=== PATIENT | male | born 1985 | race Caucasian/White ===

== ENCOUNTER 2024-01-20 18:26 | Emergency (ER) | payer BC ==
[2024-01-20] MEDS ORDERED: ONDANSETRON 4 MG/2 ML VIAL ONE (19:20)
[2024-01-20] MEDS ORDERED: MORPHINE 4 MG/ML SYR ONE ×3 (19:20→23:42)
[2024-01-20] MEDS ORDERED: FAMOTIDINE 20 MG/2 ML VIAL IV ONE (19:20)
[2024-01-20 19:32] LABS: Absolute Basophils 0.1 K/uL (0-0.5); Absolute Eosinophils 0.2 K/uL (0-0.5); Absolute Lymphocytes (CBC) 3.3 K/uL (0.7-4.9); Absolute Monocytes 0.6 K/uL (0.1-1.3); Absolute Neutrophil 3.7 K/uL (1.8-8.0); Basophils % 1.1 % (0-1.3); Eosinophils % 3.1 % (0-4.4); Hemoglobin 11.2 g/dL (13.6-17.9); MCH 27.3 pg (27.0-35.0); MCHC 32.9 g/dL (32.0-36.0); MPV 7.7 fL (7.6-11.3); Monocytes % 7.6 % (3.3-12.3); Neutrophils % 46.2 % (41.7-73.7); Nucleated Red Blood Cells % 0.1 % (0-0); Platelets 367 thou/uL (152-406); RBC Red Blood Cell Count 4.09 M/uL (4.33-5.43); Red Cell Distribution Width 16.4 % (12.1-15.2)
[2024-01-20 19:54] LABS: Albumin 3.4 g/dL (3.4-5.0); Albumin/Globulin Ratio 0.9 (1.1-1.8); Anion Gap 9.7 mEq/L (5.0-15.0); Bilirubin Total 0.3 mg/dL (0.2-1.0); Potassium 3.7 mEq/L (3.5-5.1); Protein, Total 7.4 g/dL (6.4-8.2)
[2024-01-20] MEDS ORDERED: FENTANYL CITR 100 MCG/2 ML ONE (20:26)
--- NOTE | 2024-01-20 21:08 | RAD REPORT ---
EXAMINATION: CT Abdomen Pelvis W Contrast CLINICAL INDICATION: Male, 38 years old. ABD PAIN TECHNIQUE: CT abdomen and pelvis was performed, after the administration of IV contrast, as per [facility] protocol. Axial, sagittal and coronal reconstructions were obtained. One or more of the following dose reduction techniques were used: Automated exposure control, adjustment of the mA and k V according to patient size, and iterative reconstruction. Unless otherwise specified, incidental findings do not require dedicated imaging follow-up. COMPARISON: No prior exam. FINDINGS: LOWER CHEST: The visualized lung bases are clear. LIVER: Normal in size and contour. No focal lesion. BILIARY SYSTEM: Status post cholecystectomy. SPLEEN: Normal size. No focal lesion. PANCREAS: No mass, ductal dilation, or kaylan-pancreatic fluid. ADRENALS: Normal; no mass. KIDNEYS: Normal size and contour. No hydronephrosis. URINARY BLADDER: Unremarkable. GASTROINTESTINAL TRACT: No evidence of free air, significant intra-abdominal free fluid, bowel obstru ction or abscess. APPENDIX: Appendix surgically absent. LYMPH NODES: No lymphadenopathy. MUSCULOSKELETAL: No acute or suspicious osseous abnormality. ADDITIONAL FINDINGS: None. IMPRESSION: No acute or concerning abnormalities seen in the abdomen or pelvis. Status post cholecystectomy and appendicectomy.
--- NOTE | 2024-01-21 01:40 | EDPHYS ---
Physician Documentation [facility] Name: Justice Joshi Age: 38 yrs Sex: Male : 1985 Arrival Date: 01/20/2024 Time: 18:26 Bed 8 Private MD: ED Physician Joey Hyde HPI: 01/19 19:47 This 38 yrs old Male presents to ER via Ambulatory with complaints of Abdominal Pain, ms3 Constipation, Vomiting. 19:47 38-year-old male with past medical history of chronic pancreatitis, asthma, anxiety ms3 presents to the emergency department for abdominal pain, nausea, vomiting. Patient states the pain is located in his left upper quadrant. He rates the pain a 9/10. He states the pain has been present for 2 weeks. He denies any alleviating or inciting factors. Patient states he had a pancreatic duct stent placed on December 20, 2023. Patient was recently admitted to [facility] on January 12, 2024 for a small bowel obstruction. Historical: - Allergies: 18:57 PENICILLINS; hb - Home Meds: 18:57 Creon oral [Active]; Albuterol Inhl [Active]; Alprazolam Oral [Active]; Bentyl Oral hb [Active]; Hydromorphone Oral [Active]; - PMHx: 18:57 Chronic Pancreatitis; hb - PSHx: 18:57 Pancreatic Stent; Cholecystectomy; Hernia Repair; Cholecystectomy; Appendectomy; hb - Immunization history:: Adult Immunizations up to date. - Infectious Disease History:: Denies. - Social history:: Smoking status: Patient reports the use of cigarette tobacco products. ROS: 19:47 Constitutional: Negative for fever, and chills. Cardiovascular: Negative for chest ms3 pain, and palpitations. Respiratory: Negative for shortness of breath, cough, wheezing, and pleuritic chest pain, 19:47 MS/Extremity: Negative for injury and deformity, Skin: Negative for injury, rash, and discoloration, 19:47 Abdomen/GI: Positive for abdominal pain, nausea and vomiting, constipation, Exam: 19:47 Constitutional: This is a well developed, well nourished patient who is awake, alert, ms3 and in no acute distress. Cardiovascular: Regular rate and rhythm with a normal S1 and S2. No gallops, murmurs, or rubs. Normal PMI, no JVD. No pulse deficits. Respiratory: Lungs have equal breath sounds bilaterally, clear to auscultation and percussion. No rales, rhonchi or wheezes noted. No increased work of breathing, no retractions or nasal flaring. Abdomen/GI: Soft, non-tender, with normal bowel sounds. No distension or tympany. No guarding or rebound. No evidence of tenderness throughout. Skin: Warm, dry with normal turgor. Normal color with no rashes, no lesions, and no evidence of cellulitis. Vital Signs: 18:55 BP 149 / 101; Pulse 80; Resp 16; Temp 98.9(O); Pulse Ox 98% on R/A; Weight 58.97 kg; hb Height 6 ft. 0 in. ; Pain 10/10; 20:34 BP 140 / 91; Pulse 57; Resp 18; Pulse Ox 97% ; Pain 10/10; br2 21:07 BP 134 / 85; Pulse 56; Resp 18 S; Pulse Ox 96% on R/A; br2 22:02 BP 143 / 84; Pulse 57; Resp 16 S; Pulse Ox 97% on R/A; lg3 23:45 BP 129 / 88; Pulse 63; Resp 18 S; Pulse Ox 99% on R/A; Pain 8/10; br2 18:55 Body Mass Index 17.63 (58.97 kg, 182.88 cm) hb 18:55 Pain Scale: Adult hb 20:34 Pain Scale: Adult br2 23:45 Pain Scale: Adult br2 MDM: 18:50 Patient medically screened. ms3 19:47 Differential diagnosis: Nonspecific abd pain, pancreatitis, Bowel obstruction. ms3 20:08 Transition of care: After a detail discussion of the patient's case, care is ms3 transferred to Joey Hyde MD. 01/20 03:37 Data reviewed: vital signs, nurses notes, lab test result(s), EKG, radiologic studies. rt Consideration of Admission/Observation Escalation of care including admission/observation considered. Patient requires transfer for GI care. Management of patient was discussed with the following: Returns Supervisor: Discussed with Dr. Araiza, states that patient may require biliary stent exchange and thus would require transfer. I considered the following discharge prescriptions or medication management in the emergency department Medications were administered in the Emergency Department. See MAR. Independent interpretation of the following test(s) in the Emergency Department CT Scan: My interpretation is No bowel obstructions and interpretation of CT scan images. Care significantly affected by the following chronic conditions: Chronic pancreatitis. Counseling: I had a detailed discussion with the patient and/or guardian regarding the historical points, exam findings, and any diagnostic results supporting the discharge/admit diagnosis, lab results, radiology results, the need to transfer to another facility. 01/19 18:46 Order name: CBC with Diff; Complete Time: 19:49 ms3 01/19 18:46 Order name: CMP; Complete Time: 19:55 ms3 01/19 18:46 Order name: Lipase; Complete Time: 19:55 ms3 01/19 18:46 Order name: CT Abd/Pelvis - IV Contrast Only; Complete Time: 21:11 ms3 01/19 18:46 Order name: IV Saline Lock; Complete Time: 19:32 ms3 01/19 18:46 Order name: Labs collected and sent; Complete Time: 19:32 ms3 Administered Medications: 01/19 19:31 Drug: Ondansetron IVP 4 mg IVP once; over 2 minutes Route: IVP; Site: left forearm; br2 21:08 Follow up: Response: No adverse reaction br2 19:31 Drug: morphine IVP or IV 4 mg IVP once over 4 mins Route: IVP; Infused Over: 4 mins; br2 Site: left forearm; 20:10 Follow up: Response: No adverse reaction; Pain is unchanged, physician notified br2 19:32 Drug: Famotidine IVP 20 mg IVP once; dilute with 10 mL 0.9% NaCl; give over 2 minutes br2 Route: IVP; Site: left forearm; 21:08 Follow up: Response: No adverse reaction br2 20:34 Drug: fentaNYL (PF) IVP 100 mcg IVP once Route: IVP; Site: left forearm; br2 21:07 Follow up: BP 134 / 85; Pulse 56 bpm; Resp 18 bpm Spontaneous; Pulse Ox 96% RA br2 21:56 Drug: morphine IVP or IV 4 mg IVP once over 4 mins Route: IVP; Infused Over: 4 mins; lg3 Site: left forearm; 22:30 Follow up: Response: No adverse reaction; Pain is decreased br2 23:44 Drug: morphine IVP or IV 4 mg IVP once over 4 mins Route: IVP; Infused Over: 4 mins; br2 Site: left forearm; 01/20 00:32 Follow up: Response: No adverse reaction; Pain is decreased br2 Disposition Summary: 01/21/24 01:39 Transfer Ordered Notes: Transfer Location: [facility] rt Reason: Higher level of care rt Condition: Fair rt Problem: an ongoing problem rt Symptoms: have improved rt Accepting Physician: Dr. Marr(01/21/24 02:39) vc1 Diagnosis - Chronic Pancreatitis rt - intractable pain rt Forms: - Medication Reconciliation Form rt - SBAR form rt Signatures: Dispatcher [employer] EDMS Elvi Valadez, RN RN Jessica Wiggins RN RN lg3 Gianfranco Collier DO DO ms3 Yanelis Porter RN RN vc1 Joey Hyde MD MD rt Lora Jones RN RN br2 Corrections: (The following items were deleted from the chart) 01/19 18:46 18:46 Abdomen Pelvis W Con+CT.RAD.BRZ ordered. EDME EDMS 01/20 02:39 01:39 Dr. Marr rt vc1
--- NOTE | 2024-01-21 01:40 | ER ---
Nurse's Notes [facility] Name: Justice Joshi Age: 38 yrs Sex: Male : 1985 Arrival Date: 01/20/2024 Time: 18:26 Bed 8 Private MD: Diagnosis: Chronic Pancreatitis;intractable pain Presentation: 01/19 18:55 Chief complaint: LUQ pain and N/V x 2 weeks. Coronavirus screen: At this time, the hb client does not indicate any symptoms associated with coronavirus-19. Ebola Screen: No symptoms or risks identified at this time. Initial Sepsis Screen: Does the patient meet any 2 criteria? No. Patient's initial sepsis screen is negative. Does the patient have a suspected source of infection? No. Patient's initial sepsis screen is negative. Risk Assessment: Do you want to hurt yourself or someone else? Patient reports no desire to harm self or others. Onset of symptoms was January 06, 2024. 18:55 Method Of Arrival: Ambulatory hb 18:55 Acuity: JOE 3 hb Historical: - Allergies: 18:57 PENICILLINS; hb - Home Meds: 18:57 Creon oral [Active]; Albuterol Inhl [Active]; Alprazolam Oral [Active]; Bentyl Oral hb [Active]; Hydromorphone Oral [Active]; - PMHx: 18:57 Chronic Pancreatitis; hb - PSHx: 18:57 Pancreatic Stent; Cholecystectomy; Hernia Repair; Cholecystectomy; Appendectomy; hb - Immunization history:: Adult Immunizations up to date. - Infectious Disease History:: Denies. - Social history:: Smoking status: Patient reports the use of cigarette tobacco products. Screenin:02 [facility] ED Fall Risk Assessment (Adult) History of falling in the last 3 months, lg3 including since admission No falls in past 3 months (0 pts) Confusion or Disorientation No (0 pts) Intoxicated or Sedated No (0 pts) Impaired Gait No (0 pts) Mobility Assist Device Used No (0 pt) Altered Elimination No (0 pt) Score/Fall Risk Level 0 - 2 = Low Risk Oriented to surroundings, Maintained a safe environment, Educated pt \T\ family on fall prevention, incl call for assistance when getting out of bed, Assessed \T\ reinforced patient's understanding of fall precautions, Provided non-skid footwear. Abuse screen: Denies threats or abuse. Denies injuries from another. Nutritional screening: No deficits noted. Tuberculosis screening: No symptoms or risk factors identified. Assessment: 19:11 Reassessment: Patient and/or family updated on plan of care and expected duration. Pain br2 level reassessed. Patient is alert, oriented x 3, equal unlabored respirations, skin warm/dry/pink. Reassessment: PT IS S/P PANCREATIC DUCT PLACEMENT ON Dec [facility]. NAUSEA/VOMITING FOR 2 WEEKS. HASN'T HAD A BM SINCE PROCEDURE, CHILLS AT NIGHT. TENDERNESS TO LUQ THAT RADIATES TO LEFT MID BACK. General: Appears uncomfortable, slender, Behavior is calm, cooperative. Pain: Complains of pain in left upper quadrant Pain radiates to left mid back Pain currently is 10 out of 10 on a pain scale. Quality of pain is described as sharp, Pain began 2-3 days ago. GI: Bowel sounds hypoactive in right upper quadrant, left upper quadrant, right lower quadrant and left lower quadrant Abdomen is tender to palpation in left upper quadrant Reports upper abdominal pain. 22:02 Reassessment: Patient appears in no apparent distress at this time. No changes from lg3 previously documented assessment. Patient and/or family updated on plan of care and expected duration. Pain level reassessed. Patient is alert, oriented x 3, equal unlabored respirations, skin warm/dry/pink. Vital Signs: 18:55 BP 149 / 101; Pulse 80; Resp 16; Temp 98.9(O); Pulse Ox 98% on R/A; Weight 58.97 kg; hb Height 6 ft. 0 in. ; Pain 10/10; 20:34 BP 140 / 91; Pulse 57; Resp 18; Pulse Ox 97% ; Pain 10/10; br2 21:07 BP 134 / 85; Pulse 56; Resp 18 S; Pulse Ox 96% on R/A; br2 22:02 BP 143 / 84; Pulse 57; Resp 16 S; Pulse Ox 97% on R/A; lg3 23:45 BP 129 / 88; Pulse 63; Resp 18 S; Pulse Ox 99% on R/A; Pain 8/10; br2 18:55 Body Mass Index 17.63 (58.97 kg, 182.88 cm) hb 18:55 Pain Scale: Adult hb 20:34 Pain Scale: Adult br2 23:45 Pain Scale: Adult br2 ED Course: 18:32 Patient arrived in ED. im 18:34 Gianfranco Collier DO is Attending Physician. ms3 18:57 Triage completed. hb 19:00 Report received from KINDRA RN. br2 19:04 Arm band placed on. hb 19:05 Lora Jones, ISAAK is Primary Nurse. br2 19:30 Inserted saline lock: 22 gauge in left forearm, using aseptic technique. Blood lg3 collected. Flushed with 10 mL NS. 19:32 CBC with Diff Sent. br2 19:32 CMP Sent. br2 19:32 Lipase Sent. br2 20:05 Attending Physician role handed off by Gianfranco Collier DO rt 20:05 Joey Hyde MD is Attending Physician. rt 20:28 CT Abd/Pelvis - IV Contrast Only In Process Unspecified. EDMS 22:02 Patient has correct armband on for positive identification. Bed in low position. Call lg3 light in reach. Side rails up X 1. Client placed on continuous cardiac and pulse oximetry monitoring. NIBP monitoring applied. awake overnight monitor on. Door closed. Noise minimized. Warm blanket given. Pillow given. 23:45 transfer approval from receiving facility. br2 01/20 02:38 Provided Education on: safety, transfer. vc1 02:38 No provider procedures requiring assistance completed. Patient transferred, IV remains vc1 in place. Administered Medications: 01/19 19:31 Drug: Ondansetron IVP 4 mg IVP once; over 2 minutes Route: IVP; Site: left forearm; br2 21:08 Follow up: Response: No adverse reaction br2 19:31 Drug: morphine IVP or IV 4 mg IVP once over 4 mins Route: IVP; Infused Over: 4 mins; br2 Site: left forearm; 20:10 Follow up: Response: No adverse reaction; Pain is unchanged, physician notified br2 19:32 Drug: Famotidine IVP 20 mg IVP once; dilute with 10 mL 0.9% NaCl; give over 2 minutes br2 Route: IVP; Site: left forearm; 21:08 Follow up: Response: No adverse reaction br2 20:34 Drug: fentaNYL (PF) IVP 100 mcg IVP once Route: IVP; Site: left forearm; br2 21:07 Follow up: BP 134 / 85; Pulse 56 bpm; Resp 18 bpm Spontaneous; Pulse Ox 96% RA br2 21:56 Drug: morphine IVP or IV 4 mg IVP once over 4 mins Route: IVP; Infused Over: 4 mins; lg3 Site: left forearm; 22:30 Follow up: Response: No adverse reaction; Pain is decreased br2 23:44 Drug: morphine IVP or IV 4 mg IVP once over 4 mins Route: IVP; Infused Over: 4 mins; br2 Site: left forearm; 01/20 00:32 Follow up: Response: No adverse reaction; Pain is decreased br2 Medication: 02:38 VIS not applicable for this client. vc1 Outcome: 01:39 ER care complete, transfer ordered by . rt 02:38 Transferred by ground EMS to [facility], Transfer form vc1 completed. X-rays sent w/ patient. 02:38 Condition: good 02:38 Instructed on the need for transfer, 02:39 Patient left the ED. vc1 Signatures: Dispatcher [employer] EDMS Elvi Valadez RN Jessica Reddy RN RN lg3 Gianfranco Collier, DO ms3 Yanelis Porter RN RN vc1 Joey Hyde MD MD rt Raquel Baca Belinda, RN RN br2 Corrections: (The following items were deleted from the chart) 01/19 19:32 19:31 Famotidine IVP 20 mg IVP in left antecubital br2 br2
[2024-01-21 03:21] VITALS: BP 129/88; O2SAT 99
== END 2024-01-21 02:39 | disposition short-term general hospital (02) ==
LOC: ER 18:26
DX: K86.1 Other chronic pancreatitis (principal); Z96.89 Presence of other specified functional implants; Z72.0 Tobacco use
CPT/HCPCS: 85025; 36415; 83690; 80053; 74177; Q9967; J3010; J2405

== ENCOUNTER 2024-01-23 17:19 | Emergency (ER) | payer BC ==
[2024-01-23] MEDS ORDERED: KETOROLAC 30 MG/ML INJ ONE (17:47)
[2024-01-23 17:53] LABS: Absolute Basophils 0.1 K/uL (0-0.5); Absolute Eosinophils 0.2 K/uL (0-0.5); Absolute Lymphocytes (CBC) 2.6 K/uL (0.7-4.9); Absolute Monocytes 0.7 K/uL (0.1-1.3); Absolute Neutrophil 4.1 K/uL (1.8-8.0); Basophils % 0.8 % (0-1.3); Hematocrit 37.6 % (39.6-49.0); Hemoglobin 12.3 g/dL (13.6-17.9); Lymphocytes % 34.4 % (15.3-44.8); MCH 27.2 pg (27.0-35.0); MCHC 32.6 g/dL (32.0-36.0); MCV 83.5 fL (80-100); MPV 7.8 fL (7.6-11.3); Monocytes % 8.9 % (3.3-12.3); Neutrophils % 53.9 % (41.7-73.7); Platelets 448 thou/uL (152-406); RBC Red Blood Cell Count 4.51 M/uL (4.33-5.43); Red Cell Distribution Width 16.1 % (12.1-15.2)
[2024-01-23] MEDS ORDERED: MORPHINE 4 MG/ML SYR ONE ×2 (18:07→19:15)
[2024-01-23 18:10] LABS: ALT/SGPT 33 U/L (16-61); AST/SGOT 16 U/L (15-37); Alkaline Phosphatase 73 U/L (45-117); BUN Blood Urea Nitrogen 14 mg/dL (7-18); Bicarbonate 28 mEq/L (21-32); Bilirubin Total 0.3 mg/dL (0.2-1.0); Globulin 4.1 g/dL (2.3-3.5); Glomerular Filtration Rate 104 ml/min (=/>90); Glucose Level 111 mg/dL (74-106); Lipase 101 U/L (13-75); Protein, Total 8.1 g/dL (6.4-8.2); Sodium Level 140 mEq/L (136-145); Troponin High Sensitivity 3.6 pg/mL (<58.9)
[2024-01-23 18:13] LABS: Bilirubin Direct < 0.2 mg/dL (0-0.2); Bilirubin Indirect, Calculated 0.1 mg/dL (0.2-0.8)
--- NOTE | 2024-01-23 18:16 | RAD REPORT ---
Procedure: Chest Single View History: Chest pain Comparison: none Findings: The lungs are hyperaerated. The lungs appear clear of acute infiltrate. No significant pleural effusion noted. The heart is normal size. IMPRESSION: No acute abnormality is displayed.
--- NOTE | 2024-01-23 20:13 | RAD REPORT ---
EXAMINATION: CTA CHEST PE CLINICAL INDICATION: Chest pain TECHNIQUE: 100 cc 370 Isovue administered intravenously. This examination was performed according to an angiographic protocol with 3D post-processing. This involves 3D reconstructions, MIPs, volume rendered images and/or shaded surface rendering. One or more of the following dose reduction techniqu es were used: Automated exposure control, adjustment of the mA and/or kV according to patient size, and/or iterative reconstruction. Unless otherwise specified, incidental findings do not require dedic ated imaging follow-up. [id number]. COMPARISON: No prior exam. FINDINGS: A pulmonary embolus is not seen. The aortic root measures 4.5 cm. No pleural effusion. No pericardial effusion. Lungs are clear. 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
--- NOTE | 2024-01-23 20:55 | EDPHYS ---
Physician Documentation [facility] Name: Justice Joshi Age: 38 yrs Sex: Male : 1985 Arrival Date: 01/23/2024 Time: 17:19 Bed 14 Private MD: ED Physician Spike Jain HPI: 01/22 17:54 This 38 yrs old Male presents to ER via Ambulatory with complaints of chest pain. rt 17:54 Patient presents to the ED with chest pain, radiating to the back. Patient states that rt he feels that his heart is racing when he stands up. He denies other acute complaints at this time, symptoms are moderate in severity, no other aggravating relieving factors.. Historical: - Allergies: 17:32 PENICILLINS; mb9 - Home Meds: 17:32 Hydromorphone Oral [Active]; mb9 - PMHx: 17:32 Chronic Pancreatitis; mb9 - PSHx: 17:32 Cholecystectomy; Appendectomy; Cholecystectomy; hernia repair; pancreatic stent; mb9 - Immunization history:: Adult Immunizations up to date. - Infectious Disease History:: Denies. - Social history:: Smoking status: Patient denies any tobacco usage or history of. - Family history:: not pertinent. ROS: 17:54 Constitutional: Negative for fever, chills, and weight loss, Respiratory: Negative for rt shortness of breath, cough, wheezing, and pleuritic chest pain, Abdomen/GI: Negative for abdominal pain, nausea, vomiting, diarrhea, and constipation, MS/Extremity: Negative for injury and deformity, Skin: Negative for injury, rash, and discoloration, Neuro: Negative for headache, weakness, numbness, tingling, and seizure, 17:54 Cardiovascular: Positive for chest pain, palpitations, Exam: 17:54 Constitutional: This is a well developed, well nourished patient who is awake, alert, rt and in no acute distress. Head/Face: Normocephalic, atraumatic. Chest/axilla: Normal chest wall appearance and motion. Nontender with no deformity. No lesions are appreciated. Cardiovascular: Regular rate and rhythm with a normal S1 and S2. No gallops, murmurs, or rubs. Normal PMI, no JVD. No pulse deficits. Respiratory: Lungs have equal breath sounds bilaterally, clear to auscultation and percussion. No rales, rhonchi or wheezes noted. No increased work of breathing, no retractions or nasal flaring. Abdomen/GI: Soft, non-tender, with normal bowel sounds. No distension or tympany. No guarding or rebound. No evidence of tenderness throughout. Skin: Warm, dry with normal turgor. Normal color with no rashes, no lesions, and no evidence of cellulitis. MS/ Extremity: Pulses equal, no cyanosis. Neurovascular intact. Full, normal range of motion. Neuro: Awake and alert, GCS 15, oriented to person, place, time, and situation. Cranial nerves II-XII grossly intact. Motor strength 5/5 in all extremities. Sensory grossly intact. Cerebellar exam normal. Normal gait. 18:07 ECG was reviewed by the Attending Physician. rt Vital Signs: 17:30 BP 149 / 95; Pulse 74; Resp 16; Temp 98; Pulse Ox 100% on R/A; mb9 18:22 BP 144 / 99; Pulse 77; Resp 17; Pulse Ox 99% on R/A; rs5 19:00 BP 144 / 118; Pulse 69; Resp 18; Pulse Ox 98% ; cp4 19:30 BP 97 / 83; Pulse 66; Resp 18; Pulse Ox 97% ; cp4 20:57 BP 113 / 86; Pulse 67; Resp 18; Pulse Ox 99% ; cp4 [place] Coma Score: 01/23 04:35 Eye Response: spontaneous(4). Motor Response: obeys commands(6). Verbal Response: sp4 oriented(5). Total: 15. MDM: 01/22 17:35 Patient medically screened. rt 17:36 Patient medically screened. rt 01/23 04:36 Differential Diagnosis altered mental status, sepsis, flu, Pancreatitis . Data sp4 reviewed: vital signs, nurses notes, old medical records, lab test result(s), EKG, radiologic studies, CT scan. Consideration of Admission/Observation Escalation of care including admission/observation considered. ED course: Patient was informed that he has unusual findings of dilated aortic root on his CT. Placed follow-up with additional Vascular Surgery. . ED course: EXAMINATION: CTA CHEST PE CLINICAL INDICATION: Chest pain TECHNIQUE: 100 cc 370 Isovue administered intravenously. This examination was performed according to an angiographic protocol with 3D post-processing. This involves 3D reconstructions, MIPs, volume rendered images and/or shaded surface rendering. One or more of the following dose reduction techniques were used: Automated exposure control, adjustment of the mA and/or kV according to patient size, and/or iterative reconstruction. Unless otherwise specified, incidental findings do not require dedicated imaging follow-up. [id number]. COMPARISON: No prior exam. FINDINGS: A pulmonary embolus is not seen. The aortic root measures 4.5 cm. No pleural effusion. No pericardial effusion. Lungs are clear. 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 ED course: Was advised to transfer to [facility] for additional evaluation. Patient declined and decided to go home. Form Informed discharge was provided. 01/22 17:41 Order name: Basic Metabolic Panel; Complete Time: 18:14 rt 01/22 17:41 Order name: CBC with Diff; Complete Time: 18:02 rt 01/22 17:41 Order name: LFT's; Complete Time: 18:14 rt 01/22 17:41 Order name: Troponin HS; Complete Time: 18:14 rt 01/22 17:41 Order name: Lipase; Complete Time: 18:14 rt 01/22 19:10 Order name: Troponin High Sensitivity; Complete Time: 19:46 rt 01/22 17:41 Order name: XRAY Chest (1 view); Complete Time: 18:29 rt 01/22 19:10 Order name: CT Chest For PE Angio; Complete Time: 20:16 rt 01/22 17:41 Order name: EKG; Complete Time: 17:41 rt 01/22 17:41 Order name: Cardiac monitoring; Complete Time: 17:47 rt 01/22 17:41 Order name: EKG - Nurse/Tech; Complete Time: 17:47 rt 01/22 17:41 Order name: IV Saline Lock; Complete Time: 17:47 rt 01/22 17:41 Order name: Labs collected and sent; Complete Time: 17:47 rt 01/22 17:41 Order name: O2 Per Protocol; Complete Time: 17:47 rt 01/22 17:41 Order name: O2 Sat Monitoring; Complete Time: 17:47 rt EC/11 18:07 Rate is 70 beats/min. Rhythm is regular, Normal Sinus Rhythm with No ectopy, LVH rt present. QRS [place] is Normal. AL interval is normal. QRS interval is normal. QT interval is normal. No Q waves. T waves are Normal. No ST changes noted. Interpreted by me. Administered Medications: 17:50 Drug: Ketorolac IVP 15 mg IVP once Route: IVP; Site: left forearm; rs5 18:12 Follow up: Response: No adverse reaction; Pain is unchanged, physician notified rs5 18:14 Drug: morphine IVP or IV 4 mg IVP once over 4 mins Route: IVP; Infused Over: 4 mins; rs5 Site: left forearm; 18:21 Follow up: Response: No adverse reaction; Pain is decreased rs5 19:22 Drug: morphine IVP or IV 4 mg IVP once over 4 mins Route: IVP; Infused Over: 4 mins; cp4 Site: right forearm; 19:40 Follow up: Response: No adverse reaction; Pain is decreased cp4 Disposition Summary: 01/23/24 20:54 Discharge Ordered Problem: new sp4 Symptoms: have improved sp4 Condition: Stable sp4 Diagnosis - Chest pain, unspecified sp4 - Aortic Root Dilation , Non cardiac chest pain sp4 Followup: sp4 - With: Abhay Linn MD - When: 7 - 10 days - Reason: Recheck today's complaints Discharge Instructions: - Discharge Summary Sheet sp4 - Nonspecific Chest Pain, Adult, [id number] sp4 Forms: - Patient Portal Instructions sp4 Signatures: Dispatcher [employer] Rasheeda Beyer RN RN mb9 Joey Hyde MD MD rt Gamaliel Arce RN RN rs5 Spike Jain MD MD sp4 Desirae Trinh cp4
--- NOTE | 2024-01-23 20:55 | ER ---
Nurse's Notes [facility] Name: Justice Joshi Age: 38 yrs Sex: Male : 1985 Arrival Date: 01/23/2024 Time: 17:19 Bed 14 Private MD: Diagnosis: Chest pain, unspecified;Aortic Root Dilation , Non cardiac chest pain Presentation: 01/22 17:30 Chief complaint: EMS states: "toned out for chest pain that started today and radiates mb9 to left side of back. Pt states he's had urinary frequency with little output for the past week.". Coronavirus screen: Vaccine status: Patient reports being unvaccinated. Ebola Screen: No symptoms or risks identified at this time. Initial Sepsis Screen: Does the patient meet any 2 criteria? No. Patient's initial sepsis screen is negative. Does the patient have a suspected source of infection? No. Patient's initial sepsis screen is negative. Risk Assessment: Do you want to hurt yourself or someone else? Patient reports no desire to harm self or others. Onset of symptoms was January 23, 2024. 17:30 Acuity: JOE 3 mb9 17:30 Method Of Arrival: Ambulatory mb9 Historical: - Allergies: 17:32 PENICILLINS; mb9 - Home Meds: 17:32 Hydromorphone Oral [Active]; mb9 - PMHx: 17:32 Chronic Pancreatitis; mb9 - PSHx: 17:32 Cholecystectomy; Appendectomy; Cholecystectomy; hernia repair; pancreatic stent; mb9 - Immunization history:: Adult Immunizations up to date. - Infectious Disease History:: Denies. - Social history:: Smoking status: Patient denies any tobacco usage or history of. - Family history:: not pertinent. Screenin:26 [facility] ED Fall Risk Assessment (Adult) History of falling in the last 3 months, rs5 including since admission No falls in past 3 months (0 pts) Confusion or Disorientation No (0 pts) Intoxicated or Sedated No (0 pts) Impaired Gait No (0 pts) Mobility Assist Device Used No (0 pt) Altered Elimination No (0 pt) Score/Fall Risk Level 0 - 2 = Low Risk Oriented to surroundings, Maintained a safe environment. Abuse screen: Denies threats or abuse. Nutritional screening: No deficits noted. Tuberculosis screening: No symptoms or risk factors identified. Assessment: 17:26 General: Appears distressed, uncomfortable, Behavior is calm, cooperative. Pain: rs5 Complains of pain in chest Pain currently is 8 out of 10 on a pain scale. Quality of pain is described as aching, Is continuous. Neuro: Level of Consciousness is awake, alert, obeys commands, Oriented to person, place, time, situation. Cardiovascular: Patient's skin is warm and dry. Respiratory: Airway is patent Respiratory effort is even, unlabored, Respiratory pattern is regular, symmetrical. GI: Abdomen is round non-distended, Abd is soft and non tender X 4 quads. : No signs and/or symptoms were reported regarding the genitourinary system. EENT: No signs and/or symptoms were reported regarding the EENT system. Derm: Skin is intact, Skin is pink, warm \\T\\ dry. Musculoskeletal: Range of motion: intact in all extremities. 18:21 Reassessment: Patient and/or family updated on plan of care and expected duration. Pain rs5 level reassessed. Patient is alert, oriented x 3, equal unlabored respirations, skin warm/dry/pink. 19:00 Reassessment: Patient requesting pain medication. Provider notified. cp4 20:44 Reassessment: Patient states he is ready to go elsewhere due to still being in pain. cp4 Provider notified. Vital Signs: 17:30 BP 149 / 95; Pulse 74; Resp 16; Temp 98; Pulse Ox 100% on R/A; mb9 18:22 BP 144 / 99; Pulse 77; Resp 17; Pulse Ox 99% on R/A; rs5 19:00 BP 144 / 118; Pulse 69; Resp 18; Pulse Ox 98% ; cp4 19:30 BP 97 / 83; Pulse 66; Resp 18; Pulse Ox 97% ; cp4 20:57 BP 113 / 86; Pulse 67; Resp 18; Pulse Ox 99% ; cp4 Peterson Coma Score: 01/23 04:35 Eye Response: spontaneous(4). Motor Response: obeys commands(6). Verbal Response: sp4 oriented(5). Total: 15. ED Course: 01/22 17:25 Patient arrived in ED. rs5 17:26 Patient has correct armband on for positive identification. Placed in gown. Bed in low rs5 position. Call light in reach. Side rails up X2. 17:26 No provider procedures requiring assistance completed. rs5 17:29 Joey Hyde MD is Attending Physician. rt 17:32 Triage completed. mb9 17:33 Arm band placed on. mb9 17:33 Inserted saline lock: 22 gauge in left forearm, using aseptic technique. Blood mb9 collected. Flushed with 10 mL NS. 17:46 Lipase Sent. em1 17:46 Basic Metabolic Panel Sent. em1 17:46 CBC with Diff Sent. em1 17:46 LFT's Sent. em1 17:46 Troponin HS Sent. em1 17:46 Initial lab(s) drawn, by ne, sent to lab. Inserted saline lock: 20 gauge in right em1 forearm, using aseptic technique. Blood collected. Flushed with 10 mL NS. 17:52 Gamaliel Arce, RN is Primary Nurse. rs5 18:13 XRAY Chest (1 view) In Process Unspecified. EDMS 19:53 CT Chest For PE Angio In Process Unspecified. EDMS 20:21 Attending Physician role handed off by Joey Hyde MD sp4 20:21 Spike Jain MD is Attending Physician. sp4 20:53 Abhay Linn MD is Referral Physician. sp4 21:01 Provided Education on: chest pain. cp4 21:01 intact, bleeding controlled, No redness/swelling at site. Pressure dressing applied. cp4 Administered Medications: 17:50 Drug: Ketorolac IVP 15 mg IVP once Route: IVP; Site: left forearm; rs5 18:12 Follow up: Response: No adverse reaction; Pain is unchanged, physician notified rs5 18:14 Drug: morphine IVP or IV 4 mg IVP once over 4 mins Route: IVP; Infused Over: 4 mins; rs5 Site: left forearm; 18:21 Follow up: Response: No adverse reaction; Pain is decreased rs5 19:22 Drug: morphine IVP or IV 4 mg IVP once over 4 mins Route: IVP; Infused Over: 4 mins; cp4 Site: right forearm; 19:40 Follow up: Response: No adverse reaction; Pain is decreased cp4 Medication: 18:22 VIS not applicable for this client. rs5 Outcome: 20:54 Discharge ordered by . sp4 21:01 Discharged to home ambulatory, cp4 21:01 Condition: stable 21:01 Discharge instructions given to Patient left prior to receiving discharge papers. Instructed on 21:02 Patient left the ED. cp4 Signatures: Dispatcher [employer] Octavio Vicente em1 Rasheeda Coto, RN RN mb9 Joey Hyde MD MD rt Gamaliel Arce RN RN rs5 Spike Jain MD MD sp4 Desirae Trinh cp4 Corrections: (The following items were deleted from the chart) 18:19 17:50 Ketorolac IVP 15 mg IVP in left hand rs5 rs5 18:20 18:14 morphine IVP or IV 4 mg IVP in right forearm over 4 mins mb9 rs5
[2024-01-24 00:50] VITALS: TEMP 98
[2024-01-24 01:05] VITALS: BP 113/86; O2SAT 99
--- NOTE | 2024-01-29 12:16 | EKG ---
Test Date: 2024-01-23 Test Time: 18:00:36 Lead Programmer: JAQUELINE MEASUREMENT RESULTS: Intervals: Rate: 70 [place]: 100 QRSD: 96 QT: 362 QTc: 390 [place]: P: 45 MO: 100 QRS: 81 T: 63 INTERPRETIVE STATEMENTS: Sinus rhythm with short MO Voltage criteria for left ventricular hypertrophy Abnormal ECG No previous ECG available for comparison Electronically Signed On 01-29-24 12:00:55 CDT by William Woodall
== END 2024-01-23 21:02 | disposition home or self-care (01) ==
LOC: ER 17:19
DX: I77.819 Aortic ectasia, unspecified site (principal); R07.89 Other chest pain
CPT/HCPCS: 93005; 85025; 80048; 36415; 80076; 84484 ×2; 83690; 71275; 71045; Q9967; 99284

== ENCOUNTER 2024-01-28 15:12 | Inpatient (IN) | payer BC ==
--- OUTSIDE RECORDS SUMMARY | 2024-01-28 15:23 | XMS REPORT | Continuity of Care Document ---
Author Name Unknown Address [address] [facility] [place] [address] [facility] thconnect Address [address] [facility] [place] [address] Support Name Relationship Address Phone [place] [address] [place] [address] NONE, OTHER Personal Relationship [id number] [facility] [address] [place] [address] YOSELIN CHU OT [address] [place] [address] NONE, OTHER OT [address] [place] [address] NONE, SELF SA [address] [facility] [place] [address] NONE, PER PATIENT REQUEST SA [address] [place] [address] NONE, OTHER OT [address] [place] [address] NONE, NONE SA [address] [facility] [place] [address] NONE, GIVEN SA [address] [facility] [place] [address] WOOD OZUNA SI [address] [facility] [place] [address] KAREEN RIVAS OT [address] [place] [address] SADAF BENDER Personal Relationship [address] [place] [address] WILMER [place] [address] NONE, GIVEN Personal Relationship [address] [place] [address] NONE, GIVEN Personal Relationship [address] [place] [address] NONE, GIVEN SA [address] [place] [address] YOSELIN CHU OT [address] [place] [address] NONE, GIVEN SA [address] [place] [address] Care Team Providers Care Fruit Canner Name Role Phone Fahad Mock Attending Clinician Unavailable Edu Cantor Attending Clinician Unavailable Jerzy Day Attending Clinician UnavailHenry Hermosillo Attending Clinician Unavailable Thor Brown Attending Clinician Unavailable Jean Paul Lynch Attending Clinician Unavailabl Viktoriya Sylvester Attending Clinician Unavailabl Gt Marshall Attending Clinician Unavaila Michele Miller Attending Clinician Unavailable Aretha Diallo Attending Clinician Unavailable Preston Escobar Attending Clinician Unavailable Iggy Copeland Attending Clinician Unavailable Deep Berg Attending Clinician Unavailable Joselin Garcia Attending Clinician U navailable Physician, No Primary or Family Attending Clinic fang Unavailable Lelo Brand Attending Clinician Unavailab Musa Edmond Attending Clinician Unavailable Madi Clark Attending Clinician Unavail able Corie Casas Attending Clinician Unavailable Tha Grant Attending Clinician Unavailabl Emre Luo I Attending Clinician UnavailEdu Hector Attending Clinician Unavailable Sheikh Hurtado Attending Clinician Unavailable Chava Caputo Attending Clinician Unavailabl Ila Malik Attending Clinician Unavailable Fei Diaz Attending Clinician Unavailab Vin Plummer Attending Clinician Unavailable Thor Olmedo V Attending Clinician Unavailab Maurice Craig Attending Clinician Unavaila Loi Mccollum Attending Clinician Unavailabl e Physician, No Primary or Family Admitting Clinic fang Unavailable Fahad Mock Admitting Clinician Unavailable Jerzy Day Admitting Clinician UnavailHenry Hermosillo Admitting Clinician Unavailable Tan Zayas Admitting Clinician Unavailable Fei Henderson Admitting Clinician Unavailable Amrit Edmondson Admitting Clinician Unavailable Wade Walters Admitting Clinician Unavailable Preston Escobar Admitting Clinician Unavailable Robin Fernandez Admitting Clinician Unavailable Fani Gibson Admitting Clinician Unavailable Emre Dickson I Admitting Clinician UnavailGonzalez Aldridge Admitting Clinician Unavaila Sheikh Kim Admitting Clinician Unavailable Ila Horvath Admitting Clinician Unavailable Narciso Vee Admitting Clinician Unavailable Lio Wahl Admitting Clinician Unavailabl e Payers Payer Name Policy Type Policy Number Effective Date Expirati on Date Source Allergies, Adverse Reactions, Alerts Allergy Name Allergy Type Status Severity Reaction(s) Onset Date Inactive Date Treating Clinician Comments Source Penicill ins DA Active SV THROAT SWELLS UP 2023-0 9-28 00:00: 00 [facility] Penicill ins DA Active SV THROAT SWELLS UP 2023-0 9-04 00:00: 00 [facility] Penicill ins DA Active SV THROAT SWELLS UP 2023-0 3-18 00:00: 00 [facility] Penicill ins DA Active SV THROAT SWELLS UP 2023-0 3-14 00:00: 00 [facility] Penicill ins DA Active SV THROAT SWELLS UP 2021-0 9-12 00:00: 00 [facility] Penicill ins DA Active SV THROAT SWELLS UP 2020-1 0-18 00:00: 00 [facility] Penicill ins DA Active SV 2020-1 0-18 00:00: 00 [facility] Penicill ins DA Active SV 2020-0 1-20 00:00: 00 [facility] Penicill ins DA Active SV THROAT SWELLS UP 2020-0 1-20 00:00: 00 [facility] Penicill ins DA Active SV 2018-0 3-24 00:00: 00 [facility] Penicill ins DA Active SV THROAT SWELLS UP 2017-0 3-24 00:00: 00 [facility] Procedures Procedure Date / Time Performed Performing Clinicia n Source [id number] 2023-12-20 00:00:00 JESSICA [facility] [id number] 2023-12-20 00:00:00 NAKULZE [facility] [id number] 2023-10-24 00:00:00 ESE [facility] [id number] 2023-10-24 00:00:00 LEEGA [facility] [id number] 2023-06-30 00:00:00 JEROM [facility] [id number] 2023-06-30 00:00:00 JEROM [facility] [id number] 2023-06-30 00:00:00 JEROM [facility] [id number] 2023-02-06 00:00:00 ACHSI [facility] [id number] 2023-02-06 00:00:00 ACHSI [facility] [id number] 2023-02-06 00:00:00 [facility]CHSI [facility] [id number] 2023-02-06 00:00:00 [facility]CHSI [facility] [id number] 2022-11-11 00:00:[address] [facility] [id number] 2022-11-11 00:00:[address] [facility] Encounters Start Date/Time End Date/Time Encounter Type Admission Type Attending Clinicians Care Facility Care Department Encounter ID Source 2020-08-12 04:40:07 Inpatient HCABM HCABM [id number] 26 [facility] 2020-08-03 21:57:49 Inpatient HCABM HCABM [id number] 89 [facility] 2020-07-28 21:08:01 Inpatient HCABM HCABM [id number] 37 [facility] 2020-05-04 21:34:00 Inpatient HCABM SARAY [id number] 11 [facility] 2020-05-03 11:16:00 Inpatient HCABM SARAY [id number] 08 [facility] 2020-02-21 11:02:00 Inpatient HCACL SARAY [id number] 38 [facility] 2020-01-27 11:41:00 Inpatient EL Fahad Mock HCACL ADMI [id number] 37 [facility] 2020-01-07 11:04:00 Inpatient HCACL SARAY [id number] 06 [facility] 2019-10-06 18:49:00 Inpatient HCABM FERS [id number] 80 [facility] 2019-09-01 10:41:00 Inpatient Edu Mauricio HCABM OPLA [id number] 85 [facility] 2019-08-24 17:51:00 Inpatient HCABM FERS [id number] 53 [facility] 2019-08-23 16:57:00 Inpatient HCABM FERS [id number] 10 [facility] 2024-01-24 17:43:00 2024-01-27 12:44:00 Inpatient EM ShayJerzy HCACL MEDI.01 [id number] 61 [facility] 2024-01-12 09:20:00 2024-01-15 09:52:00 Inpatient EM Henry Mares HCACL MEDI.01 [id number] 60 [facility] 2023-12-18 10:42:00 2023-12-21 13:42:00 Inpatient EM CoreyhattieHenry nuñez HCACL MEDI.01 [id number] 45 [facility] 2023-12-09 15:16:00 2023-12-09 19:00:00 Emergency EM Thor Brown HCACL SARAY [id number] 82 [facility] 2023-12-02 16:11:00 2023-12-03 07:23:00 Inpatient EM Patrick Daytaco HCACL MEDI.01 [id number] 44 [facility] 2023-11-23 05:56:00 2023-11-23 11:33:00 Inpatient EM Jean Paul Lynch HCABM MEDI [id number] 72 [facility] 2023-11-01 22:55:00 2023-11-02 00:55:00 Emergency EM Viktoriya Sawyer HCABM SARAY [id number] 41 [facility] 2023-11-01 12:40:00 2023-11-01 15:16:00 Emergency EM Manish Russell Gt HCABM SARAY [id number] 70 [facility] 2023-11-01 00:38:00 2023-11-01 02:30:00 Emergency EM Michele Rowe HCABM SARAY [id number] 79 [facility] 2023-10-20 04:37:00 2023-10-24 10:13:00 Inpatient EM Aretha Diallo HCACL MEDI.01 [id number] 25 [facility] 2023-09-08 16:44:00 2023-09-08 17:04:00 Emergency EM Hammondprateek RussellGt [facility] [id number] 99 [facility] 2023-09-05 01:55:00 2023-09-05 08:27:00 Inpatient EM Preston Escobar [facility] [id number] 75 [facility] 2023-09-04 21:33:00 2023-09-04 23:52:00 Emergency EM Iggy Copeland HCABM SARAY [id number] 55 [facility] 2023-09-03 23:16:00 2023-09-04 09:01:00 Inpatient EM Preston Escobar [facility] [id number] 94 [facility] 2023-09-02 21:52:00 2023-09-03 01:51:00 Emergency EM Deep Berg HCACL SARAY [id number] 28 [facility] 2023-08-16 19:33:00 2023-08-17 00:58:00 Emergency EM Eugenia-Joselin Davis HCACL SARAY [id number] 71 [facility] 2023-08-10 12:38:00 2023-08-10 14:02:00 Emergency EM Gt Smallwood HCABM SARAY [id number] 59 [facility] 2023-07-31 22:25:00 2023-08-02 09:23:00 Inpatient EM Preston Escobar HCABM MEDI [id number] 78 [facility] 2023-07-26 18:38:00 2023-07-26 18:38:00 Outpatient Physician, Kristi HCACL LABO [id number] 17 [facility] 2023-07-25 23:45:00 2023-07-26 03:21:00 Emergency EM Lelo Brand HCACL SARAY [id number] 12 [facility] 2023-07-13 17:37:00 2023-07-14 08:06:00 Inpatient EM SuzanHenry HCACL MEDI.01 [id number] 91 [facility] 2023-07-08 14:23:00 2023-07-08 17:47:00 Emergency EM Gt Smallwood HCABM SARAY [id number] 46 [facility] 2023-07-06 21:11:00 2023-07-06 23:17:00 Emergency EM Musa Langford HCACL SARAY [id number] 90 [facility] 2023-07-03 20:52:00 2023-07-03 21:42:00 Emergency EM Madi Clark HCABM SARAY [id number] 92 [facility] 2023-06-30 13:31:00 2023-06-30 20:53:00 Inpatient EM Scottie Maresod HCACL INTE [id number] 35 [facility] 2023-06-26 18:51:00 2023-06-26 23:41:00 Emergency EM Augusto Corie HCABM SARAY [id number] 37 [facility] 2023-06-23 20:13:00 2023-06-23 22:15:00 Emergency EM Michele Rowe HCABM SARAY [id number] 31 [facility] 2023-06-17 12:05:00 2023-06-17 15:00:00 Emergency EM Rudy, Tha [facility] SARAY [id number] 22 [facility] 2023-06-14 15:28:00 2023-06-14 16:21:00 Emergency EM Gt Smallwood [facility] SARAY [id number] 25 [facility] 2023-05-13 21:55:00 2023-05-13 23:43:00 Emergency EM Madi Clark [facility] SARAY [id number] 03 [facility] 2023-04-24 23:07:00 2023-04-24 23:30:00 Emergency EM Viktoriya Sawyer [facility] [id number] 04 [facility] 2023-03-12 20:18:00 2023-03-13 00:08:00 Emergency EM Lelo Brand [facility] SARAY [id number] 14 [facility] 2023-02-06 23:23:00 2023-02-07 14:29:00 Inpatient EM Gilmar MurcianezEmre HCACL INTE [id number] [facility] 2023-02-02 16:43:00 2023-02-03 09:24:00 Inpatient EM Preston Escobar [facility] MEDI [id number] 83 [facility] 2023-01-30 18:15:00 2023-01-30 22:37:00 Emergency EM Michele Rowe [facility] SARAY [id number] 10 [facility] 2022-11-13 05:16:00 2022-11-13 05:16:00 Outpatient Edu Esteban [facility] DAYS [id number] 83 [facility] 2022-11-11 11:53:00 2022-11-12 08:33:00 Inpatient EM OrthodoxySheik panh [facility] INTE [id number] 11 [facility] 2022-10-31 21:15:00 2022-11-01 01:53:00 Emergency EM Al Caputoo [facility] SARAY [id number] 75 [facility] 2022-10-30 19:19:00 2022-10-30 22:20:00 Emergency EM Madi Clark HCABM SARAY [id number] 22 [facility] 2022-10-09 22:44:00 2022-10-10 00:48:00 Emergency EM Iggy Copeland [facility] [id number] 12 [facility] 2022-07-13 21:51:00 2022-07-15 12:29:00 Inpatient EM Ila Horvath [facility] [id number] 10 [facility] 2021-12-24 17:29:00 2021-12-24 21:23:00 Emergency EM Fei Diaz [facility] [id number] 94 [facility] 2021-04-24 05:15:00 2021-04-24 05:57:00 Emergency EM Vin Caldera [facility] F[facility] [id number] 75 [facility] 2021-03-05 01:21:00 2021-03-05 02:50:00 Emergency EM Jae Michele [facility] [id number] 79 [facility] 2021-01-29 16:51:00 2021-01-29 17:25:00 Inpatient EM Thor Olmedo [facility] F[facility] [id number] 26 [facility] 2019-09-01 13:08:00 2019-09-01 13:08:00 Outpatient Edu Cantor [facility] LABO [id number] 20 [facility] 2017-06-13 20:34:00 2017-06-13 20:53:00 Emergency EM Huggins, Maurice [facility] [id number] 99 [facility] 2014-02-13 12:41:00 2014-02-14 14:33:00 Inpatient Loi Gregory [facility] [id number] 37 [facility] Results Test Description Test Time Test Comments Results Result Co mments Source BASIC METABOLIC [id number] 05:57:00* Test Item Value Reference Range Interpretation Comme nts SODIUM (test code = NA) 141 mEq/L 134-147 N POTASSIUM (test code = K) 4.2 mEq/L 3.4-5.0 N CHLORIDE (test code = CL) 110 mEq/L 100-108 H CARBON DIOXIDE (test code = CO2) 25 mEq/l 21-33 N ANION GAP (test code = GAP) 10 0-20 N GLUCOSE (test code = GLU) 91 mg/dL 77-141 N BLOOD UREA NITROGEN (test code = BUN) 8 mg/dL 7-25 N GLOMERULAR FILTRATION RATE (test code = GFR) 111.4 105-110 H The Glomerular Filtration Rate is a calculated parameterbased on serum Creatinine, patient age and sex. GFR valuesless than 60 mL/min/1.73 square meters are indicative ofChronic Kidney Disease. Values less than 15 mL/min/1.73square meters indicate Kidney failure. The calculation forGFR is based on the CKD-EPI (202) calculation. This formulais race indifferent and is the recommended formula for GFRby the National Kidney Foundation for Adults.The GFR will not calculate if the sex is unknown or if thepatient's age is <18 years. CREATININE (test code = CREAT) 0.9 mg/dL 0.6-1.3 N CALCIUM (test code = CA) 7.8 mg/dL 8.0-10.5 L LACTIC [id number] 15:55:00* Test Item Value Reference Range Interpretation Comme nts LACTIC ACID (test code = LACT) 1.5 mmol/L 0.4-1.9 N BASIC METABOLIC [id number] 15:55:00* Test Item Value Reference Range Interpretation Comme nts SODIUM (test code = NA) 140 mEq/L 134-147 N POTASSIUM (test code = K) 3.6 mEq/L 3.4-5.0 N CHLORIDE (test code = CL) 107 mEq/L 100-108 N CARBON DIOXIDE (test code = CO2) 27 mEq/l 21-33 N ANION GAP (test code = GAP) 9 0-20 N GLUCOSE (test code = GLU) 92 mg/dL 77-141 N BLOOD UREA NITROGEN (test code = BUN) 10 mg/dL 7-25 N GLOMERULAR FILTRATION RATE (test code = GFR) 71.7 105-110 L The Glomerular Filtration Rate is a calculated parameterbased on serum Creatinine, patient age and sex. GFR valuesless than 60 mL/min/1.73 square meters are indicative ofChronic Kidney Disease. Values less than 15 mL/min/1.73square meters indicate Kidney failure. The calculation forGFR is based on the CKD-EPI (2020) calculation. This formulais race indifferent and is the recommended formula for GFRby the National Kidney Foundation for Adults.The GFR will not calculate if the sex is unknown or if thepatient's age is <18 years. CREATININE (test code = CREAT) 1.3 mg/dL 0.6-1.3 N CALCIUM (test code = CA) 9.3 mg/dL 8.0-10.5 N HEPATIC FUNCTION [id number] 15:55:00* Test Item Value Reference Range Interpretation Comme nts TOTAL PROTEIN (test code = PROT) 8.3 g/dL 6.4-8.2 H ALBUMIN (test code = ALB) 4.20 g/dL 3.4-5.0 N BILIRUBIN TOTAL (test code = BILT) 0.50 mg/dL 0.0-1.0 N BILIRUBIN DIRECT (test code = BILD) 0.20 MG/DL 0.1-0.3 N BILIRUBIN INDIRECT (test cod e = BILIND) 0.30 MG/DL SGOT/AST (test code = AST) 25 IUnit/L 8-34 N SGPT/ALT (test code = ALT) 31 IUnit/L 10-49 N ALKALINE PHOSPHATASE TOTAL ( test code = ALKP) 77 IUnit/L 20-125 N [id number] 15:55:00* Test Item Value Reference Range Interpretation Comme nts LIPASE (test code = LIP) 61 U/L 13-57 H PROTHROMBIN [id number] 15:45:00* Test Item Value Reference Range Interpretation Comme nts PROTHROMBIN TIME PATIENT (test code = PTP) 12.3 SECONDS 9.3-12.9 N INTERNATIONAL NORMAL RATIO (test code = INR) 1.1 0.8-1.2 N TARGET INR BY INDICATION Indication INR1. Prophylaxis of venous thrombosis 2.0 - 3.0 (orthopedic surgery), Prophylaxis of venous thrombosis (other than high-risk surgery), Treatment of Deep Vein Thrombosis/Pulmonary Embolism, Prevention of systemic embolism - Tissue heart valves, Acute Myocardial Infarction (to prevent systemic embolism), Valvular heart disease, Atrial Fibrillation, Bileaflet mechanical valve in aortic position.2. Mechanical prosthetic valves (high risk), 2.5 - 3.5 Presence of Lupus Anticoagulant or Antiphospholipid Antibodies, Prevention of systemic embolism - Acute Myocardial Infarction (to prevent recurrent infarct). THROMBOPLASTIN TIME [id number] 15:45:00* Test Item Value Reference Range Interpretation Comme nts THROMBOPLASTIN TIME PARTIAL (test code = PTT) 31.0 Seconds 25.0-39.5 N Therapeutic Rang e: 50.4 - 88.3 Seconds Effective 07/28/2018 CBC W/AUTO [id number] 15:33:00* Test Item Value Reference Range Interpretation Comme nts WHITE BLOOD CELL (test code = WBC) 8.6 x10 3/uL 4.5-11.0 RED BLOOD CELL (test code = RBC) 4.66 x10 6/uL 4.00-5.60 N HEMOGLOBIN (test code = HGB) 12.3 g/dL 12.5-16.9 L HEMATOCRIT (test code = HCT) 39.0 % 37.5-50.7 N MEAN CELL VOLUME (test code = MCV) 83.7 fL 81.0-99.0 N MEAN CELL HGB (test code = MCH) 26.4 pg 27.0-33.0 L MEAN CELL HGB CONCETRATION (test code = MCHC) 31.5 g/dL 33.0-37.0 L RED CELL DISTRIBUTION WIDTH CV (test code = RDW) 15.4 % 11.5-14.5 H RED CELL DISTRIBUTION WIDTH SD (test code = RDW-SD) 46.3 fL 37.0-54.0 N PLATELET COUNT (test code = PLT) 527 x10 3/uL 150-400 H MEAN PLATELET VOLUME (test c ode = MPV) 9.9 fL 7.0-9.0 H NEUTROPHIL % (test code = NT%) 58.5 % 56.0-77.0 N IMMATURE GRANULOCYTE % (test code = IG%) 0.5 % 0.0-2.0 N LYMPHOCYTE % (test code = LY%) 31.2 % 14.0-32.0 N MONOCYTE % (test code = MO%) 7.7 % 4.8-9.0 N EOSINOPHIL % (test code = EO%) 1.2 % 0.3-3.7 N BASOPHIL % (test code = BA%) 0.9 % 0.0-2.0 N NUCLEATED RBC % (test code = NRBC%) 0.0 % 0-0 N NEUTROPHIL # (test code = NT#) 5.04 x10 3/uL 2.0-7.6 N IMMATURE GRANULOCYTE # (test code = IG#) 0.04 x10 3/uL 0.00-0.03 H LYMPHOCYTE # (test code = LY#) 2.68 x10 3/uL 1.0-3.8 N MONOCYTE # (test code = MO#) 0.66 x10 3/uL 0.1-0.8 N EOSINOPHIL # (test code = EO#) 0.10 x10 3/uL 0.0-0.2 N BASOPHIL # (test code = BA#) 0.08 x10 3/uL 0.0-0.2 N NUCLEATED RBC # (test code = NRBC#) 0.00 x10 3/uL 0.0-0.1 N COMPREHENSIVE METABOLIC [id number] 10:15:00* Test Item Value Reference Range Interpretation Comme nts SODIUM (test code = NA) 139 mEq/L 134-147 N POTASSIUM (test code = K) 3.8 mEq/L 3.4-5.0 N CHLORIDE (test code = CL) 106 mEq/L 100-108 N CARBON DIOXIDE (test code = CO2) 28 mEq/l 21-33 N ANION GAP (test code = GAP) 9 0-20 N GLUCOSE (test code = GLU) 87 mg/dL 77-141 N BLOOD UREA NITROGEN (test code = BUN) < 5 mg/dL 7-25 L GLOMERULAR FILTRATION RATE (test code = GFR) 111.4 105-110 H The Glomerular Filtration Rate is a calculated parameterbased on serum Creatinine, patient age and sex. GFR valuesless than 60 mL/min/1.73 square meters are indicative ofChronic Kidney Disease. Values less than 15 mL/min/1.73square meters indicate Kidney failure. The calculation forGFR is based on the CKD-EPI (202) calculation. This formulais race indifferent and is the recommended formula for GFRby the National Kidney Foundation for Adults.The GFR will not calculate if the sex is unknown or if thepatient's age is <18 years. CREATININE (test code = CREAT) 0.9 mg/dL 0.6-1.3 N TOTAL PROTEIN (test code = PROT) 5.8 g/dL 6.4-8.2 L ALBUMIN (test code = ALB) 2.90 g/dL 3.4-5.0 L CALCIUM (test code = CA) 8.0 mg/dL 8.0-10.5 N BILIRUBIN TOTAL (test code = BILT) 0.70 mg/dL 0.0-1.0 N SGOT/AST (test code = AST) 19 IUnit/L 8-34 N SGPT/ALT (test code = ALT) 13 IUnit/L 10-49 N ALKALINE PHOSPHATASE TOTAL (test code = ALKP) 63 IUnit/L 20-125 N [id number] 10:15:00* Test Item Value Reference Range Interpretation Comme nts MAGNESIUM (test code = MAG) 1.73 mg/dL 1.6-2.6 N COMPREHENSIVE METABOLIC [id number] 09:10:00* Test Item Value Reference Range Interpretation Comme nts SODIUM (test code = NA) 142 mEq/L 134-147 N POTASSIUM (test code = K) 3.8 mEq/L 3.4-5.0 N CHLORIDE (test code = CL) 112 mEq/L 100-108 H CARBON DIOXIDE (test code = CO2) 26 mEq/l 21-33 N ANION GAP (test code = GAP) 8 0-20 N GLUCOSE (test code = GLU) 80 mg/dL 77-141 N BLOOD UREA NITROGEN (test code = BUN) 6 mg/dL 7-25 L GLOMERULAR FILTRATION RATE (test code = GFR) 98.2 105-110 L The Glomerular Filtration Rate is a calculated parameterbased on serum Creatinine, patient age and sex. GFR valuesless than 60 mL/min/1.73 square meters are indicative ofChronic Kidney Disease. Values less than 15 mL/min/1.73square meters indicate Kidney failure. The calculation forGFR is based on the CKD-EPI (2020) calculation. This formulais race indifferent and is the recommended formula for GFRby the National Kidney Foundation for Adults.The GFR will not calculate if the sex is unknown or if thepatient's age is <18 years. CREATININE (test code = CREAT) 1.0 mg/dL 0.6-1.3 N TOTAL PROTEIN (test code = PROT) 5.5 g/dL 6.4-8.2 L ALBUMIN (test code = ALB) 2.80 g/dL 3.4-5.0 L CALCIUM (test code = CA) 7.9 mg/dL 8.0-10.5 L BILIRUBIN TOTAL (test code = BILT) 0.80 mg/dL 0.0-1.0 N SGOT/AST (test code = AST) 14 IUnit/L 8-34 N SGPT/ALT (test code = ALT) 12 IUnit/L 10-49 N ALKALINE PHOSPHATASE TOTAL (test code = ALKP) 57 IUnit/L 20-125 N [id number] 09:10:00* Test Item Value Reference Range Interpretation Comme nts MAGNESIUM (test code = MAG) 1.96 mg/dL 1.6-2.6 N CBC W/AUTO [id number] 08:51:00* Test Item Value Reference Range Interpretation Comme nts WHITE BLOOD CELL (test code = WBC) 4.5 x10 3/uL 4.5-11.0 N RED BLOOD CELL (test code = RBC) 3.73 x10 6/uL 4.00-5.60 L HEMOGLOBIN (test code = HGB) 10.0 g/dL 12.5-16.9 L HEMATOCRIT (test code = HCT) 31.6 % 37.5-50.7 L MEAN CELL VOLUME (test code = MCV) 84.7 fL 81.0-99.0 N MEAN CELL HGB (test code = MCH) 26.8 pg 27.0-33.0 L MEAN CELL HGB CONCETRATION (test code = MCHC) 31.6 g/dL 33.0-37.0 L RED CELL DISTRIBUTION WIDTH CV (test code = RDW) 15.5 % 11.5-14.5 H RED CELL DISTRIBUTION WIDTH SD (test code = RDW-SD) 47.1 fL 37.0-54.0 N PLATELET COUNT (test code = PLT) 293 x10 3/uL 150-400 N MEAN PLATELET VOLUME (test c ode = MPV) 10.5 fL 7.0-9.0 H NEUTROPHIL % (test code = NT%) 34.1 % 56.0-77.0 L IMMATURE GRANULOCYTE % (test code = IG%) 0.0 % 0.0-2.0 N LYMPHOCYTE % (test code = LY%) 54.1 % 14.0-32.0 H MONOCYTE % (test code = MO%) 6.9 % 4.8-9.0 N EOSINOPHIL % (test code = EO%) 3.6 % 0.3-3.7 N BASOPHIL % (test code = BA%) 1.3 % 0.0-2.0 N NUCLEATED RBC % (test code = NRBC%) 0.0 % 0-0 N NEUTROPHIL # (test code = NT#) 1.52 x10 3/uL 2.0-7.6 L IMMATURE GRANULOCYTE # (test code = IG#) 0.00 x10 3/uL 0.00-0.03 N LYMPHOCYTE # (test code = LY#) 2.42 x10 3/uL 1.0-3.8 N MONOCYTE # (test code = MO#) 0.31 x10 3/uL 0.1-0.8 N EOSINOPHIL # (test code = EO#) 0.16 x10 3/uL 0.0-0.2 N BASOPHIL # (test code = BA#) 0.06 x10 3/uL 0.0-0.2 N NUCLEATED RBC # (test code = NRBC#) 0.00 x10 3/uL 0.0-0.1 N COMPREHENSIVE METABOLIC [id number] 07:18:00* Test Item Value Reference Range Interpretation Comme nts SODIUM (test code = NA) 144 mEq/L 134-147 N POTASSIUM (test code = K) 3.9 mEq/L 3.4-5.0 N CHLORIDE (test code = CL) 112 mEq/L 100-108 H CARBON DIOXIDE (test code = CO2) 26 mEq/l 21-33 N ANION GAP (test code = GAP) 10 0-20 N GLUCOSE (test code = GLU) 82 mg/dL 77-141 N BLOOD UREA NITROGEN (test code = BUN) < 5 mg/dL 7-25 L GLOMERULAR FILTRATION RATE (test code = GFR) 115.5 105-110 H The Glomerular Filtration Rate is a calculated parameterbased on serum Creatinine, patient age and sex. GFR valuesless than 60 mL/min/1.73 square meters are indicative ofChronic Kidney Disease. Values less than 15 mL/min/1.73square meters indicate Kidney failure. The calculation forGFR is based on the CKD-EPI (2020) calculation. This formulais race indifferent and is the recommended formula for GFRby the National Kidney Foundation for Adults.The GFR will not calculate if the sex is unknown or if thepatient's age is <18 years. CREATININE (test code = CREAT) 0.8 mg/dL 0.6-1.3 N TOTAL PROTEIN (test code = PROT) 6.1 g/dL 6.4-8.2 L ALBUMIN (test code = ALB) 3.30 g/dL 3.4-5.0 L CALCIUM (test code = CA) 8.2 mg/dL 8.0-10.5 N BILIRUBIN TOTAL (test code = BILT) 1.00 mg/dL 0.0-1.0 N SGOT/AST (test code = AST) 14 IUnit/L 8-34 N SGPT/ALT (test code = ALT) 12 IUnit/L 10-49 N ALKALINE PHOSPHATASE TOTAL (test code = ALKP) 57 IUnit/L 20-125 N [id number] 07:18:00* Test Item Value Reference Range Interpretation Comme nts PHOSPHOROUS (test code = PHOS) 3.9 MG/DL 2.5-4.9 N [id number] 07:18:00* Test Item Value Reference Range Interpretation Comme nts AMYLASE (test code = GARRY) 176 UNITS/L 30-118 H [id number] 07:18:00* Test Item Value Reference Range Interpretation Comme nts LIPASE (test code = LIP) 73 U/L 13-57 H [id number] 07:18:00* Test Item Value Reference Range Interpretation Comme nts MAGNESIUM (test code = MAG) 2.00 mg/dL 1.6-2.6 N CBC W/AUTO [id number] 06:34:00* Test Item Value Reference Range Interpretation Comme nts WHITE BLOOD CELL (test code = WBC) 5.5 x10 3/uL 4.5-11.0 N RED BLOOD CELL (test code = RBC) 3.94 x10 6/uL 4.00-5.60 L HEMOGLOBIN (test code = HGB) 10.3 g/dL 12.5-16.9 L HEMATOCRIT (test code = HCT) 33.1 % 37.5-50.7 L MEAN CELL VOLUME (test code = MCV) 84.0 fL 81.0-99.0 N MEAN CELL HGB (test code = MCH) 26.1 pg 27.0-33.0 L MEAN CELL HGB CONCETRATION (test code = MCHC) 31.1 g/dL 33.0-37.0 L RED CELL DISTRIBUTION WIDTH CV (test code = RDW) 15.7 % 11.5-14.5 H RED CELL DISTRIBUTION WIDTH SD (test code = RDW-SD) 47.5 fL 37.0-54.0 N PLATELET COUNT (test code = PLT) 345 x10 3/uL 150-400 N MEAN PLATELET VOLUME (test c ode = MPV) 10.7 fL 7.0-9.0 H NEUTROPHIL % (test code = NT%) 46.5 % 56.0-77.0 L IMMATURE GRANULOCYTE % (test code = IG%) 0.2 % 0.0-2.0 N LYMPHOCYTE % (test code = LY%) 41.4 % 14.0-32.0 H MONOCYTE % (test code = MO%) 6.8 % 4.8-9.0 N EOSINOPHIL % (test code = EO%) 3.8 % 0.3-3.7 H BASOPHIL % (test code = BA%) 1.3 % 0.0-2.0 N NUCLEATED RBC % (test code = NRBC%) 0.0 % 0-0 N NEUTROPHIL # (test code = NT#) 2.55 x10 3/uL 2.0-7.6 N IMMATURE GRANULOCYTE # (test code = IG#) 0.01 x10 3/uL 0.00-0.03 N LYMPHOCYTE # (test code = LY#) 2.27 x10 3/uL 1.0-3.8 N MONOCYTE # (test code = MO#) 0.37 x10 3/uL 0.1-0.8 N EOSINOPHIL # (test code = EO#) 0.21 x10 3/uL 0.0-0.2 H BASOPHIL # (test code = BA#) 0.07 x10 3/uL 0.0-0.2 N NUCLEATED RBC # (test code = NRBC#) 0.00 x10 3/uL 0.0-0.1 N [id number] 01:20:00* Test Item Value Reference Range Interpretation Comme nts AMYLASE (test code = GARRY) 248 UNITS/L 30-118 H Comment: may use blood in lab from todayADD ON TEST? YesB-TYPE NATRIURETIC [id number] 12:21:00* Test Item Value Reference Range Interpretation Comme nts B-TYPE NATRIURETIC PEPTIDE ( test code = BNP) 36.0 PG/ML 0-100 N LACTIC [id number] 12:19:00* Test Item Value Reference Range Interpretation Comme nts LACTIC ACID (test code = LACT) 1.0 mmol/L 0.4-1.9 N COMPREHENSIVE METABOLIC [id number] 12:18:00* Test Item Value Reference Range Interpretation Comme nts SODIUM (test code = NA) 141 mEq/L 134-147 N POTASSIUM (test code = K) 3.8 mEq/L 3.4-5.0 N CHLORIDE (test code = CL) 109 mEq/L 100-108 H CARBON DIOXIDE (test code = CO2) 27 mEq/l 21-33 N ANION GAP (test code = GAP) 9 0-20 N GLUCOSE (test code = GLU) 99 mg/dL 77-141 N BLOOD UREA NITROGEN (test code = BUN) 5 mg/dL 7-25 L GLOMERULAR FILTRATION RATE (test code = GFR) 111.4 105-110 H The Glomerular Filtration Rate is a calculated parameterbased on serum Creatinine, patient age and sex. GFR valuesless than 60 mL/min/1.73 square meters are indicative ofChronic Kidney Disease. Values less than 15 mL/min/1.73square meters indicate Kidney failure. The calculation forGFR is based on the CKD-EPI (2020) calculation. This formulais race indifferent and is the recommended formula for GFRby the National Kidney Foundation for Adults.The GFR will not calculate if the sex is unknown or if thepatient's age is <18 years. CREATININE (test code = CREAT) 0.9 mg/dL 0.6-1.3 N TOTAL PROTEIN (test code = PROT) 7.7 g/dL 6.4-8.2 N ALBUMIN (test code = ALB) 4.10 g/dL 3.4-5.0 N CALCIUM (test code = CA) 8.6 mg/dL 8.0-10.5 N BILIRUBIN TOTAL (test code = BILT) 1.30 mg/dL 0.0-1.0 H SGOT/AST (test code = AST) 13 IUnit/L 8-34 N SGPT/ALT (test code = ALT) 14 IUnit/L 10-49 N ALKALINE PHOSPHATASE TOTAL (test code = ALKP) 62 IUnit/L 20-125 N [id number] 12:18:00* Test Item Value Reference Range Interpretation Comme nts LIPASE (test code = LIP) 112 U/L 13-57 H TROP-I HIGH [id number] 12:18:00* Test Item Value Reference Range Interpretation Comme nts TROP-I HIGH SENSITIVITY (test code = TROPIHS) < 3 ng/L 0-54 N CAUTION: Units o f the current test methodology (ng/L) differfrom the prior test methodology (ng/mL) by a factor of 1000. 99th Percentile Upper Reference Limit (URL): Females: 34 ng/LMales: 54 ng/L In order to distinguish acute elevations of high sensitivitytroponin from other clinical conditions, the FourthUniversal Definition of Myocardial Infarction stressesclinical assessment and the demonstration of a rise and/orfall in serial troponin results above the URL. These results were obtained using Siemens [employer]ell[employer]Nshare IM TnIHreagent. Results from different methodologies should not becompared to one another as quantitative results and URLs mayvary by method. UA RFLX MICR CULT IF [id number] 12:08:00* Test Item Value Reference Range Interpretation Comme nts UA COLOR (test code = COLU) YELLOW YEL/STRAW UA APPEARANCE (test code = APPU) CLEAR CLEAR UA GLUCOSE DIPSTICK (test co de = DGLUU) NEGATIVE NEGATIVE UA BILIRUBIN DIPSTICK (test code = BILU) NEGATIVE NEGATIVE UA KETONE DIPSTICK (test cod e = KETU) NEGATIVE NEGATIVE UA SPECIFIC GRAVITY (test co de = SGU) 1.023 1.005-1.030 N UA BLOOD DIPSTICK (test code = JACOB) NEGATIVE NEGATIVE UA PH DIPSTICK (test code = CANDI) 5.0 5.0-7.0 N UA PROTEIN DIPSTICK (test co de = PROU) NEGATIVE NEGATIVE UA UROBILINIOGEN DIPSTICK (test code = URO) 0.2 mg/dL 0.2-1.0 UA NITRITE DIPSTICK (test co de = LINDA) NEGATIVE NEGATIVE UA LEUKOCYTE ESTERASE DIPSTI CK (test code = LEUU) NEGATIVE NEGATIVE UA WBC (test code = WBCU) 0-3 WBC/HPF 0-3 UA RBC (test code = RBCU) 0-3 RBC/HPF 0-3 UA WBC NO REFLEX (test code = WBCUCL) 0-3 WBC/HPF 0-3 UA BACTERIA (test code = BACU) NONE SEEN /HPF NONE SEEN UA SQUAMOUS CELLS (test code = SQU) 0-5 /HPF NONE SEEN UA CALCIUM OXALATE CRYSTALS (test code = CAOXU) 3+ /HPF NONE SEEN A UA HYALINE CAST (test code = HYALU) 3-5 /LPF NONE SEEN UA MUCUS (test code = MUCU) 4+ /LPF NONE SEEN A Indication for culture: Dysuria/FrequencySpecimen Description: CLEAN CATCHCBC W/AUTO [id number] 12:02:00* Test Item Value Reference Range Interpretation Comme nts WHITE BLOOD CELL (test code = WBC) 6.6 x10 3/uL 4.5-11.0 N RED BLOOD CELL (test code = RBC) 4.36 x10 6/uL 4.00-5.60 N HEMOGLOBIN (test code = HGB) 11.5 g/dL 12.5-16.9 L HEMATOCRIT (test code = HCT) 35.8 % 37.5-50.7 L MEAN CELL VOLUME (test code = MCV) 82.1 fL 81.0-99.0 N MEAN CELL HGB (test code = MCH) 26.4 pg 27.0-33.0 L MEAN CELL HGB CONCETRATION (test code = MCHC) 32.1 g/dL 33.0-37.0 L RED CELL DISTRIBUTION WIDTH CV (test code = RDW) 15.4 % 11.5-14.5 H RED CELL DISTRIBUTION WIDTH SD (test code = RDW-SD) 45.8 fL 37.0-54.0 N PLATELET COUNT (test code = PLT) 408 x10 3/uL 150-400 H MEAN PLATELET VOLUME (test c ode = MPV) 10.0 fL 7.0-9.0 H NEUTROPHIL % (test code = NT%) 55.5 % 56.0-77.0 L IMMATURE GRANULOCYTE % (test code = IG%) 0.3 % 0.0-2.0 N LYMPHOCYTE % (test code = LY%) 33.3 % 14.0-32.0 H MONOCYTE % (test code = MO%) 8.2 % 4.8-9.0 N EOSINOPHIL % (test code = EO%) 1.8 % 0.3-3.7 N BASOPHIL % (test code = BA%) 0.9 % 0.0-2.0 N NUCLEATED RBC % (test code = NRBC%) 0.0 % 0-0 N NEUTROPHIL # (test code = NT#) 3.67 x10 3/uL 2.0-7.6 N IMMATURE GRANULOCYTE # (test code = IG#) 0.02 x10 3/uL 0.00-0.03 N LYMPHOCYTE # (test code = LY#) 2.20 x10 3/uL 1.0-3.8 N MONOCYTE # (test code = MO#) 0.54 x10 3/uL 0.1-0.8 N EOSINOPHIL # (test code = EO#) 0.12 x10 3/uL 0.0-0.2 N BASOPHIL # (test code = BA#) 0.06 x10 3/uL 0.0-0.2 N NUCLEATED RBC # (test code = NRBC#) 0.00 x10 3/uL 0.0-0.1 N COMPREHENSIVE METABOLIC [id number] 06:34:00* Test Item Value Reference Range Interpretation Comme nts SODIUM (test code = NA) 136 mEq/L 134-147 N POTASSIUM (test code = K) 4.8 mEq/L 3.4-5.0 N CHLORIDE (test code = CL) 101 mEq/L 100-108 N CARBON DIOXIDE (test code = CO2) 29 mEq/l 21-33 N ANION GAP (test code = GAP) 11 0-20 N GLUCOSE (test code = GLU) 119 mg/dL 77-141 N BLOOD UREA NITROGEN (test code = BUN) 14 mg/dL 7-25 GLOMERULAR FILTRATION RATE (test code = GFR) 112.1 105-110 H The Glomerular Filtration Rate is a calculated parameterbased on serum Creatinine, patient age and sex. GFR valuesless than 60 mL/min/1.73 square meters are indicative ofChronic Kidney Disease. Values less than 15 mL/min/1.73square meters indicate Kidney failure. The calculation forGFR is based on the CKD-EPI (202) calculation. This formulais race indifferent and is the recommended formula for GFRby the National Kidney Foundation for Adults.The GFR will not calculate if the sex is unknown or if thepatient's age is <18 years. CREATININE (test code = CREAT) 0.9 mg/dL 0.6-1.3 N TOTAL PROTEIN (test code = PROT) 7.3 g/dL 6.4-8.2 N ALBUMIN (test code = ALB) 3.60 g/dL 3.4-5.0 N CALCIUM (test code = CA) 9.3 mg/dL 8.0-10.5 N BILIRUBIN TOTAL (test code = BILT) 0.90 mg/dL 0.0-1.0 SGOT/AST (test code = AST) 26 IUnit/L 8-34 SGPT/ALT (test code = ALT) 32 IUnit/L 10-49 ALKALINE PHOSPHATASE TOTAL (test code = ALKP) 75 IUnit/L 20-125 N CBC W/AUTO [id number] 05:48:00* Test Item Value Reference Range Interpretation Comme nts WHITE BLOOD CELL (test code = WBC) 10.8 x10 3/uL 4.5-11.0 RED BLOOD CELL (test code = RBC) 4.42 x10 6/uL 4.00-5.60 N HEMOGLOBIN (test code = HGB) 11.8 g/dL 12.5-16.9 L HEMATOCRIT (test code = HCT) 37.1 % 37.5-50.7 L MEAN CELL VOLUME (test code = MCV) 83.9 fL 81.0-99.0 N MEAN CELL HGB (test code = MCH) 26.7 pg 27.0-33.0 L MEAN CELL HGB CONCETRATION (test code = MCHC) 31.8 g/dL 33.0-37.0 L RED CELL DISTRIBUTION WIDTH CV (test code = RDW) 14.8 % 11.5-14.5 H RED CELL DISTRIBUTION WIDTH SD (test code = RDW-SD) 45.1 fL 37.0-54.0 N PLATELET COUNT (test code = PLT) 286 x10 3/uL 150-400 MEAN PLATELET VOLUME (test c ode = MPV) 10.0 fL 7.0-9.0 H NEUTROPHIL % (test code = NT%) 76.5 % 56.0-77.0 N IMMATURE GRANULOCYTE % (test code = IG%) 0.3 % 0.0-2.0 N LYMPHOCYTE % (test code = LY%) 12.1 % 14.0-32.0 L MONOCYTE % (test code = MO%) 10.8 % 4.8-9.0 H EOSINOPHIL % (test code = EO%) 0.1 % 0.3-3.7 L BASOPHIL % (test code = BA%) 0.2 % 0.0-2.0 N NUCLEATED RBC % (test code = NRBC%) 0.0 % 0-0 N NEUTROPHIL # (test code = NT#) 8.26 x10 3/uL 2.0-7.6 H IMMATURE GRANULOCYTE # (test code = IG#) 0.03 x10 3/uL 0.00-0.03 N LYMPHOCYTE # (test code = LY#) 1.30 x10 3/uL 1.0-3.8 N MONOCYTE # (test code = MO#) 1.16 x10 3/uL 0.1-0.8 H EOSINOPHIL # (test code = EO#) 0.01 x10 3/uL 0.0-0.2 N BASOPHIL # (test code = BA#) 0.02 x10 3/uL 0.0-0.2 N NUCLEATED RBC # (test code = NRBC#) 0.00 x10 3/uL 0.0-0.1 N BASIC METABOLIC [id number] 13:00:00* Test Item Value Reference Range Interpretation Comme nts SODIUM (test code = NA) 136 mEq/L 134-147 N POTASSIUM (test code = K) 5.1 mEq/L 3.4-5.0 H CHLORIDE (test code = CL) 103 mEq/L 100-108 N CARBON DIOXIDE (test code = CO2) 27 mEq/l 21-33 N ANION GAP (test code = GAP) 11 0-20 N GLUCOSE (test code = GLU) 98 mg/dL 77-141 N BLOOD UREA NITROGEN (test code = BUN) 8 mg/dL 7-25 N GLOMERULAR FILTRATION RATE (test code = GFR) 112.1 105-110 H The Glomerular Filtration Rate is a calculated parameterbased on serum Creatinine, patient age and sex. GFR valuesless than 60 mL/min/1.73 square meters are indicative ofChronic Kidney Disease. Values less than 15 mL/min/1.73square meters indicate Kidney failure. The calculation forGFR is based on the CKD-EPI (202) calculation. This formulais race indifferent and is the recommended formula for GFRby the National Kidney Foundation for Adults.The GFR will not calculate if the sex is unknown or if thepatient's age is <18 years. CREATININE (test code = CREAT) 0.9 mg/dL 0.6-1.3 N CALCIUM (test code = CA) 9.2 mg/dL 8.0-10.5 N CBC W/AUTO [id number] 11:24:00* Test Item Value Reference Range Interpretation Comme nts WHITE BLOOD CELL (test code = WBC) 5.4 x10 3/uL 4.5-11.0 N RED BLOOD CELL (test code = RBC) 4.77 x10 6/uL 4.00-5.60 N HEMOGLOBIN (test code = HGB) 12.6 g/dL 12.5-16.9 N HEMATOCRIT (test code = HCT) 40.1 % 37.5-50.7 N MEAN CELL VOLUME (test code = MCV) 84.1 fL 81.0-99.0 N MEAN CELL HGB (test code = MCH) 26.4 pg 27.0-33.0 L MEAN CELL HGB CONCETRATION (test code = MCHC) 31.4 g/dL 33.0-37.0 L RED CELL DISTRIBUTION WIDTH CV (test code = RDW) 15.1 % 11.5-14.5 H RED CELL DISTRIBUTION WIDTH SD (test code = RDW-SD) 45.6 fL 37.0-54.0 N PLATELET COUNT (test code = PLT) 168 x10 3/uL 150-400 N MEAN PLATELET VOLUME (test c ode = MPV) 10.7 fL 7.0-9.0 H NEUTROPHIL % (test code = NT%) 73.2 % 56.0-77.0 N IMMATURE GRANULOCYTE % (test code = IG%) 0.2 % 0.0-2.0 N LYMPHOCYTE % (test code = LY%) 16.5 % 14.0-32.0 N MONOCYTE % (test code = MO%) 9.0 % 4.8-9.0 N EOSINOPHIL % (test code = EO%) 0.4 % 0.3-3.7 N BASOPHIL % (test code = BA%) 0.7 % 0.0-2.0 N NUCLEATED RBC % (test code = NRBC%) 0.0 % 0-0 N NEUTROPHIL # (test code = NT#) 3.98 x10 3/uL 2.0-7.6 N IMMATURE GRANULOCYTE # (test code = IG#) 0.01 x10 3/uL 0.00-0.03 N LYMPHOCYTE # (test code = LY#) 0.90 x10 3/uL 1.0-3.8 L MONOCYTE # (test code = MO#) 0.49 x10 3/uL 0.1-0.8 N EOSINOPHIL # (test code = EO#) 0.02 x10 3/uL 0.0-0.2 N BASOPHIL # (test code = BA#) 0.04 x10 3/uL 0.0-0.2 N NUCLEATED RBC # (test code = NRBC#) 0.00 x10 3/uL 0.0-0.1 N [id number] 07:11:00* Test Item Value Reference Range Interpretation Comme nts LIPASE (test code = LIP) 53 U/L 13-57 COMPREHENSIVE METABOLIC [id number] 06:39:00* Test Item Value Reference Range Interpretation Comme nts SODIUM (test code = NA) 141 mEq/L 134-147 N POTASSIUM (test code = K) 4.1 mEq/L 3.4-5.0 N CHLORIDE (test code = CL) 105 mEq/L 100-108 N CARBON DIOXIDE (test code = CO2) 29 mEq/l 21-33 N ANION GAP (test code = GAP) 11 0-20 N GLUCOSE (test code = GLU) 112 mg/dL 77-141 BLOOD UREA NITROGEN (test code = BUN) 10 mg/dL 7-25 GLOMERULAR FILTRATION RATE (test code = GFR) 88.1 105-110 L The Glomerular Filtration Rate is a calculated parameterbased on serum Creatinine, patient age and sex. GFR valuesless than 60 mL/min/1.73 square meters are indicative ofChronic Kidney Disease. Values less than 15 mL/min/1.73square meters indicate Kidney failure. The calculation forGFR is based on the CKD-EPI (202) calculation. This formulais race indifferent and is the recommended formula for GFRby the National Kidney Foundation for Adults.The GFR will not calculate if the sex is unknown or if thepatient's age is <18 years. CREATININE (test code = CREAT) 1.1 mg/dL 0.6-1.3 N TOTAL PROTEIN (test code = PROT) 6.6 g/dL 6.4-8.2 N ALBUMIN (test code = ALB) 3.40 g/dL 3.4-5.0 N CALCIUM (test code = CA) 8.2 mg/dL 8.0-10.5 N BILIRUBIN TOTAL (test code = BILT) 0.50 mg/dL 0.0-1.0 SGOT/AST (test code = AST) 13 IUnit/L 8-34 N SGPT/ALT (test code = ALT) 12 IUnit/L 10-49 N ALKALINE PHOSPHATASE TOTAL (test code = ALKP) 58 IUnit/L 20-125 N COMPREHENSIVE METABOLIC [id number] 04:33:00* Test Item Value Reference Range Interpretation Comme nts SODIUM (test code = NA) 143 mEq/L 134-147 N POTASSIUM (test code = K) 3.8 mEq/L 3.4-5.0 N CHLORIDE (test code = CL) 109 mEq/L 100-108 H CARBON DIOXIDE (test code = CO2) 27 mEq/l 21-33 N ANION GAP (test code = GAP) 11 0-20 N GLUCOSE (test code = GLU) 87 mg/dL 77-141 BLOOD UREA NITROGEN (test code = BUN) 5 mg/dL 7-25 L GLOMERULAR FILTRATION RATE (test code = GFR) 98.8 105-110 L The Glomerular Filtration Rate is a calculated parameterbased on serum Creatinine, patient age and sex. GFR valuesless than 60 mL/min/1.73 square meters are indicative ofChronic Kidney Disease. Values less than 15 mL/min/1.73square meters indicate Kidney failure. The calculation forGFR is based on the CKD-EPI (2020) calculation. This formulais race indifferent and is the recommended formula for GFRby the National Kidney Foundation for Adults.The GFR will not calculate if the sex is unknown or if thepatient's age is <18 years. CREATININE (test code = CREAT) 1.0 mg/dL 0.6-1.3 N TOTAL PROTEIN (test code = PROT) 6.8 g/dL 6.4-8.2 N ALBUMIN (test code = ALB) 3.50 g/dL 3.4-5.0 N CALCIUM (test code = CA) 8.2 mg/dL 8.0-10.5 N BILIRUBIN TOTAL (test code = BILT) 1.10 mg/dL 0.0-1.0 H SGOT/AST (test code = AST) 18 IUnit/L 8-34 N SGPT/ALT (test code = ALT) 15 IUnit/L 10-49 N ALKALINE PHOSPHATASE TOTAL (test code = ALKP) 54 IUnit/L 20-125 N [id number] 04:33:00* Test Item Value Reference Range Interpretation Comme nts MAGNESIUM (test code = MAG) 2.09 mg/dL 1.6-2.6 N CBC W/AUTO [id number] 04:11:00* Test Item Value Reference Range Interpretation Comme nts WHITE BLOOD CELL (test code = WBC) 5.1 x10 3/uL 4.5-11.0 N RED BLOOD CELL (test code = RBC) 3.97 x10 6/uL 4.00-5.60 L HEMOGLOBIN (test code = HGB) 10.9 g/dL 12.5-16.9 L HEMATOCRIT (test code = HCT) 33.8 % 37.5-50.7 L MEAN CELL VOLUME (test code = MCV) 85.1 fL 81.0-99.0 N MEAN CELL HGB (test code = MCH) 27.5 pg 27.0-33.0 N MEAN CELL HGB CONCETRATION (test code = MCHC) 32.2 g/dL 33.0-37.0 L RED CELL DISTRIBUTION WIDTH CV (test code = RDW) 15.7 % 11.5-14.5 H RED CELL DISTRIBUTION WIDTH SD (test code = RDW-SD) 48.4 fL 37.0-54.0 N PLATELET COUNT (test code = PLT) 391 x10 3/uL 150-400 N MEAN PLATELET VOLUME (test c ode = MPV) 9.6 fL 7.0-9.0 H NEUTROPHIL % (test code = NT%) 46.0 % 56.0-77.0 L IMMATURE GRANULOCYTE % (test code = IG%) 0.2 % 0.0-2.0 N LYMPHOCYTE % (test code = LY%) 38.7 % 14.0-32.0 H MONOCYTE % (test code = MO%) 9.2 % 4.8-9.0 H EOSINOPHIL % (test code = EO%) 4.3 % 0.3-3.7 H BASOPHIL % (test code = BA%) 1.6 % 0.0-2.0 N NUCLEATED RBC % (test code = NRBC%) 0.0 % 0-0 N NEUTROPHIL # (test code = NT#) 2.35 x10 3/uL 2.0-7.6 N IMMATURE GRANULOCYTE # (test code = IG#) 0.01 x10 3/uL 0.00-0.03 N LYMPHOCYTE # (test code = LY#) 1.98 x10 3/uL 1.0-3.8 N MONOCYTE # (test code = MO#) 0.47 x10 3/uL 0.1-0.8 N EOSINOPHIL # (test code = EO#) 0.22 x10 3/uL 0.0-0.2 H BASOPHIL # (test code = BA#) 0.08 x10 3/uL 0.0-0.2 N NUCLEATED RBC # (test code = NRBC#) 0.00 x10 3/uL 0.0-0.1 N UA RFLX MICR CULT IF [id number] 15:03:00* Test Item Value Reference Range Interpretation Comme nts UA COLOR (test code = COLU) STRAW YEL/STRAW UA APPEARANCE (test code = APPU) CLEAR CLEAR UA GLUCOSE DIPSTICK (test co de = DGLUU) NEGATIVE NEGATIVE UA BILIRUBIN DIPSTICK (test code = BILU) NEGATIVE NEGATIVE UA KETONE DIPSTICK (test cod e = KETU) NEGATIVE NEGATIVE UA SPECIFIC GRAVITY (test co de = SGU) 1.006 1.005-1.030 N UA BLOOD DIPSTICK (test code = JACOB) NEGATIVE NEGATIVE UA PH DIPSTICK (test code = CANDI) 6.0 5.0-7.0 N UA PROTEIN DIPSTICK (test co de = PROU) NEGATIVE NEGATIVE UA UROBILINIOGEN DIPSTICK (test code = URO) 0.2 mg/dL 0.2-1.0 UA NITRITE DIPSTICK (test co de = LINDA) NEGATIVE NEGATIVE UA LEUKOCYTE ESTERASE DIPSTI CK (test code = LEUU) NEGATIVE NEGATIVE UA WBC (test code = WBCU) 0-3 WBC/HPF 0-3 UA RBC (test code = RBCU) 0-3 RBC/HPF 0-3 UA WBC NO REFLEX (test code = WBCUCL) 0-3 WBC/HPF 0-3 UA BACTERIA (test code = BACU) NONE SEEN /HPF NONE SEEN UA SQUAMOUS CELLS (test code = SQU) NONE SEEN /HPF NONE SEEN UA MUCUS (test code = MUCU) TRACE /LPF NONE SEEN Indication for culture: Suprapubic PainSpecimen Description: Clean CatchBASIC METABOLIC [id number] 14:38:00* Test Item Value Reference Range Interpretation Comme nts SODIUM (test code = NA) 137 mEq/L 134-147 N POTASSIUM (test code = K) 3.8 mEq/L 3.4-5.0 N CHLORIDE (test code = CL) 105 mEq/L 100-108 N CARBON DIOXIDE (test code = CO2) 25 mEq/l 21-33 N ANION GAP (test code = GAP) 11 0-20 N GLUCOSE (test code = GLU) 133 mg/dL 77-141 N BLOOD UREA NITROGEN (test code = BUN) 6 mg/dL 7-25 L GLOMERULAR FILTRATION RATE (test code = GFR) 98.8 105-110 L The Glomerular Filtration Rate is a calculated parameterbased on serum Creatinine, patient age and sex. GFR valuesless than 60 mL/min/1.73 square meters are indicative ofChronic Kidney Disease. Values less than 15 mL/min/1.73square meters indicate Kidney failure. The calculation forGFR is based on the CKD-EPI (202) calculation. This formulais race indifferent and is the recommended formula for GFRby the National Kidney Foundation for Adults.The GFR will not calculate if the sex is unknown or if thepatient's age is <18 years. CREATININE (test code = CREAT) 1.0 mg/dL 0.6-1.3 N CALCIUM (test code = CA) 8.6 mg/dL 8.0-10.5 N HEPATIC FUNCTION [id number] 14:38:00* Test Item Value Reference Range Interpretation Comme nts TOTAL PROTEIN (test code = PROT) 7.4 g/dL 6.4-8.2 N ALBUMIN (test code = ALB) 4.00 g/dL 3.4-5.0 N BILIRUBIN TOTAL (test code = BILT) 0.40 mg/dL 0.0-1.0 N BILIRUBIN DIRECT (test code = BILD) 0.10 MG/DL 0.1-0.3 N BILIRUBIN INDIRECT (test cod e = BILIND) 0.30 MG/DL SGOT/AST (test code = AST) 19 IUnit/L 8-34 N SGPT/ALT (test code = ALT) 13 IUnit/L 10-49 N ALKALINE PHOSPHATASE TOTAL ( test code = ALKP) 59 IUnit/L 20-125 N [id number] 14:38:00* Test Item Value Reference Range Interpretation Comme nts LIPASE (test code = LIP) 168 U/L 13-57 H CBC W/AUTO [id number] 14:19:00* Test Item Value Reference Range Interpretation Comme nts WHITE BLOOD CELL (test code = WBC) 8.4 x10 3/uL 4.5-11.0 N RED BLOOD CELL (test code = RBC) 4.11 x10 6/uL 4.00-5.60 N HEMOGLOBIN (test code = HGB) 11.2 g/dL 12.5-16.9 L HEMATOCRIT (test code = HCT) 35.6 % 37.5-50.7 L MEAN CELL VOLUME (test code = MCV) 86.6 fL 81.0-99.0 N MEAN CELL HGB (test code = MCH) 27.3 pg 27.0-33.0 N MEAN CELL HGB CONCETRATION (test code = MCHC) 31.5 g/dL 33.0-37.0 L RED CELL DISTRIBUTION WIDTH CV (test code = RDW) 15.5 % 11.5-14.5 H RED CELL DISTRIBUTION WIDTH SD (test code = RDW-SD) 49.1 fL 37.0-54.0 N PLATELET COUNT (test code = PLT) 398 x10 3/uL 150-400 N MEAN PLATELET VOLUME (test c ode = MPV) 9.7 fL 7.0-9.0 H NEUTROPHIL % (test code = NT%) 50.5 % 56.0-77.0 L IMMATURE GRANULOCYTE % (test code = IG%) 0.2 % 0.0-2.0 N LYMPHOCYTE % (test code = LY%) 39.1 % 14.0-32.0 H MONOCYTE % (test code = MO%) 7.0 % 4.8-9.0 N EOSINOPHIL % (test code = EO%) 2.0 % 0.3-3.7 N BASOPHIL % (test code = BA%) 1.2 % 0.0-2.0 N NUCLEATED RBC % (test code = NRBC%) 0.0 % 0-0 N NEUTROPHIL # (test code = NT#) 4.25 x10 3/uL 2.0-7.6 N IMMATURE GRANULOCYTE # (test code = IG#) 0.02 x10 3/uL 0.00-0.03 N LYMPHOCYTE # (test code = LY#) 3.30 x10 3/uL 1.0-3.8 N MONOCYTE # (test code = MO#) 0.59 x10 3/uL 0.1-0.8 N EOSINOPHIL # (test code = EO#) 0.17 x10 3/uL 0.0-0.2 N BASOPHIL # (test code = BA#) 0.10 x10 3/uL 0.0-0.2 N NUCLEATED RBC # (test code = NRBC#) 0.00 x10 3/uL 0.0-0.1 N BASIC METABOLIC [id number] 17:05:00* Test Item Value Reference Range Interpretation Comme nts SODIUM (test code = NA) 141 mEq/L 134-147 N POTASSIUM (test code = K) 3.4 mEq/L 3.4-5.0 N CHLORIDE (test code = CL) 106 mEq/L 100-108 N CARBON DIOXIDE (test code = CO2) 29 mEq/l 21-33 N ANION GAP (test code = GAP) 9 0-20 N GLUCOSE (test code = GLU) 103 mg/dL 77-141 N BLOOD UREA NITROGEN (test code = BUN) 5 mg/dL 7-25 L GLOMERULAR FILTRATION RATE (test code = GFR) 112.1 105-110 H The Glomerular Filtration Rate is a calculated parameterbased on serum Creatinine, patient age and sex. GFR valuesless than 60 mL/min/1.73 square meters are indicative ofChronic Kidney Disease. Values less than 15 mL/min/1.73square meters indicate Kidney failure. The calculation forGFR is based on the CKD-EPI (2020) calculation. This formulais race indifferent and is the recommended formula for GFRby the National Kidney Foundation for Adults.The GFR will not calculate if the sex is unknown or if thepatient's age is <18 years. CREATININE (test code = CREAT) 0.9 mg/dL 0.6-1.3 N CALCIUM (test code = CA) 8.9 mg/dL 8.0-10.5 N HEPATIC FUNCTION [id number] 17:05:00* Test Item Value Reference Range Interpretation Comme nts TOTAL PROTEIN (test code = PROT) 7.2 g/dL 6.4-8.2 N ALBUMIN (test code = ALB) 3.60 g/dL 3.4-5.0 N BILIRUBIN TOTAL (test code = BILT) 0.40 mg/dL 0.0-1.0 N BILIRUBIN DIRECT (test code = BILD) 0.20 MG/DL 0.1-0.3 N BILIRUBIN INDIRECT (test cod e = BILIND) 0.20 MG/DL SGOT/AST (test code = AST) 16 IUnit/L 8-34 N SGPT/ALT (test code = ALT) 14 IUnit/L 10-49 N ALKALINE PHOSPHATASE TOTAL ( test code = ALKP) 51 IUnit/L 20-125 N [id number] 17:05:00* Test Item Value Reference Range Interpretation Comme nts LIPASE (test code = LIP) 132 U/L 13-57 H CBC W/AUTO [id number] 16:40:00* Test Item Value Reference Range Interpretation Comme nts WHITE BLOOD CELL (test code = WBC) 6.3 x10 3/uL 4.5-11.0 RED BLOOD CELL (test code = RBC) 3.91 x10 6/uL 4.00-5.60 L HEMOGLOBIN (test code = HGB) 10.5 g/dL 12.5-16.9 L HEMATOCRIT (test code = HCT) 33.4 % 37.5-50.7 L MEAN CELL VOLUME (test code = MCV) 85.4 fL 81.0-99.0 N MEAN CELL HGB (test code = MCH) 26.9 pg 27.0-33.0 L MEAN CELL HGB CONCETRATION (test code = MCHC) 31.4 g/dL 33.0-37.0 L RED CELL DISTRIBUTION WIDTH CV (test code = RDW) 15.5 % 11.5-14.5 H RED CELL DISTRIBUTION WIDTH SD (test code = RDW-SD) 48.1 fL 37.0-54.0 N PLATELET COUNT (test code = PLT) 448 x10 3/uL 150-400 H MEAN PLATELET VOLUME (test c ode = MPV) 9.8 fL 7.0-9.0 H NEUTROPHIL % (test code = NT%) 45.2 % 56.0-77.0 L IMMATURE GRANULOCYTE % (test code = IG%) 0.2 % 0.0-2.0 N LYMPHOCYTE % (test code = LY%) 40.4 % 14.0-32.0 H MONOCYTE % (test code = MO%) 8.5 % 4.8-9.0 N EOSINOPHIL % (test code = EO%) 4.6 % 0.3-3.7 H BASOPHIL % (test code = BA%) 1.1 % 0.0-2.0 N NUCLEATED RBC % (test code = NRBC%) 0.0 % 0-0 N NEUTROPHIL # (test code = NT#) 2.84 x10 3/uL 2.0-7.6 N IMMATURE GRANULOCYTE # (test code = IG#) 0.01 x10 3/uL 0.00-0.03 N LYMPHOCYTE # (test code = LY#) 2.53 x10 3/uL 1.0-3.8 N MONOCYTE # (test code = MO#) 0.53 x10 3/uL 0.1-0.8 N EOSINOPHIL # (test code = EO#) 0.29 x10 3/uL 0.0-0.2 H BASOPHIL # (test code = BA#) 0.07 x10 3/uL 0.0-0.2 N NUCLEATED RBC # (test code = NRBC#) 0.00 x10 3/uL 0.0-0.1 N GLUCOSE [id number] 17:41:00* Test Item Value Reference Range Interpretation Comme nts GLUCOSE BEDSIDE (test code = GLUBED) 123 MG/DL 70-110 H Performed by cer tified blow up operator at [facility] GLUCOSE [id number] 13:11:00* Test Item Value Reference Range Interpretation Comme nts GLUCOSE BEDSIDE (test code = GLUBED) 101 MG/DL 70-110 N Performed by cer tified blow up operator at [facility] GLUCOSE [id number] 07:27:00* Test Item Value Reference Range Interpretation Comme nts GLUCOSE BEDSIDE (test code = GLUBED) 82 MG/DL 70-110 N Performed by [facility] tified blow up operator at [facility] BASIC METABOLIC [id number] 06:01:00* Test Item Value Reference Range Interpretation Comme nts SODIUM (test code = NA) 142 mEq/L 134-147 N POTASSIUM (test code = K) 4.6 mEq/L 3.4-5.0 N CHLORIDE (test code = CL) 110 mEq/L 100-108 H CARBON DIOXIDE (test code = CO2) 26 mEq/l 21-33 N ANION GAP (test code = GAP) 11 0-20 N GLUCOSE (test code = GLU) 87 mg/dL 77-141 N BLOOD UREA NITROGEN (test code = BUN) 6 mg/dL 7-25 L GLOMERULAR FILTRATION RATE (test code = GFR) 98.8 105-110 L The Glomerular Filtration Rate is a calculated parameterbased on serum Creatinine, patient age and sex. GFR valuesless than 60 mL/min/1.73 square meters are indicative ofChronic Kidney Disease. Values less than 15 mL/min/1.73square meters indicate Kidney failure. The calculation forGFR is based on the CKD-EPI (202) calculation. This formulais race indifferent and is the recommended formula for GFRby the National Kidney Foundation for Adults.The GFR will not calculate if the sex is unknown or if thepatient's age is <18 years. CREATININE (test code = CREAT) 1.0 mg/dL 0.6-1.3 N CALCIUM (test code = CA) 8.7 mg/dL 8.0-10.5 N CBC W/AUTO [id number] 05:49:00* Test Item Value Reference Range Interpretation Comme nts WHITE BLOOD CELL (test code = WBC) 3.9 x10 3/uL 4.5-11.0 L RED BLOOD CELL (test code = RBC) 3.86 x10 6/uL 4.00-5.60 L HEMOGLOBIN (test code = HGB) 10.4 g/dL 12.5-16.9 L HEMATOCRIT (test code = HCT) 33.2 % 37.5-50.7 L MEAN CELL VOLUME (test code = MCV) 86.0 fL 81.0-99.0 N MEAN CELL HGB (test code = MCH) 26.9 pg 27.0-33.0 L MEAN CELL HGB CONCETRATION (test code = MCHC) 31.3 g/dL 33.0-37.0 L RED CELL DISTRIBUTION WIDTH CV (test code = RDW) 16.0 % 11.5-14.5 H RED CELL DISTRIBUTION WIDTH SD (test code = RDW-SD) 50.6 fL 37.0-54.0 N PLATELET COUNT (test code = PLT) 299 x10 3/uL 150-400 N MEAN PLATELET VOLUME (test c ode = MPV) 10.3 fL 7.0-9.0 H NEUTROPHIL % (test code = NT%) 30.4 % 56.0-77.0 L IMMATURE GRANULOCYTE % (test code = IG%) 0.0 % 0.0-2.0 N LYMPHOCYTE % (test code = LY%) 51.3 % 14.0-32.0 H MONOCYTE % (test code = MO%) 13.0 % 4.8-9.0 H EOSINOPHIL % (test code = EO%) 3.8 % 0.3-3.7 H BASOPHIL % (test code = BA%) 1.5 % 0.0-2.0 N NUCLEATED RBC % (test code = NRBC%) 0.0 % 0-0 N NEUTROPHIL # (test code = NT#) 1.19 x10 3/uL 2.0-7.6 L IMMATURE GRANULOCYTE # (test code = IG#) 0.00 x10 3/uL 0.00-0.03 N LYMPHOCYTE # (test code = LY#) 2.01 x10 3/uL 1.0-3.8 N MONOCYTE # (test code = MO#) 0.51 x10 3/uL 0.1-0.8 N EOSINOPHIL # (test code = EO#) 0.15 x10 3/uL 0.0-0.2 N BASOPHIL # (test code = BA#) 0.06 x10 3/uL 0.0-0.2 N NUCLEATED RBC # (test code = NRBC#) 0.00 x10 3/uL 0.0-0.1 N BASIC METABOLIC [id number] 19:15:00* Test Item Value Reference Range Interpretation Comme nts SODIUM (test code = NA) 142 mEq/L 134-147 N POTASSIUM (test code = K) 3.9 mEq/L 3.4-5.0 N CHLORIDE (test code = CL) 110 mEq/L 100-108 H CARBON DIOXIDE (test code = CO2) 27 mEq/l 21-33 N ANION GAP (test code = GAP) 9 0-20 N GLUCOSE (test code = GLU) 96 mg/dL 77-141 N BLOOD UREA NITROGEN (test code = BUN) 7 mg/dL 7-25 N GLOMERULAR FILTRATION RATE (test code = GFR) 98.8 105-110 L The Glomerular Filtration Rate is a calculated parameterbased on serum Creatinine, patient age and sex. GFR valuesless than 60 mL/min/1.73 square meters are indicative ofChronic Kidney Disease. Values less than 15 mL/min/1.73square meters indicate Kidney failure. The calculation forGFR is based on the CKD-EPI (2020) calculation. This formulais race indifferent and is the recommended formula for GFRby the National Kidney Foundation for Adults.The GFR will not calculate if the sex is unknown or if thepatient's age is <18 years. CREATININE (test code = CREAT) 1.0 mg/dL 0.6-1.3 N CALCIUM (test code = CA) 7.8 mg/dL 8.0-10.5 L BY [id number] FUNCTION [id number] 19:15:00* Test Item Value Reference Range Interpretation Comme nts TOTAL PROTEIN (test code = PROT) 6.1 g/dL 6.4-8.2 L ALBUMIN (test code = ALB) 3.20 g/dL 3.4-5.0 L BILIRUBIN TOTAL (test code = BILT) 0.40 mg/dL 0.0-1.0 N BILIRUBIN DIRECT (test code = BILD) 0.20 MG/DL 0.1-0.3 N BILIRUBIN INDIRECT (test cod e = BILIND) 0.20 MG/DL SGOT/AST (test code = AST) 19 IUnit/L 8-34 N SGPT/ALT (test code = ALT) 17 IUnit/L 10-49 N ALKALINE PHOSPHATASE TOTAL ( test code = ALKP) 56 IUnit/L 20-125 N BY [id number] 19:15:00* Test Item Value Reference Range Interpretation Comme nts LIPASE (test code = LIP) 39 U/L 13-57 N BY [id number] W/AUTO [id number] 17:12:00* Test Item Value Reference Range Interpretation Comme nts WHITE BLOOD CELL (test code = WBC) 4.0 x10 3/uL 4.5-11.0 L RED BLOOD CELL (test code = RBC) 4.13 x10 6/uL 4.00-5.60 N HEMOGLOBIN (test code = HGB) 11.3 g/dL 12.5-16.9 L HEMATOCRIT (test code = HCT) 35.3 % 37.5-50.7 L MEAN CELL VOLUME (test code = MCV) 85.5 fL 81.0-99.0 N MEAN CELL HGB (test code = MCH) 27.4 pg 27.0-33.0 N MEAN CELL HGB CONCETRATION (test code = MCHC) 32.0 g/dL 33.0-37.0 L RED CELL DISTRIBUTION WIDTH CV (test code = RDW) 16.3 % 11.5-14.5 H RED CELL DISTRIBUTION WIDTH SD (test code = RDW-SD) 50.5 fL 37.0-54.0 N PLATELET COUNT (test code = PLT) 302 x10 3/uL 150-400 N MEAN PLATELET VOLUME (test c ode = MPV) 10.5 fL 7.0-9.0 H NEUTROPHIL % (test code = NT%) 28.6 % 56.0-77.0 L IMMATURE GRANULOCYTE % (test code = IG%) 0.0 % 0.0-2.0 N LYMPHOCYTE % (test code = LY%) 50.1 % 14.0-32.0 H MONOCYTE % (test code = MO%) 16.5 % 4.8-9.0 H EOSINOPHIL % (test code = EO%) 2.8 % 0.3-3.7 N BASOPHIL % (test code = BA%) 2.0 % 0.0-2.0 N NUCLEATED RBC % (test code = NRBC%) 0.0 % 0-0 N NEUTROPHIL # (test code = NT#) 1.14 x10 3/uL 2.0-7.6 L IMMATURE GRANULOCYTE # (test code = IG#) 0.00 x10 3/uL 0.00-0.03 N LYMPHOCYTE # (test code = LY#) 2.00 x10 3/uL 1.0-3.8 N MONOCYTE # (test code = MO#) 0.66 x10 3/uL 0.1-0.8 N EOSINOPHIL # (test code = EO#) 0.11 x10 3/uL 0.0-0.2 N BASOPHIL # (test code = BA#) 0.08 x10 3/uL 0.0-0.2 N NUCLEATED RBC # (test code = NRBC#) 0.00 x10 3/uL 0.0-0.1 N LIPID PROFILE (CORONARY RISK)2023-11-23 11:06:00* Test Item Value Reference Range Interpretation Comme nts TRIGLYCERIDES (test code = TRIG) 77 mg/dL 20-150 N CHOLESTEROL (test code = CHOL) 122 mg/dL 0-200 N CHOLESTEROL/HDL RATIO (test code = CHOLHDL) 3.0 RATIO 0-4.9 N RISK ASSOC IATED WITH CHOL/HDL RATIOS: Risk Male Female1/2 AVERAGE 3.43 3.27AVERAGE 4.97 4.442X AVERAGE 9.55 7.053X AVERAGE 23.39 11.04 REFERENCE VALUE IS RELATED TO RISK LEVELS ASRECOMMENDED BY THE [facility]. HEART, LUNG, AND BLOOD INST. HDL CHOLESTEROL (test code = HDL) 39 mg/dL 40-60 L LIPOPROTEIN LDL (test code = LDL) 70 mg/dL 0-99 N ====== Referen ce Interval: mg/dL mmol/L O ptimal <100 <2.6Near/above optimal 100-129 2.6-3.3Borderline High 130-159 3.4-4.1High 160-189 4.1-4.9Very High >=190 >=4.9========= This LDL result is a direct measurement.========= URINALYSIS [id number] 01:36:00* Test Item Value Reference Range Interpretation Comme nts UA COLOR (test code = COLU) Light-Yellow YELLOW UA APPEARANCE (test code = APPU) CLEAR CLEAR IS THE SAMPLE FROM ER OR L&D?Y IF THE ANSWER IS NO,PLEASE DOCUMENT TWO RN SIGNATURES HERE- by [id number] 11/23/23 0122 UA GLUCOSE DIPSTICK (test code = DGLUU) NEGATIVE mg/dL NEGATIVE UA BILIRUBIN DIPSTICK (test code = BILU) NEGATIVE mg/dL NEGATIVE UA KETONE DIPSTICK (test code = KETU) NEGATIVE mg/dL NEGATIVE UA SPECIFIC GRAVITY (test code = SGU) 1.018 1.001-1.035 UA BLOOD DIPSTICK (test code = JACOB) Negative mg/dL NEGATIVE UA PH DIPSTICK (test code = CANDI) 6.5 5.0-8.0 UA PROTEIN DIPSTICK (test code = PROU) NEGATIVE mg/dL NEGATIVE UA UROBILINIOGEN DIPSTICK (test code = URO) Normal mg/dL NEGATIVE UA NITRITE DIPSTICK (test code = LINDA) NEGATIVE NEGATIVE UA LEUKOCYTE ESTERASE W REFLEX (test code = LEUUR) NEGATIVE Sachin/uL NEGATIVE UA WBC (test code = WBCU) 0-5 per HPF 0-5 UA RBC (test code = RBCU) 0-2 #/HPF 0-5 UA EPITHELIAL CELLS (test code = EPIU) None seen per HPF FEW UA BACTERIA (test code = BACU) NONE SEEN #/HPF NONE UA MUCUS (test code = MUCU) FEW #/LPF FEW Urine Source? Clean CatchDRUGS OF ABUSE SCREEN [id number] 01:36:00* Test Item Value Reference Range Interpretation Comme nts URN COCAINE (test code = COCAURN) NEGATIVE See_Comment [Automated messa ge] The system which generated this result transmitted reference range: <300 ng/mL. The reference range was not used to interpret this result as normal/abnormal. URN CANNABINOIDS (test code = CANNABURN) POSITIVE See_Comment [Automated mes julio] The system which generated this result transmitted reference range: <50 ng/mL. The reference range was not used to interpret this result as normal/abnormal. URN AMPHETAMINE (test code = AMPHETURN) NEGATIVE See_Comment [Automated mes julio] The system which generated this result transmitted reference range: <1000 ng/mL. The reference range was not used to interpret this result as normal/abnormal. URN BARBITURATE (test code = BARBITURN) NEGATIVE See_Comment [Automated mes julio] The system which generated this result transmitted reference range: <200 ng/mL. The reference range was not used to interpret this result as normal/abnormal. URN BENZODIAZEPINE (test code = BENZOURN) POSITIVE See_Comment [Automated mess age] The system which generated this result transmitted reference range: <200 ng/mL. The reference range was not used to interpret this result as normal/abnormal. URN OPIATES (test code = OPIATURN) POSITIVE See_Comment [Automated messa ge] The system which generated this result transmitted reference range: <300 ng/mL. The reference range was not used to interpret this result as normal/abnormal. URN PHENCYCLIDINE (PCP) (test code = PHENCURN) NEGATIVE See_Comment [Automate d message] The system which generated this result transmitted reference range: <25 ng/mL. The reference range was not used to interpret this result as normal/abnormal. URN METHADONE (test code = METHAURN) NEGATIVE See_Comment [Automated messa ge] The system which generated this result transmitted reference range: <300 ng/mL. The reference range was not used to interpret this result as normal/abnormal. Urine Source? Clean CatchCOVID 19 INHOUSE [id number] 01:09:00* Test Item Value Reference Range Interpretation Comme nts COVID 19 INHOUSE AG (test co de = [id number]) NEGATIVE NEGATIVE INFLUENZA A B [id number] 01:09:00* Test Item Value Reference Range Interpretation Comme nts INFLUENZA A POC (test code = INFLAAG) Negative Negative INFLUENZA B POC (test code = INFLBAG) Negative Negative SOURCE: NASALBASIC METABOLIC [id number] 00:40:00* Test Item Value Reference Range Interpretation Comme nts SODIUM (test code = NA) 138 mmol/L 136-145 N POTASSIUM (test code = K) 3.2 mmol/L 3.5-5.1 L CHLORIDE (test code = CL) 104.0 mmol/L 98-107 N CARBON DIOXIDE (test code = CO2) 29.0 mmol/L 21-32 N ANION GAP (test code = GAP) 8.2 mmol/L 10-20 L GLUCOSE (test code = GLU) 94 mg/dL 74-106 N BLOOD UREA NITROGEN (test code = BUN) 9 mg/dL 7-18 N GLOMERULAR FILTRATION RATE (test code = GFR) > 60 mL/min >=60 The Glomerular Filtration Rate is a calculated parameterbased on serum Creatinine, patient age and sex. GFR valuesless than 60 mL/min/1.73 square meters are indicative ofChronic Kidney Disease. Values less than 15 mL/min/1.73square meters indicate Kidney failure. The calculation forGFR is based on the CKD-EPI (202) calculation. This formulais race indifferent and is the recommended formula for GFRby the National Kidney Foundation for Adults.The GFR will not calculate if the sex is unknown or if thepatient's age is <18 years. CREATININE (test code = CREAT) 1.00 mg/dL 0.7-1.3 N BUN/CREATININE RATIO (test code = BUN/CREA) 8.6 10-20 L CALCIUM (test code = CA) 8.7 mg/dL 8.5-10.1 N HEPATIC FUNCTION [id number] 00:40:00* Test Item Value Reference Range Interpretation Comme nts TOTAL PROTEIN (test code = PROT) 7.7 gram/dL 6.4-8.2 N ALBUMIN (test code = ALB) 4.2 g/dL 3.4-5.0 N GLOBULIN (test code = GLOB) 3.5 gram/dL 2.7-4.2 N ALBUMIN/GLOBULIN RATIO (test code = A/G) 1.2 0.75-1.50 N BILIRUBIN TOTAL (test code = BILT) 0.70 mg/dL 0.0-1.0 N BILIRUBIN DIRECT (test code = BILD) 0.20 mg/dL 0.0-0.20 N SGOT/AST (test code = AST) 23 IUnit/L 15-37 N SGPT/ALT (test code = ALT) 19 IUnit/L 12-78 N ALKALINE PHOSPHATASE TOTAL (test code = ALKP) 70 IUnit/L 45-117 N Note change in reference range due to change in reagent. [id number] 00:40:00* Test Item Value Reference Range Interpretation Comme nts LIPASE (test code = LIP) 65 U/L 12-57 H CBC W/O [id number] 00:35:00* Test Item Value Reference Range Interpretation Comme nts WHITE BLOOD CELL (test code = WBC) 8.9 K/mm3 4.5-12.5 N RED BLOOD CELL (test code = RBC) 4.37 mill/mm3 4.0-5.8 N HEMOGLOBIN (test code = HGB) 11.7 gram/dL 13.0-17.5 L HEMATOCRIT (test code = HCT) 36.9 % 42.0-52.0 L MEAN CELL VOLUME (test code = MCV) 84.4 fL 80-98 N MEAN CELL HGB (test code = MCH) 26.8 picogram 27.0-33.0 L MEAN CELL HGB CONCETRATION (test code = MCHC) 31.7 gram/dL 33.0-36.0 L RED CELL DISTRIBUTION WIDTH (test code = RDW) 15.5 % 11.6-16.2 N PLATELET COUNT (test code = PLT) 260 K/mm3 150-450 N MEAN PLATELET VOLUME (test c ode = MPV) 10.5 fL 6.7-11.0 N BASIC METABOLIC [id number] 00:48:00* Test Item Value Reference Range Interpretation Comme nts SODIUM (test code = NA) 139 mmol/L 136-145 N POTASSIUM (test code = K) 4.4 mmol/L 3.5-5.1 N CHLORIDE (test code = CL) 105.0 mmol/L 98-107 N CARBON DIOXIDE (test code = CO2) 28.0 mmol/L 21-32 N ANION GAP (test code = GAP) 10.4 mmol/L 10-20 N GLUCOSE (test code = GLU) 78 mg/dL 74-106 N BLOOD UREA NITROGEN (test code = BUN) 7 mg/dL 7-18 N GLOMERULAR FILTRATION RATE (test code = GFR) > 60 mL/min >=60 The Glomerular Filtration Rate is a calculated parameterbased on serum Creatinine, patient age and sex. GFR valuesless than 60 mL/min/1.73 square meters are indicative ofChronic Kidney Disease. Values less than 15 mL/min/1.73square meters indicate Kidney failure. The calculation forGFR is based on the CKD-EPI (2020) calculation. This formulais race indifferent and is the recommended formula for GFRby the National Kidney Foundation for Adults.The GFR will not calculate if the sex is unknown or if thepatient's age is <18 years. CREATININE (test code = CREAT) 1.00 mg/dL 0.7-1.3 N BUN/CREATININE RATIO (test code = BUN/CREA) 6.8 10-20 L CALCIUM (test code = CA) 8.6 mg/dL 8.5-10.1 N HEPATIC FUNCTION [id number] 00:48:00* Test Item Value Reference Range Interpretation Comme nts TOTAL PROTEIN (test code = PROT) 8.1 gram/dL 6.4-8.2 N ALBUMIN (test code = ALB) 4.2 g/dL 3.4-5.0 N GLOBULIN (test code = GLOB) 3.9 gram/dL 2.7-4.2 N ALBUMIN/GLOBULIN RATIO (test code = A/G) 1.1 0.75-1.50 N BILIRUBIN TOTAL (test code = BILT) 0.50 mg/dL 0.0-1.0 N BILIRUBIN DIRECT (test code = BILD) 0.20 mg/dL 0.0-0.20 N SGOT/AST (test code = AST) 30 IUnit/L 15-37 N SGPT/ALT (test code = ALT) 21 IUnit/L 12-78 N ALKALINE PHOSPHATASE TOTAL (test code = ALKP) 68 IUnit/L 45-117 N Note change in reference range due to change in reagent. [id number] 00:48:00* Test Item Value Reference Range Interpretation Comme nts LIPASE (test code = LIP) 62 U/L 12-57 H CBC W/O [id number] 00:43:00* Test Item Value Reference Range Interpretation Comme nts WHITE BLOOD CELL (test code = WBC) 5.8 K/mm3 4.5-12.5 N RED BLOOD CELL (test code = RBC) 4.18 mill/mm3 4.0-5.8 N HEMOGLOBIN (test code = HGB) 11.2 gram/dL 13.0-17.5 L HEMATOCRIT (test code = HCT) 36.0 % 42.0-52.0 L MEAN CELL VOLUME (test code = MCV) 86.1 fL 80-98 N MEAN CELL HGB (test code = MCH) 26.8 picogram 27.0-33.0 L MEAN CELL HGB CONCETRATION (test code = MCHC) 31.1 gram/dL 33.0-36.0 L RED CELL DISTRIBUTION WIDTH (test code = RDW) 14.9 % 11.6-16.2 N PLATELET COUNT (test code = PLT) 527 K/mm3 150-450 H RESULT VERIFIED BY REPEAT ANALYSIS MEAN PLATELET VOLUME (test code = MPV) 9.8 fL 6.7-11.0 N - XR CHEST 1 [id number] 23:55:00 [facility]Name: TANNER BENDER : 1985 Sex: M FAX: Fei Santoro [facility] [phone] [place]: [address] St: REG FAX: Viktoriya Sawyer MD [phone] Name: TANNER BENDER [facility] : 1985 Age/S: 37/M [address] Unit #: [id number] Loc: [place], [place] [address] Phys: Viktoriya Sawyer MD Acct: [id number] Dis Date: Status: REG ER PHONE #: [phone] Exam Date: 11/01/20237 FAX #: [phone] Reason: ABDOMINAL PAIN EXAMS: CPT CODE: [id number] XR CHEST 1 V [id number] EXAM: - XR CHEST 1 V HISTORY: Abdominal pain. COMPARISON: July 31, 2023. FINDINGS: Single AP view of the chest is provided. Heart size and vascularity are within normal limits. There is no evidence of a focal consolidation. There is no pleural effusion or pneumothorax. There is no definite acute osseous abnormality. IMPRESSION: No radiographic evidence of acute cardiopulmonary process. at 6940 Reported and signed by: Marbin Fish MD CC: Fei Henderson M.D.; Viktoriya Sawyer MD Technologist: RT SOURAV(R) Trnscrd Date/Time/By: 11/01/2023 (0078) : By: [email or web address] Orig Print D/T: S: 11/01/2023 (6069) PAGE 1 Signed [id number] 14:12:00* Test Item Value Reference Range Interpretation Comme nts LIPASE (test code = LIP) 43 U/L 12-57 N URINALYSIS [id number] 13:27:00* Test Item Value Reference Range Interpretation Comme nts UA COLOR (test code = COLU) Light-Yellow YELLOW UA APPEARANCE (test code = APPU) CLEAR CLEAR IS THE SAMPLE FROM ER OR L&D?Y IF THE ANSWER IS NO,PLEASE DOCUMENT TWO RN SIGNATURES HERE- by [id number] 11/01/23 1327 UA GLUCOSE DIPSTICK (test code = DGLUU) NEGATIVE mg/dL NEGATIVE UA BILIRUBIN DIPSTICK (test code = BILU) NEGATIVE mg/dL NEGATIVE UA KETONE DIPSTICK (test code = KETU) NEGATIVE mg/dL NEGATIVE UA SPECIFIC GRAVITY (test code = SGU) 1.018 1.001-1.035 UA BLOOD DIPSTICK (test code = JACOB) Negative mg/dL NEGATIVE UA PH DIPSTICK (test code = CANDI) 6.5 5.0-8.0 UA PROTEIN DIPSTICK (test code = PROU) NEGATIVE mg/dL NEGATIVE UA UROBILINIOGEN DIPSTICK (test code = URO) Normal mg/dL NEGATIVE UA NITRITE DIPSTICK (test code = LINDA) NEGATIVE NEGATIVE UA LEUKOCYTE ESTERASE W REFLEX (test code = LEUUR) NEGATIVE Sachin/uL NEGATIVE UA WBC (test code = WBCU) 0-5 per HPF 0-5 UA RBC (test code = RBCU) 0-2 #/HPF 0-5 UA EPITHELIAL CELLS (test code = EPIU) FEW per HPF FEW UA BACTERIA (test code = BACU) NONE SEEN #/HPF NONE UA MUCUS (test code = MUCU) FEW #/LPF FEW Urine Source? Clean CatchBASIC METABOLIC [id number] 01:47:00* Test Item Value Reference Range Interpretation Comme nts SODIUM (test code = NA) 139 mmol/L 136-145 N POTASSIUM (test code = K) 3.5 mmol/L 3.5-5.1 N CHLORIDE (test code = CL) 105.0 mmol/L 98-107 N CARBON DIOXIDE (test code = CO2) 30.0 mmol/L 21-32 N ANION GAP (test code = GAP) 7.5 mmol/L 10-20 L GLUCOSE (test code = GLU) 93 mg/dL 74-106 N BLOOD UREA NITROGEN (test code = BUN) 6 mg/dL 7-18 L GLOMERULAR FILTRATION RATE (test code = GFR) > 60 mL/min >=60 The Glomerular Filtration Rate is a calculated parameterbased on serum Creatinine, patient age and sex. GFR valuesless than 60 mL/min/1.73 square meters are indicative ofChronic Kidney Disease. Values less than 15 mL/min/1.73square meters indicate Kidney failure. The calculation forGFR is based on the CKD-EPI (202) calculation. This formulais race indifferent and is the recommended formula for GFRby the National Kidney Foundation for Adults.The GFR will not calculate if the sex is unknown or if thepatient's age is <18 years. CREATININE (test code = CREAT) 1.00 mg/dL 0.7-1.3 N BUN/CREATININE RATIO (test code = BUN/CREA) 6.2 10-20 L CALCIUM (test code = CA) 8.3 mg/dL 8.5-10.1 L HEPATIC FUNCTION [id number] 01:47:00* Test Item Value Reference Range Interpretation Comme nts TOTAL PROTEIN (test code = PROT) 7.3 gram/dL 6.4-8.2 N ALBUMIN (test code = ALB) 3.7 g/dL 3.4-5.0 N GLOBULIN (test code = GLOB) 3.6 gram/dL 2.7-4.2 N ALBUMIN/GLOBULIN RATIO (test code = A/G) 1.0 0.75-1.50 N BILIRUBIN TOTAL (test code = BILT) 0.50 mg/dL 0.0-1.0 N BILIRUBIN DIRECT (test code = BILD) 0.20 mg/dL 0.0-0.20 N SGOT/AST (test code = AST) 18 IUnit/L 15-37 N SGPT/ALT (test code = ALT) 15 IUnit/L 12-78 N ALKALINE PHOSPHATASE TOTAL (test code = ALKP) 57 IUnit/L 45-117 N Note change in reference range due to change in reagent. [id number] 01:47:00* Test Item Value Reference Range Interpretation Comme nts LIPASE (test code = LIP) 105 U/L 12-57 H PROTHROMBIN [id number] 01:37:00* Test Item Value Reference Range Interpretation Comme nts PROTHROMBIN TIME PATIENT (test code = PTP) 11.3 seconds 10.0-14.0 N INTERNATIONAL NORMAL RATIO (test code = INR) 1.1 0.8-1.2 N The therapeutic range for oral anticoagulant therapy formost indications is an international normalized ratio (INR)of between 2.0 and 3.0. The recommended therapeutic INRrange for various clinical situations is listed below: Clinical Situation INR range Pulmonary embolism treatment (2.0-3.0)Venous thrombosis treatmentVenous thrombosis prophylaxis (high risk surgery)Prevention of systemic embolism from: Acute myocardial infarction Valvular heart disease Atrial fibrillation Mechanical prosthetic heart valves (2.5-3.5) IS PATIENT ON ANTICOAGULANTS? NCBC W/O [id number] 01:28:00* Test Item Value Reference Range Interpretation Comme nts WHITE BLOOD CELL (test code = WBC) 7.4 K/mm3 4.5-12.5 N RED BLOOD CELL (test code = RBC) 4.00 mill/mm3 4.0-5.8 N HEMOGLOBIN (test code = HGB) 11.0 gram/dL 13.0-17.5 L HEMATOCRIT (test code = HCT) 34.8 % 42.0-52.0 L MEAN CELL VOLUME (test code = MCV) 87.0 fL 80-98 N MEAN CELL HGB (test code = MCH) 27.5 picogram 27.0-33.0 N MEAN CELL HGB CONCETRATION (test code = MCHC) 31.6 gram/dL 33.0-36.0 L RED CELL DISTRIBUTION WIDTH (test code = RDW) 14.8 % 11.6-16.2 N PLATELET COUNT (test code = PLT) 457 K/mm3 150-450 H MEAN PLATELET VOLUME (test c ode = MPV) 9.6 fL 6.7-11.0 N [id number] 12:30:00* Test Item Value Reference Range Interpretation Comme nts SURGICAL (test code = SR) --------RUN DATE: 10/27/23 [place] - LAB PAGE 1 RUN TIME: 1230 Specimen Inquiry RUN USER: INTERFACE --------PATIENT: TANNER BENDER LOC: [facility] U #: [id number] AGE/SX: 37/M [place] [facility] [place] DR: Aretha Diallo MD : 84 BED: 1 DIS: 10/24/23 STATUS: DIS IN TLOC: -------- SPEC #: [id number] RECD: 10/24/23 STATUS: WENDI RE #: [id number] JAMES: 10/24/23- SUBM DR: Quoc Alvarenga MD ENTERED: 10/24/23-1437 SP TYPE: SURGICAL OTHR DR: No Primary or Family Physician Self Referred Amrit Edmondson MD, Daniel C NP Jamma, Shailaja MD Rungta, Manish MDORDERED: [id number], ANATOMIC SPEC COPIES TO: No Primary or Family Physician Self Referred Amrit Edmondson MD [address] [facility] [address] [place] [address] Loi Cerda [employer] [address] [facility]. [address] [place] [address] [place] [address] [address] [place] [address] Quoc Alvarenga MD [address] [place] [address] [address] [place] [address] Horacio Brand MD [address] [place] [address] [address] [place] [address] PROCEDURES: [id number] (10/24/23-1437) TISSUES: A. COLON BIOPSY - SIGMOID CONTINUED ON NEXT PAGE --------RUN DATE: 10/27/23 [place] - LAB PAGE 2 RUN TIME: 1230 Specimen Inquiry RUN USER: INTERFACE --------SPEC #: [id number] PATIENT: TANNER BENDER #[id number] (Continued) CLINICAL HISTORY R/O COLITIS, GASTRITIS FINAL DIAGNOSIS Colon, sigmoid, biopsy: - No pathologic abnormality GROSS DESCRIPTION Received in formalin labeled "sigmoid biopsy" is 1 fragment of irregular shaped goodman softtissue, measuring 0.6 cm in maximum dimension, entirely submitted (A). Technical component performed at [facility],[address] [place] [address], [place] [address] Unless gross only, the diagnosis is based upon microscopic examination.Immunohistochemi stry: This test was developed and its performance characteristicsdetermined by this laboratory. It has not been approved nor does it need approvalby the [place] FDA. Appropriate positive and negative controls are reviewed and judgedto be acceptable for performedimmunohistochemistr y and/or special stains. This laboratoryis certified under the Clinical Laboratory Improvement Amendments (CLIA-88) as qualified toperform high complexity clinical laboratory testing. CLINICAL INFORMATION GASTRITIS, RULE OUT COLITIS Signed SIGNATURE ON FILE Angella Jewell MD 10/27/23 1230 -------- END OF REPORT BASIC METABOLIC [id number] 07:14:00* Test Item Value Reference Range Interpretation Comme nts SODIUM (test code = NA) 136 mEq/L 134-147 N POTASSIUM (test code = K) 4.1 mEq/L 3.4-5.0 N CHLORIDE (test code = CL) 104 mEq/L 100-108 N CARBON DIOXIDE (test code = CO2) 27 mEq/l 21-33 N ANION GAP (test code = GAP) 9 0-20 N GLUCOSE (test code = GLU) 103 mg/dL 77-141 N BLOOD UREA NITROGEN (test code = BUN) < 5 mg/dL 7-25 L GLOMERULAR FILTRATION RATE (test code = GFR) 98.8 105-110 L The Glomerular Filtration Rate is a calculated parameterbased on serum Creatinine, patient age and sex. GFR valuesless than 60 mL/min/1.73 square meters are indicative ofChronic Kidney Disease. Values less than 15 mL/min/1.73square meters indicate Kidney failure. The calculation forGFR is based on the CKD-EPI (2020) calculation. This formulais race indifferent and is the recommended formula for GFRby the National Kidney Foundation for Adults.The GFR will not calculate if the sex is unknown or if thepatient's age is <18 years. CREATININE (test code = CREAT) 1.0 mg/dL 0.6-1.3 N CALCIUM (test code = CA) 8.5 mg/dL 8.0-10.5 N [id number] 07:14:00* Test Item Value Reference Range Interpretation Comme nts PHOSPHOROUS (test code = PHOS) 2.9 MG/DL 2.5-4.9 N [id number] 07:14:00* Test Item Value Reference Range Interpretation Comme nts MAGNESIUM (test code = MAG) 1.64 mg/dL 1.6-2.6 N CBC W/AUTO [id number] 06:57:00* Test Item Value Reference Range Interpretation Comme nts WHITE BLOOD CELL (test code = WBC) 7.2 x10 3/uL 4.5-11.0 N RED BLOOD CELL (test code = RBC) 3.98 x10 6/uL 4.00-5.60 L HEMOGLOBIN (test code = HGB) 11.0 g/dL 12.5-16.9 L HEMATOCRIT (test code = HCT) 33.7 % 37.5-50.7 L MEAN CELL VOLUME (test code = MCV) 84.7 fL 81.0-99.0 N MEAN CELL HGB (test code = MCH) 27.6 pg 27.0-33.0 N MEAN CELL HGB CONCETRATION (test code = MCHC) 32.6 g/dL 33.0-37.0 L RED CELL DISTRIBUTION WIDTH CV (test code = RDW) 13.9 % 11.5-14.5 N RED CELL DISTRIBUTION WIDTH SD (test code = RDW-SD) 43.5 fL 37.0-54.0 N PLATELET COUNT (test code = PLT) 221 x10 3/uL 150-400 N MEAN PLATELET VOLUME (test c ode = MPV) 11.4 fL 7.0-9.0 H NEUTROPHIL % (test code = NT%) 66.3 % 56.0-77.0 N IMMATURE GRANULOCYTE % (test code = IG%) 0.3 % 0.0-2.0 N LYMPHOCYTE % (test code = LY%) 20.4 % 14.0-32.0 N MONOCYTE % (test code = MO%) 11.1 % 4.8-9.0 H EOSINOPHIL % (test code = EO%) 1.5 % 0.3-3.7 N BASOPHIL % (test code = BA%) 0.4 % 0.0-2.0 N NUCLEATED RBC % (test code = NRBC%) 0.0 % 0-0 N NEUTROPHIL # (test code = NT#) 4.77 x10 3/uL 2.0-7.6 N IMMATURE GRANULOCYTE # (test code = IG#) 0.02 x10 3/uL 0.00-0.03 N LYMPHOCYTE # (test code = LY#) 1.47 x10 3/uL 1.0-3.8 N MONOCYTE # (test code = MO#) 0.80 x10 3/uL 0.1-0.8 N EOSINOPHIL # (test code = EO#) 0.11 x10 3/uL 0.0-0.2 N BASOPHIL # (test code = BA#) 0.03 x10 3/uL 0.0-0.2 N NUCLEATED RBC # (test code = NRBC#) 0.00 x10 3/uL 0.0-0.1 N BASIC METABOLIC [id number] 07:45:00* Test Item Value Reference Range Interpretation Comme nts SODIUM (test code = NA) 134 mEq/L 134-147 N POTASSIUM (test code = K) 4.3 mEq/L 3.4-5.0 N CHLORIDE (test code = CL) 101 mEq/L 100-108 CARBON DIOXIDE (test code = CO2) 27 mEq/l 21-33 N ANION GAP (test code = GAP) 10 0-20 N GLUCOSE (test code = GLU) 94 mg/dL 77-141 BLOOD UREA NITROGEN (test code = BUN) 7 mg/dL 7-25 N GLOMERULAR FILTRATION RATE (test code = GFR) 98.8 105-110 L The Glomerular Filtration Rate is a calculated parameterbased on serum Creatinine, patient age and sex. GFR valuesless than 60 mL/min/1.73 square meters are indicative ofChronic Kidney Disease. Values less than 15 mL/min/1.73square meters indicate Kidney failure. The calculation forGFR is based on the CKD-EPI (202) calculation. This formulais race indifferent and is the recommended formula for GFRby the National Kidney Foundation for Adults.The GFR will not calculate if the sex is unknown or if thepatient's age is <18 years. CREATININE (test code = CREAT) 1.0 mg/dL 0.6-1.3 N CALCIUM (test code = CA) 8.5 mg/dL 8.0-10.5 N [id number] 07:45:00* Test Item Value Reference Range Interpretation Comme nts MAGNESIUM (test code = MAG) 1.73 mg/dL 1.6-2.6 N CBC W/AUTO [id number] 07:42:00* Test Item Value Reference Range Interpretation Comme nts WHITE BLOOD CELL (test code = WBC) 5.9 x10 3/uL 4.5-11.0 N RED BLOOD CELL (test code = RBC) 4.18 x10 6/uL 4.00-5.60 N HEMOGLOBIN (test code = HGB) 11.7 g/dL 12.5-16.9 L HEMATOCRIT (test code = HCT) 35.3 % 37.5-50.7 L MEAN CELL VOLUME (test code = MCV) 84.4 fL 81.0-99.0 MEAN CELL HGB (test code = MCH) 28.0 pg 27.0-33.0 N MEAN CELL HGB CONCETRATION (test code = MCHC) 33.1 g/dL 33.0-37.0 N RED CELL DISTRIBUTION WIDTH CV (test code = RDW) 13.7 % 11.5-14.5 N RED CELL DISTRIBUTION WIDTH SD (test code = RDW-SD) 42.3 fL 37.0-54.0 N PLATELET COUNT (test code = PLT) 235 x10 3/uL 150-400 N MEAN PLATELET VOLUME (test c ode = MPV) 10.9 fL 7.0-9.0 H NEUTROPHIL % (test code = NT%) 71.0 % 56.0-77.0 N IMMATURE GRANULOCYTE % (test code = IG%) 0.2 % 0.0-2.0 N LYMPHOCYTE % (test code = LY%) 16.2 % 14.0-32.0 N MONOCYTE % (test code = MO%) 10.6 % 4.8-9.0 H EOSINOPHIL % (test code = EO%) 1.5 % 0.3-3.7 N BASOPHIL % (test code = BA%) 0.5 % 0.0-2.0 N NUCLEATED RBC % (test code = NRBC%) 0.0 % 0-0 N NEUTROPHIL # (test code = NT#) 4.15 x10 3/uL 2.0-7.6 N IMMATURE GRANULOCYTE # (test code = IG#) 0.01 x10 3/uL 0.00-0.03 N LYMPHOCYTE # (test code = LY#) 0.95 x10 3/uL 1.0-3.8 L MONOCYTE # (test code = MO#) 0.62 x10 3/uL 0.1-0.8 N EOSINOPHIL # (test code = EO#) 0.09 x10 3/uL 0.0-0.2 N BASOPHIL # (test code = BA#) 0.03 x10 3/uL 0.0-0.2 N NUCLEATED RBC # (test code = NRBC#) 0.00 x10 3/uL 0.0-0.1 N - XR ABDOMEN 1V (KUB)2023-10-21 14:51:00 [facility] [place] : 1985 Sex: M FAX:Amrit Newsome MD [phone] [place]: St: ADM FAX: Aretha Luna MD [phone] FAX: Felice Manrique Name: TANNER BENDER [facility] : 1985 Age/S: 37/M [address] [place] [address] Bl Unit #: [id number] Loc: [address] [address] Phys: Felice Manrique Acct: [id number] Dis Date: Status: ADM IN PHONE#: [phone] Exam Date: 10/21/2023 1327 FAX #: [phone] Reason: nausea/vomitng EXAMS: CPT CODE: [id number] XR ABDOMEN 1V (KUB) [id number] EXAMINATION: - XR ABDOMEN 1V (KUB) INDICATION: nausea/vomiting COMPARISON: 02/21/2020 LOCATION: H96 FINDINGS: Mild nonspecific gaseous distention of stomach and small bowel and likely distal transverse colon. No evidence of constipation. No obvious nephrolithiasis. Cholecystectomy clips. IMPRESSION: Nonobstructive gas pattern. at 5894 Reported and signed by: Amrit Maldonado M.D. CC: Amrit Edmondson MD; Aretha Diallo MD; Felice HSU Technologist: RT Prashanth(R) Trnscrd Date/Time/By: 10/21/2023 (9486) : By: [email or web address] Orig Print D/T: S: 10/21/2023 (7626) PAGE 1 Signed ReportCOMPREHENSIVE METABOLIC [id number] 06:25:00* Test Item Value Reference Range Interpretation Comme nts SODIUM (test code = NA) 142 mEq/L 134-147 N POTASSIUM (test code = K) 3.9 mEq/L 3.4-5.0 N CHLORIDE (test code = CL) 113 mEq/L 100-108 H CARBON DIOXIDE (test code = CO2) 26 mEq/l 21-33 N ANION GAP (test code = GAP) 7 0-20 N GLUCOSE (test code = GLU) 73 mg/dL 77-141 L BLOOD UREA NITROGEN (test code = BUN) < 5 mg/dL 7-25 L GLOMERULAR FILTRATION RATE (test code = GFR) 112.1 105-110 H The Glomerular Filtration Rate is a calculated parameterbased on serum Creatinine, patient age and sex. GFR valuesless than 60 mL/min/1.73 square meters are indicative ofChronic Kidney Disease. Values less than 15 mL/min/1.73square meters indicate Kidney failure. The calculation forGFR is based on the CKD-EPI (2020) calculation. This formulais race indifferent and is the recommended formula for GFRby the National Kidney Foundation for Adults.The GFR will not calculate if the sex is unknown or if thepatient's age is <18 years. CREATININE (test code = CREAT) 0.9 mg/dL 0.6-1.3 N TOTAL PROTEIN (test code = PROT) 6.0 g/dL 6.4-8.2 L ALBUMIN (test code = ALB) 3.40 g/dL 3.4-5.0 N CALCIUM (test code = CA) 8.2 mg/dL 8.0-10.5 N BILIRUBIN TOTAL (test code = BILT) 1.30 mg/dL 0.0-1.0 H SGOT/AST (test code = AST) 15 IUnit/L 8-34 N SGPT/ALT (test code = ALT) 13 IUnit/L 10-49 N ALKALINE PHOSPHATASE TOTAL (test code = ALKP) 48 IUnit/L 20-125 N [id number] 06:25:00* Test Item Value Reference Range Interpretation Comme nts LIPASE (test code = LIP) 29 U/L 13-57 CBC W/AUTO [id number] 05:48:00* Test Item Value Reference Range Interpretation Comme nts WHITE BLOOD CELL (test code = WBC) 4.6 x10 3/uL 4.5-11.0 N RED BLOOD CELL (test code = RBC) 3.72 x10 6/uL 4.00-5.60 L HEMOGLOBIN (test code = HGB) 10.3 g/dL 12.5-16.9 L HEMATOCRIT (test code = HCT) 33.3 % 37.5-50.7 L MEAN CELL VOLUME (test code = MCV) 89.5 fL 81.0-99.0 N MEAN CELL HGB (test code = MCH) 27.7 pg 27.0-33.0 N MEAN CELL HGB CONCETRATION (test code = MCHC) 30.9 g/dL 33.0-37.0 L RED CELL DISTRIBUTION WIDTH CV (test code = RDW) 14.2 % 11.5-14.5 N RED CELL DISTRIBUTION WIDTH SD (test code = RDW-SD) 46.0 fL 37.0-54.0 N PLATELET COUNT (test code = PLT) 268 x10 3/uL 150-400 N MEAN PLATELET VOLUME (test c ode = MPV) 10.5 fL 7.0-9.0 H NEUTROPHIL % (test code = NT%) 43.1 % 56.0-77.0 L IMMATURE GRANULOCYTE % (test code = IG%) 0.4 % 0.0-2.0 N LYMPHOCYTE % (test code = LY%) 42.9 % 14.0-32.0 H MONOCYTE % (test code = MO%) 8.5 % 4.8-9.0 N EOSINOPHIL % (test code = EO%) 4.2 % 0.3-3.7 H BASOPHIL % (test code = BA%) 0.9 % 0.0-2.0 N NUCLEATED RBC % (test code = NRBC%) 0.0 % 0-0 N NEUTROPHIL # (test code = NT#) 1.97 x10 3/uL 2.0-7.6 L IMMATURE GRANULOCYTE # (test code = IG#) 0.02 x10 3/uL 0.00-0.03 N LYMPHOCYTE # (test code = LY#) 1.96 x10 3/uL 1.0-3.8 N MONOCYTE # (test code = MO#) 0.39 x10 3/uL 0.1-0.8 N EOSINOPHIL # (test code = EO#) 0.19 x10 3/uL 0.0-0.2 N BASOPHIL # (test code = BA#) 0.04 x10 3/uL 0.0-0.2 N NUCLEATED RBC # (test code = NRBC#) 0.00 x10 3/uL 0.0-0.1 N HGB [id number] 17:14:00* Test Item Value Reference Range Interpretation Comme nts HEMOGLOBIN (test code = HGB) 10.9 g/dL 12.5-16.9 L HEMATOCRIT (test code = HCT) 34.2 % 37.5-50.7 L HGB [id number] 09:45:00* Test Item Value Reference Range Interpretation Comme nts HEMOGLOBIN (test code = HGB) 11.8 g/dL 12.5-16.9 L HEMATOCRIT (test code = HCT) 37.1 % 37.5-50.7 L UA RFLX MICR CULT IF [id number] 03:48:00* Test Item Value Reference Range Interpretation Comme nts UA COLOR (test code = COLU) YELLOW YEL/STRAW UA APPEARANCE (test code = APPU) CLEAR CLEAR UA GLUCOSE DIPSTICK (test co de = DGLUU) NEGATIVE NEGATIVE UA BILIRUBIN DIPSTICK (test code = BILU) NEGATIVE NEGATIVE UA KETONE DIPSTICK (test cod e = KETU) NEGATIVE NEGATIVE UA SPECIFIC GRAVITY (test co de = SGU) 1.010 1.005-1.030 N UA BLOOD DIPSTICK (test code = JACOB) NEGATIVE NEGATIVE UA PH DIPSTICK (test code = CANDI) 5.0 5.0-7.0 N UA PROTEIN DIPSTICK (test co de = PROU) NEGATIVE NEGATIVE UA UROBILINIOGEN DIPSTICK (test code = URO) 0.2 mg/dL 0.2-1.0 UA NITRITE DIPSTICK (test co de = LINDA) NEGATIVE NEGATIVE UA LEUKOCYTE ESTERASE DIPSTI CK (test code = LEUU) NEGATIVE NEGATIVE UA WBC (test code = WBCU) 0-3 WBC/HPF 0-3 UA RBC (test code = RBCU) 0-3 RBC/HPF 0-3 UA WBC NO REFLEX (test code = WBCUCL) 0-3 WBC/HPF 0-3 UA BACTERIA (test code = BACU) NONE SEEN /HPF NONE SEEN UA SQUAMOUS CELLS (test code = SQU) 0-5 /HPF NONE SEEN Indication for culture: RiskForSepsis-no oth srcSpecimen Description: Clean CatchBASIC METABOLIC [id number] 03:31:00* Test Item Value Reference Range Interpretation Comme nts SODIUM (test code = NA) 138 mEq/L 134-147 N POTASSIUM (test code = K) 3.4 mEq/L 3.4-5.0 N CHLORIDE (test code = CL) 107 mEq/L 100-108 N CARBON DIOXIDE (test code = CO2) 25 mEq/l 21-33 N ANION GAP (test code = GAP) 10 0-20 N GLUCOSE (test code = GLU) 109 mg/dL 77-141 N BLOOD UREA NITROGEN (test code = BUN) 7 mg/dL 7-25 N GLOMERULAR FILTRATION RATE (test code = GFR) 112.1 105-110 H The Glomerular Filtration Rate is a calculated parameterbased on serum Creatinine, patient age and sex. GFR valuesless than 60 mL/min/1.73 square meters are indicative ofChronic Kidney Disease. Values less than 15 mL/min/1.73square meters indicate Kidney failure. The calculation forGFR is based on the CKD-EPI (2020) calculation. This formulais race indifferent and is the recommended formula for GFRby the National Kidney Foundation for Adults.The GFR will not calculate if the sex is unknown or if thepatient's age is <18 years. CREATININE (test code = CREAT) 0.9 mg/dL 0.6-1.3 N CALCIUM (test code = CA) 8.3 mg/dL 8.0-10.5 N HEPATIC FUNCTION [id number] 03:31:00* Test Item Value Reference Range Interpretation Comme nts TOTAL PROTEIN (test code = PROT) 6.5 g/dL 6.4-8.2 N ALBUMIN (test code = ALB) 3.70 g/dL 3.4-5.0 N BILIRUBIN TOTAL (test code = BILT) 1.00 mg/dL 0.0-1.0 N BILIRUBIN DIRECT (test code = BILD) 0.40 MG/DL 0.1-0.3 H SGOT/AST (test code = AST) 19 IUnit/L 8-34 N SGPT/ALT (test code = ALT) 17 IUnit/L 10-49 N ALKALINE PHOSPHATASE TOTAL ( test code = ALKP) 49 IUnit/L 20-125 N BILIRUBIN INDIRECT (test cod e = BILIND) 0.60 MG/DL [id number] 03:31:00* Test Item Value Reference Range Interpretation Comme nts LIPASE (test code = LIP) 152 U/L 13-57 H BASIC METABOLIC [id number] 03:20:00* Test Item Value Reference Range Interpretation Comme nts SODIUM (test code = NA) 138 mmol/L 136-145 N POTASSIUM (test code = K) 4.4 mmol/L 3.5-5.1 N CHLORIDE (test code = CL) 108.0 mmol/L 98-107 H CARBON DIOXIDE (test code = CO2) 26.0 mmol/L 21-32 N ANION GAP (test code = GAP) 8.4 mmol/L 10-20 L GLUCOSE (test code = GLU) 92 mg/dL 74-106 N BLOOD UREA NITROGEN (test code = BUN) 10 mg/dL 7-18 N GLOMERULAR FILTRATION RATE (test code = GFR) > 60 mL/min >=60 The Glomerular Filtration Rate is a calculated parameterbased on serum Creatinine, patient age and sex. GFR valuesless than 60 mL/min/1.73 square meters are indicative ofChronic Kidney Disease. Values less than 15 mL/min/1.73square meters indicate Kidney failure. The calculation forGFR is based on the CKD-EPI (2020) calculation. This formulais race indifferent and is the recommended formula for GFRby the National Kidney Foundation for Adults.The GFR will not calculate if the sex is unknown or if thepatient's age is <18 years. CREATININE (test code = CREAT) 0.90 mg/dL 0.7-1.3 N BUN/CREATININE RATIO (test code = BUN/CREA) 10.6 10-20 N CALCIUM (test code = CA) 8.1 mg/dL 8.5-10.1 L [id number] 03:20:00* Test Item Value Reference Range Interpretation Comme nts LIPASE (test code = LIP) 178 U/L 12-57 H [id number] 03:20:00* Test Item Value Reference Range Interpretation Comme [facility] TROPONIN-HS (test code = TROPI) <4.0 pg/mL 0-54 N 99th Percentile Upper Reference Limit (URL):Females: 34 pg/mLMales: 54 pg/mL In order to distinguish acute elevations of high sensitivitytroponin from other clinical conditions, the FourthUniversal Definition of Myocardial Infarction stressesclinical assessment and the demonstration of a rise and/orfall in serial troponin results above the URL. These results were obtained using Siemens AtemmCHANNEL IM TnIHreagent. Results from different methodologies should not becompared to one another as quantitative results and URLs mayvary by method. NOTE: A Positive Bias may occur for patients taking Biotin Supplements.NOTE: Current test methodology (pg/mL) units differ from prior test methodology (ng/mL) by a factor of 1000. URINALYSIS [id number] 02:36:00* Test Item Value Reference Range Interpretation Comme nts UA COLOR (test code = COLU) COLORLESS YELLOW A UA APPEARANCE (test code = APPU) CLEAR CLEAR IS THE SAMPLE FROM ER OR L&D? Y IF THE ANSWER IS NO,PLEASE DOCUMENT TWO RN SIGNATURES HERE- by [id number] 09/05/23 0236 UA GLUCOSE DIPSTICK (test code = DGLUU) NEGATIVE mg/dL NEGATIVE UA BILIRUBIN DIPSTICK (test code = BILU) NEGATIVE mg/dL NEGATIVE UA KETONE DIPSTICK (test code = KETU) NEGATIVE mg/dL NEGATIVE UA SPECIFIC GRAVITY (test code = SGU) 1.034 1.001-1.035 UA BLOOD DIPSTICK (test code = JACOB) Negative mg/dL NEGATIVE UA PH DIPSTICK (test code = CANDI) 6.0 5.0-8.0 UA PROTEIN DIPSTICK (test code = PROU) NEGATIVE mg/dL NEGATIVE UA UROBILINIOGEN DIPSTICK (test code = URO) Normal mg/dL NEGATIVE UA NITRITE DIPSTICK (test code = LINDA) NEGATIVE NEGATIVE UA LEUKOCYTE ESTERASE W REFLEX (test code = LEUUR) NEGATIVE Sachin/uL NEGATIVE UA WBC (test code = WBCU) NONE SEEN per HPF 0-5 UA RBC (test code = RBCU) NONE SEEN #/HPF 0-5 UA EPITHELIAL CELLS (test code = EPIU) None seen per HPF FEW UA BACTERIA (test code = BACU) NONE SEEN #/HPF NONE UA MUCUS (test code = MUCU) FEW #/LPF FEW Urine Source? Clean CatchCBC W/O [id number] 02:33:00* Test Item Value Reference Range Interpretation Comme nts WHITE BLOOD CELL (test code = WBC) 8.8 K/mm3 4.5-12.5 N RED BLOOD CELL (test code = RBC) 3.47 mill/mm3 4.0-5.8 L HEMOGLOBIN (test code = HGB) 10.1 gram/dL 13.0-17.5 L HEMATOCRIT (test code = HCT) 31.3 % 42.0-52.0 L MEAN CELL VOLUME (test code = MCV) 90.2 fL 80-98 N MEAN CELL HGB (test code = MCH) 29.1 picogram 27.0-33.0 N MEAN CELL HGB CONCETRATION (test code = MCHC) 32.3 gram/dL 33.0-36.0 L RED CELL DISTRIBUTION WIDTH (test code = RDW) 13.0 % 11.6-16.2 N PLATELET COUNT (test code = PLT) 312 K/mm3 150-450 N MEAN PLATELET VOLUME (test c ode = MPV) 9.7 fL 6.7-11.0 N BASIC METABOLIC [id number] 22:33:00* Test Item Value Reference Range Interpretation Comme nts SODIUM (test code = NA) 137 mmol/L 136-145 N POTASSIUM (test code = K) 3.8 mmol/L 3.5-5.1 N CHLORIDE (test code = CL) 105.0 mmol/L 98-107 N CARBON DIOXIDE (test code = CO2) 29.0 mmol/L 21-32 N ANION GAP (test code = GAP) 6.8 mmol/L 10-20 L GLUCOSE (test code = GLU) 94 mg/dL 74-106 N BLOOD UREA NITROGEN (test code = BUN) 8 mg/dL 7-18 N GLOMERULAR FILTRATION RATE (test code = GFR) > 60 mL/min >=60 The Glomerular Filtration Rate is a calculated parameterbased on serum Creatinine, patient age and sex. GFR valuesless than 60 mL/min/1.73 square meters are indicative ofChronic Kidney Disease. Values less than 15 mL/min/1.73square meters indicate Kidney failure. The calculation forGFR is based on the CKD-EPI (202) calculation. This formulais race indifferent and is the recommended formula for GFRby the National Kidney Foundation for Adults.The GFR will not calculate if the sex is unknown or if thepatient's age is <18 years. CREATININE (test code = CREAT) 1.00 mg/dL 0.7-1.3 N BUN/CREATININE RATIO (test code = BUN/CREA) 7.8 10-20 L CALCIUM (test code = CA) 8.4 mg/dL 8.5-10.1 L HEPATIC FUNCTION [id number] 22:33:00* Test Item Value Reference Range Interpretation Comme nts TOTAL PROTEIN (test code = PROT) 6.3 gram/dL 6.4-8.2 L ALBUMIN (test code = ALB) 3.5 g/dL 3.4-5.0 N GLOBULIN (test code = GLOB) 2.8 gram/dL 2.7-4.2 N ALBUMIN/GLOBULIN RATIO (test code = A/G) 1.2 0.75-1.50 N BILIRUBIN TOTAL (test code = BILT) 0.60 mg/dL 0.0-1.0 N BILIRUBIN DIRECT (test code = BILD) 0.20 mg/dL 0.0-0.20 N SGOT/AST (test code = AST) 22 IUnit/L 15-37 N SGPT/ALT (test code = ALT) 15 IUnit/L 12-78 N ALKALINE PHOSPHATASE TOTAL (test code = ALKP) 46 IUnit/L 45-117 N Note change in reference range due to change in reagent. [id number] 22:33:00* Test Item Value Reference Range Interpretation Comme nts LIPASE (test code = LIP) 44 U/L 12-57 N URINALYSIS [id number] 22:15:00* Test Item Value Reference Range Interpretation Comme nts UA COLOR (test code = COLU) YELLOW YELLOW UA APPEARANCE (test code = APPU) CLEAR CLEAR IS THE SAMPLE FROM ER OR L&D?Y IF THE ANSWER IS NO,PLEASE DOCUMENT TWO RN SIGNATURES HERE- by [id number] 09/03/23 3866 UA GLUCOSE DIPSTICK (test code = DGLUU) NEGATIVE mg/dL NEGATIVE UA BILIRUBIN DIPSTICK (test code = BILU) NEGATIVE mg/dL NEGATIVE UA KETONE DIPSTICK (test code = KETU) NEGATIVE mg/dL NEGATIVE UA SPECIFIC GRAVITY (test code = SGU) 1.037 1.001-1.035 UA BLOOD DIPSTICK (test code = JACOB) Negative mg/dL NEGATIVE UA PH DIPSTICK (test code = CANDI) 6.0 5.0-8.0 UA PROTEIN DIPSTICK (test code = PROU) 20 (Trace) mg/dL NEGATIVE A UA UROBILINIOGEN DIPSTICK (test code = URO) 2.0 (1+) mg/dL NEGATIVE A UA NITRITE DIPSTICK (test code = LINDA) NEGATIVE NEGATIVE UA LEUKOCYTE ESTERASE W REFLEX (test code = LEUUR) NEGATIVE Sachin/uL NEGATIVE UA WBC (test code = WBCU) 0-5 per HPF 0-5 UA RBC (test code = RBCU) 0-2 #/HPF 0-5 UA EPITHELIAL CELLS (test code = EPIU) Few (2-5/hpf) per HPF FEW UA BACTERIA (test code = BACU) FEW #/HPF NONE UA MUCUS (test code = MUCU) FEW #/LPF FEW Urine Source? Clean CatchCBC W/O [id number] 21:46:00* Test Item Value Reference Range Interpretation Comme nts WHITE BLOOD CELL (test code = WBC) 11.0 K/mm3 4.5-12.5 N RED BLOOD CELL (test code = RBC) 3.41 mill/mm3 4.0-5.8 L HEMOGLOBIN (test code = HGB) 10.1 gram/dL 13.0-17.5 L HEMATOCRIT (test code = HCT) 30.5 % 42.0-52.0 L MEAN CELL VOLUME (test code = MCV) 89.4 fL 80-98 N MEAN CELL HGB (test code = MCH) 29.6 picogram 27.0-33.0 N MEAN CELL HGB CONCETRATION (test code = MCHC) 33.1 gram/dL 33.0-36.0 N RED CELL DISTRIBUTION WIDTH (test code = RDW) 13.0 % 11.6-16.2 N PLATELET COUNT (test code = PLT) 306 K/mm3 150-450 N MEAN PLATELET VOLUME (test c ode = MPV) 9.7 fL 6.7-11.0 N - CT ABD PELVIS [id number] 00:36:00 [facility] [place] TANNER BENDER DOB: 1985 Sex: MName: TANNER BENDER [facility] [facility] Kat COY : 1985 Age/S: 37 / M [address] [place] [address] Unit #: [id number] Loc: ANDERS Diaz [address] Phys: Gagan De Jesus [employer] TE[employer] Acct: [id number] Dis Date: Status:REG ER PHONE #: [phone] Exam Date: 09/03/2023 0012 FAX #: [phone] Reason: ABDOMINAL PAINEXAMS: CPT CODE: [id number] CT ABD PELVIS W/CONT 26689 EXAM: - CT ABD PELVIS W/CONT LOCATION: H101 CLINICAL HISTORY/INDICATION: ABDOMINAL PAIN COMPARISON: CT August 16, 2023. TECHNIQUE: Axial CT images of the abdomen and pelvis were obtained from the diaphragm to the lesser trochanter with IV contrast administration. Coronal and sagittal reformations were reconstructed from the axial data set. Postcontrast images were acquired in the portal venous phase This examination was performed according to our departmental dose optimization program, which includes automated exposure control, adjustment of the mA and/or kV according to patient size, and/or use of iterative reconstruction technique. FINDINGS: STATEMENT: Unless otherwise specified, incidental findings do not require dedicated imaging follow-up. LOWER CHEST: Unremarkable. LIVER: No focal hepatic lesions or intrahepatic biliary dilatation. GALLBLADDER/BILIARY SYSTEM: Cholecystectomy. PANCREAS: Unremarkable. SPLEEN: No splenomegaly or focal lesions. ADRENALS: No adrenal nodules. KIDNEYS/URETERS: No hydronephrosis, stones, or solid mass lesions. VESSELS: No AAA. Patent portal vein. LYMPH NODES: No lymphadenopathy. PERITONEUM / RETROPERITONEUM: No free air or fluid. GI TRACT: There is mild circumferential wall thickening of the descending and sigmoid colon, compatible with colitis. There is no small bowel dilatation. The appendix has been surgically resected. PAGE 1 Signed Report (CONTINUED) Name: TANNER BENDER [facility] Kat Reicnos : 1985 Age/S: 37 / M [address] [place] [address] Unit #: [id number] Loc: ANDERS Diaz [address]Hbdc: Gagan De Jesus NP Acct: [id number] Dis Date: Status: REG ER PHONE #: [phone] Exam Date: 09/03/202311 FAX #: [phone] Reason: ABDOMINAL PAIN EXAMS: CPT CODE: [id number] CT ABD PELVIS W/CONT 23492 (Continued) GENITOURINARY ORGANS: Unremarkable. PELVIC FREE FLUID/FLUID COLLECTION: None. URINARY BLADDER: Unremarkable. EXTERNAL SOFT TISSUE: No abnormalities. BONES: No acute fracture. Chronic T11, T12 and L1 superior endplate compression fractures. IMPRESSION: 1. Mild colitis involving the descending and sigmoid colon. at 0036 Reported and signed by: Tee Rashid M.D. CC: Gagan De Jesus NP; Wade Walters; Deep Berg MD Technologist:RT Cecilio(R) CTDI: DLP: Trnscb Date/Time: 09/03/2023 (0036) t.[email or web address] Orig Print D/T: S: 09/03/2023 (0039) PAGE 2 Signed ReportBASIC METABOLIC [id number] 23:40:00* Test Item Value Reference Range Interpretation Comme nts SODIUM (test code = NA) 138 mEq/L 134-147 N POTASSIUM (test code = K) 4.8 mEq/L 3.4-5.0 N CHLORIDE (test code = CL) 106 mEq/L 100-108 N CARBON DIOXIDE (test code = CO2) 26 mEq/l 21-33 N ANION GAP (test code = GAP) 11 0-20 N GLUCOSE (test code = GLU) 86 mg/dL 77-141 N BLOOD UREA NITROGEN (test code = BUN) 10 mg/dL 7-25 N GLOMERULAR FILTRATION RATE (test code = GFR) 88.1 105-110 L The Glomerular Filtration Rate is a calculated parameterbased on serum Creatinine, patient age and sex. GFR valuesless than 60 mL/min/1.73 square meters are indicative ofChronic Kidney Disease. Values less than 15 mL/min/1.73square meters indicate Kidney failure. The calculation forGFR is based on the CKD-EPI (2020) calculation. This formulais race indifferent and is the recommended formula for GFRby the National Kidney Foundation for Adults.The GFR will not calculate if the sex is unknown or if thepatient's age is <18 years. CREATININE (test code = CREAT) 1.1 mg/dL 0.6-1.3 N CALCIUM (test code = CA) 9.2 mg/dL 8.0-10.5 N HEPATIC FUNCTION [id number] 23:40:00* Test Item Value Reference Range Interpretation Comme nts TOTAL PROTEIN (test code = PROT) 7.1 g/dL 6.4-8.2 N ALBUMIN (test code = ALB) 3.80 g/dL 3.4-5.0 N BILIRUBIN TOTAL (test code = BILT) 0.80 mg/dL 0.0-1.0 N BILIRUBIN DIRECT (test code = BILD) 0.20 MG/DL 0.1-0.3 N SGOT/AST (test code = AST) 35 IUnit/L 8-34 H SGPT/ALT (test code = ALT) 20 IUnit/L 10-49 N ALKALINE PHOSPHATASE TOTAL ( test code = ALKP) 49 IUnit/L 20-125 N BILIRUBIN INDIRECT (test cod e = BILIND) 0.60 MG/DL [id number] 23:40:00* Test Item Value Reference Range Interpretation Comme nts LIPASE (test code = LIP) 47 U/L 13-57 N UA RFLX MICR CULT IF [id number] 23:38:00* Test Item Value Reference Range Interpretation Comme nts UA COLOR (test code = COLU) YELLOW YEL/STRAW UA APPEARANCE (test code = APPU) CLEAR CLEAR UA GLUCOSE DIPSTICK (test co de = DGLUU) NEGATIVE NEGATIVE UA BILIRUBIN DIPSTICK (test code = BILU) NEGATIVE NEGATIVE UA KETONE DIPSTICK (test cod e = KETU) NEGATIVE NEGATIVE UA SPECIFIC GRAVITY (test co de = SGU) 1.025 1.005-1.030 N UA BLOOD DIPSTICK (test code = JACOB) NEGATIVE NEGATIVE UA PH DIPSTICK (test code = CANDI) 6.0 5.0-7.0 N UA PROTEIN DIPSTICK (test co de = PROU) NEGATIVE NEGATIVE UA UROBILINIOGEN DIPSTICK (test code = URO) 0.2 mg/dL 0.2-1.0 UA NITRITE DIPSTICK (test co de = LINDA) NEGATIVE NEGATIVE UA LEUKOCYTE ESTERASE DIPSTI CK (test code = LEUU) NEGATIVE NEGATIVE UA WBC (test code = WBCU) 0-3 WBC/HPF 0-3 UA RBC (test code = RBCU) 0-3 RBC/HPF 0-3 UA WBC NO REFLEX (test code = WBCUCL) 0-3 WBC/HPF 0-3 UA BACTERIA (test code = BACU) NONE SEEN /HPF NONE SEEN UA SQUAMOUS CELLS (test code = SQU) NONE SEEN /HPF NONE SEEN UA MUCUS (test code = MUCU) TRACE /LPF NONE SEEN Indication for culture: RiskForSepsis-no oth srcSpecimen Description: Clean CatchCBC W/AUTO [id number] 23:19:00* Test Item Value Reference Range Interpretation Comme nts WHITE BLOOD CELL (test code = WBC) 6.8 x10 3/uL 4.5-11.0 N RED BLOOD CELL (test code = RBC) 3.72 x10 6/uL 4.00-5.60 L HEMOGLOBIN (test code = HGB) 11.1 g/dL 12.5-16.9 L HEMATOCRIT (test code = HCT) 33.5 % 37.5-50.7 L MEAN CELL VOLUME (test code = MCV) 90.1 fL 81.0-99.0 N MEAN CELL HGB (test code = MCH) 29.8 pg 27.0-33.0 N MEAN CELL HGB CONCETRATION (test code = MCHC) 33.1 g/dL 33.0-37.0 N RED CELL DISTRIBUTION WIDTH CV (test code = RDW) 12.9 % 11.5-14.5 N RED CELL DISTRIBUTION WIDTH SD (test code = RDW-SD) 42.4 fL 37.0-54.0 N PLATELET COUNT (test code = PLT) 364 x10 3/uL 150-400 N MEAN PLATELET VOLUME (test c ode = MPV) 9.9 fL 7.0-9.0 H NEUTROPHIL % (test code = NT%) 40.9 % 56.0-77.0 L IMMATURE GRANULOCYTE % (test code = IG%) 0.1 % 0.0-2.0 N LYMPHOCYTE % (test code = LY%) 43.0 % 14.0-32.0 H MONOCYTE % (test code = MO%) 10.1 % 4.8-9.0 H EOSINOPHIL % (test code = EO%) 5.0 % 0.3-3.7 H BASOPHIL % (test code = BA%) 0.9 % 0.0-2.0 N NUCLEATED RBC % (test code = NRBC%) 0.0 % 0-0 N NEUTROPHIL # (test code = NT#) 2.79 x10 3/uL 2.0-7.6 N IMMATURE GRANULOCYTE # (test code = IG#) 0.01 x10 3/uL 0.00-0.03 N LYMPHOCYTE # (test code = LY#) 2.94 x10 3/uL 1.0-3.8 N MONOCYTE # (test code = MO#) 0.69 x10 3/uL 0.1-0.8 N EOSINOPHIL # (test code = EO#) 0.34 x10 3/uL 0.0-0.2 H BASOPHIL # (test code = BA#) 0.06 x10 3/uL 0.0-0.2 N NUCLEATED RBC # (test code = NRBC#) 0.00 x10 3/uL 0.0-0.1 N - CT ABD PELVIS [id number] 23:42:00 [facility] 1985 Sex: MName: TANNER BENDER [facility] : 1985 Age/S: 37 / M [address] [place] [address] Unit #: [id number] Loc: ANDERS Diaz [address] Phys: Joselin Garcia MD Acct: [id number] Dis Date: Status: REG ER PHONE #: [phone] Exam Date: 08/16/20232258 FAX #: [phone] Reason: ABd pain. Hx of pancreatitis EXAMS: CPT CODE: [id number] CT ABD PELVIS W/CONT 25856 CT Scan of the Abdomen and Pelvis With Contrast Location Code M12 History: ABd pain. Hx of pancreatitis Technique: Axial and reconstructed coronal scans were performed on a helical scanner post IV contrast. Unless stated otherwise, there are no suspicious findings in any incidental incompletely characterized cystic lesion based on the ACR White Papers that would require further follow up per consensus recommendations. However, follow up may be indicated to completely characterize these cystic lesions based on patient risk factors. One or more of the following dose reduction techniques were used: Automated exposurecontrol, adjustment of the mA and/or kV according to patient size, and/or utilization of iterative r econstruction technique. Findings: LIVER: No significant findings. GALLBLADDER/BILIARY: Cholecystectomy. PANCREAS: No significant findings. SPLEEN: No significant findings. ADRENALS: No significant findings. KIDNEYS: No hydronephrosis. BLADDER: No significant findings. GASTROINTESTINAL: Moderate am ount of retained colonic stool is noted. There are inflammatory changes, small bowel obstruction, free fluid or free air. The appendix is surgically absent. IMPRESSION: Moderate amount of retained colonic stool. Unremarkable pancreas. No peripancreatic fluid collection or inflammatory changes. at 2342 Reported and signed by: Jonna Bernal M.D. PAGE 1 Signed Report (CONTINUED) Name: TANNER BENDER [facility] : 1985 Age/S: 37 / M [address] [place] [address] Unit #: [id number] Loc: NADERS Diaz [address] Phys: Joselin Shabazz MD Acct: [id number] Dis Date: Status: REG ER PHONE #: [phone] Exam Date: 08/16/20232258 FAX #: [phone] Reason: ABd pain. Hx of pancreatitis EXAMS: CPT CODE:[id number] CT ABD PELVIS W/CONT 03261 (Continued) CC: Joselin Garcia MD; Wade Ye chnologist:Jaimee Rodney, RT(R); Isael CTDI: DLP: Trnscb Date/Time: 08/16/2023 (2341) [id number] Orig Print D/T: S: 08/16/2023 (5415) PAGE 2 Signed ReportUA RFLX MICR CULT IF [id number] 21:19:00* Test Item Value Reference Range Interpretation Comme nts UA COLOR (test code = COLU) YELLOW YEL/STRAW UA APPEARANCE (test code = APPU) CLEAR CLEAR UA GLUCOSE DIPSTICK (test code = DGLUU) NEGATIVE NEGATIVE UA BILIRUBIN DIPSTICK (test code = BILU) NEGATIVE NEGATIVE UA KETONE DIPSTICK (test code = KETU) NEGATIVE NEGATIVE UA SPECIFIC GRAVITY (test code = SGU) 1.026 1.005-1.030 N UA BLOOD DIPSTICK (test code = JACOB) NEGATIVE NEGATIVE UA PH DIPSTICK (test code = CANDI) 5.0 5.0-7.0 N UA PROTEIN DIPSTICK (test code = PROU) NEGATIVE NEGATIVE UA UROBILINIOGEN DIPSTICK (test code = URO) 0.2 mg/dL 0.2-1.0 UA NITRITE DIPSTICK (test code = LINDA) NEGATIVE NEGATIVE UA LEUKOCYTE ESTERASE DIPSTICK (test code = LEUU) NEGATIVE NEGATIVE UA WBC (test code = WBCU) NONE SEEN WBC/HPF 0-3 UA RBC (test code = RBCU) NONE SEEN RBC/HPF 0-3 UA WBC NO REFLEX (test code = WBCUCL) NONE SEEN WBC/HPF 0-3 UA BACTERIA (test code = BACU) NONE SEEN /HPF NONE SEEN UA SQUAMOUS CELLS (test code = SQU) NONE SEEN /HPF NONE SEEN UA HYALINE CAST (test code = HYALU) 0-2 /LPF NONE SEEN UA MUCUS (test code = MUCU) TRACE /LPF NONE SEEN Indication for culture: Suprapubic PainSpecimen Description: Clean CatchBASIC METABOLIC [id number] 21:15:00* Test Item Value Reference Range Interpretation Comme nts SODIUM (test code = NA) 139 mEq/L 134-147 N POTASSIUM (test code = K) 3.9 mEq/L 3.4-5.0 N CHLORIDE (test code = CL) 104 mEq/L 100-108 N CARBON DIOXIDE (test code = CO2) 28 mEq/l 21-33 N ANION GAP (test code = GAP) 11 0-20 N GLUCOSE (test code = GLU) 122 mg/dL 77-141 N BLOOD UREA NITROGEN (test code = BUN) 9 mg/dL 7-25 N GLOMERULAR FILTRATION RATE (test code = GFR) 88.1 105-110 L The Glomerular Filtration Rate is a calculated parameterbased on serum Creatinine, patient age and sex. GFR valuesless than 60 mL/min/1.73 square meters are indicative ofChronic Kidney Disease. Values less than 15 mL/min/1.73square meters indicate Kidney failure. The calculation forGFR is based on the CKD-EPI (2020) calculation. This formulais race indifferent and is the recommended formula for GFRby the National Kidney Foundation for Adults.The GFR will not calculate if the sex is unknown or if thepatient's age is <18 years. CREATININE (test code = CREAT) 1.1 mg/dL 0.6-1.3 N CALCIUM (test code = CA) 9.2 mg/dL 8.0-10.5 N HEPATIC FUNCTION [id number] 21:15:00* Test Item Value Reference Range Interpretation Comme nts TOTAL PROTEIN (test code = PROT) 6.8 g/dL 6.4-8.2 N ALBUMIN (test code = ALB) 3.80 g/dL 3.4-5.0 N BILIRUBIN TOTAL (test code = BILT) 0.50 mg/dL 0.0-1.0 N BILIRUBIN DIRECT (test code = BILD) 0.10 MG/DL 0.1-0.3 N BILIRUBIN INDIRECT (test cod e = BILIND) 0.40 MG/DL SGOT/AST (test code = AST) 23 IUnit/L 8-34 N SGPT/ALT (test code = ALT) 11 IUnit/L 10-49 N ALKALINE PHOSPHATASE TOTAL ( test code = ALKP) 52 IUnit/L 20-125 N [id number] 21:15:00* Test Item Value Reference Range Interpretation Comme nts LIPASE (test code = LIP) 41 U/L 13-57 N TROP-I HIGH [id number] 21:15:00* Test Item Value Reference Range Interpretation Comme nts TROP-I HIGH SENSITIVITY (test code = TROPIHS) < 3 ng/L 0-54 N CAUTION: Units o f the current test methodology (ng/L) differfrom the prior test methodology (ng/mL) by a factor of 1000. 99th Percentile Upper Reference Limit (URL): Females: 34 ng/LMales: 54 ng/L In order to distinguish acute elevations of high sensitivitytroponin from other clinical conditions, the FourthUniversal Definition of Myocardial Infarction stressesclinical assessment and the demonstration of a rise and/orfall in serial troponin results above the URL. These results were obtained using damntheradio IM TnIHreagent. Results from different methodologies should not becompared to one another as quantitative results and URLs mayvary by method. CBC W/AUTO [id number] 20:53:00* Test Item Value Reference Range Interpretation Comme nts WHITE BLOOD CELL (test code = WBC) 6.1 x10 3/uL 4.5-11.0 N RED BLOOD CELL (test code = RBC) 3.50 x10 6/uL 4.00-5.60 L HEMOGLOBIN (test code = HGB) 10.7 g/dL 12.5-16.9 L HEMATOCRIT (test code = HCT) 32.4 % 37.5-50.7 L MEAN CELL VOLUME (test code = MCV) 92.6 fL 81.0-99.0 N MEAN CELL HGB (test code = MCH) 30.6 pg 27.0-33.0 N MEAN CELL HGB CONCETRATION (test code = MCHC) 33.0 g/dL 33.0-37.0 N RED CELL DISTRIBUTION WIDTH CV (test code = RDW) 12.7 % 11.5-14.5 N RED CELL DISTRIBUTION WIDTH SD (test code = RDW-SD) 43.0 fL 37.0-54.0 N PLATELET COUNT (test code = PLT) 309 x10 3/uL 150-400 N MEAN PLATELET VOLUME (test c ode = MPV) 9.8 fL 7.0-9.0 H NEUTROPHIL % (test code = NT%) 34.4 % 56.0-77.0 L IMMATURE GRANULOCYTE % (test code = IG%) 0.3 % 0.0-2.0 N LYMPHOCYTE % (test code = LY%) 43.6 % 14.0-32.0 H MONOCYTE % (test code = MO%) 11.3 % 4.8-9.0 H EOSINOPHIL % (test code = EO%) 8.9 % 0.3-3.7 H BASOPHIL % (test code = BA%) 1.5 % 0.0-2.0 N NUCLEATED RBC % (test code = NRBC%) 0.0 % 0-0 N NEUTROPHIL # (test code = NT#) 2.09 x10 3/uL 2.0-7.6 N IMMATURE GRANULOCYTE # (test code = IG#) 0.02 x10 3/uL 0.00-0.03 N LYMPHOCYTE # (test code = LY#) 2.65 x10 3/uL 1.0-3.8 N MONOCYTE # (test code = MO#) 0.69 x10 3/uL 0.1-0.8 N EOSINOPHIL # (test code = EO#) 0.54 x10 3/uL 0.0-0.2 H BASOPHIL # (test code = BA#) 0.09 x10 3/uL 0.0-0.2 N NUCLEATED RBC # (test code = NRBC#) 0.00 x10 3/uL 0.0-0.1 N [id number] 13:53:00* Test Item Value Reference Range Interpretation Comme nts TROPONIN-HS (test code = TROPI) <4.0 pg/mL 0-54 N 99th Percentile Upper Reference Limit (URL):Females: 34 pg/mLMales: 54 pg/mL In order to distinguish acute elevations of high sensitivitytroponin from other clinical conditions, the FourthUniversal Definition of Myocardial Infarction stressesclinical assessment and the demonstration of a rise and/orfall in serial troponin results above the URL. These results were obtained using Siemens Enforta IM TnIHreagent. Results from different methodologies should not becompared to one another as quantitative results and URLs mayvary by method. NOTE: A Positive Bias may occur for patients taking Biotin Supplements.NOTE: Current test methodology (pg/mL) units differ from prior test methodology (ng/mL) by a factor of 1000. DRUGS OF ABUSE SCREEN [id number] 12:00:00* Test Item Value Reference Range Interpretation Comme nts UA PH DIPSTICK (test code = CANDI) 6.0 5.0-8.0 URN COCAINE (test code = COCAURN) NEGATIVE See_Comment [Automated messa ge] The system which generated this result transmitted reference range: <300 ng/mL. The reference range was not used to interpret this result as normal/abnormal. URN CANNABINOIDS (test code = CANNABURN) POSITIVE See_Comment [Automated mes julio] The system which generated this result transmitted reference range: <50 ng/mL. The reference range was not used to interpret this result as normal/abnormal. URN AMPHETAMINE (test code = AMPHETURN) NEGATIVE See_Comment [Automated mes julio] The system which generated this result transmitted reference range: <1000 ng/mL. The reference range was not used to interpret this result as normal/abnormal. URN BARBITURATE (test code = BARBITURN) NEGATIVE See_Comment [Automated mes julio] The system which generated this result transmitted reference range: <200 ng/mL. The reference range was not used to interpret this result as normal/abnormal. URN BENZODIAZEPINE (test code = BENZOURN) POSITIVE See_Comment [Automated mess age] The system which generated this result transmitted reference range: <200 ng/mL. The reference range was not used to interpret this result as normal/abnormal. URN OPIATES (test code = OPIATURN) POSITIVE See_Comment [Automated messa ge] The system which generated this result transmitted reference range: <300 ng/mL. The reference range was not used to interpret this result as normal/abnormal. URN PHENCYCLIDINE (PCP) (test code = PHENCURN) NEGATIVE See_Comment [Automate d message] The system which generated this result transmitted reference range: <25 ng/mL. The reference range was not used to interpret this result as normal/abnormal. URN METHADONE (test code = METHAURN) NEGATIVE See_Comment [Automated messa ge] The system which generated this result transmitted reference range: <300 ng/mL. The reference range was not used to interpret this result as normal/abnormal. [id number] 11:15:00* Test Item Value Reference Range Interpretation Comme nts TROPONIN-HS (test code = TROPI) <4.0 pg/mL 0-54 N 99th Percentile Upper Reference Limit (URL):Females: 34 pg/mLMales: 54 pg/mL In order to distinguish acute elevations of high sensitivitytroponin from other clinical conditions, the FourthUniversal Definition of Myocardial Infarction stressesclinical assessment and the demonstration of a rise and/orfall in serial troponin results above the URL. These results were obtained using Siemens AtellAskNshare IM TnIHreagent. Results from different methodologies should not becompared to one another as quantitative results and URLs mayvary by method. NOTE: A Positive Bias may occur for patients taking Biotin Supplements.NOTE: Current test methodology (pg/mL) units differ from prior test methodology (ng/mL) by a factor of 1000. [id number] 02:12:00* Test Item Value Reference Range Interpretation Comme nts TROPONIN-HS (test code = TROPI) <4.0 pg/mL 0-54 N 99th Percentile Upper Reference Limit (URL):Females: 34 pg/mLMales: 54 pg/mL In order to distinguish acute elevations of high sensitivitytroponin from other clinical conditions, the FourthUniversal Definition of Myocardial Infarction stressesclinical assessment and the demonstration of a rise and/orfall in serial troponin results above the URL. These results were obtained using Siemens AtellAskNshare IM TnIHreagent. Results from different methodologies should not becompared to one another as quantitative results and URLs mayvary by method. NOTE: A Positive Bias may occur for patients taking Biotin Supplements.NOTE: Current test methodology (pg/mL) units differ from prior test methodology (ng/mL) by a factor of 1000. - CTA [id number] 00:51:00 [facility]Name: TANNER BENDER : 1985 Sex: M Name: TANNER BENDER [facility] : 1985 Age/S: 37 / M [address] Unit #: [id number] Loc: [place] [address] Phys: Iggy Copeland MD Acct: [id number] Dis Date: Status: REG ER PHONE #: [phone] Exam Date: 08/01/202344 FAX #: [phone] Reason: sob syncope EXAMS: CPT CODE: [id number] CTA CHEST 10801 REASON FOR EXAM: sob syncope EXAM ORDER DATE: 08/01/2023 12:04 AM Ordering: Iggy Copeland MD Attending:Iggy Copeland MD Location:[facility] PROCEDURE: - CTA CHEST FINDI NGS: CT images of the chest were obtained with IV contrast using PE protocol. Reconstructed sagittal and coronal images including 3D reconstructions of the chest were provided for interpretation. Dose reduction techniques were applied. The heart size is within normal limits. No evidence of pericardial effusion The thoracic aorta is unremarkable. No evidence of dissection or aneurysmal dilatation.No filling defect seen within the main or lobar pulmonary arteries to suggest pulmonary embolus No evidence of mediastinal or hilar adenopathy The lungs are clear. No evidence of pleural effusion IMPRESSION: No acute findings in the chest. at 0051 Reported and signed by: Edu Witt M.D. CC: Robin Fernandez MD; Iggy Copeland MD Technologist:Aliya James RT(R) CTDI: DLP: Trnscb Date/Time: 08/01/2023 (50) [id number] Orig Print D/T: S: 08/01/2023 (53) PAGE 1 Signed ReportBASIC METABOLIC [id number] 00:16:00* Test Item Value Reference Range Interpretation Comme nts SODIUM (test code = NA) 139 mmol/L 136-145 N POTASSIUM (test code = K) 3.7 mmol/L 3.5-5.1 N CHLORIDE (test code = CL) 103.0 mmol/L 98-107 N CARBON DIOXIDE (test code = CO2) 28.0 mmol/L 21-32 N ANION GAP (test code = GAP) 11.7 mmol/L 10-20 N GLUCOSE (test code = GLU) 97 mg/dL 74-106 N BLOOD UREA NITROGEN (test code = BUN) 10 mg/dL 7-18 N GLOMERULAR FILTRATION RATE (test code = GFR) > 60 mL/min >=60 The Glomerular Filtration Rate is a calculated parameterbased on serum Creatinine, patient age and sex. GFR valuesless than 60 mL/min/1.73 square meters are indicative ofChronic Kidney Disease. Values less than 15 mL/min/1.73square meters indicate Kidney failure. The calculation forGFR is based on the CKD-EPI (2020) calculation. This formulais race indifferent and is the recommended formula for GFRby the National Kidney Foundation for Adults.The GFR will not calculate if the sex is unknown or if thepatient's age is <18 years. CREATININE (test code = CREAT) 0.90 mg/dL 0.7-1.3 N BUN/CREATININE RATIO (test code = BUN/CREA) 11.4 10-20 N CALCIUM (test code = CA) 8.8 mg/dL 8.5-10.1 N HEPATIC FUNCTION [id number] 00:16:00* Test Item Value Reference Range Interpretation Comme nts TOTAL PROTEIN (test code = PROT) 7.6 gram/dL 6.4-8.2 N ALBUMIN (test code = ALB) 4.1 g/dL 3.4-5.0 N GLOBULIN (test code = GLOB) 3.5 gram/dL 2.7-4.2 N ALBUMIN/GLOBULIN RATIO (test code = A/G) 1.2 0.75-1.50 N BILIRUBIN TOTAL (test code = BILT) 0.90 mg/dL 0.0-1.0 N BILIRUBIN DIRECT (test code = BILD) 0.30 mg/dL 0.0-0.20 H SGOT/AST (test code = AST) 14 IUnit/L 15-37 L SGPT/ALT (test code = ALT) 15 IUnit/L 12-78 N ALKALINE PHOSPHATASE TOTAL (test code = ALKP) 57 IUnit/L 45-117 N Note change in reference range due to change in reagent. [id number] 00:16:00* Test Item Value Reference Range Interpretation Comme nts LIPASE (test code = LIP) 61 U/L 12-57 H [id number] 00:16:00* Test Item Value Reference Range Interpretation Comme nts TROPONIN-HS (test code = TROPI) <4.0 pg/mL 0-54 N 99th Percentile Upper Reference Limit (URL):Females: 34 pg/mLMales: 54 pg/mL In order to distinguish acute elevations of high sensitivitytroponin from other clinical conditions, the FourthUniversal Definition of Myocardial Infarction stressesclinical assessment and the demonstration of a rise and/orfall in serial troponin results above the URL. These results were obtained using damntheradio IM TnIHreagent. Results from different methodologies should not becompared to one another as quantitative results and URLs mayvary by method. NOTE: A Positive Bias may occur for patients taking Biotin Supplements.NOTE: Current test methodology (pg/mL) units differ from prior test methodology (ng/mL) by a factor of 1000. [id number] 00:03:00* Test Item Value Reference Range Interpretation Comme nts D-DIMER (test code = DDIMER) 587 ng/mLFEU 0-500 HH Results called t o [id number] by [id number] 08/01/23 0003Critical results verified and read back by Nurse? YClinical Cut-off value for D-Dimer is 500 ng/mL FEU. Comment: The [employer] D-Dimer assay is intended for use asan aid in the diagnosis of venous thromboembolism (VTE)[deep vein thrombosis (DVT) or pulmonary embolism (PE)].The measurement of D-Dimer should not be used as an aid inthe diagnosis of VTE, in patient with: -Therapeutic dose anticoagulant therapy for >24 hours -Fibrinolytic therapy within previous 7 days -Trauma or surgery within previous 4 weeks -Disseminated malignancies -Aortic aneurysm -Sepsis, severe infections, pneumonia, severe skin infections -Liver cirrhosis - PROTHROMBIN [id number] 23:54:00* Test Item Value Reference Range Interpretation Comme nts PROTHROMBIN TIME PATIENT (test code = PTP) 11.9 seconds 10.0-14.0 N INTERNATIONAL NORMAL RATIO (test code = INR) 1.1 0.8-1.2 N The therapeutic range for oral anticoagulant therapy formost indications is an international normalized ratio (INR)of between 2.0 and 3.0. The recommended therapeutic INRrange for various clinical situations is listed below: Clinical Situation INR range Pulmonary embolism treatment (2.0-3.0)Venous thrombosis treatmentVenous thrombosis prophylaxis (high risk surgery)Prevention of systemic embolism from: Acute myocardial infarction Valvular heart disease Atrial fibrillation Mechanical prosthetic heart valves (2.5-3.5) IS PATIENT ON ANTICOAGULANTS? NCBC W/O [id number] 23:49:00* Test Item Value Reference Range Interpretation Comme nts WHITE BLOOD CELL (test code = WBC) 10.8 K/mm3 4.5-12.5 N RED BLOOD CELL (test code = RBC) 3.98 mill/mm3 4.0-5.8 L HEMOGLOBIN (test code = HGB) 12.2 gram/dL 13.0-17.5 L HEMATOCRIT (test code = HCT) 37.0 % 42.0-52.0 L MEAN CELL VOLUME (test code = MCV) 93.0 fL 80-98 N MEAN CELL HGB (test code = MCH) 30.7 picogram 27.0-33.0 N MEAN CELL HGB CONCETRATION (test code = MCHC) 33.0 gram/dL 33.0-36.0 N RED CELL DISTRIBUTION WIDTH (test code = RDW) 13.2 % 11.6-16.2 N PLATELET COUNT (test code = PLT) 323 K/mm3 150-450 N MEAN PLATELET VOLUME (test c ode = MPV) 10.2 fL 6.7-11.0 N - CT HEAD/BRAIN W/O [id number] 23:02:[address] [facility]Name: TANNER BENDER : 1985 Sex: M Name: TANNER BENDER [facility] : 1985 Age/S: 37 / M [address] [facility] Unit #: [id number] Loc: [place] [address] Phys: Iggy Copeland MD Acct: [id number] Dis Date: Status: REG ER PHONE #: [phone] Exam Date: 07/31/20232254 FAX #: [phone] Reason: headache fall EXAMS: CPT CODE: [id number] CT HEAD/BRAIN W/O CONT 94180 HISTORY: headache fall TECHNIQUE: Noncontrast 2.[address] of the head. Examination acquired within 24 hours of arrival. Automated exposure cont rol for dose reduction. COMPARISON: None FINDINGS: No lacerations or contusions of the scalp or facial soft tissues. Calvarium and skull base are intact. No acte or chronic infarct. No effacement of the sulci or rodriguez-white matter interface. No acute hemorrhage. No intracranial mass, mass effect, ormidline shift. No cortical atrophy. No signs of white matter small-vessel disease. No hydrocephalus.. No extra-axial fluid collection. Visualized paranasal sinuses are clear. Mastoid air cells and middle ear cavities are clear. Orbital contents are unremarkable. IMPRESSION: Negative CT head. Location: at 2302 Reported and signed by:Edu Witt M.D. CC: Robin Fernandez MD; Iggy Copeland MD Technologist:Lana Wilson RT(R) CTDI: DLP: Trnscb Date/Time: 07/31/2023 (2301) [email or web address] Orig Print D/T: S: 07/31/2023 (6780) PAGE 1 Signed Report- XR CHEST 1 [id number] 22:54:00 [facility] 1985 Sex: M FAX: Y Robin Fernandez MD [phone] [place]: St: REG FAX: Iggy Copeland MD [phone] Name: YULIATANNER [facility] : 1985 Age/S: 37/M [address] Unit #: [id number] Loc: [place] [address] Phys: Iggy Copeland MD Acct: [id number] Dis Date: Status: REG ER PHONE #: [phone] Exam Date: 07/31/20232246 FAX #: [phone] Reason: CHEST PAIN EXAMS: CPT CODE: [id number] XR CHEST 1 V 68920 REASON FOR EXAM: CHEST PAIN Exam Order Date: 07/31/2023 10:29 PM Ordering M.Sherman: Iggy Copeland MD PROCEDURE: - XR CHEST 1 V COMPARISON: 07/08/2023 FINDINGS: Lines/Tubes: None The lungs areclear. There is no pleural effusion or pneumothorax. Pulmonary vascularity is within normal limits. Cardiomediastinal silhouette and mediastinal contours are unchanged when accounting for differences in technique. Musculoskeletal structures and visualized portions of the upper abdomen are also unchanged. IMPRESSION: No acute cardiopulmonary process. Location: at 2974 Reported and signed by: Edu Witt M.D. CC: Robin Fernandez MD; Iggy Copeland MD Technologist: Bren Sotelo RT(R) Trnscrd Date/Time/By: 07/31/2023 (2253): By: [email or web address] Orig Print D/T: S: 07/31/2023 (9898) PAGE 1 Signed ReportBASIC METABOLIC [id number] 02:29:00* Test Item Value Reference Range Interpretation Comme nts SODIUM (test code = NA) 140 mEq/L 134-147 N POTASSIUM (test code = K) 3.3 mEq/L 3.4-5.0 L CHLORIDE (test code = CL) 106 mEq/L 100-108 N CARBON DIOXIDE (test code = CO2) 28 mEq/l 21-33 N ANION GAP (test code = GAP) 9 0-20 N GLUCOSE (test code = GLU) 92 mg/dL 77-141 N BLOOD UREA NITROGEN (test code = BUN) 9 mg/dL 7-25 N GLOMERULAR FILTRATION RATE (test code = GFR) 112.1 105-110 H The Glomerular Filtration Rate is a calculated parameterbased on serum Creatinine, patient age and sex. GFR valuesless than 60 mL/min/1.73 square meters are indicative ofChronic Kidney Disease. Values less than 15 mL/min/1.73square meters indicate Kidney failure. The calculation forGFR is based on the CKD-EPI (2020) calculation. This formulais race indifferent and is the recommended formula for GFRby the National Kidney Foundation for Adults.The GFR will not calculate if the sex is unknown or if thepatient's age is <18 years. CREATININE (test code = CREAT) 0.9 mg/dL 0.6-1.3 N CALCIUM (test code = CA) 8.6 mg/dL 8.0-10.5 N HEPATIC FUNCTION [id number] 02:29:00* Test Item Value Reference Range Interpretation Comme nts TOTAL PROTEIN (test code = PROT) 7.4 g/dL 6.4-8.2 N ALBUMIN (test code = ALB) 4.20 g/dL 3.4-5.0 N BILIRUBIN TOTAL (test code = BILT) 0.70 mg/dL 0.0-1.0 N BILIRUBIN DIRECT (test code = BILD) 0.20 MG/DL 0.1-0.3 N SGOT/AST (test code = AST) 23 IUnit/L 8-34 N SGPT/ALT (test code = ALT) 15 IUnit/L 10-49 N ALKALINE PHOSPHATASE TOTAL ( test code = ALKP) 53 IUnit/L 20-125 N BILIRUBIN INDIRECT (test cod e = BILIND) 0.50 MG/DL [id number] 02:29:00* Test Item Value Reference Range Interpretation Comme nts CHOLESTEROL (test code = CHOL) 109 mg/dL <200 [id number] 02:29:00* Test Item Value Reference Range Interpretation Comme nts LIPASE (test code = LIP) 51 U/L 13-57 N HDL [id number] 02:29:00* Test Item Value Reference Range Interpretation Comme nts HDL CHOLESTEROL (test code = HDL) 49.5 MG/DL 40-60 N HDL Interpreta tion < 40.0 mg/dL Low (undesirable, high risk)> 60.0 mg/dL High (desirable, low risk) Reference interval for healthy adults was established by theNational Cholesterol Education Program (NCEP). TROP-I HIGH [id number] 02:29:00* Test Item Value Reference Range Interpretation Comme nts TROP-I HIGH SENSITIVITY (test code = TROPIHS) 8 ng/L 0-54 N CAUTION: Units o f the current test methodology (ng/L) differfrom the prior test methodology (ng/mL) by a factor of 1000. 99th Percentile Upper Reference Limit (URL): Females: 34 ng/LMales: 54 ng/L In order to distinguish acute elevations of high sensitivitytroponin from other clinical conditions, the FourthUniversal Definition of Myocardial Infarction stressesclinical assessment and the demonstration of a rise and/orfall in serial troponin results above the URL. These results were obtained using Siemens AtemmCHANNEL IM TnIHreagent. Results from different methodologies should not becompared to one another as quantitative results and URLs mayvary by method. - CT ABD PELVIS [id number] 02:29:00 [facility] 1985 Sex: M Name: TANNER BENDER [facility] : 1985 Age/S: 37 / M [address] [place] [address] Unit #: [id number] Loc: [place] [address] Phys: Robin Castano Acct: [id number] Dis Date: Status: REG ER PHONE #: [phone] Exam Date: 07/26/2023211 FAX #: [phone] Reason: N/V, ipgastric pain, hx of pancreatitis EXAMS: CPT CODE: [id number] CT ABD PELVIS W/CONT 23847 EXAMINATION: - CTABD PELVIS W/CONT CLINICAL INDICATION: Male, 37 years old with nausea, vomiting, epigastric pain TECHNIQUE: Thin section axial post-contrast contiguous images were obtained through the abdomen and pelvis followed by coronal and sagittal multiplanar reformations. One or more of the following dose reduction techniques were used: Automated exposure control, adjustment of the mA and/or kV according to patient size, and/or iterative reconstruction. Unless otherwise specified, incidental findings do not require dedicated imaging follow-up. COMPARISON: Abdomen and pelvic CT July 13, 2023 FINDINGS: Lower Chest: Mild basilar atelectasis. The heart is normal in size. Liver: Normal in size and contour. No focal lesions. Bile ducts are of normal caliber. Gallbladder: Surgically absent. Pancreas: Normal appearance without focal lesion. Spleen: Normal in size and contour. Adrenals: Normal configuration. Kidneys and ureters: Normal size and contour. No hydronephrosis. Bladder/Reproductive Organs: Normal in appearance. Unremarkable reproductive organs Bowel: Moderate feces, no ileus or obstruction. Fluid distended small bowel could represent enteritis in the appropriate setting. Appendix is not visualized, but there are no inflammatory changes in its expected location. No free air, free fluid,or fluid collection. Lymph nodes: There are no pathologically enlarged abdominopelvic lymph nodes. P AGE 1 Signed Report (CONTINUED) Name: TANNER BENDER [facility] : 1985 Age/S: 37 / M [address] [place] [address] Unit #: [id number] Loc: [place] [address] Phys: Robin Castano Acct: [id number] Dis Date: Status: REG ER PHONE #: [phone] Exam Date: 07/26/2023 021 FAX #: [phone] Reason: N/V, ipgastric pain, hx of pancreatitis EXAMS: CPT CODE: [id number] CT ABD PELVIS W/CONT 00387 (Continued) Retroperitoneum: No mass or hemorrhage. Abdominal aorta and inferior vena cava are normal in course and caliber. Abdominal wall: No hernia or mass. Bones: No acute abnormality or suspicious bony lesion. IMPRESSION: 1. Fluid distended small bowel may correspond to enteritis. 2. No evidence of peripancreatic inflammation. at 0229 Reported and signed by: Fazal Shah M.D. CC: Robin Fernandez MD; Robin HSU Technologist:RT Miki(R)(CT); CTDI: DLP: Trnscb Date/Time: 07/26/2023(228) [email or web address] Orig Print D/T: S: 07/26/2023 (6491) PAGE 2 Signed ReportUA RFLX MICR CULT IF [id number] 02:06:00* Test Item Value Reference Range Interpretation Comme nts UA COLOR (test code = COLU) STRAW YEL/STRAW UA APPEARANCE (test code = APPU) CLEAR CLEAR UA GLUCOSE DIPSTICK (test code = DGLUU) NEGATIVE NEGATIVE UA BILIRUBIN DIPSTICK (test code = BILU) NEGATIVE NEGATIVE UA KETONE DIPSTICK (test code = KETU) NEGATIVE NEGATIVE UA SPECIFIC GRAVITY (test code = SGU) 1.008 1.005-1.030 N UA BLOOD DIPSTICK (test code = JACOB) NEGATIVE NEGATIVE UA PH DIPSTICK (test code = CANDI) 7.0 5.0-7.0 N UA PROTEIN DIPSTICK (test code = PROU) NEGATIVE NEGATIVE UA UROBILINIOGEN DIPSTICK (test code = URO) 0.2 mg/dL 0.2-1.0 UA NITRITE DIPSTICK (test code = LINDA) NEGATIVE NEGATIVE UA LEUKOCYTE ESTERASE DIPSTICK (test code = LEUU) NEGATIVE NEGATIVE UA WBC (test code = WBCU) NONE SEEN WBC/HPF 0-3 UA RBC (test code = RBCU) 0-3 RBC/HPF 0-3 UA WBC NO REFLEX (test code = WBCUCL) NONE SEEN WBC/HPF 0-3 UA BACTERIA (test code = BACU) NONE SEEN /HPF NONE SEEN UA SQUAMOUS CELLS (test code = SQU) NONE SEEN /HPF NONE SEEN Indication for culture: Flank PainSpecimen Description: Clean CatchCBC W/AUTO [id number] 02:01:00* Test Item Value Reference Range Interpretation Comme nts WHITE BLOOD CELL (test code = WBC) 8.1 x10 3/uL 4.5-11.0 N RED BLOOD CELL (test code = RBC) 3.64 x10 6/uL 4.00-5.60 L HEMOGLOBIN (test code = HGB) 11.2 g/dL 12.5-16.9 L HEMATOCRIT (test code = HCT) 33.1 % 37.5-50.7 L MEAN CELL VOLUME (test code = MCV) 90.9 fL 81.0-99.0 N MEAN CELL HGB (test code = MCH) 30.8 pg 27.0-33.0 N MEAN CELL HGB CONCETRATION (test code = MCHC) 33.8 g/dL 33.0-37.0 N RED CELL DISTRIBUTION WIDTH CV (test code = RDW) 12.9 % 11.5-14.5 N RED CELL DISTRIBUTION WIDTH SD (test code = RDW-SD) 42.3 fL 37.0-54.0 N PLATELET COUNT (test code = PLT) 255 x10 3/uL 150-400 N MEAN PLATELET VOLUME (test c ode = MPV) 10.5 fL 7.0-9.0 H NEUTROPHIL % (test code = NT%) 60.0 % 56.0-77.0 N IMMATURE GRANULOCYTE % (test code = IG%) 0.2 % 0.0-2.0 N LYMPHOCYTE % (test code = LY%) 24.1 % 14.0-32.0 N MONOCYTE % (test code = MO%) 8.9 % 4.8-9.0 N EOSINOPHIL % (test code = EO%) 5.7 % 0.3-3.7 H BASOPHIL % (test code = BA%) 1.1 % 0.0-2.0 N NUCLEATED RBC % (test code = NRBC%) 0.0 % 0-0 N NEUTROPHIL # (test code = NT#) 4.83 x10 3/uL 2.0-7.6 N IMMATURE GRANULOCYTE # (test code = IG#) 0.02 x10 3/uL 0.00-0.03 N LYMPHOCYTE # (test code = LY#) 1.94 x10 3/uL 1.0-3.8 N MONOCYTE # (test code = MO#) 0.72 x10 3/uL 0.1-0.8 N EOSINOPHIL # (test code = EO#) 0.46 x10 3/uL 0.0-0.2 H BASOPHIL # (test code = BA#) 0.09 x10 3/uL 0.0-0.2 N NUCLEATED RBC # (test code = NRBC#) 0.00 x10 3/uL 0.0-0.1 N TROP-I HIGH [id number] 17:32:00* Test Item Value Reference Range Interpretation Comme nts TROP-I HIGH SENSITIVITY (test code = TROPIHS) < 3 ng/L 0-54 N CAUTION: Units o f the current test methodology (ng/L) differfrom the prior test methodology (ng/mL) by a factor of 1000. 99th Percentile Upper Reference Limit (URL): Females: 34 ng/LMales: 54 ng/L In order to distinguish acute elevations of high sensitivitytroponin from other clinical conditions, the FourthUniversal Definition of Myocardial Infarction stressesclinical assessment and the demonstration of a rise and/orfall in serial troponin results above the URL. These results were obtained using Siemens Atellica IM TnIHreagent. Results from different methodologies should not becompared to one another as quantitative results and URLs mayvary by method. - CT ABD PELVIS [id number] 17:11:00 [facility] 1985 Sex: MName: TANNER BENDERL [facility] : 1985 Age/S: 37 / M [address] [place] [address] Unit #: [id number] Loc: [place] [address] Phys: Severiano Newberry [facility] Acct: [id number] Dis Date:Status: REG ER PHONE #: [phone] Exam Date: 07/13/20231654 FAX #: [phone] Reason: LLQ pain EXAMS: CPT CODE: [id number] CT ABD PELVIS W/CONT 58443 EXAM: - CT ABD PELVIS W/CONT INDICATION: LLQ pain Location: T18 TECHNIQUE: Contrast - IV contrast was given. No oral contrast was given Portalvenous phase - abdomen and pelvis No delayed phase images were obtained. Reconstructions - coronal and sagittal planes This exam was performed according to our departmental dose-optimization program,which includes automated exposure control, adjustment of the mA and/or kV according to patient sizeand/or use of iterative reconstruction technique. Unless otherwise specified, incidental findings do not require dedicated imaging follow up. COMPARISON: None FINDINGS: Statements: None. Thoracic: Included images of the lower chest demonstrate no abnormalities. Hepatobiliary: The liver is normal without focal lesion. Cholecystectomy. No biliary dilation. Pancreas: Normal. Spleen: Normal. Adrenals: Normal. Genitourinary: The kidneys are normal. No evidence of hydronephrosis. Evaluation of the bladder is limited, but no obvious bladder abnormality is present. Gastrointestinal: No bowel obstruction or perienteric inflammation. The appendix is normal. PAGE 1 Signed Report (CONTINUED) Name: TANNER BENDER [facility] : 1985 Age/S: 37 / M [address] [place] [address] Unit #: [id number] Loc: [place] [address] Phys: Severiano Newberry [facility] Acct: [id number] Dis Date: Status: REG ER PHONE #: [phone] Exam Date: 07/13/20231654 FAX #: [phone] Reason: LLQ pain EXAMS: CPT CODE: [id number] CT ABD PELVIS W/CONT 85958 (Continued) Vascular: No evidence of aneurysm or dissection. Lymphatics: No enlarged lymph nodes by CT size criteria. Bones/Soft Tissues: No acute osseousfindings. No ventral hernias. Peritoneum/Other: No extraluminal fluid. IMPRESSION: 1. Unremarkable CT of the abdomen and pelvis. at 1711 Reported and signed by: Davion Mcfarlane M.D. CC: Robin Fernandez MD; Severiano GLYNN AGAP Coni Technologist:RT Darrel(R); [place] CTDI: DLP: Trnscb Date/Time: 07/13/2023 (171) [email or web address] Orig Print D/T: S: 07/13/2023 (171) PAGE 2 Signed ReportBASIC METABOLIC [id number] 16:29:00* Test Item Value Reference Range Interpretation Comme nts SODIUM (test code = NA) 138 mEq/L 134-147 N POTASSIUM (test code = K) 3.5 mEq/L 3.4-5.0 N CHLORIDE (test code = CL) 105 mEq/L 100-108 N CARBON DIOXIDE (test code = CO2) 27 mEq/l 21-33 N ANION GAP (test code = GAP) 9 0-20 N GLUCOSE (test code = GLU) 114 mg/dL 77-141 N BLOOD UREA NITROGEN (test code = BUN) 6 mg/dL 7-25 L GLOMERULAR FILTRATION RATE (test code = GFR) 98.8 105-110 L The Glomerular Filtration Rate is a calculated parameterbased on serum Creatinine, patient age and sex. GFR valuesless than 60 mL/min/1.73 square meters are indicative ofChronic Kidney Disease. Values less than 15 mL/min/1.73square meters indicate Kidney failure. The calculation forGFR is based on the CKD-EPI (2020) calculation. This formulais race indifferent and is the recommended formula for GFRby the National Kidney Foundation for Adults.The GFR will not calculate if the sex is unknown or if thepatient's age is <18 years. CREATININE (test code = CREAT) 1.0 mg/dL 0.6-1.3 N CALCIUM (test code = CA) 8.4 mg/dL 8.0-10.5 N HEPATIC FUNCTION [id number] 16:29:00* Test Item Value Reference Range Interpretation Comme nts TOTAL PROTEIN (test code = PROT) 7.0 g/dL 6.4-8.2 N ALBUMIN (test code = ALB) 4.00 g/dL 3.4-5.0 N BILIRUBIN TOTAL (test code = BILT) 0.90 mg/dL 0.0-1.0 N BILIRUBIN DIRECT (test code = BILD) 0.40 MG/DL 0.1-0.3 H SGOT/AST (test code = AST) 18 IUnit/L 8-34 N SGPT/ALT (test code = ALT) 19 IUnit/L 10-49 N ALKALINE PHOSPHATASE TOTAL ( test code = ALKP) 49 IUnit/L 20-125 N BILIRUBIN INDIRECT (test cod e = BILIND) 0.50 MG/DL [id number] 16:29:00* Test Item Value Reference Range Interpretation Comme nts LIPASE (test code = LIP) 327 U/L 13-57 H LACTIC [id number] 16:21:00* Test Item Value Reference Range Interpretation Comme nts LACTIC ACID (test code = LACT) 2.0 mmol/L 0.4-1.9 H UA RFLX MICR CULT IF [id number] 16:13:00* Test Item Value Reference Range Interpretation Comme nts UA COLOR (test code = COLU) YELLOW YEL/STRAW UA APPEARANCE (test code = APPU) CLEAR CLEAR UA GLUCOSE DIPSTICK (test co de = DGLUU) NEGATIVE NEGATIVE UA BILIRUBIN DIPSTICK (test code = BILU) NEGATIVE NEGATIVE UA KETONE DIPSTICK (test cod e = KETU) NEGATIVE NEGATIVE UA SPECIFIC GRAVITY (test co de = SGU) 1.023 1.005-1.030 N UA BLOOD DIPSTICK (test code = JACOB) NEGATIVE NEGATIVE UA PH DIPSTICK (test code = CANDI) 5.0 5.0-7.0 N UA PROTEIN DIPSTICK (test co de = PROU) NEGATIVE NEGATIVE UA UROBILINIOGEN DIPSTICK (test code = URO) 0.2 mg/dL 0.2-1.0 UA NITRITE DIPSTICK (test co de = LINDA) NEGATIVE NEGATIVE UA LEUKOCYTE ESTERASE DIPSTI CK (test code = LEUU) NEGATIVE NEGATIVE UA WBC (test code = WBCU) 0-3 WBC/HPF 0-3 UA RBC (test code = RBCU) 0-3 RBC/HPF 0-3 UA WBC NO REFLEX (test code = WBCUCL) 0-3 WBC/HPF 0-3 UA BACTERIA (test code = BACU) NONE SEEN /HPF NONE SEEN UA SQUAMOUS CELLS (test code = SQU) 0-5 /HPF NONE SEEN UA MUCUS (test code = MUCU) TRACE /LPF NONE SEEN Indication for culture: Suprapubic PainSpecimen Description: CLEAN CATCHCBC W/AUTO [id number] 16:08:00* Test Item Value Reference Range Interpretation Comme nts WHITE BLOOD CELL (test code = WBC) 7.3 x10 3/uL 4.5-11.0 N RED BLOOD CELL (test code = RBC) 3.80 x10 6/uL 4.00-5.60 L HEMOGLOBIN (test code = HGB) 11.7 g/dL 12.5-16.9 L HEMATOCRIT (test code = HCT) 35.1 % 37.5-50.7 L MEAN CELL VOLUME (test code = MCV) 92.4 fL 81.0-99.0 N MEAN CELL HGB (test code = MCH) 30.8 pg 27.0-33.0 N MEAN CELL HGB CONCETRATION (test code = MCHC) 33.3 g/dL 33.0-37.0 N RED CELL DISTRIBUTION WIDTH CV (test code = RDW) 13.3 % 11.5-14.5 N RED CELL DISTRIBUTION WIDTH SD (test code = RDW-SD) 45.1 fL 37.0-54.0 N PLATELET COUNT (test code = PLT) 308 x10 3/uL 150-400 N MEAN PLATELET VOLUME (test c ode = MPV) 10.6 fL 7.0-9.0 H NEUTROPHIL % (test code = NT%) 53.3 % 56.0-77.0 L IMMATURE GRANULOCYTE % (test code = IG%) 0.3 % 0.0-2.0 N LYMPHOCYTE % (test code = LY%) 36.2 % 14.0-32.0 H MONOCYTE % (test code = MO%) 6.9 % 4.8-9.0 N EOSINOPHIL % (test code = EO%) 2.3 % 0.3-3.7 N BASOPHIL % (test code = BA%) 1.0 % 0.0-2.0 N NUCLEATED RBC % (test code = NRBC%) 0.0 % 0-0 N NEUTROPHIL # (test code = NT#) 3.91 x10 3/uL 2.0-7.6 N IMMATURE GRANULOCYTE # (test code = IG#) 0.02 x10 3/uL 0.00-0.03 N LYMPHOCYTE # (test code = LY#) 2.66 x10 3/uL 1.0-3.8 N MONOCYTE # (test code = MO#) 0.51 x10 3/uL 0.1-0.8 N EOSINOPHIL # (test code = EO#) 0.17 x10 3/uL 0.0-0.2 N BASOPHIL # (test code = BA#) 0.07 x10 3/uL 0.0-0.2 N NUCLEATED RBC # (test code = NRBC#) 0.00 x10 3/uL 0.0-0.1 N - XR CHEST 1 [id number] 17:11:00 [facility] [place] : 1985 Sex: M FAX: Robin Rueda MD [phone] [place]: B St: [facility] FAX: Gt Smallwood Name: YULIA,TANNER WAYNE [facility] : 1985 Age/S: 37/M [address] [facility] Unit #: [id number] Loc: [place], [place] [address] Phys: Gt Smallwood MD Acct: [id number] Dis Date: Status: REG ER PHONE #: [phone] Exam Date: 07/08/2023 1559 FAX #: [phone] Reason: CHEST PAIN EXAMS: CPT CODE: [id number] XR CHEST 1 V 07169 REASON FOR EXAM: CHEST PAIN Exam Order Date: 07/08/2023 2:28 PM Ordering M.DMark: Gt Calderon MD PROCEDURE: - XR CHEST 1 V COMPARISON: Chest x-ray 2 days earlier FINDINGS: The lungs are clear. There is no pleural effusion or pneumothorax. Pulmonary vascularity is within normal limits. Cardiomediastinal silhouette is normal in size for technique. The mediastinal contours are within normal limits. Musculoskeletal structures are within normal limits. The visualized upper abdomen is within normal limits. IMPRESSION: No acute cardiopulmonary process. Location: [facility] Electronically Si gned by Jackson Perez MD on 07/08/2023 at 1711 Reported and signed by: Jackson Perez MD CC: Robin Fernandez MD; Gt Smallwood MD Technologist: Aileen Burton RT(R); DRISS TAYLOR RT(R)Trnscrd Date/Time/By: 07/08/2023 (1710) : By: JuliánR.[email or web address] Orig Print D/T: S: 07/08/2023 (1713) PAGE1 Signed ReportBASIC METABOLIC [id number] 16:19:00* Test Item Value Reference Range Interpretation Comme nts SODIUM (test code = NA) 139 mmol/L 136-145 N POTASSIUM (test code = K) 3.9 mmol/L 3.5-5.1 N CHLORIDE (test code = CL) 106.0 mmol/L 98-107 N CARBON DIOXIDE (test code = CO2) 29.0 mmol/L 21-32 N ANION GAP (test code = GAP) 7.9 mmol/L 10-20 L GLUCOSE (test code = GLU) 77 mg/dL 74-106 N BLOOD UREA NITROGEN (test code = BUN) 6 mg/dL 7-18 L GLOMERULAR FILTRATION RATE (test code = GFR) > 60 mL/min >=60 The Glomerular Filtration Rate is a calculated parameterbased on serum Creatinine, patient age and sex. GFR valuesless than 60 mL/min/1.73 square meters are indicative ofChronic Kidney Disease. Values less than 15 mL/min/1.73square meters indicate Kidney failure. The calculation forGFR is based on the CKD-EPI (2020) calculation. This formulais race indifferent and is the recommended formula for GFRby the National Kidney Foundation for Adults.The GFR will not calculate if the sex is unknown or if thepatient's age is <18 years. CREATININE (test code = CREAT) 1.00 mg/dL 0.7-1.3 N BUN/CREATININE RATIO (test code = BUN/CREA) 5.8 10-20 L CALCIUM (test code = CA) 8.2 mg/dL 8.5-10.1 L [id number] 16:19:00* Test Item Value Reference Range Interpretation Comme nts TROPONIN-HS (test code = TROPI) <4.0 pg/mL 0-54 N 99th Percentile Upper Reference Limit (URL):Females: 34 pg/mLMales: 54 pg/mL In order to distinguish acute elevations of high sensitivitytroponin from other clinical conditions, the FourthUniversal Definition of Myocardial Infarction stressesclinical assessment and the demonstration of a rise and/orfall in serial troponin results above the URL. These results were obtained using damntheradio IM TnIHreagent. Results from different methodologies should not becompared to one another as quantitative results and URLs mayvary by method. NOTE: A Positive Bias may occur for patients taking Biotin Supplements.NOTE: Current test methodology (pg/mL) units differ from prior test methodology (ng/mL) by a factor of 1000. CBC W/O [id number] 16:16:00* Test Item Value Reference Range Interpretation Comme nts WHITE BLOOD CELL (test code = WBC) 7.2 K/mm3 4.5-12.5 N RED BLOOD CELL (test code = RBC) 3.99 mill/mm3 4.0-5.8 L HEMOGLOBIN (test code = HGB) 12.0 gram/dL 13.0-17.5 L HEMATOCRIT (test code = HCT) 36.6 % 42.0-52.0 L MEAN CELL VOLUME (test code = MCV) 91.7 fL 80-98 N MEAN CELL HGB (test code = MCH) 30.1 picogram 27.0-33.0 N MEAN CELL HGB CONCETRATION (test code = MCHC) 32.8 gram/dL 33.0-36.0 L RED CELL DISTRIBUTION WIDTH (test code = RDW) 13.1 % 11.6-16.2 N PLATELET COUNT (test code = PLT) 312 K/mm3 150-450 N MEAN PLATELET VOLUME (test c ode = MPV) 10.6 fL 6.7-11.0 N BASIC METABOLIC [id number] 22:49:00* Test Item Value Reference Range Interpretation Comme nts SODIUM (test code = NA) 137 mEq/L 134-147 N POTASSIUM (test code = K) 3.5 mEq/L 3.4-5.0 N CHLORIDE (test code = CL) 104 mEq/L 100-108 N CARBON DIOXIDE (test code = CO2) 28 mEq/l 21-33 N ANION GAP (test code = GAP) 9 0-20 N GLUCOSE (test code = GLU) 112 mg/dL 77-141 N BLOOD UREA NITROGEN (test code = BUN) 9 mg/dL 7-25 N GLOMERULAR FILTRATION RATE (test code = GFR) 88.1 105-110 L The Glomerular Filtration Rate is a calculated parameterbased on serum Creatinine, patient age and sex. GFR valuesless than 60 mL/min/1.73 square meters are indicative ofChronic Kidney Disease. Values less than 15 mL/min/1.73square meters indicate Kidney failure. The calculation forGFR is based on the CKD-EPI (202) calculation. This formulais race indifferent and is the recommended formula for GFRby the National Kidney Foundation for Adults.The GFR will not calculate if the sex is unknown or if thepatient's age is <18 years. CREATININE (test code = CREAT) 1.1 mg/dL 0.6-1.3 N CALCIUM (test code = CA) 8.3 mg/dL 8.0-10.5 N HEPATIC FUNCTION [id number] 22:49:00* Test Item Value Reference Range Interpretation Comme nts TOTAL PROTEIN (test code = PROT) 6.8 g/dL 6.4-8.2 N ALBUMIN (test code = ALB) 3.80 g/dL 3.4-5.0 N BILIRUBIN TOTAL (test code = BILT) 1.10 mg/dL 0.0-1.0 H BILIRUBIN DIRECT (test code = BILD) 0.40 MG/DL 0.1-0.3 H BILIRUBIN INDIRECT (test cod e = BILIND) 0.70 MG/DL SGOT/AST (test code = AST) 20 IUnit/L 8-34 N SGPT/ALT (test code = ALT) 24 IUnit/L 10-49 N ALKALINE PHOSPHATASE TOTAL ( test code = ALKP) 51 IUnit/L 20-125 N [id number] 22:49:00* Test Item Value Reference Range Interpretation Comme nts LIPASE (test code = LIP) 64 U/L 13-57 H [id number] 22:49:00* Test Item Value Reference Range Interpretation Comme nts MAGNESIUM (test code = MAG) 1.98 mg/dL 1.6-2.6 N TROP-I HIGH [id number] 22:49:00* Test Item Value Reference Range Interpretation Comme nts TROP-I HIGH SENSITIVITY (test code = TROPIHS) < 3 ng/L 0-54 N CAUTION: Units o f the current test methodology (ng/L) differfrom the prior test methodology (ng/mL) by a factor of 1000. 99th Percentile Upper Reference Limit (URL): Females: 34 ng/LMales: 54 ng/L In order to distinguish acute elevations of high sensitivitytroponin from other clinical conditions, the FourthUniversal Definition of Myocardial Infarction stressesclinical assessment and the demonstration of a rise and/orfall in serial troponin results above the URL. These results were obtained using damntheradio IM TnIHreagent. Results from different methodologies should not becompared to one another as quantitative results and URLs mayvary by method. PROTHROMBIN [id number] 22:40:00* Test Item Value Reference Range Interpretation Comme [facility] PROTHROMBIN TIME PATIENT (test code = PTP) 11.7 SECONDS 9.3-12.9 N INTERNATIONAL NORMAL RATIO (test code = INR) 1.1 0.8-1.2 N TARGET INR BY INDICATION Indication INR1. Prophylaxis of venous thrombosis 2.0 - 3.0 (orthopedic surgery), Prophylaxis of venous thrombosis (other than high-risk surgery), Treatment of Deep Vein Thrombosis/Pulmonary Embolism, Prevention of systemic embolism - Tissue heart valves, Acute Myocardial Infarction (to prevent systemic embolism), Valvular heart disease, Atrial Fibrillation, Bileaflet mechanical valve in aortic position.2. Mechanical prosthetic valves (high risk), 2.5 - 3.5 Presence of Lupus Anticoagulant or Antiphospholipid Antibodies, Prevention of systemic embolism - Acute Myocardial Infarction (to prevent recurrent infarct). THROMBOPLASTIN TIME [id number] 22:40:00* Test Item Value Reference Range Interpretation Comme nts THROMBOPLASTIN TIME PARTIAL (test code = PTT) 33.1 Seconds 25.0-39.5 N Therapeutic Rang e: 50.4 - 88.3 Seconds Effective 07/28/2018 CBC W/AUTO [id number] 22:28:00* Test Item Value Reference Range Interpretation Comme nts WHITE BLOOD CELL (test code = WBC) 6.9 x10 3/uL 4.5-11.0 N RED BLOOD CELL (test code = RBC) 3.72 x10 6/uL 4.00-5.60 L HEMOGLOBIN (test code = HGB) 11.4 g/dL 12.5-16.9 L HEMATOCRIT (test code = HCT) 33.9 % 37.5-50.7 L MEAN CELL VOLUME (test code = MCV) 91.1 fL 81.0-99.0 N MEAN CELL HGB (test code = MCH) 30.6 pg 27.0-33.0 N MEAN CELL HGB CONCETRATION (test code = MCHC) 33.6 g/dL 33.0-37.0 N RED CELL DISTRIBUTION WIDTH CV (test code = RDW) 13.1 % 11.5-14.5 N RED CELL DISTRIBUTION WIDTH SD (test code = RDW-SD) 42.5 fL 37.0-54.0 N PLATELET COUNT (test code = PLT) 282 x10 3/uL 150-400 N MEAN PLATELET VOLUME (test c ode = MPV) 10.6 fL 7.0-9.0 H NEUTROPHIL % (test code = NT%) 46.7 % 56.0-77.0 L IMMATURE GRANULOCYTE % (test code = IG%) 0.1 % 0.0-2.0 N LYMPHOCYTE % (test code = LY%) 38.3 % 14.0-32.0 H MONOCYTE % (test code = MO%) 8.3 % 4.8-9.0 N EOSINOPHIL % (test code = EO%) 5.4 % 0.3-3.7 H BASOPHIL % (test code = BA%) 1.2 % 0.0-2.0 N NUCLEATED RBC % (test code = NRBC%) 0.0 % 0-0 N NEUTROPHIL # (test code = NT#) 3.23 x10 3/uL 2.0-7.6 N IMMATURE GRANULOCYTE # (test code = IG#) 0.01 x10 3/uL 0.00-0.03 N LYMPHOCYTE # (test code = LY#) 2.64 x10 3/uL 1.0-3.8 N MONOCYTE # (test code = MO#) 0.57 x10 3/uL 0.1-0.8 N EOSINOPHIL # (test code = EO#) 0.37 x10 3/uL 0.0-0.2 H BASOPHIL # (test code = BA#) 0.08 x10 3/uL 0.0-0.2 N NUCLEATED RBC # (test code = NRBC#) 0.00 x10 3/uL 0.0-0.1 N - XR CHEST 1 [id number] 21:45:00 [facility] : 1985 Sex: MFAX: Robin Rueda MD [phone] [place]: St: REG FAX: Musa Langford MD [phone] Name: TANNER BENDER [facility] : 1985 Age/S: 37/M [address] [place] [address] Blvd Unit #: [id number] Loc: [place] [address] Phys: Musa Langford MD Acct: [id number] Dis Date: Status: REG ER PHONE #: [phone] Exam Date: 07/06/20232134 FAX #: [phone] Reason: Chest Pain EXAMS: CPT CODE: [id number] XR CHEST 1 V 91403 EXAM: - XR CHEST 1 V HISTORY: Chest pain. COMPARISON: July 03, 2023. FINDINGS: Single AP view of the chest is provided. Heart size and vascularity are within normal limits. There is no evidence of a focal consolidation. There is no pleural effusion or pneumothorax. There is no definite acute osseous abnormality. IMPRESSION: No radiographic evidence of acute cardiopulmonary process. at 2145 Reported and signed by: Marbin Fish M.D. CC: Robin Fernandez MD; Musa Langford MD Technologist: RT Marlene(R) Trnscrd Date/Time/By: 07/06/2023 (2144) : By: [email or web address] Orig Print D/T: S: 07/06/2023 (2147) PAGE 1 Signed ReportBASIC METABOLIC PANEL 2023-07-03 21:26:00* Test Item Value Reference Range Interpretation Comme nts SODIUM (test code = NA) 136 mmol/L 136-145 N POTASSIUM (test code = K) 3.6 mmol/L 3.5-5.1 N CHLORIDE (test code = CL) 101.0 mmol/L 98-107 N CARBON DIOXIDE (test code = CO2) 29.0 mmol/L 21-32 N ANION GAP (test code = GAP) 9.6 10-20 L GLUCOSE (test code = GLU) 103 mg/dL 74-106 N BLOOD UREA NITROGEN (test code = BUN) 15 mg/dL 7-18 N GLOMERULAR FILTRATION RATE (test code = GFR) > 60 mL/min >=60 The Glomerular Filtration Rate is a calculated parameterbased on serum Creatinine, patient age and sex. GFR valuesless than 60 mL/min/1.73 square meters are indicative ofChronic Kidney Disease. Values less than 15 mL/min/1.73square meters indicate Kidney failure. The calculation forGFR is based on the CKD-EPI (2020) calculation. This formulais race indifferent and is the recommended formula for GFRby the National Kidney Foundation for Adults.The GFR will not calculate if the sex is unknown or if thepatient's age is <18 years. CREATININE (test code = CREAT) 1.00 mg/dL 0.7-1.3 N BUN/CREATININE RATIO (test code = BUN/CREA) 14.3 10-20 N CALCIUM (test code = CA) 8.8 mg/dL 8.5-10.1 N HEPATIC FUNCTION [id number] 21:26:00* Test Item Value Reference Range Interpretation Comme nts TOTAL PROTEIN (test code = PROT) 7.1 gram/dL 6.4-8.2 N ALBUMIN (test code = ALB) 3.9 g/dL 3.4-5.0 N GLOBULIN (test code = GLOB) 3.2 gram/dL 2.7-4.2 N ALBUMIN/GLOBULIN RATIO (test code = A/G) 1.2 0.75-1.50 N BILIRUBIN TOTAL (test code = BILT) 1.60 mg/dL 0.0-1.0 H BILIRUBIN DIRECT (test code = BILD) 0.60 mg/dL 0.0-0.20 H SGOT/AST (test code = AST) 19 IUnit/L 15-37 N SGPT/ALT (test code = ALT) 18 IUnit/L 12-78 N ALKALINE PHOSPHATASE TOTAL (test code = ALKP) 62 IUnit/L 45-117 N Note change in reference range due to change in reagent. [id number] 21:26:00* Test Item Value Reference Range Interpretation Comme nts LIPASE (test code = LIP) 60 U/L 12-57 H [id number] 21:26:00* Test Item Value Reference Range Interpretation Comme nts TROPONIN-HS (test code = TROPI) 6.060 pg/mL 0-54 N 99th Percentile Upper Reference Limit (URL):Females: 34 pg/mLMales: 54 pg/mL In order to distinguish acute elevations of high sensitivitytroponin from other clinical conditions, the FourthUniversal Definition of Myocardial Infarction stressesclinical assessment and the demonstration of a rise and/orfall in serial troponin results above the URL. These results were obtained using Siemens AtemmCHANNEL IM TnIHreagent. Results from different methodologies should not becompared to one another as quantitative results and URLs mayvary by method. NOTE: A Positive Bias may occur for patients taking Biotin Supplements.NOTE: Current test methodology (pg/mL) units differ from prior test methodology (ng/mL) by a factor of 1000. - XR CHEST 1 [id number] 21:20:[address] [facility]Name: TANNER BENDER : 1985 Sex: M FAX: Madi Damon [phone] [place]: B St: REG FAX: Robin Rueda MD [phone] Name: TANNER BENDER [facility] : 1985 Age/S: 37/M Samaria Giang Unit #: [id number] Loc: [place] [address] Phys: Madi Clark MD Acct: [id number] Dis Date: Status: REG ER PHONE #: [phone] Exam Date: 07/03/20232109 FAX #: [phone] Reason: CHEST PAIN EXAMS: CPT CODE: [id number] XR CHEST 1 V 02564 REASON FOR EXAM: CHEST PAIN Exam Order Date: 07/03/2023 8:54 PM OrderingM.D.: Madi Clark MD PROCEDURE: - XR CHEST 1 V COMPARISON: 06/30/2023 FINDINGS: Lines/Tubes: None The lungs are clear. There is no pleural effusion or pneumothorax. Pulmonary vascularity is within normal limits. Cardiomediastinal silhouette and mediastinal contours are unchanged when accounting for differences in technique. Musculoskeletal structures and visualized portions of the upper abdomen are also unchanged. IMPRESSION: No acute cardiopulmonary process. Location: at 2119 Reported and signed by: Edu Witt M.D. CC: Madi Clark MD; Robin Fernandez MD Technologist: Bren Sotelo RT(R); ... Trnscrd Date/Time/By: 07/03/2023 (2119) : By: [email or web address] Orig Print D/T: S: 07/03/2023 (2122) PAGE 1 Signed ReportCBC W/O [id number] 21:07:00* Test Item Value Reference Range Interpretation Comme nts WHITE BLOOD CELL (test code = WBC) 6.5 K/mm3 4.5-12.5 N RED BLOOD CELL (test code = RBC) 4.06 mill/mm3 4.0-5.8 N HEMOGLOBIN (test code = HGB) 12.7 gram/dL 13.0-17.5 L HEMATOCRIT (test code = HCT) 37.2 % 42.0-52.0 L MEAN CELL VOLUME (test code = MCV) 91.6 fL 80-98 N MEAN CELL HGB (test code = MCH) 31.3 picogram 27.0-33.0 N MEAN CELL HGB CONCETRATION (test code = MCHC) 34.1 gram/dL 33.0-36.0 N RED CELL DISTRIBUTION WIDTH (test code = RDW) 12.9 % 11.6-16.2 N PLATELET COUNT (test code = PLT) 310 K/mm3 150-450 N MEAN PLATELET VOLUME (test c ode = MPV) 9.9 fL 6.7-11.0 N - XR CHEST 1 [id number] 16:43:00 [facility] : 1985 Sex: MFAX: Roibn Rueda MD [phone] [place]: St: ADM FAX: Thor Brown MD Name: [facility] : 1985 Age/S: 37/M [address] [place] [address] Unit #: [id number] Loc: [place] [place] [address] Phys:Thor Brown MD Acct: [id number] Dis Date: Status: ADM IN PHONE #: [phone] Exam Date: 06/30/2023 1628 FAX #: [phone] Reason: Chest Pain EXAMS: CPT CODE: [id number] XR CHEST 1 V [id number] REASONFOR EXAM: Chest pain. COMPARISON: June 26, 2023. Chest, single view frontal projection. The lungs are well-inflated and clear. Heart size is normal. No effusion or pneumothorax can be seen. Osseous s tructures appear to be intact. Stable exam. IMPRESSION: No acute cardiopulmonary disease. Location:[facility] at 1643 Reported and signed by: Anson Bee M.D. CC: Robin Fernandez MD; Thor Brown MD Technologist: RT Juliet(Aaron) Trnscrd Date/Time/By: 06/30/2023 (1642) : By: [email or web address] Orig Print D/T: S: 06/30/2023 (4649) PAGE 1 Signed ReportBASIC METABOLIC [id number] 13:51:00* Test Item Value Reference Range Interpretation Comme nts SODIUM (test code = NA) 134 mEq/L 134-147 N POTASSIUM (test code = K) 4.4 mEq/L 3.4-5.0 N CHLORIDE (test code = CL) 103 mEq/L 100-108 N CARBON DIOXIDE (test code = CO2) 25 mEq/l 21-33 N ANION GAP (test code = GAP) 10 0-20 N GLUCOSE (test code = GLU) 125 mg/dL 77-141 N BLOOD UREA NITROGEN (test code = BUN) 10 mg/dL 7-25 N GLOMERULAR FILTRATION RATE (test code = GFR) 88.1 105-110 L The Glomerular Filtration Rate is a calculated parameterbased on serum Creatinine, patient age and sex. GFR valuesless than 60 mL/min/1.73 square meters are indicative ofChronic Kidney Disease. Values less than 15 mL/min/1.73square meters indicate Kidney failure. The calculation forGFR is based on the CKD-EPI (2020) calculation. This formulais race indifferent and is the recommended formula for GFRby the National Kidney Foundation for Adults.The GFR will not calculate if the sex is unknown or if thepatient's age is <18 years. CREATININE (test code = CREAT) 1.1 mg/dL 0.6-1.3 N CALCIUM (test code = CA) 8.2 mg/dL 8.0-10.5 N TROP-I HIGH [id number] 13:51:00* Test Item Value Reference Range Interpretation Comme nts TROP-I HIGH SENSITIVITY (test code = TROPIHS) < 3 ng/L 0-54 N CAUTION: Units o f the current test methodology (ng/L) differfrom the prior test methodology (ng/mL) by a factor of 1000. 99th Percentile Upper Reference Limit (URL): Females: 34 ng/LMales: 54 ng/L In order to distinguish acute elevations of high sensitivitytroponin from other clinical conditions, the FourthUniversal Definition of Myocardial Infarction stressesclinical assessment and the demonstration of a rise and/orfall in serial troponin results above the URL. These results were obtained using Siemens AtemmCHANNEL IM TnIHreagent. Results from different methodologies should not becompared to one another as quantitative results and URLs mayvary by method. CBC W/AUTO [id number] 13:37:00* Test Item Value Reference Range Interpretation Comme nts WHITE BLOOD CELL (test code = WBC) 8.9 x10 3/uL 4.5-11.0 N RED BLOOD CELL (test code = RBC) 4.22 x10 6/uL 4.00-5.60 N HEMOGLOBIN (test code = HGB) 12.9 g/dL 12.5-16.9 N HEMATOCRIT (test code = HCT) 38.7 % 37.5-50.7 N MEAN CELL VOLUME (test code = MCV) 91.7 fL 81.0-99.0 N MEAN CELL HGB (test code = MCH) 30.6 pg 27.0-33.0 N MEAN CELL HGB CONCETRATION (test code = MCHC) 33.3 g/dL 33.0-37.0 N RED CELL DISTRIBUTION WIDTH CV (test code = RDW) 13.1 % 11.5-14.5 N RED CELL DISTRIBUTION WIDTH SD (test code = RDW-SD) 43.8 fL 37.0-54.0 N PLATELET COUNT (test code = PLT) 336 x10 3/uL 150-400 N MEAN PLATELET VOLUME (test c ode = MPV) 10.1 fL 7.0-9.0 H NEUTROPHIL % (test code = NT%) 55.7 % 56.0-77.0 L IMMATURE GRANULOCYTE % (test code = IG%) 0.3 % 0.0-2.0 N LYMPHOCYTE % (test code = LY%) 32.2 % 14.0-32.0 H MONOCYTE % (test code = MO%) 7.1 % 4.8-9.0 N EOSINOPHIL % (test code = EO%) 3.7 % 0.3-3.7 N BASOPHIL % (test code = BA%) 1.0 % 0.0-2.0 N NUCLEATED RBC % (test code = NRBC%) 0.0 % 0-0 N NEUTROPHIL # (test code = NT#) 4.96 x10 3/uL 2.0-7.6 N IMMATURE GRANULOCYTE # (test code = IG#) 0.03 x10 3/uL 0.00-0.03 N LYMPHOCYTE # (test code = LY#) 2.87 x10 3/uL 1.0-3.8 N MONOCYTE # (test code = MO#) 0.63 x10 3/uL 0.1-0.8 N EOSINOPHIL # (test code = EO#) 0.33 x10 3/uL 0.0-0.2 H BASOPHIL # (test code = BA#) 0.09 x10 3/uL 0.0-0.2 N NUCLEATED RBC # (test code = NRBC#) 0.00 x10 3/uL 0.0-0.1 N [id number] 23:30:00* Test Item Value Reference Range Interpretation Comme nts TROPONIN-HS (test code = TROPI) <4.0 pg/mL 0-54 N 99th Percentile Upper Reference Limit (URL):Females: 34 pg/mLMales: 54 pg/mL In order to distinguish acute elevations of high sensitivitytroponin from other clinical conditions, the FourthUniversal Definition of Myocardial Infarction stressesclinical assessment and the demonstration of a rise and/orfall in serial troponin results above the URL. These results were obtained using Siemens Enforta IM TnIHreagent. Results from different methodologies should not becompared to one another as quantitative results and URLs mayvary by method. NOTE: A Positive Bias may occur for patients taking Biotin Supplements.NOTE: Current test methodology (pg/mL) units differ from prior test methodology (ng/mL) by a factor of 1000. BASIC METABOLIC [id number] 20:30:00* Test Item Value Reference Range Interpretation Comme nts SODIUM (test code = NA) 137 mmol/L 136-145 N POTASSIUM (test code = K) 4.4 mmol/L 3.5-5.1 N CHLORIDE (test code = CL) 104.0 mmol/L 98-107 N CARBON DIOXIDE (test code = CO2) 26.0 mmol/L 21-32 N ANION GAP (test code = GAP) 11.4 10-20 N GLUCOSE (test code = GLU) 96 mg/dL 74-106 N BLOOD UREA NITROGEN (test code = BUN) 10 mg/dL 7-18 N GLOMERULAR FILTRATION RATE (test code = GFR) > 60 mL/min >=60 The Glomerular Filtration Rate is a calculated parameterbased on serum Creatinine, patient age and sex. GFR valuesless than 60 mL/min/1.73 square meters are indicative ofChronic Kidney Disease. Values less than 15 mL/min/1.73square meters indicate Kidney failure. The calculation forGFR is based on the CKD-EPI (202) calculation. This formulais race indifferent and is the recommended formula for GFRby the National Kidney Foundation for Adults.The GFR will not calculate if the sex is unknown or if thepatient's age is <18 years. CREATININE (test code = CREAT) 0.90 mg/dL 0.7-1.3 N BUN/CREATININE RATIO (test code = BUN/CREA) 11.6 10-20 N CALCIUM (test code = CA) 9.0 mg/dL 8.5-10.1 N [id number] 20:30:00* Test Item Value Reference Range Interpretation Comme nts TROPONIN-HS (test code = TROPI) <4.0 pg/mL 0-54 N 99th Percentile Upper Reference Limit (URL):Females: 34 pg/mLMales: 54 pg/mL In order to distinguish acute elevations of high sensitivitytroponin from other clinical conditions, the FourthUniversal Definition of Myocardial Infarction stressesclinical assessment and the demonstration of a rise and/orfall in serial troponin results above the URL. These results were obtained using Siemens AtellAskNshare IM TnIHreagent. Results from different methodologies should not becompared to one another as quantitative results and URLs mayvary by method. NOTE: A Positive Bias may occur for patients taking Biotin Supplements.NOTE: Current test methodology (pg/mL) units differ from prior test methodology (ng/mL) by a factor of 1000. HEPATIC FUNCTION [id number] 20:30:00* Test Item Value Reference Range Interpretation Comme nts TOTAL PROTEIN (test code = PROT) 6.6 gram/dL 6.4-8.2 N ALBUMIN (test code = ALB) 3.4 g/dL 3.4-5.0 N GLOBULIN (test code = GLOB) 3.2 gram/dL 2.7-4.2 N ALBUMIN/GLOBULIN RATIO (test code = A/G) 1.1 0.75-1.50 N BILIRUBIN TOTAL (test code = BILT) 0.50 mg/dL 0.0-1.0 N BILIRUBIN DIRECT (test code = BILD) 0.20 mg/dL 0.0-0.20 N SGOT/AST (test code = AST) 18 IUnit/L 15-37 N SGPT/ALT (test code = ALT) 15 IUnit/L 12-78 N ALKALINE PHOSPHATASE TOTAL (test code = ALKP) 58 IUnit/L 45-117 N Note change in reference range due to change in reagent. [id number] 20:30:00* Test Item Value Reference Range Interpretation Comme nts LIPASE (test code = LIP) 40 U/L 12-57 N CBC W/O [id number] 20:16:00* Test Item Value Reference Range Interpretation Comme nts WHITE BLOOD CELL (test code = WBC) 7.9 K/mm3 4.5-12.5 N RED BLOOD CELL (test code = RBC) 3.87 mill/mm3 4.0-5.8 L HEMOGLOBIN (test code = HGB) 11.9 gram/dL 13.0-17.5 L HEMATOCRIT (test code = HCT) 35.7 % 42.0-52.0 L MEAN CELL VOLUME (test code = MCV) 92.2 fL 80-98 N MEAN CELL HGB (test code = MCH) 30.7 picogram 27.0-33.0 N MEAN CELL HGB CONCETRATION (test code = MCHC) 33.3 gram/dL 33.0-36.0 N RED CELL DISTRIBUTION WIDTH (test code = RDW) 13.2 % 11.6-16.2 N PLATELET COUNT (test code = PLT) 302 K/mm3 150-450 N MEAN PLATELET VOLUME (test c ode = MPV) 10.4 fL 6.7-11.0 N - XR CHEST 1 [id number] 19:52:00 [facility] 1985 Sex: M FAX: Robin Rueda MD [phone] [place]: B St: REG FAX: Iggy Copeland MD [phone] - Name: TANNER BENDER [facility] : 1985 Age/S: 37/M [address] [facility] Unit #: [id number] Loc: [place] [address] Phys: Iggy Copeland MD Acct: [id number] Dis Date: Status: REG ER PHONE #: [phone] Exam Date: 06/26/2023 1910 FAX #: [phone] Reason: CHEST PAIN EXAMS: CPT CODE: [id number] XR CHEST 1 V [id number] EXAM: - XR CHEST 1 V DATE: 06/26/2023 6:53 PM. INDICATION: CHEST PAIN . COMPARISON: None available. TECHNIQUE: Frontal chest. FINDINGS: Lines, Tubes and Hardware: None. Lungs and Pleura: No focal consolidation, pleural effusion, or pneumothorax is identified. Heart and Mediastinum: The heart size is normal. The mediastinal contours are unremarkable. Pulmonary vascularity is unremarkable. Bones: No acute skeletal abnormality is identified. Upper abdomen: Within normal limits IMPRESSION: No acute abnormality. at 1952 Reported and signed by: Donovan Graham M.D. CC: Robin Fernandez MD; Iggy Copeland MD Technologist: Bren Sotelo RT(R) Trnscrd Date/Time/By: 06/26/2023 (1952) : By: [email or web address] Orig Print D/T: S: 06/26/2023 (1955) PAGE 1 Signed ReportB-TYPE NATRIURETIC [id number] 21:41:00* Test Item Value Reference Range Interpretation Comme nts B-TYPE NATRIURETIC PEPTIDE (test code = BNP) 15.2 pgram/mL 0-100 N BASIC METABOLIC [id number] 21:36:00* Test Item Value Reference Range Interpretation Comme nts SODIUM (test code = NA) 138 mmol/L 136-145 N POTASSIUM (test code = K) 4.0 mmol/L 3.5-5.1 N CHLORIDE (test code = CL) 107.0 mmol/L 98-107 N CARBON DIOXIDE (test code = CO2) 26.0 mmol/L 21-32 N ANION GAP (test code = GAP) 9.0 10-20 L GLUCOSE (test code = GLU) 78 mg/dL 74-106 N BLOOD UREA NITROGEN (test code = BUN) 8 mg/dL 7-18 N GLOMERULAR FILTRATION RATE (test code = GFR) > 60 mL/min >=60 The Glomerular Filtration Rate is a calculated parameterbased on serum Creatinine, patient age and sex. GFR valuesless than 60 mL/min/1.73 square meters are indicative ofChronic Kidney Disease. Values less than 15 mL/min/1.73square meters indicate Kidney failure. The calculation forGFR is based on the CKD-EPI (2020) calculation. This formulais race indifferent and is the recommended formula for GFRby the National Kidney Foundation for Adults.The GFR will not calculate if the sex is unknown or if thepatient's age is <18 years. CREATININE (test code = CREAT) 1.00 mg/dL 0.7-1.3 N BUN/CREATININE RATIO (test code = BUN/CREA) 8.2 10-20 L CALCIUM (test code = CA) 8.9 mg/dL 8.5-10.1 N [id number] 21:36:00* Test Item Value Reference Range Interpretation Comme nts TROPONIN-HS (test code = TROPI) <4.0 pg/mL 0-54 N 99th Percentile Upper Reference Limit (URL):Females: 34 pg/mLMales: 54 pg/mL In order to distinguish acute elevations of high sensitivitytroponin from other clinical conditions, the FourthUniversal Definition of Myocardial Infarction stressesclinical assessment and the demonstration of a rise and/orfall in serial troponin results above the URL. These results were obtained using Siemens Enforta IM TnIHreagent. Results from different methodologies should not becompared to one another as quantitative results and URLs mayvary by method. NOTE: A Positive Bias may occur for patients taking Biotin Supplements.NOTE: Current test methodology (pg/mL) units differ from prior test methodology (ng/mL) by a factor of 1000. CBC W/O [id number] 21:10:00* Test Item Value Reference Range Interpretation Comme nts WHITE BLOOD CELL (test code = WBC) 9.4 K/mm3 4.5-12.5 N RED BLOOD CELL (test code = RBC) 4.18 mill/mm3 4.0-5.8 N HEMOGLOBIN (test code = HGB) 12.8 gram/dL 13.0-17.5 L HEMATOCRIT (test code = HCT) 39.3 % 42.0-52.0 L MEAN CELL VOLUME (test code = MCV) 94.0 fL 80-98 N MEAN CELL HGB (test code = MCH) 30.6 picogram 27.0-33.0 N MEAN CELL HGB CONCETRATION (test code = MCHC) 32.6 gram/dL 33.0-36.0 L RED CELL DISTRIBUTION WIDTH (test code = RDW) 13.2 % 11.6-16.2 N PLATELET COUNT (test code = PLT) 302 K/mm3 150-450 N MEAN PLATELET VOLUME (test c ode = MPV) 10.1 fL 6.7-11.0 N - XR CHEST 1 [id number] 21:08:00 [facility] : 1985 Sex: M FAX: Michele Rowe MD [phone] [place]: [address] St: REG FAX: Robin Rueda MD [phone] Name: SUNNY BENDER [facility] : 1985 Age/S: 37/M Samaria Giang Unit #: [id number] Loc: [place] [address] Phys: Michele Rowe MD Acct: [id number] Dis Date: Status: REG ER PHONE #: [phone] Exam Date: 06/23/20232058 FAX #: [phone] Reason: CHEST PAIN EXAMS: CPT CODE: [id number] XR CHEST 1 V 50731 EXAM: - XR CHEST 1 V DATE: 06/23/2023 8:39 PM. INDICATION: CHEST PAIN . COMPARISON: None available. TECHNIQUE: Frontal chest. FINDINGS: Lines, Tubes and Hardware: None. Lungs andPleura: No focal consolidation, pleural effusion, or pneumothorax is identified. Heart and Mediastinum: The heart size is normal. The mediastinal contours are unremarkable. Pulmonary vascularity is unremarkable. Bones: No acute skeletal abnormality is identified. Upper abdomen: Within normal limitsIMPRESSION: No acute abnormality. at 2107 Reported and signed by: Donovan Graham M.D. CC: Michele Rowe MD; Robin Fernandez MDTechnologist: Ashley MCDOWELL(R) Trnscrd Date/Time/By: 06/23/2023 (2107) : By: [email or web address] Orig Print D/T: S: 06/23/2023 (2110) PAGE 1 Signed Report- CT ANGIO ABD PEL W [id number] 16:23:00[facility] : 1985 Sex: M Name: TANNER BENDER [facility] : 1985 Age/S: 37 / M [address] [facility] [id number] Loc: [place] [address] Phys: Tha Grant DO Acct: [id number] Dis Date: Status: DEP ER PHONE #: [phone] Exam Date: 06/17/2023 1310 FAX #: [phone] Reason: AORTA DISCETION Report Has Been Amended EXAMS: CPT CODE: [id number] CT ANGIO ABD PEL W CONT 90910 Addendum -06/17/2023 SIGNED 06/17/2023 ADDENDUM: [id number] CT/CTAAPWCONT Maximal intensity projection images and three-dimensional volume rendered images and curved planar reformatted images were obtained. Thoracic aorta diameter measures as follows: Sinuses of Valsalva: 3.6 x 4.0 x 3.9 cm Sinotubular junction: 2.9 x 2.9 cm Ascending aorta at the level of the pulmonary trunk: 3.1 x 3.1 cm Mid aortic arch: 2.3 x 2.7 cm Descending aorta at the level of the pulmonary trunk: 2.4 x 2.6 cm Descending aorta at the level of the left atrium: 2.1 x 2.1 cm at 1623 Reported and signed by: Jackson Perez MD Transcribed: 06/17/2023 (2144) [email or web address].RR31 Report REASON FOR EXAM: AORTA DISCETION EXAM ORDER DATE: 06/17/2023 12:30 PM Ordering MJudy: Tha Grant DO PROCEDURE: - CTA CHEST , - CT ANGIO ABD PEL W CONT axial CT images were acquired through the chest/abdomen/pelvis. Sagittal and coronal reformatted images were generated. CT dose reduction protocol: Automated exposure control adjustment of mA and/or kV according to patient size or iterative reconstruction dose optimization techniques were used. Phases of contrast: Arterial and delayed COMPARISON: Chest x-ray May 23, 2023. CT of the chest January 2023. CT of the abdomen and pelvis July 2022. FINDINGS: Visualized neck: Grossly normal. PAGE 1 Signed Report (CONTINUED) Name: TANNER BENDER [facility] : 1985 Age/S: 37 / M [address] [facility] Unit #: [id number] Loc: [place] [address] Phys: Tha Grant DO Acct: [id number] Dis Date: Status: [facility] ER PHONE #: [phone] Exam Date: 06/17/2023 1310 FAX #: [phone] Reason: AORTA DISCETION Report Has Been Amended EXAMS: CPT CODE: [id number] CT ANGIO ABD PEL W CONT 38698 (Continued) Airways, Lungs and Pleura:Grossly normal. Heart, great vessels, pulmonary vessels, mediastinum: Grossly normal. Thoracic Lymph nodes: Grossly normal. Hepatobiliary system: Cholecystectomy. Pancreas: Grossly normal. Spleen: Grossly normal. Adrenal glands: Grossly normal. Genitourinary system: Grossly normal. Gastrointestinal tract and appendix: There appears to been prior appendectomy. Otherwise grossly normal Abdominal vascular structures: Grossly normal. Other: No free fluid or free air. No abnormal lymph nodes. Musculoskeletal structures, chest wall, and abdominal wall: There is levocurvature in the lumbar spine which does not meet threshold for scoliosis. IMPRESSION: Grossly normal CT scan of the chest, abdomen, and pelvis. Specifically the aorta is within normal limits with no dissection or aneurysm. Location: [facility] at 1327 Reported and signed by:Jackson Perez MD PAGE 2 Signed Report (CONTINUED) Name: TANNER BENDER [facility] : 1985 Age/S: 37 / M [address] [facility] Unit #: [id number] Loc: [place] [address] Phys: Tha Grant DDNitza Acct: [id number] Dis Date: Status: [facility] ER PHONE #: [phone] Exam Date: 06/17/2023 1310 FAX #: [phone] Reason: AORTA DISCETION Report Has Been Amended EXAMS: CPT CODE: [id number] ANGIO ABD PEL W CONT 85435 (Continued) CC: Tha Grant DO; Robin Fernandez MD Technologist:Andi Edge RT(R),(MR),(CT) CTDI: DLP: Trnscb Date/Time: 06/17/2023 (1327) [email or web address] Orig Print D/T: S: 06/17/2023 (1330) PAGE 3 Signed Report- CTA [id number] 16:23:00[facility]Name: TANNER BENDER : 1985 Sex: M Name: TANNER BENDER [facility] : 1985 Age/S: 37 / M [address] [facility] Unit #: [id number] Loc: [place] [address] Phys: Tha Grant DO Acct: [id number] Dis Date: Status: DEP ER PHONE #: [phone] Exam Date: 06/17/2023 1310 FAX #: [phone] Reason: AORTA DISCETION Report Has Been Amended EXAMS: CPT CODE: [id number] CTA CHEST 62036 Addendum - 06/17/2023 SIGNED 06/17/2023 ADDENDUM: [id number] CT/CTACHWWO Maximal intensity projection images and three-dimensional volume rendered images and curved planar reformatted images were obtained. Thoracic aorta diameter measures as follows: Sinuses of Valsalva: 3.6 x 4.0 x 3.9 cm Sinotubular junction: 2.9 x 2.9cm Ascending aorta at the level of the pulmonary trunk: 3.1 x 3.1 cm Mid aortic arch: 2.3 x 2.7 cm Descending aorta at the level of the pulmonary trunk: 2.4 x 2.6 cm Descending aorta at the level of the left atrium: 2.1 x 2.1 cm at 1623 Reported and signed by: Jackson Perez MD Transcribed: 06/17/2023 (7023) [email or web address] Report REASON FOR EXAM: AORTA DISCETION EXAM ORDER DATE: 06/17/2023 12:30 PM Ordering Cash: Tha Grant DO PROCEDURE: - CTA CHEST , - CT ANGIO ABD PEL W CONT axial CT images were acquired through the chest/abdomen/pelvis. Sagittal and coronal reformatted images were generated. CT dose reduction protocol: Automated exposure control adjustment of mA and/or kV according to patient size or iterative reconstruction dose optimization techniques were used. Phases of contrast: Arterial and delayed COMPARISON: Chest x-ray May 23, 2023. CT of the chest January 2023. CT of the abdomen and pelvis July 2022. FINDINGS: Visualized neck: Grossly normal. PAGE 1 Signed Report (CONTINUED) Name: TANNER BENDER [facility] : 1985 Age/S: 37 / M [address] [facility] Unit #: [id number] Loc: [place] [address] Phys: Tha Grant DO Acct: [id number] Dis Date: Status: DEP ER PHONE #: [phone] Exam Date: 06/17/2023 1310 FAX #: [phone] Reason: AORTA DISCETION Report Has Been Amended EXAMS: CPT CODE: [id number] CTA CHEST 86325 (Continued) Airways, Lungs and Pleura: Grossly normal. Heart, great vessels, pulmonary vessels, mediastinum: Grossly normal. Thoracic Lymph nodes: Grossly normal. Hepatobiliary system: Cholecystectomy. Pancreas: Grossly normal. Spleen: Grossly normal. Adrenal glands: Grossly normal. Genitourinary system: Grossly normal. Gastrointestinal tract and appendix: There appears to been prior appendectomy. Otherwise grossly normal Abdominal vascular structures: Grossly normal. Other: No free fluid or free air. No abnormal lymph nodes. Musculoskeletal structures, chest wall, and abdominal wall: There is levocurvature in the lumbar spine which does not meet threshold forscoliosis. IMPRESSION: Grossly normal CT scan of the chest, abdomen, and pelvis. Specifically the aorta is within normal limits with no dissection or aneurysm. Location: [facility] at 1327 Reported and signed by: Jackson Perez MD PAGE 2 Signed Report (CONTINUED) Name: TANNER BENDER [facility] : 1985 Age/S: 37 / M [address] nit #: [id number] Loc: [place] [address] Phys: Tha Grant DO Acct: [id number] Dis Date: Status: DEP ER PHONE #: [phone] Exam Date: 06/17/2023 1310 FAX #: [phone] Reason: AORTA DISCETION Report Has Been Amended EXAMS: CPT CODE: [id number] CTA CHEST 15683 (Continued) CC: Tha Betancourt DO; Robin Fernandez MD Technologist:Andi Edge RT(R),(MR),(CT) CTDI: DLP: Trnscb Date/Time: 06/17/2023 (1327) [email or web address] Orig Print D/T: S: 06/17/2023 (4810) PAGE 3 Signed ReportURINALYSIS [id number] 14:00:00* Test Item Value Reference Range Interpretation Comme nts UA COLOR (test code = COLU) Light-Yellow YELLOW UA APPEARANCE (test code = APPU) CLEAR CLEAR IS THE SAMPLE FROM ER OR L&D?Y IF THE ANSWER IS NO,PLEASE DOCUMENT TWO RN SIGNATURES HERE- by [id number] 06/17/23 1343 UA GLUCOSE DIPSTICK (test code = DGLUU) NEGATIVE mg/dL NEGATIVE UA BILIRUBIN DIPSTICK (test code = BILU) NEGATIVE mg/dL NEGATIVE UA KETONE DIPSTICK (test code = KETU) NEGATIVE mg/dL NEGATIVE UA SPECIFIC GRAVITY (test code = SGU) 1.027 1.001-1.035 UA BLOOD DIPSTICK (test code = JACOB) Negative mg/dL NEGATIVE UA PH DIPSTICK (test code = CANDI) 5.5 5.0-8.0 UA PROTEIN DIPSTICK (test code = PROU) NEGATIVE mg/dL NEGATIVE UA UROBILINIOGEN DIPSTICK (test code = URO) Normal mg/dL NEGATIVE UA NITRITE DIPSTICK (test code = LINDA) NEGATIVE NEGATIVE UA LEUKOCYTE ESTERASE W REFLEX (test code = LEUUR) NEGATIVE Sachin/uL NEGATIVE UA WBC (test code = WBCU) 0-5 per HPF 0-5 UA RBC (test code = RBCU) NONE SEEN #/HPF 0-5 UA EPITHELIAL CELLS (test code = EPIU) None seen per HPF FEW UA BACTERIA (test code = BACU) NONE SEEN #/HPF NONE UA MUCUS (test code = MUCU) FEW #/LPF FEW Urine Source? Clean CatchDRUGS OF ABUSE SCREEN [id number] 14:00:00* Test Item Value Reference Range Interpretation Comme nts URN COCAINE (test code = COCAURN) NEGATIVE See_Comment [Automated messa ge] The system which generated this result transmitted reference range: <300 ng/mL. The reference range was not used to interpret this result as normal/abnormal. URN CANNABINOIDS (test code = CANNABURN) POSITIVE See_Comment [Automated mes julio] The system which generated this result transmitted reference range: <50 ng/mL. The reference range was not used to interpret this result as normal/abnormal. URN AMPHETAMINE (test code = AMPHETURN) NEGATIVE See_Comment [Automated mes julio] The system which generated this result transmitted reference range: <1000 ng/mL. The reference range was not used to interpret this result as normal/abnormal. URN BARBITURATE (test code = BARBITURN) NEGATIVE See_Comment [Automated mes julio] The system which generated this result transmitted reference range: <200 ng/mL. The reference range was not used to interpret this result as normal/abnormal. URN BENZODIAZEPINE (test code = BENZOURN) POSITIVE See_Comment [Automated mess age] The system which generated this result transmitted reference range: <200 ng/mL. The reference range was not used to interpret this result as normal/abnormal. URN OPIATES (test code = OPIATURN) POSITIVE See_Comment [Automated messa ge] The system which generated this result transmitted reference range: <300 ng/mL. The reference range was not used to interpret this result as normal/abnormal. URN PHENCYCLIDINE (PCP) (test code = PHENCURN) NEGATIVE See_Comment [Automate d message] The system which generated this result transmitted reference range: <25 ng/mL. The reference range was not used to interpret this result as normal/abnormal. URN METHADONE (test code = METHAURN) NEGATIVE See_Comment [Automated messa ge] The system which generated this result transmitted reference range: <300 ng/mL. The reference range was not used to interpret this result as normal/abnormal. Urine Source? Clean Catch- CT HEAD/BRAIN W/O [id number] 13:19:[address] [facility]Name: TANNER BENDER : 1985 Sex: M Name: TANNER BENDER [facility] : 1985 Age/S: 37 / M [address] [facility] Unit #: [id number] Loc: [place] [address] Phys: Tha Grant DO Acct: [id number] Dis Date: Status: REG ER PHONE #: [phone] Exam Date: 06/17/2023 1310 FAX #: [phone] Reason: AORTA DISCETIONRT LEG AND ARM NUMB' EXAMS: CPT CODE: [id number] CT HEAD/BRAIN W/O CONT 72590 HISTORY: AORTA DISCETIONRT LEG AND ARM NUMB' TECHNIQUE: Noncontrast 2.[address] of the head. Examination acquired within [address] dose reduction protocol: Automated exposure control adjustment of mA and/or kV according to patient size or iterative reconstruction dose optimization techniques were used. COMPARISON: CT scan of the brain February 02, 2023 FINDINGS: No lacerations or contusions of the scalp or facial soft tissues. Calvarium and skull base are intact. No acute hemorrhage. No intracranial mass, mass effect, or midline shift. No effacement of the sulci or rodriguez-white matter interface. No cortical atrophy. No signs of white matter small-vessel disease. No hydrocephalus.. No extra-axialfluid collection. Visualized paranasal sinuses are clear. Mastoid air cells and middle ear cavitiesare clear. Copious amount of cerumen is present in the bilateral external auditory canals. Orbital contents are unremarkable. IMPRESSION: No acute intracranial process. Location: [facility] at 1319 Reported and signed by: Jackson Perez MD CC: Tha Grant DO; Robin Fernandez MD Technologist:Andi Edge RT(R),(MR),(CT) CTDI: DLP: Trnscb Date/Time: 06/17/2023 (1319) [email or web address] Orig Print D/T: S: 06/17/2023 (7594) PAGE 1 Signed ReportBASIC METABOLIC PANEL 2023-06-17 13:12:00* Test Item Value Reference Range Interpretation Comme nts SODIUM (test code = NA) 138 mmol/L 136-145 N POTASSIUM (test code = K) 4.1 mmol/L 3.5-5.1 N CHLORIDE (test code = CL) 106.0 mmol/L 98-107 N CARBON DIOXIDE (test code = CO2) 27.0 mmol/L 21-32 N ANION GAP (test code = GAP) 9.1 10-20 L GLUCOSE (test code = GLU) 113 mg/dL 74-106 H BLOOD UREA NITROGEN (test code = BUN) 8 mg/dL 7-18 N GLOMERULAR FILTRATION RATE (test code = GFR) > 60 mL/min >=60 The Glomerular Filtration Rate is a calculated parameterbased on serum Creatinine, patient age and sex. GFR valuesless than 60 mL/min/1.73 square meters are indicative ofChronic Kidney Disease. Values less than 15 mL/min/1.73square meters indicate Kidney failure. The calculation forGFR is based on the CKD-EPI (202) calculation. This formulais race indifferent and is the recommended formula for GFRby the National Kidney Foundation for Adults.The GFR will not calculate if the sex is unknown or if thepatient's age is <18 years. CREATININE (test code = CREAT) 1.00 mg/dL 0.7-1.3 N BUN/CREATININE RATIO (test code = BUN/CREA) 8.2 10-20 L CALCIUM (test code = CA) 8.9 mg/dL 8.5-10.1 N HEPATIC FUNCTION [id number] 13:12:00* Test Item Value Reference Range Interpretation Comme [facility] TOTAL PROTEIN (test code = PROT) 7.4 gram/dL 6.4-8.2 N ALBUMIN (test code = ALB) 4.1 g/dL 3.4-5.0 N GLOBULIN (test code = GLOB) 3.3 gram/dL 2.7-4.2 N ALBUMIN/GLOBULIN RATIO (test code = A/G) 1.2 0.75-1.50 N BILIRUBIN TOTAL (test code = BILT) 0.50 mg/dL 0.0-1.0 N BILIRUBIN DIRECT (test code = BILD) 0.20 mg/dL 0.0-0.20 N SGOT/AST (test code = AST) 18 IUnit/L 15-37 N SGPT/ALT (test code = ALT) 15 IUnit/L 12-78 N ALKALINE PHOSPHATASE TOTAL (test code = ALKP) 61 IUnit/L 45-117 N Note change in reference range due to change in reagent. [id number] 13:12:00* Test Item Value Reference Range Interpretation Comme [facility] LIPASE (test code = LIP) 125 U/L 12-57 H [id number] 13:12:00* Test Item Value Reference Range Interpretation Comme [facility] MAGNESIUM (test code = MAG) 1.9 mg/dL 1.8-2.4 N CPK-MB [id number] 13:12:00* Test Item Value Reference Range Interpretation Comme [facility] CREATINE KINASE (CK) (test code = CK) 132 IUnit/L 26-208 N CKMB (test code = CKMBT) 1.1 ng/mL 0-6.0 N RELATIVE % INDEX (test code = REL%) 0.83 % 0.00-2.50 N "If the total CK is elevated, the CKMB Fraction must beinterpreted as a Relative % Index, Normal is less than 2.5%"NOTE: Relative % Index is not valid with a normal total CK. [id number] 13:12:00* Test Item Value Reference Range Interpretation Comme [facility] TROPONIN-HS (test code = TROPI) <4.0 pg/mL 0-54 N 99th Percentile Upper Reference Limit (URL):Females: 34 pg/mLMales: 54 pg/mL In order to distinguish acute elevations of high sensitivitytroponin from other clinical conditions, the FourthUniversal Definition of Myocardial Infarction stressesclinical assessment and the demonstration of a rise and/orfall in serial troponin results above the URL. These results were obtained using Siemens AtellAskNshare IM TnIHreagent. Results from different methodologies should not becompared to one another as quantitative results and URLs mayvary by method. NOTE: A Positive Bias may occur for patients taking Biotin Supplements.NOTE: Current test methodology (pg/mL) units differ from prior test methodology (ng/mL) by a factor of 1000. B-TYPE NATRIURETIC [id number] 13:11:00* Test Item Value Reference Range Interpretation Comme nts B-TYPE NATRIURETIC PEPTIDE (test code = BNP) 38.2 pgram/mL 0-100 N PROTHROMBIN [id number] 12:56:00* Test Item Value Reference Range Interpretation Comme nts PROTHROMBIN TIME PATIENT (test code = PTP) 11.3 seconds 10.0-14.0 N INTERNATIONAL NORMAL RATIO (test code = INR) 1.0 0.8-1.2 N The therapeutic range for oral anticoagulant therapy formost indications is an international normalized ratio (INR)of between 2.0 and 3.0. The recommended therapeutic INRrange for various clinical situations is listed below: Clinical Situation INR range Pulmonary embolism treatment (2.0-3.0)Venous thrombosis treatmentVenous thrombosis prophylaxis (high risk surgery)Prevention of systemic embolism from: Acute myocardial infarction Valvular heart disease Atrial fibrillation Mechanical prosthetic heart valves (2.5-3.5) IS PATIENT ON ANTICOAGULANTS? NTHROMBOPLASTIN TIME [id number] 12:56:00* Test Item Value Reference Range Interpretation Comme nts THROMBOPLASTIN TIME PARTIAL (test code = PTT) 33.4 seconds 26.6-37.3 N IS PATIENT ON ANTICOAGULANTS? [id number] 12:56:00* Test Item Value Reference Range Interpretation Comme nts D-DIMER (test code = DDIMER) 820 ng/mLFEU 0-500 HH Results called t o [id number] by [id number] 06/17/23 1256Critical results verified and read back by Nurse? YClinical Cut-off value for D-Dimer is 500 ng/mL FEU. Comment: The [employer] D-Dimer assay is intended for use asan aid in the diagnosis of venous thromboembolism (VTE)[deep vein thrombosis (DVT) or pulmonary embolism (PE)].The measurement of D-Dimer should not be used as an aid inthe diagnosis of VTE, in patient with: -Therapeutic dose anticoagulant therapy for >24 hours -Fibrinolytic therapy within previous 7 days -Trauma or surgery within previous 4 weeks -Disseminated malignancies -Aortic aneurysm -Sepsis, severe infections, pneumonia, severe skin infections -Liver cirrhosis - IS PATIENT ON ANTICOAGULANTS? NCBC W/O [id number] 12:43:00* Test Item Value Reference Range Interpretation Comme nts WHITE BLOOD CELL (test code = WBC) 8.3 K/mm3 4.5-12.5 N RED BLOOD CELL (test code = RBC) 4.37 mill/mm3 4.0-5.8 N HEMOGLOBIN (test code = HGB) 13.6 gram/dL 13.0-17.5 N HEMATOCRIT (test code = HCT) 41.3 % 42.0-52.0 L MEAN CELL VOLUME (test code = MCV) 94.5 fL 80-98 N MEAN CELL HGB (test code = MCH) 31.1 picogram 27.0-33.0 N MEAN CELL HGB CONCETRATION (test code = MCHC) 32.9 gram/dL 33.0-36.0 L RED CELL DISTRIBUTION WIDTH (test code = RDW) 13.0 % 11.6-16.2 N PLATELET COUNT (test code = PLT) 271 K/mm3 150-450 N MEAN PLATELET VOLUME (test c ode = MPV) 10.1 fL 6.7-11.0 N - XR CHEST 1 [id number] 23:08:00 [facility] 1985 Sex: M FAX: Madi Damon [phone] [place]: St: [facility] FAX: Fani Escobar MD [phone] Name: TANNER BENDER [facility] : 1985 Age/S: 37/M [facility]: [id number] Loc: [place] [address] Phys: Madi Clark MD Acct: [id number] Dis Date: Status: REG ER PHONE #: [phone] Exam Date: 05/13/2023 225 FAX #: [phone] Reason: CHEST PAIN EXAMS: CPT CODE: [id number] XR CHEST 1 V 25676 REASON FOR EXAM: CHEST PAIN Exam Order Date: 05/13/2023 10:07 PM Ordering Cash: Madi Clark MD PROCEDURE: - XR CHEST 1 V COMPARISON: 03/12/2023 FINDINGS: Lines/Tubes: None The lungs are clear. There is no pleural effusion or pneumothorax. Pulmonary vascularity is within normal limits. Cardiomediastinal silhouette and mediastinal contours are unchanged when accounting for differences in technique. Musculoskeletal structures and visualized portions of the upper abdomen are also unchanged. IMPRESSION: No acute cardiopulmonary process. Location: at 2308 Reported and signed by: Edu Witt M.D. CC: Madi Clark MD; Fani Gibson MD Technologist: GIOVANNI VARELA JR RT(R) Trnscrd Date/Time/By: 05/13/2023 (2307) : By: [email or web address] Orig Print D/T: S: 05/13/2023 (2363) PAGE 1 Signed ReportBASIC METABOLIC PANEL 2023-05-13 22:52:00* Test Item Value Reference Range Interpretation Comme nts SODIUM (test code = NA) 139 mmol/L 136-145 N POTASSIUM (test code = K) 4.0 mmol/L 3.5-5.1 N CHLORIDE (test code = CL) 104.0 mmol/L 98-107 N CARBON DIOXIDE (test code = CO2) 32.0 mmol/L 21-32 N ANION GAP (test code = GAP) 7.0 10-20 L GLUCOSE (test code = GLU) 106 mg/dL 74-106 N BLOOD UREA NITROGEN (test code = BUN) 12 mg/dL 7-18 N GLOMERULAR FILTRATION RATE (test code = GFR) > 60 mL/min >=60 The Glomerular Filtration Rate is a calculated parameterbased on serum Creatinine, patient age and sex. GFR valuesless than 60 mL/min/1.73 square meters are indicative ofChronic Kidney Disease. Values less than 15 mL/min/1.73square meters indicate Kidney failure. The calculation forGFR is based on the CKD-EPI (2020) calculation. This formulais race indifferent and is the recommended formula for GFRby the National Kidney Foundation for Adults.The GFR will not calculate if the sex is unknown or if thepatient's age is <18 years. CREATININE (test code = CREAT) 1.10 mg/dL 0.7-1.3 N BUN/CREATININE RATIO (test code = BUN/CREA) 10.7 10-20 N CALCIUM (test code = CA) 9.1 mg/dL 8.5-10.1 N [id number] 22:52:00* Test Item Value Reference Range Interpretation Comme [facility] TROPONIN-HS (test code = TROPI) <4.0 pg/mL 0-54 N 99th Percentile Upper Reference Limit (URL):Females: 34 pg/mLMales: 54 pg/mL In order to distinguish acute elevations of high sensitivitytroponin from other clinical conditions, the FourthUniversal Definition of Myocardial Infarction stressesclinical assessment and the demonstration of a rise and/orfall in serial troponin results above the URL. These results were obtained using damntheradio IM TnIHreagent. Results from different methodologies should not becompared to one another as quantitative results and URLs mayvary by method. NOTE: A Positive Bias may occur for patients taking Biotin Supplements.NOTE: Current test methodology (pg/mL) units differ from prior test methodology (ng/mL) by a factor of 1000. CBC W/O [id number] 22:36:00* Test Item Value Reference Range Interpretation Comme nts WHITE BLOOD CELL (test code = WBC) 8.7 K/mm3 4.5-12.5 N RED BLOOD CELL (test code = RBC) 4.12 mill/mm3 4.0-5.8 N HEMOGLOBIN (test code = HGB) 13.0 gram/dL 13.0-17.5 N HEMATOCRIT (test code = HCT) 39.4 % 42.0-52.0 L MEAN CELL VOLUME (test code = MCV) 95.6 fL 80-98 N MEAN CELL HGB (test code = MCH) 31.6 picogram 27.0-33.0 N MEAN CELL HGB CONCETRATION (test code = MCHC) 33.0 gram/dL 33.0-36.0 N RED CELL DISTRIBUTION WIDTH (test code = RDW) 13.0 % 11.6-16.2 N PLATELET COUNT (test code = PLT) 313 K/mm3 150-450 N MEAN PLATELET VOLUME (test c ode = MPV) 10.0 fL 6.7-11.0 N TROP-I HIGH [id number] 23:06:00* Test Item Value Reference Range Interpretation Comme nts TROP-I HIGH SENSITIVITY (test code = TROPIHS) 5 ng/L 0-54 N CAUTION: Units o f the current test methodology (ng/L) differfrom the prior test methodology (ng/mL) by a factor of 1000. 99th Percentile Upper Reference Limit (URL): Females: 34 ng/LMales: 54 ng/L In order to distinguish acute elevations of high sensitivitytroponin from other clinical conditions, the Universal Definition of Myocardial Infarction stressesclinical assessment and the demonstration of a rise and/orfall in serial troponin results above the URL. These results were obtained using oDesk TnIHreagent. Results from different methodologies should not becompared to one another as quantitative results and URLs mayvary by method. B-TYPE NATRIURETIC [id number] 21:44:00* Test Item Value Reference Range Interpretation Comme nts B-TYPE NATRIURETIC PEPTIDE ( test code = BNP) 31.0 PG/ML 0-100 N COMPREHENSIVE METABOLIC [id number] 21:28:00* Test Item Value Reference Range Interpretation Comme nts SODIUM (test code = NA) 140 mEq/L 134-147 N POTASSIUM (test code = K) 4.6 mEq/L 3.4-5.0 N CHLORIDE (test code = CL) 106 mEq/L 100-108 N CARBON DIOXIDE (test code = CO2) 27 mEq/l 21-33 N ANION GAP (test code = GAP) 11 0-20 N GLUCOSE (test code = GLU) 81 mg/dL 77-141 N NOTE: NEW NORMAL RANGE BLOOD UREA NITROGEN (test code = BUN) 12 mg/dL 7-25 N NOTE: NEW NORM AL RANGE GLOMERULAR FILTRATION RATE (test code = GFR) 98.8 105-110 L The Glomerular Filtration Rate is a calculated parameterbased on serum Creatinine, patient age and sex. GFR valuesless than 60 mL/min/1.73 square meters are indicative ofChronic Kidney Disease. Values less than 15 mL/min/1.73square meters indicate Kidney failure. The calculation forGFR is based on the CKD-EPI (2020) calculation. This formulais race indifferent and is the recommended formula for GFRby the National Kidney Foundation for Adults.The GFR will not calculate if the sex is unknown or if thepatient's age is <18 years. CREATININE (test code = CREAT) 1.0 mg/dL 0.6-1.3 N TOTAL PROTEIN (test code = PROT) 7.2 g/dL 6.4-8.2 N ALBUMIN (test code = ALB) 4.00 g/dL 3.4-5.0 N CALCIUM (test code = CA) 9.1 mg/dL 8.0-10.5 N BILIRUBIN TOTAL (test code = BILT) 0.40 mg/dL 0.0-1.0 N SGOT/AST (test code = AST) 30 IUnit/L 8-34 N NOTE: NEW NORMAL RANGE SGPT/ALT (test code = ALT) 23 IUnit/L 10-49 N NOTE: NEW NORMAL RANGE ALKALINE PHOSPHATASE TOTAL (test code = ALKP) 53 IUnit/L 20-125 N [id number] 21:28:00* Test Item Value Reference Range Interpretation Comme nts LIPASE (test code = LIP) 67 U/L 13-57 H TROP-I HIGH [id number] 21:28:00* Test Item Value Reference Range Interpretation Comme nts TROP-I HIGH SENSITIVITY (test code = TROPIHS) 5 ng/L 0-54 N CAUTION: Units o f the current test methodology (ng/L) differfrom the prior test methodology (ng/mL) by a factor of 1000. 99th Percentile Upper Reference Limit (URL): Females: 34 ng/LMales: 54 ng/L In order to distinguish acute elevations of high sensitivitytroponin from other clinical conditions, the FourthUniversal Definition of Myocardial Infarction stressesclinical assessment and the demonstration of a rise and/orfall in serial troponin results above the URL. These results were obtained using Siemens AtellAskNshare IM TnIHreagent. Results from different methodologies should not becompared to one another as quantitative results and URLs mayvary by method. - XR CHEST 1 [id number] 21:20:00 [facility] [place] TANNER [place] : 1985 Sex: MFAX: Lelo Brand [place]: St: [facility] FAX: Fani Escobar MD [phone] Name: TANNER BENDER [facility] [place] : 1985 Age/S: 37/M [address] [place] [address] Unit #: [id number] Loc: [place] [address] Phys: Lelo Brand MD Acct: [id number] Dis Date: Status: REG ER PHONE #: [phone] Exam Date: 03/12/20232051 FAX #: [phone] Reason: CHEST PAIN EXAMS: CPT CODE: [id number] XR CHEST 1 V 68731 LOCATION: 3 EXAM: - XR CHEST 1 V HISTORY: CHEST PAIN TECHNIQUE: Frontal view of the chest. COMPARISON: 02/06/2023 FINDINGS: The lungs are adequately inflated and clear. No evidence of pneumothorax or pleural effusion. Normal heart size. Mediastinal contours are within normal limits for age. No acute osseous abnormality. IMPRESSION: No evidence of acute cardiopulmonary disease. at 2120 Reported and signed by: Rosio Arthur M.D. CC: Lelo Brand MD; Fani Gibson MD Technologist: Jaimee Rodney, RT(R); Fausto Chavira RT(R) Trnscrd Date/Time/By: 03/12/2023 (2119) : By: [email or web address] Orig Print D/T: S: 03/12/2023 (2122) PAGE 1 Signed ReportCBC W/AUTO DIFF 2023-03-12 21:11:00* Test Item Value Reference Range Interpretation Comme nts WHITE BLOOD CELL (test code = WBC) 10.7 x10 3/uL 4.5-11.0 RED BLOOD CELL (test code = RBC) 3.95 x10 6/uL 4.00-5.60 L HEMOGLOBIN (test code = HGB) 12.4 g/dL 12.5-16.9 L HEMATOCRIT (test code = HCT) 37.9 % 37.5-50.7 N MEAN CELL VOLUME (test code = MCV) 95.9 fL 81.0-99.0 N MEAN CELL HGB (test code = MCH) 31.4 pg 27.0-33.0 N MEAN CELL HGB CONCETRATION (test code = MCHC) 32.7 g/dL 33.0-37.0 L RED CELL DISTRIBUTION WIDTH CV (test code = RDW) 12.9 % 11.5-14.5 N RED CELL DISTRIBUTION WIDTH SD (test code = RDW-SD) 46.1 fL 37.0-54.0 N PLATELET COUNT (test code = PLT) 387 x10 3/uL 150-400 N MEAN PLATELET VOLUME (test c ode = MPV) 10.5 fL 7.0-9.0 H NEUTROPHIL % (test code = NT%) 51.0 % 56.0-77.0 L IMMATURE GRANULOCYTE % (test code = IG%) 0.3 % 0.0-2.0 N LYMPHOCYTE % (test code = LY%) 36.5 % 14.0-32.0 H MONOCYTE % (test code = MO%) 7.9 % 4.8-9.0 N EOSINOPHIL % (test code = EO%) 3.4 % 0.3-3.7 N BASOPHIL % (test code = BA%) 0.9 % 0.0-2.0 N NUCLEATED RBC % (test code = NRBC%) 0.0 % 0-0 N NEUTROPHIL # (test code = NT#) 5.45 x10 3/uL 2.0-7.6 N IMMATURE GRANULOCYTE # (test code = IG#) 0.03 x10 3/uL 0.00-0.03 N LYMPHOCYTE # (test code = LY#) 3.89 x10 3/uL 1.0-3.8 H MONOCYTE # (test code = MO#) 0.84 x10 3/uL 0.1-0.8 H EOSINOPHIL # (test code = EO#) 0.36 x10 3/uL 0.0-0.2 H BASOPHIL # (test code = BA#) 0.10 x10 3/uL 0.0-0.2 N NUCLEATED RBC # (test code = NRBC#) 0.00 x10 3/uL 0.0-0.1 N HIGH SENSITIVITY CRP [id number] 14:09:00* Test Item Value Reference Range Interpretation Comme nts HIGH SENSITIVITY CRP (test code = CRPHS) 0.54 mg/L 0.00-3.00 Relative Ris k for Future Cardiovascular Event Low <1.00 Average 1.00 - 3.00 High >3.00Performed At: [facility] [address] [id number] Kim MD Ph:[phone] RHEUMATOID FACTOR [id number] 14:09:00* Test Item Value Reference Range Interpretation Comme nts RHEUMATOID FACTOR SCREEN (te st code = RA) < 10.0 IU/mL <14.0 ANTINUCLEAR ANTIBODIES [id number] 14:09:00* Test Item Value Reference Range Interpretation Comme nts NIKI SCREEN (test code = ANASCR) Negative See_Comment Negative <1:80 B orderline 1:80 Positive >1:80ICAP nomenclature: AC-0For more information about Hep-2 cell patterns useANApatterns.org, the official website for theInternational Consensus on Antinuclear Antibody (NIKI)Patterns (ICAP).Performed At: [facility] [address] [id number] Kim MD Ph:[phone] [Automated message] The system which generated this result transmitted reference range: (). The reference range was not used to interpret this result as normal/abnormal. COAGULATION TIME [id number] 07:31:00* Test Item Value Reference Range Interpretation Comme nts COAGULATION TIME ACTIVATED (test code = ACT) 138 SECONDS Performed by certified blow up operator at [facility] DRUGS OF ABUSE SCREEN [id number] 10:30:00* Test Item Value Reference Range Interpretation Comme nts URN COCAINE (test code = COCAURN) NEGATIVE NEGATIVE URN CANNABINOIDS (test code = CANNABURN) POSITIVE NEGATIVE A URN AMPHETAMINE (test code = AMPHETURN) NEGATIVE NEGATIVE URN BARBITURATE (test code = BARBITURN) NEGATIVE NEGATIVE URN BENZODIAZEPINE (test code = BENZOURN) POSITIVE NEGATIVE A Cut-off v alue:200 ng/mL URN OPIATES (test code = OPIATURN) POSITIVE NEGATIVE A Cut-off value:20 00 ng/mL URN PHENCYCLIDINE (PCP) (test code = PHENCURN) NEGATIVE NEGATIVE Cutoffs:B arbiturates 200 ng/mLBenzodiazepines 200 ng/mLTHC Cannabinoids 50 ng/mLOpiates(Morphine) 2000 ng/mLAmphetamine 1000 ng/mLCocaine 300 ng/mLPCP phencyclidine 25 ng/mL Unconfirmed screening results shouldnot be used for non-medical purposes. BASIC METABOLIC [id number] 05:59:00* Test Item Value Reference Range Interpretation Comme nts SODIUM (test code = NA) 140 mEq/L 134-147 N POTASSIUM (test code = K) 3.9 mEq/L 3.4-5.0 N CHLORIDE (test code = CL) 107 mEq/L 100-108 N CARBON DIOXIDE (test code = CO2) 29 mEq/l 21-33 N ANION GAP (test code = GAP) 8 0-20 N GLUCOSE (test code = GLU) 90 mg/dL 77-141 NOTE: NEW NORMAL RANGE BLOOD UREA NITROGEN (test code = BUN) 9 mg/dL 7-25 N NOTE: NEW NORM AL RANGE GLOMERULAR FILTRATION RATE (test code = GFR) 116.2 105-110 H The Glomerular Filtration Rate is a calculated parameterbased on serum Creatinine, patient age and sex. GFR valuesless than 60 mL/min/1.73 square meters are indicative ofChronic Kidney Disease. Values less than 15 mL/min/1.73square meters indicate Kidney failure. The calculation forGFR is based on the CKD-EPI (2020) calculation. This formulais race indifferent and is the recommended formula for GFRby the National Kidney Foundation for Adults.The GFR will not calculate if the sex is unknown or if thepatient's age is <18 years. CREATININE (test code = CREAT) 0.8 mg/dL 0.6-1.3 N CALCIUM (test code = CA) 8.2 mg/dL 8.0-10.5 N [id number] 05:59:00* Test Item Value Reference Range Interpretation Comme nts LIPASE (test code = LIP) 37 U/L 13-57 N [id number] 05:59:00* Test Item Value Reference Range Interpretation Comme nts MAGNESIUM (test code = MAG) 2.36 mg/dL 1.6-2.6 N NOTE: NEW NORMAL RANGE TSH REFLEX TO [id number] 05:59:00* Test Item Value Reference Range Interpretation Comme nts TSH REFLEX TO FT4 (test code = TSHREFLEX) 4.60 IU/mL 0.42-5.47 N TROP-I HIGH [id number] 05:59:00* Test Item Value Reference Range Interpretation Comme nts TROP-I HIGH SENSITIVITY (test code = TROPIHS) 5 ng/L 0-54 N CAUTION: Units o f the current test methodology (ng/L) differfrom the prior test methodology (ng/mL) by a factor of 1000. 99th Percentile Upper Reference Limit (URL): Females: 34 ng/LMales: 54 ng/L In order to distinguish acute elevations of high sensitivitytroponin from other clinical conditions, the FourthUniversal Definition of Myocardial Infarction stressesclinical assessment and the demonstration of a rise and/orfall in serial troponin results above the URL. These results were obtained using damntheradio IM TnIHreagent. Results from different methodologies should not becompared to one another as quantitative results and URLs mayvary by method. [id number] 05:48:00* Test Item Value Reference Range Interpretation Comme nts HGBA1C% (test code = HGBA1C%) 5.3 %A1C 4.8-6.0 N CBC W/AUTO [id number] 05:31:00* Test Item Value Reference Range Interpretation Comme nts WHITE BLOOD CELL (test code = WBC) 7.5 x10 3/uL 4.5-11.0 N RED BLOOD CELL (test code = RBC) 4.27 x10 6/uL 4.00-5.60 N HEMOGLOBIN (test code = HGB) 13.4 g/dL 12.5-16.9 N HEMATOCRIT (test code = HCT) 40.6 % 37.5-50.7 N MEAN CELL VOLUME (test code = MCV) 95.1 fL 81.0-99.0 N MEAN CELL HGB (test code = MCH) 31.4 pg 27.0-33.0 N MEAN CELL HGB CONCETRATION (test code = MCHC) 33.0 g/dL 33.0-37.0 N RED CELL DISTRIBUTION WIDTH CV (test code = RDW) 12.7 % 11.5-14.5 N RED CELL DISTRIBUTION WIDTH SD (test code = RDW-SD) 44.9 fL 37.0-54.0 N PLATELET COUNT (test code = PLT) 303 x10 3/uL 150-400 N MEAN PLATELET VOLUME (test c ode = MPV) 10.0 fL 7.0-9.0 H NEUTROPHIL % (test code = NT%) 47.0 % 56.0-77.0 L IMMATURE GRANULOCYTE % (test code = IG%) 0.3 % 0.0-2.0 N LYMPHOCYTE % (test code = LY%) 39.6 % 14.0-32.0 H MONOCYTE % (test code = MO%) 9.0 % 4.8-9.0 N EOSINOPHIL % (test code = EO%) 2.9 % 0.3-3.7 N BASOPHIL % (test code = BA%) 1.2 % 0.0-2.0 N NUCLEATED RBC % (test code = NRBC%) 0.0 % 0-0 N NEUTROPHIL # (test code = NT#) 3.53 x10 3/uL 2.0-7.6 N IMMATURE GRANULOCYTE # (test code = IG#) 0.02 x10 3/uL 0.00-0.03 N LYMPHOCYTE # (test code = LY#) 2.98 x10 3/uL 1.0-3.8 N MONOCYTE # (test code = MO#) 0.68 x10 3/uL 0.1-0.8 N EOSINOPHIL # (test code = EO#) 0.22 x10 3/uL 0.0-0.2 H BASOPHIL # (test code = BA#) 0.09 x10 3/uL 0.0-0.2 N NUCLEATED RBC # (test code = NRBC#) 0.00 x10 3/uL 0.0-0.1 N PROTHROMBIN [id number] 05:06:00* Test Item Value Reference Range Interpretation Comme nts PROTHROMBIN TIME PATIENT (test code = PTP) 11.4 SECONDS 9.3-12.9 N INTERNATIONAL NORMAL RATIO (test code = INR) 1.0 0.8-1.2 N TARGET INR BY INDICATION Indication INR1. Prophylaxis of venous thrombosis 2.0 - 3.0 (orthopedic surgery), Prophylaxis of venous thrombosis (other than high-risk surgery), Treatment of Deep Vein Thrombosis/Pulmonary Embolism, Prevention of systemic embolism - Tissue heart valves, Acute Myocardial Infarction (to prevent systemic embolism), Valvular heart disease, Atrial Fibrillation, Bileaflet mechanical valve in aortic position.2. Mechanical prosthetic valves (high risk), 2.5 - 3.5 Presence of Lupus Anticoagulant or Antiphospholipid Antibodies, Prevention of systemic embolism - Acute Myocardial Infarction (to prevent recurrent infarct). THROMBOPLASTIN TIME [id number] 05:06:00* Test Item Value Reference Range Interpretation Comme nts THROMBOPLASTIN TIME PARTIAL (test code = PTT) 35.0 Seconds 25.0-39.5 N Therapeutic Rang e: 50.4 - 88.3 Seconds Effective 07/28/2018 SED RATE [id number] 01:39:00* Test Item Value Reference Range Interpretation Comme nts SED RATE WESTERGREN (test co de = SEDW) 3 mm/hr 0-15 N [id number] 01:03:00* Test Item Value Reference Range Interpretation Comme nts LIPASE (test code = LIP) 63 U/L 13-57 H TROP-I HIGH [id number] 01:03:00* Test Item Value Reference Range Interpretation Comme nts TROP-I HIGH SENSITIVITY (test code = TROPIHS) 4 ng/L 0-54 N CAUTION: Units o f the current test methodology (ng/L) differfrom the prior test methodology (ng/mL) by a factor of 1000. 99th Percentile Upper Reference Limit (URL): Females: 34 ng/LMales: 54 ng/L In order to distinguish acute elevations of high sensitivitytroponin from other clinical conditions, the FourthUniversal Definition of Myocardial Infarction stressesclinical assessment and the demonstration of a rise and/orfall in serial troponin results above the URL. These results were obtained using damntheradio IM TnIHreagent. Results from different methodologies should not becompared to one another as quantitative results and URLs mayvary by method. [id number] 23:47:00* Test Item Value Reference Range Interpretation Comme nts ACT-ISTAT (test code = ACTI) 197 SEC 74-137 H Performed by cer tified blow up operator at [facility] BASIC METABOLIC [id number] 23:23:00* Test Item Value Reference Range Interpretation Comme nts SODIUM (test code = NA) 140 mEq/L 134-147 N POTASSIUM (test code = K) 3.8 mEq/L 3.4-5.0 N CHLORIDE (test code = CL) 104 mEq/L 100-108 N CARBON DIOXIDE (test code = CO2) 31 mEq/l 21-33 N ANION GAP (test code = GAP) 8 0-20 N GLUCOSE (test code = GLU) 47 mg/dL 77-141 L NOTE: NEW NORMAL RANGE BLOOD UREA NITROGEN (test code = BUN) 10 mg/dL 7-25 N NOTE: NEW NORM AL RANGE GLOMERULAR FILTRATION RATE (test code = GFR) 88.1 105-110 L The Glomerular Filtration Rate is a calculated parameterbased on serum Creatinine, patient age and sex. GFR valuesless than 60 mL/min/1.73 square meters are indicative ofChronic Kidney Disease. Values less than 15 mL/min/1.73square meters indicate Kidney failure. The calculation forGFR is based on the CKD-EPI (2020) calculation. This formulais race indifferent and is the recommended formula for GFRby the National Kidney Foundation for Adults.The GFR will not calculate if the sex is unknown or if thepatient's age is <18 years. CREATININE (test code = CREAT) 1.1 mg/dL 0.6-1.3 N CALCIUM (test code = CA) 8.4 mg/dL 8.0-10.5 N [id number] 23:23:00* Test Item Value Reference Range Interpretation Comme nts MAGNESIUM (test code = MAG) 2.46 mg/dL 1.6-2.6 N NOTE: NEW NORMAL RANGE TROP-I HIGH [id number] 23:23:00* Test Item Value Reference Range Interpretation Comme nts TROP-I HIGH SENSITIVITY (test code = TROPIHS) < 3 ng/L 0-54 N CAUTION: Units o f the current test methodology (ng/L) differfrom the prior test methodology (ng/mL) by a factor of 1000. 99th Percentile Upper Reference Limit (URL): Females: 34 ng/LMales: 54 ng/L In order to distinguish acute elevations of high sensitivitytroponin from other clinical conditions, the FourthUniversal Definition of Myocardial Infarction stressesclinical assessment and the demonstration of a rise and/orfall in serial troponin results above the URL. These results were obtained using damntheradio IM TnIHreagent. Results from different methodologies should not becompared to one another as quantitative results and URLs mayvary by method. - XR CHEST 1 [id number] 23:08:00 [facility] 1985 Sex: MFAX: Musa Langford MD [phone] [place]: St: REG Name: TANNER BENDER [facility] : 1985 Age/S: 37/M [address] [place] [address] Unit #: [id number] Loc: [place] [address] Phys: Musa Langford MD Acct: [id number] Dis Date: Status: [facility] ER PHONE #: [phone] Exam Date: 02/06/20232256 FAX #: [phone] Reason: Chest Pain EXAMS: CPT CODE: [id number] XR CHEST 1 V 44054 EXAM: - XR CHEST 1 V HISTORY: Chest pain. COMPARISON: February 02, 2023. FINDINGS: Single AP view of the chest is provided.Heart size and vascularity are within normal limits. There is no evidence of a focal consolidation. There is no pleural effusion or pneumothorax. There is no definite acute osseous abnormality. IMPRE SSION: No radiographic evidence of acute cardiopulmonary process. at 2308 Reported and signed by: Marbin Fish M.D. CC:Musa Langford MD Technologist: RT Obdulia(R) Trnscrd Date/Time/By: 02/06/2023 (2307) : By: [email or web address] Orig Print D/T: S: 02/06/2023 (5387) PAGE 1 Signed ReportCBC W/AUTO [id number] 23:07:00* Test Item Value Reference Range Interpretation Comme nts WHITE BLOOD CELL (test code = WBC) 11.2 x10 3/uL 4.5-11.0 H RED BLOOD CELL (test code = RBC) 4.21 x10 6/uL 4.00-5.60 N HEMOGLOBIN (test code = HGB) 13.3 g/dL 12.5-16.9 N HEMATOCRIT (test code = HCT) 40.1 % 37.5-50.7 N MEAN CELL VOLUME (test code = MCV) 95.2 fL 81.0-99.0 N MEAN CELL HGB (test code = MCH) 31.6 pg 27.0-33.0 N MEAN CELL HGB CONCETRATION (test code = MCHC) 33.2 g/dL 33.0-37.0 N RED CELL DISTRIBUTION WIDTH CV (test code = RDW) 12.8 % 11.5-14.5 N RED CELL DISTRIBUTION WIDTH SD (test code = RDW-SD) 44.4 fL 37.0-54.0 N PLATELET COUNT (test code = PLT) 322 x10 3/uL 150-400 N MEAN PLATELET VOLUME (test c ode = MPV) 9.7 fL 7.0-9.0 H NEUTROPHIL % (test code = NT%) 53.3 % 56.0-77.0 L IMMATURE GRANULOCYTE % (test code = IG%) 0.3 % 0.0-2.0 N LYMPHOCYTE % (test code = LY%) 34.8 % 14.0-32.0 H MONOCYTE % (test code = MO%) 7.8 % 4.8-9.0 N EOSINOPHIL % (test code = EO%) 2.8 % 0.3-3.7 N BASOPHIL % (test code = BA%) 1.0 % 0.0-2.0 N NUCLEATED RBC % (test code = NRBC%) 0.0 % 0-0 N NEUTROPHIL # (test code = NT#) 5.97 x10 3/uL 2.0-7.6 N IMMATURE GRANULOCYTE # (test code = IG#) 0.03 x10 3/uL 0.00-0.03 N LYMPHOCYTE # (test code = LY#) 3.89 x10 3/uL 1.0-3.8 H MONOCYTE # (test code = MO#) 0.87 x10 3/uL 0.1-0.8 H EOSINOPHIL # (test code = EO#) 0.31 x10 3/uL 0.0-0.2 H BASOPHIL # (test code = BA#) 0.11 x10 3/uL 0.0-0.2 N NUCLEATED RBC # (test code = NRBC#) 0.00 x10 3/uL 0.0-0.1 N MANUAL DIFF REQUIRED (test c ode = MDIFF) NO [id number] 21:37:00* Test Item Value Reference Range Interpretation Comme nts TROPONIN-HS (test code = TROPI) <4.0 pg/mL 0-54 N 99th Percentile Upper Reference Limit (URL):Females: 34 pg/mLMales: 54 pg/mL In order to distinguish acute elevations of high sensitivitytroponin from other clinical conditions, the FourthUniversal Definition of Myocardial Infarction stressesclinical assessment and the demonstration of a rise and/orfall in serial troponin results above the URL. These results were obtained using Siemens Enforta IM TnIHreagent. Results from different methodologies should not becompared to one another as quantitative results and URLs mayvary by method. NOTE: A Positive Bias may occur for patients taking Biotin Supplements.NOTE: Current test methodology (pg/mL) units differ from prior test methodology (ng/mL) by a factor of 1000. HEPATIC FUNCTION [id number] 18:27:00* Test Item Value Reference Range Interpretation Comme nts TOTAL PROTEIN (test code = PROT) 6.8 gram/dL 6.4-8.2 N ALBUMIN (test code = ALB) 3.7 g/dL 3.4-5.0 N GLOBULIN (test code = GLOB) 3.1 gram/dL 2.7-4.2 N ALBUMIN/GLOBULIN RATIO (test code = A/G) 1.2 0.75-1.50 N BILIRUBIN TOTAL (test code = BILT) 0.50 mg/dL 0.0-1.0 N BILIRUBIN DIRECT (test code = BILD) 0.20 mg/dL 0.0-0.20 N SGOT/AST (test code = AST) 19 IUnit/L 15-37 N SGPT/ALT (test code = ALT) 26 IUnit/L 12-78 N ALKALINE PHOSPHATASE TOTAL (test code = ALKP) 58 IUnit/L 45-117 N Note change in reference range due to change in reagent. [id number] 18:27:00* Test Item Value Reference Range Interpretation Comme [facility] ALCOHOL (test code = ALC) 4 mg/dL 0.0-3.0 H -INTERPRET ANANTH DATA NOTE: POSITIVE SCREENING RESULTS SHOULD BE CONSIDERED PRESUMPTIVE.WHEN COLLECTED FOR MEDICAL PURPOSES ONLY. SPECIMEN WILL NOTBE COLLECTED BY CHAIN OF CUSTODY.IF A CONFIRMATION OF POSITIVE RESULTS IS DESIRED, ACONFIRMATION TEST MUST BE REQUESTED BY THE PHYSICIAN AT ANADDITIONAL CHARGE TO THE PATIENT. [id number] 18:21:00* Test Item Value Reference Range Interpretation Comme [facility] LIPASE (test code = LIP) 53 U/L 12-57 N - XR CHEST 1 [id number] 18:21:00 [facility]Name: TANNER BENDER ROSANA : 1985 Sex: M FAX: Alia Mata [place]: [address] St: REG Name: TANNER BENDER [facility] : 1985 Age/S: 37/M [address] Unit #: [id number] Loc: [place] [address] Phys: Alia Mata Acct: [id number] Dis Date: Status: REG ER PHONE #: [phone] Exam Date: 02/02/2023 1804 FAX #: [phone] Reason: CHEST PAIN EXAMS: CPT CODE: [id number] XR CHEST 1 V 73293 HISTORY: CHEST PAIN TECHNIQUE: AP chest x-ray COMPARISON: 01/30/23 FINDINGS: No airspace consolidation. No pneumothorax or pleural effusion. Normal heart size. Mediastinal silhouette is unremarkable. Visualized osseous structures are grossly intact. IMPRESSION: No radiographic evidence of acute cardiopulmonary process. LOCATION: LP at 1821 Reported and signed by: Sarita Yancey D.O. CC: Alia Mata Technologist: Cathy Aquino) Trnscrd Date/Time/By: 02/02/2023 (1820) : By: [email or web address] Orig Print D/T: S: 02/02/2023 (1823) PAGE 1 Signed ReportBASIC METABOLIC [id number] 18:11:00* Test Item Value Reference Range Interpretation Comme nts SODIUM (test code = NA) 142 mmol/L 136-145 N POTASSIUM (test code = K) 4.2 mmol/L 3.5-5.1 N CHLORIDE (test code = CL) 110.0 mmol/L 98-107 H CARBON DIOXIDE (test code = CO2) 26.0 mmol/L 21-32 N ANION GAP (test code = GAP) 10.2 10-20 N GLUCOSE (test code = GLU) 101 mg/dL 74-106 N BLOOD UREA NITROGEN (test code = BUN) 7 mg/dL 7-18 N GLOMERULAR FILTRATION RATE (test code = GFR) > 60 mL/min >=60 The Glomerular Filtration Rate is a calculated parameterbased on serum Creatinine, patient age and sex. GFR valuesless than 60 mL/min/1.73 square meters are indicative ofChronic Kidney Disease. Values less than 15 mL/min/1.73square meters indicate Kidney failure. The calculation forGFR is based on the CKD-EPI (202) calculation. This formulais race indifferent and is the recommended formula for GFRby the National Kidney Foundation for Adults.The GFR will not calculate if the sex is unknown or if thepatient's age is <18 years. CREATININE (test code = CREAT) 1.00 mg/dL 0.7-1.3 N BUN/CREATININE RATIO (test code = BUN/CREA) 7.3 10-20 L CALCIUM (test code = CA) 8.6 mg/dL 8.5-10.1 N [id number] 18:11:00* Test Item Value Reference Range Interpretation Comme nts TROPONIN-HS (test code = TROPI) <4.0 pg/mL 0-54 N 99th Percentile Upper Reference Limit (URL):Females: 34 pg/mLMales: 54 pg/mL In order to distinguish acute elevations of high sensitivitytroponin from other clinical conditions, the FourthUniversal Definition of Myocardial Infarction stressesclinical assessment and the demonstration of a rise and/orfall in serial troponin results above the URL. These results were obtained using Siemens AtemmCHANNEL IM TnIHreagent. Results from different methodologies should not becompared to one another as quantitative results and URLs mayvary by method. NOTE: A Positive Bias may occur for patients taking Biotin Supplements.NOTE: Current test methodology (pg/mL) units differ from prior test methodology (ng/mL) by a factor of 1000. - CTA HEAD STROKE VIZ [id number] 18:00:[address] [facility]Name: TANNER BENDER : 1985 Sex: M Name: [facility]ANNER BENDER [facility] : 1985 Age/S: 37 / M [address] Unit#: [id number] Loc: [place] [address] Phys: Amy Preciado MD Acct: [id number] Dis Date: Status: REG ER PHONE #: [phone] Exam Date: 02/02/20231732 FAX #: [phone] Reason: left sided numbness, dizziness EXAMS: CPT CODE: [id number] [place] [address] HISTORY: left sided numbness, dizziness TECHNIQUE: 1. Head CT angiography with contrast. 3-D post processing with maximum intensity projection (MIP) and/or volume rendered reconstructions. 2. Neck CT angiography with contrast.3-D post processing with maximum intensity projection (MIP) and/or volume rendered reconstructions.One or more of the following dose reduction techniques were used: Automated exposure control, adjustment of the mA and/or kV according to patient size, and/or utilization of iterative reconstruction t echnique. COMPARISON: None FINDINGS: CTA HEAD: Bilateral distal cervical, petrous, cavernous, and supraclinoid ICA segments are patent. Bilateral A1 and distal NERY segments are patent. Anterior communicating artery is present. Bilateral M1 and distal MCA branches are patent. Bilateral distal vertebral arteries are patent. Hypoplastic right V4 segment. Basilar artery is patent. Bilateral SCAs are patent. Bilateral P1 and distal PORT CAPTAIN segments are patent. Diminutive bilateral posterior communicating arteries are present. No aneurysm or arteriovenous malformation. Dural venous sinuses and proximalinternal jugular veins are patent. No CT evidence of acute infarct. No abnormal brain enhancement. CTA NECK: Right common carotid artery is patent. Right cervical internal carotid artery is patent. Right external carotid artery is patent. Left common carotid artery is patent. Left cervical internalcarotid artery is patent. Left external carotid artery is patent. PAGE 1 Signed Report (CONTINUED) Name: TANNER BENDER [facility] : 1985 Age/S: 37 / M [address] Unit #: [id number] Loc: [place] [address] Phys: Amy Preciado MD Acct: [id number] Dis Date: Status: REG ER PHONE #: [phone] Exam Date: 02/02/2023 1733 FAX #: [phone] Reason: left sided numbness, dizziness EXAMS: CPT CODE: [id number] [place] [address] (Continued) Bilateral vertebral arteries are patent. Left dominant vertebral artery. Regional soft tissues are unremarkable. IMPRESSION: No intracranial large vessel occlusion or high-grade stenosis. No cervical carotid or vertebral artery stenosis. Note: Carotid stenosis estimation based on NASCET measurement criteria. LOCATION: LP at 1800 Reported and signed by: Sarita Yancey D.O. CC: Amy Preciado MD Technologist:Nata Pruitt RT(R),CT CTDI: DLP: Trnscb Date/Time: 02/02/2023 (1800) [email or web address] Orig Print D/T: S: 02/02/2023 (180) PAGE 2 Signed Report- CTA NECK STROKE VIZ [id number] 18:00:00 [facility]Name: TANNER BENDER : 1985 Sex: M Name: TANNER BENDER [facility] : 1985 Age/S: 37 / M Samaria Haroncer [facility] Unit#: [id number] Loc: [place] [address] Phys: Amy Preciado MD Acct: [id number] Dis Date: Status: REG ER PHONE #: [phone] Exam Date: 02/02/20231732 FAX #: [phone] Reason: left sided numbness, dizziness EXAMS: CPT CODE: [id number] [place] [address] HISTORY: left sided numbness, dizziness TECHNIQUE: 1. Head CT angiography with contrast. 3-D post processing with maximum intensity projection (MIP) and/or volume rendered reconstructions. 2. Neck CT angiography with contrast. 3-D post processing with maximum intensity projection (MIP) and/or volume rendered reconstructions. One or more of the following dose reduction techniques were used: Automated exposure control, adjustment of the mA and/or kV according to patient size, and/or utilization of iterative reconstruction technique. COMPARISON: None FINDINGS: CTA HEAD: Bilateral distal cervical, petrous, cavernous, and supraclinoid ICA segments are patent. Bilateral A1 and distal NERY segments are patent. Anterior communicating artery is present. Bilateral M1 and distal MCA branches are patent. Bilateral distal vertebral arteries are patent. Hypoplastic right V4 segment. Basilar artery is patent. Bilateral SCAs are patent. Bilateral P1 and distal PORT CAPTAIN segments are patent. Diminutive bilateral posterior communicating arteries are present. No aneurysm or arteriovenous malformation. Dural venous sinuses and proximal internal jugular veins are patent. No CT evidence of acute infarct. No abnormal brain enhancement. CTA NECK: Right common carotid artery is patent. Right cervical internal carotid artery is patent. Right external carotid artery is patent. Left common carotid artery is patent. Left cervical internal carotid artery is patent. Left external carotid artery is patent. PAGE 1 Signed Report (CONTINUED) Name: TANNER BENDER [facility] : 1985 Age/S: 37 / M [address] [facility] Unit #: [id number] Loc: [place] [address] Phys: Amy Preciado MD Acct: [id number] Dis Date: Status: REG ER PHONE #: [phone] Exam Date: 02/02/20231732 FAX #: [phone] Reason: left sided numbness, dizziness EXAMS: CPT CODE: [id number] [place] [address] (Continued) Bilateral vertebral arteries are patent. Left dominant vertebral artery. Regional soft tissues are unremarkable. IMPRESSION: No intracranial large vessel occlusion or high-grade stenosis. No cervical carotid or vertebral artery stenosis. Note: Carotid stenosis estimation based on NASCET measurement criteria. LOCATION: LP at 1800 Reported and signed by: Sarita Yancey D.O. CC: Amy Preciado MD Technologist:Nata Pruitt RT(R),CT CTDI: DLP: Trnscb Date/Time: 02/02/2023 (1800) [email or web address] Orig Print D/T: S: 02/02/2023 (180) PAGE 2 Signed ReportCBC W/O [id number] 17:58:00* Test Item Value Reference Range Interpretation Comme nts WHITE BLOOD CELL (test code = WBC) 9.3 K/mm3 4.5-12.5 N RED BLOOD CELL (test code = RBC) 4.39 mill/mm3 4.0-5.8 N HEMOGLOBIN (test code = HGB) 13.9 gram/dL 13.0-17.5 N HEMATOCRIT (test code = HCT) 41.6 % 42.0-52.0 L MEAN CELL VOLUME (test code = MCV) 94.8 fL 80-98 N MEAN CELL HGB (test code = MCH) 31.7 picogram 27.0-33.0 N MEAN CELL HGB CONCETRATION (test code = MCHC) 33.4 gram/dL 33.0-36.0 N RED CELL DISTRIBUTION WIDTH (test code = RDW) 12.5 % 11.6-16.2 N PLATELET COUNT (test code = PLT) 308 K/mm3 150-450 N MEAN PLATELET VOLUME (test c ode = MPV) 10.0 fL 6.7-11.0 N PROTHROMBIN [id number] 17:54:00* Test Item Value Reference Range Interpretation Comme nts PROTHROMBIN TIME PATIENT (test code = PTP) 11.7 seconds 10.0-14.0 N INTERNATIONAL NORMAL RATIO (test code = INR) 1.0 0.8-1.2 N The therapeutic range for oral anticoagulant therapy formost indications is an international normalized ratio (INR)of between 2.0 and 3.0. The recommended therapeutic INRrange for various clinical situations is listed below: Clinical Situation INR range Pulmonary embolism treatment (2.0-3.0)Venous thrombosis treatmentVenous thrombosis prophylaxis (high risk surgery)Prevention of systemic embolism from: Acute myocardial infarction Valvular heart disease Atrial fibrillation Mechanical prosthetic heart valves (2.5-3.5) IS PATIENT ON ANTICOAGULANTS? NTHROMBOPLASTIN TIME [id number] 17:54:00* Test Item Value Reference Range Interpretation Comme nts THROMBOPLASTIN TIME PARTIAL (test code = PTT) 33.9 seconds 26.6-37.3 N IS PATIENT ON ANTICOAGULANTS? N- CT HEAD/BRAIN W/O [id number] 17:38:00 [facility] 1985 Sex: M Name: TANNER BENDER [facility] : 1985 Age/S: 37 / M [address] [facility] Unit#: [id number] Loc: [place] [address] Phys: Amy Preciado MD Acct: [id number] Dis Date: Status: REG ER PHONE #: [phone] Exam Date: 02/02/2023 5280 FAX #: [phone] Reason: left sided numbness, dizziness EXAMS: CPT CODE: [id number] CT HEAD/BRAIN W/O CONT 08804 HISTORY: left sided numbness, dizziness TECHNIQUE: Noncontrast 2.[address] of the head. One or more of the following dose reduction techniques were used: Automated exposure control, adjustment of the mA and/or kV according to patient size, and/or utilization of iterative reconstruction technique. COMPARISON: 07/31/15 FINDINGS: No acute hemorrhage. No CT evidence of acute infarct. No intracranial mass or mass effect.No hydrocephalus. No extra-axial fluid collection. Visualized paranasal sinuses are clear. Mastoid air cells and middle ear cavities are clear. Orbital contents are unremarkable. Calvarium and skull base are intact. IMPRESSION: No CT evidence of acute infarct. MRI would be more sensitive if there is continued clinical concern. No acute intracranial hemorrhage. Called to Dr. Preciado at 1738. LOCATION: at 1738 Reported and signed by:Sarita Yancey D.O. CC: Amy Preciado MD Technologist:Nata Pruitt RT(R),CT CTDI: DLP: TrnscbDate/Time: 02/02/2023 (1738) [email or web address] Orig Print D/T: S: 02/02/2023 (5903) PAGE 1 Signed Report- CTA [id number] 21:34:[address] [facility])Name: TANNER BENDER : 1985 Sex: M Name: TANNER BENDER [facility] : 1985 Age/S: 37 / M [address] [facility] Unit #: [id number] Loc: [place] [address] Phys: Michele Rowe MD Acct: [id number] Dis Date: Status: REG ER PHONE #: [phone] Exam Date: 01/30/20232129 FAX #: [phone] Reason: concern for PEEXAMS: CPT CODE: [id number] CTA CHEST 57604 REASON FOR EXAM: concern for PE EXAM ORDER DATE: 01/30/2023 7:24 PM Ordering: Michele Rowe MD Attending:Michele Rowe MD Location:[facility] PROCEDURE: - CTA CHEST FINDINGS: CT images of the chest were obtained with IV contrast using PE protocol. Reconstructed sagittal and coronal images including 3D reconstructions of the chest were provided for interpretation. Dose reduction techniques were applied. The heart size is within normal limits. No evidence of pericardial effusion The thoracic aorta is unremarkable. No evidence of dissection or aneurysmal dilatation. No filling defect seen within the main or lobar pulmonary arteries to suggest pulmonary embolus No evidence of mediastinal or hilar adenopathy The lungs are clear. No evidence of pleural effusion IMPRESSION: No acute findings in the chest. at 2134 Reported and signed by: Edu Witt M.D. CC: Michele Rowe MD Technologist:Nehemiah Jackson CTDI: DLP: Trnscb Date/Time: 01/30/2023 (2133) [email or web address] Orig Print D/T: S: 01/30/2023 (2136) PAGE 1 Signed ReportBASIC METABOLIC [id number] 21:17:00* Test Item Value Reference Range Interpretation Comme nts SODIUM (test code = NA) 140 mmol/L 136-145 N POTASSIUM (test code = K) 3.9 mmol/L 3.5-5.1 N CHLORIDE (test code = CL) 106.0 mmol/L 98-107 N CARBON DIOXIDE (test code = CO2) 30.0 mmol/L 21-32 N ANION GAP (test code = GAP) 7.9 10-20 L GLUCOSE (test code = GLU) 81 mg/dL 74-106 N BLOOD UREA NITROGEN (test code = BUN) 7 mg/dL 7-18 N GLOMERULAR FILTRATION RATE (test code = GFR) > 60 mL/min >=60 The Glomerular Filtration Rate is a calculated parameterbased on serum Creatinine, patient age and sex. GFR valuesless than 60 mL/min/1.73 square meters are indicative ofChronic Kidney Disease. Values less than 15 mL/min/1.73square meters indicate Kidney failure. The calculation forGFR is based on the CKD-EPI (2020) calculation. This formulais race indifferent and is the recommended formula for GFRby the National Kidney Foundation for Adults.The GFR will not calculate if the sex is unknown or if thepatient's age is <18 years. CREATININE (test code = CREAT) 1.10 mg/dL 0.7-1.3 N BUN/CREATININE RATIO (test code = BUN/CREA) 6.4 10-20 L CALCIUM (test code = CA) 9.0 mg/dL 8.5-10.1 N [id number] 21:17:00* Test Item Value Reference Range Interpretation Comme nts TROPONIN-HS (test code = TROPI) <4.0 pg/mL 0-54 N 99th Percentile Upper Reference Limit (URL):Females: 34 pg/mLMales: 54 pg/mL In order to distinguish acute elevations of high sensitivitytroponin from other clinical conditions, the FourthUniversal Definition of Myocardial Infarction stressesclinical assessment and the demonstration of a rise and/orfall in serial troponin results above the URL. These results were obtained using Siemens Enforta IM TnIHreagent. Results from different methodologies should not becompared to one another as quantitative results and URLs mayvary by method. NOTE: A Positive Bias may occur for patients taking Biotin Supplements.NOTE: Current test methodology (pg/mL) units differ from prior test methodology (ng/mL) by a factor of 1000. B-TYPE NATRIURETIC [id number] 21:16:00* Test Item Value Reference Range Interpretation Comme nts B-TYPE NATRIURETIC PEPTIDE (test code = BNP) 19.6 pgram/mL 0-100 N CBC W/O [id number] 20:59:00* Test Item Value Reference Range Interpretation Comme nts WHITE BLOOD CELL (test code = WBC) 8.9 K/mm3 4.5-12.5 N RED BLOOD CELL (test code = RBC) 4.60 mill/mm3 4.0-5.8 N HEMOGLOBIN (test code = HGB) 14.4 gram/dL 13.0-17.5 N HEMATOCRIT (test code = HCT) 43.4 % 42.0-52.0 N MEAN CELL VOLUME (test code = MCV) 94.3 fL 80-98 N MEAN CELL HGB (test code = MCH) 31.3 picogram 27.0-33.0 N MEAN CELL HGB CONCETRATION (test code = MCHC) 33.2 gram/dL 33.0-36.0 N RED CELL DISTRIBUTION WIDTH (test code = RDW) 12.6 % 11.6-16.2 N PLATELET COUNT (test code = PLT) 328 K/mm3 150-450 N MEAN PLATELET VOLUME (test c ode = MPV) 9.7 fL 6.7-11.0 N - XR CHEST 1 [id number] 18:50:00 [facility] 1985 Sex: M FAX: Michele Rowe MD [phone] [place]: [address]: REG Name: TANNER BENDER [facility] : 1985 Age/S: 37/M Samaria Gagnon [facility] Unit #: [id number] Loc: [place] [address] Phys: Michele Rowe MD Acct: [id number] Dis Date: Status: REG ER PHONE #: [phone] Exam Date: 01/30/20231824 FAX#: [phone] Reason: CHEST PAIN EXAMS: CPT CODE: [id number] XR CHEST 1 V 01382 REASON FOR EXAM: CHEST PAIN Exam Order Date: 01/30/2023 6:30 PM Ordering M.D.: Michele Rowe MD PROCEDURE: - XR CHEST 1 V COMPARISON: 11/11/2022 FINDINGS: Lines/Tubes: None The lungs are clear. There is no pleural effusion or pneumothorax. Pulmonary vascularity is within normal limits. Cardiomediastinal silhouetteand mediastinal contours are unchanged when accounting for differences in technique. Musculoskeletal structures and visualized portions of the upper abdomen are also unchanged. IMPRESSION: No acute cardiopulmonary process. Location: at 1850 Reported and signed by: Edu Witt M.D. CC: Michele Rowe MD Technologist: Keysha Graf RT(R); Suzanne Thomas RT(R) Trnscrd Date/Time/By: 01/30/2023 (1849) : By: [email or web address] Orig Print D/T: S: 01/30/2023 (1852) PAGE 1 Signed ReportCBC W/AUTO [id number] 02:06:00* Test Item Value Reference Range Interpretation Comme nts WHITE BLOOD CELL (test code = WBC) 6.4 K/mm3 4.5-12.5 N RED BLOOD CELL (test code = RBC) 3.90 mill/mm3 4.0-5.8 L HEMOGLOBIN (test code = HGB) 12.3 gram/dL 13.0-17.5 L RESULT VERIFIED BY REPEAT ANALYSIS HEMATOCRIT (test code = HCT) 36.1 % 42.0-52.0 L MEAN CELL VOLUME (test code = MCV) 92.6 fL 80-98 N MEAN CELL HGB (test code = MCH) 31.5 picogram 27.0-33.0 N MEAN CELL HGB CONCETRATION (test code = MCHC) 34.1 gram/dL 33.0-36.0 N RED CELL DISTRIBUTION WIDTH (test code = RDW) 13.4 % 11.6-16.2 N RED CELL DISTRIBUTION WIDTH SD (test code = RDW-SD) 45.5 fL 37.0-51.0 N PLATELET COUNT (test code = PLT) 204 K/mm3 150-450 RESULT VERIFIED BY REPEAT ANALYSIS MEAN PLATELET VOLUME (test code = MPV) 10.6 fL 6.7-11.0 N NEUTROPHIL % (test code = NT%) 48.2 % 39.0-69.0 N IMMATURE GRANULOCYTE % (test code = IG%) 0.2 % 0.0-5.0 N LYMPHOCYTE % (test code = LY%) 36.3 % 25.0-55.0 N MONOCYTE % (test code = MO%) 9.1 % 0.0-10.0 N EOSINOPHIL % (test code = EO%) 5.3 % 0.0-5.0 H BASOPHIL % (test code = BA%) 0.9 % 0.0-1.0 N NUCLEATED RBC % (test code = NRBC%) 0.0 % 0-0 N NEUTROPHIL # (test code = NT#) 3.07 K/mm3 1.8-7.7 N IMMATURE GRANULOCYTE # (test code = IG#) 0.01 x10 3/uL 0-0.03 N LYMPHOCYTE # (test code = LY#) 2.31 K/mm3 1.0-5.0 N MONOCYTE # (test code = MO#) 0.58 K/mm3 0-0.8 N EOSINOPHIL # (test code = EO#) 0.34 K/mm3 0.0-0.5 N BASOPHIL # (test code = BA#) 0.06 K/mm3 0.0-0.2 N NUCLEATED RBC # (test code = NRBC#) 0.00 K/mm3 0.0-0.1 N COMPREHENSIVE METABOLIC [id number] 01:58:00* Test Item Value Reference Range Interpretation Comme nts SODIUM (test code = NA) 140 mmol/L 136-145 N POTASSIUM (test code = K) 4.1 mmol/L 3.5-5.1 N CHLORIDE (test code = CL) 107.0 mmol/L 98-107 N CARBON DIOXIDE (test code = CO2) 27.0 mmol/L 21-32 N ANION GAP (test code = GAP) 10.1 10-20 N GLUCOSE (test code = GLU) 89 mg/dL 74-106 N BLOOD UREA NITROGEN (test code = BUN) 11 mg/dL 7-18 N GLOMERULAR FILTRATION RATE (test code = GFR) > 60 mL/min See_Comment The Glomerular Filtration Rate is a calculated parameterbased on serum Creatinine, patient age and sex. GFR valuesless than 60 mL/min/1.73 square meters are indicative ofChronic Kidney Disease. Values less than 15 mL/min/1.73square meters indicate Kidney failure. The calculation forGFR is based on the CKD-EPI (2020) calculation. This formulais race indifferent and is the recommended formula for GFRby the National Kidney Foundation for Adults.The GFR will not calculate if the sex is unknown or if thepatient's age is <18 years. [Automated message] The system which generated this result transmitted reference range: >=60. The reference range was not used to interpret this result as normal/abnormal. CREATININE (test code = CREAT) 0.70 mg/dL 0.7-1.3 N BUN/CREATININE RATIO (test code = BUN/CREA) 15.1 10-20 N TOTAL PROTEIN (test code = PROT) 5.7 gram/dL 6.4-8.2 L ALBUMIN (test code = ALB) 3.2 g/dL 3.4-5.0 L GLOBULIN (test code = GLOB) 2.5 gram/dL 2.7-4.2 L ALBUMIN/GLOBULIN RATIO (test code = A/G) 1.3 0.75-1.50 N CALCIUM (test code = CA) 8.5 mg/dL 8.5-10.1 N BILIRUBIN TOTAL (test code = BILT) 0.60 mg/dL 0.0-1.0 N SGOT/AST (test code = AST) 19 IUnit/L 15-37 N SGPT/ALT (test code = ALT) 12 IUnit/L 12-78 N ALKALINE PHOSPHATASE TOTAL (test code = ALKP) 53 IUnit/L 45-117 N Note change in reference range due to change in reagent. [id number] 01:58:00* Test Item Value Reference Range Interpretation Comme nts PHOSPHORUS (test code = PHOS) 3.9 mg/dL 2.5-4.9 N [id number] 01:58:00* Test Item Value Reference Range Interpretation Comme nts MAGNESIUM (test code = MAG) 2.0 mg/dL 1.8-2.4 N [id number] 18:53:00* Test Item Value Reference Range Interpretation Comme nts TROPONIN-HS (test code = TROPI) 5.490 pg/mL 0-54 N 99th Percentile Upper Reference Limit (URL):Females: 34 pg/mLMales: 54 pg/mL In order to distinguish acute elevations of high sensitivitytroponin from other clinical conditions, the FourthUniversal Definition of Myocardial Infarction stressesclinical assessment and the demonstration of a rise and/orfall in serial troponin results above the URL. These results were obtained using Siemens AtellAskNshare IM TnIHreagent. Results from different methodologies should not becompared to one another as quantitative results and URLs mayvary by method. NOTE: A Positive Bias may occur for patients taking Biotin Supplements.NOTE: Current test methodology (pg/mL) units differ from prior test methodology (ng/mL) by a factor of 1000. - XR CHEST 1 [id number] 16:59:00 [facility]Name: YULIA TANNERMARK ANTHONY WAYNE : 1985 Sex: M FAX: Tj Hernandez [phone] [place]: [address]: ADM Name: TANNER BENDER [facility] : 1985Age/S: 36/M Samaria Giang Unit #: [id number] Loc: [place] [address] Phys: Tj Dick MD Acct: [id number] Dis Date: Status: ADM IN PHONE #: [phone] Exam Date: 11/11/2022 1608FAX #: [phone] Reason: CHEST PAIN EXAMS: CPT CODE: [id number] XR CHEST 1 V 74971 EXAM: - XR CHEST 1 V DATE: 11/11/2022 11:19 AM. INDICATION: CHEST PAIN . COMPARISON: None available. TECHNIQUE: Frontal chest. FINDINGS: Lines, Tubes and Hardware: None. Lungs and Pleura: No focal consolidation, pleural effusion, or pneumothorax is identified. Heart and Mediastinum: The heart size is normal. The mediastinal contours are unremarkable. Pulmonary vascularity is unremarkable. Bones: No acute skeletal abnormality is identified. Upper abdomen: Within normal limits IMPRESSION: No acute abnormality. at 1659 Reported and signed by: Donovan Graham M.D. CC: Tj Dick MD Technologist: Janelle Perales RT(R); Ashvin Doshi RT(R Trnscrd Date/Time/By: 11/11/2022 (729) : By: [email or web address] Orig Print D/T: S: 11/11/2022(4689) PAGE 1 Signed ReportTHROMBOPLASTIN TIME [id number] 16:52:00* Test Item Value Reference Range Interpretation Comme nts THROMBOPLASTIN TIME PARTIAL (test code = PTT) 34.6 seconds 26.6-37.3 N IS PATIENT ON ANTICOAGULANTS? NSPECIMEN COMMENTS: CHECKING FOR SHEATH REMOVAL LIPID PROFILE (CORONARY RISK)2022-11-11 13:20:00* Test Item Value Reference Range Interpretation Comme nts TRIGLYCERIDES (test code = TRIG) 90 mg/dL 20-150 N CHOLESTEROL (test code = CHOL) 146 mg/dL 0-200 N CHOLESTEROL/HDL RATIO (test code = CHOLHDL) 3.0 RATIO 0-4.9 N RISK ASSOC IATED WITH CHOL/HDL RATIOS: Risk Male Female1/2 AVERAGE 3.43 3.27AVERAGE 4.97 4.442X AVERAGE 9.55 7.053X AVERAGE 23.39 11.04 REFERENCE VALUE IS RELATED TO RISK LEVELS ASRECOMMENDED BY THE [facility]. HEART, LUNG, AND BLOOD INST. HDL CHOLESTEROL (test code = HDL) 43 mg/dL 40-60 N LIPOPROTEIN LDL (test code = LDL) 81 mg/dL 0-99 N ====== Referen ce Interval: mg/dL mmol/L O ptimal <100 <2.6Near/above optimal 100-129 2.6-3.3Borderline High 130-159 3.4-4.1High 160-189 4.1-4.9Very High >=190 >=4.9========= This LDL result is a direct measurement.========= TSH REFLEX TO [id number] 13:20:00* Test Item Value Reference Range Interpretation Comme nts TSH REFLEX TO FT4 (test code = TSHREFLEX) 0.9 0.4-5.5 N [id number] 13:17:00* Test Item Value Reference Range Interpretation Comme nts GLYCOSYLATED HEMOGLOBIN (HA1C) (test code = GLYHGB) 5.3 % HbA1 SUGGESTED DIAGNO SIS: HbA1C (%) ----- Diabetic >6.4Prediabetes 5.7 - 6.4Normal <5.7 ESTIMATED AVERAGE GLUCOSE (test code = EAG) 105 MG/DL COMPREHENSIVE METABOLIC [id number] 12:05:00* Test Item Value Reference Range Interpretation Comme nts SODIUM (test code = NA) 137 mmol/L 136-145 N POTASSIUM (test code = K) 4.7 mmol/L 3.5-5.1 N CHLORIDE (test code = CL) 106.0 mmol/L 98-107 N CARBON DIOXIDE (test code = CO2) 27.0 mmol/L 21-32 N ANION GAP (test code = GAP) 8.7 10-20 L GLUCOSE (test code = GLU) 95 mg/dL 74-106 N BLOOD UREA NITROGEN (test code = BUN) 6 mg/dL 7-18 L GLOMERULAR FILTRATION RATE (test code = GFR) > 60 mL/min See_Comment The Glomerular Filtration Rate is a calculated parameterbased on serum Creatinine, patient age and sex. GFR valuesless than 60 mL/min/1.73 square meters are indicative ofChronic Kidney Disease. Values less than 15 mL/min/1.73square meters indicate Kidney failure. The calculation forGFR is based on the CKD-EPI (2020) calculation. This formulais race indifferent and is the recommended formula for GFRby the National Kidney Foundation for Adults.The GFR will not calculate if the sex is unknown or if thepatient's age is <18 years. [Automated message] The system which generated this result transmitted reference range: >=60. The reference range was not used to interpret this result as normal/abnormal. CREATININE (test code = CREAT) 1.00 mg/dL 0.7-1.3 N BUN/CREATININE RATIO (test code = BUN/CREA) 6.3 10-20 L TOTAL PROTEIN (test code = PROT) 7.8 gram/dL 6.4-8.2 N ALBUMIN (test code = ALB) 4.6 g/dL 3.4-5.0 N GLOBULIN (test code = GLOB) 3.2 gram/dL 2.7-4.2 N ALBUMIN/GLOBULIN RATIO (test code = A/G) 1.4 0.75-1.50 N CALCIUM (test code = CA) 9.5 mg/dL 8.5-10.1 N BILIRUBIN TOTAL (test code = BILT) 0.70 mg/dL 0.0-1.0 N SGOT/AST (test code = AST) 20 IUnit/L 15-37 N SGPT/ALT (test code = ALT) 14 IUnit/L 12-78 N ALKALINE PHOSPHATASE TOTAL (test code = ALKP) 64 IUnit/L 45-117 N Note change in reference range due to change in reagent. [id number] 12:05:00* Test Item Value Reference Range Interpretation Comme nts TROPONIN-HS (test code = TROPI) <4.0 pg/mL 0-54 N 99th Percentile Upper Reference Limit (URL):Females: 34 pg/mLMales: 54 pg/mL In order to distinguish acute elevations of high sensitivitytroponin from other clinical conditions, the FourthUniversal Definition of Myocardial Infarction stressesclinical assessment and the demonstration of a rise and/orfall in serial troponin results above the URL. These results were obtained using Siemens Enforta IM TnIHreagent. Results from different methodologies should not becompared to one another as quantitative results and URLs mayvary by method. NOTE: A Positive Bias may occur for patients taking Biotin Supplements.NOTE: Current test methodology (pg/mL) units differ from prior test methodology (ng/mL) by a factor of 1000. CBC W/AUTO [id number] 11:42:00* Test Item Value Reference Range Interpretation Comme nts WHITE BLOOD CELL (test code = WBC) 8.1 K/mm3 4.5-12.5 N RED BLOOD CELL (test code = RBC) 4.85 mill/mm3 4.0-5.8 N HEMOGLOBIN (test code = HGB) 14.8 gram/dL 13.0-17.5 N HEMATOCRIT (test code = HCT) 45.3 % 42.0-52.0 N MEAN CELL VOLUME (test code = MCV) 93.4 fL 80-98 N MEAN CELL HGB (test code = MCH) 30.5 picogram 27.0-33.0 N MEAN CELL HGB CONCETRATION (test code = MCHC) 32.7 gram/dL 33.0-36.0 L RED CELL DISTRIBUTION WIDTH (test code = RDW) 13.2 % 11.6-16.2 N RED CELL DISTRIBUTION WIDTH SD (test code = RDW-SD) 45.3 fL 37.0-51.0 N PLATELET COUNT (test code = PLT) 254 K/mm3 150-450 N MEAN PLATELET VOLUME (test c ode = MPV) 10.9 fL 6.7-11.0 N NEUTROPHIL % (test code = NT%) 42.1 % 39.0-69.0 N IMMATURE GRANULOCYTE % (test code = IG%) 0.1 % 0.0-5.0 N LYMPHOCYTE % (test code = LY%) 45.3 % 25.0-55.0 N MONOCYTE % (test code = MO%) 6.3 % 0.0-10.0 N EOSINOPHIL % (test code = EO%) 5.1 % 0.0-5.0 H BASOPHIL % (test code = BA%) 1.1 % 0.0-1.0 H NUCLEATED RBC % (test code = NRBC%) 0.0 % 0-0 N NEUTROPHIL # (test code = NT#) 3.38 K/mm3 1.8-7.7 N IMMATURE GRANULOCYTE # (test code = IG#) 0.01 x10 3/uL 0-0.03 N LYMPHOCYTE # (test code = LY#) 3.65 K/mm3 1.0-5.0 N MONOCYTE # (test code = MO#) 0.51 K/mm3 0-0.8 N EOSINOPHIL # (test code = EO#) 0.41 K/mm3 0.0-0.5 N BASOPHIL # (test code = BA#) 0.09 K/mm3 0.0-0.2 N NUCLEATED RBC # (test code = NRBC#) 0.00 K/mm3 0.0-0.1 N COMPREHENSIVE METABOLIC [id number] 11:13:00* Test Item Value Reference Range Interpretation Comme nts SODIUM (test code = NA) 139 mmol/L 136-145 N POTASSIUM (test code = K) 4.4 mmol/L 3.5-5.1 N CHLORIDE (test code = CL) 108.0 mmol/L 98-107 H CARBON DIOXIDE (test code = CO2) 30.0 mmol/L 21-32 N ANION GAP (test code = GAP) 5.4 10-20 L GLUCOSE (test code = GLU) 92 mg/dL 74-106 N BLOOD UREA NITROGEN (test code = BUN) 9 mg/dL 7-18 N GLOMERULAR FILTRATION RATE (test code = GFR) > 60 mL/min See_Comment The Glomerular Filtration Rate is a calculated parameterbased on serum Creatinine, patient age and sex. GFR valuesless than 60 mL/min/1.73 square meters are indicative ofChronic Kidney Disease. Values less than 15 mL/min/1.73square meters indicate Kidney failure. The calculation forGFR is based on the CKD-EPI (202) calculation. This formulais race indifferent and is the recommended formula for GFRby the National Kidney Foundation for Adults.The GFR will not calculate if the sex is unknown or if thepatient's age is <18 years. [Automated message] The system which generated this result transmitted reference range: >=60. The reference range was not used to interpret this result as normal/abnormal. CREATININE (test code = CREAT) 1.00 mg/dL 0.7-1.3 N BUN/CREATININE RATIO (test code = BUN/CREA) 9.5 10-20 L TOTAL PROTEIN (test code = PROT) 7.2 gram/dL 6.4-8.2 N ALBUMIN (test code = ALB) 4.3 g/dL 3.4-5.0 N GLOBULIN (test code = GLOB) 2.9 gram/dL 2.7-4.2 N ALBUMIN/GLOBULIN RATIO (test code = A/G) 1.5 0.75-1.50 N CALCIUM (test code = CA) 9.1 mg/dL 8.5-10.1 N BILIRUBIN TOTAL (test code = BILT) 0.70 mg/dL 0.0-1.0 N SGOT/AST (test code = AST) 16 IUnit/L 15-37 N SGPT/ALT (test code = ALT) 13 IUnit/L 12-78 N ALKALINE PHOSPHATASE TOTAL (test code = ALKP) 60 IUnit/L 45-117 N Note change in reference range due to change in reagent. CBC W/AUTO [id number] 10:55:00* Test Item Value Reference Range Interpretation Comme nts WHITE BLOOD CELL (test code = WBC) 6.3 K/mm3 4.5-12.5 N RED BLOOD CELL (test code = RBC) 4.58 mill/mm3 4.0-5.8 N HEMOGLOBIN (test code = HGB) 14.1 gram/dL 13.0-17.5 N HEMATOCRIT (test code = HCT) 42.6 % 42.0-52.0 N MEAN CELL VOLUME (test code = MCV) 93.0 fL 80-98 N MEAN CELL HGB (test code = MCH) 30.8 picogram 27.0-33.0 N MEAN CELL HGB CONCETRATION (test code = MCHC) 33.1 gram/dL 33.0-36.0 N RED CELL DISTRIBUTION WIDTH (test code = RDW) 13.3 % 11.6-16.2 N RED CELL DISTRIBUTION WIDTH SD (test code = RDW-SD) 45.2 fL 37.0-51.0 N PLATELET COUNT (test code = PLT) 236 K/mm3 150-450 N MEAN PLATELET VOLUME (test c ode = MPV) 10.3 fL 6.7-11.0 N NEUTROPHIL % (test code = NT%) 49.0 % 39.0-69.0 N IMMATURE GRANULOCYTE % (test code = IG%) 0.2 % 0.0-5.0 N LYMPHOCYTE % (test code = LY%) 37.1 % 25.0-55.0 N MONOCYTE % (test code = MO%) 6.6 % 0.0-10.0 N EOSINOPHIL % (test code = EO%) 6.1 % 0.0-5.0 H BASOPHIL % (test code = BA%) 1.0 % 0.0-1.0 N NUCLEATED RBC % (test code = NRBC%) 0.0 % 0-0 N NEUTROPHIL # (test code = NT#) 3.07 K/mm3 1.8-7.7 N IMMATURE GRANULOCYTE # (test code = IG#) 0.01 x10 3/uL 0-0.03 N LYMPHOCYTE # (test code = LY#) 2.32 K/mm3 1.0-5.0 N MONOCYTE # (test code = MO#) 0.41 K/mm3 0-0.8 N EOSINOPHIL # (test code = EO#) 0.38 K/mm3 0.0-0.5 N BASOPHIL # (test code = BA#) 0.06 K/mm3 0.0-0.2 N NUCLEATED RBC # (test code = NRBC#) 0.00 K/mm3 0.0-0.1 N URINALYSIS [id number] 22:49:00* Test Item Value Reference Range Interpretation Comme nts UA COLOR (test code = COLU) YELLOW YELLOW UA APPEARANCE (test code = APPU) Cloudy CLEAR A IS THE SAMPLE FROM ER OR L&D?Y IF THE ANSWER IS NO,PLEASE DOCUMENT TWO RN SIGNATURES HERE- by LUIS ALFREDO.SANA 10/31/22 2229 UA GLUCOSE DIPSTICK (test code = DGLUU) NEGATIVE mg/dL NEGATIVE UA BILIRUBIN DIPSTICK (test code = BILU) NEGATIVE mg/dL NEGATIVE UA KETONE DIPSTICK (test code = KETU) TRACE mg/dL NEGATIVE A UA SPECIFIC GRAVITY (test code = SGU) 1.042 1.001-1.035 UA BLOOD DIPSTICK (test code = JACOB) Negative mg/dL NEGATIVE UA PH DIPSTICK (test code = CANDI) 5.5 5.0-8.0 UA PROTEIN DIPSTICK (test code = PROU) 30 (1+) mg/dL NEGATIVE A UA UROBILINIOGEN DIPSTICK (test code = URO) 3.0 (1+) mg/dL NEGATIVE A UA NITRITE DIPSTICK (test code = LINDA) NEGATIVE NEGATIVE UA LEUKOCYTE ESTERASE W REFLEX (test code = LEUUR) NEGATIVE Sachin/uL NEGATIVE UA WBC (test code = WBCU) 0-5 per HPF 0-5 UA RBC (test code = RBCU) 0-2 #/HPF 0-5 UA EPITHELIAL CELLS (test code = EPIU) FEW per HPF FEW UA BACTERIA (test code = BACU) NONE SEEN #/HPF NONE UA CALCIUM OXALATE CRYSTALS (test code = CAOXU) FEW #/HPF NONE A UA MUCUS (test code = MUCU) FEW #/LPF FEW Urine Source? Clean CatchDRUGS OF ABUSE SCREEN [id number] 22:49:00* Test Item Value Reference Range Interpretation Comme nts URN COCAINE (test code = COCAURN) NEGATIVE See_Comment [Automated messa ge] The system which generated this result transmitted reference range: <300 ng/mL. The reference range was not used to interpret this result as normal/abnormal. URN CANNABINOIDS (test code = CANNABURN) POSITIVE See_Comment [Automated mes julio] The system which generated this result transmitted reference range: <50 ng/mL. The reference range was not used to interpret this result as normal/abnormal. URN AMPHETAMINE (test code = AMPHETURN) NEGATIVE See_Comment [Automated Revee julio] The system which generated this result transmitted reference range: <1000 ng/mL. The reference range was not used to interpret this result as normal/abnormal. URN BARBITURATE (test code = BARBITURN) NEGATIVE See_Comment [Automated Revee julio] The system which generated this result transmitted reference range: <200 ng/mL. The reference range was not used to interpret this result as normal/abnormal. URN BENZODIAZEPINE (test code = BENZOURN) NEGATIVE See_Comment [Automated mess age] The system which generated this result transmitted reference range: <200 ng/mL. The reference range was not used to interpret this result as normal/abnormal. URN OPIATES (test code = OPIATURN) POSITIVE See_Comment [Automated [employer]neta ge] The system which generated this result transmitted reference range: <300 ng/mL. The reference range was not used to interpret this result as normal/abnormal. URN PHENCYCLIDINE (PCP) (test code = PHENCURN) NEGATIVE See_Comment [Automate d message] The system which generated this result transmitted reference range: <25 ng/mL. The reference range was not used to interpret this result as normal/abnormal. URN METHADONE (test code = METHAURN) NEGATIVE See_Comment [Automated [employer]neta ge] The system which generated this result transmitted reference range: <300 ng/mL. The reference range was not used to interpret this result as normal/abnormal. Urine Source? Clean CatchBASIC METABOLIC [id number] 22:34:00* Test Item Value Reference Range Interpretation Comme nts SODIUM (test code = NA) 143 mmol/L 136-145 N POTASSIUM (test code = K) 4.0 mmol/L 3.5-5.1 N CHLORIDE (test code = CL) 107.0 mmol/L 98-107 N CARBON DIOXIDE (test code = CO2) 26.0 mmol/L 21-32 N ANION GAP (test code = GAP) 14.0 10-20 N GLUCOSE (test code = GLU) 94 mg/dL 74-106 N BLOOD UREA NITROGEN (test code = BUN) 9 mg/dL 7-18 N GLOMERULAR FILTRATION RATE (test code = GFR) > 60 mL/min See_Comment The Glomerular Filtration Rate is a calculated parameterbased on serum Creatinine, patient age and sex. GFR valuesless than 60 mL/min/1.73 square meters are indicative ofChronic Kidney Disease. Values less than 15 mL/min/1.73square meters indicate Kidney failure. The calculation forGFR is based on the CKD-EPI (2020) calculation. This formulais race indifferent and is the recommended formula for GFRby the National Kidney Foundation for Adults.The GFR will not calculate if the sex is unknown or if thepatient's age is <18 years. [Automated message] The system which generated this result transmitted reference range: >=60. The reference range was not used to interpret this result as normal/abnormal. CREATININE (test code = CREAT) 1.10 mg/dL 0.7-1.3 N BUN/CREATININE RATIO (test code = BUN/CREA) 8.1 10-20 L CALCIUM (test code = CA) 9.5 mg/dL 8.5-10.1 N HEPATIC FUNCTION [id number] 22:34:00* Test Item Value Reference Range Interpretation Comme nts TOTAL PROTEIN (test code = PROT) 6.9 gram/dL 6.4-8.2 N ALBUMIN (test code = ALB) 3.9 g/dL 3.4-5.0 N GLOBULIN (test code = GLOB) 3.0 gram/dL 2.7-4.2 N ALBUMIN/GLOBULIN RATIO (test code = A/G) 1.3 0.75-1.50 N BILIRUBIN TOTAL (test code = BILT) 1.20 mg/dL 0.0-1.0 H BILIRUBIN DIRECT (test code = BILD) 0.40 mg/dL 0.0-0.20 H SGOT/AST (test code = AST) 18 IUnit/L 15-37 N SGPT/ALT (test code = ALT) 19 IUnit/L 12-78 N ALKALINE PHOSPHATASE TOTAL (test code = ALKP) 58 IUnit/L 45-117 N Note change in reference range due to change in reagent. [id number] 22:34:00* Test Item Value Reference Range Interpretation Comme nts LIPASE (test code = LIP) 37 U/L 12-57 N CBC W/O [id number] 22:30:00* Test Item Value Reference Range Interpretation Comme nts WHITE BLOOD CELL (test code = WBC) 7.3 K/mm3 4.5-12.5 N RED BLOOD CELL (test code = RBC) 4.29 mill/mm3 4.0-5.8 N HEMOGLOBIN (test code = HGB) 13.5 gram/dL 13.0-17.5 N HEMATOCRIT (test code = HCT) 39.5 % 42.0-52.0 L MEAN CELL VOLUME (test code = MCV) 92.1 fL 80-98 N MEAN CELL HGB (test code = MCH) 31.5 picogram 27.0-33.0 N MEAN CELL HGB CONCETRATION (test code = MCHC) 34.2 gram/dL 33.0-36.0 N RED CELL DISTRIBUTION WIDTH (test code = RDW) 13.1 % 11.6-16.2 N PLATELET COUNT (test code = PLT) 311 K/mm3 150-450 MEAN PLATELET VOLUME (test c ode = MPV) 10.2 fL 6.7-11.0 N BASIC METABOLIC [id number] 21:57:00* Test Item Value Reference Range Interpretation Comme nts SODIUM (test code = NA) 139 mmol/L 136-145 N POTASSIUM (test code = K) 3.7 mmol/L 3.5-5.1 N CHLORIDE (test code = CL) 104.0 mmol/L 98-107 N CARBON DIOXIDE (test code = CO2) 29.0 mmol/L 21-32 N ANION GAP (test code = GAP) 9.7 10-20 L GLUCOSE (test code = GLU) 80 mg/dL 74-106 N BLOOD UREA NITROGEN (test code = BUN) 8 mg/dL 7-18 N GLOMERULAR FILTRATION RATE (test code = GFR) > 60 mL/min See_Comment The Glomerular Filtration Rate is a calculated parameterbased on serum Creatinine, patient age and sex. GFR valuesless than 60 mL/min/1.73 square meters are indicative ofChronic Kidney Disease. Values less than 15 mL/min/1.73square meters indicate Kidney failure. The calculation forGFR is based on the CKD-EPI (2020) calculation. This formulais race indifferent and is the recommended formula for GFRby the National Kidney Foundation for Adults.The GFR will not calculate if the sex is unknown or if thepatient's age is <18 years. [Automated message] The system which generated this result transmitted reference range: >=60. The reference range was not used to interpret this result as normal/abnormal. CREATININE (test code = CREAT) 1.00 mg/dL 0.7-1.3 N BUN/CREATININE RATIO (test code = BUN/CREA) 8.0 10-20 L CALCIUM (test code = CA) 9.2 mg/dL 8.5-10.1 N HEPATIC FUNCTION [id number] 21:57:00* Test Item Value Reference Range Interpretation Comme nts TOTAL PROTEIN (test code = PROT) 7.9 gram/dL 6.4-8.2 N ALBUMIN (test code = ALB) 4.4 g/dL 3.4-5.0 N GLOBULIN (test code = GLOB) 3.5 gram/dL 2.7-4.2 N ALBUMIN/GLOBULIN RATIO (test code = A/G) 1.3 0.75-1.50 N BILIRUBIN TOTAL (test code = BILT) 0.90 mg/dL 0.0-1.0 N BILIRUBIN DIRECT (test code = BILD) 0.30 mg/dL 0.0-0.20 H SGOT/AST (test code = AST) 19 IUnit/L 15-37 N SGPT/ALT (test code = ALT) 15 IUnit/L 12-78 N ALKALINE PHOSPHATASE TOTAL (test code = ALKP) 63 IUnit/L 45-117 N Note change in reference range due to change in reagent. [id number] 21:57:00* Test Item Value Reference Range Interpretation Comme nts LIPASE (test code = LIP) 39 U/L 12-57 N URINALYSIS [id number] 21:38:00* Test Item Value Reference Range Interpretation Comme nts UA COLOR (test code = COLU) YELLOW YELLOW UA APPEARANCE (test code = APPU) CLEAR CLEAR IS THE SAMPLE FROM ER OR L&D?Y IF THE ANSWER IS NO,PLEASE DOCUMENT TWO RN SIGNATURES HERE- by [id number] 10/30/22 3171 UA GLUCOSE DIPSTICK (test code = DGLUU) NEGATIVE mg/dL NEGATIVE UA BILIRUBIN DIPSTICK (test code = BILU) NEGATIVE mg/dL NEGATIVE UA KETONE DIPSTICK (test code = KETU) TRACE mg/dL NEGATIVE A UA SPECIFIC GRAVITY (test code = SGU) 1.041 1.001-1.035 UA BLOOD DIPSTICK (test code = JACOB) Negative mg/dL NEGATIVE UA PH DIPSTICK (test code = CANDI) 5.5 5.0-8.0 UA PROTEIN DIPSTICK (test code = PROU) 50 (1+) mg/dL NEGATIVE A UA UROBILINIOGEN DIPSTICK (test code = URO) 3.0 (1+) mg/dL NEGATIVE A UA NITRITE DIPSTICK (test code = LINDA) NEGATIVE NEGATIVE UA LEUKOCYTE ESTERASE W REFLEX (test code = LEUUR) NEGATIVE Sachin/uL NEGATIVE UA WBC (test code = WBCU) 0-5 per HPF 0-5 UA RBC (test code = RBCU) 3-5 #/HPF 0-5 UA EPITHELIAL CELLS (test code = EPIU) FEW per HPF FEW UA BACTERIA (test code = BACU) FEW #/HPF NONE A UA CALCIUM OXALATE CRYSTALS (test code = CAOXU) FEW #/HPF NONE A UA MUCUS (test code = MUCU) MANY #/LPF FEW A Urine Source? Clean CatchCBC W/O [id number] 21:34:00* Test Item Value Reference Range Interpretation Comme nts WHITE BLOOD CELL (test code = WBC) 7.0 K/mm3 4.5-12.5 N RED BLOOD CELL (test code = RBC) 4.57 mill/mm3 4.0-5.8 N HEMOGLOBIN (test code = HGB) 14.2 gram/dL 13.0-17.5 N HEMATOCRIT (test code = HCT) 42.4 % 42.0-52.0 N MEAN CELL VOLUME (test code = MCV) 92.8 fL 80-98 N MEAN CELL HGB (test code = MCH) 31.1 picogram 27.0-33.0 N MEAN CELL HGB CONCETRATION (test code = MCHC) 33.5 gram/dL 33.0-36.0 N RED CELL DISTRIBUTION WIDTH (test code = RDW) 13.0 % 11.6-16.2 N PLATELET COUNT (test code = PLT) 142 K/mm3 150-450 L MEAN PLATELET VOLUME (test c ode = MPV) 11.1 fL 6.7-11.0 H URINALYSIS [id number] 00:27:00* Test Item Value Reference Range Interpretation Comme nts UA COLOR (test code = COLU) YELLOW YELLOW UA APPEARANCE (test code = APPU) CLEAR CLEAR IS THE SAMPLE FROM ER OR L&D?Y IF THE ANSWER IS NO,PLEASE DOCUMENT TWO RN SIGNATURES HERE- by [id number] 10/10/22 0027 UA GLUCOSE DIPSTICK (test code = DGLUU) NEGATIVE mg/dL NEGATIVE UA BILIRUBIN DIPSTICK (test code = BILU) NEGATIVE mg/dL NEGATIVE UA KETONE DIPSTICK (test code = KETU) NEGATIVE mg/dL NEGATIVE UA SPECIFIC GRAVITY (test code = SGU) 1.030 1.001-1.035 UA BLOOD DIPSTICK (test code = JACOB) Negative mg/dL NEGATIVE UA PH DIPSTICK (test code = CANDI) 6.0 5.0-8.0 UA PROTEIN DIPSTICK (test code = PROU) 30 (1+) mg/dL NEGATIVE A UA UROBILINIOGEN DIPSTICK (test code = URO) Normal mg/dL NEGATIVE UA NITRITE DIPSTICK (test code = LINDA) NEGATIVE NEGATIVE UA LEUKOCYTE ESTERASE W REFLEX (test code = LEUUR) NEGATIVE Sachin/uL NEGATIVE UA WBC (test code = WBCU) 0-5 per HPF 0-5 UA RBC (test code = RBCU) 0-2 #/HPF 0-5 UA EPITHELIAL CELLS (test code = EPIU) Moderate (5-10/hpf) per HPF FEW A UA BACTERIA (test code = BACU) MODERATE #/HPF NONE A UA CALCIUM OXALATE CRYSTALS (test code = CAOXU) FEW #/HPF NONE A UA HYALINE CAST (test code = HYALU) 0-2 #/LPF 0-5 UA MUCUS (test code = MUCU) MANY #/LPF FEW A Urine Source? Clean CatchBASIC METABOLIC [id number] 00:23:00* Test Item Value Reference Range Interpretation Comme nts SODIUM (test code = NA) 140 mmol/L 136-145 N POTASSIUM (test code = K) 3.9 mmol/L 3.5-5.1 N CHLORIDE (test code = CL) 106.0 mmol/L 98-107 N CARBON DIOXIDE (test code = CO2) 24.0 mmol/L 21-32 N ANION GAP (test code = GAP) 13.9 10-20 N GLUCOSE (test code = GLU) 90 mg/dL 74-106 N BLOOD UREA NITROGEN (test code = BUN) < 5 mg/dL 7-18 L GLOMERULAR FILTRATION RATE (test code = GFR) > 60 mL/min See_Comment The Glomerular Filtration Rate is a calculated parameterbased on serum Creatinine, patient age and sex. GFR valuesless than 60 mL/min/1.73 square meters are indicative ofChronic Kidney Disease. Values less than 15 mL/min/1.73square meters indicate Kidney failure. The calculation forGFR is based on the CKD-EPI (2020) calculation. This formulais race indifferent and is the recommended formula for GFRby the National Kidney Foundation for Adults.The GFR will not calculate if the sex is unknown or if thepatient's age is <18 years. [Automated message] The system which generated this result transmitted reference range: >=60. The reference range was not used to interpret this result as normal/abnormal. CREATININE (test code = CREAT) 0.90 mg/dL 0.7-1.3 N BUN/CREATININE RATIO (test code = BUN/CREA) 5.6 10-20 L CALCIUM (test code = CA) 9.1 mg/dL 8.5-10.1 N HEPATIC FUNCTION [id number] 00:23:00* Test Item Value Reference Range Interpretation Comme nts TOTAL PROTEIN (test code = PROT) 7.8 gram/dL 6.4-8.2 N ALBUMIN (test code = ALB) 4.4 g/dL 3.4-5.0 N GLOBULIN (test code = GLOB) 3.4 gram/dL 2.7-4.2 N ALBUMIN/GLOBULIN RATIO (test code = A/G) 1.3 0.75-1.50 N BILIRUBIN TOTAL (test code = BILT) 1.40 mg/dL 0.0-1.0 H BILIRUBIN DIRECT (test code = BILD) 0.50 mg/dL 0.0-0.20 H SGOT/AST (test code = AST) 24 IUnit/L 15-37 N SGPT/ALT (test code = ALT) 16 IUnit/L 12-78 N ALKALINE PHOSPHATASE TOTAL (test code = ALKP) 60 IUnit/L 45-117 N Note change in reference range due to change in reagent. [id number] 00:23:00* Test Item Value Reference Range Interpretation Comme nts LIPASE (test code = LIP) 62 U/L 12-57 H [id number] 00:23:00* Test Item Value Reference Range Interpretation Comme nts TROPONIN-HS (test code = TROPI) <4.0 pg/mL 0-54 N 99th Percentile Upper Reference Limit (URL):Females: 34 pg/mLMales: 54 pg/mL In order to distinguish acute elevations of high sensitivitytroponin from other clinical conditions, the FourthUniversal Definition of Myocardial Infarction stressesclinical assessment and the demonstration of a rise and/orfall in serial troponin results above the URL. These results were obtained using [employer] TnIHreagent. Results from different methodologies should not becompared to one another as quantitative results and URLs mayvary by method. NOTE: A Positive Bias may occur for patients taking Biotin Supplements.NOTE: Current test methodology (pg/mL) units differ from prior test methodology (ng/mL) by a factor of 1000. CBC W/O [id number] 23:32:00* Test Item Value Reference Range Interpretation Comme nts WHITE BLOOD CELL (test code = WBC) 9.0 K/mm3 4.5-12.5 N RED BLOOD CELL (test code = RBC) 4.73 mill/mm3 4.0-5.8 N HEMOGLOBIN (test code = HGB) 14.8 gram/dL 13.0-17.5 N HEMATOCRIT (test code = HCT) 43.6 % 42.0-52.0 N MEAN CELL VOLUME (test code = MCV) 92.2 fL 80-98 N MEAN CELL HGB (test code = MCH) 31.3 picogram 27.0-33.0 N MEAN CELL HGB CONCETRATION (test code = MCHC) 33.9 gram/dL 33.0-36.0 N RED CELL DISTRIBUTION WIDTH (test code = RDW) 12.6 % 11.6-16.2 N PLATELET COUNT (test code = PLT) 306 K/mm3 150-450 N MEAN PLATELET VOLUME (test c ode = MPV) 10.2 fL 6.7-11.0 N UA RFLX MICR CULT IF [id number] 20:12:00* Test Item Value Reference Range Interpretation Comme nts UA COLOR (test code = COLU) VERONICA YEL/STRAW A UA APPEARANCE (test code = APPU) SL CLOUDY CLEAR UA GLUCOSE DIPSTICK (test co de = DGLUU) NEGATIVE NEGATIVE UA BILIRUBIN DIPSTICK (test code = BILU) NEGATIVE NEGATIVE UA KETONE DIPSTICK (test cod e = KETU) NEGATIVE NEGATIVE UA SPECIFIC GRAVITY (test co de = SGU) 1.036 1.005-1.030 H UA BLOOD DIPSTICK (test code = JACOB) NEGATIVE NEGATIVE UA PH DIPSTICK (test code = CANDI) 5.0 5.0-7.0 N UA PROTEIN DIPSTICK (test co de = PROU) NEGATIVE NEGATIVE UA UROBILINIOGEN DIPSTICK (test code = URO) 4.0 mg/dL 0.2-1.0 A UA NITRITE DIPSTICK (test co de = LINDA) NEGATIVE NEGATIVE UA LEUKOCYTE ESTERASE DIPSTI CK (test code = LEUU) NEGATIVE NEGATIVE UA WBC (test code = WBCU) 0-3 WBC/HPF 0-3 UA RBC (test code = RBCU) 0-3 RBC/HPF 0-3 UA WBC NO REFLEX (test code = WBCUCL) 0-3 WBC/HPF 0-3 UA BACTERIA (test code = BACU) NONE SEEN /HPF NONE SEEN UA SQUAMOUS CELLS (test code = SQU) 0-5 /HPF NONE SEEN UA CALCIUM OXALATE CRYSTALS (test code = CAOXU) 1+ /HPF NONE SEEN A UA MUCUS (test code = MUCU) 4+ /LPF NONE SEEN A Indication for culture: Suprapubic PainSpecimen Description: CLEAN CATCHCBC W/AUTO [id number] 19:27:00* Test Item Value Reference Range Interpretation Comme nts WHITE BLOOD CELL (test code = WBC) 7.6 x10 3/uL 4.5-11.0 N RED BLOOD CELL (test code = RBC) 4.01 x10 6/uL 4.00-5.60 N HEMOGLOBIN (test code = HGB) 12.7 g/dL 12.5-16.9 N HEMATOCRIT (test code = HCT) 36.6 % 37.5-50.7 L MEAN CELL VOLUME (test code = MCV) 91.3 fL 81.0-99.0 N MEAN CELL HGB (test code = MCH) 31.7 pg 27.0-33.0 N MEAN CELL HGB CONCETRATION (test code = MCHC) 34.7 g/dL 33.0-37.0 N RED CELL DISTRIBUTION WIDTH CV (test code = RDW) 12.2 % 11.5-14.5 N RED CELL DISTRIBUTION WIDTH SD (test code = RDW-SD) 41.0 fL 37.0-54.0 N PLATELET COUNT (test code = PLT) 307 x10 3/uL 150-400 N MEAN PLATELET VOLUME (test c ode = MPV) 10.3 fL 7.0-9.0 H NEUTROPHIL % (test code = NT%) 48.6 % 56.0-77.0 L IMMATURE GRANULOCYTE % (test code = IG%) 0.1 % 0.0-2.0 N LYMPHOCYTE % (test code = LY%) 39.0 % 14.0-32.0 H MONOCYTE % (test code = MO%) 8.9 % 4.8-9.0 N EOSINOPHIL % (test code = EO%) 2.5 % 0.3-3.7 N BASOPHIL % (test code = BA%) 0.9 % 0.0-2.0 N NUCLEATED RBC % (test code = NRBC%) 0.0 % 0-0 N NEUTROPHIL # (test code = NT#) 3.69 x10 3/uL 2.0-7.6 N IMMATURE GRANULOCYTE # (test code = IG#) 0.01 x10 3/uL 0.00-0.03 N LYMPHOCYTE # (test code = LY#) 2.97 x10 3/uL 1.0-3.8 N MONOCYTE # (test code = MO#) 0.68 x10 3/uL 0.1-0.8 N EOSINOPHIL # (test code = EO#) 0.19 x10 3/uL 0.0-0.2 N BASOPHIL # (test code = BA#) 0.07 x10 3/uL 0.0-0.2 N NUCLEATED RBC # (test code = NRBC#) 0.00 x10 3/uL 0.0-0.1 N MANUAL DIFF REQUIRED (test c ode = MDIFF) NO BASIC METABOLIC [id number] 19:19:00* Test Item Value Reference Range Interpretation Comme nts SODIUM (test code = NA) 140 mEq/L 134-147 N POTASSIUM (test code = K) 3.4 mEq/L 3.4-5.0 N CHLORIDE (test code = CL) 108 mEq/L 100-108 N CARBON DIOXIDE (test code = CO2) 27 mEq/l 21-33 N ANION GAP (test code = GAP) 8 0-20 N GLUCOSE (test code = GLU) 108 mg/dL 70-110 N BLOOD UREA NITROGEN (test code = BUN) 6 mg/dL 7-18 L GLOMERULAR FILTRATION RATE (test code = GFR) 99.4 105-110 L The Glomerular Filtration Rate is a calculated parameterbased on serum Creatinine, patient age and sex. GFR valuesless than 60 mL/min/1.73 square meters are indicative ofChronic Kidney Disease. Values less than 15 mL/min/1.73square meters indicate Kidney failure. The calculation forGFR is based on the CKD-EPI (2020) calculation. This formulais race indifferent and is the recommended formula for GFRby the National Kidney Foundation for Adults.The GFR will not calculate if the sex is unknown or if thepatient's age is <18 years. CREATININE (test code = CREAT) 1.0 mg/dL 0.6-1.3 N CALCIUM (test code = CA) 9.1 mg/dL 8.0-10.5 N HEPATIC FUNCTION [id number] 19:19:00* Test Item Value Reference Range Interpretation Comme nts TOTAL PROTEIN (test code = PROT) 7.3 g/dL 6.4-8.2 N ALBUMIN (test code = ALB) 4.30 g/dL 3.4-5.0 N BILIRUBIN TOTAL (test code = BILT) 1.50 mg/dL 0.0-1.0 H BILIRUBIN DIRECT (test code = BILD) 0.50 MG/DL 0.0-0.30 H BILIRUBIN INDIRECT (test cod e = BILIND) 1.00 MG/DL SGOT/AST (test code = AST) 19 IUnit/L 15-37 N SGPT/ALT (test code = ALT) 12 IUnit/L 30-65 L ALKALINE PHOSPHATASE TOTAL ( test code = ALKP) 48 IUnit/L 20-125 N [id number] 19:19:00* Test Item Value Reference Range Interpretation Comme nts LIPASE (test code = LIP) 176 U/L 13-57 H - CT ABD PELVIS [id number] 00:00:00 [facility] 1985 Sex: M Name: TANNER BENDER [facility] : 1985 Age/S: 36 / M [address] [place] [address] Unit #: [id number] Loc: [place] [address] Phys: Severiano Newberry [facility] Acct: [id number] Dis Date: Status: REG ER PHONE #: [phone] Exam Date: 07/13/20222003 FAX #: [phone] Reason: abd pain, elevated lipase EXAMS: CPT CODE: [id number] CT ABD PELVIS W/CONT 31469 PROCEDURE INFORMATION: Exam: CT Abdomen And Pelvis With Contrast Exam date and time: 07/13/2022 7:56 PM Age: 36 years old Clinical indication: Other: Abd pain, elevated lipase TECHNIQUE: Imaging protocol: Computed tomography of the abdomen and pelvis with contrast. Radiation optimization: All CT scans at this facility use at least one of thesedose optimization techniques: automated exposure control; mA and/or kV adjustment per patient size (includes targeted exams where dose is matched to clinical indication); or iterative reconstruction.Contrast material: [id number]; Contrast volume: 100 ml; Contrast route: INTRAVENOUS (IV); REPORTING DATA: Count of CT and Cardiac NM exams in prior 12 months: This patient has received [address] and 0 known cardiac nuclear medicine studies in the 12 months prior to the current study. COMPARISON: CT ABD PELVIS W/CONT 12/24/2021 6:40 PM FINDINGS: Liver: Normal. No mass. Gallbladder and bile ducts: Surgically absent. No ductal dilation. Pancreas: Normal. No ductal dilation. Spleen: Normal. No splenomegaly. Adrenal glands: Normal. No mass. Kidneys and ureters: Normal. No hydronephrosis. Stomach and bowel: Unremarkable. No obstruction. No mucosal thickening. Appendix: No evidence of appendicitis. Intraperitoneal space: Unremarkable. No free air. No significant fluid collection. Vasculature: Unremarkable. No abdominal aortic aneurysm. Lymph nodes: Unremarkable. No enlarged lymph nodes. Urinary bladder: Unremarkable as visualized. Reproductive: Unremarkable as visualized. Bones/joints: Unremarkable. No acute fracture. Soft tissues: Unremarkable. IMPRESSION: No acute findings. Pancreas has normal appearance. PAGE 1 Signed Report (CONTINUED) Name: TANNER BENDER [facility] : 1985 Age/S: 36 / M [address] [place] [address] Unit #: [id number] Loc: [place] [address] Phys: Severiano Newberry Acct: [id number] Dis Date: Status: REG ER PHONE #: [phone] Exam Date: 07/13/2022 2004FAX #: [phone] Reason: abd pain, elevated lipase EXAMS: CPT CODE: [id number] CT ABD PELVIS W/CON T 19596 (Continued) at 2119 Reported and signed by: Min Max M.D. CC: Severiano Newberry Technologist:Yuan Scott RT(R)(CT) CTDI: DLP: Trnscb Date/Time: 07/13/2022 (2119) [email or web address] Orig Print D/T: S: 07/13/2022(2119) PAGE 2 Signed ReportCBC W/AUTO [id number] 18:36:00* Test Item Value Reference Range Interpretation Comme nts WHITE BLOOD CELL (test code = WBC) 6.0 x10 3/uL 4.5-11.0 N RED BLOOD CELL (test code = RBC) 4.18 x10 6/uL 4.00-5.60 N HEMOGLOBIN (test code = HGB) 13.2 g/dL 12.5-16.9 N HEMATOCRIT (test code = HCT) 39.0 % 37.5-50.7 N MEAN CELL VOLUME (test code = MCV) 93.3 fL 81.0-99.0 N MEAN CELL HGB (test code = MCH) 31.6 pg 27.0-33.0 N MEAN CELL HGB CONCETRATION (test code = MCHC) 33.8 g/dL 33.0-37.0 N RED CELL DISTRIBUTION WIDTH CV (test code = RDW) 12.8 % 11.5-14.5 N RED CELL DISTRIBUTION WIDTH SD (test code = RDW-SD) 44.0 fL 37.0-54.0 N PLATELET COUNT (test code = PLT) 301 x10 3/uL 150-400 N MEAN PLATELET VOLUME (test c ode = MPV) 10.4 fL 7.0-9.0 H NEUTROPHIL % (test code = NT%) 52.1 % 56.0-77.0 L IMMATURE GRANULOCYTE % (test code = IG%) 0.5 % 0.0-2.0 N LYMPHOCYTE % (test code = LY%) 35.4 % 14.0-32.0 H MONOCYTE % (test code = MO%) 7.5 % 4.8-9.0 N EOSINOPHIL % (test code = EO%) 3.5 % 0.3-3.7 N BASOPHIL % (test code = BA%) 1.0 % 0.0-2.0 N NUCLEATED RBC % (test code = NRBC%) 0.0 % 0-0 N NEUTROPHIL # (test code = NT#) 3.13 x10 3/uL 2.0-7.6 N IMMATURE GRANULOCYTE # (test code = IG#) 0.03 x10 3/uL 0.00-0.03 N LYMPHOCYTE # (test code = LY#) 2.13 x10 3/uL 1.0-3.8 N MONOCYTE # (test code = MO#) 0.45 x10 3/uL 0.1-0.8 N EOSINOPHIL # (test code = EO#) 0.21 x10 3/uL 0.0-0.2 H BASOPHIL # (test code = BA#) 0.06 x10 3/uL 0.0-0.2 N NUCLEATED RBC # (test code = NRBC#) 0.00 x10 3/uL 0.0-0.1 N MANUAL DIFF REQUIRED (test c ode = MDIFF) NO BASIC METABOLIC [id number] 18:33:00* Test Item Value Reference Range Interpretation Comme nts SODIUM (test code = NA) 138 mEq/L 134-147 N POTASSIUM (test code = K) 3.7 mEq/L 3.4-5.0 N CHLORIDE (test code = CL) 103 mEq/L 100-108 N CARBON DIOXIDE (test code = CO2) 28 mEq/l 21-33 N ANION GAP (test code = GAP) 10 0-20 N GLUCOSE (test code = GLU) 88 mg/dL 70-110 N BLOOD UREA NITROGEN (test code = BUN) 7 mg/dL 7-18 N GLOMERULAR FILTRATION RATE (test code = GFR) 95.5 105-110 L Units of measure = ml/min/1.73 m2 CREATININE (test code = CREAT) 0.9 mg/dL 0.6-1.3 N CALCIUM (test code = CA) 8.8 mg/dL 8.0-10.5 N HEPATIC FUNCTION [id number] 18:33:00* Test Item Value Reference Range Interpretation Comme nts TOTAL PROTEIN (test code = PROT) 7.3 g/dL 6.4-8.2 N ALBUMIN (test code = ALB) 4.40 g/dL 3.4-5.0 N BILIRUBIN TOTAL (test code = BILT) 0.80 mg/dL 0.0-1.0 N BILIRUBIN DIRECT (test code = BILD) 0.30 MG/DL 0.0-0.30 N BILIRUBIN INDIRECT (test cod e = BILIND) 0.50 MG/DL SGOT/AST (test code = AST) 23 IUnit/L 15-37 N SGPT/ALT (test code = ALT) 17 IUnit/L 30-65 L ALKALINE PHOSPHATASE TOTAL ( test code = ALKP) 52 IUnit/L 20-125 N [id number] 18:33:00* Test Item Value Reference Range Interpretation Comme nts LIPASE (test code = LIP) 69 U/L 13-57 H UA RFLX MICR CULT IF [id number] 18:23:00* Test Item Value Reference Range Interpretation Comme nts UA COLOR (test code = COLU) STRAW YEL/STRAW UA APPEARANCE (test code = APPU) CLEAR CLEAR UA GLUCOSE DIPSTICK (test co de = DGLUU) NEGATIVE NEGATIVE UA BILIRUBIN DIPSTICK (test code = BILU) NEGATIVE NEGATIVE UA KETONE DIPSTICK (test cod e = KETU) NEGATIVE NEGATIVE UA SPECIFIC GRAVITY (test co de = SGU) 1.005 1.005-1.030 N UA BLOOD DIPSTICK (test code = JACOB) NEGATIVE NEGATIVE UA PH DIPSTICK (test code = CANDI) 7.0 5.0-7.0 N UA PROTEIN DIPSTICK (test co de = PROU) NEGATIVE NEGATIVE UA UROBILINIOGEN DIPSTICK (test code = URO) 0.2 mg/dL 0.2-1.0 UA NITRITE DIPSTICK (test co de = LINDA) NEGATIVE NEGATIVE UA LEUKOCYTE ESTERASE DIPSTI CK (test code = LEUU) NEGATIVE NEGATIVE UA WBC (test code = WBCU) 0-3 WBC/HPF 0-3 UA RBC (test code = RBCU) 0-3 RBC/HPF 0-3 UA WBC NO REFLEX (test code = WBCUCL) 0-3 WBC/HPF 0-3 UA BACTERIA (test code = BACU) NONE SEEN /HPF NONE SEEN UA SQUAMOUS CELLS (test code = SQU) NONE SEEN /HPF NONE SEEN UA MUCUS (test code = MUCU) TRACE /LPF NONE SEEN Indication for culture: RiskForSepsis-no oth srcSpecimen Description: CLEAN CATCH- CT ABD PELVIS W/[id number] 00:00:00 [facility] 1985 Sex: M Name: TANNER BENDER [facility] : 1985 Age/S: 35 / M [address] [place] [address] Unit #: [id number] Loc: [place] [address] Phys: Giovanni Victoria [employer] Acct: [id number] Dis Date: Status: REG ER PHONE #: [phone] Exam Date: 12/24/2021 1847 FAX #: [phone] Reason: Abd pain, hx of pancreatitis EXAMS: CPT CODE: [id number] CT ABD PELVIS W/CONT 52653 PROCEDURE INFORMATION: Exam: CT Abdomen And Pelvis With Contrast Exam date and time: 12/24/2021 6:40 PM Age: 35 years old Clinical indication: Abdominal pain; Generalized; Additional info: Abd pain, HX of pancreatitis TECHNIQUE: Imaging protocol: Computed tomography of the abdomen and pelvis with contrast. Radiation optimization: All CT scans at this facility use at least one of these dose optimization techniques: automated exposure control; mA and/or kV adjustment per patient size (includes targeted exams where dose is matched to clinicalindication); or iterative reconstruction. Contrast material: ISO 300; Contrast volume: 100 ml; Contrast route: INTRAVENOUS (IV); COMPARISON: CT ABD PELVIS W/CONT 05/03/2020 1:42 PM FINDINGS: Liver: The liver parenchyma is normal in appearane without masses or intahepatic biliary ductal dilatation. The portal vein is norml in caliber. Gallbladder and bile ducts: Gallbladder is surgically absent. Pancreas: Normal. No ductal dilation. Spleen: Normal. No splenomegaly. Adrenal glands: Normal. No mass. Kidneys and ureters: The kidneys demonstrate no renal or ureteral calculi, nor evidence of hydronephrosis or hydroureter. There is no gross evidence of masses. Stomach and bowel: There is fluid-filled hyperemic small-bowel loops throughout the abdomen. The stomach is unremarkable. Colon is unremarkable. Appendix: The appendix is not seen suggesting prior appendectomy. Intraperitoneal space: Unremarkable. No free air. No significant fluid collection. Vasculature: Unremarkable. No abdominal aortic aneurysm. Lymph nodes: No evidence of lymphadenopathy. Urinary bladder: Unremarkable as visualized. Reproductive: Unremarkable as visualized. Bones/joints: There is mild superior endplate compression deformities T11, T12, and L1, if there is concern for acute fracture further evaluation with MRI may be obtained. Soft tissues: Unremarkable. No evidence of soft tissue masses or hernias. IMPRESSION: PAGE 1 Signed Report (CONTINUED) Name: TANNER BENDER [facility] : 1985 Age/S: 35 /M [address] Unit #: [id number] Loc: [place] [address] Phys: Giovanni Victoria NP Acct: [id number] Dis Date: Status: REG ER PHONE #: [phone] Exam Date: 12/24/2021 1847 FAX #: [phone] Reason: Abd pain, hx of pancreatitis EXAMS: CPT CODE: [id number] CT ABD PELVIS W/CONT 52929 (Continued) 1. Enteritis. 2. Mild compression deformities of the superior endplate of T11 through L1. If there is concern for acute fracture, further evaluation with MRI may be obtained. at 1952 Reported and signed by: Luciano Damon M.D CC: Giovanni Victoria NP Technologist:RT Popeye(R)(CT) CTDI: DLP: Trnscb Date/Time: 12/24/2021 (1952) [email or web address] Orig Print D/T: S: 12/24/2021 (1952) PAGE 2 Signed ReportSTREPTOCOCCUS PCR [id number] 08:15:00* Test Item Value Reference Range Interpretation Comme nts STREPTOCOCCUS DYSGALACTIAE (test code = STREPGC) POSITIVE FOR G/C NEGATIVE STREPA MOLECULAR (test code = STREPAMOL) NEGATIVE FOR GRP A NEGATIVE - XR CHEST 1 [id number] 02:33:[address] [facility]Name: TANNER BENDERL : 1985 Sex: M FAX: Portia Marrero NP [place]: [address] St: REG Name: TANNER BENDER [facility] : 1985 Age/S: 35/M [address] Unit #: [id number] Loc: [place] [address] Phys: Portia Marrero NP Acct: [id number] Dis Date: Status: REG ER PHONE #: [phone] Exam Date: 03/05/2021199 FAX #: [phone] Reason: cough EXAMS: CPT CODE: [id number] XR CHEST 1 V 05409 EXAM: - XR CHEST 1 V LOCATION: [id number]: cough COMPARISON: 05/03/2020 FINDINGS: Single view of the chest. No indwelling lines or tubes. No pneumothorax. The lungs are clear without significant effusions. The mediastinal contours are unremarkable/unchanged. No acute osseous findings are present. IMPRESSION: No acute cardiopulmonaryabnormality. at 0233 Reportedand signed by: William Macias M.D. CC: Portia Marrero NP Technologist: Alexus Bond Trnscrd Date/Time/By: 03/05/2021 (0233) : By: [email or web address] Orig Print D/T: S: 03/05/2021 (0236) PAGE 1 Signed Report COVID 19 INHOUSE [id number] 02:08:00* Test Item Value Reference Range Interpretation Comme nts COVID 19 INHOUSE AG (test co de = [id number]) NEGATIVE NEGATIVE BASIC METABOLIC [id number] 14:45:00* Test Item Value Reference Range Interpretation Comme nts SODIUM (test code = NA) 138 mmol/L 136-145 N POTASSIUM (test code = K) 3.8 mmol/L 3.5-5.1 N CHLORIDE (test code = CL) 106.0 mmol/L 98-107 N CARBON DIOXIDE (test code = CO2) 29.0 mmol/L 21-32 N ANION GAP (test code = GAP) 6.8 10-20 L GLUCOSE (test code = GLU) 107 mg/dL 74-106 H BLOOD UREA NITROGEN (test code = BUN) 6 mg/dL 7-18 L GLOMERULAR FILTRATION RATE (test code = GFR) > 60 mL/min See_Comment Estimated GFR by using Modified MDRD formula.Chronic kidney disease is defined as either kidney damageor GFR <60 mL/min/1.73 m2 for >3 months. [Automated message] The system which generated this result transmitted reference range: >=60. The reference range was not used to interpret this result as normal/abnormal. CREATININE (test code = CREAT) 0.90 mg/dL 0.7-1.3 N BUN/CREATININE RATIO (test code = BUN/CREA) 6.5 10-20 L CALCIUM (test code = CA) 9.2 mg/dL 8.5-10.1 N HEPATIC FUNCTION [id number] 14:45:00* Test Item Value Reference Range Interpretation Comme nts TOTAL PROTEIN (test code = PROT) 7.1 gram/dL 6.4-8.2 N ALBUMIN (test code = ALB) 3.9 g/dL 3.4-5.0 N GLOBULIN (test code = GLOB) 3.2 gram/dL 2.7-4.2 N ALBUMIN/GLOBULIN RATIO (test code = A/G) 1.2 0.75-1.50 N BILIRUBIN TOTAL (test code = BILT) 0.50 mg/dL 0.0-1.0 N BILIRUBIN DIRECT (test code = BILD) 0.20 mg/dL 0.0-0.20 N SGOT/AST (test code = AST) 16 IUnit/L 15-37 N SGPT/ALT (test code = ALT) 19 IUnit/L 12-78 N ALKALINE PHOSPHATASE TOTAL (test code = ALKP) 62 IUnit/L 45-117 N Note change in reference range due to change in reagent. [id number] 14:45:00* Test Item Value Reference Range Interpretation Comme nts LIPASE (test code = LIP) 171 U/L 12-57 H CBC W/O [id number] 14:23:00* Test Item Value Reference Range Interpretation Comme nts WHITE BLOOD CELL (test code = WBC) 6.0 K/mm3 4.5-12.5 N RED BLOOD CELL (test code = RBC) 4.64 mill/mm3 4.0-5.8 N HEMOGLOBIN (test code = HGB) 14.5 gram/dL 13.0-17.5 N HEMATOCRIT (test code = HCT) 43.4 % 42.0-52.0 N MEAN CELL VOLUME (test code = MCV) 93.5 fL 80-98 N MEAN CELL HGB (test code = MCH) 31.3 picogram 27.0-33.0 N MEAN CELL HGB CONCETRATION (test code = MCHC) 33.4 gram/dL 33.0-36.0 N RED CELL DISTRIBUTION WIDTH (test code = RDW) 12.7 % 11.6-16.2 N PLATELET COUNT (test code = PLT) 326 K/mm3 150-450 N MEAN PLATELET VOLUME (test c ode = MPV) 10.4 fL 6.7-11.0 N URINALYSIS [id number] 14:12:00* Test Item Value Reference Range Interpretation Comme nts UA COLOR (test code = COLU) YELLOW YELLOW UA APPEARANCE (test code = APPU) CLEAR CLEAR UA GLUCOSE DIPSTICK (test code = DGLUU) NEGATIVE mg/dL NEGATIVE UA BILIRUBIN DIPSTICK (test code = BILU) NEGATIVE NEGATIVE UA KETONE DIPSTICK (test code = KETU) NEGATIVE mg/dL NEGATIVE UA SPECIFIC GRAVITY (test code = SGU) 1.025 1.001-1.035 UA BLOOD DIPSTICK (test code = JACOB) NEGATIVE NEGATIVE UA PH DIPSTICK (test code = CANDI) 6.0 5.0-8.0 UA PROTEIN DIPSTICK (test code = PROU) NEGATIVE mg/dL Neg-15 UA UROBILINIOGEN DIPSTICK (test code = URO) 0.2 mg/dL 0.0-0.2 UA NITRITE DIPSTICK (test code = LINDA) NEGATIVE NEGATIVE UA LEUKOCYTE ESTERASE W REFLEX (test code = LEUUR) NEGATIVE NEGATIVE UA WBC (test code = WBCU) 0-5 per HPF 0-5 UA RBC (test code = RBCU) 0-2 per HPF 0-5 UA EPITHELIAL CELLS (test code = EPIU) Rare (0-1/hpf) per HPF Few UA BACTERIA (test code = BACU) NONE SEEN per HPF NONE Urine Source? Clean CatchBASIC METABOLIC [id number] 14:09:00* Test Item Value Reference Range Interpretation Comme nts SODIUM (test code = NA) 137 mmol/L 136-145 N POTASSIUM (test code = K) 4.5 mmol/L 3.5-5.1 N CHLORIDE (test code = CL) 106.0 mmol/L 98-107 N CARBON DIOXIDE (test code = CO2) 26.0 mmol/L 21-32 N ANION GAP (test code = GAP) 9.5 10-20 L GLUCOSE (test code = GLU) 91 mg/dL 74-106 N BLOOD UREA NITROGEN (test code = BUN) 6 mg/dL 7-18 L GLOMERULAR FILTRATION RATE (test code = GFR) > 60 mL/min See_Comment Estimated GFR by using Modified MDRD formula.Chronic kidney disease is defined as either kidney damageor GFR <60 mL/min/1.73 m2 for >3 months. [Automated message] The system which generated this result transmitted reference range: >=60. The reference range was not used to interpret this result as normal/abnormal. CREATININE (test code = CREAT) 1.00 mg/dL 0.7-1.3 N BUN/CREATININE RATIO (test code = BUN/CREA) 5.9 10-20 L CALCIUM (test code = CA) 9.4 mg/dL 8.5-10.1 N HEPATIC FUNCTION [id number] 14:09:00* Test Item Value Reference Range Interpretation Comme nts TOTAL PROTEIN (test code = PROT) 8.0 gram/dL 6.4-8.2 N ALBUMIN (test code = ALB) 4.7 g/dL 3.4-5.0 N GLOBULIN (test code = GLOB) 3.3 gram/dL 2.7-4.2 N ALBUMIN/GLOBULIN RATIO (test code = A/G) 1.4 0.75-1.50 N BILIRUBIN TOTAL (test code = BILT) 1.00 mg/dL 0.0-1.0 N BILIRUBIN DIRECT (test code = BILD) 0.30 mg/dL 0.0-0.20 H SGOT/AST (test code = AST) 22 IUnit/L 15-37 N SGPT/ALT (test code = ALT) 18 IUnit/L 12-78 N ALKALINE PHOSPHATASE TOTAL (test code = ALKP) 68 IUnit/L 45-117 N Note change in reference range due to change in reagent. [id number] 14:09:00* Test Item Value Reference Range Interpretation Comme nts LIPASE (test code = LIP) 48 U/L 12-57 N URINALYSIS [id number] 14:03:00* Test Item Value Reference Range Interpretation Comme nts UA COLOR (test code = COLU) YELLOW YELLOW UA APPEARANCE (test code = APPU) CLEAR CLEAR UA GLUCOSE DIPSTICK (test co de = DGLUU) NEGATIVE mg/dL NEGATIVE UA BILIRUBIN DIPSTICK (test code = BILU) NEGATIVE NEGATIVE UA KETONE DIPSTICK (test cod e = KETU) NEGATIVE mg/dL NEGATIVE UA SPECIFIC GRAVITY (test co de = SGU) 1.025 1.001-1.035 UA BLOOD DIPSTICK (test code = JACOB) NEGATIVE NEGATIVE UA PH DIPSTICK (test code = CANDI) 6.0 5.0-8.0 UA PROTEIN DIPSTICK (test co de = PROU) NEGATIVE mg/dL Neg-15 UA UROBILINIOGEN DIPSTICK (test code = URO) 0.2 mg/dL 0.0-0.2 UA NITRITE DIPSTICK (test co de = LINDA) NEGATIVE NEGATIVE UA LEUKOCYTE ESTERASE W REFL EX (test code = LEUUR) NEGATIVE NEGATIVE UA WBC (test code = WBCU) per HPF 0-5 UA RBC (test code = RBCU) per HPF 0-5 UA EPITHELIAL CELLS (test co de = EPIU) per HPF Few UA BACTERIA (test code = BACU) per HPF NONE Urine Source? Clean CatchCBC W/O [id number] 13:47:00* Test Item Value Reference Range Interpretation Comme nts WHITE BLOOD CELL (test code = WBC) 7.5 K/mm3 4.5-12.5 N RED BLOOD CELL (test code = RBC) 5.06 mill/mm3 4.0-5.8 N HEMOGLOBIN (test code = HGB) 15.6 gram/dL 13.0-17.5 N HEMATOCRIT (test code = HCT) 47.1 % 42.0-52.0 N MEAN CELL VOLUME (test code = MCV) 93.1 fL 80-98 N MEAN CELL HGB (test code = MCH) 30.8 picogram 27.0-33.0 N MEAN CELL HGB CONCETRATION (test code = MCHC) 33.1 gram/dL 33.0-36.0 N RED CELL DISTRIBUTION WIDTH (test code = RDW) 12.7 % 11.6-16.2 N PLATELET COUNT (test code = PLT) 296 K/mm3 150-450 N MEAN PLATELET VOLUME (test c ode = MPV) 10.4 fL 6.7-11.0 N CBC W/O [id number] 21:23:00* Test Item Value Reference Range Interpretation Comme nts WHITE BLOOD CELL (test code = WBC) 9.5 K/mm3 4.5-12.5 N RED BLOOD CELL (test code = RBC) 4.72 mill/mm3 4.0-5.8 N HEMOGLOBIN (test code = HGB) 14.7 gram/dL 13.0-17.5 N HEMATOCRIT (test code = HCT) 44.1 % 42.0-52.0 N MEAN CELL VOLUME (test code = MCV) 93.4 fL 80-98 N MEAN CELL HGB (test code = MCH) 31.1 picogram 27.0-33.0 N MEAN CELL HGB CONCETRATION (test code = MCHC) 33.3 gram/dL 33.0-36.0 N RED CELL DISTRIBUTION WIDTH (test code = RDW) 12.7 % 11.6-16.2 N PLATELET COUNT (test code = PLT) 295 K/mm3 150-450 N MEAN PLATELET VOLUME (test c ode = MPV) 11.0 fL 6.7-11.0 N BASIC METABOLIC [id number] 21:21:00* Test Item Value Reference Range Interpretation Comme nts SODIUM (test code = NA) 136 mmol/L 136-145 N POTASSIUM (test code = K) 4.2 mmol/L 3.5-5.1 N CHLORIDE (test code = CL) 105.0 mmol/L 98-107 N CARBON DIOXIDE (test code = CO2) 26.0 mmol/L 21-32 N ANION GAP (test code = GAP) 9.2 10-20 L GLUCOSE (test code = GLU) 99 mg/dL 74-106 N BLOOD UREA NITROGEN (test code = BUN) 10 mg/dL 7-18 N GLOMERULAR FILTRATION RATE (test code = GFR) > 60 mL/min See_Comment Estimated GFR by using Modified MDRD formula.Chronic kidney disease is defined as either kidney damageor GFR <60 mL/min/1.73 m2 for >3 months. [Automated message] The system which generated this result transmitted reference range: >=60. The reference range was not used to interpret this result as normal/abnormal. CREATININE (test code = CREAT) 1.00 mg/dL 0.7-1.3 N BUN/CREATININE RATIO (test code = BUN/CREA) 9.6 10-20 L CALCIUM (test code = CA) 9.6 mg/dL 8.5-10.1 N HEPATIC FUNCTION [id number] 21:21:00* Test Item Value Reference Range Interpretation Comme nts TOTAL PROTEIN (test code = PROT) 7.3 gram/dL 6.4-8.2 N ALBUMIN (test code = ALB) 4.4 g/dL 3.4-5.0 N GLOBULIN (test code = GLOB) 2.9 gram/dL 2.7-4.2 N ALBUMIN/GLOBULIN RATIO (test code = A/G) 1.5 0.75-1.50 N BILIRUBIN TOTAL (test code = BILT) 1.00 mg/dL 0.0-1.0 N BILIRUBIN DIRECT (test code = BILD) 0.30 mg/dL 0.0-0.20 H SGOT/AST (test code = AST) 20 IUnit/L 15-37 N SGPT/ALT (test code = ALT) 19 IUnit/L 12-78 N ALKALINE PHOSPHATASE TOTAL (test code = ALKP) 71 IUnit/L 45-117 N Note change in reference range due to change in reagent. [id number] 21:21:00* Test Item Value Reference Range Interpretation Comme nts LIPASE (test code = LIP) 60 U/L 12-57 H [id number] 21:21:00* Test Item Value Reference Range Interpretation Comme nts TROPONIN-I (test code = TROPI) < 0.006 ng/mL 0-0.045 N URINALYSIS [id number] 20:51:00* Test Item Value Reference Range Interpretation Comme nts UA COLOR (test code = COLU) YELLOW YELLOW UA APPEARANCE (test code = APPU) CLEAR CLEAR UA GLUCOSE DIPSTICK (test code = DGLUU) NEGATIVE mg/dL NEGATIVE UA BILIRUBIN DIPSTICK (test code = BILU) NEGATIVE mg/dL NEGATIVE UA KETONE DIPSTICK (test code = KETU) 10 (1+) mg/dL NEGATIVE A UA SPECIFIC GRAVITY (test code = SGU) 1.028 1.001-1.035 UA BLOOD DIPSTICK (test code = JACOB) Negative mg/dL NEGATIVE UA PH DIPSTICK (test code = CANDI) 7.0 5.0-8.0 UA PROTEIN DIPSTICK (test code = PROU) 20 (Trace) mg/dL NEGATIVE A UA UROBILINIOGEN DIPSTICK (test code = URO) 2.0 (1+) mg/dL NEGATIVE A UA NITRITE DIPSTICK (test code = LINDA) NEGATIVE NEGATIVE UA LEUKOCYTE ESTERASE W REFLEX (test code = LEUUR) NEGATIVE Sachin/uL NEGATIVE UA WBC (test code = WBCU) 0-5 per HPF 0-5 UA RBC (test code = RBCU) 0-2 #/HPF 0-5 UA EPITHELIAL CELLS (test code = EPIU) None seen per HPF FEW UA BACTERIA (test code = BACU) NONE SEEN #/HPF NONE UA MUCUS (test code = MUCU) FEW #/LPF FEW UA AMORPHOUS SEDIMENT (test code = AMORU) FEW #/LPF Urine Source? Clean CatchCOVID 19 INHOUSE [id number] 20:48:00* Test Item Value Reference Range Interpretation Comme nts COVID 19 INHOUSE AG (test co de = [id number]) NEGATIVE NEGATIVE BASIC METABOLIC [id number] 23:10:00* Test Item Value Reference Range Interpretation Comme nts SODIUM (test code = NA) 139 mmol/L 136-145 N POTASSIUM (test code = K) 3.8 mmol/L 3.5-5.1 N CHLORIDE (test code = CL) 103.0 mmol/L 98-107 N CARBON DIOXIDE (test code = CO2) 29.0 mmol/L 21-32 N ANION GAP (test code = GAP) 10.8 10-20 N GLUCOSE (test code = GLU) 107 mg/dL 74-106 H BLOOD UREA NITROGEN (test code = BUN) 7 mg/dL 7-18 N GLOMERULAR FILTRATION RATE (test code = GFR) > 60 mL/min >=60 Estimated GFR by using Modified MDRD formula.Chronic kidney disease is defined as either kidney damageor GFR <60 mL/min/1.73 m2 for >3 months. CREATININE (test code = CREAT) 1.00 mg/dL 0.7-1.3 N BUN/CREATININE RATIO (test code = BUN/CREA) 7.0 10-20 L CALCIUM (test code = CA) 9.4 mg/dL 8.5-10.1 N HEPATIC FUNCTION [id number] 23:10:00* Test Item Value Reference Range Interpretation Comme nts TOTAL PROTEIN (test code = PROT) 7.8 gram/dL 6.4-8.2 N ALBUMIN (test code = ALB) 3.8 g/dL 3.4-5.0 N GLOBULIN (test code = GLOB) 4.0 gram/dL 2.7-4.2 N ALBUMIN/GLOBULIN RATIO (test code = A/G) 1.0 0.75-1.50 N BILIRUBIN TOTAL (test code = BILT) 0.40 mg/dL 0.0-1.0 N BILIRUBIN DIRECT (test code = BILD) 0.11 mg/dL 0.0-0.20 N SGOT/AST (test code = AST) 31 IUnit/L 15-37 N SGPT/ALT (test code = ALT) 88 IUnit/L 12-78 H ALKALINE PHOSPHATASE TOTAL (test code = ALKP) 97 IUnit/L 45-117 N Note change in reference range due to change in reagent. [id number] 23:10:00* Test Item Value Reference Range Interpretation Comme nts LIPASE (test code = LIP) 170 U/L 73.0-393.0 N [id number] 23:10:00* Test Item Value Reference Range Interpretation Comme nts TROPONIN-I (test code = TROPI) <0.015 ng/mL 0-0.045 N URINALYSIS [id number] 22:45:00* Test Item Value Reference Range Interpretation Comme nts UA COLOR (test code = COLU) Light-Yellow YELLOW UA APPEARANCE (test code = APPU) CLEAR CLEAR UA GLUCOSE DIPSTICK (test code = DGLUU) NEGATIVE mg/dL NEGATIVE UA BILIRUBIN DIPSTICK (test code = BILU) NEGATIVE mg/dL NEGATIVE UA KETONE DIPSTICK (test code = KETU) NEGATIVE mg/dL NEGATIVE UA SPECIFIC GRAVITY (test code = SGU) 1.017 1.001-1.035 UA BLOOD DIPSTICK (test code = JACOB) Negative mg/dL NEGATIVE UA PH DIPSTICK (test code = CANDI) 6.5 5.0-8.0 UA PROTEIN DIPSTICK (test code = PROU) NEGATIVE mg/dL NEGATIVE UA UROBILINIOGEN DIPSTICK (test code = URO) Normal mg/dL NEGATIVE UA NITRITE DIPSTICK (test code = LINDA) NEGATIVE NEGATIVE UA LEUKOCYTE ESTERASE W REFLEX (test code = LEUUR) NEGATIVE Sachin/uL NEGATIVE UA WBC (test code = WBCU) 0-5 per HPF 0-5 UA RBC (test code = RBCU) 0-2 #/HPF 0-5 UA EPITHELIAL CELLS (test code = EPIU) None seen per HPF FEW UA BACTERIA (test code = BACU) NONE SEEN #/HPF NONE UA MUCUS (test code = MUCU) FEW #/LPF FEW Urine Source? Clean CatchBASIC METABOLIC [id number] 22:41:00* Test Item Value Reference Range Interpretation Comme nts SODIUM (test code = NA) 139 mmol/L 136-145 N POTASSIUM (test code = K) 3.8 mmol/L 3.5-5.1 N CHLORIDE (test code = CL) 103.0 mmol/L 98-107 N CARBON DIOXIDE (test code = CO2) mmol/L 21-32 ANION GAP (test code = GAP) 10-20 GLUCOSE (test code = GLU) mg/dL 74-106 BLOOD UREA NITROGEN (test co de = BUN) mg/dL 7-18 GLOMERULAR FILTRATION RATE ( test code = GFR) mL/min >=60 CREATININE (test code = CREAT) mg/dL 0.7-1.3 BUN/CREATININE RATIO (test c ode = BUN/CREA) 10-20 CALCIUM (test code = CA) mg/dL 8.5-10.1 HEPATIC FUNCTION [id number] 22:41:00* Test Item Value Reference Range Interpretation Comme nts TOTAL PROTEIN (test code = PROT) gram/dL 6.4-8.2 ALBUMIN (test code = ALB) g/dL 3.4-5.0 GLOBULIN (test code = GLOB) gram/dL 2.7-4.2 ALBUMIN/GLOBULIN RATIO (test code = A/G) 0.75-1.50 BILIRUBIN TOTAL (test code = BILT) mg/dL 0.0-1.0 BILIRUBIN DIRECT (test code = BILD) mg/dL 0.0-0.20 SGOT/AST (test code = AST) IUnit/L 15-37 SGPT/ALT (test code = ALT) IUnit/L 12-78 ALKALINE PHOSPHATASE TOTAL ( test code = ALKP) IUnit/L 45-117 [id number] 22:41:00* Test Item Value Reference Range Interpretation Comme nts LIPASE (test code = LIP) U/L 73.0-393.0 [id number] 22:41:00* Test Item Value Reference Range Interpretation Comme nts TROPONIN-I (test code = TROPI) ng/mL 0-0.045 CBC W/O [id number] 22:33:00* Test Item Value Reference Range Interpretation Comme nts WHITE BLOOD CELL (test code = WBC) 11.8 K/mm3 4.5-12.5 N RED BLOOD CELL (test code = RBC) 4.82 mill/mm3 4.0-5.8 N HEMOGLOBIN (test code = HGB) 15.0 gram/dL 13.0-17.5 N HEMATOCRIT (test code = HCT) 45.6 % 42.0-52.0 N MEAN CELL VOLUME (test code = MCV) 94.6 fL 80-98 N MEAN CELL HGB (test code = MCH) 31.1 picogram 27.0-33.0 N MEAN CELL HGB CONCETRATION (test code = MCHC) 32.9 gram/dL 33.0-36.0 L RED CELL DISTRIBUTION WIDTH (test code = RDW) 12.7 % 11.6-16.2 N PLATELET COUNT (test code = PLT) 312 K/mm3 150-450 N MEAN PLATELET VOLUME (test c ode = MPV) 11.1 fL 6.7-11.0 H DRUGS OF ABUSE SCREEN [id number] 15:54:00* Test Item Value Reference Range Interpretation Comme nts UA PH DIPSTICK (test code = CANDI) 5.5 5.0-8.0 URN COCAINE (test code = COCAURN) NEGATIVE <300 ng/mL URN CANNABINOIDS (test code = CANNABURN) POSITIVE <50 ng/mL A This test provid es only a preliminary test result. A morespecific alternate chemical method must be used in order toobtain a confirmed analytical result. Gas chromatography/mass spectrometry (GC/MS) is thepreferred confirmatory method. Other chemical confirmationmethods are available. Clinical consideration and professional judgment should be applied to any drug of abusetest result, particularly when preliminary positive resultsare used.Unconfirmed screening results must not be used fornon-medical purposes (e.g., employment testing, legaltesting). URN AMPHETAMINE (test code = AMPHETURN) NEGATIVE <1000 ng/mL URN BARBITURATE (test code = BARBITURN) NEGATIVE <200 ng/mL URN BENZODIAZEPINE (test code = BENZOURN) POSITIVE <200 ng/mL A This test provid es only a preliminary test result. A morespecific alternate chemical method must be used in order toobtain a confirmed analytical result. Gas chromatography/mass spectrometry (GC/MS) is thepreferred confirmatory method. Other chemical confirmationmethods are available. Clinical consideration and professional judgment should be applied to any drug of abusetest result, particularly when preliminary positive resultsare used.Unconfirmed screening results must not be used fornon-medical purposes (e.g., employment testing, legaltesting). URN OPIATES (test code = OPIATURN) NEGATIVE <300 ng/mL URN PHENCYCLIDINE (PCP) (test code = PHENCURN) NEGATIVE <25 ng/mL URN METHADONE (test code = METHAURN) NEGATIVE <300 ng/mL DRUGS OF ABUSE SCREEN [id number] 15:46:00* Test Item Value Reference Range Interpretation Comme nts UA PH DIPSTICK (test code = CANDI) 5.5 5.0-8.0 URN COCAINE (test code = COCAURN) NEGATIVE <300 ng/mL URN CANNABINOIDS (test code = CANNABURN) <50 ng/mL URN AMPHETAMINE (test code = AMPHETURN) NEGATIVE <1000 ng/mL URN BARBITURATE (test code = BARBITURN) NEGATIVE <200 ng/mL URN BENZODIAZEPINE (test code = BENZOURN) POSITIVE <200 ng/mL A This test provid es only a preliminary test result. A morespecific alternate chemical method must be used in order toobtain a confirmed analytical result. Gas chromatography/mass spectrometry (GC/MS) is thepreferred confirmatory method. Other chemical confirmationmethods are available. Clinical consideration and professional judgment should be applied to any drug of abusetest result, particularly when preliminary positive resultsare used.Unconfirmed screening results must not be used fornon-medical purposes (e.g., employment testing, legaltesting). URN OPIATES (test code = OPIATURN) NEGATIVE <300 ng/mL URN PHENCYCLIDINE (PCP) (test code = PHENCURN) NEGATIVE <25 ng/mL URN METHADONE (test code = METHAURN) NEGATIVE <300 ng/mL DRUGS OF ABUSE SCREEN [id number] 15:44:00* Test Item Value Reference Range Interpretation Comme nts UA PH DIPSTICK (test code = CANDI) 5.0-8.0 URN COCAINE (test code = COCAURN) NEGATIVE <300 ng/mL URN CANNABINOIDS (test code = CANNABURN) <50 ng/mL URN AMPHETAMINE (test code = AMPHETURN) NEGATIVE <1000 ng/mL URN BARBITURATE (test code = BARBITURN) NEGATIVE <200 ng/mL URN BENZODIAZEPINE (test code = BENZOURN) POSITIVE <200 ng/mL A This test provid es only a preliminary test result. A morespecific alternate chemical method must be used in order toobtain a confirmed analytical result. Gas chromatography/mass spectrometry (GC/MS) is thepreferred confirmatory method. Other chemical confirmationmethods are available. Clinical consideration and professional judgment should be applied to any drug of abusetest result, particularly when preliminary positive resultsare used.Unconfirmed screening results must not be used fornon-medical purposes (e.g., employment testing, legaltesting). URN OPIATES (test code = OPIATURN) NEGATIVE <300 ng/mL URN PHENCYCLIDINE (PCP) (test code = PHENCURN) NEGATIVE <25 ng/mL URN METHADONE (test code = METHAURN) NEGATIVE <300 ng/mL - CT ABD PELVIS [id number] 14:20:00 [facility]Name: TANNER BENDER : 1985 Sex: M Name: TANNER BENDER [facility] : 1985 Age/S: 34 / M [address] [facility] Unit#: [id number] Loc: [place] [address] Phys: Herlinda Herr [employer]PECT[employer] Acct: [id number] Dis Date: Status: REG ER PHONE #: [phone] Exam Date: 05/03/2020 1347 FAX #: [phone] Reason: diffuse abd pain, h/o pancreatitis EXAMS: CPT CODE: [id number] CT ABD PELVIS W/CONT 26301 HISTORY: Diffuse abdominal pain with prior pancreatitis. COMPARISON: CT scan from February 21, 2020. Location: [facility]. CT of abdomenand pelvis with IV contrast: 100 mL of Isovue-370. Automated exposure control. CT of abdomen: The lung bases are clear. The liver is enhancing homogeneously. No discrete mass. Portal vein and hepaticartery remain patent. Patient is post cholecystectomy. The liver is measuring 19.4 cm in length. The spleen is not enlarged. Homogeneous enhancement. The stomach distended incompletely and is limitedin evaluation. Pancreas enhances homogeneously. Unremarkable adrenals. Kidneys are free from hydroureteronephrosis. Homogeneous enhancement. Bilateral excretion. No pathologic adenopathy. Well-opacified abdominal and pelvic vasculature. No bowel obstruction or diverticulitis or enteritis. Circumferential wall thickening of the left colon suggesting acute colitis with pericolonic inflammation. CT PELVIS: Appendix is not visible with certainty the surgical clips suspected in the cecal location. Correlate with surgical history. Pelvic bowel loops are unobstructed. Left colitis with circumferential wall thickening. No free fluid or free air or abscess. Mild fluid distention of the small bowel. Prostate is prominent. Urinary bladder is incompletely distended. No pelvic pathologic adenopathy. Subcutaneous tissues and the musculature are normal in appearance. No lytic or blastic lesions are noted within the bony skeleton. PAGE 1 Signed Report (CONTINUED) Name: TANNER BENDER [facility] : 1985 Age/S: 34 / M [address] [facility] Unit #: [id number] Loc: [place] [address] Phys: Herlinda Herr [employer]PECT[employer] TE[employer] Acct: [id number] Dis Date: Status: REG ER PHONE #: [phone] Exam Date: FAX #: [phone] Reason: diffuse abd pain, h/o pancreatitis EXAMS: CPT CODE: [id number] CT ABD PELVIS W/CONT 73692 (Continued) IMPRESSION: Left colitis with pericolonic inflammation and wall thickening without free fluid, free air or abscess. Appendix is not visible but no inflammation. Corre late with surgical history. at 1420 Reported and signed by: Maksim Jade M.D. CC: Herlinda Herr NP Technologist:Lo Manrique,(R),CT CTDI: DLP: Trnscb Date/Time: 05/03/2020 (1420) [email or web address] Orig Print D/T: S: 05/03/2020 (6538) PAGE 2 Signed ReportCOVID 19 INHOUSE [id number] 13:13:00* Test Item Value Reference Range Interpretation Comme nts COVID 19 INHOUSE AG (test co de = [id number]) NEGATIVE BASIC METABOLIC [id number] 13:05:00* Test Item Value Reference Range Interpretation Comme nts SODIUM (test code = NA) 141 mmol/L 136-145 N POTASSIUM (test code = K) 4.1 mmol/L 3.5-5.1 N CHLORIDE (test code = CL) 106.0 mmol/L 98-107 N CARBON DIOXIDE (test code = CO2) 28.0 mmol/L 21-32 N ANION GAP (test code = GAP) 11.1 10-20 N GLUCOSE (test code = GLU) 81 mg/dL 74-106 N BLOOD UREA NITROGEN (test code = BUN) 7 mg/dL 7-18 N GLOMERULAR FILTRATION RATE (test code = GFR) > 60 mL/min >=60 Estimated GFR by using Modified MDRD formula.Chronic kidney disease is defined as either kidney damageor GFR <60 mL/min/1.73 m2 for >3 months. CREATININE (test code = CREAT) 1.00 mg/dL 0.7-1.3 N BUN/CREATININE RATIO (test code = BUN/CREA) 7.0 10-20 L CALCIUM (test code = CA) 8.9 mg/dL 8.5-10.1 N HEPATIC FUNCTION [id number] 13:05:00* Test Item Value Reference Range Interpretation Comme nts TOTAL PROTEIN (test code = PROT) 8.5 gram/dL 6.4-8.2 H ALBUMIN (test code = ALB) 4.0 g/dL 3.4-5.0 N GLOBULIN (test code = GLOB) 4.5 gram/dL 2.7-4.2 H ALBUMIN/GLOBULIN RATIO (test code = A/G) 0.9 0.75-1.50 N BILIRUBIN TOTAL (test code = BILT) 0.50 mg/dL 0.0-1.0 N BILIRUBIN DIRECT (test code = BILD) 0.13 mg/dL 0.0-0.20 N SGOT/AST (test code = AST) 20 IUnit/L 15-37 N SGPT/ALT (test code = ALT) 36 IUnit/L 12-78 N ALKALINE PHOSPHATASE TOTAL (test code = ALKP) 78 IUnit/L 45-117 N Note change in reference range due to change in reagent. [id number] 13:05:00* Test Item Value Reference Range Interpretation Comme nts LIPASE (test code = LIP) 740 U/L 73.0-393.0 H BASIC METABOLIC [id number] 12:56:00* Test Item Value Reference Range Interpretation Comme nts SODIUM (test code = NA) 141 mmol/L 136-145 N POTASSIUM (test code = K) 4.1 mmol/L 3.5-5.1 N CHLORIDE (test code = CL) 106.0 mmol/L 98-107 N CARBON DIOXIDE (test code = CO2) mmol/L 21-32 ANION GAP (test code = GAP) 10-20 GLUCOSE (test code = GLU) mg/dL 74-106 BLOOD UREA NITROGEN (test co de = BUN) mg/dL 7-18 GLOMERULAR FILTRATION RATE ( test code = GFR) mL/min >=60 CREATININE (test code = CREAT) mg/dL 0.7-1.3 BUN/CREATININE RATIO (test c ode = BUN/CREA) 10-20 CALCIUM (test code = CA) mg/dL 8.5-10.1 HEPATIC FUNCTION [id number] 12:56:00* Test Item Value Reference Range Interpretation Comme nts TOTAL PROTEIN (test code = PROT) gram/dL 6.4-8.2 ALBUMIN (test code = ALB) g/dL 3.4-5.0 GLOBULIN (test code = GLOB) gram/dL 2.7-4.2 ALBUMIN/GLOBULIN RATIO (test code = A/G) 0.75-1.50 BILIRUBIN TOTAL (test code = BILT) mg/dL 0.0-1.0 BILIRUBIN DIRECT (test code = BILD) mg/dL 0.0-0.20 SGOT/AST (test code = AST) IUnit/L 15-37 SGPT/ALT (test code = ALT) IUnit/L 12-78 ALKALINE PHOSPHATASE TOTAL ( test code = ALKP) IUnit/L 45-117 [id number] 12:56:00* Test Item Value Reference Range Interpretation Comme nts LIPASE (test code = LIP) U/L 73.0-393.0 URINALYSIS [id number] 12:49:00* Test Item Value Reference Range Interpretation Comme nts UA COLOR (test code = COLU) Light-Yellow YELLOW UA APPEARANCE (test code = APPU) CLEAR CLEAR UA GLUCOSE DIPSTICK (test code = DGLUU) NEGATIVE mg/dL NEGATIVE UA BILIRUBIN DIPSTICK (test code = BILU) NEGATIVE mg/dL NEGATIVE UA KETONE DIPSTICK (test cod e = KETU) NEGATIVE mg/dL NEGATIVE UA SPECIFIC GRAVITY (test code = SGU) 1.020 1.001-1.035 UA BLOOD DIPSTICK (test code = JACOB) Negative mg/dL NEGATIVE UA PH DIPSTICK (test code = CANDI) 5.5 5.0-8.0 UA PROTEIN DIPSTICK (test code = PROU) NEGATIVE mg/dL NEGATIVE UA UROBILINIOGEN DIPSTICK (test code = URO) Normal mg/dL NEGATIVE UA NITRITE DIPSTICK (test code = LINDA) NEGATIVE NEGATIVE UA LEUKOCYTE ESTERASE W REFLEX (test code = LEUUR) NEGATIVE Sachin/uL NEGATIVE UA WBC (test code = WBCU) 0-5 per HPF 0-5 UA RBC (test code = RBCU) 0-2 #/HPF 0-5 UA EPITHELIAL CELLS (test code = EPIU) FEW per HPF FEW UA BACTERIA (test code = BACU) NONE SEEN #/HPF NONE UA MUCUS (test code = MUCU) FEW #/LPF FEW Urine Source? Clean CatchURINALYSIS [id number] 12:48:00* Test Item Value Reference Range Interpretation Comme nts UA COLOR (test code = COLU) Light-Yellow YELLOW UA APPEARANCE (test code = APPU) CLEAR CLEAR UA GLUCOSE DIPSTICK (test code = DGLUU) NEGATIVE mg/dL NEGATIVE UA BILIRUBIN DIPSTICK (test code = BILU) NEGATIVE mg/dL NEGATIVE UA KETONE DIPSTICK (test cod e = KETU) NEGATIVE mg/dL NEGATIVE UA SPECIFIC GRAVITY (test code = SGU) 1.020 1.001-1.035 UA BLOOD DIPSTICK (test code = JACOB) Negative mg/dL NEGATIVE UA PH DIPSTICK (test code = CANDI) 5.5 5.0-8.0 UA PROTEIN DIPSTICK (test code = PROU) NEGATIVE mg/dL NEGATIVE UA UROBILINIOGEN DIPSTICK (test code = URO) Normal mg/dL NEGATIVE UA NITRITE DIPSTICK (test code = LIDNA) NEGATIVE NEGATIVE UA LEUKOCYTE ESTERASE W REFLEX (test code = LEUUR) NEGATIVE Sachin/uL NEGATIVE UA WBC (test code = WBCU) per HPF 0-5 UA RBC (test code = RBCU) per HPF 0-5 UA EPITHELIAL CELLS (test code = EPIU) per HPF Few UA BACTERIA (test code = BACU) per HPF NONE Urine Source? Clean CatchCBC W/O [id number] 12:47:00* Test Item Value Reference Range Interpretation Comme nts WHITE BLOOD CELL (test code = WBC) 7.7 K/mm3 4.5-12.5 N RED BLOOD CELL (test code = RBC) 5.18 mill/mm3 4.0-5.8 N HEMOGLOBIN (test code = HGB) 16.0 gram/dL 13.0-17.5 N HEMATOCRIT (test code = HCT) 49.1 % 42.0-52.0 N MEAN CELL VOLUME (test code = MCV) 94.8 fL 80-98 N MEAN CELL HGB (test code = MCH) 30.9 picogram 27.0-33.0 N MEAN CELL HGB CONCETRATION (test code = MCHC) 32.6 gram/dL 33.0-36.0 L RED CELL DISTRIBUTION WIDTH (test code = RDW) 12.9 % 11.6-16.2 N PLATELET COUNT (test code = PLT) 313 K/mm3 150-450 N MEAN PLATELET VOLUME (test c ode = MPV) 11.3 fL 6.7-11.0 H - XR CHEST 1 [id number] 11:50:00 [facility] 1985 Sex: M FAX: Herlinda Herr NP [place]: [address] St: REG Name: YULIATANNER [facility] : 1985 Age/S: 34/M [address] [place] [address] Unit #: [id number] Loc: [place] [address] Phys: Herlinda Herr [employer]PECT[employer] TE[employer] Acct: [id number] Dis Date: Status: REG ER PHONE #: [phone] Exam Date: 05/03/2020 1149 FAX #: [phone] Reason: cough, abd pain EXAMS: CPT CODE: [id number] XR CHEST 1 V 07705 REASON FOR EXAM: cough, abd pain Exam Order Date: 05/03/2020 11:28 AM Ordering MJudy: Herlinda Herr NP PROCEDURE: - XR CHEST 1 V COMPARISON: 06/05/2017 FINDINGS: Lines/Tubes: None The lungs are clear. There is no pleural effusion or pneumothorax. Pulmonary vascularity is within normal limits. Cardiomediastinal silhouette and mediastinal contours are unchanged when accounting for differences in technique. Musculoskeletal structures and visualized portions of the upper abdomen are also unchanged. IMPRESSION: No acute cardiopulmonary process. Location: [facility] at 1150 Reported and signed by: Edu Witt M.D. CC: Herlinda Herr NP Technologist: RT GARETH(R) Trnscrd Date/Time/By: 05/03/2020 (4762) : By: [email or web address] Orig Print D/T: S: 05/03/2020 (4596) PAGE 1 Signed Report- CT ABD PELVIS W/CONT 2020-02-21 13:43:00 [facility] 1985 Sex: MName: TANNER BENDER [facility] : 1985 Age/S: 34 / M [address] [place] [address] Unit #: [id number] [place]: [place] [address] Phys: Neeru Mooney Acct: [id number] Dis Date: Status:PRE ER PHONE #: [phone] Exam Date: 02/21/2020 1326 FAX #: [phone] Reason: GI Bleed EXAMS:CPT CODE: [id number] CT ABD PELVIS W/CONT 76940 PROCEDURE: CT ABDOMEN AND PELVIS WITH CONTRAST INDICATION: GI Bleed; 34-year-old male with complaint of lower back and abdominal pain, black tarry stools. COMPARISON: CT abdomen and pelvis without contrast 01/27/2020 TECHNIQUE: Helical imaging was performed diaphragm through the symphysis with multiplanar reconstructions. IV CONTRAST: 100 mL Isovue-300. GI CONTRAST: None. CT imaging performed at this location utilizes radiation dose optimization techniques which include one or more of the following: -Automated exposure control -Adjustment of the mA and/or kV according to patient size -Use of iterative reconstruction technique CT Radiation Dose DLP 137.20 mGy-cm LIMITATIONS: None. FINDINGS: LOWER CHEST: The lung bases are clear. LIVER: Normal. BILIARY TREE: No biliary dilatation. GALLBLADDER: Cholecystectomy SPLEEN: Normal. PANCREAS: Normal. ADRENALS: Normal. KIDNEYS: Normal. BOWEL: The stomach, small bowel and colon are unremarkable. APPENDIX: Surgically absent PERITONEUM: No free intraperitoneal fluid or air. RETROPERITONEUM: No adeno erika. The aorta is normal. PAGE 1 Signed Report (CONTINUED) [facility]: 1985 Age[facility] 34 / M [address] [place] [address] Unit #: [id number] Loc: [place] [address] Phys: Neeru Mooney Acct: [id number] Dis Date: Status: PRE ER PHONE #: [phone] Exam Date: 02/21/2020 1326 FAX #: [phone] Reason: GI Bleed EXAMS: CPT CODE: [id number] CT ABD PELVIS W/CONT 99778 <Continued> PELVIS: No pelvic mass. The urinary bladder is contracted, otherwise unremarkable. MUSCULOSKELETAL: There are small focal superior endplate depressions of T11 and L1 vertebrae stable and compatible with Schmorl's nodes. No acute skeletal abnormality. IMPRESSION: 1. No acute findings to account for the patient's symptoms. SL: [id number] at 1343 Reported and signed by: Narciso Hutchins M.D. CC: Neeru [facility] Technologist:Miah Grimm, RT(R) CTDI: DLP: Trnscb Date/Time: 02/21/2020 (1343) [email or web address] Orig Print D/T: S: 02/21/2020 (2666) PAGE 2 Signed ReportBASIC METABOLIC [id number] 12:25:00* Test Item Value Reference Range Interpretation Comme nts SODIUM (test code = NA) 138 mEq/L 134-147 N POTASSIUM (test code = K) 4.1 mEq/L 3.4-5.0 N CHLORIDE (test code = CL) 107 mEq/L 100-108 N CARBON DIOXIDE (test code = CO2) 27 mEq/L 21-33 N ANION GAP (test code = GAP) 8 0-20 N GLUCOSE (test code = GLU) 82 mg/dL 70-110 N BLOOD UREA NITROGEN (test code = BUN) 6 mg/dL 7-18 L GLOMERULAR FILTRATION RATE (test code = GFR) 96.0 105-110 L Units of measure = ml/min/1.73 m2 CREATININE (test code = CREAT) 0.9 mg/dL 0.6-1.3 N CALCIUM (test code = CA) 9.4 mg/dL 8.0-10.5 N HEPATIC FUNCTION [id number] 12:25:00* Test Item Value Reference Range Interpretation Comme nts TOTAL PROTEIN (test code = PROT) 7.8 g/dL 6.4-8.2 N ALBUMIN (test code = ALB) 4.60 g/dL 3.4-5.0 N BILIRUBIN TOTAL (test code = BILT) 0.60 mg/dL 0.0-1.0 N BILIRUBIN DIRECT (test code = BILD) 0.20 MG/DL 0.0-0.30 BILIRUBIN INDIRECT (test cod e = BILIND) 0.40 MG/DL SGOT/AST (test code = AST) 16 IUnit/L 15-37 N SGPT/ALT (test code = ALT) 16 IUnit/L 30-65 L ALKALINE PHOSPHATASE TOTAL ( test code = ALKP) 66 IUnit/L 20-125 N [id number] 12:25:00* Test Item Value Reference Range Interpretation Comme nts LIPASE (test code = LIP) 43 U/L 13-57 N PROTHROMBIN [id number] 12:21:00* Test Item Value Reference Range Interpretation Comme nts PROTHROMBIN TIME PATIENT (test code = PTP) 11.1 SECONDS 9.3-12.9 N INTERNATIONAL NORMAL RATIO (test code = INR) 1.0 0.8-1.2 N TARGET INR BY INDICATION Indication INR1. Prophylaxis of venous thrombosis 2.0 - 3.0 (orthopedic surgery), Prophylaxis of venous thrombosis (other than high-risk surgery), Treatment of Deep Vein Thrombosis/Pulmonary Embolism, Prevention of systemic embolism - Tissue heart valves, Acute Myocardial Infarction (to prevent systemic embolism), Valvular heart disease, Atrial Fibrillation, Bileaflet mechanical valve in aortic position.2. Mechanical prosthetic valves (high risk), 2.5 - 3.5 Presence of Lupus Anticoagulant or Antiphospholipid Antibodies, Prevention of systemic embolism - Acute Myocardial Infarction (to prevent recurrent infarct). - XR ABDOMEN 1V (KUB)2020-02-21 12:16:00 [facility] : 1985 Sex: MFAX: Neeru Slater [phone] [place]: St: PRE Name: TANNER BENDER [facility] : 1985 Age/S:34/M [address] [place] [address] Unit #: [id number] Loc: [place] [address] Phys: Neeru Mooney Acct: [id number] Dis Date: Status: PRE ER PHONE #: [phone] Exam Date: 02/21/2020 1220 FAX #: [phone] Reason: Abdominal Pain, melena EXAMS: CPT CODE: [id number] XR ABDOMEN 1V (KUB) 26018 EXAM: XR ABDOMEN 1 VIEW DATE: 02/21/2020 11:47 AM : 1985; Age: 34 years y/o Male Clinical Indication: Abdominal Pain, melena COMPARISON: August 03, 2015 TECHNIQUE: AP view of the abdomen. FINDINGS: Lower thorax: Unremarkable where visible. Abdomen and bowel: Normal bowel gas pattern. Smallrounded opacity is seen overlying the right pelvis and small linear opacity is noted overlying the left pelvis, which may be external to the patient. Bones: No acute abnormality. IMPRESSION: Nonobstructive bowel gas pattern. Small rounded opacity is seen overlying the right pelvis and small linear opacity is noted overlying the left pelvis, which may be external to the patient. Please correlate clinically. SL: [id number] at 1216 Reported and signed by: Bobby Manrique D.O. CC: Neeru HSU Technologist: RT Ana(Aaron) Trnscrd Date/Time/By: 02/21/2020 (7055) : By: [id number] Orig Print D/T: S: 02/21/2020 ( 8594) PAGE 1 Signed ReportC W/O [id number] 12:07:00* Test Item Value Reference Range Interpretation Comme nts WHITE BLOOD CELL (test code = WBC) 8.2 x10 3/uL 4.5-11.0 N RED BLOOD CELL (test code = RBC) 4.83 x10 6/uL 4.00-5.60 N HEMOGLOBIN (test code = HGB) 15.0 g/dL 12.5-16.9 N HEMATOCRIT (test code = HCT) 45.8 % 37.5-50.7 N MEAN CELL VOLUME (test code = MCV) 94.8 fL 81.0-99.0 N MEAN CELL HGB (test code = MCH) 31.1 pg 27.0-33.0 N MEAN CELL HGB CONCETRATION (test code = MCHC) 32.8 g/dL 33.0-37.0 L RED CELL DISTRIBUTION WIDTH CV (test code = RDW) 12.5 % 11.5-14.5 N RED CELL DISTRIBUTION WIDTH SD (test code = RDW-SD) 43.8 fL 37.0-54.0 N PLATELET COUNT (test code = PLT) 284 x10 3/uL 150-400 N MEAN PLATELET VOLUME (test c ode = MPV) 10.6 fL 7.0-9.0 H CBC W/O [id number] 12:06:00* Test Item Value Reference Range Interpretation Comme nts WHITE BLOOD CELL (test code = WBC) x10 3/uL 4.5-11.0 RED BLOOD CELL (test code = RBC) x10 6/uL 4.00-5.60 HEMOGLOBIN (test code = HGB) 15.0 g/dL 12.5-16.9 N HEMATOCRIT (test code = HCT) 45.8 % 37.5-50.7 N MEAN CELL VOLUME (test code = MCV) fL 81.0-99.0 MEAN CELL HGB (test code = MCH) pg 27.0-33.0 MEAN CELL HGB CONCETRATION ( test code = MCHC) g/dL 33.0-37.0 RED CELL DISTRIBUTION WIDTH CV (test code = RDW) % 11.5-14.5 PLATELET COUNT (test code = PLT) 284 x10 3/uL 150-400 N - CT ABD PELVIS W/O [id number] 16:50:00 [facility] 1985 Sex: MName: TANNER BENDER [facility] [place] : 1985 Age/S: 34 / M [address] [place] [address] Unit #: [id number] Loc: [place] [address] Phys: Ila Horvath MD Acct: [id number] Dis Date: Status: ADM IN PHONE #: [phone] Exam Date: 01/27/2020 1528 FAX #: [phone] Reason: RUQ pain EXAMS: CPT CODE: [id number] CT ABD PELVIS W/O CONT 71256 Clinical Indication: Right upper quadrant pain. Comparison: 01/07/2020. TECHNIQUE: Contiguous axial CT images of the abdomen and pelvis were acquired without the administration of IV contrast. Oral contrast was not administered. Coronal and sagittal reconstructions were obtained. CT imaging performed at this location utilizes radiation dose optimization techniques which include one or more of the following: -Automated exposure control -Adjustment of the mA and/or kV according to patient size -Use of iterative reconstruction technique CT Radiation Dose DLP 162.4 mGy-cm FINDINGS: Lung bases are clear. Visualized cardiac apex is unremarkable. Gallbladder surgically absent. Liver, spleen, pancreas, and adrenal glands are unremarkable. Kidneys have an unremarkable noncontrast appearance. No hydronephrosis. Stomach and small bowel are unremarkable. Appendix is surgically absent. Colonic diverticulosis without evidence of diverticulitis. Abdominal aorta is normal caliber. No free fluid or pneumoperitoneum. Urinary bladder and prostate are unremarkable. No destructive osseous lesion. IMPRESSION: 1. No acute abdominal or pelvic process. SL: [id number] at 1650 Reported and signed by: Manuel Chapman M.D. PAGE 1 Signed Report (CONTINUED) Name[facility]END[facility] 1985 Age/S: 34 / M [address] [place] [address] Blvd Unit #: [id number] Loc: [place] [address] Phys: Ila Horvath MD Acct: [id number] Dis Date: Status: ADM IN PHONE #: [phone] Exam Date: 01/27/2020 1528 FAX #: [phone] Reason: RUQ pain EXAMS: CPT CODE: [id number] CT ABD PELVIS W/O CONT 08699 <Continued> CC: Fahad Mock MD; Ila Horvath MD Technologist:Tommy Ferguson RT(R)(CT) CTDI: DLP: Trnscb Date/Time: 01/27/2020 (1649) [email or web address] Orig Print D/T: S: 01/27/2020 (304) PAGE 2Signed ReportCOMPREHENSIVE METABOLIC [id number] 13:48:00* Test Item Value Reference Range Interpretation Comme nts SODIUM (test code = NA) 142 mEq/L 134-147 N POTASSIUM (test code = K) 3.5 mEq/L 3.4-5.0 N CHLORIDE (test code = CL) 109 mEq/L 100-108 H CARBON DIOXIDE (test code = CO2) 27 mEq/L 21-33 N ANION GAP (test code = GAP) 10 0-20 N GLUCOSE (test code = GLU) 98 mg/dL 70-110 N BLOOD UREA NITROGEN (test code = BUN) 7 mg/dL 7-18 N GLOMERULAR FILTRATION RATE (test code = GFR) 110.0 105-110 N Units of measure = ml/min/1.73 m2 CREATININE (test code = CREAT) 0.8 mg/dL 0.6-1.3 N TOTAL PROTEIN (test code = PROT) 6.2 g/dL 6.4-8.2 L ALBUMIN (test code = ALB) 3.90 g/dL 3.4-5.0 N CALCIUM (test code = CA) 8.9 mg/dL 8.0-10.5 N BILIRUBIN TOTAL (test code = BILT) 0.80 mg/dL 0.0-1.0 N SGOT/AST (test code = AST) 13 IUnit/L 15-37 L SGPT/ALT (test code = ALT) 18 IUnit/L 30-65 L ALKALINE PHOSPHATASE TOTAL (test code = ALKP) 58 IUnit/L 20-125 N [id number] 13:48:00* Test Item Value Reference Range Interpretation Comme nts LIPASE (test code = LIP) 67 U/L 13-57 H CBC W/AUTO [id number] 13:34:00* Test Item Value Reference Range Interpretation Comme nts WHITE BLOOD CELL (test code = WBC) 6.76 x10 3/uL 4.5-11.0 N RED BLOOD CELL (test code = RBC) 4.53 x10 6/uL 4.00-5.60 N HEMOGLOBIN (test code = HGB) 14.0 g/dL 12.5-16.9 N HEMATOCRIT (test code = HCT) 42.4 % 37.5-50.7 N MEAN CELL VOLUME (test code = MCV) 93.6 fL 81.0-99.0 N MEAN CELL HGB (test code = MCH) 30.9 pg 27.0-33.0 N MEAN CELL HGB CONCETRATION (test code = MCHC) 33.0 g/dL 33.0-37.0 N RED CELL DISTRIBUTION WIDTH CV (test code = RDW) 12.2 % 11.5-14.5 N RED CELL DISTRIBUTION WIDTH SD (test code = RDW-SD) 42.5 fL 37.0-54.0 N PLATELET COUNT (test code = PLT) 343 x10 3/uL 150-400 N MEAN PLATELET VOLUME (test c ode = MPV) 10.0 fL 7.0-9.0 H NEUTROPHIL % (test code = NT%) 62.0 % 56.0-77.0 N IMMATURE GRANULOCYTE % (test code = IG%) 0.4 % 0.0-2.0 N LYMPHOCYTE % (test code = LY%) 23.7 % 14.0-32.0 N MONOCYTE % (test code = MO%) 9.0 % 4.8-9.0 N EOSINOPHIL % (test code = EO%) 3.6 % 0.3-3.7 N BASOPHIL % (test code = BA%) 1.3 % 0.0-2.0 N NUCLEATED RBC % (test code = NRBC%) 0.0 % 0-0 N NEUTROPHIL # (test code = NT#) 4.19 x10 3/uL 2.0-7.6 N IMMATURE GRANULOCYTE # (test code = IG#) 0.03 x10 3/uL 0.00-0.03 N LYMPHOCYTE # (test code = LY#) 1.60 x10 3/uL 1.0-3.8 N MONOCYTE # (test code = MO#) 0.61 x10 3/uL 0.1-0.8 N EOSINOPHIL # (test code = EO#) 0.24 x10 3/uL 0.0-0.2 H BASOPHIL # (test code = BA#) 0.09 x10 3/uL 0.0-0.2 N NUCLEATED RBC # (test code = NRBC#) 0.00 x10 3/uL 0.0-0.1 N MANUAL DIFF REQUIRED (test c ode = MDIFF) NO CBC W/AUTO [id number] 13:30:00* Test Item Value Reference Range Interpretation Comme nts WHITE BLOOD CELL (test code = WBC) x10 3/uL 4.5-11.0 RED BLOOD CELL (test code = RBC) x10 6/uL 4.00-5.60 HEMOGLOBIN (test code = HGB) 14.0 g/dL 12.5-16.9 N HEMATOCRIT (test code = HCT) 42.4 % 37.5-50.7 N MEAN CELL VOLUME (test code = MCV) fL 81.0-99.0 MEAN CELL HGB (test code = MCH) pg 27.0-33.0 MEAN CELL HGB CONCETRATION ( test code = MCHC) g/dL 33.0-37.0 RED CELL DISTRIBUTION WIDTH CV (test code = RDW) % 11.5-14.5 PLATELET COUNT (test code = PLT) 343 x10 3/uL 150-400 N NEUTROPHIL % (test code = NT%) % 56.0-77.0 LYMPHOCYTE % (test code = LY%) % 14.0-32.0 NEUTROPHIL # (test code = NT#) x10 3/uL 2.0-7.6 LYMPHOCYTE # (test code = LY#) x10 3/uL 1.0-3.8 MANUAL DIFF REQUIRED (test c ode = MDIFF) - CT ABD PELVIS W/O [id number] 15:46:00Name: TANNER BENDER [facility] : 1985 Age/S: 34 / M [address] [place] [address] Unit #: [id number] Loc: [place] [address] Phys: Jelani Menjivar SHADI Acct: [id number] Dis Date: Status: REG ER PHONE #: [phone] Exam Date: 01/07/2020 1534 FAX #: [phone] Reason: RLQ and R flank pain with vomiting, urinary urg EXAMS: CPT CODE: [id number] CT ABD PELVIS W/O CONT 87131 CT ABDOMEN AND PELVIS WITHOUT CONTRAST INDICATION: RLQ and R flank pain with vomiting, urinary urgency. TECHNIQUE: Unenhanced CT imaging of the abdomen and pelvis with axial, coronal and sagittal reconstructions.CT imaging performed at this location utilizes radiation dose optimization technique which includesone or more of the followin) Automated exposure control; 2) Adjustment of the mA and/or kV according to patient's size; 3) Use of iterative reconstruction techniques. DLP (mGy-cm): 287 COMPARISONS: CT abdomen pelvis 10/06/2019 FINDINGS: There is no acute osseous fracture or dislocation. There is a mild apex leftward spinal curvature. There is no organized fluid collection or mass in the soft tissues. The aorta reveals no aneurysm or acute process. The inferior vena cava reveals no acute process. The lung bases reveal no acute process. There is no acute hepatic process. The gallbladder issurgically absent. The pancreas reveals no acute process. The spleen reveals no acute process. The adrenal glands reveal no acute process or mass. There is no acute renal process. There is no nephroli thiasis or hydronephrosis. There is no acute reproductive structure abnormality. There is nonspecific calcification of the prostate that may be secondary to a remote inflammatory process. There are benign vascular calcifications in the pelvis. There is no intra-abdominal free fluid. There is no intra-abdominal free gas. There is no lymphadenopathy. PAGE 1 Signed Report (CONTINUED) Name: TANNER BENDER [facility] : 1985 Age/S: 34 / M [address] [place] [address] Unit #: [id number] Loc: [place] [address] Phys: Jelani Menjivar Acct: [id number] Dis Date: Status: REG ER PHONE #: [phone] Exam Date: 01/07/2020 1534 FAX #: [phone] Reason: RLQ and R flank pain with vomiting, urinary urg EXAMS: CPT CODE: [id number] CT ABD PELVIS W/O CONT 95325 <Continued> There is underdistention and mucosal thickening of the stomach which could be due to spasm or gastritis. Thereis no bowel perforation or obstruction. The appendix is surgically absent. IMPRESSION: 1. There is underdistention and mucosal thickening of the stomach which could be due to spasm or gastritis. There is no bowel perforation or obstruction. 2. The appendix is surgically absent. 3. There is no nephrolithiasis or acute renal process. 4. The gallbladder is surgically absent. 5. There is a mild apex leftward spinal curvature. This could be due to positioning, muscle spasm or mild scoliosis. at 1546 Reported and signed by: Chucho Walker D.O. CC: Crissy Phillips MD; Jelani HSU Technologist:RT Popeye(R)(CT) CTDI: DLP: Trnscb Date/Time: 01/07/2020 (1546) [email or web address] Orig Print D/T: S: 01/07/2020 (1364) PAGE 2 Signed ReportUA RFLX MICR CULT IF [id number] 15:15:00* Test Item Value Reference Range Interpretation Comme nts UA COLOR (test code = COLU) YELLOW YEL/STRAW UA APPEARANCE (test code = APPU) CLEAR CLEAR UA GLUCOSE DIPSTICK (test co de = DGLUU) NEGATIVE NEGATIVE UA BILIRUBIN DIPSTICK (test code = BILU) NEGATIVE NEGATIVE UA KETONE DIPSTICK (test cod e = KETU) NEGATIVE NEGATIVE UA SPECIFIC GRAVITY (test co de = SGU) 1.015 1.005-1.030 N UA BLOOD DIPSTICK (test code = JACOB) NEGATIVE NEGATIVE UA PH DIPSTICK (test code = CANDI) 5.0 5.0-7.0 N UA PROTEIN DIPSTICK (test co de = PROU) NEGATIVE NEGATIVE UA UROBILINIOGEN DIPSTICK (t est code = URO) 0.2 mg/dL 0.2-1.0 UA NITRITE DIPSTICK (test co de = LINDA) NEGATIVE NEGATIVE UA LEUKOCYTE ESTERASE DIPSTI CK (test code = LEUU) NEGATIVE NEGATIVE UA WBC (test code = WBCU) 0-3 WBC/HPF 0-3 UA RBC (test code = RBCU) 0-3 RBC/HPF 0-3 UA WBC NO REFLEX (test code = WBCUCL) 0-3 WBC/HPF 0-3 UA BACTERIA (test code = BACU) TRACE /HPF NONE SEEN UA SQUAMOUS CELLS (test code = SQU) 0-5 /HPF NONE SEEN UA MUCUS (test code = MUCU) TRACE /LPF NONE SEEN Indication for culture: Flank PainSpecimen Description: MID STREAMCOMPREHENSIVE METABOLIC [id number] 13:59:00* Test Item Value Reference Range Interpretation Comme nts SODIUM (test code = NA) 138 mEq/L 134-147 N POTASSIUM (test code = K) 4.3 mEq/L 3.4-5.0 N CHLORIDE (test code = CL) 105 mEq/L 100-108 N CARBON DIOXIDE (test code = CO2) 28 mEq/L 21-33 N ANION GAP (test code = GAP) 9 0-20 N GLUCOSE (test code = GLU) 75 mg/dL 70-110 N BLOOD UREA NITROGEN (test code = BUN) 9 mg/dL 7-18 N GLOMERULAR FILTRATION RATE (test code = GFR) 85.0 105-110 L Units of measure = ml/min/1.73 m2 CREATININE (test code = CREAT) 1.0 mg/dL 0.6-1.3 N TOTAL PROTEIN (test code = PROT) 7.4 g/dL 6.4-8.2 N ALBUMIN (test code = ALB) 4.40 g/dL 3.4-5.0 N CALCIUM (test code = CA) 9.7 mg/dL 8.0-10.5 N BILIRUBIN TOTAL (test code = BILT) 1.00 mg/dL 0.0-1.0 N SGOT/AST (test code = AST) 22 IUnit/L 15-37 N SGPT/ALT (test code = ALT) 21 IUnit/L 30-65 L ALKALINE PHOSPHATASE TOTAL (test code = ALKP) 65 IUnit/L 20-125 N [id number] 13:59:00* Test Item Value Reference Range Interpretation Comme nts LIPASE (test code = LIP) 43 U/L 13-57 N [id number] 13:59:00* Test Item Value Reference Range Interpretation Comme nts MAGNESIUM (test code = MAG) 1.93 mg/dL 1.8-2.4 N CBC W/AUTO [id number] 13:26:00* Test Item Value Reference Range Interpretation Comme nts WHITE BLOOD CELL (test code = WBC) 7.15 x10 3/uL 4.5-11.0 N RED BLOOD CELL (test code = RBC) 5.05 x10 6/uL 4.00-5.60 N HEMOGLOBIN (test code = HGB) 16.0 g/dL 12.5-16.9 N HEMATOCRIT (test code = HCT) 48.4 % 37.5-50.7 N MEAN CELL VOLUME (test code = MCV) 95.8 fL 81.0-99.0 N MEAN CELL HGB (test code = MCH) 31.7 pg 27.0-33.0 N MEAN CELL HGB CONCETRATION (test code = MCHC) 33.1 g/dL 33.0-37.0 N RED CELL DISTRIBUTION WIDTH CV (test code = RDW) 12.6 % 11.5-14.5 N RED CELL DISTRIBUTION WIDTH SD (test code = RDW-SD) 45.1 fL 37.0-54.0 N PLATELET COUNT (test code = PLT) 294 x10 3/uL 150-400 N MEAN PLATELET VOLUME (test c ode = MPV) 10.7 fL 7.0-9.0 H NEUTROPHIL % (test code = NT%) 59.0 % 56.0-77.0 N IMMATURE GRANULOCYTE % (test code = IG%) 0.3 % 0.0-2.0 N LYMPHOCYTE % (test code = LY%) 26.4 % 14.0-32.0 N MONOCYTE % (test code = MO%) 9.1 % 4.8-9.0 H EOSINOPHIL % (test code = EO%) 4.5 % 0.3-3.7 H BASOPHIL % (test code = BA%) 0.7 % 0.0-2.0 N NUCLEATED RBC % (test code = NRBC%) 0.0 % 0-0 N NEUTROPHIL # (test code = NT#) 4.22 x10 3/uL 2.0-7.6 N IMMATURE GRANULOCYTE # (test code = IG#) 0.02 x10 3/uL 0.00-0.03 N LYMPHOCYTE # (test code = LY#) 1.89 x10 3/uL 1.0-3.8 N MONOCYTE # (test code = MO#) 0.65 x10 3/uL 0.1-0.8 N EOSINOPHIL # (test code = EO#) 0.32 x10 3/uL 0.0-0.2 H BASOPHIL # (test code = BA#) 0.05 x10 3/uL 0.0-0.2 N NUCLEATED RBC # (test code = NRBC#) 0.00 x10 3/uL 0.0-0.1 N MANUAL DIFF REQUIRED (test c ode = MDIFF) NO - CT ABD PELVIS [id number] 20:30:00Name: TANNER BENDER [facility] : 1985 Age/S: 33 / M [address] [facility] Unit #: [id number] Loc: [place] [address] Phys: Thor Olmedo MD Acct: [id number] Dis Date: Status: [facility] PHONE #: [phone] Exam Date: 10/06/20192004 FAX #: [phone] Reason: lower abd pain s/p hernia repair EXAMS: CPT CODE: [id number] CT ABD PELVIS W/CONT 06139 EXAM: CT abdomen pelvis with contrast; INFORMATION: Lower abdominal pain; status post hernia repair; vomiting; TECH NIQUE AND FINDINGS: CT dose reduction protocol; 5 mm cuts through the abdomen and pelvis during andafter intravenous infusion of contrast material. There is soft tissue swelling and subcutaneous stranding in the suprapubic region with a small air collection near the left inguinal canal, consistentwith postoperative changes. Slightly distended jejunal loops but no obstructive pattern; no acute bowel abnormalities. Liver, pancreas and spleen show homogeneous enhancement; no focal lesions. Status post cholecystectomy; no biliary dilatation. Adrenal glands and kidneys unremarkable. No pelvic mass lesions; no abnormal fluid collections. Lung bases are clear. IMPRESSION: 1. Postoperative changes in the left groin and suprapubic region but no evidence of abscess formation or other acute abnormalities. 2. Mild jejunal dilatation, probably representing mild ileus; no evidence of bowel obstruction. Location code: GW at 2029 Reported and signed by: Rodger Riley M.D. CC: Thor Olmedo MD Technologist:FIDE [place] RT(R),CT CTDI: DLP: Trnscb Date/Time: 10/06/2019 (2029) tCARLOS Orig Print D/T: S: 10/06/2019 (2032) PAGE 1 Signed ReportCOMPREHENSIVE METABOLIC [id number] 19:45:00* Test Item Value Reference Range Interpretation Comme nts SODIUM (test code = NA) 135 mmol/L 136-145 L POTASSIUM (test code = K) 4.1 mmol/L 3.5-5.1 N CHLORIDE (test code = CL) 101 mmol/L 101-109 N CARBON DIOXIDE (test code = CO2) 26.4 mmol/L 21-32 N ANION GAP (test code = GAP) 12 mmol/L 10-20 N GLUCOSE (test code = GLU) 137 mg/dL 74-106 H BLOOD UREA NITROGEN (test code = BUN) 10 mg/dL 3-21 N CREATININE (test code = CREAT) 1.13 mg/dL 0.55-1.3 N BUN/CREATININE RATIO (test code = BUN/CREA) 8.8 10-20 L TOTAL PROTEIN (test code = PROT) 7.2 g/dL 6.5-8.4 N ALBUMIN (test code = ALB) 3.6 g/dL 3.4-4.8 N GLOBULIN (test code = GLOB) 3.6 G/DL 1-10 N ALBUMIN/GLOBULIN RATIO (test code = A/G) 1.00 RATIO 0.75-1.50 N CALCIUM (test code = CA) 7.9 mg/dL 8.4-10.2 L BILIRUBIN TOTAL (test code = BILT) 0.60 mg/dL 0.0-1.0 N SGOT/AST (test code = AST) 19 U/L 6-32 N SGPT/ALT (test code = ALT) 20 U/L 12-78 N Note: Change in REFERENCE RANGE due to new reagent method. ALKALINE PHOSPHATASE TOTAL (test code = ALKP) 50 U/L 38-126 N COMPREHENSIVE METABOLIC [id number] 19:41:00* Test Item Value Reference Range Interpretation Comme nts SODIUM (test code = NA) 135 mmol/L 136-145 L POTASSIUM (test code = K) 4.1 mmol/L 3.5-5.1 N CHLORIDE (test code = CL) 101 mmol/L 101-109 N CARBON DIOXIDE (test code = CO2) 26.4 mmol/L 21-32 N ANION GAP (test code = GAP) 12 mmol/L 10-20 N GLUCOSE (test code = GLU) 137 mg/dL 74-106 H BLOOD UREA NITROGEN (test co de = BUN) 10 mg/dL 3-21 N CREATININE (test code = CREAT) 1.13 mg/dL 0.55-1.3 N BUN/CREATININE RATIO (test c ode = BUN/CREA) 8.8 10-20 L TOTAL PROTEIN (test code = PROT) gram/dL 6.4-8.2 ALBUMIN (test code = ALB) g/dL 3.4-5.0 GLOBULIN (test code = GLOB) g/dL 2.7-4.2 ALBUMIN/GLOBULIN RATIO (test code = A/G) 0.75-1.50 CALCIUM (test code = CA) 7.9 mg/dL 8.4-10.2 L BILIRUBIN TOTAL (test code = BILT) mg/dL 0.2-1.2 SGOT/AST (test code = AST) IUnit/L 15-37 SGPT/ALT (test code = ALT) U/L 10-69 ALKALINE PHOSPHATASE TOTAL ( test code = ALKP) IUnit/L 45-117 URINALYSIS W/O [id number] 19:33:00* Test Item Value Reference Range Interpretation Comme nts UA COLOR (test code = COLU) YELLOW YELLOW UA APPEARANCE (test code = APPU) CLEAR CLEAR UA GLUCOSE DIPSTICK (test code = DGLUU) norm mg/dL NEGATIVE UA BILIRUBIN DIPSTICK (test code = BILU) NEGATIVE mg/dL NEGATIVE UA KETONE DIPSTICK (test code = KETU) neg mg/dL NEGATIVE UA SPECIFIC GRAVITY (test code = SGU) 1.025 1.001-1.035 UA BLOOD DIPSTICK (test code = JACOB) neg [place]/uL NEGATIVE UA PH DIPSTICK (test code = CANDI) 5.0 5.0-8.0 UA PROTEIN DIPSTICK (test code = PROU) neg mg/dL Neg-15 UA UROBILINIOGEN DIPSTICK (test code = URO) 1 mg/dL 0.0-0.2 A UA NITRITE DIPSTICK (test code = LINDA) NEGATIVE NEGATIVE UA LEUKOCYTE ESTERASE DIPSTICK (test code = LEUU) neg uL NEGATIVE UA MICROSCOPIC NEEDED? (test code = UAMICRO) NO, NOT INDICATED UA MICROSCOPIC NOT INDICATED UA MICROSCOPIC EXAMS ARE NOT PERFORMED UNLESS ONE OF THECHEMICAL TESTS OR VISUAL EXAMINATION IS ABNORMAL. THE MICROSCOPIC EVALUATIONS ARE PERFORMED ON ALL ABNORMALRESULTS AND/OR WHEN SPECIFICALLY ORDERED BY A PHYSICIAN. CBC W/AUTO [id number] 19:32:00* Test Item Value Reference Range Interpretation Comme nts WHITE BLOOD CELL (test code = WBC) 8.5 K/mm3 4.5-12.5 N RED BLOOD CELL (test code = RBC) 4.11 mill/mm3 4.0-5.8 N HEMOGLOBIN (test code = HGB) 13.0 gram/dL 13.0-17.5 N HEMATOCRIT (test code = HCT) 38.3 % 42.0-52.0 L MEAN CELL VOLUME (test code = MCV) 93.2 fL 80-98 N MEAN CELL HGB (test code = MCH) 31.6 picogram 27.0-33.0 N MEAN CELL HGB CONCETRATION (test code = MCHC) 33.9 gram/dL 33.0-36.0 N RED CELL DISTRIBUTION WIDTH (test code = RDW) 12.3 % 11.6-16.2 N RED CELL DISTRIBUTION WIDTH SD (test code = RDW-SD) 42.8 fL 37.0-51.0 N PLATELET COUNT (test code = PLT) 306 K/mm3 150-450 N MEAN PLATELET VOLUME (test c ode = MPV) 10.3 fL 6.7-11.0 N NEUTROPHIL % (test code = NT%) 60.0 % 39.0-69.0 N LYMPHOCYTE % (test code = LY%) 24.5 % 25.0-55.0 L MONOCYTE % (test code = MO%) 9.6 % 0.0-10.0 N EOSINOPHIL % (test code = EO%) 5.2 % 0.0-5.0 H BASOPHIL % (test code = BA%) 0.6 % 0.0-1.0 N NEUTROPHIL # (test code = NT#) 5.08 K/mm3 1.8-7.7 N LYMPHOCYTE # (test code = LY#) 2.07 K/mm3 1.0-5.0 N MONOCYTE # (test code = MO#) 0.81 K/mm3 0-0.8 H EOSINOPHIL # (test code = EO#) 0.44 K/mm3 0.0-0.5 N BASOPHIL # (test code = BA#) 0.05 K/mm3 0.0-0.2 N Novel Coronavirus 2019 [id number] 09:48:00* Test Item Value Reference Range Interpretation Comme nts Novel Coronavirus 2018 [place] (test code = COVNONPUI) Negative Negative Testing Criteria: Preprocedure ScreeningComments: 09/03/19Novel Coronavirus 2019 [id number] 09:48:00* Test Item Value Reference Range Interpretation Comme nts Novel Coronavirus 2018 Inh se (test code = COVNONPUI) Negative Negative Testing Criteria: Preprocedure ScreeningComments: 09/03/19CB W/AUTO DIFF 2019-09-01 13:10:00* Test Item Value Reference Range Interpretation Comme nts WHITE BLOOD CELL (test code = WBC) 5.4 K/mm3 4.5-12.5 N RED BLOOD CELL (test code = RBC) 4.91 mill/mm3 4.0-5.8 N HEMOGLOBIN (test code = HGB) 15.4 gram/dL 13.0-17.5 N HEMATOCRIT (test code = HCT) 45.9 % 42.0-52.0 N MEAN CELL VOLUME (test code = MCV) 93.5 fL 80-98 N MEAN CELL HGB (test code = MCH) 31.4 picogram 27.0-33.0 N MEAN CELL HGB CONCETRATION (test code = MCHC) 33.6 gram/dL 33.0-36.0 N RED CELL DISTRIBUTION WIDTH (test code = RDW) 13.0 % 11.6-16.2 N RED CELL DISTRIBUTION WIDTH SD (test code = RDW-SD) 44.5 fL 37.0-51.0 N PLATELET COUNT (test code = PLT) 314 K/mm3 150-450 N MEAN PLATELET VOLUME (test c ode = MPV) 10.7 fL 6.7-11.0 N NEUTROPHIL % (test code = NT%) 57.8 % 39.0-69.0 N IMMATURE GRANULOCYTE % (test code = IG%) 0.2 % 0.0-5.0 N LYMPHOCYTE % (test code = LY%) 29.1 % 25.0-55.0 N MONOCYTE % (test code = MO%) 10.5 % 0.0-10.0 H EOSINOPHIL % (test code = EO%) 1.5 % 0.0-5.0 N BASOPHIL % (test code = BA%) 0.9 % 0.0-1.0 N NUCLEATED RBC % (test code = NRBC%) 0.0 % 0-0 N NEUTROPHIL # (test code = NT#) 3.14 K/mm3 1.8-7.7 N IMMATURE GRANULOCYTE # (test code = IG#) 0.01 x10 3/uL 0-0.03 N LYMPHOCYTE # (test code = LY#) 1.58 K/mm3 1.0-5.0 N MONOCYTE # (test code = MO#) 0.57 K/mm3 0-0.8 N EOSINOPHIL # (test code = EO#) 0.08 K/mm3 0.0-0.5 N BASOPHIL # (test code = BA#) 0.05 K/mm3 0.0-0.2 N NUCLEATED RBC # (test code = NRBC#) 0.00 K/mm3 0.0-0.1 N MANUAL DIFF REQUIRED (test c ode = MDIFF) NO CBC W/AUTO [id number] 13:02:00* Test Item Value Reference Range Interpretation Comme nts WHITE BLOOD CELL (test code = WBC) K/mm3 4.5-12.5 RED BLOOD CELL (test code = RBC) mill/mm3 4.0-5.8 HEMOGLOBIN (test code = HGB) 15.4 gram/dL 13.0-17.5 N HEMATOCRIT (test code = HCT) 45.9 % 42.0-52.0 N MEAN CELL VOLUME (test code = MCV) fL 80-98 MEAN CELL HGB (test code = MCH) picogram 27.0-33.0 MEAN CELL HGB CONCETRATION ( test code = MCHC) gram/dL 33.0-36.0 RED CELL DISTRIBUTION WIDTH (test code = RDW) % 11.6-16.2 RED CELL DISTRIBUTION WIDTH SD (test code = RDW-SD) fL 37.0-51.0 PLATELET COUNT (test code = PLT) K/mm3 150-450 MEAN PLATELET VOLUME (test c ode = MPV) fL 6.7-11.0 NEUTROPHIL % (test code = NT%) % 39.0-69.0 IMMATURE GRANULOCYTE % (test code = IG%) % 0.0-5.0 LYMPHOCYTE % (test code = LY%) % 25.0-55.0 MONOCYTE % (test code = MO%) % 0.0-10.0 EOSINOPHIL % (test code = EO%) % 0.0-5.0 BASOPHIL % (test code = BA%) % 0.0-1.0 NEUTROPHIL # (test code = NT#) K/mm3 1.8-7.7 LYMPHOCYTE # (test code = LY#) K/mm3 1.0-5.0 MONOCYTE # (test code = MO#) K/mm3 0-0.8 EOSINOPHIL # (test code = EO#) K/mm3 0.0-0.5 BASOPHIL # (test code = BA#) K/mm3 0.0-0.2 URINALYSIS [id number] 18:41:00* Test Item Value Reference Range Interpretation Comme nts UA COLOR (test code = COLU) YELLOW YELLOW UA APPEARANCE (test code = APPU) HAZY CLEAR A UA GLUCOSE DIPSTICK (test code = DGLUU) norm mg/dL NEGATIVE UA BILIRUBIN DIPSTICK (test code = BILU) NEGATIVE mg/dL NEGATIVE UA KETONE DIPSTICK (test code = KETU) neg mg/dL NEGATIVE UA SPECIFIC GRAVITY (test code = SGU) 1.020 1.001-1.035 UA BLOOD DIPSTICK (test code = JACOB) neg [place]/uL NEGATIVE UA PH DIPSTICK (test code = CANDI) 6.0 5.0-8.0 UA PROTEIN DIPSTICK (test code = PROU) neg mg/dL Neg-15 UA UROBILINIOGEN DIPSTICK (test code = URO) 1 mg/dL 0.0-0.2 A UA NITRITE DIPSTICK (test code = LINDA) NEGATIVE NEGATIVE UA LEUKOCYTE ESTERASE DIPSTICK (test code = LEUU) neg uL NEGATIVE UA WBC (test code = WBCU) NONE SEEN per HPF 0-5 UA RBC (test code = RBCU) NONE SEEN per HPF 0-5 UA EPITHELIAL CELLS (test code = EPIU) Rare (0-1/hpf) per HPF Few UA BACTERIA (test code = BACU) TRACE per HPF NONE UA MUCUS (test code = MUCU) FEW per LPF NONE-FEW URINALYSIS W/O [id number] 18:41:00* Test Item Value Reference Range Interpretation Comme nts UA MICROSCOPIC NEEDED? (test code = UAMICRO) YES COMPREHENSIVE METABOLIC [id number] 18:40:00* Test Item Value Reference Range Interpretation Comme nts SODIUM (test code = NA) 143 mmol/L 135-148 N POTASSIUM (test code = K) 4.2 mmol/L 3.5-5.1 N CHLORIDE (test code = CL) 105 mmol/L 101-109 N CARBON DIOXIDE (test code = CO2) 33.4 mmol/L 21-32 H ANION GAP (test code = GAP) 9 mmol/L 10-20 L GLUCOSE (test code = GLU) 91 mg/dL 74-106 N BLOOD UREA NITROGEN (test code = BUN) 7 mg/dL 3-21 N CREATININE (test code = CREAT) 1.02 mg/dL 0.55-1.3 N BUN/CREATININE RATIO (test code = BUN/CREA) 6.9 10-20 L TOTAL PROTEIN (test code = PROT) 7.9 g/dL 6.5-8.4 N ALBUMIN (test code = ALB) 4.2 g/dL 3.4-4.8 N GLOBULIN (test code = GLOB) 3.7 G/DL 1-10 N ALBUMIN/GLOBULIN RATIO (test code = A/G) 1.1 RATIO 0.75-1.50 N CALCIUM (test code = CA) 8.2 mg/dL 8.4-10.2 L BILIRUBIN TOTAL (test code = BILT) 0.80 mg/dL 0.0-1.0 N SGOT/AST (test code = AST) 17 U/L 6-32 N SGPT/ALT (test code = ALT) 24 U/L 12-78 N Note: Change in REFERENCE RANGE due to new reagent method. ALKALINE PHOSPHATASE TOTAL (test code = ALKP) 58 U/L 38-126 N COMPREHENSIVE METABOLIC [id number] 18:39:00* Test Item Value Reference Range Interpretation Comme nts SODIUM (test code = NA) 143 mmol/L 135-148 N POTASSIUM (test code = K) 4.2 mmol/L 3.5-5.1 N CHLORIDE (test code = CL) 105 mmol/L 101-109 N CARBON DIOXIDE (test code = CO2) 33.4 mmol/L 21-32 H ANION GAP (test code = GAP) 9 mmol/L 10-20 L GLUCOSE (test code = GLU) 91 mg/dL 74-106 N BLOOD UREA NITROGEN (test co de = BUN) 7 mg/dL 3-21 N CREATININE (test code = CREAT) 1.02 mg/dL 0.55-1.3 N BUN/CREATININE RATIO (test c ode = BUN/CREA) 6.9 10-20 L TOTAL PROTEIN (test code = PROT) gram/dL 6.4-8.2 ALBUMIN (test code = ALB) g/dL 3.4-5.0 GLOBULIN (test code = GLOB) g/dL 2.7-4.2 ALBUMIN/GLOBULIN RATIO (test code = A/G) 0.75-1.50 CALCIUM (test code = CA) 8.2 mg/dL 8.4-10.2 L BILIRUBIN TOTAL (test code = BILT) mg/dL 0.2-1.2 SGOT/AST (test code = AST) IUnit/L 15-37 SGPT/ALT (test code = ALT) U/L 10-69 ALKALINE PHOSPHATASE TOTAL ( test code = ALKP) IUnit/L 45-117 URINALYSIS [id number] 18:30:00* Test Item Value Reference Range Interpretation Comme nts UA COLOR (test code = COLU) YELLOW YELLOW UA APPEARANCE (test code = APPU) HAZY CLEAR A UA GLUCOSE DIPSTICK (test co de = DGLUU) norm mg/dL NEGATIVE UA BILIRUBIN DIPSTICK (test code = BILU) NEGATIVE mg/dL NEGATIVE UA KETONE DIPSTICK (test cod e = KETU) neg mg/dL NEGATIVE UA SPECIFIC GRAVITY (test co de = SGU) 1.020 1.001-1.035 UA BLOOD DIPSTICK (test code = JACOB) neg [place]/uL NEGATIVE UA PH DIPSTICK (test code = CANDI) 6.0 5.0-8.0 UA PROTEIN DIPSTICK (test co de = PROU) neg mg/dL Neg-15 UA UROBILINIOGEN DIPSTICK (test code = URO) 1 mg/dL 0.0-0.2 A UA NITRITE DIPSTICK (test co de = LINDA) NEGATIVE NEGATIVE UA LEUKOCYTE ESTERASE DIPSTI CK (test code = LEUU) neg uL NEGATIVE UA WBC (test code = WBCU) per HPF 0-5 UA RBC (test code = RBCU) per HPF 0-5 UA EPITHELIAL CELLS (test co de = EPIU) per HPF Few UA BACTERIA (test code = BACU) per HPF NONE URINALYSIS W/O [id number] 18:30:00* Test Item Value Reference Range Interpretation Comme nts UA MICROSCOPIC NEEDED? (test code = UAMICRO) URINALYSIS [id number] 18:30:00* Test Item Value Reference Range Interpretation Comme nts UA COLOR (test code = COLU) YELLOW YELLOW UA APPEARANCE (test code = APPU) HAZY CLEAR A UA GLUCOSE DIPSTICK (test co de = DGLUU) norm mg/dL NEGATIVE UA BILIRUBIN DIPSTICK (test code = BILU) NEGATIVE mg/dL NEGATIVE UA KETONE DIPSTICK (test cod e = KETU) neg mg/dL NEGATIVE UA SPECIFIC GRAVITY (test co de = SGU) 1.020 1.001-1.035 UA BLOOD DIPSTICK (test code = JACOB) neg [place]/uL NEGATIVE UA PH DIPSTICK (test code = CANDI) 6.0 5.0-8.0 UA PROTEIN DIPSTICK (test co de = PROU) neg mg/dL Neg-15 UA UROBILINIOGEN DIPSTICK (test code = URO) 1 mg/dL 0.0-0.2 A UA NITRITE DIPSTICK (test co de = LINDA) NEGATIVE NEGATIVE UA LEUKOCYTE ESTERASE DIPSTI CK (test code = LEUU) neg uL NEGATIVE UA WBC (test code = WBCU) per HPF 0-5 UA RBC (test code = RBCU) per HPF 0-5 UA EPITHELIAL CELLS (test co de = EPIU) per HPF Few UA BACTERIA (test code = BACU) per HPF NONE URINALYSIS W/O [id number] 18:30:00* Test Item Value Reference Range Interpretation Comme nts UA MICROSCOPIC NEEDED? (test code = UAMICRO) CBC W/AUTO [id number] 18:29:00* Test Item Value Reference Range Interpretation Comme nts WHITE BLOOD CELL (test code = WBC) 7.9 K/mm3 4.5-12.5 N RED BLOOD CELL (test code = RBC) 4.75 mill/mm3 4.0-5.8 N HEMOGLOBIN (test code = HGB) 15.0 gram/dL 13.0-17.5 N HEMATOCRIT (test code = HCT) 45.2 % 42.0-52.0 N MEAN CELL VOLUME (test code = MCV) 95.2 fL 80-98 N MEAN CELL HGB (test code = MCH) 31.6 picogram 27.0-33.0 N MEAN CELL HGB CONCETRATION (test code = MCHC) 33.2 gram/dL 33.0-36.0 N RED CELL DISTRIBUTION WIDTH (test code = RDW) 12.8 % 11.6-16.2 N RED CELL DISTRIBUTION WIDTH SD (test code = RDW-SD) 45.7 fL 37.0-51.0 N PLATELET COUNT (test code = PLT) 311 K/mm3 150-450 N MEAN PLATELET VOLUME (test c ode = MPV) 10.5 fL 6.7-11.0 N NEUTROPHIL % (test code = NT%) 62.6 % 39.0-69.0 N LYMPHOCYTE % (test code = LY%) 27.7 % 25.0-55.0 N MONOCYTE % (test code = MO%) 7.6 % 0.0-10.0 N EOSINOPHIL % (test code = EO%) 1.4 % 0.0-5.0 N BASOPHIL % (test code = BA%) 0.6 % 0.0-1.0 N NEUTROPHIL # (test code = NT#) 4.96 K/mm3 1.8-7.7 N LYMPHOCYTE # (test code = LY#) 2.19 K/mm3 1.0-5.0 N MONOCYTE # (test code = MO#) 0.60 K/mm3 0-0.8 N EOSINOPHIL # (test code = EO#) 0.11 K/mm3 0.0-0.5 N BASOPHIL # (test code = BA#) 0.05 K/mm3 0.0-0.2 N MANUAL DIFF REQUIRED (test c ode = MDIFF) NO - CT ABD PELVIS [id number] 19:37:00Name: TANNER BENDER [facility] : 1985 Age/S: 33 / M [address] [facility] Unit #: [id number] Loc: [place] [address] Phys: Jarett Frazier [employer] Acct: [id number] Dis Date: S tatus: REG ER PHONE #: [phone] Exam Date: 08/23/20191927 FAX #: [phone] Reason: RIGHT GROIN PAIN W/ NEG US. HX: APPENDECTIOMY EXAMS: CPT CODE: [id number] CT ABD PELVIS W/CONT 35495 EXAM: CT of the abdomen and pelvis with contrast; INFORMATION: Pain above right groin; history of appendectomy; TECHNIQUE: CT dose reduction protocol; 5 mm cuts were obtained through the abdomen and pelvis during and after intravenous infusion of contrast material. FINDINGS: Liver, spleen and pancreas are of normal size and shape; they show homogeneous enhancement without focal lesions. No abnormalities of the biliary system. Adrenal glands and kidneys are unremarkable; no evidence of adenopathy; No evidence of appendicitis or other acute bowel abnormalities. No pelvic mass lesions. No abnormal fluidcollections. Scans through the lung bases are clear. IMPRESSION: No evidence of acute abdominal or pelvic abnormalities. No abnormalities in the right groin region. at 1937 Reported and signed by: Rodger Riley M.D. CC: Rm Chow MD; Jarett Frazier Technologist:FIDE [place]ES RT(R),CT CTDI: DLP: Trnscb Date/Time: 08/23/2019 (1936) RitoGRW Orig Print D/T: S: 08/23/2019 (1939) PAGE 1 Signed Report- US ABDOMEN [id number] 18:12:00Name: TANNER BENDER [facility] : 1985 Age/S: 33 / M [address] [facility] Unit #: [id number] Loc: [place] [address] Phys: Jarett Frazier Acct: [id number] Dis Date: Status: REG ER PHONE #: [phone] Exam Date: 08/23/20191803 FAX #: [phone] Reason: R/O HERNIA EXAMS: CPT CODE: [id number] US ABDOMEN LTD 24700 REASON FOR EXAM: R/O HERNIA EXAM ORDER DATE: 08/23/2019 5:41 PM Ordering: Jarett Frazier Attending:Rm Chow MD Location:[facility] PROCEDURE: - US ABDOMEN LTD FINDINGS: Limited focal ultrasound performed for assessment of possible hernia. Ultrasound performed at the lump area shows no obvious evidence of bowel loops. No evidence of free flui d or mass. IMPRESSION: No evidence of hernia. at 1812 Reported and signed by: Keenan Zayas M.D. CC: Rm Chow MD; Jarett Frazier Technologist: Kady Pratt Trnscb Date/Time: 08/23/2019 (1811) RitoVTL Orig Print D/T: S: 08/23/2019 (1814) Probe: PAGE 1 Signed ReportBASIC METABOLIC [id number] 17:52:00* Test Item Value Reference Range Interpretation Comme nts SODIUM (test code = NA) 141 mmol/L 136-145 N POTASSIUM (test code = K) 4.0 mmol/L 3.5-5.1 N CHLORIDE (test code = CL) 103 mmol/L 101-109 N CARBON DIOXIDE (test code = CO2) 30.5 mmol/L 21-32 N ANION GAP (test code = GAP) 12 mmol/L 10-20 N GLUCOSE (test code = GLU) 102 mg/dL 74-106 N BLOOD UREA NITROGEN (test code = BUN) 7 mg/dL 3-21 N GLOMERULAR FILTRATION RATE (test code = GFR) > 60 mL/min >=60 Estimated GFR by using Modified MDRD formula.Chronic kidney disease is defined as either kidney damageor GFR <60 mL/min/1.73 m2 for >3 months. CREATININE (test code = CREAT) 1.07 mg/dL 0.55-1.3 N BUN/CREATININE RATIO (test code = BUN/CREA) 6.5 10-20 L CALCIUM (test code = CA) 8.1 mg/dL 8.4-10.2 L HEPATIC FUNCTION [id number] 17:52:00* Test Item Value Reference Range Interpretation Comme nts TOTAL PROTEIN (test code = PROT) 7.3 g/dL 6.5-8.4 N ALBUMIN (test code = ALB) 3.9 g/dL 3.4-4.8 N GLOBULIN (test code = GLOB) 3.4 G/DL 1-10 N ALBUMIN/GLOBULIN RATIO (test code = A/G) 1.15 RATIO 0.75-1.50 N BILIRUBIN TOTAL (test code = BILT) 1.20 mg/dL 0.0-1.0 H BILIRUBIN DIRECT (test code = BILD) 0.20 mg/dL 0.0-0.30 N SGOT/AST (test code = AST) 16 U/L 6-32 N SGPT/ALT (test code = ALT) 22 U/L 12-78 N Note: Change in REFERENCE RANGE due to new reagent method. ALKALINE PHOSPHATASE TOTAL (test code = ALKP) 58 U/L 38-126 N [id number] 17:52:00* Test Item Value Reference Range Interpretation Comme nts LIPASE (test code = LIP) 293 U/L 128-270 H BASIC METABOLIC [id number] 17:47:00* Test Item Value Reference Range Interpretation Comme nts SODIUM (test code = NA) 141 mmol/L 136-145 N POTASSIUM (test code = K) 4.0 mmol/L 3.5-5.1 N CHLORIDE (test code = CL) 103 mmol/L 101-109 N CARBON DIOXIDE (test code = CO2) 30.5 mmol/L 21-32 N ANION GAP (test code = GAP) 12 mmol/L 10-20 N GLUCOSE (test code = GLU) 102 mg/dL 74-106 N BLOOD UREA NITROGEN (test code = BUN) 7 mg/dL 3-21 N GLOMERULAR FILTRATION RATE (test code = GFR) > 60 mL/min >=60 Estimated GFR by using Modified MDRD formula.Chronic kidney disease is defined as either kidney damageor GFR <60 mL/min/1.73 m2 for >3 months. CREATININE (test code = CREAT) 1.07 mg/dL 0.55-1.3 N BUN/CREATININE RATIO (test code = BUN/CREA) 6.5 10-20 L CALCIUM (test code = CA) 8.1 mg/dL 8.4-10.2 L HEPATIC FUNCTION [id number] 17:47:00* Test Item Value Reference Range Interpretation Comme nts TOTAL PROTEIN (test code = PROT) gram/dL 6.4-8.2 ALBUMIN (test code = ALB) g/dL 3.4-5.0 GLOBULIN (test code = GLOB) g/dL 2.7-4.2 ALBUMIN/GLOBULIN RATIO (test code = A/G) 0.75-1.50 BILIRUBIN TOTAL (test code = BILT) mg/dL 0.2-1.2 BILIRUBIN DIRECT (test code = BILD) mg/dL 0.0-0.20 SGOT/AST (test code = AST) IUnit/L 15-37 SGPT/ALT (test code = ALT) U/L 10-69 ALKALINE PHOSPHATASE TOTAL ( test code = ALKP) IUnit/L 45-117 [id number] 17:47:00* Test Item Value Reference Range Interpretation Comme nts LIPASE (test code = LIP) Unit/L 144-286 DRUGS OF ABUSE SCREEN [id number] 17:47:00* Test Item Value Reference Range Interpretation Comme nts URN COCAINE (test code = COCAURN) POSITIVE NEGATIVE A URN CANNABINOIDS (test code = CANNABURN) POSITIVE NEGATIVE A URN AMPHETAMINE (test code = AMPHETURN) NEGATIVE NEGATIVE URN BARBITURATE (test code = BARBITURN) NEGATIVE NEGATIVE URN BENZODIAZEPINE (test cod e = BENZOURN) NEGATIVE NEGATIVE URN OPIATES (test code = OPIATURN) NEGATIVE NEGATIVE URN PHENCYCLIDINE (PCP) (suraj t code = PHENCURN) NEGATIVE NEGATIVE URINALYSIS [id number] 17:46:00* Test Item Value Reference Range Interpretation Comme nts UA COLOR (test code = COLU) YELLOW YELLOW UA APPEARANCE (test code = APPU) CLEAR CLEAR UA GLUCOSE DIPSTICK (test code = DGLUU) norm mg/dL NEGATIVE UA BILIRUBIN DIPSTICK (test code = BILU) NEGATIVE mg/dL NEGATIVE UA KETONE DIPSTICK (test code = KETU) neg mg/dL NEGATIVE UA SPECIFIC GRAVITY (test code = SGU) 1.010 1.001-1.035 UA BLOOD DIPSTICK (test code = JACOB) neg [place]/uL NEGATIVE UA PH DIPSTICK (test code = CANDI) 7.0 5.0-8.0 UA PROTEIN DIPSTICK (test code = PROU) neg mg/dL Neg-15 UA UROBILINIOGEN DIPSTICK (test code = URO) 1 mg/dL 0.0-0.2 A UA NITRITE DIPSTICK (test code = LINDA) NEGATIVE NEGATIVE UA LEUKOCYTE ESTERASE DIPSTICK (test code = LEUU) neg uL NEGATIVE UA WBC (test code = WBCU) 0-5 per HPF 0-5 UA RBC (test code = RBCU) 0-3 per HPF 0-5 UA EPITHELIAL CELLS (test code = EPIU) Rare (0-1/hpf) per HPF Few UA BACTERIA (test code = BACU) TRACE per HPF NONE Urine Source? Clean CatchURINALYSIS [id number] 17:41:00* Test Item Value Reference Range Interpretation Comme nts UA COLOR (test code = COLU) YELLOW YELLOW UA APPEARANCE (test code = APPU) CLEAR CLEAR UA GLUCOSE DIPSTICK (test co de = DGLUU) norm mg/dL NEGATIVE UA BILIRUBIN DIPSTICK (test code = BILU) NEGATIVE mg/dL NEGATIVE UA KETONE DIPSTICK (test cod e = KETU) neg mg/dL NEGATIVE UA SPECIFIC GRAVITY (test co de = SGU) 1.010 1.001-1.035 UA BLOOD DIPSTICK (test code = JACOB) neg [place]/uL NEGATIVE UA PH DIPSTICK (test code = CANDI) 7.0 5.0-8.0 UA PROTEIN DIPSTICK (test co de = PROU) neg mg/dL Neg-15 UA UROBILINIOGEN DIPSTICK (test code = URO) 1 mg/dL 0.0-0.2 A UA NITRITE DIPSTICK (test co de = LINDA) NEGATIVE NEGATIVE UA LEUKOCYTE ESTERASE DIPSTI CK (test code = LEUU) neg uL NEGATIVE UA WBC (test code = WBCU) per HPF 0-5 UA RBC (test code = RBCU) per HPF 0-5 UA EPITHELIAL CELLS (test co de = EPIU) per HPF Few UA BACTERIA (test code = BACU) per HPF NONE Urine Source? Clean CatchCBC W/O [id number] 17:38:00* Test Item Value Reference Range Interpretation Comme nts WHITE BLOOD CELL (test code = WBC) 7.1 K/mm3 4.5-12.5 N RED BLOOD CELL (test code = RBC) 4.68 mill/mm3 4.0-5.8 N HEMOGLOBIN (test code = HGB) 14.3 gram/dL 13.0-17.5 N HEMATOCRIT (test code = HCT) 44.2 % 42.0-52.0 N MEAN CELL VOLUME (test code = MCV) 94.4 fL 80-98 N MEAN CELL HGB (test code = MCH) 30.6 picogram 27.0-33.0 N MEAN CELL HGB CONCETRATION (test code = MCHC) 32.4 gram/dL 33.0-36.0 L RED CELL DISTRIBUTION WIDTH (test code = RDW) 12.4 % 11.6-16.2 N RED CELL DISTRIBUTION WIDTH SD (test code = RDW-SD) 44.0 fL 37.0-51.0 N PLATELET COUNT (test code = PLT) 308 K/mm3 150-450 N MEAN PLATELET VOLUME (test c ode = MPV) 10.2 fL 6.7-11.0 N SURGICAL [id number] 11:31:00 RUN DATE: 08/04/19 [facility] *LIVE* PAGE 1 RUN TIME: 1131 Specimen Inquiry RUN USER: INTERFACE ------- -----PATIENT: TANNER BENDER [facility] [place] #: [id number] AGE/SX: 31/M ROOM: [facility] RE04/28/17REG DR: Tha Mae DO : 83 BED: 1 DIS: 04/29/17 STATUS: DIS IN TLOC: SPEC #: [id number] RECD: 04/29/17 STATUS: SOUT REQ #: [id number] JAMES: 04/29/[address] [facility] [address]: Tha Mae DO ENTERED: 06/16/17 SP TYPE: SURG SPEC OTHR DR: No Primary or Family Physician Self Referred Cris John MD, Advitya MDORDERED: GM LEVEL 4 CODES: [id number] - STOMACH, NOS COPIES TO: No Primary or Family Physician Self Referred Cris John MD [address] [place] [address] Deloris Haddad MD [facility] [address] [place] [address] OTHER PHONE [phone](CELL) Mae,Tha [address] [address] PROCEDURES: LEVEL 4 (Incomplete) TISSUES: 1. STOMACH, NOS - Stomach, antrum, bx. FINAL DIAGNOSIS Stomach, antrum, biopsy: Mild chronic gastritis, nonactive; no Helicobacter pylori organisms identified. GROSS AND MICROSCOPIC GROSS EXAMINATION: Received is/are the specimen/s designated with the appropriate dimensions and block designation: 1. Stomach, antrum, bx.: 2 segments of pink-goodman tissue, measuring up to 0.4 CONTINUED ON NEXT PAGE RUN DATE: 08/04/19 [facility] *LIVE* PAGE 2 RUN TIME: 1131 Specimen Inquiry RUN USER: INTERFACE SPEC #: [id number] PATIENT: TANNER BENDER #[id number] (Continued) GROSS AND MICROSCOPIC (Continued) cm. in greatest dimension each. MICROSCOPIC EXAMINATION: The gastric mucosa reveals mild foveolarhyperplasia with increased fibrosis and chronic inflammation in the lamina propria. No significant acute inflammation is identified. No Helicobacter pylori organisms are identified with the immunostai n, and no intestinal metaplasia is identified with the alcian blue/PAS stain. (When special stainshave been reviewed, the appropriate positive/negative controls have been reviewed and are appropriately positive/negative). POST-OP DIAGNOSIS Gastric bezoar PRE-OP DIAGNOSIS Epigastric pain, dark stoo ls Signed SIGNATURE ON FILE Natalee Altman MD 08/04/19 1131 END OF REPORT Notes Date/Time Note Provider Source 2024-01-27 13:19:00 [facility] Gastroenterology Progress Note REPORT#:[id number] REPORT STATUS: Signed REPORT INITIALIZATION DATE:01/27/24 TIME: 1318 PATIENT: TANNER BENDER UNIT #: [id number] ROOM/BED: [place] [address] : 84 AGE: 38 SEX: M ATTEND: Jerzy Day MD ADM AUTHOR: Maru Morgan MD REPT SERVICE DT/TIME: 01/27/24 1319 * ALL edits or amendments must be made on the electronic/computer document * Subjective Chief complaint: diarrhea LUQ abdominal pain HPI: 38-year-old male with a past medical history of chronic pain syndrome, pancreatitis who presents to the emergency department for abdominal pain, diarrhea with dark red blood per patient, nausea, vomiting, decreased appetite. Patient was recently just seen here for similar symptoms. Patient had a pancreatic stent placed in December for chronic pancreatitis and feel like he has been having "issues" since. Denies fever, chills, chest pain, shortness of breath, constipation, melena. He had a CT abdomen and plevis which showed the stomach is distended with a fluid level. The proximal small bowel loops demonstrate mild thickening and there is a prominent luminal fluid content in the distal small bowel loops suggestive of gastroenteritis. 01/26/24: ERCP normal. Will plan for colonoscopy next week as outpt 01/26: being discharged. Pt not happy Objective Physical Exam HEENT: anicteric, atraumatic, normocephalic Neck: full range of motion, non-tender, supple/no meningismus Cardiovascular: normal S1/S2, regular rate rhythm Respiratory: aerating well, symmetric expansion, no distress Abdomen: tenderness, normal bowel sounds, soft, no distention Extremities: moves all Skin: dry, intact Diagnosis, Assessment Plan Free Text A P: 1. Gastroenteritis likely viral vs bacterial, patient had recent SBFT showed mild delay but no obstruction. Place patient on double dose PPI, continue IVF, start on clear liquid diet and advance as tolerated 2. LUQ abdominal pain - consult pain management - likely gastritis - PPI 3. Chronic pancreatitis s/p pancreatic stent - lipase 61 4. Anemia with Hgb 12.3 on admission - Hgb 10.9 no overt GIB - monitor H H and for overt GIB at 1320 RPT #:[id number] END OF REPORT [facility] 2024-01-26 17:32:00 [facility] Gastro[facility] Progress Note REPORT#:[id number] REPORT STATUS: Signed REPORT INITIALIZATION DATE:01/26/24 TIME: 1731 PATIENT: TANNER BENDER UNIT #: [id number] [place] [facility] [place] AGE: 38 SEX: M ATTEND: Jerzy Day MD ADM AUTHOR: Maru Morgan MD REPT SERVICE DT/TIME: 01/26/241731 * ALL edits or amendments must be made on the electronic/computer document * Subjective Chief complaint: diarrhea LUQ abdominal pain HPI: 38-year-old male with a past medical history of chronic pain syndrome, pancreatitis who presents to the emergency department for abdominal pain, diarrhea with dark red blood per patient, nausea, vomiting, decreased appetite. Patient was recently just seen here for similar symptoms. Patient had a pancreatic stent placed in December for chronic pancreatitis and feel like he has been having "issues" since. Denies fever, chills, chest pain, shortness of breath, constipation, melena. He had a CT abdomen and plevis which showed the stomach is distended with a fluid level. The proximal small bowel loops demonstrate mild thickening and there is a prominent luminal fluid content in the distal small bowel loops suggestive of gastroenteritis. 01/26/24: ERCP normal. Will plan for colonoscopy next week as outpt Objective Physical Exam HEENT: anicteric, atraumatic, normocephalic Neck: full range of motion, non-tender, supple/no meningismus Cardiovascular: normal S1/S2, regular rate rhythm Respiratory: aerating well, symmetric expansion, no distress Abdomen: tenderness, normal bowel sounds, soft, no distention Extremities: moves all Skin: dry, intact Diagnosis, Assessment Plan Free Text A P: 1. Gastroenteritis likely viral vs bacterial, patient had recent SBFT showed mild delay but no obstruction. Place patient on double dose PPI, continue IVF, start on clear liquid diet and advance as tolerated 2. LUQ abdominal pain - consult pain management - likely gastritis - PPI 3. Chronic pancreatitis s/p pancreatic stent - lipase 61 4. Anemia with Hgb 12.3 on admission - Hgb 10.9 no overt GIB - monitor H H and for overt GIB at 1733 RPT #:[id number] END OF REPORT [facility] 2024-01-26 07:20:00 [id number] [address] PATIENT NAME: TANNER BENDER ADMIT DATE: 01/24/24 ACCOUNT NO: [id number] [place] [facility] [place] 38 REPORT TYPE: ENDOSCOPY REPORT SEX: M ADMITTING PHYSICIAN:Jerzy Day MD ATTENDING PHYSICIAN:Jerzy Day MD Gastroenterology Patient Name: Tanner Bender Procedure Date: 01/26/2024 7:20 AM Date of : 1985 Procedure: ERCP Indications: Bile duct stone(s), Suspected acute recurrent pancreatitis Providers: Maru Morgan MD Referring MD: Self Referred Requesting Provider: Medicines: General Anesthesia, Monitored Anesthesia Care Procedure: Pre-Anesthesia Assessment: - Prior to the procedure, a History and Physical was performed, and patient medications and allergies were reviewed. The patient's tolerance of previous anesthesia was also reviewed. The risks and benefits of the procedure and the sedation options and risks were discussed with the patient. All questions were answered, and informed consent was obtained. Prior Anticoagulants: The patient has taken no anticoagulant or antiplatelet agents. ASA Grade Assessment: II - A patient with mild systemic disease. After reviewing the risks and benefits, the patient was deemed in satisfactory condition to undergo the procedure. - Prior to the procedure, a History and Physical was performed, and patient medications, allergies and sensitivities were reviewed. The patient's tolerance of previous anesthesia was reviewed. - The risks and benefits of the procedure and the sedation options and risks were discussed with the patient. All questions were answered and informed consent was obtained. - Patient identification and proposed procedure were verified prior to the procedure by the physician, the nurse, the manager intern and the archives technician. The procedure was verified in the procedure room. - Pre-procedure physical examination revealed no contraindications to sedation. - ASA Grade Assessment: II - A patient with mild systemic disease. PATIENT NAME: TANNER BENDER - After reviewing the risks and benefits, the patient was deemed in satisfactory condition to undergo the procedure. - Monitored anesthesia care under the supervision of a CONSUMER MARKETING MANAGER was determined to be medically necessary for this procedure based on review of the patient's medical history, medications, and prior anesthesia history. After obtaining informed consent, the scope was passed under direct vision. Throughout the procedure, the patient's blood pressure, pulse, and oxygen saturations were monitored continuously. The Duodenoscope was introduced through the mouth, and advanced to the duodenum without successful cannulation. The ERCP was accomplished without difficulty. The patient tolerated the procedure well. The Duodenoscope was introduced through the mouth, and advanced to the duodenum and used to inject contrast into the bile duct. Findings: The woven wood shade assembler film was normal. The esophagus was successfully intubated under direct vision. The scope was advanced to a normal major papilla in the descending duodenum without detailed examination of the pharynx, larynx and associated structures, and upper GI tract. The upper GI tract was grossly normal. The bile duct was deeply cannulated with the short-nosed traction sphincterotome. Contrast was injected. I personally interpreted the bile duct images. Ductal flow of contrast was adequate. Image quality was adequate. Contrast extended to the entire biliary tree. The main bile duct and common hepatic duct were normal. A straight Roadrunner wire was passed into the biliary tree. A 3 mm biliary sphincterotomy was made with a traction (standard) sphincterotome using ERBE electrocautery. There was no post-sphincterotomy bleeding. The biliary tree was swept with a 12 mm balloon starting at the bifurcation. Nothing was found. Complications: No immediate complications. Estimated Blood Loss: Estimated blood loss: none. Estimated blood loss: none. Impression: - A biliary sphincterotomy was performed. - The biliary tree was swept and nothing was found. Recommendation: - Return patient to hospital [facility] for observation. Procedure Code(s): --- Professional --- 96373, 52, Endoscopic retrograde cholangiopancreatography (ERCP); with sphincterotomy/papillotomy 46832, Endoscopic catheterization of the biliary ductal system, radiological supervision and interpretation Diagnosis Code(s): --- Professional --- K80.50, Calculus of bile duct without cholangitis or cholecystitis without obstruction PATIENT NAME: TANNER BENDER CPT copyright 2022 [employer]. All rights reserved. The codes documented in this report are preliminary and upon green end man review may be revised to meet current compliance requirements. Maru Morgan MD 01/26/2024 5:32:13 PM Number of Addenda: 0 Note Initiated On: 01/26/2024 7:20 AM Provation {[id number]}.pdf ProVation FT PDF at 1732 PATIENT NAME: TANNER BENDER [facility] 2024-01-25 12:19:00 [facility] ([facility]) GE Consultation Note REPORT#:[id number] REPORT STATUS: Signed REPORT INITIALIZATION DATE:01/25/24 TIME: 1218 PATIENT: TANNER BENDER UNIT #: [id number] ROOM/BED: [place] [address] : 84 AGE: 38 SEX: M ATTEND: Jerzy Day MD ADM AUTHOR: Pallavi Spring REPT SERVICE DT/TIME: 01/25/24 1219 * ALL edits or amendments must be made on the electronic/computer document * History of Present Illness Reason for consult: chronic pancreatitis gastroenteritis Chief complaint: diarrhea LUQ abdominal pain HPI: 38-year-old male with a past medical history of chronic pain syndrome, pancreatitis who presents to the emergency department for abdominal pain, diarrhea with dark red blood per patient, nausea, vomiting, decreased appetite. Patient was recently just seen here for similar symptoms. Patient had a pancreatic stent placed in December for chronic pancreatitis and feel like he has been having "issues" since. Denies fever, chills, chest pain, shortness of breath, constipation, melena. He had a CT abdomen and plevis which showed the stomach is distended with a fluid level. The proximal small bowel loops demonstrate mild thickening and there is a prominent luminal fluid content in the distal small bowel loops suggestive of gastroenteritis. History - Adult longitudinal Past medical history: Reports: Asthma, Chronic pain, Pancreatitis (Chronic). Additional medical history: Anxiety Past surgical history: Denies: Abdominal surgery. Family history: Denies: CAD < 40 yrs old. Additional family history: n/c Alcohol use: Denies EtOH use Drug use: Denies recreational drugs Smoking status for patients 13 years old or older: Never Smoker Other social history: Primary family support Additional social history: family hx- unknown Allergies: Coded Allergies: Penicillins (Severe, THROAT SWELLS UP 01/10/24) Review of Systems GI: Reports: abdominal pain, diarrhea, nausea, vomiting. All systems rev neg: except as marked Objective Physical Exam VS/I O: Last Documented: Result Date Time Pulse Ox 99 01/24 112 B/P 114/71 01/24 1126 B/P Mean 85.0 01/24 112 Temp 98.1 01/24 112 Pulse 64 01/24 1126 Resp 16 01/24 112 O2 Delivery Room air 01/23 1413 24 hour I O ending at 0700: 01/24 0700 01/23 1900 Intake Total Output Total Balance Patient 59.091 kg Weight Weight Stated/Reported Measurement Method PATIENT WEIGHT: Weight (lb): Weight (oz): Weight (kg): 59.091 Medications: Active Meds + DC'd Last 24 Hrs Gabapentin (NEURONTIN) 100 MG BID PO Hydromorphone HCl (DILAUDID) 2 MG Q4H PRN PRN PO Methocarbamol (ROBAXIN 750 MG) 750 MG Q8H PO Oxycodone/Acetaminophen (PERCOCET 7.5/325MG TAB) 1 TAB Q4H PRN PRN PO Alprazolam (XANAX) 2 MG TID PRN PO Acetaminophen (TYLENOL) 650 MG Q4H PRN PRN PO Al Hydrox/Mg Hydrox/Simethicone (MYLANTA) 30 ML Q4H PRN PRN PO Docusate Sodium (COLACE) 100 MG BID PRN PRN PO Hydromorphone HCl (DILAUDID) 0.5 MG Q8H PRN PRN IV (DC) Ondansetron HCl (ZOFRAN) 4 MG Q4H PRN PRN IV Sodium Chloride (SODIUM CHLORIDE 0.9%) 1,000 ML .[id number] IV Acetaminophen (TYLENOL) 650 MG Q6H PRN PRN PO (DC) Hydrocodone Bitart/Acetaminophen (NORCO 10/325) 1 TAB Q4H PRN PRN PO (DC ) Hydromorphone HCl (DILAUDID) 0.5 MG Q3H PRN PRN IV (DC) Oxycodone/Acetaminophen (PERCOCET 5/325MG TAB) 2 TAB Q4H PRN PRN PO (DC) Fentanyl Citrate (SUBLIMAZE) 75 MCG X1ED STA IV (DC) Iopamidol (ISOVUE-300 100ML) 100 ML .STK-MED ONE IV (DC) Fentanyl Citrate (SUBLIMAZE) 50 MCG X1ED STA IV (DC) Diphenhydramine HCl (BENADRYL) 25 MG X1ED STA IV (DC) Morphine Sulfate (morphine SULFATE) 4 MG X1ED STA IV (DC) Ciprofloxacin/Dextrose (CIPRO 400MG/D5W 200ML) 200 ML X1ED STA IV (DC) Metronidazole/Sodium Chloride (metroNIDAZOLE 500MG/NS 100ML) 100 ML X1ED STA IV (DC) Sodium Chloride (SODIUM CHLORIDE 0.9%) 250 ML X1ED STA IV (DC) General appearance: alert, awake HEENT: anicteric, atraumatic, normocephalic Neck: full range of motion, non-tender, supple/no meningismus Cardiovascular: normal S1/S2, regular rate rhythm Respiratory: aerating well, symmetric expansion, no distress Abdomen: tenderness, normal bowel sounds, soft, no distention Extremities: moves all Skin: dry, intact Results Findings/Data: Laboratory Tests 01/25/24 0400: [Embedded Image Not Available] 01/24/24 1416: [Embedded Image Not Available] Laboratory Tests 01/24 01/23 01/23 0400 1501 1416 Chemistry Sodium (134 - 147 mEq/L) 141 140 Potassium (3.4 - 5.0 mEq/L) 4.2 3.6 Chloride (100 - 108 mEq/L) 110 H 107 Carbon Dioxide (21 - 33 mEq/l) 25 27 Anion Gap (0 - 20) 10 9 BUN (7 - 25 mg/dL) 8 10 Creatinine (0.6 - 1.3 mg/dL) 0.9 1.3 Glomerular Filtr Rate (105 - 110) 111.4 H 71.7 L Glucose (77 - 141 mg/dL) 91 92 Lactic Acid (0.4 - 1.9 mmol/L) 1.5 Calcium (8.0 - 10.5 mg/dL) 7.8 L 9.3 Total Bilirubin (0.0 - 1.0 mg/dL) 0.50 Direct Bilirubin (0.1 - 0.3 MG/DL) 0.20 Indirect Bilirubin (MG/DL) 0.30 AST (8 - 34 IUnit/L) 25 ALT (10 - 49 IUnit/L) 31 Total Alk Phosphatase (20 - 125 IUnit/L) 77 Total Protein (6.4 - 8.2 g/dL) 8.3 H Albumin (3.4 - 5.0 g/dL) 4.20 Lipase (13 - 57 U/L) 61 H Laboratory Tests 01/23 1416 Coagulation INR (0.8 - 1.2) 1.1 PTT ([place]) (25.0 - 39.5 Seconds) 31.0 PT Patient/Control Mix (9.3 - 12.9 SECONDS) 12.3 Laboratory Tests 01/24 01/23 0400 1416 Hematology WBC (4.5 - 11.0 x10 3/uL) 6.8 8.6 RBC (4.00 - 5.60 x10 6/uL) 4.10 4.66 Hgb (12.5 - 16.9 g/dL) 10.9 L 12.3 L Hct (37.5 - 50.7 %) 35.3 L 39.0 MCV (81.0 - 99.0 fL) 86.1 83.7 MCH (27.0 - 33.0 pg) 26.6 L 26.4 L MCHC (33.0 - 37.0 g/dL) 30.9 L 31.5 L RDW (11.5 - 14.5 %) 15.4 H 15.4 H Plt Count (150 - 400 x10 3/uL) 370 527 H MPV (7.0 - 9.0 fL) 10.5 H 9.9 H Neut % (Auto) (56.0 - 77.0 %) 41.3 L 58.5 Lymph % (Auto) (14.0 - 32.0 %) 46.8 H 31.2 Randolph % (Auto) (4.8 - 9.0 %) 7.2 7.7 Eos % (Auto) (0.3 - 3.7 %) 3.2 1.2 Baso % (Auto) (0.0 - 2.0 %) 1.2 0.9 Neut # (Auto) (2.0 - 7.6 x10 3/uL) 2.81 5.04 Lymph # (Auto) (1.0 - 3.8 x10 3/uL) 3.18 2.68 Randolph # (Auto) (0.1 - 0.8 x10 3/uL) 0.49 0.66 Eos # (Auto) (0.0 - 0.2 x10 3/uL) 0.22 H 0.10 Baso # (Auto) (0.0 - 0.2 x10 3/uL) 0.08 0.08 Abs Immat Gran (auto) (0.00 - 0.03 x10 3/uL) 0.02 0.04 H Immature Gran % (0.0 - 2.0 %) 0.3 0.5 Nucleated RBC % (0 - 0 %) 0.0 0.0 Nucleated RBCs # (Man) (0.0 - 0.1 x10 3/uL) 0.00 0.00 Radiology data: Recent Impressions: CAT SCAN - CT ABD PELVIS W/CONT 01/23 1531 Report Impression - Status: SIGNED Entered: 01/24/2024 4816 IMPRESSION: Stomach and small bowel findings probably relate to gastroenteritis. Impression By: Amisha Whitaker M.D. Diagnosis, Assessment Plan Free Text DxA P Notes Free Text DxA P Notes: 1. Gastroenteritis likely viral vs bacterial, patient had recent SBFT showed mild delay but no obstruction. Place patient on double dose PPI, continue IVF, start on clear liquid diet and advance as tolerated 2. LUQ abdominal pain - consult pain management - likely gastritis - PPI 3. Chronic pancreatitis s/p pancreatic stent - lipase 61 4. Anemia with Hgb 12.3 on admission - Hgb 10.9 no overt GIB - monitor H H and for overt GIB at 1240 RPT #:[id number] END OF REPORT [facility] 2024-01-25 10:05:00 [facility] ([facility]) Internal Medicine Prog. Note REPORT#:[id number] REPORT STATUS: Signed REPORT INITIALIZATION DATE:01/25/24 TIME: 100 PATIENT: TANNER BENDER UNIT #: [id number] ROOM/BED: [place] [address] : 84 AGE: 38 SEX: M ATTEND: Jerzy Day MD ADM AUTHOR: Jerzy Day MD REPT SERVICE DT/TIME: 01/25/24 1005 * ALL edits or amendments must be made on the electronic/computer document * Subjective Free Text Subj Notes Free Text Subj Notes: overall stable Objective General VS/I O: Vital Signs Date Temp Pulse Resp B/P B/P Mean Pulse Ox FiO2 01/23-01/24 36.4-37.2 54-96 15-18 101-136/66-89 77.5-102 96-100 Last Documented: Result Date Time Pulse Ox 99 01/24 1126 B/P 114/71 01/24 1126 B/P Mean 85.0 01/24 1126 Temp 36.7 01/24 1126 Pulse 64 01/24 1126 Resp 16 01/24 1126 O2 Delivery Room air 01/23 1413 24 hour I O ending at 0700: 01/24 0700 01/23 1900 Intake Total Output Total Balance Patient 59.091 kg Weight Weight Stated/Reported Measurement Method PATIENT WEIGHT: Weight (lb): Weight (oz): Weight (kg): 59.091 Physical Exam General appearance: alert, awake, oriented Head/Eyes: atraumatic, EOMI, normocephalic, PERRLA ENT: normal pharynx Neck: non-tender, no JVD Cardiovascular: normal heart sounds, regular rate rhythm, no murmur Respiratory: aerating well, clear to auscultation, symmetric expansion, no distress Abdomen: non-tender, normal bowel sounds, soft, no distention Extremities: Extremities: moves all Musculoskeletal: normal inspection Neuro/BOBBIN DISKER: alert, oriented x 3 Diagnosis, Assessment Plan Problem List/A P: 1. Intractable vomiting with nausea 2. Acute on chronic pancreatitis 3. Chronic generalized abdominal pain Free Text DxA P Notes Free text DxA P notes: medications reviewed, continue same resume home medications diet per GI recs NPO for ERCP tomorrow pain control per pain mgmt plan d/c home after ERCP tomorrow at 1315 RPT #:[id number] END OF REPORT [facility] 2024-01-24 20:23:00 [facility] ([facility]) History Physical - Adult REPORT#:[id number] REPORT STATUS: Signed REPORT INITIALIZATION DATE:01/24/24 TIME: 2022 PATIENT: TANNER BENDER UNIT #: [id number] ROOM/BED: [place] [address] : 84 AGE: 38 SEX: M ATTEND: Jerzy Day MD ADM AUTHOR: Jerzy Day MD REPT SERVICE DT/TIME: 01/24/242022 * ALL edits or amendments must be made on the electronic/computer document * History of Present Illness Free Text HPI Notes Free Text HPI Notes: 38 year old male with multiple co-morbidities admitted with acute on chronic abdominal pain, nausea and intolerated to PO diet. no fever, chills, chest pain, shortness of breath, nausea/vomiitng. CT a/p unremarkable, lipase minimally elevated History Past medical history: Reports: Asthma, Chronic pain, Pancreatitis (Chronic). Additional medical history: Anxiety Past surgical history: Denies: Abdominal surgery. Family history: Denies: CAD < 40 yrs old. Additional family history: n/c Alcohol use: Denies EtOH use Drug use: Denies recreational drugs Smoking status for patients 13 years old or older: Never Smoker Other social history: Primary family support Additional social history: family hx- unknown Medication/Allergy-Vaccine Hx Allergies: Coded Allergies: Penicillins (Severe, THROAT SWELLS UP 01/10/24) Review of Systems All systems rev neg: except as marked Physical Exam VS/I O Vital Signs: Date Time Temp Pulse Resp B/P B/P Pulse O2 O2 Flow FiO2 Mean Ox Delivery Rate 01/24 1126 36.7 64 16 114/71 85.0 99 01/24 0730 36.8 65 17 117/74 88.5 96 01/24 0330 36.4 58 16 101/66 77.5 99 01/23 2348 36.5 54 15 122/68 86.3 99 01/23 1939 36.7 65 16 131/84 99.8 98 01/23 1600 84 18 136/72 99 01/23 1500 77 132/77 98 100 01/23 1413 37.2 96 18 130/89 102 100 Room air 24 hour I O ending at 0700: 01/24 0700 01/23 1900 Intake Total Output Total Balance Patient 59.091 kg Weight Weight Stated/Reported Measurement Method PATIENT WEIGHT: Weight (lb): Weight (oz): Weight (kg): 59.091 General appearance: alert, awake, oriented Head/Eyes: atraumatic, EOMI, normocephalic, PERRLA ENT: normal pharynx Neck: non-tender, no JVD Cardiovascular: regular rate rhythm, normal heart sounds, no murmur Respiratory: clear to auscultation, no distress, no tenderness, aerating well Abdomen/GI: active bowel sounds, soft, non-tender, no guarding Extremities: moves all Musculoskeletal: normal inspection Neuro/BOBBIN DISKER: alert, oriented X 3 Diagnosis, Assessment Plan Problem List/A P: 1. Intractable vomiting with nausea 2. Acute on chronic pancreatitis 3. Elevated lipase Free Text DxA P Notes Free Text DxA P Notes: medications reviewed, continue same IVF hydration pain control as ordered lipase, CT a/p reassuring GI follow up pain control as ordered supportive care at 1304 RPT #:[id number] END OF REPORT [facility] 2024-01-24 17:33:00 [facility] ([facility]) EMERGENCY PROVIDER REPORT REPORT#:[id number] REPORT STATUS: Signed DATE:01/24/24 TIME: 5983 PATIENT: TANNER BENDER UNIT #: [id number] ROOM/BED: 599-1 : 84 AGE: 38 SEX:M PCP PHYS: Geetha Acosta MD SERVICE AUTHOR: Crissy Phillips MD REP SRV REP SRV TM: 1733 * ALL edits or amendments must be made on the electronic/computer document * HPI-GI Bleed/Rectal Prob General Confirmed Patient Yes Initial Greet Date/Time 01/24/24 1411 PCP Dave - PMD, Cathy - GI, [facility] Presentation Chief Complaint Rectal bleeding Free Text HPI Notes Free Text HPI Notes 38-year-old male with PMH chronic pancreatitis, chronic pain, anxiety, tremors, asthma and a pancreatic stent presents with melena. The patient reports acute onset of symptoms that began 1.5 weeks ago. He admits to associated shortness of breath, palpitations, fever (max oral temp of 102.3 taken last night), abdominal pain, painful sitting and decreased po intake. He called his GI physician, who sent him to the ED for admission, as he plans to perform surgery on the patient on Friday. The patient denies chest pain, cough, nausea/vomiting , hematochezia, hematuria, anticoagulant use, LE swelling or calf pain. Review of Systems ROS Statements All systems rev neg except as marked. Past Medical History - Adult Stated Complaint "MY DR SENT ME TO GET ADMITTED" BACK PAIN,DIARR Allergies Coded Allergies: Penicillins (Severe, THROAT SWELLS UP 01/10/24) Home Medications Active Scripts HYDROmorphone (DILAUDID) 2 MG PO Q6H PRN PRN PAIN SCALE 7-10 7 Days #28 TABS Prov: 12/22/23 DICYCLOMINE (BENTYL) 20 MG PO QID DICYCLOMINE (BENTYL) 20 MG PO QID #40 TABS Prov: 01/15/24 GABAPENTIN (NEURONTIN) 100 MG PO BID GABAPENTIN (NEURONTIN) 100 MG PO BID #30 CAP Prov: 01/15/[address] (PROTONIX) 40 MG PO DAILY PANTOPRAZOLE DR (PROTONIX) 40 MG PO DAILY #30 TAB Prov: 01/15/24 Discontinued Scripts HYDROmorphone (DILAUDID) 1 MG PO Q6H PRN PRN PAIN SCALE 7-10 7 Days #28 TABS Prov: 01/15/24 DC: 01/24/242056 Patient stopped taking Reported Medications ALPRAZolam (XANAX) 2 MG PO TID PRN ANXIETY HYDROmorphone (DILAUDID) 2 MG PO Q4H PRN PRN PAIN SCALE 7-10 AMYLASE/LIPASE/PROTEA 120,000/24,000/76,000 U (CREON 24) 24,000 UNITS PO TID MEALS METHOCARBAMOL (ROBAXIN) 750 MG PO Q4H ALBUTEROL (PROAIR DIGIHALER 90 MCG/ACT 0.65 GM) 2 PUFF INH RTQ6H Past Medical History: Reports: Asthma, Chronic pain, Pancreatitis (Chronic). Additional Medical History Anxiety Past Surgical History: Denies: Abdominal surgery. Family History: Denies: CAD < 40 yrs old. Additional Family History n/c Alcohol Use Denies EtOH use Drug Use Denies recreational drugs Smoking status for patients 13 years old or older: Never Smoker Other Social History Primary family support Additional Social History family hx- unknown Physical Exam Vital Signs Vital Signs First Documented: Result Date Time Pulse Ox 100 01/23 1413 B/P 130/89 01/23 1413 B/P Mean 102 01/23 1413 O2 Delivery Room air 01/23 1413 Temp 99.0 01/23 1413 Pulse 96 01/23 1413 Resp 18 01/23 1413 Last Documented: Result Date Time Pulse Ox 99 01/23 1600 B/P 136/72 01/23 1600 Pulse 84 01/23 1600 Resp 18 01/23 1600 B/P Mean 98 01/23 1500 O2 Delivery Room air 01/23 1413 Temp 99.0 01/23 1413 Review of Vital Signs Reviewed Focused PE General/Const General/Const Awake, Alert, No acute distress Text/Dict Notes Afebrile, lying comfortably on stretcher upon my entry into the room and in NAD, nontoxic appears well clinically, shortly after I began the interview the patient began to clutch his abdomen and writhe around Ears/Nose/Throat Ears/Nose/Throat Airway patent Resp/Chest Respiratory/Chest Breath sounds NL, No respiratory distress, No rales, No rhonchi, No wheezing Cardiovascular Cardiovascular Heart rate NL, Regular rhythm, Heart sounds NL Abdomen/GI Abdomen/GI Soft, No distention Text/Dict Notes Abdomen is soft with diffuse TTP, no rebound or guarding present Skin Skin Warm, Dry Rectum Rectum/Perineum Exam deferred Neurologic Neurologic Oriented X3, Speech NL Interpretation Diagnostics Lab Results Interpretation Results Laboratory Tests 01/24/24 1416: [Embedded Image Not Available] Laboratory Tests: 01/23 01/23 1501 1416 Chemistry Sodium (134 - 147 mEq/L) 140 Potassium (3.4 - 5.0 mEq/L) 3.6 Chloride (100 - 108 mEq/L) 107 Carbon Dioxide (21 - 33 mEq/l) 27 Anion Gap (0 - 20) 9 BUN (7 - 25 mg/dL) 10 Creatinine (0.6 - 1.3 mg/dL) 1.3 Glomerular Filtr Rate (105 - 110) 71.7 L Glucose (77 - 141 mg/dL) 92 Lactic Acid (0.4 - 1.9 mmol/L) 1.5 Calcium (8.0 - 10.5 mg/dL) 9.3 Total Bilirubin (0.0 - 1.0 mg/dL) 0.50 Direct Bilirubin (0.1 - 0.3 MG/DL) 0.20 Indirect Bilirubin (MG/DL) 0.30 AST (8 - 34 IUnit/L) 25 ALT (10 - 49 IUnit/L) 31 Total Alk Phosphatase (20 - 125 IUnit/L) 77 Total Protein (6.4 - 8.2 g/dL) 8.3 H Albumin (3.4 - 5.0 g/dL) 4.20 Lipase (13 - 57 U/L) 61 H Coagulation INR (0.8 - 1.2) 1.1 PTT ([place]) (25.0 - 39.5 Seconds) 31.0 PT Patient/Control Mix (9.3 - 12.9 SECONDS) 12.3 Hematology WBC (4.5 - 11.0 x10 3/uL) 8.6 RBC (4.00 - 5.60 x10 6/uL) 4.66 Hgb (12.5 - 16.9 g/dL) 12.3 L Hct (37.5 - 50.7 %) 39.0 MCV (81.0 - 99.0 fL) 83.7 MCH (27.0 - 33.0 pg) 26.4 L MCHC (33.0 - 37.0 g/dL) 31.5 L RDW (11.5 - 14.5 %) 15.4 H Plt Count (150 - 400 x10 3/uL) 527 H MPV (7.0 - 9.0 fL) 9.9 H Neut % (Auto) (56.0 - 77.0 %) 58.5 Lymph % (Auto) (14.0 - 32.0 %) 31.2 Randolph % (Auto) (4.8 - 9.0 %) 7.7 Eos % (Auto) (0.3 - 3.7 %) 1.2 Baso % (Auto) (0.0 - 2.0 %) 0.9 Neut # (Auto) (2.0 - 7.6 x10 3/uL) 5.04 Lymph # (Auto) (1.0 - 3.8 x10 3/uL) 2.68 [place] # (Auto) (0.1 - 0.8 x10 3/uL) 0.66 Eos # (Auto) (0.0 - 0.2 x10 3/uL) 0.10 Baso # (Auto) (0.0 - 0.2 x10 3/uL) 0.08 Abs Immat Gran (auto) (0.00 - 0.03 x10 3/uL) 0.04 H Immature Gran % (0.0 - 2.0 %) 0.5 Nucleated RBC % (0 - 0 %) 0.0 Nucleated RBCs # (Man) (0.0 - 0.1 x10 3/uL) 0.00 Microbiology: Date/Time Procedure - Status Source Growth 01/24 1416 Blood Culture - RES Blood 01/23 141 Blood Culture Gram Stain - RES Blood 01/23 141 Blood Culture - RES Blood 01/23 141 Blood Culture Gram Stain - RES Blood Recent Impressions: CAT SCAN - CT ABD PELVIS W/CONT 01/23 1531 Report Impression - Status: SIGNED Entered: 01/24/2024 1616 IMPRESSION: Stomach and small bowel findings probably relate to gastroenteritis. Impression By: Amisha Whitaker M.D. Point of Care Testing Pulse Oximetry Pulse Ox % 100 On: Room air Interpretation Interpreted by me, Pulse oximetry normal Time 1413 ECG #1 Interpretation Text/Dict Note Date: 01/24/2024 Time: 1506 Independently reviewed and interpreted by me NSR, rate 79, nl axis, VIDHI, LVH, no STEMI Free Text I D Notes Free Text I D Notes Laboratory radiographic studies independently reviewed and interpreted in the medical decision-making by me. CAT SCAN - CT ABD PELVIS W/CONT 01/23 1531 Report Impression - Status: SIGNED Entered: 01/24/2024 1616 IMPRESSION: Stomach and small bowel findings probably relate to gastroenteritis. Impression By: Amisha Whitaker M.D. Re-Evaluation MDM Free Text MDM Notes Free Text MDM Notes It should be noted that the patient received IV narcotics during this ED visit. Re-Evaluation/Progress #1 Text/Dict Note Patient is aware of the plan to admit. He has repeatedly requested Dilaudid, which I will not provide in the ED. Review of external notes by me indicate the patient has been followed by pain management during his inpatient stays since 2014. He was last seen by Dr. Arceo during his 01/10/2024 - 01/15/[address] the consult with my bridge orders. Time of Re-Eval 173 ED Course Medication(s) Ordered Medication(s) Ordered: Anti-Infective Agents Sig/José Miguel Start time Last Medication Dose Route Stop Time Status Admin Ciprofloxacin/ 200 ML X1ED STA 01/23 1458 DC 10/ Dextrose IV 01/23 1557 1502 Metronidazole/Sodium 100 ML X1ED STA 01/23 1456 DC 10/ Chloride IV 10 1555 1502 Antihistamine Drugs Sig/José Miguel Start time Last Medication Dose Route Stop Time Status Admin Diphenhydramine HCl 25 MG X1ED STA 01/23 1530 DC 10/12 IV 10 1531 1535 Central Nervous System Agents Sig/José Miguel Start time Last Medication Dose Route Stop Time Status Admin Fentanyl Citrate 75 MCG X1ED STA 01/23 1731 DC 10/12 IV 10 1732 1737 Fentanyl Citrate 50 MCG X1ED STA 01/23 1542 DC 10/12 IV 10 1543 1604 Morphine Sulfate 4 MG X1ED STA 01/23 1521 DC 10/ IV 10 1522 1524 Diagnostic Agents Sig/José Miguel Start time Last Medication Dose Route Stop Time Status Admin Iopamidol 100 ML .STK-MED ONE 01/23 1544 DC 10/ IV 01/23 1545 1544 Electrolytic, Caloric, And Sneha Sig/José Miguel Start time Last Medication Dose Route Stop Time Status Admin Sodium Chloride 250 ML X1ED STA 01/23 1456 DC 01/23 IV 01/23 1457 1502 Patient Discharge Departure Vital Signs/Condition Vital Signs First Documented: Result Date Time Pulse Ox 100 01/23 1413 B/P 130/89 01/23 1413 B/P Mean 102 01/23 1413 O2 Delivery Room air 01/23 1413 Temp 99.0 01/23 1413 Pulse 96 01/23 1413 Resp 18 01/23 1413 Last Documented: Result Date Time Pulse Ox 99 01/23 1600 B/P 136/72 01/23 1600 Pulse 84 01/23 1600 Resp 18 01/23 1600 B/P Mean 98 01/23 1500 O2 Delivery Room air 01/23 1413 Temp 99.0 01/23 1413 All vital signs available at the time of this entry have been reviewed. Condition Stable Clinical Impression Clinical Impression Primary Impression: Chronic abdominal pain Secondary Impressions: Chronic pancreatitis Disposition Decision Hospitalize Hosp Physician Name Jerzy Day MD )( Accepts Hospitalization Yes )( Reason for Hospitalization Chronic abd pain, chronic pancreatitis )( Accepted Time 1739 )( Accepted Date 01/24/24 Call Information will see patient, agrees with plan Discharge/Care Plan Counseled Regarding Diagnosis, Need for admission (Auto) Prescriptions Current Visit Scripts oxyCODONE/APAP (PERCOCET 10/325 MG) 1 TAB PO Q6H PRN PRN PAIN SCALE 7-10 7 Days #28 TABS at 10[address] [facility] #:[id number] END OF REPORT [facility] 2024-01-19 08:22:00 [id number] [place] [address] PATIENT NAME: TANNER BENDER ADMIT DATE: 01/12/24 ACCOUNT NO: [id number] ROOM NO: G.596 AGE: 38 REPORT TYPE: 360 - QUERY RESPONSE DOCUMENT SEX: M ADMITTING PHYSICIAN:Henry Mares MD ATTENDING PHYSICIAN:Henry Mares MD Provider Query QUERY TEXT: Condition Nutritional Status 360MD Query related questions should be directed to: [facility] Coding Query Help-line Based on your clinical judgment, please clarify the condition(s) that represent(s) the clinical indicators listed below. The patient's Clinical Indicators include: Malnutrition screen tool score: 2 - Malnutrition risk. Admission Health History + 01/10/2024 Recent weight loss without trying: Yes. Admission Health History + 01/10/2024 How much weight have you lost: 2-13 lb. Admission Health History + 01/10/2024 Eating poorly due to decreased appetite: Yes. Admission Health History + 01/10/2024 PT REPORTS A POOR APPETITE WITH 12# WT LOSS IN A WEEK. Nutrition Assessment + 01/12/2024 BMI calculated: 19.8. Rapid Initial Assessment 01/10/2024 Supplemental intake. Nutrition Assessment + 01/12/2024 RECOMMEND ADVANCE TO A LOW FAT DIET APPROPRIATE. Nutrition Assessment + 01/12/2024 MONITOR PO, WT, LABS, BM. Nutrition Assessment + 01/12/2024 Options provided: -- Mild protein-calorie/protein-energy malnutrition, Please specify supporting clinical documentation for severity (e.g. BMI, serum albumin, total lymphocyte count, CD4+, etc.) as well as supporting conditions such as disorders that affect GI function, wasting disorders, or metabolic conditions. -- Moderate protein-calorie/protein-energy malnutrition, Please specify supporting clinical documentation for severity (e.g. BMI, serum albumin, total lymphocyte count, CD4+, etc.) as well as supporting conditions such as disorders that affect GI function, wasting disorders, or metabolic conditions. -- Severe protein-calorie/protein-energy malnutrition, Please specify supporting clinical documentation for severity (e.g. BMI, serum albumin, total lymphocyte count, CD4+, etc.) as well as supporting conditions such as disorders that affect GI function, wasting disorders, or metabolic conditions. -- Unspecified protein-calorie/protein-energy malnutrition -- Failure to thrive -- Weight Loss -- Underweight -- Other - I will add my own diagnosis -- Dismiss - Not applicable / Not valid -- Dismiss - Clinically unable to determine / Unknown -- Assign to another provider QUERY RESPONSE: The patient has moderate protein-calorie/protein-energy malnutrition. Query created by: RENNY BO on 01/17/2024 6:14 AM at 0822 PATIENT NAME: TANNER BENDER [facility] 2024-01-15 09:08:00 [facility] ([facility]) Discharge Summary REPORT#:[id number] REPORT STATUS: Signed REPORT INITIALIZATION DATE:01/15/24 TIME: 907 PATIENT: TANNER BENDER UNIT #: [id number] ROOM/BED: [place] [address] : 84 AGE: 38 SEX: M ATTEND: Henry Mares MD ADM AUTHOR: Toro Quevedo RUBBER GOODS INSPECTOR TESTER REPT SERVICE DT/TIME: 01/15/24907 * ALL edits or amendments must be made on the electronic/computer document * PCP PCP PCP: PCP: Geetha Acosta MD Discharge to: home General Information Date of admission: Observation Start Date: 01/10/24 Date of admission: 01/12/24 Discharge date: 01/15/24 Discharge diagnosis: Early/partial small bowel obstruction - resolved. Severe abd pain due to early/partial small bowel obstruction. HX of chronic pain syndrome, pancreatitis. Hospital course: 38-year-old male with a past medical history of chronic pain syndrome, pancreatitis who presents to the emergency department for abdominal pain, nausea , vomiting, decreased appetite inability to hold anything down. He tried Zofran at home. Patient states that he just had a pancreatic stent placed he called his GI doctor on was told to come in if his symptoms continue. Patient was recently just seen here for similar symptoms. Denied fever, chills, chest pain, shortness of breath, diarrhea, constipation, melena, hematochezia, dysuria , testicular pain or swelling. He had a CT abdomen and plevis which showed early /partial small bowel obstruction. he was on IVF, pain meds, Antiemetics. he was seen by surgery and GI. His KUB was negative for any obstructions. he had a Small bowel FT showed some mild delay. Per GI, No clear etiology found. Has had over 5 [address] scans this year for same reason. He was cleared to go home per GI. He will follow up him as outpt. Med Rec Med Rec Discharge meds: Continue taking these medications: ALPRAZolam (XANAX) 2 MG TAB 2 MILLIGRAM ORAL THREE TIMES A DAY. as needed for ANXIETY ALBUTEROL (PROAIR DIGIHALER 90 MCG/ACT 0.65 GM) 90 MCG INHALER 2 PUFF INHALATION RT - EVERY 6 HOURS. HYDROmorphone (DILAUDID) 2 MG TAB 2 MILLIGRAM ORAL EVERY 4 HOURS NEEDED. as needed for PAIN SCALE 7-10 AMYLASE/LIPASE/PROTEA 120,000/24,000/76,000 U (CREON 24) 24-76-120K CAP.DR 24,000 UNITS ORAL THREE TIMES DAILY WITH MEALS. METHOCARBAMOL (ROBAXIN) 750 MG TAB 750 MILLIGRAM ORAL EVERY FOUR HOURS. Comments: TAKE 1 TABLET BY MOUTH EVERY 6 HOURS NEEDED FOR MUSCLE TENSION OR S; # 28 - SIG Obtained From [facility] HYDROmorphone (DILAUDID) 2 MG TAB 2 MILLIGRAM ORAL EVERY 6 HOURS NEEDED. as needed for PAIN SCALE 7-10 Days = 7 Qty = 28 DICYCLOMINE (BENTYL) 20 MG TAB 20 MILLIGRAM ORAL FOUR TIMES A DAY. Qty = 40 This prescription has been renewed PANTOPRAZOLE DR (PROTONIX) 40 MG TAB.DR 40 MILLIGRAM ORAL DAILY. Qty = 30 Comments: TAKE 1 TABLET BY MOUTH DAILY; #30 - SIG Obtained From [facility] This prescription has been renewed Start taking the following new medications: GABAPENTIN (NEURONTIN) 100 MG CAP 100 MILLIGRAM ORAL TWICE DAILY. Qty = 30 No Refills HYDROmorphone (DILAUDID) 2 MG TAB 1 MILLIGRAM ORAL EVERY 6 HOURS NEEDED. as needed for PAIN SCALE 7-10 Days = 7 Qty = 28 No Refills Discharge Instructions PCP )( Discharge to: Home/Self Care Discharge Instructions Additional Discharge Routines: PCP Follow-Up, Clinical Operations Manager Follow-Up )( Diet: Regular )( Activity: Resume Normal Activity Follow-up Appointments PCP follow up: PCP: Geetha Acosta MD PCP follow up timeframe: In 2-3 weeks Consulting provider 1: Provider 1: Maru Morgan MD Specialty: Gastroenterology Consult follow up timeframe: In 2-3 weeks Quality: Discharge Advanced Care Plan 65 or Older Discussed with: patient Current Medications Current medication review: I attest that the foregoing medication list in the medical record is true, accurate, and complete to the best of my knowledge. at 1230 at 0046 RPT #:[id number] END OF REPORT [facility] 2024-01-15 07:14:00 [facility] Gastroenterology Progress Note REPORT#:[id number] REPORT STATUS: Signed REPORT INITIALIZATION DATE:01/15/24 TIME: 713 PATIENT: TANNER BENDER UNIT #: [id number] ROOM/BED: [place] [id number] : 84 AGE: 38 SEX: M ATTEND: Henry Mares MD ADM AUTHOR: Maru Morgan MD REPT SERVICE DT/TIME: 01/15/24713 * ALL edits or amendments must be made on the electronic/computer document * Subjective Chief complaint: LUQ abdominal pain HPI: 38-year-old male with a past medical history of chronic pain syndrome, pancreatitis who presents to the emergency department for abdominal pain, nausea , vomiting, decreased appetite inability to hold anything down. Patient states that he just had a pancreatic stent placed he called Dr Morgan on was told to come in if his symptoms continue. Patient was recently just seen here for similar symptoms. Denied fever, chills, chest pain, shortness of breath, diarrhea, constipation, melena, hematochezia, dysuria, testicular pain or swelling. He had a CT abdomen and plevis which showed early/partial small bowel obstruction. Patient report was scheduled for outpatient colonoscopy this week with Dr Morgan 01/11: vomiting coffee ground. H/H dropped. 01/13: still in pain. Small bowel FT showed some mild delay. 01/14: Still in pain. No clear etiology found. Has had over 5 [address] scans this year for same reason. At this point I suggest pain management eval and discharge withoutpt follow-up Objective Physical Exam HEENT: anicteric, atraumatic, normocephalic Neck: full range of motion, non-tender, supple/no meningismus Cardiovascular: normal S1/S2, regular rate rhythm Respiratory: aerating well, symmetric expansion, no distress Abdomen: normal bowel sounds, soft, no distention Extremities: moves all Skin: dry, intact Diagnosis, Assessment Plan Free Text A P: 1. Early/Partial SBO 2. LUQ abdominal pain - likely gastritis - PPI 3. Chronic pancreatitis s/p pancreatic stent - lipase 112, 78 SBFT delayed contrast but no obstrauction advance diet colonoscopy as outpt Pain managmenet and OK for discharge at 0818 RPT #:[id number] END OF REPORT [facility] 2024-01-14 17:33:00 [facility] Gastroenterology Progress Note REPORT#:[id number] REPORT STATUS: Signed REPORT INITIALIZATION DATE:01/14/24 TIME: 1732 PATIENT: TANNER BENDER UNIT #: [id number] ROOM/BED: [place] [address] : 84 AGE: 38 SEX: M ATTEND: Henry Mares MD ADM AUTHOR: Maru Morgan MD REPT SERVICE DT/TIME: 01/14/241732 * ALL edits or amendments must be made on the electronic/computer document * Subjective Chief complaint: LUQ abdominal pain HPI: 38-year-old male with a past medical history of chronic pain syndrome, pancreatitis who presents to the emergency department for abdominal pain, nausea , vomiting, decreased appetite inability to hold anything down. Patient states that he just had a pancreatic stent placed he called Dr Morgan on was told to come in if his symptoms continue. Patient was recently just seen here for similar symptoms. Denied fever, chills, chest pain, shortness of breath, diarrhea, constipation, melena, hematochezia, dysuria, testicular pain or swelling. He had a CT abdomen and plevis which showed early/partial small bowel obstruction. Patient report was scheduled for outpatient colonoscopy this week with Dr Morgan 01/11: vomiting coffee ground. H/H dropped. 10/2: still in pain. Small bowel FT showed some mild delay. Objective Physical Exam HEENT: anicteric, atraumatic, normocephalic Neck: full range of motion, non-tender, supple/no meningismus Cardiovascular: normal S1/S2, regular rate rhythm Respiratory: aerating well, symmetric expansion, no distress Abdomen: normal bowel sounds, soft, no distention Extremities: moves all Skin: dry, intact Diagnosis, Assessment Plan Free Text A P: 1. Early/Partial SBO 2. LUQ abdominal pain - likely gastritis - PPI 3. Chronic pancreatitis s/p pancreatic stent - lipase 112, 78 serial abdominal xray SBFT per surgery PPI IVF full liq diet once SBO resolved would plan for EGD at 1733 RPT #:[id number] END OF REPORT [facility] 2024-01-14 09:14:00 [facility] Hospitalist Progress Note REPORT#:[id number] REPORT STATUS: Signed REPORT INITIALIZATION DATE:01/14/24 TIME: 913 PATIENT: TANNER BENDER UNIT #: [id number] ROOM/BED: [place] [address] : 84 AGE: 38 SEX: M ATTEND: Henry Mares MD ADM AUTHOR: Toro Quevedo NP REPT SERVICE DT/TIME: 01/14/24913 * ALL edits or amendments must be made on the electronic/computer document * Subjective Chief complaint: He had a low grade fever. He refused contrast to drink but now aggree. He is doing ok. His pain is controlled with meds. No CP, fever, chills. BP and HR stable. Review of Systems Constitutional: Reports: fatigue, fever. Eyes: Denies: discharge, visual loss/blurred, itching, diplopia. Respiratory: Denies: PEREZ (dyspnea on exertion), hemoptysis, parox nocturnal dyspnea, pleurisy , pneumonia, productive cough (sputum). Cardiovascular: Denies: chest pain, PEREZ (dyspnea on exertion), orthopnea. GI: Reports: abdominal pain, nausea. Denies: constipation, dysphagia, hematemesis. : Denies: flank pain, hematuria, penile discharge, penile lesion. Heme: Denies: bleeding, bruising. Neuro: Denies: bowel dysfunction, change in LOC, dizziness, gait problem, lightheaded, numbness, slurred speech. Objective General VS/I O: Vital Signs: Date Time Temp Pulse Resp B/P B/P Pulse O2 O2 Flow FiO2 Mean Ox Delivery Rate 01/13 0729 55 15 132/78 95.7 94 01/13 0527 37.9 53 16 132/82 98.7 95 01/12 2347 37.2 58 16 130/82 98.2 95 01/12 1942 37.9 74 14 151/88 109.2 93 Room air 01/12 1531 37.0 52 16 132/76 95.0 96 01/12 1103 36.9 53 16 125/80 95.2 96 PATIENT WEIGHT: Weight (lb): Weight (oz): Weight (kg): 59.091 Medications: Active Meds + DC'd Last 24 Hrs Hydromorphone HCl (DILAUDID) 2 MG Q4H PRN PRN PO Pantoprazole (PROTONIX) 40 MG DAILY PO Hydrocodone Bitart/Acetaminophen (NORCO 5/325) 1 TAB Q4H PRN PRN PO Dicyclomine HCl (BENTYL) 20 MG QID PO Alprazolam (XANAX) 2 MG TID PRN PO Methocarbamol (ROBAXIN 750 MG) 750 MG Q4H PO Docusate Sodium (COLACE) 100 MG BID PO Gabapentin (NEURONTIN) 200 MG BID PO Enoxaparin Sodium (lovENOX) 40 MG Q24H SUBQ Acetaminophen (TYLENOL) 650 MG Q4H PRN PRN PO Hydralazine HCl (APRESOLINE) 10 MG Q6H PRN PRN IV Ondansetron HCl (ZOFRAN) 4 MG Q6H PRN PRN IV (DC) Sodium Chloride (SODIUM CHLORIDE 0.9%) 1,000 ML .Q10H IV (DC) Dietitian nutrition assessment The data set between the solid lines has been imported from the dietitian's assessment. BMI Calculated: 19.8 Nutrition related diagnosis: Nutrition diagnosis details: Nutrition problem: Inadequate oral intake Nutrition etiology: Chronic disease Nutrition signs and symptoms: 12# WT LOSS PER PT Nutrition prescription: 1. RECOMMEND ADVANCE TO A LOW FAT DIET APPROPRIATE. 2. HONOR FOOD PREFERENCES APPROPRIATE WITH DIET ORDER. 3. MONITOR PO, WT, LABS, BM. Dietitian name: Yecenia Talamantes, DIET Assessment completed: 01/12/24 Physical Exam General appearance: alert, awake, oriented Head/Eyes: atraumatic, clear cornea, normocephalic, PERRLA Neck: full range of motion, supple/no meningismus, no bruit/NL carotids, no JVD Cardiovascular: normal capillary refill, normal heart sounds, regular rate rhythm Respiratory: aerating well, symmetric expansion, no distress Abdomen: non-tender, normal bowel sounds Genitourinary: no flank pain, no urinary catheter Extremities: no calf tenderness, no clubbing, no cyanosis Musculoskeletal: no CVA tenderness, no muscle spasm Neuro/BOBBIN DISKER: alert, oriented X 3, CNII-XII intact Results Results: vital signs reviewed, vital signs stable, current med profile rev'd Treatment Prophylaxis Treatment Prophylaxis Oxygen: room air Diagnosis, Assessment Plan Code status: full code Plan discussed with: patient, admitting physician, consultants, nurse Free Text DxA P Notes Free text DxA P notes: Assessment and plan: Early/partial small bowel obstruction - resolved. Severe abd pain due to early/partial small bowel obstruction. HX of chronic pain syndrome, pancreatitis. Plan: Floor. Will have Bowel series. EGD soon. Continue IVF. Repeat Lab works. GI for abd pain and Nausea. Pain meds. Antiemetics. follow labs and replace as needed. Continue home meds. Monitor. Quality: Gen Med Crit Care VTE Prophylaxis VTE prophylaxis initiated: yes (SCD, Lovenox) Current Medications Current medication review: I attest that the foregoing medication list in the medical record is true, accurate, and complete to the best of my knowledge. Advanced Care Plan 65 or Older Discussed with: patient at 0916 at 3093 RPT #:[id number] END OF REPORT [facility] 2024-01-13 16:01:00 [facility] General Surgery Progress Note REPORT#:[id number] REPORT STATUS: Signed REPORT INITIALIZATION DATE:01/13/24 TIME: 1601 PATIENT: TANNER BENDER UNIT #: [id number] ROOM/BED: [place] [address] : 84 AGE: 38 SEX: M ATTEND: Henry Mares MD ADM AUTHOR: Camila Lara MD R2 REPT SERVICE DT/TIME: 01/13/24 1601 * ALL edits or amendments must be made on the electronic/computer document * Camila Lara 01/13/24 1601: Subjective Chief complaint: LUQ pain HPI: Patient refused SBFT today, did not want to drink contrast. Tolerating clears and yogurt today. Passing gas and had 1 episode of diarrhea last night. Review of Systems Free Text ROS Notes Free Text ROS Notes: Review of systems: As above; otherwise, negative to include neurologic, eyes, ENT, CV, respiratory, GI, musculoskeletal, , skin, psychiatric, hematologic, and allergy. Objective General VS/I O: Last Documented: Result Date Time Pulse Ox 96 01/12 1531 B/P 132/76 01/12 1531 B/P Mean 95.0 01/12 1531 Temp 37.0 01/12 1531 Pulse 52 01/12 1531 Resp 16 01/12 1531 O2 Delivery Room air 01/10 1118 Vital Signs Date Temp Pulse Resp B/P B/P Mean Pulse Ox FiO2 01/11-01/12 36.3-37.1 38-53 14-18 110-132/64-82 82.9-97.9 92-97 PATIENT WEIGHT: Weight (lb): Weight (oz): Weight (kg): 59.091 Medications: Active Meds + DC'd Last 24 Hrs Hydromorphone HCl (DILAUDID) 2 MG Q4H PRN PRN PO Pantoprazole (PROTONIX) 40 MG DAILY PO Hydrocodone Bitart/Acetaminophen (NORCO 5/325) 1 TAB Q4H PRN PRN PO Dicyclomine HCl (BENTYL) 20 MG QID PO Alprazolam (XANAX) 2 MG TID PRN PO Methocarbamol (ROBAXIN 750 MG) 750 MG Q4H PO Docusate Sodium (COLACE) 100 MG BID PO Gabapentin (NEURONTIN) 200 MG BID PO Enoxaparin Sodium (lovENOX) 40 MG Q24H SUBQ Acetaminophen (TYLENOL) 650 MG Q4H PRN PRN PO Hydralazine HCl (APRESOLINE) 10 MG Q6H PRN PRN IV Ondansetron HCl (ZOFRAN) 4 MG Q6H PRN PRN IV (DC) Sodium Chloride (SODIUM CHLORIDE 0.9%) 1,000 ML .Q10H IV (DC) Free Text Obj Notes Free Text Obj Notes: Constitutional: GCS 15, patient awake, alert, no acute distress, HR, BP, O2 saturation reviewed in records Eyes: pupils equal, round, reactive to light, EOMI HENT: normal cephalic, atraumatic, no facial tenderness or crepitus, normal external inspection of ears/nose, no septal hematoma Neck: trachea midline, no crepitus, thyroid without mass CV: regular rate, rhythm, bilateral radial pulses 2+, no cyanosis, no edema, no pulsatile abdominal mass Respiratory: lungs clear bilaterally, respirations even and unlabored, no tenderness to palpation, normal inspection of chest, no crepitus Abdomen: soft, LUQ tender to palpation, non-distended, guarding, non-peritoneal, no masses, no hernia noted : pelvis stable Musculoskeletal: -All extremities without focal tenderness, without deformity, with ROM intact -no cervical/thoracic/lumbar spine tenderness or step-off Skin: no lacerations or abrasions noted, skin warm to palpation Psychiatric: normal mood and affect, memory intact Neurologic: face symmetrical. Bilateral upper and lower extremity sensation intact Diagnosis, Assessment Plan Hospital course to date: 01/09: Admitted to medicine, following for gen surg is a 38yr old male who presented to the ED today with c/o severe LUQ pain that radiates to the back and "colon". Patient reports the pain started Friday and was initially intermitant but throughout the week progressed to constant, patient also report nausea/ vomiting. Abd pain and n/v worsens with food, improves with no PO intake. Reports last PO intake that was not vomited was 2 days ago. Patient also reports that he has been having diarrhea since Friday that appears "dark and tarry". Patient reports he recently had a pancreatic stent placed by Dr. Morgan on 12/20/2023 for chronic pancreatitis. After the stent placement the patient reports feeling fine until this past Friday (01/05/24). Imaging performed today resulted showing borderline dilated small bowel loops concerning for early/partial SBO. Will follow for general surgery. 01/10: No acute changes overnight. Pain mildly improved, KUB with non-obstructive bowel gas pattern, denies vomiting, mild nausea persists. OK for full liquid diet from surgical standpoint. Will continue to follow. GI eval pending. 01/11: Patient evaluated at bedside this AM. No acute overnight events. Patient reports abdominal pain feels "as if something is poking my abdomen." Patient reports watery bowel movement with dark red in color described as tarry. Patient is pending SBFT. We will continue diet and advance as tolerated. Free Text A P: Active Problems: LUQ abd pain Nausea/vomiting Other Problems: Chronic pancreatitis - recent stent 12/20/23 Mild anemia - HgB stable from previous labs Resolved Problems: Incidental findings: Chronic Medical Problems: noted DVT prophylaxis: SCDs, Lovenox GI prophylaxis: diet Lines/Oneil/ETT: PIV Consultants: General surgery, Dr. Balderrama GI, Dr. Morgan Pain mangement, Dr. Arceo Procedures: Plan: -Patient tolerating diet, passing gas, passed a loose BM overnight. No clinical signs of obstruction. General surgery will sign off, reconsult as needed Early/partial small bowel obstruction * admitted to medicine team * general surgery will sign off * GI eval pending regarding recent pancreatic stent * pain management eval pending, patient known to pain group * no plans for surgical intervention at this time, advance diet as tolerated * serial abd exams * repeat XR abd 9/29 with non-obstructive bowel/gas pattern * OK for full liquid diet from surgical standpoint * IVF while NPO - NS @ 100 * CT A/P 01/09 completed and reviewed * optimize electrolytes * multimodal pain control with IV and PO narcotic/non-narcotic pain medications * Lovenox for DVT prophylaxis * trend labs, lipase and amylase, both trending down * will defer evaluation and/or treatment on other issues to medicine and consulting teams Diet: OK for full liquids Labs: per primary PT/OT recs: pending DME: recs pending Code status: Full code Medical Decision Making: In the event the patient is incapacitated and not able to make their own medical decisions, they have elected sister Wood Ozuna, contact number [phone], to make medical decisions for them. Dispo: Admit; will continue to monitor for ICU needs or any further changes to level of care Quality: Trauma Gen Surg Advanced Care Plan 65 or Older Discussed with: patient Current Medications Current medication review: I attest that the foregoing medication list in the medical record is true, accurate, and complete to the best of my knowledge. VTE Prophylaxis - General VTE prophylaxis initiated: yes (SCD, Lovenox) Thor Balderrama 01/15/24 1325: Attestations Teaching Physician Attestation F/U visit w/ resident: I saw the patient with the resident and . . . agree with the resident's findings and plan. agree with the resident's findings and plan EXCEPT: advance diet as tolerated at 1622 at 1327 RPT #:[id number] END OF REPORT [facility] 2024-01-13 09:33:00 [facility] ([facility]) Hospitalist Progress Note REPORT#:[id number] REPORT STATUS: Signed REPORT INITIALIZATION DATE:01/13/24 TIME: 932 PATIENT: TANNER BENDER UNIT #: [id number] ROOM/BED: [place] [address] : 84 AGE: 38 SEX: M ATTEND: Henry Mares MD ADM AUTHOR: Toro Quevedo NP REPT SERVICE DT/TIME: 01/13/24 0933 * ALL edits or amendments must be made on the electronic/computer document * Subjective Chief complaint: His Hgb is low. No acute bleeding. Still having mild Abd pain, N/v. No CP, fever, chills. BP and HR stable. Review of Systems Constitutional: Reports: fatigue, generalized weakness. Allergy/Immun: Denies: anaphylaxis, itching, rhinorrhea. Respiratory: Denies: PEREZ (dyspnea on exertion), parox nocturnal dyspnea, pleurisy, productive cough (sputum), SOB. Cardiovascular: Denies: chest pain, edema, orthopnea, palpitations. GI: Denies: anorexia, diarrhea, GERD, hematochezia, hiatal hernia. : Denies: flank pain, nocturia, testicular pain, testicular swelling. Musculoskeletal: Denies: extremity pain, joint swelling, myalgias, neck pain. Endocrine: Denies: heat intolerance. Neuro: Denies: change in LOC, focal weakness, lightheaded, seizure, spinning sensation, syncope. Objective General VS/I O: Vital Signs: Date Time Temp Pulse Resp B/P B/P Pulse O2 O2 Flow FiO2 Mean Ox Delivery Rate 01/12 07 37.1 44 16 112/72 85.1 92 01/12 0444 44 110/76 87.7 01/12 0343 36.4 42 18 110/77 88.2 96 01/12 0018 36.3 42 18 130/80 96.6 97 01/12 1916 36.5 47 15 123/78 93.0 97 01/12 1916 36.5 47 15 123/78 93.0 97 01/11 1904 36.4 48 16 121/64 82.9 96 01/11 1808 45 129/82 97.9 96 01/11 1700 36.4 38 14 112/74 87.1 95 PATIENT WEIGHT: Weight (lb): Weight (oz): Weight (kg): 59.091 Medications: Active Meds + DC'd Last 24 Hrs Hydromorphone HCl (DILAUDID) 2 MG Q4H PRN PRN PO Pantoprazole (PROTONIX) 40 MG DAILY PO Hydromorphone HCl (DILAUDID) 1 MG Q4H PRN PRN IV (DC) Hydrocodone Bitart/Acetaminophen (NORCO 5/325) 1 TAB Q4H PRN PRN PO Hydrocodone Bitart/Acetaminophen (NORCO 10/325) 1 TAB Q4H PRN PRN PO (DC ) Dicyclomine HCl (BENTYL) 20 MG QID PO Alprazolam (XANAX) 2 MG TID PRN PO Methocarbamol (ROBAXIN 750 MG) 750 MG Q4H PO Docusate Sodium (COLACE) 100 MG BID PO Gabapentin (NEURONTIN) 200 MG BID PO Enoxaparin Sodium (lovENOX) 40 MG Q24H SUBQ Acetaminophen (TYLENOL) 650 MG Q4H PRN PRN PO Hydralazine HCl (APRESOLINE) 10 MG Q6H PRN PRN IV Ondansetron HCl (ZOFRAN) 4 MG Q6H PRN PRN IV Sodium Chloride (SODIUM CHLORIDE 0.9%) 1,000 ML .Q10H IV Dietitian nutrition assessment The data set between the solid lines has been imported from the dietitian's assessment. BMI Calculated: 19.8 Nutrition related diagnosis: Nutrition diagnosis details: Nutrition problem: Inadequate oral intake Nutrition etiology: Chronic disease Nutrition signs and symptoms: 12# WT LOSS PER PT Nutrition prescription: 1. RECOMMEND ADVANCE TO A LOW FAT DIET APPROPRIATE. 2. HONOR FOOD PREFERENCES APPROPRIATE WITH DIET ORDER. 3. MONITOR PO, WT, LABS, BM. Dietitian name: Yecenia Talamantes, DIET Assessment completed: 01/12/24 Physical Exam General appearance: alert, awake, oriented Head/Eyes: atraumatic, clear cornea, normocephalic, PERRLA Neck: full range of motion, supple/no meningismus, no bruit/NL carotids, no JVD Cardiovascular: normal capillary refill, normal heart sounds, regular rate rhythm Respiratory: aerating well, symmetric expansion, no distress Abdomen: non-tender, normal bowel sounds Genitourinary: no flank pain, no urinary catheter Extremities: no calf tenderness, no clubbing, no cyanosis Musculoskeletal: no CVA tenderness, no muscle spasm Neuro/BOBBIN DISKER: alert, oriented X 3, CNII-XII intact Results Results: labs reviewed, vital signs reviewed, vital signs stable, current med profile rev'd Treatment Prophylaxis Treatment Prophylaxis Oxygen: room air Diagnosis, Assessment Plan Code status: full code Plan discussed with: patient, admitting physician, consultants, nurse Free Text DxA P Notes Free text DxA P notes: Assessment and plan: Early/partial small bowel obstruction - resolved. Severe abd pain due to early/partial small bowel obstruction. HX of chronic pain syndrome, pancreatitis. Plan: Floor. H H Dropped. Will go for EGD soon. Clear diet. GI for abd pain and Nausea. Pain meds. Antiemetics. follow labs and replace as needed. Continue home meds. Monitor. Quality: Gen Med Crit Care VTE Prophylaxis VTE prophylaxis initiated: yes (SCD, Lovenox) Current Medications Current medication review: I attest that the foregoing medication list in the medical record is true, accurate, and complete to the best of my knowledge. Advanced Care Plan 65 or Older Discussed with: patient at 0935 at 2228 RPT #:[id number] END OF REPORT [facility] 2024-01-13 07:59:00 [facility]) General Surgery Progress Note REPORT#:[id number] REPORT STATUS: Signed REPORT INITIALIZATION DATE:01/13/24 TIME: 758 PATIENT: TANNER BENDER UNIT #: [id number] ROOM/BED: [place] [id number] : 84 AGE: 38 SEX: M ATTEND: Henry Mares MD ADM AUTHOR: Camila Lara MD R2 REPT SERVICE DT/TIME: 01/13/24 0759 * ALL edits or amendments must be made on the electronic/computer document * Camila Lara 01/13/24 0759: Subjective Chief complaint: LUQ pain HPI: NAEON. Patient states that he has persistent pain in LUQ since stent placement in [facility]. Tolerating sips of clears and yogurt. Endorses 1 episode of diarrhea last night. Plan for SBFT today. Review of Systems Free Text ROS Notes Free Text ROS Notes: Review of systems: As above; otherwise, negative to include neurologic, eyes, ENT, CV, respiratory, GI, musculoskeletal, , skin, psychiatric, hematologic, and allergy. Objective General VS/I O: Last Documented: Result Date Time Pulse Ox 92 01/12 725 B/P 112/72 01/12 725 B/P Mean 85.1 01/12 725 Temp 37.1 01/12 725 Pulse 44 01/12 725 Resp 16 01/12 725 O2 Delivery Room air 01/10 1118 Vital Signs Date Temp Pulse Resp B/P B/P Mean Pulse Ox FiO2 01/11-01/12 36.3-37.1 38-48 14-18 110-130/64-82 82.9-97.9 92-97 PATIENT WEIGHT: Weight (lb): Weight (oz): Weight (kg): 59.091 Medications: Active Meds + DC'd Last 24 Hrs Hydromorphone HCl (DILAUDID) 2 MG Q4H PRN PRN PO Pantoprazole (PROTONIX) 40 MG DAILY PO Hydromorphone HCl (DILAUDID) 1 MG Q4H PRN PRN IV (DC) Hydrocodone Bitart/Acetaminophen (NORCO 5/325) 1 TAB Q4H PRN PRN PO Hydrocodone Bitart/Acetaminophen (NORCO 10/325) 1 TAB Q4H PRN PRN PO (DC ) Dicyclomine HCl (BENTYL) 20 MG QID PO Alprazolam (XANAX) 2 MG TID PRN PO Methocarbamol (ROBAXIN 750 MG) 750 MG Q4H PO Docusate Sodium (COLACE) 100 MG BID PO Gabapentin (NEURONTIN) 200 MG BID PO Enoxaparin Sodium (lovENOX) 40 MG Q24H SUBQ Acetaminophen (TYLENOL) 650 MG Q4H PRN PRN PO Hydralazine HCl (APRESOLINE) 10 MG Q6H PRN PRN IV Ondansetron HCl (ZOFRAN) 4 MG Q6H PRN PRN IV Sodium Chloride (SODIUM CHLORIDE 0.9%) 1,000 ML .Q10H IV Nutrtion assessment: The data set between the solid lines has been imported from the dietitian's assessment. BMI Calculated: 19.8 Nutrition related diagnosis: Nutrition diagnosis details: Nutrition problem: Inadequate oral intake Nutrition etiology: Chronic disease Nutrition signs and symptoms: 12# WT LOSS PER PT Nutrition prescription: 1. RECOMMEND ADVANCE TO A LOW FAT DIET APPROPRIATE. 2. HONOR FOOD PREFERENCES APPROPRIATE WITH DIET ORDER. 3. MONITOR PO, WT, LABS, BM. Dietitian name: Yecenia Talamantes, DIET Assessment completed: 01/12/24 Free Text Obj Notes Free Text Obj Notes: Constitutional: GCS 15, patient awake, alert, no acute distress, HR, BP, O2 saturation reviewed in records Eyes: pupils equal, round, reactive to light, EOMI HENT: normal cephalic, atraumatic, no facial tenderness or crepitus, normal external inspection of ears/nose, no septal hematoma Neck: trachea midline, no crepitus, thyroid without mass CV: regular rate, rhythm, bilateral radial pulses 2+, no cyanosis, no edema, no pulsatile abdominal mass Respiratory: lungs clear bilaterally, respirations even and unlabored, no tenderness to palpation, normal inspection of chest, no crepitus Abdomen: soft, LUQ tender to palpation, non-distended, guarding, non-peritoneal, no masses, no hernia noted : pelvis stable Musculoskeletal: -All extremities without focal tenderness, without deformity, with ROM intact -no cervical/thoracic/lumbar spine tenderness or step-off Skin: no lacerations or abrasions noted, skin warm to palpation Psychiatric: normal mood and affect, memory intact Neurologic: face symmetrical. Bilateral upper and lower extremity sensation intact Diagnosis, Assessment Plan Hospital course to date: 01/09: Admitted to medicine, following for gen surg is a 38yr old male who presented to the ED today with c/o severe LUQ pain that radiates to the back and "colon". Patient reports the pain started Friday and was initially intermitant but throughout the week progressed to constant, patient also report nausea/ vomiting. Abd pain and n/v worsens with food, improves with no PO intake. Reports last PO intake that was not vomited was 2 days ago. Patient also reports that he has been having diarrhea since Friday that appears "dark and tarry". Patient reports he recently had a pancreatic stent placed by Dr. Morgan on 12/20/2023 for chronic pancreatitis. After the stent placement the patient reports feeling fine until this past Friday (01/05/24). Imaging performed today resulted showing borderline dilated small bowel loops concerning for early/partial SBO. Will follow for general surgery. 01/10: No acute changes overnight. Pain mildly improved, KUB with non-obstructive bowel gas pattern, denies vomiting, mild nausea persists. OK for full liquid diet from surgical standpoint. Will continue to follow. GI eval pending. 01/11: Patient evaluated at bedside this AM. No acute overnight events. Patient reports abdominal pain feels "as if something is poking my abdomen." Patient reports watery bowel movement with dark red in color described as tarry. Patient is pending SBFT. We will continue diet and advance as tolerated. Free Text A P: Active Problems: LUQ abd pain Nausea/vomiting Other Problems: Chronic pancreatitis - recent stent 12/20/23 Mild anemia - HgB stable from previous labs Resolved Problems: Incidental findings: Chronic Medical Problems: noted DVT prophylaxis: SCDs, Lovenox GI prophylaxis: diet Lines/Oneil/ETT: PIV Consultants: General surgery, Dr. Balderrama GI, Dr. Morgan Pain mangement, Dr. Arceo Procedures: Plan: -Pending SBFT today -Continue diet, advance as tolerated Early/partial small bowel obstruction * admitted to medicine team * following for general surgery * GI eval pending regarding recent pancreatic stent * pain management eval pending, patient known to pain group * no plans for surgical intervention at this time * serial abd exams * repeat XR abd 01/10 with non-obstructive bowel/gas pattern * NGT to LWS if patient begins having nausea/vomiting * tentative plans for SBFT today due to no improvement with symptoms * OK for full liquid diet from surgical standpoint * IVF while NPO - NS @ 100 * CT A/P 01/09 completed and reviewed * optimize electrolytes * multimodal pain control with IV and PO narcotic/non-narcotic pain medications * Lovenox for DVT prophylaxis * trend labs, lipase and amylase, both trending down * will defer evaluation and/or treatment on other issues to medicine and consulting teams Diet: OK for full liquids Labs: per primary PT/OT recs: pending DME: recs pending Code status: Full code Medical Decision Making: In the event the patient is incapacitated and not able to make their own medical decisions, they have elected sister Wood Ozuna, contact number [phone], to make medical decisions for them. Dispo: Admit; will continue to monitor for ICU needs or any further changes to level of care Quality: Trauma Gen Surg Advanced Care Plan 65 or Older Discussed with: patient Current Medications Current medication review: I attest that the foregoing medication list in the medical record is true, accurate, and complete to the best of my knowledge. VTE Prophylaxis - General VTE prophylaxis initiated: yes (SCD, Lovenox) Thor Balderrama 01/13/24 1505: Attestations Teaching Physician Attestation F/U visit w/ resident: The patient discussed with the resident and . . . agree with the resident's findings and plan. agree with the resident's findings and plan EXCEPT: at 1003 at 1509 RPT #:[id number] END OF REPORT [facility] 2024-01-12 16:45:00 [facility] ([facility]) General Surgery Progress Note REPORT#:[id number] REPORT STATUS: Signed REPORT INITIALIZATION DATE:01/12/24 TIME: 1644 PATIENT: TANNER BENDER UNIT #: [id number] ROOM/BED: [place] [address] : 84 AGE: 38 SEX: M ATTEND: Henry Mares MD ADM AUTHOR: Walter Ramirez MD R1 REPT SERVICE DT/TIME: 01/12/24 1645 * ALL edits or amendments must be made on the electronic/computer document * Walter Ramirez 01/12/24 1645: Subjective Chief complaint: LUQ pain HPI: Patient evaluated at bedside this AM. No acute overnight events. Patient reports abdominal pain feels "as if something is poking my abdomen." Patient reports watery bowel movement with dark red in color described as tarry. Patient is pending SBFT. We will continue diet and advance as tolerated. Review of Systems Free Text ROS Notes Free Text ROS Notes: Review of systems: As above; otherwise, negative to include neurologic, eyes, ENT, CV, respiratory, GI, musculoskeletal, , skin, psychiatric, hematologic, and allergy. Objective General VS/I O: Last Documented: Result Date Time Pulse Ox 96 01/11 0745 B/P 122/84 01/11 0745 B/P Mean 96.9 01/11 0745 Temp 36.7 01/11 0745 Pulse 52 01/11 0745 Resp 16 01/11 0745 O2 Delivery Room air 01/10 1118 Vital Signs Date Temp Pulse Resp B/P B/P Mean Pulse Ox FiO2 01/10-01/11 36.3-36.7 45-56 16-18 98-133/61-84 73.2-96.9 95-96 PATIENT WEIGHT: Weight (lb): Weight (oz): Weight (kg): 59.091 Medications: Active Meds + DC'd Last 24 Hrs Hydromorphone HCl (DILAUDID) 2 MG Q4H PRN PRN PO Pantoprazole (PROTONIX) 40 MG DAILY PO Hydromorphone HCl (DILAUDID) 1 MG Q4H PRN PRN IV (DC) Hydrocodone Bitart/Acetaminophen (NORCO 5/325) 1 TAB Q4H PRN PRN PO Hydrocodone Bitart/Acetaminophen (NORCO 10/325) 1 TAB Q4H PRN PRN PO (DC ) Dicyclomine HCl (BENTYL) 20 MG QID PO Alprazolam (XANAX) 2 MG TID PRN PO Methocarbamol (ROBAXIN 750 MG) 750 MG Q4H PO Docusate Sodium (COLACE) 100 MG BID PO Gabapentin (NEURONTIN) 200 MG BID PO Enoxaparin Sodium (lovENOX) 40 MG Q24H SUBQ Acetaminophen (TYLENOL) 650 MG Q4H PRN PRN PO Hydralazine HCl (APRESOLINE) 10 MG Q6H PRN PRN IV Ondansetron HCl (ZOFRAN) 4 MG Q6H PRN PRN IV Sodium Chloride (SODIUM CHLORIDE 0.9%) 1,000 ML .Q10H IV Results Findings/Data: Laboratory Tests 01/12/24737: [Embedded Image Not Available] Laboratory Tests 01/11 738 Chemistry Sodium (134 - 147 mEq/L) 142 Potassium (3.4 - 5.0 mEq/L) 3.8 Chloride (100 - 108 mEq/L) 112 H Carbon Dioxide (21 - 33 mEq/l) 26 Anion Gap (0 - 20) 8 BUN (7 - 25 mg/dL) 6 L Creatinine (0.6 - 1.3 mg/dL) 1.0 Glomerular Filtr Rate (105 - 110) 98.2 L Glucose (77 - 141 mg/dL) 80 Calcium (8.0 - 10.5 mg/dL) 7.9 L Magnesium (1.6 - 2.6 mg/dL) 1.96 Total Bilirubin (0.0 - 1.0 mg/dL) 0.80 AST (8 - 34 IUnit/L) 14 ALT (10 - 49 IUnit/L) 12 Total Alk Phosphatase (20 - 125 IUnit/L) 57 Total Protein (6.4 - 8.2 g/dL) 5.5 L Albumin (3.4 - 5.0 g/dL) 2.80 L Laboratory Tests 01/11 738 Hematology WBC (4.5 - 11.0 x10 3/uL) 4.5 RBC (4.00 - 5.60 x10 6/uL) 3.73 L Hgb (12.5 - 16.9 g/dL) 10.0 L Hct (37.5 - 50.7 %) 31.6 L MCV (81.0 - 99.0 fL) 84.7 MCH (27.0 - 33.0 pg) 26.8 L MCHC (33.0 - 37.0 g/dL) 31.6 L RDW (11.5 - 14.5 %) 15.5 H Plt Count (150 - 400 x10 3/uL) 293 MPV (7.0 - 9.0 fL) 10.5 H Neut % (Auto) (56.0 - 77.0 %) 34.1 L Lymph % (Auto) (14.0 - 32.0 %) 54.1 H Randolph % (Auto) (4.8 - 9.0 %) 6.9 Eos % (Auto) (0.3 - 3.7 %) 3.6 Baso % (Auto) (0.0 - 2.0 %) 1.3 Neut # (Auto) (2.0 - 7.6 x10 3/uL) 1.52 L Lymph # (Auto) (1.0 - 3.8 x10 3/uL) 2.42 Randolph # (Auto) (0.1 - 0.8 x10 3/uL) 0.31 Eos # (Auto) (0.0 - 0.2 x10 3/uL) 0.16 Baso # (Auto) (0.0 - 0.2 x10 3/uL) 0.06 Abs Immat Gran (auto) (0.00 - 0.03 x10 3/uL) 0.00 Immature Gran % (0.0 - 2.0 %) 0.0 Nucleated RBC % (0 - 0 %) 0.0 Nucleated RBCs # (Man) (0.0 - 0.1 x10 3/uL) 0.00 Free Text Obj Notes Free Text Obj Notes: Constitutional: GCS 15, patient awake, alert, no acute distress, HR, BP, O2 saturation reviewed in records Eyes: pupils equal, round, reactive to light, EOMI HENT: normal cephalic, atraumatic, no facial tenderness or crepitus, normal external inspection of ears/nose, no septal hematoma Neck: trachea midline, no crepitus, thyroid without mass CV: regular rate, rhythm, bilateral radial pulses 2+, no cyanosis, no edema, no pulsatile abdominal mass Respiratory: lungs clear bilaterally, respirations even and unlabored, no tenderness to palpation, normal inspection of chest, no crepitus Abdomen: soft, LUQ tender to palpation, non-distended, guarding, non-peritoneal, no masses, no hernia noted : pelvis stable Musculoskeletal: -All extremities without focal tenderness, without deformity, with ROM intact -no cervical/thoracic/lumbar spine tenderness or step-off Skin: no lacerations or abrasions noted, skin warm to palpation Psychiatric: normal mood and affect, memory intact Neurologic: face symmetrical. Bilateral upper and lower extremity sensation intact Diagnosis, Assessment Plan Hospital course to date: 01/09: Admitted to medicine, following for gen surg is a 38yr old male who presented to the ED today with c/o severe LUQ pain that radiates to the back and "colon". Patient reports the pain started Friday and was initially intermitant but throughout the week progressed to constant, patient also report nausea/ vomiting. Abd pain and n/v worsens with food, improves with no PO intake. Reports last PO intake that was not vomited was 2 days ago. Patient also reports that he has been having diarrhea since Friday that appears "dark and tarry". Patient reports he recently had a pancreatic stent placed by Dr. Morgan on 12/20/2023 for chronic pancreatitis. After the stent placement the patient reports feeling fine until this past Friday (01/05/24). Imaging performed today resulted showing borderline dilated small bowel loops concerning for early/partial SBO. Will follow for general surgery. 01/10: No acute changes overnight. Pain mildly improved, KUB with non-obstructive bowel gas pattern, denies vomiting, mild nausea persists. OK for full liquid diet from surgical standpoint. Will continue to follow. GI eval pending. 01/11: Patient evaluated at bedside this AM. No acute overnight events. Patient reports abdominal pain feels "as if something is poking my abdomen." Patient reports watery bowel movement with dark red in color described as tarry. Patient is pending SBFT. We will continue diet and advance as tolerated. Free Text A P: Active Problems: LUQ abd pain Nausea/vomiting Other Problems: Chronic pancreatitis - recent stent 12/20/23 Mild anemia - HgB stable from previous labs Resolved Problems: Incidental findings: Chronic Medical Problems: noted DVT prophylaxis: SCDs, Lovenox GI prophylaxis: diet Lines/Oneil/ETT: PIV Consultants: General surgery, Dr. Balderrama GI, Dr. Morgan Pain mangement, Dr. Arceo Procedures: Plan: -Pending SBFT -Continue diet, advance as tolerated Early/partial small bowel obstruction * admitted to medicine team * following for general surgery * GI eval pending regarding recent pancreatic stent * pain management eval pending, patient kown to pain group * no plans for surgical intervention at this time * serial abd exams * repeat XR abd 01/10 with non-obstructive bowel/gas pattern * NGT to LWS if patient begins having nausea/vomiting * tentative plans for SBFT Mon 01/11 if no improvement with symptoms * OK for full liquid diet from surgical standpoint * IVF while NPO - NS @ 100 * CT A/P 01/09 completed and reviewed * optimize electrolytes * multimodal pain control with IV and PO narcotic/non-narcotic pain medications * Lovenox for DVT prophylaxis * trend labs, lipase 112 and amylase 248 on admission (01/09), trending down * will defer evaluation and/or treatment on other issues to medicine and consulting teams Diet: OK for full liquids Labs: per primary PT/OT recs: pending DME: recs pending Code status: Full code Medical Decision Making: In the event the patient is incapacitated and not able to make their own medical decisions, they have elected sister Wood Ozuna, contact number [phone], to make medical decisions for them. Dispo: Admit; will continue to monitor for ICU needs or any further changes to level of care Quality: Trauma Gen Surg Advanced Care Plan 65 or Older Discussed with: patient Current Medications Current medication review: I attest that the foregoing medication list in the medical record is true, accurate, and complete to the best of my knowledge. VTE Prophylaxis - General VTE prophylaxis initiated: yes (SCD, Lovenox) Attestations Attestation needed: teaching physician Davion Dior 01/13/24 8037: Attestations Physician Attestation Agree w/findings plan: I was present with the resident physician during the history and examination. I discussed the case with the resident physician and agree with the findings and plan as documented in the resident physician's note. I agree with above assessment. Plan: I agree with above plan Labs reviewed. Pertinent imaging personally reviewed. Discussed plan with other members of the healthcare team. at 1649 at 1386 [facility] #:[id number] END OF REPORT [facility] 2024-01-12 12:56:00 [facility] ([facility]) Gastroenterology Progress Note REPORT#:[id number] REPORT STATUS: Signed REPORT INITIALIZATION DATE:01/12/24 TIME: 1255 PATIENT: TANNER BENDER UNIT #: [id number] ROOM/BED: [place] [id number] : 84 AGE: 38 SEX: M ATTEND: Henry Mares MD ADM AUTHOR: Maru Morgan MD REPT SERVICE DT/TIME: 01/12/24 1256 * ALL edits or amendments must be made on the electronic/computer document * Subjective Chief complaint: LUQ abdominal pain HPI: 38-year-old male with a past medical history of chronic pain syndrome, pancreatitis who presents to the emergency department for abdominal pain, nausea , vomiting, decreased appetite inability to hold anything down. Patient states that he just had a pancreatic stent placed he called Dr Morgan on was told to come in if his symptoms continue. Patient was recently just seen here for similar symptoms. Denied fever, chills, chest pain, shortness of breath, diarrhea, constipation, melena, hematochezia, dysuria, testicular pain or swelling. He had a CT abdomen and plevis which showed early/partial small bowel obstruction. Patient report was scheduled for outpatient colonoscopy this week with Dr Morgan 01/11: vomiting coffee ground. H/H dropped. Objective Physical Exam HEENT: anicteric, atraumatic, normocephalic Neck: full range of motion, non-tender, supple/no meningismus Cardiovascular: normal S1/S2, regular rate rhythm Respiratory: aerating well, symmetric expansion, no distress Abdomen: normal bowel sounds, soft, no distention Extremities: moves all Skin: dry, intact Diagnosis, Assessment Plan Free Text A P: 1. Early/Partial SBO 2. LUQ abdominal pain - likely gastritis - PPI 3. Chronic pancreatitis s/p pancreatic stent - lipase 112, 78 serial abdominal xray SBFT per surgery PPI IVF full liq diet once SBO resolved would plan for EGD at 1258 RPT #:[id number] END OF REPORT [facility] 2024-01-12 07:21:00 [facility] ([facility]) Hospitalist Progress Note REPORT#:[id number] REPORT STATUS: Signed REPORT INITIALIZATION DATE:01/12/24 TIME: 720 PATIENT: TANNER BENDER UNIT #: [id number] ROOM/BED: [place] [address] : 84 AGE: 38 SEX: M ATTEND: Henry Mares MD ADM AUTHOR: Toro Quevedo RUBBER GOODS INSPECTOR TESTER REPT SERVICE DT/TIME: 01/12/24720 * ALL edits or amendments must be made on the electronic/computer document * Subjective Chief complaint: He is c/o mild Abd pain, N/v. No CP, fever, chills. Tolerating clear. BP and HR stable. Review of Systems Constitutional: Reports: fatigue, generalized weakness. Eyes: Denies: redness, itching, diplopia. Respiratory: Denies: PEREZ (dyspnea on exertion), parox nocturnal dyspnea, pleuritic pain, productive cough (sputum). Cardiovascular: Denies: PEREZ (dyspnea on exertion), orthopnea, parox nocturnal dyspnea. GI: Reports: abdominal pain, nausea. Denies: diarrhea, hematemesis, hiatal hernia. : Denies: flank pain, hematuria, penile discharge, penile lesion, testicular swelling. Musculoskeletal: Denies: extremity pain, joint pain, joint swelling, lumbar pain, neck pain. Endocrine: Denies: heat intolerance, polydipsia, polyphagia, polyuria. Neuro: Denies: bowel dysfunction, confusion, lightheaded, syncope. Psych: Denies: anxiety, delusional, hostile. Objective General VS/I O: Vital Signs: Date Time Temp Pulse Resp B/P B/P Pulse O2 O2 Flow FiO2 Mean Ox Delivery Rate 01/11 0449 45 122/76 91.2 01/11 0343 36.3 56 17 98/61 73.2 95 01/11 0001 36.5 48 17 113/68 83.2 95 01/10 2042 46 128/79 95.2 01/10 1906 36.3 51 18 133/79 96.8 96 01/10 1611 36.5 50 14 129/82 97.6 98 01/10 1118 36.5 46 18 129/80 96.2 96 Room air PATIENT WEIGHT: Weight (lb): Weight (oz): Weight (kg): 59.091 Medications: Active Meds + DC'd Last 24 Hrs Pantoprazole (PROTONIX) 40 MG DAILY PO Hydromorphone HCl (DILAUDID) 1 MG Q4H PRN PRN IV Hydrocodone Bitart/Acetaminophen (NORCO 5/325) 1 TAB Q4H PRN PRN PO Hydrocodone Bitart/Acetaminophen (NORCO 10/325) 1 TAB Q4H PRN PRN PO Hydromorphone HCl (DILAUDID) 1 MG Q3H PRN PRN IV (DC) Dicyclomine HCl (BENTYL) 20 MG QID PO Alprazolam (XANAX) 2 MG TID PRN PO Methocarbamol (ROBAXIN 750 MG) 750 MG Q4H PO Docusate Sodium (COLACE) 100 MG BID PO Gabapentin (NEURONTIN) 200 MG BID PO Enoxaparin Sodium (lovENOX) 40 MG Q24H SUBQ Hydromorphone HCl (DILAUDID) 0.5 MG Q3H PRN PRN IV (DC) Acetaminophen (TYLENOL) 650 MG Q4H PRN PRN PO Hydralazine HCl (APRESOLINE) 10 MG Q6H PRN PRN IV Ondansetron HCl (ZOFRAN) 4 MG Q6H PRN PRN IV Sodium Chloride (SODIUM CHLORIDE 0.9%) 1,000 ML .Q10H IV Physical Exam General appearance: alert, awake Head/Eyes: atraumatic, clear cornea, normocephalic, PERRLA Neck: full range of motion, supple/no meningismus, no bruit/NL carotids, no JVD Cardiovascular: normal capillary refill, normal heart sounds, regular rate rhythm Respiratory: aerating well, symmetric expansion, no distress Abdomen: non-tender, normal bowel sounds Genitourinary: no flank pain, no urinary catheter Extremities: no calf tenderness, no clubbing, no cyanosis Musculoskeletal: no CVA tenderness, no muscle spasm Neuro/BOBBIN DISKER: alert, oriented X 3, CNII-XII intact Results Results: labs reviewed, vital signs reviewed, vital signs stable, current med profile rev'd Treatment Prophylaxis Treatment Prophylaxis Oxygen: room air Diagnosis, Assessment Plan Code status: full code Plan discussed with: patient, admitting physician, consultants, nurse Free Text DxA P Notes Free text DxA P notes: Assessment and plan: Early/partial small bowel obstruction - resolved. Severe abd pain due to early/partial small bowel obstruction. HX of chronic pain syndrome, pancreatitis. Plan: Floor. Clear diet. GI for abd pain and Nausea. Pain meds. Antiemetics. follow labs and replace as needed. Continue home meds. Monitor. Quality: Gen Med Crit Care VTE Prophylaxis VTE prophylaxis initiated: yes (SCD, Lovenox) Current Medications Current medication review: I attest that the foregoing medication list in the medical record is true, accurate, and complete to the best of my knowledge. Advanced Care Plan 65 or Older Discussed with: patient at 0722 at 2242 RPT #:[id number] END OF REPORT [facility] 2024-01-11 14:36:00 [facility] ([facility]) GE Consultation Note REPORT#:[id number] REPORT STATUS: Signed REPORT INITIALIZATION DATE:01/11/24 TIME: 1435 PATIENT: TANNER BENDER UNIT #: [id number] ROOM/BED: [place] [address] : 84 AGE: 38 SEX: M ATTEND: Henry Mares MD ADM AUTHOR: Pallavi Spring REPT SERVICE DT/TIME: 01/11/24 143 * ALL edits or amendments must be made on the electronic/computer document * Pallavi Spring 01/11/24 1436: History of Present Illness Chief complaint: LUQ abdominal pain HPI: 38-year-old male with a past medical history of chronic pain syndrome, pancreatitis who presents to the emergency department for abdominal pain, nausea , vomiting, decreased appetite inability to hold anything down. Patient states that he just had a pancreatic stent placed he called Dr Morgan on was told to come in if his symptoms continue. Patient was recently just seen here for similar symptoms. Denied fever, chills, chest pain, shortness of breath, diarrhea, constipation, melena, hematochezia, dysuria, testicular pain or swelling. He had a CT abdomen and plevis which showed early/partial small bowel obstruction. Patient report was scheduled for outpatient colonoscopy this week with Dr Morgan History - Adult longitudinal Past medical history: Reports: Asthma, Chronic pain, Pancreatitis (Chronic). Additional medical history: Anxiety Past surgical history: Denies: Abdominal surgery. Family history: Denies: CAD < 40 yrs old. Additional family history: n/c Alcohol use: Denies EtOH use Drug use: Denies recreational drugs Smoking status for patients 13 years old or older: Former Smoker Other social history: Primary family support Additional social history: family hx- unknown Allergies: Coded Allergies: Penicillins (Severe, THROAT SWELLS UP 01/10/24) Review of Systems GI: Reports: abdominal pain, nausea. All systems rev neg: except as marked Objective Physical Exam VS/I O: Last Documented: Result Date Time Pulse Ox 98 01/10 1611 B/P 129/82 01/10 1611 B/P Mean 97.6 01/10 1611 Temp 97.7 01/10 1611 Pulse 50 01/10 1611 Resp 14 01/10 1611 O2 Delivery Room air 01/10 1118 24 hour I O ending at 0700: 01/10 0700 01/09 1900 Intake Total Output Total Balance Number Voids 3 Output, Emesis Patient 59.091 kg Weight Weight Stated/Reported Measurement Method PATIENT WEIGHT: Weight (lb): Weight (oz): Weight (kg): 59.091 Medications: Active Meds + DC'd Last 24 Hrs Pantoprazole (PROTONIX) 40 MG DAILY PO Hydromorphone HCl (DILAUDID) 1 MG Q4H PRN PRN IV Hydrocodone Bitart/Acetaminophen (NORCO 5/325) 1 TAB Q4H PRN PRN PO Hydrocodone Bitart/Acetaminophen (NORCO 10/325) 1 TAB Q4H PRN PRN PO Hydromorphone HCl (DILAUDID) 1 MG Q3H PRN PRN IV (DC) Dicyclomine HCl (BENTYL) 20 MG QID PO Alprazolam (XANAX) 2 MG TID PRN PO Methocarbamol (ROBAXIN 750 MG) 750 MG Q4H PO Docusate Sodium (COLACE) 100 MG BID PO Gabapentin (NEURONTIN) 200 MG BID PO Enoxaparin Sodium (lovENOX) 40 MG Q24H SUBQ Hydromorphone HCl (DILAUDID) 0.5 MG Q3H PRN PRN IV (DC) Acetaminophen (TYLENOL) 650 MG Q4H PRN PRN PO Hydralazine HCl (APRESOLINE) 10 MG Q6H PRN PRN IV Ondansetron HCl (ZOFRAN) 4 MG Q6H PRN PRN IV Sodium Chloride (SODIUM CHLORIDE 0.9%) 1,000 ML .Q10H IV General appearance: alert, awake, oriented HEENT: anicteric, atraumatic, normocephalic Neck: full range of motion, non-tender, supple/no meningismus Cardiovascular: normal S1/S2, regular rate rhythm Respiratory: aerating well, symmetric expansion, no distress Abdomen: normal bowel sounds, soft, no distention Extremities: moves all Skin: dry, intact Results Findings/Data: Laboratory Tests 01/11/24427: [Embedded Image Not Available] Laboratory Tests 01/11 428 Chemistry Sodium (134 - 147 mEq/L) 144 Potassium (3.4 - 5.0 mEq/L) 3.9 Chloride (100 - 108 mEq/L) 112 H Carbon Dioxide (21 - 33 mEq/l) 26 Anion Gap (0 - 20) 10 BUN (7 - 25 mg/dL) < 5 L Creatinine (0.6 - 1.3 mg/dL) 0.8 Glomerular Filtr Rate (105 - 110) 115.5 H Glucose (77 - 141 mg/dL) 82 Calcium (8.0 - 10.5 mg/dL) 8.2 Phosphorus (2.5 - 4.9 MG/DL) 3.9 Magnesium (1.6 - 2.6 mg/dL) 2.00 Total Bilirubin (0.0 - 1.0 mg/dL) 1.00 AST (8 - 34 IUnit/L) 14 ALT (10 - 49 IUnit/L) 12 Total Alk Phosphatase (20 - 125 IUnit/L) 57 Total Protein (6.4 - 8.2 g/dL) 6.1 L Albumin (3.4 - 5.0 g/dL) 3.30 L Amylase (30 - 118 UNITS/L) 176 H Lipase (13 - 57 U/L) 73 H Laboratory Tests 01/10 0428 Hematology WBC (4.5 - 11.0 x10 3/uL) 5.5 RBC (4.00 - 5.60 x10 6/uL) 3.94 L Hgb (12.5 - 16.9 g/dL) 10.3 L Hct (37.5 - 50.7 %) 33.1 L MCV (81.0 - 99.0 fL) 84.0 MCH (27.0 - 33.0 pg) 26.1 L MCHC (33.0 - 37.0 g/dL) 31.1 L RDW (11.5 - 14.5 %) 15.7 H Plt Count (150 - 400 x10 3/uL) 345 MPV (7.0 - 9.0 fL) 10.7 H Neut % (Auto) (56.0 - 77.0 %) 46.5 L Lymph % (Auto) (14.0 - 32.0 %) 41.4 H Randolph % (Auto) (4.8 - 9.0 %) 6.8 Eos % (Auto) (0.3 - 3.7 %) 3.8 H Baso % (Auto) (0.0 - 2.0 %) 1.3 Neut # (Auto) (2.0 - 7.6 x10 3/uL) 2.55 Lymph # (Auto) (1.0 - 3.8 x10 3/uL) 2.27 Randolph # (Auto) (0.1 - 0.8 x10 3/uL) 0.37 Eos # (Auto) (0.0 - 0.2 x10 3/uL) 0.21 H Baso # (Auto) (0.0 - 0.2 x10 3/uL) 0.07 Abs Immat Gran (auto) (0.00 - 0.03 x10 3/uL) 0.01 Immature Gran % (0.0 - 2.0 %) 0.2 Nucleated RBC % (0 - 0 %) 0.0 Nucleated RBCs # (Man) (0.0 - 0.1 x10 3/uL) 0.00 Radiology data: Recent Impressions: RADIOLOGY - XR ABDOMEN 1V (KUB) 01/10 0616 Report Impression - Status: SIGNED Entered: 01/11/2024 0658 IMPRESSION: Nonspecific nonobstructive bowel gas pattern. Impression By: [email or web address] - Veronika Stephens M.S. Diagnosis, Assessment Plan Free Text DxA P Notes Free Text DxA P Notes: 1. Early/Partial SBO 2. LUQ abdominal pain - likely gastritis - PPI 3. Chronic pancreatitis s/p pancreatic stent - lipase 112, 78 serial abdominal xray SBFT per surgery PPI IVF full liq diet Will follow Deloris Haddad 01/26/24 1106: Diagnosis, Assessment Plan Free Text DxA P Notes Free Text DxA P Notes: Patient's chart reviewed along with examine and interview with RUBBER GOODS INSPECTOR TESTER and I agree with plan as written at 1653 at 1108 RPT #:[id number] END OF REPORT [facility] 2024-01-11 09:43:00 [facility] General Surgery Progress Note REPORT#:[id number] REPORT STATUS: Signed REPORT INITIALIZATION DATE:01/11/24 TIME: 942 PATIENT: TANNER BENDER UNIT #: [id number] ROOM/BED: [place] [address] : 84 AGE: 38 SEX: M ATTEND: Henry Mares MD ADM AUTHOR: Evie Brown APRNNP REPT SERVICE DT/TIME: 01/11/24 1045 * ALL edits or amendments must be made on the electronic/computer document * Evie Brown 01/11/24 0943: Subjective Chief complaint: LUQ pain HPI: No acute changes overnight. Pain mildly improved, KUB with non-obstructive bowel gas pattern, denies vomiting, mild nausea persists. OK for full liquid diet from surgical standpoint. Will continue to follow. GI eval pending. Review of Systems Constitutional: Denies: fever. Respiratory: Denies: PEREZ (dyspnea on exertion), SOB. Cardiovascular: Denies: chest pain. GI: Reports: abdominal pain (LUQ mild), nausea. Denies: constipation, diarrhea, vomiting. Neuro: Denies: change in LOC. Free Text ROS Notes Free Text ROS Notes: Review of systems: As above; otherwise, negative to include neurologic, eyes, ENT, CV, respiratory, GI, musculoskeletal, , skin, psychiatric, hematologic, and allergy. Objective General VS/I O: Last Documented: Result Date Time Pulse Ox 96 01/10 1118 B/P 129/80 01/10 1118 B/P Mean 96.2 01/10 1118 O2 Delivery Room air 01/10 111 Temp 97.7 01/10 1118 Pulse 46 01/10 1118 Resp 18 01/10 1118 Vital Signs Date Temp Pulse Resp B/P B/P Mean Pulse Ox FiO2 01/09-01/10 97.3-98.1 46-133 14-18 111-150/65-90 83-110 96-99 24 hour I O ending at 0700: 01/10 0700 01/09 1900 Intake Total Output Total Balance Number Voids 3 Output, Emesis Patient 59.091 kg Weight Weight Stated/Reported Measurement Method PATIENT WEIGHT: Weight (kg): 59.091 Medications: Active Meds + DC'd Last 24 Hrs Pantoprazole (PROTONIX) 40 MG DAILY PO Dicyclomine HCl (BENTYL) 20 MG QID PO Alprazolam (XANAX) 2 MG TID PRN PO Methocarbamol (ROBAXIN 750 MG) 750 MG Q4H PO Docusate Sodium (COLACE) 100 MG BID PO Gabapentin (NEURONTIN) 200 MG BID PO Enoxaparin Sodium (lovENOX) 40 MG Q24H SUBQ Hydromorphone HCl (DILAUDID) 0.5 MG Q3H PRN PRN IV Acetaminophen (TYLENOL) 650 MG Q4H PRN PRN PO Hydralazine HCl (APRESOLINE) 10 MG Q6H PRN PRN IV Ondansetron HCl (ZOFRAN) 4 MG Q6H PRN PRN IV Sodium Chloride (SODIUM CHLORIDE 0.9%) 1,000 ML .Q10H IV Morphine Sulfate (morphine SULFATE) 4 MG X1ED STA IV (DC) Iopamidol (ISOVUE-300 100ML) 100 ML .STK-MED ONE IV (DC) Morphine Sulfate (morphine SULFATE) 4 MG X1ED STA IV (DC) Ondansetron HCl (ZOFRAN) 4 MG X1ED STA IV (DC) Ceftriaxone Sodium (ROCEPHIN 1000MG VIAL) 1,000 MG X1ED STA IV (DC) Sodium Chloride (SODIUM CHLORIDE) 10 ML Metronidazole/Sodium Chloride (metroNIDAZOLE 500MG/NS 100ML) 100 ML X1ED STA IV (DC) Sodium Chloride (SODIUM CHLORIDE 0.9%) 1,772.73 ML BOLUS ONCE STA IV (DC) Results Findings/Data: Laboratory Tests 01/11/24 0428: [Embedded Image Not Available] 01/10/24 1140: [Embedded Image Not Available] Laboratory Tests 01/10 01/09 01/09 01/09 01/09 0428 1142 1140 1140 1140 Chemistry Sodium (134 - 147 mEq/L) 144 141 Potassium (3.4 - 5.0 mEq/L) 3.9 3.8 Chloride (100 - 108 mEq/L) 112 H 109 H Carbon Dioxide (21 - 33 mEq/l) 26 27 Anion Gap (0 - 20) 10 9 BUN (7 - 25 mg/dL) < 5 L 5 L Creatinine (0.6 - 1.3 mg/dL) 0.8 0.9 Glomerular Filtr Rate (105 - 110) 115.5 H 111.4 H Glucose (77 - 141 mg/dL) 82 99 Lactic Acid (0.4 - 1.9 mmol/L) 1.0 Calcium (8.0 - 10.5 mg/dL) 8.2 8.6 Phosphorus (2.5 - 4.9 MG/DL) 3.9 Magnesium (1.6 - 2.6 mg/dL) 2.00 Total Bilirubin (0.0 - 1.0 mg/dL) 1.00 1.30 H AST (8 - 34 IUnit/L) 14 13 ALT (10 - 49 IUnit/L) 12 14 Total Alk Phosphatase (20 - 125 57 62 IUnit/L) Troponin I High Sens (0 - 54 ng/L) < 3 B-Natriuretic Peptide (0 - 100 36.0 PG/ML) Total Protein (6.4 - 8.2 g/dL) 6.1 L 7.7 Albumin (3.4 - 5.0 g/dL) 3.30 L 4.10 Amylase (30 - 118 UNITS/L) 176 H 248 H Lipase (13 - 57 U/L) 73 H 112 H Laboratory Tests 01/10 01/09 0428 1140 Hematology WBC (4.5 - 11.0 x10 3/uL) 5.5 6.6 RBC (4.00 - 5.60 x10 6/uL) 3.94 L 4.36 Hgb (12.5 - 16.9 g/dL) 10.3 L 11.5 L Hct (37.5 - 50.7 %) 33.1 L 35.8 L MCV (81.0 - 99.0 fL) 84.0 82.1 MCH (27.0 - 33.0 pg) 26.1 L 26.4 L MCHC (33.0 - 37.0 g/dL) 31.1 L 32.1 L RDW (11.5 - 14.5 %) 15.7 H 15.4 H Plt Count (150 - 400 x10 3/uL) 345 408 H MPV (7.0 - 9.0 fL) 10.7 H 10.0 H Neut % (Auto) (56.0 - 77.0 %) 46.5 L 55.5 L Lymph % (Auto) (14.0 - 32.0 %) 41.4 H 33.3 H Randolph % (Auto) (4.8 - 9.0 %) 6.8 8.2 Eos % (Auto) (0.3 - 3.7 %) 3.8 H 1.8 Baso % (Auto) (0.0 - 2.0 %) 1.3 0.9 Neut # (Auto) (2.0 - 7.6 x10 3/uL) 2.55 3.67 Lymph # (Auto) (1.0 - 3.8 x10 3/uL) 2.27 2.20 Randolph # (Auto) (0.1 - 0.8 x10 3/uL) 0.37 0.54 Eos # (Auto) (0.0 - 0.2 x10 3/uL) 0.21 H 0.12 Baso # (Auto) (0.0 - 0.2 x10 3/uL) 0.07 0.06 Abs Immat Gran (auto) (0.00 - 0.03 x10 3/uL) 0.01 0.02 Immature Gran % (0.0 - 2.0 %) 0.2 0.3 Nucleated RBC % (0 - 0 %) 0.0 0.0 Nucleated RBCs # (Man) (0.0 - 0.1 x10 3/uL) 0.00 0.00 Laboratory Tests 01/09 1140 Urines Urine Color (YEL/STRAW) YELLOW Urine Appearance (CLEAR) CLEAR Urine pH (5.0 - 7.0) 5.0 Ur Specific [place] (1.005 - 1.030) 1.023 Urine Protein (NEGATIVE) NEGATIVE Urine Glucose (UA) (NEGATIVE) NEGATIVE Urine Ketones (NEGATIVE) NEGATIVE Urine Blood (NEGATIVE) NEGATIVE Urine Nitrite (NEGATIVE) NEGATIVE Urine Bilirubin (NEGATIVE) NEGATIVE Urine Urobilinogen (0.2 - 1.0 mg/dL) 0.2 Ur Leukocyte Esterase (NEGATIVE) NEGATIVE Urine RBC (0 - 3 RBC/HPF) 0-3 Urine WBC (0 - 3 WBC/HPF) 0-3 Ur Squamous Epith Cells (NONE SEEN /HPF) 0-5 Calcium Oxalate Crystal (NONE SEEN /HPF) 3+ H Urine Bacteria (NONE SEEN /HPF) NONE SEEN Hyaline Casts (NONE SEEN /LPF) 3-5 Urine Mucus (NONE SEEN /LPF) 4+ H Radiology data: Recent Impressions: RADIOLOGY - XR CHEST 1 V 01/09 1148 Report Impression - Status: SIGNED Entered: 01/10/2024 1205 IMPRESSION: No acute abnormality Impression By: [email or web address] - Tha Villagomez M.D. CAT SCAN - CT ABD PELVIS W/CONT 01/09 1200 Report Impression - Status: SIGNED Entered: 01/10/2024 1257 IMPRESSION: 1. Borderline dilated small bowel loops are noted, most prominently in the pelvis, measuring up to 3.0 cm in diameter, non-specific, but may be seen in the setting of early/partial small bowel obstruction. 2. Mild hepatomegaly. Status post cholecystectomy. Impression By: [email or web address] - Anoop Irvin M.D. RADIOLOGY - XR ABDOMEN 1V (KUB) 01/10 0616 Report Impression - Status: SIGNED Entered: 01/11/2024 0658 IMPRESSION: Nonspecific nonobstructive bowel gas pattern. Impression By: [email or web address] - Veronika Stephens M.S. Results: labs reviewed, vital signs reviewed, vital signs stable, CT results reviewed, x-ray personally reviewed, current med profile rev'd Free Text Obj Notes Free Text Obj Notes: Constitutional: GCS 15, patient awake, alert, no acute distress, HR, BP, O2 saturation reviewed in records Eyes: pupils equal, round, reactive to light, EOMI HENT: normal cephalic, atraumatic, no facial tenderness or crepitus, normal external inspection of ears/nose, no septal hematoma Neck: trachea midline, no crepitus, thyroid without mass CV: regular rate, rhythm, bilateral radial pulses 2+, no cyanosis, no edema, no pulsatile abdominal mass Respiratory: lungs clear bilaterally, respirations even and unlabored, no tenderness to palpation, normal inspection of chest, no crepitus Abdomen: soft, LUQ tender to palpation, non-distended, guarding, non-peritoneal, no masses, no hernia noted : pelvis stable Lymph nodes: no cervical or supraclavicular masses noted Musculoskeletal: -All extremities without focal tenderness, without deformity, with ROM intact -no cervical/thoracic/lumbar spine tenderness or step-off Skin: no lacerations or abrasions noted, skin warm to palpation Psychiatric: normal mood and affect, memory intact Neurologic: face symmetrical. Bilateral upper and lower extremity sensation intact Diagnosis, Assessment Plan Hospital course to date: 01/09: Admitted to medicine, following for gen surg is a 38yr old male who presented to the ED today with c/o severe LUQ pain that radiates to the back and "colon". Patient reports the pain started Friday and was initially intermitant but throughout the week progressed to constant, patient also report nausea/ vomiting. Abd pain and n/v worsens with food, improves with no PO intake. Reports last PO intake that was not vomited was 2 days ago. Patient also reports that he has been having diarrhea since Friday that appears "dark and tarry". Patient reports he recently had a pancreatic stent placed by Dr. Morgan on 12/20/2023 for chronic pancreatitis. After the stent placement the patient reports feeling fine until this past Friday (01/05/24). Imaging performed today resulted showing borderline dilated small bowel loops concerning for early/partial SBO. Will follow for general surgery. 01/10: No acute changes overnight. Pain mildly improved, KUB with non-obstructive bowel gas pattern, denies vomiting, mild nausea persists. OK for full liquid diet from surgical standpoint. Will continue to follow. GI eval pending. Free Text A P: Active Problems: LUQ abd pain Nausea/vomiting Other Problems: Chronic pancreatitis - recent stent 12/20/23 Mild anemia - HgB stable from previous labs Resolved Problems: Incidental findings: Chronic Medical Problems: noted DVT prophylaxis: SCDs, Lovenox GI prophylaxis: diet Lines/Oneil/ETT: PIV Consultants: General surgery, Dr. Balderrama GI, Dr. Morgan Pain mangement, Dr. Arceo Procedures: Plan: Early/partial small bowel obstruction * admitted to medicine team * following for general surgery * GI eval pending regarding recent pancreatic stent * pain management eval pending, patient kown to pain group * no plans for surgical intervention at this time * serial abd exams * repeat XR abd 01/10 with non-obstructive bowel/gas pattern * NGT to LWS if patient begins having nausea/vomiting * tentative plans for SBFT Mon 01/11 if no improvement with symptoms * OK for full liquid diet from surgical standpoint * IVF while NPO - NS @ 100 * CT A/P 01/09 completed and reviewed * optimize electrolytes * multimodal pain control with IV and PO narcotic/non-narcotic pain medications * Lovenox for DVT prophylaxis * trend labs, lipase 112 and amylase 248 on admission (01/09), trending down * will defer evaluation and/or treatment on other issues to medicine and consulting teams Diet: OK for full liquids Labs: per primary PT/OT recs: pending DME: recs pending Code status: Full code Medical Decision Making: In the event the patient is incapacitated and not able to make their own medical decisions, they have elected sister Wood Ozuna, contact number [phone], to make medical decisions for them. Dispo: Admit; will continue to monitor for ICU needs or any further changes to level of care Quality: Trauma Gen Surg Advanced Care Plan 65 or Older Discussed with: patient Current Medications Current medication review: I attest that the foregoing medication list in the medical record is true, accurate, and complete to the best of my knowledge. VTE Prophylaxis - General VTE prophylaxis initiated: yes (SCD, Lovenox) Thor Balderrama 01/20/24 1053: Attestations Physician Attestation Agree w/findings plan: I saw this patient and agree with ANTHONY Brown at 1126 at 1053 RPT #:[id number] END OF REPORT [facility] 2024-01-11 09:14:00 [facility] ([facility]) Hospitalist History Physical REPORT#:[id number] REPORT STATUS: Signed REPORT INITIALIZATION DATE:01/11/24 TIME: 913 PATIENT: TANNER BENDER UNIT #: [id number] ROOM/BED: [place] [address] : 84 AGE: 38 SEX: M ATTEND: Henry Mares MD ADM AUTHOR: Toro Quevedo RUBBER GOODS INSPECTOR TESTER REPT SERVICE DT/TIME: 01/11/24913 * ALL edits or amendments must be made on the electronic/computer document * History of Present Illness HPI Chief complaint: bd pain, N/v PCP: PCP: Geetha Acosta MD HPI: 38-year-old male with a past medical history of chronic pain syndrome, pancreatitis who presents to the emergency department for abdominal pain, nausea , vomiting, decreased appetite inability to hold anything down. He tried Zofran at home. Patient states that he just had a pancreatic stent placed he called his GI doctor on was told to come in if his symptoms continue. Patient was recently just seen here for similar symptoms. Denied fever, chills, chest pain, shortness of breath, diarrhea, constipation, melena, hematochezia, dysuria , testicular pain or swelling. He had a CT abdomen and plevis which showed early /partial small bowel obstruction. History Past medical history: Reports: Asthma, Chronic pain, Pancreatitis (Chronic). Additional medical history: Anxiety Past surgical history: Denies: Abdominal surgery. Family history: Denies: CAD < 40 yrs old. Additional family history: n/c Alcohol use: Denies EtOH use Drug use: Denies recreational drugs Smoking status for patients 13 years old or older: Former Smoker Other social history: Primary family support Additional social history: family hx- unknown Medication/Allergy-Vaccine Hx Medications: Home Medications: Medication Dose/Rte/Freq Days Qty Entered Last Max Daily Dose Reviewed ALPRAZolam (XANAX) 2 MG PO 07/13/22 01/10/24 Strength: 2 MG TAB TID PRN ANXIETY 2307 1742 HYDROmorphone (DILAUDID) 2 MG PO 11/11/22 Strength: 2 MG TAB Q4H PRN PRN PAIN 1341 SCALE 7-10 AMYLASE/LIPASE/PROTEA 24,000 UNITS PO 02/02/23 01/10/24 120,000/24,000/76,000 U TID MEALS 1915 1742 (CREON 24) Strength: 24-76-120K CAP. METHOCARBAMOL 750 MG PO Q4H 12/01/23 01/10/24 (ROBAXIN) 2322 1742 Strength: 750 MG TAB PANTOPRAZOLE DR 40 MG PO DAILY 12/01/23 01/10/24 (PROTONIX) 2323 1742 Strength: 40 MG TAB. ALBUTEROL 2 PUFF INH RTQ6H 11/11/22 01/10/24 (PROAIR DIGIHALER 90 1017 1742 MCG/ACT 0.65 GM) Strength: 90 MCG INHALER DICYCLOMINE (BENTYL) 20 MG PO QID 30 09/03/23 01/10/24 Strength: 20 MG TAB 0108 1742 HYDROmorphone (DILAUDID) 2 MG PO 7 28 12/22/23 Strength: 2 MG TAB Q6H PRN PRN PAIN 1318 SCALE 7-10 Current Hospital Medications: Anti-Infective Agents Sig/José Miguel Start time Last Medication Dose Route Stop Time Status Admin Ceftriaxone Sodium 1,000 MG X1ED STA 01/09 1137 DC 01/09 (ROCEPHIN 1000MG IV 01/09 1139 1149 VIAL) Sodium Chloride 10 ML (SODIUM CHLORIDE) Metronidazole/Sodium 100 ML X1ED STA 01/09 1137 DC 01/09 Chloride IV 01/09 1236 1150 (metroNIDAZOLE 500MG/ NS 100ML) Blood Formation,Coagulation Sig/José Miguel Start time Last Medication Dose Route Stop Time Status Admin Enoxaparin Sodium 40 MG Q24H 01/09 1745 AC (lovENOX) SUBQ 04/09 1744 Cardiovascular Drugs Sig/José Miguel Start time Last Medication Dose Route Stop Time Status Admin Hydralazine HCl 10 MG Q6H PRN PRN 01/09 1645 AC (APRESOLINE) IV 04/09 1644 Central Nervous System Agents Sig/José Miguel Start time Last Medication Dose Route Stop Time Status Admin Gabapentin 200 MG BID 01/09 2100 AC (NEURONTIN) PO 04/09 205 Hydromorphone HCl 0.5 MG Q3H PRN PRN 01/09 1745 AC 01/10 (DILAUDID) IV 01/14 174 0714 Acetaminophen 650 MG Q4H PRN PRN 01/09 1645 AC (TYLENOL) PO 04/09 1644 Morphine Sulfate 4 MG X1ED STA 01/09 1328 DC 01/09 (morphine SULFATE) IV 01/09 1329 1357 Morphine Sulfate 4 MG X1ED STA 01/09 1138 DC 01/09 (morphine SULFATE) IV 01/09 1139 1150 Diagnostic Agents Sig/José Miguel Start time Last Medication Dose Route Stop Time Status Admin Iopamidol 100 ML .STK-MED ONE 01/09 1201 DC 01/09 (ISOVUE-300 100ML) IV 01/09 1202 1201 Electrolytic, Caloric, And Sneha Sig/José Miguel Start time Last Medication Dose Route Stop Time Status Admin Sodium Chloride 1,000 ML .Q10H 01/09 1500 AC 01/10 (SODIUM CHLORIDE IV 01/12 1118 0416 0.9%) Sodium Chloride 1,772.73 ML BOLUS ONCE STA 01/09 1136 DC 01/09 (SODIUM CHLORIDE IV 01/09 1137 1148 0.9%) Gastrointestinal Drugs Sig/José Miguel Start time Last Medication Dose Route Stop Time Status Admin Docusate Sodium 100 MG BID 01/09 2100 AC (COLACE) PO 04/09 2059 Ondansetron HCl 4 MG Q6H PRN PRN 01/09 1500 AC (ZOFRAN) IV 01/12 1118 Ondansetron HCl 4 MG X1ED STA 01/09 1138 DC 01/09 (ZOFRAN) IV 01/09 1139 1149 Allergies: Coded Allergies: Penicillins (Severe, THROAT SWELLS UP 01/10/24) Review of Systems Constitutional: fatigue, generalized weakness. Allergy/Immun: Denies: anaphylaxis, itching, sneezing. Respiratory: Denies: hemoptysis, pleuritic pain, SOB, wheezing. Cardiovascular: Denies: chest pain, edema, palpitations. GI: Reports: abdominal pain, nausea, vomiting. Denies: anorexia, diarrhea, dysphagia, hematemesis, hematochezia, hiatal hernia. : Denies: flank pain, nocturia, penile lesion, urgency. Musculoskeletal: Denies: extremity pain, joint pain, joint swelling, myalgias, neck pain. Heme: Denies: bleeding, bruising. Neuro: Denies: bowel dysfunction, change in LOC, focal weakness, gait problem, headache , lightheaded, slurred speech, spinning sensation. Objective General VS/I O: Vital Signs: Date Time Temp Pulse Resp B/P B/P Pulse O2 O2 Flow FiO2 Mean Ox Delivery Rate 01/10 0710 36.5 51 16 117/74 88.3 96 01/10 0408 36.3 51 16 115/74 87.8 97 01/10 0108 36.6 52 16 111/70 83.2 96 01/09 2214 63 115/71 85.4 98 01/09 2114 36.5 65 17 113/71 84.7 97 01/09 1500 104 17 118/65 83 96 01/09 1430 67 14 120/65 87 98 01/09 1126 36.7 133 15 150/90 110 99 Room air 24 hour I O ending at 0700: 01/10 0700 01/09 1900 Intake Total Output Total Balance Number Voids 3 Output, Emesis Patient 59.091 kg Weight Weight Stated/Reported Measurement Method PATIENT WEIGHT: Weight (lb): Weight (oz): Weight (kg): 59.091 Medications: Active Meds + DC'd Last 24 Hrs Docusate Sodium (COLACE) 100 MG BID PO Gabapentin (NEURONTIN) 200 MG BID PO Enoxaparin Sodium (lovENOX) 40 MG Q24H SUBQ Hydromorphone HCl (DILAUDID) 0.5 MG Q3H PRN PRN IV Acetaminophen (TYLENOL) 650 MG Q4H PRN PRN PO Hydralazine HCl (APRESOLINE) 10 MG Q6H PRN PRN IV Ondansetron HCl (ZOFRAN) 4 MG Q6H PRN PRN IV Sodium Chloride (SODIUM CHLORIDE 0.9%) 1,000 ML .Q10H IV Morphine Sulfate (morphine SULFATE) 4 MG X1ED STA IV (DC) Iopamidol (ISOVUE-300 100ML) 100 ML .STK-MED ONE IV (DC) Morphine Sulfate (morphine SULFATE) 4 MG X1ED STA IV (DC) Ondansetron HCl (ZOFRAN) 4 MG X1ED STA IV (DC) Ceftriaxone Sodium (ROCEPHIN 1000MG VIAL) 1,000 MG X1ED STA IV (DC) Sodium Chloride (SODIUM CHLORIDE) 10 ML Metronidazole/Sodium Chloride (metroNIDAZOLE 500MG/NS 100ML) 100 ML X1ED STA IV (DC) Sodium Chloride (SODIUM CHLORIDE 0.9%) 1,772.73 ML BOLUS ONCE STA IV (DC ) Physical Exam General appearance: alert, awake, oriented Head/Eyes: atraumatic, clear cornea, normocephalic, PERRLA Neck: full range of motion, supple/no meningismus, no bruit/NL carotids, no JVD Cardiovascular: normal capillary refill, normal heart sounds, regular rate rhythm Respiratory: aerating well, symmetric expansion, no distress Abdomen: non-tender, normal bowel sounds Genitourinary: no flank pain, no urinary catheter Extremities: no calf tenderness, no clubbing, no cyanosis Musculoskeletal: no CVA tenderness, no muscle spasm Neuro/BOBBIN DISKER: alert, oriented X 3, CNII-XII intact Results Findings/Data: Laboratory Tests 01/10 01/09 01/09 01/09 01/09 0428 1142 1140 1140 1140 Chemistry Sodium (134 - 147 mEq/L) 144 141 Potassium (3.4 - 5.0 mEq/L) 3.9 3.8 Chloride (100 - 108 mEq/L) 112 H 109 H Carbon Dioxide (21 - 33 mEq/l) 26 27 Anion Gap (0 - 20) 10 9 BUN (7 - 25 mg/dL) < 5 L 5 L Creatinine (0.6 - 1.3 mg/dL) 0.8 0.9 Glomerular Filtr Rate (105 - 110) 115.5 H 111.4 H Glucose (77 - 141 mg/dL) 82 99 Lactic Acid (0.4 - 1.9 mmol/L) 1.0 Calcium (8.0 - 10.5 mg/dL) 8.2 8.6 Phosphorus (2.5 - 4.9 MG/DL) 3.9 Magnesium (1.6 - 2.6 mg/dL) 2.00 Total Bilirubin (0.0 - 1.0 mg/dL) 1.00 1.30 H AST (8 - 34 IUnit/L) 14 13 ALT (10 - 49 IUnit/L) 12 14 Total Alk Phosphatase (20 - 125 57 62 IUnit/L) Troponin I High Sens (0 - 54 ng/L) < 3 B-Natriuretic Peptide (0 - 100 36.0 PG/ML) Total Protein (6.4 - 8.2 g/dL) 6.1 L 7.7 Albumin (3.4 - 5.0 g/dL) 3.30 L 4.10 Amylase (30 - 118 UNITS/L) 176 H 248 H Lipase (13 - 57 U/L) 73 H 112 H Laboratory Tests 01/10 01/09 0428 1140 Hematology WBC (4.5 - 11.0 x10 3/uL) 5.5 6.6 RBC (4.00 - 5.60 x10 6/uL) 3.94 L 4.36 Hgb (12.5 - 16.9 g/dL) 10.3 L 11.5 L Hct (37.5 - 50.7 %) 33.1 L 35.8 L MCV (81.0 - 99.0 fL) 84.0 82.1 MCH (27.0 - 33.0 pg) 26.1 L 26.4 L MCHC (33.0 - 37.0 g/dL) 31.1 L 32.1 L RDW (11.5 - 14.5 %) 15.7 H 15.4 H Plt Count (150 - 400 x10 3/uL) 345 408 H MPV (7.0 - 9.0 fL) 10.7 H 10.0 H Neut % (Auto) (56.0 - 77.0 %) 46.5 L 55.5 L Lymph % (Auto) (14.0 - 32.0 %) 41.4 H 33.3 H Randolph % (Auto) (4.8 - 9.0 %) 6.8 8.2 Eos % (Auto) (0.3 - 3.7 %) 3.8 H 1.8 Baso % (Auto) (0.0 - 2.0 %) 1.3 0.9 Neut # (Auto) (2.0 - 7.6 x10 3/uL) 2.55 3.67 Lymph # (Auto) (1.0 - 3.8 x10 3/uL) 2.27 2.20 Randolph # (Auto) (0.1 - 0.8 x10 3/uL) 0.37 0.54 Eos # (Auto) (0.0 - 0.2 x10 3/uL) 0.21 H 0.12 Baso # (Auto) (0.0 - 0.2 x10 3/uL) 0.07 0.06 Abs Immat Gran (auto) (0.00 - 0.03 x10 3/uL) 0.01 0.02 Immature Gran % (0.0 - 2.0 %) 0.2 0.3 Nucleated RBC % (0 - 0 %) 0.0 0.0 Nucleated RBCs # (Man) (0.0 - 0.1 x10 3/uL) 0.00 0.00 Laboratory Tests 01/09 1140 Urines Urine Color (YEL/STRAW) YELLOW Urine Appearance (CLEAR) CLEAR Urine pH (5.0 - 7.0) 5.0 Ur Specific [place] (1.005 - 1.030) 1.023 Urine Protein (NEGATIVE) NEGATIVE Urine Glucose (UA) (NEGATIVE) NEGATIVE Urine Ketones (NEGATIVE) NEGATIVE Urine Blood (NEGATIVE) NEGATIVE Urine Nitrite (NEGATIVE) NEGATIVE Urine Bilirubin (NEGATIVE) NEGATIVE Urine Urobilinogen (0.2 - 1.0 mg/dL) 0.2 Ur Leukocyte Esterase (NEGATIVE) NEGATIVE Urine RBC (0 - 3 RBC/HPF) 0-3 Urine WBC (0 - 3 WBC/HPF) 0-3 Ur Squamous Epith Cells (NONE SEEN /HPF) 0-5 Calcium Oxalate Crystal (NONE SEEN /HPF) 3+ H Urine Bacteria (NONE SEEN /HPF) NONE SEEN Hyaline Casts (NONE SEEN /LPF) 3-5 Urine Mucus (NONE SEEN /LPF) 4+ H Radiology data: Recent Impressions: RADIOLOGY - XR CHEST 1 V 01/09 1148 Report Impression - Status: SIGNED Entered: 01/10/2024 1205 IMPRESSION: No acute abnormality Impression By: [email or web address] - Tha Villagomez M.D. CAT SCAN - CT ABD PELVIS W/CONT 01/09 1200 Report Impression - Status: SIGNED Entered: 01/10/2024 1257 IMPRESSION: 1. Borderline dilated small bowel loops are noted, most prominently in the pelvis, measuring up to 3.0 cm in diameter, non-specific, but may be seen in the setting of early/partial small bowel obstruction. 2. Mild hepatomegaly. Status post cholecystectomy. Impression By: [email or web address] - Anoop Irvin M.D. RADIOLOGY - XR ABDOMEN 1V (KUB) 01/10 0616 Report Impression - Status: SIGNED Entered: 01/11/2024 0658 IMPRESSION: Nonspecific nonobstructive bowel gas pattern. Impression By: [email or web address] - Veronika Stephens M.S. Results: labs reviewed, vital signs reviewed, vital signs stable, x-ray personally reviewed, current med profile rev'd Treatment Prophylaxis Treatment Prophylaxis Oxygen: room air Diagnosis, Assessment Plan Plan discussed with: patient, admitting physician, consultants, nurse Code Status/Resusc. Discussion Code status: full code Free Text DxA P Notes Free Text DxA P Notes: Assessment and plan: Early/partial small bowel obstruction. Severe abd pain due to early/partial small bowel obstruction. HX of chronic pain syndrome, pancreatitis. Plan: Floor. Surgery for possible SBO. IVF. NPO. GI for abd pain and Nausea. Pain meds. Antiemetics. follow labs and replace as needed. Continue home meds. Monitor. Quality: Gen Med Crit Care VTE Prophylaxis VTE prophylaxis initiated: yes (SCD, Lovenox) Current Medications Current medication review: I attest that the foregoing medication list in the medical record is true, accurate, and complete to the best of my knowledge. Advanced Care Plan 65 or Older Discussed with: patient at 0919 at 0615 RPT #:[id number] END OF REPORT [facility] 2024-01-10 16:56:00 [facility] ([facility]) General Surgery Consult Note REPORT#:[id number] REPORT STATUS: Signed REPORT INITIALIZATION DATE:01/10/24 TIME: 1655 PATIENT: TANNER BENDER UNIT #: [id number] ROOM/BED: [place] [id number] : 84 AGE: 38 SEX: M ATTEND: Henry Mares MD ADM AUTHOR: Evie Brown APRNNP REPT SERVICE DT/TIME: 01/10/24 1700 * ALL edits or amendments must be made on the electronic/computer document * Evie Brown 01/10/241655: History of Present Illness HPI: The patient was seen in the ED at the request of the ED physician as a general surgery consult. CC: LUQ abd pain HPI: The patient is a 38yr old male who presented to the ED today with c/o severe LUQ pain that radiates to the back and "colon". Patient reports the pain started Friday and was initially intermitant but throughout the week progressed to constant, patient also report nausea/vomiting. Abd pain and n/v worsens with food, improves with no PO intake. Reports last PO intake that was not vomited was 2 days ago. Patient also reports that he has been having diarrhea since Friday that appears "dark and tarry". Patient reports he recently had a pancreatic stent placed by Dr. Morgan on 12/20/2023 for chronic pancreatitis. After the stent placement the patient reports feeling fine until this past Friday (01/05/24). Imaging performed today resulted showing borderline dilated small bowel loops concerning for early/partial SBO. Will follow for general surgery. Past medical history: Chronic pancreatitis, anxiety Past surgical history: Appendectomy, cholecystectomy, inguinal hernia repair, pancreatic stent (12/20/23) Allergies: PCN Social history: Denies smoking, reports former social alcohol use, denies drug use Family history: No reported bleeding problems, or problems with anesthesia Medications: Home medications reviewed, no blood thinner use reported Review of systems: As above; otherwise, negative to include neurologic, eyes, ENT, CV, respiratory, GI, musculoskeletal, , skin, psychiatric, hematologic, and allergy. History - Adult longitudinal Allergies: Coded Allergies: Penicillins (Severe, THROAT SWELLS UP 01/10/24) Objective Physical Exam VS/I O Last Documented: Result Date Time Pulse Ox 96 01/09 1500 B/P 118/65 01/09 1500 B/P Mean 83 01/09 1500 Pulse 104 01/09 1500 Resp 17 01/09 1500 O2 Delivery Room air 01/09 1126 Temp 98.1 01/09 1126 Vital Signs Date Temp Pulse Resp B/P B/P Mean Pulse Ox FiO2 01/09 98.1 67-133 14-17 118-150/65-90 83-110 96-99 PATIENT WEIGHT: Weight (kg): 59.091 Results Findings/Data: Laboratory Tests: 01/09 01/09 01/09 1142 1140 1140 Chemistry Sodium (134 - 147 mEq/L) 141 Potassium (3.4 - 5.0 mEq/L) 3.8 Chloride (100 - 108 mEq/L) 109 H Carbon Dioxide (21 - 33 mEq/l) 27 Anion Gap (0 - 20) 9 BUN (7 - 25 mg/dL) 5 L Creatinine (0.6 - 1.3 mg/dL) 0.9 Glomerular Filtr Rate (105 - 110) 111.4 H Glucose (77 - 141 mg/dL) 99 Lactic Acid (0.4 - 1.9 mmol/L) 1.0 Calcium (8.0 - 10.5 mg/dL) 8.6 Total Bilirubin (0.0 - 1.0 mg/dL) 1.30 H AST (8 - 34 IUnit/L) 13 ALT (10 - 49 IUnit/L) 14 Total Alk Phosphatase (20 - 125 IUnit/L) 62 Troponin I High Sens (0 - 54 ng/L) < 3 B-Natriuretic Peptide (0 - 100 PG/ML) 36.0 Total Protein (6.4 - 8.2 g/dL) 7.7 Albumin (3.4 - 5.0 g/dL) 4.10 Lipase (13 - 57 U/L) 112 H Hematology WBC (4.5 - 11.0 x10 3/uL) 6.6 RBC (4.00 - 5.60 x10 6/uL) 4.36 Hgb (12.5 - 16.9 g/dL) 11.5 L Hct (37.5 - 50.7 %) 35.8 L MCV (81.0 - 99.0 fL) 82.1 MCH (27.0 - 33.0 pg) 26.4 L MCHC (33.0 - 37.0 g/dL) 32.1 L RDW (11.5 - 14.5 %) 15.4 H Plt Count (150 - 400 x10 3/uL) 408 H MPV (7.0 - 9.0 fL) 10.0 H Neut % (Auto) (56.0 - 77.0 %) 55.5 L Lymph % (Auto) (14.0 - 32.0 %) 33.3 H Randolph % (Auto) (4.8 - 9.0 %) 8.2 Eos % (Auto) (0.3 - 3.7 %) 1.8 Baso % (Auto) (0.0 - 2.0 %) 0.9 Neut # (Auto) (2.0 - 7.6 x10 3/uL) 3.67 Lymph # (Auto) (1.0 - 3.8 x10 3/uL) 2.20 Randolph # (Auto) (0.1 - 0.8 x10 3/uL) 0.54 Eos # (Auto) (0.0 - 0.2 x10 3/uL) 0.12 Baso # (Auto) (0.0 - 0.2 x10 3/uL) 0.06 Abs Immat Gran (auto) (0.00 - 0.03 x10 3/uL) 0.02 Immature Gran % (0.0 - 2.0 %) 0.3 Nucleated RBC % (0 - 0 %) 0.0 Nucleated RBCs # (Man) (0.0 - 0.1 x10 3/uL) 0.00 Urines Urine Color (YEL/STRAW) YELLOW Urine Appearance (CLEAR) CLEAR Urine pH (5.0 - 7.0) 5.0 Ur Specific Charlotte (1.005 - 1.030) 1.023 Urine Protein (NEGATIVE) NEGATIVE Urine Glucose (UA) (NEGATIVE) NEGATIVE Urine Ketones (NEGATIVE) NEGATIVE Urine Blood (NEGATIVE) NEGATIVE Urine Nitrite (NEGATIVE) NEGATIVE Urine Bilirubin (NEGATIVE) NEGATIVE Urine Urobilinogen (0.2 - 1.0 mg/dL) 0.2 Ur Leukocyte Esterase (NEGATIVE) NEGATIVE Urine RBC (0 - 3 RBC/HPF) 0-3 Urine WBC (0 - 3 WBC/HPF) 0-3 Ur Squamous Epith Cells (NONE SEEN /HPF) 0-5 Calcium Oxalate Crystal (NONE SEEN /HPF) 3+ H Urine Bacteria (NONE SEEN /HPF) NONE SEEN Hyaline Casts (NONE SEEN /LPF) 3-5 Urine Mucus (NONE SEEN /LPF) 4+ H Microbiology: Date/Time Procedure - Status Source Growth 01/09 1142 Blood Culture - RECD Blood 01/09 1142 Blood Culture Gram Stain - RECD Blood 01/09 1142 Blood Culture - RECD Blood 01/09 1142 Blood Culture Gram Stain - RECD Blood Recent Impressions: RADIOLOGY - XR CHEST 1 V 01/09 1148 Report Impression - Status: SIGNED Entered: 01/10/2024 1205 IMPRESSION: No acute abnormality Impression By: [email or web address] - Tha Villagomez M.D. CAT SCAN - CT ABD PELVIS W/CONT 01/09 1200 Report Impression - Status: SIGNED Entered: 01/10/2024 1257 IMPRESSION: 1. Borderline dilated small bowel loops are noted, most prominently in the pelvis, measuring up to 3.0 cm in diameter, non-specific, but may be seen in the setting of early/partial small bowel obstruction. 2. Mild hepatomegaly. Status post cholecystectomy. Impression By: [email or web address] - Anoop Irvin M.D. Results: labs reviewed, vital signs reviewed, vital signs stable, CT results reviewed, x-ray personally reviewed, current med profile rev'd Free Text Obj Notes Free Text Obj Notes: Constitutional: GCS 15, patient awake, alert, no acute distress, appears uncomfortable 2/2 abd pain, HR, BP, O2 saturation reviewed in records Eyes: pupils equal, round, reactive to light, EOMI HENT: normal cephalic, atraumatic, no facial tenderness or crepitus, normal external inspection of ears/nose, no septal hematoma Neck: trachea midline, no crepitus, thyroid without mass CV: regular rate, rhythm, bilateral radial pulses 2+, no cyanosis, no edema, no pulsatile abdominal mass Respiratory: lungs clear bilaterally, respirations even and unlabored, no tenderness to palpation, normal inspection of chest, no crepitus Abdomen: soft, LUQ tender to palpation, non-distended, guarding, non-peritoneal, no masses, no hernia noted : normal external genitalia, pelvis stable Lymph nodes: no cervical or supraclavicular masses noted Musculoskeletal: -All extremities without focal tenderness, without deformity, with ROM intact -no cervical/thoracic/lumbar spine tenderness or step-off Skin: no lacerations or abrasions noted, skin warm to palpation Psychiatric: normal mood and affect, memory intact Neurologic: face symmetrical. Bilateral upper and lower extremity sensation intact Diagnosis, Assessment Plan Free Text DxA P Notes Free Text DxA P Notes: Active Problems: LUQ abd pain Nausea/vomiting Other Problems: Chronic pancreatitis - recent stent 12/20/23 Mild anemia - HgB stable from previous labs Resolved Problems: Incidental findings: Chronic Medical Problems: noted DVT prophylaxis: SCDs, Lovenox GI prophylaxis: diet Lines/Oneil/ETT: PIV Consultants: General surgery, Dr. Balderrama GI, Dr. Morgan Pain mangement, Dr. Arceo Procedures: Plan: Pt was seen and evaluated with Dr Balderrama, who determined the POC Early/partial small bowel obstruction * admitted to medicine team * following for general surgery * agree with GI consult regarding recent pancreatic stent * pain management consult, patient kown to pain group * no plans for surgical intervention at this time * serial abd exams * repeat XR abd 01/10 * NGT to LWS if patient begins having nausea/vomiting * tentative plans for SBFT Mon 01/11 if no improvement with symptoms * NPO, bowel rest * IVF while NPO - NS @ 100 * CT A/P 01/09 completed and reviewed * optimize electrolytes * multimodal pain control with IV and PO narcotic/non-narcotic pain medications * Lovenox for DVT prophylaxis * trend labs, lipase 112 on admission (01/09), amylase pending * will defer evaluation and/or treatment on other issues to medicine and consulting teams Diet: NPO Labs: AM PT/OT recs: pending DME: recs pending Code status: Full code Medical Decision Making: In the event the patient is incapacitated and not able to make their own medical decisions, they have elected sister Wood Ozuna, contact number [phone], to make medical decisions for them. Dispo: Admit; will continue to monitor for ICU needs or any further changes to level of care Quality: Trauma Gen Surg Advanced Care Plan 65 or Older Discussed with: patient Current Medications Current medication review: I attest that the foregoing medication list in the medical record is true, accurate, and complete to the best of my knowledge. VTE Prophylaxis - General VTE prophylaxis initiated: yes (SCD, Lovenox) Thor Balderrama 01/10/24 1850: Attestations Physician Attestation Agree w/findings plan: I have performed a diagnostic evaluation on this patient. I have personally reviewed the assessment and care plan and confirm the diagnosis as above. I have also reviewed and agree with Evie Brown documentation and implemented plans as they have dictated/documented. Thanks for helping take care of this patient Please call with questions. at 1832 at 1851 RPT #:[id number] END OF REPORT [facility] 2024-01-10 14:38:00 [facility] ([facility]) EMERGENCY PROVIDER REPORT REPORT#:[id number] REPORT STATUS: Signed DATE:01/10/24 TIME: 143 PATIENT: TANNER BENDER UNIT #: [id number] ROOM/BED: [place] [address] : 84 AGE: 38 SEX:M PCP PHYS: Geetha Acosta MD SERVICE AUTHOR: Lelo Brand MD REP SRV REP SRV TM: 1438 * ALL edits or amendments must be made on the electronic/computer document * HPI-Abd Pain M Under 40 General Initial Greet Date/Time 01/10/24 1121 Presentation Chief Complaint Abdominal pain, Nausea, Vomiting moderate Free Text HPI Notes Free Text HPI Notes 38-year-old male with a past medical history of chronic pain syndrome, pancreatitis who presents to the emergency department for abdominal pain, nausea , vomiting, decreased appetite inability to hold anything down. He tried Zofran at home. Patient states that he just had a pancreatic stent placed he called his GI doctor on was told to come in if his symptoms continue. Patient was recently just seen here for similar symptoms. Denied fever, chills, chest pain, shortness of breath, diarrhea, constipation, melena, hematochezia, dysuria , testicular pain or swelling. Review of Systems ROS Statements All systems rev neg except as marked. Focused Review of Systems GI Reports: Abdominal pain, Nausea, Vomiting. Past Medical History - Adult Stated Complaint N/V, ABD PAIN, S/P PANCREATIC STENT PLACEMEN Allergies Coded Allergies: Penicillins (Severe, THROAT SWELLS UP 12/17/23) Home Medications Active Scripts DICYCLOMINE (BENTYL) 20 MG PO QID DICYCLOMINE (BENTYL) 20 MG PO QID #30 TABS Prov: 09/03/23 HYDROmorphone (DILAUDID) 2 MG PO Q6H PRN PRN PAIN SCALE 7-10 7 Days #28 TABS Prov: 12/22/23 Reported Medications ALPRAZolam (XANAX) 2 MG PO TID PRN ANXIETY HYDROmorphone (DILAUDID) 2 MG PO Q4H PRN PRN PAIN SCALE 7-10 AMYLASE/LIPASE/PROTEA 120,000/24,000/76,000 U (CREON 24) 24,000 UNITS PO TID MEALS METHOCARBAMOL (ROBAXIN) 750 MG PO Q4H PANTOPRAZOLE DR (PROTONIX) 40 MG PO DAILY ALBUTEROL (PROAIR DIGIHALER 90 MCG/ACT 0.65 GM) 2 PUFF INH RTQ6H Calculated Suicide Risk (nurs) No risk Past Medical History: Reports: Asthma, Chronic pain, Pancreatitis (Chronic). Additional Medical History Anxiety Past Surgical History: Denies: Abdominal surgery. Family History: Denies: CAD < 40 yrs old. Additional Family History n/c Alcohol Use Denies EtOH use Drug Use Denies recreational drugs Smoking status for patients 13 years old or older: Former Smoker Other Social History Primary family support Additional Social History family hx- unknown Physical Exam Vital Signs Vital Signs First Documented: Result Date Time Pulse Ox 99 01/09 1126 B/P 150/90 01/09 1126 B/P Mean 110 01/09 1126 O2 Delivery Room air 01/09 1126 Temp 36.7 01/09 1126 Pulse 133 01/09 1126 Resp 15 01/09 1126 Last Documented: Result Date Time Pulse Ox 98 01/09 1430 B/P 120/65 01/09 1430 B/P Mean 87 01/09 1430 Pulse 67 01/09 1430 Resp 14 01/09 1430 O2 Delivery Room air 01/09 1126 Temp 36.7 01/09 1126 Review of Vital Signs Reviewed, Vital signs abnormal Free Text PE Notes Free Text PE Notes General/Const Awake, Alert HENT Head atraumatic, normocephalic, ears/nose/throat airway patent, TMs clear bilaterally MS Neck Neck Supple, no swelling, no tenderness to palpation Resp/Chest CTAB, No respiratory distress, no rales, no rhonchi, no wheezing Cardiovascular Normal rate, regular rhythm, heart sounds. No rubs murmurs gallops Abdomen/GI Normal bowel sounds, soft, abdominal tenderness to palpation, nondistended. No rebound or guarding MS noLower Ext/Pelvis/MS No swelling, Non-tender Skin Skin Warm, Dry, no abrasions, rashes, lacerations Neurologic Neurologic Oriented X3, Speech NL, no focal neuro deficits, CN 2-12 intact, 5 /5 strength, sensation intact Interpretation Diagnostics Lab Results Interpretation Results Laboratory Tests 01/10/24 1140: [Embedded Image Not Available] Laboratory Tests: 01/09 01/09 01/09 1142 1140 1140 Chemistry Sodium (134 - 147 mEq/L) 141 Potassium (3.4 - 5.0 mEq/L) 3.8 Chloride (100 - 108 mEq/L) 109 H Carbon Dioxide (21 - 33 mEq/l) 27 Anion Gap (0 - 20) 9 BUN (7 - 25 mg/dL) 5 L Creatinine (0.6 - 1.3 mg/dL) 0.9 Glomerular Filtr Rate (105 - 110) 111.4 H Glucose (77 - 141 mg/dL) 99 Lactic Acid (0.4 - 1.9 mmol/L) 1.0 Calcium (8.0 - 10.5 mg/dL) 8.6 Total Bilirubin (0.0 - 1.0 mg/dL) 1.30 H AST (8 - 34 IUnit/L) 13 ALT (10 - 49 IUnit/L) 14 Total Alk Phosphatase (20 - 125 IUnit/L) 62 Troponin I High Sens (0 - 54 ng/L) < 3 B-Natriuretic Peptide (0 - 100 PG/ML) 36.0 Total Protein (6.4 - 8.2 g/dL) 7.7 Albumin (3.4 - 5.0 g/dL) 4.10 Lipase (13 - 57 U/L) 112 H Hematology WBC (4.5 - 11.0 x10 3/uL) 6.6 RBC (4.00 - 5.60 x10 6/uL) 4.36 Hgb (12.5 - 16.9 g/dL) 11.5 L Hct (37.5 - 50.7 %) 35.8 L MCV (81.0 - 99.0 fL) 82.1 MCH (27.0 - 33.0 pg) 26.4 L MCHC (33.0 - 37.0 g/dL) 32.1 L RDW (11.5 - 14.5 %) 15.4 H Plt Count (150 - 400 x10 3/uL) 408 H MPV (7.0 - 9.0 fL) 10.0 H Neut % (Auto) (56.0 - 77.0 %) 55.5 L Lymph % (Auto) (14.0 - 32.0 %) 33.3 H Randolph % (Auto) (4.8 - 9.0 %) 8.2 Eos % (Auto) (0.3 - 3.7 %) 1.8 Baso % (Auto) (0.0 - 2.0 %) 0.9 Neut # (Auto) (2.0 - 7.6 x10 3/uL) 3.67 Lymph # (Auto) (1.0 - 3.8 x10 3/uL) 2.20 Randolph # (Auto) (0.1 - 0.8 x10 3/uL) 0.54 Eos # (Auto) (0.0 - 0.2 x10 3/uL) 0.12 Baso # (Auto) (0.0 - 0.2 x10 3/uL) 0.06 Abs Immat Gran (auto) (0.00 - 0.03 x10 3/uL) 0.02 Immature Gran % (0.0 - 2.0 %) 0.3 Nucleated RBC % (0 - 0 %) 0.0 Nucleated RBCs # (Man) (0.0 - 0.1 x10 3/uL) 0.00 Urines Urine Color (YEL/STRAW) YELLOW Urine Appearance (CLEAR) CLEAR Urine pH (5.0 - 7.0) 5.0 Ur Specific Charlotte (1.005 - 1.030) 1.023 Urine Protein (NEGATIVE) NEGATIVE Urine Glucose (UA) (NEGATIVE) NEGATIVE Urine Ketones (NEGATIVE) NEGATIVE Urine Blood (NEGATIVE) NEGATIVE Urine Nitrite (NEGATIVE) NEGATIVE Urine Bilirubin (NEGATIVE) NEGATIVE Urine Urobilinogen (0.2 - 1.0 mg/dL) 0.2 Ur Leukocyte Esterase (NEGATIVE) NEGATIVE Urine RBC (0 - 3 RBC/HPF) 0-3 Urine WBC (0 - 3 WBC/HPF) 0-3 Ur Squamous Epith Cells (NONE SEEN /HPF) 0-5 Calcium Oxalate Crystal (NONE SEEN /HPF) 3+ H Urine Bacteria (NONE SEEN /HPF) NONE SEEN Hyaline Casts (NONE SEEN /LPF) 3-5 Urine Mucus (NONE SEEN /LPF) 4+ H Microbiology: Date/Time Procedure - Status Source Growth 01/09 114 Blood Culture - RECD Blood 01/09 1142 Blood Culture Gram Stain - RECD Blood 01/09 1142 Blood Culture - RECD Blood 01/09 1142 Blood Culture Gram Stain - RECD Blood Recent Impressions: RADIOLOGY - XR CHEST 1 V 01/09 1148 Report Impression - Status: SIGNED Entered: 01/10/2024 1205 IMPRESSION: No acute abnormality Impression By: Tanya Villagomez M.D. CAT SCAN - CT ABD PELVIS W/CONT 01/09 1200 Report Impression - Status: SIGNED Entered: 01/10/2024 1257 IMPRESSION: 1. Borderline dilated small bowel loops are noted, most prominently in the pelvis, measuring up to 3.0 cm in diameter, non-specific, but may be seen in the setting of early/partial small bowel obstruction. 2. Mild hepatomegaly. Status post cholecystectomy. Impression By: RitoASAdelfo Irvin M.D. Lab Imaging Statement Laboratory radiographic studies reviewed and considered in the medical decision-making. ECG #1 Interpretation Text/Dict Note Sinus tachycardia [address] elevation, ST depression or T wave inversion noted. Date 01/10/24 Time 1131 Interpreted by and reviewed by me, ED physician Free Text I D Notes Free Text I D Notes Recent Impressions: RADIOLOGY - XR CHEST 1 V 01/09 1148 Report Impression - Status: SIGNED Entered: 01/10/2024 1205 IMPRESSION: No acute abnormality Impression By: Tanya Villagomez M.D. CAT SCAN - CT ABD PELVIS W/CONT 01/09 1200 Report Impression - Status: SIGNED Entered: 01/10/2024 1257 IMPRESSION: 1. Borderline dilated small bowel loops are noted, most prominently in the pelvis, measuring up to 3.0 cm in diameter, non-specific, but may be seen in the setting of early/partial small bowel obstruction. 2. Mild hepatomegaly. Status post cholecystectomy. Impression By: RitoASAdelfo Irvin M.D. Re-Evaluation MDM ED Course Medication(s) Ordered Medication(s) Ordered: Anti-Infective Agents Sig/José Miguel Start time Last Medication Dose Route Stop Time Status Admin Ceftriaxone Sodium 1,000 MG X1ED STA 01/09 1137 DC 01/09 Sodium Chloride 10 ML IV 01/09 1139 1149 Metronidazole/Sodium 100 ML X1ED STA 01/09 1137 DC 01/09 Chloride IV 01/09 1236 1150 Central Nervous System Agents Sig/José Miguel Start time Last Medication Dose Route Stop Time Status Admin Morphine Sulfate 4 MG X1ED STA 01/09 1328 DC 01/09 IV 01/09 1329 1357 Morphine Sulfate 4 MG X1ED STA 01/09 1138 DC 01/09 IV 01/09 1139 1150 Diagnostic Agents Sig/José Miguel Start time Last Medication Dose Route Stop Time Status Admin Iopamidol 100 ML .STK-MED ONE 01/09 1201 DC 01/09 IV 01/09 1202 1201 Electrolytic, Caloric, And Sneha Sig/José Miguel Start time Last Medication Dose Route Stop Time Status Admin Sodium Chloride 1,000 ML .Q10H 01/09 1500 AC IV 01/12 1118 Sodium Chloride 1,772.73 ML BOLUS ONCE STA 01/09 1136 DC 01/09 IV 01/09 1137 1148 Gastrointestinal Drugs Sig/José Miguel Start time Last Medication Dose Route Stop Time Status Admin Ondansetron HCl 4 MG Q6H PRN PRN 01/09 1500 AC IV 01/12 1118 Ondansetron HCl 4 MG X1ED STA 01/09 1138 DC 01/09 IV 01/09 1139 1149 Free Text MDM Notes Free Text MDM Notes 38-year-old male with a past medical history of chronic pain syndrome, pancreatitis who presents to the emergency department for abdominal pain, nausea , vomiting, decreased appetite inability to hold anything down. He tried Zofran at home. Patient states that he just had a pancreatic stent placed he called his GI doctor on was told to come in if his symptoms continue. Patient was recently just seen here for similar symptoms. Denied fever, chills, chest pain, shortness of breath, diarrhea, constipation, melena, hematochezia, dysuria , testicular pain or swelling. Tachycardic. Generalized abdominal tenderness to palpation. Labs show elevated lipase of 112, normal lactic acid no elevated white blood cell count. Normal troponin. Normal urine. EKG showed sinus tachycardia. Chest x-ray was negative. CT scan showed possible early bowel obstruction borderline dilated small bowel loops are noted. Mild hepatomegaly. Patient treated for sepsis given elevated heart rate and abdominal pain he was given IV fluids, Rocephin and metronidazole. Morphine and Zofran was also given for pain and nausea. Will admit to hospital medicine and placed a consult for general surgery. Patient Discharge Departure Vital Signs/Condition Vital Signs First Documented: Result Date Time Pulse Ox 99 01/09 1126 B/P 150/90 01/09 1126 B/P Mean 110 01/09 1126 O2 Delivery Room air 01/09 1126 Temp 36.7 01/09 1126 Pulse 133 01/09 1126 Resp 15 01/09 1126 Last Documented: Result Date Time Pulse Ox 98 01/09 1430 B/P 120/65 01/09 1430 B/P Mean 87 01/09 1430 Pulse 67 01/09 1430 Resp 14 01/09 1430 O2 Delivery Room air 01/09 1126 Temp 36.7 01/09 1126 All vital signs available at the time of this entry have been reviewed. Condition Stable Clinical Impression Clinical Impression Primary Impression: Abdominal pain Secondary Impressions: Bowel obstruction Disposition Decision Hospitalize Hosp Physician Name Toro Quevedo RUBBER GOODS INSPECTOR TESTER )( Accepts Hospitalization Yes )( Reason for Hospitalization Abdominal pain, nausea, vomiting, small bowel obstruction )( Accepted Time 1444 )( Accepted Date 01/10/24 Call Information will see patient Discharge/Care Plan Counseled Regarding Diagnosis, Lab results, Imaging studies, Need for admission Admit Note I have spoken with the patient and/or caregivers. I have explained the patient's condition, diagnoses and treatment plan based on the information available to me at this time. I have answered the patient's and/or caregiver's questions and addressed any concerns. The patient and/or caregivers have as good an understanding of the patient's diagnosis, condition and treatment plan as can be expected at this point. The patient has been stabilized within the capability of the emergency department. The patient will be transported for further care and management or will be moved to an observation or inpatient service. I have communicated with the staff or medical practitioner taking over this patient's care. at 1638 RPT #:[id number] END OF REPORT [facility] 2023-12-21 12:59:00 [facility] ([facility] Gastroenterology Progress Note REPORT#:[id number] REPORT STATUS: Signed REPORT INITIALIZATION DATE:12/21/23 TIME: 125 PATIENT: TANNER BENDER UNIT #: [id number] ROOM/BED: [place] [address] : 84 AGE: 38 SEX: M ATTEND: Henry Mares MD ADM AUTHOR: Yessi Velasquez RUBBER GOODS INSPECTOR TESTER REPT SERVICE DT/TIME: 12/21/23 1259 * ALL edits or amendments must be made on the electronic/computer document * Yessi Velasquez 12/21/23 1259: Subjective Chief complaint: Pancreatic duct stricture HPI: This is a 37-year-old man who came in to see me yesterday at the office complaining of abdominal pain nausea vomiting and bloody diarrhea. He was recently hospitalized at [facility] and was diagnosed with chronic pancreatitis secondary to pancreatic stricture. Patient is a smoker. Does not drink alcohol. Labs reviewed mild anemia. 12/18: feeling better. ERCP tomorrow 12/19: s/p ERCP mildly dilated CBD but no filling defect. PD mildy dilated but not stricture. PD stent placed. 12/20-C/O epigastric discomfort, tolerating PO Review of Systems Constitutional: Denies: chills, generalized weakness. Skin: Denies: rash, swelling. Allergy/Immun: Denies: allergic reaction, anaphylaxis. Eyes: Denies: redness, discharge. ENT: Denies: earache, nose bleeding. GI: Reports: abdominal pain. Denies: vomiting. Heme: Denies: adenopathy, petechiae. Psych: Denies: agitation, anxiety. Objective General VS/I O: Last Documented: Result Date Time Pulse Ox 95 12/20 1039 B/P 122/74 12/20 1039 B/P Mean 89.9 12/20 1039 Temp 36.6 12/20 1039 Pulse 69 12/20 1039 Resp 16 12/20 1039 O2 Delivery Room air 12/19 1445 O2 Flow Rate 0 12/19 1445 24 hour I O ending at 0700: 12/20 0712/19 1900 Intake Total 600.00 Output Total Balance 600.00 Intake, IV 600.00 PATIENT WEIGHT: Weight (lb): Weight (oz): Weight (kg): 56.364 Medications: Active Meds + DC'd Last 24 Hrs Diphenhydramine HCl (BENADRYL) 12.5 MG PACU ONCE PRN IV (DC) Fentanyl Citrate (SUBLIMAZE) 100 MCG PACU Q10MIN PRN PRN IV (DC) Fentanyl Citrate (SUBLIMAZE) 50 MCG PACU Q10MIN PRN PRN IV (DC) Hydralazine HCl (APRESOLINE) 5 MG PACU Q10MIN PRN PRN IV (DC) Hydrocodone Bitart/Acetaminophen (NORCO 5/325) 1 TAB PACU ONCE PO (DC) Hydromorphone HCl (DILAUDID) 1 MG PACU Q10MIN PRN PRN IV (DC) Hydromorphone HCl (DILAUDID) 0.5 MG PACU Q5MIN PRN PRN IV (DC) Insulin Human Lispro (HUMALOG) 0 PACU ONCE PRN SUBQ (DC) Labetalol HCl (labetalol 100 mg/20 mL Inj) 5 MG PACU Q10MIN PRN PRN IV ( DC) Meperidine HCl (MEPERIDINE HCL/PF) 12.5 MG PACU ONCE PRN IV (DC) Morphine Sulfate (morphine SULFATE) 2 MG PACU Q10MIN PRN PRN IV (DC) Ondansetron HCl (ZOFRAN) 4 MG PACU ONCE PRN IV (DC) Promethazine HCl (PHENERGAN) 25 MG PACU ONCE PRN PO (DC) Ropivacaine (NAROPIN 0.5% 150 MG/30mL) 150 MG ASDIR PRN LOCAL (DC) Tramadol HCl (ULTRAM) 50 MG PACU ONCE PO (DC) Indomethacin (Indomethacin) 100 MG ONCE ONE RECTAL (DC) Indomethacin (Indomethacin) 100 MG ONCE ONE RECTAL (DC) Dexamethasone Sodium Phosphate (DECADRON) 0 .STK-MED ONE .ROUTE (DC) Ondansetron HCl (ZOFRAN) 0 .STK-MED ONE .ROUTE (DC) Fentanyl Citrate (SUBLIMAZE) 0 .STK-MED ONE .ROUTE (DC) Lidocaine HCl (XYLOCAINE) 0 .STK-MED ONE .ROUTE (DC) Midazolam HCl (VERSED) 0 .STK-MED ONE .ROUTE (DC) Propofol (DIPRIVAN 200MG/20ML INJECTION) 20 ML .STK-MED ONE IV (DC) Succinylcholine Chloride (QUELICIN FLIPTOP) 0 .STK-MED ONE IV (DC) Acetaminophen (TYLENOL) 650 MG Q4H PRN PRN PO Hydrocodone Bitart/Acetaminophen (NORCO 5/325) 1 TAB Q6H PRN PRN PO Hydromorphone HCl (DILAUDID) 2 MG Q6H PRN PRN PO Methocarbamol (ROBAXIN) 500 MG Q8H PRN PRN PO Hydromorphone HCl (DILAUDID) 0.5 MG Q4H PRN IV Lorazepam (ATIVAN) 0.5 MG Q6H PRN PRN IV Docusate Sodium (COLACE) 100 MG BID PO Hydralazine HCl (APRESOLINE) 10 MG Q6H PRN PRN IV Ondansetron HCl (ZOFRAN) 4 MG Q4H PRN PRN IV Physical Exam General appearance: alert, awake, oriented HEENT: anicteric Cardiovascular: normal heart sounds Respiratory: clear to auscultation Abdomen: non-tender Extremities: no edema Neuro/BOBBIN DISKER: alert, oriented X 3 Skin: dry, normal temperature Results Findings/Data: Laboratory Tests 12/21/23524: [Embedded Image Not Available] Laboratory Tests 12/20 524 Chemistry Sodium (134 - 147 mEq/L) 136 Potassium (3.4 - 5.0 mEq/L) 4.8 Chloride (100 - 108 mEq/L) 101 Carbon Dioxide (21 - 33 mEq/l) 29 Anion Gap (0 - 20) 11 BUN (7 - 25 mg/dL) 14 Creatinine (0.6 - 1.3 mg/dL) 0.9 Glomerular Filtr Rate (105 - 110) 112.1 H Glucose (77 - 141 mg/dL) 119 Calcium (8.0 - 10.5 mg/dL) 9.3 Total Bilirubin (0.0 - 1.0 mg/dL) 0.90 AST (8 - 34 IUnit/L) 26 ALT (10 - 49 IUnit/L) 32 Total Alk Phosphatase (20 - 125 IUnit/L) 75 Total Protein (6.4 - 8.2 g/dL) 7.3 Albumin (3.4 - 5.0 g/dL) 3.60 Laboratory Tests 12/20 0525 Hematology WBC (4.5 - 11.0 x10 3/uL) 10.8 RBC (4.00 - 5.60 x10 6/uL) 4.42 Hgb (12.5 - 16.9 g/dL) 11.8 L Hct (37.5 - 50.7 %) 37.1 L MCV (81.0 - 99.0 fL) 83.9 MCH (27.0 - 33.0 pg) 26.7 L MCHC (33.0 - 37.0 g/dL) 31.8 L RDW (11.5 - 14.5 %) 14.8 H Plt Count (150 - 400 x10 3/uL) 286 MPV (7.0 - 9.0 fL) 10.0 H Neut % (Auto) (56.0 - 77.0 %) 76.5 Lymph % (Auto) (14.0 - 32.0 %) 12.1 L Randolph % (Auto) (4.8 - 9.0 %) 10.8 H Eos % (Auto) (0.3 - 3.7 %) 0.1 L Baso % (Auto) (0.0 - 2.0 %) 0.2 Neut # (Auto) (2.0 - 7.6 x10 3/uL) 8.26 H Lymph # (Auto) (1.0 - 3.8 x10 3/uL) 1.30 Randolph # (Auto) (0.1 - 0.8 x10 3/uL) 1.16 H Eos # (Auto) (0.0 - 0.2 x10 3/uL) 0.01 Baso # (Auto) (0.0 - 0.2 x10 3/uL) 0.02 Abs Immat Gran (auto) (0.00 - 0.03 x10 3/uL) 0.03 Immature Gran % (0.0 - 2.0 %) 0.3 Nucleated RBC % (0 - 0 %) 0.0 Nucleated RBCs # (Man) (0.0 - 0.1 x10 3/uL) 0.00 Radiology Data: Recent Impressions: RADIOLOGY - XR FLUOROSCOPY 0-60 MIN 12/19 1423 Report Impression - Status: SIGNED Entered: 12/20/2023 142 IMPRESSION: Radiologic interpretation not rendered. Radiologist was not present for procedure. Correlation with intraoperative findings needed. RADIATION EXPOSURE: Data not provided LOCATION: [facility] Impression By: Brea - Amrit Maldonado M.D. Results: labs reviewed Diagnosis, Assessment Plan Free Text A P: s/p ERCP mildly dilated CBD but no filling defect. PD mildy dilated but not stricture. PD stent placed Indomethacin given rectally IV fluids Ok to start low fat diet Deloris Haddad 01/14/24 1108: Diagnosis, Assessment Plan Free Text A P: Patient's chart reviewed along with examined and interviewed with RUBBER GOODS INSPECTOR TESTER and I agree with plan as written at 1301 at 1112 RPT #:[id number] END OF REPORT [facility] 2023-12-21 11:19:00 [facility] ([facility] Hospitalist Discharge Summary REPORT#:[id number] REPORT STATUS: Signed REPORT INITIALIZATION DATE:12/21/23 TIME: 111 PATIENT: TANNER BENDER UNIT #: [id number] ROOM/BED: [place] [address] : 84 AGE: 37 SEX: M ATTEND: Henry Mares MD ADM AUTHOR: Abiodun Rubio DO REPT SERVICE DT/TIME: 12/21/23 1119 * ALL edits or amendments must be made on the electronic/computer document * General Information Problem List/A P: 1. Intractable abdominal pain 2. Pancreatitis 3. Drug-seeking behavior 4. Chronic pancreatitis Discharge date: 12/21/23 Discharge diagnosis: s/p PD stent for chronic pancreatitis Hospital course: 37-year-old male history of pancreatitis, Asthma, Anxiety, cholecystectomy appendectomy presents with left upper quadrant pain over the last 1-1/2 weeks radiates into the back, concerning for acute on chronic pancreatitis, was evaluated by GI, CT scan reviewed, scheduled for ERCP. Yesterday patient had ERCP with PD stent placement, tolerated procedure well, LFTs this morning unremarkable, will discharge home with outpatient follow-up at the GI clinic Med Rec Med Rec Discharge meds: Continue taking these medications: ALPRAZolam (XANAX) 2 MG TAB 2 MILLIGRAM ORAL THREE TIMES A DAY. as needed for ANXIETY ALBUTEROL (PROAIR DIGIHALER 90 MCG/ACT 0.65 GM) 90 MCG INHALER 2 PUFF INHALATION RT - EVERY 6 HOURS. HYDROmorphone (DILAUDID) 2 MG TAB 2 MILLIGRAM ORAL EVERY 4 HOURS NEEDED. as needed for PAIN SCALE 7-10 AMYLASE/LIPASE/PROTEA 120,000/24,000/76,000 U (CREON 24) 24-76-120K CAP.DR 24,000 UNITS ORAL THREE TIMES DAILY WITH MEALS. DICYCLOMINE (BENTYL) 20 MG TAB 20 MILLIGRAM ORAL FOUR TIMES A DAY. Qty = 30 METHOCARBAMOL (ROBAXIN) 750 MG TAB 750 MILLIGRAM ORAL EVERY FOUR HOURS. Comments: TAKE 1 TABLET BY MOUTH EVERY 6 HOURS NEEDED FOR MUSCLE TENSION OR S; # 28 - SIG Obtained From [facility] PANTOPRAZOLE DR (PROTONIX) 40 MG TAB.DR 40 MILLIGRAM ORAL DAILY. Comments: TAKE 1 TABLET BY MOUTH DAILY; #30 - SIG Obtained From [facility] Discharge Instructions PCP Discharge to: Home/Self Care Additional Discharge Routines: PCP Follow-Up, Clinical Operations Manager Follow-Up Diet: Resume Home Diet/Feeds Follow-up Appointments PCP follow-up: PCP: Geetha Acosta MD PCP follow up timeframe: In 2 days Consulting provider 1: Provider 1: Maru Morgan MD Specialty: Gastroenterology at 1121 RPT #:[id number] END OF REPORT [facility] 2023-12-20 14:03:00 [facility] ([facility]) Gastroenterology Progress Note REPORT#:[id number] REPORT STATUS: Signed REPORT INITIALIZATION DATE:12/20/23 TIME: 1403 PATIENT: TANNER BENDER UNIT #: [id number] ROOM/BED: [place] [address] : 84 AGE: 37 SEX: M ATTEND: Henry Mares MD ADM AUTHOR: Maru Morgan MD REPT SERVICE DT/TIME: 12/20/23 1403 * ALL edits or amendments must be made on the electronic/computer document * Subjective Chief complaint: Pancreatic duct stricture HPI: This is a 37-year-old man who came in to see me yesterday at the office complaining of abdominal pain nausea vomiting and bloody diarrhea. He was recently hospitalized at [facility] and was diagnosed with chronic pancreatitis secondary to pancreatic stricture. Patient is a smoker. Does not drink alcohol. Labs reviewed mild anemia. 12/18: feeling better. ERCP tomorrow 12/19: s/p ERCP mildly dilated CBD but no filling defect. PD mildy dilated but not stricture. PD stent placed. Objective Physical Exam HEENT: anicteric Cardiovascular: normal heart sounds Respiratory: clear to auscultation Abdomen: non-tender Extremities: no edema Diagnosis, Assessment Plan Problem List/A P: 1. Chronic pancreatitis 2. Intractable vomiting with nausea 3. Colitis Free Text A P: s/p ERCP mildly dilated CBD but no filling defect. PD mildy dilated but not stricture. PD stent placed Indomethacin given rectally IV fluids Ok to start low fat diet at 1404 RPT #:[id number] END OF REPORT [facility] 2023-12-20 12:38:00 [id number] [place] [id number] PATIENT NAME: TANNER BENDER ADMIT DATE: 12/18/23 ACCOUNT NO: [id number] ROOM NO: [facility] AGE: 37 REPORT TYPE: ENDOSCOPY REPORT SEX: M ADMITTING PHYSICIAN:Henry Mares MD ATTENDING PHYSICIAN:Henry Mares MD Gastroenterology Patient Name: Tanner Bender Procedure Date: 12/20/2023 12:38 PM Date of : 1985 Procedure: ERCP Indications: Chronic pancreatitis Providers: Maru Morgan MD Referring MD: Self Referred Requesting Provider: Medicines: Monitored Anesthesia Care Procedure: Pre-Anesthesia Assessment: - Prior to the procedure, a History and Physical was performed, and patient medications, allergies and sensitivities were reviewed. The patient's tolerance of previous anesthesia was reviewed. - The risks and benefits of the procedure and the sedation options and risks were discussed with the patient. All questions were answered and informed consent was obtained. - Patient identification and proposed procedure were verified prior to the procedure by the physician, the nurse, the manager intern and the archives technician. The procedure was verified in the procedure room. - Pre-procedure physical examination revealed no contraindications to sedation. - ASA Grade Assessment: III - A patient with severe systemic disease. - After reviewing the risks and benefits, the patient was deemed in satisfactory condition to undergo the procedure. - Monitored anesthesia care under the supervision of a CONSUMER MARKETING MANAGER was determined to be medically necessary for this procedure based on review of the patient's medical history, medications, and prior anesthesia history. After obtaining informed consent, the scope was passed under direct vision. Throughout the procedure, the patient's blood pressure, pulse, and oxygen saturations were monitored continuously. The was introduced through the mouth, and advanced to the duodenum and used to inject contrast into the bile PATIENT NAME: TANNER BENDER duct and ventral pancreatic duct. The ERCP was accomplished without difficulty. The patient tolerated the procedure well. Findings: The woven wood shade assembler film was normal. The esophagus was successfully intubated under direct vision. The scope was advanced to a normal major papilla in the descending duodenum without detailed examination of the pharynx, larynx and associated structures, and upper GI tract. The upper GI tract was grossly normal. The bile duct was deeply cannulated with the short-nosed traction sphincterotome. Contrast was injected. I personally interpreted the bile duct and pancreatic duct images. Ductal flow of contrast was adequate. Image quality was adequate. Contrast extended to the entire biliary tree. Contrast extended to the pancreatic duct. The main bile duct was mildly dilated and diffusely dilated. The largest diameter was 8 mm. The biliary tree was otherwise normal. The ventral pancreatic duct was deeply cannulated with the short-nosed traction sphincterotome. Contrast was injected. The ventral pancreatic duct in the head of the pancreas, pancreatic duct in the genu of the pancreas and pancreatic duct in the body of the pancreas were dilated mildly and diffusely. A wire was passed into the ventral pancreatic duct. One 5 Fr by 7 cm plastic pancreatic stent with no internal flaps was placed into the ventral pancreatic duct. The stent was in good position. Complications: No immediate complications. Estimated Blood Loss: Estimated blood loss: none. Impression: - The entire main bile duct was mildly dilated. - Mild dilatation of the ventral pancreatic duct in the head of the pancreas, pancreatic duct in the body of the pancreas and the pancreatic duct in the genu of the pancreas was found diffusely. - One plastic pancreatic stent was placed into the ventral pancreatic duct. Recommendation: - Return patient to hospital [facility] for ongoing care. Procedure Code(s): --- Professional --- 90883, Endoscopic retrograde cholangiopancreatography (ERCP); with placement of endoscopic stent into biliary or pancreatic duct, including pre- and post-dilation and guide wire passage, when performed, including sphincterotomy, when performed, each stent 06280, Combined endoscopic catheterization of the biliary and pancreatic ductal systems, radiological supervision and interpretation Diagnosis Code(s): --- Professional --- K86.89, Other specified diseases of pancreas K86.1, Other chronic pancreatitis K83.8, Other specified diseases of biliary tract CPT copyright 2022 [employer]. All rights reserved. The codes documented in this report are preliminary and upon green end man review may PATIENT NAME: TANNER BENDER be revised to meet current compliance requirements. Maru Morgan MD 12/20/2023 2:08:33 PM Number of Addenda: 0 Note Initiated On: 12/20/2023 12:38 PM Provation {[id number]}.pdf ProVation FT PDF at 1408 PATIENT NAME: TANNER BENDER [facility] 2023-12-20 12:29:00 [facility] Progress Note REPORT#:[id number] REPORT STATUS: Signed REPORT INITIALIZATION DATE:12/20/23 TIME: 1228 PATIENT: TANNER BENDER UNIT #: [id number] ROOM/BED: 5518-1 : 84 AGE: 37 SEX: M ATTEND: Henry Mares MD ADM AUTHOR: Abiodun Rubio DO REPT SERVICE DT/TIME: 12/20/23 1229 * ALL edits or amendments must be made on the electronic/computer document * Subjective Chief complaint: Patient is sitting comfortably in bed, abdominal pain is better this morning, denies any nausea or vomiting Objective General VS/I O: Vital Signs: Date Time Temp Pulse Resp B/P B/P Pulse O2 O2 Flow FiO2 Mean Ox Delivery Rate 12/19 1124 98.8 59 146/85 105.1 97 12/19 0813 98.1 62 117/72 87.3 96 12/19 0405 98.1 59 14 124/82 95.8 92 Room air 12/18 2355 98.8 64 16 128/78 94.7 96 Room air 12/18 1918 100.9 69 16 145/91 108.9 95 Room air 12/18 1702 101.8 70 158/94 115.1 97 12/18 1335 98.8 68 146/90 108.4 96 24 hour I O ending at 0700: 12/19 0700 12/18 1900 Intake Total 800 Output Total Balance 800 Intake, Oral 800 Number 0 Bowel Movements Number Voids 3 PATIENT WEIGHT: Weight (lb): Weight (oz): Weight (kg): 56.364 Medications: Active Meds + DC'd Last 24 Hrs Acetaminophen (TYLENOL) 650 MG Q4H PRN PRN PO Hydrocodone Bitart/Acetaminophen (NORCO 5/325) 1 TAB Q6H PRN PRN PO Hydromorphone HCl (DILAUDID) 2 MG Q6H PRN PRN PO Methocarbamol (ROBAXIN) 500 MG Q8H PRN PRN PO Hydromorphone HCl (DILAUDID) 0.5 MG Q4H PRN IV Lorazepam (ATIVAN) 0.5 MG Q6H PRN PRN IV Docusate Sodium (COLACE) 100 MG BID PO Acetaminophen (TYLENOL) 650 MG Q4H PRN PRN PO (DC) Hydralazine HCl (APRESOLINE) 10 MG Q6H PRN PRN IV Ondansetron HCl (ZOFRAN) 4 MG Q4H PRN PRN IV Physical Exam General appearance: alert, awake, oriented Head/Eyes: atraumatic, normocephalic, PERRLA Cardiovascular: normal capillary refill, normal heart sounds, regular rate rhythm Respiratory: aerating well, symmetric expansion, no distress Abdomen: tenderness, normal bowel sounds, soft Genitourinary: no flank pain, no urinary catheter Extremities: no calf tenderness, no clubbing, no cyanosis Musculoskeletal: no muscle spasm Neuro/BOBBIN DISKER: alert, oriented X 3, CNII-XII intact Diagnosis, Assessment Plan Problem List/A P: 1. Intractable abdominal pain 2. Pancreatitis 3. Drug-seeking behavior 4. Chronic pancreatitis Free Text DxA P Notes Free text DxA P notes: 37-year-old presenting with acute on chronic pancreatitis with significant abdominal pain * Appreciated input from GI and pain management * Gentle hydration * Patient is n.p.o. pending procedure * Scheduled for ERCP today * Follow-up with post ERCP recommendation * Pain management * Follow-up with morning labs at 1230 RPT #:[id number] END OF REPORT [facility] 2023-12-20 09:41:00 [facility] ([facility]) Pain Management Progress Note REPORT#:[id number] REPORT STATUS: Signed REPORT INITIALIZATION DATE:12/20/23 TIME: 940 PATIENT: TANNER BENDER UNIT #: [id number] ROOM/BED: [place] [address] : 84 AGE: 38 SEX: M ATTEND: Henry Mares MD ADM AUTHOR: Jeannine De Los Santos RUBBER GOODS INSPECTOR TESTER REPT SERVICE DT/TIME: 12/20/23 0941 * ALL edits or amendments must be made on the electronic/computer document * Subjective Chief complaint: Lower Quadrant Pain Interval History 12/20/2023 Patient chart note and event reviewed patient was seen laying in the bed, hemodynamically stable, pain is manageable pain seeking behaviour No new complaint Denies insomnia Denies constipation sleep is okay Mood is okay HPI: Requesting clinician: Henry Oseguera Reason for consult: Acute complex pain syndrome for evaluation and management The patient is 37-year-old male history of pancreatitis cholecystectomy appendectomy presents with left upper quadrant pain radiates into the back. Review of Systems Additional notes: Review was conducted and was negative except for what's noted in the HPI and Medical History. The following systems were reviewed: Constitutional, cardiovascular, respiratory, gastrointestinal, genitourinary, musculoskeletal, neurologic, psychiatric, endocrinological, and hematologic Objective General VS/I O: Vital Signs Date Temp Pulse Resp B/P B/P Mean Pulse Ox FiO2 12/18-12/19 98.1-101.8 59-70 14-16 117-158/72-94 87.3-115.1 92-97 Last Documented: Result Date Time Pulse Ox 96 12/19 812 B/P 117/72 12/19 812 B/P Mean 87.3 12/19 812 Temp 98.1 12/19 812 Pulse 62 12/19 812 O2 Delivery Room air 12/19 0405 Resp 14 12/19 0405 24 hour I O ending at 0700: 12/19 0700 12/18 1900 Intake Total 800 Output Total Balance 800 Intake, Oral 800 Number 0 Bowel Movements Number Voids 3 PATIENT WEIGHT: Weight (lb): Weight (oz): Weight (kg): 56.364 Medications: Active Meds + DC'd Last 24 Hrs Acetaminophen (TYLENOL) 650 MG Q4H PRN PRN PO Hydrocodone Bitart/Acetaminophen (NORCO 5/325) 1 TAB Q6H PRN PRN PO Hydromorphone HCl (DILAUDID) 2 MG Q6H PRN PRN PO Methocarbamol (ROBAXIN) 500 MG Q8H PRN PRN PO Hydromorphone HCl (DILAUDID) 0.5 MG Q4H PRN IV Lorazepam (ATIVAN) 0.5 MG Q6H PRN PRN IV Docusate Sodium (COLACE) 100 MG BID PO Acetaminophen (TYLENOL) 650 MG Q4H PRN PRN PO (DC) Hydralazine HCl (APRESOLINE) 10 MG Q6H PRN PRN IV Ondansetron HCl (ZOFRAN) 4 MG Q4H PRN PRN IV Dietitian nutrition assessment The data set between the solid lines has been imported from the dietitian's assessment. BMI Calculated: 16.9 Nutrition related diagnosis: Severe malnutrition Nutrition diagnosis details: Nutrition problem: Severe malnutrition Nutrition etiology: Decreased intake, Nausea/vomiting, Acute illness Nutrition signs and symptoms: 19.4% unintentional wt loss , x 1 month, Eating < 50% estimated needs , for > 5 days Nutrition prescription: 1) Continue regular diet. 2) RD adding Ensure Plus HP TID. Dietitian name: Tanisha Walls, DIET Assessment completed: 12/18/23 Physical Exam General appearance: alert, awake, oriented, no acute distress, pleasant, conversational, mental status normal, no respiratory distress Head/eyes: atraumatic, PERRLA Neck: full range of motion Respiratory: clear to auscultation Abdomen: soft Extremities: moves all Neuro/BOBBIN DISKER: alert Diagnosis, Assessment Plan Free text A P: Assessment/ Plan Patient assessed. chart reviewed. Will continue on current medical management. Daily Plan 12/20/2023 1. Acute complex pain syndrome 2/2 Pancreatitis - Dilaudid 0.5mg q4hr PRN for pain 7-10 second line - Dilaudid 2mg tab q6hr PRN for pain 7-10 Firstline - Mason 5/325 mg q6hr PRN for pain 4-6 -Tylenol 650mg q4hr PRN for pain 1-3 2. Muscle Spasm Robaxin 500mg 1 tab q8hr PRN 3. Bowel Regimen - by Primary team -start pain regimen as above -Monitor for S/E such as AMS, Lethargy/sedation, changes in respiratory function -Continue BP parameters -APS( Acute Pain services) will continue to follow -please call pain management for any pain-related concerns or questions Goal: Daily pain control to improve function and/or quality of life ([x]) Pain control until condition naturally resolves ([x]) Inpatient pain control ([x]) Improved sleep cycle ([x]) all narcotics medications will be adjusted according to the patient's medical condition during the hospital stay Alll diagnostic images/lab and medical records during the course of this admission as well as [employer]IST records reviewed Risk versus benefit of opiate medications: All risk and benefit were reviewed with the patient and family members, risk not limited to respiratory depression, accidental overdose, risk of fall, altered mental status, constipation, dependency, addiction, withdrawn, sudden . Plan discussed with: The pain plan of care has been discussed with the patient and the nursing staff. Patient is in agreement with the following plan of care and wishes to proceed. Questions and concerns have been answered to the patient' s satisfaction. Patient has verbalized understanding. Plan discussed with: patient 08/07/2023 08/07/2023 3 Hydromorphone 4 Mg Tablet 20.00 5 Ju Kyle [id number] Wal ([id number]) 0 80.00 MMET Comm Ins [place] 02/03/2023 02/03/2023 3 Diazepam 5 Mg Tablet 10.00 2 Pe Patel [id number] Wal ([id number]) 0 2.50 LMET Comm Ins [place] 11/21/2022 11/21/2022 2 Hydrocodone-Acetamin 5-325 Mg 28.00 7 Da Pan [id number] Wal ([id number]) 0 20.00 MM[place] 11/13/2022 11/13/2022 2 Acetaminophen-Cod #3 Tablet 30.00 5 Da Pan [id number] Wal ([id number]) 0 27.00 MM[place] 10/31/2022 10/30/2022 2 Tramadol Hcl 50 Mg Tablet 12.00 3 [facility] [place] [id number] Wal ([id number]) 0 40.00 [place] 10/05/2022 10/04/2022 2 Tramadol Hcl 50 Mg Tablet 20.00 5 [place] [id number] Wal (0157) 0 40.00 [place] 09/27/2022 09/27/2022 2 Acetaminophen-Cod #[address] [place] [id number] Wal ([id number]) 0 33.75 MM[place] 01/01/2022 01/01/2022 1 Hydrocodone-Acetamin 7.5-325 12.00 3 Ri [place] [id number] Wal ([id number]) 0 30.00 MME Comm Ins [place] at 0840 at 1122 RPT #:[id number] END OF REPORT [facility] 2023-12-19 13:05:00 [facility] ([facility]) Pain Management Progress Note REPORT#:[id number] REPORT STATUS: Signed REPORT INITIALIZATION DATE:12/19/23 TIME: 130 PATIENT: TANNER BENDER UNIT #: [id number] ROOM/BED: 5518-1 : 84 AGE: 38 SEX: M ATTEND: Henry Mares MD ADM AUTHOR: Jeannine De Los Santos NP REPT SERVICE DT/TIME: 12/19/23 1305 * ALL edits or amendments must be made on the electronic/computer document * Subjective Chief complaint: Lower Quadrant Pain Interval History 12/19/2023 Patient chart note and event reviewed patient was seen laying in the bed, hemodynamically stable, pain is manageable pain seeking behaviour ERCP tommorrow Denies insomnia Denies constipation sleep is okay Mood is okay HPI: Requesting clinician: Henry Oseguera Reason for consult: Acute complex pain syndrome for evaluation and management The patient is 37-year-old male history of pancreatitis cholecystectomy appendectomy presents with left upper quadrant pain radiates into the back. Review of Systems Additional notes: Review was conducted and was negative except for what's noted in the HPI and Medical History. The following systems were reviewed: Constitutional, cardiovascular, respiratory, gastrointestinal, genitourinary, musculoskeletal, neurologic, psychiatric, endocrinological, and hematologic Objective General VS/I O: Vital Signs Date Temp Pulse Resp B/P B/P Mean Pulse Ox FiO2 12/17-12/18 97.7-98.2 54-76 16 113-132/62-85 79.0-100.8 94-97 Last Documented: Result Date Time Pulse Ox 94 12/18 0342 B/P 113/62 12/18 0342 B/P Mean 79.0 12/18 0342 O2 Delivery Room air 12/18 341 Temp 98.2 12/18 034 Pulse 67 12/18 034 Resp 16 12/18 341 PATIENT WEIGHT: Weight (lb): Weight (oz): Weight (kg): 56.364 Medications: Active Meds + DC'd Last 24 Hrs Hydrocodone Bitart/Acetaminophen (NORCO 5/325) 1 TAB Q6H PRN PRN PO Hydromorphone HCl (DILAUDID) 2 MG Q6H PRN PRN PO Methocarbamol (ROBAXIN) 500 MG Q8H PRN PRN PO Hydromorphone HCl (DILAUDID) 0.5 MG Q4H PRN IV Lorazepam (ATIVAN) 0.5 MG Q6H PRN PRN IV Docusate Sodium (COLACE) 100 MG BID PO Acetaminophen (TYLENOL) 650 MG Q4H PRN PRN PO Hydralazine HCl (APRESOLINE) 10 MG Q6H PRN PRN IV Ondansetron HCl (ZOFRAN) 4 MG Q4H PRN PRN IV Dietitian nutrition assessment The data set between the solid lines has been imported from the dietitian's assessment. BMI Calculated: 16.9 Nutrition related diagnosis: Severe malnutrition Nutrition diagnosis details: Nutrition problem: Severe malnutrition Nutrition etiology: Decreased intake, Nausea/vomiting, Acute illness Nutrition signs and symptoms: 19.4% unintentional wt loss , x 1 month, Eating < 50% estimated needs , for > 5 days Nutrition prescription: 1) Continue regular diet. 2) RD adding Ensure Plus HP TID. Dietitian name: Tanisha Walls, DIET Assessment completed: 12/18/23 Physical Exam General appearance: alert, awake, oriented, no acute distress, pleasant, conversational, mental status normal, no respiratory distress Head/eyes: atraumatic, PERRLA Neck: full range of motion Respiratory: clear to auscultation Abdomen: soft Extremities: moves all Neuro/BOBBIN DISKER: alert Results Findings/data: Laboratory Tests: 12/18 12/18 0641 0441 Chemistry Sodium (134 - 147 mEq/L) 141 Potassium (3.4 - 5.0 mEq/L) 4.1 Chloride (100 - 108 mEq/L) 105 Carbon Dioxide (21 - 33 mEq/l) 29 Anion Gap (0 - 20) 11 BUN (7 - 25 mg/dL) 10 Creatinine (0.6 - 1.3 mg/dL) 1.1 Glomerular Filtr Rate (105 - 110) 88.1 L Glucose (77 - 141 mg/dL) 112 Calcium (8.0 - 10.5 mg/dL) 8.2 Total Bilirubin (0.0 - 1.0 mg/dL) 0.50 AST (8 - 34 IUnit/L) 13 ALT (10 - 49 IUnit/L) 12 Total Alk Phosphatase (20 - 125 IUnit/L) 58 Total Protein (6.4 - 8.2 g/dL) 6.6 Albumin (3.4 - 5.0 g/dL) 3.40 Lipase (13 - 57 U/L) 53 Microbiology: Date/Time Procedure - Status Source Growth 12/17 1934 MRSA DNA Surveillance Screen - COMP NASAL Diagnosis, Assessment Plan Free text A P: Assessment/ Plan Patient assessed. chart reviewed. Will continue on current medical management. Daily Plan 12/19/2023 1. Acute complex pain syndrome 2/2 Pancreatitis - Dilaudid 0.5mg q4hr PRN for pain 7-10 second line - Dilaudid 2mg tab q6hr PRN for pain 7-10 Firstline - Mason 5/325 mg q6hr PRN for pain 4-6 -Tylenol 650mg q4hr PRN for pain 1-3 2. Muscle Spasm Robaxin 500mg 1 tab q8hr PRN 3. Bowel Regimen - by Primary team -start pain regimen as above -Monitor for S/E such as AMS, Lethargy/sedation, changes in respiratory function -Continue BP parameters -[facility]( Acute Pain services) will continue to follow -please call pain management for any pain-related concerns or questions Goal: Daily pain control to improve function and/or quality of life ([x]) Pain control until condition naturally resolves ([x]) Inpatient pain control ([x]) Improved sleep cycle ([x]) all narcotics medications will be adjusted according to the patient's medical condition during the hospital stay Alll diagnostic images/lab and medical records during the course of this admission as well as [employer] records reviewed Risk versus benefit of opiate medications: All risk and benefit were reviewed with the patient and family members, risk not limited to respiratory depression, accidental overdose, risk of fall, altered mental status, constipation, dependency, addiction, withdrawn, sudden . Plan discussed with: The pain plan of care has been discussed with the patient and the nursing staff. Patient is in agreement with the following plan of care and wishes to proceed. Questions and concerns have been answered to the patient' s satisfaction. Patient has verbalized understanding. Plan discussed with: patient 08/07/2023 08/07/2023 3 Hydromorphone 4 Mg Tablet 20.00 5 Ju Kyle [id number] Wal (0157) 0 80.00 MMET Comm Ins [place] 02/03/2023 02/03/2023 3 Diazepam 5 Mg Tablet 10.00 2 Pe Patel [id number] Wal (0157) 0 2.50 LMET [place] 11/21/2022 11/21/2022 2 Hydrocodone-Acetamin 5-325 Mg 28.00 7 Da Pan [id number] Wal (0157) 0 20.00 MM[place] 11/13/2022 11/13/2022 2 Acetaminophen-Cod #3 Tablet 30.00 5 Da Pan [id number] Wal (0157) 0 27.00 MM[place] 10/31/2022 10/30/2022 2 Tramadol Hcl 50 Mg Tablet 12.00 3 [facility] [place] [id number] Wal (0157) 0 40.00 MM[place] 10/05/2022 10/04/2022 2 Tramadol Hcl 50 Mg Tablet 20.00 5 [place] [id number] Wal (0157) 0 40.00 MM[place] 09/27/2022 09/27/2022 2 Acetaminophen-Cod #[address] [place] [id number] Wal (8568) 0 33.75 MMET [place] Ins [place] 01/01/2022 01/01/2022 1 Hydrocodone-Acetamin 7.5-325 12.00 3 Ri [place] [id number] Wal (0157) 0 30.00 MME Comm Ins [place] at 0840 at 1122 RPT #:[id number] END OF REPORT [facility] 2023-12-19 09:12:00 [facility] ([facility]) Hospitalist Progress Note REPORT#:[id number] REPORT STATUS: Signed REPORT INITIALIZATION DATE:12/19/23 TIME: 911 PATIENT: TANNER BENDER UNIT #: [id number] ROOM/BED: [place] [address] : 84 AGE: 37 SEX: M ATTEND: Henry Mares MD ADM AUTHOR: Abiodun Rubio DO REPT SERVICE DT/TIME: 12/19/23911 * ALL edits or amendments must be made on the electronic/computer document * Subjective Chief complaint: Patient is still complaining of abdominal pain, poor oral intake from nausea and vomiting, begging for more IV pain medications Objective General VS/I O: Vital Signs: Date Time Temp Pulse Resp B/P B/P Pulse O2 O2 Flow FiO2 Mean Ox Delivery Rate 12/18 0342 98.2 67 16 113/62 79.0 94 Room air 12/18 0052 98.1 54 16 132/85 100.8 96 Room air 12/17 1929 98.2 76 16 132/72 91.7 97 Room air 12/17 1644 97.7 68 16 121/83 95.3 96 Room air 12/17 1012 98.1 58 16 145/96 111.9 97 Room air PATIENT WEIGHT: Weight (lb): Weight (oz): Weight (kg): 56.364 Medications: Active Meds + DC'd Last 24 Hrs Hydrocodone Bitart/Acetaminophen (NORCO 5/325) 1 TAB Q6H PRN PRN PO Hydromorphone HCl (DILAUDID) 2 MG Q6H PRN PRN PO Methocarbamol (ROBAXIN) 500 MG Q8H PRN PRN PO Hydromorphone HCl (DILAUDID) 0.5 MG Q4H PRN IV Lorazepam (ATIVAN) 0.5 MG Q6H PRN PRN IV Docusate Sodium (COLACE) 100 MG BID PO Morphine Sulfate (morphine SULFATE) 2 MG Q4H PRN PRN IV (DC) Acetaminophen (TYLENOL) 650 MG Q4H PRN PRN PO Hydralazine HCl (APRESOLINE) 10 MG Q6H PRN PRN IV Ondansetron HCl (ZOFRAN) 4 MG Q4H PRN PRN IV Physical Exam General appearance: alert, awake, oriented Head/Eyes: atraumatic, normocephalic, PERRLA Cardiovascular: normal capillary refill, normal heart sounds, regular rate rhythm Respiratory: aerating well, symmetric expansion, no distress Abdomen: tenderness, normal bowel sounds, soft Genitourinary: no flank pain, no urinary catheter Extremities: no calf tenderness, no clubbing, no cyanosis Musculoskeletal: no muscle spasm Neuro/BOBBIN DISKER: alert, oriented X 3, CNII-XII intact Results Findings/Data: Laboratory Tests 12/18 12/18 0638 2789 Chemistry Sodium (134 - 147 mEq/L) 141 Potassium (3.4 - 5.0 mEq/L) 4.1 Chloride (100 - 108 mEq/L) 105 Carbon Dioxide (21 - 33 mEq/l) 29 Anion Gap (0 - 20) 11 BUN (7 - 25 mg/dL) 10 Creatinine (0.6 - 1.3 mg/dL) 1.1 Glomerular Filtr Rate (105 - 110) 88.1 L Glucose (77 - 141 mg/dL) 112 Calcium (8.0 - 10.5 mg/dL) 8.2 Total Bilirubin (0.0 - 1.0 mg/dL) 0.50 AST (8 - 34 IUnit/L) 13 ALT (10 - 49 IUnit/L) 12 Total Alk Phosphatase (20 - 125 IUnit/L) 58 Total Protein (6.4 - 8.2 g/dL) 6.6 Albumin (3.4 - 5.0 g/dL) 3.40 Lipase (13 - 57 U/L) 53 Treatment Prophylaxis Treatment Prophylaxis Oxygen: room air Diagnosis, Assessment Plan Problem List/A P: 1. Intractable abdominal pain 2. Pancreatitis 3. Drug-seeking behavior 4. Chronic pancreatitis Free Text DxA P Notes Free text DxA P notes: 37-year-old presenting with acute on chronic pancreatitis with significant abdominal pain * Appreciated input from GI and pain management * Gentle hydration * Continue on GI soft diet * Patient is being evaluated for possible ERCP scheduled for tomorrow * Pain management * Appreciated morning labs at 0914 RPT #:[id number] END OF REPORT [facility] 2023-12-19 07:45:00 [facility] ([facility]) Gastroenterology Progress Note REPORT#:[id number] REPORT STATUS: Signed REPORT INITIALIZATION DATE:12/19/23 TIME: 07 PATIENT: TANNER BENDER UNIT #: [id number] ROOM/BED: [place] [address] : 84 AGE: 37 SEX: M ATTEND: Henry Mares MD ADM AUTHOR: Maru Morgan MD REPT SERVICE DT/TIME: 12/19/23 0745 * ALL edits or amendments must be made on the electronic/computer document * Subjective Chief complaint: Pancreatic duct stricture HPI: This is a 37-year-old man who came in to see me yesterday at the office complaining of abdominal pain nausea vomiting and bloody diarrhea. He was recently hospitalized at [facility] and was diagnosed with chronic pancreatitis secondary to pancreatic stricture. Patient is a smoker. Does not drink alcohol. Labs reviewed mild anemia. 12/18: feeling better. ERCP tomorrow Objective Physical Exam HEENT: anicteric Cardiovascular: normal heart sounds Respiratory: clear to auscultation Abdomen: non-tender Extremities: no edema Diagnosis, Assessment Plan Problem List/A P: 1. Chronic pancreatitis 2. Intractable vomiting with nausea 3. Colitis Free Text A P: Will plan for ERCP on Friday with possible pancreatic duct stenting. Meantime start regular diet. Monitor H/H Will plan for EGD with ERCP given his black stool Will follow at 0746 RPT #:[id number] END OF REPORT [facility] 2023-12-18 13:01:00 [facility] ([facility]) GE Consultation Note REPORT#:[id number] REPORT STATUS: Signed REPORT INITIALIZATION DATE:12/18/23 TIME: 1301 PATIENT: TANNER BENDER UNIT #: [id number] ROOM/BED: [place] [address] : 84 AGE: 37 SEX: M ATTEND: Henry Mares MD ADM AUTHOR: Maru Morgan MD REPT SERVICE DT/TIME: 12/18/23 1301 * ALL edits or amendments must be made on the electronic/computer document * History of Present Illness Requesting clinician: dr mares Reason for consult: Pancreatic stricture Chief complaint: Pancreatic duct stricture PCP: PCP: Geetha Acosta MD HPI: This is a 37-year-old man who came in to see me yesterday at the office complaining of abdominal pain nausea vomiting and bloody diarrhea. He was recently hospitalized at [facility] and was diagnosed with chronic pancreatitis secondary to pancreatic stricture. Patient is a smoker. Does not drink alcohol. Labs reviewed mild anemia. History - Adult longitudinal Past medical history: Reports: Asthma, Chronic pain, Pancreatitis (Chronic). Additional medical history: Anxiety Past surgical history: Denies: Abdominal surgery. Family history: Denies: CAD < 40 yrs old. Additional family history: n/c Alcohol use: Denies EtOH use Drug use: Denies recreational drugs Smoking status for patients 13 years old or older: Never Smoker Other social history: Primary family support Additional social history: family hx- unknown Allergies: Coded Allergies: Penicillins (Severe, THROAT SWELLS UP 12/17/23) Review of Systems All systems rev neg: except as marked Objective Physical Exam VS/I O: Last Documented: Result Date Time Pulse Ox 97 12/17 1012 B/P 145/96 12/17 1012 B/P Mean 111.9 12/17 1012 O2 Delivery Room air 12/17 1012 Temp 98.1 12/17 1012 Pulse 58 12/17 1012 Resp 16 12/17 1012 24 hour I O ending at 0700: 12/17 0700 12/16 1900 Intake Total Output Total Balance Patient 56.364 kg Weight Weight Stated/Reported Measurement Method PATIENT WEIGHT: Weight (lb): Weight (oz): Weight (kg): 56.364 Medications: Active Meds + DC'd Last 24 Hrs Hydromorphone HCl (DILAUDID) 0.5 MG Q4H PRN IV Lorazepam (ATIVAN) 0.5 MG Q6H PRN PRN IV Docusate Sodium (COLACE) 100 MG BID PO Morphine Sulfate (morphine SULFATE) 2 MG Q4H PRN PRN IV (DC) Iopamidol (ISOVUE-300 100ML) 100 ML .STK-MED ONE IV (DC) Hydromorphone HCl (DILAUDID) 1 MG X1ED STA IV (DC) Acetaminophen (TYLENOL) 650 MG Q4H PRN PRN PO Hydralazine HCl (APRESOLINE) 10 MG Q6H PRN PRN IV Ondansetron HCl (ZOFRAN) 4 MG Q4H PRN PRN IV Ondansetron HCl (ZOFRAN) 4 MG X1ED PRN PRN IV (DC) Famotidine (PEPCID) 20 MG X1ED STA IV (DC) Morphine Sulfate (morphine SULFATE) 4 MG X1ED STA IV (DC) Sodium Chloride (SODIUM CHLORIDE 0.9%) 1,000 ML X1ED STA IV (DC) General appearance: alert, awake, oriented HEENT: anicteric Cardiovascular: normal heart sounds Respiratory: clear to auscultation Abdomen: non-tender Extremities: no edema Diagnosis, Assessment Plan Problem List/A P: 1. Chronic pancreatitis 2. Intractable vomiting with nausea 3. Colitis Free Text DxA P Notes Free Text DxA P Notes: Will plan for ERCP on Friday with possible pancreatic duct stenting. Meantime start regular diet. Will follow at 1303 RPT #:[id number] END OF REPORT [facility] 2023-12-18 12:47:00 [facility] ([facility]) Pain Management Consult Note REPORT#:[id number] REPORT STATUS: Signed REPORT INITIALIZATION DATE:12/18/23 TIME: 1246 PATIENT: TANNER BENDER UNIT #: [id number] ROOM/BED: [place] [address] : 84 AGE: 38 SEX: M ATTEND: Henry Mares MD ADM AUTHOR: Jeannine De Los Santos RUBBER [employer] INSPECTOR TESTER REPT SERVICE DT/TIME: 12/18/23 1247 * ALL edits or amendments must be made on the electronic/computer document * History of Present Illness Requesting clinician: Henry Mares MD Chief complaint: Lower Quadrant Pain HPI: Requesting clinician: Henry Oseguera Reason for consult: Acute complex pain syndrome for evaluation and management The patient is 37-year-old male history of pancreatitis cholecystectomy appendectomy presents with left upper quadrant pain radiates into the back. Pain history: Location: Location: Lower Abd Radiation: back Onset: gradual Duration: weeks Pain severity: 7/10 Nature of pain: Sharp Exacerbated by: movement Relieved by: pain medication Associated conditions:NA Review of Systems Additional notes: Review was conducted and was negative except for what's noted in the HPI and Medical History. The following systems were reviewed: Constitutional, cardiovascular, respiratory, gastrointestinal, genitourinary, musculoskeletal, neurologic, psychiatric, endocrinological, and hematologic History - Adult longitudinal Past medical history: Reports: Asthma, Chronic pain, Pancreatitis (Chronic). Additional medical history: Anxiety Past surgical history: Denies: Abdominal surgery. Family history: Denies: CAD < 40 yrs old. Additional family history: n/c Alcohol use: Denies EtOH use Drug use: Denies recreational drugs Smoking status for patients 13 years old or older: Never Smoker Other social history: Primary family support Additional social history: family hx- unknown Allergies: Coded Allergies: Penicillins (Severe, THROAT SWELLS UP 12/17/23) Objective Physical Exam VS/I O: Last Documented: Result Date Time Pulse Ox 97 12/17 1012 B/P 145/96 12/17 1012 B/P Mean 111.9 12/17 1012 O2 Delivery Room air 12/17 1012 Temp 98.1 12/17 1012 Pulse 58 12/17 1012 Resp 16 12/17 1012 24 hour I O ending at 0700: 12/17 0700 12/16 1900 Intake Total Output Total Balance Patient 56.364 kg Weight Weight Stated/Reported Measurement Method PATIENT WEIGHT: Weight (lb): Weight (oz): Weight (kg): 56.364 General appearance: alert, awake, oriented, no acute distress, pleasant, conversational, mental status normal, no respiratory distress Head/eyes: atraumatic, PERRLA Neck: full range of motion Respiratory: clear to auscultation Abdomen: soft Extremities: moves all Neuro/BOBBIN DISKER: alert Results Findings/data: Laboratory Tests: 12/17 12/16 0342 1400 Chemistry Sodium (134 - 147 mEq/L) 143 137 Potassium (3.4 - 5.0 mEq/L) 3.8 3.8 Chloride (100 - 108 mEq/L) 109 H 105 Carbon Dioxide (21 - 33 mEq/l) 27 25 Anion Gap (0 - 20) 11 11 BUN (7 - 25 mg/dL) 5 L 6 L Creatinine (0.6 - 1.3 mg/dL) 1.0 1.0 Glomerular Filtr Rate (105 - 110) 98.8 L 98.8 L Glucose (77 - 141 mg/dL) 87 133 Calcium (8.0 - 10.5 mg/dL) 8.2 8.6 Magnesium (1.6 - 2.6 mg/dL) 2.09 Total Bilirubin (0.0 - 1.0 mg/dL) 1.10 H 0.40 Direct Bilirubin (0.1 - 0.3 MG/DL) 0.10 Indirect Bilirubin (MG/DL) 0.30 AST (8 - 34 IUnit/L) 18 19 ALT (10 - 49 IUnit/L) 15 13 Total Alk Phosphatase (20 - 125 IUnit/L) 54 59 Total Protein (6.4 - 8.2 g/dL) 6.8 7.4 Albumin (3.4 - 5.0 g/dL) 3.50 4.00 Lipase (13 - 57 U/L) 168 H Hematology WBC (4.5 - 11.0 x10 3/uL) 5.1 8.4 RBC (4.00 - 5.60 x10 6/uL) 3.97 L 4.11 Hgb (12.5 - 16.9 g/dL) 10.9 L 11.2 L Hct (37.5 - 50.7 %) 33.8 L 35.6 L MCV (81.0 - 99.0 fL) 85.1 86.6 MCH (27.0 - 33.0 pg) 27.5 27.3 MCHC (33.0 - 37.0 g/dL) 32.2 L 31.5 L RDW (11.5 - 14.5 %) 15.7 H 15.5 H Plt Count (150 - 400 x10 3/uL) 391 398 MPV (7.0 - 9.0 fL) 9.6 H 9.7 H Neut % (Auto) (56.0 - 77.0 %) 46.0 L 50.5 L Lymph % (Auto) (14.0 - 32.0 %) 38.7 H 39.1 H Randolph % (Auto) (4.8 - 9.0 %) 9.2 H 7.0 Eos % (Auto) (0.3 - 3.7 %) 4.3 H 2.0 Baso % (Auto) (0.0 - 2.0 %) 1.6 1.2 Neut # (Auto) (2.0 - 7.6 x10 3/uL) 2.35 4.25 Lymph # (Auto) (1.0 - 3.8 x10 3/uL) 1.98 3.30 Randolph # (Auto) (0.1 - 0.8 x10 3/uL) 0.47 0.59 Eos # (Auto) (0.0 - 0.2 x10 3/uL) 0.22 H 0.17 Baso # (Auto) (0.0 - 0.2 x10 3/uL) 0.08 0.10 Abs Immat Gran (auto) (0.00 - 0.03 x10 3/uL) 0.01 0.02 Immature Gran % (0.0 - 2.0 %) 0.2 0.2 Nucleated RBC % (0 - 0 %) 0.0 0.0 Nucleated RBCs # (Man) (0.0 - 0.1 x10 3/uL) 0.00 0.00 Urines Urine Color (YEL/STRAW) STRAW Urine Appearance (CLEAR) CLEAR Urine pH (5.0 - 7.0) 6.0 Ur Specific Charlotte (1.005 - 1.030) 1.006 Urine Protein (NEGATIVE) NEGATIVE Urine Glucose (UA) (NEGATIVE) NEGATIVE Urine Ketones (NEGATIVE) NEGATIVE Urine Blood (NEGATIVE) NEGATIVE Urine Nitrite (NEGATIVE) NEGATIVE Urine Bilirubin (NEGATIVE) NEGATIVE Urine Urobilinogen (0.2 - 1.0 mg/dL) 0.2 Ur Leukocyte Esterase (NEGATIVE) NEGATIVE Urine RBC (0 - 3 RBC/HPF) 0-3 Urine WBC (0 - 3 WBC/HPF) 0-3 Ur Squamous Epith Cells (NONE SEEN /HPF) NONE SEEN Urine Bacteria (NONE SEEN /HPF) NONE SEEN Urine Mucus (NONE SEEN /LPF) TRACE Recent Impressions: RADIOLOGY - XR CHEST 1 V 12/16 1357 Report Impression - Status: SIGNED Entered: 12/17/2023 1421 IMPRESSION: No acute abnormality Impression By: Tanya Villagomez M.D. ULTRASOUND - US ABDOMEN LTD 12/16 1428 Report Impression - Status: SIGNED Entered: 12/17/2023 1439 IMPRESSION: Hepatomegaly with hepatic steatosis. Prior cholecystectomy. Normal hepatopedal flow in the portal vein. Impression By: Tanya Villagomez M.D. CAT SCAN - CT ABD PELVIS W/CONT 12/16 1517 Report Impression - Status: SIGNED Entered: 12/17/2023 1553 IMPRESSION: No acute abdominopelvic process. Patient has undergone cholecystectomy. Appendix also not seen, correlate with history of appendectomy. Impression By: [email or web address] - Lawrence Noonan M.D. Diagnosis, Assessment Plan Free text A P: Assessment/ Plan Patient assessed. chart reviewed. Will treat pain with PO and IV short acting opioids PRN pain medication and robaxin for muscle spasm. 1. Acute complex pain syndrome 2/2 Pancreatitis - Dilaudid 1mg q4hr PRN for pain 7-10 second line - Dilaudid 2mg tab q6hr PRN for pain 7-10 Firstline - Mason 5/325 mg q6hr PRN for pain 4-6 -Tylenol 650mg q4hr PRN for pain 1-3 2. Muscle Spasm Robaxin 500mg 1 tab q8hr PRN 3. Bowel Regimen - by Primary team -start pain regimen as above -Monitor for S/E such as AMS, Lethargy/sedation, changes in respiratory function -Continue BP parameters -APS( Acute Pain services) will continue to follow -please call pain management for any pain-related concerns or questions Goal: Daily pain control to improve function and/or quality of life ([x]) Pain control until condition naturally resolves ([x]) Inpatient pain control ([x]) Improved sleep cycle ([x]) all narcotics medications will be adjusted according to the patient's medical condition during the hospital stay Alll diagnostic images/lab and medical records during the course of this admission as well as [employer] records reviewed Risk versus benefit of opiate medications: All risk and benefit were reviewed with the patient and family members, risk not limited to respiratory depression, accidental overdose, risk of fall, altered mental status, constipation, dependency, addiction, withdrawn, sudden . Plan discussed with: The pain plan of care has been discussed with the patient and the nursing staff. Patient is in agreement with the following plan of care and wishes to proceed. Questions and concerns have been answered to the patient' s satisfaction. Patient has verbalized understanding. Plan discussed with: patient 08/07/2023 08/07/2023 3 Hydromorphone 4 Mg Tablet 20.00 5 Ju Kyle [id number] Wal ([id number]) 0 80.00 MMET Comm Ins [place] 02/03/2023 02/03/2023 3 Diazepam 5 Mg Tablet 10.00 2 Pe Patel [id number] Wal ([id number]) 0 2.50 LMET Comm Ins [place] 11/21/2022 11/21/2022 2 Hydrocodone-Acetamin 5-325 Mg 28.00 7 Da Pan [id number] Wal ([id number]) 0 20.00 MM[place] 11/13/2022 11/13/2022 2 Acetaminophen-Cod #3 Tablet 30.00 5 Da Pan [id number] Wal ([id number]) 0 27.00 MM[place] Ins [place] 10/31/2022 10/30/2022 2 Tramadol Hcl 50 Mg Tablet 12.00 3 [facility] [place] [facility] [id number] Wal ([id number]) 0 40.00 [place] 10/05/2022 10/04/2022 2 Tramadol Hcl 50 Mg Tablet 20.00 5 [place] [id number] Wal ([id number]) 0 40.00 [place] 09/27/2022 09/27/2022 2 Acetaminophen-Cod #[address] [place] [id number] Wal ([id number]) 0 33.75 MM[place] 01/01/2022 01/01/2022 1 Hydrocodone-Acetamin 7.5-325 12.00 3 Ri Andrew [id number] Wal ([id number]) 0 30.00 MME Comm Ins [place] at 0840 at 1120 RPT #:[id number] END OF REPORT [facility] 2023-12-18 10:16:00 [facility] ([facility]) Hospitalist Progress Note REPORT#:[id number] REPORT STATUS: Signed REPORT INITIALIZATION DATE:12/18/23 TIME: 1015 PATIENT: TANNER BENDER UNIT #: [id number] ROOM/BED: 5518-1 : 84 AGE: 37 SEX: M ATTEND: Henry Mares MD ADM AUTHOR: Abiodun Rubio DO REPT SERVICE DT/TIME: 12/18/23 1016 * ALL edits or amendments must be made on the electronic/computer document * Subjective Chief complaint: Patient is complaining of severe abdominal pain with poor oral intake, begging for Dilaudid Objective General VS/I O: Vital Signs: Date Time Temp Pulse Resp B/P B/P Pulse O2 O2 Flow FiO2 Mean Ox Delivery Rate 12/17 1012 98.1 58 16 145/96 111.9 97 Room air 12/17 0646 97.7 50 16 117/73 87.3 95 Room air 12/17 0332 54 106/73 83.8 97 / 0316 97.9 50 16 111/72 85.1 96 Room air 12/16 2336 97.7 54 16 124/75 91.3 96 Room air 12/16 2042 97.7 52 18 167/105 126.0 100 Room air 12/16 1949 97.3 54 18 153/96 115.1 100 Room air 12/16 1600 127/80 99 98 /04 1530 134/88 107 99 /04 1510 57 09/04 1500 167/98 127 98 /04 1430 61 134/79 100 98 12/16 1350 97.8 66 20 171/94 119 100 Room air 24 hour I O ending at 0700: 12/17 0700 12/16 1900 Intake Total Output Total Balance Patient 56.364 kg Weight Weight Stated/Reported Measurement Method PATIENT WEIGHT: Weight (lb): Weight (oz): Weight (kg): 56.364 Medications: Active Meds + DC'd Last 24 Hrs Hydromorphone HCl (DILAUDID) 0.5 MG Q4H PRN IV Lorazepam (ATIVAN) 0.5 MG Q6H PRN PRN IV Docusate Sodium (COLACE) 100 MG BID PO Morphine Sulfate (morphine SULFATE) 2 MG Q4H PRN PRN IV (DC) Iopamidol (ISOVUE-300 100ML) 100 ML .STK-MED ONE IV (DC) Hydromorphone HCl (DILAUDID) 1 MG X1ED STA IV (DC) Acetaminophen (TYLENOL) 650 MG Q4H PRN PRN PO Hydralazine HCl (APRESOLINE) 10 MG Q6H PRN PRN IV Ondansetron HCl (ZOFRAN) 4 MG Q4H PRN PRN IV Ondansetron HCl (ZOFRAN) 4 MG X1ED PRN PRN IV (DC) Famotidine (PEPCID) 20 MG X1ED STA IV (DC) Morphine Sulfate (morphine SULFATE) 4 MG X1ED STA IV (DC) Sodium Chloride (SODIUM CHLORIDE 0.9%) 1,000 ML X1ED STA IV (DC) Physical Exam General appearance: alert, awake, oriented Head/Eyes: atraumatic, normocephalic, PERRLA Cardiovascular: normal capillary refill, normal heart sounds, regular rate rhythm Respiratory: aerating well, symmetric expansion, no distress Abdomen: non-tender, normal bowel sounds, soft Genitourinary: no flank pain, no urinary catheter Extremities: no calf tenderness, no clubbing, no cyanosis Musculoskeletal: no muscle spasm Neuro/BOBBIN DISKER: alert, oriented X 3, CNII-XII intact Results Findings/Data: Laboratory Tests 12/17 12/16 0342 1400 Chemistry Sodium (134 - 147 mEq/L) 143 137 Potassium (3.4 - 5.0 mEq/L) 3.8 3.8 Chloride (100 - 108 mEq/L) 109 H 105 Carbon Dioxide (21 - 33 mEq/l) 27 25 Anion Gap (0 - 20) 11 11 BUN (7 - 25 mg/dL) 5 L 6 L Creatinine (0.6 - 1.3 mg/dL) 1.0 1.0 Glomerular Filtr Rate (105 - 110) 98.8 L 98.8 L Glucose (77 - 141 mg/dL) 87 133 Calcium (8.0 - 10.5 mg/dL) 8.2 8.6 Magnesium (1.6 - 2.6 mg/dL) 2.09 Total Bilirubin (0.0 - 1.0 mg/dL) 1.10 H 0.40 Direct Bilirubin (0.1 - 0.3 MG/DL) 0.10 Indirect Bilirubin (MG/DL) 0.30 AST (8 - 34 IUnit/L) 18 19 ALT (10 - 49 IUnit/L) 15 13 Total Alk Phosphatase (20 - 125 IUnit/L) 54 59 Total Protein (6.4 - 8.2 g/dL) 6.8 7.4 Albumin (3.4 - 5.0 g/dL) 3.50 4.00 Lipase (13 - 57 U/L) 168 H Laboratory Tests 12/17 12/16 0342 1400 Hematology WBC (4.5 - 11.0 x10 3/uL) 5.1 8.4 RBC (4.00 - 5.60 x10 6/uL) 3.97 L 4.11 Hgb (12.5 - 16.9 g/dL) 10.9 L 11.2 L Hct (37.5 - 50.7 %) 33.8 L 35.6 L MCV (81.0 - 99.0 fL) 85.1 86.6 MCH (27.0 - 33.0 pg) 27.5 27.3 MCHC (33.0 - 37.0 g/dL) 32.2 L 31.5 L RDW (11.5 - 14.5 %) 15.7 H 15.5 H Plt Count (150 - 400 x10 3/uL) 391 398 MPV (7.0 - 9.0 fL) 9.6 H 9.7 H Neut % (Auto) (56.0 - 77.0 %) 46.0 L 50.5 L Lymph % (Auto) (14.0 - 32.0 %) 38.7 H 39.1 H Randolph % (Auto) (4.8 - 9.0 %) 9.2 H 7.0 Eos % (Auto) (0.3 - 3.7 %) 4.3 H 2.0 Baso % (Auto) (0.0 - 2.0 %) 1.6 1.2 Neut # (Auto) (2.0 - 7.6 x10 3/uL) 2.35 4.25 Lymph # (Auto) (1.0 - 3.8 x10 3/uL) 1.98 3.30 Randolph # (Auto) (0.1 - 0.8 x10 3/uL) 0.47 0.59 Eos # (Auto) (0.0 - 0.2 x10 3/uL) 0.22 H 0.17 Baso # (Auto) (0.0 - 0.2 x10 3/uL) 0.08 0.10 Abs Immat Gran (auto) (0.00 - 0.03 x10 3/uL) 0.01 0.02 Immature Gran % (0.0 - 2.0 %) 0.2 0.2 Nucleated RBC % (0 - 0 %) 0.0 0.0 Nucleated RBCs # (Man) (0.0 - 0.1 x10 3/uL) 0.00 0.00 Laboratory Tests 12/16 1400 Urines Urine Color (YEL/STRAW) STRAW Urine Appearance (CLEAR) CLEAR Urine pH (5.0 - 7.0) 6.0 Ur Specific [place] (1.005 - 1.030) 1.006 Urine Protein (NEGATIVE) NEGATIVE Urine Glucose (UA) (NEGATIVE) NEGATIVE Urine Ketones (NEGATIVE) NEGATIVE Urine Blood (NEGATIVE) NEGATIVE Urine Nitrite (NEGATIVE) NEGATIVE Urine Bilirubin (NEGATIVE) NEGATIVE Urine Urobilinogen (0.2 - 1.0 mg/dL) 0.2 Ur Leukocyte Esterase (NEGATIVE) NEGATIVE Urine RBC (0 - 3 RBC/HPF) 0-3 Urine WBC (0 - 3 WBC/HPF) 0-3 Ur Squamous Epith Cells (NONE SEEN /HPF) NONE SEEN Urine Bacteria (NONE SEEN /HPF) NONE SEEN Urine Mucus (NONE SEEN /LPF) TRACE Diagnosis, Assessment Plan Problem List/A P: 1. Intractable abdominal pain 2. Pancreatitis 3. Drug-seeking behavior 4. Chronic pancreatitis Free Text DxA P Notes Free text DxA P notes: 37-year-old presenting with acute on chronic pancreatitis with significant abdominal pain * Follow-up with GI consult * Gentle hydration * Keep n.p.o. * Patient is being evaluated for possible ERCP * Pain management * Follow-up with morning labs at 1018 RPT #:[id number] END OF REPORT [facility] 2023-12-17 14:27:00 [facility] ([facility]) Hospitalist History Physical REPORT#:[id number] REPORT STATUS: Signed REPORT INITIALIZATION DATE:12/17/23 TIME: 1426 PATIENT: TANNER BENDER UNIT #: [id number] ROOM/BED: [place] [id number] : 84 AGE: 38 SEX: M ATTEND: Henry Mares MD ADM AUTHOR: Toro Quevedo NP REPT SERVICE DT/TIME: 12/17/23 1427 * ALL edits or amendments must be made on the electronic/computer document * History of Present Illness HPI Chief complaint: abd pain PCP: PCP: Geetha Acosta MD HPI: 37-year-old male history of pancreatitis, Asthma, Anxiety, cholecystectomy appendectomy presents with left upper quadrant pain over the last 1-1/2 weeks radiates into the back accompanied by nausea vomiting chills, has been running fever up to 101.2 the last 3 days. No current antibiotics. States 2 to 3 weeks ago he was on oral vancomycin for C. difficile but did not complete because he was unable to keep antibiotics down due to vomiting. He was seen by GI physician this a.m. requested admission for ERCP and colonoscopy. History Past medical history: Reports: Asthma, Chronic pain, Pancreatitis (Chronic). Additional medical history: Anxiety Past surgical history: Denies: Abdominal surgery. Family history: Denies: CAD < 40 yrs old. Additional family history: n/c Alcohol use: Denies EtOH use Drug use: Denies recreational drugs Smoking status for patients 13 years old or older: Never Smoker Other social history: Primary family support Additional social history: family hx- unknown Medication/Allergy-Vaccine Hx Medications: Home Medications: Medication Dose/Rte/Freq Days Qty Entered Last Max Daily Dose Reviewed ALPRAZolam (XANAX) 2 MG PO 07/13/22 Strength: 2 MG TAB TID PRN ANXIETY 2307 HYDROmorphone (DILAUDID) 2 MG PO 11/11/22 Strength: 2 MG TAB Q4H PRN PRN PAIN 1341 SCALE 7-10 AMYLASE/LIPASE/PROTEA 24,000 UNITS PO 02/02/23 120,000/24,000/76,000 U TID MEALS 1915 (CREON 24) Strength: 24-76-120K CAP METHOCARBAMOL 750 MG PO Q4H 12/01/23 (ROBAXIN) 2322 Strength: [address] 40 MG PO DAILY 12/01/23 (PROTONIX) 2322 Strength: 40 MG TAB. ALBUTEROL 2 PUFF INH RTQ6H 11/11/22 (PROAIR DIGIHALER 90 1017 MCG/ACT 0.65 GM) Strength: 90 MCG INHALER DICYCLOMINE (BENTYL) 20 MG PO QID 30 09/03/23 Strength: 20 MG TAB 0108 Current Hospital Medications: Central Nervous System Agents Sig/José Miguel Start time Last Medication Dose Route Stop Time Status Admin Morphine Sulfate 4 MG X1ED STA 12/16 1353 DC 12/16 (morphine SULFATE) IV 12/16 1354 1414 Electrolytic, Caloric, And Sneha Sig/José Miguel Start time Last Medication Dose Route Stop Time Status Admin Sodium Chloride 1,000 ML X1ED STA 12/16 1353 AC 12/16 (SODIUM CHLORIDE IV 12/16 1452 1415 0.9%) Gastrointestinal Drugs Sig/José Miguel Start time Last Medication Dose Route Stop Time Status Admin Ondansetron HCl 4 MG X1ED PRN PRN 12/16 1400 DC 12/16 (ZOFRAN) IV 12/17 1359 1414 Famotidine 20 MG X1ED STA 12/16 1353 DC 12/16 (PEPCID) IV 12/16 1354 1414 Allergies: Coded Allergies: Penicillins (Severe, THROAT SWELLS UP 12/17/23) Review of Systems Constitutional: fatigue, generalized weakness. Allergy/Immun: Denies: anaphylaxis, hives, itching, sneezing. ENT: Denies: ear ringing, hearing loss, nasal congestion, sinus problem, throat pain, throat swelling. Respiratory: Denies: PEREZ (dyspnea on exertion), hemoptysis, pleurisy, pleuritic pain, pneumonia, SOB. Cardiovascular: Denies: chest pain, PEREZ (dyspnea on exertion), edema, orthopnea, palpitations. GI: Reports: abdominal pain, nausea. Denies: constipation, diarrhea, GERD, melena. : Denies: flank pain, penile discharge, penile lesion, testicular pain, testicular swelling. Musculoskeletal: Denies: extremity pain, joint pain, joint swelling, lumbar pain, neck pain. Endocrine: Denies: heat intolerance, polydipsia, polyphagia, weight gain, weight loss. Neuro: Denies: change in LOC, focal weakness, headache, numbness, slurred speech. Psych: Denies: anxiety, delusional, homicidal ideation, hostile. Objective General VS/I O: Vital Signs: Date Time Temp Pulse Resp B/P B/P Pulse O2 O2 Flow FiO2 Mean Ox Delivery Rate 12/16 1350 36.6 66 20 171/94 119 100 Room air PATIENT WEIGHT: Weight (lb): Weight (oz): Weight (kg): 56.364 Medications: Active Meds + DC'd Last 24 Hrs Ondansetron HCl (ZOFRAN) 4 MG X1ED PRN PRN IV (DC) Famotidine (PEPCID) 20 MG X1ED STA IV (DC) Morphine Sulfate (morphine SULFATE) 4 MG X1ED STA IV (DC) Sodium Chloride (SODIUM CHLORIDE 0.9%) 1,000 ML X1ED STA IV Physical Exam General appearance: alert, awake, oriented Head/Eyes: atraumatic, normocephalic, PERRLA Cardiovascular: normal capillary refill, normal heart sounds, regular rate rhythm Respiratory: aerating well, symmetric expansion, no distress Abdomen: non-tender, normal bowel sounds, soft Genitourinary: no flank pain, no urinary catheter Extremities: no calf tenderness, no clubbing, no cyanosis Musculoskeletal: no muscle spasm Neuro/BOBBIN DISKER: alert, oriented X 3, CNII-XII intact Results Findings/Data: Laboratory Tests 12/16 1400 Hematology WBC (4.5 - 11.0 x10 3/uL) 8.4 RBC (4.00 - 5.60 x10 6/uL) 4.11 Hgb (12.5 - 16.9 g/dL) 11.2 L Hct (37.5 - 50.7 %) 35.6 L MCV (81.0 - 99.0 fL) 86.6 MCH (27.0 - 33.0 pg) 27.3 MCHC (33.0 - 37.0 g/dL) 31.5 L RDW (11.5 - 14.5 %) 15.5 H Plt Count (150 - 400 x10 3/uL) 398 MPV (7.0 - 9.0 fL) 9.7 H Neut % (Auto) (56.0 - 77.0 %) 50.5 L Lymph % (Auto) (14.0 - 32.0 %) 39.1 H Randolph % (Auto) (4.8 - 9.0 %) 7.0 Eos % (Auto) (0.3 - 3.7 %) 2.0 Baso % (Auto) (0.0 - 2.0 %) 1.2 Neut # (Auto) (2.0 - 7.6 x10 3/uL) 4.25 Lymph # (Auto) (1.0 - 3.8 x10 3/uL) 3.30 Randolph # (Auto) (0.1 - 0.8 x10 3/uL) 0.59 Eos # (Auto) (0.0 - 0.2 x10 3/uL) 0.17 Baso # (Auto) (0.0 - 0.2 x10 3/uL) 0.10 Abs Immat Gran (auto) (0.00 - 0.03 x10 3/uL) 0.02 Immature Gran % (0.0 - 2.0 %) 0.2 Nucleated RBC % (0 - 0 %) 0.0 Nucleated RBCs # (Man) (0.0 - 0.1 x10 3/uL) 0.00 Radiology data: Recent Impressions: RADIOLOGY - XR CHEST 1 V 12/16 1357 Report Impression - Status: SIGNED Entered: 12/17/2023 1421 IMPRESSION: No acute abnormality Impression By: Tanya - Tha Villagomez M.D. Results: labs reviewed, vital signs reviewed, vital signs stable, current med profile rev'd Treatment Prophylaxis Treatment Prophylaxis Oxygen: room air Diagnosis, Assessment Plan Plan discussed with: patient, admitting physician, consultants, nurse Code Status/Resusc. Discussion Code status: full code Free Text DxA P Notes Free Text DxA P Notes: Assessment and Plan: LUQ pain could be pancreatitis. Hepatomegaly with hepatic steatosis. HX of pancreatitis. HX of Asthma, Anxiety, cholecystectomy Plan: Floor. GI for abd pain and pancreatitis. Pain meds. Antiemetics. CT abodmen and pelvis unremarkable. Follow labs and replace as needed. Continue Home meds. Monitor. at 0657 at 0843 RPT #:[id number] END OF REPORT [facility] 2023-12-17 13:55:00 [facility] ([facility]) EMERGENCY PROVIDER REPORT REPORT#:[id number] REPORT STATUS: Signed DATE:12/17/23 TIME: 135 PATIENT: TANNER BENDER UNIT #: [id number] ROOM/BED: [place] [address] : 84 AGE: 37 SEX:M PCP PHYS: Geetha Acosta MD SERVICE AUTHOR: Yeimy Dave APRNNP REP SRV REP SRV TM: 1355 * ALL edits or amendments must be made on the electronic/computer document * Yeimy Dave 12/17/23 1355: HPI-Abd Pain M Under 40 Free Text HPI Notes Free Text HPI Notes 37-year-old male history of pancreatitis cholecystectomy appendectomy presents with left upper quadrant pain over the last 1-1/2 weeks radiates into the back accompanied by nausea vomiting chills, has been running fever up to 101.2 the last 3 days. No current antibiotics. States 2 to 3 weeks ago he was on oral vancomycin for C. difficile but did not complete because he was unable to keep antibiotics down due to vomiting. Saw GI physician this a.m. requested admission for ERCP and colonoscopy GI: Dr. Desmond Gan General Initial Greet Date/Time 12/17/23 1346 Presentation Chief Complaint Abdominal pain Sudden in Onset? No Risk-Abd Pain M Under 40 )( Torsion Risk factors N/A Review of Systems Free Text ROS Notes Free Text ROS Notes see HPI Past Medical History - Adult Stated Complaint ADMIT FOR ERCP COLONOSCOPY, ABD PAIN Allergies Coded Allergies: Penicillins (Severe, THROAT SWELLS UP 12/17/23) Home Medications Active Scripts DICYCLOMINE (BENTYL) 20 MG PO QID DICYCLOMINE (BENTYL) 20 MG PO QID #30 TABS Prov: 09/03/23 Reported Medications ALPRAZolam (XANAX) 2 MG PO TID PRN ANXIETY HYDROmorphone (DILAUDID) 2 MG PO Q4H PRN PRN PAIN SCALE 7-10 AMYLASE/LIPASE/PROTEA 120,000/24,000/76,000 U (CREON 24) 24,000 UNITS PO TID MEALS METHOCARBAMOL (ROBAXIN) 750 MG PO Q4H PANTOPRAZOLE DR (PROTONIX) 40 MG PO DAILY ALBUTEROL (PROAIR DIGIHALER 90 MCG/ACT 0.65 GM) 2 PUFF INH RTQ6H Physical Exam Vital Signs Vital Signs First Documented: Result Date Time Pulse Ox 100 12/16 1350 B/P 171/94 12/16 1350 B/P Mean 119 12/16 1350 O2 Delivery Room air 12/16 1350 Temp 36.6 12/16 1350 Pulse 66 12/16 1350 Resp 20 12/16 1350 Last Documented: Result Date Time Pulse Ox 98 09 1430 B/P 134/79 09/ 1430 B/P Mean 100 12/16 1430 Pulse 61 / 1430 O2 Delivery Room air 12/16 1350 Temp 36.6 12/16 1350 Resp 20 12/16 1350 Review of Vital Signs Reviewed, Vital signs normal Focused PE General/Const General/Const Awake, Alert, Well appearing, Well developed, Well hydrated, Well nourished, Cooperative, Not toxic appearing Text/Dict Notes Appears uncomfortable due to abdominal pain. Resp/Chest Respiratory/Chest Breath sounds NL, Breath sounds = bilat, No respiratory distress Cardiovascular Cardiovascular Heart sounds NL, No murmurs Abdomen/GI Abdomen/GI Soft, No rebound, No distention Text/Dict Notes Distention but patient has mild guarding and epigastric left upper quadrant tenderness MS Back Back No CVA tenderness Interpretation Diagnostics Lab Results Interpretation Results Laboratory Tests 12/17/23 1400: [Embedded Image Not Available] Laboratory Tests: 12/16 1400 Chemistry Sodium (134 - 147 mEq/L) 137 Potassium (3.4 - 5.0 mEq/L) 3.8 Chloride (100 - 108 mEq/L) 105 Carbon Dioxide (21 - 33 mEq/l) 25 Anion Gap (0 - 20) 11 BUN (7 - 25 mg/dL) 6 L Creatinine (0.6 - 1.3 mg/dL) 1.0 Glomerular Filtr Rate (105 - 110) 98.8 L Glucose (77 - 141 mg/dL) 133 Calcium (8.0 - 10.5 mg/dL) 8.6 Total Bilirubin (0.0 - 1.0 mg/dL) 0.40 Direct Bilirubin (0.1 - 0.3 MG/DL) 0.10 Indirect Bilirubin (MG/DL) 0.30 AST (8 - 34 IUnit/L) 19 ALT (10 - 49 IUnit/L) 13 Total Alk Phosphatase (20 - 125 IUnit/L) 59 Total Protein (6.4 - 8.2 g/dL) 7.4 Albumin (3.4 - 5.0 g/dL) 4.00 Lipase (13 - 57 U/L) 168 H Hematology WBC (4.5 - 11.0 x10 3/uL) 8.4 RBC (4.00 - 5.60 x10 6/uL) 4.11 Hgb (12.5 - 16.9 g/dL) 11.2 L Hct (37.5 - 50.7 %) 35.6 L MCV (81.0 - 99.0 fL) 86.6 MCH (27.0 - 33.0 pg) 27.3 MCHC (33.0 - 37.0 g/dL) 31.5 L RDW (11.5 - 14.5 %) 15.5 H Plt Count (150 - 400 x10 3/uL) 398 MPV (7.0 - 9.0 fL) 9.7 H Neut % (Auto) (56.0 - 77.0 %) 50.5 L Lymph % (Auto) (14.0 - 32.0 %) 39.1 H Randolph % (Auto) (4.8 - 9.0 %) 7.0 Eos % (Auto) (0.3 - 3.7 %) 2.0 Baso % (Auto) (0.0 - 2.0 %) 1.2 Neut # (Auto) (2.0 - 7.6 x10 3/uL) 4.25 Lymph # (Auto) (1.0 - 3.8 x10 3/uL) 3.30 Randolph # (Auto) (0.1 - 0.8 x10 3/uL) 0.59 Eos # (Auto) (0.0 - 0.2 x10 3/uL) 0.17 Baso # (Auto) (0.0 - 0.2 x10 3/uL) 0.10 Abs Immat Gran (auto) (0.00 - 0.03 x10 3/uL) 0.02 Immature Gran % (0.0 - 2.0 %) 0.2 Nucleated RBC % (0 - 0 %) 0.0 Nucleated RBCs # (Man) (0.0 - 0.1 x10 3/uL) 0.00 Urines Urine Color (YEL/STRAW) STRAW Urine Appearance (CLEAR) CLEAR Urine pH (5.0 - 7.0) 6.0 Ur Specific [place] (1.005 - 1.030) 1.006 Urine Protein (NEGATIVE) NEGATIVE Urine Glucose (UA) (NEGATIVE) NEGATIVE Urine Ketones (NEGATIVE) NEGATIVE Urine Blood (NEGATIVE) NEGATIVE Urine Nitrite (NEGATIVE) NEGATIVE Urine Bilirubin (NEGATIVE) NEGATIVE Urine Urobilinogen (0.2 - 1.0 mg/dL) 0.2 Ur Leukocyte Esterase (NEGATIVE) NEGATIVE Urine RBC (0 - 3 RBC/HPF) 0-3 Urine WBC (0 - 3 WBC/HPF) 0-3 Ur Squamous Epith Cells (NONE SEEN /HPF) NONE SEEN Urine Bacteria (NONE SEEN /HPF) NONE SEEN Urine Mucus (NONE SEEN /LPF) TRACE Recent Impressions: RADIOLOGY - XR CHEST 1 V 12/16 1357 Report Impression - Status: SIGNED Entered: 12/17/2023 1421 IMPRESSION: No acute abnormality Impression By: Tanya Villagomez M.D. ULTRASOUND - US ABDOMEN LTD 12/16 1428 Report Impression - Status: SIGNED Entered: 12/17/2023 1439 IMPRESSION: Hepatomegaly with hepatic steatosis. Prior cholecystectomy. Normal hepatopedal flow in the portal vein. Impression By: Tanya Villagomez M.D. CAT SCAN - CT ABD PELVIS W/CONT 12/16 1517 Report Impression - Status: SIGNED Entered: 12/17/2023 1553 IMPRESSION: No acute abdominopelvic process. Patient has undergone cholecystectomy. Appendix also not seen, correlate with history of appendectomy. Impression By: [email or web address] Maria Del Carmen Noonan M.D. Re-Evaluation MDM Free Text MDM Notes Free Text MDM Notes DDx: Pancreatitis abscess stenosis retained stone 37-year-old male history of pancreatitis sent from GI office for admission for ERCP and colonoscopy Patient overall looks uncomfortable, no SIRS criteria, is not septic No white count H H 11.2/35.6 No transaminitis or elevated bilirubin Lipase 168 CT abdomen pelvis no acute abdominal process. Ultrasound shows hepatomegaly with hepatic steatosis. Prior cholecystectomy. Normal hepatopetal flow in the portal vein. Admit to medicine, Dr. Mares as requested per GI )( Re-Evaluation/Progress #1 Time of Re-Eval 161 )( Re-Eval Status Improved ED Course Medication(s) Ordered Medication(s) Ordered: Cardiovascular Drugs Sig/José Miguel Start time Last Medication Dose Route Stop Time Status Admin Hydralazine HCl 10 MG Q6H PRN PRN 12/16 1430 AC IV 03/16 1429 Central Nervous System Agents Sig/José Miguel Start time Last Medication Dose Route Stop Time Status Admin Hydromorphone HCl 1 MG X1ED STA 12/16 1432 DC 12/16 IV 12/16 1433 1443 Acetaminophen 650 MG Q4H PRN PRN 12/16 1430 AC PO 03/16 1429 Morphine Sulfate 4 MG X1ED STA 12/16 1353 DC 12/16 IV 12/16 1354 1414 Diagnostic Agents Sig/José Miguel Start time Last Medication Dose Route Stop Time Status Admin Iopamidol 100 ML .STK-MED ONE 12/16 1525 DC 12/16 IV 12/16 1526 1525 Electrolytic, Caloric, And Sneha Sig/José Miguel Start time Last Medication Dose Route Stop Time Status Admin Sodium Chloride 1,000 ML X1ED STA 12/16 1353 DC 12/16 IV 12/16 1452 1415 Gastrointestinal Drugs Sig/José Miguel Start time Last Medication Dose Route Stop Time Status Admin Docusate Sodium 100 MG BID 12/16 2100 AC PO 03/16 2059 Ondansetron HCl 4 MG Q4H PRN PRN 12/16 1430 AC 12/16 IV 03/16 1429 1443 Ondansetron HCl 4 MG X1ED PRN PRN / 1400 DC 12/16 IV 12/17 1359 1414 Famotidine 20 MG X1ED STA 12/16 1353 DC 12/16 IV 12/16 1354 1414 Patient Discharge Departure Vital Signs/Condition Vital Signs First Documented: Result Date Time Pulse Ox 100 12/16 1350 B/P 171/94 12/16 1350 B/P Mean 119 12/16 1350 O2 Delivery Room air 12/16 1350 Temp 36.6 12/16 1350 Pulse 66 12/16 1350 Resp 20 12/16 1350 Last Documented: Result Date Time Pulse Ox 98 12/16 1430 B/P 134/79 12/16 1430 B/P Mean 100 12/16 1430 Pulse 61 12/16 1430 O2 Delivery Room air 12/16 1350 Temp 36.6 12/16 1350 Resp 20 12/16 1350 All vital signs available at the time of this entry have been reviewed. Condition Stable Clinical Impression Clinical Impression Primary Impression: LUQ pain Time of Impression 1616 Disposition Decision Hospitalize Hosp Physician Name Henry Mares MD Hosp Physician Hospitalist Request Time 1616 Request Date 12/17/23 )( Accepts Hospitalization Yes )( Reason for Hospitalization luq pain )( Accepted Time 161 )( Accepted Date 12/17/23 Call Information will see patient Lelo Brand 12/17/23 1722: Patient Discharge Departure Supervising Physician Note MidLv Saw Pt Alone I have reviewed the PA/RUBBER GOODS INSPECTOR TESTER's note and plan of care. I was available for consultation as needed at all times during the patient's visit in the emergency department. I agree with the clinical impression, plan and disposition. at 1618 at 1723 RPT #:[id number] END OF REPORT [facility] 2023-12-09 15:34:00 [facility] ([facility] EMERGENCY PROVIDER REPORT REPORT#:[id number] REPORT STATUS: Signed DATE:12/09/23 TIME: 1534 PATIENT: TANNER BENDER UNIT #: [id number] ROOM/BED: AGE: 37 SEX: M PCP PHYS: No Primary or Family Physician SERVICE AUTHOR: Thor Brown MD * ALL edits or amendments must be made on the electronic/computer document * HPI-General Illness Free Text HPI Notes Free Text HPI Notes 37-year-old male with past medical history of chronic pancreatitis and asthma presenting for several days of acute on chronic abdominal pain with associated nausea vomiting, notes his home medications are not helping and that he had spoken to his primary care doctor today who advised him to present today to emergency room for management of his symptoms General Initial Greet Date/Time 12/09/23 1517 Presentation Chief Complaint Abdominal pain Review of Systems ROS Statements All systems rev neg except as marked. (as per hpi ) Past Medical History - Adult Stated Complaint ABD PAIN, BLOOD IN STOOL,VOMITING Allergies Coded Allergies: Penicillins (Severe, THROAT SWELLS UP 06/30/23) Home Medications Active Scripts DICYCLOMINE (BENTYL) 20 MG PO QID DICYCLOMINE (BENTYL) 20 MG PO QID #30 TABS Prov: 09/03/23 Reported Medications ALPRAZolam (XANAX) 2 MG PO TID PRN ANXIETY HYDROmorphone (DILAUDID) 2 MG PO Q4H PRN PRN PAIN SCALE 7-10 AMYLASE/LIPASE/PROTEA 120,000/24,000/76,000 U (CREON 24) 24,000 UNITS PO TID MEALS METHOCARBAMOL (ROBAXIN) 750 MG PO Q4H PANTOPRAZOLE DR (PROTONIX) 40 MG PO DAILY ALBUTEROL (PROAIR DIGIHALER 90 MCG/ACT 0.65 GM) 2 PUFF INH RTQ6H Past Medical History: Reports: Asthma, Chronic pain, Pancreatitis (Chronic). Additional Medical History Anxiety Past Surgical History: Denies: Abdominal surgery. Family History: Denies: CAD < 40 yrs old. Additional Family History n/c Alcohol Use Denies EtOH use Drug Use Denies recreational drugs Other Social History Primary family support Additional Social History family hx- unknown Physical Exam Vital Signs Vital Signs First Documented: Result Date Time Pulse Ox 100 12/08 1538 B/P 192/100 12/08 1538 B/P Mean 130 12/08 1538 O2 Delivery Room air 12/08 1538 Temp 36.8 12/08 1538 Pulse 67 12/08 1538 Resp 20 12/08 1538 Last Documented: Result Date Time Pulse Ox 100 12/08 1538 B/P 192/100 12/08 1538 B/P Mean 130 12/08 1538 O2 Delivery Room air 12/08 1538 Temp 36.8 12/08 1538 Pulse 67 12/08 1538 Resp 20 12/08 1538 Review of Vital Signs Reviewed Basic Physical Exam Basic PE HEAD: Atraumatic/NC, NECK: Supple, RESP: No resp distress, ABD: Soft/ non-tender, EXT: No gross abnormality, SKIN: No rashes, warm/dry, NEURO: gross movement NL, PSYCH: NL thought content Interpretation Diagnostics Lab Results Interpretation Results Laboratory Tests 12/09/231616: [Embedded Image Not Available] Laboratory Tests: 12/08 1616 Chemistry Sodium (134 - 147 mEq/L) 141 Potassium (3.4 - 5.0 mEq/L) 3.4 Chloride (100 - 108 mEq/L) 106 Carbon Dioxide (21 - 33 mEq/l) 29 Anion Gap (0 - 20) 9 BUN (7 - 25 mg/dL) 5 L Creatinine (0.6 - 1.3 mg/dL) 0.9 Glomerular Filtr Rate (105 - 110) 112.1 H Glucose (77 - 141 mg/dL) 103 Calcium (8.0 - 10.5 mg/dL) 8.9 Total Bilirubin (0.0 - 1.0 mg/dL) 0.40 Direct Bilirubin (0.1 - 0.3 MG/DL) 0.20 Indirect Bilirubin (MG/DL) 0.20 AST (8 - 34 IUnit/L) 16 ALT (10 - 49 IUnit/L) 14 Total Alk Phosphatase (20 - 125 IUnit/L) 51 Total Protein (6.4 - 8.2 g/dL) 7.2 Albumin (3.4 - 5.0 g/dL) 3.60 Lipase (13 - 57 U/L) 132 H Hematology WBC (4.5 - 11.0 x10 3/uL) 6.3 RBC (4.00 - 5.60 x10 6/uL) 3.91 L Hgb (12.5 - 16.9 g/dL) 10.5 L Hct (37.5 - 50.7 %) 33.4 L MCV (81.0 - 99.0 fL) 85.4 MCH (27.0 - 33.0 pg) 26.9 L MCHC (33.0 - 37.0 g/dL) 31.4 L RDW (11.5 - 14.5 %) 15.5 H Plt Count (150 - 400 x10 3/uL) 448 H MPV (7.0 - 9.0 fL) 9.8 H Neut % (Auto) (56.0 - 77.0 %) 45.2 L Lymph % (Auto) (14.0 - 32.0 %) 40.4 H Randolph % (Auto) (4.8 - 9.0 %) 8.5 Eos % (Auto) (0.3 - 3.7 %) 4.6 H Baso % (Auto) (0.0 - 2.0 %) 1.1 Neut # (Auto) (2.0 - 7.6 x10 3/uL) 2.84 Lymph # (Auto) (1.0 - 3.8 x10 3/uL) 2.53 Randolph # (Auto) (0.1 - 0.8 x10 3/uL) 0.53 Eos # (Auto) (0.0 - 0.2 x10 3/uL) 0.29 H Baso # (Auto) (0.0 - 0.2 x10 3/uL) 0.07 Abs Immat Gran (auto) (0.00 - 0.03 x10 3/uL) 0.01 Immature Gran % (0.0 - 2.0 %) 0.2 Nucleated RBC % (0 - 0 %) 0.0 Nucleated RBCs # (Man) (0.0 - 0.1 x10 3/uL) 0.00 Lab Imaging Statement Laboratory radiographic studies reviewed and considered in the medical decision-making. Point of Care Testing Pulse Oximetry Interpretation Interpreted by me, Pulse oximetry normal Re-Evaluation MDM Free Text MDM Notes Free Text MDM Notes Differential pancreatitis cholecystitis cholangitis chronic pain syndrome GERD gastritis obstruction No jaundice or laboratory evidence of transaminitis or bilirubin elevation, patient nontoxic no dry heaving or vomiting exhibited in department no focal abdominal pain or tenderness low suspicion for cholecystitis cholangitis bowel obstruction or other emergent surgical processes, risk of imaging outweighs benefits. Offered multiple medication modalities however patient declined all further therapy after initial round of Devang noting he must receive IV opioid pain medication and that that is the reason he was directed to the emergency room today by his PCP. Patient is clinically sober and decisional choosing to leave AGAINST MEDICAL ADVICE and has been encouraged to follow-up with his physician and to return immediately to the ER if he has worsening symptoms. ED Course Medication(s) Ordered Medication(s) Ordered: Antihistamine Drugs Sig/José Miguel Start time Last Medication Dose Route Stop Time Status Admin Diphenhydramine HCl 25 MG X1ED STA 12/08 1534 DC 12/08 IV 12/08 1535 1618 Autonomic Drugs Sig/José Miguel Start time Last Medication Dose Route Stop Time Status Admin Dicyclomine HCl 20 MG X1ED STA 12/08 1655 DC PO 12/08 1656 Cardiovascular Drugs Sig/José Miguel Start time Last Medication Dose Route Stop Time Status Admin Lidocaine HCl 15 ML X1ED STA 12/08 1723 DC PO 12/08 1724 Electrolytic, Caloric, And Sneha Sig/José Miguel Start time Last Medication Dose Route Stop Time Status Admin Sodium Chloride 1,000 ML X1ED STA 12/08 1532 DC 12/08 IV 12/08 1631 1618 Gastrointestinal Drugs Sig/José Miguel Start time Last Medication Dose Route Stop Time Status Admin Al Hydrox/Mg Hydrox/ 30 ML X1ED STA 12/08 1723 DC Simethicone PO 12/08 1724 Famotidine 20 MG X1ED STA 12/08 1722 DC IV 12/08 1723 Metoclopramide HCl 5 MG X1ED STA 12/08 1534 DC 12/08 IV 12/08 1535 1617 Patient Discharge Departure Vital Signs/Condition Vital Signs First Documented: Result Date Time Pulse Ox 100 12/08 1538 B/P 192/100 12/08 1538 B/P Mean 130 12/08 1538 O2 Delivery Room air 12/08 1538 Temp 36.8 12/08 1538 Pulse 67 12/08 1538 Resp 20 12/08 1538 Last Documented: Result Date Time Pulse Ox 100 12/08 1538 B/P 192/100 12/08 1538 B/P Mean 130 12/08 1538 O2 Delivery Room air 12/08 1538 Temp 36.8 12/08 1538 Pulse 67 12/08 1538 Resp 20 12/08 1538 All vital signs available at the time of this entry have been reviewed. Clinical Impression Clinical Impression Primary Impression: Chronic pancreatitis Secondary Impressions: Drug-seeking behavior Disposition Decision Other )( Time 1801 )( Date 12/09/23 Against Medical Advice Yes at 1802 RPT #:[id number] END OF REPORT [facility] 2023-12-03 07:47:00 [facility] ([facility]) Pain Management Progress Note REPORT#:[id number] REPORT STATUS: Signed REPORT INITIALIZATION DATE:12/03/23 TIME: 07 PATIENT: TANNER BENDER UNIT #: [id number] [facility] AGE: 37 SEX: M ATTEND: Jerzy Day MD ADM AUTHOR: Loi Cerda RUBBER GOODS INSPECTOR TESTER REPT SERVICE DT/TIME: 12/03/23 8408 * ALL edits or amendments must be made on the electronic/computer document * Loi Cerda 12/03/23 0747: Subjective Chief complaint: Patient seen and examined. Chart/MAR reviewed Patient states he hurts. He wants IV Dilaudid. I denied request based on objective findings available to me at this time. I suggested considering Suboxone. I reviewed the medication. He will consider this. Patient being seen for abdominal pain, chronic pain, chronic pancreatitis, muscle spasms Patient is still requiring medications to help with managing current problems No fever/chills, chest pain, orthopnea, nausea/vomiting, pruritus, or hallucinations. 14-point ROS undertaken and is unremarkable except as noted. Objective General VS/I O: Vital Signs Date Temp Pulse Resp B/P B/P Mean Pulse Ox FiO2 12/01 97.5-98.2 50-56 15-18 138-146/80-88 101.9-106.5 95-97 Last Documented: Result Date Time Pulse Ox 97 12/01 2322 B/P 146/80 12/01 2322 B/P Mean 101.9 12/01 2323 Temp 98.1 12/01 232 Pulse 56 12/01 2323 Resp 18 12/01 232 O2 Delivery Room air 12/01 1552 PATIENT WEIGHT: Weight (lb): Weight (oz): Weight (kg): 58.182 Medications: Active Meds + DC'd Last 24 Hrs Ketorolac Tromethamine (TORADOL 30 MG) 30 MG Q6H PRN PRN IV (DCD) Metronidazole/Sodium Chloride (metroNIDAZOLE 500MG/NS 100ML) 100 ML Q12H IV (DCD) Amitriptyline HCl (ELAVIL) 10 MG BID PO (DCD) Sodium Chloride (SODIUM CHLORIDE 0.9%) 1,000 ML .Q10H IV (DCD) Methocarbamol (ROBAXIN 750 MG) 750 MG Q6H PRN PO (DCD) Acetaminophen (TYLENOL) 650 MG Q4H PRN PRN PO (DCD) Al Hydrox/Mg Hydrox/Simethicone (MYLANTA) 30 ML Q4H PRN PRN PO (DCD) Docusate Sodium (COLACE) 100 MG BID PRN PRN PO (DCD) Hydromorphone HCl (DILAUDID) 2 MG Q4H PRN PRN PO (DCD) Ondansetron HCl (ZOFRAN) 4 MG Q4H PRN PRN IV (DCD) Acetaminophen (TYLENOL) 650 MG Q4H PRN PRN PO (DC) Ondansetron HCl (ZOFRAN) 4 MG Q6H PRN PRN IV (DC) Physical Exam General appearance: alert, awake, oriented, cooperative Head/eyes: atraumatic, EOMI, normocephalic, PERRLA ENT: normal nose Neck: no JVD, supple/no meningismus Cardiovascular: regular rate rhythm, normal heart sounds Respiratory: clear to auscultation, aerating well, symmetric expansion Abdomen: soft, non-tender, no distention Extremities: moves all, no edema, no clubbing, no cyanosis Neuro/BOBBIN DISKER: alert, oriented X 3, normal speech, CNII-XII grossly intact Skin: warm Results Findings/data: Laboratory Tests: 12/01 12/01 1551 1110 Chemistry POC Glucose (70 - 110 MG/DL) 123 H 101 Diagnosis, Assessment Plan Free text A P: This is a 37-year-old male who presents with the following: Abdominal pain -11/30 CTAP: Fluid-filled nondistended small bowel may represent enteritis. -Lipase normal -Tylenol 650 mg PO q4h PRN pain scale 1-3 -Dilaudid 2 mg PO q4h PRN pain scale 4-10 -Amitriptyline 10 mg PO BID (12/01) -Manageable Chronic pain, chronic pancreatitis -Pain medications as outlined above -Manageable Muscle spasms -Robaxin 750 mg PO q6h PRN -Manageable Opioid dependency -Appears to have drug seeking behavior -Consider Suboxone Tobacco dependence -The patient has been counseled on 12/02/2023 -Discussed the harmful effects of smoking such as worsening peripheral artery disease, coronary artery disease, and lung compromise. Discussed his willingness to quit. Offered Chantix or nicotine patch Disposition: No outpatient follow up needed Rx: Pharmacy: [facility] ([id number]) [address] [place] [address] Past medical history: Asthma, Pancreatitis Past surgical history: None listed Family history: Noncontributory Social history: Denies alcohol or illicit drug use. Current smoker Allergies: Penicillins All pertinent diagnostics/labs from the last 24 hours and during the course of the admission were reviewed. Plan discussed with the patient and the nurse. All questions were answered. Patient will be monitored for deleterious side effects associated with opioids and sedative medications. Medications will be adjusted further clinical course. Risks versus benefits of opioid medications were reviewed to include, but not limited to respiratory depression, accidental overdose, altered mental status, sudden , constipation which could result in bowel obstruction, seizures, withdrawal, dependency/addiction, risk for falls. Goals: Daily pain control. Case reviewed and discussed with Dr. Polanco who agrees with plan of care. [place] [employer] ADJUDICATION SPECIALIST records reviewed: Tanner Bender 1985 Summary Total Prescriptions 9 Total Private Pay 0 Total Prescribers 8 Total Pharmacies 2 Narcotics (excluding Buprenorphine) Current MME/day 0.00 30 Day Avg MME/day 0.00 Current Qty 0 08/07/2023 08/07/2023 3 HYDROMORPHONE 4 MG TABLET 20.00 5 Ju Kyle [id number] [employer] ( [id number]) 0 80.00 MME Comm Ins [place] [facility] ([id number]) [id number] [place] [phone] [facility] [id number] [facility] [id number] Corie Polanco 12/11/23 0941: Attestations Physician Attestation Agree w/findings plan: The patient was seen and examined by the mid-level. We developed the care plan, which was continued by the mid-level provider to the best of my knowledge. I was immediately available. at 0752 at 6188 RPT #:[id number] END OF REPORT [facility] 2023-12-02 09:07:00 [facility] ([facility]) History Physical - Adult REPORT#:[id number] REPORT STATUS: Signed REPORT INITIALIZATION DATE:12/02/23 TIME: 906 PATIENT: TANNER BENDER UNIT #: [id number] ROOM/BED: [place] [address] : [birth year] AGE: 37 SEX: M ATTEND: Jerzy Day MD ADM AUTHOR: Jerzy Day MD REPT SERVICE DT/TIME: 12/02/23906 * ALL edits or amendments must be made on the electronic/computer document * History of Present Illness Free Text HPI Notes Free Text HPI Notes: 37 year old male with multiple co-morbidities presents to the ED with intractable abdominal pain, nausea. no fever, chills, chest pain, shortness of breath. CT a/p shows mild enteritis History Past medical history: Reports: Asthma, Chronic pain, Pancreatitis (Chronic). Additional medical history: Anxiety Past surgical history: Denies: Abdominal surgery. Family history: Denies: CAD < 40 yrs old. Additional family history: n/c Alcohol use: Denies EtOH use Drug use: Denies recreational drugs Smoking status for patients 13 years old or older: Former Smoker Date last smoked: 04/14/16 Packs per day: 0.5 Years smoked: 6 Pack years: 3.0 Other social history: Primary family support Additional social history: family hx- unknown Medication/Allergy-Vaccine Hx Allergies: Coded Allergies: Penicillins (Severe, THROAT SWELLS UP 06/30/23) Review of Systems All systems rev neg: except as marked Physical Exam VS/I O Vital Signs: Date Time Temp Pulse Resp B/P B/P Pulse O2 O2 Flow FiO2 Mean Ox Delivery Rate 12/01 2323 36.7 56 18 146/80 101.9 97 12/01 1856 36.8 51 18 143/86 104.7 97 12/01 1552 36.4 52 16 143/88 106.5 95 Room air 12/01 1111 36.4 50 15 138/87 104.3 97 Room air PATIENT WEIGHT: Weight (lb): Weight (oz): Weight (kg): 58.182 General appearance: alert, awake, oriented Head/Eyes: atraumatic, EOMI, normocephalic, PERRLA ENT: normal pharynx Neck: non-tender, no JVD Cardiovascular: regular rate rhythm, normal heart sounds, no murmur Respiratory: clear to auscultation, no distress, no tenderness, aerating well Abdomen/GI: active bowel sounds, soft, non-tender, no guarding Extremities: moves all Musculoskeletal: normal inspection Neuro/BOBBIN DISKER: alert, oriented X 3 Diagnosis, Assessment Plan Problem List/A P: 1. Intractable vomiting with nausea 2. UGIB (upper gastrointestinal bleed) 3. Colitis Free Text DxA P Notes Free Text DxA P Notes: medications reviewed, contineu same resume home meds pain mgmt CT a/p noted empiric IV abx supportive care at 1027 RPT #:[id number] END OF REPORT [facility] 2023-12-02 06:59:00 [facility] ([facility]) Pain Management Consult Note REPORT#:[id number] REPORT STATUS: Signed REPORT INITIALIZATION DATE:12/02/23 TIME: 658 PATIENT: TANNER BENDER UNIT #: [id number] ROOM/BED: [place] [address] : [birth year] AGE: 37 SEX: M ATTEND: Jerzy Day MD ADM AUTHOR: Loi Cerda RUBBER GOODS INSPECTOR TESTER REPT SERVICE DT/TIME: 12/02/23 0659 * ALL edits or amendments must be made on the electronic/computer document * Loi Cerda 12/02/23 0659: History of Present Illness Requesting clinician: Rm Chow MD Chief complaint: Abdominal pain PCP: PCP: No Primary or Family Physician HPI: Patient is a 37-year-old male who presented to the ED for abdominal pain. He has recurrent admissions for the same. He was sleeping when I entered. I woke him up , he complained of pain, and fell right back to sleep. He has had multiple admissions over the last month. Pain is constant and burning. Lipase is normal. CTAP fairly unremarkable. He wants IV Dilaudid. Pain management has been asked to assist with pain control. Review of Systems GI: abdominal pain. All systems rev neg: except as marked History - Adult longitudinal Past medical history: Reports: Asthma, Chronic pain, Pancreatitis (Chronic). Additional medical history: Anxiety Past surgical history: Denies: Abdominal surgery. Family history: Denies: CAD < 40 yrs old. Additional family history: n/c Alcohol use: Denies EtOH use Drug use: Denies recreational drugs Smoking status for patients 13 years old or older: Former Smoker Date last smoked: 04/14/16 Packs per day: 0.5 Years smoked: 6 Pack years: 3.0 Other social history: Primary family support Additional social history: family hx- unknown Medications: Home Medications: Medication Dose/Rte/Freq Days Qty Entered Last Max Daily Dose Reviewed ALPRAZolam (XANAX) 2 MG PO 07/13/22 12/01/23 Strength: 2 MG TAB TID PRN ANXIETY 2307 2337 HYDROmorphone (DILAUDID) 2 MG PO 11/11/22 Strength: 2 MG TAB Q4H PRN PRN PAIN 1341 SCALE 7-10 AMYLASE/LIPASE/PROTEA 24,000 UNITS PO 02/02/23 12/01/23 120,000/24,000/76,000 U TID MEALS 1915 2324 (CREON 24) Strength: 24-76-120K CAP. METHOCARBAMOL 750 MG PO Q4H 12/01/23 12/01/23 (ROBAXIN) 2 2324 Strength: [address] 40 MG PO DAILY 12/01/23 12/01/23 (PROTONIX) 2323 2327 Strength: 40 MG TAB. ALBUTEROL 2 PUFF INH RTQ6H 11/11/22 12/01/23 (PROAIR DIGIHALER 90 1017 2337 MCG/ACT 0.65 GM) Strength: 90 MCG INHALER DICYCLOMINE (BENTYL) 20 MG PO QID 30 09/03/23 12/01/23 Strength: 20 MG TAB 0108 2337 Current Hospital Medications: Anti-Infective Agents Sig/José Miguel Start time Last Medication Dose Route Stop Time Status Admin Vancomycin HCl 1,000 MG X1ED STA 11/30 2121 DC (VANCOMYCIN HCL) IV 11/30 2220 Sodium Chloride 250 ML (SODIUM CHLORIDE 0.9%) Autonomic Drugs Sig/José Miguel Start time Last Medication Dose Route Stop Time Status Admin Methocarbamol 750 MG Q6H PRN 12/01 0000 AC 12/01 (ROBAXIN 750 MG) PO 03/01 0000 0024 Central Nervous System Agents Sig/José Miguel Start time Last Medication Dose Route Stop Time Status Admin Acetaminophen 650 MG Q4H PRN PRN 11/30 2345 AC (TYLENOL) PO 02/28 234 Hydromorphone HCl 2 MG Q4H PRN PRN 11/30 2345 AC 12/01 (DILAUDID) PO 12/05 2344 0513 Acetaminophen 650 MG Q4H PRN PRN 11/30 2130 AC (TYLENOL) PO 12/01 2019 Ketorolac 15 MG X1ED STA 11/30 2121 DC Tromethamine IV 11/30 2121 (TORADOL) Morphine Sulfate 6 MG X1ED STA 11/30 1830 DC 11/30 (morphine SULFATE) IV 11/30 1831 1917 Morphine Sulfate 4 MG X1ED STA 11/30 1623 DC 11/30 (morphine SULFATE) IV 11/30 1624 1700 Diagnostic Agents Sig/José Miguel Start time Last Medication Dose Route Stop Time Status Admin Iopamidol 100 ML .STK-MED ONE 11/30 2017 DC 11/30 (ISOVUE-300 500ML) IV 11/30 2018 2018 Electrolytic, Caloric, And Sneha Sig/José Miguel Start time Last Medication Dose Route Stop Time Status Admin Sodium Chloride 1,000 ML .Q10H 12/01 0015 AC 12/01 (SODIUM CHLORIDE IV 03/01 0014 0026 0.9%) Sodium Chloride 100 ML ASDIR 11/30 234 CAN (SODIUM CHLORIDE IV 02/29 2344 0.9%) Sodium Chloride 1,000 ML .Q10H 11/30 2130 DC (SODIUM CHLORIDE IV 12/01 2019 0.9%) Sodium Chloride 1,000 ML X1ED STA 11/30 1623 DC 11/30 (SODIUM CHLORIDE IV 11/30 1722 1702 0.9%) Gastrointestinal Drugs Sig/José Miguel Start time Last Medication Dose Route Stop Time Status Admin Al Hydrox/Mg Hydrox/ 30 ML Q4H PRN PRN 11/30 2345 AC Simethicone PO 02/28 234 (MYLANTA) Docusate Sodium 100 MG BID PRN PRN 11/30 2345 AC (COLACE) PO 02/28 234 Ondansetron HCl 4 MG Q4H PRN PRN 11/30 2345 AC (ZOFRAN) IV 02/29 2344 Ondansetron HCl 4 MG Q6H PRN PRN 11/30 213 AC (ZOFRAN) IV 12/01 2019 Ondansetron HCl 4 MG X1ED PRN PRN 11/30 1630 DC 11/30 (ZOFRAN) IV 12/01 1629 1700 Allergies: Coded Allergies: Penicillins (Severe, THROAT SWELLS UP 06/30/23) Objective Physical Exam VS/I O: Last Documented: Result Date Time Pulse Ox 96 11/30 2157 B/P 126/63 11/30 2157 B/P Mean 0.0 11/30 2157 Temp 98.6 11/30 2157 Pulse 79 11/30 2157 Resp 18 11/30 2157 O2 Delivery Room air 11/30 1632 24 hour I O ending at 0700: 12/01 0700 11/30 1900 Intake Total Output Total Balance Patient 58.182 kg Weight Weight Stated/Reported Measurement Method PATIENT WEIGHT: Weight (lb): Weight (oz): Weight (kg): 58.182 General appearance: alert, awake, oriented Head/eyes: atraumatic, EOMI, normocephalic, PERRLA ENT: normal nose Neck: no JVD, supple/no meningismus Cardiovascular: regular rate rhythm, normal heart sounds Respiratory: clear to auscultation, aerating well, symmetric expansion Abdomen: soft, non-tender, no distention Extremities: moves all, no edema, no clubbing, no cyanosis Neuro/BOBBIN DISKER: alert, oriented X 3, normal speech, CNII-XII grossly intact Results Findings/data: Laboratory Tests: 12/01 12/01 11/30 11/30 0446 0445 1828 1700 Chemistry Sodium (134 - 147 mEq/L) 142 142 Potassium (3.4 - 5.0 mEq/L) 4.6 3.9 Chloride (100 - 108 mEq/L) 110 H 110 H Carbon Dioxide (21 - 33 mEq/l) 26 27 Anion Gap (0 - 20) 11 9 BUN (7 - 25 mg/dL) 6 L 7 Creatinine (0.6 - 1.3 mg/dL) 1.0 1.0 Glomerular Filtr Rate (105 - 110) 98.8 L 98.8 L Glucose (77 - 141 mg/dL) 87 96 Calcium (8.0 - 10.5 mg/dL) 8.7 7.8 L Total Bilirubin (0.0 - 1.0 mg/dL) 0.40 Direct Bilirubin (0.1 - 0.3 MG/DL) 0.20 Indirect Bilirubin (MG/DL) 0.20 AST (8 - 34 IUnit/L) 19 ALT (10 - 49 IUnit/L) 17 Total Alk Phosphatase (20 - 125 IUnit/L) 56 Total Protein (6.4 - 8.2 g/dL) 6.1 L Albumin (3.4 - 5.0 g/dL) 3.20 L Lipase (13 - 57 U/L) 39 Hematology WBC (4.5 - 11.0 x10 3/uL) 3.9 L 4.0 L RBC (4.00 - 5.60 x10 6/uL) 3.86 L 4.13 Hgb (12.5 - 16.9 g/dL) 10.4 L 11.3 L Hct (37.5 - 50.7 %) 33.2 L 35.3 L MCV (81.0 - 99.0 fL) 86.0 85.5 MCH (27.0 - 33.0 pg) 26.9 L 27.4 MCHC (33.0 - 37.0 g/dL) 31.3 L 32.0 L RDW (11.5 - 14.5 %) 16.0 H 16.3 H Plt Count (150 - 400 x10 3/uL) 299 302 MPV (7.0 - 9.0 fL) 10.3 H 10.5 H Neut % (Auto) (56.0 - 77.0 %) 30.4 L 28.6 L Lymph % (Auto) (14.0 - 32.0 %) 51.3 H 50.1 H Randolph % (Auto) (4.8 - 9.0 %) 13.0 H 16.5 H Eos % (Auto) (0.3 - 3.7 %) 3.8 H 2.8 Baso % (Auto) (0.0 - 2.0 %) 1.5 2.0 Neut # (Auto) (2.0 - 7.6 x10 3/uL) 1.19 L 1.14 L Lymph # (Auto) (1.0 - 3.8 x10 3/uL) 2.01 2.00 Randolph # (Auto) (0.1 - 0.8 x10 3/uL) 0.51 0.66 Eos # (Auto) (0.0 - 0.2 x10 3/uL) 0.15 0.11 Baso # (Auto) (0.0 - 0.2 x10 3/uL) 0.06 0.08 Abs Immat Gran (auto) (0.00 - 0.03 0.00 0.00 x10 3/uL) Immature Gran % (0.0 - 2.0 %) 0.0 0.0 Nucleated RBC % (0 - 0 %) 0.0 0.0 Nucleated RBCs # (Man) (0.0 - 0.1 0.00 0.00 x10 3/uL) Microbiology: Date/Time Procedure - Status Source Growth 11/30 162 Campylobacter Culture - ORD STOOL 11/30 162 Escherichia coli 0157 Culture - ORD STOOL 11/30 162 Stool Culture - ORD STOOL 11/30 162 Clostridioides difficile Toxin Assay - ORD STOOL Recent Impressions: CAT SCAN - CT ABD PELVIS W/CONT 11/30 2016 Report Impression - Status: SIGNED Entered: 12/01/20232103 Impression: 1. Fluid-filled nondistended small bowel may represent enteritis. Correlate clinically Impression By: Isaac - Loi Crooks M.D. Diagnosis, Assessment Plan Free text A P: This is a 37-year-old male who presents with the following: Abdominal pain -11/30 CTAP: Fluid-filled nondistended small bowel may represent enteritis. -Lipase normal -[id number] mg PO q4h PRN pain scale 1-3 -Dilaudid 2 mg PO q4h PRN pain scale 4-10 -Start Amitriptyline 10 mg PO BID (12/01) Chronic pain, chronic pancreatitis -Pain medications as outlined above Muscle spasms -Robaxin 750 mg PO q6h PRN Opioid dependency -Appears to have drug seeking behavior -Consider Suboxone Tobacco dependence -The patient has been counseled on 12/02/2023 -Discussed the harmful effects of smoking such as worsening peripheral artery disease, coronary artery disease, and lung compromise. Discussed his willingness to quit. Offered Chantix or nicotine patch Disposition: Rx: Pharmacy: [facility] ([id number] [phone] [place] [address] Past medical history: Asthma, Pancreatitis Past surgical history: None listed Family history: Noncontributory Social history: Denies alcohol or illicit drug use. Current smoker Allergies: Penicillins All pertinent diagnostics/labs from the last 24 hours and during the course of the admission were reviewed. Plan discussed with the patient and the nurse. All questions were answered. Patient will be monitored for deleterious side effects associated with opioids and sedative medications. Medications will be adjusted further clinical course. Risks versus benefits of opioid medications were reviewed to include, but not limited to respiratory depression, accidental overdose, altered mental status, sudden , constipation which could result in bowel obstruction, seizures, withdrawal, dependency/addiction, risk for falls. Goals: Daily pain control. Case reviewed and discussed with Dr. Polanco who agrees with plan of care. [facility] records reviewed: Tanner Bender 1985 Summary Total Prescriptions 9 Total Private Pay 0 Total Prescribers 8 Total Pharmacies 2 Narcotics (excluding Buprenorphine) Current MME/day 0.00 30 Day Avg MME/day 0.00 Current Qty 0 08/07/2023 08/07/2023 3 HYDROMORPHONE 4 MG TABLET 20.00 5 Ju Kyle [id number] [employer] ( [phone]) 0 80.00 MME Comm Ins [place] [facility] [id number]) [id number] [place] [phone] [facility] [phone] [facility] [phone] Corie Polanco 12/08/23 1540: Attestations Physician Attestation Agree w/findings plan: The patient was seen and examined by the mid-level. We developed the care plan, which was continued by the mid-level provider to the best of my knowledge. I was immediately available. at [phone] at 3002 RPT #:[id number] END OF REPORT [facility] 2023-12-01 16:24:00 [facility] ([facility]) EMERGENCY PROVIDER REPORT REPORT#:[id number] REPORT STATUS: Signed DATE:12/01/23 TIME: 1624 PATIENT: TANNER BENDER UNIT #: [id number] ROOM/BED: [place] [id number] AGE: 37 SEX: M PCP PHYS: No Primary or Family Physician SERVICE AUTHOR: Rm Chow MD * ALL edits or amendments must be made on the electronic/computer document * HPI-Nausea/Vomit/Diarrhea General Confirmed Patient Yes Initial Greet Date/Time 12/01/23 1600 PCP Yeimi Manrique CLS Presentation Chief Complaint Nausea, Vomiting Free Text HPI Notes Free Text HPI Notes Tanner Bender is a 37 yr old man with history of chronic pain, chronic pancreatitis, smoking who presents ER with abdominal pain. Patient states seen by PCP recently and told to come to ER for worsening pain. He notes intermittent nausea vomiting and diarrhea. Supposed be taking Cipro for "C. difficile" but states he is not taking it recently. No falls or trauma or chest pain or travel or COVID contacts. Review of Systems ROS Statements All systems rev neg except as marked. Focused Review of Systems Constitutional Reports: Chills. GI Reports: Abdominal pain, Nausea, Vomiting. Past Medical History - Adult Stated Complaint BLOOD IN STOOL/N/V Allergies Coded Allergies: Penicillins (Severe, THROAT SWELLS UP 06/30/23) Home Medications Active Scripts DICYCLOMINE (BENTYL) 20 MG PO QID DICYCLOMINE (BENTYL) 20 MG PO QID #30 TABS Prov: 09/03/23 Reported Medications ALPRAZolam (XANAX) 2 MG PO TID PRN ANXIETY HYDROmorphone (DILAUDID) 2 MG PO Q4H PRN PRN PAIN SCALE 7-10 AMYLASE/LIPASE/PROTEA 120,000/24,000/76,000 U (CREON 24) 24,000 UNITS PO TID MEALS ALBUTEROL (PROAIR DIGIHALER 90 MCG/ACT 0.65 GM) 2 PUFF INH RTQ6H Review of Nursing Notes Triage notes reviewed Past Medical History: Reports: Asthma, Chronic pain, Pancreatitis (Chronic). Additional Medical History Anxiety Past Surgical History: Denies: Abdominal surgery. Family History: Denies: CAD < 40 yrs old. Additional Family History n/c Alcohol Use Denies EtOH use Drug Use Denies recreational drugs Other Social History Primary family support Additional Social History family hx- unknown Physical Exam Vital Signs Vital Signs First Documented: Result Date Time Pulse Ox 98 11/30 1633 B/P 165/92 11/30 1633 B/P Mean 116 11/30 1633 O2 Delivery Room air 11/30 1633 Temp 98.1 11/30 1633 Pulse 69 11/30 1633 Resp 17 11/30 1633 Last Documented: Result Date Time Pulse Ox 100 11/30 1700 B/P 147/93 11/30 1700 B/P Mean 115 11/30 1700 Pulse 60 11/30 1700 O2 Delivery Room air 11/30 1633 Temp 98.1 11/30 1633 Resp 17 11/30 1633 Review of Vital Signs Reviewed Focused PE General/Const General/Const Awake, Alert, Well appearing Eyes Eyes PERRL Ears/Nose/Throat Ears/Nose/Throat Airway patent, Mucous membranes moist, Pharynx NL Resp/Chest Respiratory/Chest Breath sounds NL, Breath sounds = bilat, No respiratory distress, No rales, No rhonchi, No wheezing Cardiovascular Cardiovascular Heart rate NL, Regular rhythm, Heart sounds NL, Peripheral circulation NL Abdomen/GI Abdomen/GI Atraumatic, No guarding Tenderness/Guarding/Rebound Tender epigastric. Negative: Tender diffuse. MS Back Back Inspection NL, Non-tender, No CVA tenderness Skin Skin Color NL, No rash, Warm, Dry, Turgor NL Neurologic Neurologic Oriented X3, Speech NL, No motor deficits, No sensory deficits Interpretation Diagnostics Lab Results Interpretation Considerations Reviewed prior records Results Laboratory Tests 12/01/231827: [Embedded Image Not Available] 12/01/231699: [Embedded Image Not Available] Laboratory Tests: 11/30 170 Chemistry Sodium (134 - 147 mEq/L) 142 Potassium (3.4 - 5.0 mEq/L) 3.9 Chloride (100 - 108 mEq/L) 110 H Carbon Dioxide (21 - 33 mEq/l) 27 Anion Gap (0 - 20) 9 BUN (7 - 25 mg/dL) 7 Creatinine (0.6 - 1.3 mg/dL) 1.0 Glomerular Filtr Rate (105 - 110) 98.8 L Glucose (77 - 141 mg/dL) 96 Calcium (8.0 - 10.5 mg/dL) 7.8 L Total Bilirubin (0.0 - 1.0 mg/dL) 0.40 Direct Bilirubin (0.1 - 0.3 MG/DL) 0.20 Indirect Bilirubin (MG/DL) 0.20 AST (8 - 34 IUnit/L) 19 ALT (10 - 49 IUnit/L) 17 Total Alk Phosphatase (20 - 125 IUnit/L) 56 Total Protein (6.4 - 8.2 g/dL) 6.1 L Albumin (3.4 - 5.0 g/dL) 3.20 L Lipase (13 - 57 U/L) 39 Hematology WBC (4.5 - 11.0 x10 3/uL) 4.0 L RBC (4.00 - 5.60 x10 6/uL) 4.13 Hgb (12.5 - 16.9 g/dL) 11.3 L Hct (37.5 - 50.7 %) 35.3 L MCV (81.0 - 99.0 fL) 85.5 MCH (27.0 - 33.0 pg) 27.4 MCHC (33.0 - 37.0 g/dL) 32.0 L RDW (11.5 - 14.5 %) 16.3 H Plt Count (150 - 400 x10 3/uL) 302 MPV (7.0 - 9.0 fL) 10.5 H Neut % (Auto) (56.0 - 77.0 %) 28.6 L Lymph % (Auto) (14.0 - 32.0 %) 50.1 H Randolph % (Auto) (4.8 - 9.0 %) 16.5 H Eos % (Auto) (0.3 - 3.7 %) 2.8 Baso % (Auto) (0.0 - 2.0 %) 2.0 Neut # (Auto) (2.0 - 7.6 x10 3/uL) 1.14 L Lymph # (Auto) (1.0 - 3.8 x10 3/uL) 2.00 Randolph # (Auto) (0.1 - 0.8 x10 3/uL) 0.66 Eos # (Auto) (0.0 - 0.2 x10 3/uL) 0.11 Baso # (Auto) (0.0 - 0.2 x10 3/uL) 0.08 Abs Immat Gran (auto) (0.00 - 0.03 x10 3/uL) 0.00 Immature Gran % (0.0 - 2.0 %) 0.0 Nucleated RBC % (0 - 0 %) 0.0 Nucleated RBCs # (Man) (0.0 - 0.1 x10 3/uL) 0.00 Microbiology: Date/Time Procedure - Status Source Growth 11/30 162 Campylobacter Culture - ORD STOOL 11/30 162 Escherichia coli 0157 Culture - ORD STOOL 11/30 162 Stool Culture - ORD STOOL 11/30 162 Clostridioides difficile Toxin Assay - ORD STOOL Recent Impressions: CAT SCAN - CT ABD PELVIS W/CONT 11/30 2016 Report Impression - Status: SIGNED Entered: 12/01/20232103 Impression: 1. Fluid-filled nondistended small bowel may represent enteritis. Correlate clinically Impression By: Isaac Crooks M.D. ECG #1 Interpretation ECG Documented in MUSE Yes Date 12/01/23 Interpreted by and reviewed by me, Independently interpreted, ED physician NL ECG Interpretation No STEMI, Normal QRS, Normal axis, Adequate tracing, early repol LVH significant t waves Rate 58 Rhythm Bradycardia Re-Evaluation MDM Free Text MDM Notes Free Text MDM Notes Prior records reviewed. Case discussed admitting care team. Place consult to pain management. Patient getting upset with me as I had ordered him Toradol. No acute abdomen or peritonitis. She does still pending. Admit care plan discussed with patient. He agrees with plan. Will keep for observation for additional testing and specialty input. Otherwise no distress and nontoxic in no sepsis. Re-Evaluation/Progress #1 Time of Re-Eval 2117 ED Course Medication(s) Ordered Medication(s) Ordered: Anti-Infective Agents Sig/José Miguel Start time Last Medication Dose Route Stop Time Status Admin Vancomycin HCl 1,000 MG X1ED STA 11/30 2121 AC Sodium Chloride 250 ML IV 11/30 2220 Central Nervous System Agents Sig/José Miguel Start time Last Medication Dose Route Stop Time Status Admin Acetaminophen 650 MG Q4H PRN PRN 11/30 2129 AC PO 12/01 2018 Ketorolac 15 MG X1ED STA 11/30 2120 DC Tromethamine IV 11/30 2121 Morphine Sulfate 6 MG X1ED STA 11/30 1830 DC 11/30 IV 11/30 1831 1917 Morphine Sulfate 4 MG X1ED STA 11/30 1623 DC 11/30 IV 11/30 1624 1700 Diagnostic Agents Sig/José Miguel Start time Last Medication Dose Route Stop Time Status Admin Iopamidol 100 ML .STK-MED ONE 11/30 2017 DC 11/30 IV 11/30 2018 2018 Electrolytic, Caloric, And Sneha Sig/José Miguel Start time Last Medication Dose Route Stop Time Status Admin Sodium Chloride 1,000 ML .Q10H 11/30 2130 AC IV 12/01 2018 Sodium Chloride 1,000 ML X1ED STA 11/30 1623 DC 11/30 IV 11/30 1722 1702 Gastrointestinal Drugs Sig/José Miguel Start time Last Medication Dose Route Stop Time Status Admin Ondansetron HCl 4 MG Q6H PRN PRN 11/30 213 AC IV 12/01 2018 Ondansetron HCl 4 MG X1ED PRN PRN 11/30 1630 DC 11/30 IV 12/01 1629 1700 Patient Discharge Departure Vital Signs/Condition Vital Signs First Documented: Result Date Time Pulse Ox 98 11/30 1633 B/P 165/92 11/30 1633 B/P Mean 116 11/30 1633 O2 Delivery Room air 11/30 1633 Temp 98.1 11/30 1633 Pulse 69 11/30 1633 Resp 17 11/30 1633 Last Documented: Result Date Time Pulse Ox 100 11/30 1700 B/P 147/93 11/30 1700 B/P Mean 115 11/30 1700 Pulse 60 11/30 1700 O2 Delivery Room air 11/30 1633 Temp 98.1 11/30 1633 Resp 17 11/30 1633 All vital signs available at the time of this entry have been reviewed. Condition Stable, Improved Clinical Impression Clinical Impression Primary Impression: Abdominal pain Secondary Impressions: Chronic pain, Enteritis Disposition Decision Hospitalize Hosp Physician Name Jerzy Day MD )( Accepts Hospitalization Yes )( Reason for Hospitalization enteritis )( Accepted Time 2117 )( Accepted Date 12/01/23 Call Information will see patient Discharge/Care Plan Counseled Regarding Diagnosis, Lab results, Imaging studies Hold in ED Note I have spoken with the patient and/or caregivers. I have explained the patient's condition, diagnoses and treatment plan based on the information available to me at this time. I have answered the patient's and/or caregiver's questions and addressed any concerns. The patient and/or caregivers have as good an understanding of the patient's diagnosis, condition and treatment plan as can be expected at this point. The patient has been stabilized within the capability of the emergency department. Although the emergency department has completed all appropriate management and is prepared to transport the patient to an observation or inpatient service, there are no available beds. Therefore the patient will be placed in "ED Hold" status until such time as a bed becomes available. Quality Measures Smoking Cessation Screened, tobacco user, Tobacco cess intervention Smoking Cessation Counseling The patient was questioned regarding their smoking habits, and I have determined , as the patient's treating physician, that there is a medical necessity in regards to the patient's medical condition to provide smoking cessation program education. The patient was advised to stop smoking and counseled for a period of greater than 3 minutes. The patient was instructed to follow up with a primary care physician for smoking cessation and given information regarding local smoking cessation programs in the area. The patient received detailed discharge instructions as to how to stop smoking. The patient expressed an understanding of the need to follow up and the plan for smoking cessation. at 2149 RPT #:[id number] END OF REPORT [facility] 2023-11-23 13:50:00 [facility] ([facility] Hospitalist Discharge Summary REPORT#:[id number] REPORT STATUS: Signed REPORT INITIALIZATION DATE:11/23/23 TIME: 1350 PATIENT: TANNER BENDER UNIT #: [id number] ROOM/BED: [place] [id number] : 84 AGE: 37 SEX: M ATTEND: Jean Paul Lynch MD ADM AUTHOR: Joceline Parker REPT SERVICE DT/TIME: 11/23/23 1350 * ALL edits or amendments must be made on the electronic/computer document * General Information Free Text General Notes Free Text General Notes: LEFT AMA Date of admission: Observation Start Date: Date of admission: 11/23/23 Discharge date: 11/23/23 Discharge diagnosis: ABDOMINAL PAIN NAUSEA/VOMITING Hospital course: see below Pt. condition on discharge: LEFT AMA Free Text DxA P Notes Free text DxA P notes: Mr. Bender is being admitted for severe abdominal recurrent vomiting deemed to be in the setting of recurrent pancreatitis. Plan 1. Abdominal pain and vomiting: -The patient reports that he has recurrent pancreatitis because of which she is having severe abdominal pain and vomiting. -However the CAT scan did not show any significant lesion. Pancreatic cyst or pseudocyst. , Will rule out any other cause of abdominal pain of note patient has reported C. difficile previously however he does not have any diarrhea at this point in time. -Continue with the as needed pain medicine, continue with the IV Zofran/ Phenergan for vomiting. DVT prophylaxis with SCD GI prophylaxis with PPI DISPO: PATIENT LEFT AMA. Objective VS/I O Last Documented: Result Date Time Pulse Ox 96 11/22 08 B/P 163/98 11/22 0859 B/P Mean 119 11/22 0859 O2 Delivery Room air 11/22 858 Temp 98.4 11/22 08 Pulse 56 11/22 0859 Resp 16 11/22 0859 24 hour I O ending at 0700: 11/21 1900 11/22 0700 Intake Total Output Total Balance Patient 58.182 kg Weight Weight Standing scale Measurement Method Free Text Obj Notes Free Text Obj Notes: LEFT AMA Discharge Instructions PCP PCP follow-up: PCP: Josse Provider Discharge to: AMA Additional Discharge Routines: None Quality: Discharge Current Medications Current medication review: I attest that the foregoing medication list in the medical record is true, accurate, and complete to the best of my knowledge. at 1451 at 1017 [facility] #:[id number] END OF REPORT [facility] 2023-11-23 08:08:00 [facility] ([facility]) Clinical Note REPORT#:[id number] REPORT STATUS: Signed REPORT INITIALIZATION DATE:11/23/23 TIME: 807 PATIENT: TANNER BENDER UNIT #: [id number] ROOM/BED: [facility] : 84 AGE: 37 SEX: M ATTEND: Jean Paul Lynch MD ADM AUTHOR: Joceline Parker REPT SERVICE DT/TIME: 11/23/23 0808 * ALL edits or amendments must be made on the electronic/computer document * Clinical Note Note: Patient request to leave AMA. Refused IV Potassium. Declined to advance to clear liquid diet and declined po potassium. at 1257 at 2133 RPT #:[id number] END OF REPORT [facility] 2023-11-23 06:14:00 [facility] ([facility] Hospitalist History Physical REPORT#:[id number] REPORT STATUS: Signed REPORT INITIALIZATION DATE:11/23/23 TIME: 613 PATIENT: TANNER BENDER UNIT #: [id number] ROOM/BED: [place] [address] : 84 AGE: 37 SEX: M ATTEND: Tan Zayas MD ADM AUTHOR: Tan Zayas MD REPT SERVICE DT/TIME: 11/23/23 0614 * ALL edits or amendments must be made on the electronic/computer document * History of Present Illness HPI Chief complaint: Abdominal pain and vomiting HPI: Mr. Espinoza is 37-year-old gentleman with history of recurrent pancreatitis/ chronic pain intact with an outside physician further assessment however his insurance is not having an issue therefore he continues to have abdominal pain and clinically has started nausea and severe. The patient has been vomiting for the past several days associated with severe did not decided to come to the emergency department. He has received Dilaudid for the abdominal pain however there is mild reduction in the pain severity. At the time of my evaluation the patient remained hemodynamically stable however he although it has improved with the initial manage History Past Medical Surgical Hx Patient History: 1. Intractable abdominal pain 2. Vomiting 3. Nausea and vomiting in adult patient 4. Pancreatitis 5. Colitis 6. C. difficile colitis Additional medical history: Anxiety Family History Family history: Denies: CAD < 40 yrs old. Additional family history: n/c Social History Alcohol use: Denies EtOH use Drug use: Denies recreational drugs Smoking status for patients 13 years old or older: Never Smoker Other social history: Primary family support Additional social history: family hx- unknown Medication/Allergy-Vaccine Hx Allergies: Coded Allergies: Penicillins (Severe, THROAT SWELLS UP 06/30/23) Review of Systems Free Text ROS Notes Free Text ROS Notes: 12 point review of systems other OBJECTIVE VS/I O: Vital Signs Date Temp Pulse Resp B/P B/P Mean Pulse Ox FiO2 11/21 36.9 64 18 163/98 119 99 Last Documented: Result Date Time Pulse Ox 99 11/21 2109 B/P 163/98 11/21 2109 B/P Mean 119 11/21 2109 O2 Delivery Room air 11/21 2109 Temp 36.9 11/21 2109 Pulse 64 11/21 2109 Resp 18 11/21 2109 24 hour I O ending at 0700: 11/22 0700 11/21 1900 Intake Total Output Total Balance Patient 58.182 kg Weight Weight Standing scale Measurement Method Patient Weight and BMI Weight (kg): 58.182 BMI: 17.4 Medications: Active Meds + DC'd Last 24 Hrs Morphine Sulfate (morphine SULFATE) 4 MG Q4H PRN PRN IV Ondansetron HCl (ondansetron HCL) 4 MG Q6H PRN PRN IV Iopamidol (ISOVUE-370) 0 .STK-MED ONE .ROUTE (DC) Haloperidol Lactate (HALDOL) 2 MG X1ED STA IM (DCr) Morphine Sulfate (morphine SULFATE) 4 MG X1ED STA IV (DCr) Morphine Sulfate (morphine SULFATE) 4 MG X1ED STA IV (DC) Ondansetron HCl (ondansetron HCL) 4 MG X1ED PRN PRN IV (DC) Sodium Chloride (SODIUM CHLORIDE 0.9%) 1,000 ML X1ED STA IV (DC) General appearance: alert, awake, oriented Head/Eyes: atraumatic, EOMI, normal fundi ENT: moist mucosal membranes, normal dentition Neck: full range of motion, normal thyroid, no JVD Cardiovascular: normal capillary refill, normal heart sounds, regular rate rhythm, no ectopy Respiratory: aerating well, clear to auscultation, symmetric expansion, no distress Abdomen: tenderness Neuro/BOBBIN DISKER: alert, oriented X 3 Psychiatry: normal affect Results Findings/Data: Laboratory Tests: 08/11 0015 Chemistry Sodium (136 - 145 mmol/L) 138 Potassium (3.5 - 5.1 mmol/L) 3.2 L Chloride (98 - 107 mmol/L) 104.0 Carbon Dioxide (21 - 32 mmol/L) 29.0 Anion Gap (10 - 20 mmol/L) 8.2 L BUN (7 - 18 mg/dL) 9 Creatinine (0.7 - 1.3 mg/dL) 1.00 Glomerular Filtr Rate (>=60 mL/min) > 60 BUN/Creatinine Ratio (10 - 20) 8.6 L Glucose (74 - 106 mg/dL) 94 Calcium (8.5 - 10.1 mg/dL) 8.7 Total Bilirubin (0.0 - 1.0 mg/dL) 0.70 Direct Bilirubin (0.0 - 0.20 mg/dL) 0.20 AST (15 - 37 IUnit/L) 23 ALT (12 - 78 IUnit/L) 19 Total Alk Phosphatase (45 - 117 IUnit/L) 70 Total Protein (6.4 - 8.2 gram/dL) 7.7 Albumin (3.4 - 5.0 g/dL) 4.2 Globulin (2.7 - 4.2 gram/dL) 3.5 Albumin/Globulin Ratio (0.75 - 1.50) 1.2 Lipase (12 - 57 U/L) 65 H Hematology WBC (4.5 - 12.5 K/mm3) 8.9 RBC (4.0 - 5.8 mill/mm3) 4.37 Hgb (13.0 - 17.5 gram/dL) 11.7 L Hct (42.0 - 52.0 %) 36.9 L MCV (80 - 98 fL) 84.4 MCH (27.0 - 33.0 picogram) 26.8 L MCHC (33.0 - 36.0 gram/dL) 31.7 L RDW (11.6 - 16.2 %) 15.5 Plt Count (150 - 450 K/mm3) 260 MPV (6.7 - 11.0 fL) 10.5 Other Body Source POC Nasal Influenza A (Negative) Negative POC Nasal Influenza B (Negative) Negative Serology SARS-CoV-2 Ag (Rapid) (NEGATIVE) NEGATIVE Toxicology Urine Opiates Screen (<300 ng/mL) POSITIVE Urine Methadone Screen (<300 ng/mL) NEGATIVE Urine Barbiturates (<200 ng/mL) NEGATIVE Ur Phencyclidine Scrn (<25 ng/mL) NEGATIVE Ur Amphetamines Screen (<1000 ng/mL) NEGATIVE U Benzodiazepines Scrn (<200 ng/mL) POSITIVE Urine Cocaine Screen (<300 ng/mL) NEGATIVE Urine Cannabinoids (<50 ng/mL) POSITIVE Urines Urine Color (YELLOW) Light-Yellow Urine Appearance (CLEAR) CLEAR Urine pH (5.0 - 8.0) 6.5 Ur Specific Charlotte (1.001 - 1.035) 1.018 Urine Protein (NEGATIVE mg/dL) NEGATIVE Urine Glucose (UA) (NEGATIVE mg/dL) NEGATIVE Urine Ketones (NEGATIVE mg/dL) NEGATIVE Urine Blood (NEGATIVE mg/dL) Negative Urine Nitrite (NEGATIVE) NEGATIVE Urine Bilirubin (NEGATIVE mg/dL) NEGATIVE Urine Urobilinogen (NEGATIVE mg/dL) Normal Ur Leukocyte Esterase (NEGATIVE Sachin/uL) NEGATIVE Urine RBC (0 - 5 #/HPF) 0-2 Urine WBC (0 - 5 per HPF) 0-5 Ur Epithelial Cells (FEW per HPF) None seen Urine Bacteria (NONE #/HPF) NONE SEEN Urine Mucus (FEW #/LPF) FEW Laboratory Tests 11/23/23 0015: [Embedded Image Not Available] Radiology data: Recent Impressions: CAT SCAN - CT ABD PELVIS W/CONT 11/224 Report Impression - Status: SIGNED Entered: 11/23/2023 0339 IMPRESSION: 1. No acute findings demonstrated in the abdomen and pelvis. No peripancreatic edema, fat stranding or pseudocyst. 2. Cholecystectomy. Impression By: [email or web address] - Tee Rashid M.D. Diagnosis, Assessment Plan Problem List/A P: 1. Vomiting 2. Abdominal pain 3. C. difficile colitis Free Text A P: Mr. Bender is being admitted for severe abdominal recurrent vomiting deemed to be in the setting of recurrent pancreatitis. Plan 1. Abdominal pain and vomiting: -The patient reports that he has recurrent pancreatitis because of which she is having severe abdominal pain and vomiting. -However the CAT scan did not show any significant lesion. Pancreatic cyst or pseudocyst. , Will rule out any other cause of abdominal pain of note patient has reported C. difficile previously however he does not have any diarrhea at this point in time. -Continue with the as needed pain medicine, continue with the IV Zofran/ Phenergan for vomiting. DVT prophylaxis with SCD GI prophylaxis with PPI at 0636 RPT #:[id number] END OF REPORT [facility] 2023-11-23 00:09:00 [id number] [facility] PATIENT NAME: TANNER BENDER ADMIT DATE: 11/23/23 ACCOUNT NO: [id number] ROOM NO: LAURA AGE: 37 REPORT TYPE: eEKG REPORT SEX: M DATE OF : [birth year] ADMITTING PHYSICIAN:Tan Zayas MD ATTENDING PHYSICIAN:Tan Zayas MD Order: [id number] Test Reason : Test Date/Time Stamp: FriNov 23 2023 00:09:45 Blood Pressure : / mmHG Vent. Rate : 059 BPM Atrial Rate : 059 BPM P-R Int : 110 ms QRS Dur : 100 ms QT Int : 404 ms P-R-T Axes : 007 081 052 degrees QTc Int : 399 ms Sinus bradycardia with short OK Moderate voltage criteria for LVH, may be normal variant ST elevation, probably due to early repolarization Borderline ECG Confirmed by DMITRI MACHADO MD ([id number]) on 11/23/2023 3:06:45 PM Referred By: Self Referred Confirmed by:DMITRI MACHADO MD at 1506 PATIENT NAME: TANNER BENDER [facility] 2023-11-22 21:48:00 [facility] ([facility]) EMERGENCY PROVIDER REPORT REPORT#:[id number] REPORT STATUS: Signed DATE:11/22/23 TIME: 2147 PATIENT: TANNER BENDER UNIT #: [id number] ROOM/BED: LAURA-5 AGE: 37 SEX: M PCP PHYS: Undefined Provider SERVICE AUTHOR: Tha Grant DO * ALL edits or amendments must be made on the electronic/computer document * HPI-Abd Pain M 40 and Over General Initial Greet Date/Time 11/22/232100 Presentation Chief Complaint Abdominal pain Sudden in Onset? Yes Onset Occurred Weeks ago (2) Symptom Duration Constant Progression since Onset Unchanged, Constant Caused by CHRONIC PANCREATITIS Exacerbated by Nothing Relieved by Nothing Free Text HPI Notes Free Text HPI Notes This is a 37-year-old male presents to the emergency room with severe abdominal pain and vomiting for the past 2 weeks. He has been followed by his primary care as an outpatient and has a history of acute pancreatitis its pretty much chronic at this point. 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 Love was made but he had not heard from his insurance as of yet. As result patient continues to have vomiting and now more recently he started having blood in his stools. He has had a cholecystectomy appendectomy in the past denies any alcohol abuse, denies any drugs. Patient reports that at some point in there he was tested last week positive for C. difficile. He has had that in the past as well. He has not been able to keep his p.o. Cipro and Flagyl down despite having Phenergan and Zofran suppositories. He is asking for Dilaudid and Ativan Risk-Abd Pain M 40 and Over )( Abdominal Aortic Aneurysm Risk factors reviewed Review of Systems ROS Statements All systems rev neg except as marked. Focused Review of Systems Constitutional Denies: Chills, Fever, Lethargy. Respiratory Denies: Cough, non-productive, Cough, productive, Shortness of breath. Cardiovascular Denies: Chest pain, Syncope. GI Reports: Abdominal pain, Diarrhea (7.8 STOOLS DAILY), Nausea, Vomiting. Male Denies: Flank pain, Testicular pain. Musculoskeletal Denies: Back pain, Extremity pain. Past Medical History - Adult Stated Complaint ABD PAIN DIARRHEA/ VOMITING Allergies Coded Allergies: Penicillins (Severe, THROAT SWELLS UP 06/30/23) Home Medications Active Scripts DICYCLOMINE (BENTYL) 20 MG PO QID DICYCLOMINE (BENTYL) 20 MG PO QID #30 TABS Prov: 09/03/23 Reported Medications ALPRAZolam (XANAX) 2 MG PO TID PRN ANXIETY HYDROmorphone (DILAUDID) 2 MG PO Q4H PRN PRN PAIN SCALE 7-10 AMYLASE/LIPASE/PROTEA 120,000/24,000/76,000 U (CREON 24) 24,000 UNITS PO TID MEALS ALBUTEROL (PROAIR DIGIHALER 90 MCG/ACT 0.65 GM) 2 PUFF INH RTQ6H Past Medical History: Reports: Asthma, Chronic pain, Pancreatitis (Chronic). Additional Medical History Anxiety Past Surgical History: Denies: Abdominal surgery. Family History: Denies: CAD < 40 yrs old. Additional Family History n/c Alcohol Use Denies EtOH use Drug Use Denies recreational drugs Smoking status for patients 13 years old or older: Never Smoker Other Social History Primary family support Additional Social History family hx- unknown Physical Exam Vital Signs Vital Signs First Documented: Result Date Time Pulse Ox 99 11/21 2109 B/P 163/98 11/21 2109 B/P Mean 119 11/21 2109 O2 Delivery Room air 11/21 2109 Temp 98.5 11/21 2109 Pulse 64 11/21 2109 Resp 18 11/21 2109 Last Documented: Result Date Time Pulse Ox 99 11/21 2109 B/P 163/98 11/21 2109 B/P Mean 119 11/21 2109 O2 Delivery Room air 11/21 2109 Temp 98.5 11/21 2109 Pulse 64 11/21 2109 Resp 18 11/21 2109 Review of Vital Signs Reviewed Focused PE General/Const General/Const Awake, Alert MS Head Head Normocephalic Eyes Eyes PERRL Ears/Nose/Throat Ears/Nose/Throat Airway patent, Mucous membranes moist, Pharynx NL Resp/Chest Respiratory/Chest Breath sounds NL, Breath sounds = bilat, No respiratory distress, No rales, No rhonchi, No wheezing Cardiovascular Cardiovascular Heart rate NL, Regular rhythm, Heart sounds NL, Peripheral circulation NL Abdomen/GI Abdomen/GI McBurney's non-tender, No guarding, No rebound, BS normoactive, No distention, No hernia, No palpable mass, No pulsatile mass Text/Dict Notes Pain on palpation along the left paracolic side MS Back Back Inspection NL, Non-tender, No CVA tenderness Skin Skin Color NL, Warm, Dry, Turgor NL Neurologic Neurologic Oriented X3, Speech NL, No motor deficits, No sensory deficits Interpretation Diagnostics Lab Results Interpretation Results Laboratory Tests 11/23/23 0015: [Embedded Image Not Available] Laboratory Tests: 08/11 0015 Chemistry Sodium (136 - 145 mmol/L) 138 Potassium (3.5 - 5.1 mmol/L) 3.2 L Chloride (98 - 107 mmol/L) 104.0 Carbon Dioxide (21 - 32 mmol/L) 29.0 Anion Gap (10 - 20 mmol/L) 8.2 L BUN (7 - 18 mg/dL) 9 Creatinine (0.7 - 1.3 mg/dL) 1.00 Glomerular Filtr Rate (>=60 mL/min) > 60 BUN/Creatinine Ratio (10 - 20) 8.6 L Glucose (74 - 106 mg/dL) 94 Calcium (8.5 - 10.1 mg/dL) 8.7 Total Bilirubin (0.0 - 1.0 mg/dL) 0.70 Direct Bilirubin (0.0 - 0.20 mg/dL) 0.20 AST (15 - 37 IUnit/L) 23 ALT (12 - 78 IUnit/L) 19 Total Alk Phosphatase (45 - 117 IUnit/L) 70 Total Protein (6.4 - 8.2 gram/dL) 7.7 Albumin (3.4 - 5.0 g/dL) 4.2 Globulin (2.7 - 4.2 gram/dL) 3.5 Albumin/Globulin Ratio (0.75 - 1.50) 1.2 Lipase (12 - 57 U/L) 65 H Hematology WBC (4.5 - 12.5 K/mm3) 8.9 RBC (4.0 - 5.8 mill/mm3) 4.37 Hgb (13.0 - 17.5 gram/dL) 11.7 L Hct (42.0 - 52.0 %) 36.9 L MCV (80 - 98 fL) 84.4 MCH (27.0 - 33.0 picogram) 26.8 L MCHC (33.0 - 36.0 gram/dL) 31.7 L RDW (11.6 - 16.2 %) 15.5 Plt Count (150 - 450 K/mm3) 260 MPV (6.7 - 11.0 fL) 10.5 Other Body Source POC Nasal Influenza A (Negative) Negative POC Nasal Influenza B (Negative) Negative Serology SARS-CoV-2 Ag (Rapid) (NEGATIVE) NEGATIVE Toxicology Urine Opiates Screen (<300 ng/mL) POSITIVE Urine Methadone Screen (<300 ng/mL) NEGATIVE Urine Barbiturates (<200 ng/mL) NEGATIVE Ur Phencyclidine Scrn (<25 ng/mL) NEGATIVE Ur Amphetamines Screen (<1000 ng/mL) NEGATIVE U Benzodiazepines Scrn (<200 ng/mL) POSITIVE Urine Cocaine Screen (<300 ng/mL) NEGATIVE Urine Cannabinoids (<50 ng/mL) POSITIVE Urines Urine Color (YELLOW) Light-Yellow Urine Appearance (CLEAR) CLEAR Urine pH (5.0 - 8.0) 6.5 Ur Specific [place] (1.001 - 1.035) 1.018 Urine Protein (NEGATIVE mg/dL) NEGATIVE Urine Glucose (UA) (NEGATIVE mg/dL) NEGATIVE Urine Ketones (NEGATIVE mg/dL) NEGATIVE Urine Blood (NEGATIVE mg/dL) Negative Urine Nitrite (NEGATIVE) NEGATIVE Urine Bilirubin (NEGATIVE mg/dL) NEGATIVE Urine Urobilinogen (NEGATIVE mg/dL) Normal Ur Leukocyte Esterase (NEGATIVE Sachin/uL) NEGATIVE Urine RBC (0 - 5 #/HPF) 0-2 Urine WBC (0 - 5 per HPF) 0-5 Ur Epithelial Cells (FEW per HPF) None seen Urine Bacteria (NONE #/HPF) NONE SEEN Urine Mucus (FEW #/LPF) FEW Microbiology: Date/Time Procedure - Status Source Growth 11/22 0556 Clostridioides difficile Toxin Assay - CAN STOOL Cancelled: @DC MORE THAN 24 HOURS. [id number] 11/24/23 0703 Recent Impressions: CAT SCAN - CT ABD PELVIS W/CONT 11/22 0314 Report Impression - Status: SIGNED Entered: 11/23/2023 0339 IMPRESSION: 1. No acute findings demonstrated in the abdomen and pelvis. No peripancreatic edema, fat stranding or pseudocyst. 2. Cholecystectomy. Impression By: [email or web address] Maria Del Carmen Rashid M.D. Lab Imaging Statement Laboratory radiographic studies reviewed and considered in the medical decision-making. Re-Evaluation MDM )( Re-Evaluation/Progress #1 Text/Dict Note Still not doing any better. Lab is unremarkable we will get a CT scan and give him admitted to the hospital. He has not had any vomiting here he is just asking for Dilaudid and Ativan for his chronic pancreatitis pain Time of Re-Eval 0204 )( Re-Eval Status Unchanged ED Course Medication(s) Ordered Medication(s) Ordered: Central Nervous System Agents Sig/José Miguel Start time Last Medication Dose Route Stop Time Status Admin Haloperidol Lactate 2 MG X1ED STA 11/22 0206 DCr IM 11/22 0207 Morphine Sulfate 4 MG X1ED STA 11/22 0206 DCr 11/22 IV 11/22 0207 0310 Morphine Sulfate 4 MG X1ED STA 11/21 2145 DC 11/22 IV 11/21 2145 0026 Diagnostic Agents Sig/José Miguel Start time Last Medication Dose Route Stop Time Status Admin Iopamidol 0 .STK-MED ONE 11/22 0327 DC 11/22 .ROUTE 0329 Electrolytic, Caloric, And Sneha Sig/José Miguel Start time Last Medication Dose Route Stop Time Status Admin Sodium Chloride 1,000 ML X1ED STA 11/21 2101 DC 11/22 IV 11/21 2199 0028 Gastrointestinal Drugs Sig/José Miguel Start time Last Medication Dose Route Stop Time Status Admin Ondansetron HCl 4 MG X1ED PRN PRN 11/21 2114 DC 11/22 IV 0026 Differential Diagnosis )( Differential Diagnosis Abdominal aortic aneurysm, Abscess, Acute abdominal pain, Acute coronary syndrome, Angina/TN, Aortic dissection, Appendicitis, Bladder outlet obstruct, Bowel obstruction, C. diff colitis, Cellulitis, Cholangitis, Cholecystitis, Cholelithiasis, Constipation, Contusion abdominal wall, Diabetic ketoacidosis, Diarrhea, Diverticular disease, Dyspepsia, Esophageal rupture, Esophagitis, Foreign body, Gastritis, Gastroenteritis, GERD, Glaucoma, Gun shot wound abdomen, Hepatitis, Hernia, Hydrocele, Infectious mononucleosis, Inflam bowel disease, Inguinal hernia, Ischemic bowel, Malignancy , Mesenteric adenitis, Myocardial infarction, Pancreatitis, Peptic ulcer disease , Peritonitis, Porphyria, Postop complication, Pylonephritis, Sepsis?, Septic shock?, Severe sepsis?, Sickle cell crisis, Stab wound abdomen, Torsion appendix teste R, Torsion appendix teste L, Torsion testicle R, Torsion testicle L, Trauma abdominal, Unstable angina, Urinary obstruction, Urinary retention, Urinary tract infection, Urolithiasis, Volvulus Patient Discharge Departure Vital Signs/Condition Vital Signs First Documented: Result Date Time Pulse Ox 99 11/21 2109 B/P 163/98 11/21 2109 B/P Mean 119 11/21 2109 O2 Delivery Room air 11/21 2109 Temp 98.5 11/21 2109 Pulse 64 11/21 2109 Resp 11/21 Last Documented: Result Date Time Pulse Ox 99 11/21 2109 B/P 163/98 11/21 2109 B/P Mean 119 11/21 2109 O2 Delivery Room air 11/21 2109 Temp 98.5 11/21 2109 Pulse 64 11/21 2109 Resp 18 11/21 2109 All vital signs available at the time of this entry have been reviewed. Condition Guarded Clinical Impression Clinical Impression Primary Impression: Chronic abdominal pain Secondary Impressions: Chronic pancreatitis, H/O Clostridium difficile infection , Intractable vomiting with nausea Disposition Decision Hospitalize Hosp Physician Name Tan Zayas MD [facility] Physician Hospitalist Request Time 05 Request Date 11/23/23 )( Accepts Hospitalization Yes )( Accepted Time 551 )( Accepted Date 11/23/23 Call Information will see patient, agrees with eval, agrees with plan at 1057 RPT #:[id number] END OF REPORT [facility] 2023-11-01 23:47:00 [facility] ([facility]) EMERGENCY PROVIDER REPORT REPORT#:[id number] REPORT STATUS: Signed DATE:11/01/23 TIME: 2346 PATIENT: TANNER BENDER UNIT #: [id number] ROOM/BED: AGE: 37 SEX: M PCP PHYS: Fei Henderson III, MD SERVICE AUTHOR: Viktoriya Sawyer MD * ALL edits or amendments must be made on the electronic/computer document * HPI-Abd Pain M Under 40 General Initial Greet Date/Time 11/01/23 2305 PCP [facility] Presentation Chief Complaint Abdominal pain, Nausea, Vomiting moderate Hx Obtained From Patient, EMS Free Text HPI Notes Free Text HPI Notes Patient is a 37-year-old male with PMH asthma, anxiety and chronic pancreatitis who presents with LUQ abdominal pain that has been progressively worsening for 1 week and is now radiating to his low back. Patient reports nausea and vomiting. No fever but reports intermittent diaphoresis. Patient states he is concerned it is his chronic pancreatitis acting up. Patient took 8 mg of Zofran just prior to EMS arrival. Patient reports he still feels nauseated. Prior records reviewed: Patient was seen in this facility at 0045 this morning complaining of LUQ abdominal pain and dark red hematochezia. Labs were unremarkable. Vitals unremarkable. Patient received more friend, Zofran and pantoprazole and was discharged home at 0210. Patient returned to this facility today at 1241 with complaint of LUQ abdominal pain, nausea and vomiting. Patient had UA which was unremarkable, and a repeat lipase which came back at 43. Patient received morphine, Reglan and Benadryl and apparently left AMA without discussing with provider. Patient with multiple similar ER visits for same. Patient was admitted and [place] 10/20/2023 and discharged 10/23/2023. Documentation of drug-seeking behavior and history of narcotic bowel syndrome. Patient had an EGD and colonoscopy during the admission, which were largely unremarkable. EGD showed GERD. Risk-Abd Pain M Under 40 )( Torsion Risk factors reviewed Review of Systems ROS Statements All systems rev neg except as marked. Free Text ROS Notes Free Text ROS Notes Constitutional: No fever or chills Respiratory: No cough or shortness of breath Cardiovascular: No chest pain or palpitations Neurologic: No headache, focal deficits or weakness Chronic conditions/symptoms are considered negative if unchanged from baseline Additional positives and negatives may be present in the HPI Past Medical History - Adult Stated Complaint abdominal pain Allergies Coded Allergies: Penicillins (Severe, THROAT SWELLS UP 06/30/23) Home Medications Active Scripts DICYCLOMINE (BENTYL) 20 MG PO QID DICYCLOMINE (BENTYL) 20 MG PO QID #30 TABS Prov: 09/03/23 Reported Medications ALPRAZolam (XANAX) 2 MG PO TID PRN ANXIETY HYDROmorphone (DILAUDID) 2 MG PO Q4H PRN PRN PAIN SCALE 7-10 AMYLASE/LIPASE/PROTEA 120,000/24,000/76,000 U (CREON 24) 24,000 UNITS PO TID MEALS ALBUTEROL (PROAIR DIGIHALER 90 MCG/ACT 0.65 GM) 2 PUFF INH RTQ6H Past Medical History: Reports: Asthma, Chronic pain, Pancreatitis (Chronic). Additional Medical History Anxiety Past Surgical History: Denies: Abdominal surgery. Family History: Denies: CAD < 40 yrs old. Additional Family History n/c Alcohol Use Denies EtOH use Drug Use Denies recreational drugs Smoking status for patients 13 years old or older: Smoker,current status UNK Other Social History Primary family support Additional Social History family hx- unknown Physical Exam Vital Signs Vital Signs First Documented: Result Date Time Pulse Ox 100 10/31 2255 B/P 168/90 10/31 2255 B/P Mean 116 10/315 O2 Delivery Room air 10/31 2254 Temp 36.6 10/315 Pulse 81 10/31 2255 Resp 15 10/315 Last Documented: Result Date Time Pulse Ox 100 10/31 2255 B/P 168/90 10/31 2255 B/P Mean 116 10/31 2255 O2 Delivery Room air 10/31 225 Temp 36.6 10/31 2255 Pulse 81 10/31 2255 Resp 15 10/31 2254 Review of Vital Signs Reviewed Focused PE General/Const Text/Dict Notes Hyperverbal. Appears uncomfortable. Abdomen/GI Tenderness/Guarding/Rebound Tender diffuse. Free Text PE Notes Free Text PE Notes GEN: Awake, alert. No acute distress. Well-appearing. Cooperative. HEAD: Atraumatic. Normocephalic. EYES: PERRL. EOMI. No nystagmus. No photophobia. ENT: Airway patent. MMM. Normal pharynx. NECK: Atraumatic. No meningismus. FROM. Nontender. RESP/CHEST: Breath sounds normal. No respiratory distress. No chest tenderness. CV: RRR. Heart sounds normal. Normal cap refill. ABD/GI: Soft. BS normoactive. No palpable mass. SKIN: WDI. Normal color. No rash. NEURO: Oriented x3. Clear speech. CN II - XII grossly intact. BACK: Atraumatic. Nontender. PSYCH: Mood and affect normal. Interpretation Diagnostics Lab Results Interpretation Results Laboratory Tests 11/02/23 001: [Embedded Image Not Available] Laboratory Tests: 11/02 11 Chemistry Sodium (136 - 145 mmol/L) 139 Potassium (3.5 - 5.1 mmol/L) 4.4 Chloride (98 - 107 mmol/L) 105.0 Carbon Dioxide (21 - 32 mmol/L) 28.0 Anion Gap (10 - 20 mmol/L) 10.4 BUN (7 - 18 mg/dL) 7 Creatinine (0.7 - 1.3 mg/dL) 1.00 Glomerular Filtr Rate (>=60 mL/min) > 60 BUN/Creatinine Ratio (10 - 20) 6.8 L Glucose (74 - 106 mg/dL) 78 Calcium (8.5 - 10.1 mg/dL) 8.6 Total Bilirubin (0.0 - 1.0 mg/dL) 0.50 Direct Bilirubin (0.0 - 0.20 mg/dL) 0.20 AST (15 - 37 IUnit/L) 30 ALT (12 - 78 IUnit/L) 21 Total Alk Phosphatase (45 - 117 IUnit/L) 68 Total Protein (6.4 - 8.2 gram/dL) 8.1 Albumin (3.4 - 5.0 g/dL) 4.2 Globulin (2.7 - 4.2 gram/dL) 3.9 Albumin/Globulin Ratio (0.75 - 1.50) 1.1 Lipase (12 - 57 U/L) 62 H Hematology WBC (4.5 - 12.5 K/mm3) 5.8 RBC (4.0 - 5.8 mill/mm3) 4.18 Hgb (13.0 - 17.5 gram/dL) 11.2 L Hct (42.0 - 52.0 %) 36.0 L MCV (80 - 98 fL) 86.1 MCH (27.0 - 33.0 picogram) 26.8 L MCHC (33.0 - 36.0 gram/dL) 31.1 L RDW (11.6 - 16.2 %) 14.9 Plt Count (150 - 450 K/mm3) 527 H MPV (6.7 - 11.0 fL) 9.8 Recent Impressions: RADIOLOGY - XR CHEST 1 V 11/01 2319 Report Impression - Status: SIGNED Entered: 11/01/2023 1255 IMPRESSION: No radiographic evidence of acute cardiopulmonary process. Impression By: Marbin Cook MD Point of Care Testing Pulse Oximetry Pulse Ox % 100 On: Room air Interpretation Interpreted by me, Pulse oximetry normal Re-Evaluation MDM )( Re-Evaluation/Progress #1 Text/Dict Note Notified by nurse that patient has chosen to leave AGAINST MEDICAL ADVICE at this time. I did not have an opportunity to speak with patient prior to him leaving the building. Time of Re-Eval 0050 ED Course Medication(s) Ordered Medication(s) Ordered: Antihistamine Drugs Sig/José Miguel Start time Last Medication Dose Route Stop Time Status Admin Diphenhydramine HCl 12.5 MG X1ED STA 10/31 2324 DC IV 10/31 2325 Electrolytic, Caloric, And Sneha Sig/José Miguel Start time Last Medication Dose Route Stop Time Status Admin Sodium Chloride 1,000 ML X1ED STA 10/31 2305 DC IV 11/01 0004 Gastrointestinal Drugs Sig/José Miguel Start time Last Medication Dose Route Stop Time Status Admin Metoclopramide HCl 10 MG X1ED STA 10/31 2324 DC IV 10/31 2325 Patient Discharge Departure Vital Signs/Condition Vital Signs First Documented: Result Date Time Pulse Ox 100 10/31 2255 B/P 168/90 10/31 2255 B/P Mean 116 10/31 2255 O2 Delivery Room air 10/31 2255 Temp 36.6 10/31 2255 Pulse 81 10/31 2255 Resp 15 10/31 2255 Last Documented: Result Date Time Pulse Ox 100 10/31 2255 B/P 168/90 10/31 2255 B/P Mean 116 10/31 2255 O2 Delivery Room air 10/31 2255 Temp 36.6 10/31 2255 Pulse 81 10/31 2255 Resp 15 10/31 2255 All vital signs available at the time of this entry have been reviewed. Clinical Impression Clinical Impression Primary Impression: Abdominal pain Secondary Impressions: Nausea and vomiting Disposition Decision Other )( Time 0050 )( Date 11/02/23 Against Medical Advice Yes at 2051 RPT #:[id number] END OF REPORT [facility] 2023-11-01 13:17:00 [facility] ([facility]) EMERGENCY PROVIDER REPORT REPORT#:[id number] REPORT STATUS: Signed DATE:11/01/23 TIME: 131 PATIENT: TANNER BENDER UNIT #: [id number] ROOM/BED: AGE: 37 SEX: M PCP PHYS: Fei Henderson III, MD SERVICE AUTHOR: Amrita Diehl [employer] * ALL edits or amendments must be made on the electronic/computer document * Amrita Diehl 11/01/23 1317: HPI-Abd Pain M Under 40 Free Text HPI Notes Free Text HPI Notes 29-year-old male with a past medical history of anxiety, asthma and chronic pancreatitis presents to the ER for evaluation left upper abdominal pain, worse over the last 3 days. The pain is similar in characteristic to past pancreatitis flares. Associated symptoms include nausea and vomiting. Denies other associated symptoms including diaphoresis, chest pain, shortness of breath , dizziness, palpitations, syncope. Chart review shows patient was seen in this ER at 2 AM today for the same signs and symptoms and discharged home after lab work with a diagnosis of chronic pancreatitis. Lipase at that visit was 105. 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 Patient states he has an appointment scheduled with GI, but not until December 03. General Confirmed Patient Yes Patient Type New patient Initial Greet Date/Time 11/01/23 1241 Presentation Chief Complaint Abdominal pain Hx Obtained From Patient, Prior medical records Sudden in Onset? No Pain/Sev: Current Severe Review of Systems Basic Review of Systems Basic ROS EYES: No redness, ENT: No sore throat, HEM: No bleeding/bruising, SKIN : No rash, NEURO: No change MS, NEURO: No focal deficit, PSYCH: NL thought content Focused Review of Systems Constitutional Denies: Chills, Fever, Lethargy. Respiratory Denies: Cough, non-productive, Cough, productive, Shortness of breath. Cardiovascular Denies: Chest pain, Syncope. GI Reports: Abdominal pain, Nausea, Vomiting. Denies: Bloody/tarry stool, Constipation, Diarrhea. Male Denies: Flank pain, Testicular pain. Musculoskeletal Denies: Back pain, Extremity pain. Past Medical History - Adult Stated Complaint ABD PAIN, SEEN HERE YESTERDAY FOR SAME S/S Allergies Coded Allergies: Penicillins (Severe, THROAT SWELLS UP 06/30/23) Home Medications Active Scripts DICYCLOMINE (BENTYL) 20 MG PO QID DICYCLOMINE (BENTYL) 20 MG PO QID #30 TABS Prov: 09/03/23 Reported Medications ALPRAZolam (XANAX) 2 MG PO TID PRN ANXIETY HYDROmorphone (DILAUDID) 2 MG PO Q4H PRN PRN PAIN SCALE 7-10 AMYLASE/LIPASE/PROTEA 120,000/24,000/76,000 U (CREON 24) 24,000 UNITS PO TID MEALS ALBUTEROL (PROAIR DIGIHALER 90 MCG/ACT 0.65 GM) 2 PUFF INH RTQ6H Review of Nursing Notes Triage notes reviewed Past Medical History: Reports: Asthma, Pancreatitis (Chronic). Additional Medical History Anxiety Past Surgical History: Denies: Abdominal surgery. Family History: Denies: CAD < 40 yrs old. Additional Family History n/c Alcohol Use Denies EtOH use Drug Use Denies recreational drugs Smoking status for patients 13 years old or older: Never Smoker Other Social History Primary family support Additional Social History family hx- unknown Ambulatory Status Independent Physical Exam Vital Signs Vital Signs First Documented: Result Date Time Pulse Ox 96 10/31 1240 B/P 153/95 10/31 1240 B/P Mean 114 10/31 1240 O2 Delivery Room air 10/31 1240 Temp 36.9 10/31 1240 Pulse 65 10/31 1240 Resp 17 10/31 1240 Last Documented: Result Date Time Pulse Ox 96 10/31 1240 B/P 153/95 10/31 1240 B/P Mean 114 10/31 1240 O2 Delivery Room air 10/31 1240 Temp 36.9 10/31 1240 Pulse 65 10/31 1240 Resp 17 10/31 1240 Review of Vital Signs Reviewed Focused PE General/Const General/Const Awake, Alert, Well appearing MS Head Head Normocephalic Eyes Eyes PERRL Ears/Nose/Throat Ears/Nose/Throat Airway patent, Mucous membranes moist, Pharynx NL Resp/Chest Respiratory/Chest Breath sounds NL, Breath sounds = bilat, No respiratory distress, No rales, No rhonchi, No wheezing Cardiovascular Cardiovascular Heart rate NL, Regular rhythm, Heart sounds NL, Peripheral circulation NL Abdomen/GI Abdomen/GI Soft, Non-tender, McBurney's non-tender, No guarding, No rebound, BS normoactive, No distention, No hernia, No palpable mass MS Back Back Inspection NL, Non-tender, No CVA tenderness Skin Skin Color NL, Warm, Dry, Turgor NL Neurologic Neurologic Oriented X3, Speech NL, No motor deficits, No sensory deficits Interpretation Diagnostics Lab Results Interpretation Results Laboratory Tests: 10/31 1253 Chemistry Lipase (12 - 57 U/L) 43 Urines Urine Color (YELLOW) Light-Yellow Urine Appearance (CLEAR) CLEAR Urine pH (5.0 - 8.0) 6.5 Ur Specific Charlotte (1.001 - 1.035) 1.018 Urine Protein (NEGATIVE mg/dL) NEGATIVE Urine Glucose (UA) (NEGATIVE mg/dL) NEGATIVE Urine Ketones (NEGATIVE mg/dL) NEGATIVE Urine Blood (NEGATIVE mg/dL) Negative Urine Nitrite (NEGATIVE) NEGATIVE Urine Bilirubin (NEGATIVE mg/dL) NEGATIVE Urine Urobilinogen (NEGATIVE mg/dL) Normal Ur Leukocyte Esterase (NEGATIVE Sachin/uL) NEGATIVE Urine RBC (0 - 5 #/HPF) 0-2 Urine WBC (0 - 5 per HPF) 0-5 Ur Epithelial Cells (FEW per HPF) FEW Urine Bacteria (NONE #/HPF) NONE SEEN Urine Mucus (FEW #/LPF) FEW Lab Statement Laboratory studies reviewed and considered in the medical decision-making. Point of Care Testing Pulse Oximetry Pulse Ox % 96 On: Room air Interpretation Interpreted by me, Pulse oximetry normal Re-Evaluation MDM Free Text MDM Notes Additional Text 37-year-old male with a past medical history significant for chronic pancreatitis presents to the ER for evaluation of left upper quadrant abdominal pain worse over the last 3 days, similar in character to past pancreatitis flares. Associated symptoms include nausea and vomiting. Patient is followed by GI and pain management. His next GI appointment scheduled for December 03. Patient was last seen seen in this ER at 2 AM today and discharged home with a diagnosis of chronic pancreatitis. Labs from that visit reviewed, show elevated lipase 105. Patient was treated in the ED with IV morphine, Zofran and Pantoprazole. Patient states he returned as his pain and nausea continue. Chart review shows multiple ER visits for the same. Discussed HPI, physical exam and chart review with the ER attending physician Dr. Hammond. Given the last labs are less than 24 hours he advises repeat lipase only to evaluate for acute versus chronic pancreatitis. Discussed labs with patient. Discussed his lipase has improved since his previous visit and is currently normal. His pain has improved with administration of IV morphine. Abdomen is benign on reeval. He is still continuing to experiencing nausea. Discussed trying IV Reglan and Benadryl. Patient in agreement with plan. Notified by nursing that patient left AMA. There was no opportunity to discuss the patient's decision to leave, provide medical advice or discuss alternatives to leaving. )( Re-Evaluation/Progress #1 Text/Dict Note His abdominal pain is improved. Patient reports he still feels nauseated, no episodes of vomiting. We discussed trial of Reglan and Benadryl. Patient in agreement with plan. Time of Re-Eval 1448 )( Re-Eval Status Unchanged Re-Eval Abdomen Soft, Non-tender, No guarding, No rebound, BS normoactive, McBurney's non-tender, No distention ED Course Medication(s) Ordered Medication(s) Ordered: Antihistamine Drugs Sig/José Miguel Start time Last Medication Dose Route Stop Time Status Admin Diphenhydramine HCl 25 MG X1ED STA 10/31 1446 DC 07/20 IV 07 1447 1454 Central Nervous System Agents Sig/José Miguel Start time Last Medication Dose Route Stop Time Status Admin Morphine Sulfate 4 MG X1ED STA 10/31 1315 DC 07/ IV 10/31 1316 1341 Electrolytic, Caloric, And Sneha Sig/José Miguel Start time Last Medication Dose Route Stop Time Status Admin Sodium Chloride 1,000 ML X1ED STA 10/31 1314 DC / IV 10/31 1413 1341 Gastrointestinal Drugs Sig/José Miguel Start time Last Medication Dose Route Stop Time Status Admin Metoclopramide HCl 10 MG X1ED STA 10/31 1446 DC 07/20 IV 07/ 1447 1454 Ondansetron HCl 4 MG X1ED STA 10/31 1315 DC 07/ IV / 1316 1342 Differential Diagnosis )( Differential Diagnosis Acute abdominal pain, Gastritis, GERD, Pancreatitis, Urinary tract infection Patient Discharge Departure Vital Signs/Condition Vital Signs First Documented: Result Date Time Pulse Ox 96 10/31 1240 B/P 153/95 10/31 1240 B/P Mean 114 / 1240 O2 Delivery Room air 10/31 1240 Temp 36.9 07/20 1240 Pulse 65 07/20 1240 Resp 17 10/31 1240 Last Documented: Result Date Time Pulse Ox 96 10/31 1240 B/P 153/95 / 1240 B/P Mean 114 /20 1240 O2 Delivery Room air 10/31 1240 Temp 36.9 07/20 1240 Pulse 65 07/20 1240 Resp 17 10/31 1240 All vital signs available at the time of this entry have been reviewed. Clinical Impression Clinical Impression Primary Impression: Chronic pancreatitis Time of Impression 1513 Disposition Decision Other )( Time 1513 )( Date 11/01/23 Against Medical Advice Yes Gt [place] 11/02/23 1015: Patient Discharge Departure Supervising Physician Note MidLv Saw Pt Alone I have reviewed the PA/RUBBER GOODS INSPECTOR TESTER's note and plan of care. I was available for consultation as needed at all times during the patient's visit in the emergency department. I agree with the clinical impression, plan and disposition. at 1550 at 1021 RPT #:[id number] END OF REPORT [facility] 2023-11-01 02:10:00 [facility] ([facility]) EMERGENCY PROVIDER REPORT REPORT#:[id number] REPORT STATUS: Signed DATE:11/01/23 TIME: 0210 PATIENT: TANNER BENDER UNIT #: [id number] ROOM/BED: AGE: 37 SEX: M PCP PHYS: No Primary or Family Physician SERVICE AUTHOR: Michele Rowe MD * ALL edits or amendments must be made on the electronic/computer document * HPI-Abd Pain M 40 and Over Free Text HPI Notes Free Text HPI Notes pt presents c/o abd pain. Epigastric. Has hx of chronic pancreatitis. Has recent hospital visits for similar. Feels like previous episodes. General Initial Greet Date/Time 11/01/23 0045 Presentation Chief Complaint Abdominal pain Sudden in Onset? No Review of Systems Focused Review of Systems Constitutional Denies: Chills, Fever, Lethargy. Respiratory Denies: Cough, non-productive, Cough, productive, Shortness of breath. Cardiovascular Denies: Chest pain, Syncope. GI Reports: Abdominal pain, Bloody/tarry stool. Male Denies: Flank pain, Testicular pain. Musculoskeletal Denies: Back pain, Extremity pain. Past Medical History - Adult Stated Complaint LEFT UPPER QUADRANT PAIN, POOPING BLOOD DARK RED Allergies Coded Allergies: Penicillins (Severe, THROAT SWELLS UP 06/30/23) Home Medications Active Scripts DICYCLOMINE (BENTYL) 20 MG PO QID DICYCLOMINE (BENTYL) 20 MG PO QID #30 TABS Prov: 09/03/23 Reported Medications ALPRAZolam (XANAX) 2 MG PO TID PRN ANXIETY HYDROmorphone (DILAUDID) 2 MG PO Q4H PRN PRN PAIN SCALE 7-10 AMYLASE/LIPASE/PROTEA 120,000/24,000/76,000 U (CREON 24) 24,000 UNITS PO TID MEALS ALBUTEROL (PROAIR DIGIHALER 90 MCG/ACT 0.65 GM) 2 PUFF INH RTQ6H Past Medical History: Reports: Asthma, Pancreatitis. Additional Medical History Pancreatitis Past Surgical History: Denies: Abdominal surgery. Family History: Denies: CAD < 40 yrs old. Additional Family History n/c Alcohol Use Denies EtOH use Drug Use Denies recreational drugs Smoking status for patients 13 years old or older: Smoker,current status UNK Other Social History Primary family support Additional Social History family hx- unknown Physical Exam Vital Signs Vital Signs First Documented: Result Date Time Pulse Ox 100 10/31 0040 B/P 148/99 10/31 0040 B/P Mean 115 10/31 0040 O2 Delivery Room air 10/31 0040 Temp 36.6 10/31 0040 Pulse 69 10/31 0040 Resp 15 10/31 0040 Last Documented: Result Date Time Pulse Ox 99 10/31 0409 B/P 138/87 10/31 0409 B/P Mean 104 10/31 0409 Temp 36.5 10/31 0409 Pulse 72 10/31 0409 Resp 16 10/31 0409 O2 Delivery Room air 10/31 0040 Review of Vital Signs Reviewed Focused PE General/Const General/Const Awake, Alert MS Head Head Normocephalic Eyes Eyes PERRL Ears/Nose/Throat Ears/Nose/Throat Airway patent, Mucous membranes moist, Pharynx NL Resp/Chest Respiratory/Chest Breath sounds NL, Breath sounds = bilat, No respiratory distress, No rales, No rhonchi, No wheezing Cardiovascular Cardiovascular Heart rate NL, Regular rhythm, Heart sounds NL, Peripheral circulation NL Abdomen/GI Abdomen/GI Soft, Non-tender, McBurney's non-tender, No guarding, No rebound, BS normoactive, No distention, No hernia, No palpable mass, No pulsatile mass MS Back Back Inspection NL, Non-tender, No CVA tenderness Skin Skin Color NL, Warm, Dry, Turgor NL Neurologic Neurologic Oriented X3, Speech NL, No motor deficits, No sensory deficits Interpretation Diagnostics Lab Results Interpretation Results Laboratory Tests 11/01/23111: [Embedded Image Not Available] Laboratory Tests: 11/01 111 Chemistry Sodium (136 - 145 mmol/L) 139 Potassium (3.5 - 5.1 mmol/L) 3.5 Chloride (98 - 107 mmol/L) 105.0 Carbon Dioxide (21 - 32 mmol/L) 30.0 Anion Gap (10 - 20 mmol/L) 7.5 L BUN (7 - 18 mg/dL) 6 L Creatinine (0.7 - 1.3 mg/dL) 1.00 Glomerular Filtr Rate (>=60 mL/min) > 60 BUN/Creatinine Ratio (10 - 20) 6.2 L Glucose (74 - 106 mg/dL) 93 Calcium (8.5 - 10.1 mg/dL) 8.3 L Total Bilirubin (0.0 - 1.0 mg/dL) 0.50 Direct Bilirubin (0.0 - 0.20 mg/dL) 0.20 AST (15 - 37 IUnit/L) 18 ALT (12 - 78 IUnit/L) 15 Total Alk Phosphatase (45 - 117 IUnit/L) 57 Total Protein (6.4 - 8.2 gram/dL) 7.3 Albumin (3.4 - 5.0 g/dL) 3.7 Globulin (2.7 - 4.2 gram/dL) 3.6 Albumin/Globulin Ratio (0.75 - 1.50) 1.0 Lipase (12 - 57 U/L) 105 H Coagulation INR (0.8 - 1.2) 1.1 PT Patient/Control Mix (10.0 - 14.0 seconds) 11.3 Hematology WBC (4.5 - 12.5 K/mm3) 7.4 RBC (4.0 - 5.8 mill/mm3) 4.00 Hgb (13.0 - 17.5 gram/dL) 11.0 L Hct (42.0 - 52.0 %) 34.8 L MCV (80 - 98 fL) 87.0 MCH (27.0 - 33.0 picogram) 27.5 MCHC (33.0 - 36.0 gram/dL) 31.6 L RDW (11.6 - 16.2 %) 14.8 Plt Count (150 - 450 K/mm3) 457 H MPV (6.7 - 11.0 fL) 9.6 Lab Statement Laboratory studies reviewed and considered in the medical decision-making. Re-Evaluation MDM )( Re-Evaluation/Progress #1 )( Re-Eval Status Unchanged Abd Pain MDM Note M > 40 The patient is resting comfortably and feels better, is alert and in no distress. The repeat examination is unremarkable and benign; in particular, there is no discomfort at McBurney's point and there is no pulsatile mass. The history, exam, diagnostic testing, and current condition do not suggest acute appendicitis, bowel obstruction, acute cholecystitis, bowel perforation, major gastrointestinal bleeding, severe diverticulitis, abdominal aortic aneurysm, mesenteric ischemia, volvulus, sepsis, or other significant pathology to warrant further testing, continued ED treatment, admission, or surgical evaluation at this point. The vital signs have been stable. The patient does not have uncontrollable pain, intractable vomiting, or other significant symptoms. The patient's condition is stable and appropriate for discharge from the emergency department. The patient will pursue further outpatient evaluation with the primary care physician or other designated or consulting physician as indicated in the discharge instructions. ED Course Medication(s) Ordered Medication(s) Ordered: Central Nervous System Agents Sig/José Miguel Start time Last Medication Dose Route Stop Time Status Admin Morphine Sulfate 4 MG X1ED STA 10/31 0048 DC 10/31 IV 10/31 0049 0121 Gastrointestinal Drugs Sig/José Miguel Start time Last Medication Dose Route Stop Time Status Admin Ondansetron HCl 4 MG X1ED STA 10/31 0048 DC 10/31 IV 10/31 0049 0120 Pantoprazole Sodium 80 MG X1ED STA 10/31 0045 AC 10/31 Sodium Chloride 100 ML IV 10/31 1044 0125 Differential Diagnosis )( Differential Diagnosis Abdominal aortic aneurysm, Abscess, Acute abdominal pain, Acute coronary syndrome, Angina/TN, Aortic dissection, Appendicitis, Bladder outlet obstruct, Bowel obstruction, C. diff colitis, Cellulitis, Cholangitis, Cholecystitis, Cholelithiasis, Constipation, Contusion abdominal wall, Diabetic ketoacidosis, Diarrhea, Diverticular disease, Dyspepsia, Esophageal rupture, Esophagitis, Foreign body, Gastritis, Gastroenteritis, GERD, Glaucoma, Gun shot wound abdomen, Hepatitis, Hernia, Hydrocele, Infectious mononucleosis, Inflam bowel disease, Inguinal hernia, Ischemic bowel, Malignancy , Mesenteric adenitis, Myocardial infarction, Pancreatitis, Peptic ulcer disease , Peritonitis, Porphyria, Postop complication, Pylonephritis, Sepsis?, Septic shock?, Severe sepsis?, Sickle cell crisis, Stab wound abdomen, Torsion appendix teste R, Torsion appendix teste L, Torsion testicle R, Torsion testicle L, Trauma abdominal, Unstable angina, Urinary obstruction, Urinary retention, Urinary tract infection, Urolithiasis, Volvulus Patient Discharge Departure Vital Signs/Condition Vital Signs First Documented: Result Date Time Pulse Ox 100 10/31 0040 B/P 148/99 10/31 0040 B/P Mean 115 10/31 0040 O2 Delivery Room air 10/31 0040 Temp 36.6 10/31 0040 Pulse 69 10/31 0040 Resp 15 10/31 0040 Last Documented: Result Date Time Pulse Ox 99 10/31 0409 B/P 138/87 10/31 0409 B/P Mean 104 10/31 0409 Temp 36.5 10/31 0409 Pulse 72 10/31 0409 Resp 16 10/31 0409 O2 Delivery Room air 10/31 0040 All vital signs available at the time of this entry have been reviewed. Clinical Impression Clinical Impression Primary Impression: Chronic pancreatitis Disposition Decision Discharge )( Discharged to Home Yes )( Time 0210 )( Date 11/01/23 Discharge/Care Plan Patient Instructions ED Pancreatitis Additional Instructions Follow-up with your GI and production painter at 0459 RPT #:[id number] END OF REPORT [facility] 2023-10-24 10:37:00 [facility] ([facility]) Pain Management Progress Note REPORT#:[id number] REPORT STATUS: Signed REPORT INITIALIZATION DATE:10/24/23 TIME: 1037 PATIENT: TANNER BENDER UNIT #: [id number] ROOM/BED: [place] [address] : 84 AGE: 37 SEX: M ATTEND: Aretha Diallo MD ADM AUTHOR: Loi Cerda RUBBER GOODS INSPECTOR TESTER REPT SERVICE DT/TIME: 10/24/23 1037 * ALL edits or amendments must be made on the electronic/computer document * Loi Cerda 10/24/23 1037: Subjective Chief complaint: Patient seen and examined. Chart/MAR reviewed Patient is going for a colonoscopy today. Patient being seen for abdominal pain, acute on chronic pancreatitis, chronic pain syndrome, polyneuropathy, Patient is still requiring medications to help with managing current problems Patient is requiring IV narcotics to help manage breakthrough pain No fever/chills, chest pain, orthopnea, nausea/vomiting, pruritus, or hallucinations. 14-point ROS undertaken and is unremarkable except as noted. Objective General VS/I O: Vital Signs Date Temp Pulse Resp B/P B/P Mean Pulse Ox FiO2 10/22-10/23 98.2-100.8 58-77 14-19 96-149/52-89 81.7-108.9 94-99 Last Documented: Result Date Time Pulse Ox 99 10/23 0948 B/P 112/70 10/23 0948 B/P Mean 83.8 10/23 0948 Pulse 61 10/23 0948 Resp 17 10/23 0948 Temp 98.4 10/23 0925 O2 Delivery Nasal cannula 10/23 917 O2 Flow Rate 2 10/23 0918 FiO2 21 10/208 24 hour I O ending at 0700: 10/23 0700 10/22 1900 Intake Total 2200.00 Output Total Balance 2200.00 Intake, IV 1200.00 Intake, Oral 1000 Number 3 2 Bowel Movements Number Voids 3 2 PATIENT WEIGHT: Weight (lb): Weight (oz): Weight (kg): 60.000 Medications: Active Meds + DC'd Last 24 Hrs Lidocaine HCl (XYLOCAINE) 0 .STK-MED ONE .ROUTE (DC) Fentanyl Citrate (SUBLIMAZE) 0 .STK-MED ONE .ROUTE (DC) Propofol (DIPRIVAN 200MG/20ML INJECTION) 20 ML .STK-MED ONE IV (DC) Midazolam HCl (VERSED) 0 .STK-MED ONE .ROUTE (DC) Heparin Sodium (HEPARIN 5000 UNITS/ML) 5,000 UNIT Q12HR SUBQ (DCD) Polyethylene Glycol/Electrolytes (GOLYTELY) 4,000 ML ONCE ONE PO (DC) Hydromorphone HCl (DILAUDID) 4 MG Q6H PRN PRN PO (DCD) Hydromorphone HCl (DILAUDID) 0.5 MG Q6H PRN PRN IV (DCD) Bisacodyl (DULCOLAX) 10 MG BID PO (DCD) Hydromorphone HCl (DILAUDID) 1 MG Q6H PRN PRN IV (DC) Pantoprazole Sodium (PROTONIX) 40 MG DAILY IV (DCD) Sodium Chloride (SODIUM CHLORIDE) 10 ML ASDIR PRN IV (DCD) Ondansetron HCl (ZOFRAN) 4 MG Q6H PRN PRN IV (DCD) Albuterol Sulfate (ALBUTEROL SULFATE) 2.5 MG RTQ6H PRN PRN NEB (DCD) Alprazolam (XANAX) 2 MG TID PRN PRN PO (DCD) Lactated Ringer's (LACTATED RINGERS) 1,000 ML .Q10H IV (DCD) Gabapentin (NEURONTIN) 300 MG Q8H PO (DCD) Hydromorphone HCl (DILAUDID) 4 MG Q4H PRN PRN PO (DC) Sodium Chloride (SODIUM CHLORIDE 0.9%) 1,000 ML .Q10H IV (DC) Sodium Chloride (SODIUM CHLORIDE) 10 ML ASDIR PRN IV (DC) Physical Exam General appearance: alert, awake, oriented, conversational Head/eyes: atraumatic, EOMI, normocephalic, PERRLA ENT: moist mucosal membranes Neck: no JVD, supple/no meningismus Cardiovascular: regular rate rhythm Respiratory: no distress, symmetric expansion Abdomen: soft, TTP over the abdomen Extremities: moves all, no clubbing, no cyanosis Neuro/BOBBIN DISKER: alert, oriented X 3, reflexes equal bilat Skin: dry, normal turgor, warm Psychiatry: normal affect Results Findings/data: Laboratory Tests: 10/23 0430 Chemistry Sodium (134 - 147 mEq/L) 136 Potassium (3.4 - 5.0 mEq/L) 4.1 Chloride (100 - 108 mEq/L) 104 Carbon Dioxide (21 - 33 mEq/l) 27 Anion Gap (0 - 20) 9 BUN (7 - 25 mg/dL) < 5 L Creatinine (0.6 - 1.3 mg/dL) 1.0 Glomerular Filtr Rate (105 - 110) 98.8 L Glucose (77 - 141 mg/dL) 103 Calcium (8.0 - 10.5 mg/dL) 8.5 Phosphorus (2.5 - 4.9 MG/DL) 2.9 Magnesium (1.6 - 2.6 mg/dL) 1.64 Hematology WBC (4.5 - 11.0 x10 3/uL) 7.2 RBC (4.00 - 5.60 x10 6/uL) 3.98 L Hgb (12.5 - 16.9 g/dL) 11.0 L Hct (37.5 - 50.7 %) 33.7 L MCV (81.0 - 99.0 fL) 84.7 MCH (27.0 - 33.0 pg) 27.6 MCHC (33.0 - 37.0 g/dL) 32.6 L RDW (11.5 - 14.5 %) 13.9 Plt Count (150 - 400 x10 3/uL) 221 MPV (7.0 - 9.0 fL) 11.4 H Neut % (Auto) (56.0 - 77.0 %) 66.3 Lymph % (Auto) (14.0 - 32.0 %) 20.4 Randolph % (Auto) (4.8 - 9.0 %) 11.1 H Eos % (Auto) (0.3 - 3.7 %) 1.5 Baso % (Auto) (0.0 - 2.0 %) 0.4 Neut # (Auto) (2.0 - 7.6 x10 3/uL) 4.77 Lymph # (Auto) (1.0 - 3.8 x10 3/uL) 1.47 Randolph # (Auto) (0.1 - 0.8 x10 3/uL) 0.80 Eos # (Auto) (0.0 - 0.2 x10 3/uL) 0.11 Baso # (Auto) (0.0 - 0.2 x10 3/uL) 0.03 Abs Immat Gran (auto) (0.00 - 0.03 x10 3/uL) 0.02 Immature Gran % (0.0 - 2.0 %) 0.3 Nucleated RBC % (0 - 0 %) 0.0 Nucleated RBCs # (Man) (0.0 - 0.1 x10 3/uL) 0.00 Microbiology: Date/Time Procedure - Status Source Growth 10/22 1419 Campylobacter Culture - [facility] STOOL 10/22 1419 Escherichia coli 0157 Culture - [facility] STOOL 10/22 1419 Stool Culture - [facility] STOOL Diagnosis, Assessment Plan Free text A P: This is a 37-year-old male who presents with the following: Abdominal pain, acute on chronic pancreatitis -Lipase mildly elevated -Toradol 15 mg IV q6h x8 doses (10/19, completed) -Dilaudid 4 mg PO q6h PRN pain scale 4-10, first line (10/19, decr freq 10/22) -Dilaudid 0.5 mg IV q6h PRN pain scale 7-10, second line (10/21, decr dose 10/22 ) -Manageable Chronic pain syndrome -Per AUTO ADJUDICATION SPECIALIST last filled Dilaudid 4 mg #20 on 08/07/2023, prior use of Mason, Tylenol #3, and Tramadol -Pain medication as outlined above -Manageable Polyneuropathy -Gabapentin 300 mg PO q8h (10/19) -Manageable Disposition: Rx: Pharmacy: [facility] ([id number]) [address] [facility] [address] Past medical history: Asthma, Pancreatitis Past surgical history: None listed Family history: Noncontributory Social history: Denies alcohol, tobacco, or illicit drug use Allergies: Penicillins All pertinent diagnostics/labs from the last 24 hours and during the course of the admission were reviewed. Plan discussed with the patient and the nurse. All questions were answered. Patient will be monitored for deleterious side effects associated with opioids and sedative medications. Medications will be adjusted further clinical course. Risks versus benefits of opioid medications were reviewed to include, but not limited to respiratory depression, accidental overdose, altered mental status, sudden , constipation which could result in bowel obstruction, seizures, withdrawal, dependency/addiction, risk for falls. Goals: Daily pain control. Case reviewed and discussed with Dr. Polanco who agrees with plan of care. [place] AUTO ADJUDICATION SPECIALIST records reviewed: Tanner Bender 1985 3 M [address] [facility] [address] RX Summary Summary Total Prescriptions 9 Total Private Pay 0 Total Prescribers 8 Total Pharmacies 2 08/07/2023 08/07/2023 3 HYDROMORPHONE 4 MG TABLET 20.00 5 Ju Kyle [id number] [facility] ( 6469) 0 80.00 MME Comm Ins [place] 02/03/2023 02/03/2023 3 DIAZEPAM 5 MG TABLET 10.00 2 Pe Patel [id number] [facility] (0157) 0 2.50 LME Comm Ins [place] 11/21/2022 11/21/2022 2 HYDROCODONE-ACETAMIN 5-325 MG 28.00 7 Da Pan [id number] [facility] (0157) 0 20.00 MME Worker[place] Comp [place] 11/13/2022 11/13/2022 2 ACETAMINOPHEN-COD #3 TABLET 30.00 5 Da Pan [id number] [facility] ( 0157) 0 27.00 [place] Comm Ins [place] 10/31/2022 10/30/2022 2 TRAMADOL HCL 50 MG TABLET 12.00 3 [facility] [id number] [facility] ( 0157) 0 40.00 [place] Ins [place] 10/05/2022 10/04/2022 2 TRAMADOL HCL 50 MG TABLET 20.00 5 [place] [id number] [facility] ( 0157) 0 40.00 [place] Ins [place] 09/27/2022 09/27/2022 2 ACETAMINOPHEN-COD #[address] [place] [id number] [facility] ( 8568) 0 33.75 [place]ME [place] Ins [place] 01/01/2022 01/01/2022 1 HYDROCODONE-ACETAMIN 7.5-325 12.00 3 Ri Andrew [id number] [facility] (0157) 0 30.00 [place] 12/13/2021 12/13/2021 1 HYDROCODONE-ACETAMIN 10-325 MG 5.00 5 Talib Alvarenga [id number] [facility] (0157) 0 10.00 MME Comm Ins [place] [employer] (0157) [address] [place] [address] [employer] (1229) [address] [facility] [place] [address] Corie Polanco 11/04/23 1708: Attestations Physician Attestation Agree w/findings plan: The patient was seen and examined by the mid-level. We developed the care plan, which was continued by the mid-level provider to the best of my knowledge. I was immediately available. at 1449 at 1711 [facility] #:[id number] END OF REPORT [facility] 2023-10-24 09:00:00 [facility] Gastroenterology Progress Note REPORT#:[id number] REPORT STATUS: Signed REPORT INITIALIZATION DATE:10/24/23 TIME: 899 PATIENT: TANNER BENDER UNIT #: [id number] ROOM/BED: [place] [address] : 84 AGE: 37 SEX: M ATTEND: Aretha Diallo MD ADM AUTHOR: Quoc Alvarenga MD REPT SERVICE DT/TIME: 10/24/23 09 * ALL edits or amendments must be made on the electronic/computer document * Subjective Comments: EGD: mild gastroesophageal erosive disease; COLONOSCOPY: poor prep, no colitis, bx taken Objective General VS/I O: Last Documented: Result Date Time Pulse Ox 99 10/23 0845 B/P 145/54 10/23 0845 O2 Delivery Room air 10/23 0845 Pulse 67 10/23 0845 Resp 16 10/23 0845 B/P Mean 83.2 10/23 0625 Temp 37.7 10/23 0427 FiO2 21 10/208 24 hour I O ending at 0700: 10/23 0700 07 1900 Intake Total 2200.00 Output Total Balance 2200.00 Intake, IV 1200.00 Intake, Oral 1000 Number 3 2 Bowel Movements Number Voids 3 2 PATIENT WEIGHT: Weight (lb): Weight (oz): Weight (kg): 60.000 Medications: Active Meds + DC'd Last 24 Hrs Lidocaine HCl (XYLOCAINE) 0 .STK-MED ONE .ROUTE (DC) Fentanyl Citrate (SUBLIMAZE) 0 .STK-MED ONE .ROUTE (DC) Propofol (DIPRIVAN 200MG/20ML INJECTION) 20 ML .STK-MED ONE IV (DC) Midazolam HCl (VERSED) 0 .STK-MED ONE .ROUTE (DC) Heparin Sodium (HEPARIN 5000 UNITS/ML) 5,000 UNIT Q12HR SUBQ Polyethylene Glycol/Electrolytes (GOLYTELY) 4,000 ML ONCE ONE PO (DC) Hydromorphone HCl (DILAUDID) 4 MG Q6H PRN PRN PO Hydromorphone HCl (DILAUDID) 0.5 MG Q6H PRN PRN IV Bisacodyl (DULCOLAX) 10 MG BID PO Hydromorphone HCl (DILAUDID) 1 MG Q6H PRN PRN IV (DC) Pantoprazole Sodium (PROTONIX) 40 MG DAILY IV Sodium Chloride (SODIUM CHLORIDE) 10 ML ASDIR PRN IV Ondansetron HCl (ZOFRAN) 4 MG Q6H PRN PRN IV Albuterol Sulfate (ALBUTEROL SULFATE) 2.5 MG RTQ6H PRN PRN NEB Alprazolam (XANAX) 2 MG TID PRN PRN PO Lactated Ringer's (LACTATED RINGERS) 1,000 ML .Q10H IV Gabapentin (NEURONTIN) 300 MG Q8H PO Hydromorphone HCl (DILAUDID) 4 MG Q4H PRN PRN PO (DC) Sodium Chloride (SODIUM CHLORIDE 0.9%) 1,000 ML .Q10H IV (DC) Sodium Chloride (SODIUM CHLORIDE) 10 ML ASDIR PRN IV (DC) Physical Exam General appearance: alert, awake HEENT: abnl conjunctiva/sclera, dry mucosal membranes Neck: decreased range of motion Cardiovascular: normal capillary refill, regular rate rhythm Respiratory: aerating well, symmetric expansion Abdomen: non-tender, soft, no distention Extremities: decreased range of motion Musculoskeletal: decreased ROM Neuro/BOBBIN DISKER: alert, oriented X 3 Skin: abnormal color, abnormal temperature Psychiatry: normal affect, normal judgment/insight Results Findings/Data: Laboratory Tests 10/24/23 0430: [Embedded Image Not Available] Laboratory Tests 10/23 429 Chemistry Sodium (134 - 147 mEq/L) 136 Potassium (3.4 - 5.0 mEq/L) 4.1 Chloride (100 - 108 mEq/L) 104 Carbon Dioxide (21 - 33 mEq/l) 27 Anion Gap (0 - 20) 9 BUN (7 - 25 mg/dL) < 5 L Creatinine (0.6 - 1.3 mg/dL) 1.0 Glomerular Filtr Rate (105 - 110) 98.8 L Glucose (77 - 141 mg/dL) 103 Calcium (8.0 - 10.5 mg/dL) 8.5 Phosphorus (2.5 - 4.9 MG/DL) 2.9 Magnesium (1.6 - 2.6 mg/dL) 1.64 Laboratory Tests 10/23 0430 Hematology WBC (4.5 - 11.0 x10 3/uL) 7.2 RBC (4.00 - 5.60 x10 6/uL) 3.98 L Hgb (12.5 - 16.9 g/dL) 11.0 L Hct (37.5 - 50.7 %) 33.7 L MCV (81.0 - 99.0 fL) 84.7 MCH (27.0 - 33.0 pg) 27.6 MCHC (33.0 - 37.0 g/dL) 32.6 L RDW (11.5 - 14.5 %) 13.9 Plt Count (150 - 400 x10 3/uL) 221 MPV (7.0 - 9.0 fL) 11.4 H Neut % (Auto) (56.0 - 77.0 %) 66.3 Lymph % (Auto) (14.0 - 32.0 %) 20.4 Randolph % (Auto) (4.8 - 9.0 %) 11.1 H Eos % (Auto) (0.3 - 3.7 %) 1.5 Baso % (Auto) (0.0 - 2.0 %) 0.4 Neut # (Auto) (2.0 - 7.6 x10 3/uL) 4.77 Lymph # (Auto) (1.0 - 3.8 x10 3/uL) 1.47 Randolph # (Auto) (0.1 - 0.8 x10 3/uL) 0.80 Eos # (Auto) (0.0 - 0.2 x10 3/uL) 0.11 Baso # (Auto) (0.0 - 0.2 x10 3/uL) 0.03 Abs Immat Gran (auto) (0.00 - 0.03 x10 3/uL) 0.02 Immature Gran % (0.0 - 2.0 %) 0.3 Nucleated RBC % (0 - 0 %) 0.0 Nucleated RBCs # (Man) (0.0 - 0.1 x10 3/uL) 0.00 Diagnosis, Assessment Plan Free Text A P: abdominal pain, chronic abnormal ct, colitis elevated lipase, mild post prandial dyspepsia nausea/vomiting, improved 10/24/23 - EGD: mild gastroesophageal erosive disease; COLONOSCOPY: poor prep, no colitis, bx taken - pain/emesis control - chronic pain mgmt - diet as tolerated - outpatient colonoscopy in a few months due to prep quality will monitor from a distance at [address] [facility] #:[id number] END OF REPORT [facility] 2023-10-24 08:37:00 [id number] [place] [address] PATIENT NAME: TANNER BENDER ADMIT DATE: 10/20/23 ACCOUNT NO: [id number] ROOM NO: G558 AGE: 37 REPORT TYPE: ENDOSCOPY REPORT SEX: M ADMITTING PHYSICIAN:Amrit Edmondson MD ATTENDING PHYSICIAN:Aretha Diallo MD Gastroenterology Patient Name: Tanner Bender Procedure Date: 10/24/2023 8:37 AM Date of : 1985 Procedure: Upper GI endoscopy Indications: Upper abdominal pain Providers: Quoc Alvarenga MD Referring MD: Self Referred Requesting Provider: Medicines: Monitored Anesthesia Care Procedure: Pre-Anesthesia Assessment: - Prior to the procedure, a History and Physical was performed, and patient medications and allergies were reviewed. The patient's tolerance of previous anesthesia was also reviewed. The risks and benefits of the procedure and the sedation options and risks were discussed with the patient. All questions were answered, and informed consent was obtained. Prior Anticoagulants: The patient has taken no anticoagulant or antiplatelet agents. ASA Grade Assessment: III - A patient with severe systemic disease. After reviewing the risks and benefits, the patient was deemed in satisfactory condition to undergo the procedure. After obtaining informed consent, the endoscope was passed under direct vision. Throughout the procedure, the patient's blood pressure, pulse, and oxygen saturations were monitored continuously. The Endoscope was introduced through the mouth, and advanced to the second part of duodenum. The upper GI endoscopy was accomplished without difficulty. The patient tolerated the procedure well. Findings: LA Grade A (one or more mucosal breaks less than 5 mm, not extending between tops of 2 mucosal folds) esophagitis with no bleeding was found. Diffuse mild inflammation characterized by congestion (edema) was found in the stomach. The examined duodenum was normal. Complications: No immediate complications. PATIENT NAME: TANNER BENDER Estimated Blood Loss: Estimated blood loss: none. Impression: - LA Grade A reflux esophagitis with no bleeding. - Chronic gastritis. - Normal examined duodenum. - No specimens collected. Recommendation: - Resume previous diet. - Continue present medications. Procedure Code(s): --- Professional --- 20970, Esophagogastroduodenoscopy, flexible, transoral; diagnostic, including collection of specimen(s) by brushing or washing, when performed (separate procedure) Diagnosis Code(s): --- Professional --- K21.00, Gastro-esophageal reflux disease with esophagitis, without bleeding K29.50, Unspecified chronic gastritis without bleeding R10.10, Upper abdominal pain, unspecified CPT copyright 2020 [employer]. All rights reserved. The codes documented in this report are preliminary and upon green end man review may be revised to meet current compliance requirements. Quoc Alvarenga MD Quoc Alvarenga MD 10/24/2023 10:17:41 AM This report has been signed electronically. Number of Addenda: 0 Note Initiated On: 10/24/2023 8:37 AM Provation {[id number]}.pdf ProVation FT PDF at 1017 PATIENT NAME: TANNER BENDER [facility] 2023-10-24 08:37:00 [id number] [place] [address] PATIENT NAME: TANNER BENDER ADMIT DATE: 10/20/23 ACCOUNT NO: [id number] ROOM NO: G.558 AGE: 37 REPORT TYPE: ENDOSCOPY REPORT SEX: M ADMITTING PHYSICIAN:Amrit Edmondson MD ATTENDING PHYSICIAN:Aretha Diallo MD Gastroenterology Patient Name: Tanner Bender Procedure Date: 10/24/2023 8:37 AM Date of : 1985 Procedure: Colonoscopy Indications: Abnormal CT of the GI tract Patient Profile: This is a 37 year old male. Providers: Quoc Alvarenga MD Referring MD: Self Referred Requesting Provider: Medicines: Monitored Anesthesia Care Procedure: Pre-Anesthesia Assessment: - Airway Examination: normal oropharyngeal airway and neck mobility. - H and P completed, I have examined the patient on this date and have reviewed the medical history, drug history, and previous anesthesia experience. Results of the relevant diagnostic studies have been reviewed. Planned choice of anesthesia, risk, complications, benefits and alternatives have been discussed. - ASA Grade Assessment: III - A patient with severe systemic disease. After I obtained informed consent, the scope was passed under direct vision. Throughout the procedure, the patient's blood pressure, pulse, and oxygen saturations were monitored continuously. The Colonoscope was introduced through the anus and advanced to the sigmoid colon. The colonoscopy was performed without difficulty. The patient tolerated the procedure well. The quality of the bowel preparation was adequate. Findings: The colon (entire examined portion) appeared normal. Biopsies were taken with a cold forceps for histology. Complications: No immediate complications. Estimated Blood Loss: Estimated blood loss: none. PATIENT NAME: TANNER BENDER Impression: - The entire examined colon is normal. Biopsied. Recommendation: - Repeat colonoscopy in 1 month because the bowel preparation was suboptimal. - Advance diet as tolerated. Procedure Code(s): --- Professional --- 08142, 52, Colonoscopy, flexible; with biopsy, single or multiple Diagnosis Code(s): --- Professional --- R93.3, Abnormal findings on diagnostic imaging of other parts of digestive tract CPT copyright 2020 [employer]. All rights reserved. The codes documented in this report are preliminary and upon green end man review may be revised to meet current compliance requirements. Quoc Alvarenga MD Quoc Alvarenga MD 10/24/2023 10:19:24 AM This report has been signed electronically. Number of Addenda: 0 Note Initiated On: 10/24/2023 8:37 AM Provation {[id number]}.pdf ProVation FT PDF at 1019 PATIENT NAME: TANNER BENDER [facility] 2023-10-23 12:57:00 [facility] Hospitalist Progress Note REPORT#:[id number] REPORT STATUS: Signed REPORT INITIALIZATION DATE:10/23/23 TIME: 1257 PATIENT: TANNER BENDER UNIT #: [id number] ROOM/BED: [place] [address] : [birth year] AGE: 37 SEX: M ATTEND: Aretha Diallo MD ADM AUTHOR: Aretha Diallo MD REPT SERVICE DT/TIME: 10/23/23 1257 * ALL edits or amendments must be made on the electronic/computer document * Subjective Chief complaint: abdominal pain time seen 1225 pm Objective General VS/I O: Vital Signs: Date Time Temp Pulse Resp B/P B/P Pulse O2 O2 Flow FiO2 Mean Ox Delivery Rate 10/22 1126 98.2 60 17 108/69 81.7 96 10/22 0628 99.9 63 14 127/75 92.6 95 10/22 0506 100.2 69 15 111/63 78.9 92 10/22 0018 97.0 61 15 139/79 98.8 99 10/21 2134 97 Room air 10/21 1914 99.0 60 18 122/76 91.0 96 10/21 1550 98.2 55 17 149/88 108.1 95 24 hour I O ending at 0700: 10/22 0700 10/21 1900 Intake Total 1350.00 Output Total Balance 1350.00 Intake, IV 1000.00 Intake, Oral 350 Number 6 Bowel Movements Number Voids 4 PATIENT WEIGHT: Weight (lb): Weight (oz): Weight (kg): 60.000 Medications: Active Meds + DC'd Last 24 Hrs Heparin Sodium (HEPARIN 5000 UNITS/ML) 5,000 UNIT Q12HR SUBQ (UNV) Polyethylene Glycol/Electrolytes (GOLYTELY) 4,000 ML ONCE ONE PO (DC) Hydromorphone HCl (DILAUDID) 4 MG Q6H PRN PRN PO Hydromorphone HCl (DILAUDID) 0.5 MG Q6H PRN PRN IV Bisacodyl (DULCOLAX) 10 MG BID PO Hydromorphone HCl (DILAUDID) 1 MG Q6H PRN PRN IV (DC) Pantoprazole Sodium (PROTONIX) 40 MG DAILY IV Sodium Chloride (SODIUM CHLORIDE) 10 ML ASDIR PRN IV Ondansetron HCl (ZOFRAN) 4 MG Q6H PRN PRN IV Albuterol Sulfate (ALBUTEROL SULFATE) 2.5 MG RTQ6H PRN PRN NEB Alprazolam (XANAX) 2 MG TID PRN PRN PO Lactated Ringer's (LACTATED RINGERS) 1,000 ML .Q10H IV Gabapentin (NEURONTIN) 300 MG Q8H PO Hydromorphone HCl (DILAUDID) 4 MG Q4H PRN PRN PO (DC) Sodium Chloride (SODIUM CHLORIDE 0.9%) 1,000 ML .Q10H IV Sodium Chloride (SODIUM CHLORIDE) 10 ML ASDIR PRN IV Free Text Obj Notes Free Text Obj Notes: Physical Exam General appearance: patient sleeping but awakens easily Head/Eyes: normal conjunctiva/sclera Cardiovascular: normal heart sounds, regular rate rhythm Respiratory: clear to auscultation, no distress Abdomen: normal bowel sounds, soft Extremities: no edema Skin: no rash Psychiatry: normal affect, normal mood 37 yo male presenting with abdominal pain Impression: ? Acute on Chronic pancreatitis- Lipase mildly elevated History of cholecystectomy History of Drug-seeking behavior History of chronic pancreatitis History of narcotic bowel syndrome Gastritis Plan: - ivf - GI on board- await further input - abdomen is benign on exam - pain management consulted - scd's - am labs - resume home medications when available - Hgb stable 10/21/23 - prn pain management - gi has ordered kub - discussed with gi and the ct they refer to in their consult is from a previous admission - scd's - monitor hgb - ppi - am labs - ivf 10/22/23 - prn pain management - gi has ordered kub and is unremarkable - discussed with gi and the ct they refer to in their consult is from a previous admission - scd's/ ambulating - monitor hgb - ppi - am labs - ivf - discussed with GI - possible advancement of diet later today- they will determine - pain meds per pain management 10/23/23 - prn pain management - for colonoscopy in am - discussed with gi and okay for heparin sq for dvt proph- hgb improved - scd's- not wearing- add heparin sq- encourage oob - ppi - am labs - ivf -cld - pain meds per pain management at 1452 RPT #:[id number] END OF REPORT [facility] 2023-10-23 12:40:00 [facility]) Gastroenterology Progress Note REPORT#:[id number] REPORT STATUS: Signed REPORT INITIALIZATION DATE:10/23/23 TIME: 1240 PATIENT: TANNER BENDER UNIT #: [id number] ROOM/BED: [place] [address] : 84 AGE: 37 SEX: M ATTEND: Aretha Diallo MD ADM AUTHOR: Felice Manrique PA REPT SERVICE DT/TIME: 10/23/23 1240 * ALL edits or amendments must be made on the electronic/computer document * Felice Manrique 10/23/23 1240: Subjective Comments: abdominal pain persists. reports nausea with po intake. Review of Systems Additional notes: 10 point ros neg except hpi Objective General VS/I O: Last Documented: Result Date Time Pulse Ox 96 10/22 1126 B/P 108/69 10/22 1126 B/P Mean 81.7 10/22 1126 Temp 98.2 10/22 1126 Pulse 60 10/22 1126 Resp 17 10/22 1126 O2 Delivery Room air 10/21 2134 FiO2 21 10/20 2048 24 hour I O ending at 0700: 10/22 0700 10/21 1900 Intake Total 1350.00 Output Total Balance 1350.00 Intake, IV 1000.00 Intake, Oral 350 Number 6 Bowel Movements Number Voids 4 PATIENT WEIGHT: Weight (lb): Weight (oz): Weight (kg): 60.000 Medications: Active Meds + DC'd Last 24 Hrs Polyethylene Glycol/Electrolytes (GOLYTELY) 4,000 ML ONCE ONE PO (DC) Hydromorphone HCl (DILAUDID) 4 MG Q6H PRN PRN PO Hydromorphone HCl (DILAUDID) 0.5 MG Q6H PRN PRN IV Bisacodyl (DULCOLAX) 10 MG BID PO Hydromorphone HCl (DILAUDID) 1 MG Q6H PRN PRN IV (DC) Pantoprazole Sodium (PROTONIX) 40 MG DAILY IV Sodium Chloride (SODIUM CHLORIDE) 10 ML ASDIR PRN IV Ondansetron HCl (ZOFRAN) 4 MG Q6H PRN PRN IV Albuterol Sulfate (ALBUTEROL SULFATE) 2.5 MG RTQ6H PRN PRN NEB Alprazolam (XANAX) 2 MG TID PRN PRN PO Lactated Ringer's (LACTATED RINGERS) 1,000 ML .Q10H IV Gabapentin (NEURONTIN) 300 MG Q8H PO Hydromorphone HCl (DILAUDID) 4 MG Q4H PRN PRN PO (DC) Sodium Chloride (SODIUM CHLORIDE 0.9%) 1,000 ML .Q10H IV Sodium Chloride (SODIUM CHLORIDE) 10 ML ASDIR PRN IV Physical Exam HEENT: abnl conjunctiva/sclera, dry mucosal membranes Neck: decreased range of motion Cardiovascular: normal capillary refill, regular rate rhythm Respiratory: aerating well, symmetric expansion Abdomen: tenderness, soft, no distention Extremities: decreased range of motion Musculoskeletal: decreased ROM Neuro/BOBBIN DISKER: alert, oriented X 3 Skin: abnormal color, abnormal temperature Psychiatry: normal affect, normal judgment/insight Results Findings/Data: Laboratory Tests 10/23/236: [Embedded Image Not Available] Laboratory Tests 10/22 445 Chemistry Sodium (134 - 147 mEq/L) 134 Potassium (3.4 - 5.0 mEq/L) 4.3 Chloride (100 - 108 mEq/L) 101 Carbon Dioxide (21 - 33 mEq/l) 27 Anion Gap (0 - 20) 10 BUN (7 - 25 mg/dL) 7 Creatinine (0.6 - 1.3 mg/dL) 1.0 Glomerular Filtr Rate (105 - 110) 98.8 L Glucose (77 - 141 mg/dL) 94 Calcium (8.0 - 10.5 mg/dL) 8.5 Magnesium (1.6 - 2.6 mg/dL) 1.73 Laboratory Tests 10/22 445 Hematology WBC (4.5 - 11.0 x10 3/uL) 5.9 RBC (4.00 - 5.60 x10 6/uL) 4.18 Hgb (12.5 - 16.9 g/dL) 11.7 L Hct (37.5 - 50.7 %) 35.3 L MCV (81.0 - 99.0 fL) 84.4 MCH (27.0 - 33.0 pg) 28.0 MCHC (33.0 - 37.0 g/dL) 33.1 RDW (11.5 - 14.5 %) 13.7 Plt Count (150 - 400 x10 3/uL) 235 MPV (7.0 - 9.0 fL) 10.9 H Neut % (Auto) (56.0 - 77.0 %) 71.0 Lymph % (Auto) (14.0 - 32.0 %) 16.2 Randolph % (Auto) (4.8 - 9.0 %) 10.6 H Eos % (Auto) (0.3 - 3.7 %) 1.5 Baso % (Auto) (0.0 - 2.0 %) 0.5 Neut # (Auto) (2.0 - 7.6 x10 3/uL) 4.15 Lymph # (Auto) (1.0 - 3.8 x10 3/uL) 0.95 L Randolph # (Auto) (0.1 - 0.8 x10 3/uL) 0.62 Eos # (Auto) (0.0 - 0.2 x10 3/uL) 0.09 Baso # (Auto) (0.0 - 0.2 x10 3/uL) 0.03 Abs Immat Gran (auto) (0.00 - 0.03 x10 3/uL) 0.01 Immature Gran % (0.0 - 2.0 %) 0.2 Nucleated RBC % (0 - 0 %) 0.0 Nucleated RBCs # (Man) (0.0 - 0.1 x10 3/uL) 0.00 Diagnosis, Assessment Plan Free Text A P: abdominal pain, chronic abnormal ct, colitis elevated lipase, mild post prandial dyspepsia nausea/vomiting - pain/emesis control - chronic pain mgmt - clear liquid diet - colonoscopy tomorrow Quoc Alvarenga 10/24/23 0903: Attestations Physician Attestation Agree w/findings plan: Agree with the findings and plan as documented by Manrique PA at 1425 at 0903 RPT #:[id number] END OF REPORT [facility] 2023-10-23 08:54:00 [facility] Pain Management Progress Note REPORT#:[id number] REPORT STATUS: Signed REPORT INITIALIZATION DATE:10/23/23 TIME: 853 PATIENT: TANNER BENDER UNIT #: [id number] ROOM/BED: [place] [address] : 84 AGE: 37 SEX: M ATTEND: Aretha Diallo MD ADM AUTHOR: Loi Cerda [employer] INSPECTOR TESTER REPT SERVICE DT/TIME: 10/23/23 0854 * ALL edits or amendments must be made on the electronic/computer document * Loi Cerda 10/23/23 0854: Subjective Chief complaint: Patient seen and examined. Chart/MAR reviewed Patient still has abdominal pain. Took medications twice last night. In deep sleep but wakes. Pain appears very well controlled, though he will say otherwise. Patient being seen for abdominal pain, acute on chronic pancreatitis, chronic pain syndrome, polyneuropathy, Patient is still requiring medications to help with managing current problems Patient is requiring IV narcotics to help manage breakthrough pain No fever/chills, chest pain, orthopnea, nausea/vomiting, pruritus, or hallucinations. 14-point ROS undertaken and is unremarkable except as noted. Objective General VS/I O: Vital Signs Date Temp Pulse Resp B/P B/P Mean Pulse Ox FiO2 10/21-10/22 97.0-100.2 54-69 14-18 111-149/63-89 78.9-108.1 92-99 Last Documented: Result Date Time Pulse Ox 95 10/22 06 B/P 127/75 10/23 627 B/P Mean 92.6 10/23 627 Temp 99.9 10/22 0628 Pulse 63 10/22 0628 Resp 14 10/23 627 O2 Delivery Room air 10/21 2133 FiO2 21 10/21 2047 24 hour I O ending at 0700: 10/22 0700 10/21 1900 Intake Total 1350.00 Output Total Balance 1350.00 Intake, IV 1000.00 Intake, Oral 350 Number 6 Bowel Movements Number Voids 4 PATIENT WEIGHT: Weight (lb): Weight (oz): Weight (kg): 60.000 Medications: Active Meds + DC'd Last 24 Hrs Bisacodyl (DULCOLAX) 10 MG BID PO Hydromorphone HCl (DILAUDID) 1 MG Q6H PRN PRN IV Pantoprazole Sodium (PROTONIX) 40 MG DAILY IV Sodium Chloride (SODIUM CHLORIDE) 10 ML ASDIR PRN IV Hydromorphone HCl (DILAUDID) 1 MG Q4H PRN PRN IV (DC) Ondansetron HCl (ZOFRAN) 4 MG Q6H PRN PRN IV Albuterol Sulfate (ALBUTEROL SULFATE) 2.5 MG RTQ6H PRN PRN NEB Alprazolam (XANAX) 2 MG TID PRN PRN PO Ketorolac Tromethamine (TORADOL) 15 MG Q6HR IV (DC) Lactated Ringer's (LACTATED RINGERS) 1,000 ML .Q10H IV Gabapentin (NEURONTIN) 300 MG Q8H PO Hydromorphone HCl (DILAUDID) 4 MG Q4H PRN PRN PO Sodium Chloride (SODIUM CHLORIDE 0.9%) 1,000 ML .Q10H IV Sodium Chloride (SODIUM CHLORIDE) 10 ML ASDIR PRN IV Physical Exam General appearance: alert, awake, oriented, pleasant Head/eyes: atraumatic, EOMI, normocephalic, PERRLA ENT: normal ear right, normal nose, moist mucosal membranes Neck: no JVD, supple/no meningismus Cardiovascular: regular rate rhythm Respiratory: no distress, symmetric expansion Abdomen: soft, TTP over the abdomen Extremities: moves all, no clubbing, no cyanosis Neuro/BOBBIN DISKER: alert, oriented X 3, reflexes equal bilat Skin: dry, normal turgor, warm Psychiatry: normal affect Results Findings/data: Laboratory Tests: 10/22 0446 Chemistry Sodium (134 - 147 mEq/L) 134 Potassium (3.4 - 5.0 mEq/L) 4.3 Chloride (100 - 108 mEq/L) 101 Carbon Dioxide (21 - 33 mEq/l) 27 Anion Gap (0 - 20) 10 BUN (7 - 25 mg/dL) 7 Creatinine (0.6 - 1.3 mg/dL) 1.0 Glomerular Filtr Rate (105 - 110) 98.8 L Glucose (77 - 141 mg/dL) 94 Calcium (8.0 - 10.5 mg/dL) 8.5 Magnesium (1.6 - 2.6 mg/dL) 1.73 Hematology WBC (4.5 - 11.0 x10 3/uL) 5.9 RBC (4.00 - 5.60 x10 6/uL) 4.18 Hgb (12.5 - 16.9 g/dL) 11.7 L Hct (37.5 - 50.7 %) 35.3 L MCV (81.0 - 99.0 fL) 84.4 MCH (27.0 - 33.0 pg) 28.0 MCHC (33.0 - 37.0 g/dL) 33.1 RDW (11.5 - 14.5 %) 13.7 Plt Count (150 - 400 x10 3/uL) 235 MPV (7.0 - 9.0 fL) 10.9 H Neut % (Auto) (56.0 - 77.0 %) 71.0 Lymph % (Auto) (14.0 - 32.0 %) 16.2 Randolph % (Auto) (4.8 - 9.0 %) 10.6 H Eos % (Auto) (0.3 - 3.7 %) 1.5 Baso % (Auto) (0.0 - 2.0 %) 0.5 Neut # (Auto) (2.0 - 7.6 x10 3/uL) 4.15 Lymph # (Auto) (1.0 - 3.8 x10 3/uL) 0.95 L Randolph # (Auto) (0.1 - 0.8 x10 3/uL) 0.62 Eos # (Auto) (0.0 - 0.2 x10 3/uL) 0.09 Baso # (Auto) (0.0 - 0.2 x10 3/uL) 0.03 Abs Immat Gran (auto) (0.00 - 0.03 x10 3/uL) 0.01 Immature Gran % (0.0 - 2.0 %) 0.2 Nucleated RBC % (0 - 0 %) 0.0 Nucleated RBCs # (Man) (0.0 - 0.1 x10 3/uL) 0.00 Diagnosis, Assessment Plan Free text A P: This is a 37-year-old male who presents with the following: Abdominal pain, acute on chronic pancreatitis -Lipase mildly elevated -Toradol 15 mg IV q6h x8 doses (10/19, completed) -Dilaudid 4 mg PO q6h PRN pain scale 4-10, first line (10/19, decr freq 10/22) -Dilaudid 0.5 mg IV q6h PRN pain scale 7-10, second line (10/21, decr dose 10/22 ) -Manageable Chronic pain syndrome -Per [employer]JUDICATION SPECIALIST last filled Dilaudid 4 mg #20 on 08/07/2023, prior use of Mason, Tylenol #3, and Tramadol -Pain medication as outlined above -Manageable Polyneuropathy -Gabapentin 300 mg PO q8h (10/19) -Manageable Disposition: Rx: Pharmacy: [facility] ([id number]) 5666 [facility] [address] Past medical history: Asthma, Pancreatitis Past surgical history: None listed Family history: Noncontributory Social history: Denies alcohol, tobacco, or illicit drug use Allergies: Penicillins All pertinent diagnostics/labs from the last 24 hours and during the course of the admission were reviewed. Plan discussed with the patient and the nurse. All questions were answered. Patient will be monitored for deleterious side effects associated with opioids and sedative medications. Medications will be adjusted further clinical course. Risks versus benefits of opioid medications were reviewed to include, but not limited to respiratory depression, accidental overdose, altered mental status, sudden , constipation which could result in bowel obstruction, seizures, withdrawal, dependency/addiction, risk for falls. Goals: Daily pain control. Case reviewed and discussed with Dr. Polanco who agrees with plan of care. [facility] records reviewed: Tanner Bender 1985 2 M [address] [facility] [address] RX Summary Summary Total Prescriptions 9 Total Private Pay 0 Total Prescribers 8 Total Pharmacies 2 08/07/2023 08/07/2023 3 HYDROMORPHONE 4 MG TABLET 20.00 5 [facility] [id number] [facility] ( 0157) 0 80.00 MME Comm Ins [place] 02/03/2023 02/03/2023 3 DIAZEPAM 5 MG TABLET 10.00 2 Pe Patel [id number] [facility] (0157) 0 2.50 LME Comm Ins [place] 11/21/2022 11/21/2022 2 HYDROCODONE-ACETAMIN 5-325 MG 28.00 7 Da Pan [id number] [facility] (0157) 0 20.00 MME Worker's Comp [place] 11/13/2022 11/13/2022 2 ACETAMINOPHEN-COD #3 TABLET 30.00 5 Da Pan [id number] [facility] ( 0157) 0 27.00 [place]ME Comm Ins [place] 10/31/2022 10/30/2022 2 TRAMADOL HCL 50 MG TABLET 12.00 3 [facility] [id number] [facility] ( 0157) 0 40.00 [place]ME Comm Ins [place] 10/05/2022 10/04/2022 2 TRAMADOL HCL 50 MG TABLET 20.00 5 [place] [id number] [facility] ( 0157) 0 40.00 [place]ME Comm [place] 09/27/2022 09/27/2022 2 ACETAMINOPHEN-COD #3 TABLET 15.00 2 Lynette [id number] [facility] ( 8568) 0 33.75 MME Comm Ins [place] 01/01/2022 01/01/2022 1 HYDROCODONE-ACETAMIN 7.5-325 12.00 3 [place] [id number] [facility] (0157) 0 30.00 MME Comm Ins [place] 12/13/2021 12/13/2021 1 HYDROCODONE-ACETAMIN 10-325 MG 5.00 5 [place] [id number] [facility] (0157) 0 10.00 MME Comm [employer] [place] [employer] ([id number]) [address] [place] [address] [employer] (3645) [address] [facility] [place] [address] Corie Polanco 11/02/23 0832: Attestations Physician Attestation Agree w/findings plan: The patient was seen and examined by the mid-level. We developed the care plan, which was continued by the mid-level provider to the best of my knowledge. I was immediately available. at 1208 at 0840 RPT #:[id number] END OF REPORT [facility] 2023-10-22 12:09:00 [facility] ([facility] Hospitalist Progress Note REPORT#:[id number] REPORT STATUS: Signed REPORT INITIALIZATION DATE:10/22/23 TIME: 1209 PATIENT: TANNER BENDER UNIT #: [id number] ROOM/BED: [place] [address] : 84 AGE: 37 SEX: M ATTEND: Aretha Diallo MD ADM AUTHOR: Aretha Diallo MD REPT SERVICE DT/TIME: 10/22/23 1209 * ALL edits or amendments must be made on the electronic/computer document * Subjective Chief complaint: having abdominal pain today time seen 1120 am Objective General VS/I O: Vital Signs: Date Time Temp Pulse Resp B/P B/P Pulse O2 O2 Flow FiO2 Mean Ox Delivery Rate 10/21 1121 97.9 54 15 145/89 108.1 97 10/21 0706 97.9 52 14 134/87 102.4 96 10/20 2351 98.6 59 12 139/88 104.9 98 10/20 2048 95 Room air 21 10/20 1935 98.2 53 13 139/76 97.1 98 10/20 1542 97.9 51 15 120/71 87.3 95 PATIENT WEIGHT: Weight (lb): Weight (oz): Weight (kg): 60.000 Medications: Active Meds + DC'd Last 24 Hrs Hydromorphone HCl (DILAUDID) 1 MG Q6H PRN PRN IV Pantoprazole Sodium (PROTONIX) 40 MG DAILY IV Sodium Chloride (SODIUM CHLORIDE) 10 ML ASDIR PRN IV Hydromorphone HCl (DILAUDID) 1 MG Q4H PRN PRN IV (DC) Ondansetron HCl (ZOFRAN) 4 MG Q6H PRN PRN IV Albuterol Sulfate (ALBUTEROL SULFATE) 2.5 MG RTQ6H PRN PRN NEB Alprazolam (XANAX) 2 MG TID PRN PRN PO Ketorolac Tromethamine (TORADOL) 15 MG Q6HR IV (DC) Lactated Ringer's (LACTATED RINGERS) 1,000 ML .Q10H IV Gabapentin (NEURONTIN) 300 MG Q8H PO Hydromorphone HCl (DILAUDID) 4 MG Q4H PRN PRN PO Sodium Chloride (SODIUM CHLORIDE 0.9%) 1,000 ML .Q10H IV Sodium Chloride (SODIUM CHLORIDE) 10 ML ASDIR PRN IV Free Text Obj Notes Free Text Obj Notes: Physical Exam General appearance: alert, awake Head/Eyes: normal conjunctiva/sclera Cardiovascular: normal heart sounds, regular rate rhythm Respiratory: clear to auscultation, no distress Abdomen: normal bowel sounds, soft Extremities: no edema Skin: no rash Psychiatry: normal affect, normal mood 37 yo male presenting with abdominal pain Impression: ? Acute on Chronic pancreatitis- Lipase mildly elevated History of cholecystectomy History of Drug-seeking behavior History of chronic pancreatitis History of narcotic bowel syndrome Gastritis Plan: - ivf - GI on board- await further input - abdomen is benign on exam - pain management consulted - scd's - am labs - resume home medications when available - Hgb stable 10/21/23 - prn pain management - gi has ordered kub - discussed with gi and the ct they refer to in their consult is from a previous admission - scd's - monitor hgb - ppi - am labs - ivf 10/22/23 - prn pain management - gi has ordered kub and is unremarkable - discussed with gi and the ct they refer to in their consult is from a previous admission - scd's/ ambulating - monitor hgb - ppi - am labs - ivf - discussed with GI - possible advancement of diet later today- they will determine - pain meds per pain management at 1452 RPT #:[id number] END OF REPORT [facility] 2023-10-22 10:25:00 [facility] Gastroenterology Progress Note REPORT#:[id number] REPORT STATUS: Signed REPORT INITIALIZATION DATE:10/22/23 TIME: 1025 PATIENT: TANNER BENDER UNIT #: [id number] ROOM/BED: [place] [address] : 84 AGE: 37 SEX: M ATTEND: Aretha Diallo MD ADM AUTHOR: Felice Manrique REPT SERVICE DT/TIME: 10/22/23 1025 * ALL edits or amendments must be made on the electronic/computer document * Felice Manrique 10/22/23 1025: Subjective Comments: reports persistent abdominal pain and nausea. Reportedly had diarrhea last night. Review of Systems Additional notes: 10 point ros neg except hpi Objective General VS/I O: Last Documented: Result Date Time Pulse Ox 96 10/21 705 B/P 134/87 10/21 705 B/P Mean 102.4 10/21 705 Temp 97.9 10/21 705 Pulse 52 10/21 705 Resp 14 10/21 705 FiO2 21 10/21 2047 O2 Delivery Room air 10/21 2047 PATIENT WEIGHT: Weight (lb): Weight (oz): Weight (kg): 60.000 Medications: Active Meds + DC'd Last 24 Hrs Hydromorphone HCl (DILAUDID) 1 MG Q6H PRN PRN IV Pantoprazole Sodium (PROTONIX) 40 MG DAILY IV Sodium Chloride (SODIUM CHLORIDE) 10 ML ASDIR PRN IV Hydromorphone HCl (DILAUDID) 1 MG Q4H PRN PRN IV (DC) Pantoprazole (PROTONIX) 40 MG DAILY@0600 PO (DC) Ondansetron HCl (ZOFRAN) 4 MG Q6H PRN PRN IV Albuterol Sulfate (ALBUTEROL SULFATE) 2.5 MG RTQ6H PRN PRN NEB Alprazolam (XANAX) 2 MG TID PRN PRN PO Ketorolac Tromethamine (TORADOL) 15 MG Q6HR IV Lactated Ringer's (LACTATED RINGERS) 1,000 ML .Q10H IV Gabapentin (NEURONTIN) 300 MG Q8H PO Hydromorphone HCl (DILAUDID) 4 MG Q4H PRN PRN PO Sodium Chloride (SODIUM CHLORIDE 0.9%) 1,000 ML .Q10H IV Sodium Chloride (SODIUM CHLORIDE) 10 ML ASDIR PRN IV Physical Exam HEENT: abnl conjunctiva/sclera, dry mucosal membranes Neck: decreased range of motion Cardiovascular: normal capillary refill, regular rate rhythm Respiratory: aerating well, symmetric expansion Abdomen: tenderness, soft, no distention Extremities: decreased range of motion Musculoskeletal: decreased ROM Neuro/BOBBIN DISKER: alert, oriented X 3 Skin: abnormal color, abnormal temperature Psychiatry: normal affect, normal judgment/insight Results Radiology Data: Recent Impressions: RADIOLOGY - XR ABDOMEN 1V (KUB) 10/20 1327 Report Impression - Status: SIGNED Entered: 10/21/2023 1454 IMPRESSION: Nonobstructive gas pattern. Impression By: [email or web address] - Amrit Maldonado M.D. Diagnosis, Assessment Plan Free Text A P: abdominal pain, chronic abnormal ct, colitis elevated lipase, mild post prandial dyspepsia nausea/vomiting - chronic pain mgmt - diet as tolerated - ivf - patient inquiring about colonoscopy, may consider friday based on clinical course. However, discussed with patient recommendations for outpatient colonoscopy given current symptoms of nausea and vomiting, and likely inability to tolerate prep. - Quoc Willis 10/23/23 1205: Attestations Physician Attestation Agree w/findings plan: Agree with the findings and plan as documented by Burton HSU at 1441 at 1205 RPT #:[id number] END OF REPORT [facility] 2023-10-22 08:12:00 [facility] ([facility]) Pain Management Progress Note REPORT#:[id number] REPORT STATUS: Signed REPORT INITIALIZATION DATE:10/22/23 TIME: 811 PATIENT: TANNER BENDER UNIT #: [id number] ROOM/BED: [place] [address] : 84 AGE: 37 SEX: M ATTEND: Aretha Diallo MD ADM AUTHOR: Loi Cerda RUBBER GOODS INSPECTOR TESTER REPT SERVICE DT/TIME: 10/22/23 0812 * ALL edits or amendments must be made on the electronic/computer document * Loi Cerda 10/22/2312: Subjective Chief complaint: Patient seen and examined. Chart/MAR reviewed Patient continues to hurt. He has diarrhea. He is trying to give a stool sample. He states pain remains severe. Patient being seen for abdominal pain, acute on chronic pancreatitis, chronic pain syndrome, polyneuropathy, Patient is still requiring medications to help with managing current problems Patient is requiring IV narcotics to help manage breakthrough pain No fever/chills, chest pain, orthopnea, nausea/vomiting, pruritus, or hallucinations. 14-point ROS undertaken and is unremarkable except as noted. Objective General VS/I O: Vital Signs Date Temp Pulse Resp B/P B/P Mean Pulse Ox FiO2 10/20-10/21 97.7-98.6 51-62 12-15 120-139/71-88 87.3-104.9 90-98 21 Last Documented: Result Date Time Pulse Ox 96 10/21 705 B/P 134/87 10/21 705 B/P Mean 102.4 10/21 705 Temp 97.9 10/21 705 Pulse 52 10/21 07 Resp 14 10/21 705 FiO2 21 10/21 2047 O2 Delivery Room air 10/21 2047 PATIENT WEIGHT: Weight (lb): Weight (oz): Weight (kg): 60.000 Medications: Active Meds + DC'd Last 24 Hrs Pantoprazole Sodium (PROTONIX) 40 MG DAILY IV Sodium Chloride (SODIUM CHLORIDE) 10 ML ASDIR PRN IV Hydromorphone HCl (DILAUDID) 1 MG Q4H PRN PRN IV Pantoprazole (PROTONIX) 40 MG DAILY@0600 PO (DC) Ondansetron HCl (ZOFRAN) 4 MG Q6H PRN PRN IV Albuterol Sulfate (ALBUTEROL SULFATE) 2.5 MG RTQ6H PRN PRN NEB Alprazolam (XANAX) 2 MG TID PRN PRN PO Ketorolac Tromethamine (TORADOL) 15 MG Q6HR IV Lactated Ringer's (LACTATED RINGERS) 1,000 ML .Q10H IV Gabapentin (NEURONTIN) 300 MG Q8H PO Hydromorphone HCl (DILAUDID) 4 MG Q4H PRN PRN PO Hydromorphone HCl (DILAUDID) 1 MG Q6H PRN PRN IV (DC) Sodium Chloride (SODIUM CHLORIDE 0.9%) 1,000 ML .Q10H IV Sodium Chloride (SODIUM CHLORIDE) 10 ML ASDIR PRN IV Physical Exam General appearance: alert, awake, oriented, no acute distress Head/eyes: atraumatic, EOMI, normocephalic, PERRLA ENT: normal ear right, normal nose, moist mucosal membranes Neck: no JVD, supple/no meningismus Cardiovascular: regular rate rhythm Respiratory: no distress, symmetric expansion Abdomen: soft, TTP over the abdomen Extremities: moves all, no clubbing, no cyanosis Neuro/BOBBIN DISKER: alert, oriented X 3, reflexes equal bilat Skin: dry, warm Psychiatry: normal affect Results Findings/data: Recent Impressions: RADIOLOGY - XR ABDOMEN 1V (KUB) 10/20 1327 Report Impression - Status: SIGNED Entered: 10/21/2023 4677 IMPRESSION: Nonobstructive gas pattern. Impression By: [email or web address] - Amrit Maldonado M.D. Diagnosis, Assessment Plan Free text A P: This is a 37-year-old male who presents with the following: Abdominal pain, acute on chronic pancreatitis -Lipase mildly elevated -Dilaudid 4 mg PO q4h PRN pain scale 4-10, first line (10/19) -adjust Dilaudid 1 mg IV q6h PRN pain scale 7-10, second line (10/21) -Toradol 15 mg IV q6h x8 doses (10/19) Chronic pain syndrome -Per AUTO ADJUDICATION SPECIALIST last filled Dilaudid 4 mg #20 on 08/07/2023, prior use of Mason, Tylenol #3, and Tramadol -Pain medication as outlined above Polyneuropathy -Gabapentin 300 mg PO q8h (10/19) Disposition: Rx: Pharmacy: [facility] ([id number]) [address] [facility] [address] Past medical history: Asthma, Pancreatitis Past surgical history: None listed Family history: Noncontributory Social history: Denies alcohol, tobacco, or illicit drug use Allergies: Penicillins All pertinent diagnostics/labs from the last 24 hours and during the course of the admission were reviewed. Plan discussed with the patient and the nurse. All questions were answered. Patient will be monitored for deleterious side effects associated with opioids and sedative medications. Medications will be adjusted further clinical course. Risks versus benefits of opioid medications were reviewed to include, but not limited to respiratory depression, accidental overdose, altered mental status, sudden , constipation which could result in bowel obstruction, seizures, withdrawal, dependency/addiction, risk for falls. Goals: Daily pain control. Case reviewed and discussed with Dr. Polanco who agrees with plan of care. [place] [employer] ADJUDICATION SPECIALIST records reviewed: Tanner Bender 1985 3 M [address] [place] [address] RX Summary Summary Total Prescriptions 9 Total Private Pay 0 Total Prescribers 8 Total Pharmacies 2 08/07/2023 08/07/2023 3 HYDROMORPHONE 4 MG TABLET 20.00 5 [facility] [id number] [facility] ( 0157) 0 80.00 MME Comm Ins [place] 02/03/2023 02/03/2023 3 DIAZEPAM 5 MG TABLET 10.00 2 Pe [facility] [id number] [facility] (0157) 0 2.50 LME Comm Ins [place] 11/21/2022 11/21/2022 2 HYDROCODONE-ACETAMIN 5-325 MG 28.00 7 Da [facility] [id number] [facility] (0157) 0 20.00 M[place] Work[place] Comp [place] 11/13/2022 11/13/2022 2 ACETAMINOPHEN-COD #3 TABLET 30.00 5 Da Pan [id number] [facility] ( 0157) 0 27.00 MME Comm [place] 10/31/2022 10/30/2022 2 TRAMADOL HCL 50 MG TABLET 12.00 3 [facility] [id number] [facility] ( 0157) 0 40.00 [place] 10/05/2022 10/04/2022 2 TRAMADOL HCL 50 MG TABLET 20.00 5 Ar [place] [id number] [facility] ( 0157) 0 40.00 [place] 09/27/2022 09/27/2022 2 ACETAMINOPHEN-COD #[address] [place] [id number] [facility] ( 8568) 0 33.75 [place]ME [place] 01/01/2022 01/01/2022 1 HYDROCODONE-ACETAMIN 7.5-325 12.00 3 Ri [place] [id number] [facility] (0157) 0 30.00 [place]ME [place] 12/13/2021 12/13/2021 1 HYDROCODONE-ACETAMIN 10-325 MG 5.00 5 Je [place] [id number] [facility] (0157) 0 10.00 MME Comm Ins [place] [employer] (2059) [address] [place] [address] [employer] (1447) [address] [facility] [address] Corie Polanco 11/01/23 0834: Attestations Physician Attestation Agree w/findings plan: The patient was seen and examined by the mid-level. We developed the care plan, which was continued by the mid-level provider to the best of my knowledge. I was immediately available. at 1423 at 0838 RPT #:[id number] END OF REPORT [facility] 2023-10-21 14:26:00 [facility] Hospitalist Progress Note REPORT#:[id number] REPORT STATUS: Signed REPORT INITIALIZATION DATE:10/21/23 TIME: 1425 PATIENT: TANNER BENDER UNIT #: [id number] ROOM/BED: [place] [address] : 84 AGE: 37 SEX: M ATTEND: Aretha Diallo MD ADM AUTHOR: Aretha Diallo MD REPT SERVICE DT/TIME: 10/21/23 142 * ALL edits or amendments must be made on the electronic/computer document * Subjective Chief complaint: abdominal pain time seen 1025 am Objective General VS/I O: Vital Signs: Date Time Temp Pulse Resp B/P B/P Pulse O2 O2 Flow FiO2 Mean Ox Delivery Rate 10/20 1134 97.7 62 15 137/84 101.6 90 10/20 0703 97.3 53 14 106/65 78.3 95 10/20 0352 97.5 52 12 112/64 80.1 95 10/20 0352 97.5 52 12 112/64 80.1 95 10/20 0310 53 14 106/68 80.9 95 10/20 0003 97.5 51 12 130/70 90.0 97 10/19 2017 97.5 51 13 149/80 102.9 94 24 hour I O ending at 0700: 10/20 0700 10/19 1900 Intake Total Output Total Balance Number Voids 1 PATIENT WEIGHT: Weight (lb): Weight (oz): Weight (kg): 60.000 Medications: Active Meds + DC'd Last 24 Hrs Pantoprazole Sodium (PROTONIX) 40 MG DAILY IV Sodium Chloride (SODIUM CHLORIDE) 10 ML ASDIR PRN IV Hydromorphone HCl (DILAUDID) 1 MG Q4H PRN PRN IV Pantoprazole (PROTONIX) 40 MG DAILY@0600 PO (DC) Ondansetron HCl (ZOFRAN) 4 MG Q6H PRN PRN IV Albuterol Sulfate (ALBUTEROL SULFATE) 2.5 MG RTQ6H PRN PRN NEB Alprazolam (XANAX) 2 MG TID PRN PRN PO Ketorolac Tromethamine (TORADOL) 15 MG Q6HR IV Lactated Ringer's (LACTATED RINGERS) 1,000 ML BOLUS ONCE ONE IV (DC) Lactated Ringer's (LACTATED RINGERS) 1,000 ML .Q10H IV Gabapentin (NEURONTIN) 300 MG Q8H PO Hydromorphone HCl (DILAUDID) 4 MG Q4H PRN PRN PO Hydromorphone HCl (DILAUDID) 1 MG Q6H PRN PRN IV (DC) Sodium Chloride (SODIUM CHLORIDE 0.9%) 1,000 ML .Q10H IV Sodium Chloride (SODIUM CHLORIDE) 10 ML ASDIR PRN IV Free Text Obj Notes Free Text Obj Notes: Physical Exam General appearance: alert, awake Head/Eyes: normal conjunctiva/sclera Cardiovascular: normal heart sounds, regular rate rhythm Respiratory: clear to auscultation, no distress Abdomen: normal bowel sounds, soft Extremities: no edema Skin: no rash Psychiatry: normal affect, normal mood 37 yo male presenting with abdominal pain Impression: ? Acute on Chronic pancreatitis- Lipase mildly elevated History of cholecystectomy History of Drug-seeking behavior History of chronic pancreatitis History of narcotic bowel syndrome Gastritis Plan: - ivf - GI on board- await further input - abdomen is benign on exam - pain management consulted - scd's - am labs - resume home medications when available - Hgb stable 10/21/23 - prn pain management - gi has ordered kub - discussed with gi and the ct they refer to in their consult is from a previous admission - scd's - monitor hgb - ppi - am labs - ivf at 1452 RPT #:[id number] END OF REPORT [facility] 2023-10-21 11:52:00 [facility] ([facility]) Gastroenterology Progress Note REPORT#:[id number] REPORT STATUS: Signed REPORT INITIALIZATION DATE:10/21/23 TIME: 1152 PATIENT: TANNER BENDER UNIT #: [id number] ROOM/BED: [place] [address] : 84 AGE: 37 SEX: M ATTEND: Aretha Diallo MD ADM AUTHOR: Felice Manrique REPT SERVICE DT/TIME: 10/21/23 1152 * ALL edits or amendments must be made on the electronic/computer document * Felice Manrique 10/21/23 1152: Subjective Comments: chronic abdominal pain. reports vomiting, unable to tolerate po reportedly. Objective General VS/I O: Last Documented: Result Date Time Pulse Ox 90 10/20 1134 B/P 137/84 10/20 1134 B/P Mean 101.6 10/20 1134 Temp 97.7 10/20 1134 Pulse 62 10/20 1134 Resp 15 10/20 1134 O2 Delivery Room air 10/19 0214 24 hour I O ending at 0700: 10/20 0700 08 1900 Intake Total Output Total Balance Number Voids 1 PATIENT WEIGHT: Weight (lb): Weight (oz): Weight (kg): 60.000 Medications: Active Meds + DC'd Last 24 Hrs Pantoprazole Sodium (PROTONIX) 40 MG DAILY IV (UNV) Sodium Chloride (SODIUM CHLORIDE) 10 ML ASDIR PRN IV (UNV) Hydromorphone HCl (DILAUDID) 1 MG Q4H PRN PRN IV Pantoprazole (PROTONIX) 40 MG DAILY@0600 PO (DCr) Ondansetron HCl (ZOFRAN) 4 MG Q6H PRN PRN IV Albuterol Sulfate (ALBUTEROL SULFATE) 2.5 MG RTQ6H PRN PRN NEB Alprazolam (XANAX) 2 MG TID PRN PRN PO Ketorolac Tromethamine (TORADOL) 15 MG Q6HR IV Lactated Ringer's (LACTATED RINGERS) 1,000 ML BOLUS ONCE ONE IV (DC) Lactated Ringer's (LACTATED RINGERS) 1,000 ML .Q10H IV Gabapentin (NEURONTIN) 300 MG Q8H PO Hydromorphone HCl (DILAUDID) 4 MG Q4H PRN PRN PO Hydromorphone HCl (DILAUDID) 1 MG Q6H PRN PRN IV (DC) Sodium Chloride (SODIUM CHLORIDE 0.9%) 1,000 ML .Q10H IV Sodium Chloride (SODIUM CHLORIDE) 10 ML ASDIR PRN IV Physical Exam HEENT: abnl conjunctiva/sclera, dry mucosal membranes Neck: decreased range of motion Cardiovascular: normal capillary refill, regular rate rhythm Respiratory: aerating well, symmetric expansion Abdomen: tenderness, soft, no distention Extremities: decreased range of motion Musculoskeletal: decreased ROM Neuro/BOBBIN DISKER: alert, oriented X 3 Skin: abnormal color, abnormal temperature Psychiatry: normal affect, normal judgment/insight Results Findings/Data: Laboratory Tests 10/21/23 0505: [Embedded Image Not Available] 10/20/23 1655: [Embedded Image Not Available] Laboratory Tests 10/20 0505 Chemistry Sodium (134 - 147 mEq/L) 142 Potassium (3.4 - 5.0 mEq/L) 3.9 Chloride (100 - 108 mEq/L) 113 H Carbon Dioxide (21 - 33 mEq/l) 26 Anion Gap (0 - 20) 7 BUN (7 - 25 mg/dL) < 5 L Creatinine (0.6 - 1.3 mg/dL) 0.9 Glomerular Filtr Rate (105 - 110) 112.1 H Glucose (77 - 141 mg/dL) 73 L Calcium (8.0 - 10.5 mg/dL) 8.2 Total Bilirubin (0.0 - 1.0 mg/dL) 1.30 H AST (8 - 34 IUnit/L) 15 ALT (10 - 49 IUnit/L) 13 Total Alk Phosphatase (20 - 125 IUnit/L) 48 Total Protein (6.4 - 8.2 g/dL) 6.0 L Albumin (3.4 - 5.0 g/dL) 3.40 Lipase (13 - 57 U/L) 29 Laboratory Tests 10/20 10/19 0505 1655 Hematology WBC (4.5 - 11.0 x10 3/uL) 4.6 RBC (4.00 - 5.60 x10 6/uL) 3.72 L Hgb (12.5 - 16.9 g/dL) 10.3 L 10.9 L Hct (37.5 - 50.7 %) 33.3 L 34.2 L MCV (81.0 - 99.0 fL) 89.5 MCH (27.0 - 33.0 pg) 27.7 MCHC (33.0 - 37.0 g/dL) 30.9 L RDW (11.5 - 14.5 %) 14.2 Plt Count (150 - 400 x10 3/uL) 268 MPV (7.0 - 9.0 fL) 10.5 H Neut % (Auto) (56.0 - 77.0 %) 43.1 L Lymph % (Auto) (14.0 - 32.0 %) 42.9 H Randolph % (Auto) (4.8 - 9.0 %) 8.5 Eos % (Auto) (0.3 - 3.7 %) 4.2 H Baso % (Auto) (0.0 - 2.0 %) 0.9 Neut # (Auto) (2.0 - 7.6 x10 3/uL) 1.97 L Lymph # (Auto) (1.0 - 3.8 x10 3/uL) 1.96 Randolph # (Auto) (0.1 - 0.8 x10 3/uL) 0.39 Eos # (Auto) (0.0 - 0.2 x10 3/uL) 0.19 Baso # (Auto) (0.0 - 0.2 x10 3/uL) 0.04 Abs Immat Gran (auto) (0.00 - 0.03 x10 3/uL) 0.02 Immature Gran % (0.0 - 2.0 %) 0.4 Nucleated RBC % (0 - 0 %) 0.0 Nucleated RBCs # (Man) (0.0 - 0.1 x10 3/uL) 0.00 Diagnosis, Assessment Plan Free Text A P: abdominal pain, chronic abnormal ct, colitis elevated lipase, mild post prandial dyspepsia nausea/vomiting - chronic pain mgmt - diet as tolerated - ivf - outpatient colonoscopy - mri findings reassuring - Quoc Titus 10/23/23 1206: Attestations Physician Attestation Agree w/findings plan: Agree with the findings and plan as documented by Burton HSU at 1350 at 1206 RPT #:[id number] END OF REPORT [facility] 2023-10-21 07:36:00 [facility] ([facility]) Pain Management Progress Note REPORT#:[id number] REPORT STATUS: Signed REPORT INITIALIZATION DATE:10/21/23 TIME: 735 PATIENT: TANNER BENDER UNIT #: [id number] ROOM/BED: [place] [address] : 84 AGE: 37 SEX: M ATTEND: Aretha Diallo MD ADM AUTHOR: Loi Cerda RUBBER GOODS INSPECTOR TESTER REPT SERVICE DT/TIME: 10/21/23 0736 * ALL edits or amendments must be made on the electronic/computer document * Loi Cerda 10/21/23 0736: Subjective Chief complaint: Patient seen and examined. Chart/MAR reviewed Patient states the abdominal pain remains severe. He is having difficulty eating due to pain. Requesting medication adjustment. Will adjust medications for 24 hours. Patient being seen for abdominal pain, acute on chronic pancreatitis, chronic pain syndrome, polyneuropathy, Patient is still requiring medications to help with managing current problems Patient is requiring IV narcotics to help manage breakthrough pain No fever/chills, chest pain, orthopnea, nausea/vomiting, pruritus, or hallucinations. 14-point ROS undertaken and is unremarkable except as noted. Objective General VS/I O: Vital Signs Date Temp Pulse Resp B/P B/P Mean Pulse Ox FiO2 10/19-10/20 97.3-97.5 49-56 12-14 106-149/64-91 78.3-103 94-100 Last Documented: Result Date Time Pulse Ox 95 10/20 0603 B/P 106/65 10/20 0603 B/P Mean 78.3 10/20 0603 Temp 97.3 10/20 702 Pulse 53 10/20 702 Resp 14 10/20 702 O2 Delivery Room air 10/19 0214 24 hour I O ending at 0700: 10/20 0710/19 1900 Intake Total Output Total Balance Number Voids 1 PATIENT WEIGHT: Weight (lb): Weight (oz): Weight (kg): 60.000 Medications: Active Meds + DC'd Last 24 Hrs Pantoprazole (PROTONIX) 40 MG DAILY@0600 PO Ondansetron HCl (ZOFRAN) 4 MG Q6H PRN PRN IV Albuterol Sulfate (ALBUTEROL SULFATE) 2.5 MG RTQ6H PRN PRN NEB Alprazolam (XANAX) 2 MG TID PRN PRN PO Ketorolac Tromethamine (TORADOL) 15 MG Q6HR IV Lactated Ringer's (LACTATED RINGERS) 1,000 ML BOLUS ONCE ONE IV (DC) Lactated Ringer's (LACTATED RINGERS) 1,000 ML .Q10H IV Gabapentin (NEURONTIN) 300 MG Q8H PO Hydromorphone HCl (DILAUDID) 4 MG Q4H PRN PRN PO Hydromorphone HCl (DILAUDID) 1 MG Q6H PRN PRN IV Sodium Chloride (SODIUM CHLORIDE 0.9%) 1,000 ML .Q10H IV Sodium Chloride (SODIUM CHLORIDE) 10 ML ASDIR PRN IV Physical Exam General appearance: alert, awake, oriented, no respiratory distress Head/eyes: atraumatic, EOMI, normocephalic, PERRLA ENT: normal nose, moist mucosal membranes Neck: no JVD, supple/no meningismus Cardiovascular: regular rate rhythm Respiratory: no distress, symmetric expansion Abdomen: soft, TTP over the abdomen Extremities: moves all, no clubbing, no cyanosis Neuro/BOBBIN DISKER: alert, oriented X 3, reflexes equal bilat Skin: dry Psychiatry: normal affect Results Findings/data: Laboratory Tests: 10/20 10/19 10/19 0505 1655 0928 Chemistry Sodium (134 - 147 mEq/L) 142 Potassium (3.4 - 5.0 mEq/L) 3.9 Chloride (100 - 108 mEq/L) 113 H Carbon Dioxide (21 - 33 mEq/l) 26 Anion Gap (0 - 20) 7 BUN (7 - 25 mg/dL) < 5 L Creatinine (0.6 - 1.3 mg/dL) 0.9 Glomerular Filtr Rate (105 - 110) 112.1 H Glucose (77 - 141 mg/dL) 73 L Calcium (8.0 - 10.5 mg/dL) 8.2 Total Bilirubin (0.0 - 1.0 mg/dL) 1.30 H AST (8 - 34 IUnit/L) 15 ALT (10 - 49 IUnit/L) 13 Total Alk Phosphatase (20 - 125 IUnit/L) 48 Total Protein (6.4 - 8.2 g/dL) 6.0 L Albumin (3.4 - 5.0 g/dL) 3.40 Lipase (13 - 57 U/L) 29 Hematology WBC (4.5 - 11.0 x10 3/uL) 4.6 RBC (4.00 - 5.60 x10 6/uL) 3.72 L Hgb (12.5 - 16.9 g/dL) 10.3 L 10.9 L 11.8 L Hct (37.5 - 50.7 %) 33.3 L 34.2 L 37.1 L MCV (81.0 - 99.0 fL) 89.5 MCH (27.0 - 33.0 pg) 27.7 MCHC (33.0 - 37.0 g/dL) 30.9 L RDW (11.5 - 14.5 %) 14.2 Plt Count (150 - 400 x10 3/uL) 268 MPV (7.0 - 9.0 fL) 10.5 H Neut % (Auto) (56.0 - 77.0 %) 43.1 L Lymph % (Auto) (14.0 - 32.0 %) 42.9 H Randolph % (Auto) (4.8 - 9.0 %) 8.5 Eos % (Auto) (0.3 - 3.7 %) 4.2 H Baso % (Auto) (0.0 - 2.0 %) 0.9 Neut # (Auto) (2.0 - 7.6 x10 3/uL) 1.97 L Lymph # (Auto) (1.0 - 3.8 x10 3/uL) 1.96 Randolph # (Auto) (0.1 - 0.8 x10 3/uL) 0.39 Eos # (Auto) (0.0 - 0.2 x10 3/uL) 0.19 Baso # (Auto) (0.0 - 0.2 x10 3/uL) 0.04 Abs Immat Gran (auto) (0.00 - 0.03 x10 3/uL) 0.02 Immature Gran % (0.0 - 2.0 %) 0.4 Nucleated RBC % (0 - 0 %) 0.0 Nucleated RBCs # (Man) (0.0 - 0.1 x10 3/uL) 0.00 Microbiology: Date/Time Procedure - Status Source Growth 10/19 153 Campylobacter Culture - ORD STOOL 10/19 153 Escherichia coli 0157 Culture - ORD STOOL 10/19 1538 Stool Culture - ORD STOOL Diagnosis, Assessment Plan Free text A P: This is a 37-year-old male who presents with the following: Abdominal pain, acute on chronic pancreatitis -Lipase mildly elevated -Dilaudid 4 mg PO q4h PRN pain scale 4-10, first line (10/19) -incr Dilaudid 1 mg IV q4h PRN x24hrs pain scale 7-10, second line (10/20) -Toradol 15 mg IV q6h x8 doses (10/19) Chronic pain syndrome -Per AUTO ADJUDICATION SPECIALIST last filled Dilaudid 4 mg #20 on 08/07/2023, prior use of Mason, Tylenol #3, and Tramadol -Pain medication as outlined above Polyneuropathy -Gabapentin 300 mg PO q8h (10/19) Disposition: Rx: Pharmacy: [facility] ([id number]) 5208 [facility] [id number] Past medical history: Asthma, Pancreatitis Past surgical history: None listed Family history: Noncontributory Social history: Denies alcohol, tobacco, or illicit drug use Allergies: Penicillins All pertinent diagnostics/labs from the last 24 hours and during the course of the admission were reviewed. Plan discussed with the patient and the nurse. All questions were answered. Patient will be monitored for deleterious side effects associated with opioids and sedative medications. Medications will be adjusted further clinical course. Risks versus benefits of opioid medications were reviewed to include, but not limited to respiratory depression, accidental overdose, altered mental status, sudden , constipation which could result in bowel obstruction, seizures, withdrawal, dependency/addiction, risk for falls. Goals: Daily pain control. Case reviewed and discussed with Dr. Polanco who agrees with plan of care. [place] [employer] ADJUDICATION SPECIALIST records reviewed: Tanner Bender 1985 3 M [address] [place] [address] RX Summary Summary Total Prescriptions 9 Total Private Pay 0 Total Prescribers 8 Total Pharmacies 2 08/07/2023 08/07/2023 3 HYDROMORPHONE 4 MG TABLET 20.00 5 [facility] [id number] [facility] ( 0157) 0 80.00 M[place] Comm Ins [place] 02/03/2023 02/03/2023 3 DIAZEPAM 5 MG TABLET 10.00 2 Pe Patel [id number] [facility] (0157) 0 2.50 LME Comm Ins [place] 11/21/2022 11/21/2022 2 HYDROCODONE-ACETAMIN 5-325 MG 28.00 7 Da Pan [id number] Wal (0157) 0 20.00 MME Work[place] Comp [place] 11/13/2022 11/13/2022 2 ACETAMINOPHEN-COD #3 TABLET 30.00 5 Da Pan [id number] [facility] ( 0157) 0 27.00 [place] 10/31/2022 10/30/2022 2 TRAMADOL HCL 50 MG TABLET 12.00 3 [facility] [id number] Wal ( 0157) 0 40.00 [place] 10/05/2022 10/04/2022 2 TRAMADOL HCL 50 MG TABLET 20.00 5 [place] [id number] [facility] ( 0157) 0 40.00 [place] 09/27/2022 09/27/2022 2 ACETAMINOPHEN-COD #[address] [facility] [id number] [facility] ( 3745) 0 33.75 [place] 01/01/2022 01/01/2022 1 HYDROCODONE-ACETAMIN 7.5-325 12.00 3 Ri Andrew [id number] [facility] (0157) 0 30.00 [place] 12/13/2021 12/13/2021 1 HYDROCODONE-ACETAMIN 10-325 MG 5.00 5 Je Lyle [id number] [facility] (0157) 0 10.00 M[place] Comm Ins [place] [employer] ([id number]) [address] [place] [address] [facility] ([id number]) 1267 [facility] [address] Corie Polanco 11/01/23 0809: Attestations Physician Attestation Agree w/findings plan: The patient was seen and examined by the mid-level. We developed the care plan, which was continued by the mid-level provider to the best of my knowledge. I was immediately available. at 1624 at 0883 RPT #:[id number] END OF REPORT [facility] 2023-10-20 15:17:00 [facility] ([facility]) Pain Management Consult Note REPORT#:[id number] REPORT STATUS: Signed REPORT INITIALIZATION DATE:10/20/23 TIME: 1516 PATIENT: TANNER BENDER UNIT #: [id number] ROOM/BED: [place] [address] : 84 AGE: 37 SEX: M ATTEND: Aretha Diallo MD ADM AUTHOR: Loi Cerda RUBBER GOODS INSPECTOR TESTER REPT SERVICE DT/TIME: 10/20/231516 * ALL edits or amendments must be made on the electronic/computer document * Loi Cerda 10/20/23 151: History of Present Illness Requesting clinician: Amrit Edmondson MD Chief complaint: Abdominal pain PCP: PCP: No Primary or Family Physician ATT: Aretha Diallo MD HPI: This is a 37-year-old male who presented to the ED with abdominal pain. He has a history of chronic pancreatitis. He has been having nausea and vomiting. The pain is sore, aching, throbbing, and deep. The pain worsens with eating. The pain improves with rest and medication. Pain is rated 7/10. He takes Dilaudid 2 mg as an outpatient. Pain management has been asked to assist with pain control. Review of Systems GI: abdominal pain, nausea, vomiting. All systems rev neg: except as marked History - Adult longitudinal Past medical history: Reports: Asthma, Pancreatitis. Additional medical history: Pancreatitis Past surgical history: Denies: Abdominal surgery. Family history: Denies: CAD < 40 yrs old. Additional family history: n/c Alcohol use: Denies EtOH use Drug use: Denies recreational drugs Smoking status for patients 13 years old or older: Never Smoker Other social history: Primary family support Additional social history: family hx- unknown Medications: Home Medications: Medication Dose/Rte/Freq Days Qty Entered Last Max Daily Dose Reviewed ALPRAZolam (XANAX) 2 MG PO 07/13/22 10/20/23 Strength: 2 MG TAB TID PRN ANXIETY 2307 1304 HYDROmorphone (DILAUDID) 2 MG PO 11/11/22 10/20/23 Strength: 2 MG TAB Q4H PRN PRN PAIN 1341 1305 SCALE 7-10 AMYLASE/LIPASE/PROTEA 24,000 UNITS PO 02/02/23 10/20/23 120,000/24,000/76,000 U TID MEALS 1915 1305 (CREON 24) Strength: 24-76-120K CAP. ALBUTEROL 2 PUFF INH RTQ6H 11/11/22 10/20/23 (PROAIR DIGIHALER 90 1017 1305 MCG/ACT 0.65 GM) Strength: 90 MCG INHALER DICYCLOMINE (BENTYL) 20 MG PO QID 30 09/03/23 10/20/23 Strength: 20 MG TAB 0108 1305 Current Hospital Medications: Central Nervous System Agents Sig/José Miguel Start time Last Medication Dose Route Stop Time Status Admin Hydromorphone HCl 0.5 MG X1ED STA 10/19 0428 DC 10/19 (DILAUDID) IV 10/19 0429 0457 Morphine Sulfate 4 MG X1ED STA 10/19 0149 DC 10/19 (morphine SULFATE) IV 10/19 0150 0245 Electrolytic, Caloric, And Sneha Sig/José Miguel Start time Last Medication Dose Route Stop Time Status Admin Sodium Chloride 1,000 ML .Q10H 10/19 1115 AC (SODIUM CHLORIDE IV 01/17 1114 0.9%) Sodium Chloride 10 ML ASDIR PRN 10/19 0445 AC 10/19 (SODIUM CHLORIDE) IV 01/17 0444 0456 Lactated Ringer's 1,000 ML X1ED STA 10/19 0433 DC 10/19 (LACTATED RINGERS) IV 10/19 0434 0456 Gastrointestinal Drugs Sig/José Miguel Start time Last Medication Dose Route Stop Time Status Admin Pantoprazole 40 MG DAILY@0600 10/20 0600 AC (PROTONIX) PO 01/18 0559 Pantoprazole Sodium 80 MG X1ED STA 10/19 0433 DC 10/19 (PROTONIX) IV 10/19 0434 0455 Prochlorperazine 10 MG X1ED STA 10/19 0433 DC 10/19 Edisylate IV 10/19 0434 0456 (COMPAZINE) Ondansetron HCl 4 MG X1ED STA 10/19 0149 DC 10/19 (ZOFRAN) IV 10/19 0150 0245 Allergies: Coded Allergies: Penicillins (Severe, THROAT SWELLS UP 06/30/23) Objective Physical Exam VS/I O: Last Documented: Result Date Time Pulse Ox 97 10/19 1330 B/P 126/91 10/19 1330 B/P Mean 103 10/19 1330 Pulse 55 10/19 1330 O2 Delivery Room air 10/19 021 Temp 97.9 10/19 0214 Resp 16 10/19 0214 24 hour I O ending at 0700: 10/19 0700 10/18 1900 Intake Total Output Total Balance Patient 60 kg Weight Weight Stated/Reported Measurement Method PATIENT WEIGHT: Weight (lb): Weight (oz): Weight (kg): 60.000 General appearance: alert, awake Head/eyes: atraumatic, EOMI, normocephalic, PERRLA ENT: normal nose Neck: no JVD, supple/no meningismus Cardiovascular: regular rate rhythm Respiratory: no distress, symmetric expansion Abdomen: soft, TTP over the abdomen Extremities: moves all, no clubbing, no cyanosis Neuro/BOBBIN DISKER: alert, oriented X 3, reflexes equal bilat Skin: dry, warm Psychiatry: normal affect Results Findings/data: Laboratory Tests: 10/19 10/19 10/19 0928 0309 0210 Chemistry Sodium (134 - 147 mEq/L) 138 Potassium (3.4 - 5.0 mEq/L) 3.4 Chloride (100 - 108 mEq/L) 107 Carbon Dioxide (21 - 33 mEq/l) 25 Anion Gap (0 - 20) 10 BUN (7 - 25 mg/dL) 7 Creatinine (0.6 - 1.3 mg/dL) 0.9 Glomerular Filtr Rate (105 - 110) 112.1 H Glucose (77 - 141 mg/dL) 109 Calcium (8.0 - 10.5 mg/dL) 8.3 Total Bilirubin (0.0 - 1.0 mg/dL) 1.00 Direct Bilirubin (0.1 - 0.3 MG/DL) 0.40 H Indirect Bilirubin (MG/DL) 0.60 AST (8 - 34 IUnit/L) 19 ALT (10 - 49 IUnit/L) 17 Total Alk Phosphatase (20 - 125 IUnit/L) 49 Total Protein (6.4 - 8.2 g/dL) 6.5 Albumin (3.4 - 5.0 g/dL) 3.70 Lipase (13 - 57 U/L) 152 H Hematology WBC (4.5 - 11.0 x10 3/uL) 5.8 RBC (4.00 - 5.60 x10 6/uL) 4.00 Hgb (12.5 - 16.9 g/dL) 11.8 L 11.3 L Hct (37.5 - 50.7 %) 37.1 L 36.0 L MCV (81.0 - 99.0 fL) 90.0 MCH (27.0 - 33.0 pg) 28.3 MCHC (33.0 - 37.0 g/dL) 31.4 L RDW (11.5 - 14.5 %) 14.2 Plt Count (150 - 400 x10 3/uL) 324 MPV (7.0 - 9.0 fL) 10.5 H Neut % (Auto) (56.0 - 77.0 %) 41.6 L Lymph % (Auto) (14.0 - 32.0 %) 43.6 H Randolph % (Auto) (4.8 - 9.0 %) 8.8 Eos % (Auto) (0.3 - 3.7 %) 4.5 H Baso % (Auto) (0.0 - 2.0 %) 1.2 Neut # (Auto) (2.0 - 7.6 x10 3/uL) 2.42 Lymph # (Auto) (1.0 - 3.8 x10 3/uL) 2.54 Randolph # (Auto) (0.1 - 0.8 x10 3/uL) 0.51 Eos # (Auto) (0.0 - 0.2 x10 3/uL) 0.26 H Baso # (Auto) (0.0 - 0.2 x10 3/uL) 0.07 Abs Immat Gran (auto) (0.00 - 0.03 x10 3/uL) 0.02 Immature Gran % (0.0 - 2.0 %) 0.3 Nucleated RBC % (0 - 0 %) 0.0 Nucleated RBCs # (Man) (0.0 - 0.1 x10 3/uL) 0.00 Urines Urine Color (YEL/STRAW) YELLOW Urine Appearance (CLEAR) CLEAR Urine pH (5.0 - 7.0) 5.0 Ur Specific [place] (1.005 - 1.030) 1.010 Urine Protein (NEGATIVE) NEGATIVE Urine Glucose (UA) (NEGATIVE) NEGATIVE Urine Ketones (NEGATIVE) NEGATIVE Urine Blood (NEGATIVE) NEGATIVE Urine Nitrite (NEGATIVE) NEGATIVE Urine Bilirubin (NEGATIVE) NEGATIVE Urine Urobilinogen (0.2 - 1.0 mg/dL) 0.2 Ur Leukocyte Esterase (NEGATIVE) NEGATIVE Urine RBC (0 - 3 RBC/HPF) 0-3 Urine WBC (0 - 3 WBC/HPF) 0-3 Ur Squamous Epith Cells (NONE SEEN /HPF) 0-5 Urine Bacteria (NONE SEEN /HPF) NONE SEEN Diagnosis, Assessment Plan Free text A P: This is a 37-year-old male who presents with the following: Abdominal pain, acute on chronic pancreatitis -Lipase mildly elevated -Start Dilaudid 4 mg PO q4h PRN pain scale 4-10, first line (10/19) -Start Dilaudid 1 mg IV q6h PRN pain scale 7-10, second line (10/19) -Start Toradol 30 mg IV q6h x8 doses (10/19) Chronic pain syndrome -Per AUTO ADJUDICATION SPECIALIST last filled Dilaudid 4 mg #20 on 08/07/2023, prior use of Mason, Tylenol #3, and Tramadol -Pain medication as outlined above Polyneuropathy -Start Gabapentin 300 mg PO q8h (10/19) Disposition: Rx: Pharmacy: [facility] ([id number]) [address] [place] [address] Past medical history: Asthma, Pancreatitis Past surgical history: None listed Family history: Noncontributory Social history: Denies alcohol, tobacco, or illicit drug use Allergies: Penicillins All pertinent diagnostics/labs from the last 24 hours and during the course of the admission were reviewed. Plan discussed with the patient and the nurse. All questions were answered. Patient will be monitored for deleterious side effects associated with opioids and sedative medications. Medications will be adjusted further clinical course. Risks versus benefits of opioid medications were reviewed to include, but not limited to respiratory depression, accidental overdose, altered mental status, sudden , constipation which could result in bowel obstruction, seizures, withdrawal, dependency/addiction, risk for falls. Goals: Daily pain control. Case reviewed and discussed with Dr. Polanco who agrees with plan of care. [facility] records reviewed: Tanner Bender 1985 [address] [place] [address] RX Summary Summary Total Prescriptions 9 Total Private Pay 0 Total Prescribers 8 Total Pharmacies 2 08/07/2023 08/07/2023 3 HYDROMORPHONE 4 MG TABLET 20.00 5 [facility] [id number] [facility] ( 0157) 0 80.00 MME Comm Ins [place] 02/03/2023 02/03/2023 3 DIAZEPAM 5 MG TABLET 10.00 2 Pe Patel [id number] [facility] (0157) 0 2.50 LME Comm Ins [place] 11/21/2022 11/21/2022 2 HYDROCODONE-ACETAMIN 5-325 MG 28.00 7 Da Pan [id number] [facility] (0157) 0 20.00 MME Worker[place] Comp [place] 11/13/2022 11/13/2022 2 ACETAMINOPHEN-COD #3 TABLET 30.00 5 Da Pan [id number] [facility] ( 0157) 0 27.00 [place] Ins [place] 10/31/2022 10/30/2022 2 TRAMADOL HCL 50 MG TABLET 12.00 3 [facility] [id number] [facility] ( 0157) 0 40.00 [place] 10/05/2022 10/04/2022 2 TRAMADOL HCL 50 MG TABLET 20.00 5 [place] [id number] [facility] ( 0157) 0 40.00 [place] 09/27/2022 09/27/2022 2 ACETAMINOPHEN-COD #3 TABLET 15.00 2 [facility] [id number] Wal ( 8568) 0 33.75 MME Comm Ins [place] 01/01/2022 01/01/2022 1 HYDROCODONE-ACETAMIN 7.5-325 12.00 3 [place] [id number] [facility] (0157) 0 30.00 [place]ME [place] 12/13/2021 12/13/2021 1 HYDROCODONE-ACETAMIN 10-325 MG 5.00 5 Je Lyle [id number] [facility] (0157) 0 10.00 MME Comm Ins [place] [employer] ([id number]) [address] [place] [id number] [employer] ([id number]) 4887 [facility] [place] [id number] Corie Polanco 10/29/23 1432: Attestations Physician Attestation Agree w/findings plan: The patient was seen and examined by the mid-level. We developed the care plan, which was continued by the mid-level provider to the best of my knowledge. I was immediately available. at 1538 at [phone] RPT #:[id number] END OF REPORT [facility] 2023-10-20 13:43:00 [facility] ([facility]) Hospitalist History Physical REPORT#:[id number] REPORT STATUS: Signed REPORT INITIALIZATION DATE:10/20/23 TIME: 1342 PATIENT: TANNER BENDER UNIT #: [id number] ROOM/BED: [place] [address] : 84 AGE: 37 SEX: M ATTEND: Aretha Diallo MD ADM AUTHOR: Aretha Diallo MD REPT SERVICE DT/TIME: 10/20/23 1343 * ALL edits or amendments must be made on the electronic/computer document * History of Present Illness HPI Chief complaint: abdominal pain HPI: 37-year-old male history of cholecystectomy, drug-seeking behavior, chronic pancreatitis, narcotic bowel syndrome, gastritis, presented to the emergency department for abdominal pain. Patient reports severe, stabbing abdominal pain, epigastrium, left upper quadrant, similar to prior episodes of acute on chronic pancreatitis flares, worsening over the last 5 days patient reports his symptoms associated with nausea and vomiting, nonbloody patient does report over the last 24 hours he has noticed melanotic stools, superimposed on worsening diarrhea. He does feel a little dizzy at times. Otherwise 12 point review of systems unremarkable except what is listed in hpi. Admission labs reviewed History Past medical history: Reports: Asthma, Pancreatitis. Additional medical history: Pancreatitis Past surgical history: Denies: Abdominal surgery. Family history: Denies: CAD < 40 yrs old. Additional family history: n/c Alcohol use: Denies EtOH use Drug use: Denies recreational drugs Smoking status for patients 13 years old or older: Never Smoker Other social history: Primary family support Additional social history: family hx- unknown Medication/Allergy-Vaccine Hx Allergies: Coded Allergies: Penicillins (Severe, THROAT SWELLS UP 06/30/23) Objective General VS/I O: Vital Signs: Date Time Temp Pulse Resp B/P B/P Pulse O2 O2 Flow FiO2 Mean Ox Delivery Rate 07/08 0700 46 121/70 89 99 07/08 0630 50 111/65 82 96 07/08 0600 48 117/64 84 95 07/08 0530 48 110/67 84 99 07/08 0500 56 129/87 105 100 07/08 0430 62 118/61 82 98 07/08 0400 50 113/74 89 98 07/08 0245 55 100 07/08 0230 50 120/82 95 100 07/08 0214 97.9 53 16 128/80 99 98 Room air 24 hour I O ending at 0700: 07/08 0700 07/07 1900 Intake Total Output Total Balance Patient 60 kg Weight Weight Stated/Reported Measurement Method PATIENT WEIGHT: Weight (lb): Weight (oz): Weight (kg): 60.000 Medications: Active Meds + DC'd Last 24 Hrs Sodium Chloride (SODIUM CHLORIDE 0.9%) 1,000 ML .Q10H IV Sodium Chloride (SODIUM CHLORIDE) 10 ML ASDIR PRN IV Lactated Ringer's (LACTATED RINGERS) 1,000 ML X1ED STA IV (DC) Pantoprazole Sodium (PROTONIX) 80 MG X1ED STA IV (DC) Prochlorperazine Edisylate (COMPAZINE) 10 MG X1ED STA IV (DC) Hydromorphone HCl (DILAUDID) 0.5 MG X1ED STA IV (DC) Morphine Sulfate (morphine SULFATE) 4 MG X1ED STA IV (DC) Ondansetron HCl (ZOFRAN) 4 MG X1ED STA IV (DC) Physical Exam General appearance: alert, awake Head/Eyes: normal conjunctiva/sclera Cardiovascular: normal heart sounds, regular rate rhythm Respiratory: clear to auscultation, no distress Abdomen: normal bowel sounds, soft Extremities: no edema Neuro/BOBBIN DISKER: alert, normal speech, no motor deficits Skin: no rash Psychiatry: normal affect, normal mood Diagnosis, Assessment Plan Free Text DxA P Notes Free Text DxA P Notes: 37 yo male presenting with abdominal pain Impression: ? Acute on Chronic pancreatitis- Lipase mildly elevated History of cholecystectomy History of Drug-seeking behavior History of chronic pancreatitis History of narcotic bowel syndrome Gastritis Plan: - ivf - GI on board- await further input - abdomen is benign on exam - pain management consulted - scd's - am labs - resume home medications when available - Hgb stable at 1301 RPT #:[id number] END OF REPORT [facility] 2023-10-20 08:52:00 [facility] ([facility]) GE Consultation Note REPORT#:[id number] REPORT STATUS: Signed REPORT INITIALIZATION DATE:10/20/23 TIME: 851 PATIENT: TANNER BENDER UNIT #: [id number] ROOM/BED: [place] [address] : 84 AGE: 37 SEX: M ATTEND: Aretha Diallo MD ADM AUTHOR: Quoc Alvarenga MD REPT SERVICE DT/TIME: 10/20/23 0852 * ALL edits or amendments must be made on the electronic/computer document * History of Present Illness HPI: 37 year old man with chronic pancreatitis, presents with abdominal pain, severity moderate, onset block captain, associated with post prandial dyspepsia, nausea and small volume emesis. History - Adult longitudinal Past medical history: Reports: Asthma, Pancreatitis. Additional medical history: Pancreatitis Past surgical history: Denies: Abdominal surgery. Family history: Denies: CAD < 40 yrs old. Additional family history: n/c Alcohol use: Denies EtOH use Drug use: Denies recreational drugs Smoking status for patients 13 years old or older: Never Smoker Other social history: Primary family support Additional social history: family hx- unknown Allergies: Coded Allergies: Penicillins (Severe, THROAT SWELLS UP 06/30/23) Review of Systems Additional notes: 10 point ros neg except hpi Objective Physical Exam VS/I O: Last Documented: Result Date Time Pulse Ox 97 10/19 1330 B/P 126/91 10/19 1330 B/P Mean 103 10/19 1330 Pulse 55 10/19 1330 O2 Delivery Room air 10/19 213 Temp 36.6 10/19 213 Resp 16 10/19 213 24 hour I O ending at 0700: 10/19 0700 10/18 1900 Intake Total Output Total Balance Patient 60 kg Weight Weight Stated/Reported Measurement Method PATIENT WEIGHT: Weight (lb): Weight (oz): Weight (kg): 60.000 Medications: Active Meds + DC'd Last 24 Hrs Pantoprazole (PROTONIX) 40 MG DAILY@0600 PO Ketorolac Tromethamine (TORADOL) 15 MG Q6HR IV Gabapentin (NEURONTIN) 300 MG Q8H PO Hydromorphone HCl (DILAUDID) 4 MG Q4H PRN PRN PO Hydromorphone HCl (DILAUDID) 1 MG Q6H PRN PRN IV Sodium Chloride (SODIUM CHLORIDE 0.9%) 1,000 ML .Q10H IV Sodium Chloride (SODIUM CHLORIDE) 10 ML ASDIR PRN IV Lactated Ringer's (LACTATED RINGERS) 1,000 ML X1ED STA IV (DC) Pantoprazole Sodium (PROTONIX) 80 MG X1ED STA IV (DC) Prochlorperazine Edisylate (COMPAZINE) 10 MG X1ED STA IV (DC) Hydromorphone HCl (DILAUDID) 0.5 MG X1ED STA IV (DC) Morphine Sulfate (morphine SULFATE) 4 MG X1ED STA IV (DC) Ondansetron HCl (ZOFRAN) 4 MG X1ED STA IV (DC) General appearance: alert, awake HEENT: abnl conjunctiva/sclera, dry mucosal membranes Neck: decreased range of motion Cardiovascular: normal capillary refill, regular rate rhythm Respiratory: aerating well, symmetric expansion Abdomen: tenderness, soft, no distention Extremities: decreased range of motion Musculoskeletal: decreased ROM Neuro/BOBBIN DISKER: alert, oriented X 3 Skin: abnormal color, abnormal temperature Psychiatry: normal affect, normal judgment/insight Results Findings/Data: Laboratory Tests 10/20/23927: [Embedded Image Not Available] 10/20/23209: [Embedded Image Not Available] Laboratory Tests 10/19 209 Chemistry Sodium (134 - 147 mEq/L) 138 Potassium (3.4 - 5.0 mEq/L) 3.4 Chloride (100 - 108 mEq/L) 107 Carbon Dioxide (21 - 33 mEq/l) 25 Anion Gap (0 - 20) 10 BUN (7 - 25 mg/dL) 7 Creatinine (0.6 - 1.3 mg/dL) 0.9 Glomerular Filtr Rate (105 - 110) 112.1 H Glucose (77 - 141 mg/dL) 109 Calcium (8.0 - 10.5 mg/dL) 8.3 Total Bilirubin (0.0 - 1.0 mg/dL) 1.00 Direct Bilirubin (0.1 - 0.3 MG/DL) 0.40 H Indirect Bilirubin (MG/DL) 0.60 AST (8 - 34 IUnit/L) 19 ALT (10 - 49 IUnit/L) 17 Total Alk Phosphatase (20 - 125 IUnit/L) 49 Total Protein (6.4 - 8.2 g/dL) 6.5 Albumin (3.4 - 5.0 g/dL) 3.70 Lipase (13 - 57 U/L) 152 H Laboratory Tests 10/19 Hematology WBC (4.5 - 11.0 x10 3/uL) 5.8 RBC (4.00 - 5.60 x10 6/uL) 4.00 Hgb (12.5 - 16.9 g/dL) 11.8 L 11.3 L Hct (37.5 - 50.7 %) 37.1 L 36.0 L MCV (81.0 - 99.0 fL) 90.0 MCH (27.0 - 33.0 pg) 28.3 MCHC (33.0 - 37.0 g/dL) 31.4 L RDW (11.5 - 14.5 %) 14.2 Plt Count (150 - 400 x10 3/uL) 324 MPV (7.0 - 9.0 fL) 10.5 H Neut % (Auto) (56.0 - 77.0 %) 41.6 L Lymph % (Auto) (14.0 - 32.0 %) 43.6 H Randolph % (Auto) (4.8 - 9.0 %) 8.8 Eos % (Auto) (0.3 - 3.7 %) 4.5 H Baso % (Auto) (0.0 - 2.0 %) 1.2 Neut # (Auto) (2.0 - 7.6 x10 3/uL) 2.42 Lymph # (Auto) (1.0 - 3.8 x10 3/uL) 2.54 Randolph # (Auto) (0.1 - 0.8 x10 3/uL) 0.51 Eos # (Auto) (0.0 - 0.2 x10 3/uL) 0.26 H Baso # (Auto) (0.0 - 0.2 x10 3/uL) 0.07 Abs Immat Gran (auto) (0.00 - 0.03 x10 3/uL) 0.02 Immature Gran % (0.0 - 2.0 %) 0.3 Nucleated RBC % (0 - 0 %) 0.0 Nucleated RBCs # (Man) (0.0 - 0.1 x10 3/uL) 0.00 Laboratory Tests 10/19 0309 Urines Urine Color (YEL/STRAW) YELLOW Urine Appearance (CLEAR) CLEAR Urine pH (5.0 - 7.0) 5.0 Ur Specific [place] (1.005 - 1.030) 1.010 Urine Protein (NEGATIVE) NEGATIVE Urine Glucose (UA) (NEGATIVE) NEGATIVE Urine Ketones (NEGATIVE) NEGATIVE Urine Blood (NEGATIVE) NEGATIVE Urine Nitrite (NEGATIVE) NEGATIVE Urine Bilirubin (NEGATIVE) NEGATIVE Urine Urobilinogen (0.2 - 1.0 mg/dL) 0.2 Ur Leukocyte Esterase (NEGATIVE) NEGATIVE Urine RBC (0 - 3 RBC/HPF) 0-3 Urine WBC (0 - 3 WBC/HPF) 0-3 Ur Squamous Epith Cells (NONE SEEN /HPF) 0-5 Urine Bacteria (NONE SEEN /HPF) NONE SEEN Diagnosis, Assessment Plan Free Text DxA P Notes Free Text DxA P Notes: abdominal pain, chronic abnormal ct, colitis elevated lipase, mild post prandial dyspepsia nausea/vomiting - chronic pain mgmt - diet as tolerated - ivf - outpatient colonoscopy - mri findings reassuring at 1537 RPT #:[id number] END OF REPORT [facility] 2023-10-20 04:03:00 [facility] ([facility]) EMERGENCY PROVIDER REPORT REPORT#:[id number] REPORT STATUS: Signed DATE:10/20/23 TIME: 0403 PATIENT: TANNER BENDER UNIT #: [id number] ROOM/BED: [place] [address] AGE: 37 SEX: M PCP PHYS: No Primary or Family Physician SERVICE AUTHOR: Musa Langford MD * ALL edits or amendments must be made on the electronic/computer document * HPI-Abd Pain M Under 40 Free Text HPI Notes Free Text HPI Notes 37-year-old male history of cholecystectomy, drug-seeking behavior, chronic pancreatitis, narcotic bowel syndrome, gastritis, presented to the emergency department for abdominal pain. Patient reports severe, stabbing abdominal pain, epigastrium, left upper quadrant, similar to prior episodes of acute on chronic pancreatitis flares, worsening over the last 5 days patient reports his symptoms associated with intractable nausea and vomiting, nonbloody patient does report over the last 24 hours he has noticed melanotic stools, superimposed on worsening diarrhea. Patient denies chest pain, shortness of breath, fevers General Confirmed Patient Yes Patient Type New patient Initial Greet Date/Time 10/20/23 0131 PCP porter cm xpert [facility] Presentation Chief Complaint Abdominal pain, Nausea, Vomiting moderate Hx Obtained From Patient, Prior medical records Sudden in Onset? No Onset Occurred Today, Days ago, Chronic Review of Systems ROS Statements All systems rev neg except as marked. Free Text ROS Notes Free Text ROS Notes Review of systems was performed, pertinent positives and negatives noted in HPI. Past Medical History - Adult Stated Complaint ABD PAIN/N/V/D Allergies Coded Allergies: Penicillins (Severe, THROAT SWELLS UP 06/30/23) Home Medications Active Scripts DICYCLOMINE (BENTYL) 20 MG PO QID DICYCLOMINE (BENTYL) 20 MG PO QID #30 TABS Prov: 09/03/23 METOCLOPRAMIDE (REGLAN) 5 MG PO AC HS METOCLOPRAMIDE (REGLAN) 5 MG PO AC HS #60 TABS Prov: 09/03/23 DOCUSATE SODIUM (COLACE) 0 MG PO ASDIR DOCUSATE SODIUM (COLACE) 0 MG PO ASDIR #60 CAPS Prov: 08/17/23 POLYETHYLENE GLYCOL 3350 (MIRALAX) 17 GM PO ASDIR POLYETHYLENE GLYCOL 3350 (MIRALAX) 17 GM PO ASDIR #30 PACKET Prov: 08/17/23 Reported Medications ALPRAZolam (XANAX) 2 MG PO TID PRN ANXIETY HYDROmorphone (DILAUDID) 2 MG PO Q4H PRN PRN PAIN SCALE 7-10 AMYLASE/LIPASE/PROTEA 120,000/24,000/76,000 U (CREON 24) 24,000 UNITS PO TID MEALS ALBUTEROL (PROAIR DIGIHALER 90 MCG/ACT 0.65 GM) 2 PUFF INH RTQ6H Review of Nursing Notes Rapid assess notes rev Past Medical History: Reports: Asthma, Pancreatitis. Additional Medical History Pancreatitis Past Surgical History: Denies: Abdominal surgery. Family History: Denies: CAD < 40 yrs old. Additional Family History n/c Alcohol Use Denies EtOH use Drug Use Denies recreational drugs Smoking status for patients 13 years old or older: Never Smoker Other Social History Primary family support Additional Social History family hx- unknown Physical Exam Vital Signs Vital Signs First Documented: Result Date Time Pulse Ox 98 07/ 0214 B/P 128/80 07/ 0214 B/P Mean 99 /08 0214 O2 Delivery Room air / 0214 Temp 36.6 07/08 0214 Pulse 53 07/08 0214 Resp 16 / 0214 Last Documented: Result Date Time Pulse Ox 100 07/08 0245 Pulse 55 07/08 0245 B/P 120/82 07/08 0230 B/P Mean 95 07/08 0230 O2 Delivery Room air / 0214 Temp 36.6 07/08 0214 Resp 16 / 0214 Review of Vital Signs Reviewed Free Text PE Notes Free Text PE Notes GEN/CONST: awake, alert, moderate distress from pain, ill-appearing MS HEAD: normocephalic EYES: EOMI, no scleral icterus EARS/NOSE/THROAT: airway patent, mucous membranes dry MS NECK: supple, full range of motion RESPIRATORY/CHEST: No respiratory distress, no increased work of breathing, without audible wheezing CARDIOVASCULAR: normal rate and regular rhythm ABDOMEN/GI: Tender epigastrium, nonperitoneal MS BACK: painless range of motion, non-tender MS UPPER EXT: no deformity or sigificant swelling MS LOWER EXT: no deformity or sigificant swelling SKIN: warm, intact NEURO: normal speech, moves all extremities Interpretation Diagnostics Lab Results Interpretation Considerations Independ review imaging, Reviewed prior records Results Laboratory Tests 10/20/23 0210: [Embedded Image Not Available] Laboratory Tests: 10/19 10/19 0309 0210 Chemistry Sodium (134 - 147 mEq/L) 138 Potassium (3.4 - 5.0 mEq/L) 3.4 Chloride (100 - 108 mEq/L) 107 Carbon Dioxide (21 - 33 mEq/l) 25 Anion Gap (0 - 20) 10 BUN (7 - 25 mg/dL) 7 Creatinine (0.6 - 1.3 mg/dL) 0.9 Glomerular Filtr Rate (105 - 110) 112.1 H Glucose (77 - 141 mg/dL) 109 Calcium (8.0 - 10.5 mg/dL) 8.3 Total Bilirubin (0.0 - 1.0 mg/dL) 1.00 Direct Bilirubin (0.1 - 0.3 MG/DL) 0.40 H Indirect Bilirubin (MG/DL) 0.60 AST (8 - 34 IUnit/L) 19 ALT (10 - 49 IUnit/L) 17 Total Alk Phosphatase (20 - 125 IUnit/L) 49 Total Protein (6.4 - 8.2 g/dL) 6.5 Albumin (3.4 - 5.0 g/dL) 3.70 Lipase (13 - 57 U/L) 152 H Hematology WBC (4.5 - 11.0 x10 3/uL) 5.8 RBC (4.00 - 5.60 x10 6/uL) 4.00 Hgb (12.5 - 16.9 g/dL) 11.3 L Hct (37.5 - 50.7 %) 36.0 L MCV (81.0 - 99.0 fL) 90.0 MCH (27.0 - 33.0 pg) 28.3 MCHC (33.0 - 37.0 g/dL) 31.4 L RDW (11.5 - 14.5 %) 14.2 Plt Count (150 - 400 x10 3/uL) 324 MPV (7.0 - 9.0 fL) 10.5 H Neut % (Auto) (56.0 - 77.0 %) 41.6 L Lymph % (Auto) (14.0 - 32.0 %) 43.6 H Randolph % (Auto) (4.8 - 9.0 %) 8.8 Eos % (Auto) (0.3 - 3.7 %) 4.5 H Baso % (Auto) (0.0 - 2.0 %) 1.2 Neut # (Auto) (2.0 - 7.6 x10 3/uL) 2.42 Lymph # (Auto) (1.0 - 3.8 x10 3/uL) 2.54 Randolph # (Auto) (0.1 - 0.8 x10 3/uL) 0.51 Eos # (Auto) (0.0 - 0.2 x10 3/uL) 0.26 H Baso # (Auto) (0.0 - 0.2 x10 3/uL) 0.07 Abs Immat Gran (auto) (0.00 - 0.03 x10 3/uL) 0.02 Immature Gran % (0.0 - 2.0 %) 0.3 Nucleated RBC % (0 - 0 %) 0.0 Nucleated RBCs # (Man) (0.0 - 0.1 x10 3/uL) 0.00 Urines Urine Color (YEL/STRAW) YELLOW Urine Appearance (CLEAR) CLEAR Urine pH (5.0 - 7.0) 5.0 Ur Specific [place] (1.005 - 1.030) 1.010 Urine Protein (NEGATIVE) NEGATIVE Urine Glucose (UA) (NEGATIVE) NEGATIVE Urine Ketones (NEGATIVE) NEGATIVE Urine Blood (NEGATIVE) NEGATIVE Urine Nitrite (NEGATIVE) NEGATIVE Urine Bilirubin (NEGATIVE) NEGATIVE Urine Urobilinogen (0.2 - 1.0 mg/dL) 0.2 Ur Leukocyte Esterase (NEGATIVE) NEGATIVE Urine RBC (0 - 3 RBC/HPF) 0-3 Urine WBC (0 - 3 WBC/HPF) 0-3 Ur Squamous Epith Cells (NONE SEEN /HPF) 0-5 Urine Bacteria (NONE SEEN /HPF) NONE SEEN Lab Imaging Statement Laboratory radiographic studies reviewed and considered in the medical decision-making. ECG #1 Interpretation Text/Dict Note ECG was ordered and Interpreted by myself, ED physician at October 20, [id number] -ECG reveals sinus bradycardia, 53 bpm -QRS and QTc not significantly prolonged -There are hypertrophic changes, no ST elevation or ST depression suggestive of ischemia, no significant changes compared to prior EKG CPT Code 38822 Re-Evaluation MDM Free Text MDM Notes Free Text MDM Notes -I reviewed medical records and imaging studies if available in EMR; Hx obtained from patient as able -PMH most significant for elements in HPI above Patient with acute on chronic abdominal pain. History of drug-seeking behavior, although presentation is concerning for pancreatitis, worsening chronic pancreatitis, GI bleeding. Plan for Protonix, lipase, IV fluids, screening labs. Screening labs, including hematology and electrolytes, ordered to assess for risk of severe/invasive infection, anemia, electrolyte derangements, and renal function. Screen EKG also ordered given overall history, presentation Higher risk due to need for parenteral controlled substances in patient management. Will monitor patient closely for clinical improvement in symptoms, and monitor patient for any adverse reactions. )( Re-Evaluation/Progress #1 Text/Dict Note -Patient care is requiring additional/significant diagnostic testing and treatment due to concern for risk of morbidity, mortality, complications related to comorbidities, and current illness -All ordered tests were independently reviewed and interpreted by me. Notably showing: Patient with slight elevation in lipase level, borderline, presentation is consistent with acute on chronic pancreatitis, will plan admission for pain control, GI consultation given melena, serial hemoglobin levels, treatment of pancreatitis, IV fluids. I informed the hospitalist team (see disposition section for time and specific provider/team) and discussed the patient presentation, history, workup, and need for admission. The hospitalist team is aware and agrees to admission for further care and evaluation. Time of Re-Eval 0518 )( Re-Eval Status Unchanged Tissue Perfusion Reassessment Patient tissue perfusion reassessment completed. ED Course Medication(s) Ordered Medication(s) Ordered: Central Nervous System Agents Sig/José Miguel Start time Last Medication Dose Route Stop Time Status Admin Hydromorphone HCl 0.5 MG X1ED STA 10/19 0428 DC 10/19 IV 10/19 0429 0457 Morphine Sulfate 4 MG X1ED STA 10/19 0149 DC 10/19 IV 10/19 0150 0245 Electrolytic, Caloric, And Sneha Sig/José Miguel Start time Last Medication Dose Route Stop Time Status Admin Sodium Chloride 10 ML ASDIR PRN 10/19 0445 AC 10/19 IV 01/17 0444 0456 Lactated Ringer's 1,000 ML X1ED STA 10/19 0433 DC 07/08 IV /08 0434 0456 Gastrointestinal Drugs Sig/José Miguel Start time Last Medication Dose Route Stop Time Status Admin Pantoprazole Sodium 80 MG X1ED STA 10/19 0433 DC / IV /08 0434 0455 Prochlorperazine 10 MG X1ED STA 10/19 0433 DC 07/ Edisylate IV / 0434 0456 Ondansetron HCl 4 MG X1ED STA 10/19 0149 DC 07/ IV / 0150 0245 Patient Discharge Departure Vital Signs/Condition Vital Signs First Documented: Result Date Time Pulse Ox 98 07/ 0214 B/P 128/80 / 0214 B/P Mean 99 / 0214 O2 Delivery Room air / 0214 Temp 36.6 /08 0214 Pulse 53 07/08 0214 Resp 16 10/19 0214 Last Documented: Result Date Time Pulse Ox 100 / 0245 Pulse 55 / 0245 B/P 120/82 /08 0230 B/P Mean 95 07/08 0230 O2 Delivery Room air / 0214 Temp 36.6 / 0214 Resp 16 10/19 0214 All vital signs available at the time of this entry have been reviewed. Condition Guarded Clinical Impression Clinical Impression Primary Impression: Acute on chronic pancreatitis Secondary Impressions: Diarrhea, Intractable vomiting with nausea, UGIB (upper gastrointestinal bleed) Disposition Decision Hospitalize Hosp Physician Hospitalist Request Time 426 Request Date 10/20/23 )( Accepts Hospitalization Yes )( Accepted Time 426 )( Accepted Date 10/20/23 Call Information will see patient, agrees with eval, agrees with plan Discharge/Care Plan Counseled Regarding Diagnosis, Lab results, Need for admission Admit Note I have spoken with the patient and/or caregivers. I have explained the patient's condition, diagnoses and treatment plan based on the information available to me at this time. I have answered the patient's and/or caregiver's questions and addressed any concerns. The patient and/or caregivers have as good an understanding of the patient's diagnosis, condition and treatment plan as can be expected at this point. The patient has been stabilized within the capability of the emergency department. The patient will be transported for further care and management or will be moved to an observation or inpatient service. I have communicated with the staff or medical practitioner taking over this patient's care. Critical Care Time Spent (minutes): 31 Services Performed Patient management by me, Time spent at bedside, Reviewing test results, Reviewing imaging, Discussing patient care, Documentation in record Separately billable procedures excluded from time. Patient was critically ill due to: Given patient with complex comorbidities, intractable pain, life-threatening acute on chronic pancreatitis, GI bleeding, required multiple IV narcotics for pain control, careful IV fluid resuscitation, admission, the patient is at significant risk for life-threatening pathologies to multiple organ systems, including cardiovascular, respiratory, and [employer]. CC Note 2 The high probability of sudden, clinically significant deterioration in the patient's condition required the highest level of my preparedness to intervene urgently. The services I provided to this patient were to treat and/or prevent clinically significant deterioration that could result in severe disability or . Services included the following: chart data review, reviewing nursing notes and/ or old charts, documentation time, senior solutions workflow consultant collaboration regarding findings and treatment options, medication orders and management, direct patient care, re -evaluations, vital sign assessments and ordering, interpreting and reviewing diagnostic studies/lab tests. Aggregate critical care time was [31] minutes, which includes only time during which I was engaged in work directly related to the patient's care, as described above, whether at the bedside or elsewhere in the Emergency Department. It did not include time spent performing other reported procedures or the services of residents, students, nurses or physician assistants. at 0520 RPT #[id number] END OF REPORT [facility] 2023-09-08 17:03:00 [facility] ([facility]) EMERGENCY PROVIDER REPORT REPORT#:[id number] REPORT STATUS: Signed DATE:09/08/23 TIME: 1702 PATIENT: TANNER BENDER UNIT #: [id number] ROOM/BED: AGE: 37 SEX: M PCP PHYS: Wade Walters MD SERVICE AUTHOR: Gt Smallwood MD * ALL edits or amendments must be made on the electronic/computer document * HPI-General Illness Free Text HPI Notes Free Text HPI Notes Case of a 29-year-old male with reported past medical history of chronic bronchitis, chronic chest pain, asthma who comes to the ER with complaint of chest pain. Reports pain started a couple of hours before coming to the emergency room. Says he was watching TV. Described as sharp stabbing sensation localized to the left side of the chest. Cannot recall inciting event, does not identify improving or worsening factors. Denies other associated symptoms like diaphoresis, nausea, shortness of breath, dizziness, palpitations, skin color changes, passing out. Patient has had multiple episodes of chest pain in the past. Patient has had a cardiac catheterization's (last June 29) reported negative for coronary obstruction. General Confirmed Patient Yes Initial Greet Date/Time 09/08/23 1648 Presentation Chief Complaint Chest pain Hx Obtained From Patient Review of Systems ROS Statements All systems rev neg except as marked. Free Text ROS Notes Free Text ROS Notes Constitutional Denies: Chills, Fatigue, Fever, Malaise, Weakness - generalized. Eyes Denies: Blurred bilat, Discharge L, Redness bilat, Swelling bilat. Ears/Nose/Throat Denies: Earache bilat, Hearing loss bilat, Mouth pain, Nasal congestion, Nose bleeding, Sinus problem, Sore throat. Respiratory Denies: Cough, non-productive, Dyspnea on exertion, Pleuritic pain, Shortness of breath. Cardiovascular Denies: Edema, Orthopnea, Palpitations, Syncope. GI Denies: Abdominal pain, Diarrhea, Nausea, Vomiting. Male Denies: Dysuria, Flank pain, Penile discharge, Scrotal swelling, Testicular pain, Urinary frequency, Urinary urgency, Urination decreased, Urination increased. Musculoskeletal Denies: Back pain, Extremity pain, Extremity swelling, Joint pain, Joint swelling. Hematologic Denies: Adenopathy. Skin Denies: Diaphoresis, Erythema, Itching, Jaundice, Rash, Swelling. Neurologic Denies: Change LOC, Confusion, Dizziness, Focal weakness, Headache, Problem walking, Slurred speech, Syncope. Past Medical History - Adult Stated Complaint CHEST PAIN, SOB Allergies Coded Allergies: Penicillins (Severe, THROAT SWELLS UP 06/30/23) Home Medications Active Scripts DICYCLOMINE (BENTYL) 20 MG PO QID DICYCLOMINE (BENTYL) 20 MG PO QID #30 TABS Prov: 09/03/23 METOCLOPRAMIDE (REGLAN) 5 MG PO AC HS METOCLOPRAMIDE (REGLAN) 5 MG PO AC HS #60 TABS Prov: 09/03/23 DOCUSATE SODIUM (COLACE) 0 MG PO ASDIR DOCUSATE SODIUM (COLACE) 0 MG PO ASDIR #60 CAPS Prov: 08/17/23 POLYETHYLENE GLYCOL 3350 (MIRALAX) 17 GM PO ASDIR POLYETHYLENE GLYCOL 3350 (MIRALAX) 17 GM PO ASDIR #30 PACKET Prov: 08/17/23 Reported Medications ALPRAZolam (XANAX) 2 MG PO TID PRN ANXIETY HYDROmorphone (DILAUDID) 2 MG PO Q4H PRN PRN PAIN SCALE 7-10 AMYLASE/LIPASE/PROTEA 120,000/24,000/76,000 U (CREON 24) 24,000 UNITS PO TID MEALS ALBUTEROL (PROAIR DIGIHALER 90 MCG/ACT 0.65 GM) 2 PUFF INH RTQ6H Past Medical History: Reports: Asthma, Pancreatitis. Additional Medical History Pancreatitis Past Surgical History: Denies: Abdominal surgery. Family History: Denies: CAD < 40 yrs old. Additional Family History n/c Alcohol Use Denies EtOH use Drug Use Denies recreational drugs Smoking status for patients 13 years old or older: Current some day smoker Other Social History Primary family support Additional Social History family hx- unknown Physical Exam Vital Signs Vital Signs First Documented: Result Date Time Pulse Ox 98 09/07 1647 B/P 161/97 09/07 1647 B/P Mean 118.6 09/07 1647 Temp 37.4 09/07 1647 Pulse 56 09/07 1647 Resp 18 09/07 1647 Last Documented: Result Date Time Pulse Ox 98 09/07 1647 B/P 161/97 09/07 1647 B/P Mean 118.6 09/07 1647 Temp 37.4 09/07 1647 Pulse 56 09/07 1647 Resp 18 09/07 1647 Review of Vital Signs Reviewed Free Text PE Notes Free Text PE Notes General/Const Awake, Alert, No acute distress, Well appearing, Cooperative, Not toxic appearing MS Head Normocephalic Eyes PERRL, EOMI Ears/Nose/Throat Airway patent, Mucous membranes moist, Pharynx NL MS Neck Supple, No meningismus, Full range of motion, No adenopathy Resp/Chest Breath sounds NL, Breath sounds = bilat, No respiratory distress Cardiovascular Heart rate NL, Regular rhythm, Heart sounds NL, Cap refill not delayed, Peripheral circulation NL Abdomen/GI Soft, Non-tender, BS normoactive, No distention MS Back Inspection NL Lymphatic No gross adenopathy MS Upper Extrem Inspection NL, Full range of motion, No swelling MS Lower Extrem Inspection NL, Full range of motion, No swelling Skin NL, No rash, Warm, Dry Neurologic Oriented X3, Speech NL, No motor deficits, No sensory deficits Psychiatric Affect NL, Mood NL Risk-Chest Pain Under 40 Risk Stratification )( Coronary Artery Disease Risk factors reviewed Thoracic Aortic Dissection Risk factors reviewed )( Pulmonary Embolism Risk factors reviewed )( HEART for MACE )( HEART for MACE Response Value History Low index of suspicion 0 Age Age under 45 0 Risk Factors for CAD No risk factors known 0 Total 0 Interpretation Diagnostics ECG #1 Interpretation Text/Dict Note Sinus bradycardia at 58 bpm, no axis deviation, no ST elevation, no acute ischemic changes, normal segments, early repolarization, unchanged from multiple previous EKGs. Date 09/08/23 Time 1655 Interpreted by and reviewed by me Re-Evaluation MDM Free Text MDM Notes Free Text MDM Notes Patient with complaint of chest pain. Physical exam without acute findings. EKG without acute ischemic changes (unchanged form multiple previous EKGs). Will request lab analyses and imaging for adequate cardiac assessment and risk stratification. Will also evaluate for other possible pathologies like pneumonia , pneumothorax, pleural effusions. Re-Evaluation/Progress #1 Text/Dict Note I was notified by nursing staff that patient walked out the ER. I did not had a chance to explore options, provide any guidance or counseling or make any type of follow-up arrangement. Time of Re-Eval 1703 Re-Eval Status Improved ED Course Medication(s) Ordered Medication(s) Ordered: Central Nervous System Agents Sig/José Miguel Start time Last Medication Dose Route Stop Time Status Admin Aspirin 324 MG X1ED STA 09/07 170 DC PO 09/08 1703 Patient Discharge Departure Vital Signs/Condition Vital Signs First Documented: Result Date Time Pulse Ox 98 09/07 1647 B/P 161/97 09/07 164 B/P Mean 118.6 09/07 1646 Temp 37.4 09/07 1646 Pulse 56 09/07 1647 Resp 18 09/07 1646 Last Documented: Result Date Time Pulse Ox 98 09/07 1647 B/P 161/97 09/07 164 B/P Mean 118.6 09/07 1646 Temp 37.4 09/07 164 Pulse 56 09/07 1647 Resp 18 09/07 164 All vital signs available at the time of this entry have been reviewed. Condition Stable Clinical Impression Clinical Impression Primary Impression: Chest pain Disposition Decision Other )( Time 1704 )( Date 09/08/23 Text/Dict Note Elope from the emergency room at 0007 RPT #[id number] END OF REPORT [facility] 2023-09-05 02:06:00 [id number] [facility] PATIENT NAME: TANNER BENDER ADMIT DATE: 09/04/23 ACCOUNT NO: [id number] ROOM NO: AGE: 37 REPORT TYPE: eEKG REPORT SEX: M DATE OF : [birth year] ADMITTING PHYSICIAN: ATTENDING PHYSICIAN: Order: [id number] Test Reason : Test Date/Time Stamp: FriSep 05 2023 02:06:07 Blood Pressure : / mmHG Vent. Rate : 054 BPM Atrial Rate : 054 BPM P-R Int : 108 ms QRS Dur : 104 ms QT Int : 400 ms P-R-T Axes : 034 082 068 degrees QTc Int : 379 ms Sinus bradycardia Minimal voltage criteria for LVH, may be normal variant ( Sokolow-Bell ) ST elevation, consider early repolarization, pericarditis, or injury Abnormal ECG When compared with ECG of 02-SEP-2023 23:51, No significant change was found Confirmed by MD LEE, EDU ([id number]) on 09/05/2023 5:33:08 PM Referred By: Wade Walters Confirmed by:EDU ADLER MD at 1733 PATIENT NAME: TANNER BENDER [facility] 2023-09-05 02:03:00 [facility] ([facility]) EMERGENCY PROVIDER REPORT REPORT#:[id number] REPORT STATUS: Signed DATE:09/05/23 TIME: 0203 PATIENT: TANNER BENDER UNIT #: [id number] ROOM/BED: AGE: 37 SEX: M PCP PHYS: Wade Walters MD SERVICE AUTHOR: Iggy Copeland MD * ALL edits or amendments must be made on the electronic/computer document * HPI-Abd Pain M Under 40 General Initial Greet Date/Time 09/05/23 0157 Presentation Chief Complaint Abdominal pain Hx Obtained From Patient, Prior medical records Sudden in Onset? No Onset Occurred Days ago Symptom Duration Since onset Progression since Onset Unchanged Caused by No trauma by history Location Epigastric, LUQ Quality Same as prior, Aching Radiation Does not radiate. Migration/Movement None Pain/Sev: Onset Mild Pain/Sev: Current Moderate Associated with Reports: Nausea, Vomiting. Denies: Fever, Hematemesis, Hematochezia, Melena. Exacerbated by Eating Relieved by Nothing Free Text HPI Notes Free Text HPI Notes Denies chest pain, tightness, or pressure, sob, lightheadedness, syncope, exertional symptoms, sweating, arm pain, back pain, or jaw pain. Denies fever or bleeding per any orifice. Risk-Abd Pain M Under 40 )( Torsion Risk factors reviewed Review of Systems ROS Statements All systems rev neg except as marked. Focused Review of Systems Respiratory Denies: Cough, non-productive, Cough, productive, Shortness of breath. Cardiovascular Denies: Chest pain, Syncope. Past Medical History - Adult Stated Complaint ABDPAIN, PASSED OUT Allergies Coded Allergies: Penicillins (Severe, THROAT SWELLS UP 06/30/23) Home Medications Active Scripts DICYCLOMINE (BENTYL) 20 MG PO QID DICYCLOMINE (BENTYL) 20 MG PO QID #30 TABS Prov: 09/03/23 METOCLOPRAMIDE (REGLAN) 5 MG PO AC HS METOCLOPRAMIDE (REGLAN) 5 MG PO AC HS #60 TABS Prov: 09/03/23 DOCUSATE SODIUM (COLACE) 0 MG PO ASDIR DOCUSATE SODIUM (COLACE) 0 MG PO ASDIR #60 CAPS Prov: 08/17/23 POLYETHYLENE GLYCOL 3350 (MIRALAX) 17 GM PO ASDIR POLYETHYLENE GLYCOL 3350 (MIRALAX) 17 GM PO ASDIR #30 PACKET Prov: 08/17/23 Reported Medications ALPRAZolam (XANAX) 2 MG PO TID PRN ANXIETY HYDROmorphone (DILAUDID) 2 MG PO Q4H PRN PRN PAIN SCALE 7-10 AMYLASE/LIPASE/PROTEA 120,000/24,000/76,000 U (CREON 24) 24,000 UNITS PO TID MEALS ALBUTEROL (PROAIR DIGIHALER 90 MCG/ACT 0.65 GM) 2 PUFF INH RTQ6H Pt reports no significant: Past medical history Past Medical History: Reports: Asthma, Pancreatitis. Additional Medical History Pancreatitis Past Surgical History: Denies: Abdominal surgery. Family History: Denies: CAD < 40 yrs old. Additional Family History n/c Alcohol Use Denies EtOH use Drug Use Denies recreational drugs Other Social History Primary family support Additional Social History family hx- unknown Physical Exam Vital Signs Vital Signs First Documented: Result Date Time Pulse Ox 98 09/04 0157 B/P 136/72 09/04 0157 B/P Mean 93 09/04 0157 O2 Delivery Room air 09/04 0157 Temp 36.6 09/04 0157 Pulse 57 09/04 0157 Resp 18 09/04 0157 Last Documented: Result Date Time Pulse Ox 98 09/04 0157 B/P 136/72 09/04 0157 B/P Mean 93 09/04 0157 O2 Delivery Room air 09/04 0157 Temp 36.6 09/04 0157 Pulse 57 09/04 0157 Resp 18 09/04 0157 Review of Vital Signs Reviewed Focused PE General/Const General/Const Awake, Alert, Well appearing MS Head Head Normocephalic Eyes Eyes PERRL Ears/Nose/Throat Ears/Nose/Throat Airway patent, Mucous membranes moist, Pharynx NL Resp/Chest Respiratory/Chest Breath sounds NL, Breath sounds = bilat, No respiratory distress, No rales, No rhonchi, No wheezing Cardiovascular Cardiovascular Heart rate NL, Regular rhythm, Heart sounds NL, Peripheral circulation NL Abdomen/GI Abdomen/GI Soft, McBurney's non-tender, No guarding, No rebound, BS normoactive, No distention, No hernia, No palpable mass Tenderness/Guarding/Rebound Tender LUQ, Tender epigastric. Negative: Tender RUQ, Tender RLQ, Tender LLQ, Tender periumbilical, Tender suprapubic, Tender diffuse, Tender flank R, Tender flank L, Mclaughlin's sign positive, McBurney's point tender, Guarding voluntary, Guarding involuntary, Rebound localized, Rebound diffuse, Rigid to palpation. MS Back Back Inspection NL, Non-tender, No CVA tenderness Skin Skin Color NL, Warm, Dry, Turgor NL Neurologic Neurologic Oriented X3, Speech NL, No motor deficits, No sensory deficits Interpretation Diagnostics Lab Results Interpretation Results Laboratory Tests 09/05/23222: [Embedded Image Not Available] Laboratory Tests: 09/04 222 Chemistry Sodium (136 - 145 mmol/L) 138 Potassium (3.5 - 5.1 mmol/L) 4.4 Chloride (98 - 107 mmol/L) 108.0 H Carbon Dioxide (21 - 32 mmol/L) 26.0 Anion Gap (10 - 20 mmol/L) 8.4 L BUN (7 - 18 mg/dL) 10 Creatinine (0.7 - 1.3 mg/dL) 0.90 Glomerular Filtr Rate (>=60 mL/min) > 60 BUN/Creatinine Ratio (10 - 20) 10.6 Glucose (74 - 106 mg/dL) 92 Calcium (8.5 - 10.1 mg/dL) 8.1 L Troponin I (0 - 54 pg/mL) <4.0 Lipase (12 - 57 U/L) 178 H Hematology WBC (4.5 - 12.5 K/mm3) 8.8 RBC (4.0 - 5.8 mill/mm3) 3.47 L Hgb (13.0 - 17.5 gram/dL) 10.1 L Hct (42.0 - 52.0 %) 31.3 L MCV (80 - 98 fL) 90.2 MCH (27.0 - 33.0 picogram) 29.1 MCHC (33.0 - 36.0 gram/dL) 32.3 L RDW (11.6 - 16.2 %) 13.0 Plt Count (150 - 450 K/mm3) 312 MPV (6.7 - 11.0 fL) 9.7 Urines Urine Color (YELLOW) COLORLESS L Urine Appearance (CLEAR) CLEAR Urine pH (5.0 - 8.0) 6.0 Ur Specific Charlotte (1.001 - 1.035) 1.034 Urine Protein (NEGATIVE mg/dL) NEGATIVE Urine Glucose (UA) (NEGATIVE mg/dL) NEGATIVE Urine Ketones (NEGATIVE mg/dL) NEGATIVE Urine Blood (NEGATIVE mg/dL) Negative Urine Nitrite (NEGATIVE) NEGATIVE Urine Bilirubin (NEGATIVE mg/dL) NEGATIVE Urine Urobilinogen (NEGATIVE mg/dL) Normal Ur Leukocyte Esterase (NEGATIVE Sachin/uL) NEGATIVE Urine RBC (0 - 5 #/HPF) NONE SEEN Urine WBC (0 - 5 per HPF) NONE SEEN Ur Epithelial Cells (FEW per HPF) None seen Urine Bacteria (NONE #/HPF) NONE SEEN Urine Mucus (FEW #/LPF) FEW ECG #1 Interpretation Time 0207 Interpreted by and reviewed by me, Independently interpreted, ED physician NL ECG Interpretation Normal rate, No STEMI, Normal QRS, Normal axis, Normal intervals, Adequate tracing Rate 54 ECG Q-T-ST - TN Non-specific ST changes Re-Evaluation MDM Free Text MDM Notes Free Text MDM Notes Differential Diagnosis: Abdominal aortic aneurysm, Acute abdominal pain, Acute coronary syndrome, Angina/TN, Aortic dissection, Appendicitis, Bowel obstruction , Cholangitis, Cholecystitis, Cholelithiasis, Diverticular disease, Esophagitis, Gastritis, Gastroenteritis, GERD, Hepatitis, Hernia, Inflam bowel disease, Ischemic bowel, Malignancy, Myocardial infarction, Pancreatitis, Peritonitis, Pylonephritis, Unstable angina, Urinary obstruction, Urinary tract infection, Urolithiasis, Volvulus Previous hospital records noted. CT abdomen pelvis with IV contrast performed on September 03, 2023 shows mild colitis. )( Re-Evaluation/Progress #1 Text/Dict Note Patient appears nontoxic and improved in clinical condition. Mental status and neurologic exam unchanged. No chest pain or shortness of breath. Lungs cta bilaterally. Abdomen still with abdominal pain and vomiting. Labs independently reviewed and interpreted by me. Time of Re-Eval 0330 )( Re-Eval Status Improved ED Course Medication(s) Ordered Medication(s) Ordered: Central Nervous System Agents Sig/José Miguel Start time Last Medication Dose Route Stop Time Status Admin Morphine Sulfate 4 MG X1ED STA 09/04 0159 DC 05/ IV 09/04 0200 0303 Electrolytic, Caloric, And Sneha Sig/José Miguel Start time Last Medication Dose Route Stop Time Status Admin Sodium Chloride 1,000 ML X1ED STA 09/04 0159 DC 05/ IV 09/04 0258 0319 Gastrointestinal Drugs Sig/José Miguel Start time Last Medication Dose Route Stop Time Status Admin Ondansetron HCl 4 MG X1ED PRN PRN 09/04 0200 DC 09/04 IV 0303 Patient Discharge Departure Vital Signs/Condition Vital Signs First Documented: Result Date Time Pulse Ox 98 09/04 0157 B/P 136/72 09/04 0157 B/P Mean 93 09/04 0157 O2 Delivery Room air 09/04 0157 Temp 36.6 09/04 0157 Pulse 57 09/04 0157 Resp 18 09/04 0157 Last Documented: Result Date Time Pulse Ox 98 09/04 0157 B/P 136/72 09/04 0157 B/P Mean 93 09/04 0157 O2 Delivery Room air 09/04 0157 Temp 36.6 09/04 0157 Pulse 57 09/04 0157 Resp 18 09/04 0157 All vital signs available at the time of this entry have been reviewed. Clinical Impression Clinical Impression Primary Impression: Pancreatitis Disposition Decision Hospitalize Hosp Physician Name Preston Escobar MD Hosp Physician Hospitalist Request Time 033 Request Date 09/05/23 )( Accepts Hospitalization Yes )( Accepted Time 331 )( Accepted Date 09/05/23 Call Information will see patient, agrees with eval, agrees with plan at 0334 RPT #:[id number] END OF REPORT [facility] 2023-09-04 21:37:00 [facility] ([facility]) EMERGENCY PROVIDER REPORT REPORT#:[id number] REPORT STATUS: Signed DATE:09/04/23 TIME: 2136 PATIENT: TANNER BENDER UNIT #: [id number] ROOM/BED: AGE: 37 SEX: M PCP PHYS: Wade Walters MD SERVICE AUTHOR: Iggy Copeland MD * ALL edits or amendments must be made on the electronic/computer document * HPI-Abd Pain M 40 and Over General Initial Greet Date/Time 09/04/232132 Presentation Chief Complaint Abdominal pain Hx Obtained From Patient Sudden in Onset? No Onset Occurred Days ago Symptom Duration Since onset Progression since Onset Unchanged Caused by No trauma by history Location Epigastric, LUQ Quality Same as prior, Aching Radiation Does not radiate. Migration/Movement None Pain/Sev: Onset Mild Pain/Sev: Current Moderate Associated with Reports: Nausea, Vomiting. Denies: Fever, Hematemesis, Hematochezia, Melena. Exacerbated by Eating Relieved by Nothing Free Text HPI Notes Free Text HPI Notes Patient states he is having upper abdominal pain and nausea and vomiting every time he tries to eat or drink something which is similar to previous episodes of pancreatitis. Denies chest pain, tightness, or pressure, sob, lightheadedness, syncope, exertional symptoms, sweating, arm pain, back pain, or jaw pain. Denies fever or bleeding per any orifice. Risk-Abd Pain M 40 and Over )( Abdominal Aortic Aneurysm Risk factors reviewed Coronary Artery Disease Risk factors reviewed Thoracic Aortic Dissection Risk factors reviewed Review of Systems ROS Statements All systems rev neg except as marked. Focused Review of Systems Respiratory Denies: Cough, non-productive, Cough, productive, Shortness of breath. Cardiovascular Denies: Chest pain, Syncope. Past Medical History - Adult Stated Complaint ABD PAIN WITH VOMITING Allergies Coded Allergies: Penicillins (Severe, THROAT SWELLS UP 06/30/23) Home Medications Active Scripts DICYCLOMINE (BENTYL) 20 MG PO QID DICYCLOMINE (BENTYL) 20 MG PO QID #30 TABS Prov: 09/03/23 METOCLOPRAMIDE (REGLAN) 5 MG PO AC HS METOCLOPRAMIDE (REGLAN) 5 MG PO AC HS #60 TABS Prov: 09/03/23 DOCUSATE SODIUM (COLACE) 0 MG PO ASDIR DOCUSATE SODIUM (COLACE) 0 MG PO ASDIR #60 CAPS Prov: 08/17/23 POLYETHYLENE GLYCOL 3350 (MIRALAX) 17 GM PO ASDIR POLYETHYLENE GLYCOL 3350 (MIRALAX) 17 GM PO ASDIR #30 PACKET Prov: 08/17/23 Reported Medications ALPRAZolam (XANAX) 2 MG PO TID PRN ANXIETY HYDROmorphone (DILAUDID) 2 MG PO Q4H PRN PRN PAIN SCALE 7-10 AMYLASE/LIPASE/PROTEA 120,000/24,000/76,000 U (CREON 24) 24,000 UNITS PO TID MEALS ALBUTEROL (PROAIR DIGIHALER 90 MCG/ACT 0.65 GM) 2 PUFF INH RTQ6H Review of Nursing Notes Rev avail, and agree Past Medical History: Reports: Asthma, Pancreatitis. Additional Medical History Pancreatitis Past Surgical History: Denies: Abdominal surgery. Family History: Denies: CAD < 40 yrs old. Additional Family History n/c Alcohol Use Denies EtOH use Drug Use Denies recreational drugs Other Social History Primary family support Additional Social History family hx- unknown Physical Exam Vital Signs Review of Vital Signs Reviewed Focused PE General/Const General/Const Awake, Alert MS Head Head Normocephalic Eyes Eyes PERRL Ears/Nose/Throat Ears/Nose/Throat Airway patent, Mucous membranes moist, Pharynx NL Resp/Chest Respiratory/Chest Breath sounds NL, Breath sounds = bilat, No respiratory distress, No rales, No rhonchi, No wheezing Cardiovascular Cardiovascular Heart rate NL, Regular rhythm, Heart sounds NL, Peripheral circulation NL Abdomen/GI Abdomen/GI Soft, McBurney's non-tender, No guarding, No rebound, BS normoactive, No distention, No hernia, No palpable mass, No pulsatile mass Tenderness/Guarding/Rebound Tender LUQ, Tender epigastric. MS Back Back Inspection NL, Non-tender, No CVA tenderness Skin Skin Color NL, Warm, Dry, Turgor NL Neurologic Neurologic Oriented X3, Speech NL, No motor deficits, No sensory deficits Re-Evaluation MDM Free Text MDM Notes Free Text MDM Notes Differential Diagnosis: Abdominal aortic aneurysm, Acute abdominal pain, Acute coronary syndrome, Angina/TN, Aortic dissection, Appendicitis, Bowel obstruction , Cholangitis, Cholecystitis, Cholelithiasis, Diverticular disease, Esophagitis, Gastritis, Gastroenteritis, GERD, Hepatitis, Hernia, Inflam bowel disease, Ischemic bowel, Malignancy, Myocardial infarction, Pancreatitis, Peritonitis, Pylonephritis, Unstable angina, Urinary obstruction, Urinary tract infection, Urolithiasis, Volvulus Previous records noted. CT scan with IV contrast performed on September 03, 2023 shows mild colitis involving the descending and sigmoid colon. ED Course Medication(s) Ordered Medication(s) Ordered: Central Nervous System Agents Sig/José Miguel Start time Last Medication Dose Route Stop Time Status Admin Morphine Sulfate 4 MG X1ED STA 09/04 2135 DC IV 09/03 2136 Electrolytic, Caloric, And Sneha Sig/José Miguel Start time Last Medication Dose Route Stop Time Status Admin Sodium Chloride 1,000 ML X1ED STA 09/04 2135 DC IV 09/03 223 Gastrointestinal Drugs Sig/José Miguel Start time Last Medication Dose Route Stop Time Status Admin Ondansetron HCl 4 MG X1ED PRN PRN 05/23 2145 DCD IV Patient Discharge Departure Vital Signs/Condition Vital Signs All vital signs available at the time of this entry have been reviewed. Clinical Impression Clinical Impression Primary Impression: Abdominal pain Elopement Note Elopement Note This patient has left the emergency department or waiting room with no communication to myself, nursing or administrative staff. There was no opportunity to discuss the patient's decision to leave, provide medical advice or discuss alternatives to leaving. The staff has made efforts to locate the patient without success. at 0032 RPT #:[id number] END OF REPORT [facility] 2023-09-03 20:41:00 [facility] ([facility]) EMERGENCY PROVIDER REPORT REPORT#:[id number] REPORT STATUS: Signed DATE:09/03/23 TIME: 2040 PATIENT: TANNER BENDER UNIT #: [id number] ROOM/BED: [place] [id number] AGE: 37 SEX: M PCP PHYS: Wade Walters MD SERVICE AUTHOR: Jarett Frazier APRNNP * ALL edits or amendments must be made on the electronic/computer document * Jarett Frazier 09/03/232040: HPI-Abd Pain M Under 40 Free Text HPI Notes Free Text HPI Notes 37-year-old male with history of pancreatitis was seen at [place] ED this a.m. and discharged home with left-sided abdominal pain radiating to the back and diffusely. CT showed mild colitis involving the descending and sigmoid colon. Patient was given hydromorphone, morphine, Zofran in the ED and discharged home with Bentyl and Reglan. Patient returns to this ED for no improvement. Reports has had pain with nausea and vomiting x 4 days. Now reports having black tarry stools and feeling of lightheadedness with prolonged standing. General Confirmed Patient Yes Initial Greet Date/Time 09/03/232004 Presentation Chief Complaint Abdominal pain Hx Obtained From Patient, Prior medical records Sudden in Onset? No Onset Occurred Days ago Risk-Abd Pain M Under 40 )( Torsion Risk factors reviewed Review of Systems ROS Statements All systems rev neg except as marked. Focused Review of Systems Constitutional Denies: Chills, Fever, Lethargy. Respiratory Denies: Cough, non-productive, Cough, productive, Shortness of breath. Cardiovascular Denies: Chest pain, Syncope. GI Reports: Abdominal pain, Bloody/tarry stool, Diarrhea, Nausea. Denies: Vomiting. Male Denies: Flank pain, Testicular pain. Musculoskeletal Denies: Back pain, Extremity pain. Past Medical History - Adult Stated Complaint ABD PAIN VOMITING Allergies Coded Allergies: Penicillins (Severe, THROAT SWELLS UP 06/30/23) Home Medications Active Scripts DICYCLOMINE (BENTYL) 20 MG PO QID DICYCLOMINE (BENTYL) 20 MG PO QID #30 TABS Prov: 09/03/23 METOCLOPRAMIDE (REGLAN) 5 MG PO AC HS METOCLOPRAMIDE (REGLAN) 5 MG PO AC HS #60 TABS Prov: 09/03/23 DOCUSATE SODIUM (COLACE) 0 MG PO ASDIR DOCUSATE SODIUM (COLACE) 0 MG PO ASDIR #60 CAPS Prov: 08/17/23 POLYETHYLENE GLYCOL 3350 (MIRALAX) 17 GM PO ASDIR POLYETHYLENE GLYCOL 3350 (MIRALAX) 17 GM PO ASDIR #30 PACKET Prov: 08/17/23 Reported Medications ALPRAZolam (XANAX) 2 MG PO TID PRN ANXIETY HYDROmorphone (DILAUDID) 2 MG PO Q4H PRN PRN PAIN SCALE 7-10 AMYLASE/LIPASE/PROTEA 120,000/24,000/76,000 U (CREON 24) 24,000 UNITS PO TID MEALS ALBUTEROL (PROAIR DIGIHALER 90 MCG/ACT 0.65 GM) 2 PUFF INH RTQ6H Review of Nursing Notes Triage notes reviewed Physical Exam Vital Signs Vital Signs First Documented: Result Date Time Pulse Ox 96 09/02 2017 B/P 110/69 09/02 2017 B/P Mean 82 09/02 2017 O2 Delivery Room air 09/02 2017 Temp 37.1 09/02 2017 Pulse 75 09/02 2017 Resp 09/02 Last Documented: Result Date Time Pulse Ox 96 09/02 2300 B/P 117/66 09/02 2300 B/P Mean 86 09/02 2300 Pulse 50 09/02 2300 O2 Delivery Room air 09/02 2017 Temp 37.1 09/02 2017 Resp 18 09/02 2017 Review of Vital Signs Vital signs normal Focused PE General/Const General/Const Awake, Alert, Well appearing MS Head Head Normocephalic Eyes Eyes PERRL Ears/Nose/Throat Ears/Nose/Throat Airway patent, Mucous membranes moist, Pharynx NL Resp/Chest Respiratory/Chest Breath sounds NL, Breath sounds = bilat, No respiratory distress, No rales, No rhonchi, No wheezing Cardiovascular Cardiovascular Heart rate NL, Regular rhythm, Heart sounds NL, Peripheral circulation NL Abdomen/GI Abdomen/GI Soft Tenderness/Guarding/Rebound Tender diffuse (WORSE LUQ). MS Back Back Inspection NL, Non-tender, No CVA tenderness Skin Skin Color NL, Warm, Dry, Turgor NL Genitourinary General Exam deferred Neurologic Neurologic Oriented X3, Speech NL, No motor deficits, No sensory deficits Interpretation Diagnostics Lab Results Interpretation Results Laboratory Tests 09/03/232133: [Embedded Image Not Available] Laboratory Tests: 09/02 2133 Chemistry Sodium (136 - 145 mmol/L) 137 Potassium (3.5 - 5.1 mmol/L) 3.8 Chloride (98 - 107 mmol/L) 105.0 Carbon Dioxide (21 - 32 mmol/L) 29.0 Anion Gap (10 - 20 mmol/L) 6.8 L BUN (7 - 18 mg/dL) 8 Creatinine (0.7 - 1.3 mg/dL) 1.00 Glomerular Filtr Rate (>=60 mL/min) > 60 BUN/Creatinine Ratio (10 - 20) 7.8 L Glucose (74 - 106 mg/dL) 94 Calcium (8.5 - 10.1 mg/dL) 8.4 L Total Bilirubin (0.0 - 1.0 mg/dL) 0.60 Direct Bilirubin (0.0 - 0.20 mg/dL) 0.20 AST (15 - 37 IUnit/L) 22 ALT (12 - 78 IUnit/L) 15 Total Alk Phosphatase (45 - 117 IUnit/L) 46 Total Protein (6.4 - 8.2 gram/dL) 6.3 L Albumin (3.4 - 5.0 g/dL) 3.5 Globulin (2.7 - 4.2 gram/dL) 2.8 Albumin/Globulin Ratio (0.75 - 1.50) 1.2 Lipase (12 - 57 U/L) 44 Hematology WBC (4.5 - 12.5 K/mm3) 11.0 RBC (4.0 - 5.8 mill/mm3) 3.41 L Hgb (13.0 - 17.5 gram/dL) 10.1 L Hct (42.0 - 52.0 %) 30.5 L MCV (80 - 98 fL) 89.4 MCH (27.0 - 33.0 picogram) 29.6 MCHC (33.0 - 36.0 gram/dL) 33.1 RDW (11.6 - 16.2 %) 13.0 Plt Count (150 - 450 K/mm3) 306 MPV (6.7 - 11.0 fL) 9.7 Urines Urine Color (YELLOW) YELLOW Urine Appearance (CLEAR) CLEAR Urine pH (5.0 - 8.0) 6.0 Ur Specific [place] (1.001 - 1.035) 1.037 Urine Protein (NEGATIVE mg/dL) 20 (Trace) H Urine Glucose (UA) (NEGATIVE mg/dL) NEGATIVE Urine Ketones (NEGATIVE mg/dL) NEGATIVE Urine Blood (NEGATIVE mg/dL) Negative Urine Nitrite (NEGATIVE) NEGATIVE Urine Bilirubin (NEGATIVE mg/dL) NEGATIVE Urine Urobilinogen (NEGATIVE mg/dL) 2.0 (1+) H Ur Leukocyte Esterase (NEGATIVE Sachin/uL) NEGATIVE Urine RBC (0 - 5 #/HPF) 0-2 Urine WBC (0 - 5 per HPF) 0-5 Ur Epithelial Cells (FEW per HPF) Few (2-5/hpf) Urine Bacteria (NONE #/HPF) FEW Urine Mucus (FEW #/LPF) FEW Microbiology: Date/Time Procedure - Status Source Growth 09/02 2157 Occult Blood - COMP STOOL Lab Statement Laboratory studies reviewed and considered in the medical decision-making. Re-Evaluation MDM )( Re-Evaluation/Progress #1 Text/Dict Note Hemoccult was obtained and sent to lab. Labs and meds pending Time of Re-Eval 2204 )( Re-Eval Status Unchanged Re-Evaluation/Progress #2 Text/Dict Note I personally reviewed the tests for this patient which show -Mild anemia with hemoglobin at 10.1 gm/dl this is mildly decreased from earlier today at [place] which showed hemoglobin of 11.1 mg/dl -No electrolyte imbalance, renal or liver abnormalities. -Lipase within normal limits, pancreatitis ruled out -Fecal Hemoccult negative. *Of note, CT obtained at [place] shoulder colitis, Cipro and Flagyl given in ED. I discussed these results and admission recommendations with the patient who verbalized understanding and agrees with plan. Time of Eval 2316 ED Course Medication(s) Ordered Medication(s) Ordered: Anti-Infective Agents Sig/José Miguel Start time Last Medication Dose Route Stop Time Status Admin Levofloxacin/Dextrose 150 ML X1ED STA 09/02 2216 DC 09/02 IV 09/02 Metronidazole/Sodium 100 ML X1ED STA 09/02 2204 DC 09/02 Chloride IV 09/02 Ciprofloxacin/ 200 ML X1ED STA 09/03 2203 DC Dextrose IV 09/02 2302 Central Nervous System Agents Sig/José Miguel Start time Last Medication Dose Route Stop Time Status Admin Morphine Sulfate 4 MG Q4H PRN PRN 09/02 2314 AC IV 09/03 1114 Morphine Sulfate 4 MG X1ED STA 09/02 2038 DC 09/02 IV 09/02 Electrolytic, Caloric, And Sneha Sig/José Miguel Start time Last Medication Dose Route Stop Time Status Admin Sodium Chloride 1,000 ML .Q10H 09/025 AC 09/03 IV 09/03 1114 0014 Sodium Chloride 1,000 ML X1ED STA 09/02 2038 DC 09/02 IV 09/02 Gastrointestinal Drugs Sig/José Miguel Start time Last Medication Dose Route Stop Time Status Admin Ondansetron HCl 4 MG Q6H PRN PRN 09/02 2314 AC IV 09/03 1114 Famotidine 20 MG X1ED STA 09/02 2038 DC 09/02 IV 09/02 Metoclopramide HCl 10 MG X1ED STA 09/02 2038 DC 05 IV 09/02 Differential Diagnosis )( Differential Diagnosis Abscess, Acute abdominal pain, Appendicitis, Bladder outlet obstruct, Bowel obstruction, Cellulitis, Cholangitis, Cholecystitis, Cholelithiasis, Constipation, Contusion abdominal wall, Diabetic ketoacidosis, Diarrhea, Diverticular disease, Dyspepsia, Foreign body, Gastritis, Gastroenteritis, GERD, Hepatitis, Hernia, Infectious mononucleosis, Inflam bowel disease, Ischemic bowel, Malignancy, Pancreatitis, Peritonitis, Porphyria, Pylonephritis, Sepsis?, Urinary obstruction, Urinary retention, Urinary tract infection, Urolithiasis Patient Discharge Departure Vital Signs/Condition Vital Signs First Documented: Result Date Time Pulse Ox 96 09/02 2017 B/P 110/69 09/02 2017 B/P Mean 82 09/02 2017 O2 Delivery Room air 09/02 2017 Temp 37.1 09/02 2017 Pulse 75 09/02 2017 Resp 09/02 Last Documented: Result Date Time Pulse Ox 96 09/02 2300 B/P 117/66 09/02 2300 B/P Mean 86 09/02 2300 Pulse 50 09/02 2300 O2 Delivery Room air 09/02 2017 Temp 37.1 09/02 2017 Resp 18 09/02 2017 All vital signs available at the time of this entry have been reviewed. Condition Stable Clinical Impression Clinical Impression Primary Impression: Colitis Secondary Impressions: Anemia, Intractable abdominal pain Disposition Decision Hospitalize Hosp Physician Name Preston Escobar MD [facility] Physician Hospitalist Request Time 2334 Request Date 09/03/23 )( Accepts Hospitalization Yes )( Reason for Hospitalization HIGHER LEVEL OF CARE )( Accepted Time 2335 )( Accepted Date 09/03/23 Discharge/Care Plan Counseled Regarding Diagnosis, Lab results, Need for admission Admit Note I have spoken with the patient and/or caregivers. I have explained the patient's condition, diagnoses and treatment plan based on the information available to me at this time. I have answered the patient's and/or caregiver's questions and addressed any concerns. The patient and/or caregivers have as good an understanding of the patient's diagnosis, condition and treatment plan as can be expected at this point. The patient has been stabilized within the capability of the emergency department. The patient will be transported for further care and management or will be moved to an observation or inpatient service. I have communicated with the staff or medical practitioner taking over this patient's care. Quality Measures BP F/U for HTN BP in normal range Smoking Cessation Screened, non user Michele Rowe 09/09/23 0109: Patient Discharge Departure Supervising Physician Note MidLv Saw Pt Alone I have reviewed the PA/RUBBER GOODS INSPECTOR TESTER's note and plan of care. I was available for consultation as needed at all times during the patient's visit in the emergency department. I agree with the clinical impression, plan and disposition. at 0017 at 0119 [facility] #:[id number] END OF REPORT [facility] 2023-09-03 01:05:00 [facility] ([facility]) EMERGENCY PROVIDER REPORT REPORT#:[id number] REPORT STATUS: Signed DATE:09/03/23 TIME: 104 PATIENT: TANNER BENDER UNIT #: [id number] ROOM/BED: AGE: 37 SEX: M PCP PHYS: Wade Walters MD SERVICE AUTHOR: Gagan De Jesus RUBBER [employer] INSPECTOR TESTER * ALL edits or amendments must be made on the electronic/computer document * Gagan De Jesus 09/03/23104: HPI-Abd Pain M 40 and Over Free Text HPI Notes Free Text HPI Notes History of Present Illness: The patient presents with a chief complaint of severe abdominal pain, localized on the left side, which has been persistent since Friday. They report an inability to retain any food or drink since the onset of the pain. Accompanying symptoms include lightheadedness upon standing and pain radiating to the lower back and colon area. Relevant Medical History: The patient identifies a history of chronic pancreatitis, noting that the last flare occurred approximately four to five years ago. They deny any alcohol consumption, indicating that the pancreatitis occurs spontaneously. The patient has a known allergy to penicillin. Current medications include Creon, Ativan, Zofran, Sulfrate, and Hydromorphone for pain management. They confirm that Creon is used as a pancreatic enzyme supplement. The patient denies any issues with urination. General Confirmed Patient Yes Patient Type New patient Initial Greet Date/Time 09/02/236 Presentation Chief Complaint Abdominal pain, Nausea Sudden in Onset? No Risk-Abd Pain M 40 and Over )( Abdominal Aortic Aneurysm Risk factors reviewed, No risk factors Review of Systems ROS Statements All systems rev neg except as marked. Focused Review of Systems GI Reports: Abdominal pain, Nausea, Vomiting. Past Medical History - Adult Stated Complaint VOMITING Allergies Coded Allergies: Penicillins (Severe, THROAT SWELLS UP 06/30/23) Home Medications Active Scripts DOCUSATE SODIUM (COLACE) 0 MG PO ASDIR DOCUSATE SODIUM (COLACE) 0 MG PO ASDIR #60 CAPS Prov: 05/05/24 POLYETHYLENE GLYCOL 3350 (MIRALAX) 17 GM PO ASDIR POLYETHYLENE GLYCOL 3350 (MIRALAX) 17 GM PO ASDIR #30 PACKET Prov: 08/17/23 Reported Medications ALPRAZolam (XANAX) 2 MG PO TID PRN ANXIETY HYDROmorphone (DILAUDID) 2 MG PO Q4H PRN PRN PAIN SCALE 7-10 AMYLASE/LIPASE/PROTEA 120,000/24,000/76,000 U (CREON 24) 24,000 UNITS PO TID MEALS ALBUTEROL (PROAIR DIGIHALER 90 MCG/ACT 0.65 GM) 2 PUFF INH RTQ6H Review of Nursing Notes Triage notes reviewed, Rapid assess notes rev Past Medical History: Reports: Asthma, Pancreatitis. Additional Medical History Pancreatitis Past Surgical History: Denies: Abdominal surgery. Family History: Denies: CAD < 40 yrs old. Additional Family History n/c Alcohol Use Denies EtOH use Drug Use Denies recreational drugs Smoking status for patients 13 years old or older: Current every day smoker Other Social History Primary family support Additional Social History family hx- unknown Physical Exam Vital Signs Vital Signs First Documented: Result Date Time Pulse Ox 96 09/02 2155 B/P 133/77 09/02 2155 B/P Mean 95.9 09/02 2155 Temp 36.5 09/02 2155 Pulse 66 09/02 2155 Resp 16 09/03 147 Last Documented: Result Date Time Pulse Ox 99 09/03 147 B/P 139/62 09/03 147 B/P Mean 87 09/03 147 Temp 36.8 09/03 147 Pulse 70 09/03 147 Resp 16 09/03 147 Review of Vital Signs Reviewed Focused PE General/Const General/Const Awake, Alert, No acute distress, Cooperative Resp/Chest Respiratory/Chest Breath sounds NL, Breath sounds = bilat, No respiratory distress, No rales, No rhonchi, No wheezing Cardiovascular Cardiovascular Heart rate NL, Regular rhythm, Heart sounds NL, Peripheral circulation NL Abdomen/GI Abdomen/GI Soft, McBurney's non-tender, No guarding, No rebound, BS normoactive, No distention, No hernia, No palpable mass, No pulsatile mass Tenderness/Guarding/Rebound Tender LUQ. Skin Skin Color NL, Warm, Dry, Turgor NL Neurologic Neurologic Oriented X3, Speech NL, No motor deficits, No sensory deficits Interpretation Diagnostics Lab Results Interpretation Results Laboratory Tests 09/02/232233: [Embedded Image Not Available] Laboratory Tests: 09/01 2233 Chemistry Sodium (134 - 147 mEq/L) 138 Potassium (3.4 - 5.0 mEq/L) 4.8 Chloride (100 - 108 mEq/L) 106 Carbon Dioxide (21 - 33 mEq/l) 26 Anion Gap (0 - 20) 11 BUN (7 - 25 mg/dL) 10 Creatinine (0.6 - 1.3 mg/dL) 1.1 Glomerular Filtr Rate (105 - 110) 88.1 L Glucose (77 - 141 mg/dL) 86 Calcium (8.0 - 10.5 mg/dL) 9.2 Total Bilirubin (0.0 - 1.0 mg/dL) 0.80 Direct Bilirubin (0.1 - 0.3 MG/DL) 0.20 Indirect Bilirubin (MG/DL) 0.60 AST (8 - 34 IUnit/L) 35 H ALT (10 - 49 IUnit/L) 20 Total Alk Phosphatase (20 - 125 IUnit/L) 49 Total Protein (6.4 - 8.2 g/dL) 7.1 Albumin (3.4 - 5.0 g/dL) 3.80 Lipase (13 - 57 U/L) 47 Hematology WBC (4.5 - 11.0 x10 3/uL) 6.8 RBC (4.00 - 5.60 x10 6/uL) 3.72 L Hgb (12.5 - 16.9 g/dL) 11.1 L Hct (37.5 - 50.7 %) 33.5 L MCV (81.0 - 99.0 fL) 90.1 MCH (27.0 - 33.0 pg) 29.8 MCHC (33.0 - 37.0 g/dL) 33.1 RDW (11.5 - 14.5 %) 12.9 Plt Count (150 - 400 x10 3/uL) 364 MPV (7.0 - 9.0 fL) 9.9 H Neut % (Auto) (56.0 - 77.0 %) 40.9 L Lymph % (Auto) (14.0 - 32.0 %) 43.0 H Randolph % (Auto) (4.8 - 9.0 %) 10.1 H Eos % (Auto) (0.3 - 3.7 %) 5.0 H Baso % (Auto) (0.0 - 2.0 %) 0.9 Neut # (Auto) (2.0 - 7.6 x10 3/uL) 2.79 Lymph # (Auto) (1.0 - 3.8 x10 3/uL) 2.94 Randolph # (Auto) (0.1 - 0.8 x10 3/uL) 0.69 Eos # (Auto) (0.0 - 0.2 x10 3/uL) 0.34 H Baso # (Auto) (0.0 - 0.2 x10 3/uL) 0.06 Abs Immat Gran (auto) (0.00 - 0.03 x10 3/uL) 0.01 Immature Gran % (0.0 - 2.0 %) 0.1 Nucleated RBC % (0 - 0 %) 0.0 Nucleated RBCs # (Man) (0.0 - 0.1 x10 3/uL) 0.00 Urines Urine Color (YEL/STRAW) YELLOW Urine Appearance (CLEAR) CLEAR Urine pH (5.0 - 7.0) 6.0 Ur Specific Charlotte (1.005 - 1.030) 1.025 Urine Protein (NEGATIVE) NEGATIVE Urine Glucose (UA) (NEGATIVE) NEGATIVE Urine Ketones (NEGATIVE) NEGATIVE Urine Blood (NEGATIVE) NEGATIVE Urine Nitrite (NEGATIVE) NEGATIVE Urine Bilirubin (NEGATIVE) NEGATIVE Urine Urobilinogen (0.2 - 1.0 mg/dL) 0.2 Ur Leukocyte Esterase (NEGATIVE) NEGATIVE Urine RBC (0 - 3 RBC/HPF) 0-3 Urine WBC (0 - 3 WBC/HPF) 0-3 Ur Squamous Epith Cells (NONE SEEN /HPF) NONE SEEN Urine Bacteria (NONE SEEN /HPF) NONE SEEN Urine Mucus (NONE SEEN /LPF) TRACE Recent Impressions: CAT SCAN - CT ABD PELVIS W/CONT 09/03 11 Report Impression - Status: SIGNED Entered: 09/03/2023 0039 IMPRESSION: 1. Mild colitis involving the descending and sigmoid colon. Impression By: [email or web address] - Tee Rashid M.D. Lab Imaging Statement Laboratory radiographic studies reviewed and considered in the medical decision-making. Point of Care Testing Pulse Oximetry Pulse Ox % 96 On: Room air Interpretation Interpreted by me, Pulse oximetry normal Time 2155 ECG #1 Interpretation Date 09/02/23 Time 2350 Interpreted by and reviewed by me, Independently interpreted, ED physician Rate 53 Rhythm Bradycardia Re-Evaluation MDM Free Text MDM Notes Free Text MDM Notes 37-year-old male in for evaluation of abdominal pain. Work Up: CBC: Unimpressive CMP: Unimpressive UA: Negative for leukocytes or nitrates CT: CT of abdomen and pelvis reveals mild colitis. Patient s symptoms not typical for emergent causes of abdominal pain such as, but not limited to, appendicitis, abdominal aortic aneurysm, surgical biliary disease, pancreatitis, SBO, mesenteric ischemia, serious intra-abdominal bacterial illness. Pt tolerating PO. Disposition: Patient will be discharged with strict return precautions and follow up with primary MD within 12-24 hours for further evaluation. Patient understands that this still may have an early presentation of an emergent medical condition such as appendicitis that will require a recheck. )( Re-Evaluation/Progress #1 Time of Re-Eval 0030 )( Re-Eval Status Unchanged Plan Post Re-Eval IV pain meds repeat, Plan discharge ED Course Medication(s) Ordered Medication(s) Ordered: Central Nervous System Agents Sig/José Miguel Start time Last Medication Dose Route Stop Time Status Admin Hydromorphone HCl 1 MG X1ED STA 09/02 0106 DC 09/02 IV 09/02 0107 0142 Morphine Sulfate 4 MG X1ED STA 09/01 2300 DC 09/01 IV 09/01 2301 2340 Diagnostic Agents Sig/José Miguel Start time Last Medication Dose Route Stop Time Status Admin Iopamidol 100 ML .STK-MED ONE 09/02 0007 DC 09/02 IV 09/02 0008 0007 Electrolytic, Caloric, And Sneha Sig/José Miguel Start time Last Medication Dose Route Stop Time Status Admin Sodium Chloride 1,000 ML X1ED STA 09/01 2300 DC 09/01 IV 09/01 2359 2339 Gastrointestinal Drugs Sig/José Miguel Start time Last Medication Dose Route Stop Time Status Admin Ondansetron HCl 4 MG X1ED PRN PRN 09/01 2300 DC 09/01 IV 09/02 2259 2340 Differential Diagnosis )( Differential Diagnosis Acute abdominal pain, Acute coronary syndrome, Bowel obstruction, Cholecystitis, Cholelithiasis, Constipation, Pancreatitis, Sepsis?, Urinary tract infection, Urolithiasis, Volvulus Patient Discharge Departure Vital Signs/Condition Vital Signs First Documented: Result Date Time Pulse Ox 96 09/02 2155 B/P 133/77 09/02 2155 B/P Mean 95.9 09/02 2155 Temp 36.5 09/02 2155 Pulse 66 09/02 2155 Resp 16 09/03 147 Last Documented: Result Date Time Pulse Ox 99 09/03 147 B/P 139/62 09/03 147 B/P Mean 87 09/03 147 Temp 36.8 09/03 147 Pulse 70 09/03 147 Resp 09/02 All vital signs available at the time of this entry have been reviewed. Condition Stable Clinical Impression Clinical Impression Primary Impression: Abdominal pain Secondary Impressions: Chronic pancreatitis Disposition Decision Discharge )( Discharged to Home Yes )( Time 010 )( Date 09/03/23 Discharge/Care Plan Counseled Regarding Diagnosis, Lab results, Imaging studies, Prescriptions, Need for follow-up, When to return to ED (Auto) Prescriptions Current Visit Scripts DICYCLOMINE (BENTYL) 20 MG PO QID DICYCLOMINE (BENTYL) 20 MG PO QID #30 TABS METOCLOPRAMIDE (REGLAN) 5 MG PO AC HS METOCLOPRAMIDE (REGLAN) 5 MG PO AC HS #60 TABS Prescriptions Reviewed Risks, Benefits Patient Instructions Understanding Colitis Discharge Note I have spoken with the patient and/or caregivers. I have explained the patient's condition, diagnoses and treatment plan based on the information available to me at this time. I have answered the patient's and/or caregiver's questions and addressed any concerns. The patient and/or caregivers have as good an understanding of the patient's diagnosis, condition and treatment plan as can be expected at this point. The vital signs have been stable. The patient's condition is stable and appropriate for discharge from the emergency department. The patient will pursue further outpatient evaluation with the primary care physician or other designated or consulting physician as outlined in the discharge instructions. The patient and/or caregivers are agreeable to this plan of care and follow-up instructions have been explained in detail. The patient and/or caregivers have received these instructions in written format and have expressed an understanding of the discharge instructions. The patient and/or caregivers are aware that any significant change in condition or worsening of symptoms should prompt an immediate return to this or the closest emergency department or a call to 1. [place] 09/03/23 0327: Patient Discharge Departure Discharge/Care Plan Referrals Provider Referral: Quoc Alvarenga MD Address: [address] [place] [address] [address] [place] [address] Supervising Physician Note MidLv Saw Pt Alone I have reviewed the PA/RUBBER GOODS INSPECTOR TESTER's note and plan of care. I was available for consultation as needed at all times during the patient's visit in the emergency department. I agree with the clinical impression, plan and disposition. at 0228 at 0327 RPT #:[id number] END OF REPORT [facility] 2023-08-17 00:38:00 [facility] ([facility]) EMERGENCY PROVIDER REPORT REPORT#:[id number] REPORT STATUS: Signed DATE:08/17/23 TIME: 37 PATIENT: TANNER BENDER UNIT #: [id number] ROOM/BED: AGE: 37 SEX: M PCP PHYS: Wade Walters MD SERVICE AUTHOR: Joselin Garcia MD * ALL edits or amendments must be made on the electronic/computer document * HPI-General Illness Free Text HPI Notes Free Text HPI Notes Patient is a 37-year-old with a history of chronic pancreatitis presenting to the emergency department with left upper quadrant abdominal pain associated nausea and vomiting. States he was prescribed Bentyl Zofran and hydromorphone but has been unable to keep most of it down. General Initial Greet Date/Time 08/16/231940 Presentation Chief Complaint Abdominal pain Review of Systems ROS Statements All systems rev neg except as marked. Free Text ROS Notes Free Text ROS Notes Abdominal Pain Past Medical History - Adult Stated Complaint PANCREATITIS Allergies Coded Allergies: Penicillins (Severe, THROAT SWELLS UP 06/30/23) Home Medications Reported Medications ALPRAZolam (XANAX) 2 MG PO TID PRN ANXIETY HYDROmorphone (DILAUDID) 2 MG PO Q4H PRN PRN PAIN SCALE 7-10 AMYLASE/LIPASE/PROTEA 120,000/24,000/76,000 U (CREON 24) 24,000 UNITS PO TID MEALS ALBUTEROL (PROAIR DIGIHALER 90 MCG/ACT 0.65 GM) 2 PUFF INH RTQ6H Calculated Suicide Risk (nurs) No risk Past Medical History: Reports: Asthma, Pancreatitis. Additional Medical History Pancreatitis Past Surgical History: Denies: Abdominal surgery. Family History: Denies: CAD < 40 yrs old. Additional Family History n/c Alcohol Use Denies EtOH use Drug Use Denies recreational drugs Smoking status for patients 13 years old or older: Former Smoker Other Social History Primary family support Additional Social History family hx- unknown Physical Exam Vital Signs Vital Signs First Documented: Result Date Time Pulse Ox 98 08/15 1946 B/P 143/66 08/15 1946 B/P Mean 91 08/15 1946 O2 Delivery Room air 08/15 1946 Temp 36.8 08/15 1946 Pulse 69 08/15 1946 Resp 16 08/15 1946 Last Documented: Result Date Time Pulse Ox 98 08/16 0054 B/P 116/62 05 0054 B/P Mean 80 08/16 53 Pulse 55 0553 O2 Delivery Room air 08/15 1946 Temp 36.8 08/15 1946 Resp 16 08/15 1946 Review of Vital Signs Reviewed Free Text PE Notes Free Text PE Notes General/Const Awake, Alert, moderate distress, nontoxic Head Atraumatic, Normocephalic Ears/Nose/Throat Airway patent Neck Neck Supple Resp/Chest Breath sounds NL, No respiratory distress, No rales, No rhonchi, No wheezing Cardiovascular Heart rate NL, Regular rhythm, Heart sounds NL Abdomen/GI Soft, generalized upper abdominal tenderness no guarding nonperitoneal, No distention MS No extremity swelling, NO gross deformity Skin Warm, Dry Neurologic Moving all extremities, Speech NL Psychiatric Affect NL, Mood NL Interpretation Diagnostics Lab Results Interpretation Results Laboratory Tests 08/16/232033: [Embedded Image Not Available] Laboratory Tests: 08/15 2033 Chemistry Sodium (134 - 147 mEq/L) 139 Potassium (3.4 - 5.0 mEq/L) 3.9 Chloride (100 - 108 mEq/L) 104 Carbon Dioxide (21 - 33 mEq/l) 28 Anion Gap (0 - 20) 11 BUN (7 - 25 mg/dL) 9 Creatinine (0.6 - 1.3 mg/dL) 1.1 Glomerular Filtr Rate (105 - 110) 88.1 L Glucose (77 - 141 mg/dL) 122 Calcium (8.0 - 10.5 mg/dL) 9.2 Total Bilirubin (0.0 - 1.0 mg/dL) 0.50 Direct Bilirubin (0.1 - 0.3 MG/DL) 0.10 Indirect Bilirubin (MG/DL) 0.40 AST (8 - 34 IUnit/L) 23 ALT (10 - 49 IUnit/L) 11 Total Alk Phosphatase (20 - 125 IUnit/L) 52 Troponin I High Sens (0 - 54 ng/L) < 3 Total Protein (6.4 - 8.2 g/dL) 6.8 Albumin (3.4 - 5.0 g/dL) 3.80 Lipase (13 - 57 U/L) 41 Hematology WBC (4.5 - 11.0 x10 3/uL) 6.1 RBC (4.00 - 5.60 x10 6/uL) 3.50 L Hgb (12.5 - 16.9 g/dL) 10.7 L Hct (37.5 - 50.7 %) 32.4 L MCV (81.0 - 99.0 fL) 92.6 MCH (27.0 - 33.0 pg) 30.6 MCHC (33.0 - 37.0 g/dL) 33.0 RDW (11.5 - 14.5 %) 12.7 Plt Count (150 - 400 x10 3/uL) 309 MPV (7.0 - 9.0 fL) 9.8 H Neut % (Auto) (56.0 - 77.0 %) 34.4 L Lymph % (Auto) (14.0 - 32.0 %) 43.6 H Randolph % (Auto) (4.8 - 9.0 %) 11.3 H Eos % (Auto) (0.3 - 3.7 %) 8.9 H Baso % (Auto) (0.0 - 2.0 %) 1.5 Neut # (Auto) (2.0 - 7.6 x10 3/uL) 2.09 Lymph # (Auto) (1.0 - 3.8 x10 3/uL) 2.65 Randolph # (Auto) (0.1 - 0.8 x10 3/uL) 0.69 Eos # (Auto) (0.0 - 0.2 x10 3/uL) 0.54 H Baso # (Auto) (0.0 - 0.2 x10 3/uL) 0.09 Abs Immat Gran (auto) (0.00 - 0.03 x10 3/uL) 0.02 Immature Gran % (0.0 - 2.0 %) 0.3 Nucleated RBC % (0 - 0 %) 0.0 Nucleated RBCs # (Man) (0.0 - 0.1 x10 3/uL) 0.00 Urines Urine Color (YEL/STRAW) YELLOW Urine Appearance (CLEAR) CLEAR Urine pH (5.0 - 7.0) 5.0 Ur Specific Charlotte (1.005 - 1.030) 1.026 Urine Protein (NEGATIVE) NEGATIVE Urine Glucose (UA) (NEGATIVE) NEGATIVE Urine Ketones (NEGATIVE) NEGATIVE Urine Blood (NEGATIVE) NEGATIVE Urine Nitrite (NEGATIVE) NEGATIVE Urine Bilirubin (NEGATIVE) NEGATIVE Urine Urobilinogen (0.2 - 1.0 mg/dL) 0.2 Ur Leukocyte Esterase (NEGATIVE) NEGATIVE Urine RBC (0 - 3 RBC/HPF) NONE SEEN Urine WBC (0 - 3 WBC/HPF) NONE SEEN Ur Squamous Epith Cells (NONE SEEN /HPF) NONE SEEN Urine Bacteria (NONE SEEN /HPF) NONE SEEN Hyaline Casts (NONE SEEN /LPF) 0-2 Urine Mucus (NONE SEEN /LPF) TRACE Recent Impressions: CAT SCAN - CT ABD PELVIS W/CONT 08/15 6376 Report Impression - Status: SIGNED Entered: 08/16/2023 2426 IMPRESSION: Moderate amount of retained colonic stool. Unremarkable pancreas. No peripancreatic fluid collection or inflammatory changes. Impression By: Brenda - Jonna Bernal M.D. Lab Imaging Statement Laboratory radiographic studies reviewed and considered in the medical decision-making. ECG #1 Interpretation Text/Dict Note Sinus rhythm with short OK of 106. ST elevation in inferior lateral leads suggestive of early repol. Interpreted by and reviewed by me Re-Evaluation MDM Free Text MDM Notes Free Text MDM Notes Patient is a 37-year-old with a history of chronic pancreatitis presenting with abdominal pain. Associated nausea and vomiting. Will obtain CT abdomen/pelvis and give fluids and analgesics. Re-Evaluation/Progress #1 Text/Dict Note My evaluation patient is sleeping comfortably. Upon waking up he is nontoxic- appearing. CT showed constipation. Explained to patient that this is likely contributing to his pain especially with his high doses of analgesics. No other insidious process identified on imaging. Pancreas appears unremarkable normal lipase. Will perform a trial of stool softeners and home management The patient will be discharged home with supportive care, a plan for symptom management/medication(s), and follow-up instructions that detail what to expect over the next 48 hours and what symptoms should prompt immediate return to the ED. Follow-up instructions have been explained in detail to the patient/ caregiver and the instructions have been provided in written format. They are comfortable with the plan of care and have expressed an understanding of the discharge instructions. The patient and/or caregivers are aware that any significant change in condition or worsening of symptoms should prompt an immediate return to this or the closest emergency department or a call to 911. Tissue Perfusion Reassessment Patient tissue perfusion reassessment completed. ED Course Medication(s) Ordered Medication(s) Ordered: Central Nervous System Agents Sig/José Miguel Start time Last Medication Dose Route Stop Time Status Admin Hydromorphone HCl 0.5 MG X1ED STA 08/15 2228 DC / IV 08/15 2229 2242 Morphine Sulfate 4 MG X1ED STA 08/15 2025 DC 05/04 IV 08/15 Gastrointestinal Drugs Sig/José Miguel Start time Last Medication Dose Route Stop Time Status Admin Ondansetron HCl 4 MG X1ED PRN PRN 08/15 2029 DC /04 IV 08/16 Patient Discharge Departure Vital Signs/Condition Vital Signs First Documented: Result Date Time Pulse Ox 98 08/15 1946 B/P 143/66 08/15 1946 B/P Mean 91 08/15 1946 O2 Delivery Room air 08/15 1946 Temp 36.8 08/15 1946 Pulse 69 08/15 1946 Resp 16 08/15 1946 Last Documented: Result Date Time Pulse Ox 98 05 0054 B/P 116/62 05/ 005 B/P Mean 80 /53 Pulse 55 05/53 O2 Delivery Room air 08/15 1946 Temp 36.8 08/15 1946 Resp 16 08/15 1946 All vital signs available at the time of this entry have been reviewed. Clinical Impression Clinical Impression Primary Impression: Constipation Disposition Decision Discharge )( Discharged to Home Yes )( Time 0038 )( Date 08/17/23 Discharge/Care Plan (Auto) Prescriptions Current Visit Scripts DOCUSATE SODIUM (COLACE) 0 MG PO ASDIR DOCUSATE SODIUM (COLACE) 0 MG PO ASDIR #60 CAPS Take according to label instructions. POLYETHYLENE GLYCOL 3350 (MIRALAX) 17 GM PO ASDIR POLYETHYLENE GLYCOL 3350 (MIRALAX) 17 GM PO ASDIR #30 PACKET Take as per label instructions. Patient Instructions Abdominal Pain, ED Constipation (Adult) Additional Instructions Thank you for visiting our emergency department. Follow-up with referred providers and your primary physician. Return to the ER for any concerning symptoms. Departure Forms [facility] PCP LIST [facility] OR [facility] Discharge Note I have spoken with the patient and/or caregivers. I have explained the patient's condition, diagnoses and treatment plan based on the information available to me at this time. I have answered the patient's and/or caregiver's questions and addressed any concerns. The patient and/or caregivers have as good an understanding of the patient's diagnosis, condition and treatment plan as can be expected at this point. The vital signs have been stable. The patient's condition is stable and appropriate for discharge from the emergency department. The patient will pursue further outpatient evaluation with the primary care physician or other designated or consulting physician as outlined in the discharge instructions. The patient and/or caregivers are agreeable to this plan of care and follow-up instructions have been explained in detail. The patient and/or caregivers have received these instructions in written format and have expressed an understanding of the discharge instructions. The patient and/or caregivers are aware that any significant change in condition or worsening of symptoms should prompt an immediate return to this or the closest emergency department or a call to 911. at 2101 RPT #:[id number] END OF REPORT [facility] 2023-08-10 13:01:00 [facility] ([facility]) EMERGENCY PROVIDER REPORT REPORT#:[id number] REPORT STATUS: Signed DATE:08/10/23 TIME: 1301 PATIENT: TANNER BENDER UNIT #: [id number] ROOM/BED: AGE: 37 SEX: M PCP PHYS: Robin Fernandez MD SERVICE AUTHOR: Remy Salguero RUBBER [employer] INSPECTOR TESTER * ALL edits or amendments must be made on the electronic/computer document * NoemyRemy 08/10/23 1301: HPI-Abd Pain M Under 40 Free Text HPI Notes Free Text HPI Notes Patient presents to the ED with upper abdominal pain, diarrhea, vomiting for the last 4 days. Vomiting x 4 diarrhea x 3 today. Abdominal pain radiates to his back. reports blood and black stool. History of chronic pancreatitis. Denies chest pain or shortness of breath. past surgical history appendectomy, cholecystectomy. Denies fever, chills and bodyaches, pain with urination, blood in urine, testicular pain. Currently rates his pain as 10 out of 10. Not keeping anything down. Tried Zofran but did not help. Patient was here on 07/25 with abdominal pain and again on 07/30 for chest pain. Multiple CT scans were done within this visit. General Confirmed Patient Yes Initial Greet Date/Time 08/10/23 1242 Presentation Chief Complaint Abdominal pain, Diarrhea mild, Nausea, Rectal bleeding, Vomiting mild Hx Obtained From Patient Sudden in Onset? No Risk-Abd Pain M Under 40 )( Torsion Risk factors reviewed Review of Systems ROS Statements All systems rev neg except as marked. Focused Review of Systems GI Reports: Abdominal pain, Diarrhea, Hematemesis, Nausea, Vomiting. Past Medical History - Adult Stated Complaint ABD PAIN Allergies Coded Allergies: Penicillins (Severe, THROAT SWELLS UP 06/30/23) Home Medications Active Scripts DOCUSATE SODIUM (COLACE) 0 MG PO ASDIR DOCUSATE SODIUM (COLACE) 0 MG PO ASDIR #60 CAPS Prov: 08/17/23 POLYETHYLENE GLYCOL 3350 (MIRALAX) 17 GM PO ASDIR POLYETHYLENE GLYCOL 3350 (MIRALAX) 17 GM PO ASDIR #30 PACKET Prov: 08/17/23 Reported Medications ALPRAZolam (XANAX) 2 MG PO TID PRN ANXIETY HYDROmorphone (DILAUDID) 2 MG PO Q4H PRN PRN PAIN SCALE 7-10 AMYLASE/LIPASE/PROTEA 120,000/24,000/76,000 U (CREON 24) 24,000 UNITS PO TID MEALS ALBUTEROL (PROAIR DIGIHALER 90 MCG/ACT 0.65 GM) 2 PUFF INH RTQ6H Past Medical History: Reports: Asthma, Pancreatitis. Additional Medical History Pancreatitis Past Surgical History: Denies: Abdominal surgery. Family History: Denies: CAD < 40 yrs old. Additional Family History n/c Alcohol Use Denies EtOH use Drug Use Denies recreational drugs Smoking status for patients 13 years old or older: Unknown,if ever smoked Other Social History Primary family support Additional Social History family hx- unknown Physical Exam Vital Signs Vital Signs First Documented: Result Date Time O2 Delivery Room air 08/09 1239 Resp 18 08/09 1239 Pulse Ox 99 08/09 1300 B/P 168/115 08/09 1300 B/P Mean 132.5 08/09 1300 Temp 37.0 08/09 1300 Pulse 72 08/09 1300 Last Documented: Result Date Time Pulse Ox 99 08/09 1300 B/P 168/115 08/09 1300 B/P Mean 132.5 08/09 1300 Temp 37.0 08/09 1300 Pulse 72 08/09 1300 O2 Delivery Room air 08/09 1239 Resp 08/09 1239 Review of Vital Signs Reviewed Free Text PE Notes Free Text PE Notes General/Const Awake, Alert, Cooperative, Not toxic appearing MS Head Head Atraumatic, Normocephalic Eyes Eyes No periorbital redness, No periorbital swelling, No scleral icterus Ears/Nose/Throat Ears/Nose/Throat Airway patent, No trismus, No facial swelling Resp/Chest Respiratory/Chest Atraumatic, No respiratory distress, No retractions Cardiovascular Cardiovascular Heart rate NL, Regular rhythm, Heart sounds NL Abdomen/GI Tenderness/Guarding/Rebound Tenderness RUQ, epigastric, LUQ, No guarding, No rebound tenderness. MS Back Back Inspection NL, Non-tender, No CVA tenderness Skin Skin Color NL, No rash, Warm, Turgor NL Neurologic Neurologic Oriented X3, Speech NL, No motor deficits, No sensory deficits Interpretation Diagnostics Lab Results Interpretation Results Microbiology: Date/Time Procedure - Status Source Growth 08/09 1300 Occult Blood - CAN STOOL Cancelled: Cancelled via OE: Physician Decision Lab Statement Laboratory studies reviewed and considered in the medical decision-making. Point of Care Testing Pulse Oximetry Pulse Ox % 99 On: Room air Interpretation Interpreted by me Re-Evaluation MDM ED Course Medication(s) Ordered Medication(s) Ordered: Central Nervous System Agents Sig/José Miguel Start time Last Medication Dose Route Stop Time Status Admin Morphine Sulfate 4 MG X1ED STA 08/09 1300 CAN IV 08/09 1301 Gastrointestinal Drugs Sig/José Miguel Start time Last Medication Dose Route Stop Time Status Admin Ondansetron HCl 4 MG X1ED PRN PRN 08/09 1300 DC IV Free Text MDM Notes Free Text MDM Notes Differential abdominal pain Abdominal aortic aneurysm, Acute gastroenteritis, Aortoenteric fisulta, Appendicitis (early), Bowel obstruction, Bowel perforation, Diabetic ketoacidosis, Gastroparesis, GERD, Hernia, Hypercalcemia, Inflammatory bowel disease, Mesenteric ischemia, Pancreatitis, Pericarditis/myocarditis, Peritonitis, Pyelonephritis, Sickle cell crisis, Volvulus Patient Discharge Departure Vital Signs/Condition Vital Signs First Documented: Result Date Time O2 Delivery Room air 08/09 1239 Resp 18 08/09 1239 Pulse Ox 99 08/09 1300 B/P 168/115 08/09 1300 B/P Mean 132.5 08/09 1300 Temp 37.0 08/09 1300 Pulse 72 08/09 1300 Last Documented: Result Date Time Pulse Ox 99 08/09 1300 B/P 168/115 08/09 1300 B/P Mean 132.5 08/09 1300 Temp 37.0 08/09 1300 Pulse 72 08/09 1300 O2 Delivery Room air 08/09 1239 Resp 18 08/09 1239 All vital signs available at the time of this entry have been reviewed. Condition Stable Clinical Impression Clinical Impression Primary Impression: Abdominal pain Disposition Decision Other )( Time 1353 )( Date 08/10/23 Against Medical Advice Yes Text/Dict Note eloped Elopement Note Elopement Note This patient has left the emergency department or waiting room with no communication to myself, nursing or administrative staff. There was no opportunity to discuss the patient's decision to leave, provide medical advice or discuss alternatives to leaving. The staff has made efforts to locate the patient without success. Gt Smallwood 08/29/23 2338: Patient Discharge Departure Supervising Physician Note Jaxon Saw Pt Alone I have reviewed the PA/RUBBER GOODS INSPECTOR TESTER's note and plan of care. I was available for consultation as needed at all times during the patient's visit in the emergency department. at 1818 at 2339 [facility] #:[id number] END OF REPORT [facility] 2023-08-02 00:16:00 [id number] [facility] PATIENT NAME: TANNER BENDER ADMIT DATE: 07/31/23 ACCOUNT NO: [id number] ROOM NO: 4009 AGE: 37 REPORT TYPE: eECHOCARDIOGRAM REPORT SEX: M DATE OF : [birth year] ADMITTING PHYSICIAN:Preston Escobar MD ATTENDING PHYSICIAN:Preston Escobar MD *[facility]* [address], [place] [address] Transthoracic Echocardiogram Patient: Tanner Bender Study Date: 08/01/2023 BP: 137 / 82 URN: [id number] Location: : 1985 Age: 37 Gender: M Height: 73 in / 185.4 cm Weight: 136 lb / 61.7 kg BMI/BSA: 17.9 kg/m 2 / 1.77 m 2 *Ordering Physician: * Carin Richard *Interpreting Physician: * Margareth Rivas MD *Cryptologic Technician Technical: * Brooklyn Taveras [facility] Indications: Chest Pain, unspecified. Study data: Transthoracic echocardiogram. Complete 2D, complete spectral Doppler, and color Doppler. Location: Bedside. Patient status: Observation. Patient room number: 4009C. Study status: Routine. Findings Left ventricle: The cavity size is normal. Wall thickness is normal. Systolic function is normal. The estimated ejection fraction is 55-59%. Wall motion is normal; there are no regional wall motion abnormalities. The mitral valve E-F slope is normal. Right ventricle: The cavity size is normal. Systolic function is normal. Left atrium: The atrium is normal in size. Right atrium: The atrium is normal in size. PATIENT NAME: TANNER BENDER Aorta: Aortic root: The root is normal-sized. Aortic valve: The valve is structurally normal. The valve is trileaflet. There is no evidence of stenosis. There is no regurgitation. Mitral valve: The valve is structurally normal. There is no evidence of stenosis. There is trace regurgitation. Tricuspid valve: The valve is structurally normal. There is trivial regurgitation. Pulmonic valve: The valve is structurally normal. There is no regurgitation. Pericardium: There is no pericardial effusion. Pulmonary arteries: The main pulmonary artery is normal-sized. Systemic veins: Inferior vena cava: The IVC is normal-sized. Measurements Left ventricle Value Ref 06/30/2023 KIMBERLY, LAX 4.0 cm 4.2 - 5.8 4.2 ESD, LAX 3.0 cm 2.5 - 4.0 2.9 FS, LAX 25 % 25 - 43 31 IVS, ED 1.0 cm 0.6 - 1.0 0.9 PW, ED 1.0 cm 0.6 - 1.0 1.0 IVS/PW, ED 1.03 --------- 0.99 EF 51 % 52 - 72 59 E', lat cristian, TDI 10.6 cm/sec >=10.0 8.1 E/e', lat cristian, TDI 10 <=13 9 E', med cristian, TDI 11.5 cm/sec >=7.0 9.9 E/e', med cristian, TDI 9 --------- 7 E', avg, TDI 11.1 cm/sec --------- 9.0 E/e', avg, TDI 10 <=14 8 LVOT Value Ref 06/30/2023 Diam, S 1.95 cm --------- 2.11 Area 3.0 cm 2 --------- 3.5 Peak apolo, S 1.34 m/sec --------- 1.03 Mean paolo, S 0.81 m/sec --------- 0.74 VTI, S 27.0 cm --------- 23.2 Peak grad, S 7 mm Hg --------- 4 Mean grad, S 3 mm Hg --------- 2 SV 81 ml --------- 81 Qs 14.44 L/min --------- 15.62 Qs/bsa 8.2 L/(min-m 2) --------- 8.9 SV/bsa 46 ml/m 2 --------- 46 Right ventricle Value Ref 06/30/2023 KIMBERLY, LAX 2.3 cm --------- 2.7 ESD, SAX 2.3 cm --------- Pressure, S 37 mm Hg --------- Left atrium Value Ref 06/30/2023 AP dim, ES 2.4 cm 3.0 - 4.0 2.8 Aortic valve Value Ref 06/30/2023 PATIENT NAME: TANNER BENDER ROSANA Peak v, S 1.5 m/sec --------- 1 Mean v, S 1.05 m/sec --------- 0.74 VTI, S 28.6 cm --------- 20.3 Mean grad, S 5 mm Hg --------- 2 Peak grad, S 8.6 mm Hg --------- 3.8 LVOT/AV, VTI ratio 0.94 --------- 1.15 KELL, VTI 2.81 cm 2 --------- 4.00 LVOT/AV, Vpeak ratio 0.92 --------- 1.05 KELL, Vmax 2.74 cm 2 --------- 3.67 Mitral valve Value Ref 06/30/2023 Peak E 1.07 m/sec --------- 0.69 Peak A 0.81 m/sec --------- 0.73 Decel time 177 ms --------- 161 PHT 119 ms --------- Mean grad, D 2 mm Hg --------- Peak grad, D 5.8 mm Hg --------- Peak E/A ratio 1.32 --------- 0.95 MVA, PHT 1.9 cm 2 --------- Tricuspid valve Value Ref 06/30/2023 TR peak v 2.9 m/sec <=2.8 2.3 Peak RV-RA grad, S 34 mm Hg --------- 22 Ascending aorta Value Ref 06/30/2023 AAo AP diam, S 3.2 cm --------- Pulmonary artery Value Ref 06/30/2023 Pressure, S 32.0 mm Hg --------- Systemic veins Value Ref 06/30/2023 Estimated CVP 3 mm Hg --------- Inferior vena cava Value Ref 06/30/2023 Diam 1.8 cm <=2.1 Conclusions Summary: Left ventricle: The cavity size is normal. Wall thickness is normal. Systolic function is normal. The estimated ejection fraction is 55-59%. Wall motion is normal; there are no regional wall motion abnormalities. Electronically signed by Margareth Rivas MD 08/02/2023 00:16 at 0016 PATIENT NAME: TANNER BENDER [facility] 2023-08-01 14:24:00 [facility] ([facility]) History Physical - Adult REPORT#:[id number] REPORT STATUS: Signed REPORT INITIALIZATION DATE:08/01/23 TIME: 1423 PATIENT: TANNER BENDER UNIT #: [id number] ROOM/BED: [address] : 84 AGE: 37 SEX: M ATTEND: Preston Escobar MD ADM AUTHOR: Carin Richard NP REPT SERVICE DT/TIME: 08/01/23 142 * ALL edits or amendments must be made on the electronic/computer document * History of Present Illness HPI Chief complaint: Chest pain PCP: PCP: Robin Fernandez MD HPI: This patient is a 37 year-old male with past medical history of chronic pancreatitis got admitted for worsening sharp chest pain radiating to left shoulder. ED work up included chest x-ray with no acute findings. Lab data reviewed trop I x3 negative. CTA negative for pulmonary embolism. EKG - NSR. Cardiology consulted for evaluation. Hx Obtained From Patient History Past medical history: Reports: Asthma, Pancreatitis. Additional medical history: Pancreatitis Past surgical history: Denies: Abdominal surgery. Family history: Denies: CAD < 40 yrs old. Additional family history: n/c Alcohol use: Denies EtOH use Drug use: Denies recreational drugs Smoking status for patients 13 years old or older: Unknown,if ever smoked Other social history: Primary family support Additional social history: family hx- unknown Medication/Allergy-Vaccine Hx Allergies: Coded Allergies: Penicillins (Severe, THROAT SWELLS UP 06/30/23) Review of Systems Constitutional: Denies: chills, fever. Skin: Denies: rash. Allergy/Immun: Denies: allergic reaction. Eyes: Denies: visual loss/blurred. ENT: Denies: sore throat, throat pain, throat swelling. Respiratory: Denies: productive cough (sputum), SOB, wheezing. Cardiovascular: Reports: chest pain. Denies: edema, palpitations. GI: Denies: abdominal pain, constipation, diarrhea, nausea, vomiting. : Denies: flank pain. Musculoskeletal: Extremity pain: Denies: bilateral. Heme: Denies: bleeding. Neuro: Denies: dizziness, headache. Psych: Denies: anxiety, depression. Physical Exam VS/I O Vital Signs: Date Time Temp Pulse Resp B/P B/P Pulse O2 O2 Flow FiO2 Mean Ox Delivery Rate 07/31 2250 97.7 65 16 137/89 105.2 97 Room air 07/31 1943 98.2 61 18 148/90 108.9 99 Room air 07/31 1528 98.2 61 18 138/84 101.7 98 Room air 07/31 1232 98.1 57 18 137/82 100.0 98 Room air 07/31 1114 97.7 57 129/83 98.5 100 07/31 0728 97.7 60 105/65 78.0 94 07/31 0645 98.1 60 16 102/58 72 100 07/31 0248 55 100 24 hour I O ending at 0700: 07/31 0700 07/30 1900 Intake Total Output Total Balance Patient 61.818 kg Weight Weight Stated/Reported Measurement Method PATIENT WEIGHT: Weight (lb): Weight (oz): Weight (kg): 61.818 General appearance: alert, awake, oriented, no acute distress, conversational Head/Eyes: atraumatic, normocephalic ENT: moist mucosal membranes, normal nose Neck: non-tender, no JVD Cardiovascular: regular rate rhythm, normal heart sounds Respiratory: no distress, aerating well, symmetric expansion Abdomen/GI: active bowel sounds, soft, non-tender, no distention Extremities: moves all, no edema-all extremities Musculoskeletal: normal inspection, no muscle spasm Neuro/BOBBIN DISKER: alert, oriented X 3, no motor deficits, no sensory deficits Skin: intact Psychiatry: normal affect, normal mood Results Findings/Data: Laboratory Tests: 07/31 07/31 07/31 07/31 1307 1121 1009 0122 Chemistry Troponin I (0 - 54 pg/mL) <4.0 <4.0 <4.0 Toxicology Urine Opiates Screen (<300 ng/mL) POSITIVE Urine Methadone Screen (<300 ng/mL) NEGATIVE Urine Barbiturates (<200 ng/mL) NEGATIVE Ur Phencyclidine Scrn (<25 ng/mL) NEGATIVE Ur Amphetamines Screen (<1000 ng/mL) NEGATIVE U Benzodiazepines Scrn (<200 ng/mL) POSITIVE Urine Cocaine Screen (<300 ng/mL) NEGATIVE Urine Cannabinoids (<50 ng/mL) POSITIVE Urines Urine pH (5.0 - 8.0) 6.0 Radiology data: Recent Impressions: CAT SCAN - CTA CHEST 07/31 34 Report Impression - Status: SIGNED Entered: 08/01/2023 0054 IMPRESSION: No acute findings in the chest. Impression By: [email or web address] - Edu Witt M.D. Results: labs reviewed, vital signs reviewed, current med profile rev'd Treatment Prophylaxis Treatment Prophylaxis Lines: peripheral Diagnosis, Assessment Plan Problem List/A P: 1. Chest pain 2. Chronic pancreatitis Consultants: cardiology Plan discussed with: patient, primary care physician, nurse Time spent: Time spent on patient care (minutes): 50 Code Status/Resusc. Discussion Code status: full code Free Text DxA P Notes Free Text DxA P Notes: This patient is a 37 year-old male with past medical history of chronic pancreatitis got admitted for worsening sharp chest pain radiating to left shoulder. ED work up included chest x-ray with no acute findings. Lab data reviewed trop I x3 negative. CTA negative for pulmonary embolism. EKG - NSR. Cardiology consulted for evaluation. 1. Atypical Chest pain - trop I x3 negative . Patiet had LHC on 11/11/22 and found normal coronaries. ECHO showed EF of 55-60%. Cardiology evaluating once cleared will dsicharge pt home. 2. Chronic pacreatitis- on creon. No Nausea or vomiting. 3. Substance abuse- cessation advised. 4. chronic pain syndrome- Consulted Pain managment. No on dilaudid 0.5mg IV q4 as needed. Dispo- discharge home tomorrow time spend 50min (obs) at 0001 at 2034 RPT #:[id number] END OF REPORT [facility] 2023-08-01 13:07:00 [facility] ([facility]) Cardiology Consultation REPORT#:[id number] REPORT STATUS: Signed REPORT INITIALIZATION DATE:08/01/23 TIME: 130 PATIENT: TANNER BENDER UNIT #: [id number] ROOM/BED: [address] : 84 AGE: 37 SEX: M ATTEND: Preston Escobar MD ADM AUTHOR: Steve Caba MD REPT SERVICE DT/TIME: 08/01/23 1307 * ALL edits or amendments must be made on the electronic/computer document * History of Present Illness HPI Requesting Clinician: Sathya Copeland Reason for consult: CP PCP: PCP: Robin Fernandez MD HPI: 37 yo M with ho chronic pancreatitis, chronic pain, ho drug seeking behavior, prior reassuring coronary angiography 2022, presents with sharp L sided chest pain, worse with movements of the left arm. Reports LOC after sharp severe pain. Serial TnI negative. CTA reassuring. Tele- SR. No arrhythmias. History - Adult longitudinal Past medical history: Reports: Asthma, Pancreatitis. Additional medical history: Pancreatitis Past surgical history: Denies: Abdominal surgery. Family history: Denies: CAD < 40 yrs old. Additional family history: n/c Alcohol use: Denies EtOH use Drug use: Denies recreational drugs Smoking status for patients 13 years old or older: Unknown,if ever smoked Other social history: Primary family support Additional social history: family hx- unknown Home medications: Home Medications: ALPRAZolam (XANAX) 2 MG PO TID PRN ANXIETY HYDROmorphone (DILAUDID) 2 MG PO Q4H PRN PRN PAIN SCALE 7-10 AMYLASE/LIPASE/PROTEA 120,000/24,000/76,000 U (CREON 24) 24,000 UNITS PO TID MEALS ALBUTEROL (PROAIR DIGIHALER 90 MCG/ACT 0.65 GM) 2 PUFF INH RTQ6H Allergies: Coded Allergies: Penicillins (Severe, THROAT SWELLS UP 06/30/23) Review of Systems All systems rev neg: except as marked Objective General VS/I O: Vital Signs: Date Time Temp Pulse Resp B/P B/P Pulse O2 O2 Flow FiO2 Mean Ox Delivery Rate 07/31 1232 98.1 57 18 137/82 100.0 98 Room air 07/31 1114 97.7 57 129/83 98.5 100 07/31 0728 97.7 60 105/65 78.0 94 07/31 0645 98.1 60 16 102/58 72 100 07/31 0248 55 100 07/30 2225 98.0 80 16 136/83 100 98 Room air 24 hour I O ending at 0700: 07/31 0700 07/30 1900 Intake Total Output Total Balance Patient 61.818 kg Weight Weight Stated/Reported Measurement Method PATIENT WEIGHT: Weight (lb): Weight (oz): Weight (kg): 61.818 Medications: Active Meds + DC'd Last 24 Hrs Hydromorphone HCl (Hydromorphone HCl) 1 MG ONCE ONE IV (DC) Hydromorphone HCl (Hydromorphone HCl) 0.5 MG Q3H PRN PRN IV Acetaminophen (TYLENOL) 650 MG Q4H PRN PRN PO Aspirin (ASPIRIN) 325 MG X1ED ONE PO (DC) Morphine Sulfate (morphine SULFATE) 4 MG Q4H PRN PRN IV (DC) Ondansetron HCl (ondansetron HCL) 4 MG Q6H PRN PRN IV Sodium Chloride (SODIUM CHLORIDE 0.9%) 1,000 ML .Q8H IV Iopamidol (ISOVUE-370) 0 .STK-MED ONE .ROUTE (DC) Aspirin (ASPIRIN) 324 MG X1ED STA PO (DC) Morphine Sulfate (morphine SULFATE) 4 MG X1ED STA IV (DC) Ondansetron HCl (ondansetron HCL) 4 MG X1ED STA IV (DC) Sodium Chloride (SODIUM CHLORIDE 0.9%) 1,000 ML X1ED STA IV (DC) Physical Exam General appearance: alert, oriented Neck: no bruit/NL carotids, no JVD Cardiovascular: CV assessment: regular rate and rhythm, normal heart sounds Respiratory: clear to auscultation, no distress Abdomen: soft, non-tender Upper extremity: UE assessment: normal temperature Lower extremity: LE assessment: normal temperature, no edema Results Findings/Data: Laboratory Tests 07/31 07/31 07/30 1009 0122 2309 Chemistry Sodium (136 - 145 mmol/L) 139 Potassium (3.5 - 5.1 mmol/L) 3.7 Chloride (98 - 107 mmol/L) 103.0 Carbon Dioxide (21 - 32 mmol/L) 28.0 Anion Gap (10 - 20 mmol/L) 11.7 BUN (7 - 18 mg/dL) 10 Creatinine (0.7 - 1.3 mg/dL) 0.90 Glomerular Filtr Rate (>=60 mL/min) > 60 BUN/Creatinine Ratio (10 - 20) 11.4 Glucose (74 - 106 mg/dL) 97 Calcium (8.5 - 10.1 mg/dL) 8.8 Total Bilirubin (0.0 - 1.0 mg/dL) 0.90 Direct Bilirubin (0.0 - 0.20 mg/dL) 0.30 H AST (15 - 37 IUnit/L) 14 L ALT (12 - 78 IUnit/L) 15 Total Alk Phosphatase (45 - 117 IUnit/L) 57 Troponin I (0 - 54 pg/mL) <4.0 <4.0 <4.0 Total Protein (6.4 - 8.2 gram/dL) 7.6 Albumin (3.4 - 5.0 g/dL) 4.1 Globulin (2.7 - 4.2 gram/dL) 3.5 Albumin/Globulin Ratio (0.75 - 1.50) 1.2 Lipase (12 - 57 U/L) 61 H Laboratory Tests 07/30 07/30 2309 2309 Coagulation INR (0.8 - 1.2) 1.1 PT Patient/Control Mix (10.0 - 14.0 seconds) 11.9 D-Dimer (0 - 500 ng/mLFEU) 587 *H Laboratory Tests 07/30 2309 Hematology WBC (4.5 - 12.5 K/mm3) 10.8 RBC (4.0 - 5.8 mill/mm3) 3.98 L Hgb (13.0 - 17.5 gram/dL) 12.2 L Hct (42.0 - 52.0 %) 37.0 L MCV (80 - 98 fL) 93.0 MCH (27.0 - 33.0 picogram) 30.7 MCHC (33.0 - 36.0 gram/dL) 33.0 RDW (11.6 - 16.2 %) 13.2 Plt Count (150 - 450 K/mm3) 323 MPV (6.7 - 11.0 fL) 10.2 Laboratory Tests 07/31 1121 Toxicology Urine Opiates Screen (<300 ng/mL) POSITIVE Urine Methadone Screen (<300 ng/mL) NEGATIVE Urine Barbiturates (<200 ng/mL) NEGATIVE Ur Phencyclidine Scrn (<25 ng/mL) NEGATIVE Ur Amphetamines Screen (<1000 ng/mL) NEGATIVE U Benzodiazepines Scrn (<200 ng/mL) POSITIVE Urine Cocaine Screen (<300 ng/mL) NEGATIVE Urine Cannabinoids (<50 ng/mL) POSITIVE Laboratory Tests 07/31 1121 Urines Urine pH (5.0 - 8.0) 6.0 Laboratory Tests 07/31 07/31 07/30 1009 0122 2309 Chemistry Troponin I (0 - 54 pg/mL) <4.0 <4.0 <4.0 Radiology Data: Recent Impressions: RADIOLOGY - XR CHEST 1 V 07/30 2241 Report Impression - Status: SIGNED Entered: 07/31/20232257 IMPRESSION: No acute cardiopulmonary process. Location: Impression By: Justin Witt M.D. CAT SCAN - CT HEAD/BRAIN W/O CONT 07/30 2249 Report Impression - Status: SIGNED Entered: 07/31/20232304 IMPRESSION: Negative CT head. Location: Impression By: Justin Witt M.D. CAT SCAN - CTA CHEST 07/31 0035 Report Impression - Status: SIGNED Entered: 08/01/2023 0054 IMPRESSION: No acute findings in the chest. Impression By: Justin - Edu Witt M.D. Diagnosis, Assessment Plan Problem List/A P: 1. Chronic pain with drug dependence 2. Drug-seeking behavior 3. Chest pain Free Text DxA P Notes Free Text DxA P Notes: 37 yo M with ho chronic pancreatitis, chronic pain, ho drug seeking behavior, prior reassuring coronary angiography 2022, presents with sharp L sided chest pain, worse with movements of the left arm. Reports LOC after sharp severe pain. Serial TnI negative. CTA reassuring. Tele- SR. No arrhythmias. Recs: Trial non-opiate analgesics Outpatient ortho evaluation Outpatient fu for cardiac telemetry No additional inpatient cardiac vargas advised at 2230 RPT #:[id number] END OF REPORT [facility] 2023-07-31 22:30:00 [facility] ([facility]) EMERGENCY PROVIDER REPORT REPORT#:[id number] REPORT STATUS: Signed DATE:07/31/23 TIME: 2229 PATIENT: TANNER BENDER UNIT #: [id number] ROOM/BED: AGE: 37 SEX: M PCP PHYS: Robin Fernandez MD SERVICE AUTHOR: Iggy Copeland MD * ALL edits or amendments must be made on the electronic/computer document * HPI-Chest Pain Under 40 General Initial Greet Date/Time 07/31/232224 Presentation Chief Complaint Chest pain Hx Obtained From Patient Sudden in Onset? No Onset Occurred Today Symptom Duration Constant (non-stuttering 12+ hrs), Lasting hours Context of Onset At rest Location Chest L Quality Same as prior, Aching Radiation Does not radiate. )( Migration/Movement None Pain/Sev: Onset Mild Pain/Sev: Current Mild Associated with Denies: Diaphoresis, Dizziness, Lightheaded, Near-syncope, Shortness of breath, Syncope. Exacerbated by Nothing Relieved by Nothing Free Text HPI Notes Free Text HPI Notes Patient states he had chest pain, shortness of breath, and a syncopal episode at work falling and hitting his head. Denies focal numbness, focal weakness, changes in vision/speech/hearing/gait. Risk-Chest Pain Under 40 Risk Stratification )( Coronary Artery Disease Risk factors reviewed Thoracic Aortic Dissection Risk factors reviewed )( Pulmonary Embolism Risk factors reviewed )( HEART for MACE )( HEART for MACE Response Value History Mod index of suspicion 1 ECG Interpretation Nonspec repol disturb 1 Age Age under 45 0 Risk Factors for CAD 1-2 CAD risk factors 1 Troponin < or = to NL troponin 0 Total 3 Well's PE Score <2 pts (low risk 1.3%) PERC Rule No: Age 50 or over, Heart rate 100 or over, O2 sat on RA < 95%, Prior Hx of DVT/ PE, Recent trauma or surgery, Hemoptysis, Exogenous estrogen use, Unilateral leg swelling. Review of Systems ROS Statements All systems rev neg except as marked. Focused Review of Systems GI Denies: Abdominal pain, Diarrhea, Nausea, Vomiting. Neurologic Denies: Change LOC, Dizziness, Focal weakness, Headache, Numbness, Slurred speech. Past Medical History - Adult Stated Complaint LOC, CHEST PAIN AND SOB Allergies Coded Allergies: Penicillins (Severe, THROAT SWELLS UP 06/30/23) Home Medications Reported Medications ALPRAZolam (XANAX) 2 MG PO TID PRN ANXIETY HYDROmorphone (DILAUDID) 2 MG PO Q4H PRN PRN PAIN SCALE 7-10 AMYLASE/LIPASE/PROTEA 120,000/24,000/76,000 U (CREON 24) 24,000 UNITS PO TID MEALS ALBUTEROL (PROAIR DIGIHALER 90 MCG/ACT 0.65 GM) 2 PUFF INH RTQ6H Past Medical History: Reports: Asthma, Pancreatitis. Additional Medical History Pancreatitis Past Surgical History: Denies: Abdominal surgery. Family History: Denies: CAD < 40 yrs old. Additional Family History n/c Alcohol Use Denies EtOH use Drug Use Denies recreational drugs Other Social History Primary family support Additional Social History family hx- unknown Physical Exam Vital Signs Vital Signs First Documented: Result Date Time Pulse Ox 98 07/30 2224 B/P 136/83 07/30 2224 B/P Mean 100 07/30 2224 O2 Delivery Room air 07/30 2224 Temp 36.7 07/30 2224 Pulse 80 07/30 2224 Resp 16 07/30 2224 Last Documented: Result Date Time Pulse Ox 98 07/30 2224 B/P 136/83 04/18 2225 B/P Mean 100 07/30 2224 O2 Delivery Room air 07/30 2224 Temp 36.7 07/30 2224 Pulse 80 07/30 2224 Resp 16 07/30 2224 Review of Vital Signs Reviewed Focused PE General/Const General/Const Awake, Alert, Well appearing Eyes Eyes PERRL MS Neck Neck Supple, Full range of motion, No swelling, Non-tender, No masses, No JVD Resp/Chest Respiratory/Chest Breath sounds NL, Breath sounds = bilat, No respiratory distress, No rales, No rhonchi, No wheezing, No chest tenderness Cardiovascular Cardiovascular Heart rate NL, Regular rhythm, Heart sounds NL, No murmurs, Peripheral circulation NL, Pulses = bilaterally, No gross BP differential Abdomen/GI Abdomen/GI Soft, Non-tender, No guarding, No rebound MS Back Back Inspection NL, Non-tender, No CVA tenderness MS Lower Extrem Lower Ext/Pelvis/MS Inspection NL, No swelling, Non-tender, No erythema, No deformity, Neurologic intact, Vascular intact, No edema Text/Dict Notes No calf pain or swelling bilaterally. Negative Homans sign bilaterally. Skin Skin Color NL, Warm, Dry, Turgor NL Neurologic Neurologic Oriented X3, Speech NL, No motor deficits, No sensory deficits Psychiatric Psychiatric Affect NL, Mood NL, Thought content NL Interpretation Diagnostics Lab Results Interpretation Results Laboratory Tests 07/31/232308: [Embedded Image Not Available] Laboratory Tests: 07/30 2309 Chemistry Sodium (136 - 145 mmol/L) 139 Potassium (3.5 - 5.1 mmol/L) 3.7 Chloride (98 - 107 mmol/L) 103.0 Carbon Dioxide (21 - 32 mmol/L) 28.0 Anion Gap (10 - 20 mmol/L) 11.7 BUN (7 - 18 mg/dL) 10 Creatinine (0.7 - 1.3 mg/dL) 0.90 Glomerular Filtr Rate (>=60 mL/min) > 60 BUN/Creatinine Ratio (10 - 20) 11.4 Glucose (74 - 106 mg/dL) 97 Calcium (8.5 - 10.1 mg/dL) 8.8 Total Bilirubin (0.0 - 1.0 mg/dL) 0.90 Direct Bilirubin (0.0 - 0.20 mg/dL) 0.30 H AST (15 - 37 IUnit/L) 14 L ALT (12 - 78 IUnit/L) 15 Total Alk Phosphatase (45 - 117 IUnit/L) 57 Troponin I (0 - 54 pg/mL) <4.0 Total Protein (6.4 - 8.2 gram/dL) 7.6 Albumin (3.4 - 5.0 g/dL) 4.1 Globulin (2.7 - 4.2 gram/dL) 3.5 Albumin/Globulin Ratio (0.75 - 1.50) 1.2 Lipase (12 - 57 U/L) 61 H Coagulation INR (0.8 - 1.2) 1.1 PT Patient/Control Mix (10.0 - 14.0 seconds) 11.9 D-Dimer (0 - 500 ng/mLFEU) 587 *H Hematology WBC (4.5 - 12.5 K/mm3) 10.8 RBC (4.0 - 5.8 mill/mm3) 3.98 L Hgb (13.0 - 17.5 gram/dL) 12.2 L Hct (42.0 - 52.0 %) 37.0 L MCV (80 - 98 fL) 93.0 MCH (27.0 - 33.0 picogram) 30.7 MCHC (33.0 - 36.0 gram/dL) 33.0 RDW (11.6 - 16.2 %) 13.2 Plt Count (150 - 450 K/mm3) 323 MPV (6.7 - 11.0 fL) 10.2 Recent Impressions: RADIOLOGY - XR CHEST 1 V 07/302 Report Impression - Status: SIGNED Entered: 07/31/2023 2258 IMPRESSION: No acute cardiopulmonary process. Location: Impression By: Justin Witt M.D. CAT SCAN - CT HEAD/BRAIN W/O CONT 07/30 2250 Report Impression - Status: SIGNED Entered: 07/31/2023 2305 IMPRESSION: Negative CT head. Location: Impression By: Justin Witt M.D. CAT SCAN - CTA CHEST 07/31 0035 Report Impression - Status: SIGNED Entered: 08/01/2023 0054 IMPRESSION: No acute findings in the chest. Impression By: [email or web address] - Edu Witt M.D. ECG #1 Interpretation Text/Dict Note OK 102 Time 2228 Interpreted by and reviewed by me, Independently interpreted, ED physician NL ECG Interpretation Normal rate, No STEMI, Normal QRS, Normal axis, Adequate tracing Rate 76 ECG Q-T-ST - TN Non-specific ST changes Re-Evaluation MDM Free Text MDM Notes Free Text MDM Notes Differential diagnosis: Acute coronary syndrome, Acute myocardial infarct, Aortic dissection, Cholecystitis, Cholelithiasis, Congestive heart failure, Costochondritis, Dysrhythmia, Myocardial infarction, Myocarditis, Peptic ulcer disease, Pericarditis, Pneumomediastinum, Pneumothorax, Pulmonary embolism, Stable angina, Unstable angina Previous hospital records noted. CT angio chest performed on June 17, 2023 shows no acute findings. CT abdomen pelvis with IV contrast performed on June 17, 2023 shows no acute findings. Re-Evaluation/Progress #1 Text/Dict Note Patient appears nontoxic and improved in clinical condition. Mental status and neurologic exam unchanged. No chest pain or shortness of breath. Lungs cta bilaterally. Abdomen soft, NTND. Labs independently reviewed and interpreted by me. Time of Re-Eval 0123 Re-Eval Status Improved ED Course Medication(s) Ordered Medication(s) Ordered: Central Nervous System Agents Sig/José Miguel Start time Last Medication Dose Route Stop Time Status Admin Acetaminophen 650 MG Q4H PRN PRN 07/31 0130 UNV PO 07/31 1327 Aspirin 325 MG X1ED ONE 07/31 0130 UNV PO 07/31 0131 Morphine Sulfate 4 MG Q4H PRN PRN 07/31 0130 UNV IV 07/31 1327 Aspirin 324 MG X1ED STA 07/30 2228 DC 07/31 PO 07/30 2229 0000 Morphine Sulfate 4 MG X1ED STA 07/30 2228 DC 07/31 IV 07/30 2229 0000 Diagnostic Agents Sig/José Miguel Start time Last Medication Dose Route Stop Time Status Admin Iopamidol 0 .STK-MED ONE 07/31 0038 DC 07/31 .ROUTE 0040 Electrolytic, Caloric, And Sneha Sig/José Miguel Start time Last Medication Dose Route Stop Time Status Admin Sodium Chloride 1,000 ML .Q8H 07/31 0130 UNV IV 07/31 1327 Sodium Chloride 1,000 ML X1ED STA 07/30 2228 DC 07/31 IV 07/30 2327 0000 Gastrointestinal Drugs Sig/José Miguel Start time Last Medication Dose Route Stop Time Status Admin Ondansetron HCl 4 MG Q6H PRN PRN 07/31 0130 UNV IV 07/31 1327 Ondansetron HCl 4 MG X1ED STA 07/308 DC 07/30 IV 07/30 2228 2359 Patient Discharge Departure Vital Signs/Condition Vital Signs First Documented: Result Date Time Pulse Ox 98 07/30 2225 B/P 136/83 07/30 2225 B/P Mean 100 07/30 2225 O2 Delivery Room air 07/30 2225 Temp 36.7 07/30 2225 Pulse 80 07/30 2225 Resp 16 07/30 2224 Last Documented: Result Date Time Pulse Ox 98 07/30 2225 B/P 136/83 07/30 2225 B/P Mean 100 07/30 2225 O2 Delivery Room air 07/30 2225 Temp 36.7 07/30 2225 Pulse 80 07/30 222 Resp 16 07/30 2224 All vital signs available at the time of this entry have been reviewed. Clinical Impression Clinical Impression Primary Impression: Syncope Disposition Decision Hospitalize Hosp Physician Name Preston Escobar MD Hosp Physician Hospitalist Request Time 0124 Request Date 08/01/23 )( Accepts Hospitalization Yes )( Accepted Time 0124 )( Accepted Date 08/01/23 Call Information will see patient, agrees with eval, agrees with plan Quality Measures Syncope Concern for IC injury, Concern for IC bleed at 0128 RPT #:[id number] END OF REPORT [facility] 2023-07-31 22:28:00 [id number] [facility] PATIENT NAME: TANNER BENDER ADMIT DATE: 07/31/23 ACCOUNT NO: [id number] ROOM NO: .[id number] AGE: 37 REPORT TYPE: eEKG REPORT SEX: M DATE OF : [birth year] ADMITTING PHYSICIAN:Preston Escobar MD ATTENDING PHYSICIAN:Preston Escobar MD Order: [id number] Test Reason : Test Date/Time Stamp: FriJul 31 2023 22:28:11 Blood Pressure : / mmHG Vent. Rate : 076 BPM Atrial Rate : 076 BPM P-R Int : 102 ms QRS Dur : 088 ms QT Int : 364 ms P-R-T Axes : 045 085 069 degrees QTc Int : 409 ms Sinus rhythm with short OK Voltage criteria for left ventricular hypertrophy Early repolarization Abnormal ECG When compared with ECG of 31-JUL-2023 19:51, Incomplete right bundle branch block is no longer present Confirmed by ESTRELLITA MATUTE MD ([id number]) on 08/01/2023 4:05:08 PM Referred By: Robin Fernandez Confirmed by:ESTRELLITA MATUTE MD at 1605 PATIENT NAME: TANNER BENDER [facility] 2023-07-26 01:20:00 [facility] ([facility]) EMERGENCY PROVIDER REPORT REPORT#:[id number] REPORT STATUS: Signed DATE:07/26/23 TIME: 012 PATIENT: TANNER BENDER UNIT #: [id number] ROOM/BED: AGE: 37 SEX: M PCP PHYS: Robin Fernandez MD SERVICE AUTHOR: Robin Castano PA * ALL edits or amendments must be made on the electronic/computer document * Robin Castano 07/26/23 0120: HPI-General Illness General Initial Greet Date/Time 07/26/23 0047 Presentation Chief Complaint Abdominal pain Free Text HPI Notes Free Text HPI Notes 37-year-old male presents to the emergency department with reported pancreatitis presents to the emergency department for left-sided upper/epigastric pain with associated nausea and vomiting for the past 5 days. He states he went to a clinic 4 days ago where they took his blood work and called him today and told him he had a lipase of over 800. He denies any EtOH abuse reports history of cholecystectomy, appendectomy, any familial hypercholesteremia. No fevers. Review of Systems / Other Histories Constitutional: Negative except as documented in history of present illness. Eye: Negative except as documented in history of present illness. Ear/Nose/Mouth/Throat: Negative except as documented in history of present illness. Respiratory: Negative except as documented in history of present illness. Cardiovascular: Negative except as documented in history of present illness. Gastrointestinal: Negative except as documented in history of present illness. Genitourinary: Negative except as documented in history of present illness. Musculoskeletal: Negative except as documented in history of present illness. Neurologic: Negative except as documented in history of present illness. Psychiatric: Negative except as documented in history of present illness. Physical Exam General: alert, no acute distress, nontoxic appearing Derm: warm, dry, intact Head: no trauma, normocephalic. Neck: trachea midline. Eye: normal conjunctiva, sclera clear ENMT: oral mucosa moist, no pharyngeal erythema, absent exudates Cardiovascular: regular rate and rhythm good S1 and S2 sounds, normal peripheral perfusion, no edema. Respiratory: lungs CTA, breath sounds equal, respirations non labored , equal chest wall expansion Gastrointestinal: soft, non distended, tenderness to palpation to the left upper abdominal quadrant, epigastrium, no Rodriguez Green or Clayton sign Musculoskeletal: Moves extremities freely, no gross atrophy or deformities noted Neurological: affect appropriate for age, speech normal. I have seen and interpreted this EKG with my attending physician. EKG interpretation: Sinus bradycardia rhythm with rate of 50 beats per minute. Normal axis, no QTC prolongation there is some ST elevation to the lateral leads V3 through V6 however this is old compared to his EKG in June 2023. MDM: Differential diagnosis includes but is not limited to SBO, ischemic bowel, constipation, ileus, appendicitis, cholelithiasis, choledocholithiasis, cholecystitis, cholangitis, pancreatitis, gastroenteritis, pyelonephritis, renal stone, hepatitis, PUD, gastritis, diverticulitis, ischemic bowel, inguinal hernia, IBD, IBS, UTI, testicular versus ovarian torsion I do not suspect any acute emergent etiology for today's visit. Laboratory findings reveal no elevated lipase, no leukocytosis, CT imaging shows no peripancreatitis or inflammatory stranding. There does appear to be some fluid- filled bowel suggestive of potential enteritis. Did discuss this with patient at bedside and he states he already has some Zofran and Bentyl at home. I informed her to take that as needed I do not suspect this is infectious in nature. EKG did reveal some ST elevation in the lateral leads however compared to his last EKG this is not new. 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 Did discuss findings with the patient. Shared decision making was made at bedside with patient for outpatient management with no further needs prior to discharge. Past Medical History - Adult Stated Complaint N/V 3 DAYS/ELEVATED LIPASE/HX OF PANCREATITIS Allergies Coded Allergies: Penicillins (Severe, THROAT SWELLS UP 06/30/23) Home Medications Reported Medications ALPRAZolam (XANAX) 2 MG PO TID PRN ANXIETY HYDROmorphone (DILAUDID) 2 MG PO Q4H PRN PRN PAIN SCALE 7-10 AMYLASE/LIPASE/PROTEA 120,000/24,000/76,000 U (CREON 24) 24,000 UNITS PO TID MEALS ALBUTEROL (PROAIR DIGIHALER 90 MCG/ACT 0.65 GM) 2 PUFF INH RTQ6H Physical Exam Vital Signs Vital Signs First Documented: Result Date Time Pulse Ox 99 07/24 234 B/P 161/91 07/24 2348 B/P Mean 114 07/24 2348 O2 Delivery Room air 07/24 2348 Temp 36.8 07/24 2348 Pulse 64 07/24 234 Resp 16 07/24 2348 Last Documented: Result Date Time Pulse Ox 100 07/25 0230 B/P 144/100 07/25 0230 B/P Mean 118 07/25 0230 Pulse 53 07/25 0230 O2 Delivery Room air 07/24 2348 Temp 36.8 07/24 2348 Resp 16 07/24 2348 Review of Vital Signs Reviewed Interpretation Diagnostics Lab Results Interpretation Results Laboratory Tests 07/26/23 010: [Embedded Image Not Available] Laboratory Tests: 07/25 102 Chemistry Sodium (134 - 147 mEq/L) 140 Potassium (3.4 - 5.0 mEq/L) 3.3 L Chloride (100 - 108 mEq/L) 106 Carbon Dioxide (21 - 33 mEq/l) 28 Anion Gap (0 - 20) 9 BUN (7 - 25 mg/dL) 9 Creatinine (0.6 - 1.3 mg/dL) 0.9 Glomerular Filtr Rate (105 - 110) 112.1 H Glucose (77 - 141 mg/dL) 92 Calcium (8.0 - 10.5 mg/dL) 8.6 Total Bilirubin (0.0 - 1.0 mg/dL) 0.70 Direct Bilirubin (0.1 - 0.3 MG/DL) 0.20 Indirect Bilirubin (MG/DL) 0.50 AST (8 - 34 IUnit/L) 23 ALT (10 - 49 IUnit/L) 15 Total Alk Phosphatase (20 - 125 IUnit/L) 53 Troponin I High Sens (0 - 54 ng/L) 8 Total Protein (6.4 - 8.2 g/dL) 7.4 Albumin (3.4 - 5.0 g/dL) 4.20 Cholesterol (<200 mg/dL) 109 HDL Cholesterol (40 - 60 MG/DL) 49.5 Lipase (13 - 57 U/L) 51 Hematology WBC (4.5 - 11.0 x10 3/uL) 8.1 RBC (4.00 - 5.60 x10 6/uL) 3.64 L Hgb (12.5 - 16.9 g/dL) 11.2 L Hct (37.5 - 50.7 %) 33.1 L MCV (81.0 - 99.0 fL) 90.9 MCH (27.0 - 33.0 pg) 30.8 MCHC (33.0 - 37.0 g/dL) 33.8 RDW (11.5 - 14.5 %) 12.9 Plt Count (150 - 400 x10 3/uL) 255 MPV (7.0 - 9.0 fL) 10.5 H Neut % (Auto) (56.0 - 77.0 %) 60.0 Lymph % (Auto) (14.0 - 32.0 %) 24.1 Randolph % (Auto) (4.8 - 9.0 %) 8.9 Eos % (Auto) (0.3 - 3.7 %) 5.7 H Baso % (Auto) (0.0 - 2.0 %) 1.1 Neut # (Auto) (2.0 - 7.6 x10 3/uL) 4.83 Lymph # (Auto) (1.0 - 3.8 x10 3/uL) 1.94 Randolph # (Auto) (0.1 - 0.8 x10 3/uL) 0.72 Eos # (Auto) (0.0 - 0.2 x10 3/uL) 0.46 H Baso # (Auto) (0.0 - 0.2 x10 3/uL) 0.09 Abs Immat Gran (auto) (0.00 - 0.03 x10 3/uL) 0.02 Immature Gran % (0.0 - 2.0 %) 0.2 Nucleated RBC % (0 - 0 %) 0.0 Nucleated RBCs # (Man) (0.0 - 0.1 x10 3/uL) 0.00 Urines Urine Color (YEL/STRAW) STRAW Urine Appearance (CLEAR) CLEAR Urine pH (5.0 - 7.0) 7.0 Ur Specific Charlotte (1.005 - 1.030) 1.008 Urine Protein (NEGATIVE) NEGATIVE Urine Glucose (UA) (NEGATIVE) NEGATIVE Urine Ketones (NEGATIVE) NEGATIVE Urine Blood (NEGATIVE) NEGATIVE Urine Nitrite (NEGATIVE) NEGATIVE Urine Bilirubin (NEGATIVE) NEGATIVE Urine Urobilinogen (0.2 - 1.0 mg/dL) 0.2 Ur Leukocyte Esterase (NEGATIVE) NEGATIVE Urine RBC (0 - 3 RBC/HPF) 0-3 Urine WBC (0 - 3 WBC/HPF) NONE SEEN Ur Squamous Epith Cells (NONE SEEN /HPF) NONE SEEN Urine Bacteria (NONE SEEN /HPF) NONE SEEN Recent Impressions: CAT SCAN - CT ABD PELVIS W/CONT 07/26 211 Report Impression - Status: SIGNED Entered: 07/26/2023 0232 IMPRESSION: 1. Fluid distended small bowel may correspond to enteritis. 2. No evidence of peripancreatic inflammation. Impression By: [email or web address] - Fazal Shah M.D. Re-Evaluation MDM ED Course Medication(s) Ordered Medication(s) Ordered: Central Nervous System Agents Sig/José Miguel Start time Last Medication Dose Route Stop Time Status Admin Morphine Sulfate 4 MG X1ED STA 07/25 53 DC 07/25 IV 07/25 0055 0158 Diagnostic Agents Sig/José Miguel Start time Last Medication Dose Route Stop Time Status Admin Iopamidol 100 ML .STK-MED ONE 07/25 217 DC 07/25 IV 07/25 021 0218 Electrolytic, Caloric, And Sneha Sig/José Miguel Start time Last Medication Dose Route Stop Time Status Admin Sodium Chloride 1,000 ML X1ED STA 07/254 DC 07/25 IV 07/25 0153 0158 Gastrointestinal Drugs Sig/José Miguel Start time Last Medication Dose Route Stop Time Status Admin Ondansetron HCl 4 MG X1ED PRN PRN 07/25 0100 DC 07/25 IV 07/26 005 0157 Patient Discharge Departure Vital Signs/Condition Vital Signs First Documented: Result Date Time Pulse Ox 99 07/24 2348 B/P 161/91 07/24 2348 B/P Mean 114 07/24 2348 O2 Delivery Room air 07/24 2348 Temp 36.8 07/24 234 Pulse 64 07/24 2349 Resp 16 07/24 2348 Last Documented: Result Date Time Pulse Ox 100 07/25 0230 B/P 144/100 07/25 0230 B/P Mean 118 07/25 0230 Pulse 53 07/25 0230 O2 Delivery Room air 07/24 2348 Temp 36.8 07/24 234 Resp 16 07/24 2348 All vital signs available at the time of this entry have been reviewed. Condition Stable Clinical Impression Clinical Impression Primary Impression: Enteritis Disposition Decision Discharge )( Discharged to Home Yes )( Time 030 )( Date 07/26/23 Discharge/Care Plan Patient Instructions ED Gastroenteritis, Noninfectious Lelo Brand 07/26/23 0819: Patient Discharge Departure Discharge/Care Plan Referrals Provider Referral: Kika Ortega MD Address: [address] [place] [address] Supervising Physician Note MidLv Saw Pt Alone I have reviewed the PA/RUBBER GOODS INSPECTOR TESTER's note and plan of care. I was available for consultation as needed at all times during the patient's visit in the emergency department. I agree with the clinical impression, plan and disposition. at 0316 at 0820 RPT #:[id number] END OF REPORT [facility] 2023-07-24 21:23:00 [id number] [place] [address] PATIENT NAME: TANNER BENDER ADMIT DATE: 06/30/23 ACCOUNT NO: [id number] ROOM NO: G.[id number] AGE: 37 REPORT TYPE: 360 - QUERY RESPONSE DOCUMENT SEX: M ADMITTING PHYSICIAN:Henry Mares MD ATTENDING PHYSICIAN:Henry Mares MD Provider Query QUERY TEXT: Clarification Conflicting Diagnosis Procedure 360MD Query related questions should be directed to: [facility] Coding Query Helpline Based on your clinical judgement, please clarify the following conflicting documentation: [After study can you please clarify the final diagnosis for this patient. Hospitalist HP STEMI. Cardiac catheterization with no significant stenosis or culprit lesion. Cardiology consultation chest pain, abnormal EKG. Reasonable options to include but not limited to: STEMI ruled in STEMI ruled out Chest pain, NOS Abnormal EKG Other diagnosis. Please specify] The patient's Clinical Indicators include: Admit OE order: STEMI Hospitalist History and Physical 06/30/2023:- STEMI, ST elevations in leads V3, V4, V5, V6. - CP due to STEMI. Cardiac catheterization 06/30/2023: No significant obstructive disease identified. Cardiology Consultation 06/30/2023: 1.Chest pain 2. Chronic pancreatitis 3. Abnormal EKG He had WESLEY II flow however no significant major issues and no culprit. Patient has had multiple hospitalization visits and prior heart catheterizations due to chest pain and chest discomfort. Recommend chronic pain management and etiology per other teams, and other issues be looked into. Lab Record: TROP-I HIGH SENSITIVITY (ng/L) < 3 Options provided: -- Respond - Create new note now -- Dismiss - Not applicable / Not valid -- Dismiss - Clinically unable to determine / Unknown -- Assign to another provider QUERY RESPONSE: STEMI is ruled out Query created by: Bonilla Banuelos on 07/18/2023 9:08 AM at 2123 PATIENT NAME: TANNER BENDER [facility] 2023-07-14 07:49:00 [facility] ([facility]) GE Consultation Note REPORT#:[id number] REPORT STATUS: Signed REPORT INITIALIZATION DATE:07/14/23 TIME: 748 PATIENT: TANNER BENDER UNIT #: [id number] ROOM/BED: [place] [id number] : [birth year] AGE: 37 SEX: M ATTEND: Henry Mares MD ADM AUTHOR: Maru Morgan MD REPT SERVICE DT/TIME: 07/14/23 0749 * ALL edits or amendments must be made on the electronic/computer document * History of Present Illness Requesting clinician: Dr. Mares Reason for consult: Acute pancreatitis Chief complaint: Acute pancreatitis PCP: PCP: Robin Fernandez MD History - Adult longitudinal Past medical history: Reports: Asthma, Pancreatitis. Additional medical history: Pancreatitis Past surgical history: Denies: Abdominal surgery. Family history: Denies: CAD < 40 yrs old. Additional family history: n/c Alcohol use: Denies EtOH use Drug use: Denies recreational drugs Smoking status for patients 13 years old or older: Never Smoker Other social history: Primary family support Additional social history: family hx- unknown Allergies: Coded Allergies: Penicillins (Severe, THROAT SWELLS UP 06/30/23) Review of Systems All systems rev neg: except as marked Objective Physical Exam VS/I O: Last Documented: Result Date Time Pulse Ox 98 07/13 0710 Pulse 57 07/13 0710 B/P 134/93 07/13 0243 B/P Mean 106.3 07/13 0243 Temp 97.3 07/13 0243 O2 Delivery Room air 07/12 2020 Resp 16 07/12 2020 24 hour I O ending at 0700: 07/13 0700 07/12 1900 Intake Total Output Total Balance Patient 60.909 kg Weight Weight Stated/Reported Measurement Method PATIENT WEIGHT: Weight (lb): Weight (oz): Weight (kg): 60.909 Medications: Active Meds + DC'd Last 24 Hrs Docusate Sodium (COLACE) 100 MG DAILY PO Polyethylene Glycol (MIRALAX) 17 GM DAILY PO Acetaminophen (TYLENOL) 650 MG Q4H PRN PRN PO Hydralazine HCl (APRESOLINE) 10 MG Q6H PRN PRN IV Morphine Sulfate (morphine SULFATE) 6 MG Q4H PRN PRN IV Morphine Sulfate (morphine SULFATE) 4 MG Q4H PRN PRN IV (DC) Ondansetron HCl (ZOFRAN) 4 MG Q6H PRN PRN IV Sodium Chloride (SODIUM CHLORIDE 0.9%) 1,000 ML X1ED STA IV (DC) General appearance: alert, awake, oriented HEENT: anicteric Cardiovascular: normal heart sounds Respiratory: clear to auscultation Abdomen: non-tender Extremities: no edema Diagnosis, Assessment Plan Problem List/A P: 1. Nausea and vomiting in adult patient 2. Abdominal pain 3. Pancreatitis Free Text DxA P Notes Free Text DxA P Notes: 37 year old at 1759 RPT #:[id number] END OF REPORT [facility] 2023-07-14 07:16:00 [facility] ([facility]) Discharge Summary REPORT#:[id number] REPORT STATUS: Signed REPORT INITIALIZATION DATE:07/14/23 TIME: 715 PATIENT: TANNER BENDER UNIT #: [id number] ROOM/BED: [place] [id number] : 84 AGE: 37 SEX: M ATTEND: Henry Mares MD ADM AUTHOR: Toro Quevedo RUBBER GOODS INSPECTOR TESTER REPT SERVICE DT/TIME: 07/14/23 0716 * ALL edits or amendments must be made on the electronic/computer document * PCP PCP PCP: PCP: Robin Fernandez MD Discharge to: home General Information Date of admission: Observation Start Date: Date of admission: 07/13/23 Discharge date: 07/14/23 Discharge diagnosis: - Left Lower Abd pain. - Elevated Lipase. - HX of Asthma and pancreatitis. - Mild SG. - Lactic Acidosis. Hospital course: 37-year-old male with past medical hx of Pancreatitis and Asthma presenting to the emergency room with left-sided abdominal pain onset last week. States he originally thought it was chest pain and sought treatment which found to be noncardiac in nature. His Ct abdomen and plevis showed No acute pancreatitis. His lipase level little high. His CR was 1.0 and Lactic 2.0. He is doing better. His pain is controlled with meds. He will go home and will follow up with PCP and GI. Pt. condition on discharge: improved, stable Allergies: Allergies: Penicillins (Coded, Severe, THROAT SWELLS UP, 06/30/23) Med Rec Med Rec Discharge meds: Continue taking these medications: ALPRAZolam (XANAX) 2 MG TAB 2 MILLIGRAM ORAL THREE TIMES A DAY. as needed for ANXIETY ALBUTEROL (PROAIR DIGIHALER 90 MCG/ACT 0.65 GM) 90 MCG INHALER 2 PUFF INHALATION RT - EVERY 6 HOURS. HYDROmorphone (DILAUDID) 2 MG TAB 2 MILLIGRAM ORAL EVERY 4 HOURS NEEDED. as needed for PAIN SCALE 7-10 AMYLASE/LIPASE/PROTEA 120,000/24,000/76,000 U (CREON 24) 24-76-120K CAP.DR 24,000 UNITS ORAL THREE TIMES DAILY WITH MEALS. Objective VS/I O Last Documented: Result Date Time Pulse Ox 98 07/13 709 Pulse 57 07/13 0710 B/P 134/93 07/13 0243 B/P Mean 106.3 07/13 242 Temp 36.3 07/13 242 O2 Delivery Room air 07/12 2020 Resp 16 07/12 2020 24 hour I O ending at 0700: 07/13 0700 07/12 1900 Intake Total Output Total Balance Patient 60.909 kg Weight Weight Stated/Reported Measurement Method PATIENT WEIGHT: Weight (lb): Weight (oz): Weight (kg): 60.909 Discharge Instructions PCP )( Discharge to: Home/Self Care Discharge Instructions Additional Discharge Routines: PCP Follow-Up, Clinical Operations Manager Follow-Up )( Diet: Regular )( Activity: Resume Normal Activity, As Tolerated Follow-up Appointments PCP follow up: PCP: Robin Fernandez MD PCP follow up timeframe: In 2-3 weeks Consulting provider 1: Provider 1: Donnell Rendon MD Specialty: Gastroenterology Consult follow up timeframe: In 2-3 weeks at 0718 at 1910 RPT #:[id number] END OF REPORT [facility] 2023-07-14 06:53:00 [facility] History Physical REPORT#:[id number] REPORT STATUS: Signed REPORT INITIALIZATION DATE:07/14/23 TIME: 0653 PATIENT: TANNER BENDER UNIT #: [id number] ROOM/BED: [place] [address] : 84 AGE: 37 SEX: M ATTEND: Henry Mares MD ADM AUTHOR: Toro Quevedo NP REPT SERVICE DT/TIME: 07/14/23 0653 * ALL edits or amendments must be made on the electronic/computer document * History of Present Illness HPI Chief complaint: Abd pain on left side PCP: PCP: Robin Fernandez MD HPI: 37-year-old male with past medical hx of Pancreatitis and Asthma presenting to the emergency room with left-sided abdominal pain onset last week. States he originally thought it was chest pain and sought treatment which found to be noncardiac in nature. His Ct abdomen and plevis showed No acute pancreatitis. His lipase level little high. His CR was 1.0 and Lactic 2.0. History Past medical history: Reports: Asthma, Pancreatitis. Additional medical history: Pancreatitis Past surgical history: Denies: Abdominal surgery. Family history: Denies: CAD < 40 yrs old. Additional family history: n/c Alcohol use: Denies EtOH use Drug use: Denies recreational drugs Smoking status for patients 13 years old or older: Never Smoker Other social history: Primary family support Additional social history: family hx- unknown Medication/Allergy-Vaccine Hx Allergies: Coded Allergies: Penicillins (Severe, THROAT SWELLS UP 06/30/23) Review of Systems Constitutional: fatigue, generalized weakness. Allergy/Immun: Denies: anaphylaxis, hives, rhinorrhea. ENT: Denies: ear ringing, hearing loss, nasal congestion, sinus problem, throat pain. Respiratory: Denies: PEREZ (dyspnea on exertion), hemoptysis, non productive cough, parox nocturnal dyspnea, pleuritic pain, productive cough (sputum). Cardiovascular: Denies: chest pain, PEREZ (dyspnea on exertion), orthopnea. GI: Reports: abdominal pain. Denies: constipation, diarrhea, GERD, hematemesis, rectal pain. : Denies: flank pain, hematuria, nocturia, penile discharge, testicular pain. Musculoskeletal: Denies: extremity pain, extremity swelling, joint swelling, lumbar pain, myalgias. Neuro: Denies: bowel dysfunction, confusion, focal weakness, headache, numbness, seizure, spinning sensation. Objective General VS/I O: Vital Signs: Date Time Temp Pulse Resp B/P B/P Pulse O2 O2 Flow FiO2 Mean Ox Delivery Rate 07/133 36.3 57 134/93 106.3 96 07/12 2246 58 143/93 109.7 98 07/12 2020 36.4 52 16 141/82 101.5 95 Room air 07/12 1847 55 130/87 104 99 07/12 1835 16 07/12 1830 50 143/83 108 100 07/12 1828 54 14 158/93 112 76 07/12 1520 36.6 56 16 137/88 104 100 Room air 24 hour I O ending at 0700: 07/13 0700 07/12 1900 Intake Total Output Total Balance Patient 60.909 kg Weight Weight Stated/Reported Measurement Method PATIENT WEIGHT: Weight (lb): Weight (oz): Weight (kg): 60.909 Medications: Active Meds + DC'd Last 24 Hrs Morphine Sulfate (morphine SULFATE) 6 MG Q4H PRN PRN IV Morphine Sulfate (morphine SULFATE) 4 MG Q4H PRN PRN IV (DC) Ondansetron HCl (ZOFRAN) 4 MG Q6H PRN PRN IV Sodium Chloride (SODIUM CHLORIDE 0.9%) 1,000 ML X1ED STA IV (DC) Physical Exam General appearance: alert, awake, oriented Head/Eyes: atraumatic, normocephalic, PERRLA Cardiovascular: normal capillary refill, normal heart sounds, regular rate rhythm Respiratory: aerating well, symmetric expansion, no distress Abdomen: non-tender, normal bowel sounds, soft Genitourinary: no bladder distention, no flank pain, no urinary catheter Extremities: no calf tenderness, no clubbing, no cyanosis Musculoskeletal: no CVA tenderness, no muscle spasm Neuro/BOBBIN DISKER: alert, oriented X 3, CNII-XII intact Results Findings/Data: Laboratory Tests 07/12 07/12 07/12 1544 1544 1544 Chemistry Sodium (134 - 147 mEq/L) 138 Potassium (3.4 - 5.0 mEq/L) 3.5 Chloride (100 - 108 mEq/L) 105 Carbon Dioxide (21 - 33 mEq/l) 27 Anion Gap (0 - 20) 9 BUN (7 - 25 mg/dL) 6 L Creatinine (0.6 - 1.3 mg/dL) 1.0 Glomerular Filtr Rate (105 - 110) 98.8 L Glucose (77 - 141 mg/dL) 114 Lactic Acid (0.4 - 1.9 mmol/L) 2.0 H Calcium (8.0 - 10.5 mg/dL) 8.4 Total Bilirubin (0.0 - 1.0 mg/dL) 0.90 Direct Bilirubin (0.1 - 0.3 MG/DL) 0.40 H Indirect Bilirubin (MG/DL) 0.50 AST (8 - 34 IUnit/L) 18 ALT (10 - 49 IUnit/L) 19 Total Alk Phosphatase (20 - 125 IUnit/L) 49 Troponin I High Sens (0 - 54 ng/L) < 3 Total Protein (6.4 - 8.2 g/dL) 7.0 Albumin (3.4 - 5.0 g/dL) 4.00 Lipase (13 - 57 U/L) 327 H Laboratory Tests 07/12 1544 Hematology WBC (4.5 - 11.0 x10 3/uL) 7.3 RBC (4.00 - 5.60 x10 6/uL) 3.80 L Hgb (12.5 - 16.9 g/dL) 11.7 L Hct (37.5 - 50.7 %) 35.1 L MCV (81.0 - 99.0 fL) 92.4 MCH (27.0 - 33.0 pg) 30.8 MCHC (33.0 - 37.0 g/dL) 33.3 RDW (11.5 - 14.5 %) 13.3 Plt Count (150 - 400 x10 3/uL) 308 MPV (7.0 - 9.0 fL) 10.6 H Neut % (Auto) (56.0 - 77.0 %) 53.3 L Lymph % (Auto) (14.0 - 32.0 %) 36.2 H Randolph % (Auto) (4.8 - 9.0 %) 6.9 Eos % (Auto) (0.3 - 3.7 %) 2.3 Baso % (Auto) (0.0 - 2.0 %) 1.0 Neut # (Auto) (2.0 - 7.6 x10 3/uL) 3.91 Lymph # (Auto) (1.0 - 3.8 x10 3/uL) 2.66 Randolph # (Auto) (0.1 - 0.8 x10 3/uL) 0.51 Eos # (Auto) (0.0 - 0.2 x10 3/uL) 0.17 Baso # (Auto) (0.0 - 0.2 x10 3/uL) 0.07 Abs Immat Gran (auto) (0.00 - 0.03 x10 3/uL) 0.02 Immature Gran % (0.0 - 2.0 %) 0.3 Nucleated RBC % (0 - 0 %) 0.0 Nucleated RBCs # (Man) (0.0 - 0.1 x10 3/uL) 0.00 Laboratory Tests 07/12 1544 Urines Urine Color (YEL/STRAW) YELLOW Urine Appearance (CLEAR) CLEAR Urine pH (5.0 - 7.0) 5.0 Ur Specific Charlotte (1.005 - 1.030) 1.023 Urine Protein (NEGATIVE) NEGATIVE Urine Glucose (UA) (NEGATIVE) NEGATIVE Urine Ketones (NEGATIVE) NEGATIVE Urine Blood (NEGATIVE) NEGATIVE Urine Nitrite (NEGATIVE) NEGATIVE Urine Bilirubin (NEGATIVE) NEGATIVE Urine Urobilinogen (0.2 - 1.0 mg/dL) 0.2 Ur Leukocyte Esterase (NEGATIVE) NEGATIVE Urine RBC (0 - 3 RBC/HPF) 0-3 Urine WBC (0 - 3 WBC/HPF) 0-3 Ur Squamous Epith Cells (NONE SEEN /HPF) 0-5 Urine Bacteria (NONE SEEN /HPF) NONE SEEN Urine Mucus (NONE SEEN /LPF) TRACE Radiology data: Recent Impressions: CAT SCAN - CT ABD PELVIS W/CONT 07/12 8845 Report Impression - Status: SIGNED Entered: 07/13/2023 6756 IMPRESSION: 1. Unremarkable CT of the abdomen and pelvis. Impression By: [email or web address] - Davion Mcfarlane M.D. Results: labs reviewed, vital signs reviewed, vital signs stable, x-ray personally reviewed, current med profile rev'd Diagnosis, Assessment Plan Plan discussed with: patient, admitting physician, consultants, nurse Code Status/Resusc. Discussion Code status: full code Free Text DxA P Notes Free Text DxA P Notes: Assessment and Plan: - Left Lower Abd pain. - Elevated Lipase. - HX of Asthma and pancreatitis. - Mild SG. - Lactic Acidosis. Plan: Floor. IVF. Pain meds. Diet as tolerated. Antiemetics. Follow labs and replace as needed. Continue Home meds. Monitor. at 0658 at 5000 RPT #:[id number] END OF REPORT [facility] 2023-07-13 15:27:00 [facility] ([facility]) EMERGENCY PROVIDER REPORT REPORT#:[id number] REPORT STATUS: Signed DATE:07/13/23 TIME: 1526 PATIENT: TANNER BENDER UNIT #: [id number] ROOM/BED: [place] [id number] AGE: 37 SEX: M PCP PHYS: Robin Fernandez MD SERVICE AUTHOR: Severiano NewberryP AGACNP * ALL edits or amendments must be made on the electronic/computer document * Severiano Newberry 07/13/23 152: HPI-Abd Pain M Under 40 Free Text HPI Notes Free Text HPI Notes History obtained from patient is a 37-year-old male presenting to the emergency room with left-sided abdominal pain onset last week. States he originally thought it was chest pain and sought treatment which found to be noncardiac in nature. Presenting today for right lower quadrant pain with concern of pancreatitis General Initial Greet Date/Time 07/13/23 1515 Presentation Chief Complaint Abdominal pain Risk-Abd Pain M Under 40 )( Torsion Risk factors reviewed Review of Systems ROS Statements All systems rev neg except as marked. Past Medical History - Adult Stated Complaint HX PANCREATITIS, VOMITINGSINCE FRIDAY Allergies Coded Allergies: Penicillins (Severe, THROAT SWELLS UP 06/30/23) Home Medications Reported Medications ALPRAZolam (XANAX) 2 MG PO TID PRN ANXIETY HYDROmorphone (DILAUDID) 2 MG PO Q4H PRN PRN PAIN SCALE 7-10 AMYLASE/LIPASE/PROTEA 120,000/24,000/76,000 U (CREON 24) 24,000 UNITS PO TID MEALS ALBUTEROL (PROAIR DIGIHALER 90 MCG/ACT 0.65 GM) 2 PUFF INH RTQ6H Review of Nursing Notes Triage notes reviewed Past Medical History: Reports: Asthma, Pancreatitis. Additional Medical History Pancreatitis Past Surgical History: Denies: Abdominal surgery. Family History: Denies: CAD < 40 yrs old. Additional Family History n/c Alcohol Use Denies EtOH use Drug Use Denies recreational drugs Other Social History Primary family support Additional Social History family hx- unknown Physical Exam Vital Signs Vital Signs First Documented: Result Date Time Pulse Ox 100 07/12 1520 B/P 137/88 07/12 1520 B/P Mean 104 07/12 1520 O2 Delivery Room air 07/12 1520 Temp 36.6 07/12 1520 Pulse 56 07/12 1520 Resp 16 07/12 1520 Last Documented: Result Date Time Pulse Ox 100 07/12 1520 B/P 137/88 07/12 1520 B/P Mean 104 07/12 1520 O2 Delivery Room air 07/12 1520 Temp 36.6 07/12 1520 Pulse 56 07/12 1520 Resp 16 07/12 1520 Review of Vital Signs Reviewed Focused PE General/Const General/Const Awake, Alert, Well appearing MS Head Head Normocephalic Eyes Eyes PERRL Ears/Nose/Throat Ears/Nose/Throat Airway patent, Mucous membranes moist, Pharynx NL Resp/Chest Respiratory/Chest Breath sounds NL, Breath sounds = bilat, No respiratory distress, No rales, No rhonchi, No wheezing Cardiovascular Cardiovascular Heart rate NL, Regular rhythm, Heart sounds NL, Peripheral circulation NL Abdomen/GI Abdomen/GI Soft, No rebound, BS normoactive, No distention Tenderness/Guarding/Rebound Tender LUQ, Tender LLQ. MS Back Back Inspection NL, Non-tender, No CVA tenderness Skin Skin Color NL, Warm, Dry, Turgor NL Neurologic Neurologic Oriented X3, Speech NL, No motor deficits, No sensory deficits Interpretation Diagnostics Lab Results Interpretation Results Laboratory Tests 07/13/23 1544: [Embedded Image Not Available] Laboratory Tests: 07/12 07/12 07/12 1544 1544 1544 Chemistry Sodium (134 - 147 mEq/L) 138 Potassium (3.4 - 5.0 mEq/L) 3.5 Chloride (100 - 108 mEq/L) 105 Carbon Dioxide (21 - 33 mEq/l) 27 Anion Gap (0 - 20) 9 BUN (7 - 25 mg/dL) 6 L Creatinine (0.6 - 1.3 mg/dL) 1.0 Glomerular Filtr Rate (105 - 110) 98.8 L Glucose (77 - 141 mg/dL) 114 Lactic Acid (0.4 - 1.9 mmol/L) 2.0 H Calcium (8.0 - 10.5 mg/dL) 8.4 Total Bilirubin (0.0 - 1.0 mg/dL) 0.90 Direct Bilirubin (0.1 - 0.3 MG/DL) 0.40 H Indirect Bilirubin (MG/DL) 0.50 AST (8 - 34 IUnit/L) 18 ALT (10 - 49 IUnit/L) 19 Total Alk Phosphatase (20 - 125 IUnit/L) 49 Troponin I High Sens (0 - 54 ng/L) < 3 Total Protein (6.4 - 8.2 g/dL) 7.0 Albumin (3.4 - 5.0 g/dL) 4.00 Lipase (13 - 57 U/L) 327 H Hematology WBC (4.5 - 11.0 x10 3/uL) 7.3 RBC (4.00 - 5.60 x10 6/uL) 3.80 L Hgb (12.5 - 16.9 g/dL) 11.7 L Hct (37.5 - 50.7 %) 35.1 L MCV (81.0 - 99.0 fL) 92.4 MCH (27.0 - 33.0 pg) 30.8 MCHC (33.0 - 37.0 g/dL) 33.3 RDW (11.5 - 14.5 %) 13.3 Plt Count (150 - 400 x10 3/uL) 308 MPV (7.0 - 9.0 fL) 10.6 H Neut % (Auto) (56.0 - 77.0 %) 53.3 L Lymph % (Auto) (14.0 - 32.0 %) 36.2 H Randolph % (Auto) (4.8 - 9.0 %) 6.9 Eos % (Auto) (0.3 - 3.7 %) 2.3 Baso % (Auto) (0.0 - 2.0 %) 1.0 Neut # (Auto) (2.0 - 7.6 x10 3/uL) 3.91 Lymph # (Auto) (1.0 - 3.8 x10 3/uL) 2.66 Randolph # (Auto) (0.1 - 0.8 x10 3/uL) 0.51 Eos # (Auto) (0.0 - 0.2 x10 3/uL) 0.17 Baso # (Auto) (0.0 - 0.2 x10 3/uL) 0.07 Abs Immat Gran (auto) (0.00 - 0.03 x10 3/uL) 0.02 Immature Gran % (0.0 - 2.0 %) 0.3 Nucleated RBC % (0 - 0 %) 0.0 Nucleated RBCs # (Man) (0.0 - 0.1 x10 3/uL) 0.00 Urines Urine Color (YEL/STRAW) YELLOW Urine Appearance (CLEAR) CLEAR Urine pH (5.0 - 7.0) 5.0 Ur Specific Charlotte (1.005 - 1.030) 1.023 Urine Protein (NEGATIVE) NEGATIVE Urine Glucose (UA) (NEGATIVE) NEGATIVE Urine Ketones (NEGATIVE) NEGATIVE Urine Blood (NEGATIVE) NEGATIVE Urine Nitrite (NEGATIVE) NEGATIVE Urine Bilirubin (NEGATIVE) NEGATIVE Urine Urobilinogen (0.2 - 1.0 mg/dL) 0.2 Ur Leukocyte Esterase (NEGATIVE) NEGATIVE Urine RBC (0 - 3 RBC/HPF) 0-3 Urine WBC (0 - 3 WBC/HPF) 0-3 Ur Squamous Epith Cells (NONE SEEN /HPF) 0-5 Urine Bacteria (NONE SEEN /HPF) NONE SEEN Urine Mucus (NONE SEEN /LPF) TRACE Recent Impressions: CAT SCAN - CT ABD PELVIS W/CONT 07/12 1655 Report Impression - Status: SIGNED Entered: 07/13/2023 8432 IMPRESSION: 1. Unremarkable CT of the abdomen and pelvis. Impression By: [email or web address] - Davion Mcfarlane M.D. ECG #1 Interpretation Text/Dict Note EKG independently reviewed and interpreted by ED physician and myself. Date: 07/13/2023 Time: 1706 Rhythm: Sinus bradycardia with early repolarization Ventricular Rate: 52 BPM OK: 138 ms QRS: 96 ms QTC: 370 ms [place]: Normal ST elevation: Noted in V4 and V5 ST depression: None T wave inversion(s): None Motion artifact, no STEMI Re-Evaluation MDM Free Text MDM Notes Free Text MDM Notes 37-year-old male with left lower quadrant pain -VS unremarkable -Overall sick appearing. No abnormal cardiopulmonary findings. Moderate abdominal ttp. No guarding. Surgical process seems possible given the exam and presentation. History and exam doesn t suggest AAA so no indication for CTA. No evidence of infection at this point so holding ABX for now. Could be a benign cause of pain although dangerous pathology needs to be ruled out first -CT abd/pelv w/contrast -Abdominal pain labs, analgesics Case discussed with attending who reviewed cath report. Additional Text -VS unremarkable -Overall sick appearing. Moderate abdominal ttp. No guarding. Surgical process seems possible given the exam and presentation. History and exam doesn t suggest AAA so no indication for CTA. No evidence of infection at this point so holding ABX for now. Could be a benign cause of pain although dangerous pathology needs to be ruled out first -CT abd/pelv w/contrast -Abdominal pain labs, analgesics )( Re-Evaluation/Progress #1 Text/Dict Note Called to the front nurses station by charge nurse who noted elevated ST segments on ER monitor patient. Obtained EKG for verification shows early repull. Of note patient had a clean heart cath on 06/30/2023 as well as prior evaluation for chest pain at outside hospital determined okay to go home after conversation with patient's winding department supervisor at that time. Time of Re-Eval 1724 )( Re-Eval Status Unchanged Re-Evaluation/Progress #2 Text/Dict Note Patient remains with abdominal pain and nausea, known to have chronic pancreatitis current lipase in 700s will admit for pain control. Time of Eval 1730 Re-Eval Status Unchanged ED Course Medication(s) Ordered Medication(s) Ordered: Central Nervous System Agents Sig/José Miguel Start time Last Medication Dose Route Stop Time Status Admin Morphine Sulfate 4 MG Q4H PRN PRN 07/12 1745 DC 07/12 IV 07/13 1635 2248 Electrolytic, Caloric, And Sneha Sig/José Miguel Start time Last Medication Dose Route Stop Time Status Admin Sodium Chloride 1,000 ML X1ED STA 07/12 1535 DC 07/12 IV 07/12 1634 1540 Gastrointestinal Drugs Sig/José Miguel Start time Last Medication Dose Route Stop Time Status Admin Ondansetron HCl 4 MG Q6H PRN PRN 07/12 1745 AC 07/12 IV 07/15 1415 1841 Patient Discharge Departure Vital Signs/Condition Vital Signs First Documented: Result Date Time Pulse Ox 100 07/12 1520 B/P 137/88 07/12 1520 B/P Mean 104 07/12 1520 O2 Delivery Room air 07/12 1520 Temp 36.6 07/12 1520 Pulse 56 07/12 1520 Resp 16 07/12 1520 Last Documented: Result Date Time Pulse Ox 100 07/12 1520 B/P 137/88 07/12 1520 B/P Mean 104 07/12 1520 O2 Delivery Room air 07/12 1520 Temp 36.6 07/12 1520 Pulse 56 07/12 1520 Resp 16 07/12 1520 All vital signs available at the time of this entry have been reviewed. Condition Stable Clinical Impression Clinical Impression Primary Impression: Pancreatitis Disposition Decision Hospitalize Hosp Physician Name Toro Quevedo RUBBER GOODS INSPECTOR TESTER Hosp Physician Hospitalist )( Accepts Hospitalization Yes )( Reason for Hospitalization acute on Chr. pancreatitis )( Accepted Time 173 )( Accepted Date 07/13/23 Discharge/Care Plan Counseled Regarding Diagnosis, Lab results, Imaging studies, Need for admission Admit Note I have spoken with the patient and/or caregivers. I have explained the patient's condition, diagnoses and treatment plan based on the information available to me at this time. I have answered the patient's and/or caregiver's questions and addressed any concerns. The patient and/or caregivers have as good an understanding of the patient's diagnosis, condition and treatment plan as can be expected at this point. The patient has been stabilized within the capability of the emergency department. The patient will be transported for further care and management or will be moved to an observation or inpatient service. I have communicated with the staff or medical practitioner taking over this patient's care. Fei Diaz 07/29/23 1026: Patient Discharge Departure Supervising Physician Note MidLv Saw Pt Alone I have reviewed the PA/RUBBER GOODS INSPECTOR TESTER's note and plan of care. I was available for consultation as needed at all times during the patient's visit in the emergency department. I agree with the clinical impression, plan and disposition. at 0804 at 1026 RPT #:[id number] END OF REPORT [facility] 2023-07-08 15:24:00 [facility] ([facility]) EMERGENCY PROVIDER REPORT REPORT#:[id number] REPORT STATUS: Signed DATE:07/08/23 TIME: 1524 PATIENT: TANNER BENDER UNIT #: [id number] ROOM/BED: AGE: 37 SEX: M PCP PHYS: Robin Fernandez MD SERVICE AUTHOR: Gt Smallwood MD * ALL edits or amendments must be made on the electronic/computer document * HPI-General Illness Free Text HPI Notes Free Text HPI Notes Case of a 37-year-old male with reported past medical history of chronic pancreatitis, asthma, chronic chest pain whose brought to the ER by EMS with complaint of chest pain. Patient reports today's episode started in the morning when he was in a meeting at work. Described as sharp, localized to the left side of the chest, nonradiating. Cannot recall inciting event, does not identify improving or worsening factors. Associated mild shortness of breath. Similar two multiple previous episodes in the past. Denies other symptoms like diaphoresis, vomiting, dizziness, skin color changes, passing out. Patient has undergone multiple evaluations including cardiac catheterization's (three months ago and again on June 29 both reported without coronary obstruction). General Confirmed Patient Yes Initial Greet Date/Time 07/08/23 1428 Presentation Chief Complaint Chest pain Hx Obtained From Patient, EMS Review of Systems ROS Statements All systems rev neg except as marked. Free Text ROS Notes Free Text ROS Notes Constitutional Denies: Chills, Fatigue, Fever, Malaise, Weakness - generalized. Eyes Denies: Blurred bilat, Discharge L, Redness bilat, Swelling bilat. Ears/Nose/Throat Denies: Earache bilat, Hearing loss bilat, Mouth pain, Nasal congestion, Nose bleeding, Sinus problem, Sore throat. Respiratory Denies: Cough, non-productive, Dyspnea on exertion, Pleuritic pain, Shortness of breath. Cardiovascular Denies: Edema, Orthopnea, Palpitations, Syncope. GI Denies: Abdominal pain, Diarrhea, Nausea, Vomiting. Male Denies: Dysuria, Flank pain, Penile discharge, Scrotal swelling, Testicular pain, Urinary frequency, Urinary urgency, Urination decreased, Urination increased. Musculoskeletal Denies: Back pain, Extremity pain, Extremity swelling, Joint pain, Joint swelling. Hematologic Denies: Adenopathy. Skin Denies: Diaphoresis, Erythema, Itching, Jaundice, Rash, Swelling. Neurologic Denies: Change LOC, Confusion, Dizziness, Focal weakness, Headache, Problem walking, Slurred speech, Syncope. Past Medical History - Adult Stated Complaint CHEST PAIN 3 DAYS AGO WHEN HE WAS DRIVING Allergies Coded Allergies: Penicillins (Severe, THROAT SWELLS UP 06/30/23) Home Medications Reported Medications ALPRAZolam (XANAX) 2 MG PO TID PRN ANXIETY HYDROmorphone (DILAUDID) 2 MG PO Q4H PRN PRN PAIN SCALE 7-10 AMYLASE/LIPASE/PROTEA 120,000/24,000/76,000 U (CREON 24) 24,000 UNITS PO TID MEALS ALBUTEROL (PROAIR DIGIHALER 90 MCG/ACT 0.65 GM) 2 PUFF INH RTQ6H Past Medical History: Reports: Asthma, Pancreatitis. Additional Medical History Pancreatitis Past Surgical History: Denies: Abdominal surgery. Family History: Denies: CAD < 40 yrs old. Additional Family History n/c Alcohol Use Denies EtOH use Drug Use Denies recreational drugs Smoking status for patients 13 years old or older: Unknown,if ever smoked Other Social History Primary family support Additional Social History family hx- unknown Physical Exam Vital Signs Vital Signs First Documented: Result Date Time Pulse Ox 98 07/07 1424 B/P 137/78 07/07 1424 B/P Mean 97 07/07 1424 O2 Delivery Room air 07/07 142 Temp 36.8 07/07 1424 Pulse 60 07/07 1424 Resp 20 07/07 1424 Last Documented: Result Date Time Pulse Ox 96 07/07 1745 B/P 120/64 07/07 1745 B/P Mean 82 07/07 1745 O2 Delivery Room air 07/07 174 Pulse 69 07/07 1745 Resp 16 07/07 174 Temp 36.8 07/07 1424 Review of Vital Signs Reviewed Free Text PE Notes Free Text PE Notes General/Const Awake, Alert, No acute distress, Well appearing, Cooperative, Not toxic appearing MS Head Normocephalic Eyes PERRL, EOMI Ears/Nose/Throat Airway patent, Mucous membranes moist, Pharynx NL MS Neck Supple, No meningismus, Full range of motion, No adenopathy Resp/Chest Breath sounds NL, Breath sounds = bilat, No respiratory distress Cardiovascular Heart rate NL, Regular rhythm, Heart sounds NL, Cap refill not delayed, Peripheral circulation NL Abdomen/GI Soft, Non-tender, BS normoactive, No distention MS Back Inspection NL Lymphatic No gross adenopathy MS Upper Extrem Inspection NL, Full range of motion, No swelling MS Lower Extrem Inspection NL, Full range of motion, No swelling Skin NL, No rash, Warm, Dry Neurologic Oriented X3, Speech NL, No motor deficits, No sensory deficits Psychiatric Affect NL, Mood NL Interpretation Diagnostics Lab Results Interpretation Results Laboratory Tests 07/08/23 1500: [Embedded Image Not Available] Laboratory Tests: 07/07 1500 Chemistry Sodium (136 - 145 mmol/L) 139 Potassium (3.5 - 5.1 mmol/L) 3.9 Chloride (98 - 107 mmol/L) 106.0 Carbon Dioxide (21 - 32 mmol/L) 29.0 Anion Gap (10 - 20 mmol/L) 7.9 L BUN (7 - 18 mg/dL) 6 L Creatinine (0.7 - 1.3 mg/dL) 1.00 Glomerular Filtr Rate (>=60 mL/min) > 60 BUN/Creatinine Ratio (10 - 20) 5.8 L Glucose (74 - 106 mg/dL) 77 Calcium (8.5 - 10.1 mg/dL) 8.2 L Troponin I (0 - 54 pg/mL) <4.0 Hematology WBC (4.5 - 12.5 K/mm3) 7.2 RBC (4.0 - 5.8 mill/mm3) 3.99 L Hgb (13.0 - 17.5 gram/dL) 12.0 L Hct (42.0 - 52.0 %) 36.6 L MCV (80 - 98 fL) 91.7 MCH (27.0 - 33.0 picogram) 30.1 MCHC (33.0 - 36.0 gram/dL) 32.8 L RDW (11.6 - 16.2 %) 13.1 Plt Count (150 - 450 K/mm3) 312 MPV (6.7 - 11.0 fL) 10.6 Recent Impressions: RADIOLOGY - XR CHEST 1 V 07/07 6969 Report Impression - Status: SIGNED Entered: 07/08/2023 6888 IMPRESSION: No acute cardiopulmonary process. Location: [facility] Impression By: [email or web address] - Jackson Perez MD ECG #1 Interpretation Text/Dict Note Normal sinus rhythm at 66 bpm, no axis deviation, There is upsloping ST elevation in V3, V4, V5, normal segments. Normal segments. Date 07/08/23 Time 1449 Re-Evaluation MDM Free Text MDM Notes Free Text MDM Notes EKG shows ST elevations that are unchanged from multiple EKGs in the past including one from July 02 and July 05. EKGs and patient's history was discussed with Dr. Nazanin Cole (crew caller winding department supervisor). Agrees distal does not meet systemic criteria, suggestive of exacerbation of patient's chronic pain. Re-Evaluation/Progress #1 Text/Dict Note Pending laboratory analysis and imaging. Patient stable. Time of Re-Eval 1524 Re-Eval Status Improved Re-Evaluation/Progress #2 Text/Dict Note Patient stable. Labs show normal hemoglobin and white blood cell count, normal renal function without major electrolyte derangements. Troponin within normal limits. Pending x-ray. Time of Eval 170 Re-Eval Status Improved Re-Evaluation/Progress #3 Text/Dict Note Patient stable, no distress, not toxic. X-ray reported without acute findings. Case was discussed with Dr. Matute (he performed patient's cardiac catheterization on June 29). He describes that there are no signs of coronary obstruction and patient is very difficult, demands pain medications and leaves against medical advice. Case also discussed with patient's new winding department supervisor Dr Moya. He agrees that it does not seem to be and acute coronary event and he will follow patient and his office. Patient has been explained about cardiologists recommendations. Patient has been explained about differential diagnosis, lab analysis, imaging, course of disease, possible complications, and treatment options in its entirety. Pt has been oriented in detail about signs and symptomst that would prompt immediate return to ER and instructed to follow up with primary care physician and winding department supervisor. Time of Eval 1731 Re-Eval Status Improved Patient Discharge Departure Vital Signs/Condition Vital Signs First Documented: Result Date Time Pulse Ox 98 07/07 1424 B/P 137/78 07/07 1424 B/P Mean 97 07/07 1424 O2 Delivery Room air 07/08 1423 Temp 36.8 07/07 142 Pulse 60 07/07 1424 Resp 20 07/08 1423 Last Documented: Result Date Time Pulse Ox 96 07/07 1744 B/P 120/64 07/07 1744 B/P Mean 82 07/07 174 O2 Delivery Room air 07/07 1744 Pulse 69 07/07 174 Resp 16 07/07 1744 Temp 36.8 07/07 1424 All vital signs available at the time of this entry have been reviewed. Condition Stable, Improved Clinical Impression Clinical Impression Primary Impression: Chronic chest pain Disposition Decision Discharge )( Discharged to Home Yes )( Time 173 )( Date 07/08/23 Discharge/Care Plan Counseled Regarding Diagnosis, Lab results, Imaging studies, Need for follow-up, When to return to ED Patient Instructions ED Chest Pain, Uncertain Cause Referrals Provider Referral: Rashel Moya MD Follow-Up: Call for appointment Notes: [facility] Address: [address] [place] [address]. [address] [place] [address] Departure Forms WORK/SCHOOL EXCUSE VARIABLE Any Restrictions Off work/school 2 days Discharge Note I have spoken with the patient and/or caregivers. I have explained the patient's condition, diagnoses and treatment plan based on the information available to me at this time. I have answered the patient's and/or caregiver's questions and addressed any concerns. The patient and/or caregivers have as good an understanding of the patient's diagnosis, condition and treatment plan as can be expected at this point. The vital signs have been stable. The patient's condition is stable and appropriate for discharge from the emergency department. The patient will pursue further outpatient evaluation with the primary care physician or other designated or consulting physician as outlined in the discharge instructions. The patient and/or caregivers are agreeable to this plan of care and follow-up instructions have been explained in detail. The patient and/or caregivers have received these instructions in written format and have expressed an understanding of the discharge instructions. The patient and/or caregivers are aware that any significant change in condition or worsening of symptoms should prompt an immediate return to this or the closest emergency department or a call to 911. at 1533 RPT #:[id number] END OF REPORT [facility] 2023-07-08 14:49:00 [id number] [facility] PATIENT NAME: TANNER BENDER ADMIT DATE: 07/08/23 ACCOUNT NO: [id number] ROOM NO: AGE: 37 REPORT TYPE: eEKG REPORT SEX: M DATE OF : [birth year] ADMITTING PHYSICIAN: ATTENDING PHYSICIAN: Order: [id number] Test Reason : Test Date/Time Stamp: FriJul 08 2023 14:49:03 Blood Pressure : / mmHG Vent. Rate : 066 BPM Atrial Rate : 066 BPM P-R Int : 110 ms QRS Dur : 092 ms QT Int : 376 ms P-R-T Axes : 069 083 067 degrees QTc Int : 394 ms Sinus rhythm with sinus arrhythmia with short OK Possible Left atrial enlargement Early repolarization Cannot exclude acute anterior wall TN Confirmed by MD ADLER DAVID ([id number]) on 07/09/2023 2:12:08 PM Referred By: Self Referred Confirmed by:EDU ADLER MD at 1412 PATIENT NAME: TANNER BENDER [facility] 2023-07-06 21:24:00 [facility] ([facility]) EMERGENCY PROVIDER REPORT REPORT#:[id number] REPORT STATUS: Signed DATE:07/06/23 TIME: 2123 PATIENT: TANNER BENDER UNIT #: [id number] ROOM/BED: AGE: 37 SEX: M PCP PHYS: Robin Fernandez MD SERVICE AUTHOR: Musa Langford MD * ALL edits or amendments must be made on the electronic/computer document * HPI-Chest Pain 40 and Over Free Text HPI Notes Free Text HPI Notes 37-year-old male history of pancreatitis, chronic chest pain, possible pericarditis, recent negative heart catheterization several days ago, presenting to the emergency department for chest pain patient reporting substernal chest pain, sharp radiating to the back, similar to prior episodes of chest pain. Patient denies fevers, denies nausea vomit abdominal pain patient. unable to make his cardiology follow-up appointment until next month. General Confirmed Patient Yes Patient Type New patient Initial Greet Date/Time 07/06/232114 Presentation Chief Complaint Chest pain Hx Obtained From Patient, Prior medical records Sudden in Onset? No Onset Occurred Chronic Symptom Duration Chronic Progression since Onset Intermittent, Waxes and wanes Pain/Sev: Onset Mild Pain/Sev: Current Moderate Risk-Chest Pain 40 and Over Risk Stratification )( Coronary Artery Disease Risk factors reviewed )( Thoracic Aortic Dissection Risk factors reviewed )( Pulmonary Embolism Risk factors reviewed )( HEART for MACE )( HEART for MACE Response Value History Low index of suspicion 0 ECG Interpretation Nonspec repol disturb 1 Age Age under 45 0 Risk Factors for CAD 1-2 CAD risk factors 1 Troponin < or = to NL troponin 0 Total 2 HEART Score for MACE 0-3 (low risk 0.9%-1.7%) Review of Systems ROS Statements All systems rev neg except as marked. Free Text ROS Notes Free Text ROS Notes Review of systems was performed, pertinent positives and negatives noted in HPI. Past Medical History - Adult Stated Complaint CHEST PAIN RADIATES TO BACK X 1 WK Allergies Coded Allergies: Penicillins (Severe, THROAT SWELLS UP 06/30/23) Home Medications Reported Medications ALPRAZolam (XANAX) 2 MG PO TID PRN ANXIETY HYDROmorphone (DILAUDID) 2 MG PO Q4H PRN PRN PAIN SCALE 7-10 AMYLASE/LIPASE/PROTEA 120,000/24,000/76,000 U (CREON 24) 24,000 UNITS PO TID MEALS ALBUTEROL (PROAIR DIGIHALER 90 MCG/ACT 0.65 GM) 2 PUFF INH RTQ6H Review of Nursing Notes Rapid assess notes rev Past Medical History: Reports: Asthma, Pancreatitis. Additional Medical History Pancreatitis Past Surgical History: Denies: Abdominal surgery. Family History: Denies: CAD < 40 yrs old. Additional Family History n/c Alcohol Use Denies EtOH use Drug Use Denies recreational drugs Other Social History Primary family support Additional Social History family hx- unknown Physical Exam Vital Signs Vital Signs First Documented: Result Date Time Pulse Ox 99 07/05 2114 B/P 164/99 07/05 2114 B/P Mean 120 07/05 2114 O2 Delivery Room air 07/05 2114 Temp 37.0 07/05 2114 Pulse 56 07/05 2114 Resp 16 07/05 2114 Last Documented: Result Date Time Pulse Ox 100 07/05 2300 B/P 158/88 07/05 2300 B/P Mean 111 07/05 2299 Pulse 62 07/05 2300 Resp 16 07/05 2300 O2 Delivery Room air 07/05 2114 Temp 37.0 07/05 2114 Review of Vital Signs Reviewed Free Text PE Notes Free Text PE Notes GEN/CONST: awake, alert, mild distress from pain MS HEAD: normocephalic EYES: EOMI, no scleral icterus EARS/NOSE/THROAT: airway patent, mucous membranes moist MS NECK: supple, full range of motion RESPIRATORY/CHEST: equal diaphragmatic excursion with normal breath sounds, no respiratory distress CARDIOVASCULAR: normal rate and regular rhythm ABDOMEN/GI: no distension, soft and nontender MS BACK: painless range of motion, non-tender MS UPPER EXT: inspection unremarkable, no deformity MS LOWER EXT: inspection unremarkable, no deformity SKIN: warm, dry, intact NEURO: normal speech, no motor deficits Interpretation Diagnostics Lab Results Interpretation Considerations Independ review imaging, Reviewed prior records Results Laboratory Tests 07/06/232155: [Embedded Image Not Available] Laboratory Tests: 07/06 2155 Chemistry Sodium (134 - 147 mEq/L) 137 Potassium (3.4 - 5.0 mEq/L) 3.5 Chloride (100 - 108 mEq/L) 104 Carbon Dioxide (21 - 33 mEq/l) 28 Anion Gap (0 - 20) 9 BUN (7 - 25 mg/dL) 9 Creatinine (0.6 - 1.3 mg/dL) 1.1 Glomerular Filtr Rate (105 - 110) 88.1 L Glucose (77 - 141 mg/dL) 112 Calcium (8.0 - 10.5 mg/dL) 8.3 Magnesium (1.6 - 2.6 mg/dL) 1.98 Total Bilirubin (0.0 - 1.0 mg/dL) 1.10 H Direct Bilirubin (0.1 - 0.3 MG/DL) 0.40 H Indirect Bilirubin (MG/DL) 0.70 AST (8 - 34 IUnit/L) 20 ALT (10 - 49 IUnit/L) 24 Total Alk Phosphatase (20 - 125 IUnit/L) 51 Troponin I High Sens (0 - 54 ng/L) < 3 Total Protein (6.4 - 8.2 g/dL) 6.8 Albumin (3.4 - 5.0 g/dL) 3.80 Lipase (13 - 57 U/L) 64 H Coagulation INR (0.8 - 1.2) 1.1 PTT (Velma) (25.0 - 39.5 Seconds) 33.1 PT Patient/Control Mix (9.3 - 12.9 SECONDS) 11.7 Hematology WBC (4.5 - 11.0 x10 3/uL) 6.9 RBC (4.00 - 5.60 x10 6/uL) 3.72 L Hgb (12.5 - 16.9 g/dL) 11.4 L Hct (37.5 - 50.7 %) 33.9 L MCV (81.0 - 99.0 fL) 91.1 MCH (27.0 - 33.0 pg) 30.6 MCHC (33.0 - 37.0 g/dL) 33.6 RDW (11.5 - 14.5 %) 13.1 Plt Count (150 - 400 x10 3/uL) 282 MPV (7.0 - 9.0 fL) 10.6 H Neut % (Auto) (56.0 - 77.0 %) 46.7 L Lymph % (Auto) (14.0 - 32.0 %) 38.3 H Randolph % (Auto) (4.8 - 9.0 %) 8.3 Eos % (Auto) (0.3 - 3.7 %) 5.4 H Baso % (Auto) (0.0 - 2.0 %) 1.2 Neut # (Auto) (2.0 - 7.6 x10 3/uL) 3.23 Lymph # (Auto) (1.0 - 3.8 x10 3/uL) 2.64 Randolph # (Auto) (0.1 - 0.8 x10 3/uL) 0.57 Eos # (Auto) (0.0 - 0.2 x10 3/uL) 0.37 H Baso # (Auto) (0.0 - 0.2 x10 3/uL) 0.08 Abs Immat Gran (auto) (0.00 - 0.03 x10 3/uL) 0.01 Immature Gran % (0.0 - 2.0 %) 0.1 Nucleated RBC % (0 - 0 %) 0.0 Nucleated RBCs # (Man) (0.0 - 0.1 x10 3/uL) 0.00 Recent Impressions: RADIOLOGY - XR CHEST 1 V 07/05 5458 Report Impression - Status: SIGNED Entered: 07/06/20232147 IMPRESSION: No radiographic evidence of acute cardiopulmonary process. Impression By: [email or web address] - Marbin Fish M.D. Lab Imaging Statement Laboratory radiographic studies reviewed and considered in the medical decision-making. Point of Care Testing Pulse Oximetry Pulse Ox % 100 On: Room air Interpretation Interpreted by me, Pulse oximetry normal Time 2300 ECG #1 Interpretation Text/Dict Note ECG was ordered and Interpreted by myself, ED physician at July 06, 2023, 2144 -ECG reveals sinus bradycardia, 55 bpm -QRS and QTc not significantly prolonged -Diffuse ST segment elevations, without ST segment depressions, consistent pericarditis, stable EKG compared to prior EKGs CPT Code 38851 Re-Evaluation MDM Free Text MDM Notes Free Text MDM Notes -I reviewed medical records and imaging studies if available in EMR; Hx obtained from patient as able -PMH most significant for elements in HPI above Patient with chest pain, presenting suggestive of atypical pancreatitis, versus pericarditis, less likely ACS. Will order screening labs. Given overall patient presentation and risk factors, EKG and troponin ordered to assess for ACS, dysrhythmia, right heart strain, and electrolyte changes, and risk stratification. CXR ordered to assess for fluid/congestion, effusions, consolidation, PTX, perforation, and aortic disease among other pathologies. Screening labs, including hematology and electrolytes, ordered to assess for risk of severe/invasive infection, anemia, electrolyte derangements, and renal function. Re-Evaluation/Progress #1 Text/Dict Note -Patient care is requiring additional/significant diagnostic testing and treatment due to high risk of morbidity, mortality, complications related to comorbidities, acute illness -All ordered tests were independently reviewed and interpreted by me. Notably showing: Overall unremarkable, troponin negative, EKG showing possible pericarditis. Patient will leave AGAINST MEDICAL ADVICE given not receiving IV pain meds. He is clinically improved compared to arrival. The patient wants to leave against medical advice,. Patient is alert and oriented x4 and able to make decisions for self. Risk of leaving against medical advice were given to patient. Possible , loss of current lifestyle, permanent disability, among other risks were discussed with patient and the patient understands. Time of Re-Eval 1 Re-Eval Status Improved Tissue Perfusion Reassessment Patient tissue perfusion reassessment completed. ED Course Medication(s) Ordered Medication(s) Ordered: Central Nervous System Agents Sig/José Miguel Start time Last Medication Dose Route Stop Time Status Admin Oxycodone/ 1 TAB X1ED STA 07/05 2200 DC 07/05 Acetaminophen PO 07/05 Aspirin 324 MG X1ED STA 07/05 2130 CAN PO 07/06 2131 Ketorolac 15 MG X1ED STA 07/05 2130 DC 07/05 Tromethamine IV 07/05 Patient Discharge Departure Vital Signs/Condition Vital Signs First Documented: Result Date Time Pulse Ox 99 07/05 2114 B/P 164/99 07/05 2114 B/P Mean 120 07/05 2114 O2 Delivery Room air 07/05 2114 Temp 37.0 07/05 2114 Pulse 56 07/05 2114 Resp 16 07/05 2114 Last Documented: Result Date Time Pulse Ox 100 07/05 2299 B/P 158/88 07/05 2299 B/P Mean 111 07/05 230 Pulse 62 07/05 2299 Resp 16 07/05 2299 O2 Delivery Room air 07/05 2114 Temp 37.0 07/05 2114 All vital signs available at the time of this entry have been reviewed. Condition Stable, Improved Clinical Impression Clinical Impression Primary Impression: Left against medical advice Secondary Impressions: Chest pain Disposition Decision Other )( Time 2257 )( Date 07/06/23 Against Medical Advice Yes Discharge/Care Plan Counseled Regarding Diagnosis, Lab results, Imaging studies, Need for follow-up, When to return to ED Against Medical Advice AMA Note 1 [Tanner Bender] has decided to leave our facility against medical advice. I have assessed the patient's ability to make an informed decision and it is my opinion at this time that the patient has the medical decision-making capacity to comprehend information regarding current medical condition and appreciates the impact of the disease or condition and the consequences of various options for treatment, including foregoing treatment. The patient possesses the ability to evaluate all treatment options, compare the risks and benefits of each option, communicate choice in a consistent manner over time, and is able to make rational choices. I have explained to the patient further testing, treatment, and evaluation I would like to perform during the current emergency department visit as well as any possible alternatives that could be accomplished in a timely manner. I have outlined the possible risks of foregoing any or all of these interventions and the patient understands and acknowledges that the decision to leave may result in undesirable consequences such as , permanent disability, and/or loss of current lifestyle. Even though leaving AMA is not ideal, I have instructed the patient to follow any discharge instructions given, take any medications prescribed, and resume care as soon as possible with another provider. Additionally, we clearly stated that the patient is welcome to return at any time to continue care at our facility. Quality Measures BP F/U for HTN Referred for BP f/u < 4wk, F/u with PCP/other doc 12-Lead ECG for CP Performed documented at 1616 RPT #:[id number] END OF REPORT [facility] 2023-07-03 20:56:00 [id number] [facility] PATIENT NAME: TANNER BENDER ADMIT DATE: 07/03/23 ACCOUNT NO: [id number] ROOM NO: AGE: 37 REPORT TYPE: eEKG REPORT SEX: M DATE OF : 83 ADMITTING PHYSICIAN: ATTENDING PHYSICIAN: Order: [id number] Test Reason : Test Date/Time Stamp: FriJul 03 2023 20:56:18 Blood Pressure : / mmHG Vent. Rate : 063 BPM Atrial Rate : 070 BPM P-R Int : 124 ms QRS Dur : 094 ms QT Int : 382 ms P-R-T Axes : 081 085 053 degrees QTc Int : 390 ms Normal sinus rhythm with sinus arrhythmia Voltage criteria for left ventricular hypertrophy ST elevation, consider anterolateral injury or acute infarct ACUTE TN / STEMI Abnormal ECG When compared with ECG of 14-JUN-2023 05:37, Questionable change in QRS axis ST elevation now present in Anterior leads QT has shortened Confirmed by Estrellita Dupree ([id number]) on 07/04/2023 6:53:00 AM Referred By: Robin Fernandez Confirmed by:Estrellita Dupree at 0653 PATIENT NAME: TANNER BENDER [facility] 2023-07-03 20:54:00 [facility] ([facility]) EMERGENCY PROVIDER REPORT REPORT#:[id number] REPORT STATUS: Signed DATE:07/03/23 TIME: 2053 PATIENT: TANNER BENDER UNIT #: [id number] ROOM/BED: AGE: 37 SEX: M PCP PHYS: Robin Fernandez MD SERVICE AUTHOR: Madi Clark MD * ALL edits or amendments must be made on the electronic/computer document * HPI-Chest Pain Under 40 General Initial Greet Date/Time 07/03/232052 Presentation Chief Complaint Chest pain Hx Obtained From Patient Sudden in Onset? Yes Onset Occurred Today Location Substernal Radiation Back. )( Migration/Movement None Free Text HPI Notes Free Text HPI Notes Patient tolerated well with a history of chronic pancreatitis presenting with a chief complaint of substernal chest pain. He reports radiates to his back. States it started while he was starting up from work. He states it has been constant for the last 3 hours. He denies any nausea or vomiting but does report shortness of breath. He denies any exercise/calf pain. Risk-Chest Pain Under 40 Risk Stratification )( Coronary Artery Disease Risk factors reviewed )( Pulmonary Embolism Risk factors reviewed )( AMI-Aspirin Aspirin Last 24 Hrs By EMS )( HEART for MACE )( HEART for MACE Response Value History Low index of suspicion 0 ECG Interpretation Normal ECG 0 Age Age under 45 0 Risk Factors for CAD 1-2 CAD risk factors 1 Troponin < or = to NL troponin 0 Total 1 Review of Systems ROS Statements All systems rev neg except as marked. Focused Review of Systems Constitutional Denies: Chills, Fever, Lethargy. Respiratory Denies: Cough, non-productive, Cough, productive, Shortness of breath. GI Denies: Abdominal pain, Diarrhea, Nausea, Vomiting. Musculoskeletal Denies: Back pain, Extremity pain. Skin Denies: Diaphoresis, Rash. Neurologic Denies: Change LOC, Dizziness, Focal weakness, Headache, Numbness, Slurred speech. Psychiatric Denies: Anxiety, Depression. Past Medical History - Adult Stated Complaint CHEST PAIN, ST ELEVATION Allergies Coded Allergies: Penicillins (Severe, THROAT SWELLS UP 06/30/23) Home Medications Reported Medications ALPRAZolam (XANAX) 2 MG PO TID PRN ANXIETY HYDROmorphone (DILAUDID) 2 MG PO Q4H PRN PRN PAIN SCALE 7-10 AMYLASE/LIPASE/PROTEA 120,000/24,000/76,000 U (CREON 24) 24,000 UNITS PO TID MEALS ALBUTEROL (PROAIR DIGIHALER 90 MCG/ACT 0.65 GM) 2 PUFF INH RTQ6H Past Medical History: Reports: Asthma, Pancreatitis. Additional Medical History Pancreatitis Past Surgical History: Denies: Abdominal surgery. Family History: Denies: CAD < 40 yrs old. Additional Family History n/c Alcohol Use Denies EtOH use Drug Use Denies recreational drugs Other Social History Primary family support Additional Social History family hx- unknown Physical Exam Vital Signs Vital Signs First Documented: Result Date Time Pulse Ox 96 07/02 2053 B/P 133/77 07/02 2053 B/P Mean 95 07/02 2053 O2 Delivery Room air 07/02 2053 Temp 36.8 07/02 2053 Pulse 82 07/02 2053 Resp 15 07/02 2053 Last Documented: Result Date Time Pulse Ox 97 07/03 2139 B/P 126/68 07/02 2129 B/P Mean 89 07/02 2129 Pulse 52 07/02 2129 Resp 14 07/03 2103 O2 Delivery Room air 07/02 2053 Temp 36.8 07/02 2053 Review of Vital Signs Reviewed Focused PE General/Const General/Const Awake, Alert, Well appearing Eyes Eyes PERRL, EOMI MS Neck Neck Supple, Full range of motion, No swelling, Non-tender, No masses, No JVD Resp/Chest Respiratory/Chest Breath sounds NL, Breath sounds = bilat, No respiratory distress, No rales, No rhonchi, No wheezing, No chest tenderness Cardiovascular Cardiovascular Heart rate NL, Regular rhythm, Heart sounds NL, No murmurs, Peripheral circulation NL, Pulses = bilaterally, No gross BP differential Abdomen/GI Abdomen/GI Soft, Non-tender, No guarding, No rebound MS Back Back Inspection NL, Non-tender, No CVA tenderness MS Lower Extrem Lower Ext/Pelvis/MS Inspection NL, No swelling, Non-tender, No erythema, No deformity, Neurologic intact, Vascular intact, No edema Skin Skin Color NL, Warm, Dry, Turgor NL Neurologic Neurologic Oriented X3, Speech NL, No motor deficits, No sensory deficits Psychiatric Psychiatric Affect NL, Mood NL, Thought content NL Interpretation Diagnostics Lab Results Interpretation Results Laboratory Tests 07/03/232057: [Embedded Image Not Available] Laboratory Tests: 07/02 2057 Chemistry Sodium (136 - 145 mmol/L) 136 Potassium (3.5 - 5.1 mmol/L) 3.6 Chloride (98 - 107 mmol/L) 101.0 Carbon Dioxide (21 - 32 mmol/L) 29.0 Anion Gap (10 - 20) 9.6 L BUN (7 - 18 mg/dL) 15 Creatinine (0.7 - 1.3 mg/dL) 1.00 Glomerular Filtr Rate (>=60 mL/min) > 60 BUN/Creatinine Ratio (10 - 20) 14.3 Glucose (74 - 106 mg/dL) 103 Calcium (8.5 - 10.1 mg/dL) 8.8 Total Bilirubin (0.0 - 1.0 mg/dL) 1.60 H Direct Bilirubin (0.0 - 0.20 mg/dL) 0.60 H AST (15 - 37 IUnit/L) 19 ALT (12 - 78 IUnit/L) 18 Total Alk Phosphatase (45 - 117 IUnit/L) 62 Troponin I (0 - 54 pg/mL) 6.060 Total Protein (6.4 - 8.2 gram/dL) 7.1 Albumin (3.4 - 5.0 g/dL) 3.9 Globulin (2.7 - 4.2 gram/dL) 3.2 Albumin/Globulin Ratio (0.75 - 1.50) 1.2 Lipase (12 - 57 U/L) 60 H Hematology WBC (4.5 - 12.5 K/mm3) 6.5 RBC (4.0 - 5.8 mill/mm3) 4.06 Hgb (13.0 - 17.5 gram/dL) 12.7 L Hct (42.0 - 52.0 %) 37.2 L MCV (80 - 98 fL) 91.6 MCH (27.0 - 33.0 picogram) 31.3 MCHC (33.0 - 36.0 gram/dL) 34.1 RDW (11.6 - 16.2 %) 12.9 Plt Count (150 - 450 K/mm3) 310 MPV (6.7 - 11.0 fL) 9.9 Recent Impressions: RADIOLOGY - XR CHEST 1 V 07/02 2104 Report Impression - Status: SIGNED Entered: 07/03/20232122 IMPRESSION: No acute cardiopulmonary process. Location: Impression By: [email or web address] - Edu Witt M.D. Lab Imaging Statement Laboratory radiographic studies reviewed and considered in the medical decision-making. ECG #1 Interpretation Text/Dict Note ST elevation noted but likely due to early repolarization. No change from prior EKGs. Date 07/03/23 Time 2057 Interpreted by and reviewed by me, Independently interpreted, ED physician NL ECG Interpretation Normal rate, Normal sinus rhythm, No acute ischemic changes, No STEMI Re-Evaluation MDM Free Text MDM Notes Free Text MDM Notes Prior inpatient records reviewed from 06/30/2023. Patient had presented with chest pain and was taken to the [facility]. Cardiology report states patient had no significant epicardial stenosis. Additional Text Differential Diagnosis Acute coronary syndrome, Acute myocardial infarct, Anxiety disorder, Aortic dissection, Chest pain, Chest pain, acute, Cholelithiasis, Congestive heart failure, Costochondritis, Dysrhythmia, Esophageal rupture, Esophagitis, Gastritis, GERD, Hiatal hernia, Musculoskeletal pain, Myocardial infarction, Myocarditis, Peptic ulcer disease, Pneumomediastinum, Pneumonia, Pneumothorax, Pulmonary edema, Pulmonary embolism, Stable angina, Unstable angina Re-Evaluation/Progress #1 Text/Dict Note Patient denies exertional or stuttering symptoms. Patient denies palpitations or syncope. Patient denies lower extremity swelling or pain. Denies recent long distance travel or prior history of DVT. Patient is low risk for ACS. No risk factors for PE. Time of Re-Eval 2132 ED Course Medication(s) Ordered Medication(s) Ordered: Central Nervous System Agents Sig/José Miguel Start time Last Medication Dose Route Stop Time Status Admin Acetaminophen 1,000 MG X1ED STA 07/02 2130 DC PO 07/03 2131 Patient Discharge Departure Vital Signs/Condition Vital Signs First Documented: Result Date Time Pulse Ox 96 07/02 2053 B/P 133/77 07/02 2053 B/P Mean 95 07/02 2053 O2 Delivery Room air 07/02 2053 Temp 36.8 07/02 2053 Pulse 82 07/02 2053 Resp 15 07/02 2053 Last Documented: Result Date Time Pulse Ox 97 07/03 2139 B/P 126/68 07/02 2129 B/P Mean 89 07/02 2129 Pulse 52 07/02 2129 Resp 14 07/03 2103 O2 Delivery Room air 07/02 2053 Temp 36.8 07/02 2053 All vital signs available at the time of this entry have been reviewed. Clinical Impression Clinical Impression Primary Impression: Chronic chest pain Disposition Decision Discharge )( Discharged to Home Yes )( Time 2133 )( Date 07/03/23 Discharge/Care Plan Counseled Regarding Diagnosis, Lab results, Imaging studies, Need for follow-up, When to return to ED Patient Instructions ED Chest Pain, Uncertain Cause Referrals Provider Referral: Steve Caba MD Follow-Up: 1 Week Address: [address] [place] [address] [address] [place] [id number] Quality Measures 12-Lead ECG for CP Performed documented at 2358 RPT #:[id number] END OF REPORT [facility] 2023-06-30 17:39:00 [facility] ([facility]) Cardiology Consultation REPORT#:[id number] REPORT STATUS: Signed REPORT INITIALIZATION DATE:06/30/23 TIME: 1738 PATIENT: TANNER BENDER UNIT #: [id number] ROOM/BED: [place] [address] : 84 AGE: 37 SEX: M ATTEND: Henry Mares MD ADM AUTHOR: Nazanin Matute MD REPT SERVICE DT/TIME: 06/30/231738 * ALL edits or amendments must be made on the electronic/computer document * History of Present Illness HPI Requesting Clinician: ED Reason for consult: EKG changes Chief complaint: CP/SOB PCP: PCP: Robin Fernandez MD HPI: This is a 37-year-old male with a past medical history of chronic pancreatitis. The patient has been noted to be seen in January 2023 with normal epicardial coronary arteries as well as negative troponin as he at that time had significant chest pain associated shortness of breath and diaphoresis. ST elevations were noted on that EKG as well as this present EKG. The patient came in with significant ST elevations and given that as well as the symptoms he was brought urgently to the cardiac catheterization lab. He was found to have significant no epicardial stenosis however did have WESLEY II flow. History - Adult longitudinal Past medical history: Reports: Asthma, Pancreatitis. Additional medical history: Pancreatitis Past surgical history: Denies: Abdominal surgery. Family history: Denies: CAD < 40 yrs old. Alcohol use: Denies EtOH use Drug use: Denies recreational drugs Smoking status for patients 13 years old or older: Never Smoker Other social history: Primary family support Additional social history: family hx- unknown Home medications: Home Medications: ALPRAZolam (XANAX) 2 MG PO TID PRN ANXIETY HYDROmorphone (DILAUDID) 2 MG PO Q4H PRN PRN PAIN SCALE 7-10 AMYLASE/LIPASE/PROTEA 120,000/24,000/76,000 U (CREON 24) 24,000 UNITS PO TID MEALS ALBUTEROL (PROAIR DIGIHALER 90 MCG/ACT 0.65 GM) 2 PUFF INH RTQ6H Allergies: Coded Allergies: Penicillins (Severe, THROAT SWELLS UP 06/30/23) Review of Systems Unable to obtain due to: in discomfort and distress Objective General VS/I O: Vital Signs: Date Time Temp Pulse Resp B/P B/P Pulse O2 O2 Flow FiO2 Mean Ox Delivery Rate 06/29 1628 97.9 44 16 157/97 116.9 98 Room air 06/29 1302 97.9 71 19 124/80 94 97 Room air PATIENT WEIGHT: Weight (lb): Weight (oz): Weight (kg): 61.364 Medications: Active Meds + DC'd Last 24 Hrs Aspirin (ASPIRIN) 81 MG DAILY PO Tramadol HCl (ULTRAM) 50 MG Q4H PRN PRN PO Atropine Sulfate (ATROPINE SULFATE 0.1MG/ML SYR) 0.5 MG ASDIR PRN IV Sodium Chloride (SODIUM CHLORIDE 0.9%) 1,000 ML .[id number] IV Sodium Chloride (SODIUM CHLORIDE 0.9%) 500 ML ASDIR PRN IV Fentanyl Citrate (SUBLIMAZE) 0 .STK-MED ONE .ROUTE (DC) Midazolam HCl (VERSED) 0 .STK-MED ONE .ROUTE (DC) Acetaminophen (TYLENOL) 650 MG Q4H PRN PRN PO Hydralazine HCl (APRESOLINE) 10 MG Q6H PRN PRN IV Ondansetron HCl (ZOFRAN) 4 MG Q4H PRN PRN IV Polyethylene Glycol (MIRALAX) 17 GM DAILY PRN PRN PO Heparin Sodium (HEPARIN SODIUM) 0 .STK-MED ONE .ROUTE (DC) Heparin Sodium/Sodium Chloride (HEPARIN 2,000 UNITS/NS 1,000mL) 1,000 ML .STK-MED ONE IV (DC) Heparin Sodium/Sodium Chloride (HEPARIN 1,000 UNITS/NS 500ML) 500 ML .STK- MED ONE IV (DC) Lidocaine HCl (LIDOCAINE HCL/PF) 0 .STK-MED ONE .ROUTE (DC) Verapamil HCl (ISOPTIN) 0 .STK-MED ONE IV (DC) Heparin Sodium (HEPARIN 5000 UNITS/ML) 4,295.48 UNIT X1ED STA IV (DC) Sodium Chloride (SODIUM CHLORIDE 0.9%) 1,000 ML X1ED STA IV (DC) Albuterol/Ipratropium (DUONEB) 3 ML X1ED STA NEB (DC) Dexamethasone Sodium Phosphate (DECADRON) 10 MG X1ED STA IV (DC) Famotidine (PEPCID) 20 MG X1ED STA IV (DC) Morphine Sulfate (morphine SULFATE) 4 MG X1ED STA IV (DC) Ondansetron HCl (ZOFRAN) 4 MG X1ED STA IV (DC) Physical Exam General appearance: alert, awake, oriented Head/Eyes: normal conjunctiva/sclera, normocephalic ENT: moist mucosal membranes, normal pharynx Neck: full range of motion, non-tender Cardiovascular: CV assessment: regular rate and rhythm, no thrill Respiratory: decreased breath sounds, no distress Abdomen: soft, non-tender, no distention Upper extremity: UE assessment: normal temperature, no clubbing, no cyanosis Lower extremity: LE assessment: normal temperature, no clubbing, no cyanosis Musculoskeletal: full range of motion, normal inspection Neuro/BOBBIN DISKER: alert, normal speech Skin: dry, intact Psychiatry: anxious Results Findings/Data: Laboratory Tests 06/29 1328 Chemistry Sodium (134 - 147 mEq/L) 134 Potassium (3.4 - 5.0 mEq/L) 4.4 Chloride (100 - 108 mEq/L) 103 Carbon Dioxide (21 - 33 mEq/l) 25 Anion Gap (0 - 20) 10 BUN (7 - 25 mg/dL) 10 Creatinine (0.6 - 1.3 mg/dL) 1.1 Glomerular Filtr Rate (105 - 110) 88.1 L Glucose (77 - 141 mg/dL) 125 Calcium (8.0 - 10.5 mg/dL) 8.2 Troponin I High Sens (0 - 54 ng/L) < 3 Laboratory Tests 06/29 1328 Hematology WBC (4.5 - 11.0 x10 3/uL) 8.9 RBC (4.00 - 5.60 x10 6/uL) 4.22 Hgb (12.5 - 16.9 g/dL) 12.9 Hct (37.5 - 50.7 %) 38.7 MCV (81.0 - 99.0 fL) 91.7 MCH (27.0 - 33.0 pg) 30.6 MCHC (33.0 - 37.0 g/dL) 33.3 RDW (11.5 - 14.5 %) 13.1 Plt Count (150 - 400 x10 3/uL) 336 MPV (7.0 - 9.0 fL) 10.1 H Neut % (Auto) (56.0 - 77.0 %) 55.7 L Lymph % (Auto) (14.0 - 32.0 %) 32.2 H Randolph % (Auto) (4.8 - 9.0 %) 7.1 Eos % (Auto) (0.3 - 3.7 %) 3.7 Baso % (Auto) (0.0 - 2.0 %) 1.0 Neut # (Auto) (2.0 - 7.6 x10 3/uL) 4.96 Lymph # (Auto) (1.0 - 3.8 x10 3/uL) 2.87 Randolph # (Auto) (0.1 - 0.8 x10 3/uL) 0.63 Eos # (Auto) (0.0 - 0.2 x10 3/uL) 0.33 H Baso # (Auto) (0.0 - 0.2 x10 3/uL) 0.09 Abs Immat Gran (auto) (0.00 - 0.03 x10 3/uL) 0.03 Immature Gran % (0.0 - 2.0 %) 0.3 Nucleated RBC % (0 - 0 %) 0.0 Nucleated RBCs # (Man) (0.0 - 0.1 x10 3/uL) 0.00 Radiology Data: Recent Impressions: RADIOLOGY - XR CHEST 1 V 06/29 1628 Report Impression - Status: SIGNED Entered: 06/30/2023 1646 IMPRESSION: No acute cardiopulmonary disease. Location: [facility] Impression By: RitoRMCristopher - Anson Bee M.D. Results: labs reviewed, vital signs reviewed, cath.personally reviewed, rhythm personally rev'd, current med profile rev'd Diagnosis, Assessment Plan Free Text DxA P Notes Free Text DxA P Notes: 1. Chest pain 2. Chronic pancreatitis 3. Abnormal EKG 06/30/2023 Patient comes in for crushing chest pain and diaphoresis and shortness of breath. His EKG at baseline is abnormal with ST elevation. Given that and the constellation of symptoms she was brought emergently to the cardiac catheterization lab where he was found to have no significant epicardial stenosis. He had WESLEY II flow however no significant major issues and no culprit. It should be noted upon review of prior notes that the patient has had multiple hospitalization visits due to chest pain and chest discomfort. The patient has had prior cardiac catheterizations as well. He has been treated as if he has pericarditis in the past however it is unclear if that would be necessary. Recommend chronic pain management and etiology per other teams. Right radial access, no significant epicardial stenosis. He has what appears to be pain and has had multiple cardiac catheterization. As such, I recommend that other issues to be looked into. at 1745 RPT #:[id number] END OF REPORT [facility] 2023-06-30 17:21:00 [id number] [address] [address] PATIENT NAME: TANNER BENDER ADMIT DATE: 06/30/23 ACCOUNT NO: [id number] ROOM NO: G.[id number] AGE: 37 REPORT TYPE: eECHOCARDIOGRAM REPORT SEX: M ADMITTING PHYSICIAN:Henry Mares MD ATTENDING PHYSICIAN:Henry Mares MD *[address] [address] Transthoracic Echocardiogram Patient: Tanner Bender Study Date: 06/30/2023 BP: 113 / 69 URN: [id number] Location: : 1985 Age: 37 Gender: M Height: 72 in / 182.9 cm Weight: 135 lb / 61.2 kg BMI/BSA: 18.3 kg/m 2 / 1.75 m 2 *Ordering Physician: * John Paul Iverson NP *Interpreting Physician: * Nazanin Matute MD *Cryptologic Technician Technical: * Vanessa West [facility] Indications: CHEST PAIN. Study data: Transthoracic echocardiogram. Procedure: A transthoracic echocardiogram was performed. Images were obtained using a [facility] cardiac ultrasound machine. Image quality was good. Complete 2D, complete spectral Doppler, and color Doppler. Location: Recovery room. Patient status: Inpatient. Patient room number: PACU 23. Heart rate: 47 bpm. Findings Left ventricle: The cavity size is normal. Wall thickness is normal. Systolic function is normal. The estimated ejection fraction is 55-60%. Wall motion is normal; there are no regional wall motion abnormalities. Left ventricular diastolic function parameters are normal. PATIENT NAME: TANNER BENDER Right ventricle: The cavity size is dilated. Systolic function is normal. Left atrium: The atrium is normal in size. Right atrium: The atrium is dilated. Aorta: Aortic root: The root is normal-sized. Aortic valve: Not well visualized. There is no evidence of stenosis. There is no regurgitation. Mitral valve: The valve is structurally normal. There is no evidence of stenosis. There is mild regurgitation. Tricuspid valve: The valve is structurally normal. There is mild-moderate regurgitation. PASP estimated at 26 mmHg. Pulmonic valve: Not well visualized. There is no regurgitation. Pericardium: There is no pericardial effusion. Systemic veins: Inferior vena cava: The IVC is normal-sized. Measurements Left ventricle Value Ref 11/11/2022 KIMBERLY, LAX 4.2 cm 4.2 - 5.8 4.3 ESD, LAX 2.9 cm 2.5 - 4.0 3.2 FS, LAX 31 % 25 - 43 26 KIMBERLY major ax, A2C 6.7 cm --------- ESD major ax, A2C 5.9 cm --------- IVS, ED 0.9 cm 0.6 - 1.0 1.1 PW, ED 1.0 cm 0.6 - 1.0 1.1 IVS/PW, ED 0.99 --------- 0.96 EF 59 % 52 - 72 51 E', lat cristian, TDI 8.1 cm/sec >=10.0 E/e', lat cristian, TDI 9 <=13 E', med cristian, TDI 9.9 cm/sec >=7.0 E/e', med cristian, TDI 7 --------- E', avg, TDI 9.0 cm/sec --------- E/e', avg, TDI 8 <=14 LVOT Value Ref 11/11/2022 Diam, S 2.11 cm --------- Area 3.5 cm 2 --------- 3.2 Peak paolo, S 1.03 m/sec --------- 1.1 Mean paolo, S 0.74 m/sec --------- 0.72 VTI, S 23.2 cm --------- 21.5 Peak grad, S 4 mm Hg --------- 5 Mean grad, S 2 mm Hg --------- 2 SV 81 ml --------- 70 Qs 15.62 L/min --------- Qs/bsa 8.9 L/(min-m 2) --------- SV/bsa 46 ml/m 2 --------- 37 Right ventricle Value Ref 11/11/2022 KIMBERLY, LAX 2.7 cm --------- 2.5 TAPSE, MM 2.4 cm >=1.7 Left atrium Value Ref 11/11/2022 PATIENT NAME: TANNER BENDER AP dim, ES 2.8 cm 3.0 - 4.0 2.4 Vol/bsa, S 30 ml/m 2 16 - 34 Vol/bsa, ES, 1-p A4C 21 ml/m 2 12 - 37 Vol, ES, 2-p 53 ml --------- Vol/bsa, ES, 2-p 30 ml/m 2 16 - 34 Vol/bsa, ES, A/L 23 ml/m 2 16 34 Right atrium Value Ref 11/11/2022 Area, ES 21 cm 2 10 - 18 Aortic valve Value Ref 11/11/2022 Peak v, S 1 m/sec --------- 1.2 Mean v, S 0.74 m/sec --------- 0.79 VTI, S 20.3 cm --------- 23.7 Mean grad, S 2 mm Hg --------- 3 Peak grad, S 3.8 mm Hg --------- 5.5 LVOT/AV, VTI ratio 1.15 --------- 0.91 KELL, VTI 4.00 cm 2 --------- 2.94 LVOT/AV, Vpeak ratio 1.05 --------- 0.94 KELL, Vmax 3.67 cm 2 --------- 3.05 Mitral valve Value Ref 11/11/2022 Peak E 0.69 m/sec --------- 0.99 Peak A 0.73 m/sec --------- 0.55 Decel time 161 ms --------- 160 Peak E/A ratio 0.95 --------- Tricuspid valve Value Ref 11/11/2022 TR peak v 2.3 m/sec <=2.8 2.7 Peak RV-RA grad, S 22 mm Hg --------- 29 Aortic root Value Ref 11/11/2022 Root diam 3.7 cm 2.5 - 3.4 Conclusions Summary: 1. Left ventricle: The cavity size is normal. Wall thickness is normal. Systolic function is normal. The estimated ejection fraction is 55-60%. Wall motion is normal; there are no regional wall motion abnormalities. Left ventricular diastolic function parameters are normal. 2. Right ventricle: The cavity size is dilated. Systolic function is normal. 3. Right atrium: The atrium is dilated. 4. Mitral valve: There is mild regurgitation. 5. Tricuspid valve: There is mild-moderate regurgitation. PASP estimated at 26 mmHg. Electronically signed by Nazanin Matute MD 06/30/2023 17:21 PATIENT NAME: TANNER BENDERL at 1721 PATIENT NAME: TANNER BENDER [facility] 2023-06-30 14:12:00 [id number] [place] [address] PATIENT NAME: TANNER BENDER ADMIT DATE: 06/30/23 ACCOUNT NO: [id number] ROOM NO: [facility] AGE: 37 REPORT TYPE: CARDIAC CATHETERIZATION REPORT SEX: M ADMITTING PHYSICIAN:Henry Mares MD ATTENDING PHYSICIAN:Henry Mares MD PROCEDURE DATE: 06/30/2023 TITLE OF PROCEDURE: Cardiac catheterization. CLINICAL PROFILE: This is a 37-year-old male with past medical history of chronic pancreatitis, who presented to the hospital in the setting of crushing chest pain and chest discomfort associated with shortness of breath and dyspnea. He had EKG done, which showed ST elevations in the some of the precordial leads, although there were no reciprocal depressions. However, given the crushing chest pain and discomfort that the patient complained of as well as the significant EKG abnormality, it was more prudent to bring the patient to the medical laboratory scientist to exclude potential significant myocardial infarction, thus he was brought emergently to the cardiac catheterization lab. PREPROCEDURE DIAGNOSES: 1. Chest pain and chest discomfort. 2. Abnormal EKG. 3. Chronic pancreatitis. POSTPROCEDURE DIAGNOSES: 1. Chest pain and chest discomfort. 2. Abnormal EKG. 3. Chronic pancreatitis. PROCEDURES PERFORMED: 1. Ultrasound-guided right radial artery access with a micropuncture set and subsequent placement of a 6-Mosotho slender sheath. 2. Selective coronary angiography of the left and right coronary arteries using 5-Mosotho TIG catheter to cannulate. 3. Left heart catheterization using 5-Mosotho angled pigtail catheter. 4. Application of TR band for hemostasis. ELEVATOR TENDER: Nazanin Matute M.D. ANESTHESIA USED: Moderate sedation. DESCRIPTION OF PROCEDURE: The patient was brought emergently to the medical laboratory scientist after discussion of risks, benefits and alternatives and was agreeable to proceed. 1% lidocaine was used to anesthetize the area of the right wrist. Ultrasound guidance was used to gain access to the right radial artery and we placed a 6-Mosotho slender sheath. We then gave a cocktail mixture of verapamil and nitroglycerin to prevent radial artery spasm and gave 5000 units of heparin to prevent radial artery occlusion. We then used a 5-Mosotho TIG catheter to PATIENT NAME: TANNER BENDER cannulate the left main and the right coronary artery. We then used a 5-Mosotho angled pigtail catheter to perform left heart catheterization. At the conclusion, we removed our equipment and applied a TR band for hemostasis here and we reviewed findings. FINDINGS: Overall, there is patency of the left main as well as the LAD and the diagonal branches. The there is a ramus as well as high obtuse marginal branch. Circumflex is overall nondominant. The right coronary artery is dominant and is patent. Of note, there is WESLEY 2 flow noted throughout. The left heart pressures include LV systolic pressure 1-2 mmHg, LVEDP 14 mmHg, aortic pressure 98/39 mmHg with mean arterial pressure of 66 mmHg. LVEF was estimated at 55-60%. DISPOSITION: Return the patient to the unit and monitor for complications. ESTIMATED BLOOD LOSS: Minimal. CONDITION: Critical yet stable. COMPLICATIONS: None. SPECIMENS: None. PLAN: Overall, the patient has no significant obstructive disease identified. Recommend further evaluation of discomfort with other testing per primary team. Dictated By: Nazanin Matute MD Date Dictated: 06/30/2023 14:12:55 Date Transcribed: 06/30/2023 14:31:19 SHERLY/MELISSA Receipt ID: [id number] Authenticated by Nazanin Matute MD On 07/01/2023 11:20:48 AM at 1120 PATIENT NAME: TANNER BENDER [facility] 2023-06-30 13:35:00 [facility] Hospitalist History Physical REPORT#:[id number] REPORT STATUS: Signed REPORT INITIALIZATION DATE:06/30/23 TIME: 1334 PATIENT: TANNER BENDER UNIT #: [id number] ROOM/BED: [place] [address] : 84 AGE: 37 SEX: M ATTEND: Henry Mares MD ADM AUTHOR: Toro Quevedo RUBBER GOODS INSPECTOR TESTER REPT SERVICE DT/TIME: 06/30/23 1335 * ALL edits or amendments must be made on the electronic/computer document * History of Present Illness HPI Chief complaint: STEMI PCP: PCP: Robin Fernandez MD HPI: 29-year-old male with history of asthma, pancreatitis presents with 2 weeks of chest pain shortness of breath. He says that he was seen at another ER 3 weeks ago for similar symptoms, discharged with cardiology follow-up. He was seen by winding department supervisor who told him he had an abnormal EKG but did not recommend any further testing or intervention. He reports family history of father with [place] 58. His EKG showed ST elevations in leads V3, V4, V5, V6. STEMI was activated. History Past medical history: Reports: Asthma, Pancreatitis. Additional medical history: Pancreatitis Past surgical history: Denies: Abdominal surgery. Additional family history: n/c Alcohol use: Denies EtOH use Drug use: Denies recreational drugs Smoking status for patients 13 years old or older: Never Smoker Other social history: Primary family support Additional social history: family hx- unknown Medication/Allergy-Vaccine Hx Medications: Home Medications: Medication Dose/Rte/Freq Days Qty Entered Last Max Daily Dose Reviewed ALPRAZolam (XANAX) 2 MG PO 07/13/22 Strength: 2 MG TAB TID PRN ANXIETY 2307 HYDROmorphone (DILAUDID) 2 MG PO 11/11/22 Strength: 2 MG TAB Q4H PRN PRN PAIN 1341 SCALE 7-10 AMYLASE/LIPASE/PROTEA 24,000 UNITS PO 02/02/23 120,000/24,000/76,000 U TID MEALS 1915 (CREON 24) Strength: 24-76-120K CAP. ALBUTEROL 2 PUFF INH RTQ6H 11/11/22 (PROAIR DIGIHALER 90 1017 MCG/ACT 0.65 GM) Strength: 90 MCG INHALER Current Hospital Medications: Autonomic Drugs Sig/José Miguel Start time Last Medication Dose Route Stop Time Status Admin Albuterol/Ipratropium 3 ML X1ED STA 06/29 1307 DC (DUONEB) NEB 06/29 1308 Blood Formation,Coagulation Sig/José Miguel Start time Last Medication Dose Route Stop Time Status Admin Heparin Sodium 4,295.48 UNIT X1ED STA 06/29 1325 DC 06/29 (HEPARIN 5000 UNITS/ IV 06/29 1326 1330 ML) Central Nervous System Agents Sig/José Miguel Start time Last Medication Dose Route Stop Time Status Admin Morphine Sulfate 4 MG X1ED STA 06/29 1306 DC 06/29 (morphine SULFATE) IV 06/29 1307 1334 Electrolytic, Caloric, And Sneha Sig/José Miguel Start time Last Medication Dose Route Stop Time Status Admin Sodium Chloride 1,000 ML X1ED STA 06/29 1324 AC 06/29 (SODIUM CHLORIDE IV 06/29 1423 1331 0.9%) Eye, Ear, Nose And Throat (Een Sig/José Miguel Start time Last Medication Dose Route Stop Time Status Admin Dexamethasone Sodium 10 MG X1ED STA 06/29 1307 DC Phosphate IV 06/29 1308 (DECADRON) Gastrointestinal Drugs Sig/José Miguel Start time Last Medication Dose Route Stop Time Status Admin Famotidine 20 MG X1ED STA 06/29 1306 DC 06/29 (PEPCID) IV 06/29 1307 1334 Ondansetron HCl 4 MG X1ED STA 06/29 1306 DC (ZOFRAN) IV 06/29 1307 Allergies: Coded Allergies: Penicillins (Severe, THROAT SWELLS UP 06/30/23) Review of Systems Constitutional: fatigue, generalized weakness. Allergy/Immun: Denies: allergic reaction, itching, sneezing. Respiratory: Denies: PEREZ (dyspnea on exertion), parox nocturnal dyspnea, SOB. Cardiovascular: chest pain, PEREZ (dyspnea on exertion). GI: Denies: anorexia, dysphagia, hematochezia, hiatal hernia, nausea. : Denies: flank pain, hematuria, penile discharge, testicular pain, testicular swelling. Musculoskeletal: Denies: extremity pain, joint pain, myalgias, thoracic pain. Endocrine: Denies: heat intolerance, polyphagia, polyuria, weight loss. Neuro: Denies: bowel dysfunction, confusion, gait problem, seizure, unable to speak. Objective General VS/I O: Vital Signs: Date Time Temp Pulse Resp B/P B/P Pulse O2 O2 Flow FiO2 Mean Ox Delivery Rate 06/29 1302 36.6 71 19 124/80 94 97 Room air PATIENT WEIGHT: Weight (lb): Weight (oz): Weight (kg): 61.364 Medications: Active Meds + DC'd Last 24 Hrs Heparin Sodium (HEPARIN 5000 UNITS/ML) 4,295.48 UNIT X1ED STA IV (DC) Sodium Chloride (SODIUM CHLORIDE 0.9%) 1,000 ML X1ED STA IV Albuterol/Ipratropium (DUONEB) 3 ML X1ED STA NEB (DC) Dexamethasone Sodium Phosphate (DECADRON) 10 MG X1ED STA IV (DC) Famotidine (PEPCID) 20 MG X1ED STA IV (DC) Morphine Sulfate (morphine SULFATE) 4 MG X1ED STA IV (DC) Ondansetron HCl (ZOFRAN) 4 MG X1ED STA IV (DC) Physical Exam General appearance: respiratory support, alert, awake, oriented Head/Eyes: atraumatic, normocephalic, PERRLA Neck: full range of motion, supple/no meningismus, no bruit/NL carotids Cardiovascular: normal capillary refill, normal heart sounds Respiratory: dyspneic, on oxygen, aerating well Abdomen: non-tender, normal bowel sounds, soft Genitourinary: no bladder distention, no flank pain Extremities: no calf tenderness, no clubbing, no cyanosis Musculoskeletal: no muscle spasm Neuro/BOBBIN DISKER: alert, oriented X 3, CNII-XII intact Results Findings/Data: Laboratory Tests 06/29 1328 Hematology WBC (4.5 - 11.0 x10 3/uL) 8.9 RBC (4.00 - 5.60 x10 6/uL) 4.22 Hgb (12.5 - 16.9 g/dL) 12.9 Hct (37.5 - 50.7 %) 38.7 MCV (81.0 - 99.0 fL) 91.7 MCH (27.0 - 33.0 pg) 30.6 MCHC (33.0 - 37.0 g/dL) 33.3 RDW (11.5 - 14.5 %) 13.1 Plt Count (150 - 400 x10 3/uL) 336 MPV (7.0 - 9.0 fL) 10.1 H Neut % (Auto) (56.0 - 77.0 %) 55.7 L Lymph % (Auto) (14.0 - 32.0 %) 32.2 H Randolph % (Auto) (4.8 - 9.0 %) 7.1 Eos % (Auto) (0.3 - 3.7 %) 3.7 Baso % (Auto) (0.0 - 2.0 %) 1.0 Neut # (Auto) (2.0 - 7.6 x10 3/uL) 4.96 Lymph # (Auto) (1.0 - 3.8 x10 3/uL) 2.87 Randolph # (Auto) (0.1 - 0.8 x10 3/uL) 0.63 Eos # (Auto) (0.0 - 0.2 x10 3/uL) 0.33 H Baso # (Auto) (0.0 - 0.2 x10 3/uL) 0.09 Abs Immat Gran (auto) (0.00 - 0.03 x10 3/uL) 0.03 Immature Gran % (0.0 - 2.0 %) 0.3 Nucleated RBC % (0 - 0 %) 0.0 Nucleated RBCs # (Man) (0.0 - 0.1 x10 3/uL) 0.00 Results: labs reviewed, vital signs reviewed, vital signs stable, current med profile rev'd Diagnosis, Assessment Plan Plan discussed with: patient, admitting physician, consultants, nurse Code Status/Resusc. Discussion Code status: full code Free Text DxA P Notes Free Text DxA P Notes: Assessment and Plan: - STEMI, ST elevations in leads V3, V4, V5, V6. - CP due to STEMI. - HX of Asthma and pancreatitis. Plan: CCU. Goint to medical laboratory scientist for STEMI. Received dose of heparin, Morphine and Zofran. Pain meds. Antiemetics. Follow labs and replace as needed. Continue home meds. Monitor. at 1346 at 2054 RPT #:[id number] END OF REPORT [facility] 2023-06-30 13:18:00 [phone] [place] [address] PATIENT NAME: TANNER BENDER ADMIT DATE: 06/30/23 ACCOUNT NO: [id number] ROOM NO: [facility] AGE: 37 REPORT TYPE: eELECTROCARDIOGRAM REPORT SEX: M ADMITTING PHYSICIAN:Henry Mares MD ATTENDING PHYSICIAN:Henry Mares MD Order: [id number] Test Reason : EKG Test Date/Time Stamp: FriJun 30 2023 13:18:54 Blood Pressure : / mmHG Vent. Rate : 058 BPM Atrial Rate : 058 BPM P-R Int : 128 ms QRS Dur : 094 ms QT Int : 386 ms P-R-T Axes : 061 106 071 degrees QTc Int : 378 ms Sinus bradycardia Rightward axis Biventricular hypertrophy ST elevation, consider anterolateral injury or acute infarct Abnormal ECG Confirmed by MD MATUTE OMAR ([id number]) on 07/01/2023 11:32:35 AM Referred By: Henry Mares Confirmed by:NAZANIN MATUTE MD at 1132 PATIENT NAME: TANNER BENDER [facility] 2023-06-30 13:09:00 [phone] [address] PATIENT NAME: TANNER BENDER ADMIT DATE: 06/30/23 ACCOUNT NO: [id number] ROOM NO: G.4410 AGE: 37 REPORT TYPE: eELECTROCARDIOGRAM REPORT SEX: M ADMITTING PHYSICIAN:Henry Mares MD ATTENDING PHYSICIAN:Henry Mares MD Order: [id number] Test Reason : Test Date/Time Stamp: FriJun 30 2023 13:09:45 Blood Pressure : / mmHG Vent. Rate : 067 BPM Atrial Rate : 067 BPM P-R Int : 120 ms QRS Dur : 090 ms QT Int : 358 ms P-R-T Axes : 051 074 065 degrees QTc Int : 378 ms Normal sinus rhythm Minimal voltage criteria for LVH, may be normal variant ( Sokolow-Bell ) Early repolarization Borderline ECG Confirmed by MD MATUTE OMAR ([id number]) on 07/01/2023 11:32:29 AM Referred By: Henry Mares Confirmed by:NAZANIN MATUTE MD at 1132 PATIENT NAME: TANNER BENDER [facility] 2023-06-30 13:07:00 [facility] EMERGENCY PROVIDER REPORT REPORT#:[id number] REPORT STATUS: Signed DATE:06/30/23 TIME: 1307 PATIENT: TANNER BENDER UNIT #: [id number] ROOM/BED: AGE: 37 SEX: M PCP PHYS: Robin Fernandez MD SERVICE AUTHOR: Thor Brown MD * ALL edits or amendments must be made on the electronic/computer document * HPI-General Illness Free Text HPI Notes Free Text HPI Notes 29-year-old male with history of asthma pancreatitis presents with 2 weeks of chest pain shortness of breath, notes that he was seen at another ER 3 weeks ago for similar symptoms, discharged with cardiology follow-up, he saw a winding department supervisor who told him he had an abnormal EKG but did not recommend any further testing or intervention. He reports family history of father with [place] 58. Denies history of VTE or malignancy, recent mobilization or trauma surgery, calf Pain or swelling, hormone therapy or mopped assist General Initial Greet Date/Time 06/30/23 1259 Presentation Chief Complaint Chest pain Review of Systems ROS Statements All systems rev neg except as marked. (as per hpi ) Past Medical History - Adult Stated Complaint CP, BACK PAIN, N/V Allergies Coded Allergies: Penicillins (Severe, THROAT SWELLS UP 06/30/23) Home Medications Reported Medications ALPRAZolam (XANAX) 2 MG PO TID PRN ANXIETY HYDROmorphone (DILAUDID) 2 MG PO Q4H PRN PRN PAIN SCALE 7-10 AMYLASE/LIPASE/PROTEA 120,000/24,000/76,000 U (CREON 24) 24,000 UNITS PO TID MEALS ALBUTEROL (PROAIR DIGIHALER 90 MCG/ACT 0.65 GM) 2 PUFF INH RTQ6H Past Medical History: Reports: Asthma, Pancreatitis. Additional Medical History Pancreatitis Past Surgical History: Denies: Abdominal surgery. Additional Family History n/c Alcohol Use Denies EtOH use Drug Use Denies recreational drugs Other Social History Primary family support Additional Social History family hx- unknown Physical Exam Vital Signs Vital Signs First Documented: Result Date Time Pulse Ox 97 06/29 1302 B/P 124/80 06/29 1302 B/P Mean 94 06/29 1302 O2 Delivery Room air 06/29 1302 Temp 36.6 06/29 1302 Pulse 71 06/29 1302 Resp 19 06/29 1302 Last Documented: Result Date Time Pulse Ox 97 06/29 1302 B/P 124/80 06/29 1302 B/P Mean 94 06/29 1302 O2 Delivery Room air 06/29 1302 Temp 36.6 06/29 1302 Pulse 71 06/29 1302 Resp 19 06/29 1302 Review of Vital Signs Reviewed Basic Physical Exam Basic PE HEAD: Atraumatic/NC, NECK: Supple, RESP: No resp distress, CV: Reg rate rhythm, EXT: No gross abnormality, SKIN: No rashes, warm/dry, NEURO: gross movement NL, PSYCH: NL thought content Interpretation Diagnostics Lab Results Interpretation Lab Imaging Statement Laboratory radiographic studies reviewed and considered in the medical decision-making. Point of Care Testing Pulse Oximetry Interpretation Interpreted by me, Pulse oximetry normal Re-Evaluation MDM Free Text MDM Notes Free Text MDM Notes Patient took 4 baby aspirin's at home Differential includes ACS PE pneumothorax pneumonia asthma exacerbation aortic dissection myocarditis EKG interpreted 1:09 PM sinus regular normal axis 67 bpm diffuse concave J-point elevations consistent with early repolarization and prior EKG on June 22 Repeat EKG interpreted at 1:18 PM sinus regular normal axis [address] elevations in leads V3, V4, V5, V6, STEMI activated at this time Discussed with winding department supervisor Dr. Matute, CVICU attending, Dr. Mares for admission PERC Rule for Pulmonary Embolism RESULT SUMMARY: 0 criteria No need for further workup, as <2% chance of PE. If no criteria are positive and clinician s pre-test probability is <15%, PERC Rule criteria are satisfied. INPUTS: Age =50 > 0 = No HR =100 > 0 = No O2 sat on room air > 0 = No Unilateral leg swelling > 0 = No Hemoptysis > 0 = No Recent surgery or trauma > 0 = No Prior PE or DVT > 0 = No Hormone use > 0 = No HEART Score for Major Cardiac Events RESULT SUMMARY: 4 points Moderate Score (4-6 points) Risk of MACE of 12-16.6%. If EKG is highly suspicious, many experts recommend further workup and admission even with a low HEART Score. INPUTS: History > 1 = Moderately suspicious EKG > 2 = Significant ST deviation Age > 0 = <45 Risk factors > 1 = 1-2 risk factors Initial troponin > 0 = =normal limit ED Course Medication(s) Ordered Medication(s) Ordered: Autonomic Drugs Sig/José Miguel Start time Last Medication Dose Route Stop Time Status Admin Albuterol/Ipratropium 3 ML X1ED STA 06/29 1307 DC NEB 06/29 1308 Blood Formation,Coagulation Sig/José Miguel Start time Last Medication Dose Route Stop Time Status Admin Heparin Sodium 4,295.48 UNIT X1ED STA 06/29 1325 DC IV 06/29 1326 Central Nervous System Agents Sig/José Miguel Start time Last Medication Dose Route Stop Time Status Admin Morphine Sulfate 4 MG X1ED STA 06/29 1306 DC IV 06/29 1307 Electrolytic, Caloric, And Sneha Sig/José Miguel Start time Last Medication Dose Route Stop Time Status Admin Sodium Chloride 1,000 ML X1ED STA 06/29 1324 AC IV 06/29 1423 Eye, Ear, Nose And Throat (Een Sig/José Miguel Start time Last Medication Dose Route Stop Time Status Admin Dexamethasone Sodium 10 MG X1ED STA 06/29 1307 DC Phosphate IV 06/29 1308 Gastrointestinal Drugs Sig/José Miguel Start time Last Medication Dose Route Stop Time Status Admin Famotidine 20 MG X1ED STA 06/29 1306 DC IV 06/29 1307 Ondansetron HCl 4 MG X1ED STA 06/29 1306 DC IV 06/29 1307 Patient Discharge Departure Vital Signs/Condition Vital Signs First Documented: Result Date Time Pulse Ox 97 06/29 1302 B/P 124/80 06/29 1302 B/P Mean 94 06/29 1302 O2 Delivery Room air 06/29 1302 Temp 36.6 06/29 1302 Pulse 71 06/29 1302 Resp 19 06/29 1302 Last Documented: Result Date Time Pulse Ox 97 06/29 1302 B/P 124/80 06/29 1302 B/P Mean 94 06/29 1302 O2 Delivery Room air 06/29 1302 Temp 36.6 06/29 1302 Pulse 71 06/29 1302 Resp 06/29 1302 All vital signs available at the time of this entry have been reviewed. Clinical Impression Clinical Impression Primary Impression: STEMI (ST elevation myocardial infarction) Disposition Decision Hospitalize Request Time 1334 Request Date 06/30/23 )( Accepts Hospitalization Yes )( Reason for Hospitalization emc )( Accepted Time 1334 )( Accepted Date 06/30/23 Discharge/Care Plan Admit Note I have spoken with the patient and/or caregivers. I have explained the patient's condition, diagnoses and treatment plan based on the information available to me at this time. I have answered the patient's and/or caregiver's questions and addressed any concerns. The patient and/or caregivers have as good an understanding of the patient's diagnosis, condition and treatment plan as can be expected at this point. The patient has been stabilized within the capability of the emergency department. The patient will be transported for further care and management or will be moved to an observation or inpatient service. I have communicated with the staff or medical practitioner taking over this patient's care. Critical Care CC Note 1 Total critical care time 30 minutes. Total critical care time documented does not include time spent on separately billed procedures or the services of residents, students, nurses or physician assistants. I personally saw and examined the patient. I have reviewed all diagnostic interpretations and treatment plans as written. I was present for the cristobal portions of any procedures performed and the inclusive time noted in any critical care statement. Critical care time includes patient management by me, time spent at the patients bedside, time to review lab and imaging results, discussing patient care, documentation in the medical record, and time spent with the family or caregiver. at 1335 RPT #:[id number] END OF REPORT [facility] 2023-06-26 18:53:00 [facility] ([facility]) EMERGENCY PROVIDER REPORT REPORT#:[id number] REPORT STATUS: Signed DATE:06/26/23 TIME: 1852 PATIENT: TANNER BENDER UNIT #: [id number] ROOM/BED: AGE: 37 SEX: M PCP PHYS: Robin Fernandez MD SERVICE AUTHOR: Iggy Copeland MD * ALL edits or amendments must be made on the electronic/computer document * Iggy Copeland 06/26/231852: HPI-Chest Pain Under 40 General Initial Greet Date/Time 06/26/231850 Presentation Chief Complaint Chest pain Hx Obtained From Patient, Prior medical records Sudden in Onset? No Onset Occurred Today Symptom Duration Since onset Progression since Onset Constant (non-stuttering 8+ hrs) Context of Onset At rest Location Substernal Quality Same as prior, Aching Radiation Does not radiate. )( Migration/Movement None Pain/Sev: Onset Mild Pain/Sev: Current Moderate Associated with Denies: Diaphoresis, Dizziness, Lightheaded, Near-syncope, Shortness of breath, Syncope. Exacerbated by Nothing Relieved by Nothing Free Text HPI Notes Free Text HPI Notes Denies exertional chest pain, sob, lightheadedness, syncope, arm or back pain, jaw pain, or sweating. Denies sudden onset CP/SOB, hemoptysis, unilateral leg/ calf pain/swelling, pleuritic chest pain, history of DVT or PE. Denies acute or sudden onset of pain, radiation to back or abdomen, family history of aortic dissection. Denies focal numbness, focal weakness, changes in vision/speech/ hearing/gait. Risk-Chest Pain Under 40 Risk Stratification )( Coronary Artery Disease Risk factors reviewed Thoracic Aortic Dissection Risk factors reviewed )( Pulmonary Embolism Risk factors reviewed )( HEART for MACE )( HEART for MACE Response Value History Mod index of suspicion 1 ECG Interpretation Nonspec repol disturb 1 Age Age under 45 0 Risk Factors for CAD 1-2 CAD risk factors 1 Troponin < or = to NL troponin 0 Total 3 Well's PE Score <2 pts (low risk 1.3%) PERC Rule No: Age 50 or over, Heart rate 100 or over, O2 sat on RA < 95%, Prior Hx of DVT/ PE, Recent trauma or surgery, Hemoptysis, Exogenous estrogen use, Unilateral leg swelling. Review of Systems ROS Statements All systems rev neg except as marked. Focused Review of Systems GI Denies: Abdominal pain, Diarrhea, Nausea, Vomiting. Neurologic Denies: Change LOC, Dizziness, Focal weakness, Headache, Numbness, Slurred speech. Past Medical History - Adult Stated Complaint CHEST PAIN Allergies Coded Allergies: Penicillins (Severe, THROAT SWELLS UP 06/26/23) Home Medications Reported Medications ALPRAZolam (XANAX) 2 MG PO TID PRN ANXIETY HYDROmorphone (DILAUDID) 2 MG PO Q4H PRN PRN PAIN SCALE 7-10 AMYLASE/LIPASE/PROTEA 120,000/24,000/76,000 U (CREON 24) 24,000 UNITS PO TID MEALS ALBUTEROL (PROAIR DIGIHALER 90 MCG/ACT 0.65 GM) 2 PUFF INH RTQ6H Review of Nursing Notes Rev avail, and agree Past Medical History: Reports: Asthma, Pancreatitis. Additional Medical History Pancreatitis Past Surgical History: Denies: Abdominal surgery. Additional Family History n/c Alcohol Use Denies EtOH use Drug Use Denies recreational drugs Other Social History Primary family support Additional Social History family hx- unknown Physical Exam Vital Signs Vital Signs First Documented: Result Date Time Pulse Ox 97 06/25 1850 B/P 115/67 06/25 1850 B/P Mean 83 06/25 1850 O2 Delivery Room air 06/25 1850 Temp 37.0 06/25 1850 Pulse 65 06/25 185 Resp 16 06/25 1850 Last Documented: Result Date Time Pulse Ox 95 06/25 2200 B/P 112/59 06/25 2200 B/P Mean 82 06/25 2199 Pulse 45 06/25 2199 Temp 36.9 06/26 2051 Resp 16 06/26 2051 O2 Delivery Room air 06/26 1915 Review of Vital Signs Reviewed Focused PE General/Const General/Const Awake, Alert, Well appearing Eyes Eyes PERRL MS Neck Neck Supple, Full range of motion, No swelling, Non-tender, No masses, No JVD Resp/Chest Respiratory/Chest Breath sounds NL, Breath sounds = bilat, No respiratory distress, No rales, No rhonchi, No wheezing, No chest tenderness Cardiovascular Cardiovascular Heart rate NL, Regular rhythm, Heart sounds NL, No murmurs, Peripheral circulation NL, Pulses = bilaterally, No gross BP differential Abdomen/GI Abdomen/GI Soft, Non-tender, No guarding, No rebound MS Back Back Inspection NL, Non-tender, No CVA tenderness MS Lower Extrem Lower Ext/Pelvis/MS Inspection NL, No swelling, Non-tender, No erythema, No deformity, Neurologic intact, Vascular intact, No edema Text/Dict Notes No calf pain or swelling bilaterally. Negative Homans sign bilaterally. Skin Skin Color NL, Warm, Dry, Turgor NL Neurologic Neurologic Oriented X3, Speech NL, No motor deficits, No sensory deficits Psychiatric Psychiatric Affect NL, Mood NL, Thought content NL Interpretation Diagnostics Lab Results Interpretation Results Laboratory Tests 06/26/231917: [Embedded Image Not Available] 06/26/231916: [Embedded Image Not Available] Laboratory Tests: 06/25 Chemistry Sodium (136 - 145 mmol/L) 137 Potassium (3.5 - 5.1 mmol/L) 4.4 Chloride (98 - 107 mmol/L) 104.0 Carbon Dioxide (21 - 32 mmol/L) 26.0 Anion Gap (10 - 20) 11.4 BUN (7 - 18 mg/dL) 10 Creatinine (0.7 - 1.3 mg/dL) 0.90 Glomerular Filtr Rate (>=60 mL/min) > 60 BUN/Creatinine Ratio (10 - 20) 11.6 Glucose (74 - 106 mg/dL) 96 Calcium (8.5 - 10.1 mg/dL) 9.0 Total Bilirubin (0.0 - 1.0 mg/dL) 0.50 Direct Bilirubin (0.0 - 0.20 mg/dL) 0.20 AST (15 - 37 IUnit/L) 18 ALT (12 - 78 IUnit/L) 15 Total Alk Phosphatase (45 - 117 IUnit/L) 58 Troponin I (0 - 54 pg/mL) <4.0 <4.0 Total Protein (6.4 - 8.2 gram/dL) 6.6 Albumin (3.4 - 5.0 g/dL) 3.4 Globulin (2.7 - 4.2 gram/dL) 3.2 Albumin/Globulin Ratio (0.75 - 1.50) 1.1 Lipase (12 - 57 U/L) 40 Hematology WBC (4.5 - 12.5 K/mm3) 7.9 RBC (4.0 - 5.8 mill/mm3) 3.87 L Hgb (13.0 - 17.5 gram/dL) 11.9 L Hct (42.0 - 52.0 %) 35.7 L MCV (80 - 98 fL) 92.2 MCH (27.0 - 33.0 picogram) 30.7 MCHC (33.0 - 36.0 gram/dL) 33.3 RDW (11.6 - 16.2 %) 13.2 Plt Count (150 - 450 K/mm3) 302 MPV (6.7 - 11.0 fL) 10.4 Recent Impressions: RADIOLOGY - XR CHEST 1 V 06/25 1900 Report Impression - Status: SIGNED Entered: 06/26/20231954 IMPRESSION: No acute abnormality. Impression By: [email or web address] - Donovan Graham M.D. ECG #1 Interpretation Text/Dict Note Diffuse ST elevation and J-point elevation without reciprocal changes consistent with benign early repolarization. Time 185 Interpreted by and reviewed by me, Independently interpreted, ED physician NL ECG Interpretation Normal rate, No STEMI, Normal QRS, Normal axis, Normal intervals, Adequate tracing Rate 67 ECG Q-T-ST - TN Non-specific ST changes Compared to Previous ECG unchanged Re-Evaluation MDM Free Text MDM Notes Free Text MDM Notes Differential diagnosis: Acute coronary syndrome, Acute myocardial infarct, Aortic dissection, Cholecystitis, Cholelithiasis, Congestive heart failure, Costochondritis, Dysrhythmia, Myocardial infarction, Myocarditis, Peptic ulcer disease, Pericarditis, Pneumomediastinum, Pneumothorax, Pulmonary embolism, Stable angina, Unstable angina Previous hospital records noted. CT angiogram chest abdomen pelvis on June 17, 2023 is normal. Re-Evaluation/Progress #1 Text/Dict Note Patient resting comfortably no complaints. Abdomen soft nontender sent. Lungs clear to auscultation bilaterally. Signed out to Dr. Casas is pending second troponin and final disposition. Heart score supports discharge home if negative. Time of Re-Eval 2054 Re-Eval Status Improved ED Course Medication(s) Ordered Medication(s) Ordered: Central Nervous System Agents Sig/José Miguel Start time Last Medication Dose Route Stop Time Status Admin Aspirin 324 MG X1ED STA 06/25 1853 DC PO 06/25 185 Morphine Sulfate 4 MG X1ED STA 06/25 1853 DC 06/25 IV 06/25 185 193 Electrolytic, Caloric, And Sneha Sig/José Miguel Start time Last Medication Dose Route Stop Time Status Admin Sodium Chloride 500 ML X1ED STA 06/25 1853 DC 06/25 IV 06/25 192 1941 Gastrointestinal Drugs Sig/José Miguel Start time Last Medication Dose Route Stop Time Status Admin Ondansetron HCl 4 MG X1ED STA 06/25 1853 DC 06/25 IV 06/25 185 193 Patient Discharge Departure Vital Signs/Condition Vital Signs First Documented: Result Date Time Pulse Ox 97 06/25 1851 B/P 115/67 06/25 185 B/P Mean 83 06/25 185 O2 Delivery Room air 06/25 185 Temp 37.0 06/25 185 Pulse 65 06/25 185 Resp 16 06/25 185 Last Documented: Result Date Time Pulse Ox 95 06/25 2200 B/P 112/59 06/25 2200 B/P Mean 82 06/25 2200 Pulse 45 06/25 2200 Temp 36.9 06/26 2051 Resp 16 06/26 2051 O2 Delivery Room air 06/25 191 All vital signs available at the time of this entry have been reviewed. Clinical Impression Clinical Impression Primary Impression: Chest pain Corie Casas 06/26/233: Re-Evaluation MDM Re-Evaluation/Progress #2 Text/Dict Note Care of patient assumed from Dr. Copeland. Patient presenting with chest pain. Has been seen in the ED couple times before for the same complaint. Today patient presenting with chest pain. No significant ST changes noted. Discussed with winding department supervisor who thought it was early repolarization. No acute STEMI. Labs were obtained that were unremarkable. Troponin is negative x 2. Patient is currently chest pain-free. Will discharge at this time. Recommend outpatient follow-up. Patient expressed understanding and is in agreement with plan of care but all question were answered Time of Eval 2333 Re-Eval Status Improved Differential Diagnosis )( Differential Diagnosis Acute coronary syndrome, Acute myocardial infarct, Anxiety disorder, Aortic dissection, Aortic stenosis, Asthma exacerbation, Bronchitis, Chest pain, Congestive heart failure, Contusion, Costochondritis, Dysrhythmia, Esophagitis, Gastritis, GERD, Musculoskeletal pain, Myocardial infarction, Myocarditis, Peptic ulcer disease, Pericarditis, Pleurisy, Pneumomediastinum, Pneumonia, Pneumothorax, Pulmonary edema, Pulmonary embolism, Stable angina, Unstable angina Patient Discharge Departure Disposition Decision Discharge )( Discharged to Home Yes )( Time 2333 )( Date 06/26/23 Discharge/Care Plan Counseled Regarding Diagnosis, Lab results, Imaging studies, Need for follow-up Patient Instructions ED Chest Pain, Noncardiac Referrals Provider Referral: Estrellita Dupree MD Follow-Up: 1 Week Address: [address] [place] [id number] Discharge Note I have spoken with the patient and/or caregivers. I have explained the patient's condition, diagnoses and treatment plan based on the information available to me at this time. I have answered the patient's and/or caregiver's questions and addressed any concerns. The patient and/or caregivers have as good an understanding of the patient's diagnosis, condition and treatment plan as can be expected at this point. The vital signs have been stable. The patient's condition is stable and appropriate for discharge from the emergency department. The patient will pursue further outpatient evaluation with the primary care physician or other designated or consulting physician as outlined in the discharge instructions. The patient and/or caregivers are agreeable to this plan of care and follow-up instructions have been explained in detail. The patient and/or caregivers have received these instructions in written format and have expressed an understanding of the discharge instructions. The patient and/or caregivers are aware that any significant change in condition or worsening of symptoms should prompt an immediate return to this or the closest emergency department or a call to 911. at 2056 at 2335 RPT #:[id number] END OF REPORT [facility] 2023-06-26 18:50:00 [phone] [facility] PATIENT NAME: TANNER BENDER ADMIT DATE: 06/26/23 ACCOUNT NO: [id number] ROOM NO: AGE: 37 REPORT TYPE: eEKG REPORT SEX: M DATE OF : [birth year] ADMITTING PHYSICIAN: ATTENDING PHYSICIAN: Order: [id number] Test Reason : Test Date/Time Stamp: FriJun 26 2023 18:50:55 Blood Pressure : / mmHG Vent. Rate : 067 BPM Atrial Rate : 067 BPM P-R Int : 122 ms QRS Dur : 090 ms QT Int : 364 ms P-R-T Axes : 029 083 060 degrees QTc Int : 384 ms Normal sinus rhythm Early repolarization Normal ECG When compared with ECG of 26-JUN-2023 18:19, RSR' pattern in V1 is no longer present Confirmed by ESTRELLITA MATUTE MD ([id number]) on 06/28/2023 1:48:05 PM Referred By: Self Referred Confirmed by:ESTRELLITA MATUTE MD at 1348 PATIENT NAME: TANNER BENDER [facility] 2023-06-23 22:10:00 [facility] ([facility]) EMERGENCY PROVIDER REPORT REPORT#:[id number] REPORT STATUS: Signed DATE:06/23/23 TIME: 2210 PATIENT: TANNER BENDER UNIT #: [id number] ROOM/BED: AGE: 37 SEX: M PCP PHYS: Robin Fernandez MD SERVICE AUTHOR: Michele Rowe MD * ALL edits or amendments must be made on the electronic/computer document * HPI-Chest Pain Under 40 Free Text HPI Notes Free Text HPI Notes Patient was to the ED complaint of chest pain shortness of breath. Ongoing for the past week. Sternal nonradiating. Similar episodes in the past. Denies exacerbating or alleviating factors. No acute distress. General Initial Greet Date/Time 06/23/232038 Presentation Chief Complaint Chest pain, Shortness of breath )( Migration/Movement None Review of Systems Focused Review of Systems Constitutional Denies: Chills, Fever, Lethargy. Respiratory Reports: Shortness of breath. Denies: Cough, non-productive, Cough, productive. Cardiovascular Reports: Chest pain. Denies: Dyspnea on exertion, Edema, Orthopnea, Palpitations, Parox nocturnal dyspnea, Syncope. GI Denies: Abdominal pain, Diarrhea, Nausea, Vomiting. Musculoskeletal Denies: Back pain, Extremity pain. Skin Denies: Diaphoresis, Rash. Neurologic Denies: Change LOC, Dizziness, Focal weakness, Headache, Numbness, Slurred speech. Psychiatric Denies: Anxiety, Depression. Past Medical History - Adult Stated Complaint CHEST PAIN-SOB Allergies Coded Allergies: Penicillins (Severe, THROAT SWELLS UP 06/30/23) Home Medications Reported Medications ALPRAZolam (XANAX) 2 MG PO TID PRN ANXIETY HYDROmorphone (DILAUDID) 2 MG PO Q4H PRN PRN PAIN SCALE 7-10 AMYLASE/LIPASE/PROTEA 120,000/24,000/76,000 U (CREON 24) 24,000 UNITS PO TID MEALS ALBUTEROL (PROAIR DIGIHALER 90 MCG/ACT 0.65 GM) 2 PUFF INH RTQ6H Calculated Suicide Risk (nurs) No risk Past Medical History: Reports: Asthma, Pancreatitis. Additional Medical History Pancreatitis Past Surgical History: Denies: Abdominal surgery. Additional Family History n/c Alcohol Use Denies EtOH use Drug Use Denies recreational drugs Smoking status for patients 13 years old or older: Smoker,current status UNK Other Social History Primary family support Additional Social History family hx- unknown Physical Exam Vital Signs Vital Signs First Documented: Result Date Time Pulse Ox 97 06/22 2012 B/P 119/75 06/22 2012 B/P Mean 89 06/22 2012 O2 Delivery Room air 06/22 2012 Temp 37.0 06/22 2012 Pulse 77 06/22 2012 Resp 18 06/22 2012 Last Documented: Result Date Time Pulse Ox 97 06/22 2012 B/P 119/75 06/22 2012 B/P Mean 89 06/22 2012 O2 Delivery Room air 06/22 2012 Temp 37.0 06/22 2012 Pulse 77 06/22 2012 Resp 18 06/22 2012 Review of Vital Signs Reviewed Focused PE General/Const General/Const Awake, Alert, Well appearing Eyes Eyes PERRL MS Neck Neck Supple, Full range of motion, No swelling, Non-tender, No masses, No JVD Resp/Chest Respiratory/Chest Breath sounds NL, Breath sounds = bilat, No respiratory distress, No rales, No rhonchi, No wheezing, No chest tenderness Cardiovascular Cardiovascular Heart rate NL, Regular rhythm, Heart sounds NL, No murmurs, Peripheral circulation NL, Pulses = bilaterally, No gross BP differential Abdomen/GI Abdomen/GI Soft, Non-tender, No guarding, No rebound MS Back Back Inspection NL, Non-tender, No CVA tenderness MS Lower Extrem Lower Ext/Pelvis/MS Inspection NL, No swelling, Non-tender, No erythema, No deformity, Neurologic intact, Vascular intact, No edema Skin Skin Color NL, Warm, Dry, Turgor NL Neurologic Neurologic Oriented X3, Speech NL, No motor deficits, No sensory deficits Psychiatric Psychiatric Affect NL, Mood NL, Thought content NL Interpretation Diagnostics Lab Results Interpretation Results Laboratory Tests 06/23/232047: [Embedded Image Not Available] Laboratory Tests: 06/22 Chemistry Sodium (136 - 145 mmol/L) 138 Potassium (3.5 - 5.1 mmol/L) 4.0 Chloride (98 - 107 mmol/L) 107.0 Carbon Dioxide (21 - 32 mmol/L) 26.0 Anion Gap (10 - 20) 9.0 L BUN (7 - 18 mg/dL) 8 Creatinine (0.7 - 1.3 mg/dL) 1.00 Glomerular Filtr Rate (>=60 mL/min) > 60 BUN/Creatinine Ratio (10 - 20) 8.2 L Glucose (74 - 106 mg/dL) 78 Calcium (8.5 - 10.1 mg/dL) 8.9 Troponin I (0 - 54 pg/mL) <4.0 B-Natriuretic Peptide (0 - 100 pgram/mL) 15.2 Hematology WBC (4.5 - 12.5 K/mm3) 9.4 RBC (4.0 - 5.8 mill/mm3) 4.18 Hgb (13.0 - 17.5 gram/dL) 12.8 L Hct (42.0 - 52.0 %) 39.3 L MCV (80 - 98 fL) 94.0 MCH (27.0 - 33.0 picogram) 30.6 MCHC (33.0 - 36.0 gram/dL) 32.6 L RDW (11.6 - 16.2 %) 13.2 Plt Count (150 - 450 K/mm3) 302 MPV (6.7 - 11.0 fL) 10.1 Recent Impressions: RADIOLOGY - XR CHEST 1 V 06/22 2058 Report Impression - Status: SIGNED Entered: 06/23/20232110 IMPRESSION: No acute abnormality. Impression By: [email or web address] Maria Del Carmen Graham M.D. Lab Imaging Statement Laboratory radiographic studies reviewed and considered in the medical decision-making. ECG #1 Interpretation Text/Dict Note 2019, rate of 89, sinus rhythm, LVH, normal intervals, no ST elevation Re-Evaluation MDM Re-Evaluation/Progress #1 Chest Pain MDM Note The patient is resting comfortably and feels better, is alert and in no distress. The repeat examination is unremarkable and benign. The electrocardiogram shows no signs of acute ischemia and the history, exam, diagnostic testing and current condition do not suggest that this patient is having an acute myocardial infarction, significant arrhythmia, unstable angina, esophageal perforation, pulmonary embolism, aortic dissection, pneumothorax, severe pneumonia, sepsis or other significant pathology that would warrant further testing, continued ED treatment, admission, or cardiology or other specialist consultation at this point. The vital signs have been stable. The patient's condition is stable and appropriate for discharge. The patient will pursue further outpatient evaluation with the primary care physician, other designated physician or winding department supervisor. The patient and/or caregivers have expressed a clear and thorough understanding and agree to follow up as instructed. ED Course Medication(s) Ordered Medication(s) Ordered: Central Nervous System Agents Sig/José Miguel Start time Last Medication Dose Route Stop Time Status Admin Aspirin 324 MG X1ED STA 06/22 2038 DC 06/22 PO 06/22 Differential Diagnosis )( Differential Diagnosis Acute coronary syndrome, Acute myocardial infarct, Anxiety disorder, Aortic dissection, Aortic stenosis, Asthma exacerbation, Bronchitis, Chest pain, Chest pain, acute, Cholecystitis, Cholelithiasis, Congestive heart failure, Contusion, Costochondritis, Dysrhythmia, Esophageal rupture, Esophagitis, Gastritis, GERD, Gun shot wound chest, Hiatal hernia, Hypertroph cardiomyopathy, Smitha-Lynn syndrome, Mitral stenosis, Mitral valve prolapse, Musculoskeletal pain, Myocardial infarction, Myocarditis, Peptic ulcer disease, Pericarditis, Pleurisy, Pneumomediastinum, Pneumonia, Pneumothorax, Pulmonary edema, Pulmonary embolism, Rib fracture, Stab wound chest, Stable angina, Unstable angina Patient Discharge Departure Vital Signs/Condition Vital Signs First Documented: Result Date Time Pulse Ox 97 06/22 2012 B/P 119/75 06/22 2012 B/P Mean 89 06/22 2012 O2 Delivery Room air 06/22 2012 Temp 37.0 06/22 2012 Pulse 77 06/22 2012 Resp 18 06/22 2012 Last Documented: Result Date Time Pulse Ox 97 06/22 2012 B/P 119/75 06/22 2012 B/P Mean 89 06/22 2012 O2 Delivery Room air 06/22 2012 Temp 37.0 06/22 2012 Pulse 77 06/22 2012 Resp 18 06/22 2012 All vital signs available at the time of this entry have been reviewed. Clinical Impression Clinical Impression Primary Impression: Chest pain Disposition Decision Discharge )( Discharged to Home Yes )( Time 2333 )( Date 06/23/23 Discharge/Care Plan Patient Instructions ED Chest Pain, Uncertain Cause Referrals Provider Referral: Sj Arthur MD Address: [address] [place] [address] at 1637 RPT #:[id number] END OF REPORT [facility] 2023-06-23 20:19:00 [id number] [facility] PATIENT NAME: TANNER BENDER ADMIT DATE: 06/23/23 ACCOUNT NO: [id number] ROOM NO: AGE: 37 REPORT TYPE: eEKG REPORT SEX: M DATE OF : [birth year] ADMITTING PHYSICIAN: ATTENDING PHYSICIAN: Order: [id number] Test Reason : Test Date/Time Stamp: FriJun 23 2023 20:19:01 Blood Pressure : / mmHG Vent. Rate : 089 BPM Atrial Rate : 089 BPM P-R Int : 118 ms QRS Dur : 092 ms QT Int : 336 ms P-R-T Axes : 089 089 060 degrees QTc Int : 408 ms Normal sinus rhythm Right atrial enlargement Voltage criteria for left ventricular hypertrophy Abnormal ECG Confirmed by GIOVANI BENSON, ESTRELLITA ([id number]) on 06/24/2023 10:04:59 PM Referred By: Michele Rowe Confirmed by:ESTRELLITA MATUTE MD at 2204 PATIENT NAME: TANNER BENDER [facility] 2023-06-17 12:22:00 [facility] ([facility]) EMERGENCY PROVIDER REPORT REPORT#:[id number] REPORT STATUS: Signed DATE:06/17/23 TIME: 1222 PATIENT: TANNER BENDER UNIT #: [id number] ROOM/BED: AGE: 37 SEX: M PCP PHYS: Robin Fernandez MD SERVICE AUTHOR: Tha Grant DO * ALL edits or amendments must be made on the electronic/computer document * HPI-Chest Pain 40 and Over General Initial Greet Date/Time 06/17/23 1209 Presentation Chief Complaint Chest pain Sudden in Onset? Yes )( Migration/Movement None Exacerbated by Nothing Relieved by Nothing Risk-Chest Pain 40 and Over Risk Stratification )( Coronary Artery Disease Risk factors reviewed )( Thoracic Aortic Dissection Risk factors reviewed )( Pulmonary Embolism Risk factors reviewed )( AMI-Aspirin Aspirin Last 24 Hrs 324 mg )( HEART for MACE )( HEART for MACE Response Value History High index of suspicion 2 ECG Interpretation Nonspec repol disturb 1 Age Age under 45 0 Risk Factors for CAD No risk factors known 0 Total 3 Review of Systems ROS Statements All systems rev neg except as marked. Focused Review of Systems Constitutional Denies: Chills, Fatigue, Fever, Lethargy, Malaise, Recent wt loss, Weakness - generalized. Respiratory Reports: Dyspnea on exertion, Shortness of breath. Denies: Hemoptysis, Wheezing. Cardiovascular Reports: Chest pain, Dyspnea on exertion. Denies: Edema, Orthopnea, Parox nocturnal dyspnea, Syncope. GI Denies: Abdominal pain, Anorexia, Nausea, Vomiting. Musculoskeletal Denies: Back pain, Extremity pain, Extremity swelling, Joint swelling. Skin Denies: Abrasion, Rash, Swelling. Past Medical History - Adult Stated Complaint CHEST PAIN Allergies Coded Allergies: Penicillins (Severe, THROAT SWELLS UP 12/24/21) Home Medications Reported Medications ALPRAZolam (XANAX) 2 MG PO TID PRN ANXIETY HYDROmorphone (DILAUDID) 2 MG PO Q4H PRN PRN PAIN SCALE 7-10 AMYLASE/LIPASE/PROTEA 120,000/24,000/76,000 U (CREON 24) 24,000 UNITS PO TID MEALS ALBUTEROL (PROAIR DIGIHALER 90 MCG/ACT 0.65 GM) 2 PUFF INH RTQ6H Past Medical History: Reports: Asthma, Pancreatitis. Additional Medical History Pancreatitis Past Surgical History: Denies: Abdominal surgery. Additional Family History n/c Alcohol Use Denies EtOH use Drug Use Denies recreational drugs Smoking status for patients 13 years old or older: Never Smoker Other Social History Primary family support Additional Social History family hx- unknown Physical Exam Vital Signs Vital Signs First Documented: Result Date Time Pulse Ox 99 03/ 1206 B/P 129/86 03/05 1206 B/P Mean 100 03/05 1206 O2 Delivery Room air 03/ 1206 Temp 98.4 03/ 1206 Pulse 78 03/05 1206 Resp 16 03/05 1206 Last Documented: Result Date Time Pulse Ox 98 03/05 1400 B/P 128/78 03/05 1400 B/P Mean 99 03/05 1400 Pulse 43 03/05 1400 Resp 17 03/05 1400 O2 Delivery Room air 03/05 1206 Temp 98.4 03/05 1206 Review of Vital Signs Reviewed Focused PE General/Const Text/Dict Notes Anxious appearing, diaphoretic, short of breath and moderate distress. Eyes Eyes Atraumatic, PERRL, EOMI, No scleral icterus MS Neck Neck Atraumatic, Supple, No meningismus, Full range of motion Resp/Chest Respiratory/Chest Atraumatic, Breath sounds NL, Breath sounds = bilat, No rhonchi Cardiovascular Cardiovascular Regular rhythm, Heart sounds NL, No gallop, No rubs, Cap refill not delayed, Peripheral circulation NL Heart Rate/Rhythm Bradycardia. Abdomen/GI Abdomen/GI Atraumatic, Soft, Non-tender, BS normoactive, No distention MS Back Back Atraumatic, Inspection NL, Full range of motion, Painless range of motion MS Lower Extrem Lower Ext/Pelvis/MS Atraumatic, Inspection NL, Full range of motion, No swelling Skin Text/Dict Notes Diaphoretic and pale appearing Neurologic Text/Dict Notes Questionable weakness right lower extremity Psychiatric Text/Dict Notes Anxious Interpretation Diagnostics Lab Results Interpretation Results Laboratory Tests 06/17/23 1235: [Embedded Image Not Available] Laboratory Tests: 06/16 06/16 06/16 1329 1235 1235 Chemistry Sodium (136 - 145 mmol/L) 138 Potassium (3.5 - 5.1 mmol/L) 4.1 Chloride (98 - 107 mmol/L) 106.0 Carbon Dioxide (21 - 32 mmol/L) 27.0 Anion Gap (10 - 20) 9.1 L BUN (7 - 18 mg/dL) 8 Creatinine (0.7 - 1.3 mg/dL) 1.00 Glomerular Filtr Rate (>=60 mL/min) > 60 BUN/Creatinine Ratio (10 - 20) 8.2 L Glucose (74 - 106 mg/dL) 113 H Calcium (8.5 - 10.1 mg/dL) 8.9 Magnesium (1.8 - 2.4 mg/dL) 1.9 Total Bilirubin (0.0 - 1.0 mg/dL) 0.50 Direct Bilirubin (0.0 - 0.20 mg/dL) 0.20 AST (15 - 37 IUnit/L) 18 ALT (12 - 78 IUnit/L) 15 Total Alk Phosphatase (45 - 117 IUnit/L) 61 Total Creatine Kinase (26 - 208 IUnit/L) 132 CK-MB (CK-2) (0 - 6.0 ng/mL) 1.1 CK-MB (CK-2) Rel Index (0.00 - 2.50 %) 0.83 Troponin I (0 - 54 pg/mL) <4.0 B-Natriuretic Peptide (0 - 100 pgram/mL) 38.2 Total Protein (6.4 - 8.2 gram/dL) 7.4 Albumin (3.4 - 5.0 g/dL) 4.1 Globulin (2.7 - 4.2 gram/dL) 3.3 Albumin/Globulin Ratio (0.75 - 1.50) 1.2 Lipase (12 - 57 U/L) 125 H Coagulation INR (0.8 - 1.2) 1.0 PTT (Velma) (26.6 - 37.3 seconds) 33.4 PT Patient/Control Mix (10.0 - 14.0 seconds) 11.3 D-Dimer (0 - 500 ng/mLFEU) 820 *H Hematology WBC (4.5 - 12.5 K/mm3) 8.3 RBC (4.0 - 5.8 mill/mm3) 4.37 Hgb (13.0 - 17.5 gram/dL) 13.6 Hct (42.0 - 52.0 %) 41.3 L MCV (80 - 98 fL) 94.5 MCH (27.0 - 33.0 picogram) 31.1 MCHC (33.0 - 36.0 gram/dL) 32.9 L RDW (11.6 - 16.2 %) 13.0 Plt Count (150 - 450 K/mm3) 271 MPV (6.7 - 11.0 fL) 10.1 Toxicology Urine Opiates Screen (<300 ng/mL) POSITIVE Urine Methadone Screen (<300 ng/mL) NEGATIVE Urine Barbiturates (<200 ng/mL) NEGATIVE Ur Phencyclidine Scrn (<25 ng/mL) NEGATIVE Ur Amphetamines Screen (<1000 ng/mL) NEGATIVE U Benzodiazepines Scrn (<200 ng/mL) POSITIVE Urine Cocaine Screen (<300 ng/mL) NEGATIVE Urine Cannabinoids (<50 ng/mL) POSITIVE Urines Urine Color (YELLOW) Light-Yellow Urine Appearance (CLEAR) CLEAR Urine pH (5.0 - 8.0) 5.5 Ur Specific [place] (1.001 - 1.035) 1.027 Urine Protein (NEGATIVE mg/dL) NEGATIVE Urine Glucose (UA) (NEGATIVE mg/dL) NEGATIVE Urine Ketones (NEGATIVE mg/dL) NEGATIVE Urine Blood (NEGATIVE mg/dL) Negative Urine Nitrite (NEGATIVE) NEGATIVE Urine Bilirubin (NEGATIVE mg/dL) NEGATIVE Urine Urobilinogen (NEGATIVE mg/dL) Normal Ur Leukocyte Esterase (NEGATIVE Sachin/uL) NEGATIVE Urine RBC (0 - 5 #/HPF) NONE SEEN Urine WBC (0 - 5 per HPF) 0-5 Ur Epithelial Cells (FEW per HPF) None seen Urine Bacteria (NONE #/HPF) NONE SEEN Urine Mucus (FEW #/LPF) FEW Recent Impressions: CAT SCAN - CT HEAD/BRAIN W/O CONT 06/16 1255 Report Impression - Status: SIGNED Entered: 06/17/2023 1322 IMPRESSION: No acute intracranial process. Location: [facility] Impression By: Ankit Perez MD CAT SCAN - CT ANGIO ABD PEL W CONT 06/16 1255 Report Impression - Status: SIGNED Entered: 06/17/2023 1330 IMPRESSION: Grossly normal CT scan of the chest, abdomen, and pelvis. Specifically the aorta is within normal limits with no dissection or aneurysm. Location: [facility] Impression By: Ankit Perez MD CAT SCAN - CTA CHEST 06/16 1255 Report Impression - Status: SIGNED Entered: 06/17/2023 1330 IMPRESSION: Grossly normal CT scan of the chest, abdomen, and pelvis. Specifically the aorta is within normal limits with no dissection or aneurysm. Location: [facility] Impression By: Ankit Perez MD Lab Imaging Statement Laboratory radiographic studies reviewed and considered in the medical decision-making. ECG #1 Interpretation Text/Dict Note EKG intro sinus bradycardia with a ventricular rate of 51. Normal axis. Voltage criteria for for LVH Re-Evaluation MDM Re-Evaluation/Progress #1 Text/Dict Note Patient feels a lot better with IV fluids and treatment so far. He does have a UTI. He discussed how he had a UTI last month as well he is got appointment With his urologist on the . Time of Re-Eval 1348 Re-Eval Status Improved ED Course Medication(s) Ordered Medication(s) Ordered: Cardiovascular Drugs Sig/José Miguel Start time Last Medication Dose Route Stop Time Status Admin Nitroglycerin 0.4 MG Q5M PRN PRN 06/16 1230 DCD SL Central Nervous System Agents Sig/José Miguel Start time Last Medication Dose Route Stop Time Status Admin Morphine Sulfate 4 MG X1ED STA 06/16 1319 DC 03/05 IV / 1320 1326 Aspirin 324 MG X1ED STA 06/16 1223 DC 03/05 PO 06/16 1224 1248 Morphine Sulfate 4 MG X1ED STA 06/16 1223 DC 03/05 IV / 1224 1248 Electrolytic, Caloric, And Sneha Sig/José Miguel Start time Last Medication Dose Route Stop Time Status Admin Sodium Chloride 1,000 ML X1ED STA 06/16 1223 DC 03/05 IV 06/16 1322 1248 Differential Diagnosis )( Differential Diagnosis Acute coronary syndrome, Acute myocardial infarct, Anxiety disorder, Aortic dissection, Chest pain, Chest pain, acute, Congestive heart failure, Contusion, Esophagitis, Hiatal hernia, Musculoskeletal pain, Pleurisy, Pneumomediastinum, Pneumonia Patient Discharge Departure Vital Signs/Condition Vital Signs First Documented: Result Date Time Pulse Ox 99 03 1206 B/P 129/86 03 1206 B/P Mean 100 06/16 1206 O2 Delivery Room air 03 1206 Temp 98.4 03 1206 Pulse 78 03 1206 Resp 16 06/16 1206 Last Documented: Result Date Time Pulse Ox 98 03 1400 B/P 128/78 03/ 1400 B/P Mean 99 / 1400 Pulse 43 03/ 1400 Resp 17 / 1400 O2 Delivery Room air 06/16 1206 Temp 98.4 06/16 1206 All vital signs available at the time of this entry have been reviewed. Clinical Impression Clinical Impression Primary Impression: Chest pain Secondary Impressions: Abnormal EKG Disposition Decision Discharge )( Discharged to Home Yes )( Time 1500 )( Date 06/17/23 Discharge/Care Plan Patient Instructions ED Chest Pain, Uncertain Cause at 2325 RPT #:[id number] END OF REPORT [facility] 2023-06-17 12:12:00 [id number] [facility] PATIENT NAME: TANNER BENDER ADMIT DATE: 06/17/23 ACCOUNT NO: [id number] ROOM NO: AGE: 37 REPORT TYPE: eEKG REPORT SEX: M DATE OF : 83 ADMITTING PHYSICIAN: ATTENDING PHYSICIAN: Order: [id number] Test Reason : Test Date/Time Stamp: FriJun 17 2023 12:12:38 Blood Pressure : / mmHG Vent. Rate : 059 BPM Atrial Rate : 059 BPM P-R Int : 112 ms QRS Dur : 092 ms QT Int : 388 ms P-R-T Axes : 015 085 062 degrees QTc Int : 384 ms Sinus bradycardia Moderate voltage criteria for LVH, may be normal variant ST elevation, consider anterolateral injury or acute infarct ST elevation, consider inferior injury or acute infarct ACUTE TN / STEMI Abnormal ECG When compared with ECG of 17-JUN-2023 12:06, No significant change was found Confirmed by STEVE RIVAS MD ([id number]) on 06/17/2023 7:36:21 PM Referred By: Self Referred Confirmed by:STEVE RIVAS MD PATIENT NAME: TANNER BENDER [facility] 2023-06-14 16:14:00 [facility] ([facility]) EMERGENCY PROVIDER REPORT REPORT#:[id number] REPORT STATUS: Signed DATE:06/14/23 TIME: 1614 PATIENT: TANNER BENDER UNIT #: [id number] ROOM/BED: AGE: 37 SEX: M PCP PHYS: Robin Fernandez MD SERVICE AUTHOR: Gt Smallwood MD * ALL edits or amendments must be made on the electronic/computer document * HPI-General Illness Free Text HPI Notes Free Text HPI Notes 1600 Look for patient for evaluation but was not found. General Initial Greet Date/Time 06/14/23 1600 Presentation Chief Complaint Unknown Review of Systems ROS Statements Unable to Obtain ROS Patient eloped Past Medical History - Adult Stated Complaint CP Allergies Coded Allergies: Penicillins (Severe, THROAT SWELLS UP 12/24/21) Home Medications Reported Medications ALPRAZolam (XANAX) 2 MG PO TID PRN ANXIETY HYDROmorphone (DILAUDID) 2 MG PO Q4H PRN PRN PAIN SCALE 7-10 AMYLASE/LIPASE/PROTEA 120,000/24,000/76,000 U (CREON 24) 24,000 UNITS PO TID MEALS ALBUTEROL (PROAIR DIGIHALER 90 MCG/ACT 0.65 GM) 2 PUFF INH RTQ6H Past Medical History: Reports: Asthma, Pancreatitis. Additional Medical History Pancreatitis Past Surgical History: Denies: Abdominal surgery. Additional Family History n/c Alcohol Use Denies EtOH use Drug Use Denies recreational drugs Smoking status for patients 13 years old or older: Former Smoker Other Social History Primary family support Additional Social History family hx- unknown Physical Exam Vital Signs Vital Signs First Documented: Result Date Time Pulse Ox 97 06/13 1528 B/P 130/73 06/13 1528 B/P Mean 92 06/13 1528 O2 Delivery Room air 06/13 1528 Temp 36.4 03/02 1528 Pulse 67 03/02 1528 Resp 19 03/ 1528 Last Documented: Result Date Time Pulse Ox 97 03/ 1528 B/P 130/73 03/02 1528 B/P Mean 92 03/02 1528 O2 Delivery Room air / 1528 Temp 36.4 03/02 1528 Pulse 67 03/02 1528 Resp 19 03/ 1528 Review of Vital Signs Reviewed Free Text PE Notes Free Text PE Notes Could not perform physical exam. Patient eloped before my evaluation. Interpretation Diagnostics ECG #1 Interpretation Text/Dict Note Normal sinus rhythm at 68 beats per minute, no axis deviation, no ST elevation, no acute ischemic changes, Early repolarization, normal segments. Date 06/14/23 Interpreted by and reviewed by me Re-Evaluation MDM Re-Evaluation/Progress #1 Text/Dict Note Patient search for evaluation in the ER but was not found. Time of Re-Eval 1650 Re-Eval Status Improved Re-Evaluation/Progress #2 Text/Dict Note Patient called in multiple occasions and did not answer. Patient searched in the emergency room and adjacent areas and not found. Patient eloped before evaluation. I did not had a chance to explore options, provide any guidance or counseling or make any type of follow-up arrangement. Time of Eval 174 Re-Eval Status Improved Patient Discharge Departure Vital Signs/Condition Vital Signs First Documented: Result Date Time Pulse Ox 97 06/13 1528 B/P 130/73 03/ 1528 B/P Mean 92 03/ 1528 O2 Delivery Room air / 1528 Temp 36.4 03/ 1528 Pulse 67 03/ 1528 Resp 19 03/ 1528 Last Documented: Result Date Time Pulse Ox 97 06/13 1528 B/P 130/73 03/ 1528 B/P Mean 92 03/02 1528 O2 Delivery Room air 03/ 1528 Temp 36.4 03/ 1528 Pulse 67 03/02 1528 Resp 19 03/ 1528 All vital signs available at the time of this entry have been reviewed. Condition Unknown Clinical Impression Clinical Impression Primary Impression: Eloped from emergency department Disposition Decision Other )( Time 174 )( Date 06/14/23 Left Prior to MSE Yes Elopement Note Elopement Note This patient has left the emergency department or waiting room with no communication to myself, nursing or administrative staff. There was no opportunity to discuss the patient's decision to leave, provide medical advice or discuss alternatives to leaving. The staff has made efforts to locate the patient without success. at 0159 RPT #:[id number] END OF REPORT [facility] 2023-05-13 22:12:00 [facility] ([facility]) EMERGENCY PROVIDER REPORT REPORT#:[id number] REPORT STATUS: Signed DATE:05/13/23 TIME: 2211 PATIENT: TANNER BENDER UNIT #: [id number] ROOM/BED: AGE: 37 SEX: M PCP PHYS: Fani Gibson MD SERVICE AUTHOR: Madi Clark MD * ALL edits or amendments must be made on the electronic/computer document * HPI-Chest Pain Under 40 General Initial Greet Date/Time 05/13/232206 Presentation Chief Complaint Chest pain Hx Obtained From Patient Sudden in Onset? No Onset Occurred Today Symptom Duration Since onset, Constant Progression since Onset Gradually worsening Location Chest L Quality Pressure Radiation Does not radiate. )( Migration/Movement None Associated with Reports: Shortness of breath. Denies: Dizziness, Fatigue, Fever, Insomnia, Lightheaded, Nausea, Near-syncope, Numbness/tingling, Palpitations, Recent viral symptoms. Exacerbated by Nothing Relieved by Nothing Free Text HPI Notes Free Text HPI Notes Patient is a 37-year-old male with no significant past medical history presenting with a chief complaint of left-sided chest pain since this morning. Patient reports the pain has been constant and is nonradiating. He reports shortness of breath associated with it. He denies any fever, sweating, dizziness, near syncope. He further denies any lower extremity swelling/calf pain. Patient endorses that he has had pain like this in the past and had a cath recently that was normal. Patient denies any drug use. He denies any exacerbating or relieving factors. Risk-Chest Pain Under 40 Risk Stratification )( Coronary Artery Disease Risk factors reviewed )( Pulmonary Embolism Risk factors reviewed )( AMI-Aspirin Aspirin Last 24 Hrs On arrival )( HEART for MACE )( HEART for MACE Response Value History Mod index of suspicion 1 ECG Interpretation Nonspec repol disturb 1 Age Age under 45 0 Risk Factors for CAD No risk factors known 0 Troponin < or = to NL troponin 0 Total 2 Review of Systems ROS Statements All systems rev neg except as marked. Focused Review of Systems Constitutional Denies: Chills, Fever, Lethargy. Respiratory Denies: Cough, non-productive, Cough, productive, Shortness of breath. GI Denies: Abdominal pain, Diarrhea, Nausea, Vomiting. Musculoskeletal Denies: Back pain, Extremity pain. Skin Denies: Diaphoresis, Rash. Neurologic Denies: Change LOC, Dizziness, Focal weakness, Headache, Numbness, Slurred speech. Psychiatric Denies: Anxiety, Depression. Past Medical History - Adult Stated Complaint CHEST PAIN Allergies Coded Allergies: Penicillins (Severe, THROAT SWELLS UP 12/24/21) Home Medications Reported Medications ALPRAZolam (XANAX) 2 MG PO TID PRN ANXIETY HYDROmorphone (DILAUDID) 2 MG PO Q4H PRN PRN PAIN SCALE 7-10 AMYLASE/LIPASE/PROTEA 120,000/24,000/76,000 U (CREON 24) 24,000 UNITS PO TID MEALS ALBUTEROL (PROAIR DIGIHALER 90 MCG/ACT 0.65 GM) 2 PUFF INH RTQ6H Past Medical History: Reports: Asthma, Pancreatitis. Additional Medical History Pancreatitis Past Surgical History: Denies: Abdominal surgery. Additional Family History n/c Alcohol Use Denies EtOH use Drug Use Denies recreational drugs Other Social History Primary family support Additional Social History family hx- unknown Physical Exam Vital Signs Vital Signs First Documented: Result Date Time Pulse Ox 97 05/13 2204 B/P 141/83 05/13 2204 B/P Mean 102 05/13 2204 O2 Delivery Room air 05/13 2204 Temp 36.7 05/13 2204 Pulse 76 05/13 2204 Resp 05/13 Last Documented: Result Date Time Pulse Ox 97 05/13 2204 B/P 141/83 05/13 2204 B/P Mean 102 05/13 2204 O2 Delivery Room air 05/13 2204 Temp 36.7 05/13 2204 Pulse 76 05/13 2204 Resp 18 05/13 2204 Review of Vital Signs Reviewed Focused PE General/Const General/Const Awake, Alert, Well appearing Eyes Eyes PERRL MS Neck Neck Supple, Full range of motion, No swelling, Non-tender, No masses, No JVD Resp/Chest Respiratory/Chest Breath sounds NL, Breath sounds = bilat, No respiratory distress, No rales, No rhonchi, No wheezing, No chest tenderness Cardiovascular Cardiovascular Heart rate NL, Regular rhythm, Heart sounds NL, No murmurs, Peripheral circulation NL, Pulses = bilaterally, No gross BP differential Abdomen/GI Abdomen/GI Soft, Non-tender, No guarding, No rebound MS Back Back Inspection NL, Non-tender, No CVA tenderness MS Lower Extrem Lower Ext/Pelvis/MS Inspection NL, No swelling, Non-tender, No erythema, No deformity, Neurologic intact, Vascular intact, No edema Skin Skin Color NL, Warm, Dry, Turgor NL Neurologic Neurologic Oriented X3, Speech NL, No motor deficits, No sensory deficits Psychiatric Psychiatric Affect NL, Mood NL, Thought content NL Interpretation Diagnostics Lab Results Interpretation Results Laboratory Tests 05/13/232223: [Embedded Image Not Available] Laboratory Tests: 05/13 2223 Chemistry Sodium (136 - 145 mmol/L) 139 Potassium (3.5 - 5.1 mmol/L) 4.0 Chloride (98 - 107 mmol/L) 104.0 Carbon Dioxide (21 - 32 mmol/L) 32.0 Anion Gap (10 - 20) 7.0 L BUN (7 - 18 mg/dL) 12 Creatinine (0.7 - 1.3 mg/dL) 1.10 Glomerular Filtr Rate (>=60 mL/min) > 60 BUN/Creatinine Ratio (10 - 20) 10.7 Glucose (74 - 106 mg/dL) 106 Calcium (8.5 - 10.1 mg/dL) 9.1 Troponin I (0 - 54 pg/mL) <4.0 Hematology WBC (4.5 - 12.5 K/mm3) 8.7 RBC (4.0 - 5.8 mill/mm3) 4.12 Hgb (13.0 - 17.5 gram/dL) 13.0 Hct (42.0 - 52.0 %) 39.4 L MCV (80 - 98 fL) 95.6 MCH (27.0 - 33.0 picogram) 31.6 MCHC (33.0 - 36.0 gram/dL) 33.0 RDW (11.6 - 16.2 %) 13.0 Plt Count (150 - 450 K/mm3) 313 MPV (6.7 - 11.0 fL) 10.0 Recent Impressions: RADIOLOGY - XR CHEST 1 V 05/13 2248 Report Impression - Status: SIGNED Entered: 05/13/2023 0090 IMPRESSION: No acute cardiopulmonary process. Location: Impression By: [facility] - Edu Witt M.D. ECG #1 Interpretation Text/Dict Note There is ST elevation in leads V4 and V5 however no reciprocal changes. Date 05/13/23 Time 2200 Interpreted by and reviewed by me, Independently interpreted, ED physician NL ECG Interpretation Normal rate, Normal sinus rhythm, No acute ischemic changes, No STEMI, No change from prior ECGs (03/12/23) Re-Evaluation MDM Free Text MDM Notes Free Text MDM Notes Differential Diagnosis Acute coronary syndrome, Acute myocardial infarct, Anxiety disorder, Aortic dissection, Chest pain, Chest pain, acute, Cholelithiasis, Congestive heart failure, Costochondritis, Dysrhythmia, Esophageal rupture, Esophagitis, Gastritis, GERD, Hiatal hernia, Musculoskeletal pain, Myocardial infarction, Myocarditis, Peptic ulcer disease, Pneumomediastinum, Pneumonia, Pneumothorax, Pulmonary edema, Pulmonary embolism, Stable angina, Unstable angina Re-Evaluation/Progress #1 Text/Dict Note Patient currently asleep in the ED lobby. He presents with chest pain and shortness of breath. I reviewed patient's previous records and it shows he has had multiple ED visits for similar complaints. He had a cardiac cath in January last year that was normal. Patient also had a cath in October of last year that was normal. Today EKG was done and shows no change from last ED visit. Lab work obtained, independently interpreted by me and shows no gross concerning findings. Troponin is negative. Given ongoing chest pain since this morning I do not feel repeat troponin is necessary. Chest x-ray also reviewed and shows no acute concerning findings. Given patient's history of chronic chest pain and evaluation by cardiology as recently as January, I do not feel patient requires further ED evaluation or admission to the hospital. I have advised the patient to follow-up with cardiology outpatient for further management of this chest pain. Time of Re-Eval 1 Re-Eval Status Improved ED Course Medication(s) Ordered Medication(s) Ordered: Cardiovascular Drugs Sig/José Miguel Start time Last Medication Dose Route Stop Time Status Admin Nitroglycerin 0.4 MG Q5M PRN PRN 05/13 2214 DCD 05/13 SL 2220 Central Nervous System Agents Sig/José Miguel Start time Last Medication Dose Route Stop Time Status Admin Aspirin 324 MG X1ED STA 05/13 2206 DC 05/13 PO 05/13 2207 222 Patient Discharge Departure Vital Signs/Condition Vital Signs First Documented: Result Date Time Pulse Ox 97 05/13 2204 B/P 141/83 05/13 2204 B/P Mean 102 05/13 2204 O2 Delivery Room air 05/13 2204 Temp 36.7 05/13 2204 Pulse 76 05/13 2204 Resp 18 05/13 2204 Last Documented: Result Date Time Pulse Ox 97 05/13 2204 B/P 141/83 05/13 2204 B/P Mean 102 05/13 2204 O2 Delivery Room air 05/13 2204 Temp 36.7 05/13 2204 Pulse 76 05/13 2204 Resp 05/13 All vital signs available at the time of this entry have been reviewed. Clinical Impression Clinical Impression Primary Impression: Chest pain Disposition Decision Discharge )( Discharged to Home Yes )( Time 2323 )( Date 05/13/23 Discharge/Care Plan Counseled Regarding Diagnosis, Lab results, Imaging studies, Need for follow-up, When to return to ED Patient Instructions ED Chest Pain, Uncertain Cause Referrals Provider Referral: Steve Caba MD Follow-Up: 2-3 Days Address: [address] [place] [address] [address] [place] [address] Quality Measures 12-Lead ECG for CP Performed documented at 2344 RPT #:[id number] END OF REPORT [facility] 2023-05-13 22:00:00 [id number] [facility] PATIENT NAME: TANNER BENDER ADMIT DATE: 05/13/23 ACCOUNT NO: [id number] ROOM NO: AGE: 37 REPORT TYPE: eEKG REPORT SEX: M DATE OF : 83 ADMITTING PHYSICIAN: ATTENDING PHYSICIAN: Order: [id number] Test Reason : Test Date/Time Stamp: FriMay 13 2023 22:00:59 Blood Pressure : / mmHG Vent. Rate : 076 BPM Atrial Rate : 076 BPM P-R Int : 108 ms QRS Dur : 090 ms QT Int : 362 ms P-R-T Axes : 032 084 062 degrees QTc Int : 407 ms Sinus rhythm with short OK Voltage criteria for left ventricular hypertrophy ST elevation, consider anterolateral injury or acute infarct ST elevation, consider inferior injury or acute infarct Abnormal ECG When compared with ECG of 13-MAY-2023 21:33, PREVIOUS ECG IS PRESENT Confirmed by Estrellita Dupree ([id number]) on 05/14/2023 8:09:25 AM Referred By: Self Referred Confirmed by:Estrellita Dupree at 0809 PATIENT NAME: TANNER BENDER [facility] 2023-03-12 21:16:00 [facility] ([facility]) EMERGENCY PROVIDER REPORT REPORT#:[id number] REPORT STATUS: Signed DATE:03/12/23 TIME: 2115 PATIENT: TANNER BENDER UNIT #: [id number] ROOM/BED: AGE: 37 SEX: M PCP PHYS: Fani Gibson MD SERVICE AUTHOR: Lelo Brand MD * ALL edits or amendments must be made on the electronic/computer document * HPI-Chest Pain Under 40 General Initial Greet Date/Time 03/12/232034 Presentation Chief Complaint Chest pain, Shortness of breath )( Migration/Movement None Free Text HPI Notes Free Text HPI Notes 37-year-old male with a past medical history of asthma and chronic pancreatitis who presents to the emergency department for a history of chest pain which was initially intermittent but today became constant. Described as left-sided, sharp, pressure, nonradiating. Chest pain associated with nausea and mild shortness of breath. Denies fever, chills, abdominal pain, vomiting, melena, hematochezia, dysuria, diarrhea, constipation, testicular pain or swelling. Risk-Chest Pain Under 40 Risk Stratification )( Coronary Artery Disease Risk factors reviewed, No risk factors )( Pulmonary Embolism Risk factors reviewed, No risk factors )( AMI-Aspirin Aspirin Last 24 Hrs None, 324 mg )( HEART for MACE )( HEART for MACE Response Value History Mod index of suspicion 1 ECG Interpretation Nonspec repol disturb 1 Age Age under 45 0 Risk Factors for CAD No risk factors known 0 Troponin < or = to NL troponin 0 Total 2 Review of Systems ROS Statements All systems rev neg except as marked. Focused Review of Systems Respiratory Reports: Shortness of breath. Cardiovascular Reports: Chest pain. Past Medical History - Adult Stated Complaint CHEST PAIN/SOB/NAUSEA INTERMITTENT X 4 DAYS Allergies Coded Allergies: Penicillins (Severe, THROAT SWELLS UP 12/24/21) Home Medications Reported Medications ALPRAZolam (XANAX) 2 MG PO TID PRN ANXIETY HYDROmorphone (DILAUDID) 2 MG PO Q4H PRN PRN PAIN SCALE 7-10 AMYLASE/LIPASE/PROTEA 120,000/24,000/76,000 U (CREON 24) 24,000 UNITS PO TID MEALS ALBUTEROL (PROAIR DIGIHALER 90 MCG/ACT 0.65 GM) 2 PUFF INH RTQ6H Past Medical History: Reports: Asthma, Pancreatitis. Additional Medical History Pancreatitis Past Surgical History: Denies: Abdominal surgery. Additional Family History n/c Alcohol Use Denies EtOH use Drug Use Denies recreational drugs Smoking status for patients 13 years old or older: Never Smoker Other Social History Primary family support Additional Social History family hx- unknown Physical Exam Vital Signs Vital Signs First Documented: Result Date Time Pulse Ox 99 03/12 2035 B/P 175/93 03/12 2035 B/P Mean 120 03/12 2035 O2 Delivery Room air 03/12 2035 Temp 36.8 03/12 2035 Pulse 66 03/12 2035 Resp 18 03/12 2035 Last Documented: Result Date Time Pulse Ox 98 03/12 2315 B/P 148/98 03/12 2315 B/P Mean 117 03/12 2315 Pulse 54 03/12 2315 Resp 10 03/12 2315 O2 Delivery Room air 03/12 2035 Temp 36.8 03/12 2035 Review of Vital Signs Reviewed, Vital signs normal Free Text PE Notes Free Text PE Notes General/Const Awake, Alert HENT Head atraumatic, normocephalic, ears/nose/throat airway patent, TMs clear bilaterally MS Neck Neck Supple, no swelling, no tenderness to palpation Resp/Chest CTAB, No respiratory distress, no rales, no rhonchi, no wheezing Cardiovascular Normal rate, regular rhythm, heart sounds. No rubs murmurs gallops Abdomen/GI Normal bowel sounds, soft, nontender, nondistended. No rebound or guarding MS noLower Ext/Pelvis/MS No swelling, Non-tender Skin Skin Warm, Dry, no abrasions, rashes, lacerations Neurologic Neurologic Oriented X3, Speech NL, no focal neuro deficits, CN 2-12 intact, 5 /5 strength, sensation intact Interpretation Diagnostics Lab Results Interpretation Results Laboratory Tests 03/12/232037: [Embedded Image Not Available] Laboratory Tests: 03/12 Chemistry Sodium (134 - 147 mEq/L) 140 Potassium (3.4 - 5.0 mEq/L) 4.6 Chloride (100 - 108 mEq/L) 106 Carbon Dioxide (21 - 33 mEq/l) 27 Anion Gap (0 - 20) 11 BUN (7 - 25 mg/dL) 12 Creatinine (0.6 - 1.3 mg/dL) 1.0 Glomerular Filtr Rate (105 - 110) 98.8 L Glucose (77 - 141 mg/dL) 81 Calcium (8.0 - 10.5 mg/dL) 9.1 Total Bilirubin (0.0 - 1.0 mg/dL) 0.40 AST (8 - 34 IUnit/L) 30 ALT (10 - 49 IUnit/L) 23 Total Alk Phosphatase (20 - 125 IUnit/L) 53 Troponin I High Sens (0 - 54 ng/L) 5 5 B-Natriuretic Peptide (0 - 100 PG/ML) 31.0 Total Protein (6.4 - 8.2 g/dL) 7.2 Albumin (3.4 - 5.0 g/dL) 4.00 Lipase (13 - 57 U/L) 67 H Hematology WBC (4.5 - 11.0 x10 3/uL) 10.7 RBC (4.00 - 5.60 x10 6/uL) 3.95 L Hgb (12.5 - 16.9 g/dL) 12.4 L Hct (37.5 - 50.7 %) 37.9 MCV (81.0 - 99.0 fL) 95.9 MCH (27.0 - 33.0 pg) 31.4 MCHC (33.0 - 37.0 g/dL) 32.7 L RDW (11.5 - 14.5 %) 12.9 Plt Count (150 - 400 x10 3/uL) 387 MPV (7.0 - 9.0 fL) 10.5 H Neut % (Auto) (56.0 - 77.0 %) 51.0 L Lymph % (Auto) (14.0 - 32.0 %) 36.5 H Randolph % (Auto) (4.8 - 9.0 %) 7.9 Eos % (Auto) (0.3 - 3.7 %) 3.4 Baso % (Auto) (0.0 - 2.0 %) 0.9 Neut # (Auto) (2.0 - 7.6 x10 3/uL) 5.45 Lymph # (Auto) (1.0 - 3.8 x10 3/uL) 3.89 H Randolph # (Auto) (0.1 - 0.8 x10 3/uL) 0.84 H Eos # (Auto) (0.0 - 0.2 x10 3/uL) 0.36 H Baso # (Auto) (0.0 - 0.2 x10 3/uL) 0.10 Abs Immat Gran (auto) (0.00 - 0.03 x10 3/uL) 0.03 Immature Gran % (0.0 - 2.0 %) 0.3 Nucleated RBC % (0 - 0 %) 0.0 Nucleated RBCs # (Man) (0.0 - 0.1 x10 3/uL) 0.00 Recent Impressions: RADIOLOGY - XR CHEST 1 V 03/12 2051 Report Impression - Status: SIGNED Entered: 03/12/20232122 IMPRESSION: No evidence of acute cardiopulmonary disease. Impression By: Bhavin Arthur M.D. Lab Imaging Statement Laboratory radiographic studies reviewed and considered in the medical decision-making. ECG #1 Interpretation Text/Dict Note 59 bpm sinus bradycardia showed ST elevations in V3 V4 V5 without any reciprocal changes. Date 03/12/23 Time 2035 Interpreted by and reviewed by me, ED physician, Print Inspector ECG #2 Interpretation Text/Dict Note 55 bpm sinus bradycardia showed ST elevations in V3 V4 V5 without any reciprocal changes. Date 03/12/23 Time 2205 Interpreted by and reviewed by me, ED physician, Print Inspector Re-Evaluation MDM ED Course Medication(s) Ordered Medication(s) Ordered: Autonomic Drugs Sig/José Miguel Start time Last Medication Dose Route Stop Time Status Admin Methocarbamol 1,000 MG X1ED STA 03/12 2209 DC 03/12 PO 03/12 2210 221 Cardiovascular Drugs Sig/José Miguel Start time Last Medication Dose Route Stop Time Status Admin Nitroglycerin 0.4 MG X1ED STA 03/12 2252 DC 03/12 SL 03/12 2253 225 Central Nervous System Agents Sig/José Miguel Start time Last Medication Dose Route Stop Time Status Admin Morphine Sulfate 4 MG X1ED STA 03/12 2348 CAN IV 03/12 2349 Aspirin 324 MG X1ED STA 03/12 2209 DC 03/12 PO 03/12 Ketorolac 30 MG X1ED STA 03/128 DC 03/12 Tromethamine IV 03/12 Consultation Consultation Referral/Consult Name Héctor Agustin MD Requested Call Time 2100 Requested Call Date 03/12/23 Call Returned Call returned Free Text Consult Notes EKG sent, no STEMI likely hyperacute T waves recommended getting 2 troponins and another EKG. Free Text MDM Notes Free Text MDM Notes 37-year-old male with a past medical history of asthma and chronic pancreatitis who presents to the emergency department for a history of chest pain which was initially intermittent but today became constant. Described as left-sided, sharp, pressure, nonradiating. Chest pain associated with nausea and mild shortness of breath. Denies fever, chills, abdominal pain, vomiting, melena, hematochezia, dysuria, diarrhea, constipation, testicular pain or swelling. Vital signs stable. Patient no reproducible chest wall tenderness to palpation. Labs show no significant abnormalities troponin x 2 negative. EKG initially showed ST elevation in V4 V5 and V6 concerning for STEMI I spoke with Dr. Agustin who stated that it appeared to be most likely hyperacute T waves however recommended that the patient be admitted for further evaluation, treatment and monitoring. Patient was given Toradol, aspirin, Robaxin and nitro still continued to have 9 out of 10 pain. Further chart review showed that patient has been here multiple times for similar symptoms he had a heart cath on February 03, 2023 that showed no acute findings after similar EKG findings. Also on chart review several documents from pain management stating drug-seeking behaviors etc. At this time I went to speak with the patient and he stated that he is continuing to having pain and we are not doing anything for him. I explained to him that it was concerning that he was still having pain even though we had given him several medications for pain I told him that we were going to order a CTA of the chest and abdomen to rule out dissection and I was going to order him something for pain but I was not giving him any IV pain medicine. Patient then became upset stating that we are not doing anything for his pain and he might as well leave and follow-up outpatient. I still expressed my concern for his continued pain and my recommendation for him to be admitted for further evaluation and treatment. I also stated that he could be treated further for pain while inpatient as I would place a consult for pain management but he stated that he wanted to leave. Patient refused to sign discharge paperwork and refused to take his paperwork home, then stormed out of the emergency department. Patient Discharge Departure Vital Signs/Condition Vital Signs First Documented: Result Date Time Pulse Ox 99 03/12 2035 B/P 175/93 03/12 2035 B/P Mean 120 03/12 2035 O2 Delivery Room air 03/12 2035 Temp 36.8 03/12 2035 Pulse 66 03/12 2035 Resp 18 03/12 2035 Last Documented: Result Date Time Pulse Ox 98 03/12 2315 B/P 148/98 03/12 2315 B/P Mean 117 03/12 2315 Pulse 54 03/12 2315 Resp 10 03/12 2315 O2 Delivery Room air 03/12 2035 Temp 36.8 03/12 2035 All vital signs available at the time of this entry have been reviewed. Condition Stable Clinical Impression Clinical Impression Primary Impression: Chest pain Disposition Decision Discharge )( Discharged to Home Yes )( Time 2358 )( Date 03/12/23 Discharge/Care Plan Counseled Regarding Diagnosis, Lab results, Imaging studies, Need for admission Patient Instructions ED Chest Pain, Uncertain Cause Additional Instructions Follow-up with your primary care doctor. Will give cardiology follow-up Referrals Provider Referral: Héctor Agustin MD Address: [address] [place] [address] [address] [place] [address] Admit Note I have spoken with the patient and/or caregivers. I have explained the patient's condition, diagnoses and treatment plan based on the information available to me at this time. I have answered the patient's and/or caregiver's questions and addressed any concerns. The patient and/or caregivers have as good an understanding of the patient's diagnosis, condition and treatment plan as can be expected at this point. The patient has been stabilized within the capability of the emergency department. The patient will be transported for further care and management or will be moved to an observation or inpatient service. I have communicated with the staff or medical practitioner taking over this patient's care. at 0054 RPT #:[id number] END OF REPORT [facility] 2023-02-21 19:26:00 [phone] [place] [address] PATIENT NAME: TANNER BENDER ADMIT DATE: 02/06/23 ACCOUNT NO: [id number] ROOM NO: G.3305 AGE: 37 REPORT TYPE: 360 - QUERY RESPONSE DOCUMENT SEX: M ADMITTING PHYSICIAN:Emre Dickson MD ATTENDING PHYSICIAN:Emre Dickson MD Provider Query QUERY TEXT: Condition General 360MD Query related questions should be directed to: [phone] Please clarify the diagnosis of STEMI after study (STEMI confirmed, STEMI ruled out, unspecified, other more appropriate diagnosis) The patient's Clinical Indicators include: STEMI. see admit order, h and p chest pain with negative troponin. It would be appropriate to treat him like pricarditis with nonsteroidals, colchicine, Indocin. see cardiology consult normal coronary arteries. It is possible he has pericarditis. see cardiac cath Options provided: -- Respond - Create new note now -- Dismiss - Not applicable / Not valid -- Dismiss - Clinically unable to determine / Unknown -- Assign to another provider QUERY RESPONSE: Stemi ruled out Query created by: Cathy Salguero on 02/13/2023 12:06 PM at 1926 PATIENT NAME: TANNER BENDER [facility] 2023-02-14 11:11:00 [id number] [address] PATIENT NAME: TANNER BENDER ADMIT DATE: 02/06/23 ACCOUNT NO: [id number] ROOM NO: G.3305 AGE: 37 REPORT TYPE: 360 - QUERY RESPONSE DOCUMENT SEX: M ADMITTING PHYSICIAN:Emre Dickson MD ATTENDING PHYSICIAN:Emre Dickson MD Provider Query QUERY TEXT: Condition Nutritional Status 360MD Query related questions should be directed to: [phone] Based on your clinical judgment, please clarify the condition(s) that represent(s) the clinical indicators listed below. The patient's Clinical Indicators include: underweight, BMI 17.4. see nutritional assessment increased calorie intake, increase protein intake. see nutrition goal Options provided: -- Mild protein-calorie/protein-energy malnutrition, Please specify supporting clinical documentation for severity (e.g. BMI, serum albumin, total lymphocyte count, CD4+, etc.) as well as supporting conditions such as disorders that affect GI function, wasting disorders, or metabolic conditions. -- Moderate protein-calorie/protein-energy malnutrition, Please specify supporting clinical documentation for severity (e.g. BMI, serum albumin, total lymphocyte count, CD4+, etc.) as well as supporting conditions such as disorders that affect GI function, wasting disorders, or metabolic conditions. -- Severe protein-calorie/protein-energy malnutrition, Please specify supporting clinical documentation for severity (e.g. BMI, serum albumin, total lymphocyte count, CD4+, etc.) as well as supporting conditions such as disorders that affect GI function, wasting disorders, or metabolic conditions. -- Unspecified protein-calorie/protein-energy malnutrition -- Failure to thrive -- Weight Loss -- Underweight -- Other - I will add my own diagnosis -- Dismiss - Not applicable / Not valid -- Dismiss - Clinically unable to determine / Unknown -- Assign to another provider QUERY RESPONSE: The patient is underweight. Query created by: Cathy Salguero on 02/13/2023 12:11 PM at 1111 PATIENT NAME: TANNER BENDER [facility] 2023-02-07 08:31:00 [facility] ([facility]) Pain Management Consult Note REPORT#:[id number] REPORT STATUS: Signed REPORT INITIALIZATION DATE:02/07/23 TIME: 830 PATIENT: TANNER BENDER UNIT #: [id number] ROOM/BED: [place] [address] : 84 AGE: 37 SEX: M ATTEND: Emre Dickson MD ADM AUTHOR: Umair Thomas REPT SERVICE DT/TIME: 02/07/23830 * ALL edits or amendments must be made on the electronic/computer document * History of Present Illness Primary Care Physician: Attending Dr. Joseph Guo MD HPI: The patient seen and examined in ICU. He presented with chest pain. He was ruled out for TN. He had a prior heart cath with normal coronaries repeat cardiac catheterization was done 02/06/23 which showed normal coronaries. Patient states he has a history of chronic pain and uses Dilaudid as an outpatient. I reviewed [employer] for the last 2 years he is only received tramadol, Tylenol #3, Mason 5, Mason 10. He states he has a history of chronic abdominal pain due to history of pancreatitis. Currently does not have any signs or symptoms of pancreatitis. His lipase levels are normal at 37. His drug screen has been positive for benzodiazepines which she had a recent prescription of diazepam, and marijuana. 1 old drug screen did show cocaine 02/2020. Review of Systems Additional notes: 14 point ROS undertaken unremarkable except as noted in HPI, past medical and surgical history History Past History Past Medical History: Reports: Pancreatitis. Past family history: FATHER DAD HAD COLON CANCER FH: colon cancer MOTHER Family History: Cancer Family History: Diabetes BROTHER Relation not specified for: Family History: Unremarkable Medications: Home Medications: Medication Dose/Rte/Freq Days Qty Entered Last Max Daily Dose Reviewed ALPRAZolam (XANAX) 2 MG PO 07/13/22 02/07/23 Strength: 2 MG TAB TID PRN ANXIETY 2307 0016 HYDROmorphone (DILAUDID) 2 MG PO 11/11/22 02/07/23 Strength: 2 MG TAB Q4H PRN PRN PAIN 1341 0016 SCALE 7-10 AMYLASE/LIPASE/PROTEA 24,000 UNITS PO 02/02/23 02/07/23 120,000/24,000/76,000 U TID MEALS 1915 0016 (CREON 24) Strength: 24-76-120K CAP. ALBUTEROL 2 PUFF INH RTQ6H 11/11/22 02/07/23 (PROAIR DIGIHALER 90 1017 0016 MCG/ACT 0.65 GM) Strength: 90 MCG INHALER Current Hospital Medications: Autonomic Drugs Sig/José Miguel Start time Last Medication Dose Route Stop Time Status Admin Atropine Sulfate 0.5 MG ASDIR PRN 02/07 15 DC (ATROPINE SULFATE IV 02/08 0011 0.1MG/ML SYR) Blood Formation,Coagulation Sig/José Miguel Start time Last Medication Dose Route Stop Time Status Admin Heparin Sodium 0 .STK-MED ONE 02/06 2319 DC 02/06 (HEPARIN SODIUM) .ROUTE 2338 Heparin Sodium/ 500 ML .STK-MED ONE 02/06 2319 DC 02/06 Sodium Chloride IV 2338 (HEPARIN 1,000 UNITS/ NS 500ML) Heparin Sodium/ 1,000 ML .STK-MED ONE 02/06 2318 DC 02/06 Sodium Chloride IV 2338 (HEPARIN 2,000 UNITS/ NS 1,000mL) Heparin Sodium 4,522 UNIT X1ED STA 02/066 DC 02/06 (HEPARIN 5000 UNITS/ IV 02/06 2257 2258 ML) Ticagrelor 180 MG X1ED STA 02/06 2255 DC 02/06 (BRILINTA) PO 02/06 225 2258 Cardiovascular Drugs Sig/José Miguel Start time Last Medication Dose Route Stop Time Status Admin Hydralazine HCl 10 MG Q6H PRN PRN 02/07 0415 AC (APRESOLINE) IV 05/08 0414 Clonidine HCl 0.1 MG Q6H PRN PRN 02/07 0015 DC (CATAPRES) PO 05/08 0014 Lidocaine HCl 0 .STK-MED ONE 02/06 2319 DC 02/06 (LIDOCAINE HCL/PF) .ROUTE 2338 Nitroglycerin/ 250 ML .STK-MED ONE 02/06 2319 DC 02/06 Dextrose IV 2338 (NITROGLYCERIN 50,000MCG/D5W 250ML) Central Nervous System Agents Sig/José Miguel Start time Last Medication Dose Route Stop Time Status Admin Hydromorphone HCl 2 MG ONCE ONE 02/07 1100 DC 02/07 (DILAUDID) PO 02/07 1101 1053 Acetaminophen 650 MG Q4H PRN PRN 02/07 0415 AC (TYLENOL) PO 05/08 0414 Hydrocodone Bitart/ 1 TAB Q6H PRN PRN 02/07 0415 AC Acetaminophen PO 02/12 0414 (NORCO 7.5/325 TABLET) Midazolam HCl 1 MG ONCE ONE 02/07 0100 DC 02/07 (VERSED) IV 02/07 0101 0053 Fentanyl Citrate 50 MCG ONCE PRN 02/07 0030 DC 02/07 (SUBLIMAZE) IV 0053 Morphine Sulfate 2 MG Q3H PRN PRN 02/07 0030 AC 02/07 (morphine SULFATE) IV 02/12 0029 1129 Fentanyl Citrate 0 .STK-MED ONE 02/07 2332 DC 02/06 (SUBLIMAZE) .ROUTE 2339 Midazolam HCl 0 .STK-MED ONE 02/06 233 DC 02/06 (VERSED) .ROUTE 233 Diagnostic Agents Sig/José Miguel Start time Last Medication Dose Route Stop Time Status Admin Iopamidol 0 .STK-MED ONE 02/06 2320 DC 02/06 (ISOVUE-370 100ML) IV 9 Electrolytic, Caloric, And Sneha Sig/José Miguel Start time Last Medication Dose Route Stop Time Status Admin Potassium Chloride 20 MEQ ONCE ONE 02/07 0830 DC 02/07 (POTASSIUM CHLORIDE PO 02/07 0831 0851 20MEQ TAB.ER) Sodium Chloride 1,000 ML .[id number] 02/07 0415 AC (SODIUM CHLORIDE IV 05/08 0414 0.9%) Sodium Chloride 1,000 ML .[id number] 02/07 0015 DC 02/07 (SODIUM CHLORIDE IV 02/07 1334 0037 0.9%) Sodium Chloride 500 ML ASDIR PRN 02/07 001 DC (SODIUM CHLORIDE IV 02/08 0011 0.9%) Gastrointestinal Drugs Sig/José Miguel Start time Last Medication Dose Route Stop Time Status Admin Senna/Docusate Sodium 1 TAB BID 9A 5P 02/07 0900 AC 02/07 (SENOKOT S) PO 05/08 0859 0851 Lipase/Protease/ 2 CAP C MEALS 02/07 0800 AC 02/07 Amylase PO 05/08 0759 1130 (MISBAH JUSTIN) Docusate Sodium 100 MG BID PRN PRN 02/07 0415 AC (COLACE) PO 05/08 041 Ondansetron HCl 4 MG Q4H PRN PRN 02/07 0415 AC (ZOFRAN) IV 05/08 041 Ondansetron HCl 4 MG Q6H PRN PRN 02/07 0015 DC (ZOFRAN) IV 05/08 001 Allergies: Coded Allergies: Penicillins (Severe, THROAT SWELLS UP 12/24/21) Objective Physical Exam VS/I O: Last Documented: Result Date Time Pulse Ox 98 02/07 1200 B/P 119/72 02/07 1200 B/P Mean 91 02/07 1200 Pulse 46 02/07 1200 Resp 16 02/07 1200 O2 Delivery Room air 02/07 0959 Temp 36.6 02/07 0545 FiO2 21 02/07 0022 24 hour I O ending at 0700: 02/07 0700 02/06 1900 Intake Total 800.00 Output Total 700 Balance 100.00 Intake, IV 800.00 Output, Urine 700 Patient 58.2 kg Weight Weight Bed scale Measurement Method PATIENT WEIGHT: Weight (lb): 128 Weight (oz): 4.94 Weight (kg): 58.200 General appearance: alert, awake, oriented Head/eyes: atraumatic, EOMI, normocephalic, normal conjunctiva/sclera, PERRLA ENT: normal pharynx, moist mucosal membranes Cardiovascular: regular rate rhythm Respiratory: clear to auscultation, no distress Abdomen: soft, non-tender, no distention, active bowel sounds in all quadrant. Extremities: moves all, no edema Neuro/BOBBIN DISKER: no motor deficits, no sensory deficits, CNII-XII grossly intact Skin: multiple dark green tottoos Results Findings/data: Laboratory Tests: 02/07 02/07 02/07 02/07 0930 0443 0412 0024 Chemistry Sodium (134 - 147 mEq/L) 140 Potassium (3.4 - 5.0 mEq/L) 3.9 Chloride (100 - 108 mEq/L) 107 Carbon Dioxide (21 - 33 mEq/l) 29 Anion Gap (0 - 20) 8 BUN (7 - 25 mg/dL) 9 Creatinine (0.6 - 1.3 mg/dL) 0.8 Glomerular Filtr Rate (105 - 110) 116.2 H Glucose (77 - 141 mg/dL) 90 Hemoglobin A1c (4.8 - 6.0 %A1C) 5.3 Calcium (8.0 - 10.5 mg/dL) 8.2 Magnesium (1.6 - 2.6 mg/dL) 2.36 Troponin I High Sens (0 - 54 ng/L) 5 4 Lipase (13 - 57 U/L) 37 63 H TSH (0.42 - 5.47 IU/mL) 4.60 Coagulation INR (0.8 - 1.2) 1.0 PTT (Velma) (25.0 - 39.5 Seconds) 35.0 PT Patient/Control Mix (9.3 - 12.9 SECONDS) 11.4 Hematology WBC (4.5 - 11.0 x10 3/uL) 7.5 RBC (4.00 - 5.60 x10 6/uL) 4.27 Hgb (12.5 - 16.9 g/dL) 13.4 Hct (37.5 - 50.7 %) 40.6 MCV (81.0 - 99.0 fL) 95.1 MCH (27.0 - 33.0 pg) 31.4 MCHC (33.0 - 37.0 g/dL) 33.0 RDW (11.5 - 14.5 %) 12.7 Plt Count (150 - 400 x10 3/uL) 303 MPV (7.0 - 9.0 fL) 10.0 H Neut % (Auto) (56.0 - 77.0 %) 47.0 L Lymph % (Auto) (14.0 - 32.0 %) 39.6 H Randolph % (Auto) (4.8 - 9.0 %) 9.0 Eos % (Auto) (0.3 - 3.7 %) 2.9 Baso % (Auto) (0.0 - 2.0 %) 1.2 Neut # (Auto) (2.0 - 7.6 x10 3/uL) 3.53 Lymph # (Auto) (1.0 - 3.8 x10 3/uL) 2.98 Randolph # (Auto) (0.1 - 0.8 x10 3/uL) 0.68 Eos # (Auto) (0.0 - 0.2 x10 3/uL) 0.22 H Baso # (Auto) (0.0 - 0.2 x10 3/uL) 0.09 Abs Immat Gran (auto) (0.00 - 0.03 0.02 x10 3/uL) Immature Gran % (0.0 - 2.0 %) 0.3 Nucleated RBC % (0 - 0 %) 0.0 Nucleated RBCs # (Man) (0.0 - 0.1 x10 3/uL) 0.00 ESR Westergren (0 - 15 mm/hr) 3 Toxicology Urine Opiates Screen (NEGATIVE) POSITIVE H Urine Barbiturates (NEGATIVE) NEGATIVE Ur Phencyclidine Scrn (NEGATIVE) NEGATIVE Ur Amphetamines Screen (NEGATIVE) NEGATIVE U Benzodiazepines Scrn (NEGATIVE) POSITIVE H Urine Cocaine Screen (NEGATIVE) NEGATIVE Urine Cannabinoids (NEGATIVE) POSITIVE H 02/06 02/06 2340 2255 Chemistry Sodium (134 - 147 mEq/L) 140 Potassium (3.4 - 5.0 mEq/L) 3.8 Chloride (100 - 108 mEq/L) 104 Carbon Dioxide (21 - 33 mEq/l) 31 Anion Gap (0 - 20) 8 BUN (7 - 25 mg/dL) 10 Creatinine (0.6 - 1.3 mg/dL) 1.1 Glomerular Filtr Rate (105 - 110) 88.1 L Glucose (77 - 141 mg/dL) 47 L Calcium (8.0 - 10.5 mg/dL) 8.4 Magnesium (1.6 - 2.6 mg/dL) 2.46 Troponin I High Sens (0 - 54 ng/L) < 3 Coagulation Activated Coag Time (74 - 137 SEC) 197 H Hematology WBC (4.5 - 11.0 x10 3/uL) 11.2 H RBC (4.00 - 5.60 x10 6/uL) 4.21 Hgb (12.5 - 16.9 g/dL) 13.3 Hct (37.5 - 50.7 %) 40.1 MCV (81.0 - 99.0 fL) 95.2 MCH (27.0 - 33.0 pg) 31.6 MCHC (33.0 - 37.0 g/dL) 33.2 RDW (11.5 - 14.5 %) 12.8 Plt Count (150 - 400 x10 3/uL) 322 MPV (7.0 - 9.0 fL) 9.7 H Neut % (Auto) (56.0 - 77.0 %) 53.3 L Lymph % (Auto) (14.0 - 32.0 %) 34.8 H Randolph % (Auto) (4.8 - 9.0 %) 7.8 Eos % (Auto) (0.3 - 3.7 %) 2.8 Baso % (Auto) (0.0 - 2.0 %) 1.0 Neut # (Auto) (2.0 - 7.6 x10 3/uL) 5.97 Lymph # (Auto) (1.0 - 3.8 x10 3/uL) 3.89 H Randolph # (Auto) (0.1 - 0.8 x10 3/uL) 0.87 H Eos # (Auto) (0.0 - 0.2 x10 3/uL) 0.31 H Baso # (Auto) (0.0 - 0.2 x10 3/uL) 0.11 Abs Immat Gran (auto) (0.00 - 0.03 x10 3/uL) 0.03 Add Manual Diff NO Immature Gran % (0.0 - 2.0 %) 0.3 Nucleated RBC % (0 - 0 %) 0.0 Nucleated RBCs # (Man) (0.0 - 0.1 x10 3/uL) 0.00 Microbiology: Date/Time Procedure - Status Source Growth 02/07 0024 MRSA DNA Surveillance Screen - COMP NASAL Recent Impressions: RADIOLOGY - XR CHEST 1 V 02/06 2257 Report Impression - Status: SIGNED Entered: 02/06/2023 2311 IMPRESSION: No radiographic evidence of acute cardiopulmonary process. Impression By: [email or web address] - Marbin Fish M.D. Diagnosis, Assessment Plan Free text A P: A/P: Patient is a 37-year-old male admitted in with chest pain Past Medical History: Asthma, history of pancreatitis Past Surgical History: Abdominal surgery, appendectomy, cholecystectomy Family History: Father with colon cancer. 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 He does use marijuana Allergies: No known drug allergies Narcotic seeking behavior -Patient stated he took Dilaudid at home for his chronic pain but then its not evident by AUTO ADJUDICATION SPECIALIST review. Abdominal pain He has had multiple work-ups in the past. Currently his lipase is normal -Patient has only been using IV morphine. He has been refusing oral Mason that is available Chest pain -He has had at least 2 cardiac caths recently normal coronaries Disposition: No narcotic prescriptions upon discharge. No need for follow-up in the office Okay to discharge from pain management once cleared by primary team Patient has failed conservative medical therapy. Patient will require monitoring while utilize narcotic medications for any adverse effects, and will adjust as needed Patient will require monitoring drug therapy for toxic effects Plan of care discussed with patient and nurse All diagnostics of last 24 hours been reviewed. Have reviewed other specialties notes. Risks versus benefits of opioid medications were reviewed to include, but not limited to respiratory depression, accidental overdose, altered mental status, sudden , constipation which could result in bowel obstruction, seizures, withdrawal, dependency addiction, risk for falls. Case discussed with Dr Polanco whom agrees. Thank you for the consultation. [place] AUTO ADJUDICATION SPECIALIST: Total Prescriptions 9 Total Private Pay 0 Total Prescribers 8 Total Pharmacies 2 02/03/2023 02/03/2023 3 DIAZEPAM 5 MG TABLET 10.00 2 [facility] [id number] [facility] (0157) 0 2.50 LME Comm Ins [place] 11/21/2022 11/21/2022 2 HYDROCODONE-ACETAMIN 5-325 MG 28.00 7 Da Pan [id number] [facility] (0157) 0 20.00 MME Work[place] Comp [place] 11/13/2022 11/13/2022 2 ACETAMINOPHEN-COD #3 TABLET 30.00 5 Da Pan [id number] [facility] ( 0157) 0 27.00 MME Comm Ins [place] 10/31/2022 10/30/2022 2 TRAMADOL HCL 50 MG TABLET 12.00 3 [facility] [id number] [facility] ( 0157) 0 40.00 MME Comm Ins [place] 10/05/2022 10/04/2022 2 TRAMADOL HCL 50 MG TABLET 20.00 5 [facility] [place] [id number] [facility] ( 0157) 0 40.00 MME Comm Ins [place] 09/27/2022 09/27/2022 2 ACETAMINOPHEN-COD #3 TABLET 15.00 2 [facility] [id number] [facility] ( 4733) 0 33.75 MME Comm Ins [place] [employer]. (0157) [address] [facility] [place] [address] [employer] (7735) 1488 [facility] [address] at 1320 at 1502 RPT #:[id number] END OF REPORT [facility] 2023-02-07 07:22:00 [facility] ([facility]) Cardiology Progress Note REPORT#:[id number] REPORT STATUS: Signed REPORT INITIALIZATION DATE:02/07/23 TIME: 721 PATIENT: TANNER BENDER UNIT #: [id number] ROOM/BED: [place] [address] : 84 AGE: 37 SEX: M ATTEND: Emre Dickson MD ADM AUTHOR: Marianne Garcia RUBBER GOODS INSPECTOR TESTER REPT SERVICE DT/TIME: 02/07/23721 * ALL edits or amendments must be made on the electronic/computer document * Marianne Garcia 02/07/23721: Subjective Chief complaint: c/o abdomial pain, left sided chest pain Objective General VS/I O: 24 hour I O ending at 0700: 02/07 0700 02/06 1900 Intake Total 800.00 Output Total 700 Balance 100.00 Intake, IV 800.00 Output, Urine 700 Patient 58.2 kg Weight Weight Bed scale Measurement Method Vital Signs: Date Time Temp Pulse Resp B/P B/P Pulse O2 O2 Flow FiO2 Mean Ox Delivery Rate 02/07 0600 48 19 112/71 87 99 02/07 0545 36.6 02/07 0542 50 18 115/73 87 98 02/07 0431 49 18 105/65 80 99 02/07 0400 57 13 143/93 111 100 02/07 0331 50 17 130/89 105 99 02/07 0300 49 18 114/75 90 98 02/07 0230 48 16 122/75 92 98 02/07 0200 47 16 119/72 90 98 02/07 0130 48 14 114/67 86 98 02/07 0120 45 18 114/70 84 98 02/07 0110 47 15 113/67 85 97 02/07 0103 47 14 120/74 91 97 02/07 0102 47 15 116/72 89 98 02/07 0101 46 14 116/73 88 99 02/07 0100 46 14 114/73 87 99 02/07 0059 45 14 117/73 90 99 02/07 0058 45 14 118/74 91 100 02/07 0057 45 16 125/80 97 100 02/07 0056 45 17 123/75 94 100 02/07 0045 47 16 118/71 88 100 02/07 0030 47 27 117/65 84 99 02/07 0022 99 Room air 21 02/07 0019 47 21 110/74 88 100 02/07 0017 36.3 Room air 02/06 2320 60 12 100 02/06 2315 62 28 125/82 97 100 02/06 2300 57 16 123/85 97 100 02/06 2248 62 20 121/81 94 100 Room air PATIENT WEIGHT: Weight (lb): 128 Weight (oz): 4.94 Weight (kg): 58.200 Medications: Active Meds + DC'd Last 24 Hrs Lipase/Protease/Amylase (MISBAH JUSTIN) 2 CAP C MEALS PO Acetaminophen (TYLENOL) 650 MG Q4H PRN PRN PO Docusate Sodium (COLACE) 100 MG BID PRN PRN PO Hydralazine HCl (APRESOLINE) 10 MG Q6H PRN PRN IV Hydrocodone Bitart/Acetaminophen (NORCO 7.5/325 TABLET) 1 TAB Q6H PRN PRN PO Ondansetron HCl (ZOFRAN) 4 MG Q4H PRN PRN IV Sodium Chloride (SODIUM CHLORIDE 0.9%) 1,000 ML .[id number] IV Midazolam HCl (VERSED) 1 MG ONCE ONE IV (DC) Fentanyl Citrate (SUBLIMAZE) 50 MCG ONCE PRN IV (DC) Morphine Sulfate (morphine SULFATE) 2 MG Q3H PRN PRN IV Atropine Sulfate (ATROPINE SULFATE 0.1MG/ML SYR) 0.5 MG ASDIR PRN IV Clonidine HCl (CATAPRES) 0.1 MG Q6H PRN PRN PO Ondansetron HCl (ZOFRAN) 4 MG Q6H PRN PRN IV (DC) Sodium Chloride (SODIUM CHLORIDE 0.9%) 1,000 ML .[id number] IV Sodium Chloride (SODIUM CHLORIDE 0.9%) 500 ML ASDIR PRN IV Fentanyl Citrate (SUBLIMAZE) 0 .STK-MED ONE .ROUTE (DC) Midazolam HCl (VERSED) 0 .STK-MED ONE .ROUTE (DC) Iopamidol (ISOVUE-370 100ML) 0 .STK-MED ONE IV (DC) Heparin Sodium (HEPARIN SODIUM) 0 .STK-MED ONE .ROUTE (DC) Heparin Sodium/Sodium Chloride (HEPARIN 1,000 UNITS/NS 500ML) 500 ML .STK- MED ONE IV (DC) Lidocaine HCl (LIDOCAINE HCL/PF) 0 .STK-MED ONE .ROUTE (DC) Nitroglycerin/Dextrose (NITROGLYCERIN 50,000MCG/D5W 250ML) 250 ML .STK-MED ONE IV (DC) Heparin Sodium/Sodium Chloride (HEPARIN 2,000 UNITS/NS 1,000mL) 1,000 ML .STK-MED ONE IV (DC) Heparin Sodium (HEPARIN 5000 UNITS/ML) 4,522 UNIT X1ED STA IV (DC) Ticagrelor (BRILINTA) 180 MG X1ED STA PO (DC) Physical Exam General appearance: alert, awake, oriented Head/Eyes: atraumatic ENT: moist mucosal membranes Neck: no bruit/NL carotids, no JVD Cardiovascular: CV assessment: regular rate and rhythm, normal heart sounds Respiratory: clear to auscultation, no distress Abdomen: soft Lower extremity: LE assessment: no edema Neuro/BOBBIN DISKER: alert, oriented X 3, normal speech Skin: dry, intact Psychiatry: normal affect Results Findings/Data: Laboratory Tests 02/07 02/07 02/07 02/06 0443 0412 0024 2255 Chemistry Sodium (134 - 147 mEq/L) 140 140 Potassium (3.4 - 5.0 mEq/L) 3.9 3.8 Chloride (100 - 108 mEq/L) 107 104 Carbon Dioxide (21 - 33 mEq/l) 29 31 Anion Gap (0 - 20) 8 8 BUN (7 - 25 mg/dL) 9 10 Creatinine (0.6 - 1.3 mg/dL) 0.8 1.1 Glomerular Filtr Rate (105 - 110) 116.2 H 88.1 L Glucose (77 - 141 mg/dL) 90 47 L Hemoglobin A1c (4.8 - 6.0 %A1C) 5.3 Calcium (8.0 - 10.5 mg/dL) 8.2 8.4 Magnesium (1.6 - 2.6 mg/dL) 2.36 2.46 Troponin I High Sens (0 - 54 ng/L) 5 4 < 3 Lipase (13 - 57 U/L) 37 63 H TSH (0.42 - 5.47 IU/mL) 4.60 Laboratory Tests 02/07 02/06 0024 2340 Coagulation INR (0.8 - 1.2) 1.0 PTT ([place]) (25.0 - 39.5 Seconds) 35.0 PT Patient/Control Mix (9.3 - 12.9 SECONDS) 11.4 Activated Coag Time (74 - 137 SEC) 197 H Laboratory Tests 02/072 4 2255 Hematology WBC (4.5 - 11.0 x10 3/uL) 7.5 11.2 H RBC (4.00 - 5.60 x10 6/uL) 4.27 4.21 Hgb (12.5 - 16.9 g/dL) 13.4 13.3 Hct (37.5 - 50.7 %) 40.6 40.1 MCV (81.0 - 99.0 fL) 95.1 95.2 MCH (27.0 - 33.0 pg) 31.4 31.6 MCHC (33.0 - 37.0 g/dL) 33.0 33.2 RDW (11.5 - 14.5 %) 12.7 12.8 Plt Count (150 - 400 x10 3/uL) 303 322 MPV (7.0 - 9.0 fL) 10.0 H 9.7 H Neut % (Auto) (56.0 - 77.0 %) 47.0 L 53.3 L Lymph % (Auto) (14.0 - 32.0 %) 39.6 H 34.8 H Randolph % (Auto) (4.8 - 9.0 %) 9.0 7.8 Eos % (Auto) (0.3 - 3.7 %) 2.9 2.8 Baso % (Auto) (0.0 - 2.0 %) 1.2 1.0 Neut # (Auto) (2.0 - 7.6 x10 3/uL) 3.53 5.97 Lymph # (Auto) (1.0 - 3.8 x10 3/uL) 2.98 3.89 H Randolph # (Auto) (0.1 - 0.8 x10 3/uL) 0.68 0.87 H Eos # (Auto) (0.0 - 0.2 x10 3/uL) 0.22 H 0.31 H Baso # (Auto) (0.0 - 0.2 x10 3/uL) 0.09 0.11 Abs Immat Gran (auto) (0.00 - 0.03 x10 3/uL) 0.02 0.03 Add Manual Diff NO Immature Gran % (0.0 - 2.0 %) 0.3 0.3 Nucleated RBC % (0 - 0 %) 0.0 0.0 Nucleated RBCs # (Man) (0.0 - 0.1 x10 3/uL) 0.00 0.00 ESR Westergren (0 - 15 mm/hr) 3 Laboratory Tests 02/07 0930 Toxicology Urine Opiates Screen (NEGATIVE) POSITIVE H Urine Barbiturates (NEGATIVE) NEGATIVE Ur Phencyclidine Scrn (NEGATIVE) NEGATIVE Ur Amphetamines Screen (NEGATIVE) NEGATIVE U Benzodiazepines Scrn (NEGATIVE) POSITIVE H Urine Cocaine Screen (NEGATIVE) NEGATIVE Urine Cannabinoids (NEGATIVE) POSITIVE H Microbiology Date/Time Procedure - Status Source Growth 02/07 0024 MRSA DNA Surveillance Screen - COMP NASAL Laboratory Tests 02/07 02/06 0412 2255 Chemistry Magnesium (1.6 - 2.6 mg/dL) 2.36 2.46 Radiology data: Recent Impressions: RADIOLOGY - XR CHEST 1 V 02/06 2257 Report Impression - Status: SIGNED Entered: 02/06/2023 2311 IMPRESSION: No radiographic evidence of acute cardiopulmonary process. Impression By: [email or web address] - Marbin Fish M.D. Diagnosis, Assessment Plan Hospital course to date: 11/11/22 EF 55-60% 11/11/22 [facility] no CAD Assessment/ Plan : S: Tanner is a 37-year-old gentleman transferred from [facility] for chest pain with nausea, shortness of breath,diaphoresis. EKG showed slight ST elevation in V3, V4 leads, and code STEMI was called. 1. STEMI Catheterization on 02/06/23 showed normal epicardial coronary arteries.negative troponins. echo pending, Symptoms may be pericarditis or gastrointestinal related. 2. Chronic pain cont per PCP 3. Chronic pancreatitis cont per PCP POC discussed with Sis Royal 02/24/23 1142: Attestations Physician Attestation Agree w/findings plan: I have seen and examined the patient at bedside. I have reviewed the relevant test results and formulated the assessment and plan. I agree with the note by RUBBER GOODS INSPECTOR TESTER. at 1044 at 1144 RPT #:[id number] END OF REPORT [facility] 2023-02-07 02:48:00 [facility] ([facility]) Critical Care Consult Note REPORT#:[id number] REPORT STATUS: Signed REPORT INITIALIZATION DATE:02/07/23 TIME: 247 PATIENT: TANNER BENDER UNIT #: [id number] ROOM/BED: [place] [address] : 84 AGE: 37 SEX: M ATTEND: Emre Dickson MD ADM AUTHOR: Dina Tai MD REPT SERVICE DT/TIME: 02/07/23247 * ALL edits or amendments must be made on the electronic/computer document * History of Present Illness HPI Chief complaint: Chest pain HPI: This is a 37 years old male with medical history significant for chronic pain and pancreatitis who was brought to the ER via EMS as a transfer from an outside hospital for chest pain. The patient developed chest pain around 7 PM so he went to the outside hospital where he received aspirin and nitroglycerin. EKG showed slight ST elevation in V3 and V4 and code STEMI was called. The patient was taken to [facility] where it showed that he has normal epicardial coronary artery. So he did not get any stents and was brought to CCU postprocedure for further observation and management. History - Adult longitudinal Past medical history: Reports: Pancreatitis. Additional medical history: Pancreatitis Past surgical history: Denies: Abdominal surgery. Additional family history: n/c Alcohol use: Denies EtOH use Drug use: Denies recreational drugs Smoking status for patients 13 years old or older: Unknown,if ever smoked Other social history: Primary family support Additional social history: family hx- unknown Allergies: Coded Allergies: Penicillins (Severe, THROAT SWELLS UP 12/24/21) Review of Systems ROS Additional notes: 12 point Review of Systems was performed to the extent possible including discussion with the nursing staff and review of vital signs and all data. All systems negative other than pertinent negative/positive findings mentioned in the interval history section. Objective Physical Exam VS/I O: Last Documented: Result Date Time Pulse Ox 98 02/07 1200 B/P 119/72 02/07 1200 B/P Mean 91 02/07 1200 Pulse 46 02/07 1200 Resp 16 02/07 1200 O2 Delivery Room air 02/07 0959 Temp 36.6 02/07 0545 FiO2 21 02/07 0022 Patient Weight and BMI Weight (kg): 58.200 BMI: 17.4 Medications: Active Meds + DC'd Last 24 Hrs Midazolam HCl (VERSED) 1 MG ONCE ONE IV (DC) Fentanyl Citrate (SUBLIMAZE) 50 MCG ONCE PRN IV (DC) Morphine Sulfate (morphine SULFATE) 2 MG Q3H PRN PRN IV Atropine Sulfate (ATROPINE SULFATE 0.1MG/ML SYR) 0.5 MG ASDIR PRN IV Clonidine HCl (CATAPRES) 0.1 MG Q6H PRN PRN PO Ondansetron HCl (ZOFRAN) 4 MG Q6H PRN PRN IV Sodium Chloride (SODIUM CHLORIDE 0.9%) 1,000 ML .[id number] IV Sodium Chloride (SODIUM CHLORIDE 0.9%) 500 ML ASDIR PRN IV Fentanyl Citrate (SUBLIMAZE) 0 .STK-MED ONE .ROUTE (DC) Midazolam HCl (VERSED) 0 .STK-MED ONE .ROUTE (DC) Iopamidol (ISOVUE-370 100ML) 0 .STK-MED ONE IV (DC) Heparin Sodium (HEPARIN SODIUM) 0 .STK-MED ONE .ROUTE (DC) Heparin Sodium/Sodium Chloride (HEPARIN 1,000 UNITS/NS 500ML) 500 ML .STK- MED ONE IV (DC) Lidocaine HCl (LIDOCAINE HCL/PF) 0 .STK-MED ONE .ROUTE (DC) Nitroglycerin/Dextrose (NITROGLYCERIN 50,000MCG/D5W 250ML) 250 ML .STK-MED ONE IV (DC) Heparin Sodium/Sodium Chloride (HEPARIN 2,000 UNITS/NS 1,000mL) 1,000 ML .STK-MED ONE IV (DC) Heparin Sodium (HEPARIN 5000 UNITS/ML) 4,522 UNIT X1ED STA IV (DC) Ticagrelor (BRILINTA) 180 MG X1ED STA PO (DC) Abdomen quadrants: LLQ normal bowel sounds, LUQ normal bowel sounds, RLQ normal bowel sounds, RUQ normal bowel sounds Results Findings/Data: Laboratory Tests 02/06/232254: [Embedded Image Not Available] Laboratory Tests 02/07 Chemistry Sodium (134 - 147 mEq/L) 140 Potassium (3.4 - 5.0 mEq/L) 3.8 Chloride (100 - 108 mEq/L) 104 Carbon Dioxide (21 - 33 mEq/l) 31 Anion Gap (0 - 20) 8 BUN (7 - 25 mg/dL) 10 Creatinine (0.6 - 1.3 mg/dL) 1.1 Glomerular Filtr Rate (105 - 110) 88.1 L Glucose (77 - 141 mg/dL) 47 L Calcium (8.0 - 10.5 mg/dL) 8.4 Magnesium (1.6 - 2.6 mg/dL) 2.46 Troponin I High Sens (0 - 54 ng/L) 4 < 3 Lipase (13 - 57 U/L) 63 H Laboratory Tests 02/06 2340 Coagulation Activated Coag Time (74 - 137 SEC) 197 H Laboratory Tests 02/07 Hematology WBC (4.5 - 11.0 x10 3/uL) 11.2 H RBC (4.00 - 5.60 x10 6/uL) 4.21 Hgb (12.5 - 16.9 g/dL) 13.3 Hct (37.5 - 50.7 %) 40.1 MCV (81.0 - 99.0 fL) 95.2 MCH (27.0 - 33.0 pg) 31.6 MCHC (33.0 - 37.0 g/dL) 33.2 RDW (11.5 - 14.5 %) 12.8 Plt Count (150 - 400 x10 3/uL) 322 MPV (7.0 - 9.0 fL) 9.7 H Neut % (Auto) (56.0 - 77.0 %) 53.3 L Lymph % (Auto) (14.0 - 32.0 %) 34.8 H Randolph % (Auto) (4.8 - 9.0 %) 7.8 Eos % (Auto) (0.3 - 3.7 %) 2.8 Baso % (Auto) (0.0 - 2.0 %) 1.0 Neut # (Auto) (2.0 - 7.6 x10 3/uL) 5.97 Lymph # (Auto) (1.0 - 3.8 x10 3/uL) 3.89 H Randolph # (Auto) (0.1 - 0.8 x10 3/uL) 0.87 H Eos # (Auto) (0.0 - 0.2 x10 3/uL) 0.31 H Baso # (Auto) (0.0 - 0.2 x10 3/uL) 0.11 Abs Immat Gran (auto) (0.00 - 0.03 x10 3/uL) 0.03 Add Manual Diff NO Immature Gran % (0.0 - 2.0 %) 0.3 Nucleated RBC % (0 - 0 %) 0.0 Nucleated RBCs # (Man) (0.0 - 0.1 x10 3/uL) 0.00 ESR Westergren (0 - 15 mm/hr) 3 Microbiology: 02/07 0024 NASAL: MRSA DNA Surveillance Screen - RECD Radiology data: Recent Impressions: RADIOLOGY - XR CHEST 1 V 02/06 6407 Report Impression - Status: SIGNED Entered: 02/06/2023 2311 IMPRESSION: No radiographic evidence of acute cardiopulmonary process. Impression By: [email or web address] - Marbin Fish M.D. Free Text Obj Notes Free Text Obj Notes: GEN: Patient is calm and in no distress. NECK: Supple, no JVD or thrush. No adenopathy. LUNGS: Clear lungs, no wheezes, no rales or crackles. CV: S1, S2 regular, no murmurs are heard. No S3 or rubs. GI: Abdomen is soft, not tender. Bowel sounds are present. EXT/Musc: No edema. No clubbing or cyanosis noted. Skin is warm. NEURO: Awake and oriented x 3. No focal findings. Diagnosis, Assessment Plan Diagnosis, Assessment Plan Problem list/A P: 1. STEMI (ST elevation myocardial infarction) 2. High blood pressure 3. Chest pain Free text DxA P: History of chronic pain and Dilaudid use as an outpatient Continue supplemental oxygen and titrate FiO2 to keep saturation more than 90%. Judicious pain control Cardiology is consulted and following Monitor kidney function and trend creatinine Monitor and replete electrolytes Strict I O's Cardiac diet with bowel regimen VTE prophylaxis, SCDs Stress ulcer prophylaxis, Pepcid Discussed with ICU team Critical care time 39 minutes at 2048 RPT #:[id number] END OF REPORT [facility] 2023-02-07 00:14:00 [facility]) Clinical Note REPORT#:[id number] REPORT STATUS: Signed REPORT INITIALIZATION DATE:02/07/23 TIME: 13 PATIENT: TANNER BENDER UNIT #: [id number] ROOM/BED: [place] [address] : 84 AGE: 37 SEX: M ATTEND: Emre Dickson MD ADM AUTHOR: Cristian Monreal MD REPT SERVICE DT/TIME: 02/07/234 * ALL edits or amendments must be made on the electronic/computer document * Clinical Note Note: CONSULTATION [id number] CATH ; [id number]: NORMAL CORONARY ARTERIES/ ? gi PAIN/ / PERICARDITIS at 0907 RPT #:[id number] END OF REPORT [facility] 2023-02-07 00:10:00 [id number] [place] [address] PATIENT NAME: TANNER BENDER ADMIT DATE: 02/06/23 ACCOUNT NO: [id number] ROOM NO: [facility] AGE: 37 REPORT TYPE: CONSULTATION REPORT SEX: M ADMITTING PHYSICIAN:Emre Dickson MD ATTENDING PHYSICIAN:Emre Dickson MD CONSULTATION DATE: 02/06/2023 REASON FOR CONSULTATION: Chest pain, abnormal EKG. HISTORY OF PRESENT ILLNESS: Tanner is a 37-year-old gentleman transferred from [facility] for chest pain with nausea, shortness of breath, diaphoresis. Denies tobacco, cocaine drug use. EKG showed slight ST elevation in V3, V4 leads, more noticeable on arrival here and code STEMI was called. He received heparin, aspirin in the hospital and Brilinta over here. Catheterization subsequently showed normal epicardial coronary arteries. HE IS ALLERGIC TO PENICILLIN. HOME MEDICATIONS: Include Tylenol with codeine, Dilaudid, Xanax, pancreatic enzymes, albuterol inhaler. He looks like he has had a recent left inguinal hernia surgery. He just got out of the hospital by ER evaluation on 01/30 for chest pain of uncertain cause as well as an evaluation 02/02, chest pain and numbness of left arm and left leg. I see a heart catheterization report on 11/11 at [facility]. Ejection fraction was 45%. Coronary arteries were normal. REVIEW OF SYSTEMS: Pancreatitis. PHYSICAL EXAMINATION: GENERAL: He weighs 64 kilos. He is 182 cm tall. BMI is 19.3. NECK: No JVD. LUNGS: Clear. HEART: Heart tones normal. SKIN: Tattoos. ABDOMEN: Soft. EXTREMITIES: No edema. LABORATORY VALUES: White count 11.2, platelet count 322,000. Potassium 3.8, creatinine 1.1. Troponin less than 3. CT angio of the chest and head was performed on 01/30 at [facility] with no acute abnormality. Aorta was normal. There was no pulmonary embolism. On 02/02, he had CT angio of the head and neck with no evidence of intracranial or cervical carotid or vertebral disease. BNP was 19. Last echocardiogram on 11/11/2022 showed ejection fraction 55%-60%, mildly increased pulmonary artery pressure, mild tricuspid regurgitation, gradient across tricuspid valve was estimated at 29 mmHg. PATIENT NAME: TANNER BENDER IMPRESSION: Tanner is a 37-year-old gentleman with crushing chest pain with abnormal EKG with normal epicardial coronary arteries. Symptoms may be pericarditis or gastrointestine related. It should be noted he has had recent presentation for chest pain with negative troponins in 09/2022, 10/2022, 01/2023 as well. It would be appropriate to treat him like pericarditis with nonsteroidals, colchicine, Indocin as allowed by his GI history along with proton pump inhibitors for gastro prophylaxis. Additional supportive care for pain control. Heart rate, blood pressure, rhythm monitoring should also be continued. Lipid panel on 11/11 showed total cholesterol 146, triglyceride 90, HDL 43, LDL 81. TSH was normal at 0.9. Dictated By: Cristian Monreal MD Date Dictated: 02/07/2023 00:10:47 Date Transcribed: 02/07/2023 01:13:48 STEVEN/MAN Receipt ID: [id number] Authenticated by Cristian Monreal MD On 02/10/2023 08:58:21 AM at 0858 PATIENT NAME: TANNER BENDER [facility] 2023-02-06 23:59:00 [id number] [place] [address] PATIENT NAME: TANNER BENDER ADMIT DATE: 02/06/23 ACCOUNT NO: [id number] ROOM NO: [facility] AGE: 37 REPORT TYPE: CARDIAC CATHETERIZATION REPORT SEX: M ADMITTING PHYSICIAN:Emer Dickson MD ATTENDING PHYSICIAN:Emre Dickson MD PROCEDURE DATE: 02/06/2023 Study done in a 37-year-old gentleman presenting to an outside hospital emergency room with chest pain and ST elevation in V3, V4. On arrival to the ER here, he did have more pronounced ST elevation in V3, V4 leads. Code STEMI was called. PROCEDURES PERFORMED: Fluoroscopy-guided access right femoral artery, a 6-Mosotho sheath insertion, limited right femoral angiogram, left heart catheterization, selective right and left coronary angiography, left ventriculography, manual hemostasis. HEMODYNAMICS: Sinus rhythm 70 beats per minute was noted. Left ventricular pressure is 120/15 mmHg. Aortic pressure is 140/80 mmHg. There is no gradient across the aortic valve on pullback pressure recording. CINE INTERPRETATION AND TECHNIQUE: A 6-Mosotho sheath was introduced. JL4, JR4 and pigtail catheters were used. Left main coronary artery is normal. Left anterior descending coronary artery is normal. Selective coronary angiography reveals normal right coronary artery, normal left main coronary artery, circumflex artery and left anterior descending coronary arteries. There is no evidence of any flow-limiting stenosis. WESLEY 3 flow is noted. Left ventriculogram shows perhaps mild apical hypokinesia. This will be confirmed with echocardiogram. IMPRESSION: Normal epicardial coronary arteries. It is possible he has pericarditis. Urine drug screen, serial troponins, sed rate, CRP will be checked. Dictated By: Cristian Monreal MD Date Dictated: 02/06/2023 23:59:24 Date Transcribed: 02/07/2023 00:06:20 STEVEN/MAN Receipt ID: [id number] Authenticated by Cristian Monreal MD On 02/10/2023 08:58:10 AM PATIENT NAME: TANNER BENDER at 0858 PATIENT NAME: TANNER BENDER [facility] 2023-02-06 23:48:00 [facility] ([facility]) History Physical - Adult REPORT#:[id number] REPORT STATUS: Signed REPORT INITIALIZATION DATE:02/06/23 TIME: 2347 PATIENT: TANNER BENDER UNIT #: [id number] ROOM/BED: [place] [address] : 84 AGE: 37 SEX: M ATTEND: Emre Dickson MD ADM AUTHOR: Ayaka Alfaro NP REPT SERVICE DT/TIME: 02/06/232347 * ALL edits or amendments must be made on the electronic/computer document * History of Present Illness HPI Chief complaint: Chest pain HPI: 37-year-old male with past medical history Of hypertension transferred from [facility] for chest pain. As per patient he suddenly had severe chest pain associated with shortness of breath, nausea, and diaphoresis. Patient denies dizziness, syncope, cough, fever, chills, nausea, vomiting or other associated symptoms. Patient was given aspirin prior to coming to the emergency room. Patient denies alcohol or and illicit drug use. Admission vital signs: Blood pressure 121/81, pulse 62, respiration 20, temperature, O2 sat 100% on room air. History Past medical history: Reports: Pancreatitis. Additional medical history: Pancreatitis Past surgical history: Denies: Abdominal surgery. Additional family history: n/c Alcohol use: Denies EtOH use Drug use: Denies recreational drugs Smoking status for patients 13 years old or older: Unknown,if ever smoked Other social history: Primary family support Additional social history: family hx- unknown Medication/Allergy-Vaccine Hx Allergies: Coded Allergies: Penicillins (Severe, THROAT SWELLS UP 12/24/21) Review of Systems Constitutional: Denies: chills, fever. ENT: Denies: earache, nasal congestion, sore throat. Respiratory: Denies: hemoptysis, parox nocturnal dyspnea, pleurisy, pleuritic pain, pneumonia , SOB, wheezing. Cardiovascular: Denies: chest pain, palpitations. GI: Denies: abdominal pain, nausea, vomiting. : Denies: flank pain, frequency, hematuria. Musculoskeletal: Arthritis: Denies: left upper, left lower, right upper, right lower. Neuro: Denies: change in LOC, confusion, dizziness, focal weakness, gait problem, headache, lightheaded, numbness, seizure, slurred speech, spinning sensation, syncope, unable to speak, vision change. Psych: Denies: agitation, anxiety, auditory hallucination, change in mental status, confusion, delusional, depression, homicidal ideation, hostile, insomnia, stress , suicidal ideation, visual hallucination. Physical Exam VS/I O Vital Signs: Date Time Temp Pulse Resp B/P B/P Pulse O2 O2 Flow FiO2 Mean Ox Delivery Rate 02/06 2300 57 16 123/85 97 100 02/06 2248 62 20 121/81 94 100 Room air PATIENT WEIGHT: Weight (lb): Weight (oz): Weight (kg): 64.600 General appearance: alert, awake Head/Eyes: atraumatic, clear cornea, EOMI, normocephalic, normal conjunctiva/ sclera, normal eyelids/periorb, PERRLA ENT: normal dentition, normal ear left, normal ear right, normal nose, normal pharynx, normal sinus Cardiovascular: regular rate rhythm Respiratory: clear to auscultation, no distress, no tenderness Abdomen/GI: active bowel sounds, soft, non-tender, no guarding, no rebound, no distention, no mass/organomegaly, no pulsatile mass, no hernia, normal abdominal aorta Abdomen quadrants: LLQ normal bowel sounds, LUQ normal bowel sounds, RLQ normal bowel sounds, RUQ normal bowel sounds Extremities: moves all, no edema-all extremities, normal capillary refill, normal range of motion, normal sensory, normal motor function Neuro/BOBBIN DISKER: alert, oriented X 3 Skin: dry, intact, no gross abnormalities Psychiatry: no hallucinations, normal affect, normal judgment/insight, normal mood, not homicidal, not suicidal Results Findings/Data: Laboratory Tests: 02/06 02/06 2340 2255 Chemistry Sodium (134 - 147 mEq/L) 140 Potassium (3.4 - 5.0 mEq/L) 3.8 Chloride (100 - 108 mEq/L) 104 Carbon Dioxide (21 - 33 mEq/l) 31 Anion Gap (0 - 20) 8 BUN (7 - 25 mg/dL) 10 Creatinine (0.6 - 1.3 mg/dL) 1.1 Glomerular Filtr Rate (105 - 110) 88.1 L Glucose (77 - 141 mg/dL) 47 L Calcium (8.0 - 10.5 mg/dL) 8.4 Magnesium (1.6 - 2.6 mg/dL) 2.46 Troponin I High Sens (0 - 54 ng/L) < 3 Coagulation Activated Coag Time (74 - 137 SEC) 197 H Hematology WBC (4.5 - 11.0 x10 3/uL) 11.2 H RBC (4.00 - 5.60 x10 6/uL) 4.21 Hgb (12.5 - 16.9 g/dL) 13.3 Hct (37.5 - 50.7 %) 40.1 MCV (81.0 - 99.0 fL) 95.2 MCH (27.0 - 33.0 pg) 31.6 MCHC (33.0 - 37.0 g/dL) 33.2 RDW (11.5 - 14.5 %) 12.8 Plt Count (150 - 400 x10 3/uL) 322 MPV (7.0 - 9.0 fL) 9.7 H Neut % (Auto) (56.0 - 77.0 %) 53.3 L Lymph % (Auto) (14.0 - 32.0 %) 34.8 H Randolph % (Auto) (4.8 - 9.0 %) 7.8 Eos % (Auto) (0.3 - 3.7 %) 2.8 Baso % (Auto) (0.0 - 2.0 %) 1.0 Neut # (Auto) (2.0 - 7.6 x10 3/uL) 5.97 Lymph # (Auto) (1.0 - 3.8 x10 3/uL) 3.89 H Randolph # (Auto) (0.1 - 0.8 x10 3/uL) 0.87 H Eos # (Auto) (0.0 - 0.2 x10 3/uL) 0.31 H Baso # (Auto) (0.0 - 0.2 x10 3/uL) 0.11 Abs Immat Gran (auto) (0.00 - 0.03 x10 3/uL) 0.03 Add Manual Diff NO Immature Gran % (0.0 - 2.0 %) 0.3 Nucleated RBC % (0 - 0 %) 0.0 Nucleated RBCs # (Man) (0.0 - 0.1 x10 3/uL) 0.00 Radiology data: Recent Impressions: RADIOLOGY - XR CHEST 1 V 02/06 2257 Report Impression - Status: SIGNED Entered: 02/06/2023 2311 IMPRESSION: No radiographic evidence of acute cardiopulmonary process. Impression By: [email or web address] Maria Del Carmen Fish M.D. Diagnosis, Assessment Plan Free Text DxA P Notes Free Text DxA P Notes: Assessment: 37-year-old male with past medical history Of hypertension transferred from [facility] for chest pain. As per patient he suddenly had severe chest pain associated with shortness of breath, nausea, and diaphoresis. Patient denies dizziness, syncope, cough, fever, chills, nausea, vomiting or other associated symptoms. Patient was given aspirin prior to coming to the emergency room. Patient denies alcohol or and illicit drug use. Admission vital signs: Blood pressure 121/81, pulse 62, respiration 20, temperature, O2 sat 100% on room air. 1. Chest pain associated with shortness of breath and nausea 2. STEMI 3. Hypertension Plan of care: Patient was taken to Online Merchandising Manager IV fluids Keep on continuous monitor Aspirin was given Patient did not tolerate nitroglycerin drip Further recommendation will be based on patient's clinical course at 0305 at 1109 RPT #:[id number] END OF REPORT [facility] 2023-02-06 22:58:00 [facility] ([facility]) EMERGENCY PROVIDER REPORT REPORT#:[id number] REPORT STATUS: Signed DATE:02/06/23 TIME: 2257 PATIENT: TANNER BENDER UNIT #: [id number] ROOM/BED: AGE: 37 SEX: M PCP PHYS: Fani Gibson MD SERVICE AUTHOR: Musa Langford MD * ALL edits or amendments must be made on the electronic/computer document * HPI-Chest Pain Under 40 Free Text HPI Notes Free Text HPI Notes 37-year-old male denies past medical history presenting to the emergency department via EMS as a transfer from [facility] for chest pain. Patient reports that he had sudden onset crushing chest pain with radiation to the left shoulder approximately 1900. Patient reports that is associated with nausea, shortness of breath, and sweating. Patient denies prior coronary artery disease history, denies smoking, denies hypertension, diabetes. Denies history of early onset coronary disease in the family. He denies smoking , cocaine use, denies illicit drug use. Patient received 325 of aspirin at outside hospital, was briefly initiated on nitroglycerin drip, which was stopped due to bradycardia, and received 1 of sublingual nitroglycerin. EKG was concerning for ST segment changes on V3 and V4 on initial EKG at outside hospital General Confirmed Patient Yes Patient Type New patient Initial Greet Date/Time 02/06/232254 Presentation Chief Complaint Chest pain, Chest pressure, Diaphoresis, Nausea, Shortness of breath Hx Obtained From Patient, EMS, Prior medical records Sudden in Onset? Yes Onset Occurred Hours ago Symptom Duration Since onset, Constant Progression since Onset Rapidly worsening Location Substernal, Chest L, Shoulder L Quality Pressure Radiation Shoulder L. )( Migration/Movement chest to left arm Pain/Sev: Onset Moderate Pain/Sev: Current Severe Risk-Chest Pain Under 40 Risk Stratification )( Coronary Artery Disease Risk factors reviewed Thoracic Aortic Dissection Risk factors reviewed )( Pulmonary Embolism Risk factors reviewed )( AMI-Aspirin Aspirin Last 24 Hrs 324 mg, By EMS )( HEART for MACE )( HEART for MACE Response Value History High index of suspicion [address]-depression 2 Age Age under 45 0 Risk Factors for CAD No risk factors known 0 Troponin < or = to NL troponin 0 Total 4 HEART Score for MACE 4-7 (mod risk 12%-16.6%) Review of Systems ROS Statements All systems rev neg except as marked. Free Text ROS Notes Free Text ROS Notes Review of systems was performed, pertinent positives and negatives noted in HPI. Past Medical History - Adult Stated Complaint STEMI Allergies Coded Allergies: Penicillins (Severe, THROAT SWELLS UP 12/24/21) Home Medications Discontinued Scripts ACETAMINOPHEN/CODEINE (TYLENOL WITH CODEINE #3 300/30 MG) 1 TAB PO Q4H PRN PRN ACUTE PAIN ACETAMINOPHEN/CODEINE (TYLENOL WITH CODEINE #3 300/30 MG) 1 TAB PO Q4H PRN PRN ACUTE PAIN #30 TABS Prov: 11/13/22 DC: 02/02/23 1915 DC prior to admit Reported Medications HYDROmorphone (DILAUDID) 1 MG PO Q4H PRN PRN PAIN SCALE 7-10 ALPRAZolam (XANAX) 2 MG PO TID PRN ANXIETY AMYLASE/LIPASE/PROTEA 120,000/24,000/76,000 U (CREON 24) 24,000 UNITS PO TID MEALS ALBUTEROL (PROAIR DIGIHALER 90 MCG/ACT 0.65 GM) 2 PUFF INH RTQ6H Review of Nursing Notes Rapid assess notes rev Past Medical History: Reports: Pancreatitis. Additional Medical History Pancreatitis Past Surgical History: Denies: Abdominal surgery. Additional Family History n/c Alcohol Use Denies EtOH use Drug Use Denies recreational drugs Smoking status for patients 13 years old or older: Unknown,if ever smoked Other Social History Primary family support Additional Social History family hx- unknown Physical Exam Vital Signs Vital Signs First Documented: Result Date Time Pulse Ox 100 02/07 2248 B/P 121/81 02/07 2248 B/P Mean 94 02/07 2248 O2 Delivery Room air 02/07 2248 Pulse 62 02/07 2248 Resp 20 02/07 2248 Last Documented: Result Date Time Pulse Ox 100 02/06 2300 B/P 123/85 02/06 2300 B/P Mean 97 02/06 2300 Pulse 57 02/06 2300 Resp 16 02/06 2300 O2 Delivery Room air 02/07 2248 Review of Vital Signs Reviewed Free Text PE Notes Free Text PE Notes GEN/CONST: awake, alert, significant distress due to pain MS HEAD: normocephalic EYES: EOMI, no scleral icterus EARS/NOSE/THROAT: airway patent, mucous membranes moist MS NECK: supple, full range of motion RESPIRATORY/CHEST: equal diaphragmatic excursion with normal breath sounds, no respiratory distress CARDIOVASCULAR: normal rate and regular rhythm ABDOMEN/GI: no distension, soft and nontender MS BACK: painless range of motion, non-tender MS UPPER EXT: inspection unremarkable, no deformity MS LOWER EXT: inspection unremarkable, no deformity SKIN: warm, dry, intact NEURO: normal speech, no motor deficits Interpretation Diagnostics Lab Results Interpretation Considerations Independ review imaging, Reviewed prior records Results Laboratory Tests 02/06/232254: [Embedded Image Not Available] Laboratory Tests: 02/06 2255 Hematology WBC (4.5 - 11.0 x10 3/uL) 11.2 H RBC (4.00 - 5.60 x10 6/uL) 4.21 Hgb (12.5 - 16.9 g/dL) 13.3 Hct (37.5 - 50.7 %) 40.1 MCV (81.0 - 99.0 fL) 95.2 MCH (27.0 - 33.0 pg) 31.6 MCHC (33.0 - 37.0 g/dL) 33.2 RDW (11.5 - 14.5 %) 12.8 Plt Count (150 - 400 x10 3/uL) 322 MPV (7.0 - 9.0 fL) 9.7 H Neut % (Auto) (56.0 - 77.0 %) 53.3 L Lymph % (Auto) (14.0 - 32.0 %) 34.8 H Randolph % (Auto) (4.8 - 9.0 %) 7.8 Eos % (Auto) (0.3 - 3.7 %) 2.8 Baso % (Auto) (0.0 - 2.0 %) 1.0 Neut # (Auto) (2.0 - 7.6 x10 3/uL) 5.97 Lymph # (Auto) (1.0 - 3.8 x10 3/uL) 3.89 H Randolph # (Auto) (0.1 - 0.8 x10 3/uL) 0.87 H Eos # (Auto) (0.0 - 0.2 x10 3/uL) 0.31 H Baso # (Auto) (0.0 - 0.2 x10 3/uL) 0.11 Abs Immat Gran (auto) (0.00 - 0.03 x10 3/uL) 0.03 Add Manual Diff NO Immature Gran % (0.0 - 2.0 %) 0.3 Nucleated RBC % (0 - 0 %) 0.0 Nucleated RBCs # (Man) (0.0 - 0.1 x10 3/uL) 0.00 Recent Impressions: RADIOLOGY - XR CHEST 1 V 02/06 2257 Report Impression - Status: SIGNED Entered: 02/06/20232310 IMPRESSION: No radiographic evidence of acute cardiopulmonary process. Impression By: MaidaMNader Fish M.D. Lab Imaging Statement Laboratory radiographic studies reviewed and considered in the medical decision-making. Point of Care Testing Pulse Oximetry Pulse Ox % 95 On: Room air Interpretation Interpreted by me, Pulse oximetry normal Time 2310 Rhythm Strip Interpretation Time 2310 Rate 62 Rhythm Strip Interpretation Interpreted by me, Independently interpreted, Normal sinus rhythm ECG #1 Interpretation Text/Dict Note qtc 390 ECG Documented in MUSE Yes Date 02/06/23 Time 2251 Interpreted by and reviewed by me, Independently interpreted, ED physician NL ECG Interpretation Normal axis, Adequate tracing Rate 58 ECG Q-T-ST - TN STEMI, STEMI anterior wall Compared to Previous ECG changed (significant change vs inital) Re-Evaluation MDM Free Text MDM Notes Free Text MDM Notes -I have reviewed old medical records and imaging studies if available in our EMR. -History was obtained from the patient. -An independent history was obtained from EMS, required given medical condition of the patient may limit acquisition of full history -PMH significant for elements as noted specficially in the HPI above. Patient with crushing left-sided chest pain, radiating to left arm, associate with shortness of breath, protecting airway on arrival. Clinical presentation concerning for myocardial infarction. Patient placed on monitor, pads placed, 325 Aspirin had been given. Received initial EKG at [facility], which was concerning for ST segment changes V3 and V4, repeat screening EKG here showing ST segment elevation in the anterior leads. Substantial change from initial EKG. Dr. Monreal, STEMI on-call winding department supervisor, aware, and agrees with interpretation of EKG. STEMI alert called overhead, Online Merchandising Manager to be activated. Okay with heparin administration, and Brilinta. Chest x-ray called overhead, no obvious evidence of acute pathology, or dissection. We will administer heparin. Screening labs and coagulation profile ordered. Disposition to the Online Merchandising Manager, CCU. ----- Shared decision making: Discussion with patient regarding risks and benefits of care. Patient verbalizes understanding and agreement with plan as the patient is able given present condition. Re-Evaluation/Progress #1 Time of Re-Eval 7 Re-Eval Status Improved Tissue Perfusion Reassessment Patient tissue perfusion reassessment completed. ED Course Medication(s) Ordered Medication(s) Ordered: Blood Formation,Coagulation Sig/José Miguel Start time Last Medication Dose Route Stop Time Status Admin Heparin Sodium 4,522 UNIT X1ED STA 02/066 DC 02/06 IV 02/06 Ticagrelor 180 MG X1ED STA 02/06 2255 DC 02/06 PO 02/06 Consultation Consultation 1 Referral/Consult Name Cristian Monreal MD Clinical Operations Manager Called Budget Controller Discussed with senior solutions workflow consultant, Agrees with eval, Agrees with plan, Requested medical laboratory scientist, Will see patient Requested Call Time 2250 Requested Call Date 02/06/23 Call Returned Call returned Call Returned Time 225 Call Returned Date 02/06/23 Free Text Consult Notes I discussed the patient's presentation, history, exam, work-up, and current clinical condition with the senior solutions workflow consultant. Recommendations as above. Consultation 2 Referral/Consult Name ; Dina Tai MD Clinical Operations Manager Called Laboratory Associate Clinical Operations Manager Discussed with senior solutions workflow consultant, Agrees with eval, Agrees with plan, Will see patient Requested Call Time 2320 Requested Call Date 02/06/23 Call Returned Call returned Call Returned Time 2320 Call Returned Date 02/06/23 Free Text Consult Notes I discussed the patient's presentation, history, exam, work-up, and current clinical condition with the senior solutions workflow consultant. Aware of patient. ok with admission Patient Discharge Departure Vital Signs/Condition Vital Signs First Documented: Result Date Time Pulse Ox 100 02/07 2248 B/P 121/81 02/07 2248 B/P Mean 94 02/07 2248 O2 Delivery Room air 02/07 2248 Pulse 62 02/07 2248 Resp 20 02/07 2248 Last Documented: Result Date Time Pulse Ox 100 02/06 2300 B/P 123/85 02/06 2300 B/P Mean 97 02/06 2300 Pulse 57 02/06 2300 Resp 16 02/06 2300 O2 Delivery Room air 02/07 2248 All vital signs available at the time of this entry have been reviewed. Condition Critical Clinical Impression Clinical Impression Primary Impression: STEMI (ST elevation myocardial infarction) Disposition Decision Hospitalize Hosp Physician Name Emre Dickson MD [facility] Physician Hospitalist Request Time 2308 Request Date 02/06/23 )( Accepts Hospitalization Yes )( Reason for Hospitalization STEMI )( Accepted Time 2308 )( Accepted Date 02/06/23 Call Information will see patient, agrees with eval, agrees with plan Discharge/Care Plan Counseled Regarding Diagnosis, Lab results, Imaging studies, Need for admission Admit Note I have spoken with the patient and/or caregivers. I have explained the patient's condition, diagnoses and treatment plan based on the information available to me at this time. I have answered the patient's and/or caregiver's questions and addressed any concerns. The patient and/or caregivers have as good an understanding of the patient's diagnosis, condition and treatment plan as can be expected at this point. The patient has been stabilized within the capability of the emergency department. The patient will be transported for further care and management or will be moved to an observation or inpatient service. I have communicated with the staff or medical practitioner taking over this patient's care. Critical Care Time Spent (minutes): 31 Services Performed Patient management by me, Time spent at bedside, Reviewing test results, Reviewing imaging, Discussing patient care, Documentation in record Separately billable procedures excluded from time. Patient was critically ill due to: ST segment elevation, myocardial infarction. Requiring emergent Online Merchandising Manager activation, consultation with cardiology, for emergent intervention. Care of the patient requiring constant hemodynamic monitoring, monitoring of the mental status of the patient, and ability to protect airway given concern for high likelihood of rapid clinical decline/decompensation requiring emergent intervention that threatens multiple organ systems, including neurologic and cardiopulmonary failure CC Note 2 The high probability of sudden, clinically significant deterioration in the patient's condition required the highest level of my preparedness to intervene urgently. The services I provided to this patient were to treat and/or prevent clinically significant deterioration that could result in severe disability or . Services included the following: chart data review, reviewing nursing notes and/ or old charts, documentation time, senior solutions workflow consultant collaboration regarding findings and treatment options, medication orders and management, direct patient care, re -evaluations, vital sign assessments and ordering, interpreting and reviewing diagnostic studies/lab tests. Aggregate critical care time was [31] minutes, which includes only time during which I was engaged in work directly related to the patient's care, as described above, whether at the bedside or elsewhere in the Emergency Department. It did not include time spent performing other reported procedures or the services of residents, students, nurses or physician assistants. Quality Measures BP F/U for HTN Patient admitted, Pre-existing HTN 12-Lead ECG for CP Performed documented at [address] [facility] #:[id number] END OF REPORT [facility] 2023-02-06 22:52:00 [id number] [place] [address] PATIENT NAME: TANNER BENDER ADMIT DATE: 02/06/23 ACCOUNT NO: [id number] ROOM NO: [id number] AGE: 37 REPORT TYPE: eELECTROCARDIOGRAM REPORT SEX: M ADMITTING PHYSICIAN:Emre Dickson MD ATTENDING PHYSICIAN:Emre Dickson MD Order: [id number] Test Reason : Test Date/Time Stamp: FriFeb 06 2023 22:52:22 Blood Pressure : / mmHG Vent. Rate : 058 BPM Atrial Rate : 058 BPM P-R Int : 116 ms QRS Dur : 094 ms QT Int : 398 ms P-R-T Axes : 021 081 064 degrees QTc Int : [address] elevation, consider anterolateral injury or acute infarct ST elevation, consider inferior injury or acute infarct v/s early repolarizastion, Abnormal ECG When compared with ECG of 02-FEB-2023 23:27, Significant changes have occurred Confirmed by MD JOCELYNE, CRISTIAN ([id number]) on 03/09/2023 10:52:16 AM Referred By: Self Referred Confirmed by:CRISTIAN MONREAL MD at 1052 PATIENT NAME: TANNER BENDER [facility] 2023-02-03 18:01:00 [facility] ([facility]) Discharge Summary REPORT#:[id number] REPORT STATUS: Signed REPORT INITIALIZATION DATE:02/03/23 TIME: 180 PATIENT: TANNER BENDER UNIT #: [id number] ROOM/BED: [address] : 84 AGE: 37 SEX: M ATTEND: Preston Escobar MD ADM AUTHOR: Carin Richard NP REPT SERVICE DT/TIME: 02/03/23 180 * ALL edits or amendments must be made on the electronic/computer document * PCP PCP PCP: PCP: No Primary or Family Physician General Information Discharge date: 02/03/23 Discharge diagnosis: patient left AMA Hospital course: patient left AMA Discharge Instructions PCP PCP: PCP: No Primary or Family Physician Discharge Instructions Additional Discharge Routines: left AMA at 1803 at 1047 RPT #:[id number] END OF REPORT [facility] 2023-02-02 23:27:00 [id number] [facility] PATIENT NAME: TANNER BENDER ADMIT DATE: 02/02/23 ACCOUNT NO: [id number] ROOM NO: [facility] AGE: 37 REPORT TYPE: eEKG REPORT SEX: M DATE OF : 83 ADMITTING PHYSICIAN:Preston Escobar MD ATTENDING PHYSICIAN:Preston Escobar MD Order: [id number] Test Reason : Cardiac consult Test Date/Time Stamp: [place] Feb 02 2023 23:27:56 Blood Pressure : / mmHG Vent. Rate : 050 BPM Atrial Rate : 050 BPM P-R Int : 128 ms QRS Dur : 100 ms QT Int : 430 ms P-R-T Axes : 037 076 063 degrees QTc Int : 392 ms Sinus bradycardia Moderate voltage criteria for LVH, may be normal variant ST elevation, consider early repolarization, pericarditis, or injury Abnormal ECG No previous ECGs available Confirmed by DMITRI MACHADO MD ([id number]) on 02/03/2023 12:43:46 PM Referred By: Self Referred Confirmed by:DMITRI MACHADO MD at 1243 PATIENT NAME: TANNER BENDER [facility] 2023-02-02 17:53:00 [facility] ([facility]) EMERGENCY PROVIDER REPORT REPORT#:[id number] REPORT STATUS: Signed DATE:02/02/23 TIME: 175 PATIENT: TANNER BENDER UNIT #: [id number] ROOM/BED: AGE: 37 SEX: M PCP PHYS: No Primary or Family Physician SERVICE AUTHOR: Amy Preciado MD * ALL edits or amendments must be made on the electronic/computer document * HPI-Chest Pain Under 40 Free Text HPI Notes Free Text HPI Notes 37-year-old male presents stating that he is having pain to his chest as well as numbness to his left arm and left leg. Patient says that Friday he started to have chest pain that caused him to have shortness of breath. He says that he was seen at the hospital but he was discharged. Patient says that last night around 8 PM the same symptoms came back along with numbness to leg and numbness to his left arm. Patient says he is left-handed. He also reports some dizziness as well. Denies any falls or trauma to his head or chest. Patient reports nausea due to the pain but denies vomiting and denies diarrhea General Initial Greet Date/Time 02/02/23 1650 Presentation Chief Complaint Chest pain Hx Obtained From Patient, Prior medical records Sudden in Onset? Yes )( Migration/Movement None Stroke Documentation Risk Stratification Initial NIH Stroke Scale Initial NIH Stroke Scale Response Value NIHSS Applicable? Yes 0 Level of Consciousness Alert and responsive (0) 0 Ask Month Age Both questions right (0) 0 Blink Eyes/Squeeze Hands Performs both tasks (0) 0 Horizontal EOM NL side/side eye mvmt (0) 0 Visual M[place] No visual loss (0) 0 Facial Palsy Normal symmetry (0) 0 Right Arm Motor Drift (10s) No drift 10 sec (0) 0 Left Arm Motor Drift (10s) No drift 10 sec (0) 0 Right Leg Motor Drift (5s) No drift 5 sec (0) 0 Left Leg Motor Drift (5s) No drift 5 sec (0) 0 Limb Ataxia FNF/Heel-Angelo No ataxia (0) 0 Sensation (Arms/Legs/Face) P-prick dull but felt (1) 1 Language Aphasia No aphasia, normal (0) 0 Dysarthria No dysarthria (0) 0 Extinction/Inattention No extinct/inattent (0) 0 Total 1 Risk-Chest Pain Under 40 Risk Stratification )( Coronary Artery Disease Risk factors reviewed )( Pulmonary Embolism Risk factors reviewed )( AMI-Aspirin Aspirin Last 24 Hrs 324 mg, On arrival )( HEART for MACE )( HEART for MACE Response Value History Mod index of suspicion 1 ECG Interpretation Normal ECG 0 Age Age under 45 0 Risk Factors for CAD 1-2 CAD risk factors 1 Troponin < or = to NL troponin 0 Total 2 Review of Systems ROS Statements All systems rev neg except as marked. Focused Review of Systems Constitutional Denies: Chills, Fever. Respiratory Reports: Shortness of breath. Cardiovascular Reports: Chest pain. GI Reports: Nausea. Denies: Abdominal pain. Neurologic Reports: Dizziness, Numbness. Past Medical History - Adult Stated Complaint ABD PAIN Allergies Coded Allergies: Penicillins (Severe, THROAT SWELLS UP 12/24/21) Home Medications Active Scripts ACETAMINOPHEN/CODEINE (TYLENOL WITH CODEINE #3 300/30 MG) 1 TAB PO Q4H PRN PRN ACUTE PAIN ACETAMINOPHEN/CODEINE (TYLENOL WITH CODEINE #3 300/30 MG) 1 TAB PO Q4H PRN PRN ACUTE PAIN #30 TABS Prov: 11/13/22 Reported Medications HYDROmorphone (DILAUDID) 1 MG PO Q4H PRN PRN PAIN SCALE 7-10 ALPRAZolam (XANAX) 2 MG PO TID PRN ANXIETY ALBUTEROL (PROAIR DIGIHALER 90 MCG/ACT 0.65 GM) 2 PUFF INH RTQ6H Past Medical History: Reports: Pancreatitis. Additional Medical History Pancreatitis Past Surgical History: Denies: Abdominal surgery. Additional Family History n/c Alcohol Use Denies EtOH use Drug Use Denies recreational drugs Smoking status for patients 13 years old or older: Never Smoker Other Social History Primary family support Additional Social History family hx- unknown Physical Exam Vital Signs Vital Signs First Documented: Result Date Time Pulse Ox 98 02/02 1649 B/P 173/111 02/02 1649 B/P Mean 132.1 02/02 1649 O2 Delivery Room air 02/02 1649 Temp 36.7 02/02 1649 Pulse 68 02/02 1649 Resp 18 02/02 1649 Last Documented: Result Date Time Pulse Ox 99 02/02 1837 B/P 182/109 02/02 1837 B/P Mean 133.0 02/02 1837 O2 Delivery Room air 02/02 1837 Temp 36.9 02/02 1837 Pulse 72 02/02 1837 Resp 18 02/02 1837 Review of Vital Signs Reviewed, Vital signs abnormal Focused PE General/Const General/Const Awake, Alert, Cooperative Distress/Hydration Distress mild. Appearance/Presentation In pain, Uncomfortable. Eyes Eyes PERRL, EOMI Resp/Chest Respiratory/Chest Breath sounds NL, Breath sounds = bilat, No respiratory distress Cardiovascular Cardiovascular Heart rate NL, Regular rhythm, Heart sounds NL Abdomen/GI Abdomen/GI Soft, Non-tender, No guarding, No rebound, BS normoactive MS Lower Extrem Lower Ext/Pelvis/MS No swelling, Non-tender, No erythema, No deformity, Neurologic intact, Vascular intact Neurologic Neurologic Oriented X3, Speech NL, No motor deficits, No sensory deficits, Gait NL Text/Dict Notes Patient reports subjective decrease sensation to left upper arm, left lower arm, left hand, left foot Interpretation Diagnostics Lab Results Interpretation Results Laboratory Tests 02/02/231729: [Embedded Image Not Available] 02/02/231729: [Embedded Image Not Available] Laboratory Tests: 02/02 1730 173 Chemistry Sodium (136 - 145 mmol/L) 142 Potassium (3.5 - 5.1 mmol/L) 4.2 Chloride (98 - 107 mmol/L) 110.0 H Carbon Dioxide (21 - 32 mmol/L) 26.0 Anion Gap (10 - 20) 10.2 BUN (7 - 18 mg/dL) 7 Creatinine (0.7 - 1.3 mg/dL) 1.00 Glomerular Filtr Rate (>=60 mL/min) > 60 BUN/Creatinine Ratio (10 - 20) 7.3 L Glucose (74 - 106 mg/dL) 101 Calcium (8.5 - 10.1 mg/dL) 8.6 Total Bilirubin (0.0 - 1.0 mg/dL) 0.50 Direct Bilirubin (0.0 - 0.20 mg/dL) 0.20 AST (15 - 37 IUnit/L) 19 ALT (12 - 78 IUnit/L) 26 Total Alk Phosphatase (45 - 117 IUnit/L) 58 Troponin I (0 - 54 pg/mL) <4.0 Total Protein (6.4 - 8.2 gram/dL) 6.8 Albumin (3.4 - 5.0 g/dL) 3.7 Globulin (2.7 - 4.2 gram/dL) 3.1 Albumin/Globulin Ratio (0.75 - 1.50) 1.2 Lipase (12 - 57 U/L) 53 Coagulation INR (0.8 - 1.2) 1.0 PTT ([place]) (26.6 - 37.3 seconds) 33.9 PT Patient/Control Mix (10.0 - 14.0 seconds) 11.7 Hematology WBC (4.5 - 12.5 K/mm3) 9.3 RBC (4.0 - 5.8 mill/mm3) 4.39 Hgb (13.0 - 17.5 gram/dL) 13.9 Hct (42.0 - 52.0 %) 41.6 L MCV (80 - 98 fL) 94.8 MCH (27.0 - 33.0 picogram) 31.7 MCHC (33.0 - 36.0 gram/dL) 33.4 RDW (11.6 - 16.2 %) 12.5 Plt Count (150 - 450 K/mm3) 308 MPV (6.7 - 11.0 fL) 10.0 Toxicology Ethyl Alcohol (0.0 - 3.0 mg/dL) 4 H Recent Impressions: CAT SCAN - CTA NECK STROKE VIZ 02/02 9262 Report Impression - Status: SIGNED Entered: 02/02/2023 1803 IMPRESSION: No intracranial large vessel occlusion or high-grade stenosis. No cervical carotid or vertebral artery stenosis. Note: Carotid stenosis estimation based on NASCET measurement criteria. LOCATION: LP Impression By: Bora Yancey D.O. CAT SCAN - CTA HEAD STROKE VIZ AI 02/02 172 Report Impression - Status: SIGNED Entered: 02/02/2023 1803 IMPRESSION: No intracranial large vessel occlusion or high-grade stenosis. No cervical carotid or vertebral artery stenosis. Note: Carotid stenosis estimation based on NASCET measurement criteria. LOCATION: LP Impression By: Bora Yancey D.O. CAT SCAN - CT HEAD/BRAIN W/O CONT 02/02 1730 Report Impression - Status: SIGNED Entered: 02/02/2023 1741 IMPRESSION: No CT evidence of acute infarct. MRI would be more sensitive if there is continued clinical concern. No acute intracranial hemorrhage. Called to Dr. Preciado at 1738. LOCATION: LP Impression By: Bora Silver.Fiorella RADIOLOGY - XR CHEST 1 V 02/02 1800 Report Impression - Status: SIGNED Entered: 02/02/2023 1824 IMPRESSION: No radiographic evidence of acute cardiopulmonary process. LOCATION: LP Impression By: Bora Yancey D.OMark ECG #1 Interpretation ECG Documented in MUSE Yes Date 02/02/23 Time 1729 Interpreted by and reviewed by me, Independently interpreted, ED physician NL ECG Interpretation Normal rate, Normal sinus rhythm, No acute ischemic changes, No STEMI, LVH Rate 70 Re-Evaluation MDM Free Text MDM Notes Free Text MDM Notes Labs and radiologic studies independently reviewed and interpreted below. 6:43 PM: Went to go reassess patient who appears much more comfortable but reports that he still having some left-sided chest pain and numbness. Patient CT of head and CTA of head and neck are negative for acute pathology. Note also that patient was seen here 2 days ago and had a CTA of his chest which was also negative for acute pathology. note that patient is still very hypertensive and we did discuss with him that it is possible that the high pressure itself is may be causing the symptoms. We discussed with patient that he will be admitted and his blood pressure treated and he will be reassessed by the admitting team. Patient is agreeable with this plan ED Course Medication(s) Ordered Medication(s) Ordered: Central Nervous System Agents Sig/José Miguel Start time Last Medication Dose Route Stop Time Status Admin Aspirin 324 MG X1ED STA 02/02 1817 DC 02/02 PO 02/02 1818 1836 Aspirin 325 MG X1ED STA 02/02 1739 DC PO 02/02 174 Morphine Sulfate 4 MG X1ED STA 02/02 173 DC 02/02 IV 02/02 174 1809 Aspirin 324 MG X1ED STA 02/02 1710 CAN PO 02/02 171 Diagnostic Agents Sig/José Miguel Start time Last Medication Dose Route Stop Time Status Admin Iopamidol 0 .STK-MED ONE 02/02 1742 DC 02/02 .ROUTE 1748 Differential Diagnosis )( Differential Diagnosis Acute coronary syndrome, Acute myocardial infarct, Anxiety disorder, Chest pain, Congestive heart failure, Costochondritis, Dysrhythmia, GERD, Peptic ulcer disease, Pleurisy, Pneumonia, Pneumothorax, Pulmonary edema, Pulmonary embolism Patient Discharge Departure Vital Signs/Condition Vital Signs First Documented: Result Date Time Pulse Ox 98 02/02 1649 B/P 173/111 02/02 1649 B/P Mean 132.1 02/02 1649 O2 Delivery Room air 02/02 1649 Temp 36.7 02/02 1649 Pulse 68 02/02 1649 Resp 18 02/02 1649 Last Documented: Result Date Time Pulse Ox 99 02/02 1837 B/P 182/109 02/02 1837 B/P Mean 133.0 02/02 1837 O2 Delivery Room air 02/02 1837 Temp 36.9 02/02 1837 Pulse 72 02/02 1837 Resp 18 02/02 1837 All vital signs available at the time of this entry have been reviewed. Clinical Impression Clinical Impression Primary Impression: Left sided numbness Secondary Impressions: High blood pressure Disposition Decision Hospitalize Hosp Physician Name Preston Escobar MD Hosp Physician Hospitalist Request Time 1841 Request Date 02/02/23 )( Accepts Hospitalization Yes )( Accepted Time 1841 )( Accepted Date 02/02/23 Call Information will see patient, agrees with eval, agrees with plan Discharge/Care Plan Counseled Regarding Diagnosis, Lab results, Imaging studies, Need for admission at 1844 RPT #:[id number] END OF REPORT [facility] 2023-02-02 17:28:00 [id number] [facility] PATIENT NAME: TANNER BENDER ADMIT DATE: 02/02/23 ACCOUNT NO: [id number] ROOM NO: 4005 AGE: 37 REPORT TYPE: eEKG REPORT SEX: M DATE OF : [birth year] ADMITTING PHYSICIAN:Preston Escobar MD ATTENDING PHYSICIAN:Preston Escobar MD Order: [id number] Test Reason : Test Date/Time Stamp: [place] Feb 02 2023 17:28:29 Blood Pressure : / mmHG Vent. Rate : 069 BPM Atrial Rate : 069 BPM P-R Int : 100 ms QRS Dur : 088 ms QT Int : 364 ms P-R-T Axes : 055 082 074 degrees QTc Int : 390 ms Sinus rhythm with short OK Voltage criteria for left ventricular hypertrophy Abnormal ECG Confirmed by DMITRI MACHADO MD ([id number]) on 02/03/2023 12:45:35 PM Referred By: Self Referred Confirmed by:DMITRI MACHADO MD at 1245 PATIENT NAME: TANNER BENDER [facility] 2023-01-30 21:10:00 [facility] ([facility]) EMERGENCY PROVIDER REPORT REPORT#:[id number] REPORT STATUS: Signed DATE:01/30/23 TIME: 2109 PATIENT: TANNER BENDER UNIT #: [id number] ROOM/BED: AGE: 37 SEX: M PCP PHYS: Gonzalez Wan MD SERVICE AUTHOR: Michele Rowe MD * ALL edits or amendments must be made on the electronic/computer document * HPI-Chest Pain 40 and Over Free Text HPI Notes Free Text HPI Notes Patient was to the ED complaining of chest pain. Sharp and squeezing. Started yesterday. Constant. Has history of pancreatitis. No exacerbating or alleviating factors. General Initial Greet Date/Time 01/30/231829 Presentation Chief Complaint Chest pain Sudden in Onset? No )( Migration/Movement None Review of Systems Focused Review of Systems Constitutional Denies: Chills, Fever, Lethargy. Respiratory Denies: Cough, non-productive, Cough, productive, Shortness of breath. Cardiovascular Reports: Chest pain. Denies: Dyspnea on exertion, Edema, Orthopnea, Palpitations, Parox nocturnal dyspnea, Syncope. GI Denies: Abdominal pain, Diarrhea, Nausea, Vomiting. Musculoskeletal Denies: Back pain, Extremity pain. Skin Denies: Diaphoresis, Rash. Neurologic Denies: Change LOC, Dizziness, Focal weakness, Headache, Numbness, Slurred speech. Psychiatric Denies: Anxiety, Depression. Past Medical History - Adult Stated Complaint CHEST PAIN SOB SINCE YESTERDAY Allergies Coded Allergies: Penicillins (Severe, THROAT SWELLS UP 12/24/21) Home Medications Reported Medications ALPRAZolam (XANAX) 2 MG PO TID PRN ANXIETY HYDROmorphone (DILAUDID) 2 MG PO Q4H PRN PRN PAIN SCALE 7-10 AMYLASE/LIPASE/PROTEA 120,000/24,000/76,000 U (CREON 24) 24,000 UNITS PO TID MEALS ALBUTEROL (PROAIR DIGIHALER 90 MCG/ACT 0.65 GM) 2 PUFF INH RTQ6H Past Medical History: Reports: Pancreatitis. Additional Medical History Pancreatitis Past Surgical History: Denies: Abdominal surgery. Additional Family History n/c Alcohol Use Denies EtOH use Drug Use Denies recreational drugs Smoking status for patients 13 years old or older: Former Smoker Other Social History Primary family support Additional Social History family hx- unknown Physical Exam Vital Signs Vital Signs First Documented: Result Date Time Pulse Ox 98 01/30 1833 B/P 145/90 01/30 1833 B/P Mean 108.4 01/30 1833 Temp 36.9 01/30 1833 Pulse 70 01/30 1833 Resp 17 01/30 1833 O2 Delivery Room air 01/30 2237 Last Documented: Result Date Time Pulse Ox 100 01/30 2237 B/P 149/99 01/30 2237 B/P Mean 115 01/30 2237 O2 Delivery Room air 01/30 2237 Temp 36.7 01/30 2237 Pulse 62 01/30 2237 Resp 16 01/30 2237 Review of Vital Signs Reviewed Focused PE General/Const General/Const Awake, Alert Eyes Eyes PERRL MS Neck Neck Supple, Full range of motion, No swelling, Non-tender, No masses, No JVD Resp/Chest Respiratory/Chest Breath sounds NL, Breath sounds = bilat, No respiratory distress, No rales, No rhonchi, No wheezing, No chest tenderness Cardiovascular Cardiovascular Heart rate NL, Regular rhythm, Heart sounds NL, No murmurs, Peripheral circulation NL, Pulses = bilaterally, No gross BP differential Abdomen/GI Abdomen/GI Soft, Non-tender, No guarding, No rebound MS Back Back Inspection NL, Non-tender, No CVA tenderness MS Lower Extrem Lower Ext/Pelvis/MS Inspection NL, No swelling, Non-tender, No erythema, No deformity, Neurologic intact, Vascular intact, No edema Skin Skin Color NL, Warm, Dry, Turgor NL Neurologic Neurologic Oriented X3, Speech NL, No motor deficits, No sensory deficits Psychiatric Psychiatric Affect NL, Mood NL, Thought content NL Interpretation Diagnostics Lab Results Interpretation Results Laboratory Tests 01/30/232007: [Embedded Image Not Available] Laboratory Tests: 01/30 Chemistry Sodium (136 - 145 mmol/L) 140 Potassium (3.5 - 5.1 mmol/L) 3.9 Chloride (98 - 107 mmol/L) 106.0 Carbon Dioxide (21 - 32 mmol/L) 30.0 Anion Gap (10 - 20) 7.9 L BUN (7 - 18 mg/dL) 7 Creatinine (0.7 - 1.3 mg/dL) 1.10 Glomerular Filtr Rate (>=60 mL/min) > 60 BUN/Creatinine Ratio (10 - 20) 6.4 L Glucose (74 - 106 mg/dL) 81 Calcium (8.5 - 10.1 mg/dL) 9.0 Troponin I (0 - 54 pg/mL) <4.0 B-Natriuretic Peptide (0 - 100 pgram/mL) 19.6 Hematology WBC (4.5 - 12.5 K/mm3) 8.9 RBC (4.0 - 5.8 mill/mm3) 4.60 Hgb (13.0 - 17.5 gram/dL) 14.4 Hct (42.0 - 52.0 %) 43.4 MCV (80 - 98 fL) 94.3 MCH (27.0 - 33.0 picogram) 31.3 MCHC (33.0 - 36.0 gram/dL) 33.2 RDW (11.6 - 16.2 %) 12.6 Plt Count (150 - 450 K/mm3) 328 MPV (6.7 - 11.0 fL) 9.7 Recent Impressions: RADIOLOGY - XR CHEST 1 V 01/31 1820 Report Impression - Status: SIGNED Entered: 01/30/2023 185 IMPRESSION: No acute cardiopulmonary process. Location: Impression By: Justin Witt M.D. CAT SCAN - CTA CHEST 01/30 2115 Report Impression - Status: SIGNED Entered: 01/30/20232136 IMPRESSION: No acute findings in the chest. Impression By: Justin Witt M.D. Lab Imaging Statement Laboratory radiographic studies reviewed and considered in the medical decision-making. Re-Evaluation MDM Re-Evaluation/Progress #1 Chest Pain MDM Note The patient is resting comfortably and feels better, is alert and in no distress. The repeat examination is unremarkable and benign. The electrocardiogram shows no signs of acute ischemia and the history, exam, diagnostic testing and current condition do not suggest that this patient is having an acute myocardial infarction, significant arrhythmia, unstable angina, esophageal perforation, pulmonary embolism, aortic dissection, pneumothorax, severe pneumonia, sepsis or other significant pathology that would warrant further testing, continued ED treatment, admission, or cardiology or other specialist consultation at this point. The vital signs have been stable. The patient's condition is stable and appropriate for discharge. The patient will pursue further outpatient evaluation with the primary care physician, other designated physician or winding department supervisor. The patient and/or caregivers have expressed a clear and thorough understanding and agree to follow up as instructed. ED Course Medication(s) Ordered Medication(s) Ordered: Central Nervous System Agents Sig/José Miguel Start time Last Medication Dose Route Stop Time Status Admin Lorazepam 2 MG X1ED STA 01/30 2114 DCr 01/30 IV 01/30 Lorazepam 2 MG X1ED STA 01/30 2111 CAN PO 01/31 2112 Morphine Sulfate 4 MG X1ED STA 01/31 1924 DC 01/30 IV 01/30 Aspirin 324 MG X1ED STA 01/30 1830 DC 01/30 PO 01/30 Diagnostic Agents Sig/José Miguel Start time Last Medication Dose Route Stop Time Status Admin Iopamidol 0 .STK-MED ONE 01/30 2113 DC 01/30 .ROUTE 2133 Gastrointestinal Drugs Sig/José Miguel Start time Last Medication Dose Route Stop Time Status Admin Ondansetron HCl 4 MG X1ED STA 01/31 1924 DC 01/30 IV 01/30 Differential Diagnosis )( Differential Diagnosis Acute coronary syndrome, Acute myocardial infarct, Anxiety disorder, Aortic dissection, Aortic stenosis, Asthma exacerbation, Bronchitis, Chest pain, Chest pain, acute, Cholecystitis, Cholelithiasis, Congestive heart failure, Contusion, Costochondritis, Dysrhythmia, Esophageal rupture, Esophagitis, Gastritis, GERD, Gun shot wound chest, Hiatal hernia, Hypertroph cardiomyopathy, Smith[place]-Lynn syndrome, Mitral stenosis, Mitral valve prolapse, Musculoskeletal pain, Myocardial infarction, Myocarditis, Peptic ulcer disease, Pericarditis, Pleurisy, Pneumomediastinum, Pneumonia, Pneumothorax, Pulmonary edema, Pulmonary embolism, Rib fracture, Stab wound chest, Stable angina, Unstable angina Patient Discharge Departure Vital Signs/Condition Vital Signs First Documented: Result Date Time Pulse Ox 98 01/30 1833 B/P 145/90 01/30 1833 B/P Mean 108.4 01/30 1833 Temp 36.9 01/30 1833 Pulse 70 01/30 1833 Resp 17 01/30 1833 O2 Delivery Room air 01/30 2237 Last Documented: Result Date Time Pulse Ox 100 01/30 2237 B/P 149/99 01/30 2237 B/P Mean 115 01/30 2237 O2 Delivery Room air 01/30 2237 Temp 36.7 01/30 2237 Pulse 62 01/30 2237 Resp 16 01/30 2237 All vital signs available at the time of this entry have been reviewed. Clinical Impression Clinical Impression Primary Impression: Chest pain Disposition Decision Discharge )( Discharged to Home Yes )( Time 2208 )( Date 01/30/23 Discharge/Care Plan Patient Instructions ED Chest Pain, Uncertain Cause Referrals Provider Referral: Philip Kinney MD Address: [address] [place] [address] [address] [place] [address] at [address] [facility] #:[id number] END OF REPORT [facility] 2023-01-30 20:23:00 [id number] [facility] PATIENT NAME: TANNER BENDER ADMIT DATE: 01/30/23 ACCOUNT NO: [id number] ROOM NO: AGE: 37 REPORT TYPE: eEKG REPORT SEX: M DATE OF : [birth year] ADMITTING PHYSICIAN: ATTENDING PHYSICIAN: Order: [id number] Test Reason : Test Date/Time Stamp: FriJan 30 2023 20:23:34 Blood Pressure : / mmHG Vent. Rate : 064 BPM Atrial Rate : 064 BPM P-R Int : 112 ms QRS Dur : 082 ms QT Int : 380 ms P-R-T Axes : 042 083 057 degrees QTc Int : 392 ms ADULT CARDIO Confirmed by DANA GUARDADO ([id number]) on 02/06/2023 1:19:34 PM Referred By: Self Referred Confirmed by:DANA COSTA at 1319 PATIENT NAME: TANNER BENDER [facility] 2022-11-16 12:29:00 [facility] ([facility]) Hospitalist Discharge Summary REPORT#:[id number] REPORT STATUS: Signed DATE:11/16/22 TIME: 1229 PATIENT: TANNER BENDER UNIT #: [id number] ROOM/BED: [address] : [birth year] AGE: 36 SEX: M ATTEND: Sheikh MARCELINO Hurtado ADM AUTHOR: Sheikh MARCELINO Hurtado * ALL edits or amendments must be made on the electronic/computer document * General Information Discharge date: 11/12/22 Discharge diagnosis: Abnormal EKG Clean Coronary Arteries Hospital course: Please see Assessment and Plan Free Text DxA P Notes Free text DxA P notes: 36 years old male with significant past medical history of chronic pancreatitis recurrent inguinal hernia came to the hospital for preoperative evaluation found to have abnormal EKG of STEMI, with heart rate of 48/min. Patient underwent cardiac cath and found to have normal coronary arteries with EF 45% Echo done showing ejection fraction 55 to 60% Patient was placed on ICU for observation #Abnormal EKG/STEMI: Underwent cardiac cath, normal coronary arteries Cardiology on board Pain medicine as needed Lovenox as DVT prophylaxis Urine drug screen #chronic pancreatitis: Patient is on Dilaudid, tramadol at home We will resume home medication gradually #Left-sided inguinal hernia Consult surgery for elective repair Full code Patient wants to leave AMA Requesting to stay till seen by MD this morning But patient left AMA according to Nursing Signed paper. Med Rec Med Rec Discharge meds: Continue taking these medications: ALPRAZolam (XANAX) 2 MG TAB 2 MILLIGRAM ORAL THREE TIMES A DAY. as needed for ANXIETY ALBUTEROL (PROAIR DIGIHALER 90 MCG/ACT 0.65 GM) 90 MCG INHALER 2 PUFF INHALATION RT - EVERY 6 HOURS. HYDROmorphone (DILAUDID) 2 MG TAB 1 MILLIGRAM ORAL EVERY 4 HOURS NEEDED. as needed for PAIN SCALE 7-10 ACETAMINOPHEN/CODEINE (TYLENOL WITH CODEINE #3 300/30 MG) 300 MG-30 MG TAB 1 TABLET ORAL EVERY 4 HOURS NEEDED. as needed for ACUTE PAIN Qty = 30 Objective VS/I O Last Documented: Result Date Time Pulse 48 11/12 0801 Pulse Ox 100 11/12 0800 B/P 125/65 11/12 0800 B/P Mean 89 11/12 0800 Resp 29 11/12 0800 Temp 97.4 11/12 0400 O2 Delivery Nasal cannula 11/11 1404 O2 Flow Rate 2 11/11 1404 Discharge Instructions PCP Discharge to: Home/Self Care Additional Discharge Routines: None Quality: Discharge Current Medications Current medication review: I attest that the foregoing medication list in the medical record is true, accurate, and complete to the best of my knowledge. at 1232 RPT #:[id number] END OF REPORT [facility] 2022-11-16 11:59:00 [phone] [facility] PATIENT NAME: TANNER BENDER ADMIT DATE: 11/11/22 ACCOUNT NO: [id number] ROOM NO: [facility] AGE: 36 REPORT TYPE: 360 - QUERY RESPONSE DOCUMENT SEX: M DATE OF : 83 ADMITTING PHYSICIAN:Sheikh MARCELINO Hurtado ATTENDING PHYSICIAN:Sheikh MARCELINO Hurtado Provider Query QUERY TEXT: Condition General 360MD Query related questions should be directed to: [facility] Coding Query Hotline [Based on your medical judgement and above-mentioned clinical indicators, kindly clarify the diagnosis of STEMI as, STEMI was a confirmed diagnosis, STEMI was not a confirmed diagnosis, other more appropriate diagnosis, clinically unable to determine] The patient's Clinical Indicators include: STEMI - ED PHYSICIAN RECORD 11/11/2022 CHEST PAIN - ED PHYSICIAN RECORD 11/11/2022 Acute STEMI - Critical Care Consult Note 11/11/[address]-T changes - CARDIAC CATHETERIZATION 11/11/2022 [address] evidence of any ST-elevation TN - CARDIAC CATHETERIZATION 11/11/2022 Options provided: -- Respond - Create new note now -- Dismiss - Not applicable / Not valid -- Dismiss - Clinically unable to determine / Unknown -- Assign to another provider QUERY RESPONSE: Provider was clinically unable to determine a response for this query Cardiac Cath Normal, NO STEMI Query created by: LUZ JOYCE on 11/14/2022 12:48 AM at 1159 PATIENT NAME: TANNER BENDER [facility] 2022-11-13 19:19:00 [id number] [facility] PATIENT NAME: TANNER BENDER ADMIT DATE: 11/13/22 ACCOUNT NO: [id number] ROOM NO: AGE: 36 REPORT TYPE: OPERATIVE REPORT SEX: M DATE OF : 83 ADMITTING PHYSICIAN: ATTENDING PHYSICIAN:Edu Pan MD OPERATION DATE: 11/13/2022 PREOPERATIVE DIAGNOSIS: Left inguinal hernia. POSTOPERATIVE DIAGNOSIS: Left direct inguinal hernia. OPERATIVE PROCEDURE: Robotic left inguinal hernia repair with mesh. SURGEON: Edu Pan MD ANESTHESIA: General. ANESTHESIOLOGIST: Dr. Bond. EXHIBIT ELECTRICIAN: Dr. Clemente. INDICATIONS: A 36-year-old male with recent development of a bulge after noting a pop while lifting a heavy object. The patient was found to have a left inguinal hernia. He consented for repair. Attendant risks discussed. PROCEDURE FINDINGS: Direct left inguinal hernia. DESCRIPTION OF PROCEDURE: The patient was brought to the OR, intubated. Abdomen was prepped with alcohol and draped in sterile fashion. A supraumbilical incision was made, 8 mm port inserted, insufflation began. Under direct vision, the other ports were placed in the lateral border of the rectus muscle along the same horizontal line. The robot was docked and instruments inserted under direct vision. We identified the inguinal direct hernia on the left side. A peritoneal flap was then created 2 cm above the internal ring, extending medially from the medial umbilical ligament and continued towards the iliac crest laterally. The hernia sac was dissected off the direct space at the Hesselbach triangle. Similarly, the indirect sac was also removed from the cord to the level of iliac crest. We then deployed a 3D polypropylene mesh, 8 x 13 cm into the preperitoneal space covering both direct and indirect space and anchored to the Gunner ligament medially with a 2-0 Vicryl stitch, and anteriorly to the abdominal wall above the iliopubic tract with the same. Hemostasis achieved. The peritoneal flap was closed with running 2-0 V-Loc stitch. All ports were then removed under direct vision. Fascial closure with 0 Vicryl and skin closed with subcuticular stitch. The patient was extubated and transported to recovery room. BLOOD LOSS: 5 mL. PATIENT NAME: TANNER BENDERL Dictated By: Edu Pan MD Date Dictated: 11/13/2022 19:19:02 Date Transcribed: 11/13/2022 21:43:39 DL/VIG/RAG Receipt ID: [id number] Authenticated by Edu Pan MD On 11/17/2022 01:35:46 PM at 0135 PATIENT NAME: TANNER BENDER ROSANA [facility] 2022-11-13 14:53:00 [facility] ([facility]) Brief Op Allan REPORT#:[id number] REPORT STATUS: Signed DATE:11/13/22 TIME: 1453 PATIENT: TANNER BENDER UNIT #: [id number] ROOM/BED: : 84 AGE: 36 SEX: M ATTEND: Edu Pan MD ADM AUTHOR: Edu Pan MD * ALL edits or amendments must be made on the electronic/computer document * Op/Inv Proc Note - Brief Pre-procedure diagnosis: left inguinal hernia Post-procedure diagnosis: same as pre procedure dx Procedures performed: robotic left inguinal hernia repair with mesh Primary Surgeon: Hamilton Print Buyer(s): Bryn Findings: left direct inguinal hernia Complications: none Estimated blood loss in ml's: 4 cc Specimens removed/altered: none at 1509 RPT #:[id number] END OF REPORT [facility] 2022-11-11 16:51:00 [id number] [facility] PATIENT NAME: TANNER BENDER ADMIT DATE: 11/11/22 ACCOUNT NO: [id number] ROOM NO: [facility] AGE: 36 REPORT TYPE: eECHOCARDIOGRAM REPORT SEX: M DATE OF : [birth year] ADMITTING PHYSICIAN:Sheikh Genesis MD ATTENDING PHYSICIAN:Sheikh Gneesis MD *[facility]* [address] [place] [id number] Transthoracic Echocardiogram Patient: Tanner Bender Study Date: 11/11/2022 BP: Location: [facility] URN: [id number] : 1985 Age: 36 Height: 72 in / 182.9 cm Gender: M Weight: 156.2 lb / 71 kg BMI/BSA: 21.2 kg/m 2 / 1.89 m 2 *Ordering Physician: * Leslie Galeas *Interpreting Physician: * Dmitri Watkins MD *Cryptologic Technician Technical: * Keenan Talley Than Indications: STEMI. Study data: Transthoracic echocardiogram. Complete 2D, complete spectral Doppler, and color Doppler. Location: Bedside. Patient status: Inpatient. Patient room number: ER. Study status: Stat. Findings Left ventricle: The cavity size is normal. Wall thickness is mildly increased. Systolic function is normal. The estimated ejection fraction is 55-60%. Wall motion is normal; there are no regional wall motion abnormalities. Left ventricular diastolic function parameters are normal. Right ventricle: The cavity size is normal. Systolic function is normal. Left atrium: The atrium is normal in size. PATIENT NAME: TANNER BENDER Right atrium: The atrium is normal in size. Aorta: Aortic root: The aortic root is normal in size. Aortic valve: The valve is structurally normal. The valve is trileaflet. There is no evidence of stenosis. There is no regurgitation. Mitral valve: The valve is structurally normal. There is no evidence of stenosis. There is mild regurgitation. Tricuspid valve: The valve is structurally normal. There is mild regurgitation. Pulmonic valve: The valve is structurally normal. There is no regurgitation. Pericardium: There is no pericardial effusion. Pulmonary arteries: The main pulmonary artery is normal-sized. Systolic pressure is mildly increased. Systemic veins: Inferior vena cava: The vessel is normal in size. Measurements Left ventricle Value Ref KIMBERLY, LAX 4.3 cm 4.2 - 5.8 ESD, LAX 3.2 cm 2.5 - 4.0 ESD/bsa, LAX 1.7 cm/m 2 1.3 - 2.1 FS, LAX 26 % 25 - 43 PW, ED 1.1 cm 0.6 - 1.0 IVS/PW, ED 0.96 EF 51 % 52 - 72 LVOT Value Ref Diam, S 2.03 cm Area 3.2 cm 2 Peak paolo, S 1.1 m/sec Mean paolo, S 0.72 m/sec VTI, S 21.5 cm Peak grad, S 5 mm Hg Mean grad, S 2 mm Hg SV 70 ml SV/bsa 37 ml/m 2 Ventricular septum Value Ref IVS, ED 1.1 cm 0.6 - 1.0 Right ventricle Value Ref KIMBERLY, LAX 2.5 cm Pressure, S 44 mm Hg Left atrium Value Ref AP dim, ES 2.39 cm 3.00 - 4.00 AP dim, ES MM 1.8 cm 3.0 - 4.0 LA/Ao root ratio, MM 0.59 Aortic valve Value Ref PATIENT NAME: TANNER BENDERL Leaflet sep, MM 1.80 cm Peak v, S 1.17 m/sec Mean v, S 0.79 m/sec VTI, S 23.7 cm Mean grad, S 2.8 mm Hg Peak grad, S 5.5 mm Hg LVOT/AV, VTI ratio 0.91 KELL, VTI 2.94 cm 2 LVOT/AV, Vpeak ratio 0.94 KELL, Vmax 3.05 cm 2 Mitral valve Value Ref E-septal separation 0.5 cm Peak E 0.99 m/sec Peak A 0.55 m/sec Decel time 160 ms Peak grad, D 3.9 mm Hg Peak E/A ratio 1.79 MR peak v 3.75 m/sec Tricuspid valve Value Ref TR peak v 2.7 m/sec <=2.8 Peak RV-RA grad, S 29 mm Hg Aortic root Value Ref Root diam, ED MM 2.97 cm Ascending aorta Value Ref AAo AP diam, S 2.9 cm AAo AP diam/bsa, S 1.5 cm/m 2 Pulmonary artery Value Ref Pressure, S 41.7 mm Hg Systemic veins Value Ref Estimated CVP 15 mm Hg Conclusions Summary: 1. Left ventricle: The cavity size is normal. Wall thickness is mildly increased. Systolic function is normal. The estimated ejection fraction is 55-60%. Wall motion is normal; there are no regional wall motion abnormalities. Left ventricular diastolic function parameters are normal. 2. Pulmonary arteries: Systolic pressure is mildly increased. Prepared and electronically signed by PATIENT NAME: TANNER BENDER Dmitri Watkins MD 11/11/2022 16:51 at 1651 PATIENT NAME: TANNER BENDER [facility] 2022-11-11 16:16:00 [facility] PATIENT NAME: TANNER BENDER ADMIT DATE: 11/11/22 ACCOUNT NO: [id number] ROOM NO: [facility] AGE: 36 REPORT TYPE: CONSULTATION REPORT SEX: M DATE OF : [birth year] ADMITTING PHYSICIAN:Sheikh MARCELINO Hurtado ATTENDING PHYSICIAN:Sheikh MARCELINO Hurtado CONSULTATION DATE: 11/11/2022 CARDIOLOGY CONSULTATION HISTORY OF PRESENT ILLNESS: This consultation is dictated after doing the coronary angiogram. The patient presented with significant chest pain to the emergency room at [facility]. The patient has come to the hospital for preop workup for the left inguinal hernia. While he was in the preoperative holding area, the patient complained of chest pain. The patient was brought to the ER. At this time, because of chest pain, abnormal ST changes, the patient was advised to have coronary angiogram. I saw the patient, though he does not have typical ischemic ST changes, because of significant chest pain, the patient was taken to the cardiac catheterization lab. Coronary arteries are normal. The LVEF is about 45%. The patient did not have any myocardial infarction in the past. The patient's salient features are, the patient had chronic pain syndrome. The patient goes to the pain therapy to primary doctor. They give him morphine two tablets every six hours. The patient also has a history of chronic pancreatitis and the patient had a cholecystectomy 10 years ago ,paatient has some diarrhea, abdominal pain and the patient also had colonoscopy was performed and as per the patient's history, the patient got multiple problems. Father also has polyps. There is no history of hypertension or diabetes mellitus. Clinically, no evidence of congestive heart failure. Clinically, no LV failure. Laboratory evaluation shows at this time, WBC count is normal at 8.1 thousand per cubic mm and hemoglobin 14.8 grams percent, platelets 250,000 per cubic mm and GFR is more than 60 mL per minute. Glucose is 95 mg percent. Hemoglobin A1c is 5.3. Troponin is within normal limits. Radiologic examination performed shows at this time old CT abdomen performed in 2009 and no new radiological findings are here at this time. PHYSICAL EXAMINATION: NEUROLOGIC: The patient is normal. ABDOMEN: Soft. Peripheral pulses are normal. IMPRESSION: PATIENT NAME: TANNER BENDER 1. Chest pain. 2. Normal coronary arteries. 3. Chronic drug abuse. 4. History of chronic pancreatitis. 5. History of gallbladder and appendicectomy, history of polyp present and the patient has got left inguinal hernia. PLAN: I will continue to follow the patient and discuss with the critical care and the nurses. At this time as the patient's blood pressure is normal and the patient does not have any cardiac abnormalities, just continue pain medication as ordered by critical care. Cardiac braxton, I will continue to follow the patient. Dictated By: Tristan Watkins MD Date Dictated: 11/11/2022 16:16:20 Date Transcribed: 11/11/2022 20:32:11 RADHA/CHIN/DORA Receipt ID: [id number] Authenticated and Edited by Dmitri Watkins MD On 12/10/22 6:12:53 PM at 0615 PATIENT NAME: TANNER BENDER [facility] 2022-11-11 16:12:00 [id number] [facility] PATIENT NAME: TANNER BENDER ADMIT DATE: 11/11/22 ACCOUNT NO: [id number] ROOM NO: [facility] AGE: 36 REPORT TYPE: CARDIAC CATHETERIZATION REPORT SEX: M DATE OF : [birth year] ADMITTING PHYSICIAN:Sheikh Genesis MD ATTENDING PHYSICIAN:Sheikh Genesis MD PROCEDURE DATE: HEART CATHETERIZATION REPORT INDICATIONS FOR PROCEDURE: The patient admitted with significant chest pain 10/21, abnormal EKG suggestive of ____ changes. Continuous chest pain. The patient advised to have coronary angiogram and performed a coronary angiogram at an emergency basis. The patient diagnosis of chest pain, nonspecific ST-T changes. No evidence of any ST-elevation TN. A 36-year-old gentleman with no previous history of cardiac issues. The patient has taken plenty of pain medications, including hydromorphone 2 tablets every 4 hours given by pain therapy doctor. He has a history of chronic pancreatitis, and the patient has probably some chronic pain syndrome. Clinically, no evidence of congestive heart failure. The patient not in congestive heart failure. The procedure done at Heart Catheterization Lab at [facility] without conscious sedation and through the right femoral artery using the Gerardo technique. After draping, the patient's sterilized right groin area, I performed the procedure. Right femoral artery was punctured and 6 sheaths were introduced. All the procedure performed of the right femoral artery. CORONARY ANGIOGRAM: Right coronary artery angiogram shows normal right coronary artery, which is a large and dominant. Left coronary arteriogram shows left main artery is normal. LVEF bottom. The patient underwent LV angiogram, which shows LV ejection fraction 45%. LV does not show any evidence of wall motion abnormalities and mild global hypokinesia noted. Left coronary artery, LAD and circumflex artery are normal. There is no obvious significant pericardial effusion noted. Right femoral artery closed with manual compression. The patient at this time is in stable condition. Because of continuing pain the patient may go to IMCU. I will continue to follow the patient. IMPRESSION: No evidence of any coronary artery disease noted at this time, LVEF 45%. Dictated By: Tristan Watkins MD PATIENT NAME: TANNRE BENDER Date Dictated: 11/11/2022 16:12:08 Date Transcribed: 11/11/2022 17:17:34 RADHA/MAURICE/ROSA/DARRELL Receipt ID: [id number] Authenticated by Dmitri Watkins MD On 12/10/2022 06:11:52 PM at 0611 PATIENT NAME: TANNER BENDER [facility] 2022-11-11 13:48:00 [id number] [facility] PATIENT NAME: TANNER BENDER ADMIT DATE: 11/11/22 ACCOUNT NO: [id number] ROOM NO: [facility] AGE: 36 REPORT TYPE: eEKG REPORT SEX: M DATE OF : [birth year] ADMITTING PHYSICIAN:Sheikh Genesis MD ATTENDING PHYSICIAN:Sheikh Genesis MD Order: [id number] Test Reason : CHEST PAIN Test Date/Time Stamp: FriNov 11 2022 13:48:07 Blood Pressure : / mmHG Vent. Rate : 047 BPM Atrial Rate : 047 BPM P-R Int : 132 ms QRS Dur : 092 ms QT Int : 422 ms P-R-T Axes : 000 082 066 degrees QTc Int : 373 ms Sinus bradycardia Septal infarct , age undetermined Abnormal ECG Confirmed by ESTRELLITA MATUTE MD ([id number]) on 11/12/2022 8:56:48 AM Referred By: Self Referred Confirmed by:ESTRELLITA MATUTE MD at 0856 PATIENT NAME: TANNER BENDER [facility] 2022-11-11 13:15:00 [facility] ([facility]) Hospitalist History Physical REPORT#:[id number] REPORT STATUS: Signed DATE:11/11/22 TIME: 1315 PATIENT: TANNER BENDER UNIT #: [id number] ROOM/BED: [address] : [birth year] AGE: 36 SEX: M ATTEND: Sheikh MARCELINO Hurtado ADM AUTHOR: Sheikh MARCELINO Hurtado * ALL edits or amendments must be made on the electronic/computer document * History of Present Illness HPI Chief complaint: Preop evaluation abnormal EKG PCP: PCP: No Primary or Family Physician HPI: 36 years old male with past medical history of chronic pancreatitis, recurrent inguinal hernia came to the hospital for preoperative evaluation. Found to have abnormal EKG of STEMI with bradycardia.patient reported he has on and off chest pain for last 2 weeks denies any sweating diaphoresis nausea vomiting shortness of breath palpitation recent fever or sick contacts or travel Consulted with cardiology and checked troponin level which was negative chest x- ray unremarkable patient was sent to cardiac Online Merchandising Manager underwent left heart cath and found to have normal coronary arteries with ejection fraction 45%. Postoperatively patient was placed on ICU for further management and observation History Past Medical Surgical Hx Additional medical history: Pancreatitis Family History Additional family history: n/c Social History Alcohol use: Denies EtOH use Drug use: Denies recreational drugs Smoking status for patients 13 years old or older: Unknown,if ever smoked Other social history: Primary family support Additional social history: family hx- unknown Medication/Allergy-Vaccine Hx Allergies: Coded Allergies: Penicillins (Severe, THROAT SWELLS UP 12/24/21) Review of Systems Constitutional: Denies: chills, fatigue, fever, generalized weakness, lethargy, malaise, recent wt loss, other. Skin: Denies: abrasion, bruising, contusion, diaphoresis, ecchymosis, itching, laceration, rash, swelling, other. Allergy/Immun: Denies: allergic reaction, anaphylaxis, hives, itching, rhinorrhea, sneezing, other. Eyes: Denies: redness, discharge, visual loss/blurred, itching, diplopia, eye pain, photophobia, swelling, other. ENT: Denies: ear drainage, ear ringing, earache, hearing loss, mouth pain, nasal congestion, nose bleeding, sinus problem, sore throat, throat pain, throat swelling, tongue pain, tongue swelling, toothache, voice change, other. Respiratory: Denies: PEREZ (dyspnea on exertion), hemoptysis, non productive cough, parox nocturnal dyspnea, pleurisy, pleuritic pain, pneumonia, productive cough (sputum ), SOB, wheezing, other. Cardiovascular: Reports: chest pain. Denies: PEREZ (dyspnea on exertion), edema, orthopnea, palpitations, parox nocturnal dyspnea, other. GI: Denies: abdominal pain (left sided inguinal hernia), anorexia, constipation, diarrhea, dysphagia, GERD, hematemesis, hematochezia, hiatal hernia, melena, nausea, rectal pain, vomiting, other. Musculoskeletal: Denies: arthritis, extremity pain, extremity swelling, joint pain, joint swelling, lumbar pain, myalgias, neck pain, thoracic pain, other. Heme: Denies: adenopathy, bleeding, bruising, petechiae, other. Neuro: Denies: bladder dysfunction, bowel dysfunction, change in LOC, confusion, dizziness, focal weakness, gait problem, headache, lightheaded, numbness, seizure, slurred speech, spinning sensation, syncope, unable to speak, vision change, weakness, other. Psych: Denies: agitation, anxiety, auditory hallucination, change in mental status, confusion, delusional, depression, homicidal ideation, hostile, insomnia, stress , suicidal ideation, visual hallucination, other. OBJECTIVE VS/I O: Vital Signs Date Temp Pulse Resp B/P B/P Mean Pulse Ox FiO2 11/11 98.1 43-61 12-48 96-168/57-97 74-118 93-100 Last Documented: Result Date Time Pulse 44 11/11 1833 Resp 17 11/11 1833 B/P 119/70 11/11 1830 B/P Mean 89 11/11 1830 Pulse Ox 99 11/11 1530 O2 Delivery Nasal cannula 11/11 1404 O2 Flow Rate 2 11/11 1404 Temp 98.1 11/11 1111 Patient Weight and BMI Weight (kg): 70.455 BMI: 21.1 General appearance: alert, awake, oriented, no acute distress, pleasant, conversational, mental status normal Head/Eyes: atraumatic, clear cornea, EOMI, normal conjunctiva/sclera, normal eyelids/periorb., normal fundi, normocephalic ENT: moist mucosal membranes, normal ear left, normal nose, normal pharynx, normal sinus Neck: full range of motion, non-tender, normal thyroid, supple/no meningismus, no JVD, no masses or swelling Cardiovascular: normal capillary refill, normal heart sounds, regular rate rhythm, no ectopy, no gallop, no heave Respiratory: aerating well, clear to auscultation, symmetric expansion, no distress Abdomen: non-tender, normal bowel sounds, soft, no distention, no guarding, no hernia, no mass/organomegaly Extremities: moves all, normal capillary refill, normal range of motion, no calf tenderness, no clubbing, no cyanosis, no edema Musculoskeletal: normal inspection, painless range of motion, straight leg raise neg, no midline vertebral tend, no paraspinal tenderness Neuro/BOBBIN DISKER: alert, oriented X 3, CNII-XII intact, normal speech, reflexes equal bilat Diagnosis, Assessment Plan Free Text A P: 36 years old male with significant past medical history of chronic pancreatitis recurrent inguinal hernia came to the hospital for preoperative evaluation found to have abnormal EKG of STEMI, with heart rate of 48/min. Patient underwent cardiac cath and found to have normal coronary arteries with EF 45% Echo done showing ejection fraction 55 to 60% Patient was placed on ICU for observation #Abnormal EKG/STEMI: Underwent cardiac cath, normal coronary arteries Cardiology on board Pain medicine as needed Lovenox as DVT prophylaxis Urine drug screen #chronic pancreatitis: Patient is on Dilaudid, tramadol at home We will resume home medication gradually #Left-sided inguinal hernia Consult surgery for elective repair Full code Quality: Gen Med Crit Care VTE Prophylaxis VTE prophylaxis initiated: yes (lovenox) Current Medications Current medication review: I attest that the foregoing medication list in the medical record is true, accurate, and complete to the best of my knowledge. at 2000 RPT #:[id number] END OF REPORT [facility] 2022-11-11 11:59:00 [facility] ([facility]) Critical Care Consult Note REPORT#:[id number] REPORT STATUS: Signed DATE:11/11/22 TIME: 1159 PATIENT: TANNER BENDER UNIT #: [id number] ROOM/BED: [facility]-A : 84 AGE: 36 SEX: M ATTEND: Sheikh MARCELINO Hurtado ADM AUTHOR: Leslie Galeas NP * ALL edits or amendments must be made on the electronic/computer document * History of Present Illness HPI Requesting clinician: Dr. Dick Reason for consult: STEMI Chief complaint: Chest pain - STEMI HPI: Patient is a 36-year-old male with pmhx of pancreatitis who presented to [facility] 11/11 for hernia repair pre op. EKG with STEMI. Referred to ER then taken to medical laboratory scientist. Coronary arteries without significant disease. EF 45%. He is admitted to ICU for continuation of care. Hx Obtained From Patient History - Adult longitudinal Past medical history: Reports: Pancreatitis. Additional medical history: Pancreatitis Past surgical history: Denies: Abdominal surgery. Additional family history: n/c Alcohol use: Denies EtOH use Drug use: Denies recreational drugs Smoking status for patients 13 years old or older: Unknown,if ever smoked Other social history: Primary family support Additional social history: family hx- unknown Allergies: Coded Allergies: Penicillins (Severe, THROAT SWELLS UP 12/24/21) Review of Systems Respiratory: Denies: PERZE (dyspnea on exertion), SOB. Cardiovascular: Reports: chest pain. Denies: edema. Musculoskeletal: Other musculoskeletal: Reports: lumbar pain. All systems rev neg: except as marked Objective Physical Exam VS/I O: Last Documented: Result Date Time Pulse Ox 100 11/11 1133 B/P 165/93 11/11 1133 B/P Mean 117 11/11 1133 Pulse 54 11/11 1133 Resp 16 11/11 1133 Temp 36.7 11/11 1111 Patient Weight and BMI Weight (kg): 70.455 BMI: 21.1 Medications: Active Meds + DC'd Last 24 Hrs Mupirocin (BACTROBAN 2% OINTMENT) 1 APPLIC BID NASAL (UNV) Morphine Sulfate (morphine SULFATE) 0 .STK-MED ONE .ROUTE (DCr) Nitroglycerin (NITROQUICK) 0.4 MG Q5M PRN PRN SL Heparin Sodium (HEPARIN SODIUM in 0.9% NACL) 1,500 ML .STK-MED ONE IV ( DC) Iopamidol (ISOVUE-370) 0 .STK-MED ONE .ROUTE (DC) Fentanyl Citrate (SUBLIMAZE INJ. 2ML) 0 .STK-MED ONE .ROUTE (DCr) Heparin Sodium (heparin 10,000 units/1 mL) 0 .STK-MED ONE .ROUTE (DC) Lidocaine HCl (LIDOCAINE HCL 2%) 0 .STK-MED ONE .ROUTE (DC) Midazolam HCl (VERSED) 0 .STK-MED ONE .ROUTE (DCr) Nitroglycerin (NITROQUICK) 0 .STK-MED ONE SL (DC) Aspirin (ASPIRIN) 324 MG X1ED STA PO (DC) Aspirin (ECOTRIN) 324 MG X1ED STA PO (CAN) General appearance: alert, awake Head/Eyes: atraumatic, clear cornea, EOMI, normal conjunctiva/sclera, normal eyelids/periorb., normocephalic, PERRL ENT: normal dentition, normal ear left, normal ear right, normal nose, normal pharynx, normal sinus Neck: full range of motion, non-tender, normal thyroid, supple/no meningismus, no bruit/NL carotids, no JVD, no masses or swelling Cardiovascular: normal capillary refill, regular rate and rhythm Respiratory: clear to auscultation, no distress Abdomen: soft, non-tender, no distention, no guarding, no rebound Extremities: moves all, normal capillary refill, normal range of motion, no edema Musculoskeletal: normal inspection Neuro/BOBBIN DISKER: alert, oriented X 3 Skin: dry, intact Lymphatics: neck normal Results Findings/Data: Laboratory Tests 11/11/22 1112: [Embedded Image Not Available] Laboratory Tests 11/11 111 Chemistry Sodium (136 - 145 mmol/L) 137 Potassium (3.5 - 5.1 mmol/L) 4.7 Chloride (98 - 107 mmol/L) 106.0 Carbon Dioxide (21 - 32 mmol/L) 27.0 Anion Gap (10 - 20) 8.7 L BUN (7 - 18 mg/dL) 6 L Creatinine (0.7 - 1.3 mg/dL) 1.00 Glomerular Filtr Rate (>=60 mL/min) > 60 BUN/Creatinine Ratio (10 - 20) 6.3 L Glucose (74 - 106 mg/dL) 95 Calcium (8.5 - 10.1 mg/dL) 9.5 Total Bilirubin (0.0 - 1.0 mg/dL) 0.70 AST (15 - 37 IUnit/L) 20 ALT (12 - 78 IUnit/L) 14 Total Alk Phosphatase (45 - 117 IUnit/L) 64 Troponin I (0 - 54 pg/mL) <4.0 Total Protein (6.4 - 8.2 gram/dL) 7.8 Albumin (3.4 - 5.0 g/dL) 4.6 Globulin (2.7 - 4.2 gram/dL) 3.2 Albumin/Globulin Ratio (0.75 - 1.50) 1.4 Laboratory Tests 11/11 1112 Hematology WBC (4.5 - 12.5 K/mm3) 8.1 RBC (4.0 - 5.8 mill/mm3) 4.85 Hgb (13.0 - 17.5 gram/dL) 14.8 Hct (42.0 - 52.0 %) 45.3 MCV (80 - 98 fL) 93.4 MCH (27.0 - 33.0 picogram) 30.5 MCHC (33.0 - 36.0 gram/dL) 32.7 L RDW (11.6 - 16.2 %) 13.2 RDW Std Deviation (37.0 - 51.0 fL) 45.3 Plt Count (150 - 450 K/mm3) 254 MPV (6.7 - 11.0 fL) 10.9 Neut % (Auto) (39.0 - 69.0 %) 42.1 Lymph % (Auto) (25.0 - 55.0 %) 45.3 Randolph % (Auto) (0.0 - 10.0 %) 6.3 Eos % (Auto) (0.0 - 5.0 %) 5.1 H Baso % (Auto) (0.0 - 1.0 %) 1.1 H Neut # (Auto) (1.8 - 7.7 K/mm3) 3.38 Lymph # (Auto) (1.0 - 5.0 K/mm3) 3.65 Randolph # (Auto) (0 - 0.8 K/mm3) 0.51 Eos # (Auto) (0.0 - 0.5 K/mm3) 0.41 Baso # (Auto) (0.0 - 0.2 K/mm3) 0.09 Nucleated RBC % (0 - 0 %) 0.0 Nucleated RBCs # (Man) (0.0 - 0.1 K/mm3) 0.00 Diagnosis, Assessment Plan Diagnosis, Assessment Plan Free Text A P: History of Present Illness: Patient is a 36-year-old male with pmhx of pancreatitis who presented to [facility] 11/11 for hernia repair pre op. EKG with STEMI. Referred to ER then taken to medical laboratory scientist. Coronary arteries without significant disease. EF 45%. He is admitted to ICU for continuation of care. Hospital Course: 11/11/22 - Admitted to ICU with STEMI. Coronary arteries without significant disease. EF 45%. R groin sheath in place, to be pulled per protocol. Active Problems: Acute STEMI - EKG per ED ST segment elevation in anterior leads - cardiology consulted - s/p C - no significant cad 11/11 - follow post cath orders - on ASA - check HgbA1C and Lipid profile - STAT Echo pending Chronic pain - Pain Management Electrolyte and fluid imbalance - Trend Cr and follow UOP - Replete electrolytes per protocol Comorbidities: Opoid abuse ICU Patient Safety Checklist: - Diet: cardiac - Bowel regimen: Senna/Colace - Accuchecks Q: q am - Antibiotics: na - Home meds resumed: except - Ulcer prophylaxis (discontinue if on diet): - DVT prophylaxis: SCD, lovenox - Oneil: - Lines: PIV - Wounds or pressure ulcer present on admission: - Plan of care discussed with next patient - Code status: Full code - Disposition: Tele Critical care time: 35 minutes, excluding procedures, was spent directly evaluating the patient at the bedside, interpreting labs and imaging, ordering new labs and medications, and discussing the case with the ICU multidisciplinary team, consultants and admitting teams. at [phone] at 1649 [facility] #:[id number] END OF REPORT [facility] 2022-11-11 11:28:00 [phone] [facility] PATIENT NAME: TANNER BENDER ADMIT DATE: 11/11/22 ACCOUNT NO: [id number] ROOM NO: [facility] AGE: 36 REPORT TYPE: eEKG REPORT SEX: M DATE OF : [birth year] ADMITTING PHYSICIAN:Sheikh Genesis MD ATTENDING PHYSICIAN:Sheikh Genesis MD Order: [id number] Test Reason : Test Date/Time Stamp: FriNov 11 2022 11:28:06 Blood Pressure : 168/088 mmHG Vent. Rate : 052 BPM Atrial Rate : 052 BPM P-R Int : 100 ms QRS Dur : 094 ms QT Int : 406 ms P-R-T Axes : 023 085 040 degrees QTc Int : 377 ms Sinus bradycardia with short OK Voltage criteria for left ventricular hypertrophy ST elevation, consider anterolateral injury or acute infarct ST elevation, consider inferior injury or acute infarct ACUTE TN / STEMI Abnormal ECG Confirmed by ESTRELLITA MATUTE MD ([id number]) on 11/12/2022 9:00:08 AM Referred By: Self Referred Confirmed by:ESTRELLITA MATUTE MD at 0900 PATIENT NAME: TANNER BENDER [facility] 2022-11-11 11:14:00 [id number] [facility] PATIENT NAME: TANNER BENDER ADMIT DATE: 11/11/22 ACCOUNT NO: [id number] ROOM NO: V.S01 AGE: 36 REPORT TYPE: eEKG REPORT SEX: M DATE OF : [birth year] ADMITTING PHYSICIAN:Sheikh Genesis MD ATTENDING PHYSICIAN:Sheikh Genesis MD Order: [id number] Test Reason : CHEST PAIN Test Date/Time Stamp: FriNov 11 2022 11:14:28 Blood Pressure : 161/097 mmHG Vent. Rate : 050 BPM Atrial Rate : 050 BPM P-R Int : 136 ms QRS Dur : 098 ms QT Int : 416 ms P-R-T Axes : 022 085 041 degrees QTc Int : 379 ms Sinus bradycardia Voltage criteria for left ventricular hypertrophy Early repolarization Abnormal ECG Confirmed by ESTRELLITA MATUTE MD ([id number]) on 11/12/2022 9:00:36 AM Referred By: Self Referred Confirmed by:ESTRELLITA MATUTE MD at 0900 PATIENT NAME: TANNER BENDER [facility] 2022-11-11 11:10:00 [facility] ([facility]) EMERGENCY PROVIDER REPORT REPORT#:[id number] REPORT STATUS: Signed DATE:11/11/22 TIME: 1110 PATIENT: TANNER BENDER UNIT #: [id number] ROOM/BED: AGE: 36 SEX: M PCP PHYS: No Primary or Family Physician SERVICE AUTHOR: Tj Dick MD * ALL edits or amendments must be made on the electronic/computer document * HPI-General Illness Free Text HPI Notes Free Text HPI Notes 36-year-old male presented to the hospital for preop evaluation for hernia repair. During the work-up he had an EKG which showed possible ST elevations in lateral lead. He was referred to the ER immediately. Patient also reports he has had chest pain that is constant for the past 2 weeks. Denies any exertional symptoms. No shortness of breath or coughing. No chest pressure no fevers or chills. No leg swelling. Patient smokes. General Initial Greet Date/Time 11/11/22 1109 Presentation Chief Complaint Chest pain Review of Systems Free Text ROS Notes Free Text ROS Notes Gen - No Fever, No chills Eyes - No Vision Change, No Discharge ENT - No Sore Throat, No Rhinorrhea Neck - No Pain, No Injury Lungs - No Cough, No SOB Heart - Chest Pain for past 2 weeks, No Palpitations Abd - No nausea, No Vomiting, No Diarrhea, right inguinal hernia - No Hematuria, No Dysuria Back - No Pain, No Injury Ext - No Injury, No Pain Skin - No Rash, No Laceration Lymph - No swelling, No Edema Neuro - No Weakness, No Numbness Past Medical History - Adult Stated Complaint CHEST PAIN, STEMI Allergies Coded Allergies: Penicillins (Severe, THROAT SWELLS UP 12/24/21) Home Medications Discontinued Scripts CAPSAICIN (CAPSAICIN 0.1%) 1 APPLIC TOPICAL DAILY CAPSAICIN (CAPSAICIN 0.1%) 1 APPLIC TOPICAL DAILY #42.5 GM Prov: 11/01/22 DC: 11/11/22 1017 Changed since prior admit Reported Medications ALPRAZolam (XANAX) 2 MG PO TID PRN ANXIETY ALBUTEROL (PROAIR DIGIHALER 90 MCG/ACT 0.65 GM) 2 PUFF INH RTQ6H Discontinued Reported Medications ONDANSETRON (ZOFRAN) 4 MG PO Q6H PRN PRN NAUSEA/VOMITING AMYLASE/LIPASE/PROTEA 120,000/24,000/76,000 U (CREON 24) 24,000 UNITS PO TID MEALS HYDROmorphone (DILAUDID) 4 MG PO Q4H PRN PRN PAIN SCALE 7-10 Past Medical History: Reports: Pancreatitis. Additional Medical History Pancreatitis Past Surgical History: Denies: Abdominal surgery. Additional Family History n/c Alcohol Use Denies EtOH use Drug Use Denies recreational drugs Other Social History Primary family support Additional Social History family hx- unknown Physical Exam Vital Signs Vital Signs First Documented: Result Date Time Pulse Ox 100 11/11 1111 B/P 161/97 11/11 1111 B/P Mean 118 11/11 1111 Temp 36.7 11/11 1111 Pulse 50 11/11 1111 Resp 16 11/11 1111 Last Documented: Result Date Time Pulse Ox 100 11/11 1133 B/P 165/93 11/11 1133 B/P Mean 117 11/11 1133 Pulse 54 11/11 1133 Resp 16 11/11 1133 Temp 36.7 11/11 1111 Review of Vital Signs Reviewed Free Text PE Notes Free Text PE Notes Gen - Awake, Alert, Cooperative, no acute distress, in no pain Head - NCAT, Normacephalic Eyes - EOMI, No Discharge, No Erythema ENT - Clear Oropharynx, Normal Voice Neck - AFROM, No Tenderness Chest - Nontender, Normal Movement Lungs - Clear Bilaterally, Good Airflow, No Tachypnea Heart - RRR, No Murmurs, Normal Distal Cap Refill, No Edema Abd - Soft, NT, ND, No masses Back - No CVAT, No Midline Tenderness Skin - Warm, Dry, No Rashes, No Laceration Ext - AFROM, No Injury, Neuro - Moves all Extremities, Sensation grossly intact Interpretation Diagnostics Lab Results Interpretation Results Laboratory Tests 11/11/22 111: [Embedded Image Not Available] Laboratory Tests: 11/12 1111 Hematology WBC (4.5 - 12.5 K/mm3) 8.1 RBC (4.0 - 5.8 mill/mm3) 4.85 Hgb (13.0 - 17.5 gram/dL) 14.8 Hct (42.0 - 52.0 %) 45.3 MCV (80 - 98 fL) 93.4 MCH (27.0 - 33.0 picogram) 30.5 MCHC (33.0 - 36.0 gram/dL) 32.7 L RDW (11.6 - 16.2 %) 13.2 RDW Std Deviation (37.0 - 51.0 fL) 45.3 Plt Count (150 - 450 K/mm3) 254 MPV (6.7 - 11.0 fL) 10.9 Neut % (Auto) (39.0 - 69.0 %) 42.1 Lymph % (Auto) (25.0 - 55.0 %) 45.3 Randolph % (Auto) (0.0 - 10.0 %) 6.3 Eos % (Auto) (0.0 - 5.0 %) 5.1 H Baso % (Auto) (0.0 - 1.0 %) 1.1 H Neut # (Auto) (1.8 - 7.7 K/mm3) 3.38 Lymph # (Auto) (1.0 - 5.0 K/mm3) 3.65 Randolph # (Auto) (0 - 0.8 K/mm3) 0.51 Eos # (Auto) (0.0 - 0.5 K/mm3) 0.41 Baso # (Auto) (0.0 - 0.2 K/mm3) 0.09 Nucleated RBC % (0 - 0 %) 0.0 Nucleated RBCs # (Man) (0.0 - 0.1 K/mm3) 0.00 Re-Evaluation MDM Free Text MDM Notes Free Text MDM Notes ddx - STEMI, NONq TN, Unstable angina, PE ED Course Medication(s) Ordered Medication(s) Ordered: Blood Formation,Coagulation Sig/José Miguel Start time Last Medication Dose Route Stop Time Status Admin Heparin Sodium 1,500 ML .STK-MED ONE 11/11 1126 DC IV Heparin Sodium 0 .STK-MED ONE 11/11 1126 DC .ROUTE Cardiovascular Drugs Sig/José Miguel Start time Last Medication Dose Route Stop Time Status Admin Nitroglycerin 0.4 MG Q5M PRN PRN 11/11 1130 AC SL 11/12 1023 Lidocaine HCl 0 .STK-MED ONE 11/11 1126 DC .ROUTE Nitroglycerin 0 .STK-MED ONE 11/11 1123 DC 11/11 SL 1125 Central Nervous System Agents Sig/José Miguel Start time Last Medication Dose Route Stop Time Status Admin Morphine Sulfate 0 .STK-MED ONE 11/11 1141 DCr .ROUTE Fentanyl Citrate 0 .STK-MED ONE 11/11 1126 DC .ROUTE Midazolam HCl 0 .STK-MED ONE 11/11 1126 DCr .ROUTE Aspirin 324 MG X1ED STA 11/11 1119 DC 11/11 PO 11/11 1120 1124 Aspirin 324 MG X1ED STA 11/11 1109 CAN PO 11/11 1110 Diagnostic Agents Sig/José Miguel Start time Last Medication Dose Route Stop Time Status Admin Iopamidol 0 .STK-MED ONE 11/11 1127 DC .ROUTE Skin And Mucous Membrane Agent Sig/José Miguel Start time Last Medication Dose Route Stop Time Status Admin Mupirocin 1 APPLIC BID 11/11 1700 UNV NASAL 11/16 0901 MDM-Independent Interpretation My ECG Interpretation Sinus bradycardia at a rate of 46, lateral ST segments with upsloping ST segments and notching, peaked T waves on the lateral leads. Abnormal EKG. Repeat EKG with increased ST segments elevations in 4 5 and 6 and increasing peaking of the T waves in 3 through 6 and on anterior leads. Could be Consistent with hyperacute T waves. MDM-Discussion Discussed With/What Discussed w Dr. Machado. Feels pt is likely having a stuttering or nonq mi. Will take to medical laboratory scientist. Discussed with Nuha in the ICU. MDM-Treatment/Evaluation ED Course Absent symptoms consistent with an TN and notching, the EK could just indicate chronic changes. However bradycardia and ST segments are concerning. Will evaluate for potential subacute TN and closely monitor. Repeat EKG showed marked increase in the peaking of the T waves and patient stated that he began having new back discomfort. Pt may be having an acute or stuttering infarct. Pain is increased in ER. Pt has no Q waves. Discussed the case with Dr. Watkins and Dr. Nicholson Patient Discharge Departure Vital Signs/Condition Vital Signs First Documented: Result Date Time Pulse Ox 100 11/11 1111 B/P 161/97 11/11 1111 B/P Mean 118 11/11 1111 Temp 36.7 11/11 1111 Pulse 50 11/11 1111 Resp 16 11/11 1111 Last Documented: Result Date Time Pulse Ox 100 11/11 1133 B/P 165/93 11/11 1133 B/P Mean 117 11/11 1133 Pulse 54 11/11 1133 Resp 16 11/11 1133 Temp 36.7 11/11 1111 All vital signs available at the time of this entry have been reviewed. Condition Critical Clinical Impression Clinical Impression Primary Impression: Myocardial infarction Disposition Decision Hospitalize Hosp Physician Name Arianna Nicholson MD )( Accepts Hospitalization Yes )( Reason for Hospitalization TN )( Accepted Time 1140 )( Accepted Date 11/11/22 Call Information will see patient Discharge/Care Plan Counseled Regarding Diagnosis, Need for admission Critical Care Time Spent (minutes): 35 Services Performed Patient management by me, Time spent at bedside, Reviewing test results, Reviewing imaging, Discussing patient care, Documentation in record Separately billable procedures excluded from time. Patient was critically ill due to: TN My treatment and management were: initiation of stemi protocol and mgmt. CC Note 1 Total critical care time [] minutes. Total critical care time documented does not include time spent on separately billed procedures or the services of residents, students, nurses or physician assistants. I personally saw and examined the patient. I have reviewed all diagnostic interpretations and treatment plans as written. I was present for the cristobal portions of any procedures performed and the inclusive time noted in any critical care statement. Critical care time includes patient management by me, time spent at the patients bedside, time to review lab and imaging results, discussing patient care, documentation in the medical record, and time spent with the family or caregiver. CC Note 2 The high probability of sudden, clinically significant deterioration in the patient's condition required the highest level of my preparedness to intervene urgently. The services I provided to this patient were to treat and/or prevent clinically significant deterioration that could result in severe disability or . Services included the following: chart data review, reviewing nursing notes and/ or old charts, documentation time, senior solutions workflow consultant collaboration regarding findings and treatment options, medication orders and management, direct patient care, re -evaluations, vital sign assessments and ordering, interpreting and reviewing diagnostic studies/lab tests. Aggregate critical care time was [] minutes, which includes only time during which I was engaged in work directly related to the patient's care, as described above, whether at the bedside or elsewhere in the Emergency Department. It did not include time spent performing other reported procedures or the services of residents, students, nurses or physician assistants. at 1154 RPT #:[id number] END OF REPORT [facility] 2022-11-11 10:48:00 [id number] [facility] PATIENT NAME: TANNER BENDER ADMIT DATE: ACCOUNT NO: [id number] ROOM NO: AGE: 36 REPORT TYPE: eEKG REPORT SEX: M DATE OF : [birth year] ADMITTING PHYSICIAN: ATTENDING PHYSICIAN:Edu Pan MD Order: [id number] Test Reason : PRE OP Test Date/Time Stamp: FriNov 11 2022 10:48:16 Blood Pressure : / mmHG Vent. Rate : 044 BPM Atrial Rate : 044 BPM P-R Int : 136 ms QRS Dur : 102 ms QT Int : 418 ms P-R-T Axes : 012 081 065 degrees QTc Int : 357 ms Marked sinus bradycardia Voltage criteria for left ventricular hypertrophy Early repolarization Abnormal ECG Confirmed by ESTRELLITA MATUTE MD ([id number]) on 11/12/2022 9:01:10 AM Referred By: Edu Pan Confirmed by:ESTRELLITA MATUTE MD at 0901 PATIENT NAME: TANNER BENDER [facility] 2022-10-31 21:29:00 [facility] ([facility]) EMERGENCY PROVIDER REPORT REPORT#:[id number] REPORT STATUS: Signed DATE:10/31/22 TIME: 2128 PATIENT: TANNER BENDER UNIT #: [id number] ROOM/BED: AGE: 36 SEX: M PCP PHYS: Gonzalez Wan MD SERVICE AUTHOR: Jarett Frazier * ALL edits or amendments must be made on the electronic/computer document * Jarett Frazier 10/31/222128: HPI-Abd Pain M Under 40 Free Text HPI Notes Free Text HPI Notes 36-year-old male with history of chronic pancreatitis presented to this ED yesterday with left upper quadrant pain x1 week, nausea, vomited undigested food products x3 today. Patient reports feels like his pancreatitis flare. Patient left AMA due to long wait time, here for no improvement. Took Mason, Zofran, Phenergan today without relief. General Confirmed Patient Yes Initial Greet Date/Time 10/31/222114 Presentation Chief Complaint Abdominal pain, Nausea, Vomiting mild Hx Obtained From Patient, Prior medical records Sudden in Onset? No Onset Occurred Days ago Context Recent Healthcare Recent doctor visit Risk-Abd Pain M Under 40 )( Torsion Risk factors reviewed Review of Systems ROS Statements All systems rev neg except as marked. Focused Review of Systems Constitutional Denies: Chills, Fever, Lethargy. Respiratory Denies: Cough, non-productive, Cough, productive, Shortness of breath. Cardiovascular Denies: Chest pain, Syncope. GI Reports: Abdominal pain, Nausea, Vomiting. Male Denies: Flank pain, Testicular pain. Musculoskeletal Denies: Back pain, Extremity pain. Past Medical History - Adult Stated Complaint ABD PAIN VOMITING DIARRHEA Allergies Coded Allergies: Penicillins (Severe, THROAT SWELLS UP 12/24/21) Review of Nursing Notes Triage notes reviewed Past Surgical History: Denies: Abdominal surgery. Physical Exam Vital Signs Vital Signs First Documented: Result Date Time Pulse Ox 97 10/31 2137 B/P 152/71 10/31 2137 B/P Mean 98 10/31 2137 O2 Delivery Room air 10/31 2137 Temp 36.9 10/31 2137 Pulse 70 10/31 2137 Resp 18 10/31 2137 Last Documented: Result Date Time Pulse Ox 98 11/018 B/P 142/73 11/02 147 B/P Mean 96 11/02 147 O2 Delivery Room air 11/02 147 Temp 36.9 11/02 147 Pulse 73 11/02 147 Resp 16 11/02 147 Review of Vital Signs Reviewed Focused PE General/Const General/Const Awake, Alert, Well appearing MS Head Head Normocephalic Eyes Eyes PERRL Ears/Nose/Throat Ears/Nose/Throat Airway patent, Mucous membranes moist, Pharynx NL Resp/Chest Respiratory/Chest Breath sounds NL, Breath sounds = bilat, No respiratory distress, No rales, No rhonchi, No wheezing Cardiovascular Cardiovascular Heart rate NL, Regular rhythm, Heart sounds NL, Peripheral circulation NL Abdomen/GI Abdomen/GI Soft Tenderness/Guarding/Rebound Tender LUQ. MS Back Back Inspection NL, Non-tender, No CVA tenderness Skin Skin Color NL, Warm, Dry, Turgor NL Genitourinary General Exam deferred Rectum Rectum/Perineum Exam deferred Neurologic Neurologic Oriented X3, Speech NL, No motor deficits, No sensory deficits Interpretation Diagnostics Lab Results Interpretation Results Laboratory Tests 10/31/222143: [Embedded Image Not Available] Laboratory Tests: 07/20 2144 Chemistry Sodium (136 - 145 mmol/L) 143 Potassium (3.5 - 5.1 mmol/L) 4.0 Chloride (98 - 107 mmol/L) 107.0 Carbon Dioxide (21 - 32 mmol/L) 26.0 Anion Gap (10 - 20) 14.0 BUN (7 - 18 mg/dL) 9 Creatinine (0.7 - 1.3 mg/dL) 1.10 Glomerular Filtr Rate (>=60 mL/min) > 60 BUN/Creatinine Ratio (10 - 20) 8.1 L Glucose (74 - 106 mg/dL) 94 Calcium (8.5 - 10.1 mg/dL) 9.5 Total Bilirubin (0.0 - 1.0 mg/dL) 1.20 H Direct Bilirubin (0.0 - 0.20 mg/dL) 0.40 H AST (15 - 37 IUnit/L) 18 ALT (12 - 78 IUnit/L) 19 Total Alk Phosphatase (45 - 117 IUnit/L) 58 Total Protein (6.4 - 8.2 gram/dL) 6.9 Albumin (3.4 - 5.0 g/dL) 3.9 Globulin (2.7 - 4.2 gram/dL) 3.0 Albumin/Globulin Ratio (0.75 - 1.50) 1.3 Lipase (12 - 57 U/L) 37 Hematology WBC (4.5 - 12.5 K/mm3) 7.3 RBC (4.0 - 5.8 mill/mm3) 4.29 Hgb (13.0 - 17.5 gram/dL) 13.5 Hct (42.0 - 52.0 %) 39.5 L MCV (80 - 98 fL) 92.1 MCH (27.0 - 33.0 picogram) 31.5 MCHC (33.0 - 36.0 gram/dL) 34.2 RDW (11.6 - 16.2 %) 13.1 Plt Count (150 - 450 K/mm3) 311 MPV (6.7 - 11.0 fL) 10.2 Toxicology Urine Opiates Screen (<300 ng/mL) POSITIVE Urine Methadone Screen (<300 ng/mL) NEGATIVE Urine Barbiturates (<200 ng/mL) NEGATIVE Ur Phencyclidine Scrn (<25 ng/mL) NEGATIVE Ur Amphetamines Screen (<1000 ng/mL) NEGATIVE U Benzodiazepines Scrn (<200 ng/mL) NEGATIVE Urine Cocaine Screen (<300 ng/mL) NEGATIVE Urine Cannabinoids (<50 ng/mL) POSITIVE Urines Urine Color (YELLOW) YELLOW Urine Appearance (CLEAR) Cloudy H Urine pH (5.0 - 8.0) 5.5 Ur Specific [place] (1.001 - 1.035) 1.042 Urine Protein (NEGATIVE mg/dL) 30 (1+) H Urine Glucose (UA) (NEGATIVE mg/dL) NEGATIVE Urine Ketones (NEGATIVE mg/dL) TRACE H Urine Blood (NEGATIVE mg/dL) Negative Urine Nitrite (NEGATIVE) NEGATIVE Urine Bilirubin (NEGATIVE mg/dL) NEGATIVE Urine Urobilinogen (NEGATIVE mg/dL) 3.0 (1+) H Ur Leukocyte Esterase (NEGATIVE Sachin/uL) NEGATIVE Urine RBC (0 - 5 #/HPF) 0-2 Urine WBC (0 - 5 per HPF) 0-5 Ur Epithelial Cells (FEW per HPF) FEW Calcium Oxalate Crystal (NONE #/HPF) FEW H Urine Bacteria (NONE #/HPF) NONE SEEN Urine Mucus (FEW #/LPF) FEW Lab Statement Laboratory studies reviewed and considered in the medical decision-making. Point of Care Testing Pulse Oximetry Pulse Ox % 97 On: Room air Interpretation Interpreted by me, Pulse oximetry normal Re-Evaluation [facility] )( Re-Evaluation/Progress #1 Time of Re-Eval 2350 )( Re-Eval Status PT REPORTS NAUSEA/VOMITING IMPROVED BUT REQUESTING HYDROMORPHONE FOR PAIN TORADOL INEFFECTIVE, MED ORDERED Re-Evaluation/Progress #2 Text/Dict Note Patient refusing CT presently. After the physical exam and H P, I ordered the appropriate tests ( lab(s) and/or imaging) for this patient based on stated complaints and physical exam findings to rule out an emergent medical condition that requires ED intervention. I personally reviewed the lab tests for this patient which show: -No leukocytosis or anemia. -Lipase within normal limits, pancreatitis unlikely. -Bilirubin elevated, no other electrolyte or renal abnormalities. -UDS is positive for opiates and cannabis, probable causation of patient's condition. I discussed these results with the patient who verbalized understanding. I will prescribe appropriate medication(s) for this patient's home use. Patient encouraged to follow-up with the provider(s) on the discharge paperwork. The patient is discharged home with supportive care, a plan for symptom management/medication(s), and follow-up instructions that detail what to expect over the next 48 hours and what symptoms should prompt immediate return to the ED. Follow-up instructions have been explained in detail to the patient, and the instructions have been provided in written format. The patient is comfortable with the plan of care and has expressed an understanding of the discharge instructions. The patient and/or caregivers are aware that any significant change in condition or worsening of symptoms should prompt an immediate return to this or the closest emergency department or a call to 911. Time of Eval 0115 ED Course Medication(s) Ordered Medication(s) Ordered: Central Nervous System Agents Sig/José Miguel Start time Last Medication Dose Route Stop Time Status Admin Morphine Sulfate 4 MG X1ED STA 10/311 DC 11/01 IV 11/01 2351 0030 Ketorolac 30 MG X1ED STA 10/31 2130 DC Tromethamine IV 11/01 2131 Electrolytic, Caloric, And Sneha Sig/José Miguel Start time Last Medication Dose Route Stop Time Status Admin Sodium Chloride 1,000 ML X1ED STA 10/31 2130 DC IV 10/31 223 Gastrointestinal Drugs Sig/José Miguel Start time Last Medication Dose Route Stop Time Status Admin Metoclopramide HCl 10 MG X1ED STA 10/31 2130 DC IV 11/01 2131 Differential Diagnosis )( Differential Diagnosis Abscess, Acute abdominal pain, Acute coronary syndrome (UNLIKELY PER HEART SCORE), Angina/TN, Aortic dissection, Bladder outlet obstruct, Bowel obstruction, C. diff colitis, Cellulitis, Cholangitis, Cholecystitis, Cholelithiasis, Constipation, Contusion abdominal wall, Diarrhea, Diverticular disease, Dyspepsia, Gastritis, Gastroenteritis, GERD, Hepatitis, Hernia, Hydrocele, Infectious mononucleosis, Inflam bowel disease, Ischemic bowel, Malignancy, Mesenteric adenitis, Myocardial infarction, Pancreatitis, Peptic ulcer disease, Peritonitis, Porphyria, Pylonephritis, Urinary obstruction , Urinary retention, Urinary tract infection, Urolithiasis, Volvulus Patient Discharge Departure Vital Signs/Condition Vital Signs First Documented: Result Date Time Pulse Ox 97 10/31 2137 B/P 152/71 10/31 2137 B/P Mean 98 10/31 2137 O2 Delivery Room air 10/31 2137 Temp 36.9 10/31 2137 Pulse 70 10/31 2137 Resp 18 10/31 2137 Last Documented: Result Date Time Pulse Ox 98 11/02 147 B/P 142/73 11/02 147 B/P Mean 96 11/02 147 O2 Delivery Room air 11/02 147 Temp 36.9 11/02 147 Pulse 73 11/02 147 Resp 16 11/02 147 All vital signs available at the time of this entry have been reviewed. Condition Stable Clinical Impression Clinical Impression Primary Impression: Cannabinoid hyperemesis syndrome Disposition Decision Discharge )( Discharged to Home Yes )( Time 0117 )( Date 11/01/22 Discharge/Care Plan Counseled Regarding Diagnosis, Lab results, Prescriptions, Need for follow-up, When to return to ED Prescriptions Reviewed Risks, Benefits, Alternative treatment Patient Instructions Cannabis Hyperemesis Syndrome Discharge Note I have spoken with the patient and/or caregivers. I have explained the patient's condition, diagnoses and treatment plan based on the information available to me at this time. I have answered the patient's and/or caregiver's questions and addressed any concerns. The patient and/or caregivers have as good an understanding of the patient's diagnosis, condition and treatment plan as can be expected at this point. The vital signs have been stable. The patient's condition is stable and appropriate for discharge from the emergency department. The patient will pursue further outpatient evaluation with the primary care physician or other designated or consulting physician as outlined in the discharge instructions. The patient and/or caregivers are agreeable to this plan of care and follow-up instructions have been explained in detail. The patient and/or caregivers have received these instructions in written format and have expressed an understanding of the discharge instructions. The patient and/or caregivers are aware that any significant change in condition or worsening of symptoms should prompt an immediate return to this or the closest emergency department or a call to 911. Quality Measures BP F/U for HTN BP in normal range Smoking Cessation Screened, non user Chava Caputo 11/01/22 0311: Past Medical History - Adult Home Medications Discontinued Scripts ONDANSETRON ODT (ZOFRAN ODT) 4 MG PO Q6H PRN PRN NAUSEA/VOMITING ONDANSETRON ODT (ZOFRAN ODT) 4 MG PO Q6H PRN PRN NAUSEA/VOMITING #15 TABS Prov: 10/10/22 DC: 11/01/22144 Duplicate therapy ALBUTEROL (PROAIR HFA 90 MCG/ACT 8.5 GM) 2 PUFF INH RTQ4H PRN PRN DYSPNEA/ WHEEZING ALBUTEROL (PROAIR HFA 90 MCG/ACT 8.5 GM) 2 PUFF INH RTQ4H PRN PRN DYSPNEA/ WHEEZING #8.5 GM Prov: 03/05/21 DC: 11/01/22 0145 Therapy completed Reported Medications ONDANSETRON (ZOFRAN) 4 MG PO Q6H PRN PRN NAUSEA/VOMITING AMYLASE/LIPASE/PROTEA 120,000/24,000/76,000 U (CREON 24) 24,000 UNITS PO TID MEALS HYDROmorphone (DILAUDID) 4 MG PO Q4H PRN PRN PAIN SCALE 7-10 ALPRAZolam (XANAX) 2 MG PO TID PRN ANXIETY Patient Discharge Departure Discharge/Care Plan (Auto) Prescriptions Current Visit Scripts CAPSAICIN (CAPSAICIN 0.1%) 1 APPLIC TOPICAL DAILY CAPSAICIN (CAPSAICIN 0.1%) 1 APPLIC TOPICAL DAILY #42.5 GM APPLY TO ABDOMEN NEEDED FOR PAIN Referrals Provider Referral: Donnell Rendon MD Address: [address] [place] [address] [place] [address] Supervising Physician Note MidLv Saw Pt Alone I have reviewed the PA/RUBBER GOODS INSPECTOR TESTER's note and plan of care. I was available for consultation as needed at all times during the patient's visit in the emergency department. at 0130 at 0311 RPT #:[id number] END OF REPORT [facility] 2022-10-30 20:30:00 [facility] ([facility]) EMERGENCY PROVIDER REPORT REPORT#:[id number] REPORT STATUS: Signed DATE:10/30/22 TIME: 2029 PATIENT: TANNER BENDER UNIT #: [id number] ROOM/BED: AGE: 36 SEX: M PCP PHYS: No Primary or Family Physician SERVICE AUTHOR: Jarett Frazier * ALL edits or amendments must be made on the electronic/computer document * Jarett Frazier 10/30/22 2030: HPI-Abd Pain M Under 40 Free Text HPI Notes Free Text HPI Notes 36-year-old male with history of chronic pancreatitis presents to ED with left upper quadrant pain x1 week, nausea, vomited undigested food products x3 today. Patient reports feels like his pancreatitis flare. Took Mason, Zofran, Phenergan today without relief. General Confirmed Patient Yes Initial Greet Date/Time 10/30/221918 Presentation Chief Complaint Abdominal pain Hx Obtained From Patient Sudden in Onset? No Onset Occurred One week ago Context Recent Healthcare No recent doctor visit Risk-Abd Pain M Under 40 )( Torsion Risk factors reviewed Review of Systems ROS Statements All systems rev neg except as marked. Focused Review of Systems Constitutional Denies: Chills, Fever, Lethargy. Respiratory Denies: Cough, non-productive, Cough, productive, Shortness of breath. Cardiovascular Denies: Chest pain, Syncope. GI Reports: Abdominal pain. Male Denies: Flank pain, Testicular pain. Musculoskeletal Denies: Back pain, Extremity pain. Past Medical History - Adult Stated Complaint ABDOMINAL PAIN-VOMITING Allergies Coded Allergies: Penicillins (Severe, THROAT SWELLS UP 12/24/21) Review of Nursing Notes Triage notes reviewed Physical Exam Vital Signs Vital Signs First Documented: Result Date Time Pulse Ox 97 10/30 1940 B/P 117/75 10/30 1940 B/P Mean 89 10/30 1940 O2 Delivery Room air 10/30 1940 Temp 37.0 10/30 1940 Pulse 60 10/30 1940 Resp 16 10/30 1940 Last Documented: Result Date Time Pulse Ox 97 10/30 1940 B/P 117/75 10/30 1940 B/P Mean 89 10/30 1940 O2 Delivery Room air 10/30 1940 Temp 37.0 10/30 1940 Pulse 60 10/30 1940 Resp 16 10/30 1940 Review of Vital Signs Reviewed Focused PE General/Const General/Const Awake, Alert, Well appearing MS Head Head Normocephalic Eyes Eyes PERRL Ears/Nose/Throat Ears/Nose/Throat Airway patent, Mucous membranes moist, Pharynx NL Resp/Chest Respiratory/Chest Breath sounds NL, Breath sounds = bilat, No respiratory distress, No rales, No rhonchi, No wheezing Cardiovascular Cardiovascular Heart rate NL, Regular rhythm, Heart sounds NL, Peripheral circulation NL Abdomen/GI Abdomen/GI Soft Tenderness/Guarding/Rebound Tender LUQ. MS Back Back Inspection NL, Non-tender, No CVA tenderness Skin Skin Color NL, Warm, Dry, Turgor NL Genitourinary General Exam deferred Rectum Rectum/Perineum Exam deferred Neurologic Neurologic Oriented X3, Speech NL, No motor deficits, No sensory deficits Interpretation Diagnostics Lab Results Interpretation Results Laboratory Tests 10/30/222122: [Embedded Image Not Available] Laboratory Tests: 10/30 Chemistry Sodium (136 - 145 mmol/L) 139 Potassium (3.5 - 5.1 mmol/L) 3.7 Chloride (98 - 107 mmol/L) 104.0 Carbon Dioxide (21 - 32 mmol/L) 29.0 Anion Gap (10 - 20) 9.7 L BUN (7 - 18 mg/dL) 8 Creatinine (0.7 - 1.3 mg/dL) 1.00 Glomerular Filtr Rate (>=60 mL/min) > 60 BUN/Creatinine Ratio (10 - 20) 8.0 L Glucose (74 - 106 mg/dL) 80 Calcium (8.5 - 10.1 mg/dL) 9.2 Total Bilirubin (0.0 - 1.0 mg/dL) 0.90 Direct Bilirubin (0.0 - 0.20 mg/dL) 0.30 H AST (15 - 37 IUnit/L) 19 ALT (12 - 78 IUnit/L) 15 Total Alk Phosphatase (45 - 117 IUnit/L) 63 Total Protein (6.4 - 8.2 gram/dL) 7.9 Albumin (3.4 - 5.0 g/dL) 4.4 Globulin (2.7 - 4.2 gram/dL) 3.5 Albumin/Globulin Ratio (0.75 - 1.50) 1.3 Lipase (12 - 57 U/L) 39 Hematology WBC (4.5 - 12.5 K/mm3) 7.0 RBC (4.0 - 5.8 mill/mm3) 4.57 Hgb (13.0 - 17.5 gram/dL) 14.2 Hct (42.0 - 52.0 %) 42.4 MCV (80 - 98 fL) 92.8 MCH (27.0 - 33.0 picogram) 31.1 MCHC (33.0 - 36.0 gram/dL) 33.5 RDW (11.6 - 16.2 %) 13.0 Plt Count (150 - 450 K/mm3) 142 L MPV (6.7 - 11.0 fL) 11.1 H Urines Urine Color (YELLOW) YELLOW Urine Appearance (CLEAR) CLEAR Urine pH (5.0 - 8.0) 5.5 Ur Specific Charlotte (1.001 - 1.035) 1.041 Urine Protein (NEGATIVE mg/dL) 50 (1+) H Urine Glucose (UA) (NEGATIVE mg/dL) NEGATIVE Urine Ketones (NEGATIVE mg/dL) TRACE H Urine Blood (NEGATIVE mg/dL) Negative Urine Nitrite (NEGATIVE) NEGATIVE Urine Bilirubin (NEGATIVE mg/dL) NEGATIVE Urine Urobilinogen (NEGATIVE mg/dL) 3.0 (1+) H Ur Leukocyte Esterase (NEGATIVE Sachin/uL) NEGATIVE Urine RBC (0 - 5 #/HPF) 3-5 Urine WBC (0 - 5 per HPF) 0-5 Ur Epithelial Cells (FEW per HPF) FEW Calcium Oxalate Crystal (NONE #/HPF) FEW H Urine Bacteria (NONE #/HPF) FEW H Urine Mucus (FEW #/LPF) MANY H Point of Care Testing Pulse Oximetry Pulse Ox % 97 On: Room air Interpretation Interpreted by me, Pulse oximetry normal Re-Evaluation MDM )( Re-Evaluation/Progress #1 Time of Re-Eval 2148 )( Re-Eval Status pt called multiple times by staff w/o response. Eloped ED Course Medication(s) Ordered Medication(s) Ordered: Central Nervous System Agents Sig/José Miguel Start time Last Medication Dose Route Stop Time Status Admin Morphine Sulfate 4 MG X1ED STA 10/30 2028 DC IV 10/30 2029 Electrolytic, Caloric, And Sneha Sig/José Miguel Start time Last Medication Dose Route Stop Time Status Admin Sodium Chloride 1,000 ML X1ED STA 10/30 2028 DC IV 10/31 2127 Gastrointestinal Drugs Sig/José Miguel Start time Last Medication Dose Route Stop Time Status Admin Ondansetron HCl 4 MG X1ED PRN PRN 10/30 2029 DCD IV Differential Diagnosis )( Differential Diagnosis Abscess, Acute abdominal pain, Appendicitis, Cholangitis, Cholecystitis, Cholelithiasis, Constipation, Dyspepsia, Gastritis, Gastroenteritis, GERD, Hepatitis, Hernia, Inflam bowel disease, Ischemic bowel, Malignancy, Mesenteric adenitis, Pancreatitis, Peptic ulcer disease, Pylonephritis Patient Discharge Departure Vital Signs/Condition Vital Signs First Documented: Result Date Time Pulse Ox 97 10/30 1940 B/P 117/75 10/30 1940 B/P Mean 89 10/30 1940 O2 Delivery Room air 10/30 1940 Temp 37.0 10/30 1940 Pulse 60 10/30 1940 Resp 16 10/30 1940 Last Documented: Result Date Time Pulse Ox 97 10/30 1940 B/P 117/75 10/30 1940 B/P Mean 89 10/30 1940 O2 Delivery Room air 10/30 1940 Temp 37.0 10/30 1940 Pulse 60 10/30 1940 Resp 16 10/30 1940 All vital signs available at the time of this entry have been reviewed. Condition Stable Clinical Impression Clinical Impression Primary Impression: LUQ abdominal pain Disposition Decision Other )( Time 2148 )( Date 10/30/22 Against Medical Advice ELOPED Elopement Note Elopement Note This patient has left the emergency department or waiting room with no communication to myself, nursing or administrative staff. There was no opportunity to discuss the patient's decision to leave, provide medical advice or discuss alternatives to leaving. The staff has made efforts to locate the patient without success. Quality Measures BP F/U for HTN BP in normal range Smoking Cessation Screened, non user Madi Clark 11/04/22 0328: Past Medical History - Adult Home Medications Active Scripts CAPSAICIN (CAPSAICIN 0.1%) 1 APPLIC TOPICAL DAILY CAPSAICIN (CAPSAICIN 0.1%) 1 APPLIC TOPICAL DAILY #42.5 GM Prov: 11/01/22 Discontinued Scripts ONDANSETRON ODT (ZOFRAN ODT) 4 MG PO Q6H PRN PRN NAUSEA/VOMITING ONDANSETRON ODT (ZOFRAN ODT) 4 MG PO Q6H PRN PRN NAUSEA/VOMITING #15 TABS Prov: 10/10/22 DC: 11/01/22 0145 Duplicate therapy ONDANSETRON ODT (ZOFRAN ODT) 4 MG PO Q6H PRN PRN NAUSEA/VOMITING ONDANSETRON ODT (ZOFRAN ODT) 4 MG PO Q6H PRN PRN NAUSEA/VOMITING #15 TABS Prov: 11/01/22 DC: 11/01/22 0145 Duplicate therapy ALBUTEROL (PROAIR HFA 90 MCG/ACT 8.5 GM) 2 PUFF INH RTQ4H PRN PRN DYSPNEA/ WHEEZING ALBUTEROL (PROAIR HFA 90 MCG/ACT 8.5 GM) 2 PUFF INH RTQ4H PRN PRN DYSPNEA/ WHEEZING #8.5 GM Prov: 03/05/21 DC: 11/01/22 0145 Therapy completed Reported Medications ONDANSETRON (ZOFRAN) 4 MG PO Q6H PRN PRN NAUSEA/VOMITING AMYLASE/LIPASE/PROTEA 120,000/24,000/76,000 U (CREON 24) 24,000 UNITS PO TID MEALS HYDROmorphone (DILAUDID) 4 MG PO Q4H PRN PRN PAIN SCALE 7-10 ALPRAZolam (XANAX) 2 MG PO TID PRN ANXIETY Patient Discharge Departure Supervising Physician Note MidLv Saw Pt Alone I have reviewed the PA/RUBBER GOODS INSPECTOR TESTER's note and plan of care. I was available for consultation as needed at all times during the patient's visit in the emergency department. I agree with the clinical impression, plan and disposition. at 0402 at 0328 [facility] #:[id number] END OF REPORT [facility] 2022-10-09 22:58:00 [id number] [facility] PATIENT NAME: TANNER BENDER ADMIT DATE: 10/09/22 ACCOUNT NO: [id number] ROOM NO: AGE: 36 REPORT TYPE: eEKG REPORT SEX: M DATE OF : [birth year] ADMITTING PHYSICIAN: ATTENDING PHYSICIAN: Order: [id number] Test Reason : Test Date/Time Stamp: FriOct 09 2022 22:58:11 Blood Pressure : / mmHG Vent. Rate : 061 BPM Atrial Rate : 061 BPM P-R Int : 110 ms QRS Dur : 092 ms QT Int : 382 ms P-R-T Axes : 031 086 058 degrees QTc Int : 384 ms Sinus rhythm with short OK Early repolarization Otherwise normal ECG Confirmed by GIOVANI BENSON, TOO[facility] VALLEY HOSPITALYeimi ([id number]) on 10/10/2022 10:11:14 AM Referred By: Self Referred Confirmed by:ESTRELLITA MATUTE MD at 1011 PATIENT NAME: TANNER BENDER GALE Singh 2022-10-09 22:55:00 [facility] ([facility] EMERGENCY PROVIDER REPORT REPORT#:[id number] REPORT STATUS: Signed DATE:10/09/22 TIME: 2254 PATIENT: TANNER BENDER UNIT #: [id number] ROOM/BED: AGE: 36 SEX: M PCP PHYS: Gonzalez Wan MD SERVICE AUTHOR: Iggy Copeland MD * ALL edits or amendments must be made on the electronic/computer document * HPI-Abd Pain M Under 40 General Initial Greet Date/Time 10/09/22 2246 PCP no PCP Presentation Chief Complaint Abdominal pain Hx Obtained From Patient, Prior medical records Sudden in Onset? No Onset Occurred Yesterday Symptom Duration Since onset Progression since Onset Unchanged Caused by No trauma by history Location Abdomen upper Quality Same as prior, Aching Radiation Does not radiate. Migration/Movement None Pain/Sev: Onset Mild Pain/Sev: Current Moderate Associated with Reports: Nausea, Vomiting. Denies: Fever, Hematemesis, Hematochezia, Melena. Exacerbated by Eating Relieved by Nothing Free Text HPI Notes Free Text HPI Notes Patient states he is developed upper abdominal pain associated with nausea and vomiting which is worse every time he eats or drinks anything. He states the pain started yesterday after eating [employer]. He states he has similar pain in the past and this feels the same. Denies chest pain, tightness, or pressure, sob, lightheadedness, syncope, exertional symptoms, sweating, arm pain, back pain, or jaw pain. Denies fever or bleeding per any orifice. Risk-Abd Pain M Under 40 )( Torsion Risk factors reviewed Review of Systems ROS Statements All systems rev neg except as marked. Focused Review of Systems Respiratory Denies: Cough, non-productive, Cough, productive, Shortness of breath. Cardiovascular Denies: Chest pain, Syncope. Past Medical History - Adult Stated Complaint ABD PAIN Allergies Coded Allergies: Penicillins (Severe, THROAT SWELLS UP 12/24/21) Home Medications Active Scripts ALBUTEROL (PROAIR HFA 90 MCG/ACT 8.5 GM) 2 PUFF INH RTQ4H PRN PRN DYSPNEA/ WHEEZING ALBUTEROL (PROAIR HFA 90 MCG/ACT 8.5 GM) 2 PUFF INH RTQ4H PRN PRN DYSPNEA/ WHEEZING #8.5 GM Prov: 03/05/21 Reported Medications ONDANSETRON (ZOFRAN) 4 MG PO Q6H PRN PRN NAUSEA/VOMITING AMYLASE/LIPASE/PROTEA 120,000/24,000/76,000 U (CREON 24) 24,000 UNITS PO TID MEALS HYDROmorphone (DILAUDID) 4 MG PO Q4H PRN PRN PAIN SCALE 7-10 ALPRAZolam (XANAX) 2 MG PO TID PRN ANXIETY Review of Nursing Notes Rev avail, and agree Past Medical History: Reports: Pancreatitis. Additional Medical History Pancreatitis Past Surgical History: Reports: Abdominal surgery, Appendectomy, Cholecystectomy. Additional Family History n/c Alcohol Use Denies EtOH use Drug Use Denies recreational drugs Other Social History Primary family support Additional Social History family hx- unknown Physical Exam Vital Signs Vital Signs First Documented: Result Date Time Pulse Ox 98 10/09 2252 B/P 155/89 10/09 2252 B/P Mean 111 10/09 2252 O2 Delivery Room air 10/10 2251 Temp 36.9 10/09 2252 Pulse 68 10/09 2252 Resp 16 10/10 2251 Last Documented: Result Date Time Pulse Ox 98 10/09 2252 B/P 155/89 10/09 2252 B/P Mean 111 10/09 2252 O2 Delivery Room air 10/09 225 Temp 36.9 10/09 2252 Pulse 68 10/09 2252 Resp 16 10/09 225 Review of Vital Signs Reviewed Focused PE General/Const General/Const Awake, Alert, Well appearing MS Head Head Normocephalic Eyes Eyes PERRL Ears/Nose/Throat Ears/Nose/Throat Airway patent, Mucous membranes moist, Pharynx NL Resp/Chest Respiratory/Chest Breath sounds NL, Breath sounds = bilat, No respiratory distress, No rales, No rhonchi, No wheezing Cardiovascular Cardiovascular Heart rate NL, Regular rhythm, Heart sounds NL, Peripheral circulation NL Abdomen/GI Abdomen/GI Soft, McBurney's non-tender, No guarding, No rebound, BS normoactive, No distention, No hernia, No palpable mass Tenderness/Guarding/Rebound Tender epigastric. Negative: Tender RUQ, Tender LUQ, Tender RLQ, Tender LLQ, Tender periumbilical, Tender suprapubic, Tender diffuse, Tender flank R, Tender flank L, Mclaughlin's sign positive, McBurney's point tender, Guarding voluntary, Guarding involuntary, Rebound localized, Rebound diffuse, Rigid to palpation. MS Back Back Inspection NL, Non-tender, No CVA tenderness Skin Skin Color NL, Warm, Dry, Turgor NL Neurologic Neurologic Oriented X3, Speech NL, No motor deficits, No sensory deficits Interpretation Diagnostics Lab Results Interpretation Results Laboratory Tests 10/09/22 2317: [Embedded Image Not Available] Laboratory Tests: 10/09 10/09 9943 2317 Chemistry Sodium (136 - 145 mmol/L) 140 Potassium (3.5 - 5.1 mmol/L) 3.9 Chloride (98 - 107 mmol/L) 106.0 Carbon Dioxide (21 - 32 mmol/L) 24.0 Anion Gap (10 - 20) 13.9 BUN (7 - 18 mg/dL) < 5 L Creatinine (0.7 - 1.3 mg/dL) 0.90 Glomerular Filtr Rate (>=60 mL/min) > 60 BUN/Creatinine Ratio (10 - 20) 5.6 L Glucose (74 - 106 mg/dL) 90 Calcium (8.5 - 10.1 mg/dL) 9.1 Total Bilirubin (0.0 - 1.0 mg/dL) 1.40 H Direct Bilirubin (0.0 - 0.20 mg/dL) 0.50 H AST (15 - 37 IUnit/L) 24 ALT (12 - 78 IUnit/L) 16 Total Alk Phosphatase (45 - 117 IUnit/L) 60 Troponin I (0 - 54 pg/mL) <4.0 Total Protein (6.4 - 8.2 gram/dL) 7.8 Albumin (3.4 - 5.0 g/dL) 4.4 Globulin (2.7 - 4.2 gram/dL) 3.4 Albumin/Globulin Ratio (0.75 - 1.50) 1.3 Lipase (12 - 57 U/L) 62 H Hematology WBC (4.5 - 12.5 K/mm3) 9.0 RBC (4.0 - 5.8 mill/mm3) 4.73 Hgb (13.0 - 17.5 gram/dL) 14.8 Hct (42.0 - 52.0 %) 43.6 MCV (80 - 98 fL) 92.2 MCH (27.0 - 33.0 picogram) 31.3 MCHC (33.0 - 36.0 gram/dL) 33.9 RDW (11.6 - 16.2 %) 12.6 Plt Count (150 - 450 K/mm3) 306 MPV (6.7 - 11.0 fL) 10.2 Urines Urine Color (YELLOW) YELLOW Urine Appearance (CLEAR) CLEAR Urine pH (5.0 - 8.0) 6.0 Ur Specific Charlotte (1.001 - 1.035) 1.030 Urine Protein (NEGATIVE mg/dL) 30 (1+) H Urine Glucose (UA) (NEGATIVE mg/dL) NEGATIVE Urine Ketones (NEGATIVE mg/dL) NEGATIVE Urine Blood (NEGATIVE mg/dL) Negative Urine Nitrite (NEGATIVE) NEGATIVE Urine Bilirubin (NEGATIVE mg/dL) NEGATIVE Urine Urobilinogen (NEGATIVE mg/dL) Normal Ur Leukocyte Esterase (NEGATIVE Sachin/uL) NEGATIVE Urine RBC (0 - 5 #/HPF) 0-2 Urine WBC (0 - 5 per HPF) 0-5 Ur Epithelial Cells (FEW per HPF) Moderate (5-10/hpf) H Calcium Oxalate Crystal (NONE #/HPF) FEW H Urine Bacteria (NONE #/HPF) MODERATE H Hyaline Casts (0 - 5 #/LPF) 0-2 Urine Mucus (FEW #/LPF) MANY H ECG #1 Interpretation Time 8762 Interpreted by and reviewed by me, Independently interpreted, ED physician NL ECG Interpretation Normal rate, No STEMI, Normal QRS, Normal axis, Adequate tracing Rate 61 ECG Q-T-ST - TN Non-specific ST changes Re-Evaluation MDM Free Text MDM Notes Free Text MDM Notes Previous hospital records noted. CT of the abdomen pelvis with IV contrast done on July 13, 2022 shows no acute abnormalities and a normal pancreas. Differential Diagnosis: Abdominal aortic aneurysm, Acute abdominal pain, Acute coronary syndrome, Angina/TN, Aortic dissection, Appendicitis, Bowel obstruction , Cholangitis, Cholecystitis, Cholelithiasis, Diverticular disease, Esophagitis, Gastritis, Gastroenteritis, GERD, Hepatitis, Hernia, Inflam bowel disease, Ischemic bowel, Malignancy, Myocardial infarction, Pancreatitis, Peritonitis, Pylonephritis, Unstable angina, Urinary obstruction, Urinary tract infection, Urolithiasis, Volvulus )( Re-Evaluation/Progress #1 Text/Dict Note Patient appears nontoxic and improved in clinical condition. Mental status and neurologic exam unchanged. No chest pain or shortness of breath. Lungs cta bilaterally. Abdomen soft, NTND. Labs independently reviewed and interpreted by me. Time of Re-Eval 003 )( Re-Eval Status Improved ED Course Medication(s) Ordered Medication(s) Ordered: Central Nervous System Agents Sig/José Miguel Start time Last Medication Dose Route Stop Time Status Admin Hydromorphone HCl 1 MG X1ED STA 10/09 2351 DC 10/09 IV 10/09 2352 2357 Morphine Sulfate 4 MG X1ED STA 10/09 2247 DC 10/09 IV 10/09 2248 2318 Electrolytic, Caloric, And Sneha Sig/José Miguel Start time Last Medication Dose Route Stop Time Status Admin Sodium Chloride 1,000 ML X1ED STA 10/09 2247 DC 10/09 IV 10/09 2346 2319 Gastrointestinal Drugs Sig/José Miguel Start time Last Medication Dose Route Stop Time Status Admin Ondansetron HCl 4 MG X1ED PRN PRN 10/09 2300 DC 10/09 IV 2318 Patient Discharge Departure Vital Signs/Condition Vital Signs First Documented: Result Date Time Pulse Ox 98 10/10 2251 B/P 155/89 10/10 2251 B/P Mean 111 10/092 O2 Delivery Room air 10/10 2251 Temp 36.9 10/10 2251 Pulse 68 10/10 2251 Resp 16 10/10 2251 Last Documented: Result Date Time Pulse Ox 98 10/09 225 B/P 155/89 10/10 2251 B/P Mean 111 10/092 O2 Delivery Room air 10/10 2251 Temp 36.9 10/10 2251 Pulse 68 10/10 2251 Resp 16 10/10 2251 All vital signs available at the time of this entry have been reviewed. Clinical Impression Clinical Impression Primary Impression: Abdominal pain Disposition Decision Discharge )( Discharged to Home Yes )( Time 0035 )( Date 10/10/22 Discharge/Care Plan Counseled Regarding Diagnosis, Lab results, Imaging studies, Need for follow-up, When to return to ED (Auto) Prescriptions Current Visit Scripts ONDANSETRON ODT (ZOFRAN ODT) 4 MG PO Q6H PRN PRN NAUSEA/VOMITING ONDANSETRON ODT (ZOFRAN ODT) 4 MG PO Q6H PRN PRN NAUSEA/VOMITING #15 TABS Patient Instructions Abdominal Pain Referrals Provider Referral: Loi Wahl MD Follow-Up: 1-2 Days Address: [address] [place] [address], [address] [place] [address] at 0036 RPT #:[id number] END OF REPORT [facility] 2022-07-15 16:19:00 [facility] ([facility] Hospitalist Discharge Summary REPORT#:[id number] REPORT STATUS: Signed DATE:07/15/22 TIME: 1619 PATIENT: TANNER BENDER UNIT #: [id number] ROOM/BED: [place] [address] : 84 AGE: 36 SEX: M ATTEND: Ila Horvath MD ADM AUTHOR: Ila Horvath MD * ALL edits or amendments must be made on the electronic/computer document * General Information Date of admission: Observation Start Date: Date of admission: 07/13/22 Discharge date: 07/15/22 Admission diagnosis: abdominal pain N/V Discharge diagnosis: abdominal pain N/V Hospital course: - Left upper quadrant abdominal pain, back pain. CTAP normal. Lipase margin. Prior history of pancreatitis. IV dialudid started for pain 0.5mg initially, now increased to 1mg Q4hrs. Keep NPO and on IV fluids until pain more controlled. May need pain consult. Prior chart records noted drug seeking behavior; has fired multiple MDs. - Nausea, vomiting, diarrhea. Has improved since arrival. Supportive care for symptoms. - Anxiety. Ativan PRN. /- ask more pain medication -- CT abdomen -- review -- normal pancreas -- ask GI consult -- GI and pain management consult he left AMA Free Text DxA P Notes Free text DxA P notes: Impression: - Left upper quadrant abdominal pain, back pain. CTAP normal. Lipase margin. Prior history of pancreatitis. IV dialudid started for pain 0.5mg initially, now increased to 1mg Q4hrs. Keep NPO and on IV fluids until pain more controlled. May need pain consult. Prior chart records noted drug seeking behavior; has fired multiple MDs. - Nausea, vomiting, diarrhea. Has improved since arrival. Supportive care for symptoms. - Anxiety. Ativan PRN. /- ask more pain medication -- CT abdomen -- review -- normal pancreas -- ask GI consult -- GI and pain management consult Objective VS/I O Last Documented: Result Date Time Pulse Ox 98 07/15 828 O2 Delivery Room air 07/15 828 B/P 124/76 07/16 807 B/P Mean 92.2 07/16 807 Temp 36.6 07/16 807 Pulse 52 07/15 08 Resp 15 07/15 08 24 hour I O ending at 0700: 07/15 0700 07/14 1900 Intake Total 901.00 Output Total Balance 901.00 Intake, IV 901.00 General appearance: alert, awake, oriented Head/Eyes: EOMI, PERRL ENT: moist mucosal membranes, normal dentition Neck: supple/no meningismus, no masses or swelling Cardiovascular: normal heart sounds, regular rate rhythm Respiratory: wheezing (scattered), symmetric expansion, no distress Abdomen: tenderness (mild LUQ), soft, no distention Extremities: no clubbing, no cyanosis, no edema Neuro/BOBBIN DISKER: alert, oriented X 3, normal speech Skin: normal color, normal temperature Psychiatry: normal affect, normal judgment/insight, normal mood Discharge Instructions Additional Discharge Routines: None at 1621 RPT #:[id number] END OF REPORT [facility] 2022-07-15 12:31:00 [facility] ([facility]) GE Consultation Note REPORT#:[id number] REPORT STATUS: Signed DATE:07/15/22 TIME: 1231 PATIENT: TANNER BENDER UNIT #: [id number] ROOM/BED: [place] [address] : 84 AGE: 36 SEX: M ATTEND: Ila Horvath MD ADM AUTHOR: Felice Manrique * ALL edits or amendments must be made on the electronic/computer document * Felice Manrique 07/15/22 1231: History of Present Illness HPI: Patient is a 36 year old male with a PMHx of pancreatitis and cholecystectomy who presented to the hospital with abdominal pain that began last Friday. He reports a constant left upper quadrant abdominal pain, sharp in nature, that radiates to the back. Associated symptoms include nausea, vomiting, and diarrhea. He denies any chills, chest pain, shortness of breath, melena, hematochezia, or hematemesis. He states the pain is similar to the pain he usually has with pancreatitis. He denies any recent travel, sick contacts, trying new food, or recent antibiotic use. CT abdomen and pelvis did not reveal any acute findings. Currently, patient appears irritable, reports continued pain , no further vomiting. History - Adult longitudinal Past medical history: Reports: Pancreatitis. Additional medical history: Pancreatitis Past surgical history: Reports: Abdominal surgery, Appendectomy, Cholecystectomy. Additional family history: n/c Alcohol use: Denies EtOH use Drug use: Denies recreational drugs Smoking status for patients 13 years old or older: Never Smoker Other social history: Primary family support Additional social history: family hx- unknown Medications: Home Medications: Medication Dose/Rte/Freq Days Qty Entered Last Max Daily Dose Reviewed ONDANSETRON (ZOFRAN) 4 MG PO 07/13/22 07/13/22 Strength: 4 MG TAB Q6H PRN PRN 2301 2308 NAUSEA/VOMITING AMYLASE/LIPASE/PROTEA 24,000 UNITS PO 07/13/22 07/13/22 120,000/24,000/76,000 U TID MEALS 2303 2308 (CREON 24) Strength: 24-76-120K CAP HYDROmorphone (DILAUDID) 4 MG PO 07/13/22 07/13/22 Strength: 4 MG TAB Q4H PRN PRN PAIN 2305 2308 SCALE 7-10 ALPRAZolam (XANAX) 2 MG PO 07/13/22 07/13/22 Strength: 2 MG TAB TID PRN ANXIETY 2307 2308 ALBUTEROL 2 PUFF INH 8.5 03/05/21 07/13/22 (PROAIR HFA 90 MCG/ACT RTQ4H PRN PRN 0245 2239 8.5 GM) DYSPNEA/WHEEZING Strength: 90 MCG INHALER Allergies: Coded Allergies: Penicillins (Severe, THROAT SWELLS UP 12/24/21) Review of Systems Additional notes: 10 point ros neg except hpi Objective Physical Exam VS/I O: Last Documented: Result Date Time Pulse Ox 98 07/15 828 O2 Delivery Room air 07/15 828 B/P 124/76 07/15 08 B/P Mean 92.2 07/15 0808 Temp 97.9 07/15 0808 Pulse 52 07/15 0808 Resp 15 07/15 0808 24 hour I O ending at 0700: 07/15 0700 07/14 1900 Intake Total 901.00 Output Total Balance 901.00 Intake, IV 901.00 PATIENT WEIGHT: Weight (lb): Weight (oz): Weight (kg): 58.182 Medications: Active Meds + DC'd Last 24 Hrs Hydrocodone Bitart/Acetaminophen (NORCO 7.5/325 TABLET) 1 TAB Q4H PRN PRN PO (DCD) Ondansetron HCl (ZOFRAN) 4 MG Q4H PRN PRN IV (DCD) Lorazepam (ATIVAN) 1 MG DAILY PRN PRN IV (DCD) Sodium Chloride (SODIUM CHLORIDE) 0 ASDIR PRN IV (DCD) Albuterol Sulfate (ALBUTEROL SULFATE) 2.5 MG RTQ4H PRN PRN NEB (DCD) Sodium Chloride (SODIUM CHLORIDE 0.9%) 1,000 ML .[id number] IV (DCD) Hydromorphone HCl (DILAUDID) 1 MG Q4H PRN PRN IV (DCD) Ondansetron HCl (ZOFRAN) 4 MG Q6H PRN PRN IV (DC) Sodium Chloride (SODIUM CHLORIDE 0.9%) 1,000 ML .Q8H IV (DC) General appearance: alert, awake, oriented HEENT: atraumatic, normocephalic Neck: full range of motion Cardiovascular: normal heart sounds, regular rate rhythm Respiratory: clear to auscultation, no distress Abdomen: tenderness, soft, no distention Extremities: moves all Neuro/BOBBIN DISKER: alert, oriented X 3 Skin: dry, intact Psychiatry: normal affect, normal judgment/insight Diagnosis, Assessment Plan Free Text DxA P Notes Free Text DxA P Notes: Assessment abdominal pain n/v/d prior hx of pancreatitis Patient is a 36 year old male with a PMHx of pancreatitis who presented to the hospital with abdominal pain, nausea, vomiting, and diarrhea. Currently, patient reports continued pain, requesting pain meds, but refusing any oral pain meds. He denies any further vomiting. He appears irritable. Plan: - monitor labs - emesis control - chronic pain management - CT a/p unremarkable - clear liquid diet, advance as tolerated - continue with supportive care Quoc Alvarenga 07/19/22 2224: Attestations Physician Attestation Agree w/findings plan: Agree with the findings and plan as documented by [facility]; at 1744 at 2224 RPT #:[id number] END OF REPORT [facility] 2022-07-15 10:26:00 [facility] Hospitalist Progress Note REPORT#:[id number] REPORT STATUS: Signed DATE:07/15/22 TIME: 1026 PATIENT: TANNER BENDER UNIT #: [id number] ROOM[facility]BED: [facility] : 84 AGE: 36 SEX: M ATTEND: Ila Horvath MD ADM AUTHOR: Ila Horvath MD * ALL edits or amendments must be made on the electronic/computer document * Subjective Chief complaint: he ask more pain medication . he is comfortable before enter the room . no nausea no vomiting . HPI: 36 year old male with history of pancreatitis who presented with complaints of abdominal pain in the left upper quadrant. Outpatient labs with PCP elevated per ED notes He reports pain radiating to back. Associated with nausea, vomiting, and diarrhea. Denies fever, chills, hemoptysis, constipation, melena, or hematochezia. Has not been eating for the last few days due to presenting symptoms. Review of Systems GI: Reports: abdominal pain. All systems rev neg: except as noted Objective General VS/I O: Vital Signs: Date Time Temp Pulse Resp B/P B/P Pulse O2 O2 Flow FiO2 Mean Ox Delivery Rate 07/15 0808 36.6 52 15 124/76 92.2 97 Room air 07/15 0401 36.6 54 14 124/73 89.9 97 07/15 0316 97 Room air 07/15 0024 36.7 59 14 129/86 100.7 97 07/14 2333 98 Room air 07/14 2024 36.8 56 14 145/88 106.9 98 07/14 1626 36.7 56 15 135/83 100.5 96 Room air 24 hour I O ending at 0700: 07/15 0700 07/14 1900 Intake Total 901.00 Output Total Balance 901.00 Intake, IV 901.00 PATIENT WEIGHT: Weight (lb): Weight (oz): Weight (kg): 58.182 Medications: Active Meds + DC'd Last 24 Hrs Hydrocodone Bitart/Acetaminophen (NORCO 7.5/325 TABLET) 1 TAB Q4H PRN PRN PO Ondansetron HCl (ZOFRAN) 4 MG Q4H PRN PRN IV Lorazepam (ATIVAN) 1 MG DAILY PRN PRN IV Sodium Chloride (SODIUM CHLORIDE) 0 ASDIR PRN IV Albuterol Sulfate (ALBUTEROL SULFATE) 2.5 MG RTQ4H PRN PRN NEB Sodium Chloride (SODIUM CHLORIDE 0.9%) 1,000 ML .[id number] IV Hydromorphone HCl (DILAUDID) 1 MG Q4H PRN PRN IV Ondansetron HCl (ZOFRAN) 4 MG Q6H PRN PRN IV (DC) Sodium Chloride (SODIUM CHLORIDE 0.9%) 1,000 ML .Q8H IV (DC) Physical Exam General appearance: alert, awake, oriented Head/Eyes: EOMI, PERRL ENT: moist mucosal membranes, normal dentition Neck: supple/no meningismus, no masses or swelling Cardiovascular: normal heart sounds, regular rate rhythm Respiratory: wheezing (scattered), symmetric expansion, no distress Abdomen: tenderness (mild LUQ), soft, no distention Extremities: no clubbing, no cyanosis, no edema Neuro/BOBBIN DISKER: alert, oriented X 3, normal speech Skin: normal color, normal temperature Psychiatry: normal affect, normal judgment/insight, normal mood Results Findings/Data: Laboratory Tests 07/14 1855 Chemistry Sodium (134 - 147 mEq/L) 140 Potassium (3.4 - 5.0 mEq/L) 3.4 Chloride (100 - 108 mEq/L) 108 Carbon Dioxide (21 - 33 mEq/l) 27 Anion Gap (0 - 20) 8 BUN (7 - 18 mg/dL) 6 L Creatinine (0.6 - 1.3 mg/dL) 1.0 Glomerular Filtr Rate (105 - 110) 99.4 L Glucose (70 - 110 mg/dL) 108 Calcium (8.0 - 10.5 mg/dL) 9.1 Total Bilirubin (0.0 - 1.0 mg/dL) 1.50 H Direct Bilirubin (0.0 - 0.30 MG/DL) 0.50 H Indirect Bilirubin (MG/DL) 1.00 AST (15 - 37 IUnit/L) 19 ALT (30 - 65 IUnit/L) 12 L Total Alk Phosphatase (20 - 125 IUnit/L) 48 Total Protein (6.4 - 8.2 g/dL) 7.3 Albumin (3.4 - 5.0 g/dL) 4.30 Lipase (13 - 57 U/L) 176 H Laboratory Tests 07/14 1855 Hematology WBC (4.5 - 11.0 x10 3/uL) 7.6 RBC (4.00 - 5.60 x10 6/uL) 4.01 Hgb (12.5 - 16.9 g/dL) 12.7 Hct (37.5 - 50.7 %) 36.6 L MCV (81.0 - 99.0 fL) 91.3 MCH (27.0 - 33.0 pg) 31.7 MCHC (33.0 - 37.0 g/dL) 34.7 RDW (11.5 - 14.5 %) 12.2 Plt Count (150 - 400 x10 3/uL) 307 MPV (7.0 - 9.0 fL) 10.3 H Neut % (Auto) (56.0 - 77.0 %) 48.6 L Lymph % (Auto) (14.0 - 32.0 %) 39.0 H Randolph % (Auto) (4.8 - 9.0 %) 8.9 Eos % (Auto) (0.3 - 3.7 %) 2.5 Baso % (Auto) (0.0 - 2.0 %) 0.9 Neut # (Auto) (2.0 - 7.6 x10 3/uL) 3.69 Lymph # (Auto) (1.0 - 3.8 x10 3/uL) 2.97 Randolph # (Auto) (0.1 - 0.8 x10 3/uL) 0.68 Eos # (Auto) (0.0 - 0.2 x10 3/uL) 0.19 Baso # (Auto) (0.0 - 0.2 x10 3/uL) 0.07 Abs Immat Gran (auto) (0.00 - 0.03 x10 3/uL) 0.01 Add Manual Diff NO Immature Gran % (0.0 - 2.0 %) 0.1 Nucleated RBC % (0 - 0 %) 0.0 Nucleated RBCs # (Man) (0.0 - 0.1 x10 3/uL) 0.00 Laboratory Tests 07/13 1946 Urines Urine Color (YEL/STRAW) VERONICA H Urine Appearance (CLEAR) SL CLOUDY Urine pH (5.0 - 7.0) 5.0 Ur Specific [place] (1.005 - 1.030) 1.036 H Urine Protein (NEGATIVE) NEGATIVE Urine Glucose (UA) (NEGATIVE) NEGATIVE Urine Ketones (NEGATIVE) NEGATIVE Urine Blood (NEGATIVE) NEGATIVE Urine Nitrite (NEGATIVE) NEGATIVE Urine Bilirubin (NEGATIVE) NEGATIVE Urine Urobilinogen (0.2 - 1.0 mg/dL) 4.0 H Ur Leukocyte Esterase (NEGATIVE) NEGATIVE Urine RBC (0 - 3 RBC/HPF) 0-3 Urine WBC (0 - 3 WBC/HPF) 0-3 Ur Squamous Epith Cells (NONE SEEN /HPF) 0-5 Calcium Oxalate Crystal (NONE SEEN /HPF) 1+ H Urine Bacteria (NONE SEEN /HPF) NONE SEEN Urine Mucus (NONE SEEN /LPF) 4+ H Recent Impressions: CAT SCAN - CT ABD PELVIS W/CONT 07/14 2003 Report Impression - Status: SIGNED Entered: 07/13/20222119 IMPRESSION: No acute findings. Pancreas has normal appearance. Impression By: [email or web address] - Min Max M.D. Radiology data: Recent Impressions: CAT SCAN - CT ABD PELVIS W/CONT 07/14 2003 Report Impression - Status: SIGNED Entered: 07/13/20222119 IMPRESSION: No acute findings. Pancreas has normal appearance. Impression By: Susana Max M.D. Diagnosis, Assessment Plan Free Text DxA P Notes Free text DxA P notes: Impression: - Left upper quadrant abdominal pain, back pain. CTAP normal. Lipase margin. Prior history of pancreatitis. IV dialudid started for pain 0.5mg initially, now increased to 1mg Q4hrs. Keep NPO and on IV fluids until pain more controlled. May need pain consult. Prior chart records noted drug seeking behavior; has fired multiple MDs. - Nausea, vomiting, diarrhea. Has improved since arrival. Supportive care for symptoms. - Anxiety. Ativan PRN. 4/3- ask more pain medication -- CT abdomen -- review -- normal pancreas -- ask GI consult -- GI and pain management consult at 1619 RPT #:[id number] END OF REPORT [facility] 2022-07-14 11:09:00 [facility] ([facility]) Hospitalist History Physical REPORT#:[id number] REPORT STATUS: Signed DATE:07/14/22 TIME: 1109 PATIENT: TANNER BENDER UNIT #: [id number] ROOM/BED: [place] [address] : 84 AGE: 36 SEX: M ATTEND: Ila Horvath MD ADM AUTHOR: Isatu Yancey APRN * ALL edits or amendments must be made on the electronic/computer document * History of Present Illness HPI Chief complaint: Abdominal pain LUQ PCP: PCP: No Primary or Family Physician HPI: 36 year old male with history of pancreatitis who presented with complaints of abdominal pain in the left upper quadrant. Outpatient labs with PCP elevated per ED notes He reports pain radiating to back. Associated with nausea, vomiting, and diarrhea. Denies fever, chills, hemoptysis, constipation, melena, or hematochezia. Has not been eating for the last few days due to presenting symptoms. History Past medical history: Reports: Pancreatitis. Additional medical history: Pancreatitis Past surgical history: Reports: Abdominal surgery, Appendectomy, Cholecystectomy. Additional family history: n/c Alcohol use: Denies EtOH use Drug use: Denies recreational drugs Smoking status for patients 13 years old or older: Never Smoker Other social history: Primary family support Additional social history: family hx- unknown Medication/Allergy-Vaccine Hx Allergies: Coded Allergies: Penicillins (Severe, THROAT SWELLS UP 12/24/21) Review of Systems Constitutional: Denies: chills, fever. Skin: Denies: itching, rash. Allergy/Immun: Denies: rhinorrhea, sneezing. Eyes: Denies: redness, discharge, itching. ENT: Denies: nasal congestion, sore throat. Respiratory: Reports: SOB, wheezing. Cardiovascular: Denies: chest pain, edema, palpitations. GI: Reports: abdominal pain, diarrhea, nausea, vomiting. Denies: hematemesis, hematochezia, melena. : Denies: dysuria, hematuria. Musculoskeletal: lumbar pain. Denies: extremity pain, extremity swelling. Heme: Denies: bleeding, bruising. Neuro: Denies: dizziness, lightheaded. All systems rev neg: except as marked Objective General VS/I O: Vital Signs: Date Time Temp Pulse Resp B/P B/P Pulse O2 O2 Flow FiO2 Mean Ox Delivery Rate 07/14 0746 36.4 58 15 106/68 80.9 96 Room air 07/14 0552 36.4 49 16 123/77 92.6 95 07/14 0123 36.4 53 16 151/107 121.8 96 07/13 2255 36.4 53 18 151/106 121.2 99 07/13 2120 61 15 155/105 121.2 95 Room air 07/13 1835 36.9 64 18 146/95 112 99 Room air 24 hour I O ending at 0700: 07/14 0700 07/13 1900 Intake Total Output Total Balance Patient 58.182 kg Weight Weight Stated/Reported Measurement Method PATIENT WEIGHT: Weight (lb): Weight (oz): Weight (kg): 58.182 Medications: Active Meds + DC'd Last 24 Hrs Hydromorphone HCl (DILAUDID) 1 MG Q4H PRN PRN IV Nitroglycerin/Dextrose (NITROGLYCERIN 50,000MCG/D5W 250ML) 250 ML .STK-MED ONE IV (DC) Hydromorphone HCl (DILAUDID) 0.5 MG Q4H PRN PRN IV (DC) Morphine Sulfate (morphine SULFATE) 4 MG Q4H PRN PRN IV (DC) Ondansetron HCl (ZOFRAN) 4 MG Q6H PRN PRN IV Sodium Chloride (SODIUM CHLORIDE 0.9%) 1,000 ML .Q8H IV Ketamine HCl (KETAMINE 500MG/10ML) 11.6364 MG X1ED STA IV (DC) Iopamidol (ISOVUE-300 100ML) 100 ML .STK-MED ONE IV (DC) Ondansetron HCl (ZOFRAN) 4 MG X1ED STA IV (DC) Morphine Sulfate (morphine SULFATE) 4 MG X1ED STA IV (DC) Sodium Chloride (SODIUM CHLORIDE 0.9%) 1,000 ML X1ED STA IV (DC) Physical Exam General appearance: alert, awake, oriented, no acute distress, mental status normal, no respiratory distress Head/Eyes: EOMI, PERRL ENT: moist mucosal membranes, normal dentition Neck: supple/no meningismus, no masses or swelling Cardiovascular: normal heart sounds, regular rate rhythm Respiratory: wheezing (scattered), symmetric expansion, no distress Abdomen: tenderness (mild LUQ), soft, no distention Extremities: no clubbing, no cyanosis, no edema Neuro/BOBBIN DISKER: alert, oriented X 3, normal speech Skin: normal color, normal temperature Psychiatry: normal affect, normal judgment/insight, normal mood Results Findings/Data: Laboratory Tests 07/13 1856 Chemistry Sodium (134 - 147 mEq/L) 140 Potassium (3.4 - 5.0 mEq/L) 3.4 Chloride (100 - 108 mEq/L) 108 Carbon Dioxide (21 - 33 mEq/l) 27 Anion Gap (0 - 20) 8 BUN (7 - 18 mg/dL) 6 L Creatinine (0.6 - 1.3 mg/dL) 1.0 Glomerular Filtr Rate (105 - 110) 99.4 L Glucose (70 - 110 mg/dL) 108 Calcium (8.0 - 10.5 mg/dL) 9.1 Total Bilirubin (0.0 - 1.0 mg/dL) 1.50 H Direct Bilirubin (0.0 - 0.30 MG/DL) 0.50 H Indirect Bilirubin (MG/DL) 1.00 AST (15 - 37 IUnit/L) 19 ALT (30 - 65 IUnit/L) 12 L Total Alk Phosphatase (20 - 125 IUnit/L) 48 Total Protein (6.4 - 8.2 g/dL) 7.3 Albumin (3.4 - 5.0 g/dL) 4.30 Lipase (13 - 57 U/L) 176 H Laboratory Tests 07/13 1856 Hematology WBC (4.5 - 11.0 x10 3/uL) 7.6 RBC (4.00 - 5.60 x10 6/uL) 4.01 Hgb (12.5 - 16.9 g/dL) 12.7 Hct (37.5 - 50.7 %) 36.6 L MCV (81.0 - 99.0 fL) 91.3 MCH (27.0 - 33.0 pg) 31.7 MCHC (33.0 - 37.0 g/dL) 34.7 RDW (11.5 - 14.5 %) 12.2 Plt Count (150 - 400 x10 3/uL) 307 MPV (7.0 - 9.0 fL) 10.3 H Neut % (Auto) (56.0 - 77.0 %) 48.6 L Lymph % (Auto) (14.0 - 32.0 %) 39.0 H Randolph % (Auto) (4.8 - 9.0 %) 8.9 Eos % (Auto) (0.3 - 3.7 %) 2.5 Baso % (Auto) (0.0 - 2.0 %) 0.9 Neut # (Auto) (2.0 - 7.6 x10 3/uL) 3.69 Lymph # (Auto) (1.0 - 3.8 x10 3/uL) 2.97 Randolph # (Auto) (0.1 - 0.8 x10 3/uL) 0.68 Eos # (Auto) (0.0 - 0.2 x10 3/uL) 0.19 Baso # (Auto) (0.0 - 0.2 x10 3/uL) 0.07 Abs Immat Gran (auto) (0.00 - 0.03 x10 3/uL) 0.01 Add Manual Diff NO Immature Gran % (0.0 - 2.0 %) 0.1 Nucleated RBC % (0 - 0 %) 0.0 Nucleated RBCs # (Man) (0.0 - 0.1 x10 3/uL) 0.00 Laboratory Tests 07/13 1946 Urines Urine Color (YEL/STRAW) VERONICA H Urine Appearance (CLEAR) SL CLOUDY Urine pH (5.0 - 7.0) 5.0 Ur Specific [place] (1.005 - 1.030) 1.036 H Urine Protein (NEGATIVE) NEGATIVE Urine Glucose (UA) (NEGATIVE) NEGATIVE Urine Ketones (NEGATIVE) NEGATIVE Urine Blood (NEGATIVE) NEGATIVE Urine Nitrite (NEGATIVE) NEGATIVE Urine Bilirubin (NEGATIVE) NEGATIVE Urine Urobilinogen (0.2 - 1.0 mg/dL) 4.0 H Ur Leukocyte Esterase (NEGATIVE) NEGATIVE Urine RBC (0 - 3 RBC/HPF) 0-3 Urine WBC (0 - 3 WBC/HPF) 0-3 Ur Squamous Epith Cells (NONE SEEN /HPF) 0-5 Calcium Oxalate Crystal (NONE SEEN /HPF) 1+ H Urine Bacteria (NONE SEEN /HPF) NONE SEEN Urine Mucus (NONE SEEN /LPF) 4+ H Radiology data: Recent Impressions: CAT SCAN - CT ABD PELVIS W/CONT 07/14 2003 Report Impression - Status: SIGNED Entered: 07/13/20222119 IMPRESSION: No acute findings. Pancreas has normal appearance. Impression By: [email or web address] - Min Max M.D. Diagnosis, Assessment Plan Plan discussed with: patient, nurse Free Text DxA P Notes Free Text DxA P Notes: Impression: - Left upper quadrant abdominal pain, back pain. CTAP normal. Lipase margin. Prior history of pancreatitis. IV dialudid started for pain 0.5mg initially, now increased to 1mg Q4hrs. Keep NPO and on IV fluids until pain more controlled. May need pain consult. Prior chart records noted drug seeking behavior; has fired multiple MDs. - Nausea, vomiting, diarrhea. Has improved since arrival. Supportive care for symptoms. - Anxiety. Ativan PRN. at 1546 at 1219 RPT #:[id number] END OF REPORT [facility] 2022-07-13 20:43:00 [facility] ([facility]) EMERGENCY PROVIDER REPORT REPORT#:[id number] REPORT STATUS: Signed DATE:07/13/22 TIME: 2042 PATIENT: TANNER BENDER UNIT #: [id number] ROOM/BED: 5511-1 AGE: 36 SEX: M PCP PHYS: No Primary or Family Physician SERVICE AUTHOR: Severiano Newberry * ALL edits or amendments must be made on the electronic/computer document * HPI-Abd Pain M 40 and Over Free Text HPI Notes Free Text HPI Notes 36-year-old male presents to the emergency room with complaint of left upper quadrant pain radiating into his back. Reports onset 8 days ago with increasing nausea and vomiting and diarrhea. He reports the pain is sharp/stabbing was told on Friday by his PCP that his lipase level was elevated. Reports has not eaten in the past 3 days General Initial Greet Date/Time 07/13/22 1855 Presentation Chief Complaint Abdominal pain Sudden in Onset? No Risk-Abd Pain M 40 and Over )( Abdominal Aortic Aneurysm Risk factors reviewed Review of Systems ROS Statements All systems rev neg except as marked. Past Medical History - Adult Stated Complaint LIPASE ELEVATED, MD REFERRED PT, V/M, DIARRHE Allergies Coded Allergies: Penicillins (Severe, THROAT SWELLS UP 12/24/21) Home Medications Active Scripts ALBUTEROL (PROAIR HFA 90 MCG/ACT 8.5 GM) 2 PUFF INH RTQ4H PRN PRN DYSPNEA/ WHEEZING ALBUTEROL (PROAIR HFA 90 MCG/ACT 8.5 GM) 2 PUFF INH RTQ4H PRN PRN DYSPNEA/ WHEEZING #8.5 GM Prov: 03/05/21 Discontinued Scripts guaiFENesin ER (MUCINEX) 1,200 MG PO Q12H guaiFENesin ER (MUCINEX) 1,200 MG PO Q12H #20 TABS Prov: 03/05/21 DC: 07/13/222238 Changed since prior admit BENZONATATE (TESSALON) 100 MG PO Q8H PRN PRN COUGH BENZONATATE (TESSALON) 100 MG PO Q8H PRN PRN COUGH #30 CAPS Prov: 03/05/21 DC: 07/13/222238 Changed since prior admit CLOTRIMAZOLE (CLOTRIMAZOLE 1% 30 GM) 1 APPLIC TOPICAL BID CLOTRIMAZOLE (CLOTRIMAZOLE 1% 30 GM) 1 APPLIC TOPICAL BID #30 GM Ref 2 Prov: 01/29/21 DC: 07/13/222238 Changed since prior admit FLUCONAZOLE (DIFLUCAN) 150 MG PO ONCE WEEKLY FLUCONAZOLE (DIFLUCAN) 150 MG PO ONCE WEEKLY #4 TAB Prov: 01/29/21 DC: 07/13/222238 Changed since prior admit Reported Medications ONDANSETRON (ZOFRAN) 4 MG PO Q6H PRN PRN NAUSEA/VOMITING AMYLASE/LIPASE/PROTEA 120,000/24,000/76,000 U (CREON 24) 24,000 UNITS PO TID MEALS HYDROmorphone (DILAUDID) 4 MG PO Q4H PRN PRN PAIN SCALE 7-10 ALPRAZolam (XANAX) 2 MG PO TID PRN ANXIETY Review of Nursing Notes Triage notes reviewed Past Medical History: Reports: Pancreatitis. Additional Medical History Pancreatitis Past Surgical History: Reports: Abdominal surgery, Appendectomy, Cholecystectomy. Alcohol Use Denies EtOH use Drug Use Denies recreational drugs Smoking status for patients 13 years old or older: Never Smoker Other Social History Primary family support Additional Social History family hx- unknown Physical Exam Vital Signs Vital Signs First Documented: Result Date Time Pulse Ox 99 07/13 1834 B/P 146/95 07/13 1834 B/P Mean 112 07/13 1834 O2 Delivery Room air 07/13 1834 Temp 36.9 07/13 1834 Pulse 64 07/13 1834 Resp 18 07/13 1834 Last Documented: Result Date Time Pulse Ox 95 07/14 2119 B/P 155/105 07/14 2119 B/P Mean 121.2 07/14 2119 O2 Delivery Room air 07/14 2119 Pulse 61 07/14 2119 Resp 15 07/14 2119 Temp 36.9 07/13 1834 Review of Vital Signs Reviewed Focused PE General/Const General/Const Awake, Alert MS Head Head Atraumatic, Normocephalic Eyes Eyes PERRL, EOMI Ears/Nose/Throat Ears/Nose/Throat Atraumatic, Airway patent, Mucous membranes moist Resp/Chest Respiratory/Chest Atraumatic, Breath sounds NL, No respiratory distress Cardiovascular Cardiovascular Heart rate NL, Regular rhythm, Heart sounds NL Abdomen/GI Abdomen/GI Soft MS Back Back Inspection NL Skin Skin Warm, Dry, Intact Neurologic Neurologic Oriented X3, Speech NL, No motor deficits Interpretation Diagnostics Lab Results Interpretation Results Laboratory Tests 07/13/221855: [Embedded Image Not Available] Laboratory Tests: 07/13 Chemistry Sodium (134 - 147 mEq/L) 140 Potassium (3.4 - 5.0 mEq/L) 3.4 Chloride (100 - 108 mEq/L) 108 Carbon Dioxide (21 - 33 mEq/l) 27 Anion Gap (0 - 20) 8 BUN (7 - 18 mg/dL) 6 L Creatinine (0.6 - 1.3 mg/dL) 1.0 Glomerular Filtr Rate (105 - 110) 99.4 L Glucose (70 - 110 mg/dL) 108 Calcium (8.0 - 10.5 mg/dL) 9.1 Total Bilirubin (0.0 - 1.0 mg/dL) 1.50 H Direct Bilirubin (0.0 - 0.30 MG/DL) 0.50 H Indirect Bilirubin (MG/DL) 1.00 AST (15 - 37 IUnit/L) 19 ALT (30 - 65 IUnit/L) 12 L Total Alk Phosphatase (20 - 125 IUnit/L) 48 Total Protein (6.4 - 8.2 g/dL) 7.3 Albumin (3.4 - 5.0 g/dL) 4.30 Lipase (13 - 57 U/L) 176 H Hematology WBC (4.5 - 11.0 x10 3/uL) 7.6 RBC (4.00 - 5.60 x10 6/uL) 4.01 Hgb (12.5 - 16.9 g/dL) 12.7 Hct (37.5 - 50.7 %) 36.6 L MCV (81.0 - 99.0 fL) 91.3 MCH (27.0 - 33.0 pg) 31.7 MCHC (33.0 - 37.0 g/dL) 34.7 RDW (11.5 - 14.5 %) 12.2 Plt Count (150 - 400 x10 3/uL) 307 MPV (7.0 - 9.0 fL) 10.3 H Neut % (Auto) (56.0 - 77.0 %) 48.6 L Lymph % (Auto) (14.0 - 32.0 %) 39.0 H Randolph % (Auto) (4.8 - 9.0 %) 8.9 Eos % (Auto) (0.3 - 3.7 %) 2.5 Baso % (Auto) (0.0 - 2.0 %) 0.9 Neut # (Auto) (2.0 - 7.6 x10 3/uL) 3.69 Lymph # (Auto) (1.0 - 3.8 x10 3/uL) 2.97 Randolph # (Auto) (0.1 - 0.8 x10 3/uL) 0.68 Eos # (Auto) (0.0 - 0.2 x10 3/uL) 0.19 Baso # (Auto) (0.0 - 0.2 x10 3/uL) 0.07 Abs Immat Gran (auto) (0.00 - 0.03 x10 3/uL) 0.01 Add Manual Diff NO Immature Gran % (0.0 - 2.0 %) 0.1 Nucleated RBC % (0 - 0 %) 0.0 Nucleated RBCs # (Man) (0.0 - 0.1 x10 3/uL) 0.00 Urines Urine Color (YEL/STRAW) VERONICA H Urine Appearance (CLEAR) SL CLOUDY Urine pH (5.0 - 7.0) 5.0 Ur Specific [place] (1.005 - 1.030) 1.036 H Urine Protein (NEGATIVE) NEGATIVE Urine Glucose (UA) (NEGATIVE) NEGATIVE Urine Ketones (NEGATIVE) NEGATIVE Urine Blood (NEGATIVE) NEGATIVE Urine Nitrite (NEGATIVE) NEGATIVE Urine Bilirubin (NEGATIVE) NEGATIVE Urine Urobilinogen (0.2 - 1.0 mg/dL) 4.0 H Ur Leukocyte Esterase (NEGATIVE) NEGATIVE Urine RBC (0 - 3 RBC/HPF) 0-3 Urine WBC (0 - 3 WBC/HPF) 0-3 Ur Squamous Epith Cells (NONE SEEN /HPF) 0-5 Calcium Oxalate Crystal (NONE SEEN /HPF) 1+ H Urine Bacteria (NONE SEEN /HPF) NONE SEEN Urine Mucus (NONE SEEN /LPF) 4+ H Recent Impressions: CAT SCAN - CT ABD PELVIS W/CONT 07/14 2003 Report Impression - Status: SIGNED Entered: 07/13/20222119 IMPRESSION: No acute findings. Pancreas has normal appearance. Impression By: Susana Max M.D. Re-Evaluation MDM ED Course Medication(s) Ordered Medication(s) Ordered: Electrolytic, Caloric, And Sneha Sig/José Miguel Start time Last Medication Dose Route Stop Time Status Admin Sodium Chloride 1,000 ML .Q8H 07/13 2199 DC / IV 07/15 2047 1050 Gastrointestinal Drugs Sig/José Miguel Start time Last Medication Dose Route Stop Time Status Admin Ondansetron HCl 4 MG Q6H PRN PRN 07/13 2199 DC IV 07/15 2047 Patient Discharge Departure Vital Signs/Condition Vital Signs First Documented: Result Date Time Pulse Ox 99 07/13 1834 B/P 146/95 07/13 1834 B/P Mean 112 07/13 1834 O2 Delivery Room air 07/13 1834 Temp 36.9 07/13 1834 Pulse 64 07/13 1834 Resp 18 07/13 1834 Last Documented: Result Date Time Pulse Ox 95 07/14 2119 B/P 155/105 07/14 2119 B/P Mean 121.2 07/14 2119 O2 Delivery Room air 07/14 2119 Pulse 61 07/14 2119 Resp 15 07/14 2119 Temp 36.9 07/13 1834 All vital signs available at the time of this entry have been reviewed. Condition Stable Clinical Impression Clinical Impression Primary Impression: Intractable nausea and vomiting Secondary Impressions: Abdominal pain, Chronic pancreatitis Disposition Decision Admit Admit Physician Name Ila Horvath MD Admit Physician Hospitalist Request Time 2141 Request Date 07/13/22 )( Admission Accepts Yes )( Accepted Time 2141 )( Accepted Date 07/13/22 Call Information will see patient Discharge/Care Plan Counseled Regarding Diagnosis, Lab results, Imaging studies, Need for admission Admit Note I have spoken with the patient and/or caregivers. I have explained the patient's condition, diagnoses and treatment plan based on the information available to me at this time. I have answered the patient's and/or caregiver's questions and addressed any concerns. The patient and/or caregivers have as good an understanding of the patient's diagnosis, condition and treatment plan as can be expected at this point. The patient has been stabilized within the capability of the emergency department. The patient will be transported for further care and management or will be moved to an observation or inpatient service. I have communicated with the staff or medical practitioner taking over this patient's care. at 0340 [facility] #:[id number] END OF REPORT [facility] 2021-12-24 18:01:00 [facility] ([facility]) EMERGENCY PROVIDER REPORT REPORT#:[id number] REPORT STATUS: Signed DATE:12/24/21 TIME: 1800 PATIENT: TANNER BENDER UNIT #: [id number] ROOM/BED: AGE: 35 SEX: M PCP PHYS: No Primary or Family Physician SERVICE AUTHOR: Giovanni Victoria [employer] INSPECT[employer] TESTER * ALL edits or amendments must be made on the electronic/computer document * Giovanni Victoria 12/24/211800: HPI-Abd Pain M Under 40 Free Text HPI Notes Free Text HPI Notes 35-year-old male presents complaint of abdominal pain. States he has history of pancreatitis and has had his gallbladder removed and thought that the gallstones were causing his pancreatitis. Points to his epigastric area as location of pain. States the pain started today. Has not had any alcohol he states in well over 1 year. Did not take anything prior to arrival. Denies fever, chills, body aches. 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 General Confirmed Patient Yes (MSE) Initial Greet Date/Time 12/24/21 1730 Presentation Chief Complaint Abdominal pain Review of Systems ROS Statements All systems rev neg except as marked. Focused Review of Systems GI Reports: Abdominal pain. Past Medical History - Adult Stated Complaint ABD PAIN/N/V/D/HX OF PANCREATITIS Allergies Coded Allergies: Penicillins (Severe, THROAT SWELLS UP 12/24/21) Home Medications Active Scripts guaiFENesin ER (MUCINEX) 1,200 MG PO Q12H guaiFENesin ER (MUCINEX) 1,200 MG PO Q12H #20 TABS Prov: 03/05/21 BENZONATATE (TESSALON) 100 MG PO Q8H PRN PRN COUGH BENZONATATE (TESSALON) 100 MG PO Q8H PRN PRN COUGH #30 CAPS Prov: 03/05/21 ALBUTEROL (PROAIR HFA 90 MCG/ACT 8.5 GM) 2 PUFF INH RTQ4H PRN PRN DYSPNEA/ WHEEZING ALBUTEROL (PROAIR HFA 90 MCG/ACT 8.5 GM) 2 PUFF INH RTQ4H PRN PRN DYSPNEA/ WHEEZING #8.5 GM Prov: 03/05/21 CLOTRIMAZOLE (CLOTRIMAZOLE 1% 30 GM) 1 APPLIC TOPICAL BID CLOTRIMAZOLE (CLOTRIMAZOLE 1% 30 GM) 1 APPLIC TOPICAL BID #30 GM Ref 2 Prov: 01/29/21 FLUCONAZOLE (DIFLUCAN) 150 MG PO ONCE WEEKLY FLUCONAZOLE (DIFLUCAN) 150 MG PO ONCE WEEKLY #4 TAB Prov: 01/29/21 Past Medical History: Reports: Asthma. Additional Medical History Pancreatitis Past Surgical History: Reports: Abdominal surgery, Appendectomy, Cholecystectomy. Alcohol Use Denies EtOH use Drug Use Denies recreational drugs Smoking status for patients 13 years old or older: Unknown,if ever smoked Other Social History Primary family support Additional Social History family hx- unknown Physical Exam Vital Signs Vital Signs First Documented: Result Date Time Pulse Ox 100 12/24 1731 B/P 176/92 12 1731 B/P Mean 120 12/24 1731 O2 Delivery Room air 12/24 1731 Temp 37.2 09 1731 Pulse 62 09 1731 Resp 18 12/24 1731 Last Documented: Result Date Time Pulse Ox 100 12/24 1731 B/P 176/92 12 1731 B/P Mean 120 12 1731 O2 Delivery Room air 12/24 1731 Temp 37.2 12 1731 Pulse 62 12 1731 Resp 18 12/24 1731 Review of Vital Signs Reviewed Free Text PE Notes Free Text PE Notes Physical Exam General/Const General/Const Awake, Alert, No acute distress, Well appearing MS Head Head Atraumatic, Normocephalic Eyes Eyes Atraumatic, PERRL Ears/Nose/Throat Ears/Nose/Throat Atraumatic, Airway patent, Mucous membranes moist MS Neck Neck Atraumatic, Supple Resp/Chest Respiratory/Chest Atraumatic, No respiratory distress Cardiovascular Cardiovascular Heart rate NL, Regular rhythm, Heart sounds NL Abdomen/GI Abdomen/GI Atraumatic, Soft, diffuse tenderness, involuntary guarding MS Back Back Atraumatic, Inspection NL, no CVA tenderness Skin Skin Atraumatic, Color NL, No rash Neurologic Neurologic Oriented X3, Speech NL Psychiatric Psychiatric Affect NL, Mood NL Interpretation Diagnostics Lab Results Interpretation Results Laboratory Tests 12/24/211800: [Embedded Image Not Available] Laboratory Tests: 12/24 1800 Chemistry Sodium (134 - 147 mEq/L) 138 Potassium (3.4 - 5.0 mEq/L) 3.7 Chloride (100 - 108 mEq/L) 103 Carbon Dioxide (21 - 33 mEq/l) 28 Anion Gap (0 - 20) 10 BUN (7 - 18 mg/dL) 7 Creatinine (0.6 - 1.3 mg/dL) 0.9 Glomerular Filtr Rate (105 - 110) 95.5 L Glucose (70 - 110 mg/dL) 88 Calcium (8.0 - 10.5 mg/dL) 8.8 Total Bilirubin (0.0 - 1.0 mg/dL) 0.80 Direct Bilirubin (0.0 - 0.30 MG/DL) 0.30 Indirect Bilirubin (MG/DL) 0.50 AST (15 - 37 IUnit/L) 23 ALT (30 - 65 IUnit/L) 17 L Total Alk Phosphatase (20 - 125 IUnit/L) 52 Total Protein (6.4 - 8.2 g/dL) 7.3 Albumin (3.4 - 5.0 g/dL) 4.40 Lipase (13 - 57 U/L) 69 H Hematology WBC (4.5 - 11.0 x10 3/uL) 6.0 RBC (4.00 - 5.60 x10 6/uL) 4.18 Hgb (12.5 - 16.9 g/dL) 13.2 Hct (37.5 - 50.7 %) 39.0 MCV (81.0 - 99.0 fL) 93.3 MCH (27.0 - 33.0 pg) 31.6 MCHC (33.0 - 37.0 g/dL) 33.8 RDW (11.5 - 14.5 %) 12.8 Plt Count (150 - 400 x10 3/uL) 301 MPV (7.0 - 9.0 fL) 10.4 H Neut % (Auto) (56.0 - 77.0 %) 52.1 L Lymph % (Auto) (14.0 - 32.0 %) 35.4 H Randolph % (Auto) (4.8 - 9.0 %) 7.5 Eos % (Auto) (0.3 - 3.7 %) 3.5 Baso % (Auto) (0.0 - 2.0 %) 1.0 Neut # (Auto) (2.0 - 7.6 x10 3/uL) 3.13 Lymph # (Auto) (1.0 - 3.8 x10 3/uL) 2.13 Randolph # (Auto) (0.1 - 0.8 x10 3/uL) 0.45 Eos # (Auto) (0.0 - 0.2 x10 3/uL) 0.21 H Baso # (Auto) (0.0 - 0.2 x10 3/uL) 0.06 Abs Immat Gran (auto) (0.00 - 0.03 x10 3/uL) 0.03 Add Manual Diff NO Immature Gran % (0.0 - 2.0 %) 0.5 Nucleated RBC % (0 - 0 %) 0.0 Nucleated RBCs # (Man) (0.0 - 0.1 x10 3/uL) 0.00 Urines Urine Color (YEL/STRAW) STRAW Urine Appearance (CLEAR) CLEAR Urine pH (5.0 - 7.0) 7.0 Ur Specific [place] (1.005 - 1.030) 1.005 Urine Protein (NEGATIVE) NEGATIVE Urine Glucose (UA) (NEGATIVE) NEGATIVE Urine Ketones (NEGATIVE) NEGATIVE Urine Blood (NEGATIVE) NEGATIVE Urine Nitrite (NEGATIVE) NEGATIVE Urine Bilirubin (NEGATIVE) NEGATIVE Urine Urobilinogen (0.2 - 1.0 mg/dL) 0.2 Ur Leukocyte Esterase (NEGATIVE) NEGATIVE Urine RBC (0 - 3 RBC/HPF) 0-3 Urine WBC (0 - 3 WBC/HPF) 0-3 Ur Squamous Epith Cells (NONE SEEN /HPF) NONE SEEN Urine Bacteria (NONE SEEN /HPF) NONE SEEN Urine Mucus (NONE SEEN /LPF) TRACE Recent Impressions: CAT SCAN - CT ABD PELVIS W/CONT 12/24 1846 Report Impression - Status: SIGNED Entered: 12/24/20211952 IMPRESSION: 1. Enteritis. 2. Mild compression deformities of the superior endplate of T11 through L1. If there is concern for acute fracture, further evaluation with MRI may be obtained. Impression By: Thomas Damon M.D Patient Discharge Departure Vital Signs/Condition Vital Signs First Documented: Result Date Time Pulse Ox 100 12/24 1731 B/P 176/92 / 1731 B/P Mean 120 /12 1731 O2 Delivery Room air 12/24 1731 Temp 37.2 12/24 1731 Pulse 62 12/24 1731 Resp 18 12/24 1731 Last Documented: Result Date Time Pulse Ox 100 12/24 1731 B/P 176/92 12/24 1731 B/P Mean 120 /12 1731 O2 Delivery Room air 12/24 1731 Temp 37.2 12 1731 Pulse 62 / 1731 Resp 18 12/24 1731 All vital signs available at the time of this entry have been reviewed. Fei Diaz 12/24/212034: HPI-Abd Pain M Under 40 Free Text HPI Notes Free Text HPI Notes Agree with history as above, same on my exam. Review of Systems Free Text ROS Notes Free Text ROS Notes Constitutional: Negative for fever, positive for fatigue. Eyes: Negative for eye pain, redness, or vision changes. ENT: Negative for congestion, rhinorrhea, sore throat, difficulty swallowing. Respiratory: Negative for cough, shortness of breath, hemoptysis. Cardiovascular: Negative for chest pain, palpitations. Gastrointestinal: Positive for abdominal pain, nausea, vomiting. Negative for melena, hematochezia. Genitourinary: Negative for hematuria, dysuria, incontinence. Musculoskeletal: Negative for neck pain, back pain, joint pain. Extremities: Negative for swelling in extremities. Hematologic/Lymphatic: Negative for adenopathy. Skin: Negative for rash, bruising. Neurologic: Negative for headache, seizures. Positive Past Medical History - Adult Past Medical History: Reports: Pancreatitis. Past Surgical History: Reports: Abdominal surgery, Appendectomy, Cholecystectomy. Drug Use Denies recreational drugs Physical Exam Vital Signs Review of Vital Signs Reviewed, Vital signs normal Free Text PE Notes Free Text PE Notes GENERAL: Generally well-appearing patient, appropriate appearance for age, no acute distress. HEENT: Normocephalic and atraumatic. Extraocular movements intact. Clear conjunctiva without appreciable pallor or jaundice. Oropharynx clear. NECK: Supple without lymphadenopathy. No stiffness or restricted ROM. CARDIOVASCULAR: Normal rate and regular rhythm, normal S1/S1, no murmurs, rubs, or gallops appreciated. 2+ radial pulse symmetric bilaterally. LUNGS: Clear to auscultation bilaterally, moving air well. No crackles or wheezes are heard. ABDOMEN: Soft, nondistended with normoactive bowel sounds. Negative mclaughlin s sign. Mild tenderness to palpation. No guarding. BACK: No obvious deformity. No CVA tenderness. EXTREMITIES: Without cyanosis, clubbing or edema. Capillary refill appropriate at fingertips <3 seconds. SKIN: Warm and dry without any rashes, lesions, or bruising. No pallor or jaundice appreciated. NEUROLOGICAL: Alert and oriented, moving all 4 extremities. Observed to ambulate with normal gait. Interpretation Diagnostics Lab Results Interpretation Lab Imaging Statement Laboratory radiographic studies reviewed and considered in the medical decision-making. Re-Evaluation MDM Free Text MDM Notes Free Text MDM Notes 35-year-old here with significant recorded history of visits for abdominal pain, history of pancreatitis, multiple abdominal surgeries, reports inability to tolerate p.o. On exam, patient appears in minimal pain, not particularly comfortable, but with no signs of severe tach dehydration. Vital signs otherwise stable. Labs, CT ordered from triage available on my exam. Suggestive of enteritis, labs not suggestive of acute pancreatitis, patient does not meet criteria for acute pancreatitis. Overall fairly encouraging picture for no acute process. But patient reports being in pain. Noted difficulties and therapeutic alliance with prior providers, significant issues controlling pain with opiate medications documented in the record. )( Re-Evaluation/Progress #1 Text/Dict Note Reassessed patient, offer additional medicine of Haldol to assist with refractory abdominal pain as well as nausea, patient declined stating he would like to follow-up with GI outpatient. He stated he would go elsewhere. He acknowledged strict return precautions for any new or worsening pain. Or inability to tolerate p.o. ED Course Medication(s) Ordered Medication(s) Ordered: Central Nervous System Agents Sig/José Miguel Start time Last Medication Dose Route Stop Time Status Admin Haloperidol Lactate 2 MG X1ED STA 12/24 2024 DC IV 12/24 2025 Morphine Sulfate 4 MG X1ED STA 12/24 1800 DC 12/24 IV 12/24 1801 1815 Diagnostic Agents Sig/José Miguel Start time Last Medication Dose Route Stop Time Status Admin Iopamidol 100 ML .STK-MED ONE 12/24 1850 DC 12/24 IV 12/25 1851 185 Electrolytic, Caloric, And Sneha Sig/José Miguel Start time Last Medication Dose Route Stop Time Status Admin Lactated Ringer's 1,000 ML X1ED STA 12/24 1800 DC 12/24 IV 12/24 190 1814 Gastrointestinal Drugs Sig/José Miguel Start time Last Medication Dose Route Stop Time Status Admin Ondansetron HCl 8 MG X1ED STA 12/24 1800 DC 12/24 IV 12/24 180 1814 Patient Discharge Departure Vital Signs/Condition Condition Stable Clinical Impression Clinical Impression Primary Impression: Enteritis Secondary Impressions: Abdominal pain Disposition Decision Discharge )( Discharged to Home Yes )( Time 2035 )( Date 12/24/21 Discharge/Care Plan Patient Instructions ED Abdominal Pain Adult, ED Gastroenteritis, Noninfectious Additional Instructions You have been evaluated in the Emergency Department today for abdominal pain. Your evaluation was not suggestive of any emergent condition requiring medical intervention at this time. However, some abdominal problems make take more time to appear. Therefore, it is important for you to watch for any new symptoms or worsening of your current condition. Please follow up with your primary care physician as needed. If you do not have a primary doctor, you can call your insurance company to find one. If you do not have insurance, you can go to the finance/registration department for more assistance. Return to the Emergency Department if you experience worsening pain, persistent fevers greater than 100.4, recurrent vomiting, blood in vomit, blood in stool, dark tarry stool, chest pain, difficulty breathing, or any other concerning symptoms. Referrals Provider Referral: Horacio Brand MD Follow-Up: Call for appointment Address: [address] [place] [address] [id number] [place] [address] Discharge Note I have spoken with the patient and/or caregivers. I have explained the patient's condition, diagnoses and treatment plan based on the information available to me at this time. I have answered the patient's and/or caregiver's questions and addressed any concerns. The patient and/or caregivers have as good an understanding of the patient's diagnosis, condition and treatment plan as can be expected at this point. The vital signs have been stable. The patient's condition is stable and appropriate for discharge from the emergency department. The patient will pursue further outpatient evaluation with the primary care physician or other designated or consulting physician as outlined in the discharge instructions. The patient and/or caregivers are agreeable to this plan of care and follow-up instructions have been explained in detail. The patient and/or caregivers have received these instructions in written format and have expressed an understanding of the discharge instructions. The patient and/or caregivers are aware that any significant change in condition or worsening of symptoms should prompt an immediate return to this or the closest emergency department or a call to 911. at 2129 at 1629 RPT #:[id number] END OF REPORT [facility] 2021-04-24 05:51:00 [facility] ([facility] EMERGENCY PROVIDER REPORT REPORT#:[id number] REPORT STATUS: Signed DATE:04/24/21 TIME: 05 PATIENT: TANNER BENDER UNIT #: [id number] ROOM/BED: AGE: 35 SEX: M PCP PHYS: Narciso Vee MD SERVICE AUTHOR: Vin Caldera MD * ALL edits or amendments must be made on the electronic/computer document * HPI-Back Pain Under 40 Free Text HPI Notes Free Text HPI Notes 35-year-old male with no significant past medical history presented to the ED with complaints of lower back pain that started about an hour prior to presentation. Patient says that the pain radiates down his right leg. Pain continued to persist so the patient came into the ED for further evaluation. Patient denies any trauma. No tingling or numbness. No urinary or bowel complaints. No similar complaints in the past. General Confirmed Patient Yes Initial Greet Date/Time 04/24/21 0525 Presentation Chief Complaint Pain, lumbar Hx Obtained From Patient )( Sudden in Onset? Yes Onset Occurred Today Symptom Duration Since onset Progression since Onset Constant Location Spinal lumbar area Quality Painful Radiation Leg R, above knee. Migration/Movement None Severity: Onset Moderate Severity: Current Moderate Review of Systems ROS Statements All systems rev neg except as marked. Focused Review of Systems Musculoskeletal Reports: Back pain. Past Medical History - Adult Stated Complaint BACK PAIN Allergies Coded Allergies: Penicillins (Severe, THROAT SWELLS UP 01/29/21) Home Medications Active Scripts guaiFENesin ER (MUCINEX) 1,200 MG PO Q12H guaiFENesin ER (MUCINEX) 1,200 MG PO Q12H #20 TABS Prov: 03/05/21 BENZONATATE (TESSALON) 100 MG PO Q8H PRN PRN COUGH BENZONATATE (TESSALON) 100 MG PO Q8H PRN PRN COUGH #30 CAPS Prov: 03/05/21 ALBUTEROL (PROAIR HFA 90 MCG/ACT 8.5 GM) 2 PUFF INH RTQ4H PRN PRN DYSPNEA/ WHEEZING ALBUTEROL (PROAIR HFA 90 MCG/ACT 8.5 GM) 2 PUFF INH RTQ4H PRN PRN DYSPNEA/ WHEEZING #8.5 GM Prov: 03/05/21 CLOTRIMAZOLE (CLOTRIMAZOLE 1% 30 GM) 1 APPLIC TOPICAL BID CLOTRIMAZOLE (CLOTRIMAZOLE 1% 30 GM) 1 APPLIC TOPICAL BID #30 GM Ref 2 Prov: 01/29/21 FLUCONAZOLE (DIFLUCAN) 150 MG PO ONCE WEEKLY FLUCONAZOLE (DIFLUCAN) 150 MG PO ONCE WEEKLY #4 TAB Prov: 01/29/21 Review of Nursing Notes Rev avail, and agree Past Medical History: Reports: Asthma. Additional Medical History Pancreatitis Past Surgical History: Reports: Abdominal surgery, Appendectomy, Cholecystectomy. Alcohol Use Denies EtOH use Drug Use Denies recreational drugs Smoking status: Smoking status for patients 13 years old or older: Current every day smoker Other Social History Primary family support Additional Social History family hx- unknown Physical Exam Vital Signs Vital Signs First Documented: Result Date Time Pulse Ox 100 04/24 526 B/P 132/81 04/24 526 B/P Mean 98 04/24 526 Temp 36.7 04/24 526 Pulse 69 04/24 526 Resp 04/24 Last Documented: Result Date Time Pulse Ox 100 04/24 526 B/P 132/81 04/24 526 B/P Mean 98 04/24 526 Temp 36.7 04/24 526 Pulse 69 04/24 526 Resp 04/24 Review of Vital Signs Reviewed, Vital signs normal Focused PE General/Const General/Const Awake, Alert, Well appearing MS Neck Neck Atraumatic, Supple, No meningismus, Full range of motion, No swelling, Non-tender, No midline vertebral tend, No masses, No crepitus Resp/Chest Respiratory/Chest Breath sounds NL, Breath sounds = bilat, No respiratory distress, No rales, No rhonchi, No wheezing Cardiovascular Cardiovascular Heart rate NL, Regular rhythm, Heart sounds NL, Peripheral circulation NL Abdomen/GI Abdomen/GI Soft, Non-tender, No guarding, No rebound MS Back Back Inspection NL, Full range of motion, No paraspinal tenderness, Straight leg raise neg Flank/Spine/Paraspinal Lumbar spine tender. Neurologic Neurologic Oriented X3, Speech NL, No motor deficits, No sensory deficits, Reflexes equal bilat Interpretation Diagnostics Point of Care Testing Pulse Oximetry Pulse Ox % 100 On: Room air Interpretation Interpreted by me, Pulse oximetry normal Time 526 Re-Evaluation MDM Free Text MDM Notes Free Text MDM Notes 35-year-old male with no significant past medical history presented to the ED with complaints of low back pain that started about an hour prior to presentation. Lower lumbar tenderness on exam. Patient was ordered pain medications and a CT scan in the ED for further evaluation. Patient left the ED without completion of services. ED Course Medication(s) Ordered Medication(s) Ordered: Central Nervous System Agents Sig/José Miguel Start time Last Medication Dose Route Stop Time Status Admin Tramadol HCl 50 MG X1ED STA 04/24 548 DCr PO 04/24 549 Patient Discharge Departure Vital Signs/Condition Vital Signs First Documented: Result Date Time Pulse Ox 100 04/24 526 B/P 132/81 04/24 526 B/P Mean 98 04/24 526 Temp 36.7 04/24 526 Pulse 69 04/24 526 Resp 18 04/24 526 Last Documented: Result Date Time Pulse Ox 100 04/24 05 B/P 132/81 04/24 05 B/P Mean 98 04/24 526 Temp 36.7 04/24 526 Pulse 69 04/24 526 Resp 18 04/24 526 All vital signs available at the time of this entry have been reviewed. Condition Stable Clinical Impression Clinical Impression Primary Impression: Back pain Disposition Decision Other )( Time 0556 )( Date 04/24/21 Left Prior to MSE Yes at 0433 RPT #:[id number] END OF REPORT [facility] 2021-03-05 01:27:00 [facility] ([facility]) EMERGENCY PROVIDER REPORT REPORT#:[id number] REPORT STATUS: Signed DATE:03/05/21 TIME: 126 PATIENT: TANNER BENDER UNIT #: [id number] ROOM/BED: AGE: 35 SEX: M PCP PHYS: Narciso Vee MD SERVICE AUTHOR: Portia Marrero [employer] * ALL edits or amendments must be made on the electronic/computer document * Portia Marrero 03/05/21126: HPI-URI/Cough/Cold Free Text HPI Notes Free Text HPI Notes 35-year-old male with a history of asthma presents to the emergency room for evaluation of subjective fever, cough, congestion, and sore throat. General Confirmed Patient Yes Patient Type New patient Initial Greet Date/Time 03/05/21121 Presentation Chief Complaint Cough, non-productive Hx Obtained From Patient Review of Systems ROS Statements All systems rev neg except as marked. Focused Review of Systems Constitutional Reports: Fever. Ears/Nose/Throat Reports: Nasal congestion, Sore throat. Respiratory Reports: Cough, non-productive. Free Text ROS Notes Free Text ROS Notes Constitutional: Denies chills, lethargy, malaise, or generalized weakness Eyes: Denies redness, pain, discharge, vision change ENT: Denies earache Respiratory: Denies PEREZ, hemoptysis, SOB, or wheezing Cardiovascular: Denies chest pain, edema, palpitations, or syncope GI: Denies abdominal pain, nausea, vomiting, or diarrhea : Denies dysuria, flank pain Musculoskeletal: Denies back pain, extremity pain, joint pain, or neck pain Skin: Denies rash, laceration, abrasion, or swelling Neurological: Denies bladder dysfunction, bowel dysfunction, change in LOC, focal weakness, dizziness, headache, numbness, tingling Past Medical History - Adult Stated Complaint CHEST PAIN, FATIGUE, SOB,COUGH Allergies Coded Allergies: Penicillins (Severe, THROAT SWELLS UP 01/29/21) Home Medications Active Scripts CLOTRIMAZOLE (CLOTRIMAZOLE 1% 30 GM) 1 APPLIC TOPICAL BID CLOTRIMAZOLE (CLOTRIMAZOLE 1% 30 GM) 1 APPLIC TOPICAL BID #30 GM Ref 2 Prov: 01/29/21 FLUCONAZOLE (DIFLUCAN) 150 MG PO ONCE WEEKLY FLUCONAZOLE (DIFLUCAN) 150 MG PO ONCE WEEKLY #4 TAB Prov: 01/29/21 Review of Nursing Notes Rev avail, and disagree Past Medical History: Reports: Asthma. Additional Medical History Pancreatitis Past Surgical History: Reports: Abdominal surgery, Appendectomy, Cholecystectomy. Alcohol Use Denies EtOH use Drug Use Denies recreational drugs Smoking status: Smoking status for patients 13 years old or older: Never Smoker Other Social History Primary family support Additional Social History family hx- unknown Physical Exam Vital Signs Vital Signs First Documented: Result Date Time Pulse Ox 100 03/05 0126 B/P 129/90 03/05 0126 B/P Mean 103 03/05 012 O2 Delivery Room air 03/05 126 Temp 36.4 03/05 126 Pulse 73 03/05 012 Resp 16 03/05 012 Last Documented: Result Date Time Pulse Ox 100 03/05 0126 B/P 129/90 03/05 0126 B/P Mean 103 03/05 012 O2 Delivery Room air 03/05 126 Temp 36.4 03/05 012 Pulse 73 03/05 012 Resp 16 03/05 0126 Review of Vital Signs Reviewed Focused PE General/Const General/Const Awake, Alert, No acute distress, Well appearing, Well developed , Well hydrated, Well nourished, Cooperative, Not toxic appearing Eyes Eyes Atraumatic, PERRL, Conjunctiva NL Ears/Nose/Throat Ears/Nose/Throat Atraumatic, Airway patent, Mucous membranes moist, No peritonsillar abscess, No pooling of secretions, No trismus, Tympanic membs NL, Ext aud canal NL, Mastoid area NL, Nose exam NL Pharynx/Tonsils/Uvula Pharyngeal erythema. Negative: Tonsillar exudate R, Tonsillar exudate L, Tonsillar swelling R, Tonsillar swelling L, Peritonsil abscess R, Peritonsil abscess L, Uvula deviated R, Uvula deviated L. MS Neck Neck Atraumatic, Supple, No meningismus, Full range of motion, No adenopathy, No swelling, Non-tender Resp/Chest Respiratory/Chest Atraumatic, Breath sounds NL, Breath sounds = bilat, No respiratory distress, No rales, No rhonchi, No wheezing Cardiovascular Cardiovascular Cap refill not delayed, Peripheral circulation NL Abdomen/GI Abdomen/GI Atraumatic, Soft, Non-tender Skin Skin Atraumatic, Color NL, No rash, Warm, Dry, Intact, Turgor NL, No swelling Neurologic Neurologic Oriented X3, Speech NL, Gait NL Interpretation Diagnostics Lab Results Interpretation Results Laboratory Tests: 03/05 Serology SARS-CoV-2 Ag (Rapid) (NEGATIVE) NEGATIVE Streptococcus sp PCR (NEGATIVE) POSITIVE FOR G/C Strep pneumoniae (PCR) (NEGATIVE) NEGATIVE FOR GRP A Microbiology: Date/Time Procedure - Status Source Growth 03/05 132 Group A Streptococcus Screen (NIKKO) - COMP THROAT 03/05 132 Influenza Virus Type B Antigen - COMP NASAL 03/05 132 Influenza Virus Type A Antigen - COMP NASAL Recent Impressions: RADIOLOGY - XR CHEST 1 V 03/05 155 Report Impression - Status: SIGNED Entered: 03/05/2021 0236 IMPRESSION: No acute cardiopulmonary abnormality. Impression By: Thai - William Macias M.D. Point of Care Testing Pulse Oximetry Pulse Ox % 100 On: Room air Interpretation Interpreted by me, Pulse oximetry normal Re-Evaluation MDM Free Text MDM Notes Free Text MDM Notes Patient educated on diagnosis, lab results, imaging results, prescriptions, signs and symptoms of when to return to the ER, need for outpatient follow-up. Instructed to return to ER with new or worsening symptoms. Patient reports he is out of his home albuterol inhaler, will refill at this time. Stable for DC. ED Course Medication(s) Ordered Medication(s) Ordered: Central Nervous System Agents Sig/José Miguel Start time Last Medication Dose Route Stop Time Status Admin Acetaminophen 1,000 MG X1ED STA 03/05 126 DC PO 03/05 127 Patient Discharge Departure Vital Signs/Condition Vital Signs First Documented: Result Date Time Pulse Ox 100 03/05 126 B/P 129/90 03/05 126 B/P Mean 103 03/05 126 O2 Delivery Room air 03/05 126 Temp 36.4 03/05 126 Pulse 73 03/05 126 Resp 16 03/05 126 Last Documented: Result Date Time Pulse Ox 100 03/05 126 B/P 129/90 03/05 126 B/P Mean 103 03/05 126 O2 Delivery Room air 03/05 126 Temp 36.4 03/05 126 Pulse 73 03/05 126 Resp 16 03/05 126 All vital signs available at the time of this entry have been reviewed. Condition Stable Clinical Impression Clinical Impression Primary Impression: URI (upper respiratory infection) Secondary Impressions: Suspected COVID-19 virus infection Disposition Decision Discharge )( Discharged to Home Yes )( Time 0241 )( Date 03/05/21 Discharge/Care Plan Counseled Regarding Diagnosis, Lab results, Imaging studies, Prescriptions, Need for follow-up, When to return to ED (Auto) Prescriptions Current Visit Scripts guaiFENesin ER (MUCINEX) 1,200 MG PO Q12H guaiFENesin ER (MUCINEX) 1,200 MG PO Q12H #20 TABS BENZONATATE (TESSALON) 100 MG PO Q8H PRN PRN COUGH BENZONATATE (TESSALON) 100 MG PO Q8H PRN PRN COUGH #30 CAPS ALBUTEROL (PROAIR HFA 90 MCG/ACT 8.5 GM) 2 PUFF INH RTQ4H PRN PRN DYSPNEA/ WHEEZING ALBUTEROL (PROAIR HFA 90 MCG/ACT 8.5 GM) 2 PUFF INH RTQ4H PRN PRN DYSPNEA/ WHEEZING #8.5 GM Prescriptions Reviewed Risks, Benefits, Alternative treatment Patient Instructions ED URI, Viral, No Abx (Adult) Referrals [facility]: 1-2 Days Discharge Note I have spoken with the patient and/or caregivers. I have explained the patient's condition, diagnoses and treatment plan based on the information available to me at this time. I have answered the patient's and/or caregiver's questions and addressed any concerns. The patient and/or caregivers have as good an understanding of the patient's diagnosis, condition and treatment plan as can be expected at this point. The vital signs have been stable. The patient's condition is stable and appropriate for discharge from the emergency department. The patient will pursue further outpatient evaluation with the primary care physician or other designated or consulting physician as outlined in the discharge instructions. The patient and/or caregivers are agreeable to this plan of care and follow-up instructions have been explained in detail. The patient and/or caregivers have received these instructions in written format and have expressed an understanding of the discharge instructions. The patient and/or caregivers are aware that any significant change in condition or worsening of symptoms should prompt an immediate return to this or the closest emergency department or a call to 911. Quality Measures BP F/U for HTN Referred for BP f/u < 4wk, F/u with PCP/other doc Approp Tx for URI 3 months or older, Dx upper resp infection, Abx not given Smoking Cessation Screened, non user Michele Rowe 03/07/21 0527: Patient Discharge Departure Supervising Physician Note MidLv Saw Pt Alone I have reviewed the PA/RUBBER GOODS INSPECTOR TESTER's note and plan of care. I was available for consultation as needed at all times during the patient's visit in the emergency department. I agree with the clinical impression, plan and disposition. at [phone] at 0527 RPT #:[id number] END OF REPORT [facility] 2021-01-29 17:08:00 [facility] ([facility]) EMERGENCY PROVIDER REPORT REPORT#:[id number] REPORT STATUS: Signed DATE:01/29/21 TIME: 1707 PATIENT: TANNER BENDER UNIT #: [id number] ROOM/BED: AGE: 35 SEX: M PCP PHYS: No Primary or Family Physician SERVICE AUTHOR: Roberta Perez MOTORCYCLE RACER * ALL edits or amendments must be made on the electronic/computer document * Roberta Perez 01/29/21 1708: HPI-Rash/Abscess/Cellulitis General Confirmed Patient Yes Patient Type New patient Initial Greet Date/Time 01/29/21 1652 Presentation Chief Complaint Skin peeling, Sore Hx Obtained From Patient Onset Occurred Chronic Symptom Duration Since onset Associated with Denies: Abdominal pain, Arthralgia, Arthritis, Bleeding, Bruising, Conjunctivitis, Dizziness, Facial swelling, Fever, Headache, Joint pain, Leg swelling, Mouth lesions, Myalgia, Nausea, Red streaking, Shaking chills, Skin sloughing, Sore throat, Upper resp infection, Vomiting, Weakness. Free Text HPI Notes Free Text HPI Notes The patient is a 35-year-old male presents emergency department with complaints of peeling skin and sores between his toes on his left foot for 3 months. Patient reports he has been putting topical cream on it for several weeks with no resolve. Patient denies fever, swelling, pain. Patient is ambulatory no acute distress. Review of Systems ROS Statements All systems rev neg except as marked. Focused Review of Systems Constitutional Denies: Chills, Fever, Lethargy. Ears/Nose/Throat Denies: Earache bilat, Nasal congestion, Sore throat. Respiratory Denies: Cough, non-productive, Cough, productive, Shortness of breath. Cardiovascular Denies: Chest pain, Syncope. GI Denies: Abdominal pain, Diarrhea, Nausea, Vomiting. Musculoskeletal Denies: Back pain, Extremity pain. Skin Reports: Itching. Denies: Abrasion, Erythema, Swelling, Ulceration. Past Medical History - Adult Stated Complaint TOE WOUND Allergies Coded Allergies: Penicillins (Severe, THROAT SWELLS UP 01/29/21) Review of Nursing Notes Triage notes reviewed Past Medical History: Reports: Asthma. Additional Medical History Pancreatitis Past Surgical History: Reports: Abdominal surgery, Appendectomy, Cholecystectomy. Alcohol Use Denies EtOH use Drug Use Denies recreational drugs Smoking status: Smoking status for patients 13 years old or older: Never Smoker Other Social History Primary family support Additional Social History family hx- unknown Physical Exam Vital Signs Vital Signs First Documented: Result Date Time Pulse Ox 100 01/29 1652 B/P 154/89 01/29 165 B/P Mean 110 01/29 165 Temp 36.6 01/29 165 Pulse 60 01/29 165 Resp 18 01/30 1652 Last Documented: Result Date Time Pulse Ox 100 01/29 1652 B/P 154/89 01/29 1652 B/P Mean 110 01/29 1652 Temp 36.6 01/29 165 Pulse 60 01/29 165 Resp 18 01/30 1652 Review of Vital Signs Reviewed Focused PE General/Const General/Const Awake, Alert, Well appearing Ears/Nose/Throat Ears/Nose/Throat Airway patent, Mucous membranes moist, Pharynx NL Resp/Chest Respiratory/Chest Breath sounds NL, Breath sounds = bilat, No respiratory distress, No rales, No rhonchi, No wheezing Cardiovascular Cardiovascular Heart rate NL, Regular rhythm, Heart sounds NL, Peripheral circulation NL MS Upper Extrem Upper Extremity/MS Inspection NL, No swelling, Non-tender, No erythema Skin Skin Color NL, No rash, Warm, Turgor NL, No swelling Text/Dict Notes Erythema and white, macerated skin between the toes of left foot. Neurologic Neurologic Oriented X3, Speech NL, No motor deficits, No sensory deficits Interpretation Diagnostics Point of Care Testing Pulse Oximetry Pulse Ox % 100 On: Room air Re-Evaluation MDM Free Text MDM Notes Free Text MDM Notes Informed patient of exam findings. Educated on diagnoses, supportive measures, treatment, return precautions and need for PCP FU. Community resources given. Patient verbalizes understanding and agrees with plan of care. Patient is nontoxic appearing, asymptomatic in no apparent distress at time of discharge Patient Discharge Departure Vital Signs/Condition Vital Signs First Documented: Result Date Time Pulse Ox 100 01/30 1652 B/P 154/89 01/29 1652 B/P Mean 110 01/30 1652 Temp 36.6 01/30 1652 Pulse 60 01/30 1652 Resp 18 01/30 1652 Last Documented: Result Date Time Pulse Ox 100 01/30 1652 B/P 154/89 01/29 165 B/P Mean 110 01/29 1652 Temp 36.6 01/29 165 Pulse 60 01/29 165 Resp 18 01/30 1652 All vital signs available at the time of this entry have been reviewed. Condition Stable Clinical Impression Clinical Impression Primary Impression: Tinea pedis of left foot Disposition Decision Discharge )( Discharged to Home Yes )( Time 1709 )( Date 01/29/21 Discharge/Care Plan Counseled Regarding Diagnosis, Prescriptions, Need for follow-up, When to return to ED (Auto) Prescriptions Current Visit Scripts CLOTRIMAZOLE (CLOTRIMAZOLE 1% 30 GM) 1 APPLIC TOPICAL BID CLOTRIMAZOLE (CLOTRIMAZOLE 1% 30 GM) 1 APPLIC TOPICAL BID #30 GM Ref 2 FLUCONAZOLE (DIFLUCAN) 150 MG PO ONCE WEEKLY FLUCONAZOLE (DIFLUCAN) 150 MG PO ONCE WEEKLY #4 TAB Prescriptions Reviewed Risks, Benefits, Alternative treatment Patient Instructions ED Athlete's Foot Referrals PRIMARY CARE [facility] Discharge Note I have spoken with the patient and/or caregivers. I have explained the patient's condition, diagnoses and treatment plan based on the information available to me at this time. I have answered the patient's and/or caregiver's questions and addressed any concerns. The patient and/or caregivers have as good an understanding of the patient's diagnosis, condition and treatment plan as can be expected at this point. The vital signs have been stable. The patient's condition is stable and appropriate for discharge from the emergency department. The patient will pursue further outpatient evaluation with the primary care physician or other designated or consulting physician as outlined in the discharge instructions. The patient and/or caregivers are agreeable to this plan of care and follow-up instructions have been explained in detail. The patient and/or caregivers have received these instructions in written format and have expressed an understanding of the discharge instructions. The patient and/or caregivers are aware that any significant change in condition or worsening of symptoms should prompt an immediate return to this or the closest emergency department or a call to 911. Quality Measures BP F/U for HTN Referred for BP f/u < 4wk, F/u with PCP/other doc Current Medications Attest: Medication review Smoking Cessation Screened, tobacco user, Tobacco cess intervention Tobacco Screening/Cessation 18 years or older, Tobacco user, Smoking cessation offered Smoking Cessation Counseling The patient was questioned regarding their smoking habits, and I have determined , as the patient's treating physician, that there is a medical necessity in regards to the patient's medical condition to provide smoking cessation program education. The patient was advised to stop smoking and counseled for a period of greater than 3 minutes. The patient was instructed to follow up with a primary care physician for smoking cessation and given information regarding local smoking cessation programs in the area. The patient received detailed discharge instructions as to how to stop smoking. The patient expressed an understanding of the need to follow up and the plan for smoking cessation. Thor Olmedo V 01/29/21 1828: Patient Discharge Departure Supervising Physician Note MidLv Saw Pt Alone I have reviewed the PA/RUBBER GOODS INSPECTOR TESTER's note and plan of care. I was available for consultation as needed at all times during the patient's visit in the emergency department. I agree with the clinical impression, plan and disposition. at 1727 at 1828 [facility] #:[id number] END OF REPORT [facility] 2020-08-10 13:25:00 [facility]) EMERGENCY PROVIDER REPORT REPORT#:[id number] REPORT STATUS: Signed DATE:08/10/20 TIME: 1325 PATIENT: TANNER BENDER UNIT #: [id number] ROOM/BED: AGE: 34 SEX: M PCP PHYS: No Primary or Family Physician SERVICE AUTHOR: Mónica Howell RUBBER GOODS INSPECTOR TESTER * ALL edits or amendments must be made on the electronic/computer document * HPI-Abd Pain M Under 40 Free Text HPI Notes Free Text HPI Notes 34-year-old male PMH of pancreatitis presents for diffuse abdominal pain. Patient was seen here on 07/31/2020 left AMA prior to CT scan. Records reviewed by me unremarkable labs. No additional discrete fever, chills, sweats, chest pain, shortness breath, cough, back pain, change in bladder bowel function habit , melena, dyschezia, dysuria, hematuria. General Confirmed Patient Yes Patient Type New patient Initial Greet Date/Time 08/10/20 1314 Presentation Chief Complaint Abdominal pain Hx Obtained From Patient Sudden in Onset? No Onset Occurred One week ago Symptom Duration Since onset Progression since Onset Intermittent Caused by No trauma by history Location Diffuse Severity: Onset Mild Severity: Current Moderate Context Immunization Status General All up to date Risk-Abd Pain M Under 40 )( Torsion Risk factors reviewed Review of Systems ROS Statements All systems rev neg except as marked. Focused Review of Systems GI Reports: Abdominal pain. Past Medical History - Adult Stated Complaint ABDOMEN PAIN 1 WEEK Allergies Coded Allergies: Penicillins (Severe, THROAT SWELLS UP 05/03/20) Home Medications Reported Medications No Known Home Medications Past Medical History: Reports: Asthma. Additional Medical History Pancreatitis Past Surgical History: Reports: Abdominal surgery, Appendectomy, Cholecystectomy. Alcohol Use Denies EtOH use Drug Use Denies recreational drugs Smoking status: Smoking status for patients 13 years old or older: Current every day smoker Other Social History Primary family support Additional Social History family hx- unknown Physical Exam Vital Signs Vital Signs First Documented: Result Date Time Pulse Ox 100 08/10 1315 B/P 132/72 08/10 1315 B/P Mean 92 08/10 131 Temp 36.7 08/10 131 Pulse 68 08/10 1315 Resp 16 08/10 131 Last Documented: Result Date Time Pulse Ox 100 08/10 1314 B/P 132/72 08/10 1314 B/P Mean 92 08/10 1314 Temp 36.7 08/10 1314 Pulse 68 08/10 1314 Resp 16 08/10 1314 Review of Vital Signs Reviewed Focused PE General/Const General/Const Awake, Alert, Well appearing Resp/Chest Respiratory/Chest Breath sounds NL, Breath sounds = bilat, No respiratory distress, No rales, No rhonchi, No wheezing Cardiovascular Cardiovascular Heart rate NL, Regular rhythm, Heart sounds NL, Peripheral circulation NL Abdomen/GI Abdomen/GI Soft, McBurney's non-tender, No guarding, No rebound, BS normoactive, No distention, No hernia, No palpable mass Tenderness/Guarding/Rebound Tender diffuse. MS Back Back Inspection NL, Non-tender, No CVA tenderness Skin Skin Color NL, Warm, Dry, Turgor NL Neurologic Neurologic Oriented X3, Speech NL, No motor deficits, No sensory deficits Interpretation Diagnostics Lab Results Interpretation Results Laboratory Tests 08/10/20 1347: [Embedded Image Not Available] Laboratory Tests: 08/10 1346 Chemistry Sodium (136 - 145 mmol/L) 138 Potassium (3.5 - 5.1 mmol/L) 3.8 Chloride (98 - 107 mmol/L) 106.0 Carbon Dioxide (21 - 32 mmol/L) 29.0 Anion Gap (10 - 20) 6.8 L BUN (7 - 18 mg/dL) 6 L Creatinine (0.7 - 1.3 mg/dL) 0.90 Glomerular Filtr Rate (>=60 mL/min) > 60 BUN/Creatinine Ratio (10 - 20) 6.5 L Glucose (74 - 106 mg/dL) 107 H Calcium (8.5 - 10.1 mg/dL) 9.2 Total Bilirubin (0.0 - 1.0 mg/dL) 0.50 Direct Bilirubin (0.0 - 0.20 mg/dL) 0.20 AST (15 - 37 IUnit/L) 16 ALT (12 - 78 IUnit/L) 19 Total Alk Phosphatase (45 - 117 IUnit/L) 62 Total Protein (6.4 - 8.2 gram/dL) 7.1 Albumin (3.4 - 5.0 g/dL) 3.9 Globulin (2.7 - 4.2 gram/dL) 3.2 Albumin/Globulin Ratio (0.75 - 1.50) 1.2 Lipase (12 - 57 U/L) 171 H Hematology WBC (4.5 - 12.5 K/mm3) 6.0 RBC (4.0 - 5.8 mill/mm3) 4.64 Hgb (13.0 - 17.5 gram/dL) 14.5 Hct (42.0 - 52.0 %) 43.4 MCV (80 - 98 fL) 93.5 MCH (27.0 - 33.0 picogram) 31.3 MCHC (33.0 - 36.0 gram/dL) 33.4 RDW (11.6 - 16.2 %) 12.7 Plt Count (150 - 450 K/mm3) 326 MPV (6.7 - 11.0 fL) 10.4 Lab Imaging Statement Laboratory radiographic studies reviewed and considered in the medical decision-making. Point of Care Testing Pulse Oximetry Pulse Ox % 100 On: Room air Interpretation Interpreted by nm Time 1317 Re-Evaluation MDM Free Text MDM Notes Free Text MDM Notes This patient has elected to leave AGAINST MEDICAL ADVICE. I had a discussion with the patient regarding the work-up and results. I explained the risks of leaving without further work-up or treatment which included reasonably foreseeable complications. I have asked the patient to follow-up with their primary care doctor and answered all questions. )( Re-Evaluation/Progress #1 Text/Dict Note Patient requesting to leave AGAINST MEDICAL ADVICE. Labs and CT not complete at time of patient departure. Patient reports he will follow-up with his own GI specialist. Time of Re-Eval 142 )( Re-Eval Status Improved ED Course Medication(s) Ordered Medication(s) Ordered: Central Nervous System Agents Sig/José Miguel Start time Last Medication Dose Route Stop Time Status Admin Ketorolac 30 MG X1ED STA 08/10 1318 DC 08/10 Tromethamine IV 08/10 1319 1407 Electrolytic, Caloric, And Sneha Sig/José Miguel Start time Last Medication Dose Route Stop Time Status Admin Sodium Chloride 1,000 ML X1ED STA 08/10 1318 DC 08/10 IV 08/10 1417 1408 Gastrointestinal Drugs Sig/José Miguel Start time Last Medication Dose Route Stop Time Status Admin Ondansetron HCl 4 MG X1ED PRN PRN 08/10 1330 DC 08/10 IV 1407 Famotidine 20 MG X1ED STA 08/10 1319 DC 08/10 IV 08/10 1320 1406 Patient Discharge Departure Vital Signs/Condition Vital Signs First Documented: Result Date Time Pulse Ox 100 08/10 1315 B/P 132/72 08/10 1315 B/P Mean 92 08/10 1315 Temp 36.7 08/10 1315 Pulse 68 08/10 1315 Resp 16 08/10 1315 Last Documented: Result Date Time Pulse Ox 100 08/10 1315 B/P 132/72 08/10 1315 B/P Mean 92 08/10 1315 Temp 36.7 08/10 1315 Pulse 68 08/10 1315 Resp 16 08/10 1315 All vital signs available at the time of this entry have been reviewed. Condition Stable Clinical Impression Clinical Impression Primary Impression: Abdominal pain Secondary Impressions: Left against medical advice Disposition Decision Other )( Time 1430 )( Date 08/10/20 Against Medical Advice Yes Discharge/Care Plan (Auto) Prescriptions Current Visit Scripts No Known Home Medications at 1450 RPT #:[id number] END OF REPORT [facility] 2020-08-10 13:25:00 [facility] ([facility]) EMERGENCY PROVIDER REPORT REPORT#:[id number] REPORT STATUS: Signed DATE:08/10/20 TIME: 1325 PATIENT: TANNER BENDER UNIT #: [id number] ROOM/BED: AGE: 34 SEX: M PCP PHYS: No Primary or Family Physician SERVICE AUTHOR: Mónica Howell RUBBER GOODS INSPECTOR TESTER * ALL edits or amendments must be made on the electronic/computer document * Mónica Howell 08/10/20 1325: HPI-Abd Pain M Under 40 Free Text HPI Notes Free Text HPI Notes 34-year-old male PMH of pancreatitis presents for diffuse abdominal pain. Patient was seen here on 07/31/2020 left AMA prior to CT scan. Records reviewed by me unremarkable labs. No additional discrete fever, chills, sweats, chest pain, shortness breath, cough, back pain, change in bladder bowel function habit , melena, dyschezia, dysuria, hematuria. General Confirmed Patient Yes Patient Type New patient Initial Greet Date/Time 08/10/20 1314 Presentation Chief Complaint Abdominal pain Hx Obtained From Patient Sudden in Onset? No Onset Occurred One week ago Symptom Duration Since onset Progression since Onset Intermittent Caused by No trauma by history Location Diffuse Severity: Onset Mild Severity: Current Moderate Context Immunization Status General All up to date Risk-Abd Pain M Under 40 )( Torsion Risk factors reviewed Review of Systems ROS Statements All systems rev neg except as marked. Focused Review of Systems GI Reports: Abdominal pain. Past Medical History - Adult Stated Complaint ABDOMEN PAIN 1 WEEK Allergies Coded Allergies: Penicillins (Severe, THROAT SWELLS UP 05/03/20) Home Medications Reported Medications No Known Home Medications Past Medical History: Reports: Asthma. Additional Medical History Pancreatitis Past Surgical History: Reports: Abdominal surgery, Appendectomy, Cholecystectomy. Alcohol Use Denies EtOH use Drug Use Denies recreational drugs Smoking status: Smoking status for patients 13 years old or older: Current every day smoker Other Social History Primary family support Additional Social History family hx- unknown Physical Exam Vital Signs Vital Signs First Documented: Result Date Time Pulse Ox 100 08/10 1315 B/P 132/72 08/10 1315 B/P Mean 92 08/10 1315 Temp 36.7 08/10 1315 Pulse 68 08/10 1315 Resp 16 08/10 1315 Last Documented: Result Date Time Pulse Ox 100 08/10 1315 B/P 132/72 08/10 1315 B/P Mean 92 08/10 1315 Temp 36.7 08/10 1315 Pulse 68 08/10 1315 Resp 16 08/10 1315 Review of Vital Signs Reviewed Focused PE General/Const General/Const Awake, Alert, Well appearing Resp/Chest Respiratory/Chest Breath sounds NL, Breath sounds = bilat, No respiratory distress, No rales, No rhonchi, No wheezing Cardiovascular Cardiovascular Heart rate NL, Regular rhythm, Heart sounds NL, Peripheral circulation NL Abdomen/GI Abdomen/GI Soft, McBurney's non-tender, No guarding, No rebound, BS normoactive, No distention, No hernia, No palpable mass Tenderness/Guarding/Rebound Tender diffuse. MS Back Back Inspection NL, Non-tender, No CVA tenderness Skin Skin Color NL, Warm, Dry, Turgor NL Neurologic Neurologic Oriented X3, Speech NL, No motor deficits, No sensory deficits Interpretation Diagnostics Lab Results Interpretation Results Laboratory Tests 08/10/20 1347: [Embedded Image Not Available] Laboratory Tests: 08/10 1346 Chemistry Sodium (136 - 145 mmol/L) 138 Potassium (3.5 - 5.1 mmol/L) 3.8 Chloride (98 - 107 mmol/L) 106.0 Carbon Dioxide (21 - 32 mmol/L) 29.0 Anion Gap (10 - 20) 6.8 L BUN (7 - 18 mg/dL) 6 L Creatinine (0.7 - 1.3 mg/dL) 0.90 Glomerular Filtr Rate (>=60 mL/min) > 60 BUN/Creatinine Ratio (10 - 20) 6.5 L Glucose (74 - 106 mg/dL) 107 H Calcium (8.5 - 10.1 mg/dL) 9.2 Total Bilirubin (0.0 - 1.0 mg/dL) 0.50 Direct Bilirubin (0.0 - 0.20 mg/dL) 0.20 AST (15 - 37 IUnit/L) 16 ALT (12 - 78 IUnit/L) 19 Total Alk Phosphatase (45 - 117 IUnit/L) 62 Total Protein (6.4 - 8.2 gram/dL) 7.1 Albumin (3.4 - 5.0 g/dL) 3.9 Globulin (2.7 - 4.2 gram/dL) 3.2 Albumin/Globulin Ratio (0.75 - 1.50) 1.2 Lipase (12 - 57 U/L) 171 H Hematology WBC (4.5 - 12.5 K/mm3) 6.0 RBC (4.0 - 5.8 mill/mm3) 4.64 Hgb (13.0 - 17.5 gram/dL) 14.5 Hct (42.0 - 52.0 %) 43.4 MCV (80 - 98 fL) 93.5 MCH (27.0 - 33.0 picogram) 31.3 MCHC (33.0 - 36.0 gram/dL) 33.4 RDW (11.6 - 16.2 %) 12.7 Plt Count (150 - 450 K/mm3) 326 MPV (6.7 - 11.0 fL) 10.4 Lab Imaging Statement Laboratory radiographic studies reviewed and considered in the medical decision-making. Point of Care Testing Pulse Oximetry Pulse Ox % 100 On: Room air Interpretation Interpreted by nm Time 1317 Re-Evaluation MDM Free Text MDM Notes Free Text MDM Notes This patient has elected to leave AGAINST MEDICAL ADVICE. I had a discussion with the patient regarding the work-up and results. I explained the risks of leaving without further work-up or treatment which included reasonably foreseeable complications. I have asked the patient to follow-up with their primary care doctor and answered all questions. )( Re-Evaluation/Progress #1 Text/Dict Note Patient requesting to leave AGAINST MEDICAL ADVICE. Labs and CT not complete at time of patient departure. Patient reports he will follow-up with his own GI specialist. Time of Re-Eval 1428 )( Re-Eval Status Improved ED Course Medication(s) Ordered Medication(s) Ordered: Central Nervous System Agents Sig/José Miguel Start time Last Medication Dose Route Stop Time Status Admin Ketorolac 30 MG X1ED STA 08/10 1318 DC 08/10 Tromethamine IV 08/10 1319 1407 Electrolytic, Caloric, And Sneha Sig/José Miguel Start time Last Medication Dose Route Stop Time Status Admin Sodium Chloride 1,000 ML X1ED STA 08/10 1318 DC 08/10 IV 08/10 1417 1408 Gastrointestinal Drugs Sig/José Miguel Start time Last Medication Dose Route Stop Time Status Admin Ondansetron HCl 4 MG X1ED PRN PRN 08/10 1330 DC 08/10 IV 1407 Famotidine 20 MG X1ED STA 08/10 1319 DC 08/10 IV 08/10 1320 1406 Patient Discharge Departure Vital Signs/Condition Vital Signs First Documented: Result Date Time Pulse Ox 100 08/10 1315 B/P 132/72 08/10 1315 B/P Mean 92 08/10 1315 Temp 36.7 08/10 1315 Pulse 68 08/10 1315 Resp 16 08/10 1315 Last Documented: Result Date Time Pulse Ox 100 08/10 1315 B/P 132/72 08/10 1315 B/P Mean 92 08/10 1315 Temp 36.7 08/10 1315 Pulse 68 08/10 1315 Resp 16 08/10 1315 All vital signs available at the time of this entry have been reviewed. Condition Stable Clinical Impression Clinical Impression Primary Impression: Abdominal pain Secondary Impressions: Left against medical advice Disposition Decision Other )( Time 1430 )( Date 08/10/20 Against Medical Advice Yes Discharge/Care Plan (Auto) Prescriptions Current Visit Scripts No Known Home Medications Amy Preciado. 08/10/20 1632: Patient Discharge Departure Supervising Physician Note Jaxon Saw Pt Alone I have reviewed the PA/RUBBER GOODS INSPECTOR TESTER's note and plan of care. I was available for consultation as needed at all times during the patient's visit in the emergency department. at 1450 at 1633 RPT #:[id number] END OF REPORT [facility] 2020-07-31 13:29:00 [facility] ([facility]) EMERGENCY PROVIDER REPORT REPORT#:[id number] REPORT STATUS: Signed DATE:07/31/20 TIME: 1329 PATIENT: TANNER BENDER UNIT #: [id number] ROOM/BED: AGE: 34 SEX: M PCP PHYS: No Primary or Family Physician SERVICE AUTHOR: Chava Caputo DO * ALL edits or amendments must be made on the electronic/computer document * HPI-Abd Pain M 40 and Over General Initial Greet Date/Time 07/31/20 1311 Presentation Chief Complaint Abdominal pain, Diarrhea mild, Nausea, VOMITING, RECTAL BLEEDING Sudden in Onset? Yes Free Text HPI Notes Free Text HPI Notes Patient is a 34-year-old male presenting for abdominal pain and rectal bleeding. Patient states that the pain started on Friday has been constant. Is located in right upper quadrant and associated with 4-5 episodes of nausea and vomiting. He states that the pain is now radiating down his back and he was complaining of a fever of 101 F. He states that the pain is worse with eating and last night, he had dark red blood in his stool. He also complains of lightheadedness when standing. Review of Systems ROS Statements All systems rev neg except as marked. Free Text ROS Notes Free Text ROS Notes Constitutional: Denies: Fatigue, Malaise, positive for chills, Fever, EYES: No redness, HENT: Negative for ear pain, sore throat, rhinorrhea, congestion Respiratory: Denies: Dyspnea on exertion, Shortness of breath, Cough, non- productive, Cardiovascular: Denies: Chest pain, Dyspnea on exertion, Palpitations. GI: Positive for abdominal pain, Diarrhea, Nausea, Vomiting. : Negative for dysuria, urinary frequency changes. NEURO: No focal deficit, no headache, positive for lightheadedness/dizziness HEM: No bleeding/bruising, MSK: Denies: Back pain. no neck pain SKIN: Denies rash, PSYCH: Denies suicidal ideation, anxiety Past Medical History - Adult Stated Complaint COUGH, FEVER,BLOOD IN STOOL Allergies Coded Allergies: Penicillins (Severe, THROAT SWELLS UP 05/03/20) Home Medications Discontinued Scripts PREGABALIN (LYRICA) 75 MG PO Q8HR PREGABALIN (LYRICA) 75 MG PO Q8HR #60 CAP Prov: 01/28/20 DC: 07/31/20 1330 Therapy completed DICYCLOMINE (BENTYL) 20 MG PO QID DICYCLOMINE (BENTYL) 20 MG PO QID #30 TABS Prov: 02/21/20 DC: 07/31/20 1330 Therapy completed ONDANSETRON ODT (ZOFRAN ODT) 4 MG PO Q6H PRN PRN NAUSEA/VOMITING ONDANSETRON ODT (ZOFRAN ODT) 4 MG PO Q6H PRN PRN NAUSEA/VOMITING #15 TABS Prov: 02/21/20 DC: 07/31/20 1330 Therapy completed Reported Medications No Known Home Medications Discontinued Reported Medications LORazepam (ATIVAN) 2 MG PO TID HYDROmorphone (DILAUDID) 2 MG PO Q4H PRN PRN PAIN AMYLASE/LIPASE/PROTEA 120,000/24,000/76,000 U (CREON 24) 24,000 UNITS PO TID MEALS ONDANSETRON (ZOFRAN) 8 MG PO TID ALBUTEROL (ALBUTEROL 2.5 MG/3 ML (75mL)) 2.5 MG NEB RTTID Calculated Suicide Risk (nurs) No risk Past Medical History: Reports: Asthma. Additional Medical History Pancreatitis Past Surgical History: Reports: Abdominal surgery, Appendectomy, Cholecystectomy. Alcohol Use Denies EtOH use Drug Use Denies recreational drugs Smoking status: Smoking status for patients 13 years old or older: Never Smoker Other Social History Primary family support Additional Social History family hx- unknown Physical Exam Vital Signs Vital Signs First Documented: Result Date Time Pulse Ox 99 07/31 1312 B/P 147/98 07/31 131 B/P Mean 114 07/31 131 O2 Delivery Room air 08/01 1311 Temp 36.8 08/01 1311 Pulse 66 07/31 131 Resp 14 08/01 1311 Last Documented: Result Date Time Pulse Ox 99 08/01 1311 B/P 147/98 08/01 1311 B/P Mean 114 07/31 1312 O2 Delivery Room air 08/01 1311 Temp 36.8 08/01 1311 Pulse 66 07/31 131 Resp 14 08/01 1311 Review of Vital Signs Reviewed Free Text PE Notes Free Text PE Notes GENERAL/CONST: Awake, Alert, No acute distress, Cooperative EYES: EOM intact HENT: Airway patent, Mucous membranes moist RESP/CHEST: Breath sounds NL, Breath sounds = bilat, No respiratory distress, normal respiratory rate CARDIOVASCULAR: Heart rate NL, Regular rhythm, Heart sounds NL ABDOMEN/GI : Abdomen/GI Soft, mild tenderness to right upper quadrant, No guarding, negative Mclaughlin's sign, negative McBurney's point MS: Back Inspection NL, Non-tender MS Lower Extrem: no pitting edema to BLE. Legs are symmetric. SKIN No rash, Warm, Dry NEUROLOGIC: Oriented X3, Speech NL, CN II-XII intact Interpretation Diagnostics Lab Results Interpretation Results Laboratory Tests 07/31/201331: [Embedded Image Not Available] Laboratory Tests: 08/01 1331 Chemistry Sodium (136 - 145 mmol/L) 137 Potassium (3.5 - 5.1 mmol/L) 4.5 Chloride (98 - 107 mmol/L) 106.0 Carbon Dioxide (21 - 32 mmol/L) 26.0 Anion Gap (10 - 20) 9.5 L BUN (7 - 18 mg/dL) 6 L Creatinine (0.7 - 1.3 mg/dL) 1.00 Glomerular Filtr Rate (>=60 mL/min) > 60 BUN/Creatinine Ratio (10 - 20) 5.9 L Glucose (74 - 106 mg/dL) 91 Calcium (8.5 - 10.1 mg/dL) 9.4 Total Bilirubin (0.0 - 1.0 mg/dL) 1.00 Direct Bilirubin (0.0 - 0.20 mg/dL) 0.30 H AST (15 - 37 IUnit/L) 22 ALT (12 - 78 IUnit/L) 18 Total Alk Phosphatase (45 - 117 IUnit/L) 68 Total Protein (6.4 - 8.2 gram/dL) 8.0 Albumin (3.4 - 5.0 g/dL) 4.7 Globulin (2.7 - 4.2 gram/dL) 3.3 Albumin/Globulin Ratio (0.75 - 1.50) 1.4 Lipase (12 - 57 U/L) 48 Hematology WBC (4.5 - 12.5 K/mm3) 7.5 RBC (4.0 - 5.8 mill/mm3) 5.06 Hgb (13.0 - 17.5 gram/dL) 15.6 Hct (42.0 - 52.0 %) 47.1 MCV (80 - 98 fL) 93.1 MCH (27.0 - 33.0 picogram) 30.8 MCHC (33.0 - 36.0 gram/dL) 33.1 RDW (11.6 - 16.2 %) 12.7 Plt Count (150 - 450 K/mm3) 296 MPV (6.7 - 11.0 fL) 10.4 Urines Urine Color (YELLOW) YELLOW Urine Appearance (CLEAR) CLEAR Urine pH (5.0 - 8.0) 6.0 Ur Specific [place] (1.001 - 1.035) 1.025 Urine Protein (Neg - 15 mg/dL) NEGATIVE Urine Glucose (UA) (NEGATIVE mg/dL) NEGATIVE Urine Ketones (NEGATIVE mg/dL) NEGATIVE Urine Blood (NEGATIVE) NEGATIVE Urine Nitrite (NEGATIVE) NEGATIVE Urine Bilirubin (NEGATIVE) NEGATIVE Urine Urobilinogen (0.0 - 0.2 mg/dL) 0.2 Ur Leukocyte Esterase (NEGATIVE) NEGATIVE Urine RBC (0 - 5 per HPF) 0-2 Urine WBC (0 - 5 per HPF) 0-5 Ur Epithelial Cells (Few per HPF) Rare (0-1/hpf) Urine Bacteria (NONE per HPF) NONE SEEN Re-Evaluation MDM Free Text MDM Notes Free Text MDM Notes Patient left AMA. I was unable to discuss risks of leaving AMA but nursing staff was able to do so. CT was not performed prior to patient leaving. ED Course Medication(s) Ordered Medication(s) Ordered: Central Nervous System Agents Sig/José Miguel Start time Last Medication Dose Route Stop Time Status Admin Hydromorphone HCl 1 MG X1ED STA 07/31 1528 DC IV 07/31 1529 Morphine Sulfate 4 MG X1ED STA 07/31 1327 DC 07/31 IV 07/31 1328 1344 Electrolytic, Caloric, And Sneha Sig/José Miguel Start time Last Medication Dose Route Stop Time Status Admin Sodium Chloride 1,000 ML X1ED STA 07/31 1327 DC 07/31 IV 07/31 1426 1343 Gastrointestinal Drugs Sig/José Miguel Start time Last Medication Dose Route Stop Time Status Admin Ondansetron HCl 4 MG X1ED PRN PRN 07/31 1330 DC 07/31 IV 1344 Patient Discharge Departure Vital Signs/Condition Vital Signs First Documented: Result Date Time Pulse Ox 99 07/31 1312 B/P 147/98 07/31 1312 B/P Mean 114 07/31 1312 O2 Delivery Room air 07/31 1312 Temp 36.8 07/31 1312 Pulse 66 07/31 1312 Resp 14 07/31 1312 Last Documented: Result Date Time Pulse Ox 99 07/31 1312 B/P 147/98 07/31 1312 B/P Mean 114 07/31 1312 O2 Delivery Room air 07/31 1312 Temp 36.8 07/31 1312 Pulse 66 07/31 1312 Resp 14 07/31 1312 All vital signs available at the time of this entry have been reviewed. Clinical Impression Clinical Impression Primary Impression: Abdominal pain Secondary Impressions: Nausea and vomiting, Rectal bleeding Time of Impression 1658 Disposition Decision Other )( Time 1526 )( Date 07/31/20 Against Medical Advice Yes Discharge/Care Plan (Auto) Prescriptions Current Visit Scripts No Known Home Medications at 1700 RPT #:[id number] END OF REPORT [facility] 2020-07-28 20:32:00 [facility] ([facility]) EMERGENCY PROVIDER REPORT REPORT#:[id number] REPORT STATUS: Signed DATE:07/28/20 TIME: 2031 PATIENT: TANNER BENDER UNIT #: [id number] ROOM/BED: AGE: 34 SEX: M PCP PHYS: No Primary or Family Physician SERVICE AUTHOR: Iggy Copeland MD * ALL edits or amendments must be made on the electronic/computer document * HPI-Abd Pain M Under 40 General Initial Greet Date/Time 07/28/202005 Presentation Chief Complaint Abdominal pain Hx Obtained From Patient Sudden in Onset? No Onset Occurred Days ago Symptom Duration Since onset Progression since Onset Unchanged Caused by No trauma by history Location Abdomen upper Quality Same as prior, Aching Radiation Does not radiate. Migration/Movement None Severity: Onset Mild Severity: Current Moderate Associated with Denies: Chest pain, Fever, Hematemesis, Hematochezia, Melena, Shortness of breath. Exacerbated by Eating Relieved by Nothing Free Text HPI Notes Free Text HPI Notes Patient states he is having upper abdominal pain which feels like his pancreatitis in the past. Denies chest pain, tightness, or pressure, sob, lightheadedness, syncope, exertional symptoms, sweating, arm pain, back pain, or jaw pain. Denies fever or bleeding per any orifice. Risk-Abd Pain M Under 40 )( Torsion Risk factors reviewed Review of Systems ROS Statements All systems rev neg except as marked. Focused Review of Systems Respiratory Denies: Cough, non-productive, Cough, productive, Shortness of breath. Cardiovascular Denies: Chest pain, Syncope. Past Medical History - Adult Stated Complaint ABDOMINAL PAIN Allergies Coded Allergies: Penicillins (Severe, THROAT SWELLS UP 05/03/20) Home Medications Active Scripts PREGABALIN (LYRICA) 75 MG PO Q8HR PREGABALIN (LYRICA) 75 MG PO Q8HR #60 CAP Prov: 01/28/20 DICYCLOMINE (BENTYL) 20 MG PO QID DICYCLOMINE (BENTYL) 20 MG PO QID #30 TABS Prov: 02/21/20 ONDANSETRON ODT (ZOFRAN ODT) 4 MG PO Q6H PRN PRN NAUSEA/VOMITING ONDANSETRON ODT (ZOFRAN ODT) 4 MG PO Q6H PRN PRN NAUSEA/VOMITING #15 TABS Prov: 02/21/20 Reported Medications LORazepam (ATIVAN) 2 MG PO TID HYDROmorphone (DILAUDID) 2 MG PO Q4H PRN PRN PAIN AMYLASE/LIPASE/PROTEA 120,000/24,000/76,000 U (CREON 24) 24,000 UNITS PO TID MEALS ONDANSETRON (ZOFRAN) 8 MG PO TID ALBUTEROL (ALBUTEROL 2.5 MG/3 ML (75mL)) 2.5 MG NEB RTTID Review of Nursing Notes Rev avail, and agree Past Medical History: Reports: Asthma. Additional Medical History Pancreatitis Past Surgical History: Reports: Abdominal surgery, Appendectomy, Cholecystectomy. Alcohol Use Denies EtOH use Drug Use Denies recreational drugs Smoking status: Smoking status for patients 13 years old or older: Never Smoker Other Social History Primary family support Additional Social History family hx- unknown Physical Exam Vital Signs Vital Signs First Documented: Result Date Time Pulse Ox 99 07/28 2004 B/P 161/96 07/28 2004 B/P Mean 117 07/28 2004 O2 Delivery Room air 07/28 2004 Temp 36.8 07/28 2004 Pulse 65 07/28 2004 Resp 16 07/28 2004 Last Documented: Result Date Time Pulse Ox 99 07/28 2004 B/P 161/96 07/28 2004 B/P Mean 117 07/28 2004 O2 Delivery Room air 07/28 2004 Temp 36.8 07/28 2004 Pulse 65 07/28 2004 Resp 16 07/28 2004 Review of Vital Signs Reviewed Focused PE General/Const General/Const Awake, Alert, Well appearing MS Head Head Normocephalic Eyes Eyes PERRL Ears/Nose/Throat Ears/Nose/Throat Airway patent, Mucous membranes moist, Pharynx NL Resp/Chest Respiratory/Chest Breath sounds NL, Breath sounds = bilat, No respiratory distress, No rales, No rhonchi, No wheezing Cardiovascular Cardiovascular Heart rate NL, Regular rhythm, Heart sounds NL, Peripheral circulation NL Abdomen/GI Abdomen/GI Soft, McBurney's non-tender, No guarding, No rebound, BS normoactive, No distention, No hernia, No palpable mass Tenderness/Guarding/Rebound Tender LUQ, Tender epigastric. Negative: Mclaughlin's sign positive, McBurney's point tender, Guarding voluntary, Guarding involuntary, Rebound localized, Rebound diffuse, Rigid to palpation. MS Back Back Inspection NL, Non-tender, No CVA tenderness Skin Skin Color NL, Warm, Dry, Turgor NL Neurologic Neurologic Oriented X3, Speech NL, No motor deficits, No sensory deficits Interpretation Diagnostics Lab Results Interpretation Results Laboratory Tests: 07/29 2011 Serology SARS-CoV-2 Ag (Rapid) (NEGATIVE) NEGATIVE Urines Urine Color (YELLOW) YELLOW Urine Appearance (CLEAR) CLEAR Urine pH (5.0 - 8.0) 7.0 Ur Specific [place] (1.001 - 1.035) 1.028 Urine Protein (NEGATIVE mg/dL) 20 (Trace) H Urine Glucose (UA) (NEGATIVE mg/dL) NEGATIVE Urine Ketones (NEGATIVE mg/dL) 10 (1+) H Urine Blood (NEGATIVE mg/dL) Negative Urine Nitrite (NEGATIVE) NEGATIVE Urine Bilirubin (NEGATIVE mg/dL) NEGATIVE Urine Urobilinogen (NEGATIVE mg/dL) 2.0 (1+) H Ur Leukocyte Esterase (NEGATIVE Sachin/uL) NEGATIVE Urine RBC (0 - 5 #/HPF) 0-2 Urine WBC (0 - 5 per HPF) 0-5 Ur Epithelial Cells (FEW per HPF) None seen Amorphous Sediment (#/LPF) FEW Urine Bacteria (NONE #/HPF) NONE SEEN Urine Mucus (FEW #/LPF) FEW Point of Care Testing Pulse Oximetry Pulse Ox % 98 On: Room air Interpretation Interpreted by me, Pulse oximetry normal Time 2032 ECG #1 Interpretation Text/Dict Note Diffuse ST elevation and J-point elevation with no reciprocal changes consistent with benign early repolarization. Time 2017 Interpreted by ED physician NL ECG Interpretation Normal rate, Normal QRS, Normal axis, Normal intervals, Adequate tracing ECG Q-T-ST - TN Non-specific ST changes Re-Evaluation MDM )( Re-Evaluation/Progress #1 Text/Dict Note Please note I have been notified that patient is left the hospital AGAINST MEDICAL ADVICE due to family emergency. He had already left by the time and was told by a no opportunity to speak to him about diagnosis, alternative treatment plans, or follow-up. Time of Re-Eval 2107 )( Re-Eval Status Unchanged ED Course Medication(s) Ordered Medication(s) Ordered: Central Nervous System Agents Sig/José Miguel Start time Last Medication Dose Route Stop Time Status Admin Morphine Sulfate 4 MG X1ED STA 07/29 2031 DC 07/28 IV 07/28 Electrolytic, Caloric, And Sneha Sig/José Miguel Start time Last Medication Dose Route Stop Time Status Admin Sodium Chloride 1,000 ML X1ED STA 07/29 2007 DC 07/28 IV 07/28 Gastrointestinal Drugs Sig/José Miguel Start time Last Medication Dose Route Stop Time Status Admin Ondansetron HCl 4 MG X1ED STA 07/29 2031 DC 07/28 IV 07/28 Patient Discharge Departure Vital Signs/Condition Vital Signs First Documented: Result Date Time Pulse Ox 99 07/28 2004 B/P 161/96 07/28 2004 B/P Mean 117 07/28 2004 O2 Delivery Room air 07/28 2004 Temp 36.8 07/28 2004 Pulse 65 07/28 2004 Resp 16 07/28 2004 Last Documented: Result Date Time Pulse Ox 99 07/28 2004 B/P 161/96 07/28 2004 B/P Mean 117 07/28 2004 O2 Delivery Room air 07/28 2004 Temp 36.8 07/28 2004 Pulse 65 07/28 2004 Resp 16 07/28 2004 All vital signs available at the time of this entry have been reviewed. Clinical Impression Clinical Impression Primary Impression: Abdominal pain Disposition Decision Other )( Time 2107 )( Date 07/28/20 Against Medical Advice Yes at 2112 RPT #:[id number] END OF REPORT [facility] 2020-05-04 22:45:00 [facility] ([facility]) EMERGENCY PROVIDER REPORT REPORT#:[id number] REPORT STATUS: Signed DATE:05/04/20 TIME: 2244 PATIENT: TANNER BENDER UNIT #: [id number] ROOM/BED: AGE: 34 SEX: M PCP PHYS: No Primary or Family Physician SERVICE AUTHOR: Laverne Sorto RUBBER GOODS INSPECTOR TESTER * ALL edits or amendments must be made on the electronic/computer document * HPI-Abd Pain M Under 40 General Confirmed Patient Yes Patient Type New patient Initial Greet Date/Time 05/04/202136 PCP Dr. Collins Presentation Chief Complaint Abdominal pain (Epigastric ), Nausea, Vomiting mild Hx Obtained From Patient, Prior medical records Sudden in Onset? No Onset Occurred Days ago (5) Symptom Duration Since onset Progression since Onset Waxes and wanes Caused by No trauma by history Location Epigastric Quality Painful Radiation Back. Migration/Movement Back to abdomen Severity: Onset Mild, Pain level 4 out of 10 Severity: Current Severe, Pain level 9 out of 10 Associated with Reports: Fever, Nausea, Vomiting. Denies: Anorexia, Back pain, Chest pain, Chills, Constipation, Diarrhea, Dysuria, Hematemesis, Hematochezia, Hematuria, Melena, Shortness of breath, Urinary frequency, Urinary retention, Urinary tract symptoms. Associated Other Pt denies other symptoms Exacerbated by Nothing Relieved by Nothing Context Immunization Status General All up to date Recent Healthcare Recent doctor visit, Recent testing, Previous diagnosis Similar Sx Previous Yes Free Text HPI Notes Free Text HPI Notes 34-year-old male who comes in to the ER with a complaint of Epigastric abdominal pain, nausea, and vomiting. Patient denies injury, trauma, or sick contacts. Patient states that symptoms have been ongoing for six days. Patient states that symptoms waxe and wean. Patient describes the pain as a aching sensation and admits that the pain radiates to his back. Patient admits to a pmh of pancreatitis and feels that he is having a flare up. Patient denies exacerbating factors or relieving factors. Patient admits to fever. Patient denies fever, neck pain, weakness, dizziness, cough, sore throat, chest pain, shortness of breath, constipation, flank pain, testicular pain, or urinary symptoms. Patient admits to pmh of asthma. Past surgical history of cholecystectomy. Patient was seen in our ER yesterday with similar c/o, however, patient left AMA. Patient ambulatory to exam in no active distress. Patient denies recent travel, exposure to anybody with recent travel, or COVID 19. Risk-Abd Pain M Under 40 )( Torsion Risk factors reviewed, Risk factors N/A TWIST Score TWIST Score Response Value Swollen Testicle? No (0) 0 Hard Testicle? No (0) 0 Cremasteric Reflex Absent? No (0) 0 Nausea or Vomiting? No (0) 0 High-Riding Testicle? No (0) 0 Total 0 Coronary Artery Disease Risk factors reviewed Review of Systems Focused Review of Systems Constitutional Denies: Chills, Fever, Lethargy. Respiratory Denies: Cough, non-productive, Cough, productive, Shortness of breath. Cardiovascular Denies: Chest pain, Syncope. GI Reports: Abdominal pain (Epigastric ), Nausea, Vomiting. Denies: Anorexia, Belching, Bloody/tarry stool, Constipation, Diarrhea, Dysphagia, Hematemesis, Hematochezia, Mucousy stool, Melena, Rectal pain. Male Denies: Flank pain, Testicular pain. Musculoskeletal Denies: Back pain, Extremity pain. Past Medical History - Adult Stated Complaint SOB, ABD PAIN, FEVER Allergies Coded Allergies: Penicillins (Severe, THROAT SWELLS UP 05/03/20) Home Medications Active Scripts PREGABALIN (LYRICA) 75 MG PO Q8HR PREGABALIN (LYRICA) 75 MG PO Q8HR #60 CAP Prov: 01/28/20 DICYCLOMINE (BENTYL) 20 MG PO QID DICYCLOMINE (BENTYL) 20 MG PO QID #30 TABS Prov: 02/21/20 ONDANSETRON ODT (ZOFRAN ODT) 4 MG PO Q6H PRN PRN NAUSEA/VOMITING ONDANSETRON ODT (ZOFRAN ODT) 4 MG PO Q6H PRN PRN NAUSEA/VOMITING #15 TABS Prov: 02/21/20 Reported Medications LORazepam (ATIVAN) 2 MG PO TID HYDROmorphone (DILAUDID) 2 MG PO Q4H PRN PRN PAIN AMYLASE/LIPASE/PROTEA 120,000/24,000/76,000 U (CREON 24) 24,000 UNITS PO TID MEALS ONDANSETRON (ZOFRAN) 8 MG PO TID ALBUTEROL (ALBUTEROL 2.5 MG/3 ML (75mL)) 2.5 MG NEB RTTID Calculated suicide risk level: No risk Review of Nursing Notes Rev avail, and agree, Triage notes reviewed Past Medical History: Reports: Asthma. Additional Medical History Pancreatitis Past Surgical History: Reports: Abdominal surgery, Appendectomy, Cholecystectomy. Alcohol Use Denies EtOH use Drug Use Denies recreational drugs Smoking status for patients 13 years old or older: Never Smoker Other Social History Primary family support Additional Social History family hx- unknown Ambulatory Status Independent Physical Exam Vital Signs Vital Signs First Documented: Result Date Time Pulse Ox 100 05/04 2136 B/P 144/94 05/04 2136 B/P Mean 110 05/04 2136 O2 Delivery Room air 05/04 2136 Temp 36.9 05/04 2136 Pulse 92 05/04 2136 Resp 05/04 Last Documented: Result Date Time Pulse Ox 100 05/05 23 B/P 132/87 05/05 23 B/P Mean 102 05/05 23 O2 Delivery Room air 05/05 23 Temp 37.0 05/05 23 Pulse 88 05/05 23 Resp 18 05/05 23 Review of Vital Signs Reviewed Focused PE General/Const General/Const Awake, Alert, Well appearing MS Head Head Normocephalic Eyes Eyes PERRL Ears/Nose/Throat Ears/Nose/Throat Airway patent, Mucous membranes moist, Pharynx NL Resp/Chest Respiratory/Chest Breath sounds NL, Breath sounds = bilat, No respiratory distress, No rales, No rhonchi, No wheezing Cardiovascular Cardiovascular Heart rate NL, Regular rhythm, Heart sounds NL, Peripheral circulation NL Abdomen/GI Abdomen/GI Soft, McBurney's non-tender, No guarding, No rebound, BS normoactive, No distention, No hernia, No palpable mass Tenderness/Guarding/Rebound Tender epigastric. MS Back Back Inspection NL, Non-tender, No CVA tenderness Skin Skin Color NL, Warm, Dry, Turgor NL Neurologic Neurologic Oriented X3, Speech NL, No motor deficits, No sensory deficits Interpretation Diagnostics Lab Results Interpretation Results Laboratory Tests 05/04/202142: [Embedded Image Not Available] Laboratory Tests: 05/04 2142 Chemistry Sodium (136 - 145 mmol/L) 139 Potassium (3.5 - 5.1 mmol/L) 3.8 Chloride (98 - 107 mmol/L) 103.0 Carbon Dioxide (21 - 32 mmol/L) 29.0 Anion Gap (10 - 20) 10.8 BUN (7 - 18 mg/dL) 7 Creatinine (0.7 - 1.3 mg/dL) 1.00 Glomerular Filtr Rate (>=60 mL/min) > 60 BUN/Creatinine Ratio (10 - 20) 7.0 L Glucose (74 - 106 mg/dL) 107 H Calcium (8.5 - 10.1 mg/dL) 9.4 Total Bilirubin (0.0 - 1.0 mg/dL) 0.40 Direct Bilirubin (0.0 - 0.20 mg/dL) 0.11 AST (15 - 37 IUnit/L) 31 ALT (12 - 78 IUnit/L) 88 H Total Alk Phosphatase (45 - 117 IUnit/L) 97 Troponin I (0 - 0.045 ng/mL) <0.015 Total Protein (6.4 - 8.2 gram/dL) 7.8 Albumin (3.4 - 5.0 g/dL) 3.8 Globulin (2.7 - 4.2 gram/dL) 4.0 Albumin/Globulin Ratio (0.75 - 1.50) 1.0 Lipase (73.0 - 393.0 U/L) 170 Hematology WBC (4.5 - 12.5 K/mm3) 11.8 RBC (4.0 - 5.8 mill/mm3) 4.82 Hgb (13.0 - 17.5 gram/dL) 15.0 Hct (42.0 - 52.0 %) 45.6 MCV (80 - 98 fL) 94.6 MCH (27.0 - 33.0 picogram) 31.1 MCHC (33.0 - 36.0 gram/dL) 32.9 L RDW (11.6 - 16.2 %) 12.7 Plt Count (150 - 450 K/mm3) 312 MPV (6.7 - 11.0 fL) 11.1 H Urines Urine Color (YELLOW) Light-Yellow Urine Appearance (CLEAR) CLEAR Urine pH (5.0 - 8.0) 6.5 Ur Specific Charlotte (1.001 - 1.035) 1.017 Urine Protein (NEGATIVE mg/dL) NEGATIVE Urine Glucose (UA) (NEGATIVE mg/dL) NEGATIVE Urine Ketones (NEGATIVE mg/dL) NEGATIVE Urine Blood (NEGATIVE mg/dL) Negative Urine Nitrite (NEGATIVE) NEGATIVE Urine Bilirubin (NEGATIVE mg/dL) NEGATIVE Urine Urobilinogen (NEGATIVE mg/dL) Normal Ur Leukocyte Esterase (NEGATIVE Sachin/uL) NEGATIVE Urine RBC (0 - 5 #/HPF) 0-2 Urine WBC (0 - 5 per HPF) 0-5 Ur Epithelial Cells (FEW per HPF) None seen Urine Bacteria (NONE #/HPF) NONE SEEN Urine Mucus (FEW #/LPF) FEW Lab Imaging Statement Laboratory radiographic studies reviewed and considered in the medical decision-making. Point of Care Testing Urinalysis Interpretation Urinalysis NL Pulse Oximetry Pulse Ox % 100 On: Room air Interpretation Interpreted by me Time 2136 Re-Evaluation [facility] )( Re-Evaluation/Progress #1 Time of Re-Eval 2314 )( Re-Eval Status Unchanged Re-Eval Abdomen Soft, Tenderness Eval Following Treatment Condition unchanged Pain Re-Evaluation Pain unchanged Exam Post Tx - General Active, Alert, Appears well, Vital signs stable Exam Post Tx - Sys Review Mental status baseline Plan Post Re-Eval Plan observe Re-Evaluation/Progress #2 Text/Dict Note Brisa MULLIGAN, informed me that patient stated that he was leaving AMA as we were not providing adequate pain relief. I was unable to talk to patient about AMA. Time of Eval 002 ED Course Medication(s) Ordered Medication(s) Ordered: Central Nervous System Agents Sig/José Miguel Start time Last Medication Dose Route Stop Time Status Admin Ketorolac 30 MG X1ED STA 05/04 2325 DC 05/04 Tromethamine IV 05/04 2325 2341 Morphine Sulfate 4 MG X1ED STA 05/04 2220 DC 05/04 IV 05/04 2220 2230 Electrolytic, Caloric, And Sneha Sig/José Miguel Start time Last Medication Dose Route Stop Time Status Admin Sodium Chloride 1,000 ML X1ED STA 05/040 DC 05/04 IV 05/04 2318 2231 Gastrointestinal Drugs Sig/José Miguel Start time Last Medication Dose Route Stop Time Status Admin Ondansetron HCl 4 MG X1ED STA 05/040 DC 05/04 IV 05/04 Differential Diagnosis Differential Diagnosis Acute abdominal pain Patient Discharge Departure Vital Signs/Condition Vital Signs First Documented: Result Date Time Pulse Ox 100 05/04 2136 B/P 144/94 05/04 2136 B/P Mean 110 05/04 2136 O2 Delivery Room air 05/04 2136 Temp 36.9 05/04 2136 Pulse 92 05/04 2136 Resp 18 05/04 2136 Last Documented: Result Date Time Pulse Ox 100 05/05 0024 B/P 132/87 05/05 23 B/P Mean 102 05/054 O2 Delivery Room air 05/05 23 Temp 37.0 05/05 23 Pulse 88 05/05 0024 Resp 18 05/05 0024 All vital signs available at the time of this entry have been reviewed. Condition Stable Clinical Impression Clinical Impression Primary Impression: Abdominal pain Secondary Impressions: Left against medical advice Disposition Decision Other )( Time 19 )( Date 05/05/20 Against Medical Advice Yes Quality Measures BP F/U for HTN Referred for BP f/u < 4wk, F/u with PCP/other doc Current Medications Attest: Medication review Smoking Cessation Screened, non user Tobacco Screening/Cessation 18 years or older, Denies tobacco use at 0057 RPT #:[id number] END OF REPORT [facility] 2020-05-04 22:45:00 [facility] ([facility]) EMERGENCY PROVIDER REPORT REPORT#:[id number] REPORT STATUS: Signed DATE:05/04/20 TIME: 2244 PATIENT: TANNER BENDER UNIT #: [id number] ROOM/BED: AGE: 34 SEX: M PCP PHYS: No Primary or Family Physician SERVICE AUTHOR: Laverne Sorto RUBBER [employer] INSPECTOR TESTER * ALL edits or amendments must be made on the electronic/computer document * Laverne Sorto 05/04/202244: HPI-Abd Pain M Under 40 General Confirmed Patient Yes Patient Type New patient PCP Dr. Collins Presentation Chief Complaint Abdominal pain (Epigastric ), Nausea, Vomiting mild Hx Obtained From Patient, Prior medical records Sudden in Onset? No Onset Occurred Days ago (5) Symptom Duration Since onset Progression since Onset Waxes and wanes Caused by No trauma by history Location Epigastric Quality Painful Radiation Back. Migration/Movement Back to abdomen Severity: Onset Mild, Pain level 4 out of 10 Severity: Current Severe, Pain level 9 out of 10 Associated with Reports: Fever, Nausea, Vomiting. Denies: Anorexia, Back pain, Chest pain, Chills, Constipation, Diarrhea, Dysuria, Hematemesis, Hematochezia, Hematuria, Melena, Shortness of breath, Urinary frequency, Urinary retention, Urinary tract symptoms. Associated Other Pt denies other symptoms Exacerbated by Nothing Relieved by Nothing Context Immunization Status General All up to date Recent Healthcare Recent doctor visit, Recent testing, Previous diagnosis Similar Sx Previous Yes Free Text HPI Notes Free Text HPI Notes 34-year-old male who comes in to the ER with a complaint of Epigastric abdominal pain, nausea, and vomiting. Patient denies injury, trauma, or sick contacts. Patient states that symptoms have been ongoing for six days. Patient states that symptoms waxe and wean. Patient describes the pain as a aching sensation and admits that the pain radiates to his back. Patient admits to a pmh of pancreatitis and feels that he is having a flare up. Patient denies exacerbating factors or relieving factors. Patient admits to fever. Patient denies fever, neck pain, weakness, dizziness, cough, sore throat, chest pain, shortness of breath, constipation, flank pain, testicular pain, or urinary symptoms. Patient admits to h of asthma. Past surgical history of cholecystectomy. Patient was seen in our ER yesterday with similar c/o, however, patient left AMA. Patient ambulatory to exam in no active distress. Patient denies recent travel, exposure to anybody with recent travel, or COVID 19. Risk-Abd Pain M Under 40 )( Torsion Risk factors reviewed, Risk factors N/A TWIST Score TWIST Score Response Value Swollen Testicle? No (0) 0 Hard Testicle? No (0) 0 Cremasteric Reflex Absent? No (0) 0 Nausea or Vomiting? No (0) 0 High-Riding Testicle? No (0) 0 Total 0 Coronary Artery Disease Risk factors reviewed Review of Systems Focused Review of Systems Constitutional Denies: Chills, Fever, Lethargy. Respiratory Denies: Cough, non-productive, Cough, productive, Shortness of breath. Cardiovascular Denies: Chest pain, Syncope. GI Reports: Abdominal pain (Epigastric ), Nausea, Vomiting. Denies: Anorexia, Belching, Bloody/tarry stool, Constipation, Diarrhea, Dysphagia, Hematemesis, Hematochezia, Mucousy stool, Melena, Rectal pain. Male Denies: Flank pain, Testicular pain. Musculoskeletal Denies: Back pain, Extremity pain. Past Medical History - Adult Stated Complaint SOB, ABD PAIN, FEVER Allergies Coded Allergies: Penicillins (Severe, THROAT SWELLS UP 05/03/20) Home Medications Active Scripts PREGABALIN (LYRICA) 75 MG PO Q8HR PREGABALIN (LYRICA) 75 MG PO Q8HR #60 CAP Prov: 01/28/20 DICYCLOMINE (BENTYL) 20 MG PO QID DICYCLOMINE (BENTYL) 20 MG PO QID #30 TABS Prov: 02/21/20 ONDANSETRON ODT (ZOFRAN ODT) 4 MG PO Q6H PRN PRN NAUSEA/VOMITING ONDANSETRON ODT (ZOFRAN ODT) 4 MG PO Q6H PRN PRN NAUSEA/VOMITING #15 TABS Prov: 02/21/20 Reported Medications LORazepam (ATIVAN) 2 MG PO TID HYDROmorphone (DILAUDID) 2 MG PO Q4H PRN PRN PAIN AMYLASE/LIPASE/PROTEA 120,000/24,000/76,000 U (CREON 24) 24,000 UNITS PO TID MEALS ONDANSETRON (ZOFRAN) 8 MG PO TID ALBUTEROL (ALBUTEROL 2.5 MG/3 ML (75mL)) 2.5 MG NEB RTTID Calculated suicide risk level: No risk Review of Nursing Notes Rev avail, and agree, Triage notes reviewed Past Medical History: Reports: Asthma. Additional Medical History Pancreatitis Past Surgical History: Reports: Abdominal surgery, Appendectomy, Cholecystectomy. Alcohol Use Denies EtOH use Drug Use Denies recreational drugs Smoking status for patients 13 years old or older: Never Smoker Other Social History Primary family support Additional Social History family hx- unknown Ambulatory Status Independent Physical Exam Vital Signs Vital Signs First Documented: Result Date Time Pulse Ox 100 05/04 2136 B/P 144/94 05/04 2136 B/P Mean 110 05/04 2136 O2 Delivery Room air 05/04 2136 Temp 36.9 05/04 2136 Pulse 92 05/04 2136 Resp 18 05/04 2136 Last Documented: Result Date Time Pulse Ox 100 05/05 0024 B/P 132/87 05/05 0024 B/P Mean 102 05/054 O2 Delivery Room air 05/05 23 Temp 37.0 05/05 23 Pulse 88 05/05 0024 Resp 18 05/05 0024 Review of Vital Signs Reviewed Focused PE General/Const General/Const Awake, Alert, Well appearing MS Head Head Normocephalic Eyes Eyes PERRL Ears/Nose/Throat Ears/Nose/Throat Airway patent, Mucous membranes moist, Pharynx NL Resp/Chest Respiratory/Chest Breath sounds NL, Breath sounds = bilat, No respiratory distress, No rales, No rhonchi, No wheezing Cardiovascular Cardiovascular Heart rate NL, Regular rhythm, Heart sounds NL, Peripheral circulation NL Abdomen/GI Abdomen/GI Soft, McBurney's non-tender, No guarding, No rebound, BS normoactive, No distention, No hernia, No palpable mass Tenderness/Guarding/Rebound Tender epigastric. MS Back Back Inspection NL, Non-tender, No CVA tenderness Skin Skin Color NL, Warm, Dry, Turgor NL Neurologic Neurologic Oriented X3, Speech NL, No motor deficits, No sensory deficits Interpretation Diagnostics Lab Results Interpretation Results Laboratory Tests 05/04/202142: [Embedded Image Not Available] Laboratory Tests: 05/04 2142 Chemistry Sodium (136 - 145 mmol/L) 139 Potassium (3.5 - 5.1 mmol/L) 3.8 Chloride (98 - 107 mmol/L) 103.0 Carbon Dioxide (21 - 32 mmol/L) 29.0 Anion Gap (10 - 20) 10.8 BUN (7 - 18 mg/dL) 7 Creatinine (0.7 - 1.3 mg/dL) 1.00 Glomerular Filtr Rate (>=60 mL/min) > 60 BUN/Creatinine Ratio (10 - 20) 7.0 L Glucose (74 - 106 mg/dL) 107 H Calcium (8.5 - 10.1 mg/dL) 9.4 Total Bilirubin (0.0 - 1.0 mg/dL) 0.40 Direct Bilirubin (0.0 - 0.20 mg/dL) 0.11 AST (15 - 37 IUnit/L) 31 ALT (12 - 78 IUnit/L) 88 H Total Alk Phosphatase (45 - 117 IUnit/L) 97 Troponin I (0 - 0.045 ng/mL) <0.015 Total Protein (6.4 - 8.2 gram/dL) 7.8 Albumin (3.4 - 5.0 g/dL) 3.8 Globulin (2.7 - 4.2 gram/dL) 4.0 Albumin/Globulin Ratio (0.75 - 1.50) 1.0 Lipase (73.0 - 393.0 U/L) 170 Hematology WBC (4.5 - 12.5 K/mm3) 11.8 RBC (4.0 - 5.8 mill/mm3) 4.82 Hgb (13.0 - 17.5 gram/dL) 15.0 Hct (42.0 - 52.0 %) 45.6 MCV (80 - 98 fL) 94.6 MCH (27.0 - 33.0 picogram) 31.1 MCHC (33.0 - 36.0 gram/dL) 32.9 L RDW (11.6 - 16.2 %) 12.7 Plt Count (150 - 450 K/mm3) 312 MPV (6.7 - 11.0 fL) 11.1 H Urines Urine Color (YELLOW) Light-Yellow Urine Appearance (CLEAR) CLEAR Urine pH (5.0 - 8.0) 6.5 Ur Specific [place] (1.001 - 1.035) 1.017 Urine Protein (NEGATIVE mg/dL) NEGATIVE Urine Glucose (UA) (NEGATIVE mg/dL) NEGATIVE Urine Ketones (NEGATIVE mg/dL) NEGATIVE Urine Blood (NEGATIVE mg/dL) Negative Urine Nitrite (NEGATIVE) NEGATIVE Urine Bilirubin (NEGATIVE mg/dL) NEGATIVE Urine Urobilinogen (NEGATIVE mg/dL) Normal Ur Leukocyte Esterase (NEGATIVE Sachin/uL) NEGATIVE Urine RBC (0 - 5 #/HPF) 0-2 Urine WBC (0 - 5 per HPF) 0-5 Ur Epithelial Cells (FEW per HPF) None seen Urine Bacteria (NONE #/HPF) NONE SEEN Urine Mucus (FEW #/LPF) FEW Lab Imaging Statement Laboratory radiographic studies reviewed and considered in the medical decision-making. Point of Care Testing Urinalysis Interpretation Urinalysis NL Pulse Oximetry Pulse Ox % 100 On: Room air Interpretation Interpreted by me Time 2136 Re-Evaluation MDM )( Re-Evaluation/Progress #1 Time of Re-Eval 2314 )( Re-Eval Status Unchanged Re-Eval Abdomen Soft, Tenderness Eval Following Treatment Condition unchanged Pain Re-Evaluation Pain unchanged Exam Post Tx - General Active, Alert, Appears well, Vital signs stable Exam Post Tx - Sys Review Mental status baseline Plan Post Re-Eval Plan observe Re-Evaluation/Progress #2 Text/Dict Note Brisa MULLIGAN, informed me that patient stated that he was leaving AMA as we were not providing adequate pain relief. I was unable to talk to patient about AMA. Time of Eval 0020 ED Course Medication(s) Ordered Medication(s) Ordered: Central Nervous System Agents Sig/José Miguel Start time Last Medication Dose Route Stop Time Status Admin Ketorolac 30 MG X1ED STA 05/04 2324 DC 05/04 Tromethamine IV 05/046 2341 Morphine Sulfate 4 MG X1ED STA 05/04 2219 DC 05/04 IV 05/04 2220 223 Electrolytic, Caloric, And Sneha Sig/José Miguel Start time Last Medication Dose Route Stop Time Status Admin Sodium Chloride 1,000 ML X1ED STA 05/04 2219 DC 05/04 IV 05/04 2319 2231 Gastrointestinal Drugs Sig/José Miguel Start time Last Medication Dose Route Stop Time Status Admin Ondansetron HCl 4 MG X1ED STA 05/04 2219 DC 05/04 IV 05/04 Differential Diagnosis Differential Diagnosis Acute abdominal pain Patient Discharge Departure Vital Signs/Condition Vital Signs First Documented: Result Date Time Pulse Ox 100 05/04 2136 B/P 144/94 05/04 2136 B/P Mean 110 05/04 2136 O2 Delivery Room air 05/04 2136 Temp 36.9 05/04 2136 Pulse 92 05/04 2136 Resp 18 05/04 2136 Last Documented: Result Date Time Pulse Ox 100 05/05 23 B/P 132/87 05/05 23 B/P Mean 102 05/05 23 O2 Delivery Room air 05/05 23 Temp 37.0 05/05 23 Pulse 88 05/05 23 Resp 18 05/05 23 All vital signs available at the time of this entry have been reviewed. Condition Stable Clinical Impression Clinical Impression Primary Impression: Abdominal pain Secondary Impressions: Left against medical advice Disposition Decision Other )( Time 0020 )( Date 05/05/20 Against Medical Advice Yes Quality Measures BP F/U for HTN Referred for BP f/u < 4wk, F/u with PCP/other doc Current Medications Attest: Medication review Smoking Cessation Screened, non user Tobacco Screening/Cessation 18 years or older, Denies tobacco use Po Alvarez 05/05/20 0109: HPI-Abd Pain M Under 40 General Initial Greet Date/Time 05/04/202136 Patient Discharge Departure Supervising Physician Note MidLv Saw Pt Alone I have reviewed the PA/RUBBER GOODS INSPECTOR TESTER's note and plan of care. I was available for consultation as needed at all times during the patient's visit in the emergency department. I agree with the clinical impression, plan and disposition. at 0057 at 0110 RPT #:[id number] END OF REPORT [facility] 2020-05-03 11:28:00 [facility] ([facility]) EMERGENCY PROVIDER REPORT REPORT#:[id number] REPORT STATUS: Signed DATE:05/03/20 TIME: 1128 PATIENT: TANNER BENDER UNIT #: [id number] ROOM/BED: AGE: 34 SEX: M PCP PHYS: No Primary or Family Physician SERVICE AUTHOR: Herlinda Herr [employer]ER [employer] INSPECTOR TESTER * ALL edits or amendments must be made on the electronic/computer document * HPI-Abd Pain M Under 40 General Confirmed Patient Yes Patient Type New patient Initial Greet Date/Time 05/03/20 1117 PCP no pcp Presentation Chief Complaint Abdominal pain, Nausea, Vomiting mild Hx Obtained From Patient Sudden in Onset? No Onset Occurred Days ago Symptom Duration Since onset Progression since Onset Gradually worsening Caused by No trauma by history Location Epigastric Radiation Back. Context Similar Sx Previous Yes Free Text HPI Notes Free Text HPI Notes 34 male with a past medical history of chronic pancreatitis presents with a 5- day history of upper abdominal pain and vomiting. He reports the pain has been gradually worsening and reports that he is now unable to eat or drink anything. He denies fever, cough, shortness of breath, chest pain, diarrhea. Risk-Abd Pain M Under 40 )( Torsion Risk factors reviewed Review of Systems ROS Statements All systems rev neg except as marked. Basic Review of Systems Basic ROS EYES: No redness, ENT: No sore throat, HEM: No bleeding/bruising, SKIN : No rash, NEURO: No change MS, NEURO: No focal deficit, PSYCH: NL thought content Focused Review of Systems Constitutional Denies: Chills, Fatigue, Fever, Lethargy, Malaise. Respiratory Denies: Cough, non-productive, Shortness of breath. Cardiovascular Denies: Chest pain. GI Reports: Abdominal pain, Nausea, Vomiting. Denies: Diarrhea. Male Denies: Dysuria, Scrotal swelling, Testicular pain, Testicular swelling. Past Medical History - Adult Stated Complaint ABDOMINAL PAIN WITH NAUSEA AND VOMITING Allergies Coded Allergies: Penicillins (Severe, THROAT SWELLS UP 05/03/20) Home Medications Active Scripts PREGABALIN (LYRICA) 75 MG PO Q8HR PREGABALIN (LYRICA) 75 MG PO Q8HR #60 CAP Prov: 01/28/20 DICYCLOMINE (BENTYL) 20 MG PO QID DICYCLOMINE (BENTYL) 20 MG PO QID #30 TABS Prov: 02/21/20 ONDANSETRON ODT (ZOFRAN ODT) 4 MG PO Q6H PRN PRN NAUSEA/VOMITING ONDANSETRON ODT (ZOFRAN ODT) 4 MG PO Q6H PRN PRN NAUSEA/VOMITING #15 TABS Prov: 02/21/20 Reported Medications LORazepam (ATIVAN) 2 MG PO TID HYDROmorphone (DILAUDID) 2 MG PO Q4H PRN PRN PAIN AMYLASE/LIPASE/PROTEA 120,000/24,000/76,000 U (CREON 24) 24,000 UNITS PO TID MEALS ONDANSETRON (ZOFRAN) 8 MG PO TID ALBUTEROL (ALBUTEROL 2.5 MG/3 ML (75mL)) 2.5 MG NEB RTTID Past Medical History: Reports: Asthma. Additional Medical History Pancreatitis Past Surgical History: Reports: Abdominal surgery, Appendectomy, Cholecystectomy. Alcohol Use Denies EtOH use Drug Use Denies recreational drugs Smoking status for patients 13 years old or older: Never Smoker Other Social History Primary family support Additional Social History family hx- unknown Ambulatory Status Independent Physical Exam Vital Signs Vital Signs First Documented: Result Date Time Pulse Ox 99 05/03 1117 B/P 147/79 05/03 1117 B/P Mean 101 05/03 1117 O2 Delivery Room air 05/03 1117 Temp 36.6 05/03 1117 Pulse 77 05/03 1117 Resp 18 05/03 1117 Last Documented: Result Date Time Pulse Ox 99 05/03 1117 B/P 147/79 05/03 1117 B/P Mean 101 05/03 1117 O2 Delivery Room air 05/03 1117 Temp 36.6 05/03 1117 Pulse 77 05/03 1117 Resp 18 05/03 1117 Review of Vital Signs Reviewed, Vital signs normal Basic Physical Exam Basic PE HEAD: Atraumatic/NC, EYES: PERRL, conj clear, ENT: Membranes moist, NECK: Supple, EXT: No gross abnormality, SKIN: No rashes, warm/dry, NEURO: alert oriented, NEURO: gross movement NL, PSYCH: NL thought content Focused PE General/Const General/Const Awake, Alert, No acute distress, Well appearing, Well developed , Well hydrated, Well nourished, Cooperative, Not toxic appearing Appearance/Presentation Uncomfortable. MS Head Head Normocephalic Eyes Eyes PERRL Ears/Nose/Throat Ears/Nose/Throat Airway patent, Mucous membranes moist, Pharynx NL Resp/Chest Respiratory/Chest Breath sounds NL, Breath sounds = bilat, No respiratory distress, No rales, No rhonchi, No wheezing Cardiovascular Cardiovascular Heart rate NL, Regular rhythm, Heart sounds NL, Peripheral circulation NL Abdomen/GI Abdomen/GI Soft, McBurney's non-tender, No guarding, No rebound, BS normoactive, No distention, No hernia, No palpable mass Tenderness/Guarding/Rebound Tender diffuse. MS Back Back Inspection NL, Non-tender, No CVA tenderness Skin Skin Color NL, Warm, Dry, Turgor NL Neurologic Neurologic Oriented X3, Speech NL, No motor deficits, No sensory deficits Interpretation Diagnostics Lab Results Interpretation Results Laboratory Tests 05/03/20 1202: [Embedded Image Not Available] Laboratory Tests: 05/03 05/03 1202 1121 Chemistry Sodium (136 - 145 mmol/L) 141 Potassium (3.5 - 5.1 mmol/L) 4.1 Chloride (98 - 107 mmol/L) 106.0 Carbon Dioxide (21 - 32 mmol/L) 28.0 Anion Gap (10 - 20) 11.1 BUN (7 - 18 mg/dL) 7 Creatinine (0.7 - 1.3 mg/dL) 1.00 Glomerular Filtr Rate (>=60 mL/min) > 60 BUN/Creatinine Ratio (10 - 20) 7.0 L Glucose (74 - 106 mg/dL) 81 Calcium (8.5 - 10.1 mg/dL) 8.9 Total Bilirubin (0.0 - 1.0 mg/dL) 0.50 Direct Bilirubin (0.0 - 0.20 mg/dL) 0.13 AST (15 - 37 IUnit/L) 20 ALT (12 - 78 IUnit/L) 36 Total Alk Phosphatase (45 - 117 IUnit/L) 78 Total Protein (6.4 - 8.2 gram/dL) 8.5 H Albumin (3.4 - 5.0 g/dL) 4.0 Globulin (2.7 - 4.2 gram/dL) 4.5 H Albumin/Globulin Ratio (0.75 - 1.50) 0.9 Lipase (73.0 - 393.0 U/L) 740 H Hematology WBC (4.5 - 12.5 K/mm3) 7.7 RBC (4.0 - 5.8 mill/mm3) 5.18 Hgb (13.0 - 17.5 gram/dL) 16.0 Hct (42.0 - 52.0 %) 49.1 MCV (80 - 98 fL) 94.8 MCH (27.0 - 33.0 picogram) 30.9 MCHC (33.0 - 36.0 gram/dL) 32.6 L RDW (11.6 - 16.2 %) 12.9 Plt Count (150 - 450 K/mm3) 313 MPV (6.7 - 11.0 fL) 11.3 H Serology SARS-CoV-2 Ag (Rapid) NEGATIVE Urines Urine Color (YELLOW) Light-Yellow Urine Appearance (CLEAR) CLEAR Urine pH (5.0 - 8.0) 5.5 Ur Specific [place] (1.001 - 1.035) 1.020 Urine Protein (NEGATIVE mg/dL) NEGATIVE Urine Glucose (UA) (NEGATIVE mg/dL) NEGATIVE Urine Ketones (NEGATIVE mg/dL) NEGATIVE Urine Blood (NEGATIVE mg/dL) Negative Urine Nitrite (NEGATIVE) NEGATIVE Urine Bilirubin (NEGATIVE mg/dL) NEGATIVE Urine Urobilinogen (NEGATIVE mg/dL) Normal Ur Leukocyte Esterase (NEGATIVE Sachin/uL) NEGATIVE Urine RBC (0 - 5 #/HPF) 0-2 Urine WBC (0 - 5 per HPF) 0-5 Ur Epithelial Cells (FEW per HPF) FEW Urine Bacteria (NONE #/HPF) NONE SEEN Urine Mucus (FEW #/LPF) FEW Recent Impressions: RADIOLOGY - XR CHEST 1 V 05/03 1130 Report Impression - Status: SIGNED Entered: 05/03/2020 1154 IMPRESSION: No acute cardiopulmonary process. Location: [facility] Impression By: [email or web address] - Edu Witt M.D. CAT SCAN - CT ABD PELVIS W/CONT 05/03 1337 Report Impression - Status: SIGNED Entered: 05/03/2020 1424 IMPRESSION: Left colitis with pericolonic inflammation and wall thickening without free fluid, free air or abscess. Appendix is not visible but no inflammation. Correlate with surgical history. Impression By: [email or web address] - Maksim Jade M.D. Lab Imaging Statement Laboratory radiographic studies reviewed and considered in the medical decision-making. Point of Care Testing Pulse Oximetry Pulse Ox % 99 On: Room air Interpretation Interpreted by nm Time 1117 Re-Evaluation MDM )( Re-Evaluation/Progress #1 Text/Dict Note Patient was still complaining of pain earlier therefore I ordered additional medications. At this time I went to speak with patient about lab and imaging findings and to reevaluate his pain. He reports that he never received the second dose of pain medication and is still having significant pain. I discussed with nursing staff to attempt to have patient medicated so that he can possibly be discharged home. Time of Re-Eval 145 )( Re-Eval Status Unchanged Re-Evaluation/Progress #2 Text/Dict Note Nursing staff reports the patient became upset because he had still not been medicated for pain and stated that he was leaving. Time of Eval 1510 ED Course Medication(s) Ordered Medication(s) Ordered: Central Nervous System Agents Sig/José Miguel Start time Last Medication Dose Route Stop Time Status Admin Hydromorphone HCl 0.5 MG X1ED STA 05/03 1449 DC IV 05/03 1450 Ketorolac 30 MG X1ED STA 05/03 1329 DC Tromethamine IV 05/03 1330 Morphine Sulfate 4 MG X1ED STA 05/03 1127 DC 05/03 IV 05/03 1128 1235 Diagnostic Agents Sig/José Miguel Start time Last Medication Dose Route Stop Time Status Admin Iopamidol 0 .STK-MED ONE 05/03 1344 DC 05/03 .ROUTE 1347 Electrolytic, Caloric, And Sneha Sig/José Miguel Start time Last Medication Dose Route Stop Time Status Admin Sodium Chloride 1,000 ML X1ED STA 05/03 1127 DC 05/03 IV 05/03 1226 1235 Gastrointestinal Drugs Sig/José Miguel Start time Last Medication Dose Route Stop Time Status Admin Famotidine 20 MG X1ED STA 05/03 1328 DC IV 05/03 1329 Ondansetron HCl 4 MG X1ED STA 05/03 1127 DC 05/03 IV 05/03 1128 1235 Patient Discharge Departure Vital Signs/Condition Vital Signs First Documented: Result Date Time Pulse Ox 99 05/03 1117 B/P 147/79 05/03 1117 B/P Mean 101 05/03 1117 O2 Delivery Room air 05/03 1117 Temp 36.6 05/03 1117 Pulse 77 05/03 1117 Resp 18 05/03 1117 Last Documented: Result Date Time Pulse Ox 99 05/03 1117 B/P 147/79 05/03 1117 B/P Mean 101 05/03 1117 O2 Delivery Room air 05/03 1117 Temp 36.6 05/03 1117 Pulse 77 05/03 1117 Resp 18 05/03 1117 All vital signs available at the time of this entry have been reviewed. Condition Stable Clinical Impression Clinical Impression Primary Impression: Abdominal pain Secondary Impressions: Colitis, Elevated lipase Disposition Decision Other )( Time 1515 )( Date 05/03/20 Against Medical Advice Yes Discharge/Care Plan Counseled Regarding Diagnosis, Lab results, Imaging studies, Need for follow-up, When to return to ED Quality Measures BP F/U for HTN Referred for BP f/u < 4wk, F/u with PCP/other doc Smoking Cessation Screened, non user at 1517 RPT #:[id number] END OF REPORT [facility] 2020-05-03 11:28:00 [facility] ([facility]) EMERGENCY PROVIDER REPORT REPORT#:[id number] REPORT STATUS: Signed DATE:05/03/20 TIME: 1127 PATIENT: TANNER BENDER UNIT #: [id number] ROOM/BED: AGE: 34 SEX: M PCP PHYS: No Primary or Family Physician SERVICE AUTHOR: Herlinda Herr NP * ALL edits or amendments must be made on the electronic/computer document * Herlinda Herr 05/03/20 1128: HPI-Abd Pain M Under 40 General Confirmed Patient Yes Patient Type New patient PCP no pcp Presentation Chief Complaint Abdominal pain, Nausea, Vomiting mild Hx Obtained From Patient Sudden in Onset? No Onset Occurred Days ago Symptom Duration Since onset Progression since Onset Gradually worsening Caused by No trauma by history Location Epigastric Radiation Back. Context Similar Sx Previous Yes Free Text HPI Notes Free Text HPI Notes 34 male with a past medical history of chronic pancreatitis presents with a 5- day history of upper abdominal pain and vomiting. He reports the pain has been gradually worsening and reports that he is now unable to eat or drink anything. He denies fever, cough, shortness of breath, chest pain, diarrhea. Risk-Abd Pain M Under 40 )( Torsion Risk factors reviewed Review of Systems ROS Statements All systems rev neg except as marked. Basic Review of Systems Basic ROS EYES: No redness, ENT: No sore throat, HEM: No bleeding/bruising, SKIN : No rash, NEURO: No change MS, NEURO: No focal deficit, PSYCH: NL thought content Focused Review of Systems Constitutional Denies: Chills, Fatigue, Fever, Lethargy, Malaise. Respiratory Denies: Cough, non-productive, Shortness of breath. Cardiovascular Denies: Chest pain. GI Reports: Abdominal pain, Nausea, Vomiting. Denies: Diarrhea. Male Denies: Dysuria, Scrotal swelling, Testicular pain, Testicular swelling. Past Medical History - Adult Stated Complaint ABDOMINAL PAIN WITH NAUSEA AND VOMITING Allergies Coded Allergies: Penicillins (Severe, THROAT SWELLS UP 05/03/20) Home Medications Active Scripts PREGABALIN (LYRICA) 75 MG PO Q8HR PREGABALIN (LYRICA) 75 MG PO Q8HR #60 CAP Prov: 01/28/20 DICYCLOMINE (BENTYL) 20 MG PO QID DICYCLOMINE (BENTYL) 20 MG PO QID #30 TABS Prov: 02/21/20 ONDANSETRON ODT (ZOFRAN ODT) 4 MG PO Q6H PRN PRN NAUSEA/VOMITING ONDANSETRON ODT (ZOFRAN ODT) 4 MG PO Q6H PRN PRN NAUSEA/VOMITING #15 TABS Prov: 02/21/20 Reported Medications LORazepam (ATIVAN) 2 MG PO TID HYDROmorphone (DILAUDID) 2 MG PO Q4H PRN PRN PAIN AMYLASE/LIPASE/PROTEA 120,000/24,000/76,000 U (CREON 24) 24,000 UNITS PO TID MEALS ONDANSETRON (ZOFRAN) 8 MG PO TID ALBUTEROL (ALBUTEROL 2.5 MG/3 ML (75mL)) 2.5 MG NEB RTTID Past Medical History: Reports: Asthma. Additional Medical History Pancreatitis Past Surgical History: Reports: Abdominal surgery, Appendectomy, Cholecystectomy. Alcohol Use Denies EtOH use Drug Use Denies recreational drugs Smoking status for patients 13 years old or older: Never Smoker Other Social History Primary family support Additional Social History family hx- unknown Ambulatory Status Independent Physical Exam Vital Signs Vital Signs First Documented: Result Date Time Pulse Ox 99 05/03 1117 B/P 147/79 05/03 1117 B/P Mean 101 05/03 1117 O2 Delivery Room air 01/20 1117 Temp 36.6 05/03 1116 Pulse 77 05/03 1117 Resp 18 05/03 111 Last Documented: Result Date Time Pulse Ox 99 05/03 1116 B/P 147/79 05/03 1116 B/P Mean 101 05/03 111 O2 Delivery Room air 05/03 1116 Temp 36.6 05/03 111 Pulse 77 05/03 111 Resp 18 05/03 111 Review of Vital Signs Reviewed, Vital signs normal Basic Physical Exam Basic PE HEAD: Atraumatic/NC, EYES: PERRL, conj clear, ENT: Membranes moist, NECK: Supple, EXT: No gross abnormality, SKIN: No rashes, warm/dry, NEURO: alert oriented, NEURO: gross movement NL, PSYCH: NL thought content Focused PE General/Const General/Const Awake, Alert, No acute distress, Well appearing, Well developed , Well hydrated, Well nourished, Cooperative, Not toxic appearing Appearance/Presentation Uncomfortable. MS Head Head Normocephalic Eyes Eyes PERRL Ears/Nose/Throat Ears/Nose/Throat Airway patent, Mucous membranes moist, Pharynx NL Resp/Chest Respiratory/Chest Breath sounds NL, Breath sounds = bilat, No respiratory distress, No rales, No rhonchi, No wheezing Cardiovascular Cardiovascular Heart rate NL, Regular rhythm, Heart sounds NL, Peripheral circulation NL Abdomen/GI Abdomen/GI Soft, McBurney's non-tender, No guarding, No rebound, BS normoactive, No distention, No hernia, No palpable mass Tenderness/Guarding/Rebound Tender diffuse. MS Back Back Inspection NL, Non-tender, No CVA tenderness Skin Skin Color NL, Warm, Dry, Turgor NL Neurologic Neurologic Oriented X3, Speech NL, No motor deficits, No sensory deficits Interpretation Diagnostics Lab Results Interpretation Results Laboratory Tests 05/03/20 1202: [Embedded Image Not Available] Laboratory Tests: 05/03 05/03 05/03 1202 1121 1121 Chemistry Sodium (136 - 145 mmol/L) 141 Potassium (3.5 - 5.1 mmol/L) 4.1 Chloride (98 - 107 mmol/L) 106.0 Carbon Dioxide (21 - 32 mmol/L) 28.0 Anion Gap (10 - 20) 11.1 BUN (7 - 18 mg/dL) 7 Creatinine (0.7 - 1.3 mg/dL) 1.00 Glomerular Filtr Rate (>=60 mL/min) > 60 BUN/Creatinine Ratio (10 - 20) 7.0 L Glucose (74 - 106 mg/dL) 81 Calcium (8.5 - 10.1 mg/dL) 8.9 Total Bilirubin (0.0 - 1.0 mg/dL) 0.50 Direct Bilirubin (0.0 - 0.20 mg/dL) 0.13 AST (15 - 37 IUnit/L) 20 ALT (12 - 78 IUnit/L) 36 Total Alk Phosphatase (45 - 117 IUnit/L) 78 Total Protein (6.4 - 8.2 gram/dL) 8.5 H Albumin (3.4 - 5.0 g/dL) 4.0 Globulin (2.7 - 4.2 gram/dL) 4.5 H Albumin/Globulin Ratio (0.75 - 1.50) 0.9 Lipase (73.0 - 393.0 U/L) 740 H Hematology WBC (4.5 - 12.5 K/mm3) 7.7 RBC (4.0 - 5.8 mill/mm3) 5.18 Hgb (13.0 - 17.5 gram/dL) 16.0 Hct (42.0 - 52.0 %) 49.1 MCV (80 - 98 fL) 94.8 MCH (27.0 - 33.0 picogram) 30.9 MCHC (33.0 - 36.0 gram/dL) 32.6 L RDW (11.6 - 16.2 %) 12.9 Plt Count (150 - 450 K/mm3) 313 MPV (6.7 - 11.0 fL) 11.3 H Serology SARS-CoV-2 Ag (Rapid) NEGATIVE Toxicology Urine Opiates Screen (<300 ng/mL) NEGATIVE Urine Methadone Screen (<300 ng/mL) NEGATIVE Urine Barbiturates (<200 ng/mL) NEGATIVE Ur Phencyclidine Scrn (<25 ng/mL) NEGATIVE Ur Amphetamines Screen (<1000 ng/mL) NEGATIVE U Benzodiazepines Scrn (<200 ng/mL) POSITIVE H Urine Cocaine Screen (<300 ng/mL) NEGATIVE Urine Cannabinoids (<50 ng/mL) POSITIVE H Urines Urine Color (YELLOW) Light-Yellow Urine Appearance (CLEAR) CLEAR Urine pH (5.0 - 8.0) 5.5 5.5 Ur Specific [place] (1.001 - 1.035) 1.020 Urine Protein (NEGATIVE mg/dL) NEGATIVE Urine Glucose (UA) (NEGATIVE mg/dL) NEGATIVE Urine Ketones (NEGATIVE mg/dL) NEGATIVE Urine Blood (NEGATIVE mg/dL) Negative Urine Nitrite (NEGATIVE) NEGATIVE Urine Bilirubin (NEGATIVE mg/dL) NEGATIVE Urine Urobilinogen (NEGATIVE mg/dL) Normal Ur Leukocyte Esterase (NEGATIVE Sachin/uL) NEGATIVE Urine RBC (0 - 5 #/HPF) 0-2 Urine WBC (0 - 5 per HPF) 0-5 Ur Epithelial Cells (FEW per HPF) FEW Urine Bacteria (NONE #/HPF) NONE SEEN Urine Mucus (FEW #/LPF) FEW Recent Impressions: RADIOLOGY - XR CHEST 1 V 05/03 1130 Report Impression - Status: SIGNED Entered: 05/03/2020 1154 IMPRESSION: No acute cardiopulmonary process. Location: [facility] Impression By: [email or web address] - Edu Witt M.D. CAT SCAN - CT ABD PELVIS W/CONT 05/03 1337 Report Impression - Status: SIGNED Entered: 05/03/2020 1424 IMPRESSION: Left colitis with pericolonic inflammation and wall thickening without free fluid, free air or abscess. Appendix is not visible but no inflammation. Correlate with surgical history. Impression By: [email or web address] - Maksim Jade M.D. Lab Imaging Statement Laboratory radiographic studies reviewed and considered in the medical decision-making. Point of Care Testing Pulse Oximetry Pulse Ox % 99 On: Room air Interpretation Interpreted by me Time 1117 Re-Evaluation MDM )( Re-Evaluation/Progress #1 Text/Dict Note Patient was still complaining of pain earlier therefore I ordered additional medications. At this time I went to speak with patient about lab and imaging findings and to reevaluate his pain. He reports that he never received the second dose of pain medication and is still having significant pain. I discussed with nursing staff to attempt to have patient medicated so that he can possibly be discharged home. Time of Re-Eval 1450 )( Re-Eval Status Unchanged Re-Evaluation/Progress #2 Text/Dict Note Nursing staff reports the patient became upset because he had still not been medicated for pain and stated that he was leaving. Time of Eval 1510 ED Course Medication(s) Ordered Medication(s) Ordered: Central Nervous System Agents Sig/José Miguel Start time Last Medication Dose Route Stop Time Status Admin Hydromorphone HCl 0.5 MG X1ED STA 05/03 1449 DC IV 05/03 1450 Ketorolac 30 MG X1ED STA 05/03 1329 DC Tromethamine IV 05/03 1330 Morphine Sulfate 4 MG X1ED STA 05/03 1127 DC 05/03 IV 05/03 1128 1235 Diagnostic Agents Sig/José Miguel Start time Last Medication Dose Route Stop Time Status Admin Iopamidol 0 .STK-MED ONE 05/03 1344 DC 05/03 .ROUTE 1347 Electrolytic, Caloric, And Sneha Sig/José Miguel Start time Last Medication Dose Route Stop Time Status Admin Sodium Chloride 1,000 ML X1ED STA 05/03 1127 DC 05/03 IV 05/03 1226 1235 Gastrointestinal Drugs Sig/José Miguel Start time Last Medication Dose Route Stop Time Status Admin Famotidine 20 MG X1ED STA 05/03 1328 DC IV 05/03 1329 Ondansetron HCl 4 MG X1ED STA 05/03 1127 DC 05/03 IV 05/03 1128 1235 Patient Discharge Departure Vital Signs/Condition Vital Signs First Documented: Result Date Time Pulse Ox 99 05/03 1117 B/P 147/79 05/03 1117 B/P Mean 101 05/03 1117 O2 Delivery Room air 05/03 1117 Temp 36.6 05/03 1117 Pulse 77 05/03 1117 Resp 18 05/03 1117 Last Documented: Result Date Time Pulse Ox 99 05/03 1117 B/P 147/79 05/03 1117 B/P Mean 101 05/03 1117 O2 Delivery Room air 05/03 1117 Temp 36.6 05/03 1117 Pulse 77 05/03 1117 Resp 18 05/03 1117 All vital signs available at the time of this entry have been reviewed. Condition Stable Clinical Impression Clinical Impression Primary Impression: Abdominal pain Secondary Impressions: Colitis, Elevated lipase Disposition Decision Other )( Time 1515 )( Date 05/03/20 Against Medical Advice Yes Discharge/Care Plan Counseled Regarding Diagnosis, Lab results, Imaging studies, Need for follow-up, When to return to ED Quality Measures BP F/U for HTN Referred for BP f/u < 4wk, F/u with PCP/other doc Smoking Cessation Screened, non user Madi Clark 05/04/201946: HPI-Abd Pain M Under 40 General Initial Greet Date/Time 05/03/20 1117 Patient Discharge Departure Supervising Physician Note MidLv Saw Pt Alone I have reviewed the PA/RUBBER GOODS INSPECTOR TESTER's note and plan of care. I was available for consultation as needed at all times during the patient's visit in the emergency department. I agree with the clinical impression, plan and disposition. at 1517 at 1947 RPT #:[id number] END OF REPORT [facility] 2020-02-21 12:20:00 [facility] ([facility]) EMERGENCY PROVIDER REPORT REPORT#:[id number] REPORT STATUS: Signed DATE:02/21/20 TIME: 1220 PATIENT: TANNER BENDER UNIT #: [id number] ROOM/BED: AGE: 34 SEX: M PCP PHYS: No Primary or Family Physician SERVICE AUTHOR: Neeru Mooney * ALL edits or amendments must be made on the electronic/computer document * HPI-Abd Pain M 40 and Over General Confirmed Patient Yes Initial Greet Date/Time 02/21/20 1132 Presentation Chief Complaint Abdominal pain, Nausea, vomiting Hx Obtained From Patient Sudden in Onset? Yes (5) Free Text HPI Notes Free Text HPI Notes . 34-year-old male with history of chronic hepatitis presents to ED with return of epigastric pain rating to the back by 5 days.. Reports associated nonbloody nonbilious emesis inability to tolerate p.o. He reports loose stools with black , tarry melena maroon-colored stools. He denies fever or chills. No night sweats or weight loss. Patient denies alcohol, drug use. His father from pancreatic cancer. Surgical history significant for cholecystectomy. Patient has multiple previous admissions for similar pain including 1 recently 3 weeks ago. Medical records are reviewed. Risk-Abd Pain M 40 and Over )( Abdominal Aortic Aneurysm Risk factors reviewed Review of Systems ROS Statements All systems rev neg except as marked. Free Text ROS Notes Free Text ROS Notes Per HPI Past Medical History - Adult Stated Complaint ABD PAIN/ BLOOD IN STOOL Allergies Coded Allergies: Penicillins (Severe, THROAT SWELLS UP 07/05/17) Home Medications Active Scripts PREGABALIN (LYRICA) 75 MG PO Q8HR PREGABALIN (LYRICA) 75 MG PO Q8HR #60 CAP Prov: 01/28/20 Reported Medications LORazepam (ATIVAN) 2 MG PO TID HYDROmorphone (DILAUDID) 2 MG PO Q4H PRN PRN PAIN AMYLASE/LIPASE/PROTEA 120,000/24,000/76,000 U (CREON 24) 24,000 UNITS PO TID MEALS ONDANSETRON (ZOFRAN) 8 MG PO TID ALBUTEROL 2.5 MG NEB RTTID Calculated suicide risk level: No risk Past Medical History: Reports: Asthma. Additional Medical History Pancreatitis Past Surgical History: Reports: Abdominal surgery, Appendectomy, Cholecystectomy. Additional Surgical History None Alcohol Use Denies EtOH use Drug Use Denies recreational drugs Smoking status for patients 13 years old or older: Never Smoker Other Social History Primary family support Additional Social History family hx- unknown Physical Exam Vital Signs Vital Signs First Documented: Result Date Time Pulse Ox 98 02/20 112 B/P 130/92 02/20 1129 B/P Mean 104 02/209 O2 Delivery Room air 02/20 1129 Temp 36.7 02/20 1129 Pulse 83 02/20 1129 Resp 16 02/20 1129 Last Documented: Result Date Time B/P 143/94 02/20 1459 B/P Mean 110 02/20 1459 Pulse Ox 98 02/209 O2 Delivery Room air 02/20 1129 Temp 36.7 02/20 112 Pulse 83 02/20 1129 Resp 16 02/20 1129 Review of Vital Signs Reviewed Free Text PE Notes Free Text PE Notes Gen: Nontoxic appearing writhing in pain Head: Normocephalic, atraumatic Eyes: Anicteric sclera, No conjunctival injection or exudate Throat: Airway patent, mucous brains moist. Neck: FROM, no midline TTP or meningismus Lungs: CTAB no R/R/W, good air movement. No stridor or accessory muscle use. No chest wall TTP or crepitus Heart: RRR no m/g/r. No peripheral edema Abd: Soft, nondistended, NABS 4. Epigastric tenderness with guarding. No palpable masses or pulsetile masses. Negative Palmer Sign. No TTP at [place] Rectal exam: Good rectal tone. Brown stool. No fissures, masses, swelling Ext: FROM BUE/LE. No swelling or deformity. Calves supple bilaterally. 2+ distal pulses, NVI Neuro: A O x 3, GCS 15, CN I-XII grossly intact without focal deficit. Psych: Normal mood and affect. Interpretation Diagnostics Lab Results Interpretation Results Laboratory Tests 02/21/20 115: [Embedded Image Not Available] Laboratory Tests: 02/21 1152 Chemistry Sodium (134 - 147 mEq/L) 138 Potassium (3.4 - 5.0 mEq/L) 4.1 Chloride (100 - 108 mEq/L) 107 Carbon Dioxide (21 - 33 mEq/L) 27 Anion Gap (0 - 20) 8 BUN (7 - 18 mg/dL) 6 L Creatinine (0.6 - 1.3 mg/dL) 0.9 Glomerular Filtr Rate (105 - 110) 96.0 L Glucose (70 - 110 mg/dL) 82 Calcium (8.0 - 10.5 mg/dL) 9.4 Total Bilirubin (0.0 - 1.0 mg/dL) 0.60 Direct Bilirubin (0.0 - 0.30 MG/DL) 0.20 Indirect Bilirubin (MG/DL) 0.40 AST (15 - 37 IUnit/L) 16 ALT (30 - 65 IUnit/L) 16 L Total Alk Phosphatase (20 - 125 IUnit/L) 66 Total Protein (6.4 - 8.2 g/dL) 7.8 Albumin (3.4 - 5.0 g/dL) 4.60 Lipase (13 - 57 U/L) 43 Coagulation INR (0.8 - 1.2) 1.0 PT Patient/Control Mix (9.3 - 12.9 SECONDS) 11.1 Hematology WBC (4.5 - 11.0 x10 3/uL) 8.2 RBC (4.00 - 5.60 x10 6/uL) 4.83 Hgb (12.5 - 16.9 g/dL) 15.0 Hct (37.5 - 50.7 %) 45.8 MCV (81.0 - 99.0 fL) 94.8 MCH (27.0 - 33.0 pg) 31.1 MCHC (33.0 - 37.0 g/dL) 32.8 L RDW (11.5 - 14.5 %) 12.5 Plt Count (150 - 400 x10 3/uL) 284 MPV (7.0 - 9.0 fL) 10.6 H Microbiology: Date/Time Procedure - Status Source Growth 02/20 1235 Occult Blood - COMP STOOL Recent Impressions: RADIOLOGY - XR ABDOMEN 1V (KUB) 02/20 1220 Report Impression - Status: SIGNED Entered: 02/21/2020 1220 IMPRESSION: Nonobstructive bowel gas pattern. Small rounded opacity is seen overlying the right pelvis and small linear opacity is noted overlying the left pelvis, which may be external to the patient. Please correlate clinically. SL: [id number] Impression By: [email or web address] - Bobby Manrique D.O. CAT SCAN - CT ABD PELVIS W/CONT 02/20 1326 Report Impression - Status: SIGNED Entered: 02/21/2020 1346 IMPRESSION: 1. No acute findings to account for the patient's symptoms. SL: [id number] Impression By: Katelynn Hutchins M.D. Lab Imaging Statement Laboratory radiographic studies reviewed and considered in the medical decision-making. Re-Evaluation MDM Free Text MDM Notes Free Text MDM Notes Chart reviewed. Labs within normal limits and CT without evidence of pancreatitis. Medical record from previous admissions reviewed. Patient has a longstanding history of being fired from multiple GI doctors in the area. Her multiple reports in previous record he has exhibited drug-seeking behavior. Upon review of [place] AUTO ADJUDICATION SPECIALIST, the patient has monthly prescriptions of heavy narcotics sometimes several per month including oxycodone Tylenol with codeine Ultram and Ultracet. Most recent prescription was filled 2 weeks ago for Ultram. His NARx score is 530. No additional narcotics will be prescribed today. Patient is encouraged to follow-up with outside prototype assembler electronics as previously established. )( Re-Evaluation/Progress #1 Time of Re-Eval 1440 )( Re-Eval Status Unchanged Re-Evaluation/Progress #2 Text/Dict Note Upon exiting the facility, the patient was yelling profanity at the discharge nurse secondary to no narcotic prescriptions provided. It was explained to the patient that his prescribing history was reviewed and he has multiple narcotics filled a month including oxycodone, Tylenol with codeine, Ultram and that no additional narcotic medication would be provided today. ED Course Medication(s) Ordered Medication(s) Ordered: Central Nervous System Agents Sig/José Miguel Start time Last Medication Dose Route Stop Time Status Admin Morphine Sulfate 4 MG X1ED STA 02/20 1146 DC 02/20 IV 02/20 1147 1336 Diagnostic Agents Sig/José Miguel Start time Last Medication Dose Route Stop Time Status Admin Iopamidol 100 ML .STK-MED ONE 02/20 1328 DC 02/20 IV 02/20 1329 1328 Electrolytic, Caloric, And Sneha Sig/José Miguel Start time Last Medication Dose Route Stop Time Status Admin Sodium Chloride 0 ASDIR PRN 02/20 1200 DCD IV 02/21 1046 Sodium Chloride 10 ML ASDIR PRN 02/20 1200 DCD IV 03/22 1159 Sodium Chloride 1,000 ML X1ED STA 02/20 1146 DC 02/20 IV 02/20 1245 1337 Gastrointestinal Drugs Sig/José Miguel Start time Last Medication Dose Route Stop Time Status Admin Ondansetron HCl 4 MG X1ED STA 02/20 1146 DC 02/20 IV 02/20 1147 1336 Pantoprazole Sodium 80 MG X1ED STA 02/20 1146 DC 02/20 IV 02/20 1147 1336 Patient Discharge Departure Vital Signs/Condition Vital Signs First Documented: Result Date Time Pulse Ox 98 02/20 1129 B/P 130/92 02/20 1129 B/P Mean 104 02/20 1129 O2 Delivery Room air 02/20 1129 Temp 36.7 02/209 Pulse 83 02/20 1129 Resp 16 02/20 1129 Last Documented: Result Date Time B/P 143/94 02/20 1459 B/P Mean 110 02/20 1459 Pulse Ox 98 02/20 1129 O2 Delivery Room air 02/20 1129 Temp 36.7 02/20 1129 Pulse 83 02/20 1129 Resp 16 02/20 1129 All vital signs available at the time of this entry have been reviewed. Clinical Impression Clinical Impression Primary Impression: Chronic abdominal pain Secondary Impressions: Drug-seeking behavior Disposition Decision Discharge )( Discharged to Home Yes )( Time 1441 )( Date 02/21/20 Discharge/Care Plan Counseled Regarding Diagnosis, Lab results, Imaging studies, Medication changes, Prescriptions, Need for follow-up, When to return to ED Rx Drug Database Reviewed Yes, NARX score 530 with recent narcotics Rx. No narcotics prescribed this visit (Auto) Prescriptions Current Visit Scripts DICYCLOMINE (BENTYL) 20 MG PO QID DICYCLOMINE (BENTYL) 20 MG PO QID #30 TABS ONDANSETRON ODT (ZOFRAN ODT) 4 MG PO Q6H PRN PRN NAUSEA/VOMITING ONDANSETRON ODT (ZOFRAN ODT) 4 MG PO Q6H PRN PRN NAUSEA/VOMITING #15 TABS Prescriptions Reviewed Risks, Benefits, Alternative treatment Patient Instructions ED Chronic Pain Additional Instructions Return to ED ED if severe pain, fever > 102, worsening symptoms Departure Forms SCUDDY PCP LIST WORK/SCHOOL EXCUSE VARIABLE at 2104 RPT #:[id number] END OF REPORT [facility] 2020-02-21 12:20:00 [facility] ([facility]) EMERGENCY PROVIDER REPORT REPORT#:[id number] REPORT STATUS: Signed DATE:02/21/20 TIME: 1220 PATIENT: TANNER BENDER UNIT #: [id number] ROOM/BED: AGE: 34 SEX: M PCP PHYS: No Primary or Family Physician SERVICE AUTHOR: Neeru Mooney * ALL edits or amendments must be made on the electronic/computer document * Neeru Mooney 02/21/20 1220: HPI-Abd Pain M 40 and Over General Confirmed Patient Yes Presentation Chief Complaint Abdominal pain, Nausea, vomiting Hx Obtained From Patient Sudden in Onset? Yes (5) Free Text HPI Notes Free Text HPI Notes . 34-year-old male with history of chronic hepatitis presents to ED with return of epigastric pain rating to the back by 5 days.. Reports associated nonbloody nonbilious emesis inability to tolerate p.o. He reports loose stools with black , tarry melena maroon-colored stools. He denies fever or chills. No night sweats or weight loss. Patient denies alcohol, drug use. His father from pancreatic cancer. Surgical history significant for cholecystectomy. Patient has multiple previous admissions for similar pain including 1 recently 3 weeks ago. Medical records are reviewed. Risk-Abd Pain M 40 and Over )( Abdominal Aortic Aneurysm Risk factors reviewed Review of Systems ROS Statements All systems rev neg except as marked. Free Text ROS Notes Free Text ROS Notes Per HPI Past Medical History - Adult Stated Complaint ABD PAIN/ BLOOD IN STOOL Allergies Coded Allergies: Penicillins (Severe, THROAT SWELLS UP 07/05/17) Home Medications Active Scripts PREGABALIN (LYRICA) 75 MG PO Q8HR PREGABALIN (LYRICA) 75 MG PO Q8HR #60 CAP Prov: 01/28/20 Reported Medications LORazepam (ATIVAN) 2 MG PO TID HYDROmorphone (DILAUDID) 2 MG PO Q4H PRN PRN PAIN AMYLASE/LIPASE/PROTEA 120,000/24,000/76,000 U (CREON 24) 24,000 UNITS PO TID MEALS ONDANSETRON (ZOFRAN) 8 MG PO TID ALBUTEROL 2.5 MG NEB RTTID Calculated suicide risk level: No risk Past Medical History: Reports: Asthma. Additional Medical History Pancreatitis Past Surgical History: Reports: Abdominal surgery, Appendectomy, Cholecystectomy. Additional Surgical History None Alcohol Use Denies EtOH use Drug Use Denies recreational drugs Smoking status for patients 13 years old or older: Never Smoker Other Social History Primary family support Additional Social History family hx- unknown Physical Exam Vital Signs Vital Signs First Documented: Result Date Time Pulse Ox 98 02/20 1129 B/P 130/92 02/20 1129 B/P Mean 104 02/20 1129 O2 Delivery Room air 02/20 1129 Temp 36.7 02/20 1129 Pulse 83 02/20 1129 Resp 16 02/20 1129 Last Documented: Result Date Time B/P 143/94 02/20 1459 B/P Mean 110 02/20 1459 Pulse Ox 98 02/20 1129 O2 Delivery Room air 02/20 1129 Temp 36.7 02/20 1129 Pulse 83 02/20 1129 Resp 16 02/20 1129 Review of Vital Signs Reviewed Free Text PE Notes Free Text PE Notes Gen: Nontoxic appearing writhing in pain Head: Normocephalic, atraumatic Eyes: Anicteric sclera, No conjunctival injection or exudate Throat: Airway patent, mucous brains moist. Neck: FROM, no midline TTP or meningismus Lungs: CTAB no R/R/W, good air movement. No stridor or accessory muscle use. No chest wall TTP or crepitus Heart: RRR no m/g/r. No peripheral edema Abd: Soft, nondistended, NABS 4. Epigastric tenderness with guarding. No palpable masses or pulsetile masses. Negative Palmer Sign. No TTP at [place] Rectal exam: Good rectal tone. Brown stool. No fissures, masses, swelling Ext: FROM BUE/LE. No swelling or deformity. Calves supple bilaterally. 2+ distal pulses, NVI Neuro: A O x 3, GCS 15, CN I-XII grossly intact without focal deficit. Psych: Normal mood and affect. Interpretation Diagnostics Lab Results Interpretation Results Laboratory Tests 02/21/20 1152: [Embedded Image Not Available] Laboratory Tests: 02/21 1152 Chemistry Sodium (134 - 147 mEq/L) 138 Potassium (3.4 - 5.0 mEq/L) 4.1 Chloride (100 - 108 mEq/L) 107 Carbon Dioxide (21 - 33 mEq/L) 27 Anion Gap (0 - 20) 8 BUN (7 - 18 mg/dL) 6 L Creatinine (0.6 - 1.3 mg/dL) 0.9 Glomerular Filtr Rate (105 - 110) 96.0 L Glucose (70 - 110 mg/dL) 82 Calcium (8.0 - 10.5 mg/dL) 9.4 Total Bilirubin (0.0 - 1.0 mg/dL) 0.60 Direct Bilirubin (0.0 - 0.30 MG/DL) 0.20 Indirect Bilirubin (MG/DL) 0.40 AST (15 - 37 IUnit/L) 16 ALT (30 - 65 IUnit/L) 16 L Total Alk Phosphatase (20 - 125 IUnit/L) 66 Total Protein (6.4 - 8.2 g/dL) 7.8 Albumin (3.4 - 5.0 g/dL) 4.60 Lipase (13 - 57 U/L) 43 Coagulation INR (0.8 - 1.2) 1.0 PT Patient/Control Mix (9.3 - 12.9 SECONDS) 11.1 Hematology WBC (4.5 - 11.0 x10 3/uL) 8.2 RBC (4.00 - 5.60 x10 6/uL) 4.83 Hgb (12.5 - 16.9 g/dL) 15.0 Hct (37.5 - 50.7 %) 45.8 MCV (81.0 - 99.0 fL) 94.8 MCH (27.0 - 33.0 pg) 31.1 MCHC (33.0 - 37.0 g/dL) 32.8 L RDW (11.5 - 14.5 %) 12.5 Plt Count (150 - 400 x10 3/uL) 284 MPV (7.0 - 9.0 fL) 10.6 H Microbiology: Date/Time Procedure - Status Source Growth 02/20 1235 Occult Blood - COMP STOOL Recent Impressions: RADIOLOGY - XR ABDOMEN 1V (KUB) 02/20 1220 Report Impression - Status: SIGNED Entered: 02/21/2020 1220 IMPRESSION: Nonobstructive bowel gas pattern. Small rounded opacity is seen overlying the right pelvis and small linear opacity is noted overlying the left pelvis, which may be external to the patient. Please correlate clinically. SL: [id number] Impression By: [email or web address] - Bobby Manrique D.O. CAT SCAN - CT ABD PELVIS W/CONT 02/20 1326 Report Impression - Status: SIGNED Entered: 02/21/2020 1346 IMPRESSION: 1. No acute findings to account for the patient's symptoms. SL: [id number] Impression By: Katelynn Hutchins M.D. Lab Imaging Statement Laboratory radiographic studies reviewed and considered in the medical decision-making. Re-Evaluation MDM Free Text MDM Notes Free Text MDM Notes Chart reviewed. Labs within normal limits and CT without evidence of pancreatitis. Medical record from previous admissions reviewed. Patient has a longstanding history of being fired from multiple GI doctors in the area. Her multiple reports in previous record he has exhibited drug-seeking behavior. Upon review of [facility], the patient has monthly prescriptions of heavy narcotics sometimes several per month including oxycodone Tylenol with codeine Ultram and Ultracet. Most recent prescription was filled 2 weeks ago for Ultram. His NARx score is 530. No additional narcotics will be prescribed today. Patient is encouraged to follow-up with outside prototype assembler electronics as previously established. )( Re-Evaluation/Progress #1 Time of Re-Eval 1440 )( Re-Eval Status Unchanged Re-Evaluation/Progress #2 Text/Dict Note Upon exiting the facility, the patient was yelling profanity at the discharge nurse secondary to no narcotic prescriptions provided. It was explained to the patient that his prescribing history was reviewed and he has multiple narcotics filled a month including oxycodone, Tylenol with codeine, Ultram and that no additional narcotic medication would be provided today. ED Course Medication(s) Ordered Medication(s) Ordered: Central Nervous System Agents Sig/José Miguel Start time Last Medication Dose Route Stop Time Status Admin Morphine Sulfate 4 MG X1ED STA 02/20 1146 DC 02/20 IV 02/20 1147 1336 Diagnostic Agents Sig/José Miguel Start time Last Medication Dose Route Stop Time Status Admin Iopamidol 100 ML .STK-MED ONE 02/20 1328 DC 02/20 IV 02/20 1329 1328 Electrolytic, Caloric, And Sneha Sig/José Miguel Start time Last Medication Dose Route Stop Time Status Admin Sodium Chloride 0 ASDIR PRN 02/20 1200 DCD IV 02/21 1046 Sodium Chloride 10 ML ASDIR PRN 02/20 1200 DCD IV 03/22 1159 Sodium Chloride 1,000 ML X1ED STA 02/20 1146 DC 02/20 IV 02/20 1245 1337 Gastrointestinal Drugs Sig/José Miguel Start time Last Medication Dose Route Stop Time Status Admin Ondansetron HCl 4 MG X1ED STA 02/20 1146 DC 02/20 IV 02/20 1147 1336 Pantoprazole Sodium 80 MG X1ED STA 02/20 1146 DC 02/20 IV 02/20 1147 1336 Patient Discharge Departure Vital Signs/Condition Vital Signs First Documented: Result Date Time Pulse Ox 98 02/20 1129 B/P 130/92 02/20 1129 B/P Mean 104 02/20 112 O2 Delivery Room air 02/20 1129 Temp 36.7 02/20 1129 Pulse 83 02/20 1129 Resp 16 02/20 1129 Last Documented: Result Date Time B/P 143/94 02/20 1459 B/P Mean 110 02/20 1459 Pulse Ox 98 11/09 1129 O2 Delivery Room air 02/20 1129 Temp 36.7 02/20 1129 Pulse 83 02/20 1129 Resp 16 02/20 1129 All vital signs available at the time of this entry have been reviewed. Clinical Impression Clinical Impression Primary Impression: Chronic abdominal pain Secondary Impressions: Drug-seeking behavior Disposition Decision Discharge )( Discharged to Home Yes )( Time 1441 )( Date 02/21/20 Discharge/Care Plan Counseled Regarding Diagnosis, Lab results, Imaging studies, Medication changes, Prescriptions, Need for follow-up, When to return to ED Rx Drug Database Reviewed Yes, NARX score 530 with recent narcotics Rx. No narcotics prescribed this visit (Auto) Prescriptions Current Visit Scripts DICYCLOMINE (BENTYL) 20 MG PO QID DICYCLOMINE (BENTYL) 20 MG PO QID #30 TABS ONDANSETRON ODT (ZOFRAN ODT) 4 MG PO Q6H PRN PRN NAUSEA/VOMITING ONDANSETRON ODT (ZOFRAN ODT) 4 MG PO Q6H PRN PRN NAUSEA/VOMITING #15 TABS Prescriptions Reviewed Risks, Benefits, Alternative treatment Patient Instructions ED Chronic Pain Additional Instructions Return to ED ED if severe pain, fever > 102, worsening symptoms Departure Forms [facility] PCP LIST WORK/SCHOOL EXCUSE VARIABLE Shay Jasso 02/22/20 0127: HPI-Abd Pain M 40 and Over General Initial Greet Date/Time 02/21/20 1132 Patient Discharge Departure Supervising Physician Note MidLv Saw Pt Alone I have reviewed the PA/RUBBER GOODS INSPECTOR TESTER's note and plan of care. I was available for consultation as needed at all times during the patient's visit in the emergency department. I agree with the clinical impression, plan and disposition. at 2104 at 0127 RPT #:[id number] END OF REPORT [facility] 2020-01-28 11:22:00 [facility] ([facility]) Pain Management Consult Note REPORT#:[id number] REPORT STATUS: Signed DATE:01/28/20 TIME: 1122 PATIENT: TANNER BENDRE UNIT #: [id number] ROOM/BED: C148-1 : 84 AGE: 34 SEX: M ATTEND: Fahad Mock MD ADM AUTHOR: Cathy Sage NP * ALL edits or amendments must be made on the electronic/computer document * History of Present Illness Primary Care Physician: lukas HPI: 34 year old male with reported history of pancreatitis admitted with increased abdominal pain. Abdominal pain abrutly wrose since 2 days ago. Described as a sharp, shooting constant pain from RUQ radiating to "colon". Worse with eating, better with IV morphine and ativan. Accompanied by sujective nausea and vomiting. Rates 01/21. Reports dilaudid at home for pain. No vomiting observed by nursing staff. Review of Systems Additional notes: 12 point ROS completed and negative except as noted History Past History Past Medical History: Reports: Asthma. Past family history: FATHER DAD HAD COLON CANCER FH: colon cancer MOTHER Family History: Cancer Family History: Diabetes BROTHER Relation not specified for: Family History: Unremarkable Allergies: Coded Allergies: Penicillins (Severe, THROAT SWELLS UP 07/05/17) Free Text Hx Notes Free text Hx notes: Past medical history: Reports: Asthma. Additional medical history: Pancreatitis Past surgical history: Reports: Abdominal surgery, Appendectomy, Cholecystectomy. Additional surgical history: None Alcohol use: Denies EtOH use Drug use: Denies recreational drugs Other social history: Primary family support Additional social history: family hx- unknown Objective Physical Exam VS/I O: Last Documented: Result Date Time Pulse Ox 96 01/27 742 B/P 120/75 01/27 742 B/P Mean 89.8 01/27 742 Temp 97.7 01/27 742 Pulse 66 01/27 742 Resp 18 01/27 742 FiO2 99 01/27 0432 24 hour I O ending at 0700: 01/27 0700 01/26 1900 Intake Total 30 Output Total Balance 30 Intake, Oral 30 Number 0 Bowel Movements Number Voids 0 Patient Weight Weight (lb): Weight (oz): Weight (kg): General appearance: lethargic, alert, awake, oriented, no acute distress Head/Eyes: atraumatic, clear cornea, EOMI, normocephalic ENT: normal nose, moist mucosal membranes Neck: full range of motion, non-tender Cardiovascular: normal capillary refill, regular rate rhythm Respiratory: no distress, no tenderness, symmetric expansion Abdomen: soft, no distention Extremities: moves all, no clubbing, no cyanosis Neuro/BOBBIN DISKER: alert, oriented X 3, CNII-XII grossly intact Skin: dry, warm Results Findings/data: Laboratory Tests: 01/26 1323 Chemistry Sodium (134 - 147 mEq/L) 142 Potassium (3.4 - 5.0 mEq/L) 3.5 Chloride (100 - 108 mEq/L) 109 H Carbon Dioxide (21 - 33 mEq/L) 27 Anion Gap (0 - 20) 10 BUN (7 - 18 mg/dL) 7 Creatinine (0.6 - 1.3 mg/dL) 0.8 Glomerular Filtr Rate (105 - 110) 110.0 Glucose (70 - 110 mg/dL) 98 Calcium (8.0 - 10.5 mg/dL) 8.9 Total Bilirubin (0.0 - 1.0 mg/dL) 0.80 AST (15 - 37 IUnit/L) 13 L ALT (30 - 65 IUnit/L) 18 L Total Alk Phosphatase (20 - 125 IUnit/L) 58 Total Protein (6.4 - 8.2 g/dL) 6.2 L Albumin (3.4 - 5.0 g/dL) 3.90 Lipase (13 - 57 U/L) 67 H Hematology WBC (4.5 - 11.0 x10 3/uL) 6.76 RBC (4.00 - 5.60 x10 6/uL) 4.53 Hgb (12.5 - 16.9 g/dL) 14.0 Hct (37.5 - 50.7 %) 42.4 MCV (81.0 - 99.0 fL) 93.6 MCH (27.0 - 33.0 pg) 30.9 MCHC (33.0 - 37.0 g/dL) 33.0 RDW (11.5 - 14.5 %) 12.2 Plt Count (150 - 400 x10 3/uL) 343 MPV (7.0 - 9.0 fL) 10.0 H Neut % (Auto) (56.0 - 77.0 %) 62.0 Lymph % (Auto) (14.0 - 32.0 %) 23.7 Randolph % (Auto) (4.8 - 9.0 %) 9.0 Eos % (Auto) (0.3 - 3.7 %) 3.6 Baso % (Auto) (0.0 - 2.0 %) 1.3 Neut # (Auto) (2.0 - 7.6 x10 3/uL) 4.19 Lymph # (Auto) (1.0 - 3.8 x10 3/uL) 1.60 Randolph # (Auto) (0.1 - 0.8 x10 3/uL) 0.61 Eos # (Auto) (0.0 - 0.2 x10 3/uL) 0.24 H Baso # (Auto) (0.0 - 0.2 x10 3/uL) 0.09 Abs Immat Gran (auto) (0.00 - 0.03 x10 3/uL) 0.03 Add Manual Diff NO Immature Gran % (0.0 - 2.0 %) 0.4 Nucleated RBC % (0 - 0 %) 0.0 Nucleated RBCs # (Man) (0.0 - 0.1 x10 3/uL) 0.00 Microbiology: Date/Time Procedure - Status Source Growth 01/26 1345 MRSA DNA Surveillance Screen - RECD NASAL Recent Impressions: CAT SCAN - CT ABD PELVIS W/O CONT 01/26 1528 Report Impression - Status: SIGNED Entered: 01/27/2020 7794 IMPRESSION: 1. No acute abdominal or pelvic process. SL: [id number] Impression By: [email or web address] - Manuel Chapman M.D. Results: labs reviewed, vital signs stable Diagnosis, Assessment Plan Free text A P: 34 year old male with reported history of pancreatitis admitted with increased abdominal pain. 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 Multiple narcotics from various providers, most recently Tylenol with Codeine although did have recurring oxycodone until 2019 Abdominal pain Agree with GI to avoid IV narcotics, displays drug seeking behavior DC norco 5/325mg Start Oxycodone 5mg q4h PRN Start Lyrica 75mg TID, neuropathic pain Further evaluation per GI Will follow, please call with any questions or concerns [phone] Thank you for allowing me to participate in this patient's care. Plan of care discussed with the Dr. Azzam, patient, primary team, and RN. All questions answered. Patient agrees with above plan of care. All diagnostic studies and labs in the past 24 hours reviewed and interpreted at 1135 RPT #:[id number] END OF REPORT [facility] 2020-01-28 11:22:00 [facility] ([facility]) Pain Management Consult Note REPORT#:[id number] REPORT STATUS: Signed DATE:01/28/20 TIME: 1122 PATIENT: TANNER BENDER UNIT #: [id number] ROOM/BED: [place] [id number] : 84 AGE: 34 SEX: M ATTEND: Fahad Mock MD ADM AUTHOR: Cathy Sage NP * ALL edits or amendments must be made on the electronic/computer document * History of Present Illness Primary Care Physician: lukas HPI: 34 year old male with reported history of pancreatitis admitted with increased abdominal pain. Abdominal pain abrutly wrose since 2 days ago. Described as a sharp, shooting constant pain from RUQ radiating to "colon". Worse with eating, better with IV morphine and ativan. Accompanied by sujective nausea and vomiting. Rates /10. Reports dilaudid at home for pain. No vomiting observed by nursing staff. Review of Systems Additional notes: 12 point ROS completed and negative except as noted History Past History Past Medical History: Reports: Asthma. Past family history: FATHER DAD HAD COLON CANCER FH: colon cancer MOTHER Family History: Cancer Family History: Diabetes BROTHER Relation not specified for: Family History: Unremarkable Allergies: Coded Allergies: Penicillins (Severe, THROAT SWELLS UP 07/05/17) Free Text Hx Notes Free text Hx notes: Past medical history: Reports: Asthma. Additional medical history: Pancreatitis Past surgical history: Reports: Abdominal surgery, Appendectomy, Cholecystectomy. Additional surgical history: None Alcohol use: Denies EtOH use Drug use: Denies recreational drugs Other social history: Primary family support Additional social history: family hx- unknown Objective Physical Exam VS/I O: Last Documented: Result Date Time Pulse Ox 96 01/27 0742 B/P 120/75 01/27 0742 B/P Mean 89.8 10/16 0742 Temp 97.7 01/27 742 Pulse 66 01/27 742 Resp 18 01/27 742 FiO2 99 01/27 0432 24 hour I O ending at 0700: 01/27 0700 01/26 1900 Intake Total 30 Output Total Balance 30 Intake, Oral 30 Number 0 Bowel Movements Number Voids 0 Patient Weight Weight (lb): Weight (oz): Weight (kg): General appearance: lethargic, alert, awake, oriented, no acute distress Head/Eyes: atraumatic, clear cornea, EOMI, normocephalic ENT: normal nose, moist mucosal membranes Neck: full range of motion, non-tender Cardiovascular: normal capillary refill, regular rate rhythm Respiratory: no distress, no tenderness, symmetric expansion Abdomen: soft, no distention Extremities: moves all, no clubbing, no cyanosis Neuro/BOBBIN DISKER: alert, oriented X 3, CNII-XII grossly intact Skin: dry, warm Results Findings/data: Laboratory Tests: 01/26 1323 Chemistry Sodium (134 - 147 mEq/L) 142 Potassium (3.4 - 5.0 mEq/L) 3.5 Chloride (100 - 108 mEq/L) 109 H Carbon Dioxide (21 - 33 mEq/L) 27 Anion Gap (0 - 20) 10 BUN (7 - 18 mg/dL) 7 Creatinine (0.6 - 1.3 mg/dL) 0.8 Glomerular Filtr Rate (105 - 110) 110.0 Glucose (70 - 110 mg/dL) 98 Calcium (8.0 - 10.5 mg/dL) 8.9 Total Bilirubin (0.0 - 1.0 mg/dL) 0.80 AST (15 - 37 IUnit/L) 13 L ALT (30 - 65 IUnit/L) 18 L Total Alk Phosphatase (20 - 125 IUnit/L) 58 Total Protein (6.4 - 8.2 g/dL) 6.2 L Albumin (3.4 - 5.0 g/dL) 3.90 Lipase (13 - 57 U/L) 67 H Hematology WBC (4.5 - 11.0 x10 3/uL) 6.76 RBC (4.00 - 5.60 x10 6/uL) 4.53 Hgb (12.5 - 16.9 g/dL) 14.0 Hct (37.5 - 50.7 %) 42.4 MCV (81.0 - 99.0 fL) 93.6 MCH (27.0 - 33.0 pg) 30.9 MCHC (33.0 - 37.0 g/dL) 33.0 RDW (11.5 - 14.5 %) 12.2 Plt Count (150 - 400 x10 3/uL) 343 MPV (7.0 - 9.0 fL) 10.0 H Neut % (Auto) (56.0 - 77.0 %) 62.0 Lymph % (Auto) (14.0 - 32.0 %) 23.7 Randolph % (Auto) (4.8 - 9.0 %) 9.0 Eos % (Auto) (0.3 - 3.7 %) 3.6 Baso % (Auto) (0.0 - 2.0 %) 1.3 Neut # (Auto) (2.0 - 7.6 x10 3/uL) 4.19 Lymph # (Auto) (1.0 - 3.8 x10 3/uL) 1.60 Randolph # (Auto) (0.1 - 0.8 x10 3/uL) 0.61 Eos # (Auto) (0.0 - 0.2 x10 3/uL) 0.24 H Baso # (Auto) (0.0 - 0.2 x10 3/uL) 0.09 Abs Immat Gran (auto) (0.00 - 0.03 x10 3/uL) 0.03 Add Manual Diff NO Immature Gran % (0.0 - 2.0 %) 0.4 Nucleated RBC % (0 - 0 %) 0.0 Nucleated RBCs # (Man) (0.0 - 0.1 x10 3/uL) 0.00 Microbiology: Date/Time Procedure - Status Source Growth 01/26 1345 MRSA DNA Surveillance Screen - RECD NASAL Recent Impressions: CAT SCAN - CT ABD PELVIS W/O CONT 01/26 1528 Report Impression - Status: SIGNED Entered: 01/27/2020 1857 IMPRESSION: 1. No acute abdominal or pelvic process. SL: [id number] Impression By: [email or web address] - Manuel Chapman M.D. Results: labs reviewed, vital signs stable Diagnosis, Assessment Plan Free text A P: 34 year old male with reported history of pancreatitis admitted with increased abdominal pain. 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 Multiple narcotics from various providers, most recently Tylenol with Codeine although did have recurring oxycodone until 2019 Abdominal pain Agree with GI to avoid IV narcotics, displays drug seeking behavior DC norco 5/325mg Start Oxycodone 5mg q4h PRN Start Lyrica 75mg TID, neuropathic pain Further evaluation per GI Will follow, please call with any questions or concerns [phone] Thank you for allowing me to participate in this patient's care. Plan of care discussed with the Dr. John, patient, primary team, and RN. All questions answered. Patient agrees with above plan of care. All diagnostic studies and labs in the past 24 hours reviewed and interpreted at 1135 at 0016 RPT #:[id number] END OF REPORT [facility] 2020-01-27 18:47:00 [facility] ([facility]) Clinical Note REPORT#:[id number] REPORT STATUS: Signed DATE:01/27/20 TIME: 1846 PATIENT: TANNER BENDER UNIT #: [id number] ROOM/BED: [place] [address] : 84 AGE: 34 SEX: M ATTEND: Fahad Mock MD ADM AUTHOR: Deloris Haddad MD * ALL edits or amendments must be made on the electronic/computer document * Clinical Note Note: GI Update Patient was admitted to hospital from clinic with abdominal pain, not able to keep food down and ? PD stricture in the past. This was my first time to see patient in the clinic. He is doctor shopping Since admission labs are normal. CT no lesions noted. He has called my office x 3 times, and I have spoke to him x 2 since this morning. All along he has been complaining if pain and asking for pain medication. He has been receiving IV morphine which is not working for him I told him categorically 1. Will call pain doctor for pain control> Evidently records review from 2017 show he was in hospital with similar complaints with negative work up and saw Dr. John 2. Await MRCP since patient demands ERCP. 3. All his previous records from [facility] mention similar experience with negative work up fro abdominal pain, and his demand for pain medication. He had extensive work up done in the past which has been negative. RECOMMEND TO AVOID IV PAIN MEDICATION> at 1853 RPT #:[id number] END OF REPORT [facility] 2020-01-27 13:35:00 [facility] ([facility]) Hospitalist History Physical REPORT#:[id number] REPORT STATUS: Signed DATE:01/27/20 TIME: 1335 PATIENT: TANNER BENDER UNIT #: [id number] ROOM/BED: [place] [address] : 84 AGE: 34 SEX: M ATTEND: Fahad Mock MD ADM AUTHOR: Ila Horvath MD * ALL edits or amendments must be made on the electronic/computer document * History of Present Illness HPI Chief complaint: abdomina pain and melena Free Text HPI Notes Free Text HPI Notes: 34 years old male with PMH of chronic pancreatitis complaint of RUQ pain with nausea and vomiting for 1 week. he also complaint of melena for 2 days . he went to GI physician office. he was sent to the hospital for direct admission . he deny fever, cp , sob , dizziness History Past medical history: Reports: Asthma. Additional medical history: Pancreatitis Past surgical history: Reports: Abdominal surgery, Appendectomy, Cholecystectomy. Additional surgical history: None Alcohol use: Denies EtOH use Drug use: Denies recreational drugs Other social history: Primary family support Additional social history: family hx- unknown Medication/Allergy-Vaccine Hx Allergies: Coded Allergies: Penicillins (Severe, THROAT SWELLS UP 07/05/17) Review of Systems Constitutional: Denies: fever, lethargy. Respiratory: Denies: non productive cough, SOB, wheezing. Cardiovascular: Denies: chest pain, PEREZ (dyspnea on exertion), edema, orthopnea. GI: Reports: abdominal pain, melena, nausea, vomiting. Denies: diarrhea. : Denies: dysuria, flank pain, frequency, hematuria. Neuro: Denies: confusion, headache, seizure. Objective General VS/I O: Patient Weight Weight (lb): Weight (oz): Weight (kg): Medications: Home Medications: LORazepam (ATIVAN) 2 MG PO TID HYDROmorphone (DILAUDID) 2 MG PO Q4H PRN PRN PAIN AMYLASE/LIPASE/PROTEA 120,000/24,000/76,000 U (CREON 24) 24,000 UNITS PO TID MEALS ONDANSETRON (ZOFRAN) 8 MG PO TID ALBUTEROL 2.5 MG NEB RTTID Active Meds + DC'd Last 24 Hrs Pantoprazole Sodium 40 MG Q12HR IV (UNV) Morphine Sulfate 2 MG Q4H PRN PRN IV (UNV) Ondansetron HCl 4 MG Q4H PRN PRN IV Sodium Chloride 1,000 ML .Q10H IV Sodium Chloride 10 ML ASDIR PRN IV (UNV) Physical Exam General appearance: alert, awake, oriented Head/Eyes: atraumatic, normocephalic, PERRL Neck: full range of motion, normal thyroid, no JVD Cardiovascular: normal heart sounds, regular rate rhythm Respiratory: aerating well, clear to auscultation Abdomen: non-tender, normal bowel sounds, soft, no distention Extremities: moves all, no calf tenderness, no edema Neuro/BOBBIN DISKER: alert, oriented X 3, CNII-XII intact, normal speech, no motor deficits, no sensory deficits Skin: dry, intact Results Findings/Data: Laboratory Tests 01/26 1323 Chemistry Sodium (134 - 147 mEq/L) 142 Potassium (3.4 - 5.0 mEq/L) 3.5 Chloride (100 - 108 mEq/L) 109 H Carbon Dioxide (21 - 33 mEq/L) 27 Anion Gap (0 - 20) 10 BUN (7 - 18 mg/dL) 7 Creatinine (0.6 - 1.3 mg/dL) 0.8 Glomerular Filtr Rate (105 - 110) 110.0 Glucose (70 - 110 mg/dL) 98 Calcium (8.0 - 10.5 mg/dL) 8.9 Total Bilirubin (0.0 - 1.0 mg/dL) 0.80 AST (15 - 37 IUnit/L) 13 L ALT (30 - 65 IUnit/L) 18 L Total Alk Phosphatase (20 - 125 IUnit/L) 58 Total Protein (6.4 - 8.2 g/dL) 6.2 L Albumin (3.4 - 5.0 g/dL) 3.90 Lipase (13 - 57 U/L) 67 H Laboratory Tests 01/26 1323 Hematology WBC (4.5 - 11.0 x10 3/uL) 6.76 RBC (4.00 - 5.60 x10 6/uL) 4.53 Hgb (12.5 - 16.9 g/dL) 14.0 Hct (37.5 - 50.7 %) 42.4 MCV (81.0 - 99.0 fL) 93.6 MCH (27.0 - 33.0 pg) 30.9 MCHC (33.0 - 37.0 g/dL) 33.0 RDW (11.5 - 14.5 %) 12.2 Plt Count (150 - 400 x10 3/uL) 343 MPV (7.0 - 9.0 fL) 10.0 H Neut % (Auto) (56.0 - 77.0 %) 62.0 Lymph % (Auto) (14.0 - 32.0 %) 23.7 Randolph % (Auto) (4.8 - 9.0 %) 9.0 Eos % (Auto) (0.3 - 3.7 %) 3.6 Baso % (Auto) (0.0 - 2.0 %) 1.3 Neut # (Auto) (2.0 - 7.6 x10 3/uL) 4.19 Lymph # (Auto) (1.0 - 3.8 x10 3/uL) 1.60 Randolph # (Auto) (0.1 - 0.8 x10 3/uL) 0.61 Eos # (Auto) (0.0 - 0.2 x10 3/uL) 0.24 H Baso # (Auto) (0.0 - 0.2 x10 3/uL) 0.09 Abs Immat Gran (auto) (0.00 - 0.03 x10 3/uL) 0.03 Add Manual Diff NO Immature Gran % (0.0 - 2.0 %) 0.4 Nucleated RBC % (0 - 0 %) 0.0 Nucleated RBCs # (Man) (0.0 - 0.1 x10 3/uL) 0.00 Laboratory Tests 01/26 1323 Hematology WBC (4.5 - 11.0 x10 3/uL) 6.76 RBC (4.00 - 5.60 x10 6/uL) 4.53 Hgb (12.5 - 16.9 g/dL) 14.0 Hct (37.5 - 50.7 %) 42.4 MCV (81.0 - 99.0 fL) 93.6 MCH (27.0 - 33.0 pg) 30.9 MCHC (33.0 - 37.0 g/dL) 33.0 RDW (11.5 - 14.5 %) 12.2 Plt Count (150 - 400 x10 3/uL) 343 MPV (7.0 - 9.0 fL) 10.0 H Neut % (Auto) (56.0 - 77.0 %) 62.0 Lymph % (Auto) (14.0 - 32.0 %) 23.7 Randolph % (Auto) (4.8 - 9.0 %) 9.0 Eos % (Auto) (0.3 - 3.7 %) 3.6 Baso % (Auto) (0.0 - 2.0 %) 1.3 Neut # (Auto) (2.0 - 7.6 x10 3/uL) 4.19 Lymph # (Auto) (1.0 - 3.8 x10 3/uL) 1.60 Randolph # (Auto) (0.1 - 0.8 x10 3/uL) 0.61 Eos # (Auto) (0.0 - 0.2 x10 3/uL) 0.24 H Baso # (Auto) (0.0 - 0.2 x10 3/uL) 0.09 Abs Immat Gran (auto) (0.00 - 0.03 x10 3/uL) 0.03 Add Manual Diff NO Immature Gran % (0.0 - 2.0 %) 0.4 Nucleated RBC % (0 - 0 %) 0.0 Nucleated RBCs # (Man) (0.0 - 0.1 x10 3/uL) 0.00 Radiology data: Recent Impressions: CAT SCAN - CT ABD PELVIS W/O CONT 01/26 1528 Report Impression - Status: SIGNED Entered: 01/27/2020 8839 IMPRESSION: 1. No acute abdominal or pelvic process. SL: [id number] Impression By: [email or web address] Maria Del Carmen Chapman M.D. Diagnosis, Assessment Plan Hospital course to date: abdominal pain nausea and vomiting melena chronic pancreatitis anxiety GI consult CT abdomen -- normal lipase -- 67 H H-- 14-- monitor zofran prn NPO IVF pain control continue ativan prn at 1749 RPT #:[id number] END OF REPORT [facility] 2020-01-07 12:54:00 [facility] ([facility]) EMERGENCY PROVIDER REPORT REPORT#:[id number] REPORT STATUS: Signed DATE:01/07/20 TIME: 1253 PATIENT: TANNER BENDER UNIT #: [id number] ROOM/BED: AGE: 34 SEX: M PCP PHYS: No Primary or Family Physician SERVICE AUTHOR: Crissy Phillips MD * ALL edits or amendments must be made on the electronic/computer document * Crissy Phillips 01/07/20 1254: HPI-Abd Pain M Under 40 General Confirmed Patient Yes Initial Greet Date/Time 01/07/20 1108 Presentation Chief Complaint Abdominal pain Free Text HPI Notes Free Text HPI Notes 34-year-old male with PMH pancreatitis and asthma presents with abdominal pain. Patient reports acute onset of symptoms that began at 2000 last night. He notes it worsened this morning at 0200 so he came to the ED today. It is to the area just between the RUQ and midepigastrium and it radiates to the lower back. It is further described as sharp/stabbing, constant, worsened with eating and without relieving factors. The patient admits to associated nausea and 4 episodes of nonbloody emesis. He denies cough, fever, chest pain, shortness of breath, melena, hematuria, hematochezia, lower extremity swelling or calf pain. His surgical history is notable for a cholecystectomy. Risk-Abd Pain M Under 40 )( Torsion Risk factors reviewed Review of Systems ROS Statements All systems rev neg except as marked. Past Medical History - Adult Stated Complaint ABD PAIN RADIATES TO BACK, HX PANCREATITIS Allergies Coded Allergies: Penicillins (Severe, THROAT SWELLS UP 07/05/17) Home Medications Reported Medications No Known Home Medications Past Medical History: Reports: Asthma. Additional Medical History Pancreatitis Past Surgical History: Reports: Abdominal surgery, Appendectomy, Cholecystectomy. Additional Surgical History None Alcohol Use Denies EtOH use Drug Use Denies recreational drugs Smoking status for patients 13 years old or older: Never Smoker Other Social History Primary family support Additional Social History family hx- unknown Physical Exam Vital Signs Review of Vital Signs Reviewed Focused PE General/Const General/Const Awake, Alert, No acute distress Text/Dict Notes Afebrile, sitting uncomfortably in chair in mild discomfort but NAD, nontoxic, appears well clinic MS Head Head Atraumatic, Normocephalic Ears/Nose/Throat Ears/Nose/Throat Airway patent Resp/Chest Respiratory/Chest Breath sounds NL, No respiratory distress, No rales, No rhonchi, No wheezing Cardiovascular Cardiovascular Heart rate NL, Regular rhythm, Heart sounds NL Abdomen/GI Abdomen/GI Soft, No distention Text/Dict Notes Abdomen is soft with moderate TTP at the midpoint between the RUQ and mid epigastrium, no rebound or guarding present MS Back Back No midline vertebral tend, No CVA tenderness Skin Skin Warm, Dry Neurologic Neurologic Oriented X3, Speech NL Text/Dict Notes Moves all extremities equally Additional PE MS Neck Neck Supple, No swelling MS Lower Extrem Lower Ext/Pelvis/MS No swelling, Non-tender Psychiatric Psychiatric Affect NL, Mood NL Interpretation Diagnostics Point of Care Testing Pulse Oximetry Pulse Ox % 97 On: Room air Interpretation Interpreted by me, Pulse oximetry normal Time 1117 Re-Evaluation MDM ED Course Medication(s) Ordered Medication(s) Ordered: Central Nervous System Agents Sig/José Miguel Start time Last Medication Dose Route Stop Time Status Admin Ketorolac 30 MG X1ED STA 01/06 1438 DC 01/06 Tromethamine IV 01/06 1439 1504 Morphine Sulfate 4 MG X1ED STA 01/06 1438 DC 01/06 IV 01/06 1439 1503 Morphine Sulfate 4 MG X1ED STA 01/06 1150 DC 01/06 IV 01/06 1151 1240 Electrolytic, Caloric, And Sneha Sig/José Miguel Start time Last Medication Dose Route Stop Time Status Admin Sodium Chloride 1,000 ML X1ED STA 01/06 1151 DC 01/06 IV 01/06 1250 1239 Sodium Chloride 0 ASDIR PRN 01/06 1115 AC IV 01/07 1009 Gastrointestinal Drugs Sig/José Miguel Start time Last Medication Dose Route Stop Time Status Admin Ondansetron HCl 4 MG X1ED STA 01/06 1151 DC 01/06 IV 01/06 1152 1239 Patient Discharge Departure Discharge/Care Plan (Auto) Prescriptions Current Visit Scripts No Known Home Medications Referrals No Primary or Family Physician (PCP/Family) Supervising Physician Note MidLv/Doc Saw Pt 1 I have seen and evaluated this patient and agree with the nurse practitioner or physician spa assistant manager's documentation and assessment. Documentation of one or more elements of my assessment are included in the medical record. Jelani Menjivar 01/07/20 1440: Physical Exam Vital Signs Vital Signs First Documented: Result Date Time Pulse Ox 97 01/06 1117 B/P 136/88 01/06 1117 B/P Mean 104 01/06 1117 O2 Delivery Room air 01/06 1117 Temp 36.7 01/06 1117 Pulse 88 01/06 1117 Resp 17 01/06 1117 Last Documented: Result Date Time Pulse Ox 98 01/06 1607 B/P 135/86 01/06 1607 B/P Mean 102 01/06 1607 O2 Delivery Room air 01/06 1607 Temp 36.7 01/06 1607 Pulse 55 01/06 1607 Resp 16 01/06 1607 Interpretation Diagnostics Lab Results Interpretation Results Laboratory Tests 01/07/20 1240: [Embedded Image Not Available] 01/07/20 1209: [Embedded Image Not Available] Laboratory Tests: 01/06 01/06 01/06 1453 1240 1209 Chemistry Sodium (134 - 147 mEq/L) 138 Potassium (3.4 - 5.0 mEq/L) 4.3 Chloride (100 - 108 mEq/L) 105 Carbon Dioxide (21 - 33 mEq/L) 28 Anion Gap (0 - 20) 9 BUN (7 - 18 mg/dL) 9 Creatinine (0.6 - 1.3 mg/dL) 1.0 Glomerular Filtr Rate (105 - 110) 85.0 L Glucose (70 - 110 mg/dL) 75 Calcium (8.0 - 10.5 mg/dL) 9.7 Magnesium (1.8 - 2.4 mg/dL) 1.93 Total Bilirubin (0.0 - 1.0 mg/dL) 1.00 AST (15 - 37 IUnit/L) 22 ALT (30 - 65 IUnit/L) 21 L Total Alk Phosphatase (20 - 125 IUnit/L) 65 Total Protein (6.4 - 8.2 g/dL) 7.4 Albumin (3.4 - 5.0 g/dL) 4.40 Lipase (13 - 57 U/L) 43 Hematology WBC (4.5 - 11.0 x10 3/uL) 7.15 RBC (4.00 - 5.60 x10 6/uL) 5.05 Hgb (12.5 - 16.9 g/dL) 16.0 Hct (37.5 - 50.7 %) 48.4 MCV (81.0 - 99.0 fL) 95.8 MCH (27.0 - 33.0 pg) 31.7 MCHC (33.0 - 37.0 g/dL) 33.1 RDW (11.5 - 14.5 %) 12.6 Plt Count (150 - 400 x10 3/uL) 294 MPV (7.0 - 9.0 fL) 10.7 H Neut % (Auto) (56.0 - 77.0 %) 59.0 Lymph % (Auto) (14.0 - 32.0 %) 26.4 Randolph % (Auto) (4.8 - 9.0 %) 9.1 H Eos % (Auto) (0.3 - 3.7 %) 4.5 H Baso % (Auto) (0.0 - 2.0 %) 0.7 Neut # (Auto) (2.0 - 7.6 x10 3/uL) 4.22 Lymph # (Auto) (1.0 - 3.8 x10 3/uL) 1.89 Randolph # (Auto) (0.1 - 0.8 x10 3/uL) 0.65 Eos # (Auto) (0.0 - 0.2 x10 3/uL) 0.32 H Baso # (Auto) (0.0 - 0.2 x10 3/uL) 0.05 Abs Immat Gran (auto) (0.00 - 0.03 x10 3/uL) 0.02 Add Manual Diff NO Immature Gran % (0.0 - 2.0 %) 0.3 Nucleated RBC % (0 - 0 %) 0.0 Nucleated RBCs # (Man) (0.0 - 0.1 x10 3/uL) 0.00 Urines Urine Color (YEL/STRAW) YELLOW Urine Appearance (CLEAR) CLEAR Urine pH (5.0 - 7.0) 5.0 Ur Specific Charlotte (1.005 - 1.030) 1.015 Urine Protein (NEGATIVE) NEGATIVE Urine Glucose (UA) (NEGATIVE) NEGATIVE Urine Ketones (NEGATIVE) NEGATIVE Urine Blood (NEGATIVE) NEGATIVE Urine Nitrite (NEGATIVE) NEGATIVE Urine Bilirubin (NEGATIVE) NEGATIVE Urine Urobilinogen (0.2 - 1.0 mg/dL) 0.2 Ur Leukocyte Esterase (NEGATIVE) NEGATIVE Urine RBC (0 - 3 RBC/HPF) 0-3 Urine WBC (0 - 3 WBC/HPF) 0-3 Ur Squamous Epith Cells (NONE SEEN /HPF) 0-5 Urine Bacteria (NONE SEEN /HPF) TRACE Urine Mucus (NONE SEEN /LPF) TRACE Recent Impressions: CAT SCAN - CT ABD PELVIS W/O CONT 01/06 1534 Report Impression - Status: SIGNED Entered: 01/07/2020 1549 IMPRESSION: 1. There is underdistention and mucosal thickening of the stomach which could be due to spasm or gastritis. There is no bowel perforation or obstruction. 2. The appendix is surgically absent. 3. There is no nephrolithiasis or acute renal process. 4. The gallbladder is surgically absent. 5. There is a mild apex leftward spinal curvature. This could be due to positioning, muscle spasm or mild scoliosis. Impression By: [email or web address] - Chucho Walker D.O. Re-Evaluation [facility] )( Re-Evaluation/Progress #1 Text/Dict Note pt reports nausea improvement and abd pain improcement. still exeriencing significant flank and back pain. he reports urinary urgency yesterday. will add additional imaging and pain control and re-eval Time of Re-Eval 1429 )( Re-Eval Status Improved Patient Discharge Departure Vital Signs/Condition Vital Signs First Documented: Result Date Time Pulse Ox 97 01/06 1117 B/P 136/88 01/06 1117 B/P Mean 104 01/06 1117 O2 Delivery Room air 01/06 111 Temp 36.7 01/06 111 Pulse 88 01/06 1117 Resp 17 01/06 111 Last Documented: Result Date Time Pulse Ox 98 01/06 1607 B/P 135/86 01/06 1607 B/P Mean 102 01/06 1607 O2 Delivery Room air 01/06 160 Temp 36.7 01/06 1607 Pulse 55 01/06 1607 Resp 16 01/06 1607 All vital signs available at the time of this entry have been reviewed. Condition Improved Clinical Impression Clinical Impression Primary Impression: Gastritis Disposition Decision Discharge )( Discharged to Home Yes )( Time 1552 )( Date 01/07/20 Discharge/Care Plan Counseled Regarding Diagnosis, Lab results, Imaging studies, Prescriptions, Need for follow-up, When to return to ED Prescriptions karine veronica at 1159 RPT #:[id number] END OF REPORT [facility] 2020-01-07 12:54:00 [facility] ([facility]) EMERGENCY PROVIDER REPORT REPORT#:[id number] REPORT STATUS: Signed DATE:01/07/20 TIME: 1254 PATIENT: TANNER BENDER UNIT #: [id number] ROOM/BED: AGE: 34 SEX: M PCP PHYS: No Primary or Family Physician SERVICE AUTHOR: Crissy Phillips MD * ALL edits or amendments must be made on the electronic/computer document * Crissy Phillips 01/07/20 1254: HPI-Abd Pain M Under 40 General Confirmed Patient Yes Presentation Chief Complaint Abdominal pain Free Text HPI Notes Free Text HPI Notes 34-year-old male with PMH pancreatitis and asthma presents with abdominal pain. Patient reports acute onset of symptoms that began at 1999 last night. He notes it worsened this morning at 0200 so he came to the ED today. It is to the area just between the RUQ and midepigastrium and it radiates to the lower back. It is further described as sharp/stabbing, constant, worsened with eating and without relieving factors. The patient admits to associated nausea and 4 episodes of nonbloody emesis. He denies cough, fever, chest pain, shortness of breath, melena, hematuria, hematochezia, lower extremity swelling or calf pain. His surgical history is notable for a cholecystectomy. Risk-Abd Pain M Under 40 )( Torsion Risk factors reviewed Review of Systems ROS Statements All systems rev neg except as marked. Past Medical History - Adult Stated Complaint ABD PAIN RADIATES TO BACK, HX PANCREATITIS Allergies Coded Allergies: Penicillins (Severe, THROAT SWELLS UP 07/05/17) Home Medications Reported Medications No Known Home Medications Past Medical History: Reports: Asthma. Additional Medical History Pancreatitis Past Surgical History: Reports: Abdominal surgery, Appendectomy, Cholecystectomy. Additional Surgical History None Alcohol Use Denies EtOH use Drug Use Denies recreational drugs Smoking status for patients 13 years old or older: Never Smoker Other Social History Primary family support Additional Social History family hx- unknown Physical Exam Vital Signs Vital Signs First Documented: Result Date Time Pulse Ox 97 01/06 1117 B/P 136/88 01/06 1117 B/P Mean 104 01/06 1117 O2 Delivery Room air 01/06 1117 Temp 36.7 01/06 1117 Pulse 88 01/06 1117 Resp 17 01/06 1117 Last Documented: Result Date Time Pulse Ox 98 01/06 1607 B/P 135/86 01/06 1607 B/P Mean 102 01/06 1607 O2 Delivery Room air 01/06 1607 Temp 36.7 01/06 1607 Pulse 55 01/06 1607 Resp 16 01/06 1607 Review of Vital Signs Reviewed Focused PE General/Const General/Const Awake, Alert, No acute distress Text/Dict Notes Afebrile, sitting uncomfortably in chair in mild discomfort but NAD, nontoxic, appears well clinic MS Head Head Atraumatic, Normocephalic Ears/Nose/Throat Ears/Nose/Throat Airway patent Resp/Chest Respiratory/Chest Breath sounds NL, No respiratory distress, No rales, No rhonchi, No wheezing Cardiovascular Cardiovascular Heart rate NL, Regular rhythm, Heart sounds NL Abdomen/GI Abdomen/GI Soft, No distention Text/Dict Notes Abdomen is soft with moderate TTP at the midpoint between the RUQ and mid epigastrium, no rebound or guarding present MS Back Back No midline vertebral tend, No CVA tenderness Skin Skin Warm, Dry Neurologic Neurologic Oriented X3, Speech NL Text/Dict Notes Moves all extremities equally Additional PE MS Neck Neck Supple, No swelling MS Lower Extrem Lower Ext/Pelvis/MS No swelling, Non-tender Psychiatric Psychiatric Affect NL, Mood NL Interpretation Diagnostics Lab Results Interpretation Results Laboratory Tests 01/07/20 1240: [Embedded Image Not Available] 01/07/20 1209: [Embedded Image Not Available] Laboratory Tests: 01/06 01/06 01/06 1453 1240 1209 Chemistry Sodium (134 - 147 mEq/L) 138 Potassium (3.4 - 5.0 mEq/L) 4.3 Chloride (100 - 108 mEq/L) 105 Carbon Dioxide (21 - 33 mEq/L) 28 Anion Gap (0 - 20) 9 BUN (7 - 18 mg/dL) 9 Creatinine (0.6 - 1.3 mg/dL) 1.0 Glomerular Filtr Rate (105 - 110) 85.0 L Glucose (70 - 110 mg/dL) 75 Calcium (8.0 - 10.5 mg/dL) 9.7 Magnesium (1.8 - 2.4 mg/dL) 1.93 Total Bilirubin (0.0 - 1.0 mg/dL) 1.00 AST (15 - 37 IUnit/L) 22 ALT (30 - 65 IUnit/L) 21 L Total Alk Phosphatase (20 - 125 IUnit/L) 65 Total Protein (6.4 - 8.2 g/dL) 7.4 Albumin (3.4 - 5.0 g/dL) 4.40 Lipase (13 - 57 U/L) 43 Hematology WBC (4.5 - 11.0 x10 3/uL) 7.15 RBC (4.00 - 5.60 x10 6/uL) 5.05 Hgb (12.5 - 16.9 g/dL) 16.0 Hct (37.5 - 50.7 %) 48.4 MCV (81.0 - 99.0 fL) 95.8 MCH (27.0 - 33.0 pg) 31.7 MCHC (33.0 - 37.0 g/dL) 33.1 RDW (11.5 - 14.5 %) 12.6 Plt Count (150 - 400 x10 3/uL) 294 MPV (7.0 - 9.0 fL) 10.7 H Neut % (Auto) (56.0 - 77.0 %) 59.0 Lymph % (Auto) (14.0 - 32.0 %) 26.4 Randolph % (Auto) (4.8 - 9.0 %) 9.1 H Eos % (Auto) (0.3 - 3.7 %) 4.5 H Baso % (Auto) (0.0 - 2.0 %) 0.7 Neut # (Auto) (2.0 - 7.6 x10 3/uL) 4.22 Lymph # (Auto) (1.0 - 3.8 x10 3/uL) 1.89 Randolph # (Auto) (0.1 - 0.8 x10 3/uL) 0.65 Eos # (Auto) (0.0 - 0.2 x10 3/uL) 0.32 H Baso # (Auto) (0.0 - 0.2 x10 3/uL) 0.05 Abs Immat Gran (auto) (0.00 - 0.03 x10 3/uL) 0.02 Add Manual Diff NO Immature Gran % (0.0 - 2.0 %) 0.3 Nucleated RBC % (0 - 0 %) 0.0 Nucleated RBCs # (Man) (0.0 - 0.1 x10 3/uL) 0.00 Urines Urine Color (YEL/STRAW) YELLOW Urine Appearance (CLEAR) CLEAR Urine pH (5.0 - 7.0) 5.0 Ur Specific [place] (1.005 - 1.030) 1.015 Urine Protein (NEGATIVE) NEGATIVE Urine Glucose (UA) (NEGATIVE) NEGATIVE Urine Ketones (NEGATIVE) NEGATIVE Urine Blood (NEGATIVE) NEGATIVE Urine Nitrite (NEGATIVE) NEGATIVE Urine Bilirubin (NEGATIVE) NEGATIVE Urine Urobilinogen (0.2 - 1.0 mg/dL) 0.2 Ur Leukocyte Esterase (NEGATIVE) NEGATIVE Urine RBC (0 - 3 RBC/HPF) 0-3 Urine WBC (0 - 3 WBC/HPF) 0-3 Ur Squamous Epith Cells (NONE SEEN /HPF) 0-5 Urine Bacteria (NONE SEEN /HPF) TRACE Urine Mucus (NONE SEEN /LPF) TRACE Recent Impressions: CAT SCAN - CT ABD PELVIS W/O CONT 01/06 1534 Report Impression - Status: SIGNED Entered: 01/07/2020 3445 IMPRESSION: 1. There is underdistention and mucosal thickening of the stomach which could be due to spasm or gastritis. There is no bowel perforation or obstruction. 2. The appendix is surgically absent. 3. There is no nephrolithiasis or acute renal process. 4. The gallbladder is surgically absent. 5. There is a mild apex leftward spinal curvature. This could be due to positioning, muscle spasm or mild scoliosis. Impression By: [email or web address] - Chucho Walker D.O. Point of Care Testing Pulse Oximetry Pulse Ox % 97 On: Room air Interpretation Interpreted by me, Pulse oximetry normal Time 1117 Re-Evaluation MDM ED Course Medication(s) Ordered Medication(s) Ordered: Central Nervous System Agents Sig/José Miguel Start time Last Medication Dose Route Stop Time Status Admin Ketorolac 30 MG X1ED STA 01/06 1438 DC 01/06 Tromethamine IV 01/06 1439 1504 Morphine Sulfate 4 MG X1ED STA 01/06 1438 DC 01/06 IV 01/06 1439 1503 Morphine Sulfate 4 MG X1ED STA 01/06 1150 DC 01/06 IV 01/06 1151 1240 Electrolytic, Caloric, And Sneha Sig/José Miguel Start time Last Medication Dose Route Stop Time Status Admin Sodium Chloride 1,000 ML X1ED STA 01/06 1151 DC 01/06 IV 01/06 1250 1239 Sodium Chloride 0 ASDIR PRN 01/06 1115 AC IV 01/07 1009 Gastrointestinal Drugs Sig/José Miguel Start time Last Medication Dose Route Stop Time Status Admin Ondansetron HCl 4 MG X1ED STA 01/06 1151 DC 01/06 IV 01/06 1152 1239 Patient Discharge Departure Vital Signs/Condition Vital Signs First Documented: Result Date Time Pulse Ox 97 01/06 1117 B/P 136/88 01/06 1117 B/P Mean 104 01/06 1117 O2 Delivery Room air 01/06 1117 Temp 36.7 01/06 1117 Pulse 88 01/06 1117 Resp 17 01/06 1117 Last Documented: Result Date Time Pulse Ox 98 01/06 1607 B/P 135/86 01/06 1607 B/P Mean 102 01/06 1607 O2 Delivery Room air 01/06 1607 Temp 36.7 01/06 1607 Pulse 55 01/06 1607 Resp 16 01/06 1607 All vital signs available at the time of this entry have been reviewed. Discharge/Care Plan (Auto) Prescriptions Current Visit Scripts No Known Home Medications Referrals No Primary or Family Physician (PCP/Family) Supervising Physician Note MidLv/Doc Saw Pt 1 I have seen and evaluated this patient and agree with the nurse practitioner or physician spa assistant manager's documentation and assessment. Documentation of one or more elements of my assessment are included in the medical record. Jelani Menjivar 01/07/20 1440: HPI-Abd Pain M Under 40 General Initial Greet Date/Time 01/07/20 1108 Re-Evaluation MDM )( Re-Evaluation/Progress #1 Text/Dict Note pt reports nausea improvement and abd pain improcement. still exeriencing significant flank and back pain. he reports urinary urgency yesterday. will add additional imaging and pain control and re-eval Time of Re-Eval 1429 )( Re-Eval Status Improved Patient Discharge Departure Vital Signs/Condition Condition Improved Clinical Impression Clinical Impression Primary Impression: Gastritis Disposition Decision Discharge )( Discharged to Home Yes )( Time 1552 )( Date 01/07/20 Discharge/Care Plan Counseled Regarding Diagnosis, Lab results, Imaging studies, Prescriptions, Need for follow-up, When to return to ED Prescriptions pepciyeimi veronica at 1159 at 1830 RPT #:[id number] END OF REPORT [facility] 2019-10-06 19:10:00 [facility] ([facility]) EMERGENCY PROVIDER REPORT REPORT#:[id number] REPORT STATUS: Signed DATE:10/06/19 TIME: 1909 PATIENT: TANNER BENDER UNIT #: [id number] ROOM/BED: AGE: 33 SEX: M PCP PHYS: No Primary or Family Physician SERVICE AUTHOR: Thor Olmedo MD * ALL edits or amendments must be made on the electronic/computer document * HPI-Abd Pain M Under 40 General Initial Greet Date/Time 10/06/19 1858 Presentation Chief Complaint Abdominal pain Sudden in Onset? No Onset Occurred Days ago (5) Symptom Duration Since onset Location Abdomen lower Quality Sharp Radiation Back. Migration/Movement None Severity: Onset Moderate Severity: Current Pain level 10 out of 10 Free Text HPI Notes Free Text HPI Notes 33-year-old male with a history of chronic pancreatitis complains of lower abdominal pain status post inguinal hernia repair 5 days ago. He states he has been having pain since then but started vomiting yesterday. Vomit x6. No diarrhea. Denies fever. States pain is 10 out of 10, radiating to the lower back, exacerbated by coughing or bending. Dr Álvarez was the surgeon Review of Systems ROS Statements All systems rev neg except as marked. Focused Review of Systems Constitutional Denies: Chills, Fever. Cardiovascular Denies: Chest pain. GI Reports: Abdominal pain, Nausea, Vomiting. Denies: Diarrhea. Past Medical History - Adult Stated Complaint VOMITING SINCE FRIDAY AFTER HERNIA REPAIR Allergies Coded Allergies: Penicillins (Severe, THROAT SWELLS UP 07/05/17) Home Medications Reported Medications No Known Home Medications Past Medical History: Reports: Asthma. Additional Medical History Pancreatitis Past Surgical History: Reports: Abdominal surgery, Appendectomy, Cholecystectomy. Additional Surgical History None Alcohol Use Denies EtOH use Drug Use Denies recreational drugs Smoking status for patients 13 years old or older: Never Smoker Other Social History Primary family support Additional Social History family hx- unknown Physical Exam Vital Signs Vital Signs First Documented: Result Date Time Pulse Ox 100 10/05 1855 B/P 124/75 10/05 1855 B/P Mean 91 10/05 1855 O2 Delivery Room air 10/05 185 Temp 36.4 10/05 1855 Pulse 98 10/05 1855 Resp 18 10/05 185 Last Documented: Result Date Time Pulse Ox 100 10/05 1855 B/P 124/75 10/05 1855 B/P Mean 91 10/05 1855 O2 Delivery Room air 10/05 185 Temp 36.4 10/05 1855 Pulse 98 10/05 1855 Resp 18 10/05 1855 Review of Vital Signs Reviewed Focused PE General/Const General/Const Awake, Alert, No acute distress Eyes Eyes PERRL, EOMI, No nystagmus Ears/Nose/Throat Ears/Nose/Throat Airway patent, Mucous membranes moist, Pharynx NL Resp/Chest Respiratory/Chest Breath sounds NL, Breath sounds = bilat, No respiratory distress Cardiovascular Cardiovascular Heart rate NL, Regular rhythm, Heart sounds NL Abdomen/GI Abdomen/GI Soft Text/Dict Notes Tender in the lower quadrants without rebound or guarding. Mild swelling around the lower abdomen. Surgical incision appears clean, dry, and intact. MS Back Back Inspection NL, Full range of motion, Painless range of motion, Non- tender, No CVA tenderness Skin Skin Color NL, No rash, Warm, Dry, Intact Neurologic Neurologic Oriented X3, Speech NL Interpretation Diagnostics Lab Results Interpretation Results Laboratory Tests 10/06/191914: [Embedded Image Not Available] Laboratory Tests: 10/05 1914 Chemistry Sodium (136 - 145 mmol/L) 135 L Potassium (3.5 - 5.1 mmol/L) 4.1 Chloride (101 - 109 mmol/L) 101 Carbon Dioxide (21 - 32 mmol/L) 26.4 Anion Gap (10 - 20 mmol/L) 12 BUN (3 - 21 mg/dL) 10 Creatinine (0.55 - 1.3 mg/dL) 1.13 BUN/Creatinine Ratio (10 - 20) 8.8 L Glucose (74 - 106 mg/dL) 137 H Calcium (8.4 - 10.2 mg/dL) 7.9 L Total Bilirubin (0.0 - 1.0 mg/dL) 0.60 AST (6 - 32 U/L) 19 ALT (12 - 78 U/L) 20 Total Alk Phosphatase (38 - 126 U/L) 50 Total Protein (6.5 - 8.4 g/dL) 7.2 Albumin (3.4 - 4.8 g/dL) 3.6 Globulin (1 - 10 G/DL) 3.6 Albumin/Globulin Ratio (0.75 - 1.50 RATIO) 1.00 Hematology WBC (4.5 - 12.5 K/mm3) 8.5 RBC (4.0 - 5.8 mill/mm3) 4.11 Hgb (13.0 - 17.5 gram/dL) 13.0 Hct (42.0 - 52.0 %) 38.3 L MCV (80 - 98 fL) 93.2 MCH (27.0 - 33.0 picogram) 31.6 MCHC (33.0 - 36.0 gram/dL) 33.9 RDW (11.6 - 16.2 %) 12.3 RDW Std Deviation (37.0 - 51.0 fL) 42.8 Plt Count (150 - 450 K/mm3) 306 MPV (6.7 - 11.0 fL) 10.3 Neut % (Auto) (39.0 - 69.0 %) 60.0 Lymph % (Auto) (25.0 - 55.0 %) 24.5 L Randolph % (Auto) (0.0 - 10.0 %) 9.6 Eos % (Auto) (0.0 - 5.0 %) 5.2 H Baso % (Auto) (0.0 - 1.0 %) 0.6 Neut # (Auto) (1.8 - 7.7 K/mm3) 5.08 Lymph # (Auto) (1.0 - 5.0 K/mm3) 2.07 Randolph # (Auto) (0 - 0.8 K/mm3) 0.81 H Eos # (Auto) (0.0 - 0.5 K/mm3) 0.44 Baso # (Auto) (0.0 - 0.2 K/mm3) 0.05 Urines Urine Color (YELLOW) YELLOW Urine Appearance (CLEAR) CLEAR Urine pH (5.0 - 8.0) 5.0 Ur Specific [place] (1.001 - 1.035) 1.025 Urine Protein (Neg - 15 mg/dL) neg Urine Glucose (UA) (NEGATIVE mg/dL) norm Urine Ketones (NEGATIVE mg/dL) neg Urine Blood (NEGATIVE [place]/uL) neg Urine Nitrite (NEGATIVE) NEGATIVE Urine Bilirubin (NEGATIVE mg/dL) NEGATIVE Urine Urobilinogen (0.0 - 0.2 mg/dL) 1 H Ur Leukocyte Esterase (NEGATIVE uL) neg Recent Impressions: CAT SCAN - CT ABD PELVIS W/CONT 10/05 1954 Report Impression - Status: SIGNED Entered: 10/06/20192032 IMPRESSION: 1. Postoperative changes in the left groin and suprapubic region but no evidence of abscess formation or other acute abnormalities. 2. Mild jejunal dilatation, probably representing mild ileus; no evidence of bowel obstruction. Location code: Impression By: Mel Riley M.D. 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 His pain is much improved. He has mild lower abdominal tenderness without rebound or guarding. He wants to sign out AMA. Patient was given return precautions and voiced understanding. Time of Re-Eval 2007 )( Re-Eval Status Improved ED Course Medication(s) Ordered Medication(s) Ordered: Central Nervous System Agents Sig/José Miguel Start time Last Medication Dose Route Stop Time Status Admin Morphine Sulfate 4 MG X1ED STA 10/05 1909 DC 10/05 IV 10/05 Diagnostic Agents Sig/José Miguel Start time Last Medication Dose Route Stop Time Status Admin Iopamidol 100 ML .STK-MED ONE 10/05 2004 DC 10/05 IV 10/05 Electrolytic, Caloric, And Sneha Sig/José Miguel Start time Last Medication Dose Route Stop Time Status Admin Sodium Chloride 1,000 ML BOLUS ONCE ONE 10/05 1914 DC 10/05 IV 10/05 Gastrointestinal Drugs Sig/José Miguel Start time Last Medication Dose Route Stop Time Status Admin Ondansetron HCl 4 MG X1ED STA 10/05 1909 DC 10/05 IV 10/05 Patient Discharge Departure Vital Signs/Condition Vital Signs First Documented: Result Date Time Pulse Ox 100 10/05 1855 B/P 124/75 10/05 1855 B/P Mean 91 10/05 1855 O2 Delivery Room air 10/05 1855 Temp 36.4 10/05 1855 Pulse 98 10/05 1855 Resp 18 10/05 1855 Last Documented: Result Date Time Pulse Ox 100 10/05 1855 B/P 124/75 10/05 1855 B/P Mean 91 10/05 1855 O2 Delivery Room air 10/05 1855 Temp 36.4 10/05 1855 Pulse 98 10/05 1855 Resp 18 10/05 1855 All vital signs available at the time of this entry have been reviewed. Condition Improved, Stable Clinical Impression Clinical Impression Primary Impression: Abdominal pain Disposition Decision Other )( Time 2008 )( Date 10/06/19 Against Medical Advice Yes Discharge/Care Plan (Auto) Prescriptions Current Visit Scripts No Known Home Medications Referrals No Primary or Family Physician (PCP/Family) Against Medical Advice AMA Request from Patient Cognition Alert, Oriented X 3, Answers appropriate, Speaks coherently, Thought process intact, Understands AMA, Explains AMA rationally Competent to Decide Yes Criteria for Invol Commit No Reason for leaving AMA Family responsibility Discussed Options to AMA Yes Present for Explanation Myself, Nurse Care Info Explained Clinical information, Relevant issues, Medical treatment, Medical intervention, Medical tests Risk Info Explained Possibility of , Permanent disability, Chronic pain, Worsening of condition, Gastrointestinal dysfunct, Loss of current lifestyle Patient Acknowledges Understanding care info, Understanding risk info Quality Measures BP F/U for HTN BP in normal range Smoking Cessation Screened, tobacco user, Tobacco cess intervention at 2326 RPT #:[id number] END OF REPORT [facility] 2019-08-24 18:26:00 [facility] ([facility]) EMERGENCY PROVIDER REPORT REPORT#:[id number] REPORT STATUS: Signed DATE:08/24/19 TIME: 1825 PATIENT: TANNER BENDER UNIT #: [id number] ROOM/BED: AGE: 33 SEX: M PCP PHYS: No Primary or Family Physician SERVICE AUTHOR: Thor Olmedo MD * ALL edits or amendments must be made on the electronic/computer document * HPI-Abd Pain M Under 40 General Initial Greet Date/Time 08/24/19 1755 Presentation Chief Complaint right groin pain Sudden in Onset? No Onset Occurred Weeks ago (3) Symptom Duration Since onset Location right groin Quality Painful Radiation Does not radiate. Severity: Onset Mild, Moderate Exacerbated by Movement Free Text HPI Notes Free Text HPI Notes 33-year-old male with a history of asthma and pancreatitis complains of right groin pain starting 1 week ago. He states he had felt a bump in his groin 3 weeks ago but pain just started 1 week ago. He thinks he has a hernia. He states there is a lump that gets worse during the day after he works but gets better with rest. He states the lump is small right now because he did not work today. He was seen here yesterday, received a CAT scan and ultrasound, which were normal. There was no hernia on imaging. He went to a PA today who sent him back here because she was worried that he may have a strangulated hernia due to the pain. Patient complains of nausea. Patient denies abdominal pain, vomiting, diarrhea, fever, dysuria, testicular pain. Review of Systems ROS Statements All systems rev neg except as marked. Focused Review of Systems Constitutional Denies: Chills, Fever. Respiratory Denies: Cough, non-productive, Cough, productive, Pleuritic pain. Cardiovascular Denies: Chest pain, Syncope. GI Denies: Abdominal pain, Constipation, Diarrhea, Nausea, Vomiting. Male Denies: Dysuria, Flank pain, Hematuria. Past Medical History - Adult Stated Complaint RLQ PAIN X 5 DAYS, WAS HERE YESTERDAY Allergies Coded Allergies: Penicillins (Severe, THROAT SWELLS UP 07/05/17) Home Medications Reported Medications No Known Home Medications Discontinued Reported Medications AMYLASE/LIPASE/PROTEA 120,000/24,000/76,000 U (CREON 24) 24,000 UNITS PO TID MEALS PROMETHAZINE (PHENERGAN) 25 MG PO Q6H PRN PRN PAIN ONDANSETRON (ZOFRAN) 8 MG PO Q8H PRN PRN NAUSEA/VOMITING PROMETHAZINE (PHENERGAN) 25 MG RECTAL Q6H PRN PRN VOMITING DICYCLOMINE (BENTYL) 20 MG PO TID CLINDAMYCIN HCL (CLEOCIN) 300 MG PO TID VANCOMYCIN (VANCOCIN) (Unknown Dose) Past Medical History: Reports: Asthma. Additional Medical History Pancreatitis Past Surgical History: Reports: Abdominal surgery, Appendectomy, Cholecystectomy. Additional Surgical History None Alcohol Use Denies EtOH use Drug Use Denies recreational drugs Smoking status for patients 13 years old or older: Current every day smoker Other Social History Primary family support Additional Social History family hx- unknown Physical Exam Vital Signs Vital Signs First Documented: Result Date Time Pulse Ox 99 08/23 1752 B/P 162/81 08/23 1752 B/P Mean 108 08/23 1752 O2 Delivery Room air 08/24 1751 Temp 36.9 05/ 1752 Pulse 86 08/23 1752 Resp 17 08/232 Last Documented: Result Date Time Pulse Ox 99 08/23 1752 B/P 162/81 08/23 1752 B/P Mean 108 08/23 1752 O2 Delivery Room air 08/23 175 Temp 36.9 / 1752 Pulse 86 08/23 1752 Resp 17 08/23 1752 Review of Vital Signs Reviewed Focused PE General/Const General/Const Awake, Alert, No acute distress Eyes Eyes PERRL, EOMI, No nystagmus Ears/Nose/Throat Ears/Nose/Throat Airway patent, Mucous membranes moist, Pharynx NL Resp/Chest Respiratory/Chest Breath sounds NL, Breath sounds = bilat, No respiratory distress Cardiovascular Cardiovascular Heart rate NL, Regular rhythm, Heart sounds NL Abdomen/GI Abdomen/GI Soft, Non-tender, McBurney's non-tender, No guarding, No rebound MS Back Back Inspection NL, Full range of motion, Painless range of motion, Non- tender Skin Skin Color NL, No rash, Warm, Dry, Intact Genitourinary General [employer]s And Shoes Supervisor present Text/Dict Notes Right inguinal area -1 x 1 cm area of mild swelling and tenderness. No erythema or fluctuance. Palpation of the inguinal canal produces pain but no indirect inguinal hernia was palpated. Neurologic Neurologic Oriented X3, Speech NL Interpretation Diagnostics Lab Results Interpretation Results Laboratory Tests 08/24/191822: [Embedded Image Not Available] Laboratory Tests: 08/23 1822 Chemistry Sodium (135 - 148 mmol/L) 143 Potassium (3.5 - 5.1 mmol/L) 4.2 Chloride (101 - 109 mmol/L) 105 Carbon Dioxide (21 - 32 mmol/L) 33.4 H Anion Gap (10 - 20 mmol/L) 9 L BUN (3 - 21 mg/dL) 7 Creatinine (0.55 - 1.3 mg/dL) 1.02 BUN/Creatinine Ratio (10 - 20) 6.9 L Glucose (74 - 106 mg/dL) 91 Calcium (8.4 - 10.2 mg/dL) 8.2 L Total Bilirubin (0.0 - 1.0 mg/dL) 0.80 AST (6 - 32 U/L) 17 ALT (12 - 78 U/L) 24 Total Alk Phosphatase (38 - 126 U/L) 58 Total Protein (6.5 - 8.4 g/dL) 7.9 Albumin (3.4 - 4.8 g/dL) 4.2 Globulin (1 - 10 G/DL) 3.7 Albumin/Globulin Ratio (0.75 - 1.50 RATIO) 1.1 Hematology WBC (4.5 - 12.5 K/mm3) 7.9 RBC (4.0 - 5.8 mill/mm3) 4.75 Hgb (13.0 - 17.5 gram/dL) 15.0 Hct (42.0 - 52.0 %) 45.2 MCV (80 - 98 fL) 95.2 MCH (27.0 - 33.0 picogram) 31.6 MCHC (33.0 - 36.0 gram/dL) 33.2 RDW (11.6 - 16.2 %) 12.8 RDW Std Deviation (37.0 - 51.0 fL) 45.7 Plt Count (150 - 450 K/mm3) 311 MPV (6.7 - 11.0 fL) 10.5 Neut % (Auto) (39.0 - 69.0 %) 62.6 Lymph % (Auto) (25.0 - 55.0 %) 27.7 Randolph % (Auto) (0.0 - 10.0 %) 7.6 Eos % (Auto) (0.0 - 5.0 %) 1.4 Baso % (Auto) (0.0 - 1.0 %) 0.6 Neut # (Auto) (1.8 - 7.7 K/mm3) 4.96 Lymph # (Auto) (1.0 - 5.0 K/mm3) 2.19 Randolph # (Auto) (0 - 0.8 K/mm3) 0.60 Eos # (Auto) (0.0 - 0.5 K/mm3) 0.11 Baso # (Auto) (0.0 - 0.2 K/mm3) 0.05 Add Manual Diff NO Urines Urine Color (YELLOW) YELLOW Urine Appearance (CLEAR) HAZY H Urine pH (5.0 - 8.0) 6.0 Ur Specific [place] (1.001 - 1.035) 1.020 Urine Protein (Neg - 15 mg/dL) neg Urine Glucose (UA) (NEGATIVE mg/dL) norm Urine Ketones (NEGATIVE mg/dL) neg Urine Blood (NEGATIVE [place]/uL) neg Urine Nitrite (NEGATIVE) NEGATIVE Urine Bilirubin (NEGATIVE mg/dL) NEGATIVE Urine Urobilinogen (0.0 - 0.2 mg/dL) 1 H Ur Leukocyte Esterase (NEGATIVE uL) neg Urine RBC (0 - 5 per HPF) NONE SEEN Urine WBC (0 - 5 per HPF) NONE SEEN Ur Epithelial Cells (Few per HPF) Rare (0-1/hpf) Urine Bacteria (NONE per HPF) TRACE Urine Mucus (NONE - FEW per LPF) FEW Lab Statement Laboratory studies reviewed and considered in the medical decision-making. Point of Care Testing Pulse Oximetry Pulse Ox % 99 On: Room air Interpretation Interpreted by me, Pulse oximetry normal Time 1832 Re-Evaluation [facility] )( Re-Evaluation/Progress #1 Text/Dict Note Patient in no acute distress. He does have tenderness in the right inguinal canal but no indirect inguinal hernia is palpated. There is also mild swelling of his right groin area, which might be a direct inguinal hernia or femoral hernia. CT and US yesterday didn't show any signs of hernia. If he does have a hernia, it is definitely not strangulated or incarcerated on exam. He states it is actually smaller today than yesterday because he did not work today. I advised him to follow-up with a general surgeon. I gave him return precautions and he voiced understanding. Time of Re-Eval 184 )( Re-Eval Status Improved Patient Discharge Departure Vital Signs/Condition Vital Signs First Documented: Result Date Time Pulse Ox 99 08/23 1752 B/P 162/81 05/ 1752 B/P Mean 108 05/ 1752 O2 Delivery Room air / 1752 Temp 36.9 05/12 1752 Pulse 86 05/ 1752 Resp 17 08/23 1752 Last Documented: Result Date Time Pulse Ox 99 05/ 1752 B/P 162/81 05/12 1752 B/P Mean 108 05/12 1752 O2 Delivery Room air 05/ 1752 Temp 36.9 05/12 1752 Pulse 86 05/12 1752 Resp 17 08/23 1752 All vital signs available at the time of this entry have been reviewed. Condition Improved, Stable Clinical Impression Clinical Impression Primary Impression: Inguinal hernia Disposition Decision Discharge )( Discharged to Home Yes )( Time 184 )( Date 08/24/19 Discharge/Care Plan Counseled Regarding Diagnosis, Lab results, Need for follow-up, When to return to ED (Auto) Prescriptions Current Visit Scripts No Known Home Medications Referrals No Primary or Family Physician (PCP/Family) Quality Measures BP F/U for HTN Referred for BP f/u < 4wk, F/u with PCP/other doc Smoking Cessation Screened, tobacco user, Tobacco cess intervention at 1850 RPT #:[id number] END OF REPORT [facility] 2019-08-23 17:10:00 [facility] ([facility]) EMERGENCY PROVIDER REPORT REPORT#:[id number] REPORT STATUS: Signed DATE:08/23/19 TIME: 1710 PATIENT: TANNER BENDER UNIT #: [id number] ROOM/BED: AGE: 33 SEX: M PCP PHYS: No Primary or Family Physician SERVICE AUTHOR: Jarett Frazier * ALL edits or amendments must be made on the electronic/computer document * HPI-Abd Pain M Under 40 General Confirmed Patient Yes Initial Greet Date/Time 08/23/19 1659 Presentation Chief Complaint Inguinal pain R Hx Obtained From Patient Sudden in Onset? No Context Recent Healthcare No recent doctor visit Free Text HPI Notes Free Text HPI Notes 33-year-old male with history of pancreatitis presents to ED with right groin pain x3.5 weeks, worsening in size and pain. No meds or treatment given prior to arrival. 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 Denies fever, chest pain, shortness of breath, nausea, vomiting, hematemesis, hematochezia, dysuria, or penile discharge Risk-Abd Pain M Under 40 )( Torsion Risk factors reviewed, No risk factors Review of Systems ROS Statements All systems rev neg except as marked. Focused Review of Systems Constitutional Denies: Chills, Fever, Lethargy. Respiratory Denies: Cough, non-productive, Cough, productive, Shortness of breath. Cardiovascular Denies: Chest pain, Syncope. GI Reports: Abdominal pain (right pelvic pain). Male Denies: Flank pain, Testicular pain. Musculoskeletal Denies: Back pain, Extremity pain. Past Medical History - Adult Stated Complaint LUMP ABOVE GROIN RIGHT SIDE Allergies Coded Allergies: Penicillins (Severe, THROAT SWELLS UP 07/05/17) Home Medications Discontinued Reported Medications AMYLASE/LIPASE/PROTEA 120,000/24,000/76,000 U (CREON 24) 24,000 UNITS PO TID MEALS PROMETHAZINE (PHENERGAN) 25 MG PO Q6H PRN PRN PAIN ONDANSETRON (ZOFRAN) 8 MG PO Q8H PRN PRN NAUSEA/VOMITING PROMETHAZINE (PHENERGAN) 25 MG RECTAL Q6H PRN PRN VOMITING DICYCLOMINE (BENTYL) 20 MG PO TID CLINDAMYCIN HCL (CLEOCIN) 300 MG PO TID VANCOMYCIN (VANCOCIN) (Unknown Dose) Review of Nursing Notes Triage notes reviewed Additional Medical History Pancreatitis Past Surgical History: Reports: Abdominal surgery, Appendectomy, Cholecystectomy. Ambulatory Status Independent Free Text PMH Notes Smokes 1/2 pack a day, denies alcohol or illicit drug use Physical Exam Vital Signs Vital Signs First Documented: Result Date Time Pulse Ox 99 08/22 170 B/P 159/96 08/22 170 B/P Mean 117 08/22 1700 Temp 98.3 08/22 1700 Pulse 76 08/22 170 Resp 18 08/22 1700 Last Documented: Result Date Time Pulse Ox 99 08/22 170 B/P 159/96 08/22 170 B/P Mean 117 08/22 1700 Temp 98.3 08/22 170 Pulse 76 08/22 170 Resp 18 08/22 1700 Review of Vital Signs Reviewed Focused PE General/Const General/Const Awake, Alert, Well appearing MS Head Head Normocephalic Eyes Eyes PERRL Ears/Nose/Throat Ears/Nose/Throat Airway patent, Mucous membranes moist, Pharynx NL Resp/Chest Respiratory/Chest Breath sounds NL, Breath sounds = bilat, No respiratory distress, No rales, No rhonchi, No wheezing Cardiovascular Cardiovascular Heart rate NL, Regular rhythm, Heart sounds NL, Peripheral circulation NL Abdomen/GI Abdomen/GI Soft Organomegaly/Mass/Hernia Hernia inguinal R (SMALL, SOFT REDUCIBLE NODULE), Hernia is reducible. MS Back Back Inspection NL, Non-tender, No CVA tenderness Skin Skin Color NL, Warm, Dry, Turgor NL Genitourinary General Exam deferred Rectum Rectum/Perineum Exam deferred Neurologic Neurologic Oriented X3, Speech NL, No motor deficits, No sensory deficits Interpretation Diagnostics Lab Results Interpretation Results Laboratory Tests 08/23/191715: [Embedded Image Not Available] Laboratory Tests: 08/23 1715 Chemistry Sodium (136 - 145 mmol/L) 141 Potassium (3.5 - 5.1 mmol/L) 4.0 Chloride (101 - 109 mmol/L) 103 Carbon Dioxide (21 - 32 mmol/L) 30.5 Anion Gap (10 - 20 mmol/L) 12 BUN (3 - 21 mg/dL) 7 Creatinine (0.55 - 1.3 mg/dL) 1.07 Glomerular Filtr Rate (>=60 mL/min) > 60 BUN/Creatinine Ratio (10 - 20) 6.5 L Glucose (74 - 106 mg/dL) 102 Calcium (8.4 - 10.2 mg/dL) 8.1 L Total Bilirubin (0.0 - 1.0 mg/dL) 1.20 H Direct Bilirubin (0.0 - 0.30 mg/dL) 0.20 AST (6 - 32 U/L) 16 ALT (12 - 78 U/L) 22 Total Alk Phosphatase (38 - 126 U/L) 58 Total Protein (6.5 - 8.4 g/dL) 7.3 Albumin (3.4 - 4.8 g/dL) 3.9 Globulin (1 - 10 G/DL) 3.4 Albumin/Globulin Ratio (0.75 - 1.50 RATIO) 1.15 Lipase (128 - 270 U/L) 293 H Hematology WBC (4.5 - 12.5 K/mm3) 7.1 RBC (4.0 - 5.8 mill/mm3) 4.68 Hgb (13.0 - 17.5 gram/dL) 14.3 Hct (42.0 - 52.0 %) 44.2 MCV (80 - 98 fL) 94.4 MCH (27.0 - 33.0 picogram) 30.6 MCHC (33.0 - 36.0 gram/dL) 32.4 L RDW (11.6 - 16.2 %) 12.4 RDW Std Deviation (37.0 - 51.0 fL) 44.0 Plt Count (150 - 450 K/mm3) 308 MPV (6.7 - 11.0 fL) 10.2 Toxicology Urine Opiates Screen (NEGATIVE) NEGATIVE Urine Barbiturates (NEGATIVE) NEGATIVE Ur Phencyclidine Scrn (NEGATIVE) NEGATIVE Ur Amphetamines Screen (NEGATIVE) NEGATIVE U Benzodiazepines Scrn (NEGATIVE) NEGATIVE Urine Cocaine Screen (NEGATIVE) POSITIVE H Urine Cannabinoids (NEGATIVE) POSITIVE H Urines Urine Color (YELLOW) YELLOW Urine Appearance (CLEAR) CLEAR Urine pH (5.0 - 8.0) 7.0 Ur Specific [place] (1.001 - 1.035) 1.010 Urine Protein (Neg - 15 mg/dL) neg Urine Glucose (UA) (NEGATIVE mg/dL) norm Urine Ketones (NEGATIVE mg/dL) neg Urine Blood (NEGATIVE [place]/uL) neg Urine Nitrite (NEGATIVE) NEGATIVE Urine Bilirubin (NEGATIVE mg/dL) NEGATIVE Urine Urobilinogen (0.0 - 0.2 mg/dL) 1 H Ur Leukocyte Esterase (NEGATIVE uL) neg Urine RBC (0 - 5 per HPF) 0-3 Urine WBC (0 - 5 per HPF) 0-5 Ur Epithelial Cells (Few per HPF) Rare (0-1/hpf) Urine Bacteria (NONE per HPF) TRACE Recent Impressions: ULTRASOUND - US ABDOMEN LTD 08/22 174 Report Impression - Status: SIGNED Entered: 08/23/2019 181 IMPRESSION: No evidence of hernia. Impression By: Bubba Zayas M.D. CAT SCAN - CT ABD PELVIS W/CONT 08/23 1919 Report Impression - Status: SIGNED Entered: 08/23/2019 194 IMPRESSION: No evidence of acute abdominal or pelvic abnormalities. No abnormalities in the right groin region. Impression By: Mel Riley M.D. Lab Imaging Statement Laboratory radiographic studies reviewed and considered in the medical decision-making. Point of Care Testing Pulse Oximetry Pulse Ox % 99 On: Room air Interpretation Interpreted by me, Pulse oximetry normal Re-Evaluation MDM Free Text MDM Notes Free Text MDM Notes Discussed test results with diagnosis and treatment plan, including smoking and drug cessation. Prescribed Anaprox DS for pain. Follow-up with PCP. ED precautions given-patient voiced understanding and agrees with plan. )( Re-Evaluation/Progress #1 Text/Dict Note Awaiting ultrasound. Complaining of no improvement from Toradol morphine ordered. Time of Re-Eval 1801 )( Re-Eval Status Unchanged Abd Pain MDM Note M < 40 The patient is resting comfortably and feels better, is alert and in no distress. The repeat examination is unremarkable and benign; in particular, there is no discomfort at McBurney's point. The history, exam, diagnostic testing, and current condition do not suggest acute appendicitis, bowel obstruction, incarcerated hernia, testicular torsion, acute cholecystitis, bowel perforation, major gastrointestinal bleeding, severe diverticulitis, sepsis, or other significant pathology to warrant further testing, continued ED treatment, admission, or surgical evaluation at this point. The vital signs have been stable and are within normal limits at this time. The patient does not have uncontrollable pain, intractable vomiting, or other significant symptoms. The patient's condition is stable and appropriate for discharge. The patient will pursue further outpatient evaluation with the primary care physician or other designated or consulting physician as indicated in the discharge instructions. TAD MDM Note There is no historical, physical exam, laboratory or imaging data that would suggest a need to consider or further evaluate the patient for thoracic aortic dissection at this time. I am no longer considering thoracic aortic dissection in the differential diagnosis. The timing of the onset of pain and the pain radiation pattern are not consistent with dissection. There has been no movement of pain from the chest to the back or to the abdomen, which would be consistent with a dissection process. The analysis of risks that would predispose to dissection does not indicate a need to further pursue the diagnosis. The patient 's vital signs have been stable, there is no apparent aortic murmur, and there is either 1) no gross radial pulse differential and/or 2) no significant blood pressure differential between the right and left arms. In addition, the laboratory and imaging results are not consistent with aortic dissection. In particular, the chest x-ray does not meet any of the criteria for aortic dissection. Tissue Perfusion Reassessment Patient tissue perfusion reassessment completed. Re-Evaluation/Progress #2 Text/Dict Note Ultrasound negative. Pain continues CT ordered. Time of Eval 1818 Abd Pain MDM Note M < 40 The patient is resting comfortably and feels better, is alert and in no distress. The repeat examination is unremarkable and benign; in particular, there is no discomfort at McBurney's point. The history, exam, diagnostic testing, and current condition do not suggest acute appendicitis, bowel obstruction, incarcerated hernia, testicular torsion, acute cholecystitis, bowel perforation, major gastrointestinal bleeding, severe diverticulitis, sepsis, or other significant pathology to warrant further testing, continued ED treatment, admission, or surgical evaluation at this point. The vital signs have been stable and are within normal limits at this time. The patient does not have uncontrollable pain, intractable vomiting, or other significant symptoms. The patient's condition is stable and appropriate for discharge. The patient will pursue further outpatient evaluation with the primary care physician or other designated or consulting physician as indicated in the discharge instructions. TAD [facility] Note There is no historical, physical exam, laboratory or imaging data that would suggest a need to consider or further evaluate the patient for thoracic aortic dissection at this time. I am no longer considering thoracic aortic dissection in the differential diagnosis. The timing of the onset of pain and the pain radiation pattern are not consistent with dissection. There has been no movement of pain from the chest to the back or to the abdomen, which would be consistent with a dissection process. The analysis of risks that would predispose to dissection does not indicate a need to further pursue the diagnosis. The patient 's vital signs have been stable, there is no apparent aortic murmur, and there is either 1) no gross radial pulse differential and/or 2) no significant blood pressure differential between the right and left arms. In addition, the laboratory and imaging results are not consistent with aortic dissection. In particular, the chest x-ray does not meet any of the criteria for aortic dissection. Tissue Perfusion Reassessment Patient tissue perfusion reassessment completed. ED Course Medication(s) Ordered Medication(s) Ordered: Central Nervous System Agents Sig/José Miguel Start time Last Medication Dose Route Stop Time Status Admin Morphine Sulfate 4 MG X1ED STA 08/22 1802 DC 08/22 IV 08/22 180 1816 Ketorolac 30 MG X1ED STA 08/22 1709 DC 08/22 Tromethamine IV 08/22 1710 1723 Diagnostic Agents Sig/José Miguel Start time Last Medication Dose Route Stop Time Status Admin Iopamidol 0 .STK-MED ONE 08/22 1922 DC 08/22 .ROUTE 1925 Patient Discharge Departure Vital Signs/Condition Vital Signs First Documented: Result Date Time Pulse Ox 99 08/22 1701 B/P 159/96 08/22 1701 B/P Mean 117 08/22 1701 Temp 98.3 08/22 1701 Pulse 76 08/22 1701 Resp 18 08/22 1701 Last Documented: Result Date Time Pulse Ox 99 08/22 1701 B/P 159/96 08/22 1701 B/P Mean 117 08/22 1701 Temp 98.3 11 1701 Pulse 76 08/22 1701 Resp 18 08/22 1701 All vital signs available at the time of this entry have been reviewed. Condition Stable Clinical Impression Clinical Impression Primary Impression: Right lower quadrant abdominal pain Disposition Decision Discharge )( Discharged to Home Yes )( Time 1955 )( Date 08/23/19 Discharge/Care Plan Referrals No Primary or Family Physician (PCP/Family) Discharge Note I have spoken with the patient and/or caregivers. I have explained the patient's condition, diagnoses and treatment plan based on the information available to me at this time. I have answered the patient's and/or caregiver's questions and addressed any concerns. The patient and/or caregivers have as good an understanding of the patient's diagnosis, condition and treatment plan as can be expected at this point. The vital signs have been stable. The patient's condition is stable and appropriate for discharge from the emergency department. The patient will pursue further outpatient evaluation with the primary care physician or other designated or consulting physician as outlined in the discharge instructions. The patient and/or caregivers are agreeable to this plan of care and follow-up instructions have been explained in detail. The patient and/or caregivers have received these instructions in written format and have expressed an understanding of the discharge instructions. The patient and/or caregivers are aware that any significant change in condition or worsening of symptoms should prompt an immediate return to this or the closest emergency department or a call to 911. Quality Measures BP F/U for HTN F/u with PCP/other doc Smoking Cessation Screened, non user Tobacco Screening/Cessation Tobacco user at 1960 RPT #:[id number] END OF REPORT [facility] 2019-08-23 17:10:00 [facility] ([facility]) EMERGENCY PROVIDER REPORT REPORT#:[id number] REPORT STATUS: Signed DATE:08/23/19 TIME: 1709 PATIENT: TANNER BENDER UNIT #: [id number] ROOM/BED: AGE: 33 SEX: M PCP PHYS: No Primary or Family Physician SERVICE AUTHOR: Jarett Frazier * ALL edits or amendments must be made on the electronic/computer document * Karin08/23/19 1710: HPI-Abd Pain M Under 40 General Confirmed Patient Yes Presentation Chief Complaint Inguinal pain R Hx Obtained From Patient Sudden in Onset? No Context Recent Healthcare No recent doctor visit Free Text HPI Notes Free Text HPI Notes 33-year-old male with history of pancreatitis presents to ED with right groin pain x3.5 weeks, worsening in size and pain. No meds or treatment given prior to arrival. 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 Denies fever, chest pain, shortness of breath, nausea, vomiting, hematemesis, hematochezia, dysuria, or penile discharge Risk-Abd Pain M Under 40 )( Torsion Risk factors reviewed, No risk factors Review of Systems ROS Statements All systems rev neg except as marked. Focused Review of Systems Constitutional Denies: Chills, Fever, Lethargy. Respiratory Denies: Cough, non-productive, Cough, productive, Shortness of breath. Cardiovascular Denies: Chest pain, Syncope. GI Reports: Abdominal pain (right pelvic pain). Male Denies: Flank pain, Testicular pain. Musculoskeletal Denies: Back pain, Extremity pain. Past Medical History - Adult Stated Complaint LUMP ABOVE GROIN RIGHT SIDE Allergies Coded Allergies: Penicillins (Severe, THROAT SWELLS UP 07/05/17) Review of Nursing Notes Triage notes reviewed Additional Medical History Pancreatitis Past Surgical History: Reports: Abdominal surgery, Appendectomy, Cholecystectomy. Ambulatory Status Independent Free Text H Notes Smokes 1/2 pack a day, denies alcohol or illicit drug use Physical Exam Vital Signs Vital Signs First Documented: Result Date Time Pulse Ox 99 08/22 1700 B/P 159/96 08/22 1700 B/P Mean 117 08/22 1700 Temp 36.8 08/22 170 Pulse 76 08/22 1701 Resp 18 08/22 1701 O2 Delivery Room air 08/22 1900 Last Documented: Result Date Time Pulse Ox 98 08/23 1999 B/P 140/89 08/23 1999 B/P Mean 106 08/23 1999 O2 Delivery Room air 08/23 1999 Temp 36.8 08/23 1999 Pulse 73 08/23 1999 Resp 16 08/23 1999 Review of Vital Signs Reviewed Focused PE General/Const General/Const Awake, Alert, Well appearing MS Head Head Normocephalic Eyes Eyes PERRL Ears/Nose/Throat Ears/Nose/Throat Airway patent, Mucous membranes moist, Pharynx NL Resp/Chest Respiratory/Chest Breath sounds NL, Breath sounds = bilat, No respiratory distress, No rales, No rhonchi, No wheezing Cardiovascular Cardiovascular Heart rate NL, Regular rhythm, Heart sounds NL, Peripheral circulation NL Abdomen/GI Abdomen/GI Soft Organomegaly/Mass/Hernia Hernia inguinal R (SMALL, SOFT REDUCIBLE NODULE), Hernia is reducible. MS Back Back Inspection NL, Non-tender, No CVA tenderness Skin Skin Color NL, Warm, Dry, Turgor NL Genitourinary General Exam deferred Rectum Rectum/Perineum Exam deferred Neurologic Neurologic Oriented X3, Speech NL, No motor deficits, No sensory deficits Interpretation Diagnostics Lab Results Interpretation Results Laboratory Tests 08/23/191715: [Embedded Image Not Available] Laboratory Tests: 08/23 1715 Chemistry Sodium (136 - 145 mmol/L) 141 Potassium (3.5 - 5.1 mmol/L) 4.0 Chloride (101 - 109 mmol/L) 103 Carbon Dioxide (21 - 32 mmol/L) 30.5 Anion Gap (10 - 20 mmol/L) 12 BUN (3 - 21 mg/dL) 7 Creatinine (0.55 - 1.3 mg/dL) 1.07 Glomerular Filtr Rate (>=60 mL/min) > 60 BUN/Creatinine Ratio (10 - 20) 6.5 L Glucose (74 - 106 mg/dL) 102 Calcium (8.4 - 10.2 mg/dL) 8.1 L Total Bilirubin (0.0 - 1.0 mg/dL) 1.20 H Direct Bilirubin (0.0 - 0.30 mg/dL) 0.20 AST (6 - 32 U/L) 16 ALT (12 - 78 U/L) 22 Total Alk Phosphatase (38 - 126 U/L) 58 Total Protein (6.5 - 8.4 g/dL) 7.3 Albumin (3.4 - 4.8 g/dL) 3.9 Globulin (1 - 10 G/DL) 3.4 Albumin/Globulin Ratio (0.75 - 1.50 RATIO) 1.15 Lipase (128 - 270 U/L) 293 H Hematology WBC (4.5 - 12.5 K/mm3) 7.1 RBC (4.0 - 5.8 mill/mm3) 4.68 Hgb (13.0 - 17.5 gram/dL) 14.3 Hct (42.0 - 52.0 %) 44.2 MCV (80 - 98 fL) 94.4 MCH (27.0 - 33.0 picogram) 30.6 MCHC (33.0 - 36.0 gram/dL) 32.4 L RDW (11.6 - 16.2 %) 12.4 RDW Std Deviation (37.0 - 51.0 fL) 44.0 Plt Count (150 - 450 K/mm3) 308 MPV (6.7 - 11.0 fL) 10.2 Toxicology Urine Opiates Screen (NEGATIVE) NEGATIVE Urine Barbiturates (NEGATIVE) NEGATIVE Ur Phencyclidine Scrn (NEGATIVE) NEGATIVE Ur Amphetamines Screen (NEGATIVE) NEGATIVE U Benzodiazepines Scrn (NEGATIVE) NEGATIVE Urine Cocaine Screen (NEGATIVE) POSITIVE H Urine Cannabinoids (NEGATIVE) POSITIVE H Urines Urine Color (YELLOW) YELLOW Urine Appearance (CLEAR) CLEAR Urine pH (5.0 - 8.0) 7.0 Ur Specific [place] (1.001 - 1.035) 1.010 Urine Protein (Neg - 15 mg/dL) neg Urine Glucose (UA) (NEGATIVE mg/dL) norm Urine Ketones (NEGATIVE mg/dL) neg Urine Blood (NEGATIVE [place]/uL) neg Urine Nitrite (NEGATIVE) NEGATIVE Urine Bilirubin (NEGATIVE mg/dL) NEGATIVE Urine Urobilinogen (0.0 - 0.2 mg/dL) 1 H Ur Leukocyte Esterase (NEGATIVE uL) neg Urine RBC (0 - 5 per HPF) 0-3 Urine WBC (0 - 5 per HPF) 0-5 Ur Epithelial Cells (Few per HPF) Rare (0-1/hpf) Urine Bacteria (NONE per HPF) TRACE Recent Impressions: ULTRASOUND - US ABDOMEN LTD 08/22 1745 Report Impression - Status: SIGNED Entered: 08/23/2019 1815 IMPRESSION: No evidence of hernia. Impression By: Bubba Zayas M.D. CAT SCAN - CT ABD PELVIS W/CONT 08/22 192 Report Impression - Status: SIGNED Entered: 08/23/2019 194 IMPRESSION: No evidence of acute abdominal or pelvic abnormalities. No abnormalities in the right groin region. Impression By: Mel Riley M.D. Lab Imaging Statement Laboratory radiographic studies reviewed and considered in the medical decision-making. Point of Care Testing Pulse Oximetry Pulse Ox % 99 On: Room air Interpretation Interpreted by me, Pulse oximetry normal Re-Evaluation MDM Free Text MDM Notes Free Text MDM Notes Discussed test results with diagnosis and treatment plan, including smoking and drug cessation. Prescribed Anaprox DS for pain. Follow-up with PCP. ED precautions given-patient voiced understanding and agrees with plan. )( Re-Evaluation/Progress #1 Text/Dict Note Awaiting ultrasound. Complaining of no improvement from Toradol morphine ordered. Time of Re-Eval 1801 )( Re-Eval Status Unchanged Abd Pain MDM Note M < 40 The patient is resting comfortably and feels better, is alert and in no distress. The repeat examination is unremarkable and benign; in particular, there is no discomfort at McBurney's point. The history, exam, diagnostic testing, and current condition do not suggest acute appendicitis, bowel obstruction, incarcerated hernia, testicular torsion, acute cholecystitis, bowel perforation, major gastrointestinal bleeding, severe diverticulitis, sepsis, or other significant pathology to warrant further testing, continued ED treatment, admission, or surgical evaluation at this point. The vital signs have been stable and are within normal limits at this time. The patient does not have uncontrollable pain, intractable vomiting, or other significant symptoms. The patient's condition is stable and appropriate for discharge. The patient will pursue further outpatient evaluation with the primary care physician or other designated or consulting physician as indicated in the discharge instructions. TAD MDM Note There is no historical, physical exam, laboratory or imaging data that would suggest a need to consider or further evaluate the patient for thoracic aortic dissection at this time. I am no longer considering thoracic aortic dissection in the differential diagnosis. The timing of the onset of pain and the pain radiation pattern are not consistent with dissection. There has been no movement of pain from the chest to the back or to the abdomen, which would be consistent with a dissection process. The analysis of risks that would predispose to dissection does not indicate a need to further pursue the diagnosis. The patient 's vital signs have been stable, there is no apparent aortic murmur, and there is either 1) no gross radial pulse differential and/or 2) no significant blood pressure differential between the right and left arms. In addition, the laboratory and imaging results are not consistent with aortic dissection. In particular, the chest x-ray does not meet any of the criteria for aortic dissection. Tissue Perfusion Reassessment Patient tissue perfusion reassessment completed. Re-Evaluation/Progress #2 Text/Dict Note Ultrasound negative. Pain continues CT ordered. Time of Eval 1818 Abd Pain MDM Note M < 40 The patient is resting comfortably and feels better, is alert and in no distress. The repeat examination is unremarkable and benign; in particular, there is no discomfort at McBurney's point. The history, exam, diagnostic testing, and current condition do not suggest acute appendicitis, bowel obstruction, incarcerated hernia, testicular torsion, acute cholecystitis, bowel perforation, major gastrointestinal bleeding, severe diverticulitis, sepsis, or other significant pathology to warrant further testing, continued ED treatment, admission, or surgical evaluation at this point. The vital signs have been stable and are within normal limits at this time. The patient does not have uncontrollable pain, intractable vomiting, or other significant symptoms. The patient's condition is stable and appropriate for discharge. The patient will pursue further outpatient evaluation with the primary care physician or other designated or consulting physician as indicated in the discharge instructions. TAD MDM Note There is no historical, physical exam, laboratory or imaging data that would suggest a need to consider or further evaluate the patient for thoracic aortic dissection at this time. I am no longer considering thoracic aortic dissection in the differential diagnosis. The timing of the onset of pain and the pain radiation pattern are not consistent with dissection. There has been no movement of pain from the chest to the back or to the abdomen, which would be consistent with a dissection process. The analysis of risks that would predispose to dissection does not indicate a need to further pursue the diagnosis. The patient 's vital signs have been stable, there is no apparent aortic murmur, and there is either 1) no gross radial pulse differential and/or 2) no significant blood pressure differential between the right and left arms. In addition, the laboratory and imaging results are not consistent with aortic dissection. In particular, the chest x-ray does not meet any of the criteria for aortic dissection. Tissue Perfusion Reassessment Patient tissue perfusion reassessment completed. ED Course Medication(s) Ordered Medication(s) Ordered: Central Nervous System Agents Sig/José Miguel Start time Last Medication Dose Route Stop Time Status Admin Morphine Sulfate 4 MG X1ED STA 08/22 180 DC 08/22 IV 08/22 1803 1816 Ketorolac 30 MG X1ED STA 08/22 1709 DC 08/22 Tromethamine IV 08/22 1710 1723 Diagnostic Agents Sig/José Miguel Start time Last Medication Dose Route Stop Time Status Admin Iopamidol 0 .STK-MED ONE 08/22 1921 DC 08/22 .ROUTE 1924 Patient Discharge Departure Vital Signs/Condition Vital Signs First Documented: Result Date Time Pulse Ox 99 08/22 170 B/P 159/96 08/22 170 B/P Mean 117 08/22 170 Temp 36.8 08/22 1700 Pulse 76 08/22 1701 Resp 18 08/22 1701 O2 Delivery Room air 08/22 190 Last Documented: Result Date Time Pulse Ox 98 08/23 1999 B/P 140/89 08/23 1999 B/P Mean 106 08/23 1999 O2 Delivery Room air 08/23 1999 Temp 36.8 08/23 1999 Pulse 73 08/23 1999 Resp 16 08/23 1999 All vital signs available at the time of this entry have been reviewed. Condition Stable Clinical Impression Clinical Impression Primary Impression: Right lower quadrant abdominal pain Disposition Decision Discharge )( Discharged to Home Yes )( Time 1955 )( Date 08/23/19 Discharge/Care Plan Referrals No Primary or Family Physician (PCP/Family) Discharge Note I have spoken with the patient and/or caregivers. I have explained the patient's condition, diagnoses and treatment plan based on the information available to me at this time. I have answered the patient's and/or caregiver's questions and addressed any concerns. The patient and/or caregivers have as good an understanding of the patient's diagnosis, condition and treatment plan as can be expected at this point. The vital signs have been stable. The patient's condition is stable and appropriate for discharge from the emergency department. The patient will pursue further outpatient evaluation with the primary care physician or other designated or consulting physician as outlined in the discharge instructions. The patient and/or caregivers are agreeable to this plan of care and follow-up instructions have been explained in detail. The patient and/or caregivers have received these instructions in written format and have expressed an understanding of the discharge instructions. The patient and/or caregivers are aware that any significant change in condition or worsening of symptoms should prompt an immediate return to this or the closest emergency department or a call to 911. Quality Measures BP F/U for HTN F/u with PCP/other doc Smoking Cessation Screened, non user Tobacco Screening/Cessation Tobacco user Rm Chow 08/26/19 0706: HPI-Abd Pain M Under 40 General Initial Greet Date/Time 08/23/19 1659 Past Medical History - Adult Home Medications Reported Medications No Known Home Medications Discontinued Reported Medications AMYLASE/LIPASE/PROTEA 120,000/24,000/76,000 U (CREON 24) 24,000 UNITS PO TID MEALS PROMETHAZINE (PHENERGAN) 25 MG PO Q6H PRN PRN PAIN ONDANSETRON (ZOFRAN) 8 MG PO Q8H PRN PRN NAUSEA/VOMITING PROMETHAZINE (PHENERGAN) 25 MG RECTAL Q6H PRN PRN VOMITING DICYCLOMINE (BENTYL) 20 MG PO TID CLINDAMYCIN HCL (CLEOCIN) 300 MG PO TID VANCOMYCIN (VANCOCIN) (Unknown Dose) Patient Discharge Departure Discharge/Care Plan (Auto) Prescriptions Current Visit Scripts No Known Home Medications Supervising Physician Note MidLv Saw Pt Alone I have reviewed the PA/RUBBER GOODS INSPECTOR TESTER's note and plan of care. I was available for consultation as needed at all times during the patient's visit in the emergency department. I agree with the clinical impression, plan and disposition. at 1960 at 0706 [facility] #:[id number] END OF REPORT [facility]
[2024-01-28 16:09] LABS: Absolute Basophils 0.1 K/uL (0-0.5); Absolute Eosinophils 0.2 K/uL (0-0.5); Absolute Lymphocytes (CBC) 1.5 K/uL (0.7-4.9); Absolute Monocytes 0.6 K/uL (0.1-1.3); Absolute Neutrophil 4.9 K/uL (1.8-8.0); Basophils % 0.8 % (0-1.3); Eosinophils % 2.5 % (0-4.4); Hematocrit 35.2 % (39.6-49.0); Hemoglobin 11.8 g/dL (13.6-17.9); Lymphocytes % 20.6 % (15.3-44.8); MCH 27.4 pg (27.0-35.0); MCHC 33.4 g/dL (32.0-36.0); MCV 82.1 fL (80-100); MPV 8.1 fL (7.6-11.3); Monocytes % 7.9 % (3.3-12.3); Neutrophils % 68.2 % (41.7-73.7); Platelets 398 thou/uL (152-406); RBC Red Blood Cell Count 4.29 M/uL (4.33-5.43); Red Cell Distribution Width 16.1 % (12.1-15.2)
[2024-01-28] MEDS ORDERED: ASPIRIN 81 MG CHEWABLE TABLET ONE (16:19)
[2024-01-28] MEDS ORDERED: LORazepam 2 MG/ML VIAL ONE (16:19)
--- NOTE | 2024-01-28 16:32 | RAD REPORT ---
EXAMINATION: ONE VIEW CHEST XR CLINICAL INDICATION: CHEST PAIN TECHNIQUE: Frontal chest projection is submitted. Examination is limited by patient positioning and t echnique. COMPARISON: 01/23/2024 FINDINGS: The lungs are well inflated and clear. The heart is normal in size. No displaced fractures identified . IMPRESSION: No acute intrathoracic abnormalities.
[2024-01-28 16:33] LABS: ALT/SGPT 29 U/L (16-61); AST/SGOT 13 U/L (15-37); Albumin 3.5 g/dL (3.4-5.0); Albumin/Globulin Ratio 0.8 (1.1-1.8); Alkaline Phosphatase 69 U/L (45-117); Anion Gap 8.6 mEq/L (5.0-15.0); BUN Blood Urea Nitrogen 9 mg/dL (7-18); Bicarbonate 27 mEq/L (21-32); Bilirubin Total 0.6 mg/dL (0.2-1.0); Globulin 4.5 g/dL (2.3-3.5); Glomerular Filtration Rate 113 ml/min (=/>90); Glucose Level 88 mg/dL (74-106); Lipase 52 U/L (13-75); Magnesium 2.2 mg/dL (1.6-2.4); NT PRO-BNP 98 pg/mL (<125); Potassium 3.6 mEq/L (3.5-5.1); Sodium Level 140 mEq/L (136-145); Troponin High Sensitivity 3.5 pg/mL (<58.9)
[2024-01-28 16:34] LABS: Bilirubin Direct < 0.2 mg/dL (0-0.2); Bilirubin Indirect, Calculated 0.4 mg/dL (0.2-0.8)
[2024-01-28] MEDS ORDERED: MORPHINE 4 MG/ML SYR ONE ×2 (16:52→18:43)
[2024-01-28] MEDS ORDERED: ONDANSETRON 4 MG/2 ML VIAL ONE (16:52)
--- NOTE | 2024-01-28 17:29 | RAD REPORT ---
EXAM: CTA of the chest, abdomen and pelvis HISTORY: Chest pain and back pain chest pain COMPARISON: None TECHNIQUE: Multiple contiguous axial images were obtained a CTA of the chest and abdomen with contras t per aortic dissection protocol. This involves 3D reconstructions, MIPs, volume rendered images and/or shaded surface rendering. One or more of the following dose reduction techniques were used: Au tomated exposure control, adjustment of the mA and/or kV according to patient size, and/or iterative reconstruction. Unless otherwise specified, incidental findings do not require dedicated im aging follow-up. Sagittal and coronal 3-D MIP reformats were performed. FINDINGS: PULMONARY ARTERIES: Normal in caliber without filling defects to suggest pulmonary emboli. ASCENDING THORACIC AORTA: Normal caliber without evidence of dissection or aneurysmal dilatation. DESCENDING THORACIC AORTA: Normal caliber without evidence of dissection or aneurysmal dilatation. ABDOMINAL AORTA: Normal caliber without evidence of dissection or aneurysmal dilatation. CELIAC TRUNK: Patent. SMA: Patent CHRISTIAN: Patent RENAL ARTERIES: Bilateral single renal arteries without significant atherosclerotic disease. MEDIASTINUM: No hilar or mediastinal lymphadenopathy. LUNGS: No focal infiltrates or masses. PLEURAL SPACE: No pleural effusion or pneumothorax. LIVER: Unremarkable. Cholecystectomy clips. SPLEEN: Unremarkable. PANCREAS: Unremarkable. KIDNEYS: Unremarkable. ADRENALS: Unremarkable. BOWEL: Unremarkable. RETROPERITONEUM: No lymphadenopathy. BONES: Unremarkable ADDITIONAL FINDINGS: IMPRESSION: No evidence of thoracic or abdominal aortic aneurysm or dissection.
[2024-01-28 17:52] LABS: PT Prothrombin Time 11.9 SECONDS (9.4-12.5); Protime INR 1.06
[2024-01-28] MEDS ORDERED: MAGNES/ALUMIN/SIMET 30ML UCUP ONE (20:00)
[2024-01-28] MEDS ORDERED: LIDOCAINE VISCOUS 2% 10ML ORAL SOLN ONE (20:01)
[2024-01-28] MEDS ORDERED: KETOROLAC 30 MG/ML INJ ONE (20:01)
[2024-01-28] MEDS ORDERED: FENTANYL CITR 100 MCG/2 ML ONE (20:31)
--- NOTE | 2024-01-28 20:32 | ER ---
Nurse's Notes [facility] Name: Justice Joshi Age: 38 yrs Sex: Male : 1985 Arrival Date: 01/28/2024 Time: 15:12 Bed 15 Private MD: Diagnosis: Chest pain, unspecified Presentation: 01/27 15:14 Chief complaint: EMS states: Chest pain radiating to back and L arm, VSS, was seen in ED on 01/22 for similar complaint but states that pain is worse this time. Coronavirus screen: Vaccine status: Patient reports being unvaccinated. Ebola Screen: No symptoms or risks identified at this time. Initial Sepsis Screen: Does the patient meet any 2 criteria? No. Patient's initial sepsis screen is negative. Does the patient have a suspected source of infection? No. Patient's initial sepsis screen is negative. Risk Assessment: Do you want to hurt yourself or someone else? Patient reports no desire to harm self or others. 15:14 Method Of Arrival: EMS: [facility] 15:14 Acuity: JOE 2 15:19 Onset of symptoms was January 28, 2024. Triage Assessment: 15:17 General: Appears in no apparent distress. uncomfortable, Behavior is cooperative. Pain: Complains of pain in anterior aspect of left upper chest and mid-sternal area Pain radiates to back and left arm. Neuro: Level of Consciousness is awake, alert, obeys commands, Oriented to person, place, time, situation. Cardiovascular: Reports chest pain, nausea. Respiratory: Reports pain with respiration Airway is patent Respiratory effort is even, unlabored. GI: Reports nausea. Derm: Skin is pink, warm \\T\\ dry. Historical: - Allergies: 15:16 PENICILLINS; ph - Home Meds: 15:16 Albuterol Inhl [Active]; Alprazolam Oral [Active]; Alprazolam Oral [Active]; Bentyl ph Oral [Active]; Creon oral [Active]; Hydromorphone Oral [Active]; - PMHx: 15:16 Chronic Pancreatitis; ph - PSHx: 15:16 Appendectomy; Cholecystectomy; hernia repair; pancreatic stent; ph - Immunization history:: Adult Immunizations unknown. - Infectious Disease History:: Denies. - Social history:: Smoking status: unknown. Screenin:18 [facility] ED Fall Risk Assessment (Adult) History of falling in the last 3 months, ph including since admission No falls in past 3 months (0 pts) Confusion or Disorientation No (0 pts) Intoxicated or Sedated No (0 pts) Impaired Gait No (0 pts) Mobility Assist Device Used No (0 pt) Altered Elimination No (0 pt) Score/Fall Risk Level 0 - 2 = Low Risk Oriented to surroundings, Maintained a safe environment, Hourly rounding (assess needs \\T\\ fall precautionary measures) done. Abuse screen: Denies threats or abuse. Denies injuries from another. Nutritional screening: No deficits noted. Tuberculosis screening: No symptoms or risk factors identified. Assessment: 16:10 General: SEE TRIAGE ASSESSMENT. ph 17:40 Reassessment: Patient appears in no apparent distress at this time. Patient and/or ph family updated on plan of care and expected duration. Pain level reassessed. Patient is alert, oriented x 3, equal unlabored respirations, skin warm/dry/pink. Lab at bedside for recolect. 19:53 Reassessment: Patient appears in no apparent distress at this time. Patient and/or bm8 family updated on plan of care and expected duration. Pain level reassessed. Patient is alert, oriented x 3, equal unlabored respirations, skin warm/dry/pink. General: Appears in no apparent distress. uncomfortable, Behavior is calm, cooperative, appropriate for age. Pain: Complains of pain in chest Pain radiates to back and left arm Pain currently is 10 out of 10 on a pain scale. Quality of pain is described as sharp, shooting, stabbing, Pain began this morning. Neuro: No deficits noted. Level of Consciousness is awake, alert, obeys commands, Oriented to person, place, time, situation, Appropriate for age. Cardiovascular: No deficits noted. Reports chest pain, Heart tones S1 S2 present Capillary refill < 3 seconds in bilateral fingers Patient's skin is warm and dry. Rhythm is sinus rhythm. Respiratory: Airway is patent Respiratory effort is even, unlabored, Respiratory pattern is regular, symmetrical, Breath sounds are clear bilaterally. GI: No signs and/or symptoms were reported involving the gastrointestinal system. : No signs and/or symptoms were reported regarding the genitourinary system. EENT: No signs and/or symptoms were reported regarding the EENT system. Derm: No signs and/or symptoms reported regarding the dermatologic system. Musculoskeletal: No signs and/or symptoms reported regarding the musculoskeletal system. 21:42 Reassessment: Patient appears in no apparent distress at this time. Patient and/or bm8 family updated on plan of care and expected duration. Pain level reassessed. Patient is alert, oriented x 3, equal unlabored respirations, skin warm/dry/pink. Pain: Complains of pain in chest Pain currently is 9 out of 10 on a pain scale. 21:42 General: Appears in no apparent distress. comfortable, Behavior is calm, cooperative, bm8 appropriate for age, pt is eating and watching tv on phone at this time, NAD resp even unlabored. 01/28 00:45 Reassessment: report given to ISAAK Mcadams. jb4 00:54 Reassessment: just received report from isaak aguilar. patient tearing himself off of the al5 monitor and throwing call light. patient yelling at this nurse and charge nurse for his dilaudid and xanax. have been trying to reiterate and educate the patient that we are not allowed to give medications if they are not ordered. patient yelling over charge nurse cursing stating "i have not gotten my f'ing pain medications" "give me my f'ing dilaudid and xanax." "don't worry about the monitor until i get my f'ing pain medicine." charge nurse calling hospitalist at this time. Vital Signs: 01/27 15:14 BP 127 / 67; Pulse 84; Resp 18; Temp 97.5; Pulse Ox 100% on R/A; Weight 61.23 kg; ph Height 6 ft. 1 in. ; 16:45 BP 136 / 98 RA; Pulse 87; Pulse Ox 100% on R/A; bc6 16:45 BP 131 / 94 LA; Pulse 93; Pulse Ox 100% on R/A; bc6 17:40 BP 129 / 81; Pulse 65; Resp 18; Pulse Ox 98% on R/A; ph 18:18 BP 129 / 81; Pulse 73; Resp 18; Pulse Ox 97% on R/A; ph 19:53 BP 137 / 91; Pulse 63; Resp 13; Temp 97.5; Pulse Ox 99% ; Pain 10/10; bm8 21:42 BP 102 / 70; Pulse 64; Resp 17; Temp 97.5; Pulse Ox 100% ; Pain 9/10; bm8 15:14 Body Mass Index 17.81 (61.23 kg, 185.42 cm) ph 19:53 Pain Scale: Adult bm8 21:42 Pain Scale: Adult bm8 [place] Coma Score: 19:53 Eye Response: spontaneous(4). Motor Response: obeys commands(6). Verbal Response: bm8 oriented(5). Total: 15. 21:42 Eye Response: spontaneous(4). Motor Response: obeys commands(6). Verbal Response: bm8 oriented(5). Total: 15. ED Course: 12:52 Notified Charge Nurse of patient yelling from room, and that once I entered the room ty and asked "Is everything okay?" Patient began yelling and cursing at me demanding "his medication." Patient was asked what is the medication, patient stated "I already told that other fucker about my medication, why do I need to tell you, just grab it." I attempted to explain that I am not a nurse and that I am a BUSINESS ANALYTICS DIRECTOR and that I am not allowed to pull medications. Patient became more irritated and ripped off his pulse ox stating "get me someone that can get me what I fucking need." Patient was asked to wait while I retrieved someone to speak with him, Patient was asked to please stop cussing and that a nurse will e coming to speak with him. CHARGE NURSE NOTIFIED. 15:14 Patient arrived in ED. ph 15:16 Triage completed. ph 15:16 Cheng Garay PA is PHCP. cp 15:16 Cheng Floyd MD is Attending Physician. cp 15:18 Arm band placed on Patient placed in an exam room, on a stretcher, on conveyor monitor, ph on pulse oximetry. 15:19 Patient has correct armband on for positive identification. Bed in low position. Call ph light in reach. Side rails up X2. Client placed on continuous cardiac and pulse oximetry monitoring. NIBP monitoring applied. hospital monitor on. Door closed. Noise minimized. 15:20 Patient maintains SpO2 saturation greater than 95% on room air. ph 15:42 Missed attempt(s): 22 gauge in right antecubital area. Bleeding controlled, band aid ph applied, catheter tip intact. Missed attempt(s): 22 gauge in right wrist. Bleeding controlled, band aid applied, catheter tip intact. 16:02 Initial lab(s) drawn, by me, sent to lab. Missed attempt(s): 20 gauge in left hand. iw Bleeding controlled, band aid applied, catheter tip intact. 16:29 XRAY Chest (1 view) In Process Unspecified. EDMS 16:30 Maricruz Rodriguez, RN is Primary Nurse. ph 16:57 Lab(s) recollected, by me, sent to lab. Inserted saline lock: 20 gauge in right bp antecubital area, using aseptic technique. Blood collected. Flushed with 10 mL NS. 17:25 CT Aorta for Dissection In Process Unspecified. EDMS 19:53 No provider procedures requiring assistance completed. bm8 20:31 Ángel Moore MD is Hospitalizing Provider. 21:42 Provided Education on: need for admission. bm8 21:42 Patient admitted, IV remains in place. bm8 01/28 07:00 Maintain EMS IV. Dressing intact. Good blood return noted. Site clean \\T\\ dry. Gauge \\T\\ db site: 20 G LAC. 14:40 1440 CM met with at the bedside in the ED exam room. Patient identified by ane name . Demographic sheet confirmed. Patient states he lives with his friend Kayode in a single story home. PCP is Dr. Geetha Acosta. No MPOA in place. Patient states he is afraid to go home before seeing the arresting gear operator. He states that prior to admission, he performs ADLs independently. No DME in the home, no home oxygen, and no HH at this time. expresses concern again about returning home without seeing the arresting gear operator and states he is still having chest pain on and off. Primary nurse Zoey entered patient room and asked if he could have his medications at that time. also states he is unsure how he is going to get home as he does not have transportation. He states his friend Kayode might be able to transport him home, but is unsure. CM team will continue to follow and coordinate care during this hospital stay. Administered Medications: 01/27 16:30 Drug: LORazepam IM 1 mg IM once Route: IM; Site: left deltoid; ph 17:03 Follow up: Response: No adverse reaction; Anxiety decreased ph 16:30 Drug: Aspirin PO Chewable Tablet 324 mg PO once; 81 mg tablets x 4 Route: PO; ph 17:03 Follow up: Response: No adverse reaction ph 17:03 Drug: morphine IVP or IV 4 mg IVP once over 4 mins Route: IVP; Infused Over: 4 mins; ph Site: right antecubital; 17:30 Follow up: Response: No adverse reaction; Pain is decreased ph 17:03 Drug: Ondansetron IVP 4 mg IVP once; over 2 minutes Route: IVP; Site: right antecubital;ph 18:19 Follow up: Response: No adverse reaction ph 18:51 Drug: morphine IVP or IV 4 mg IVP once over 4 mins Route: IVP; Infused Over: 4 mins; ph Site: left antecubital; 19:58 Follow up: Response: No adverse reaction bm8 20:05 Drug: Ketorolac IVP 15 mg IVP once Route: IVP; Site: left antecubital; bm8 20:27 Follow up: Response: No adverse reaction bm8 20:05 Not Given (Patient Refused): alum-mag hydroxide-simethsuspension (200 mg-200 mg-20 mg/5 bm8 ml) 30 ml PO once 20:37 Drug: fentaNYL (PF) IVP 50 mcg IVP once Route: IVP; Site: left antecubital; bm8 21:44 Follow up: Response: No adverse reaction bm8 Medication: 15:19 VIS not applicable for this client. ph Outcome: 20:31 Decision to Hospitalize by Provider. cp 21:42 Admitted to ER Hold. Please see [facility] for further documentation. bm8 21:42 Condition: stable 21:42 Instructed on the need for admit, Demonstrated understanding of instructions, 01/28 20:33 Patient left the ED. ha1 Signatures: Dispatcher [employer] EDAlexia Song RN RN iw Hall, Patricia, RN RN ph Page, Corey, PA PA cp Fazal Landaverde RN RN jb4 Thor Costa RN RN bp Ayala, Heidy, RN RN ha1 Zoey Beltran RN RN db Carowatson, Breana bc6 Braulio Mendoza Brad, RN RN bm8 Pema Porter RN RN al5 Amirah Chavarria RN RN ane Corrections: (The following items were deleted from the chart) 01/27 15:17 15:16 PSHx: Cholecystectomy; ph ph 01/28 01:06 00:54 Reassessment: just received report from isaak aguilar. patient tearing himself off of al5 the monitor and throwing call light. patient yelling at this nurse and charge nurse for his dilaudid and xanax. have been trying to reiterate and educate the patient that we are not allowed to give medications if they are not ordered. patient yelling over charge nurse cursing stating "i have not gotten my f'ing pain medications" "give me my f'ing dilaudid and xanax." "don't worry about the monitor until i get my f'ing pain medicine." charge nurse calling hospitalist at this time. al5
--- NOTE | 2024-01-28 20:32 | EDPHYS ---
Physician Documentation [facility] Name: Justice Joshi Age: 38 yrs Sex: Male : 1985 Arrival Date: 01/28/2024 Time: 15:12 Bed 15 Private MD: ED Physician Cheng Floyd HPI: 01/27 15:20 This 38 yrs old Male presents to ER via EMS with complaints of Chest Pain. cp 15:20 The patient or guardian reports chest pain that is located primarily in the anterior cp chest wall, left. 15:20 The pain radiates to the left arm, cp 15:20 Associated signs and symptoms: Pertinent negatives: abdominal pain, cough, diaphoresis, cp dizziness, headache, palpitations, shortness of breath, syncope, vomiting. 15:20 Duration: The patient or guardian reports a single episode, that is still ongoing, and cp worsening. 15:20 Severity of pain: in the emergency department the pain is actually worse. cp Historical: - Allergies: 15:16 PENICILLINS; ph - Home Meds: 15:16 Albuterol Inhl [Active]; Alprazolam Oral [Active]; Alprazolam Oral [Active]; Bentyl ph Oral [Active]; Creon oral [Active]; Hydromorphone Oral [Active]; - PMHx: 15:16 Chronic Pancreatitis; ph - PSHx: 15:16 Appendectomy; Cholecystectomy; hernia repair; pancreatic stent; ph - Immunization history:: Adult Immunizations unknown. - Infectious Disease History:: Denies. - Social history:: Smoking status: unknown. ROS: 15:25 Cardiovascular: Positive for chest pain, Negative for edema, palpitations, cp 15:25 Constitutional: Negative for body aches, chills, fever, poor PO intake, cp 15:25 Eyes: Negative for injury, pain, redness, and discharge, cp 15:25 ENT: Negative for drainage from ear(s), ear pain, sore throat, difficulty swallowing, difficulty handling secretions, 15:25 Respiratory: Negative for cough, wheezing, 15:25 Abdomen/GI: Negative for abdominal pain, vomiting, diarrhea, constipation, 15:25 Neuro: Negative for altered mental status, dizziness, headache, weakness, 15:25 All other systems are negative, Exam: 15:30 Constitutional: The patient appears in no acute distress, alert, awake, cp non-diaphoretic, non-toxic, well developed, well nourished, uncomfortable, 15:30 Head/Face: Normocephalic, atraumatic. cp 15:30 Eyes: Periorbital structures: appear normal, Conjunctiva: normal, no exudate, no cp injection, Sclera: no appreciated abnormality, Lids and lashes: appear normal, bilaterally, 15:30 ENT: External ear(s): are unremarkable, Nose: is normal, Mouth: is normal, Posterior cp pharynx: Airway: no evidence of obstruction, patent, 15:30 Neck: ROM/movement: is normal, is supple, without pain, no range of motions limitations, 15:30 Chest/axilla: Inspection: normal, 15:30 Cardiovascular: Rate: normal, Rhythm: regular, Edema: is not appreciated, JVD: is not appreciated, 15:30 Respiratory: the patient does not display signs of respiratory distress, Respirations: normal, no use of accessory muscles, no retractions, labored breathing, is not present, Breath sounds: are clear throughout, no decreased breath sounds, no stridor, no wheezing, 15:30 Abdomen/GI: Inspection: abdomen appears normal, Palpation: abdomen is soft and non-tender, in all quadrants, 15:30 Back: ROM is normal, 15:30 Neuro: Orientation: to person, place \T\ time. Mentation: is normal, Cerebellar function: is grossly normal, Motor: moves all fours, strength is normal, Sensation: is normal, 15:35 ECG was reviewed by the Attending Physician. cp 20:28 ECG was reviewed by the Attending Physician. cp Vital Signs: 15:14 BP 127 / 67; Pulse 84; Resp 18; Temp 97.5; Pulse Ox 100% on R/A; Weight 61.23 kg; ph Height 6 ft. 1 in. ; 16:45 BP 136 / 98 RA; Pulse 87; Pulse Ox 100% on R/A; bc6 16:45 BP 131 / 94 LA; Pulse 93; Pulse Ox 100% on R/A; bc6 17:40 BP 129 / 81; Pulse 65; Resp 18; Pulse Ox 98% on R/A; ph 18:18 BP 129 / 81; Pulse 73; Resp 18; Pulse Ox 97% on R/A; ph 19:53 BP 137 / 91; Pulse 63; Resp 13; Temp 97.5; Pulse Ox 99% ; Pain 10/10; bm8 21:42 BP 102 / 70; Pulse 64; Resp 17; Temp 97.5; Pulse Ox 100% ; Pain 9/10; bm8 15:14 Body Mass Index 17.81 (61.23 kg, 185.42 cm) ph 19:53 Pain Scale: Adult bm8 21:42 Pain Scale: Adult bm8 [place] Coma Score: 19:53 Eye Response: spontaneous(4). Motor Response: obeys commands(6). Verbal Response: bm8 oriented(5). Total: 15. 21:42 Eye Response: spontaneous(4). Motor Response: obeys commands(6). Verbal Response: bm8 oriented(5). Total: 15. MDM: 15:17 Medical Screening Exam initiated cp 19:00 Differential diagnosis: abnormal EKG, acute myocardial infarction, cholecystitis, cp Cholelithiasis peptic ulcer disease, pericarditis, pleurisy, pneumonia, pneumothorax, pulmonary embolus, thoracic aortic disection. 20:33 Data reviewed: vital signs, nurses notes, lab test result(s), EKG, radiologic studies, cp CT scan, plain films, and as a result, I will admit patient. 20:33 I considered the following discharge prescriptions or medication management in the emergency department Medications were administered in the Emergency Department. See MAR. Independent interpretation of the following test(s) in the Emergency Department EKG: See my EKG interpretation above. Counseling: I had a detailed discussion with the patient and/or guardian regarding the historical points, exam findings, and any diagnostic results supporting the discharge/admit diagnosis, lab results, radiology results. Response to treatment: the patient's symptoms have mildly improved after treatment. 01/27 15:19 Order name: Basic Metabolic Panel; Complete Time: 17:31 01/27 17:32 Interpretation: Normal except: CL 108. 01/27 15:19 Order name: CBC with Diff; Complete Time: 16:32 01/27 16:32 Interpretation: Normal except: RBC 4.29; HGB 11.8; HCT 35.2; RDW 16.1. 01/27 15:19 Order name: LFT's; Complete Time: 17:31 01/27 17:32 Interpretation: Normal except: AST 13; GLOB 4.5; A/G 0.8. cp / 15:19 Order name: Magnesium; Complete Time: 17:31 cp 10/ 15:19 Order name: NT PRO-BNP; Complete Time: 17:31 cp 10/ 15:19 Order name: PT-INR; Complete Time: 20:09 cp 01/27 15:19 Order name: Troponin HS; Complete Time: 17:31 cp 01/27 15:19 Order name: Lipase; Complete Time: 17:31 cp 01/27 17:32 Interpretation: Reviewed. cp 01/27 15:36 Order name: UDS; Complete Time: 22:56 cp 01/27 18:42 Order name: Troponin High Sensitivity; Complete Time: 20:09 cp 01/27 20:21 Order name: Urinalysis w/ reflexes; Complete Time: 22:56 cp 01/27 23:05 Order name: Urinalysis w/ reflexes EDMS 01/27 23:05 Order name: CBC with Automated Diff EDMS 01/27 23:05 Order name: CBC with Automated Diff EDMS 01/27 23:05 Order name: Comprehensive Metabolic Panel EDMS 01/27 23:05 Order name: Comprehensive Metabolic Panel EDMS 01/28 15:22 Order name: Phosphorus EDMS 01/28 15:22 Order name: Magnesium EDMS 01/27 15:19 Order name: XRAY Chest (1 view); Complete Time: 17:31 cp 01/27 17:33 Interpretation: Report review. cp 01/27 16:32 Order name: CT Aorta for Dissection; Complete Time: 17:31 cp 01/27 15:19 Order name: EKG; Complete Time: 15:19 cp 01/27 20:18 Order name: EKG; Complete Time: 20:18 cp 01/27 15:19 Order name: Cardiac monitoring; Complete Time: 15:41 cp 16 15:19 Order name: EKG - Nurse/Tech; Complete Time: 15:41 cp 01/27 15:19 Order name: IV Saline Lock; Complete Time: 18:21 cp 10/ 15:19 Order name: Labs collected and sent; Complete Time: 16:31 cp 01/27 15:19 Order name: O2 Per Protocol; Complete Time: 15:41 cp 01/27 15:19 Order name: O2 Sat Monitoring; Complete Time: 15:41 cp 01/27 16:16 Order name: Labs - recollect needed: recollect blue top; Complete Time: 17:03 rs6 01/27 16:33 Order name: Blood Pressure Recheck: bilateral upper extremity; Complete Time: 16:45 cp 01/27 17:07 Order name: Labs - recollect needed: re collect blue top; Complete Time: 17:39 rs6 01/27 20:18 Order name: EKG - Nurse/Tech; Complete Time: 20:27 cp 01/28 07:49 Order name: Labs - recollect needed: short purple; Complete Time: 11:20 bc6 EC:35 Rate is 91 beats/min. Rhythm is regular. UT interval is normal. QRS interval is normal. cp QT interval is normal. T waves are Inverted in leads aVL, aVR. Interpreted by me. Reviewed by me. 20:28 Rate is 69 beats/min. Rhythm is regular. UT interval is normal. QRS interval is normal. cp QT interval is normal. T waves are Inverted in leads aVL, aVR. Interpreted by me. Reviewed by me. Administered Medications: 16:30 Drug: LORazepam IM 1 mg IM once Route: IM; Site: left deltoid; ph 17:03 Follow up: Response: No adverse reaction; Anxiety decreased ph 16:30 Drug: Aspirin PO Chewable Tablet 324 mg PO once; 81 mg tablets x 4 Route: PO; ph 17:03 Follow up: Response: No adverse reaction ph 17:03 Drug: morphine IVP or IV 4 mg IVP once over 4 mins Route: IVP; Infused Over: 4 mins; ph Site: right antecubital; 17:30 Follow up: Response: No adverse reaction; Pain is decreased ph 17:03 Drug: Ondansetron IVP 4 mg IVP once; over 2 minutes Route: IVP; Site: right antecubital;ph 18:19 Follow up: Response: No adverse reaction ph 18:51 Drug: morphine IVP or IV 4 mg IVP once over 4 mins Route: IVP; Infused Over: 4 mins; ph Site: left antecubital; 19:58 Follow up: Response: No adverse reaction bm8 20:05 Drug: Ketorolac IVP 15 mg IVP once Route: IVP; Site: left antecubital; bm8 20:27 Follow up: Response: No adverse reaction bm8 20:05 Not Given (Patient Refused): alum-mag hydroxide-simethsuspension (200 mg-200 mg-20 mg/5 bm8 ml) 30 ml PO once 20:37 Drug: fentaNYL (PF) IVP 50 mcg IVP once Route: IVP; Site: left antecubital; bm8 21:44 Follow up: Response: No adverse reaction bm8 Disposition Summary: 01/28/24 20:31 Hospitalization Ordered Notes: Hospitalization Status: Observation cp Provider: Ángel Moore cp Condition: Stable cp Problem: new cp Symptoms: have improved cp Bed/Room Type: Standard cp Location: Telemetry/MedSurg (observation)(01/29/24 19:29) rv1 Room Assignment: 229(01/29/24 19:29) rv1 Diagnosis - Chest pain, unspecified cp Forms: - Medication Reconciliation Form cp - SBAR form cp - Leadership Thank You Letter cp Signatures: Dispatcher [employer] EDMS Maricruz Rodriguez RN RN ph Tanisha, SHADI Anand PA cp Jessica Beth RN RN lg3 Maria Ocasio rv1 Sharron Soares bc6 Dario Bates RN RN bm8 Joey Max rs6 Corrections: (The following items were deleted from the chart) 15:17 15:16 PSHx: Cholecystectomy; ph ph 15:19 15:19 BASIC METABOLIC PANEL+C.LAB.BRZ ordered. EDMS EDMS 15:19 15:19 CBC+H.LAB.BRZ ordered. EDMS EDMS 15:19 15:19 HEPATIC FUNCTION+C.LAB.BRZ ordered. EDMS EDMS 15:19 15:19 MAGNESIUM+C.LAB.BRZ ordered. EDMS EDMS 15:19 15:19 PROBNP+C.LAB.BRZ ordered. EDMS EDMS 15:19 15:19 PROTIME (+INR)+COAG.LAB.BRZ ordered. EDMS EDMS 15:19 15:19 Troponin High Sensitivity+C.LAB.BRZ ordered. EDMS EDMS 15:19 15:19 LIPASE+C.LAB.BRZ ordered. EDMS EDMS 18:16 18:16 Cardiovascular: Positive for chest pain, Negative for edema, palpitations, cp cp 21:23 20:31 Telemetry/MedSurg (observation) cp lg3 20:31 cp lg3 01/28 21:23 [facility] lg3 rv1 01/28:23 [facility]- lg3 rv1
[2024-01-28 20:53] LABS: Sqamous Epithelial <5 /HPF (None Seen); Urine Bacteria None Seen /HPF (<20); Urine Bilirubin NEGATIVE (Negative); Urine Blood Negative (Negative); Urine Clarity Clear (Clear); Urine Color Light-Yellow (Yellow); Urine Culture Reflex Order NOT NEEDED; Urine Glucose NEGATIVE (Negative); Urine Ketones NEGATIVE (Negative); Urine Microscopic Reflex YN ORDER UMIC; Urine Mucus Slight /HPF (None Seen); Urine Nitrite NEGATIVE (Negative); Urine Protein TRACE (Negative); Urine RBC <5 /HPF (None Seen); Urine Urobilinogen Normal (Normal); Urine WBC <5 /HPF (<5)
[2024-01-28 21:01] LABS: Specific Gravity > 1.030 (1.005-1.030)
[2024-01-28 21:02] LABS: Barbiturates NEGATIVE (NEGATIVE); Benzodiazepines POSITIVE (NEGATIVE); Cocaine NEGATIVE (NEGATIVE); METHAMPHETAM NEGATIVE (NEGATIVE); Methadone NEGATIVE (NEGATIVE); Opiates POSITIVE (NEGATIVE); Phencyclidine NEGATIVE (NEGATIVE); THC Cannibis POSITIVE (NEGATIVE)
[2024-01-28] MEDS ORDERED: ACETAMINOPHEN 325 MG TABLET PO PRN (23:01)
--- NOTE | 2024-01-29 00:08 | P.HP ---
Certification for Inpatient Patient admitted to: Observation With expected LOS: <2 Midnights Practitioner: I am a practitioner with admitting privileges, knowledge of patient current condition, hospital course, and medical plan of care. Services: Services provided to patient in accordance with Admission requirements found in Title 42 Section 412.3 of the Code of Federal Regulations Patient History Date of Service: 01/29/24 Reason for admission: CP History of Present Illness: 38 yrs old Male with past medical history of chronic pancreatitis status post pancreatic stent, asthma, anxiety, depression, substance abuse, came to ER with chest pain. Chest pain is retrosternal radiating to the back associated with mild shortness of breath, sharp, 6-10 out of 10 in severity at the time of interview. Denies any fever or chills. No cough. No sick contacts. No nausea vomiting or diarrhea. No previous history of CAD. Patient was assessed in the ER and admitted for further management chest pain to rule out ACS Allergies Penicillins Allergy (Verified 01/28/24 23:12) Hives - Past Medical/Surgical History Past Medical History: Reviewed- Non-Contributory -: Chronic pancreatitis Past Surgical History: Reviewed- Non-Contributory -: Pancreatic stent - Social History Smoking Status: Current every day smoker Review of Systems 10-point ROS is otherwise unremarkable Physical Examination - Vital Signs Temperature: 97.2 F Blood Pressure: 142/76 Pulse: 74 Respirations: 18 Pulse Ox (%): 94 - Physical Exam General: Alert, Oriented x3, Mild distress HEENT: Atraumatic, Normocephalic Neck: Supple, No Thyromegaly Respiratory: Clear to auscultation bilaterally, Normal air movement Cardiovascular: Normal pulses, Regular rate/rhythm, Normal S1 S2 Capillary refill: <2 Seconds Gastrointestinal: Soft and benign, W/out hepatosplenomegaly Musculoskeletal: No clubbing, No swelling Integumentary: No rashes, No breakdown Neurological: Normal speech, Normal strength at 5/5 x4 extr, Cranial nerves 3-12 intact, Normal reflexes 2+ Lymphatics: No axilla or inguinal lymphadenopathy - Studies Laboratory Data (last 24 hrs) 01/28/24 01/28/24 01/28/24 17:41 16:00 16:00 WBC 7.20 Hgb 11.8 L Hct 35.2 L Plt Count 398 PT 11.9 INR 1.06 Sodium 140 Potassium 3.6 BUN 9 Creatinine 0.86 Glucose 88 Magnesium 2.2 Total Bilirubin 0.6 AST 13 L ALT 29 Alkaline Phosphatase 69 Lipase 52 Assessment and Plan - Plan Chest pain to rule out ACS Will trend cardiac enzymes Will monitor telemetry Started on aspirin and statin EKG did not show any acute changes suggestive of ischemia Will get an echocardiogram Cardiology consult if troponin elevated Pain control Anxiety Continue home medications and titrate as needed Chronic pancreatitis Pain control Substance abuse Advised cessation Offered measures GI/DVT prophylaxis Advanced directive full code Discharge Plan: Home Plan to discharge in: 24 Hours - Advance Directives Does patient have a Living Will: No Does patient have a Durable POA for Healthcare: No - Code Status/Comfort Care Code Status: Full Code Time Spent Managing Pts Care (In Minutes): 48
[2024-01-29] MEDS: ALPRAZOLAM 0.25 MG TABLET PO ONE (00:58)
[2024-01-29] MEDS: HYDROMORPHONE HCL 0.5 MG/0.5 ML INJ IV PRN (01:03)
[2024-01-29] MEDS ORDERED: MORPHINE 2 MG/ML SYR ONE ×2 (04:06→08:01)
[2024-01-29] MEDS: MORPHINE 2 MG/ML SYR IV PRN (04:10)
[2024-01-29] MEDS ORDERED: HYDROMORPHONE HCL 0.5 MG/0.5 ML INJ ONE (05:08)
[2024-01-29 07:51] LABS: ALT/SGPT 26 U/L (16-61); Albumin 3.5 g/dL (3.4-5.0); Albumin/Globulin Ratio 0.8 (1.1-1.8); Alkaline Phosphatase 69 U/L (45-117); Anion Gap 8.8 mEq/L (5.0-15.0); BUN Blood Urea Nitrogen 13 mg/dL (7-18); Bicarbonate 28 mEq/L (21-32); Bilirubin Total 0.6 mg/dL (0.2-1.0); Globulin 4.6 g/dL (2.3-3.5); Glomerular Filtration Rate 111 ml/min (=/>90); Glucose Level 90 mg/dL (74-106); Potassium 3.8 mEq/L (3.5-5.1); Protein, Total 8.1 g/dL (6.4-8.2); Sodium Level 140 mEq/L (136-145)
[2024-01-29 07:54] LABS: AST/SGOT < 10 U/L (15-37)
[2024-01-29] MEDS ORDERED: ENOXAPARIN 40 MG/0.4 ML SQ ONE (08:01)
[2024-01-29] MEDS: ENOXAPARIN 40 MG/0.4 ML SQ SCH (08:11)
[2024-01-29] MEDS ORDERED: HYDROCODONE/APAP 5/325 MG TAB ONE (10:00)
[2024-01-29] MEDS: HYDROCODONE/APAP 5/325 MG TAB PO PRN (10:01)
[2024-01-29] MEDS ORDERED: LIPASE PO SCH (10:30)
[2024-01-29] MEDS ORDERED: PROTEASE PO SCH (10:30)
[2024-01-29] MEDS ORDERED: AMYLASE PO SCH (10:30)
[2024-01-29] MEDS ORDERED: HYDROMORPHONE ORAL 2 MG TAB ONE ×3 (10:37→19:49)
[2024-01-29] MEDS: HYDROMORPHONE ORAL 2 MG TAB PO PRN (10:43)
[2024-01-29] MEDS: DICYCLOMINE HCL 10 MG CAP PO SCH (11:00)
[2024-01-29] MEDS: PANTOPRAZOLE 40MG TABLET PO SCH (11:00)
[2024-01-29] MEDS: POTASSIUM 25 MEQ EFFERV TAB PO ONE (11:30)
[2024-01-29 11:46] LABS: Absolute Basophils 0.1 K/uL (0-0.5); Absolute Eosinophils 0.4 K/uL (0-0.5); Absolute Monocytes 0.4 K/uL (0.1-1.3); Absolute Neutrophil 2.6 K/uL (1.8-8.0); Basophils % 1.2 % (0-1.3); Eosinophils % 6.9 % (0-4.4); Hematocrit 34.4 % (39.6-49.0); Hemoglobin 11.4 g/dL (13.6-17.9); Lymphocytes % 36.6 % (15.3-44.8); MCH 27.3 pg (27.0-35.0); MCHC 33.1 g/dL (32.0-36.0); MCV 82.4 fL (80-100); MPV 7.9 fL (7.6-11.3); Monocytes % 7.6 % (3.3-12.3); Neutrophils % 47.7 % (41.7-73.7); Platelets 459 thou/uL (152-406); RBC Red Blood Cell Count 4.18 M/uL (4.33-5.43)
--- NOTE | 2024-01-29 11:50 | EKG ---
Test Date: 2024-01-29 Test Time: 03:53:38 Party Plan Dealer: JONO MEASUREMENT RESULTS: Intervals: Rate: 61 OR: 118 QRSD: 102 QT: 406 QTc: 408 [place]: P: 52 OR: 118 QRS: 84 T: 73 INTERPRETIVE STATEMENTS: Normal sinus rhythm Diffuse ST elevation, early repolarization, consider LVH Abnormal ECG Compared to ECG 01/28/2024 15:29:43 ST (T wave) deviation now present Sinus arrhythmia no longer present Atrial abnormality no longer present Left ventricular hypertrophy no longer present Electronically Signed On 01-29-24 11:49:45 CDT by William Woodall
--- NOTE | 2024-01-29 11:52 | EKG ---
Test Date: 2024-01-28 Test Time: 15:29:43 Rn Chemical Dependency: PH MEASUREMENT RESULTS: Intervals: Rate: 91 [place]: 114 QRSD: 92 QT: 342 QTc: 420 [place]: P: 82 MN: 114 QRS: 85 T: 77 INTERPRETIVE STATEMENTS: Sinus rhythm with marked sinus arrhythmia Biatrial enlargement Left ventricular hypertrophy Abnormal ECG Compared to ECG 01/23/2024 18:00:36 Atrial abnormality now present Short MN interval no longer present Electronically Signed On 01-29-24 11:50:19 CDT by William Woodall
[2024-01-29] MEDS ORDERED: POTASSIUM 25 MEQ EFFERV TAB ONE (13:50)
[2024-01-29] MEDS ORDERED: DICYCLOMINE HCL 10 MG CAP ONE (13:50)
[2024-01-29] MEDS ORDERED: ALPRAZOLAM 1 MG TABLET ONE (13:50)
[2024-01-29] MEDS ORDERED: PANTOPRAZOLE 40MG TABLET PO ONE (13:50)
[2024-01-29] MEDS: ALPRAZOLAM 1 MG TABLET PO SCH (13:58)
[2024-01-29 15:22] LABS: Magnesium 2.2 mg/dL (1.6-2.4); Phosphorus 3.8 mg/dL (2.5-4.9)
[2024-01-29] MEDS: FLU (Fluarix Triv) TS24-25(6MOS UP)/PF 45 MCG/0.5 ML Syringe IM ONE (16:00)
--- NOTE | 2024-01-29 19:17 | P.PN ---
Subjective Date of Service: 01/29/24 Chief Complaint: CP Patient is complaining of shortness of breath. He also reports fatigue and palpitation. Physical Examination - Vital Signs Temperature: 98 F Blood Pressure: 104/71 Pulse: 70 Respirations: 16 Pulse Ox (%): 100 Assessment And Plan - Plan Physical examination General: Alert and oriented x3, NAD, HEENT: Conjunctiva not pale, anicteric sclera Neck: Supple, no elevated JVD Heart: Heart sounds 1 and 2 normal, regular rhythm, normal rate, no pedal edema Lungs: Clear to auscultation bilaterally, adequate breath sounds bilaterally, no rhonchi or crackles. Abdomen: Soft, nondistended, nontender, normal bowel sounds. Extremities: No tenderness, no deformity Skin: Normal skin turgor, no rash, no nodules or ulcers. Neuro: No focal motor deficit. Normal speech. Psychiatry: Normal mood, no agitation. Assessment and plan Chest pain ACS ruled out. Patient is still complaining of shortness of breath. CT angiogram 1 week ago did not show any PE or infiltrate CT dissection done today negative for any aortic dissection EKG did not show any ischemic changes. Cardiology consult Continue telemetry Echocardiogram is pending Analgesics as needed. Anxiety Continue home medications and titrate as needed Chronic pancreatitis Resume home analgesics. Substance abuse Cessation advised DVT prophylaxis: Lovenox Advanced directive full code
[2024-01-30 02:47] VITALS: BMI 17.8
[2024-01-30 05:22] LABS: Absolute Basophils 0.1 K/uL (0-0.5); Absolute Eosinophils 0.3 K/uL (0-0.5); Absolute Lymphocytes (CBC) 1.8 K/uL (0.7-4.9); Absolute Monocytes 0.5 K/uL (0.1-1.3); Basophils % 1.2 % (0-1.3); Eosinophils % 4.7 % (0-4.4); Hematocrit 31.9 % (39.6-49.0); Hemoglobin 10.1 g/dL (13.6-17.9); Lymphocytes % 27.2 % (15.3-44.8); MCH 26.6 pg (27.0-35.0); MCHC 31.8 g/dL (32.0-36.0); MCV 83.7 fL (80-100); MPV 8.3 fL (7.6-11.3); Monocytes % 7.8 % (3.3-12.3); Neutrophils % 59.1 % (41.7-73.7); Platelets 387 thou/uL (152-406); RBC Red Blood Cell Count 3.81 M/uL (4.33-5.43); Red Cell Distribution Width 15.8 % (12.1-15.2)
[2024-01-30 05:36] LABS: Anion Gap 9.5 mEq/L (5.0-15.0); Potassium 3.5 mEq/L (3.5-5.1)
[2024-01-30] MEDS ORDERED: REGADENOSON 0.4 MG/5 ML SYR IV ONE (08:40)
[2024-01-30] MEDS ORDERED: DICYCLOMINE HCL 10 MG CAP PO SCH (09:00)
[2024-01-30] MEDS ORDERED: PANTOPRAZOLE 40MG TABLET PO SCH (09:00)
--- NOTE | 2024-01-30 10:26 | RAD REPORT ---
EXAM: Nuclear medicine cardiac perfusion examination with ejection fraction HISTORY: Chest pain [facility] Chest pain TECHNIQUE: Rest images: 10.3 mCi technetium 99m sestamibi Stress images: 29.6 mCi of technetium 99m sestamibi COMPARISON: None. FINDINGS: Tomographic images: Small area of diminished radiopharmaceutical consolidation is seen LV apex with s tress. No finding to suspect hibernating myocardium. Ejection fraction of 60%. EDV: 110 mL ESV: 44 mL LHR: 0.33 TID: 1.04 IMPRESSION: Mild stress-induced ischemia seen in the LV apex.
[2024-01-30] MEDS: POTASSIUM CL SA 10 MEQ TAB PO ONE (12:43)
--- NOTE | 2024-01-30 19:03 | P.PN ---
Subjective Date of Service: 01/30/24 Chief Complaint: CP Patient is complaining of generalized bodily pain and abdominal pain. Patient underwent nuclear stress test today 01/29 which is positive. Physical Examination - Vital Signs Temperature: 97.9 F Blood Pressure: 110/67 Pulse: 60 Respirations: 18 Pulse Ox (%): 100 - Studies Laboratory Data (last 24 hrs) 01/30/24 01/30/24 04:31 04:31 WBC 6.80 Hgb 10.1 L D Hct 31.9 L Plt Count 387 Sodium 142 Potassium 3.5 BUN 13 Creatinine 0.87 Glucose 116 H Assessment And Plan - Plan Physical examination General: Alert and oriented x3, NAD, HEENT: Conjunctiva not pale, anicteric sclera Neck: Supple, no elevated JVD Heart: Heart sounds 1 and 2 normal, regular rhythm, normal rate, no pedal edema Lungs: Clear to auscultation bilaterally, adequate breath sounds bilaterally, no rhonchi or crackles. Abdomen: Soft, nondistended, nontender, normal bowel sounds. Extremities: No tenderness, no deformity Skin: Normal skin turgor, no rash, no nodules or ulcers. Neuro: No focal motor deficit. Normal speech. Psychiatry: Normal mood, no agitation. Assessment and plan Chest pain ACS ruled out. Patient is still complaining of shortness of breath. CT angiogram 1 week ago did not show any PE or infiltrate CT dissection done today negative for any aortic dissection EKG did not show any ischemic changes. Cardiology consulted Nuclear stress test shows mild area of reversible ischemia in the apex. Cardiology Dr. Linn is considering cardiac catheterization on Friday. Continue telemetry Echocardiogram done and the results is pending Analgesics as needed. Anxiety Continue home medications and titrate as needed Chronic pancreatitis Continue home analgesics. Substance abuse Cessation advised DVT prophylaxis: Lovenox Advanced directive full code
[2024-01-31 06:43] LABS: Absolute Basophils 0.1 K/uL (0-0.5); Absolute Eosinophils 0.3 K/uL (0-0.5); Absolute Lymphocytes (CBC) 1.5 K/uL (0.7-4.9); Absolute Monocytes 0.7 K/uL (0.1-1.3); Absolute Neutrophil 2.5 K/uL (1.8-8.0); Basophils % 1.5 % (0-1.3); Eosinophils % 5.7 % (0-4.4); Hematocrit 32.3 % (39.6-49.0); Hemoglobin 10.5 g/dL (13.6-17.9); Lymphocytes % 30.4 % (15.3-44.8); MCHC 32.6 g/dL (32.0-36.0); MCV 82.7 fL (80-100); MPV 7.6 fL (7.6-11.3); Monocytes % 12.9 % (3.3-12.3); Neutrophils % 49.5 % (41.7-73.7); Nucleated Red Blood Cells % 0.1 % (0-0); Platelets 403 thou/uL (152-406)
--- NOTE | 2024-01-31 14:15 | P.PN ---
Subjective Date of Service: 01/31/24 Chief Complaint: CP Patient is complaining of generalized bodily pain and abdominal pain. Patient underwent nuclear stress test today 01/29 which is positive. Physical Examination - Vital Signs Temperature: 98.2 F Blood Pressure: 108/71 Pulse: 59 Respirations: 16 Pulse Ox (%): 90 Assessment And Plan - Plan Physical examination General: Alert and oriented x3, NAD, Neck: Supple, no elevated JVD Heart: Heart sounds 1 and 2 normal, regular rhythm, normal rate, no pedal edema Lungs: Clear to auscultation bilaterally, adequate breath sounds bilaterally. Abdomen: Soft, nondistended, nontender, normal bowel sounds. Extremities: No tenderness, no deformity Skin: Normal skin turgor, no rash. Neuro: No focal motor deficit. Normal speech. Psychiatry: Normal mood, no agitation. Assessment and plan Chest pain ACS ruled out. CT angiogram 1 week ago did not show any PE or infiltrate CT dissection done today negative for any aortic dissection EKG did not show any ischemic changes. Cardiology consulted Nuclear stress test shows mild area of reversible ischemia in the apex. Cardiology Dr. Linn is considering cardiac catheterization on Friday. Continue telemetry Echocardiogram done and the results is pending Analgesics as needed. Anxiety Continue home medications and titrate as needed Chronic pancreatitis Continue home analgesics. Substance abuse Cessation advised DVT prophylaxis: Lovenox Advanced directive full code
[2024-01-31 23:24] LABS: Anion Gap 6.2 mEq/L (5.0-15.0); Phosphorus 3.3 mg/dL (2.5-4.9); Potassium 4.2 mEq/L (3.5-5.1)
[2024-02-01] MEDS: ONDANSETRON 4 MG/2 ML VIAL IV PRN (04:13)
--- NOTE | 2024-02-01 13:18 | P.PN ---
Subjective Date of Service: 02/01/24 Chief Complaint: CP Patient reports abdominal pain with eating which is chronic. Physical Examination - Vital Signs Temperature: 97.8 F Blood Pressure: 102/60 Pulse: 74 Respirations: 16 Pulse Ox (%): 97 Assessment And Plan - Plan Physical examination General: Alert and oriented x3, NAD, Heart: Heart sounds 1 and 2 normal, regular rhythm, normal rate, no pedal edema Lungs: Clear to auscultation bilaterally, adequate breath sounds bilaterally. Abdomen: Soft, nondistended, nontender, normal bowel sounds. Extremities: No tenderness, no deformity Skin: Normal skin turgor, no rash. Neuro: No focal motor deficit. Normal speech. Psychiatry: Normal mood, no agitation. Assessment and plan Chest pain ACS ruled out. CT angiogram 1 week ago did not show any PE or infiltrate CT dissection negative for any aortic dissection EKG did not show any ischemic changes. Cardiology input appreciated. Nuclear stress test showed mild area of reversible ischemia in the apex. Cardiology Dr. Linn is planning cardiac catheterization tomorrow Continue telemetry Echocardiogram done and the results is pending Analgesics as needed. Anxiety Continue home medications and titrate as needed Chronic pancreatitis Continue home analgesics. Substance abuse Cessation advised DVT prophylaxis: Lovenox Advanced directive full code
--- NOTE | 2024-02-01 18:50 | CON ---
Date of Consultation: 01/30/2024 Reason For Consultation: Chest pain. History Of Present Illness: A 38-year-old male with no significant past medical history except chron ic pancreatitis comes in with substernal chest pain, pressure like, radiates to the shoulder, comes a nd goes. Had a stress test, which was positive for ischemia. At the time of evaluation was chest pa in free. Past Medical History: Chronic pancreatitis. Medications: Refer to reconciliation sheet for detailed list. Allergies: PENICILLIN. Family History: No premature coronary artery disease or cancer. Social History: He is an active smoker. Does not drink or use any drugs. Review of Systems: All systems reviewed and they are negative except as mentioned in the HPI. Physical Examination: Vital Signs: Reviewed. Head and Neck: Pupils are equal, reactive to light. Intact eye movements. No JVD. No cervical lym phadenopathy. Neck is supple. Thyroid is not enlarged. Lungs: Clear to auscultation bilaterally. No rhonchi, wheezing, or crackles. No accessory muscle u se. Heart: Regular rate and rhythm. No extra sounds. Abdomen: Soft, nontender. Bowel sounds positive. No organomegaly. No masses or hernia. No rigidi ty or rebound. Extremities: No edema, clubbing, or cyanosis. Intact pulses. Skin: No rash. No nodule. Neurologic: Alert, awake, oriented x3. No acute focal deficits appreciated. Investigations: Troponins are negative. BUN is 10, creatinine 1.02, and hemoglobin is 10.5. Assessment And Recommendations: 1.Chest pain with a stress test that showed LV apex stress-induced ischemia. Continue baby aspirin and plan for a coronary angiogram on Friday and obtain echocardiogram that is not already done. 2.Anemia, chronic and stable. 3.Chronic pancreatitis. No active abdominal pain. SR/MODL Voice ID: [id number] Report ID: [id number]
--- NOTE | 2024-02-02 07:23 | ECHO ---
HEIGHT: 6 ft 1 in WEIGHT: 134 lb 15 oz DATE OF STUDY: 01/30/[address]: Robin Esposito MD 2-DIMENSIONAL: YES M.MODE: YES DOPPLER: YES COLOR FLOW: YES TDS: PORTABLE: YES DEFINITY: BUBBLE STUDY: DIAGNOSIS: CHEST PAIN, SHORTNESS OF BREATH CARDIAC HISTORY: CATHERIZATION: NO SURGERY: NO PROSTHETIC VALVE: NO PACEMAKER: NO MEASUREMENTS (cm) DIASTOLIC (NORMALS) SYSTOLIC (NORMALS) IVSd 1.0 (0.6-1.2) LA Diam 2.4 (1.9-4.0) LVEF 60-65% LVIDd 4.8 (3.5-5.7) LVIDs 3.1 (2.0-3.5) %FS 35% LVPWd 1.1 (0.6-1.2) Ao Diam 3.1 (2.0-3.7) 2 DIMENSIONAL ASSESSMENT: RIGHT ATRIUM: NORMAL LEFT ATRIUM: NORMAL RIGHT VENTRICLE: NORAML LEFT VENTRICLE: NORMAL TRICUSPID VALVE: MILD TRICUSPID REGURGITATION MITRAL VALVE: MILD MITRAL REGURGITATION PULMONIC VALVE: NORMAL AORTIC VALVE: NORMAL PERICARDIAL EFFUSION: NONE AORTIC ROOT: NORMAL LEFT VENTRICULAR WALL MOTION: NORMAL DOPPLER/COLOR FLOW: SEE BELOW COMMENTS: 1. NORMAL LEFT VENTRICULAR EJECTION FRACTION 60-65% WITH NORMAL WALL MOTION 2. NORMAL DIASTOLIC FUNCTION 3. MILD MITRAL REGURGITATION 4. MILD TRICUSPID REGURGITATION TECHNOLOGIST: WILLA CARTY
--- NOTE | 2024-02-02 08:28 | TREADPHA ---
DX: CHEST PAIN Date of Study: 01/30/2024 Ht: 6' 1 " Wt: 134 lb 15 oz Consulting Physician: CHRISTINE MEDICATIONS: TYLENOL, XANAX, BENTYL, LOVENOX, DILAUDID, MORPHINE, ZOFRAN, PROTONIX HISTORY: 38 YEAR OLD MALE WITH COMPLAINTS OF CHEST PAIN. HISTORY OF ANXIETY, CHRONIC PAIN, PANCREATITIS, ASTHMA, NON SMOKER, NON DRINKER. PHYSICIAL EXAMINATION: RESTING B.P.: 119/84 RESTING H.R.: 52 RESTING EKG: NORMAL SINUS RHYTHM WITH LEFT VENTRICULAR HYPERTROPHY PROTOCOL: PHARMACOLOGIC EXERCISE TIME: 3:30 B.P. AT [place] STRESS: 96/57 IMPRESSION: LEXISCAN INJECTED FOLLOWED BY CARDIOLITE PER PROTOCOL. SEE NUCLEAR MEDICINE REPOT. NO SUPRAVENTRICULAR TACHYCARDIA, VENTRICULAR TACHYCARDIA, PREMATURE ATRIAL COMPLEXES, PREMATURE VENTRICULAR COMPLEXES. PATIENT REPORTS NO CHANGE IN PAIN. NO ELECTROCARDIOGRAM CHANGES OF ISCHEMIA WITH LEXISCAN.
[2024-02-02 10:35] LABS: Absolute Eosinophils 0.2 K/uL (0-0.5); Absolute Lymphocytes (CBC) 1.4 K/uL (0.7-4.9); Absolute Monocytes 0.8 K/uL (0.1-1.3); Absolute Neutrophil 4.2 K/uL (1.8-8.0); Basophils % 0.6 % (0-1.3); Eosinophils % 2.6 % (0-4.4); Hematocrit 35.8 % (39.6-49.0); Hemoglobin 11.5 g/dL (13.6-17.9); Lymphocytes % 21.5 % (15.3-44.8); MCH 26.5 pg (27.0-35.0); MCV 82.8 fL (80-100); MPV 7.9 fL (7.6-11.3); Monocytes % 12.4 % (3.3-12.3); Neutrophils % 62.9 % (41.7-73.7); Platelets 399 thou/uL (152-406); RBC Red Blood Cell Count 4.32 M/uL (4.33-5.43); Red Cell Distribution Width 15.8 % (12.1-15.2)
[2024-02-02 10:48] LABS: Anion Gap 8.2 mEq/L (5.0-15.0); Potassium 4.2 mEq/L (3.5-5.1)
[2024-02-02] MEDS ORDERED: HEPA 1000U/500MLS 2,000 UNIT/1,000 ML BAG IV ONE (11:10)
[2024-02-02] MEDS ORDERED: ATROPINE SULF 1 MG/10 ML SYR IV ONE (11:10)
[2024-02-02] MEDS ORDERED: HEPARIN 10,000 UNIT/10 ML VIAL IV ONE (11:10)
[2024-02-02] MEDS ORDERED: LIDOCAINE 1% 20 ML MDV ONE (11:10)
[2024-02-02] MEDS ORDERED: HEPARIN 5000 UNIT/ML 1 ML VIAL ONE (11:11)
[2024-02-02] MEDS ORDERED: MIDAZOLAM HCL 2 MG/2 ML INJ ONE (11:22)
[2024-02-02] MEDS ORDERED: FENTANYL CITR 100 MCG/2 ML ONE (11:22)
[2024-02-02] MEDS: NA CHLORIDE 0.9% 500 ML ONE (11:40)
--- NOTE | 2024-02-02 12:37 | P.PN ---
Subjective Date of Service: 02/02/24 Chief Complaint: CP Subjective: No new changes, No C/O voiced, Tolerating diet, Ambulating, Improving Review of Systems 10-point ROS is otherwise unremarkable Physical Examination - Vital Signs Temperature: 99.2 F Blood Pressure: 99/56 Pulse: 65 Respirations: 15 Pulse Ox (%): 96 - Physical Exam General: Alert, In no apparent distress HEENT: Atraumatic, PERRLA, EOMI Neck: Supple, JVD not distended Respiratory: Clear to auscultation bilaterally, Normal air movement Cardiovascular: Regular rate/rhythm, Normal S1 S2 Gastrointestinal: Normal bowel sounds, No tenderness Musculoskeletal: No tenderness Integumentary: No rashes Neurological: Normal speech, Normal tone, Normal affect Lymphatics: No axilla or inguinal lymphadenopathy - Studies Medications List Reviewed: Yes Assessment And Plan - Current Problems (Diagnosis) (1) Chest pain Current Visit: Yes Status: Acute Plan: patient had an abnormal stress test that was followed by coronary angiogram that shown normal coronaries No further cardiac work up needed.
--- NOTE | 2024-02-02 14:24 | OP ---
Date of Procedure: 02/02/2024 Surgeon: William Woodall Procedure Performed: Selective coronary angiogram. Indication For Procedure: Unstable angina. Abnormal stress test. Complications: None. Estimated Blood Loss: Less than 50 cc. Access: Right radial, closed by TR band. Sedation Time: 20 minutes sedation is given. Description Of Procedure: After risks, and benefits, and alternatives were explained to the patient, patient agreed to proceed with procedure and signed informed consent. The patient was brought back to the cathead worker, prepped and draped in a sterile fashion. Time-out was performed. Sedation was admi nistered. Next, right radial access was obtained. The [place] 4.0 catheter was advanced over a J-wire to the aortic root. Selective angiogram was done. Same catheter was pulled back over a J-wire. Sh eath was removed. TR band was applied. Hemostasis was achieved and the patient was moved back to [facility] in stable condition. Findings: 1.Left main normal. 2.LAD normal. 3.Left circ normal. 4.RCA normal. Assessment And Plan: Normal coronaries. We will continue medical management. ILIANA/CHIVO Voice ID: [id number] Report ID: [id number]
--- NOTE | 2024-02-02 15:09 | P.DS ---
Admission Date: 01/30/24 Discharge Date: 02/02/24 Disposition: ROUTINE DISCHARGE Discharge Condition: FAIR Reason for Admission: CP Brief History of Present Illness: 38 yrs old Male with past medical history of chronic pancreatitis status post pancreatic stent, asthma, anxiety, depression, substance abuse, came to ER with chest pain. No cough. No sick contacts. No nausea vomiting or diarrhea. No previous history of CAD. Patient was assessed in the ER, initial troponin negative, chest x-ray and CT dissection done was unremarkable. Patient was hospitalized for further management chest pain and to rule out ACS. Hospital Course: Chest pain Troponin trended negative ACS ruled out. CT angiogram 1 week ago did not show any PE or infiltrate CT dissection negative for any aortic dissection EKG did not show any ischemic changes. Cardiology team evaluated, and nuclear stress test was done. Nuclear stress test showed mild area of reversible ischemia in the apex. Cardiac catheterization was done which did not show any significant coronary artery disease Telemetry showed possible brief junctional rhythm. Case discussed with cardiology who plans to follow-up with the patient in the office for further evaluation. Echocardiogram done was unremarkable, normal EF, no diastolic dysfunction. Anxiety Continued home medications. Chronic pancreatitis Continue home analgesics. Substance abuse Cessation advised Vital Signs/Physical Exam: Temp Pulse Resp BP Pulse Ox 99.6 F 79 14 129/67 96 02/02/24 14:58 02/02/24 14:58 02/02/24 14:58 02/02/24 14:58 02/02/24 12:37 General: Alert, In no apparent distress, Oriented x3 HEENT: Mucous membr. moist/pink Neck: Supple, JVD not distended Respiratory: Clear to auscultation bilaterally, Normal air movement Cardiovascular: No edema, Regular rate/rhythm, Normal S1 S2 Gastrointestinal: Normal bowel sounds, Soft and benign, Non-distended, Tenderness (Mild tenderness) Musculoskeletal: No swelling Integumentary: No rashes, No cyanosis Neurological: Normal strength at 5/5 x4 extr Laboratory Data at Discharge: WBC 6.60 thou/uL (4.3-10.9) 02/02/24 10:23 Hgb 11.5 g/dL (13.6-17.9) L 02/02/24 10:23 Hct 35.8 % (39.6-49.0) L 02/02/24 10:23 Plt Count 399 thou/uL (152-406) 02/02/24 10:23 PT 11.9 SECONDS (9.4-12.5) 01/28/24 17:41 INR 1.06 01/28/24 17:41 Sodium 134 mEq/L (136-145) L 02/02/24 10:23 Potassium 4.2 mEq/L (3.5-5.1) 02/02/24 10:23 BUN 10 mg/dL (7-18) 02/02/24 10:23 Creatinine 0.81 mg/dL (0.70-1.30) 02/02/24 10:23 Glucose 98 mg/dL (74-106) 02/02/24 10:23 Phosphorus 3.3 mg/dL (2.5-4.9) 01/31/24 22:56 Magnesium 2.0 mg/dL (1.6-2.4) 01/31/24 22:56 Total Bilirubin 0.6 mg/dL (0.2-1.0) 01/29/24 07:20 AST < 10 U/L (15-37) L 01/29/24 07:20 ALT 26 U/L (16-61) 01/29/24 07:20 Alkaline Phosphatase 69 U/L (45-117) 01/29/24 07:20 Lipase 52 U/L (13-75) 01/28/24 16:00 Home Medications: Albuterol Inhaler [Ventolin Inhaler*] 2 inhaler .ROUTE DIRECTED PRN 01/29/24 Alprazolam [Xanax] 2 mg PO TID 01/29/24 Dicyclomine [Bentyl*] 10 mg PO DAILY 01/29/24 Hydromorphone HCl [Dilaudid] 2 mg PO Q4HR PRN 01/29/24 Lipase/Protease/Amylase [Creon Dr 24,000 Unit Capsule] 3 tab PO DIRECTED 01/29/24 Pantoprazole Sodium [Protonix] 40 mg PO DAILY 01/29/24 Hydromorphone [Dilaudid] 2 mg PO Q6HP PRN #15 tab 02/02/24 New Medications: Hydromorphone [Dilaudid] 2 mg PO Q6HP PRN #15 tab PRN Reason: Pain Diet: Regular Activity: Fall precautions Followup: William Woodall MD [ACTIVE - CAN ADMIT] - 1 Week (For evaluation for arrhythmia. call for an apointment) Geetha Acosta MD [Primary Care Provider] - 1-2 Weeks Time spent managing pt's care (in minutes): 36
[2024-02-02 15:36] VITALS: O2SAT 99
[2024-02-02 16:08] VITALS: BP 117/73; TEMP 99.9
[2024-02-02] MEDS ORDERED: NITROGLYCERIN 0.4 MG/TAB SL PRN (16:13)
[2024-02-02] MEDS ORDERED: ACETAMINOPHEN 325 MG TABLET PO PRN (16:13)
[2024-02-02] MEDS ORDERED: NA CHLORIDE 0.9% 1,000 ML IV SCH (17:00)
[2024-02-02] MEDS ORDERED: ENSURE ENLIVE 237 ML CAN PO SCH (21:00)
[2024-02-03] MEDS ORDERED: PANTOPRAZOLE 40MG TABLET PO SCH (07:30)
--- NOTE | 2024-02-03 12:52 | EKG ---
Test Date: 2024-02-02 Test Time: 14:48:46 Line Appliance Assembler: CHANEL MEASUREMENT RESULTS: Intervals: Rate: 71 [place]: 118 QRSD: 90 QT: 350 QTc: 380 [place]: P: 34 [place]: 118 QRS: 75 T: 59 INTERPRETIVE STATEMENTS: Normal sinus rhythm Voltage criteria for left ventricular hypertrophy Abnormal ECG Compared to ECG 01/31/2024 19:38:29 Short [place] interval no longer present ST (T wave) deviation no longer present Early repolarization no longer present Electronically Signed On 02-03-24 12:49:34 CDT by William Woodall
--- NOTE | 2024-02-03 12:58 | EKG ---
Test Date: 2024-01-31 Test Time: 19:38:29 Production Support Analyst: LINDA MEASUREMENT RESULTS: Intervals: Rate: 68 ME: 82 QRSD: 90 QT: 362 QTc: 384 [place]: P: 2 ME: 82 QRS: 68 T: 61 INTERPRETIVE STATEMENTS: Sinus rhythm with short ME Voltage criteria for left ventricular hypertrophy ST elevation, probably due to early repolarization Abnormal ECG Compared to ECG 01/29/2024 03:55:11 Short ME interval now present Left ventricular hypertrophy now present ST (T wave) deviation now present Sinus bradycardia no longer present Electronically Signed On 02-03-24 12:51:50 CDT by William Woodall
--- NOTE | 2024-02-03 13:12 | EKG ---
Test Date: 2024-01-29 Test Time: 03:55:11 Manager Drug Safety: JONO MEASUREMENT RESULTS: Intervals: Rate: 54 [place]: 126 QRSD: 100 QT: 410 QTc: 388 [place]: P: 35 [place]: 126 QRS: 83 T: 74 INTERPRETIVE STATEMENTS: Sinus bradycardia Early repolarization Otherwise normal ECG Compared to ECG 01/29/2024 03:53:38 Sinus rhythm no longer present ST (T wave) deviation no longer present Electronically Signed On 02-03-24 12:56:51 CDT by William Woodall
== END 2024-02-02 16:45 | disposition home or self-care (01) | DRG 287 ==
LOC: ER 15:12 → ERHOLD 23:01 → 2ND 01-29 19:49 → OBSVTOIN 01-30 10:59
PROVIDERS: ADMIT Family Medicine; ATTEND Internal Medicine
PROC: 4A023N7 Measurement of Cardiac Sampling and Pressure, Left Heart, Percutaneous Approach (ICD-10-PCS; principal; 2024-02-02)
PROC: B2111ZZ Fluoroscopy of Multiple Coronary Arteries using Low Osmolar Contrast (ICD-10-PCS; 2024-02-02)
DX: R07.9 Chest pain, unspecified (principal); K86.1 Other chronic pancreatitis; F41.9 Anxiety disorder, unspecified; D64.9 Anemia, unspecified; F19.10 Other psychoactive substance abuse, uncomplicated; F17.200 Nicotine dependence, unspecified, uncomplicated; Z88.0 Allergy status to penicillin; Z90.49 Acquired absence of other specified parts of digestive tract; Z79.899 Other long term (current) drug therapy
CPT/HCPCS: 36415; 71045; 71275; 74175; 76937; 78452; 80048; 80053; 80076; 80307; 81001; 83690; 83735; 83880; 84100; 84484; 85025; 85610; 93005; 93017; 93306; 93454; 94760; 96372; 99285; A9500; C1893; G0378; J0461; J1170; J1644; J1650; J2001; J2250; J2270; J2405; J2785; J3010; J7040; Q9966; Q9967

== ENCOUNTER 2024-02-09 16:42 | Emergency (ER) | payer BC ==
[2024-02-09] MEDS ORDERED: MORPHINE 4 MG/ML SYR ONE ×2 (17:55→19:47)
[2024-02-09] MEDS ORDERED: NA CHLORIDE 0.9% 1,000 ML ONE (17:56)
[2024-02-09] MEDS ORDERED: ONDANSETRON 4 MG/2 ML VIAL ONE (17:56)
[2024-02-09 17:57] LABS: Absolute Basophils 0.1 K/uL (0-0.5); Absolute Eosinophils 0.3 K/uL (0-0.5); Absolute Lymphocytes (CBC) 2.5 K/uL (0.7-4.9); Absolute Monocytes 0.6 K/uL (0.1-1.3); Absolute Neutrophil 3.7 K/uL (1.8-8.0); Basophils % 1.4 % (0-1.3); Eosinophils % 3.8 % (0-4.4); Hematocrit 35.1 % (39.6-49.0); Hemoglobin 11.5 g/dL (13.6-17.9); Lymphocytes % 34.3 % (15.3-44.8); MCH 26.9 pg (27.0-35.0); MCHC 32.8 g/dL (32.0-36.0); MCV 81.9 fL (80-100); MPV 7.7 fL (7.6-11.3); Neutrophils % 51.5 % (41.7-73.7); Platelets 457 thou/uL (152-406); RBC Red Blood Cell Count 4.29 M/uL (4.33-5.43); Red Cell Distribution Width 15.7 % (12.1-15.2)
[2024-02-09 18:05] LABS: Calcium Oxalate Crystals- Ur Few /HPF (None Seen); Specific Gravity > 1.030 (1.005-1.030); Sqamous Epithelial None Seen /HPF (None Seen); Urine Bacteria None Seen /HPF (<20); Urine Bilirubin NEGATIVE (Negative); Urine Blood Negative (Negative); Urine Clarity Turbid (Clear); Urine Color Yellow (Yellow); Urine Culture Reflex Order NOT NEEDED; Urine Glucose TRACE (Negative); Urine Ketones TRACE (Negative); Urine Microscopic Reflex YN ORDER UMIC; Urine Mucus 2+ /HPF (None Seen); Urine Nitrite NEGATIVE (Negative); Urine Protein TRACE (Negative); Urine RBC <5 /HPF (None Seen); Urine Urobilinogen 1+ (Normal); Urine WBC None Seen /HPF (<5)
[2024-02-09 18:15] LABS: Albumin 3.4 g/dL (3.4-5.0); Albumin/Globulin Ratio 0.8 (1.1-1.8); Anion Gap 7.5 mEq/L (5.0-15.0); Bilirubin Total 0.4 mg/dL (0.2-1.0); Globulin 4.5 g/dL (2.3-3.5); Potassium 3.5 mEq/L (3.5-5.1); Protein, Total 7.9 g/dL (6.4-8.2)
--- NOTE | 2024-02-09 20:28 | RAD REPORT ---
EXAMINATION: CT ABDOMEN AND PELVIS WITH CONTRAST CLINICAL INDICATION: Abdominal pain TECHNIQUE: CT abdomen and pelvis was performed, after the administration of 100 cc Isovue-300.. Sagit dolores and coronal reconstructions were obtained. One or more of the following dose reduction techniques were used: Automated exposure control, adjustment of the mA and kV according to patient si ze, and iterative reconstruction. Unless otherwise specified, incidental findings do not require dedicated imaging follow-up. [id number]. Oral contrast was not given which limits evaluation of bowel and appendix. COMPARISON: January 28, 2024 FINDINGS: Cholecystectomy. Fluid within nondilated small bowel Liver, spleen, pancreas, adrenals and kidneys appear unremarkable No evidence of diverticulitis. Mild to moderate narrowing celiac artery. : IMPRESSION: Fluid within nondilated small bowel may indicate an enteritis
--- NOTE | 2024-02-09 20:31 | EDPHYS ---
Physician Documentation [facility] Name: Justice Joshi Age: 38 yrs Sex: Male : 1985 Arrival Date: 02/09/2024 Time: 16:42 Bed 8 Private MD: ED Physician Royce De La Torre HPI: 02/08 18:27 This 38 yrs old Male presents to ER via EMS with complaints of Abdominal Pain. 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 Patient states he has had significant vomiting and pain. Patient had a pancreatic stent placed last month at his GI at [facility]. He then moved to this area and he states that the stent dislodged and he passed it in his bowel movement. He does not have a local GI physician. He denies fever, headache, chest pain, shortness of breath, back pain, diarrhea, rash, syncope, or any other signs or symptoms on ROS at this time.. Historical: - Allergies: 17:05 PENICILLINS; cm10 - PMHx: 17:05 Chronic Pancreatitis; Asthma; Anxiety; cm10 - PSHx: 17:05 Appendectomy; Cholecystectomy; hernia repair; pancreatic stent; cm10 - Immunization history:: Adult Immunizations up to date. - Infectious Disease History:: Denies. - Social history:: Smoking status: Patient denies any tobacco usage or history of. ROS: 18:59 Constitutional: Negative for fever, chills, and weight loss, Eyes: Negative for injury, sp3 pain, redness, and discharge, ENT: Negative for injury, pain, and discharge, Neck: Negative for injury, pain, and swelling, Cardiovascular: Negative for chest pain, palpitations, and edema, Respiratory: Negative for shortness of breath, cough, wheezing, and pleuritic chest pain, Back: Negative for injury and pain, MS/Extremity: Negative for injury and deformity, Skin: Negative for injury, rash, and discoloration, Neuro: Negative for headache, weakness, numbness, tingling, and seizure, Psych: Negative for depression, anxiety, suicide ideation, homicidal ideation, and hallucinations, Allergy/Immunology: Negative for hives, rash, and allergies, Endocrine: Negative for neck swelling, polydipsia, polyuria, polyphagia, and marked weight changes, Hematologic/Lymphatic: Negative for swollen nodes, abnormal bleeding, and unusual bruising, 18:59 All other systems are negative, Exam: 18:59 Constitutional: This is a well developed, well nourished patient who is awake, alert, sp3 and in no acute distress. Head/Face: Normocephalic, atraumatic. Eyes: Pupils equal round and reactive to light, extra-ocular motions intact. Lids and lashes normal. Conjunctiva and sclera are non-icteric and not injected. Cornea within normal limits. Periorbital areas with no swelling, redness, or edema. Neck: Trachea midline, no thyromegaly or masses palpated, and no cervical lymphadenopathy. Supple, full range of motion without nuchal rigidity, or vertebral point tenderness. No Meningismus. Chest/axilla: Normal chest wall appearance and motion. Nontender with no deformity. No lesions are appreciated. Cardiovascular: Regular rate and rhythm with a normal S1 and S2. No gallops, murmurs, or rubs. Normal PMI, no JVD. No pulse deficits. Respiratory: Lungs have equal breath sounds bilaterally, clear to auscultation and percussion. No rales, rhonchi or wheezes noted. No increased work of breathing, no retractions or nasal flaring. Back: No spinal tenderness. No costovertebral tenderness. Full range of motion. Skin: Warm, dry with normal turgor. Normal color with no rashes, no lesions, and no evidence of cellulitis. 18:59 Abdomen/GI: Epigastric pain to palpation mild in nature without peritoneal signs, rebound or guarding., Vital Signs: 17:04 BP 146 / 87; Pulse 72; Resp 16; Temp 99(O); Pulse Ox 98% on R/A; Weight 58.97 kg; cm10 Height 6 ft. 0 in. ; Pain 10/10; 19:06 BP 156 / 102; Pulse 53; Resp 16 S; Pulse Ox 99% on R/A; kc6 19:30 BP 153 / 103; Pulse 58; Resp 18; Pulse Ox 100% on R/A; al5 20:30 BP 158 / 100; Pulse 62; Resp 18; Pulse Ox 99% ; al5 17:04 Body Mass Index 17.63 (58.97 kg, 182.88 cm) cm10 17:04 Pain Scale: Adult cm10 MDM: 16:46 Medical Screening Exam initiated sp3 19:00 Data reviewed: vital signs, nurses notes, lab test result(s), radiologic studies. ED sp3 course: 38-year-old male with chronic pancreatitis now with recurrent epigastric abdominal pain. Lipase is 93 and remainder of labs demonstrate no significant abnormality. Pain medicine has been given and CT scan is pending. Differential diagnosis includes gastritis, pancreatitis, other intestinal pathology, among others. If workup negative we will safely discharge patient home and he can follow-up with his GI specialist.. 20:16 ED course: Patient signed out to me by previous physician, in brief arrives today for ec2 evaluation of abdominal pain with history of chronic pancreatitis. Lab work is remarkable for reassuring CBC, metabolic profile that is nonactionable, lipase that is minimally elevated, urine that is noninfectious appearing. Lactic acid within normal ranges. Plan is to follow-up CT imaging and reassess. . 20:30 ED course: CT abdomen pelvis shows enteritis, no evidence of pancreas pathology. Will ec2 discharge home. Return precautions given. . 20:36 ED course: Patient expressed some hesitancy regarding no emergent process identified, I ec2 reassured him, instructed him to follow-up outpatient for GI as there is no operative intervention or emergent process with lab work or hemodynamics.. 02/08 17:13 Order name: CBC with Diff; Complete Time: 17:59 sp3 02/08 17:13 Order name: CMP; Complete Time: 18:22 sp3 02/08 17:13 Order name: Lipase; Complete Time: 18:22 sp3 02/08 17:13 Order name: Urinalysis w/ reflexes; Complete Time: 18:22 sp3 02/08 17:13 Order name: Lactate w/ 2H reflex if indic.; Complete Time: 18:22 sp3 02/08 17:13 Order name: CT Abd/Pelvis - IV Contrast Only; Complete Time: 20:29 sp3 02/08 17:13 Order name: IV Saline Lock; Complete Time: 17:52 sp3 02/08 17:13 Order name: Labs collected and sent; Complete Time: 17:52 sp3 Administered Medications: 18:26 Drug: Ondansetron IVP 4 mg IVP once; over 2 minutes Route: IVP; Site: right forearm; kc6 19:06 Follow up: Response: No adverse reaction; Nausea is decreased 6 18:26 Drug: morphine IVP or IV 4 mg IVP once over 4 mins Route: IVP; Infused Over: 4 mins; kc6 Site: right forearm; 19:07 Follow up: Response: No adverse reaction; Pain is decreased; RASS: Alert and Calm (0) [facility] 18:26 Drug: NS 0.9% IV 1000 ml IV at 1 bolus Per protocol; to be given as a bolus over 60 kc6 minutes Route: IV; Rate: 1 bolus; Site: right forearm; 19:50 Follow up: Response: No adverse reaction; IV Status: Completed infusion; IV Intake: al5 1000ml 19:50 Drug: morphine IVP or IV 4 mg IVP once over 4 mins Route: IVP; Infused Over: 4 mins; al5 Site: right forearm; 20:43 Follow up: Response: No adverse reaction; Pain is unchanged, physician notified; Pain al5 is unchanged, physician aware. Disposition Summary: 02/09/24 20:30 Discharge Ordered Notes: Location: Home ec2 Condition: Stable ec2 Diagnosis - Other viral enteritis ec2 Followup: ec2 - With: Private Physician - When: - Reason: Re-evaluation by your physician Discharge Instructions: - Discharge Summary Sheet ec2 - Viral Gastroenteritis, Adult, [id number] ec2 Forms: - Medication Reconciliation Form ec2 - Antibiotic Education ec2 - Prescription Opioid Use ec2 - Patient Portal Instructions ec2 - Leadership Thank You Letter ec2 Prescriptions: - Zofran 4 mg Oral Tablet - take 1 tablet ORAL route every 12 hours As needed; 20 tablet; Refills: 0, ec2 Product Selection Permitted - dicyclomine 10 mg Oral capsule - take 1 capsule ORAL route 3 times per day; 15 capsule; Refills: 0, Product ec2 Selection Permitted Signatures: Dispatcher [employer] Lang Monge MD MD sp3 Maribel Gama RN RN kc6 Alba Florez RN RN cm10 Royce De La Torre MD MD ec2 Pema Porter RN RN al5 Corrections: (The following items were deleted from the chart) 17:14 17:14 CBC+H.LAB.BRZ ordered. EDMS EDMS 17:14 17:14 COMPREHENSIVE METABOLIC PANEL+C.LAB.BRZ ordered. EDMS EDMS 17:14 17:14 LIPASE+C.LAB.BRZ ordered. EDMS EDMS 17:14 17:14 Urinalysis+U.LAB.BRZ ordered. EDMS EDMS 17: 17:14 LACTATE+C.LAB.BRZ ordered. EDMS EDMS
--- NOTE | 2024-02-09 20:31 | ER ---
Nurse's Notes [facility] Name: Justice Joshi Age: 38 yrs Sex: Male : 1985 Arrival Date: 02/09/2024 Time: 16:42 Bed 8 Private MD: Diagnosis: Other viral enteritis Presentation: 02/08 17:04 Chief complaint: Patient states: Has history of chronic pancreatitis and has had pain cm10 since Friday to his LUQ that has progressively gotten worse with vomiting. Coronavirus screen: Client denies travel out of the [place] in the last 14 days. Ebola Screen: Patient denies travel to an Ebola-affected area in the 21 days before illness onset. No symptoms or risks identified at this time. Initial Sepsis Screen: Does the patient meet any 2 criteria? No. Patient's initial sepsis screen is negative. Does the patient have a suspected source of infection? No. Patient's initial sepsis screen is negative. Risk Assessment: Do you want to hurt yourself or someone else? Patient reports no desire to harm self or others. Onset of symptoms was February 04, 2024. 17:04 Acuity: JOE 3 cm10 17:04 Method Of Arrival: EMS: [facility] cm10 Triage Assessment: 17:06 General: Appears in no apparent distress. uncomfortable, Behavior is calm, cooperative. cm10 Pain: Complains of pain in left upper quadrant Pain does not radiate. Pain currently is 10 out of 10 on a pain scale. Quality of pain is described as sharp, shooting, stabbing, Pain began 02/03. Neuro: No deficits noted. Level of Consciousness is awake, alert, obeys commands, Oriented to person, place, time, situation, Appropriate for age. Respiratory: No deficits noted. Airway is patent Respiratory effort is even, unlabored, Respiratory pattern is regular, symmetrical. Historical: - Allergies: 17:05 PENICILLINS; cm10 - PMHx: 17:05 Chronic Pancreatitis; Asthma; Anxiety; cm10 - PSHx: 17:05 Appendectomy; Cholecystectomy; hernia repair; pancreatic stent; cm10 - Immunization history:: Adult Immunizations up to date. - Infectious Disease History:: Denies. - Social history:: Smoking status: Patient denies any tobacco usage or history of. Screenin:25 [facility] ED Fall Risk Assessment (Adult) History of falling in the last 3 months, kc6 including since admission No falls in past 3 months (0 pts) Confusion or Disorientation No (0 pts) Intoxicated or Sedated No (0 pts) Impaired Gait No (0 pts) Mobility Assist Device Used No (0 pt) Altered Elimination No (0 pt) Score/Fall Risk Level 0 - 2 = Low Risk Oriented to surroundings. Abuse screen: Denies threats or abuse. Denies injuries from another. Nutritional screening: No deficits noted. Tuberculosis screening: No symptoms or risk factors identified. Assessment: 18:26 General: Appears in no apparent distress. comfortable, well groomed, well developed, kc6 Behavior is calm, cooperative, appropriate for age. Pain: Complains of pain in abdomen and left upper quadrant. Neuro: Level of Consciousness is awake, alert, obeys commands, Oriented to person, place, time, situation, Appropriate for age. Cardiovascular: Capillary refill < 3 seconds. Respiratory: Airway is patent Trachea midline Respiratory effort is even, unlabored, Respiratory pattern is regular, symmetrical. GI: Abdomen is flat, non-distended, Bowel sounds present X 4 quads. Abd is soft Abdomen is tender to palpation in left upper quadrant Reports upper abdominal pain, diarrhea, nausea, vomiting. : No signs and/or symptoms were reported regarding the genitourinary system. EENT: No signs and/or symptoms were reported regarding the EENT system. Derm: No signs and/or symptoms reported regarding the dermatologic system. Skin is intact, is healthy with good turgor, Skin is pink, warm \T\ dry. Musculoskeletal: No signs and/or symptoms reported regarding the musculoskeletal system. Circulation, motion, and sensation intact. Capillary refill < 3 seconds, Range of motion: intact in all extremities. 19:06 Reassessment: Patient appears in no apparent distress at this time. No changes from kc6 previously documented assessment. Patient and/or family updated on plan of care and expected duration. Pain level reassessed. Patient is alert, oriented x 3, equal unlabored respirations, skin warm/dry/pink. 19:20 General: Appears in no apparent distress. uncomfortable, Behavior is calm, cooperative. al5 Pain: Complains of pain in left upper quadrant Pain currently is 10 out of 10 on a pain scale. Neuro: Level of Consciousness is awake, alert, obeys commands, Oriented to person, place, time, situation. Cardiovascular: Capillary refill < 3 seconds Patient's skin is warm and dry. Respiratory: Airway is patent Respiratory effort is even, unlabored, Respiratory pattern is regular, symmetrical. GI: Abdomen is flat, non-distended, Reports upper abdominal pain. : No signs and/or symptoms were reported regarding the genitourinary system. EENT: No signs and/or symptoms were reported regarding the EENT system. Derm: Skin is intact, is healthy with good turgor, Skin is pink, warm \T\ dry. normal. Musculoskeletal: No signs and/or symptoms reported regarding the musculoskeletal system. 20:42 Reassessment: Patient appears in no apparent distress at this time. No changes from al5 previously documented assessment. Patient and/or family updated on plan of care and expected duration. Pain level reassessed. Patient is alert, oriented x 3, equal unlabored respirations, skin warm/dry/pink. patient being discharged home. Vital Signs: 17:04 BP 146 / 87; Pulse 72; Resp 16; Temp 99(O); Pulse Ox 98% on R/A; Weight 58.97 kg; cm10 Height 6 ft. 0 in. ; Pain 10/10; 19:06 BP 156 / 102; Pulse 53; Resp 16 S; Pulse Ox 99% on R/A; kc6 19:30 BP 153 / 103; Pulse 58; Resp 18; Pulse Ox 100% on R/A; al5 20:30 BP 158 / 100; Pulse 62; Resp 18; Pulse Ox 99% ; al5 17:04 Body Mass Index 17.63 (58.97 kg, 182.88 cm) cm10 17:04 Pain Scale: Adult cm10 ED Course: 16:44 Patient arrived in ED. im 16:46 Lang Manrique MD is Attending Physician. sp3 17:05 Triage completed. cm10 17:06 Arm band placed on right wrist. Patient placed in waiting room. cm10 17:51 Initial lab(s) drawn, by me, sent to lab. Urine collected: clean catch specimen. cc6 Inserted saline lock: 22 gauge in left antecubital area, using aseptic technique. Blood collected. Flushed with 10 mL NS. 17:52 CBC with Diff Sent. cc6 17:52 CMP Sent. cc6 17:52 Lipase Sent. cc6 17:52 Urinalysis w/ reflexes Sent. cc6 17:57 Maribel Gama, RN is Primary Nurse. kc6 18:23 Initial lab(s) drawn, by me, sent to lab. Inserted saline lock: 22 gauge in right mb9 forearm, using aseptic technique. Flushed with 10 mL NS. 18:25 Patient has correct armband on for positive identification. Bed in low position. Call kc6 light in reach. Side rails up X 1. Pulse ox on. NIBP on. Door closed. Noise minimized. Lights dimmed. Warm blanket given. Pillow given. 18:25 Missed attempt(s): 20 gauge in right forearm. Missed attempt(s): 22 gauge in right kc6 forearm. Patient maintains SpO2 saturation greater than 95% on room air. 18:53 Patient requests pain medication. kc6 19:07 Report given to Isatu Rodney RN. kc6 20:02 CT Abd/Pelvis - IV Contrast Only In Process Unspecified. EDMS 20:09 Attending Physician role handed off by Lang Manrique MD ec2 20:09 Royce De La Torre MD is Attending Physician. ec2 20:44 Provided Education on: discharge follow up, medications. al5 20:44 No provider procedures requiring assistance completed. IV discontinued, intact, al5 bleeding controlled, No redness/swelling at site. Pressure dressing applied. Administered Medications: 18:26 Drug: Ondansetron IVP 4 mg IVP once; over 2 minutes Route: IVP; Site: right forearm; [facility] 19:06 Follow up: Response: No adverse reaction; Nausea is decreased [facility] 18:26 Drug: morphine IVP or IV 4 mg IVP once over 4 mins Route: IVP; Infused Over: 4 mins; [facility] Site: right forearm; 19:07 Follow up: Response: No adverse reaction; Pain is decreased; RASS: Alert and Calm (0) [facility] 18:26 Drug: NS 0.9% IV 1000 ml IV at 1 bolus Per protocol; to be given as a bolus over 60 kc6 minutes Route: IV; Rate: 1 bolus; Site: right forearm; 19:50 Follow up: Response: No adverse reaction; IV Status: Completed infusion; IV Intake: al5 1000ml 19:50 Drug: morphine IVP or IV 4 mg IVP once over 4 mins Route: IVP; Infused Over: 4 mins; al5 Site: right forearm; 20:43 Follow up: Response: No adverse reaction; Pain is unchanged, physician notified; Pain al5 is unchanged, physician aware. Medication: 20:44 VIS not applicable for this client. al5 Intake: 19:50 IV: 1000ml; Total: 1000ml. al5 Outcome: 20:30 Discharge ordered by MD. ec2 20:45 Discharged to home ambulatory, al5 20:45 Condition: good 20:45 Discharge instructions given to patient, Instructed on discharge instructions, follow up and referral plans. medication usage, Demonstrated understanding of instructions, follow-up care, medications, Prescriptions given X 2, 20:45 Patient left the ED. al5 Signatures: Dispatcher [employer] EDLang Forrester MD MD sp3 Maribel Gama, RN RN kc6 Rasheeda Coto RN RN mb9 Raquel Baca Clarissa RN RN cm10 Royce De La Torre MD MD ec2 Pema Porter RN RN al5 Carmen Jacobson cc6 Corrections: (The following items were deleted from the chart) 17:22 17:04 Method Of Arrival: Ambulatory cm10 cm10
[2024-02-09 20:50] VITALS: TEMP 99
[2024-02-09 20:53] VITALS: BP 158/100; O2SAT 99
== END 2024-02-09 20:45 | disposition home or self-care (01) ==
LOC: ER 16:42
DX: A08.39 Other viral enteritis (principal)
CPT/HCPCS: 85025; 81001; 36415; 83605; 83690; 80053; 74177; J2405; J7030; 96361; 96374; 96375; 99284

== ENCOUNTER 2024-02-11 14:53 | Emergency (ER) | payer BC ==
[2024-02-11] MEDS ORDERED: ONDANSETRON 4 MG/2 ML VIAL ONE ×3 (16:45→19:35)
[2024-02-11] MEDS ORDERED: MORPHINE 4 MG/ML SYR ONE (16:45)
[2024-02-11] MEDS ORDERED: NA CHLORIDE 0.9% 1,000 ML ONE (16:45)
[2024-02-11 17:07] LABS: Absolute Basophils 0.1 K/uL (0-0.5); Absolute Eosinophils 0.1 K/uL (0-0.5); Absolute Lymphocytes (CBC) 2.6 K/uL (0.7-4.9); Absolute Monocytes 0.7 K/uL (0.1-1.3); Eosinophils % 1.9 % (0-4.4); Hemoglobin 10.4 g/dL (13.6-17.9); Lymphocytes % 35.2 % (15.3-44.8); MCH 26.6 pg (27.0-35.0); MCHC 32.7 g/dL (32.0-36.0); MCV 81.5 fL (80-100); MPV 7.6 fL (7.6-11.3); Neutrophils % 52.9 % (41.7-73.7); Platelets 455 thou/uL (152-406); RBC Red Blood Cell Count 3.92 M/uL (4.33-5.43); Red Cell Distribution Width 15.5 % (12.1-15.2)
[2024-02-11 17:17] LABS: Calcium Oxalate Crystals- Ur Few /HPF (None Seen); Specific Gravity > 1.030 (1.005-1.030); Sqamous Epithelial <5 /HPF (None Seen); Urine Bacteria None Seen /HPF (<20); Urine Bilirubin NEGATIVE (Negative); Urine Blood Negative (Negative); Urine Clarity Extremely Turbid (Clear); Urine Color Yellow (Yellow); Urine Culture Reflex Order NOT NEEDED; Urine Glucose NEGATIVE (Negative); Urine Ketones NEGATIVE (Negative); Urine Microscopic Reflex YN ORDER UMIC; Urine Mucus 4+ /HPF (None Seen); Urine Nitrite NEGATIVE (Negative); Urine Protein 1+ (Negative); Urine Urobilinogen 1+ (Normal); Urine WBC <5 /HPF (<5)
[2024-02-11 17:24] LABS: Albumin 3.4 g/dL (3.4-5.0); Albumin/Globulin Ratio 0.8 (1.1-1.8); Anion Gap 5.1 mEq/L (5.0-15.0); Bilirubin Total 0.4 mg/dL (0.2-1.0); Globulin 4.2 g/dL (2.3-3.5); Potassium 3.1 mEq/L (3.5-5.1); Protein, Total 7.6 g/dL (6.4-8.2)
--- NOTE | 2024-02-11 17:48 | RAD REPORT ---
EXAMINATION: CT ABDOMEN AND PELVIS WITH CONTRAST CLINICAL INDICATION: ABD PAIN TECHNIQUE: CT abdomen and pelvis was performed, after the administration of IV contrast, as per [facility] protocol. Axial, sagittal and coronal reconstructions were obtained. One or more of the following dose reduction techniques were used: Automated exposure control, adjustment of the mA and k V according to patient size, and iterative reconstruction. Unless otherwise specified, incidental findings do not require dedicated imaging follow-up. COMPARISON: 02/01/2024, 01/20/2024 FINDINGS: LOWER CHEST: The visualized lung bases are clear. LIVER: Normal in size and contour. No focal lesion. Grossly unremarkable gallbladder. SPLEEN: Normal size. No focal lesion. PANCREAS: No mass, ductal dilation, or kaylan-pancreatic fluid. ADRENALS: Normal; no mass. KIDNEYS: Normal size and contour. No hydronephrosis. GASTROINTESTINAL TRACT: No evidence of free air, significant intra-abdominal free fluid, bowel obstru ction or abscess. Nonspecific small bowel distention with fluid. APPENDIX: Normal appendix. LYMPH NODES: No lymphadenopathy. MUSCULOSKELETAL: No acute or suspicious osseous abnormality. ADDITIONAL FINDINGS: None. IMPRESSION: Fluid distended small intestine is present pattern. Consider enteritis..
[2024-02-11] MEDS ORDERED: FENTANYL CITR 100 MCG/2 ML ONE (18:50)
[2024-02-11] MEDS ORDERED: POTASSIUM CL SA 10 MEQ TAB PO ONE (19:35)
[2024-02-11] MEDS ORDERED: HYDROMORPHONE HCL 0.5 MG/0.5 ML INJ ONE (19:35)
--- NOTE | 2024-02-11 19:43 | EDPHYS ---
Physician Documentation [facility] Name: Justice Joshi Age: 38 yrs Sex: Male : 1985 Arrival Date: 02/11/2024 Time: 14:53 Bed 13 Private MD: ED Physician Christianne Shaw HPI: 02/10 19:33 This 38 yrs old Male presents to ER via Ambulatory with complaints of Abdominal Pain, ci Vomiting, Back Pain. 19:33 Is a 38-year-old male with PMH anxiety, asthma, chronic pancreatitis s/p pancreatic ci stent who presents to the ED with chief complaint of persistent abdominal pain that began 3 days ago. Patient was seen in the ED yesterday, discharged with Zofran and Phenergan. Has been unable to keep any fluids or medications down. Patient called his GI specialist Dr. Amador was told to come to the ER for admission. Historical: - Allergies: 15:17 PENICILLINS; cm10 - PMHx: 15:17 Anxiety; Asthma; Chronic Pancreatitis; cm10 - PSHx: 15:17 Appendectomy; Cholecystectomy; hernia repair; pancreatic stent; cm10 - Immunization history:: Adult Immunizations up to date. - Infectious Disease History:: Denies. - Social history:: Smoking status: Patient denies any tobacco usage or history of. ROS: 19:33 Constitutional: Positive for fever, ci 19:33 Cardiovascular: Negative for chest pain, edema, palpitations, 19:33 Respiratory: Negative for cough, shortness of breath, wheezing, 19:33 Abdomen/GI: Positive for abdominal pain, nausea, vomiting, and diarrhea, 19:43 Neuro: Negative for headache, weakness, numbness, tingling, and seizure, ci Exam: 19:33 Constitutional: This is a well developed, well nourished patient who is awake, alert, ci and in no acute distress. Head/Face: Normocephalic, atraumatic. Eyes: Pupils equal round and reactive to light, extra-ocular motions intact. Lids and lashes normal. Conjunctiva and sclera are non-icteric and not injected. Cornea within normal limits. Periorbital areas with no swelling, redness, or edema. ENT: Nares patent. No nasal discharge, no septal abnormalities noted. Tympanic membranes are normal and external auditory canals are clear. Oropharynx with no redness, swelling, or masses, exudates, or evidence of obstruction, uvula midline. Mucous membranes moist. Neck: Trachea midline, no thyromegaly or masses palpated, and no cervical lymphadenopathy. Supple, full range of motion without nuchal rigidity, or vertebral point tenderness. No Meningismus. Chest/axilla: Normal chest wall appearance and motion. Nontender with no deformity. No lesions are appreciated. Cardiovascular: Regular rate and rhythm with a normal S1 and S2. No gallops, murmurs, or rubs. Normal PMI, no JVD. No pulse deficits. Respiratory: Lungs have equal breath sounds bilaterally, clear to auscultation and percussion. No rales, rhonchi or wheezes noted. No increased work of breathing, no retractions or nasal flaring. 19:33 Abdomen/GI: Inspection: abdomen appears normal, Bowel sounds: Palpation: soft, moderate abdominal tenderness, Abdomen soft, nondistended with tenderness palpation to the left upper quadrant. No rebound tenderness or rigidity., Vital Signs: 15:14 BP 168 / 103; Pulse 72; Resp 18; Temp 99.1(O); Pulse Ox 97% on R/A; Weight 12.7 kg; cm10 Height 6 ft. 0 in. ; Pain 10/10; 17:00 BP 160 / 98; Pulse 57; Resp 16; Pulse Ox 100% ; me1 18:00 BP 148 / 102; Pulse 53; Resp 16; Pulse Ox 99% ; me1 19:00 BP 124 / 75; Pulse 60; Resp 16; Pulse Ox 100% ; me1 19:38 Weight 58.97 kg; kmf 19:49 Pain 5/10; me1 20:00 BP 139 / 101; Pulse 57; Resp 17; Pulse Ox 98% ; me1 21:00 BP 130 / 97; Pulse 55; Resp 16; Temp 98.4; Pulse Ox 100% ; me1 15:14 Body Mass Index 3.80 (58.97 kg, 182.88 cm) cm10 15:14 Pain Scale: Adult cm10 19:49 Pain Scale: Adult me1 MDM: 15:20 Medical Screening Exam initiated ci 19:33 Differential diagnosis: Nonspecific abd pain, gastritis, pancreatitis, diverticulitis, ci viral gastroenteritis, gastroenteritis. Data reviewed: vital signs, nurses notes, old medical records, Was seen in the ED on 02/09/2024 for similar complaints. lab test result(s), amylase and lipase, electrolytes, potassium. ED course: Patient presents with acute on chronic abdominal pain, history of chronic pancreatitis, lipase 105, CT abdomen/pelvis with no SBO, no evidence of acute pancreatitis but does have some enteritis. Will start on antibiotics. Patient was given multiple doses of pain medicine with no improvement. GI unavailable at our facility, patient's pondman is at [facility], patient requesting to be transferred to [facility]. Transfer initiated.. 19:49 ED course: Discussed with GI at [facility] Dr.Babatunde Carmona who accepted consult.ci 02/10 15:42 Order name: CBC with Diff; Complete Time: 17:55 ci 02/10 15:42 Order name: CMP; Complete Time: 17:55 ci 02/10 17:57 Interpretation: Abnormal: K 3.1; Hypokalemic . ci 02/10 15:42 Order name: Lipase; Complete Time: 17:55 ci 02/10 17:57 Interpretation: Abnormal: LIP 105; Slightly elevated. ci 02/10 15:42 Order name: Urinalysis w/ reflexes; Complete Time: 17:55 ci 02/10 15:42 Order name: CT Abd/Pelvis - IV Contrast Only; Complete Time: 17:55 ci 02/10 17:58 Interpretation: Abnormal: Enteritis. ci 02/10 15:42 Order name: IV Saline Lock; Complete Time: 16:54 ci 02/10 15:42 Order name: Labs collected and sent; Complete Time: 16:54 ci Administered Medications: 16:55 Drug: Ondansetron IVP 4 mg IVP once; over 2 minutes Route: IVP; Site: right wrist; me1 17:08 Follow up: Response: No adverse reaction; Nausea is decreased me1 16:55 Drug: morphine IVP or IV 4 mg IVP once over 4 mins Route: IVP; Infused Over: 4 mins; me1 Site: right wrist; 17:08 Follow up: Response: No adverse reaction; Pain is unchanged, physician notified me1 16:55 Drug: NS 0.9% IV 1000 ml IV at 1 bolus Per protocol; to be given as a bolus over 60 me1 minutes Route: IV; Rate: 1 bolus; Site: right wrist; 19:48 Follow up: Response: No adverse reaction; IV Status: Completed infusion; IV Intake: me1 1000ml 18:53 Drug: fentaNYL (PF) IVP 50 mcg IVP once Route: IVP; Site: right forearm; me1 19:32 Follow up: Response: No adverse reaction; Pain is unchanged, physician notified me1 19:22 Not Given (Duplicate Order): morphineor iv 4 mg IVP once over 4 mins ci 19:40 Drug: Ondansetron IVP 4 mg IVP once; over 2 minutes Route: IVP; Site: right forearm; me1 19:49 Follow up: Response: No adverse reaction; Nausea is decreased me1 19:41 Drug: Potassium Chloride PO 40 mEq PO once Route: PO; me1 19:48 Follow up: Response: No adverse reaction me1 19:41 Drug: HYDROmorphone IVP 0.5 mg IVP once Route: IVP; Site: right forearm; me1 19:49 Follow up: Pain 5/10 Adult; Response: No adverse reaction; Pain is decreased me1 21:26 Drug: HYDROmorphone IVP 2 mg IVP once Route: IVP; Site: right forearm; me1 21:29 Follow up: Response: No adverse reaction; Pain is decreased me1 Disposition Summary: 02/11/24 19:43 Transfer Ordered Notes: Transfer Location: [facility] System ci Reason: Higher level of care ci Condition: Stable ci Problem: an acute exacerbation ci Symptoms: are unchanged ci Accepting Physician: Unknown(02/11/24 21:29) me1 Diagnosis - Other chronic pancreatitis ci - Hypokalemia ci - Abdominal pain, unspecified ci Forms: - Medication Reconciliation Form ci - SBAR form ci Signatures: Dispatcher [employer] EDMS Jessica Beth RN RN lg3 Alba Florez RN RN cm10 Kady Hampton RN RN me1 Christianne Shaw ci Corrections: (The following items were deleted from the chart) 15:42 15:42 CBC+H.LAB.BRZ ordered. EDMS EDMS 15:42 15:42 COMPREHENSIVE METABOLIC PANEL+C.LAB.BRZ ordered. EDMS EDMS 15:42 15:42 LIPASE+C.LAB.BRZ ordered. EDMS EDMS 15:42 15:42 Urinalysis+U.LAB.BRZ ordered. EDMS EDMS 21:29 19:43 Unknown ci me1
--- NOTE | 2024-02-11 19:43 | ER ---
Nurse's Notes [facility] Name: Justice Joshi Age: 38 yrs Sex: Male : 1985 Arrival Date: 02/11/2024 Time: 14:53 Bed 13 Private MD: Diagnosis: Other chronic pancreatitis;Hypokalemia;Abdominal pain, unspecified Presentation: 02/10 15:14 Chief complaint: Patient states: Was seen here Friday for upper abdominal pain and was cm10 given prescriptions and has not been able to keep medications down and continues to have abdominal pain. Pt states that he spoke with his GI doctor (Dr. Morgan) and was told that he needed to be admitted to the hospital. Coronavirus screen: Client denies travel out of the [place] in the last 14 days. Ebola Screen: Patient denies travel to an Ebola-affected area in the 21 days before illness onset. No symptoms or risks identified at this time. Initial Sepsis Screen: Does the patient meet any 2 criteria? No. Patient's initial sepsis screen is negative. Does the patient have a suspected source of infection? No. Patient's initial sepsis screen is negative. Risk Assessment: Do you want to hurt yourself or someone else? Patient reports no desire to harm self or others. Onset of symptoms was February 11, 2024. 15:14 Method Of Arrival: Ambulatory cm10 15:14 Acuity: JOE 3 cm10 Triage Assessment: 15:17 General: Appears in no apparent distress. comfortable, Behavior is calm, cooperative. cm10 Neuro: No deficits noted. Level of Consciousness is awake, alert, obeys commands, Oriented to person, place, time, situation, Appropriate for age. Respiratory: No deficits noted. Airway is patent Respiratory effort is even, unlabored, Respiratory pattern is regular, symmetrical. GI: Reports upper abdominal pain, nausea, vomiting. Historical: - Allergies: 15:17 PENICILLINS; cm10 - PMHx: 15:17 Anxiety; Asthma; Chronic Pancreatitis; cm10 - PSHx: 15:17 Appendectomy; Cholecystectomy; hernia repair; pancreatic stent; cm10 - Immunization history:: Adult Immunizations up to date. - Infectious Disease History:: Denies. - Social history:: Smoking status: Patient denies any tobacco usage or history of. Screenin:45 [facility] ED Fall Risk Assessment (Adult) History of falling in the last 3 months, me1 including since admission No falls in past 3 months (0 pts) Confusion or Disorientation No (0 pts) Intoxicated or Sedated No (0 pts) Impaired Gait No (0 pts) Mobility Assist Device Used No (0 pt) Altered Elimination No (0 pt) Score/Fall Risk Level 0 - 2 = Low Risk Maintained a safe environment, Provided non-skid footwear, Hourly rounding (assess needs \T\ fall precautionary measures) done. Abuse screen: Denies threats or abuse. Nutritional screening: No deficits noted. Tuberculosis screening: No symptoms or risk factors identified. Assessment: 16:45 General: Appears uncomfortable, ill, well groomed, well developed, well nourished, me1 Behavior is calm, cooperative, appropriate for age, Reports Was seen here Friday for upper abdominal pain and was given prescriptions and has not been able to keep medications down and continues to have abdominal pain. Pt states that he spoke with his GI doctor (Dr. Morgan) and was told that he needed to be admitted to the hospital. HX chronic pancreatitis. Pain: Complains of pain in right upper quadrant and left upper quadrant Pain does not radiate. Pain currently is 10 out of 10 on a pain scale. Quality of pain is described as sharp, Pain began gradually, 2-3 days ago. Is continuous. Neuro: Level of Consciousness is awake, alert, obeys commands, Oriented to person, place, time, situation, Appropriate for age. Cardiovascular: Patient's skin is warm and dry. Respiratory: Airway is patent Respiratory effort is even, unlabored, Respiratory pattern is regular, symmetrical. GI: Abdomen is flat, Bowel sounds present X 4 quads. Abd is soft X 4 quads. : No signs and/or symptoms were reported regarding the genitourinary system. EENT: No signs and/or symptoms were reported regarding the EENT system. Derm: Skin is intact, is healthy with good turgor, Skin is pink, warm \T\ dry. Musculoskeletal: No signs and/or symptoms reported regarding the musculoskeletal system. 20:32 General: Report called to IASAK Melendrez at [facility]. me1 Vital Signs: 15:14 BP 168 / 103; Pulse 72; Resp 18; Temp 99.1(O); Pulse Ox 97% on R/A; Weight 12.7 kg; cm10 Height 6 ft. 0 in. ; Pain 10/10; 17:00 BP 160 / 98; Pulse 57; Resp 16; Pulse Ox 100% ; me1 18:00 BP 148 / 102; Pulse 53; Resp 16; Pulse Ox 99% ; me1 19:00 BP 124 / 75; Pulse 60; Resp 16; Pulse Ox 100% ; me1 19:38 Weight 58.97 kg; kmf 19:49 Pain 5/10; me1 20:00 BP 139 / 101; Pulse 57; Resp 17; Pulse Ox 98% ; me1 21:00 BP 130 / 97; Pulse 55; Resp 16; Temp 98.4; Pulse Ox 100% ; me1 15:14 Body Mass Index 3.80 (58.97 kg, 182.88 cm) cm10 15:14 Pain Scale: Adult cm10 19:49 Pain Scale: Adult al1 ED Course: 14:57 Patient arrived in ED. mg5 15:16 Triage completed. cm10 15:17 Arm band placed on left wrist. Patient placed in waiting room. cm10 15:20 Christianne Shaw is Attending Physician. ci 15:46 Radiology exam delayed due to lab results not completed at this time. (BUN/Creatinine) jc4 IV insertion attempt and/or patient not having appropriate IV at this time. 16:28 Patient placed in an exam room, on a stretcher. ll1 16:35 Kady Hampton, RN is Primary Nurse. me1 16:39 Radiology exam delayed due to IV insertion attempt and/or patient not having rs4 appropriate IV at this time. Radiology exam delayed due to lab results not completed at this time. (BUN/Creatinine). 16:45 Patient has correct armband on for positive identification. Bed in low position. Call [facility] light in reach. Side rails up X2. Provided Education on: POC. Verbalized understanding.. Client placed on continuous cardiac and pulse oximetry monitoring. NIBP monitoring applied. Pulse ox on. NIBP on. 16:45 No provider procedures requiring assistance completed. me1 16:54 CBC with Diff Sent. me1 16:54 CMP Sent. me1 16:54 Lipase Sent. me1 16:54 Urinalysis w/ reflexes Sent. me1 16:54 Initial lab(s) drawn, by me, sent to lab. Urine collected: clean catch specimen, me1 cloudy. Inserted saline lock: 22 gauge in right wrist, using aseptic technique. 17:34 CT Abd/Pelvis - IV Contrast Only In Process Unspecified. EDMS 19:32 initiated transfer with [facility]- Pt requested [facility] but [facility] is closed to GI [facility] currently. Per Josephine. 19:50 pt was accepted to [facility]. Pt will go to the ER. Admin approval given by [facility] Josephine Huggins \T\[address] Tee Townsend \T\ 1948. Number for nurse to nurse report [phone]. [facility] on current transfer per Sarah with EMS. 20:32 Patient transferred, IV remains in place. me1 Administered Medications: 16:55 Drug: Ondansetron IVP 4 mg IVP once; over 2 minutes Route: IVP; Site: right wrist; me1 17:08 Follow up: Response: No adverse reaction; Nausea is decreased me1 16:55 Drug: morphine IVP or IV 4 mg IVP once over 4 mins Route: IVP; Infused Over: 4 mins; me1 Site: right wrist; 17:08 Follow up: Response: No adverse reaction; Pain is unchanged, physician notified me1 16:55 Drug: NS 0.9% IV 1000 ml IV at 1 bolus Per protocol; to be given as a bolus over 60 me1 minutes Route: IV; Rate: 1 bolus; Site: right wrist; 19:48 Follow up: Response: No adverse reaction; IV Status: Completed infusion; IV Intake: me1 1000ml 18:53 Drug: fentaNYL (PF) IVP 50 mcg IVP once Route: IVP; Site: right forearm; me1 19:32 Follow up: Response: No adverse reaction; Pain is unchanged, physician notified me1 19:22 Not Given (Duplicate Order): morphineor iv 4 mg IVP once over 4 mins ci 19:40 Drug: Ondansetron IVP 4 mg IVP once; over 2 minutes Route: IVP; Site: right forearm; me1 19:49 Follow up: Response: No adverse reaction; Nausea is decreased me1 19:41 Drug: Potassium Chloride PO 40 mEq PO once Route: PO; me1 19:48 Follow up: Response: No adverse reaction me1 19:41 Drug: HYDROmorphone IVP 0.5 mg IVP once Route: IVP; Site: right forearm; me1 19:49 Follow up: Pain 5/10 Adult; Response: No adverse reaction; Pain is decreased me1 21:26 Drug: HYDROmorphone IVP 2 mg IVP once Route: IVP; Site: right forearm; me1 21:29 Follow up: Response: No adverse reaction; Pain is decreased me1 Medication: 16:45 VIS not applicable for this client. me1 Intake: 19:48 IV: 1000ml; Total: 1000ml. me1 Outcome: 19:43 ER care complete, transfer ordered by MD. ci 21:28 Transferred by ground EMS Transfer form completed. X-rays sent w/ patient. Note: unit me1 layaway clerk. Transferred to [facility] 21:28 Condition: stable 21:28 Instructed on the need for transfer, 21:29 Patient left the ED. me1 Signatures: Dispatcher [employer] Swati Lackey RN RN ll1 Trupti Blanchard rs4 Alba Florez RN RN cm10 Kady Hampton RN RN me1 Radha Salazar mg5 Christianne Shaw Kelsey Maroul [facility] Jelani Cunha jc4 Corrections: (The following items were deleted from the chart) 16:55 15:14 Chief complaint: Patient states: Was seen here Friday for upper abdominal pain me1 and was given prescriptions and has not been able to keep medications down and continues to have abdominal pain. Pt states that he spoke with his GI doctor (Dr. Morgan) and was told that he needed to be admitted to the hospital. cm10
[2024-02-11] MEDS ORDERED: HYDROMORPHONE HCL 2 MG/ML inj ONE (21:24)
[2024-02-11 21:40] VITALS: BP 130/97; TEMP 98.4; O2SAT 100
== END 2024-02-11 21:29 | disposition short-term general hospital (02) ==
LOC: ER 14:53
DX: K86.1 Other chronic pancreatitis (principal); E87.6 Hypokalemia
CPT/HCPCS: 36415; 74177; 80053; 81001; 83690; 85025; 99285; J1171; J2405; J3010; J7030; Q9967

== ENCOUNTER 2024-02-15 09:21 | Emergency (ER) | payer BC ==
[2024-02-15] MEDS ORDERED: NA CHLORIDE 0.9% 1,000 ML ONE (10:06)
[2024-02-15 10:57] LABS: Absolute Eosinophils 0.1 K/uL (0-0.5); Absolute Lymphocytes (CBC) 1.8 K/uL (0.7-4.9); Absolute Monocytes 0.7 K/uL (0.1-1.3); Absolute Neutrophil 4.9 K/uL (1.8-8.0); Basophils % 0.5 % (0-1.3); Eosinophils % 1.5 % (0-4.4); Hematocrit 35.7 % (39.6-49.0); Hemoglobin 11.3 g/dL (13.6-17.9); Lymphocytes % 23.5 % (15.3-44.8); MCH 26.1 pg (27.0-35.0); MCHC 31.8 g/dL (32.0-36.0); MCV 82.1 fL (80-100); Monocytes % 9.3 % (3.3-12.3); Neutrophils % 65.2 % (41.7-73.7); Platelets 396 thou/uL (152-406); RBC Red Blood Cell Count 4.35 M/uL (4.33-5.43); Red Cell Distribution Width 15.2 % (12.1-15.2)
[2024-02-15 11:25] LABS: Albumin 3.5 g/dL (3.4-5.0); Albumin/Globulin Ratio 0.8 (1.1-1.8); Anion Gap 7.9 mEq/L (5.0-15.0); Bilirubin Total 0.5 mg/dL (0.2-1.0); Globulin 4.4 g/dL (2.3-3.5); Protein, Total 7.9 g/dL (6.4-8.2)
[2024-02-15 11:35] LABS: Potassium 3.9 mEq/L (3.5-5.1)
[2024-02-15 11:45] LABS: Sqamous Epithelial None Seen /HPF (None Seen); Urine Bacteria None Seen /HPF (<20); Urine Bilirubin NEGATIVE (Negative); Urine Blood Negative (Negative); Urine Clarity Clear (Clear); Urine Color Light-Yellow (Yellow); Urine Culture Reflex Order NOT NEEDED; Urine Glucose NEGATIVE (Negative); Urine Ketones NEGATIVE (Negative); Urine Microscopic Reflex YN ORDER UMIC; Urine Mucus Slight /HPF (None Seen); Urine Nitrite NEGATIVE (Negative); Urine Protein NEGATIVE (Negative); Urine RBC <5 /HPF (None Seen); Urine Urobilinogen Normal (Normal); Urine WBC <5 /HPF (<5); Urine pH 7.5 (5.0-7.0)
--- NOTE | 2024-02-15 12:05 | RAD REPORT ---
EXAMINATION: CT ABDOMEN AND PELVIS WITH CONTRAST CLINICAL INDICATION: Male, 38 years old.ABD PAIN TECHNIQUE: CT abdomen and pelvis was performed, after the administration of IV [facility] Axial, sagittal and coronal reconstructions were obtained. One or more of the following dose reduction techniques were used: Automated exposure control, adjustment of the mA and/o r kV according to patient size, and/or iterative reconstruction. Unless otherwise specified, incidental findings do not require dedicated imaging follow-up. [id number]. COMPARISON: 02/11/2024 FINDINGS: LOWER CHEST: The visualized lung bases are clear. LIVER: Normal in size and contour. No focal lesion. GALLBLADDER/BILE DUCT: Cholecystectomy.? PANCREAS: No significant abnormality. SPLEEN: Normal size. No focal lesion. ADRENALS: Normal; no mass. KIDNEYS AND URETERS: Normal size and contour. No hydronephrosis. GASTROINTESTINAL TRACT: Stomach is non-dilated. Small bowel has normal course and caliber. No colonic wall thickening or pericolonic inflammatory changes. No appendix identified. No secondary signs acute appendicitis. PERITONEUM: No ascites. LYMPH NODES: No lymphadenopathy. ABDOMINAL AORTA AND OTHER VESSELS: Normal caliber aorta and IVC. URINARY BLADDER: Normal contour. REPRODUCTIVE ORGANS: No pathologic process MUSCULOSKELETAL: No acute or suspicious osseous abnormality. ADDITIONAL FINDINGS: None. IMPRESSION: No acute or significant abnormalities seen in the abdomen or pelvis.
--- NOTE | 2024-02-15 12:09 | EDPHYS ---
Physician Documentation [facility] Name: Justice Joshi Age: 38 yrs Sex: Male : 1985 Arrival Date: 02/15/2024 Time: 09:21 Bed 15 Private MD: ED Physician Lang Manrique HPI: 02/14 10:28 This 38 yrs old Male presents to ER via EMS with complaints of Vomiting - blood, Bloody sp3 Stools. 10:28 38-year-old male with history of asthma and chronic pancreatitis presents with sp3 recurrent abdominal pain and states he has had bloody stools. Patient was seen earlier this month and transferred to [facility] and diagnosed with enteritis and sent home on antibiotics. Patient denies fever, chest pain, shortness of breath, syncope, or any other signs or symptoms on ROS at this time.. Historical: - Allergies: 09:25 PENICILLINS; iw - PMHx: 09:25 Anxiety; Asthma; Chronic Pancreatitis; iw - PSHx: 09:25 Appendectomy; Cholecystectomy; hernia repair; pancreatic stent; iw - Immunization history:: Adult Immunizations not up to date. - Infectious Disease History:: Denies. - Social history:: Smoking status: Patient denies any tobacco usage or history of. ROS: 10:30 Constitutional: Negative for fever, chills, and weight loss, Eyes: Negative for injury, sp3 pain, redness, and discharge, ENT: Negative for injury, pain, and discharge, Neck: Negative for injury, pain, and swelling, Cardiovascular: Negative for chest pain, palpitations, and edema, Respiratory: Negative for shortness of breath, cough, wheezing, and pleuritic chest pain, Back: Negative for injury and pain, MS/Extremity: Negative for injury and deformity, Skin: Negative for injury, rash, and discoloration, Neuro: Negative for headache, weakness, numbness, tingling, and seizure, Psych: Negative for depression, anxiety, suicide ideation, homicidal ideation, and hallucinations, Allergy/Immunology: Negative for hives, rash, and allergies, Endocrine: Negative for neck swelling, polydipsia, polyuria, polyphagia, and marked weight changes, 10:30 All other systems are negative, Exam: 10:31 Constitutional: This is a well developed, well nourished patient who is awake, alert, sp3 and in no acute distress. Head/Face: Normocephalic, atraumatic. Eyes: Pupils equal round and reactive to light, extra-ocular motions intact. Lids and lashes normal. Conjunctiva and sclera are non-icteric and not injected. Cornea within normal limits. Periorbital areas with no swelling, redness, or edema. Neck: Trachea midline, no thyromegaly or masses palpated, and no cervical lymphadenopathy. Supple, full range of motion without nuchal rigidity, or vertebral point tenderness. No Meningismus. Chest/axilla: Normal chest wall appearance and motion. Nontender with no deformity. No lesions are appreciated. Cardiovascular: Regular rate and rhythm with a normal S1 and S2. No gallops, murmurs, or rubs. Normal PMI, no JVD. No pulse deficits. Respiratory: Lungs have equal breath sounds bilaterally, clear to auscultation and percussion. No rales, rhonchi or wheezes noted. No increased work of breathing, no retractions or nasal flaring. Back: No spinal tenderness. No costovertebral tenderness. Full range of motion. Skin: Warm, dry with normal turgor. Normal color with no rashes, no lesions, and no evidence of cellulitis. MS/ Extremity: Pulses equal, no cyanosis. Neurovascular intact. Full, normal range of motion. Neuro: Awake and alert, GCS 15, oriented to person, place, time, and situation. Cranial nerves II-XII grossly intact. Motor strength 5/5 in all extremities. Sensory grossly intact. Cerebellar exam normal. Normal gait. Psych: Awake, alert, with orientation to person, place and time. Behavior, mood, and affect are within normal limits. 10:31 Constitutional: The patient appears Patient rolling around on the floor complaining of pain but when healthcare provider not in the room he was comfortably talking on the phone in no acute distress. Multiple track farmer on her arm. Poor dentition noted. Vital Signs: 09:33 BP 142 / 110; Pulse 82; Resp 19; Temp 98.1; Pulse Ox 98% ; Weight 57.61 kg; Height 6 iw ft. 0 in. ; Pain 10/10; 12:15 mb9 09:33 Body Mass Index 17.22 (57.61 kg, 182.88 cm) iw 09:33 Pain Scale: Adult iw 12:15 pt refuses repeat VS mb9 MDM: 09:32 Medical Screening Exam initiated sp3 10:31 Data reviewed: vital signs, nurses notes, old medical records, lab test result(s), sp3 radiologic studies. ED course: 38-year-old male with recurrent abdominal pain. History of chronic pancreatitis the last visit he had enteritis without any pancreatic or biliary abnormalities. Will reassess given his complaint with CT and labs however we will hold pain medication unless significant findings are found. Vital signs are stable. Differential diagnosis includes chronic abdominal pain, pancreatitis, biliary pathology, recurrent enteritis, abdominal wall pain, functional abdominal pain, among others. Disposition pending workup patient course.. 12:09 ED course: Patient with normal CT and normal labs. We will discharge patient home at 3 this time with chronic pain and no further intervention indicated in the ER.. 11 09:34 Order name: CBC with Diff; Complete Time: 11:28 sp3 02/14 09:34 Order name: CMP; Complete Time: 11:50 3 02/14 09:34 Order name: Lipase; Complete Time: 11:50 sp3 02/14 09:34 Order name: Urinalysis w/ reflexes; Complete Time: 11:50 sp3 02/14 09:56 Order name: CT Abd/Pelvis - IV Contrast Only; Complete Time: 12:08 sp3 02/14 09:34 Order name: IV Saline Lock; Complete Time: 11:16 sp3 02/14 09:34 Order name: Labs collected and sent; Complete Time: 10:22 sp3 02/14 10:30 Order name: Labs - recollect needed: green and lavender; Complete Time: 11:02 iw Administered Medications: 11:02 Drug: NS 0.9% IV 1000 ml IV at 1 bolus Per protocol; to be given as a bolus over 60 mb9 minutes Route: IV; Rate: 1 bolus; Site: right wrist; 11:28 Follow up: Response: No adverse reaction; IV Status: Completed infusion mb9 Disposition Summary: 02/15/24 12:09 Discharge Ordered Notes: Location: Home sp3 Condition: Stable sp3 Diagnosis - Chronic pain, abdominal pain sp3 Followup: sp3 - With: Private Physician - When: Upon discharge from the Emergency Department - Reason: Continuance of care Discharge Instructions: - Discharge Summary Sheet sp3 - Chronic Pain, Adult sp3 Forms: - Medication Reconciliation Form sp3 - Antibiotic Education sp3 - Prescription Opioid Use sp3 - Patient Portal Instructions sp3 - Leadership Thank You Letter sp3 Signatures: Dispatcher [employer] Alexia Wall, Lang Garza RN, MD MD sp3 Rasheeda Coto RN RN mb9
--- NOTE | 2024-02-15 12:09 | ER ---
Nurse's Notes [facility] Name: Justice Joshi Age: 38 yrs Sex: Male : 1985 Arrival Date: 02/15/2024 Time: 09:21 Bed 15 Private MD: Diagnosis: Chronic pain, abdominal pain Presentation: 02/14 09:24 Chief complaint: EMS states: abd pain, n/v started this morning , pt states he is iw vomiting blood and pooping blood. Coronavirus screen: Client presents with at least one sign or symptom that may indicate coronavirus-19. Ebola Screen: No symptoms or risks identified at this time. Initial Sepsis Screen: Does the patient meet any 2 criteria? No. Patient's initial sepsis screen is negative. Does the patient have a suspected source of infection? No. Patient's initial sepsis screen is negative. Risk Assessment: Do you want to hurt yourself or someone else? Patient reports no desire to harm self or others. Onset of symptoms was February 15, 2024. 09:24 Method Of Arrival: EMS: [facility] iw 09:24 Acuity: JOE 3 iw Historical: - Allergies: 09:25 PENICILLINS; iw - PMHx: 09:25 Anxiety; Asthma; Chronic Pancreatitis; iw - PSHx: 09:25 Appendectomy; Cholecystectomy; hernia repair; pancreatic stent; iw - Immunization history:: Adult Immunizations not up to date. - Infectious Disease History:: Denies. - Social history:: Smoking status: Patient denies any tobacco usage or history of. Screenin:23 [facility] ED Fall Risk Assessment (Adult) History of falling in the last 3 months, mb9 including since admission No falls in past 3 months (0 pts) Confusion or Disorientation No (0 pts) Intoxicated or Sedated No (0 pts) Impaired Gait No (0 pts) Mobility Assist Device Used No (0 pt) Altered Elimination No (0 pt) Score/Fall Risk Level 0 - 2 = Low Risk Oriented to surroundings, Maintained a safe environment, Educated pt \\T\\ family on fall prevention, incl call for assistance when getting out of bed. Abuse screen: Denies threats or abuse. Nutritional screening: No deficits noted. Tuberculosis screening: No symptoms or risk factors identified. Assessment: 10:22 General: Appears in no apparent distress. Behavior is cooperative. Pain: Complains of mb9 pain in abdomen Pain does not radiate. Pain currently is 10 out of 10 on a pain scale. Quality of pain is described as throbbing, Pain began 2-3 days ago. Neuro: Level of Consciousness is awake, alert, obeys commands, Oriented to person, place, time, situation, Appropriate for age. Cardiovascular: Patient's skin is warm and dry. Respiratory: Airway is patent Respiratory effort is even, unlabored, Respiratory pattern is regular, symmetrical. GI: Abdomen is flat, non-distended, Bowel sounds present X 4 quads. Abd is soft Abdomen is tender to palpation in left upper quadrant and left lower quadrant Reports bloody stool, nausea. : No signs and/or symptoms were reported regarding the genitourinary system. EENT: No signs and/or symptoms were reported regarding the EENT system. Derm: Skin is pink, warm \\T\\ dry. Musculoskeletal: Range of motion: intact in all extremities. 11:26 Reassessment: pt cussing at staff, "I'm going to rip this fucking IV out and leave. I mb9 need pain medication." Verbal reassurance given. ERP at bedside. Pt states he will wait for results. Pt refusing to be hooked up to VS monitor. Vital Signs: 09:33 BP 142 / 110; Pulse 82; Resp 19; Temp 98.1; Pulse Ox 98% ; Weight 57.61 kg; Height 6 iw ft. 0 in. ; Pain 10/10; 12:15 mb9 09:33 Body Mass Index 17.22 (57.61 kg, 182.88 cm) iw 09:33 Pain Scale: Adult iw 12:15 pt refuses repeat VS mb9 ED Course: 09:24 Patient arrived in ED. ra3 09:25 Triage completed. iw 09:30 Lang Manrique MD is Attending Physician. sp3 09:34 Arm band placed on. iw 10:08 Rasheeda Coto RN is Primary Nurse. mb9 10:22 CBC with Diff Sent. mb9 10:22 CMP Sent. mb9 10:22 Lipase Sent. mb9 10:22 Missed attempt(s): 22 gauge in left antecubital area. Bleeding controlled, band aid mb9 applied, catheter tip intact. 10:24 Patient requests pain medication. mb9 10:24 Bed in low position. Call light in reach. Side rails up X 1. Provided Education on: mb9 press call light if needing anything. Client placed on continuous cardiac and pulse oximetry monitoring. NIBP monitoring applied. 10:24 No provider procedures requiring assistance completed. mb9 10:45 Patient requests pain medication. mb9 10:51 Lab(s) recollected, by me, sent to lab. Inserted saline lock: 22 gauge in right wrist, iw using aseptic technique. Blood collected. Flushed with 10 mL NS. 11:17 CT Abd/Pelvis - IV Contrast Only In Process Unspecified. EDMS 12:10 IV discontinued, intact, bleeding controlled, No redness/swelling at site. Pressure mb9 dressing applied. Administered Medications: 11:02 Drug: NS 0.9% IV 1000 ml IV at 1 bolus Per protocol; to be given as a bolus over 60 mb9 minutes Route: IV; Rate: 1 bolus; Site: right wrist; 11:28 Follow up: Response: No adverse reaction; IV Status: Completed infusion mb9 Medication: 10:24 VIS not applicable for this client. mb9 Outcome: 12:09 Discharge ordered by MD. eng 12:16 Discharged to home ambulatory, mb9 12:16 Condition: stable 12:16 Discharge instructions given to patient, Instructed on discharge instructions, follow up and referral plans. Demonstrated understanding of pt refusing to sign D/C paperwork 12:16 Patient left the ED. mb9 Signatures: Dispatcher [employer] Alexia Wall, RN RN iw Lang Manrique MD MD sp3 Rasheeda Coto RN ISAAK [email or web address] [facility] ra3 Corrections: (The following items were deleted from the chart) 09:34 09:24 Chief complaint: EMS states: abd pain, n/v started this morning iw iw
[2024-02-15 12:25] VITALS: BP 142/110; TEMP 98.1; O2SAT 98
== END 2024-02-15 12:16 | disposition home or self-care (01) ==
LOC: ER 09:21
DX: G89.29 Other chronic pain (principal)
CPT/HCPCS: 85025; 81001; 36415; 83690; 80053; 74177; 99284; Q9967; J7030